=== PATIENT | male | born 1935 | race Caucasian/White ===

== ENCOUNTER 2016-06-21 07:31 | Observation (INO) | payer BC, OTHER ==
[~2016-06-21] VITALS: Ht 180.3 cm; Wt 71.1 kg
[~2016-06-21 07:31] MED LIST: AMLO-110 PO; AMR2 PO; ASPI-321 OR; ASPI81TA28 PO; CLOP1TAB15 PO; CLOP1TAB54 PO; GLC850 PO; GLIM4TAB2 PO; HYZ/10015 PO; JNV100 PO; LOSA100T26 PO; METF-383 PO; NITR0.4S UT; ROSU20TA PO; SITA100T3 PO
--- NOTE | 2016-06-21 08:04 | EMERGENCY ROOM VISIT NOTE ---
History Report prepared by Herrera: Shmuel Johnston Under the Supervision of: Dr. Wilbur Copeland M.D. First contact with patient: 07:51 Chief Complaint: SHORTNESS OF BREATH Stated Complaint: SOB History of Present Illness The patient is an 81 year old male who presents to the Emergency Room with complaints of intermittent shortness of breath that started a couple weeks ago. He notes that he has not had anything like this in the past. He was woken up during the night by this shortness of breath. The patient says that lying flat as well as exertion worsens his shortness of breath. He takes Nitro at night, and he says that it makes him breathe better. The patient denies any chest pain , coughing, back pain, urinary symptoms, melena, or hematochezia. He has not had any recent falls or weight gain. The patient had stents put in in [place] 20 years ago, per the patient's . 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 Lozano, and the patient is due to see the doctor in a few weeks. He goes every 6 months. The patient has a history of angioplasty and bypass surgery. The patient is on Plavix. He already took Aspirin this morning. He is diabetic. Source of History: patient, spouse/significant other Onset: A couple weeks ago Position: other (global - shortness of breath) Symptom Intensity: woke him up in middle of night Timing: intermittent Modifying Factors (Worsening): exertion, other (lying flat) Modifying Factors (Relieving): other (Nitro) Associated Symptoms: No back pain, No chest pain, No cough, No hematochezia , No melena, No urinary symptoms Note: No other associated symptoms noted. Review of Systems See HPI for pertinent positives & negatives. A total of 10 systems reviewed and were otherwise negative. Past Medical & Surgical Medical Problems: (1) CAD (coronary artery disease) (2) Dyslipidemia (3) HTN (hypertension) (4) SOB (shortness of breath) Surgical Problems: (1) History of appendectomy (2) S/P CABG x 3 (3) Stented coronary artery Old medical records were reviewed. Nurse's notes were reviewed and I agree with. Family History FH: heart disease Social History Smoking Status: Former Smoker Alcohol Use: none Drug Use: none Marital Status: Occupation Status: retired Current/Historical Medications Scheduled Amlodipine (Norvasc), 5 MG PO QAM Aspirin (Aspirin Adult Low Strengt), 81 MG OR DAILY Clopidogrel Bisulfate (Plavix), 75 MG PO DAILY Glimepiride (Amaryl *), 8 MG PO DAILY Hctz/Losartan (Hyzaar 25MG/100MG), 1 TAB PO DAILY Isosorbide Mononitrate Ext Rel (Imdur Ext Rel), 120 MG PO QAM Metformin Hcl (Glucophage), 850 MG PO TID Metoprolol Succ (Toprol Xl) (Toprol-Xl), 25 MG PO BID Nitroglycerin (Nitrostat), 0.4 MG UT PRN Ranolazine (Ranexa), 1 TAB PO BID Rosuvastatin Calcium (Crestor), 20 MG PO 5PM Sitagliptin Phosphate (Januvia), 100 MG PO QAM Allergies Coded Allergies: No Known Allergies (Verified , 06/21/16) Physical Exam Vital Signs Date Time Temp Pulse Resp B/P Pulse Ox O2 Delivery O2 Flow Rate FiO2 06/21/16 11:15 60 18 130/71 98 Room Air 06/21/16 11:03 63 06/21/16 09:52 61 18 115/72 95 Room Air 06/21/16 08:28 62 18 120/74 97 Room Air 06/21/16 07:58 98 Room Air 06/21/16 07:52 66 06/21/16 07:38 36.6 66 20 123/80 96 Room Air Physical Exam General: Well developed well nourished in no acute distress, breathing comfortably on room air. Normal speech HEENT: Normal cephalic atraumatic. Pupils are equal round and reactive to light. Extraocular movements are intact. Oropharynx is pink with moist mucous membranes. No swelling of the mouth lips or tongue. Neck: Supple with a midline trachea. No meningeal signs or stiffness, no JVD or bruits. No Stridor. Chest: Clear to auscultation bilaterally. No wheezes or rhonchi. No increased work of breathing. Heart: regular rate and rhythm. Abdomen: Soft nontender, nondistended without rebound guarding or rigidity. Extremities: No cyanosis clubbing or edema. No calf tenderness or assymetry Spine/Back. Non tender to palpation. No CVA tenderness Skin: Good turgor without rashes. Neurologic exam: Cranial nerves two through 12 are intact. Motor and sensation are intact and symmetrical throughout. Medical Decision & Procedures ER Provider Diagnostic Interpretation: X-ray results as stated below per interpretation by me and the radiologist: CHEST ONE VIEW PORTABLE CLINICAL HISTORY: Atypical chest pain and shortness of breath COMPARISON STUDY: 11/22/2011 FINDINGS: There are postsurgical changes of a midline sternotomy. There is no focal pulmonary consolidation. There is no failure. There are no pleural effusions. There is minimal basilar atelectasis. No pneumothorax is visualized.[ IMPRESSION: No active disease in the chest. Electronically signed by: Luis Whitaker M.D. 06/21/2016 8:24 AM Dictated Date/Time: 06/21/2016 8:24 AM Laboratory Results Test 06/21/16 07:57 06/21/16 08:12 06/21/16 08:35 06/21/16 09:25 Immature Granulocyte % (Auto) 0.2 % White Blood Count 6.26 K/uL (4.8-10.8) Red Blood Count 4.06 M/uL (4.7-6.1) Hemoglobin 13.3 g/dL (14.0-18.0) Hematocrit 37.0 % (42-52) Mean Corpuscular Volume 91.1 fL (80-100) Mean Corpuscular Hemoglobin 32.8 pg (25-34) Mean Corpuscular Hemoglobin Concent 35.9 g/dl (32-36) Platelet Count 131 K/uL (130-400) Mean Platelet Volume 10.0 fL (7.4-10.4) Neutrophils (%) (Auto) 62.5 % Lymphocytes (%) (Auto) 24.9 % Monocytes (%) (Auto) 10.2 % Eosinophils (%) (Auto) 1.9 % Basophils (%) (Auto) 0.3 % Neutrophils # (Auto) 3.91 K/uL (1.4-6.5) Lymphocytes # (Auto) 1.56 K/uL (1.2-3.4) Monocytes # (Auto) 0.64 K/uL (0.11-0.59) Eosinophils # (Auto) 0.12 K/uL (0-0.5) Basophils # (Auto) 0.02 K/uL (0-0.2) Immature Granulocyte # (Auto) 0.01 K/uL (0.00-0.02) Total Bilirubin 0.5 mg/dl (0.2-1) Direct Bilirubin 0.2 mg/dl (0-0.2) Aspartate Amino Transf (AST/SGOT) 21 U/L (15-37) Alanine Aminotransferase (ALT/SGPT) 23 U/L (12-78) Alkaline Phosphatase 49 U/L (45-117) Total Creatine Kinase 100 U/L (39-308) Total Protein 7.6 gm/dl (6.4-8.2) Albumin 3.7 gm/dl (3.4-5.0) Lipase 578 U/L (73-393) Bedside Troponin I 0.000 ng/ml (0-0.045) RO-Etz-W-Type Natriuretic Peptide 487 pg/ml (0-1800) Prothrombin Time 11.4 SECONDS (9.0-12.0) Prothromb Time International Ratio 1.1 (0.9-1.1) Activated Partial Thromboplast Time 27.6 SECONDS (21.0-31.0) Partial Thromboplastin Ratio 1.1 D-Dimer 270 ug/L FEU (0-500) Urine Color YELLOW Urine Appearance CLEAR (CLEAR) Urine pH 6.0 (4.5-7.5) Urine Specific [place] 1.020 (1.000-1.030) Urine Protein NEG (NEG) Urine Glucose (UA) 3+ (NEG) Urine Ketones NEG (NEG) Urine Occult Blood TRACE (NEG) Urine Nitrite NEG (NEG) Urine Bilirubin NEG (NEG) Urine Urobilinogen NEG (NEG) Urine Leukocyte Esterase TRACE (NEG) Urine WBC (Auto) 1-5 /hpf (0-5) Urine RBC (Auto) 5-10 /hpf (0-4) Urine Hyaline Casts (Auto) 0 /lpf (0-5) Urine Epithelial Cells (Auto) 0-5 /lpf (0-5) Urine Bacteria (Auto) NEG (NEG) Laboratory studies as stated above per my review. Medications Administered Medications (Trade) Dose Ordered Sig/Theodore Route Start Time Stop Time Status Last Admin Dose Admin Insulin Aspart (novoLOG ASPART) SLIDING SCALE If C... ACHS SC 06/21/16 11:00 07/21/16 10:59 06/21/16 17:34 2 UNITS ECG Indication: SOB/dyspnea Rate (beats per minute): 61 Rhythm: normal sinus Findings: no acute ischemic change, other (poor baseline, RBBB) Comparison ECG Date: no prior available ED Course 0752: Past medical records reviewed. The patient was evaluated in room A4B, and a complete history and physical examination were performed. 0949: I reevaluated the patient and he is resting comfortably. The patient verbally expressed understanding and agreement of the treatment plan. The patient will be evaluated for further treatment. 1005: I discussed the patient with Xiomy Al - she will evaluate the patient for further treatment. Medical Decision Differential diagnoses include: acute coronary syndrome, CHF, arrhythmia, electrolyte or metabolic abnormality. This patient comes in as described above. He does have a very complex cardiac history. He's been having shortness of breath and dyspnea on exertion. He did take his aspirin today. At present, he has no chest pain or shortness of breath. IV access established. EKG, chest x-ray, and multiple blood tests was obtained. His chest x-ray is clear and does not show any congestive heart failure. He has no peripheral edema. He has no significant electrolyte or metabolic abnormalities. EKG looks nonischemic at this point. I talked to the patient and his at length. I do think he needs to be admitted to rule out a cardiac event. He is a diabetic and has multiple cardiac risk factors as well. I did consult the [facility] hospitalist to see him for admission and contact cardiology consultation. Consults Time Called: 1000 Consulting Physician: Xiomy Al Returned Call: 1005 I discussed the patient with Xiomy Al - she will evaluate the patient for further treatment. Impression Primary Impression: Dyspnea on exertion Additional Impression: Cardiac disease Scribe Attestation The scribe's documentation has been prepared under my direction and personally reviewed by me in its entirety. I confirm that the note above accurately reflects all work, treatment, procedures, and medical decision making performed by me. Departure Information Dispostion Being Evaluated By Hospitalist Referrals Calin Mcleod M.D. (PCP) Patient Instructions My [facility] Problem Qualifiers
[2016-06-21 08:14] LABS: BASO % 0.3 %; BASO ABS # 0.02 K/uL (0-0.2); COMPLETE YES; EOS % 1.9 %; IG% 0.2 %; LYMPH % 24.9 %; LYMPH ABS # 1.56 K/uL (1.2-3.4); MEAN CELL VOLUME 91.1 fL (80-100); MEAN CORPUSCULAR HEMOGLOBIN 32.8 pg (25-34); MEAN CORPUSCULAR HGB CONC 35.9 g/dl (32-36); MONO % 10.2 %; NEUT % 62.5 %; PLATELET COUNT 131 K/uL (130-400); RED BLOOD COUNT 4.06 M/uL (4.7-6.1); WHITE BLOOD COUNT 6.26 K/uL (4.8-10.8)
--- NOTE | 2016-06-21 08:26 | DIAGNOSTIC IMAGING REPORT ---
CHEST ONE VIEW PORTABLE CLINICAL HISTORY: Atypical chest pain and shortness of breath COMPARISON STUDY: 11/22/2011 FINDINGS: There are postsurgical changes of a midline sternotomy. There is no focal pulmonary consolidation. There is no failure. There are no pleural effusions. There is minimal basilar atelectasis. No pneumothorax is visualized.[ IMPRESSION: No active disease in the chest. Electronically signed by: Luis Whitaker M.D. 06/21/2016 8:24 AM Dictated Date/Time: 06/21/2016 8:24 AM
[2016-06-21 08:32] LABS: BUN/CREATININE RATIO 16.4 (10-20); CREATININE 1.3 mg/dl (0.60-1.40); POTASSIUM 4.3 mmol/L (3.5-5.1)
[2016-06-21 08:48] LABS: CKMB/CK RATIO 1.8 (0-3.0)
[2016-06-21 09:13] LABS: INR 1.1 (0.9-1.1); PARTIAL THROMBOPLASTIN RATIO 1.1; PROTHROMBIN TIME (PATIENT) 11.4 SECONDS (9.0-12.0)
[2016-06-21 09:49] LABS: MANUAL MICROSCOPIC REQUIRED? NO; REVIEW REQ? NO; URINE APPEARANCE CLEAR (CLEAR); URINE BILIRUBIN NEG (NEG); URINE COLOR YELLOW; URINE EPITHELIAL CELL AUTO 0-5 /lpf (0-5); URINE NITRITE NEG (NEG); UROBILINOGEN NEG (NEG)
[2016-06-21] MEDS ORDERED: RANO500T PO (09:49)
[2016-06-21] MEDS ORDERED: GLUCAGON FOR INJ 1 MG VIAL SQ PRN (10:45)
[2016-06-21] MEDS ORDERED: ONDANSETRON INJ 2 MG/ML 2 ML VIAL IV PRN (10:45)
[2016-06-21] MEDS ORDERED: GLUCOSE 40% GEL 15 GM TUBE PO PRN (10:45)
[2016-06-21] MEDS ORDERED: GLUCOSE 10 TABS/TUBE PO PRN (10:45)
[2016-06-21] MEDS ORDERED: NITROGLYCERIN 0.4 MG SL PER TAB CHARGE SL PRN (10:45)
[2016-06-21] MEDS ORDERED: DEXTROSE 50% 50 ML SYR IV PRN (10:45)
[2016-06-21] MEDS ORDERED: ACETAMINOPHEN 325 MG TAB PO PRN (10:45)
[2016-06-21] MEDS ORDERED: HYZ/10015 PO (10:52)
[2016-06-21] MEDS ORDERED: METO25TA3 PO (10:52)
[2016-06-21] MEDS ORDERED: ISOS120T5 PO (10:52)
[2016-06-21 11:25] VITALS: O2SAT 98; Ht 180.3 cm; Wt 71.1 kg
--- NOTE | 2016-06-21 11:29 | History and Physical ---
History & Physical Date & Time of Service: Jun 21, 2016 at 10:53 Chief Complaint: SOB Primary Care Physician: Sylvia Rojas M.D. History of Present Illness Source: patient This is an 81 y/o male with PMHx of CAD s/p CABG and multiple stents, DM2, HTN and Dyslipidemia who presents to the ED c/o SOB x 2 weeks. Pt reports that 2 weeks ago he noticed intermittent worsening SOB. The SOB is worse with exertion and laying flat at night. He has tried taking nitro at home which gives him some relief. He has a strong FmHx of heart disease. His mother from [place] at the age of 40. Pt has a history of CAD s/p CABG x 3 in 2008 and stents placed 2009. Pt had heart catheterization in 2011 which showed stable disease and a negative stress test in 2014. He follows with cardiology, Dr. Lozano. Pt denies recent travel. Pt denies fever/chills, diaphoresis, chest pain, palpitations, syncope, abd pain, N/V, constipation, diarrhea, hematochezia, melena, bladder issues, LE edema, calf pain, lightheadedness/dizziness. In the ED, vitals are stable. Lipase 578. CXR is negative. Trop negative and EKG no acute ischemic changes. Pt is currently asymptomatic and will be admitted for further evaluation and treatment. Past Medical/Surgical History Medical Problems: (1) CAD (coronary artery disease) Status: Chronic (2) Dyslipidemia Status: Chronic (3) HTN (hypertension) Status: Chronic Surgical Problems: (1) History of appendectomy Status: Resolved (2) S/P CABG x 3 Permanent Comment: s/p CABG [facility] 2008 REYES-LAD, SVG-left circ, SVG-post desc art Status: Resolved (3) Stented coronary artery Permanent Comment: s/p PTCA 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)) Immunizations History of Influenza Vaccine: Yes History of Tetanus Vaccine?: No History of Pneumococcal: Yes Pneumococcal Date: Nov 20, 2004 History of Hepatitis B Vaccine: No Multi-Drug Resistant Organisms History of MDRO: No Allergies Coded Allergies: No Known Allergies (Verified , 06/21/16) Home Medications Scheduled Amlodipine (Norvasc), 5 MG PO QAM Aspirin (Aspirin Adult Low Strengt), 81 MG OR DAILY Clopidogrel Bisulfate (Plavix), 75 MG PO DAILY Glimepiride (Amaryl *), 8 MG PO DAILY Hctz/Losartan (Hyzaar 25MG/100MG), 1 TAB PO DAILY Isosorbide Mononitrate Ext Rel (Imdur Ext Rel), 120 MG PO QAM Metformin Hcl (Glucophage), 850 MG PO TID Metoprolol Succ (Toprol Xl) (Toprol-Xl), 25 MG PO BID Nitroglycerin (Nitrostat), 0.4 MG UT PRN Ranolazine (Ranexa), 1 TAB PO BID Rosuvastatin Calcium (Crestor), 20 MG PO 5PM Sitagliptin Phosphate (Januvia), 100 MG PO QAM Review of Systems Constitutional: No chills, No fatigue, No fever, No sweats, No weakness Eyes: No worsening of vision ENT: No hearing loss Respiratory: + dyspnea at rest, + dyspnea on exertion, + shortness of breath, No cough Cardiovascular: No chest pain, No claudication, No edema Abdomen: No GI bleeding, No constipation, No diarrhea, No nausea, No pain, No vomiting Musculoskeletal: No calf pain, No swelling Genitourinary - Male: No dysuria Neurologic: No weakness Psychiatric: No depression symptoms Endocrine: No fatigue Hematologic / Lymphatic: No abnormal bleeding/bruising Integumentary: No new/changing skin lesions Physical Exam Vital Signs Date Time Temp Pulse Resp B/P Pulse Ox O2 Delivery O2 Flow Rate FiO2 06/21/16 09:52 61 18 115/72 95 Room Air 06/21/16 08:28 62 18 120/74 97 Room Air 06/21/16 07:58 98 Room Air 06/21/16 07:52 66 06/21/16 07:38 36.6 66 20 123/80 96 Room Air General Appearance: WD/WN, no apparent distress, + pertinent finding (Pt is laying in bed with at bedside ) Head: normocephalic, atraumatic Eyes: normal inspection ENT: hearing grossly normal Neck: supple Respiratory/Chest: chest non-tender, lungs clear, normal breath sounds, no respiratory distress Cardiovascular: regular rate, rhythm, no edema, no murmur Abdomen/GI: normal bowel sounds, non tender, soft Back: normal inspection Extremities/Musculoskelatal: normal inspection, no calf tenderness, no pedal edema Neurologic/Psych: alert, normal mood/affect, oriented x 3 Skin: normal color, warm/dry Diagnostics Laboratory Results Results Past 24 Hours Test 06/21/16 07:57 06/21/16 07:58 06/21/16 08:12 06/21/16 08:35 Range/Units White Blood Count 6.26 4.8-10.8 K/uL Red Blood Count 4.06 4.7-6.1 M/uL Hemoglobin 13.3 14.0-18.0 g/dL Hematocrit 37.0 42-52 % Mean Corpuscular Volume 91.1 80-100 fL Mean Corpuscular Hemoglobin 32.8 25-34 pg Mean Corpuscular Hemoglobin Concent 35.9 32-36 g/dl Platelet Count 131 130-400 K/uL Mean Platelet Volume 10.0 7.4-10.4 fL Neutrophils (%) (Auto) 62.5 % Lymphocytes (%) (Auto) 24.9 % Monocytes (%) (Auto) 10.2 % Eosinophils (%) (Auto) 1.9 % Basophils (%) (Auto) 0.3 % Neutrophils # (Auto) 3.91 1.4-6.5 K/uL Lymphocytes # (Auto) 1.56 1.2-3.4 K/uL Monocytes # (Auto) 0.64 0.11-0.59 K/uL Eosinophils # (Auto) 0.12 0-0.5 K/uL Basophils # (Auto) 0.02 0-0.2 K/uL RDW Standard Deviation 45.8 36.4-46.3 fL RDW Coefficient of Variation 13.7 11.5-14.5 % Immature Granulocyte % (Auto) 0.2 % Immature Granulocyte # (Auto) 0.01 0.00-0.02 K/uL Sodium Level 135 136-145 mmol/L Potassium Level 4.3 3.5-5.1 mmol/L Chloride Level 102 98-107 mmol/L Carbon Dioxide Level 22 21-32 mmol/L Anion Gap 11.0 3-11 mmol/L Blood Urea Nitrogen 21 7-18 mg/dl Creatinine 1.30 0.60-1.40 mg/dl Est Creatinine Clear Calc Drug Dose 47.5 ml/min Estimated GFR () 59.7 Estimated GFR (Non- 51.5 BUN/Creatinine Ratio 16.4 10-20 Random Glucose 289 70-99 mg/dl Calcium Level 9.0 8.5-10.1 mg/dl Total Bilirubin 0.5 0.2-1 mg/dl Direct Bilirubin 0.2 0-0.2 mg/dl Aspartate Amino Transf (AST/SGOT) 21 15-37 U/L Alanine Aminotransferase (ALT/SGPT) 23 12-78 U/L Alkaline Phosphatase 49 45-117 U/L Total Creatine Kinase 100 39-308 U/L Creatine Kinase MB 1.8 0.5-3.6 ng/ml Creatine Kinase MB Ratio 1.8 0-3.0 Total Protein 7.6 6.4-8.2 gm/dl Albumin 3.7 3.4-5.0 gm/dl Lipase 578 73-393 U/L Bedside Troponin I 0.000 0-0.045 ng/ml VO-Fbc-C-Type Natriuretic Peptide 487 0-1800 pg/ml Prothrombin Time 11.4 9.0-12.0 SECONDS Prothromb Time International Ratio 1.1 0.9-1.1 Activated Partial Thromboplast Time 27.6 21.0-31.0 SECONDS Partial Thromboplastin Ratio 1.1 Test 06/21/16 09:25 Range/Units Urine Color YELLOW Urine Appearance CLEAR CLEAR Urine pH 6.0 4.5-7.5 Urine Specific [place] 1.020 1.000-1.030 Urine Protein NEG NEG Urine Glucose (UA) 3+ NEG Urine Ketones NEG NEG Urine Occult Blood TRACE NEG Urine Nitrite NEG NEG Urine Bilirubin NEG NEG Urine Urobilinogen NEG NEG Urine Leukocyte Esterase TRACE NEG Urine WBC (Auto) 1-5 0-5 /hpf Urine RBC (Auto) 5-10 0-4 /hpf Urine Hyaline Casts (Auto) 0 0-5 /lpf Urine Epithelial Cells (Auto) 0-5 0-5 /lpf Urine Bacteria (Auto) NEG NEG Microbiology Results 06/21/16 Urine Culture, Frida Batch Pending Diagnostic Radiology CXR IMPRESSION: No active disease in the chest. EKG EKG: NSR at 61 bpm with RBBB and no acute ischemic changes; No change when compared to previous EKG from 11/22/11 Impression Assessment and Plan EXERTIONAL SOB R/O ACS VS. PE pt presented with 2 weeks of SOB that is worse with exertion and laying flat; denies any chest pain; h/o CAD s/p CABG and stents -admit observation to telemetry -RFs include +FmHx, h/o CAD, DM 2, HTN, Dyslipidemia, age and sex -cardiac cath 2011: stable disease and stress echo 2014 negative for inducible ischemia -EKG shows no acute ischemic changes; repeat EKG PRN chest pain and in AM -Initial troponin is negative; continue to monitor with serial cardiac enzymes q6h -check ddimer to r/o PE -obtain echo to r/o cardiac wall motion abnormalities -cont ASA, BB, statin, Imdur and Ranexa -consult cardiology, Dr. Lozano-pending input -pt is currently chest pain free -continue to monitor CHRONICALLY ELEVATED LIPASE -lipase 578 (500-550 last admission 2011) -monitor DM 2 -recent A1C 7.0; repeat in AM -hold metformin, Januvia and glimepiride -start ISS -monitor BSG AC HS HTN -stable -cont Norvasc, Hyzaar and metoprolol -monitor DYSLIPIDEMIA -cont statin DVT PROPHYLAXIS -subq heparin CODE STATUS -FULL CODE per discussion with patient upon admission DISPO Observation status until further workup is complete. Pt seen in collaboration with Dr. Chambers. Please see his addendum for further details. Thanks! VTE Prophylaxis VTE Risk Assessment Done? Y/N: Yes Risk Level: Moderate
[2016-06-21 11:35] VITALS: BP 167/69; PULSE 63; TEMP 36.4; O2SAT 99
[2016-06-21] MEDS ORDERED: IV FLUIDS COMPLETED PRN (13:45)
[2016-06-21] MEDS: INSULIN ASPART 100 UNITS/ML 3 ML PEN SC SCH ×3 (13:55→20:38)
[2016-06-21] MEDS: HEPARIN SOD 5000 UNIT/0.5 ML CARP SQ SCH ×2 (13:56→20:40)
[2016-06-21 14:41] VITALS: BP 126/73; PULSE 55; TEMP 36.4; O2SAT 97
[2016-06-21] MEDS ORDERED: RANITIDINE HCL 150 MG TAB PO ONE (16:31)
--- NOTE | 2016-06-21 19:28 | CARDIOLOGY CONSULTATION ---
DATE OF CONSULTATION: 06/21/2016 CONSULTATION REQUESTED BY: Dr. Chambers. REASON FOR CONSULTATION: Shortness of breath. HISTORY OF PRESENT ILLNESS: Mr. Garcia is a very pleasant 81-year-old gentleman who normally follows with Dr. Azael Lozano of our cardiology practice who presented to [facility] Emergency Department late in the evening of 06/20/2016 with a complaint of shortness of breath. The patient states that for the last week or so he has noticed that he has been developing some shortness of breath with exertion and also upon lying down. He states it not consistent and does not happen every time he exerts himself, but occasionally he will develop shortness of breath and will take a nitroglycerin for it. This is different than his normal anginal equivalent of chest discomfort. He states that once he takes nitroglycerin, shortness of breath has completely resolved. He has also noticed that he has been having some shortness of breath upon lying down in the evening as well. He states when he lays down he just gets short of breath and if he sits upright he will feel the shortness of breath will resolve after a moment or so. Again, he denies any chest pain with this and denies experiencing any palpitations, lightheadedness, dizziness, or syncope. He has been taking his medications as directed without issue. He denies any other complaints of abdominal distention, lower extremity edema or cough. He has been following his dietary restrictions and otherwise feeling well. PAST SURGICAL HISTORY: 1. Coronary artery bypass grafting surgery x3 in 2008 with a REYES to the LAD, vein graft to the circumflex and vein graft to the PDA. 2. Followup PCI with drug-eluting stents to the circumflex, obtuse marginal and right coronary artery in 2009 with a patent REYES graft. 3. Cardiac catheterization in 2011 showing no progressive disease. 4. Colonoscopy. 5. Appendectomy. 6. Mohs surgery. MEDICAL ILLNESSES: 1. Complex coronary artery disease. 2. Stable class 2 angina. 3. Hypertension. 4. Hyperlipidemia. FAMILY HISTORY: Noncontributory. SOCIAL HISTORY: Remote tobacco use history. Denies any alcohol or recreational drug use. He is and lives at home with his . REVIEW OF SYSTEMS: As per HPI, all other review of systems reviewed and negative at this time. ALLERGIES: No known drug allergies. MEDICATIONS AN OUTPATIENT: 1. Ranexa 500 mg b.i.d. 2. Amlodipine 5 mg daily. 3. Toprol-XL 50 mg daily. 4. Aspirin 81 mg daily. 5. Plavix 75 mg daily. 6. Imdur 120 mg daily. 7. Crestor 20 mg daily. 8. Losartan/hydrochlorothiazide 100/25 mg daily. 9. Metformin 3 times a day. 10. Amaryl daily. 11. Sublingual nitroglycerin p.r.n. PHYSICAL EXAMINATION: VITALS: Temperature 36.4, pulse 55, respiratory rate 12, blood pressure 126/73. GENERAL: Awake, alert, oriented x3, in no acute distress while lying flat. HEENT: Normocephalic, atraumatic. Pupils equal, round, and reactive to light and accommodation. Extraocular muscles intact. Anicteric sclerae. Moist mucous membranes. NECK: No JVD, no bruit. CARDIOVASCULAR: Regular. Positive S4. Normal S1 and S2. No S3. Slight 2/6 holosystolic ejection murmur greatest at the left sternal border, fifth intercostal space midclavicular line with radiation to the left axilla. No rubs. PULMONARY: Clear to auscultation bilaterally. No rales, rhonchi, or wheezing. ABDOMEN: Bowel sounds x4, soft. No rebound, guarding, tenderness. No organomegaly. EXTREMITIES: No clubbing, cyanosis or edema. +2 pedal pulses bilaterally. SKIN: Warm and dry. TEST RESULTS: A 12-lead EKG performed in the Emergency Department independently reviewed at this time shows normal sinus rhythm at 61 beats per minute with right bundle branch block, anterior T-wave inversions, no significant change compared to previous study. LABORATORY STUDIES OF SIGNIFICANCE: Troponin negative x2. CPK of 100. Chest x-ray independently reviewed shows no overt pulmonary vascular congestion or pleural effusions. IMPRESSION: 1. Dyspnea with exertion. 2. Orthopnea. 3. Coronary artery disease. 4. Hypertension. RECOMMENDATIONS: It was my pleasure to see Mr. Garcia in consultation today. Given the patient's history, I would suspect that he will be volume overloaded suffering from at least pulmonary vascular congestion; however, his exam proves otherwise. So at this point a 2D echocardiogram will be performed to evaluate for any new wall motion abnormalities or valvular pathology that may be the cause of his dyspnea. At the same time, I will increase his Ranexa to 1000 mg b.i.d. His blood pressure will not tolerate any further titration of his amlodipine. All of his other medications will be continued. I will also start him on treatment for GERD as reflux is a possibility for his shortness of breath given it happens when lying flat and will likely complete an ischemic evaluation as an outpatient with Lexiscan nuclear stress testing if all other testing comes back unremarkable.
[2016-06-21 19:40] VITALS: BP 149/76; PULSE 56; TEMP 36.8; O2SAT 99
[2016-06-21] MEDS: RANOLAZINE 500 MG ER TAB PO SCH (20:40)
[2016-06-21] MEDS: METOPROLOL SUCC 25MG EXT REL TAB PO SCH (20:40)
[2016-06-21] MEDS: PANTOprazole SOD 40 MG TAB PO SCH (20:40)
[2016-06-21] MEDS: RANITIDINE HCL 150 MG TAB PO SCH (20:40)
[2016-06-21] MEDS ORDERED: RANOLAZINE 500 MG ER TAB PO SCH (21:00)
[2016-06-21 23:32] VITALS: BP 110/61; PULSE 52; TEMP 36.3; O2SAT 96
[2016-06-22] VITALS (7 sets, daily range): BP systolic 123–168; BP diastolic 68–77; PULSE 55–66; TEMP 36.3–36.7; O2SAT 96–98
[2016-06-22 06:14] LABS: HEMATOCRIT 38.8 % (42-52); MEAN CELL VOLUME 92.4 fL (80-100); MEAN CORPUSCULAR HEMOGLOBIN 32.4 pg (25-34); MEAN CORPUSCULAR HGB CONC 35.1 g/dl (32-36); MEAN PLATELET VOLUME 9.7 fL (7.4-10.4); PLATELET COUNT 127 K/uL (130-400)
[2016-06-22 06:27] LABS: CREATININE 1.2 mg/dl (0.60-1.40)
[2016-06-22] MEDS: HEPARIN SOD 5000 UNIT/0.5 ML CARP SQ SCH ×2 (06:27→14:00)
[2016-06-22 06:28] LABS: BUN/CREATININE RATIO 16.6 (10-20); CALCIUM 8.8 mg/dl (8.5-10.1); POTASSIUM 4.1 mmol/L (3.5-5.1)
[2016-06-22 07:19] LABS: ESTIMATED AVERAGE GLUCOSE 174 mg/dl; HA1C FLAG Normal (Normal)
[2016-06-22] MEDS: RANITIDINE HCL 150 MG TAB PO SCH (08:52)
[2016-06-22] MEDS: PANTOprazole SOD 40 MG TAB PO SCH (08:52)
[2016-06-22] MEDS: RANOLAZINE 500 MG ER TAB PO SCH (08:53)
[2016-06-22] MEDS: METOPROLOL SUCC 25MG EXT REL TAB PO SCH (08:54)
[2016-06-22] MEDS: INSULIN ASPART 100 UNITS/ML 3 ML PEN SC SCH ×2 (08:59→13:04)
[2016-06-22] MEDS ORDERED: ISOSORBIDE MONONITRATE 60 MG TABCR PO SCH (09:00)
[2016-06-22] MEDS ORDERED: LOSARTAN/HCTZ 50-12.5 EA TAB PO SCH (09:00)
[2016-06-22] MEDS ORDERED: CLOPIDOGREL BISULFATE 75 MG TAB PO SCH (09:00)
[2016-06-22] MEDS ORDERED: ROSUVASTATIN CALCIUM 20 MG TAB PO SCH (09:00)
[2016-06-22] MEDS ORDERED: AMLODIPINE BESYLATE 5 MG TAB PO SCH (09:00)
[2016-06-22] MEDS ORDERED: ASPIRIN 81 MG ECTAB PO SCH (09:00)
--- NOTE | 2016-06-22 09:20 | ECHOCARDIOGRAM REPORT ---
*NOTICE TO RECEIVING CONSTITUTION PARTY AGENCY This information is strictly Confidential and protected under [place] law. [place] law prohibits you from making any further disclosure of this information unless further disclosure is expressly permitted by the written consent of the person to whom it pertains or is authorized by law. A general authorization for the release of medical or other information is not sufficient for this purpose. Hospital accepts no responsibility if the information is made available to any other person, INCLUDING THE PATIENT. Interpretation Summary * Name: JENNA ROJAS Study Date: 06/22/2016 07:32 AM BP: 168/77 mmHg * Patient Location: [facility]\S\N282\S\2 HR: 58 * : 1935 (M/d/yyyy) Gender: Male Height: 71 in * Age: 81 yrs Ethnicity: [place] Weight: 163 lb * Ordering Physician: Xiomy Dorsey * Referring Physician: Self, Referred * Performed By: Ruby Lemus RCS * * Reason For Study: SOB * BSA: 1.9 m2 * -- Conclusions -- * No significant change compared to previous study of 09/15/09. * Normal LV chamber size with moderate concentric LVH. * Normal LV systolic function, EF 55-60%. * Mild to moderate hypokinesis of the basal inferoseptal/inferior sawant, otherwise, normal wall motion. * Grade I diastolic dysfunction. * The right ventricular cavity size is normal (basal dimension <4.2 cm in right ventricular apical 4-chamber view). Mildly reduced RV systolic function by TAPSE. * Aortic valve sclerosis moderate, without significant aortic valvular stenosis. * Mild left atrial enlargment. Procedure Details * A complete two-dimensional transthoracic echocardiogram was performed (2D, M-mode, Doppler and color flow Doppler). Left Ventricle * The left ventricle is normal in size. * There is moderate concentric left ventricular hypertrophy. * Left ventricular systolic function is normal. * Ejection Fraction = 55-60%. * Mild to moderate hypokinesis of the basal inferoseptal/inferior sawant, otherwise, normal wall motion. Right Ventricle * The right ventricular cavity size is normal (basal dimension <4.2 cm in right ventricular apical 4-chamber view). * The right ventricular systolic function is mildly reduced. Atria * The left atrium is mildly dilated. * Right atrial size is normal. * No ASD detected; PFO is not assessed. Mitral Valve * The mitral valve leaflets appear thickened, but open well. * There is no mitral valve stenosis. * There is no mitral regurgitation noted. Tricuspid Valve * The tricuspid valve is normal in structure and function. Aortic Valve * The aortic valve is trileaflet. * Aortic valve sclerosis moderate, without significant aortic valvular stenosis. * There is no significant aortic regurgitation. Pulmonic Valve * The pulmonary valve is not well seen, but the Doppler examination is normal without significant regurgitation or stenosis. Great Vessels * The aortic root and proximal ascending aorta are normal sized. Pericardium/Pleural * There is no pericardial effusion. Left Ventricular Diastolic Function * Grade I diastolic dysfunction, (abnormal relaxation pattern). MMode 2D Measurements and Calculations IVSd 1.5 cm IVSs 2.2 cm LVIDd 4.0 cm LVIDs 2.5 cm LVPWd 1.4 cm LVPWs 1.7 cm IVS/LVPW 1.1 FS 38.4 % EDV(Teich) 70.3 ml ESV(Teich) 21.6 ml EF(Teich) 69.2 % EDV(cubed) 64.3 ml ESV(cubed) 15.1 ml EF(cubed) 76.6 % % IVS thick 43.1 % % LVPW thick 27.3 % LV mass(C)d 219.9 grams LV mass(C)dI 113.7 grams/m\S\2 LV mass(C)s 204.8 grams LV mass(C)sI 105.9 grams/m\S\2 SV(Teich) 48.7 ml SI(Teich) 25.2 ml/m\S\2 SV(cubed) 49.3 ml SI(cubed) 25.5 ml/m\S\2 Ao root diam 4.6 cm Ao root area 16.4 cm\S\2 LA dimension 4.1 cm LA/Ao 0.90 LVOT diam 2.0 cm LVOT area 3.2 cm\S\2 LVAd ap4 32.9 cm\S\2 LVLd ap4 7.9 cm EDV(MOD-sp4) 111.7 ml EDV(sp4-el) 116.9 ml LVAs ap4 22.2 cm\S\2 LVLs ap4 7.0 cm ESV(MOD-sp4) 57.4 ml ESV(sp4-el) 60.0 ml EF(MOD-sp4) 48.6 % EF(sp4-el) 48.6 % LVAd ap2 29.5 cm\S\2 LVLd ap2 7.9 cm EDV(MOD-sp2) 93.0 ml EDV(sp2-el) 94.0 ml LVAs ap2 17.4 cm\S\2 LVLs ap2 6.7 cm ESV(MOD-sp2) 38.2 ml ESV(sp2-el) 38.3 ml EF(MOD-sp2) 59.0 % EF(sp2-el) 59.2 % LVLd %diff 0.27 % EDV(MOD-bp) 100.4 ml LVLs %diff -3.84 % ESV(MOD-bp) 46.2 ml EF(MOD-bp) 53.9 % SV(MOD-sp4) 54.3 ml SI(MOD-sp4) 28.1 ml/m\S\2 SV(MOD-sp2) 54.9 ml SI(MOD-sp2) 28.4 ml/m\S\2 SV(MOD-bp) 54.1 ml SI(MOD-bp) 28.0 ml/m\S\2 SV(sp4-el) 56.9 ml SI(sp4-el) 29.4 ml/m\S\2 SV(sp2-el) 55.7 ml SI(sp2-el) 28.8 ml/m\S\2 Doppler Measurements and Calculations MV E max fatou 70.1 cm/sec MV A max fatou 84.1 cm/sec MV E/A 0.83 MV P1/2t max fatou 79.3 cm/sec MV P1/2t 66.4 msec MVA(P1/2t) 3.3 cm\S\2 MV dec slope 349.9 cm/sec\S\2 MV dec time 0.21 sec Ao V2 max 125.8 cm/sec Ao max PG 6.3 mmHg Ao max PG (full) 4.2 mmHg CHYNA(V,A) 1.9 cm\S\2 CHYNA(V,D) 1.9 cm\S\2 LV V1 max PG 2.1 mmHg LV V1 max 72.8 cm/sec PA V2 max 71.8 cm/sec PA max PG 2.1 mmHg TR max fatou 256.9 cm/sec
--- NOTE | 2016-06-22 11:20 | Cardiology Follow-Up ---
Subjective Subjective Date of Service: Jun 22, 2016. Pt evaluation today including: conversation w/ patient, conversation w/ family , physical exam, chart review, lab review, review of studies, review of inpatient medication list Additional Details: Pt seen and examined, states that he feels good. No orthopnea last night, ambulating halls without complaint. Denies cp, sob, palpitations, lightheadedness or dizziness. Tele reviewed: sinus rhythm without arrhythmia or significant ectopy. Review of Systems Respiratory: No cough, No dyspnea at rest, No dyspnea on exertion, No hemoptysis, No problem reported, No see HPI, No shortness of breath, No sputum, No wheezing Cardiac: No PND, No chest pain, No claudication, No edema, No orthopnea, No palpitations, No problem reported, No see HPI Objective Vital Signs Last Vital Signs Documentation Date Time Temp Pulse Resp B/P Pulse Ox O2 Delivery O2 Flow Rate FiO2 06/22/16 08:00 98 Room Air 06/22/16 07:12 36.4 58 18 168/77 Physical Exam: General Appearance: WD/WN, no apparent distress Eyes: bilateral eyes EOMI, bilateral eyes PERRL, bilateral eyes normal inspection ENT: normal ENT inspection, hearing grossly normal, pharynx normal Neck: supple, no adenopathy, thyroid normal, no JVD, no carotid bruits, trachea midline Respiratory/Chest: chest non-tender, lungs clear, normal breath sounds, no respiratory distress, no accessory muscle use Cardiovascular: regular rate, rhythm, no edema, no JVD, no murmur, + gallop/S4 Abdomen: normal bowel sounds, non tender, soft, no organomegaly Extremities: normal range of motion, non-tender, normal inspection, no pedal edema, no calf tenderness 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 dyspnea on exertion/orthopnea resolved no sign of volume overload no sign of active ischemia no new wall motion abnormality on echo ?progression of chronic stable angina ranexa increased to 1000mg bid, would d/c to home on this dose would also cont protonix 40mg daily for possible reflux cont all other home meds at previous doses will arrange for Lexiscan nuclear stress as outpatient and f/u with Dr. Lozano /Spring Cantor PA-C in our office in 1-2 weeks ok to d/c to home
--- NOTE | 2016-06-22 14:54 | Progress Note ---
Medicine Progress Note Date & Time of Visit: Jun 22, 2016 at 14:29. Subjective Pt was seen and examined Sitting in bed very comfortable with in the room very pleasant couple Pt said that he feels fine he said that he does not have any sob today he said that he feels back to his baseline He denies any chest pain, palpitation, dizziness and sob Objective Last 8 Hrs Date Time Temp Pulse Resp B/P Pulse Ox O2 Delivery O2 Flow Rate FiO2 06/22/16 12:00 98 Room Air 06/22/16 11:30 36.7 66 16 123/68 98 Room Air 06/22/16 08:00 98 Room Air 06/22/16 07:12 36.4 58 18 168/77 98 Physical Exam: General- very pleasant, no acute distress Head- atraumatic Eyes- PERRL, EOMI ENT- oropharynx clear Neck- supple, no JVD Lungs- clear to auscultation and percussion Heart- regular rhythm; no murmur Abdomen- normal bowel sounds, soft Extremities- no pretibial edema, no calf tenderness Neuro- alert, oriented x 3; PERRL, EOMI; Skin- warm & dry Laboratory Results: Last 24 Hours Test 06/21/16 16:23 06/21/16 19:54 06/21/16 20:00 06/21/16 20:19 Bedside Glucose 140 mg/dl 107 mg/dl Creatine Kinase MB Ratio Creatine Kinase MB 1.6 ng/ml Troponin I < 0.015 ng/ml Test 06/22/16 05:25 06/22/16 07:27 06/22/16 11:35 White Blood Count 5.70 K/uL Red Blood Count 4.20 M/uL Hemoglobin 13.6 g/dL Hematocrit 38.8 % Mean Corpuscular Volume 92.4 fL Mean Corpuscular Hemoglobin 32.4 pg Mean Corpuscular Hemoglobin Concent 35.1 g/dl RDW Standard Deviation 46.5 fL RDW Coefficient of Variation 13.9 % Platelet Count 127 K/uL Mean Platelet Volume 9.7 fL Sodium Level 139 mmol/L Potassium Level 4.1 mmol/L Chloride Level 102 mmol/L Carbon Dioxide Level 29 mmol/L Anion Gap 8.0 mmol/L Blood Urea Nitrogen 20 mg/dl Creatinine 1.20 mg/dl Est Creatinine Clear Calc Drug Dose 50.7 ml/min Estimated GFR () 65.8 Estimated GFR (Non- 56.8 BUN/Creatinine Ratio 16.6 Random Glucose 137 mg/dl Estimated Average Glucose 174 mg/dl Hemoglobin A1c 7.7 % Calcium Level 8.8 mg/dl Bedside Glucose 241 mg/dl 232 mg/dl Assessment & Plan SHORTNESS OF BREATH - Need to R/O ACS, PE -Possible related to Reflux since symptoms happened when he lies down. - No clinical sign for PE because Saturation well on RA, no tachycardia, D- Dimer wnl -cardiac cath 2012: stable disease and stress echo 2014 negative for inducible ischemia -EKG shows no acute ischemic changes on admission - Repeat EKG in am shown no significant ST changes -No Sign of fluid overload -troponin negative -cont ASA, BB, statin, Imdur - Ranexa increase by Cardiology to 1000mg BID -Asymptomatic, SOB resolved -Case discussed with bulmaro Trejo to discharge home today -He will follow up with his cardiology Dr. Lozano/ Spring Cantor PA-C in 1-2 weeks - -Cardiology will arrange for Lexiscan nuclear stress as outpatient - Will give a trial of PPI ECHO showed No significant change compared to previous study of 09/15/09. * Normal LV chamber size with moderate concentric LVH. * Normal LV systolic function, EF 55-60%. * Mild to moderate hypokinesis of the basal inferoseptal/inferior sawant, otherwise, normal wall motion. * Grade I diastolic dysfunction. * The right ventricular cavity size is normal (basal dimension <4.2 cm in right ventricular apical 4-chamber view). Mildly reduced RV systolic function by TAPSE. * Aortic valve sclerosis moderate, without significant aortic valvular stenosis. * Mild left atrial enlargment. CHRONICALLY ELEVATED LIPASE -lipase 578 (500-550 last admission 2011) -Asymptomatic DM 2 -HbA1C 7.7 (06/22/16) -resume metformin, Januvia and glimepiride -Continue monitor BSG AC HS HTN -stable -cont Norvasc, Hyzaar and metoprolol DYSLIPIDEMIA -cont statin DVT PROPHYLAXIS -subq heparin during the hospital course CODE STATUS FULL CODE Discharge planning: home Consultants: Cardiology Procedures: Echocardiogram Interpretation Summary * Name: JENNA ROJAS Study Date: 06/22/2016 07:32 AM BP: 168/77 mmHg * Patient Location: [facility]\S\N282\S\2 HR: 58 * : 1935 (M/d/yyyy) Gender: Male Height: 71 in * Age: 81 yrs Ethnicity: [place] Weight: 163 lb * Ordering Physician: Xiomy Dorsey * Referring Physician: Self, Referred * Performed By: Ruby Lemus RCS * * Reason For Study: SOB * BSA: 1.9 m2 * -- Conclusions -- * No significant change compared to previous study of 09/15/09. * Normal LV chamber size with moderate concentric LVH. * Normal LV systolic function, EF 55-60%. * Mild to moderate hypokinesis of the basal inferoseptal/inferior sawant, otherwise, normal wall motion. * Grade I diastolic dysfunction. * The right ventricular cavity size is normal (basal dimension <4.2 cm in right ventricular apical 4-chamber view). Mildly reduced RV systolic function by TAPSE. * Aortic valve sclerosis moderate, without significant aortic valvular stenosis. * Mild left atrial enlargment. Procedure Details * A complete two-dimensional transthoracic echocardiogram was performed (2D, M-mode, Doppler and color flow Doppler). Left Ventricle * The left ventricle is normal in size. * There is moderate concentric left ventricular hypertrophy. * Left ventricular systolic function is normal. * Ejection Fraction = 55-60%. * Mild to moderate hypokinesis of the basal inferoseptal/inferior sawant, otherwise, normal wall motion. Right Ventricle * The right ventricular cavity size is normal (basal dimension <4.2 cm in right ventricular apical 4-chamber view). * The right ventricular systolic function is mildly reduced. Atria * The left atrium is mildly dilated. * Right atrial size is normal. * No ASD detected; PFO is not assessed. Mitral Valve * The mitral valve leaflets appear thickened, but open well. * There is no mitral valve stenosis. * There is no mitral regurgitation noted. Tricuspid Valve * The tricuspid valve is normal in structure and function. Aortic Valve * The aortic valve is trileaflet. * Aortic valve sclerosis moderate, without significant aortic valvular stenosis. * There is no significant aortic regurgitation. Pulmonic Valve * The pulmonary valve is not well seen, but the Doppler examination is normal without significant regurgitation or stenosis. Great Vessels * The aortic root and proximal ascending aorta are normal sized. Pericardium/Pleural * There is no pericardial effusion. Left Ventricular Diastolic Function * Grade I diastolic dysfunction, (abnormal relaxation pattern). Current Inpatient Medications: Current Inpatient Medications Medications (Trade) Dose Ordered Sig/Theodore Route Start Time Stop Time Status Last Admin Dose Admin Heparin Sodium (Porcine) (Heparin Sq 5000 Unit/0.5ml) 5,000 unit Q8 SQ 06/21/16 14:00 07/21/16 13:59 06/22/16 06:27 5,000 UNIT Acetaminophen (Tylenol Tab) 650 mg Q4H PRN PO 06/21/16 10:45 07/21/16 10:44 Ondansetron HCl (Zofran Inj) 4 mg Q6H PRN IV 06/21/16 10:45 07/21/16 10:44 Nitroglycerin (Nitrostat Tab) 0.4 mg UD PRN SL 06/21/16 10:45 07/21/16 10:44 Insulin Aspart (novoLOG ASPART) SLIDING SCALE If C... ACHS SC 06/21/16 11:00 07/21/16 10:59 06/22/16 13:04 5 UNITS Glucose (Glucose 40% Gel) 15-30 GRAMS 15 GRAMS... UD PRN PO 06/21/16 10:45 07/21/16 10:44 Glucose (Glucose Chew Tab) 4-8 Tablets 4 Tabl... UD PRN PO 06/21/16 10:45 07/21/16 10:44 Dextrose (Dextrose 50% 50ML Syringe) 25-50ML OF 50% DW IV FOR... UD PRN IV 06/21/16 10:45 07/21/16 10:44 Glucagon (Glucagon Inj) 1 mg UD PRN SQ 06/21/16 10:45 07/21/16 10:44 Amlodipine Besylate (Norvasc Tab) 5 mg QAM PO 06/22/16 09:00 07/22/16 08:59 06/22/16 08:55 5 MG Aspirin (Ecotrin Tab) 81 mg DAILY PO 06/22/16 09:00 07/22/16 08:59 06/22/16 08:53 81 MG Clopidogrel Bisulfate (plAVix TAB) 75 mg DAILY PO 06/22/16 09:00 07/22/16 08:59 06/22/16 08:56 75 MG HCTZ/Losartan Potassium (Hyzaar 50-12.5 Tab) 1 tab DAILY PO 06/22/16 09:00 07/22/16 08:59 06/22/16 08:55 1 TAB Isosorbide Mononitrate (Imdur Ext Rel Tab) 120 mg QAM PO 06/22/16 09:00 07/22/16 08:59 06/22/16 08:53 120 MG Metoprolol Succinate (Toprol Xl Tab) 25 mg BID PO 06/21/16 21:00 07/21/16 20:59 06/22/16 08:54 25 MG Rosuvastatin Calcium (Crestor Tab) 20 mg DAILY PO 06/22/16 09:00 07/22/16 08:59 06/22/16 08:55 20 MG Miscellaneous (Iv Fluids Completed) 1 ea PRN PRN N/A 06/21/16 13:45 06/21/17 13:44 Ranolazine (Ranexa ER Tab) 1,000 mg BID PO 06/21/16 21:00 07/21/16 20:59 06/22/16 08:53 1,000 MG Pantoprazole Sodium (Protonix Tab) 40 mg DAILY PO 06/23/16 09:00 07/23/16 08:59
[2016-06-22] MEDS ORDERED: PRT40 PO (15:00)
[2016-06-22] MEDS ORDERED: RANO1000 PO ×2 (15:00→15:02)
--- NOTE | 2016-06-22 15:06 | Discharge Instructions ---
Discharge Instructions Admission Reason for Admission: Shortness Of Breath Discharge Discharge Diagnosis / Problem: Shorness of breath, DM type 2, Hypertension Discharge Goals Goal(s): Decrease discomfort, Improve function, Improve disease control Activity Recommendations Activity Limitations: resume your previous activity (as tolerated) . Instructions / Follow-Up Instructions / Follow-Up Please follow up with your Primary care provider Dr. Rojas on Jun 25 @ 1030am Follow up with cardiology Dr. Lozano/ Spring Cantor PA-C in 1-2 weeks Current Hospital Diet Patient's current hospital diet: AHA Diet (Heart Healthy), Diabetes Type 2 Diet Discharge Diet Recommended Diet: Diabetes Type 2 Diet Pending Studies Studies pending at discharge: no Laboratory Results Hemoglobin A1c Test 06/22/16 05:25 Range/Units Estimated Average Glucose 174 mg/dl Hemoglobin A1c 7.7 H 4.5-5.6 % Medical Emergencies . Who to Call and When: Medical Emergencies: If at any time you feel your situation is an emergency, please call 911 immediately. . Non-Emergent Contact Non-Emergency issues call your: Primary Care Provider Call Non-Emergent contact if: you have any medication questions . . "Provider Documentation" section prepared by Dimitris Chambers. VTE Core Measure Inpt VTE Proph given/why not?: Unfractionated heparin SQ
[2016-06-23] MEDS ORDERED: PANTOprazole SOD 40 MG TAB PO SCH (09:00)
--- NOTE | 2016-06-27 09:45 | Discharge Summary ---
Discharge Summary Admission Date: Jun 21, 2016 at 11:15 Discharge Date: Jun 22, 2016 Discharge Disposition: Home Principal Diagnosis: Dyspnea Secondary Diagnoses/Problems: Shorness of breath DM type 2 Hypertension Dyslipidemia Chronic elevated lipase Procedures: Echocardiogram Interpretation Summary * Name: JENNA ROJAS Study Date: 06/22/2016 07:32 AM BP: 168/77 mmHg * Patient Location: [facility]\\S\\[id number]\\[id number]\\[id number] HR: 58 * : 1935 (M/d/yyyy) Gender: Male Height: 71 in * Age: 81 yrs Ethnicity: [place] Weight: 163 lb * Ordering Physician: Xiomy Dorsey * Referring Physician: Self, Referred * Performed By: Ruby Lemus RCS * * Reason For Study: SOB * BSA: 1.9 m2 * -- Conclusions -- * No significant change compared to previous study of 09/15/09. * Normal LV chamber size with moderate concentric LVH. * Normal LV systolic function, EF 55-60%. * Mild to moderate hypokinesis of the basal inferoseptal/inferior sawant, otherwise, normal wall motion. * Grade I diastolic dysfunction. * The right ventricular cavity size is normal (basal dimension <4.2 cm in right ventricular apical 4-chamber view). Mildly reduced RV systolic function by TAPSE. * Aortic valve sclerosis moderate, without significant aortic valvular stenosis. * Mild left atrial enlargment. Procedure Details * A complete two-dimensional transthoracic echocardiogram was performed (2D, M-mode, Doppler and color flow Doppler). Left Ventricle * The left ventricle is normal in size. * There is moderate concentric left ventricular hypertrophy. * Left ventricular systolic function is normal. * Ejection Fraction = 55-60%. * Mild to moderate hypokinesis of the basal inferoseptal/inferior sawant, otherwise, normal wall motion. Right Ventricle * The right ventricular cavity size is normal (basal dimension <4.2 cm in right ventricular apical 4-chamber view). * The right ventricular systolic function is mildly reduced. Atria * The left atrium is mildly dilated. * Right atrial size is normal. * No ASD detected; PFO is not assessed. Mitral Valve * The mitral valve leaflets appear thickened, but open well. * There is no mitral valve stenosis. * There is no mitral regurgitation noted. Tricuspid Valve * The tricuspid valve is normal in structure and function. Aortic Valve * The aortic valve is trileaflet. * Aortic valve sclerosis moderate, without significant aortic valvular stenosis. * There is no significant aortic regurgitation. Pulmonic Valve * The pulmonary valve is not well seen, but the Doppler examination is normal without significant regurgitation or stenosis. Great Vessels * The aortic root and proximal ascending aorta are normal sized. Pericardium/Pleural * There is no pericardial effusion. Left Ventricular Diastolic Function * Grade I diastolic dysfunction, (abnormal relaxation pattern). Consultations: Cardiology Medication Reconciliation New Medications: Pantoprazole (Pantoprazole Sodium) 40 Mg Tab 40 MG PO DAILY for 30 Days, #30 TAB Ranolazine (Ranexa) 1,000 Mg Tab 1 TAB PO BID for 30 Days, #60 TAB Continued Medications: Amlodipine (Norvasc) 5 Mg Tab 5 MG PO QAM, TAB Aspirin (Aspirin Adult Low Strengt) 81 Mg Tab 81 MG OR DAILY Clopidogrel Bisulfate (Plavix) 75 Mg Tab 75 MG PO DAILY, TAB Glimepiride (Amaryl *) 4 Mg Tab 8 MG PO DAILY, TAB 4 mg tablets. Take 2 tablets (8 mg) each morning. Hctz/Losartan (Hyzaar 25MG/100MG) 1 Ea Tab 1 TAB PO DAILY for 30 Days, #30 TAB 5 Refills Isosorbide Mononitrate Ext Rel (Imdur Ext Rel) 120 Mg Ertab 120 MG PO QAM, TAB Metformin Hcl (Glucophage) 850 Mg Tab 850 MG PO TID Metoprolol Succ (Toprol Xl) (Toprol-Xl) 25 Mg Tabcr 25 MG PO BID, #30 TAB Nitroglycerin (Nitrostat) 0.4 Mg Sub 0.4 MG UT PRN, SUB Rosuvastatin Calcium (Crestor) 20 Mg Tab 20 MG PO 5PM, TAB Sitagliptin Phosphate (Januvia) 100 Mg Tab 100 MG PO QAM, TAB Discontinued Medications: Ranolazine (Ranexa) 500 Mg Tab 1 TAB PO BID for 30 Days, #60 TAB 3 Refills Admission Information HPI (per Admitting provider): This is an 81 y/o male with PMHx of CAD s/p CABG and multiple stents, DM2, HTN and Dyslipidemia who presents to the ED c/o SOB x 2 weeks. Pt reports that 2 weeks ago he noticed intermittent worsening SOB. The SOB is worse with exertion and laying flat at night. He has tried taking nitro at home which gives him some relief. He has a strong FmHx of heart disease. His mother from [place] at the age of 40. Pt has a history of CAD s/p CABG x 3 in 2008 and stents placed 2009. Pt had heart catheterization in 2011 which showed stable disease and a negative stress test in 2014. He follows with cardiology, Dr. Lozano. Pt denies recent travel. Pt denies fever/chills, diaphoresis, chest pain, palpitations, syncope, abd pain, N/V, constipation, diarrhea, hematochezia, melena, bladder issues, LE edema, calf pain, lightheadedness/dizziness. In the ED, vitals are stable. Lipase 578. CXR is negative. Trop negative and EKG no acute ischemic changes. Pt is currently asymptomatic and will be admitted for further evaluation and treatment. Physical Exam (per Admitting): General Appearance: WD/WN, no apparent distress, + pertinent finding (Pt is laying in bed with at bedside ) Head: normocephalic, atraumatic Eyes: normal inspection ENT: hearing grossly normal Neck: supple Respiratory/Chest: chest non-tender, lungs clear, normal breath sounds, no respiratory distress Cardiovascular: regular rate, rhythm, no edema, no murmur Abdomen/GI: normal bowel sounds, non tender, soft Back: normal inspection Extremities/Musculoskelatal: normal inspection, no calf tenderness, no pedal edema Neurologic/Psych: alert, normal mood/affect, oriented x 3 Skin: normal color, warm/dry Hospital Course SHORTNESS OF BREATH - Need to R/O ACS, PE -Possible related to Reflux since symptoms happened when he lies down. - No clinical sign for PE because Saturation well on RA, no tachycardia, D- Dimer wnl -cardiac cath 2011: stable disease and stress echo 2014 negative for inducible ischemia -EKG shows no acute ischemic changes on admission - Repeat EKG in am shown no significant ST changes -No Sign of fluid overload -troponin negative -cont ASA, BB, statin, Imdur - Ranexa increase by Cardiology to 1000mg BID -Asymptomatic, SOB resolved -Case discussed with Dr. Escalante, bulmaro to discharge home today -He will follow up with his cardiology Dr. Lozano/ Spring Cantor PA-C in 1-2 weeks - -Cardiology will arrange for Lexiscan nuclear stress as outpatient - Will give a trial of PPI ECHO showed No significant change compared to previous study of 09/15/09. * Normal LV chamber size with moderate concentric LVH. * Normal LV systolic function, EF 55-60%. * Mild to moderate hypokinesis of the basal inferoseptal/inferior sawant, otherwise, normal wall motion. * Grade I diastolic dysfunction. * The right ventricular cavity size is normal (basal dimension <4.2 cm in right ventricular apical 4-chamber view). Mildly reduced RV systolic function by TAPSE. * Aortic valve sclerosis moderate, without significant aortic valvular stenosis. * Mild left atrial enlargment. CHRONICALLY ELEVATED LIPASE -lipase 578 (500-550 last admission 2011) -Asymptomatic DM 2 -HbA1C 7.7 (06/22/16) -resume metformin, Januvia and glimepiride -Continue monitor BSG AC HS HTN -stable -cont Norvasc, Hyzaar and metoprolol DYSLIPIDEMIA -cont statin DVT PROPHYLAXIS -subq heparin during the hospital course CODE STATUS FULL CODE Total time spent on discharge = 35 minutes This includes examination of the patient, discharge planning, medication reconciliation, and communication with other providers. Discharge Instructions Discharge Instructions Admission Reason for Admission: Shortness Of Breath Discharge Discharge Diagnosis / Problem: Shorness of breath, DM type 2, Hypertension Discharge Goals Goal(s): Decrease discomfort, Improve function, Improve disease control Activity Recommendations Activity Limitations: resume your previous activity (as tolerated) . Instructions / Follow-Up Instructions / Follow-Up Please follow up with your Primary care provider Dr. Rojas on Jun 25 @ 1030am Follow up with cardiology Dr. Lozano/ Spring Cantor PA-C in 1-2 weeks Current Hospital Diet Patient's current hospital diet: AHA Diet (Heart Healthy), Diabetes Type 2 Diet Discharge Diet Recommended Diet: Diabetes Type 2 Diet Pending Studies Studies pending at discharge: no Laboratory Results Hemoglobin A1c Test 06/22/16 05:25 Range/Units Estimated Average Glucose 174 mg/dl Hemoglobin A1c 7.7 H 4.5-5.6 % Medical Emergencies . Who to Call and When: Medical Emergencies: If at any time you feel your situation is an emergency, please call 911 immediately. . Non-Emergent Contact Non-Emergency issues call your: Primary Care Provider Call Non-Emergent contact if: you have any medication questions . . "Provider Documentation" section prepared by Dimitris Chambers. VTE Core Measure Inpt VTE Proph given/why not?: Unfractionated heparin SQ Additional Copies To Sylvia Rojas M.D.
== END 2016-06-22 16:15 | disposition home or self-care (01) ==
LOC: ENRESERVDT → ENRESERVTM → C.EDB 07:32 → C.MED 11:15
PROVIDERS: ADMIT Internal Medicine; ATTEND Internal Medicine
DX: R06.02 Shortness of breath (principal); E11.9 Type 2 diabetes mellitus without complications; E78.5 Hyperlipidemia, unspecified; I10 Essential (primary) hypertension; I25.10 Atherosclerotic heart disease of native coronary artery without angina pectoris; Z87.891 Personal history of nicotine dependence; Z95.1 Presence of aortocoronary bypass graft; R74.8 Abnormal levels of other serum enzymes

== ENCOUNTER 2016-12-26 19:34 | Observation (INO) | payer BC ==
[~2016-12-26] VITALS: Ht 180.3 cm; Wt 73.7 kg
[~2016-12-26 19:34] MED LIST changes: -ASPI81TA28 PO; -CLOP1TAB15 PO; -GLC850 PO; -GLIM4TAB2 PO; +ISOS120T5 PO; -JNV100 PO; -LOSA100T26 PO; +METO25TA3 PO; +PRT40 PO; +RANO1000 PO
[2016-12-26 20:34] LABS: COMPLETE YES; HEMATOCRIT 27.2 % (42-52); IG% 0.4 %; LYMPH % 26.6 %; LYMPH ABS # 1.87 K/uL (1.2-3.4); MEAN CELL VOLUME 95.8 fL (80-100); MEAN CORPUSCULAR HEMOGLOBIN 33.8 pg (25-34); MEAN CORPUSCULAR HGB CONC 35.3 g/dl (32-36); MEAN PLATELET VOLUME 9.1 fL (7.4-10.4); MONO % 10.4 %; NEUT % 61.6 %; PLATELET COUNT 179 K/uL (130-400); RED BLOOD COUNT 2.84 M/uL (4.7-6.1); WHITE BLOOD COUNT 7.04 K/uL (4.8-10.8)
[2016-12-26 20:43] LABS: INR 1.1 (0.9-1.1); PARTIAL THROMBOPLASTIN RATIO 1.2; PROTHROMBIN TIME (PATIENT) 11.3 SECONDS (9.0-12.0)
[2016-12-26 20:51] LABS: BUN/CREATININE RATIO 22.7 (10-20); CALCIUM 10.5 mg/dl (8.5-10.1); CREATININE 2.1 mg/dl (0.60-1.40); POTASSIUM 4.3 mmol/L (3.5-5.1)
--- NOTE | 2016-12-26 20:59 | DIAGNOSTIC IMAGING REPORT ---
LEFT VENOUS DOPP LOWER EXT UNILAT CLINICAL HISTORY: EVALUATE FOR DVT pain. Edema. TECHNIQUE: Venous Doppler COMPARISON STUDY: None FINDINGS: Normal venous Doppler. 5 x 2 cm fluid collection anterior to the patella possibly representing hematoma. IMPRESSION: 1. Normal venous Doppler. 2. 5 x 2 cm complex fluid collection anterior to the patella possibly a posttraumatic hematoma. The above report was generated using voice recognition software. It may contain grammatical, syntax or spelling errors. Electronically signed by: Cesar Munoz M.D. 12/26/2016 8:58 PM Dictated Date/Time: 12/26/2016 8:57 PM
[2016-12-26] MEDS ORDERED: SODIUM CHLORIDE 0.9% 1000ML 1,000 ML IV STA (21:10)
[2016-12-26] MEDS ORDERED: NITROGLYCERIN 0.4 MG SL PER TAB CHARGE UT SCH (22:15)
--- NOTE | 2016-12-26 22:25 | History and Physical ---
History & Physical Date & Time of Service: Dec 26, 2016 at 22:21 Chief Complaint: Fall, L Knee Pain And Swelling Primary Care Physician: Sylvia Rojas M.D. History of Present Illness 81 year old M with past medical history of stents 10 years ago with history of dual antiplatelet therapy who is on medications for hypertension and diabetes. Patient had traumatic fall while walking on steps as he was carrying a load in his arms about 5 days ago. Patient experienced trauma to left leg. He did not seek medical care until today for swelling of left knee. On exam there is swollen left knee with some swelling around thigh to mid lower leg. He denies of fevers at home. He denies chest pain or shortness of breath. His opposite leg is without edema. Past Medical/Surgical History Medical Problems: (1) CAD (coronary artery disease) Status: Chronic (2) Diabetes mellitus Status: Chronic (3) Dyslipidemia Status: Chronic (4) HTN (hypertension) Status: Chronic Surgical Problems: (1) History of appendectomy Status: Resolved (2) S/P CABG x 3 Permanent Comment: s/p CABG [facility] [place] 2008 REYES-LAD, SVG-left circ, SVG-post desc art Status: Resolved (3) Stented coronary artery Permanent Comment: s/p PTCA [facility] [place] 2009 left circ OM + RCA with drug-eluting stents Status: Resolved Family History FH: heart disease Social History Smoking Status: Never Smoker Drug Use: none Marital Status: Housing status: lives with family Occupational Status: employed Immunizations History of Influenza Vaccine: Yes History of Tetanus Vaccine?: No History of Pneumococcal: Yes Pneumococcal Date: Nov 20, 2004 History of Hepatitis B Vaccine: No Multi-Drug Resistant Organisms History of MDRO: No Allergies Coded Allergies: No Known Allergies (Verified , 12/26/16) Home Medications Scheduled Amlodipine (Norvasc), 5 MG PO QAM Aspirin (Aspirin Adult Low Strengt), 81 MG OR DAILY Clopidogrel Bisulfate (Plavix), 75 MG PO DAILY Glimepiride (Amaryl *), 8 MG PO DAILY Hctz/Losartan (Hyzaar 25MG/100MG), 1 TAB PO DAILY Isosorbide Mononitrate Ext Rel (Imdur Ext Rel), 120 MG PO QAM Metformin Hcl (Glucophage), 850 MG PO TID Metoprolol Succ (Toprol Xl) (Toprol-Xl), 25 MG PO BID Nitroglycerin (Nitrostat), 0.4 MG UT PRN Ranolazine (Ranexa), 1 TAB PO BID Rosuvastatin Calcium (Crestor), 20 MG PO 5PM Sitagliptin Phosphate (Januvia), 100 MG PO QAM Physical Exam Vital Signs Date Time Temp Pulse Resp B/P (MAP) Pulse Ox O2 Delivery O2 Flow Rate FiO2 12/26/16 22:01 131/83 12/26/16 21:40 69 24 100 12/26/16 21:32 158/77 12/26/16 21:11 65 12/26/16 21:10 65 14 99 12/26/16 21:05 98 Room Air 12/26/16 21:05 65 18 133/73 96 Room Air 12/26/16 19:41 36.5 67 16 131/72 99 Room Air Diagnostics Laboratory Results Results Past 24 Hours Test 12/26/16 20:10 Range/Units White Blood Count 7.04 4.8-10.8 K/uL Red Blood Count 2.84 4.7-6.1 M/uL Hemoglobin 9.6 14.0-18.0 g/dL Hematocrit 27.2 42-52 % Mean Corpuscular Volume 95.8 80-100 fL Mean Corpuscular Hemoglobin 33.8 25-34 pg Mean Corpuscular Hemoglobin Concent 35.3 32-36 g/dl Platelet Count 179 130-400 K/uL Mean Platelet Volume 9.1 7.4-10.4 fL Neutrophils (%) (Auto) 61.6 % Lymphocytes (%) (Auto) 26.6 % Monocytes (%) (Auto) 10.4 % Eosinophils (%) (Auto) 1.0 % Basophils (%) (Auto) 0.0 % Neutrophils # (Auto) 4.34 1.4-6.5 K/uL Lymphocytes # (Auto) 1.87 1.2-3.4 K/uL Monocytes # (Auto) 0.73 0.11-0.59 K/uL Eosinophils # (Auto) 0.07 0-0.5 K/uL Basophils # (Auto) 0.00 0-0.2 K/uL RDW Standard Deviation 45.4 36.4-46.3 fL RDW Coefficient of Variation 13.0 11.5-14.5 % Immature Granulocyte % (Auto) 0.4 % Immature Granulocyte # (Auto) 0.03 0.00-0.02 K/uL Prothrombin Time 11.3 9.0-12.0 SECONDS Prothromb Time International Ratio 1.1 0.9-1.1 Activated Partial Thromboplast Time 30.1 21.0-31.0 SECONDS Partial Thromboplastin Ratio 1.2 Sodium Level 137 136-145 mmol/L Potassium Level 4.3 3.5-5.1 mmol/L Chloride Level 101 98-107 mmol/L Carbon Dioxide Level 26 21-32 mmol/L Anion Gap 10.0 3-11 mmol/L Blood Urea Nitrogen 48 7-18 mg/dl Creatinine 2.10 0.60-1.40 mg/dl Est Creatinine Clear Calc Drug Dose 26.0 ml/min Estimated GFR () 33.4 Estimated GFR (Non- 28.9 BUN/Creatinine Ratio 22.7 10-20 Random Glucose 110 70-99 mg/dl Calcium Level 10.5 8.5-10.1 mg/dl Total Bilirubin 0.6 0.2-1 mg/dl Aspartate Amino Transf (AST/SGOT) 22 15-37 U/L Alanine Aminotransferase (ALT/SGPT) 21 12-78 U/L Alkaline Phosphatase 42 45-117 U/L Total Creatine Kinase 134 39-308 U/L Total Protein 7.9 6.4-8.2 gm/dl Albumin 4.0 3.4-5.0 gm/dl Globulin 3.9 2.5-4.0 gm/dl Albumin/Globulin Ratio 1.0 0.9-2 Diagnostic Radiology LEFT VENOUS DOPP LOWER EXT UNILAT CLINICAL HISTORY: EVALUATE FOR DVT pain. Edema. TECHNIQUE: Venous Doppler COMPARISON STUDY: None FINDINGS: Normal venous Doppler. 5 x 2 cm fluid collection anterior to the patella possibly representing hematoma. IMPRESSION: 1. Normal venous Doppler. 2. 5 x 2 cm complex fluid collection anterior to the patella possibly a posttraumatic hematoma. EKG none available will order Impression Assessment and Plan Problem List by review of systems Left knee/leg swelling -hematoma of left knee, pulses are intact ultrasound has been performed and results unremarkable except for hematoma -can get X ray of left knee for further evaluation for fractures -may consider MRI for further evaluation if needed -may need orthopedic consultation for knee arthroscopy Cardiac -history of CAD with stents -is on dual antiplatelets, continue aspirin and plavix from home dose however may need to be held if hematoma continues to worsen and whether needs orthopedic interventions -Continue home dose Beta yudi and statin -Continue home dose antihypertensives of HCTZ/Losartan -Continue home dose isosorbide and ranexa Diabetes -hold home dose glimperide, metformin, Januvia while in inpatient setting -sliding scale insulin, fingerstick glucose POC for now -check HbA1c /Renal -trend creatinine, obtain urinalysis for KIKI vs CKD Level of Care Med/Surg Resuscitation Status FULL RESUSCITATION VTE Prophylaxis VTE Risk Assessment Done? Y/N: Yes Risk Level: Moderate
[2016-12-26 22:36] VITALS: Ht 180.3 cm; Wt 73.7 kg
[2016-12-26] MEDS ORDERED: GLUCAGON FOR INJ 1 MG VIAL SQ PRN (23:00)
[2016-12-26] MEDS ORDERED: GLUCOSE 40% GEL 15 GM TUBE PO PRN (23:00)
[2016-12-26] MEDS ORDERED: GLUCOSE 10 TABS/TUBE PO PRN (23:00)
[2016-12-26] MEDS ORDERED: DEXTROSE 50% 50 ML SYR IV PRN (23:00)
[2016-12-26] MEDS ORDERED: IV FLUIDS COMPLETED PRN (23:30)
[2016-12-27] VITALS: BP 142/75; PULSE 70; TEMP 36.4; O2SAT 98
[2016-12-27 01:39] LABS: URINE APPEARANCE CLEAR (CLEAR); URINE BILIRUBIN NEG (NEG); URINE COLOR YELLOW; URINE EPITHELIAL CELL AUTO 20-30 /lpf (0-5); URINE NITRITE NEG (NEG); URINE SPECIFIC GRAVITY 1.018 (1.000-1.030); UROBILINOGEN NEG (NEG)
[2016-12-27 01:41] LABS: MANUAL MICROSCOPIC REQUIRED? NO; REVIEW REQ? NO
--- NOTE | 2016-12-27 01:49 | EMERGENCY ROOM VISIT NOTE ---
History Report prepared by Herrera: Denisse Quan Under the Supervision of: Dr. Murtaza Marin M.D. First contact with patient: 19:52 Chief Complaint: FALL Stated Complaint: FALL, L KNEE PAIN AND SWELLING History of Present Illness The patient is an 81 year old male who presents to the Emergency Room with complaints of an episode of a fall occurring four days ago. The patient states when he fell, his iglesias took the main impact. He states that he went to [facility] and they referred him here. He states that they told him that nothing was fractured. The patient notes his knee swelled up immediately. He states that he has iced it with no relief. He currently rates his pain as a 4/10 in severity. The patient reports that he doesn't have a history of falls and notes that he is on blood thinners. Pt denies LOC, headache, fevers, chills, diaphoresis, visual changes, neck pain , chest pain, breathing difficulties, nausea, vomiting, abdominal pain, back pain, melena, hematochezia, urinary symptoms, numbness, weakness, lymphadenopathy, rash, or other complaints. Source of History: patient Onset: four days ago Position: other (global) Symptom Intensity: 4/10 Quality: other (global) Timing: other (episode) Note: The patient complains of left leg pain. Review of Systems See HPI for pertinent positives and negatives. A total of ten systems were reviewed and were otherwise negative. Past Medical & Surgical Medical Problems: (1) CAD (coronary artery disease) (2) Diabetes mellitus (3) Dyslipidemia (4) HTN (hypertension) (5) SOB (shortness of breath) Surgical Problems: (1) History of appendectomy (2) S/P CABG x 3 (3) Stented coronary artery Family History FH: heart disease Social History Smoking Status: Never Smoker Alcohol Use: none Drug Use: none Marital Status: Housing Status: lives with significant other Occupation Status: employed Current/Historical Medications Scheduled Amlodipine (Norvasc), 5 MG PO QAM Aspirin (Aspirin Adult Low Strengt), 81 MG OR DAILY Clopidogrel Bisulfate (Plavix), 75 MG PO DAILY Glimepiride (Amaryl *), 8 MG PO DAILY Hctz/Losartan (Hyzaar 25MG/100MG), 1 TAB PO DAILY Isosorbide Mononitrate Ext Rel (Imdur Ext Rel), 120 MG PO QAM Metformin Hcl (Glucophage), 850 MG PO TID Metoprolol Succ (Toprol Xl) (Toprol-Xl), 25 MG PO BID Nitroglycerin (Nitrostat), 0.4 MG UT PRN Ranolazine (Ranexa), 1 TAB PO BID Rosuvastatin Calcium (Crestor), 20 MG PO 5PM Sitagliptin Phosphate (Januvia), 100 MG PO QAM Allergies Coded Allergies: No Known Allergies (Verified , 12/26/16) Physical Exam Vital Signs Date Time Temp Pulse Resp B/P (MAP) Pulse Ox O2 Delivery O2 Flow Rate FiO2 12/26/16 22:06 71 21 100 12/26/16 22:01 131/83 12/26/16 21:40 69 24 100 12/26/16 21:32 158/77 12/26/16 21:11 65 12/26/16 21:10 65 14 99 12/26/16 21:05 98 Room Air 12/26/16 21:05 65 18 133/73 96 Room Air 12/26/16 19:41 36.5 67 16 131/72 99 Room Air Physical Exam GENERAL: Awake, alert, well-appearing, in no distress HENT: Normocephalic, atraumatic. Oropharynx unremarkable. EYES: Normal conjunctiva. Sclera non-icteric. NECK: Supple. No nuchal rigidity. FROM. No JVD. RESPIRATORY: Clear to auscultation. CARDIAC: Regular rate, normal rhythm. Extremities warm and well perfused. Pulses equal. ABDOMEN: Soft, non-distended. No tenderness to palpation. No rebound or guarding. No masses. RECTAL: Deferred. MUSCULOSKELETAL: Chest examination reveals no tenderness. The back is symmetrical on inspection without obvious abnormality. There is no CVA tenderness to palpation. No joint edema. LOWER EXTREMITIES: Calves are equal size bilaterally and non-tender. No discoloration. LLE edema with ecchymosis. No pain with passive ROM. Tenderness anteriorly about knee joint. NEURO: Normal sensorium. No sensory or motor deficits noted. SKIN: No rash or jaundice noted. Medical Decision & Procedures ER Provider Diagnostic Interpretation: Radiology results as stated below per my review and radiologist interpretation: LEFT VENOUS DOPP LOWER EXT UNILAT CLINICAL HISTORY: EVALUATE FOR DVT pain. Edema. TECHNIQUE: Venous Doppler COMPARISON STUDY: None FINDINGS: Normal venous Doppler. 5 x 2 cm fluid collection anterior to the patella possibly representing hematoma. IMPRESSION: 1. Normal venous Doppler. 2. 5 x 2 cm complex fluid collection anterior to the patella possibly a posttraumatic hematoma. The above report was generated using voice recognition software. It may contain grammatical, syntax or spelling errors. Electronically signed by: Cesar Munoz M.D. 12/26/2016 8:58 PM Dictated Date/Time: 12/26/2016 8:57 PM Laboratory Results 12/26/16 20:10 Red Blood Count 2.84, Mean Corpuscular Volume 95.8, Mean Corpuscular Hemoglobin 33.8, Mean Corpuscular Hemoglobin Concent 35.3, Mean Platelet Volume 9.1, Neutrophils (%) (Auto) 61.6, Lymphocytes (%) (Auto) 26.6, Monocytes (%) (Auto) 10.4, Eosinophils (%) (Auto) 1.0, Basophils (%) (Auto) 0.0, Neutrophils # (Auto ) 4.34, Lymphocytes # (Auto) 1.87, Monocytes # (Auto) 0.73, Eosinophils # (Auto ) 0.07, Basophils # (Auto) 0.00 12/26/16 20:10 Test 12/26/16 20:10 White Blood Count 7.04 K/uL (4.8-10.8) Red Blood Count 2.84 M/uL (4.7-6.1) Hemoglobin 9.6 g/dL (14.0-18.0) Hematocrit 27.2 % (42-52) Mean Corpuscular Volume 95.8 fL (80-100) Mean Corpuscular Hemoglobin 33.8 pg (25-34) Mean Corpuscular Hemoglobin Concent 35.3 g/dl (32-36) Platelet Count 179 K/uL (130-400) Mean Platelet Volume 9.1 fL (7.4-10.4) Neutrophils (%) (Auto) 61.6 % Lymphocytes (%) (Auto) 26.6 % Monocytes (%) (Auto) 10.4 % Eosinophils (%) (Auto) 1.0 % Basophils (%) (Auto) 0.0 % Neutrophils # (Auto) 4.34 K/uL (1.4-6.5) Lymphocytes # (Auto) 1.87 K/uL (1.2-3.4) Monocytes # (Auto) 0.73 K/uL (0.11-0.59) Eosinophils # (Auto) 0.07 K/uL (0-0.5) Basophils # (Auto) 0.00 K/uL (0-0.2) RDW Standard Deviation 45.4 fL (36.4-46.3) RDW Coefficient of Variation 13.0 % (11.5-14.5) Immature Granulocyte % (Auto) 0.4 % Immature Granulocyte # (Auto) 0.03 K/uL (0.00-0.02) Prothrombin Time 11.3 SECONDS (9.0-12.0) Prothromb Time International Ratio 1.1 (0.9-1.1) Activated Partial Thromboplast Time 30.1 SECONDS (21.0-31.0) Partial Thromboplastin Ratio 1.2 Anion Gap 10.0 mmol/L (3-11) Est Creatinine Clear Calc Drug Dose 26.0 ml/min Estimated GFR () 33.4 Estimated GFR (Non- 28.9 BUN/Creatinine Ratio 22.7 (10-20) Calcium Level 10.5 mg/dl (8.5-10.1) Total Bilirubin 0.6 mg/dl (0.2-1) Aspartate Amino Transf (AST/SGOT) 22 U/L (15-37) Alanine Aminotransferase (ALT/SGPT) 21 U/L (12-78) Alkaline Phosphatase 42 U/L (45-117) Total Creatine Kinase 134 U/L (39-308) Total Protein 7.9 gm/dl (6.4-8.2) Albumin 4.0 gm/dl (3.4-5.0) Globulin 3.9 gm/dl (2.5-4.0) Albumin/Globulin Ratio 1.0 (0.9-2) Laboratory results reviewed by me Medications Administered Medications (Trade) Dose Ordered Sig/Theodore Route Start Time Stop Time Status Last Admin Dose Admin Sodium Chloride 1,000 ml @ 200 mls/hr Q5H STAT IV 12/26/16 21:10 12/27/16 02:09 12/26/16 21:28 200 MLS/HR ED Course 1956: The patient was evaluated in room B4B. A complete history and physical exam was performed. I reviewed the imaging from [facility]. It was a 3 view of knee and 2 view of the tib fib. They revealed no fracture or dislocation, but soft tissue swelling is noted. 2109: Ordered NSS 1000 ml @ 200 mls/hr IV. 2111: I reevaluated the patient and updated him on his test results. He verbalized agreement and understanding of the future treatment plan. 2123: Discussed the patient's case with Dr. Mo. The patient will be evaluated for further treatment and disposition. Medical Decision Triage Nursing notes reviewed. The patient's presentation and history were concerning for fall and leg swelling. Etiologies such as hematoma, DVT, joint effusion, infection, trauma, muscular, lymphedema, idiopathic, as well as others were entertained. Patient was evaluated. I did review the imaging from the urgent care center there is no fracture. The patient has significant swelling. Ultrasound did not reveal any evidence of DVT. Hematoma noted. The patient does not have signs of compartment syndrome. The patient's leg was elevated. Laboratory testing revealed a moderate anemia. The patient has dropped over 4 g. His creatinine was also noted to rise significantly from 1.2-2.1. The patient's total CK was unremarkable. The patient was gently hydrated. Because of the anemia and acute kidney injury he will need further evaluation and management in the hospital. I did discuss the case with the [facility] service. The patient was evaluated in the Emergency Room for further management. Medication Reconcilliation Current Medication List: was personally reviewed by me Blood Pressure Screening Patient's blood pressure: Elevated blood pressure Blood pressure disposition: Elevated BP felt to be situational Consults Time Called: 2115 Consulting Physician: Dr. Mo Returned Call: 2123 Discussed the patient's case with Dr. Mo. The patient will be evaluated for further treatment and disposition. Impression Primary Impression: Traumatic hematoma of left lower leg Additional Impressions: KIKI (acute kidney injury) Anemia Scribe Attestation The scribe's documentation has been prepared under my direction and personally reviewed by me in its entirety. I confirm that the note above accurately reflects all work, treatment, procedures, and medical decision making performed by me. Departure Information Dispostion Being Evaluated By Hospitalist Referrals Sylvia Rojas M.D. (PCP) Patient Instructions My [facility] Problem Qualifiers
[2016-12-27 06:10] LABS: BASO % 0.2 %; BASO ABS # 0.01 K/uL (0-0.2); EOS % 1.2 %; HEMATOCRIT 24.2 % (42-52); IG% 0.3 %; LYMPH ABS # 1.51 K/uL (1.2-3.4); MEAN CELL VOLUME 94.5 fL (80-100); MEAN CORPUSCULAR HEMOGLOBIN 33.6 pg (25-34); MEAN CORPUSCULAR HGB CONC 35.5 g/dl (32-36); MEAN PLATELET VOLUME 9.1 fL (7.4-10.4); MONO % 11.5 %; NEUT % 60.8 %; PLATELET COUNT 155 K/uL (130-400); RED BLOOD COUNT 2.56 M/uL (4.7-6.1); WHITE BLOOD COUNT 5.81 K/uL (4.8-10.8)
[2016-12-27 06:40] LABS: COMPLETE YES
[2016-12-27 06:51] LABS: BUN/CREATININE RATIO 24.6 (10-20); CALCIUM 9.1 mg/dl (8.5-10.1); CREATININE 1.6 mg/dl (0.60-1.40); POTASSIUM 4.2 mmol/L (3.5-5.1)
[2016-12-27 06:54] LABS: ALB/GLOB RATIO 0.9 (0.9-2)
[2016-12-27 07:12] VITALS: BP 113/65; PULSE 73; TEMP 36.7; O2SAT 97
[2016-12-27 07:56] LABS: ESTIMATED AVERAGE GLUCOSE 146 mg/dl; HA1C FLAG Normal (Normal)
[2016-12-27] MEDS: ISOSORBIDE MONONITRATE 60 MG TABCR PO SCH (08:13)
[2016-12-27] MEDS: RANOLAZINE 500 MG ER TAB PO SCH ×2 (08:14→20:44)
[2016-12-27] MEDS: METOPROLOL SUCC 25MG EXT REL TAB PO SCH ×2 (08:15→20:43)
[2016-12-27] MEDS: INSULIN ASPART 100 UNITS/ML 3 ML PEN SC SCH ×4 (08:22→20:44)
[2016-12-27] MEDS ORDERED: AMLODIPINE BESYLATE 5 MG TAB PO SCH (09:00)
[2016-12-27] MEDS ORDERED: CLOPIDOGREL BISULFATE 75 MG TAB PO SCH (09:00)
[2016-12-27] MEDS ORDERED: LOSARTAN/HCTZ 50-12.5 EA TAB PO SCH (09:00)
[2016-12-27] MEDS ORDERED: ASPIRIN 81 MG ECTAB PO SCH (09:00)
--- NOTE | 2016-12-27 11:08 | DIAGNOSTIC IMAGING REPORT ---
LEFT KNEE 3 VIEWS CLINICAL HISTORY: LT KNEE SWELLING pain. Edema. COMPARISON: None. DISCUSSION: The bones and joint spaces appear intact. There is no evidence of fracture, dislocation or bony disease. Considerable soft tissue edema. Several surgical clips medial to the proximal tibia. No significant joint effusion. Considerable prepatellar soft tissue edematous change. IMPRESSION: Considerable soft tissue edema. No acute bony abnormality of the knee. The above report was generated using voice recognition software. It may contain grammatical, syntax or spelling errors. Electronically signed by: Cesar Munoz M.D. 12/27/2016 11:07 AM Dictated Date/Time: 12/27/2016 11:06 AM
--- NOTE | 2016-12-27 15:12 | Progress Note ---
Internal Med Progress Note Date of Service: Dec 27, 2016. Provider Documentation: SUBJECTIVE: left knee still swollen , minimum pain 2/10 no fever or chills able to bear wt , stand up OBJECTIVE: Vital Signs-as noted below Exam: General-no sign of distress Eyes-sclera non icteric ENT-NAD Neck-no JVD Lungs-CTA , no rales or wheeze Heart-regular S1/s2 Abdomen-soft, non tender Extremities-left knee -+ swelling , + warmth , + ecchymosis , + 1-2 edema on left leg ; limited movement of flexion and extension due to pain normal exam of rt leg Neuro-AAO x3, no focal deficit Lab data as noted below. ASSESSMENT & PLAN: Left knee/leg swelling/LEFT KNEE HEMATOMA s/p fall last Friday -mechanical fall , lost stepping while going down the stairs landed on left knee noticed to have swelling -which got progressively worse pt has been on Aspirin /Plavix -which could be contributing to progression of hematoma after the traumatic injury lower ext Doppler no DVT , except for fluid collection suggestive of hematoma Xray of Knee -no fracture No significant joint effusion. Considerable prepatellar soft tissue edematous change. -stopped Aspirin and Plavix -monitor -pt able to stand up and walk -Ortho eval requested ACUTE BLOOD LOSS ANEMIA : due to above baseline Hb 13 hb 9.6-8.6 no symptom of SOB , dizzy spell Antiplatelets on hold repeat H&H in AM tx for hb drop < 8 or for symptoms HX OF CAD : -history of CAD with stents-approx 10 days back no complain of angina , PIRES -was on dual antiplatelets, continue aspirin and Plavix will hold -Continue home dose Beta yudi and statin Continue home dose antihypertensives of HCTZ/Losartan -Continue home dose isosorbide and Ranexa KIKI ON CKD STAGE 3 : baseline cr 1.3 Cr elevated to 1.6 hold HCTZ /Valsartan ; repeat BMP in AM Diabetes -hold home dose glimperide, metformin, Januvia while in inpatient setting -sliding scale insulin, fingerstick glucose POC for now - HbA1c 6.7 DVT PROPHYLAXIS scd and teds avoid pharmacological anticoagulation due to Hematoma /Anemia DISPOSITION Discharge home when medically stable PT/OT eval requested Medicine follow up with Dr Rojas Vital Signs: Date Time Temp Pulse Resp B/P (MAP) Pulse Ox O2 Delivery O2 Flow Rate FiO2 12/27/16 07:12 36.7 73 18 113/65 (81) 97 Room Air 12/27/16 04:00 Room Air 12/27/16 00:00 36.4 70 18 142/75 (97) 98 Room Air 12/27/16 00:00 Room Air 12/26/16 22:36 66 13 98 12/26/16 22:36 Room Air 12/26/16 22:31 121/64 12/26/16 22:06 71 21 100 12/26/16 22:01 131/83 12/26/16 21:40 69 24 100 12/26/16 21:32 158/77 12/26/16 21:11 65 12/26/16 21:10 65 14 99 12/26/16 21:05 98 Room Air 12/26/16 21:05 65 18 133/73 96 Room Air 12/26/16 19:41 36.5 67 16 131/72 99 Room Air Lab Results: Results Past 24 Hours Test 12/26/16 20:10 12/27/16 01:25 12/27/16 05:51 12/27/16 07:39 Range/Units White Blood Count 7.04 5.81 4.8-10.8 K/uL Red Blood Count 2.84 2.56 4.7-6.1 M/uL Hemoglobin 9.6 8.6 14.0-18.0 g/dL Hematocrit 27.2 24.2 42-52 % Mean Corpuscular Volume 95.8 94.5 80-100 fL Mean Corpuscular Hemoglobin 33.8 33.6 25-34 pg Mean Corpuscular Hemoglobin Concent 35.3 35.5 32-36 g/dl Platelet Count 179 155 130-400 K/uL Mean Platelet Volume 9.1 9.1 7.4-10.4 fL Neutrophils (%) (Auto) 61.6 60.8 % Lymphocytes (%) (Auto) 26.6 26.0 % Monocytes (%) (Auto) 10.4 11.5 % Eosinophils (%) (Auto) 1.0 1.2 % Basophils (%) (Auto) 0.0 0.2 % Neutrophils # (Auto) 4.34 3.53 1.4-6.5 K/uL Lymphocytes # (Auto) 1.87 1.51 1.2-3.4 K/uL Monocytes # (Auto) 0.73 0.67 0.11-0.59 K/uL Eosinophils # (Auto) 0.07 0.07 0-0.5 K/uL Basophils # (Auto) 0.00 0.01 0-0.2 K/uL RDW Standard Deviation 45.4 44.2 36.4-46.3 fL RDW Coefficient of Variation 13.0 12.8 11.5-14.5 % Immature Granulocyte % (Auto) 0.4 0.3 % Immature Granulocyte # (Auto) 0.03 0.02 0.00-0.02 K/uL Prothrombin Time 11.3 9.0-12.0 SECONDS Prothromb Time International Ratio 1.1 0.9-1.1 Activated Partial Thromboplast Time 30.1 21.0-31.0 SECONDS Partial Thromboplastin Ratio 1.2 Sodium Level 137 137 136-145 mmol/L Potassium Level 4.3 4.2 3.5-5.1 mmol/L Chloride Level 101 104 98-107 mmol/L Carbon Dioxide Level 26 26 21-32 mmol/L Anion Gap 10.0 7.0 3-11 mmol/L Blood Urea Nitrogen 48 39 7-18 mg/dl Creatinine 2.10 1.60 0.60-1.40 mg/dl Est Creatinine Clear Calc Drug Dose 26.0 38.4 ml/min Estimated GFR () 33.4 46.5 Estimated GFR (Non- 28.9 40.1 BUN/Creatinine Ratio 22.7 24.6 10-20 Random Glucose 110 117 70-99 mg/dl Calcium Level 10.5 9.1 8.5-10.1 mg/dl Total Bilirubin 0.6 0.7 0.2-1 mg/dl Aspartate Amino Transf (AST/SGOT) 22 19 15-37 U/L Alanine Aminotransferase (ALT/SGPT) 21 18 12-78 U/L Alkaline Phosphatase 42 33 45-117 U/L Total Creatine Kinase 134 39-308 U/L Total Protein 7.9 6.6 6.4-8.2 gm/dl Albumin 4.0 3.2 3.4-5.0 gm/dl Globulin 3.9 3.4 2.5-4.0 gm/dl Albumin/Globulin Ratio 1.0 0.9 0.9-2 Urine Color YELLOW Urine Appearance CLEAR CLEAR Urine pH 5.0 4.5-7.5 Urine Specific [place] 1.018 1.000-1.030 Urine Protein NEG NEG Urine Glucose (UA) NEG NEG Urine Ketones NEG NEG Urine Occult Blood NEG NEG Urine Nitrite NEG NEG Urine Bilirubin NEG NEG Urine Urobilinogen NEG NEG Urine Leukocyte Esterase SMALL NEG Urine WBC (Auto) 1-5 0-5 /hpf Urine RBC (Auto) 0-4 0-4 /hpf Urine Hyaline Casts (Auto) 1-5 0-5 /lpf Urine Epithelial Cells (Auto) 20-30 0-5 /lpf Urine Bacteria (Auto) NEG NEG Basophilic Stippling 1+ Estimated Average Glucose 146 mg/dl Hemoglobin A1c 6.7 4.5-5.6 % Bedside Glucose 168 70-99 mg/dl Test 12/27/16 11:42 Range/Units Bedside Glucose 146 70-99 mg/dl
[2016-12-27 15:31] VITALS: BP 106/65; PULSE 60; TEMP 36.7; O2SAT 98
[2016-12-27 17:01] VITALS: O2SAT 98
--- NOTE | 2016-12-27 17:26 | Medical Consult ---
Consultation Date of Consultation: Dec 27, 2016. Attending Physician: Shirlene Tuttle M.D. Reason for Consultation: Left knee pain and swelling History of Present Illness History Mr. Mcgrath is a delightful gentleman [place] [age] years of age he fell had acute injury to his left left lower extremity particularly left patella proximally one week ago. [place] better on his own he was not overly alarmed following made a trip to the emergency room yesterday the 10th for evaluation treatment and was admitted. I'm seeing him for his left lower extremity pain and difficulty Past Medical/Surgical History Medical Problems: (1) KIKI (acute kidney injury) Status: Acute (2) Anemia Status: Acute (3) Traumatic hematoma of left lower leg Status: Acute Family History FH: heart disease Social History Smoking Status: Never Smoker Drug Use: none Marital Status: Housing Status: lives with significant other Occupation Status: employed Allergies Coded Allergies: No Known Allergies (Verified , 12/26/16) Current Inpatient Medications Current Inpatient Medications Medications (Trade) Dose Ordered Sig/Theodore Route Start Time Stop Time Status Last Admin Dose Admin Amlodipine Besylate (Norvasc Tab) 5 mg QAM PO 12/27/16 09:00 01/26/17 08:59 Future Hold 12/27/16 08:12 5 MG HCTZ/Losartan Potassium (Hyzaar 50-12.5 Tab) 2 tab DAILY PO 12/27/16 09:00 01/26/17 08:59 Future Hold 12/27/16 08:15 2 TAB Isosorbide Mononitrate (Imdur Ext Rel Tab) 120 mg QAM PO 12/27/16 09:00 01/26/17 08:59 12/27/16 08:13 120 MG Nitroglycerin (Nitrostat Tab) 0.4 mg PRN UT 12/26/16 22:15 01/25/17 22:14 Ranolazine (Ranexa ER Tab) 1,000 mg BID PO 12/27/16 09:00 01/26/17 08:59 12/27/16 08:14 1,000 MG Rosuvastatin Calcium (Crestor Tab) 20 mg HS PO 12/27/16 21:00 01/26/17 20:59 Metoprolol Succinate (Toprol Xl Tab) 25 mg BID PO 12/27/16 09:00 01/26/17 08:59 12/27/16 08:15 25 MG Insulin Aspart (novoLOG ASPART) SLIDING SCALE G... ACHS SC 12/27/16 06:30 01/26/17 06:59 12/27/16 14:14 4 UNITS Glucose (Glucose 40% Gel) 15-30 GRAMS 15 GRAMS... UD PRN PO 12/26/16 23:00 01/25/17 22:59 Glucose (Glucose Chew Tab) 4-8 Tablets 4 Tabl... UD PRN PO 12/26/16 23:00 01/25/17 22:59 Dextrose (Dextrose 50% 50ML Syringe) 25-50ML OF 50% DW IV FOR... UD PRN IV 12/26/16 23:00 01/25/17 22:59 Glucagon (Glucagon Inj) 1 mg UD PRN SQ 12/26/16 23:00 01/25/17 22:59 Miscellaneous (Iv Fluids Completed) 1 ea PRN PRN N/A 12/26/16 23:30 12/26/17 23:29 Review of Systems Musculoskeletal: + joint pain, + muscle pain Physical Exam Date Time Temp Pulse Resp B/P (MAP) Pulse Ox O2 Delivery O2 Flow Rate FiO2 12/27/16 17:01 98 Room Air 12/27/16 15:31 36.7 60 18 106/65 (79) 98 Room Air 12/27/16 07:12 36.7 73 18 113/65 (81) 97 Room Air 12/27/16 04:00 Room Air 12/27/16 00:00 36.4 70 18 142/75 (97) 98 Room Air 12/27/16 00:00 Room Air 12/26/16 22:36 66 13 98 12/26/16 22:36 Room Air 12/26/16 22:31 121/64 12/26/16 22:06 71 21 100 12/26/16 22:01 131/83 12/26/16 21:40 69 24 100 12/26/16 21:32 158/77 12/26/16 21:11 65 12/26/16 21:10 65 14 99 12/26/16 21:05 98 Room Air 12/26/16 21:05 65 18 133/73 96 Room Air 12/26/16 19:41 36.5 67 16 131/72 99 Room Air General Appearance: no apparent distress Eyes: normal inspection ENT: normal ENT inspection Neck: supple Respiratory/Chest: chest non-tender Cardiovascular: regular rate, rhythm Back: normal inspection Extremities/Musculoskelatal: + pertinent finding (moderate swelling to the left patella no branches skin slight warmth slight erythema decreased range of motion flexion extension. No apparent instability.) Laboratory Results Last 24 Hours Test 12/26/16 20:10 12/27/16 01:25 12/27/16 05:51 12/27/16 07:39 White Blood Count 7.04 K/uL 5.81 K/uL Red Blood Count 2.84 M/uL 2.56 M/uL Hemoglobin 9.6 g/dL 8.6 g/dL Hematocrit 27.2 % 24.2 % Mean Corpuscular Volume 95.8 fL 94.5 fL Mean Corpuscular Hemoglobin 33.8 pg 33.6 pg Mean Corpuscular Hemoglobin Concent 35.3 g/dl 35.5 g/dl Platelet Count 179 K/uL 155 K/uL Mean Platelet Volume 9.1 fL 9.1 fL Neutrophils (%) (Auto) 61.6 % 60.8 % Lymphocytes (%) (Auto) 26.6 % 26.0 % Monocytes (%) (Auto) 10.4 % 11.5 % Eosinophils (%) (Auto) 1.0 % 1.2 % Basophils (%) (Auto) 0.0 % 0.2 % Neutrophils # (Auto) 4.34 K/uL 3.53 K/uL Lymphocytes # (Auto) 1.87 K/uL 1.51 K/uL Monocytes # (Auto) 0.73 K/uL 0.67 K/uL Eosinophils # (Auto) 0.07 K/uL 0.07 K/uL Basophils # (Auto) 0.00 K/uL 0.01 K/uL RDW Standard Deviation 45.4 fL 44.2 fL RDW Coefficient of Variation 13.0 % 12.8 % Immature Granulocyte % (Auto) 0.4 % 0.3 % Immature Granulocyte # (Auto) 0.03 K/uL 0.02 K/uL Prothrombin Time 11.3 SECONDS Prothromb Time International Ratio 1.1 Activated Partial Thromboplast Time 30.1 SECONDS Partial Thromboplastin Ratio 1.2 Sodium Level 137 mmol/L 137 mmol/L Potassium Level 4.3 mmol/L 4.2 mmol/L Chloride Level 101 mmol/L 104 mmol/L Carbon Dioxide Level 26 mmol/L 26 mmol/L Anion Gap 10.0 mmol/L 7.0 mmol/L Blood Urea Nitrogen 48 mg/dl 39 mg/dl Creatinine 2.10 mg/dl 1.60 mg/dl Est Creatinine Clear Calc Drug Dose 26.0 ml/min 38.4 ml/min Estimated GFR () 33.4 46.5 Estimated GFR (Non- 28.9 40.1 BUN/Creatinine Ratio 22.7 24.6 Random Glucose 110 mg/dl 117 mg/dl Calcium Level 10.5 mg/dl 9.1 mg/dl Total Bilirubin 0.6 mg/dl 0.7 mg/dl Aspartate Amino Transf (AST/SGOT) 22 U/L 19 U/L Alanine Aminotransferase (ALT/SGPT) 21 U/L 18 U/L Alkaline Phosphatase 42 U/L 33 U/L Total Creatine Kinase 134 U/L Total Protein 7.9 gm/dl 6.6 gm/dl Albumin 4.0 gm/dl 3.2 gm/dl Globulin 3.9 gm/dl 3.4 gm/dl Albumin/Globulin Ratio 1.0 0.9 Urine Color YELLOW Urine Appearance CLEAR Urine pH 5.0 Urine Specific [place] 1.018 Urine Protein NEG Urine Glucose (UA) NEG Urine Ketones NEG Urine Occult Blood NEG Urine Nitrite NEG Urine Bilirubin NEG Urine Urobilinogen NEG Urine Leukocyte Esterase SMALL Urine WBC (Auto) 1-5 /hpf Urine RBC (Auto) 0-4 /hpf Urine Hyaline Casts (Auto) 1-5 /lpf Urine Epithelial Cells (Auto) 20-30 /lpf Urine Bacteria (Auto) NEG Basophilic Stippling 1+ Estimated Average Glucose 146 mg/dl Hemoglobin A1c 6.7 % Bedside Glucose 168 mg/dl Test 12/27/16 11:42 12/27/16 15:52 Bedside Glucose 146 mg/dl 167 mg/dl Assessment & Plan Assessment moderate prepatellar hematoma. Plan Observation right now with ice him up on his feet ambulatory. Any surgery will be required. He'll often aspiration currently we'll follow him closely [facility] each and every day over the weekend
[2016-12-27] MEDS: ROSUVASTATIN CALCIUM 20 MG TAB PO SCH (20:43)
[2016-12-27 20:45] VITALS: BP 121/67; PULSE 68
[2016-12-28] VITALS (7 sets, daily range): BP systolic 117–132; BP diastolic 62–74; PULSE 63–84; TEMP 36.3–36.4; O2SAT 91–100
[2016-12-28 07:29] LABS: HEMATOCRIT 27.2 % (42-52)
[2016-12-28 08:08] LABS: BUN/CREATININE RATIO 18.6 (10-20); CALCIUM 9.6 mg/dl (8.5-10.1); CREATININE 1.5 mg/dl (0.60-1.40); POTASSIUM 4.7 mmol/L (3.5-5.1)
[2016-12-28] MEDS: RANOLAZINE 500 MG ER TAB PO SCH ×2 (08:35→20:41)
[2016-12-28] MEDS: METOPROLOL SUCC 25MG EXT REL TAB PO SCH ×2 (08:36→20:40)
[2016-12-28] MEDS: ISOSORBIDE MONONITRATE 60 MG TABCR PO SCH (08:36)
[2016-12-28] MEDS: INSULIN ASPART 100 UNITS/ML 3 ML PEN SC SCH ×4 (08:44→20:46)
--- NOTE | 2016-12-28 10:07 | Discharge Instructions ---
Discharge Instructions Date of Service Dec 28, 2016. Admission Reason for Admission: Cad, Diabetes Mellitus, Swollen Lt Knee Discharge Discharge Diagnosis / Problem: FALL /LEFT KNEE HEMATOMA Discharge Goals Goal(s): Improve disease control, Diagnostic testing Activity Recommendations Activity Limitations: resume your previous activity Lifting Limitations: gradually increase as tolerated Exercise/Sports Limitations: until after follow-up appointment Shower/Bathe: no limitations Weightbearing Status: Left weightbearing (as tolerated) . Instructions / Follow-Up Instructions / Follow-Up HOSPITAL FOLLOW UP ON Friday12/30/16 @ 12: [address] CHAPMAN CARDIOLOGY FOLLOW UP : 01/01/2017 12:45 PM Cesar Elias PA-C Cardiology, [facility] LAB WORK : COMPLETE BLOOD COUNT IN 1 WEEK FOLLOW UP WITH ORTHOPEDICS DR KENNEY IN 2 WEEKS , PLEASE CALL OFFICE FOR APPOINTMENT DO NOT TAKE ASPIRIN /PLAVIX FOR 1 WEEK KEEP LEG ELEVATED , APPLY ICE PACKS NEEDED FOR PAIN AND SWELLING Current Hospital Diet Patient's current hospital diet: Low Sodium Diet (2gm Na), Diabetes Type 2 Diet Discharge Diet Recommended Diet: Low Sodium Diet (2gm Na), Diabetes Type 2 Diet Pending Studies Studies pending at discharge: yes List of pending studies: COMPLETE BLOOD COUNT IN 1 WEEK Laboratory Results Hemoglobin A1c Test 12/27/16 05:51 Range/Units Estimated Average Glucose 146 mg/dl Hemoglobin A1c 6.7 H 4.5-5.6 % Medical Emergencies . Who to Call and When: Medical Emergencies: If at any time you feel your situation is an emergency, please call 911 immediately. . Non-Emergent Contact Non-Emergency issues call your: Primary Care Provider . . "Provider Documentation" section prepared by Shirlene Tuttle. . VTE Core Measure Inpt VTE Proph given/why not?: Darby Barraza, SCD's
--- NOTE | 2016-12-28 17:25 | Progress Note ---
Internal Med Progress Note Date of Service: Dec 28, 2016. Provider Documentation: SUBJECTIVE: pt found ambulating in hallway minimum pain swelling in left knee continues to improve OBJECTIVE: Vital Signs-as noted below Exam: General-no sign of distress Eyes-sclera non icteric ENT-NAD Neck-no JVD Lungs-CTA , no rales or wheeze Heart-regular S1/s2 Abdomen-soft, non tender Extremities-left knee -+improved swelling , persistent ecchymosis + 1-2 edema on left leg ; normal exam of rt leg Neuro-AAO x3, no focal deficit Lab data as noted below. ASSESSMENT & PLAN: Left knee/leg swelling/LEFT KNEE HEMATOMA s/p fall last Friday -mechanical fall , lost stepping while going down the stairs landed on left knee noticed to have swelling -which got progressively worse pt has been on Aspirin /Plavix -which could be contributing to progression of hematoma after the traumatic injury lower ext Doppler no DVT , except for fluid collection suggestive of hematoma Xray of Knee -no fracture No significant joint effusion. Considerable prepatellar soft tissue edematous change. -stopped Aspirin and Plavix -monitor -pt able to stand up and walk -Ortho eval requested -appreciate input cont conservative management with cold compression increase activity no need for surgical drainage out pt follow up with Dr Willis ACUTE BLOOD LOSS ANEMIA : due to above baseline Hb 13 hb 9.6-8.6 no symptom of SOB , dizzy spell Antiplatelets on hold repeat H&H in AM shows improved Hb 9.8 pt will continue to hold Aspirin /Plavix for 1 more week repeat blood work CBC in 1 week HX OF CAD : -history of CAD with stents-approx 10 days back no complain of angina , PIRES -was on dual antiplatelets, continue aspirin and Plavix will hold -Continue home dose Beta yudi and statin Continue home dose antihypertensives of HCTZ/Losartan -Continue home dose isosorbide and Ranexa KIKI ON CKD STAGE 3 : baseline cr 1.3 hold HCTZ /Valsartan ; Cr improved Diabetes -hold home dose glimperide, metformin, Januvia while in inpatient setting -sliding scale insulin, fingerstick glucose POC for now - HbA1c 6.7 DVT PROPHYLAXIS scd and teds avoid pharmacological anticoagulation due to Hematoma /Anemia DISPOSITION Discharge home tomorrow PT/OT eval requested Medicine follow up with Dr Rojas Vital Signs: Date Time Temp Pulse Resp B/P (MAP) Pulse Ox O2 Delivery O2 Flow Rate FiO2 12/28/16 15:55 36.3 63 17 122/62 (82) 100 Room Air 12/28/16 15:48 Room Air 12/28/16 08:46 75 120/67 (84) 12/28/16 08:33 36.4 84 18 117/68 (84) 91 Room Air 12/28/16 08:20 98 Room Air 12/28/16 00:37 36.3 67 18 122/74 (90) 98 Room Air 12/27/16 23:59 Room Air 12/27/16 20:45 68 121/67 (85) 12/27/16 20:00 Room Air Lab Results: Results Past 24 Hours Test 12/27/16 20:11 12/28/16 07:02 12/28/16 07:35 12/28/16 11:33 Range/Units Bedside Glucose 138 218 163 70-99 mg/dl Hemoglobin 9.4 14.0-18.0 g/dL Hematocrit 27.2 42-52 % Sodium Level 138 136-145 mmol/L Potassium Level 4.7 3.5-5.1 mmol/L Chloride Level 103 98-107 mmol/L Carbon Dioxide Level 27 21-32 mmol/L Anion Gap 8.0 3-11 mmol/L Blood Urea Nitrogen 28 7-18 mg/dl Creatinine 1.50 0.60-1.40 mg/dl Est Creatinine Clear Calc Drug Dose 40.9 ml/min Estimated GFR () 50.2 Estimated GFR (Non- 43.3 BUN/Creatinine Ratio 18.6 10-20 Random Glucose 198 70-99 mg/dl Calcium Level 9.6 8.5-10.1 mg/dl Test 12/28/16 16:19 Range/Units Bedside Glucose 211 70-99 mg/dl
[2016-12-28] MEDS: ROSUVASTATIN CALCIUM 20 MG TAB PO SCH (20:40)
[2016-12-29 00:01] VITALS: BP 123/58; PULSE 68; TEMP 36.5; O2SAT 98
[2016-12-29 07:38] LABS: HEMATOCRIT 27.3 % (42-52)
[2016-12-29 07:47] VITALS: BP 107/65; PULSE 79; TEMP 36.6; O2SAT 97
[2016-12-29 08:07] VITALS: BP 116/69; PULSE 79
[2016-12-29] MEDS: ISOSORBIDE MONONITRATE 60 MG TABCR PO SCH (08:09)
[2016-12-29] MEDS: METOPROLOL SUCC 25MG EXT REL TAB PO SCH (08:09)
[2016-12-29] MEDS: RANOLAZINE 500 MG ER TAB PO SCH (08:10)
[2016-12-29] MEDS: INSULIN ASPART 100 UNITS/ML 3 ML PEN SC SCH ×2 (08:12→12:04)
[2016-12-29 08:17] LABS: CREATININE 1.3 mg/dl (0.60-1.40); POTASSIUM 4.1 mmol/L (3.5-5.1)
[2016-12-29 09:47] VITALS: BP 116/69; PULSE 79; TEMP 36.6; O2SAT 97
--- NOTE | 2016-12-29 09:48 | Discharge Instructions ---
Discharge Instructions Date of Service Dec 29, 2016. Admission Reason for Admission: Cad, Diabetes Mellitus, Swollen Lt Knee Discharge Discharge Diagnosis / Problem: same Discharge Goals Goal(s): Improve function, Increase independence Activity Recommendations Activity Limitations: as noted below Lifting Limitations: gradually increase as tolerated Exercise/Sports Limitations: until after follow-up appointment Shower/Bathe: no limitations Driving or Machine Use: full weight bearing permitted. follow up with me (dr. lea) in two weeks . Current Hospital Diet Patient's current hospital diet: Low Sodium Diet (2gm Na), Diabetes Type 2 Diet Discharge Diet Recommended Diet: Diabetes Type 2 Diet Fluid Restriction: None Pending Studies Studies pending at discharge: no Laboratory Results Hemoglobin A1c Test 12/27/16 05:51 Range/Units Estimated Average Glucose 146 mg/dl Hemoglobin A1c 6.7 H 4.5-5.6 % Medical Emergencies . Who to Call and When: Medical Emergencies: If at any time you feel your situation is an emergency, please call 911 immediately. . Non-Emergent Contact Non-Emergency issues call your: Primary Care Provider Call Non-Emergent contact if: wound has increased pain . "Provider Documentation" section prepared by Murtaza Lea. Call [phone] for appointment in two weeks. . Financial Advocate Recommendations Financial Advocate Recommendations: home , rest, ambulate as tolerated. call if problems. Keep with the ice for 3 more days VTE Core Measure Inpt VTE Proph given/why not?: Darby Barraza, SCD's
--- NOTE | 2016-12-29 11:08 | Progress Note ---
Internal Med Progress Note Date of Service: Dec 29, 2016. Provider Documentation: SUBJECTIVE: pain and swelling in left knee has markedly improved walking on hallway , no trouble bearing wt OBJECTIVE: Vital Signs-as noted below Exam: General-no sign of distress Eyes-sclera non icteric ENT-NAD Neck-no JVD Lungs-CTA , no rales or wheeze Heart-regular S1/s2 Abdomen-soft, non tender Extremities-left knee -+improved swelling , improved ecchymosis + 1-2 edema on left leg ; normal exam of rt leg Neuro-AAO x3, no focal deficit Lab data as noted below. ASSESSMENT & PLAN: Left knee/leg swelling/LEFT KNEE HEMATOMA s/p fall last Friday -mechanical fall , lost stepping while going down the stairs landed on left knee noticed to have swelling -which got progressively worse pt has been on Aspirin /Plavix -which could be contributing to progression of hematoma after the traumatic injury lower ext Doppler no DVT , except for fluid collection suggestive of hematoma Xray of Knee -no fracture No significant joint effusion. Considerable prepatellar soft tissue edematous change. -stopped Aspirin and Plavix -monitor -left knee swelling and tenderness has improved markedly -Ortho eval requested -appreciate input cont conservative management with cold compression increase activity no need for surgical drainage out pt follow up with Dr Alba tom to be discharged home today ACUTE BLOOD LOSS ANEMIA : due to above baseline Hb 13 hb 9.6-8.6 no symptom of SOB , dizzy spell Antiplatelets on hold H&H remains stable > 9 pt will continue to hold Aspirin /Plavix for 1 more week repeat blood work CBC in 1 week HX OF CAD : -history of CAD with stents-approx 10 days back no complain of angina , PIRES -was on dual antiplatelets, continue aspirin and Plavix will hold for 1 week -Continue home dose Beta yudi and statin Continue home dose antihypertensives of HCTZ/Losartan -Continue home dose isosorbide and Ranexa has follow up appointment with Cardiology next week KIKI ON CKD STAGE 3 : baseline cr 1.3 hold HCTZ /Valsartan ; Cr improved to baseline diuretics resumed on discharge Diabetes -hold home dose glimperide, metformin, Januvia while in inpatient setting -sliding scale insulin, fingerstick glucose POC for now - HbA1c 6.7 DVT PROPHYLAXIS scd and teds pharmacological anticoagulation avoided due to Hematoma /Anemia DISPOSITION Discharge home today Medicine follow up with Dr Rojas Vital Signs: Date Time Temp Pulse Resp B/P (MAP) Pulse Ox O2 Delivery O2 Flow Rate FiO2 12/29/16 09:47 36.6 79 18 97 Room Air 12/29/16 08:07 79 116/69 (85) 12/29/16 08:00 Room Air 12/29/16 07:47 36.6 79 18 107/65 (79) 97 Room Air 12/29/16 00:01 36.5 68 20 123/58 (79) 98 Room Air 12/28/16 23:59 Room Air 12/28/16 20:39 68 132/65 (87) 12/28/16 20:00 Room Air 12/28/16 15:55 36.3 63 17 122/62 (82) 100 Room Air 12/28/16 15:48 Room Air Lab Results: Results Past 24 Hours Test 12/28/16 11:33 12/28/16 16:19 12/28/16 20:02 12/29/16 07:07 Range/Units Bedside Glucose 163 211 276 252 70-99 mg/dl Test 12/29/16 07:08 Range/Units Hemoglobin 9.4 14.0-18.0 g/dL Hematocrit 27.3 42-52 % Sodium Level 136 136-145 mmol/L Potassium Level 4.1 3.5-5.1 mmol/L Chloride Level 104 98-107 mmol/L Carbon Dioxide Level 26 21-32 mmol/L Anion Gap 6.0 3-11 mmol/L Blood Urea Nitrogen 22 7-18 mg/dl Creatinine 1.30 0.60-1.40 mg/dl Est Creatinine Clear Calc Drug Dose 47.2 ml/min Estimated GFR () 59.7 Estimated GFR (Non- 51.5 BUN/Creatinine Ratio 17.0 10-20 Random Glucose 237 70-99 mg/dl Calcium Level 9.0 8.5-10.1 mg/dl
--- NOTE | 2016-12-29 11:09 | Discharge Summary ---
Discharge Summary Date of Service Dec 29, 2016. Discharge Summary Admission Date: Dec 26, 2016 at 22:12 Discharge Date: Dec 29, 2016 Discharge Disposition: Home Principal Diagnosis: FALL /LEFT KNEE HEMATOMA Procedures: LEFT KNEE XRAY : IMPRESSION: Considerable soft tissue edema. No acute bony abnormality of the knee DOPPLER LOWER EXTREMITY : IMPRESSION: 1. Normal venous Doppler. 2. 5 x 2 cm complex fluid collection anterior to the patella possibly a posttraumatic hematoma. Consultations: ORTHOPEDICS DR KENNEY Medication Reconciliation Continued Medications: Amlodipine (Norvasc) 5 Mg Tab 5 MG PO QAM, TAB Glimepiride (Amaryl *) 4 Mg Tab 8 MG PO DAILY, TAB 4 mg tablets. Take 2 tablets (8 mg) each morning. Hctz/Losartan (Hyzaar 25MG/100MG) 1 Ea Tab 1 TAB PO DAILY for 30 Days, #30 TAB 5 Refills Isosorbide Mononitrate Ext Rel (Imdur Ext Rel) 120 Mg Ertab 120 MG PO QAM, TAB Metformin Hcl (Glucophage) 850 Mg Tab 850 MG PO TID Metoprolol Succ (Toprol Xl) (Toprol-Xl) 25 Mg Tabcr 25 MG PO BID, #30 TAB Nitroglycerin (Nitrostat) 0.4 Mg Sub 0.4 MG UT PRN, SUB Ranolazine (Ranexa) 1,000 Mg Tab 1 TAB PO BID for 30 Days, #60 TAB Rosuvastatin Calcium (Crestor) 20 Mg Tab 20 MG PO 5PM, TAB Sitagliptin Phosphate (Januvia) 100 Mg Tab 100 MG PO QAM, TAB Discontinued Medications: Aspirin (Aspirin Adult Low Strengt) 81 Mg Tab 81 MG OR DAILY Clopidogrel Bisulfate (Plavix) 75 Mg Tab 75 MG PO DAILY, TAB Admission Information HPI (per Admitting provider): 81 year old M with past medical history of stents 10 years ago with history of dual antiplatelet therapy who is on medications for hypertension and diabetes. Patient had traumatic fall while walking on steps as he was carrying a load in his arms about 5 days ago. Patient experienced trauma to left leg. He did not seek medical care until today for swelling of left knee. On exam there is swollen left knee with some swelling around thigh to mid lower leg. He denies of fevers at home. He denies chest pain or shortness of breath. His opposite leg is without edema. Hospital Course Left knee/leg swelling/LEFT KNEE HEMATOMA s/p fall last Friday -mechanical fall , lost stepping while going down the stairs landed on left knee noticed to have swelling -which got progressively worse pt has been on Aspirin /Plavix -which could be contributing to progression of hematoma after the traumatic injury lower ext Doppler no DVT , except for fluid collection suggestive of hematoma Xray of Knee -no fracture No significant joint effusion. Considerable prepatellar soft tissue edematous change. -stopped Aspirin and Plavix -monitor -left knee swelling and tenderness has improved markedly -Ortho eval requested -appreciate input cont conservative management with cold compression increase activity no need for surgical drainage out pt follow up with Dr Abla tom to be discharged home today ACUTE BLOOD LOSS ANEMIA : due to above baseline Hb 13 hb 9.6-8.6 no symptom of SOB , dizzy spell Antiplatelets on hold H&H remains stable > 9 pt will continue to hold Aspirin /Plavix for 1 more week repeat blood work CBC in 1 week HX OF CAD : -history of CAD with stents-approx 10 days back no complain of angina , PIRES -was on dual antiplatelets, continue aspirin and Plavix will hold for 1 week -Continue home dose Beta yudi and statin Continue home dose antihypertensives of HCTZ/Losartan -Continue home dose isosorbide and Ranexa has follow up appointment with Cardiology next week KIKI ON CKD STAGE 3 : baseline cr 1.3 hold HCTZ /Valsartan ; Cr improved to baseline diuretics resumed on discharge Diabetes -hold home dose glimperide, metformin, Januvia while in inpatient setting -sliding scale insulin, fingerstick glucose POC for now - HbA1c 6.7 DVT PROPHYLAXIS scd and teds pharmacological anticoagulation avoided due to Hematoma /Anemia DISPOSITION Discharge home today Medicine follow up with Dr Rojas Discharge Instructions Discharge Instructions Date of Service Dec 28, 2016. Admission Reason for Admission: Cad, Diabetes Mellitus, Swollen Lt Knee Discharge Discharge Diagnosis / Problem: FALL /LEFT KNEE HEMATOMA Discharge Goals Goal(s): Improve disease control, Diagnostic testing Activity Recommendations Activity Limitations: resume your previous activity Lifting Limitations: gradually increase as tolerated Exercise/Sports Limitations: until after follow-up appointment Shower/Bathe: no limitations Weightbearing Status: Left weightbearing (as tolerated) . Instructions / Follow-Up Instructions / Follow-Up HOSPITAL FOLLOW UP ON Friday12/30/16 @ 12: [address] ROJAS CARDIOLOGY FOLLOW UP : 01/01/2017 12:45 PM Cesar Elias PA-C Cardiology, [facility] LAB WORK : COMPLETE BLOOD COUNT IN 1 WEEK FOLLOW UP WITH ORTHOPEDICS DR KENNEY IN 2 WEEKS , PLEASE CALL OFFICE FOR APPOINTMENT DO NOT TAKE ASPIRIN /PLAVIX FOR 1 WEEK KEEP LEG ELEVATED , APPLY ICE PACKS NEEDED FOR PAIN AND SWELLING Current Hospital Diet Patient's current hospital diet: Low Sodium Diet (2gm Na), Diabetes Type 2 Diet Discharge Diet Recommended Diet: Low Sodium Diet (2gm Na), Diabetes Type 2 Diet Pending Studies Studies pending at discharge: yes List of pending studies: COMPLETE BLOOD COUNT IN 1 WEEK Laboratory Results Hemoglobin A1c Test 12/27/16 05:51 Range/Units Estimated Average Glucose 146 mg/dl Hemoglobin A1c 6.7 H 4.5-5.6 % Medical Emergencies . Who to Call and When: Medical Emergencies: If at any time you feel your situation is an emergency, please call 911 immediately. . Non-Emergent Contact Non-Emergency issues call your: Primary Care Provider . . "Provider Documentation" section prepared by Shirlene Tuttle. . VTE Core Measure Inpt VTE Proph given/why not?: Darby Barraza, SCD's Additional Copies To Sylvia Rojas M.D.
== END 2016-12-29 12:25 | disposition home or self-care (01) ==
LOC: C.EDB 19:35 → C.MS2W 22:12 → ENRESERV 22:17
PROVIDERS: ADMIT Hospitalist; ATTEND Hospitalist
DX: S80.02XA Contusion of left knee, initial encounter (principal); W10.9XXA Fall (on) (from) unspecified stairs and steps, initial encounter; N17.9 Acute kidney failure, unspecified; D62 Acute posthemorrhagic anemia; I12.9 Hypertensive chronic kidney disease with stage 1 through stage 4 chronic kidney disease, or unspecified chronic kidney disease; N18.3 Chronic kidney disease, stage 3 (moderate); E11.9 Type 2 diabetes mellitus without complications; I25.10 Atherosclerotic heart disease of native coronary artery without angina pectoris; E78.5 Hyperlipidemia, unspecified; Z79.82 Long term (current) use of aspirin; Z90.49 Acquired absence of other specified parts of digestive tract; Z95.1 Presence of aortocoronary bypass graft; Z82.49 Family history of ischemic heart disease and other diseases of the circulatory system

== ENCOUNTER 2022-09-23 20:39 | Inpatient (IN) ==
--- NOTE | 2022-09-23 21:15 | Emergency Department Note ---
Impression & Plan Falls, Acute hyponatremia ED Provider Note Provider: Leno Mendiola MD DATE OF SERVICE: 09/23/2022 CHIEF COMPLAINT: Falls HISTORY OF PRESENT ILLNESS: Patient is a 87-year-old gentleman history of hypertension, CAD CABG, and diabetes presenting here today after several falls. Patient evidently has had about 3 falls today. States he is walking his left leg just gives out on him. States 1 time he did fall and hit the back of his left head but denies headache or dizziness. Denies visual change. Denies significant neck pain, arm pain, chest pain, back pain, or abdominal pain. Denies nausea or vomiting. Patient denies palpitations or lightheadedness. No loss of consciousness reported. Patient states he not had significant issues with left leg before. Denies significant pain in the lower extremities currently. States he does not use a cane or walker but his legs gives out and he falls to the ground. is concerned given some, after EMS evaluation. Evidently was doing okay yesterday although has not been as ambulatory over the past 6 months as it was last year. is concerned about the patient falling at night as he gets up to use the bathroom given that he is had multiple falls today. PAST MEDICAL HISTORY: As noted above MEDICATIONS: Reviewed home medications SOCIAL HISTORY: lives in a single floor house PHYSICAL EXAM: GENERAL: alert and oriented in no acute distress on stretcher Head: normocephalic with a slight approximate 2 cm swelling left occiput just posterior to the mastoid process. No lacerations noted. No crepitus. EYES: No injection, discharge or icterus. PERRL, EOMI. NECK: Trachea midline. Supple without midline tenderness ENT: Mucous membranes pink and moist. Pharynx without erythema or exudate. LUNGS: Airway patent. No retractions. Breath sounds clear with good air entry bilaterally. HEART: Regular rate and rhythm. No chest wall tenderness ABDOMEN: Soft and non-tender, without guarding or rebound. No flank tenderness SKIN: Acyanotic, warm, dry, without rashes EXTREMITIES: Without swelling, tenderness or deformity NEUROLOGICAL: No focal deficits. No aphasia. No facial droop or slurred speech. Normal strength and tone in the extremities. Sensation to gross touch normal. Ambulatory. EK bpm normal sinus rhythm with right bundle branch block. No acute ST segment elevation noted with some nonspecific T wave changes. QTc 483. Compared to old EKG from the [facility] system from October 18, 2021 similar mor phologies. CONTINUOUS CARDIAC MONITORING: was ordered and showed a heart rate of 50s-60s bpm in normal sinus rhythm to sinus bradycardia with right bundle branch block GCS 15. Patient's laboratory studies and imaging reviewed. 1 view chest x-ray per my interpretation: No evidence of free air. No significant cardiomegaly. Prior sternotomy wires noted. No significant pulmonary edema or pleural effusions noted. No obvious pneumothorax or pneumonia noted or obvious bony injury. Differential includes traumatic injury, infection, dehydration, metabolic abnormality, hypo/hyperglycemia, electrolyte disturbance, anemia, hypoxia, cardiac sources, intracerebral event/neurologic, as well as other pathologies. IMPRESSION/MEDICAL DECISION MAKING: Patient with multiple falls he states his left leg is giving out on him. Reports he did strike his head is on Plavix. CT of the head to be complete exclude intracranial bleed. Not having significant focal neurological deficits. No significant traumatic injuries noted beyond some slight swelling of the posterior left head. Nexus criteria I doubt cervical spine injury. No significant tenderness or deformity of the extremities. Basic blood work sent. EKG obtained. Chest x-ray per my review without significant abnormality. CT report per radiology is reassuring. Blood work does return with some hyponatremia as well as a creatinine of 1.85. No evidence of significant rhabdomyolysis or elevated troponin based on labs and low suspicion for ACS. Reviewed [facility] system EKG as well as prior labs from October of last year. Sodium change appears acute. Creatinine at that time was between 1.4 and 1.6 over the past 1 to 2 years so may be slightly worse today. Given some gentle IV fluid hydration this would also help with a sodium component. Unclear exactly why this may be low but could be causing part of his mobility issue. Discussed with him and his and recommend that he come into the hospital for further evaluation. Hospitalist contacted. DIAGNOSIS: Falls, hyponatremia, closed head injury DISPOSITION: Hospitalist will evaluate Patient was agreeable with this plan. Past Med/Surg History Social History Smoking Status: Former smoker Allergies Allergies Allergy/AdvReac Type Severity Reaction Status Date / Time No Known Allergies Allergy Verified 09/23/22 22:13 Home Meds Home Medications Medication Instructions Recorded Confirmed amlodipine 5 mg tablet 5 mg PO DAILY 09/23/22 09/23/22 aspirin 81 mg tablet,delayed 81 mg PO QAM 09/23/22 09/23/22 release clopidogrel 75 mg tablet 75 mg PO DAILY 09/23/22 09/23/22 insulin glargine 100 unit/mL (3 22 unit subcut QA 09/23/22 09/23/22 mL) subcutaneous pen (Lantus Solostar U-100 Insulin) isosorbide mononitrate 120 mg 120 mg PO QAM 09/23/22 09/23/22 tablet,extended release 24 hr losartan 50 mg tablet 50 mg PO BID 09/23/22 09/23/22 metformin 500 mg tablet,extended 500 mg PO TIDM 09/23/22 09/23/22 release 24 hr metoprolol succinate 25 mg 25 mg PO BID 09/23/22 09/23/22 tablet,extended release 24 hr nitroglycerin 0.4 mg sublingual 0.4 mg sublingual .UD PRN Chest 09/23/22 3 tablet Pain ranolazine 1,000 mg 1,000 mg PO BID 09/23/22 09/23/22 tablet,extended release,12 hr rosuvastatin 20 mg tablet 20 mg PO QAM 09/23/22 09/23/22 Results & Data (ED) Vital Signs Vital Signs - 24 hr 09/23/22 20:52 09/23/22 20:52 09/23/22 20:48 Temperature 36.9 C Temperature Source Oral Pulse Rate 64 64 66 Pulse Rate from SpO2 Sensor 64 Pulse Rhythm Regular Pulse Strength Normal Respiratory Rate 20 19 Respiratory Effort / Characteristics Non-Labored Spontaneous Respiratory Depth Normal Respiratory Pattern Regular Blood Pressure 104/58 L Blood Pressure Mean 73 Pulse Oximetry 94 94 Oxygen Delivery Method Room Air Sepsis Recent Fever Within 48 Hours No Sepsis New/Unexplained Change in Mental Status No Sepsis Action Taken by Nursing No Action Required 09/23/22 21:00 09/23/22 21:42 09/23/22 22:00 Temperature Temperature Source Pulse Rate 61 76 57 L Pulse Rate from SpO2 Sensor 61 58 L Pulse Rhythm Pulse Strength Respiratory Rate 20 16 16 Respiratory Effort / Characteristics Respiratory Depth Respiratory Pattern Blood Pressure 104/57 L Blood Pressure Mean 72 Pulse Oximetry 93 97 Oxygen Delivery Method Sepsis Recent Fever Within 48 Hours Sepsis New/Unexplained Change in Mental Status Sepsis Action Taken by Nursing Laboratory Data 09/23/22 21:00 09/23/22 21:00 Lab Results 09/23/22 09/23/22 09/23/22 Range/Units 21:00 21:00 21:00 WBC 9.64 (4.8-10.8) K/ul RBC 3.30 L (4.70-6.10) M/uL Hgb 11.2 L (14.0-18.0) g/dl Hct 31.8 L (42.0-52.0) % MCV 96.4 (80.0-100.0) fL MCH 33.9 (25.0-34.0) pg MCHC 35.2 (32.0-36.0) g/dL RDW Std Deviation 44.7 (36.4-46.3) fL RDW Coeff of Venancio 12.7 (11.5-14.5) % Plt Count 121 L (130-400) K/uL MPV 10.0 (9.4-12.4) fL Immature Gran % (Auto) 0.3 % Neut % (Auto) 75.8 % Lymph % (Auto) 13.0 % [place] % (Auto) 10.5 % Eos % (Auto) 0.2 % Baso % (Auto) 0.2 % Neut # (Auto) 7.31 H (1.40-6.50) K/uL Lymph # (Auto) 1.25 (1.2-3.4) K/uL [place] # (Auto) 1.01 H (0.11-0.59) K/uL Eos # (Auto) 0.02 (0-0.50) K/uL Baso # (Auto) 0.02 (0-0.2) K/uL Immature Gran # (Auto) 0.03 (0.01-0.20) K/uL Sodium 129 L (136-145) mmol/L Potassium 4.8 (3.5-5.1) mmol/L Chloride 97 L (98-107) mmol/L Carbon Dioxide 20 L (21-32) mmol/L Anion Gap 12 H (3-11) BUN 44 H (6-23) mg/dl Creatinine 1.85 H (0.6-1.4) mg/dl Est Cr Clr Drug Dosing 29.2 ml/min Est GFR ( Amer) 37.4 ml/min Est GFR (Non-Af Amer) 32.3 ml/min BUN/Creatinine Ratio 23.8 H (10-20) Glucose 219 H (70-99(Fasting)) mg/dl Osmolality (280-300) mOsm/kg Calcium 9.5 (8.6-10.3) mg/dl Magnesium 2.0 (1.7-2.4) mg/dl Total Bilirubin 0.9 (0.2-1.0) mg/dl AST 20 (13-39) U/L ALT 15 (7-52) U/L Alkaline Phosphatase 39 (34-104) U/L Total Creatine Kinase 188 (30-223) U/L Troponin I High Sens 6.5 (0-20) pg/ml Total Protein 7.1 (6.0-8.3) gm/dl Albumin 4.0 (3.4-5.0) gm/dl Globulin 3.1 (2.5-4.0) gm/dl Albumin/Globulin Ratio 1.3 (0.9-2) TSH 3.046 (0.300-4.500) uIu/ml Urine Color Urine Appearance (Clear) Urine pH (4.5-7.5) Ur Specific [place] (1.000-1.030) Urine Protein (Negative) Urine Glucose (UA) (Negative) Urine Ketones (Negative) Urine Blood (Negative) Urine Nitrite (Negative) Urine Bilirubin (Negative) Urine Urobilinogen (Negative) Ur Leukocyte Esterase (Negative) Urine WBC (Auto) (0-5) /hpf Urine RBC (Auto) (0-4) /hpf U Hyaline Cast (Auto) (0-5) /lpf U Epithel Cells (Auto) (0-5) /lpf Urine Bacteria (Auto) (Negative) Ur Renal Epithelial Cell (0-5) /lpf Urine Yeast Urine Osmolality (500-800) mOsm/kg SARS-CoV-2, RNA, NAAT (NEGATIVE) 09/23/22 09/23/22 09/23/22 Range/Units 21:45 21:45 22:07 WBC (4.8-10.8) K/ul RBC (4.70-6.10) M/uL Hgb (14.0-18.0) g/dl Hct (42.0-52.0) % MCV (80.0-100.0) fL MCH (25.0-34.0) pg MCHC (32.0-36.0) g/dL RDW Std Deviation (36.4-46.3) fL RDW Coeff of Venancio (11.5-14.5) % Plt Count (130-400) K/uL MPV (9.4-12.4) fL Immature Gran % (Auto) % Neut % (Auto) % Lymph % (Auto) % [place] % (Auto) % Eos % (Auto) % Baso % (Auto) % Neut # (Auto) (1.40-6.50) K/uL Lymph # (Auto) (1.2-3.4) K/uL [place] # (Auto) (0.11-0.59) K/uL Eos # (Auto) (0-0.50) K/uL Baso # (Auto) (0-0.2) K/uL Immature Gran # (Auto) (0.01-0.20) K/uL Sodium (136-145) mmol/L Potassium (3.5-5.1) mmol/L Chloride (98-107) mmol/L Carbon Dioxide (21-32) mmol/L Anion Gap (3-11) BUN (6-23) mg/dl Creatinine (0.6-1.4) mg/dl Est Cr Clr Drug Dosing ml/min Est GFR ( Amer) ml/min Est GFR (Non-Af Amer) ml/min BUN/Creatinine Ratio (10-20) Glucose (70-99(Fasting)) mg/dl Osmolality 290 (280-300) mOsm/kg Calcium (8.6-10.3) mg/dl Magnesium (1.7-2.4) mg/dl Total Bilirubin (0.2-1.0) mg/dl AST (13-39) U/L ALT (7-52) U/L Alkaline Phosphatase (34-104) U/L Total Creatine Kinase (30-223) U/L Troponin I High Sens (0-20) pg/ml Total Protein (6.0-8.3) gm/dl Albumin (3.4-5.0) gm/dl Globulin (2.5-4.0) gm/dl Albumin/Globulin Ratio (0.9-2) TSH (0.300-4.500) uIu/ml Urine Color Dark Yellow Urine Appearance Cloudy A (Clear) Urine pH 5.0 (4.5-7.5) Ur Specific [place] 1.023 (1.000-1.030) Urine Protein 2+ H (Negative) Urine Glucose (UA) Negative (Negative) Urine Ketones Trace H (Negative) Urine Blood Negative (Negative) Urine Nitrite Negative (Negative) Urine Bilirubin Negative (Negative) Urine Urobilinogen Negative (Negative) Ur Leukocyte Esterase 1+ H (Negative) Urine WBC (Auto) 10-30 H (0-5) /hpf Urine RBC (Auto) 0-4 (0-4) /hpf U Hyaline Cast (Auto) 1-5 (0-5) /lpf U Epithel Cells (Auto) >30 H (0-5) /lpf Urine Bacteria (Auto) Negative (Negative) Ur Renal Epithelial Cell 0-5 (0-5) /lpf Urine Yeast Not Reportable Urine Osmolality (500-800) mOsm/kg SARS-CoV-2, RNA, NAAT NEGATIVE (NEGATIVE) 09/23/22 Range/Units 22:38 WBC (4.8-10.8) K/ul RBC (4.70-6.10) M/uL Hgb (14.0-18.0) g/dl Hct (42.0-52.0) % MCV (80.0-100.0) fL MCH (25.0-34.0) pg MCHC (32.0-36.0) g/dL RDW Std Deviation (36.4-46.3) fL RDW Coeff of Venancio (11.5-14.5) % Plt Count (130-400) K/uL MPV (9.4-12.4) fL Immature Gran % (Auto) % Neut % (Auto) % Lymph % (Auto) % [place] % (Auto) % Eos % (Auto) % Baso % (Auto) % Neut # (Auto) (1.40-6.50) K/uL Lymph # (Auto) (1.2-3.4) K/uL [place] # (Auto) (0.11-0.59) K/uL Eos # (Auto) (0-0.50) K/uL Baso # (Auto) (0-0.2) K/uL Immature Gran # (Auto) (0.01-0.20) K/uL Sodium (136-145) mmol/L Potassium (3.5-5.1) mmol/L Chloride (98-107) mmol/L Carbon Dioxide (21-32) mmol/L Anion Gap (3-11) BUN (6-23) mg/dl Creatinine (0.6-1.4) mg/dl Est Cr Clr Drug Dosing ml/min Est GFR ( Amer) ml/min Est GFR (Non-Af Amer) ml/min BUN/Creatinine Ratio (10-20) Glucose (70-99(Fasting)) mg/dl Osmolality (280-300) mOsm/kg Calcium (8.6-10.3) mg/dl Magnesium (1.7-2.4) mg/dl Total Bilirubin (0.2-1.0) mg/dl AST (13-39) U/L ALT (7-52) U/L Alkaline Phosphatase (34-104) U/L Total Creatine Kinase (30-223) U/L Troponin I High Sens (0-20) pg/ml Total Protein (6.0-8.3) gm/dl Albumin (3.4-5.0) gm/dl Globulin (2.5-4.0) gm/dl Albumin/Globulin Ratio (0.9-2) TSH (0.300-4.500) uIu/ml Urine Color Urine Appearance (Clear) Urine pH (4.5-7.5) Ur Specific [place] (1.000-1.030) Urine Protein (Negative) Urine Glucose (UA) (Negative) Urine Ketones (Negative) Urine Blood (Negative) Urine Nitrite (Negative) Urine Bilirubin (Negative) Urine Urobilinogen (Negative) Ur Leukocyte Esterase (Negative) Urine WBC (Auto) (0-5) /hpf Urine RBC (Auto) (0-4) /hpf U Hyaline Cast (Auto) (0-5) /lpf U Epithel Cells (Auto) (0-5) /lpf Urine Bacteria (Auto) (Negative) Ur Renal Epithelial Cell (0-5) /lpf Urine Yeast Urine Osmolality 580 (500-800) mOsm/kg SARS-CoV-2, RNA, NAAT (NEGATIVE) Administered Medications Lactated Ringer's (Lr) 1,000 mls @ 200 mls/hr IV .Q5H ONE Stop: 09/24/22 03:32 Last Admin: 09/23/22 23:15 Dose: 200 mls/hr Documented By: CC Discontinued Medications Sodium Chloride (Nss) 500 mls @ 80 mls/hr IV .Q6H15M AMY Stop: 10/23/22 22:14 Last Admin: 09/23/22 22:25 Dose: 80 mls/hr Documented By: MILADY Imaging Data Radiologist's Impression: Head CT 09/23/22 21:02 Exam(s): CT HEAD Without Contrast EXAM: CT Head Without Intravenous Contrast CLINICAL HISTORY: Reason for exam: falls, hit left post head, plavix. TECHNIQUE: Axial computed tomography images of the head/brain without intravenous contrast. CTDI is 31.69 mGy and DLP is 512.02 mGy-cm. Automated exposure control was utilized for the study. A dose lowering technique was utilized adhering to the principles of ALARA. COMPARISON: No relevant prior studies available. 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 No hemorrhage. Ventricles: Unremarkable. No ventriculomegaly. Bones/joints: Unremarkable. No acute fracture. Soft tissues: Unremarkable. Sinuses: Unremarkable as visualized. No acute sinusitis. Mastoid air cells: Unremarkable as visualized. No mastoid effusion. IMPRESSION: No acute intracranial abnormality Electronically signed by: Henry Donohue MD 09/23/22 21:44 PM Discharge Plan Visit Data Chief Complaint: Fall Stated Complaint: MULTIPLE FALLS TODAY. HIT L SIDE OF HEAD ED Provider: Leno Mendiola Discharge Problem: Falls, Acute hyponatremia Patient Disposition: Being Evaluated by Hospitalist Forms Stand Alone Forms: My [facility] Prescriptions Prescriptions: No Action ranolazine 1,000 mg tablet extended release 12 hr 1,000 mg PO BID amlodipine 5 mg tablet 5 mg PO DAILY isosorbide mononitrate 120 mg tablet extended release 24 hr 120 mg PO QAM clopidogrel 75 mg tablet 75 mg PO DAILY rosuvastatin 20 mg tablet 20 mg PO QAM metoprolol succinate 25 mg tablet extended release 24 hr 25 mg PO BID metformin 500 mg tablet extended release 24 hr 500 mg PO TIDM losartan 50 mg tablet 50 mg PO BID nitroglycerin 0.4 mg Tablet, Sublingual 0.4 mg sublingual .UD PRN (Reason: Chest Pain) Rx Instructions: NEEDED FOR CHEST PAIN : ONE TABLET UNDER THE TONGUE EVERY 5 MINUTES, UP TO THREE DOSES. insulin glargine [Lantus Solostar U-100 Insulin] 100 unit/mL (3 mL) insulin pen 22 unit SUBCUT QAM aspirin 81 mg Tablet,Delayed Release (Dr/Ec) 81 mg PO QAM Referrals Referrals: PCP,NO [Physician] -
[2022-09-23 21:22] LABS: Basophils # (auto) 0.02 K/uL (0-0.2); Basophils % (auto) 0.2 %; Eosinophils # (auto) 0.02 K/uL (0-0.50); Eosinophils % (auto) 0.2 %; Hematocrit (blood only) 31.8 % (42.0-52.0); Hemoglobin 11.2 g/dl (14.0-18.0); Immature Granulocytes # (auto) 0.03 K/uL (0.01-0.20); Immature Granulocytes % (auto) 0.3 %; Lymphocytes # (auto) 1.25 K/uL (1.2-3.4); Mean Corpuscular Hemoglobin 33.9 pg (25.0-34.0); Mean Corpuscular Hgb Conc 35.2 g/dL (32.0-36.0); Mean Corpuscular Volume 96.4 fL (80.0-100.0); Monocytes # (auto) 1.01 K/uL (0.11-0.59); Monocytes % (auto) 10.5 %; Neutrophils # (auto) 7.31 K/uL (1.40-6.50); Neutrophils % (auto) 75.8 %; Platelet Count 121 K/uL (130-400); RDW Coefficient of Variation 12.7 % (11.5-14.5); RDW Standard Deviation 44.7 fL (36.4-46.3); White Blood Count 9.64 K/ul (4.8-10.8)
[2022-09-23 21:33] LABS: Albumin Globulin Ratio 1.3 (0.9-2); BUN Creatinine Ratio 23.8 (10-20); Bilirubin,Total 0.9 mg/dl (0.2-1.0); Calcium 9.5 mg/dl (8.6-10.3); Creatinine Clr Calc Pharmacy 29.2 ml/min; Est GFR (African American) 37.4 ml/min; Est GFR (Non-African American) 32.3 ml/min; Globulin 3.1 gm/dl (2.5-4.0); Potassium 4.8 mmol/L (3.5-5.1); Total Protein 7.1 gm/dl (6.0-8.3)
[2022-09-23 21:40] LABS: Troponin I High Sensitivity 6.5 pg/ml (0-20)
--- NOTE | 2022-09-23 21:45 | CT Scan Report ---
Exam(s): CT HEAD Without Contrast EXAM: CT Head Without Intravenous Contrast CLINICAL HISTORY: Reason for exam: falls, hit left post head, plavix. TECHNIQUE: Axial computed tomography images of the head/brain without intravenous contrast. CTDI is 31.69 mGy and DLP is 512.02 mGy-cm. Automated exposure control was utilized for the study. A dose lowering technique was utilized adhering to the principles of ALARA. COMPARISON: No relevant prior studies available. 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 No hemorrhage. Ventricles: Unremarkable. No ventriculomegaly. Bones/joints: Unremarkable. No acute fracture. Soft tissues: Unremarkable. Sinuses: Unremarkable as visualized. No acute sinusitis. Mastoid air cells: Unremarkable as visualized. No mastoid effusion. IMPRESSION: No acute intracranial abnormality Electronically signed by: Henry Donohue MD 09/23/22 21:44 PM
[2022-09-23 22:02] LABS: Appearance Urine Cloudy (Clear); Bacteria Urine Automated Negative (Negative); Bilirubin Urine Negative (Negative); Blood Urine Negative (Negative); Color Urine Dark Yellow; Epithelial Cell Urine Auto >30 /lpf (0-5); Glucose Urine UA Negative (Negative); Ketones Urine Trace (Negative); Leukocyte Esterase Urine 1+ (Negative); Nitrite Urine Negative (Negative); Protein Urine 2+ (Negative); RBC Urine Automated 0-4 /hpf (0-4); Specific Gravity Urine 1.023 (1.000-1.030); Urobilinogen Urine Negative (Negative)
[2022-09-23] MEDS ORDERED: SODIUM CHLORIDE 0.9% 500 ML IV SCH (22:15)
[2022-09-23 22:20] LABS: Renal Epithelial Cells Urine 0-5 /lpf (0-5)
[2022-09-23] MEDS ORDERED: LACTATED RINGER'S 1,000 ML IV ONE (22:33)
[2022-09-23] MEDS ORDERED: CEFEPIME 2,000 MG/20 ML VIAL IV STA (23:20)
[2022-09-23] MEDS ORDERED: oxyCODONE HCL IR 5 MG TAB (IMMEDIATE RELEASE) PO PRN (23:20)
[2022-09-23] MEDS ORDERED: PROMETHAZINE HCL 6.25 MG in SODIUM CHLORIDE 0.9% 50 ML IV PRN (23:20)
--- NOTE | 2022-09-23 23:24 | History & Physical Report ---
Date of Service September 23, 2022 Assessment & Plan (1) Falls: Plan: Generalized weakness multifactorial : ? symptomatic bradycardia, mild bradycardic episodes noted at the ER Complicated UTI, no sepsis for now ARF on CKD, hyponatremia likely clinical dehydration with note of ketonuria Rule out orthostasis (possible autonomic neuropathy given poorly controlled DM) or progression of aortic stenosis as contributing factors to recurrent falls Acute on chronic anemia hemoglobin drop from baseline FOBT done at the ER was negative hx CAD status post CABG/stent/PVD hypertension, BP noted to be low DM 2 insulin requiring, suboptimal control as of recent hemoglobin A1c of 9.2 last June 2022 past tobacco abuse Medical telemetry Appropriate to decrease maintenance beta-yudi dose given bradycardia Urine CS, Cefepime Monitor creatinine response to IVF, hold losartan for now until creatinine back to baseline Hold other home BP meds except for low-dose beta-yudi for now until BP stable Anemia work-up, transfuse PRBC if hemoglobin less than 8 and for symptomatic anemia Check orthostatic vitals, update TTE Re: Aortic stenosis history Basal bolus insulin, ISS BG goal 1 10-1 40, carb count coverage PT OT eval given recurrent falls DVT prophylaxis. Heparin subcu Full code Patient requesting updates from providers. Ms. Barron Jose, contact #[phone]. Text document was generated using [employer] voice recognition software. It may contain grammatical or spelling errors. Kindly contact undersigned for clarification of any documentation item in question. History of Present Illness Chief Complaint: Weakness, recurrent falls Primary Care Provider: Carola Arrington MD History obtained from patient, family, and records. Medical history significant for CAD status post CABG/stent, PVD, hypertension, valvular heart disease (mild /TR ), DM 2 insulin requiring, CRI (baseline creatinine 1.5 ), chronic anemia (baseline hemoglobin 12 ), skin cancer as per records, past tobacco abuse. Last confinement December 2016 for left knee hematoma secondary to fall. Patient seen at PCPs office 2 months ago for follow-up visit. Patient mentioned 2 falls with occasional dizziness on standing up. Patient noted to have recurrent falls at home today. Both legs weak and giving out. No headache, no chest pain, no dizziness, no shortness of breath. No witnessed seizures. No abdominal pain or diarrhea. Denies black/bloody stools. Patient has no recollection of account of falls at PCPs office 2 months ago. 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 Allergies Allergy/AdvReac Type Severity Reaction Status Date / Time No Known Allergies Allergy Verified 09/23/22 22:13 Home Medications Medication Instructions Recorded Confirmed Type amlodipine 5 mg tablet 5 mg PO DAILY 09/23/22 09/23/22 History aspirin 81 mg tablet,delayed 81 mg PO QAM 09/23/22 09/23/22 History release clopidogrel 75 mg tablet 75 mg PO DAILY 09/23/22 09/23/22 History insulin glargine 100 unit/mL (3 22 unit subcut QAM 09/23/22 09/23/22 History mL) subcutaneous pen (Lantus Solostar U-100 Insulin) isosorbide mononitrate 120 mg 120 mg PO QAM 09/23/22 09/23/22 History tablet,extended release 24 hr losartan 50 mg tablet 50 mg PO BID 09/23/22 09/23/22 History metformin 500 mg tablet,extended 500 mg PO TIDM 09/23/22 09/23/22 History release 24 hr metoprolol succinate 25 mg 25 mg PO BID 09/23/22 09/23/22 History tablet,extended release 24 hr nitroglycerin 0.4 mg sublingual 0.4 mg sublingual .UD PRN Chest 09/23/22 09/23/22 History tablet Pain ranolazine 1,000 mg 1,000 mg PO BID 09/23/22 09/23/22 History tablet,extended release,12 hr rosuvastatin 20 mg tablet 20 mg PO QAM 09/23/22 09/23/22 History Past Med/Surg History Social History Smoking Status: Former smoker Smoking End Date: 30 years ago; Second Hand Exposure: No; Do You Dip or Chew Tobacco: No; Tobacco Cessation Education Requested by Patient: No Hx Alcohol Use: Yes Alcohol type: beer Hx Substance Use: No Preferred Language: Surinamese Communication Ability: Effective Sustainability Specialist Required: No Beliefs That Will Affect Care: None Current Living Situation: Spouse Current Living Situation Comment: Lives w/ at home Other Information That Helps Us Care for You: No Feels Safe at Home: Yes Safety Concerns: Feels Safe At This Time Assistive Devices: Denture - Upper and Glasses Assistive Devices Comment: Upper plate, pt does not have glasses w/ him at this time Review of Systems Review of Systems: As per HPI, all other systems reviewed and negative Physical Exam Physical Exam: GENERAL: Slightly uncomfortable, slightly anxious, slightly hard of hearing, no respiratory distress SKIN: Pallor, warm HEENT: Partial alopecia, pale palpebral conjunctivae, no ptosis, dry buccal mucosa NECK : Supple, no tenderness CHEST : CTA, no tenderness HEART : Bradycardic, systolic murmur ABDOMEN: no distention, nontender RECTAL : Intact sphincter, brown stool (FOBT negative) EXTREMITIES : No LE swelling/tenderness, no other conspicuous deformities noted NEUROLOGIC : Coherent, no facial asymmetry, intention tremors, mild hearing impairment, gait and stance not assessed Results & Data Results & Data Vital Signs (Past 12 Hours) Vital Signs Temp Pulse Resp BP Pulse Ox O2 Del Method 09/23/22 22:00 57 L 16 104/57 L 97 09/23/22 21:42 76 16 09/23/22 21:00 61 20 93 09/23/22 20:48 66 19 94 09/23/22 20:52 36.9 C 64 20 104/58 L 94 Room Air 09/23/22 20:52 64 Laboratory Results Laboratory Results WBC 9.64 K/ul (4.8-10.8) 09/23/22 21:00 RBC 3.30 M/uL (4.70-6.10) L 09/23/22 21:00 Hgb 11.2 g/dl (14.0-18.0) L 09/23/22 21:00 Hct 31.8 % (42.0-52.0) L 09/23/22 21:00 MCV 96.4 fL (80.0-100.0) 09/23/22 21:00 MCH 33.9 pg (25.0-34.0) 09/23/22 21:00 MCHC 35.2 g/dL (32.0-36.0) 09/23/22 21:00 RDW Std Deviation 44.7 fL (36.4-46.3) 09/23/22 21:00 RDW Coeff of Venancio 12.7 % (11.5-14.5) 09/23/22 21:00 Plt Count 121 K/uL (130-400) L 09/23/22 21:00 MPV 10.0 fL (9.4-12.4) 09/23/22 21:00 Immature Gran % (Auto) 0.3 % 09/23/22 21:00 Neut % (Auto) 75.8 % 09/23/22 21:00 Lymph % (Auto) 13.0 % 09/23/22 21:00 Motley % (Auto) 10.5 % 09/23/22 21:00 Eos % (Auto) 0.2 % 09/23/22 21:00 Baso % (Auto) 0.2 % 09/23/22 21:00 Neut # (Auto) 7.31 K/uL (1.40-6.50) H 09/23/22 21:00 Lymph # (Auto) 1.25 K/uL (1.2-3.4) 09/23/22 21:00 Motley # (Auto) 1.01 K/uL (0.11-0.59) H 09/23/22 21:00 Eos # (Auto) 0.02 K/uL (0-0.50) 09/23/22 21:00 Baso # (Auto) 0.02 K/uL (0-0.2) 09/23/22 21:00 Immature Gran # (Auto) 0.03 K/uL (0.01-0.20) 09/23/22 21:00 Sodium 129 mmol/L (136-145) L 09/23/22 21:00 Potassium 4.8 mmol/L (3.5-5.1) 09/23/22 21:00 Chloride 97 mmol/L (98-107) L 09/23/22 21:00 Carbon Dioxide 20 mmol/L (21-32) L 09/23/22 21:00 Anion Gap 12 (3-11) H 09/23/22 21:00 BUN 44 mg/dl (6-23) H 09/23/22 21:00 Creatinine 1.85 mg/dl (0.6-1.4) H 09/23/22 21:00 Est Cr Clr Drug Dosing 29.2 ml/min 09/23/22 21:00 Est GFR ( Amer) 37.4 ml/min 09/23/22 21:00 Est GFR (Non-Af Amer) 32.3 ml/min 09/23/22 21:00 BUN/Creatinine Ratio 23.8 (10-20) H 09/23/22 21:00 Glucose 219 mg/dl (70-99(Fasting)) H 09/23/22 21:00 Osmolality 290 mOsm/kg (280-300) 09/23/22 22:07 Calcium 9.5 mg/dl (8.6-10.3) 09/23/22 21:00 Magnesium 2.0 mg/dl (1.7-2.4) 09/23/22 21:00 Total Bilirubin 0.9 mg/dl (0.2-1.0) 09/23/22 21:00 AST 20 U/L (13-39) 09/23/22 21:00 ALT 15 U/L (7-52) 09/23/22 21:00 Alkaline Phosphatase 39 U/L (34-104) 09/23/22 21:00 Total Creatine Kinase 188 U/L (30-223) 09/23/22 21:00 Troponin I High Sens 6.5 pg/ml (0-20) 09/23/22 21:00 Total Protein 7.1 gm/dl (6.0-8.3) 09/23/22 21:00 Albumin 4.0 gm/dl (3.4-5.0) 09/23/22 21:00 Globulin 3.1 gm/dl (2.5-4.0) 09/23/22 21:00 Albumin/Globulin Ratio 1.3 (0.9-2) 09/23/22 21:00 TSH 3.046 uIu/ml (0.300-4.500) 09/23/22 21:00 Urine Color Dark Yellow 09/23/22 21:45 Urine Appearance Cloudy (Clear) A 09/23/22 21:45 Urine pH 5.0 (4.5-7.5) 09/23/22 21:45 Ur Specific [place] 1.023 (1.000-1.030) 09/23/22 21:45 Urine Protein 2+ (Negative) H 09/23/22 21:45 Urine Glucose (UA) Negative (Negative) 09/23/22 21:45 Urine Ketones Trace (Negative) H 09/23/22 21:45 Urine Blood Negative (Negative) 09/23/22 21:45 Urine Nitrite Negative (Negative) 09/23/22 21:45 Urine Bilirubin Negative (Negative) 09/23/22 21:45 Urine Urobilinogen Negative (Negative) 09/23/22 21:45 Ur Leukocyte Esterase 1+ (Negative) H 09/23/22 21:45 Urine WBC (Auto) 10-30 /hpf (0-5) H 09/23/22 21:45 Urine RBC (Auto) 0-4 /hpf (0-4) 09/23/22 21:45 U Hyaline Cast (Auto) 1-5 /lpf (0-5) 09/23/22 21:45 U Epithel Cells (Auto) >30 /lpf (0-5) H 09/23/22 21:45 Urine Bacteria (Auto) Negative (Negative) 09/23/22 21:45 Ur Renal Epithelial Cell 0-5 /lpf (0-5) 09/23/22 21:45 Urine Yeast Not Reportable 09/23/22 21:45 Urine Osmolality 580 mOsm/kg (500-800) 09/23/22 22:38 SARS-CoV-2, RNA, NAAT NEGATIVE (NEGATIVE) 09/23/22 21:[address] 09/23/22 21:02 Exam(s): CT HEAD Without Contrast EXAM: CT Head Without Intravenous Contrast CLINICAL HISTORY: Reason for exam: falls, hit left post head, plavix. TECHNIQUE: Axial computed tomography images of the head/brain without intravenous contrast. CTDI is 31.69 mGy and DLP is 512.02 mGy-cm. Automated exposure control was utilized for the study. A dose lowering technique was utilized adhering to the principles of ALARA. COMPARISON: No relevant prior studies available. 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 No hemorrhage. Ventricles: Unremarkable. No ventriculomegaly. Bones/joints: Unremarkable. No acute fracture. Soft tissues: Unremarkable. Sinuses: Unremarkable as visualized. No acute sinusitis. Mastoid air cells: Unremarkable as visualized. No mastoid effusion. IMPRESSION: No acute intracranial abnormality Electronically signed by: Henry Donohue MD 09/23/22 21:44 PM Diagnostic Findings Chest x-ray per my interpretation atelectasis, cardiomegaly EKG as per my interpretation : Rate 60, NSR, normal axis, RBBB, J-point elevatio n inferior leads Code Status & VTE Plan VTE Prophylaxis Plan VTE Prophylaxis will be ordered: Yes (1) Falls Encounter type: initial encounter Qualified Code(s): W19.XXXA - Unspecified fall, initial encounter
[2022-09-24] MEDS ORDERED: GLUCOSE 40% GEL 15 GM TUBE PO PRN (00:42)
[2022-09-24] MEDS ORDERED: CARBOHYDRATES FOR HYPOGLYCEMIA PO PRN (00:42)
[2022-09-24] MEDS ORDERED: ACETAMINOPHEN 325 MG TAB PO PRN (00:42)
[2022-09-24] MEDS ORDERED: DEXTROSE 50% 50 ML SYRINGE IV PRN (00:42)
[2022-09-24] MEDS ORDERED: GLUCOSE 10 TAB/TUBE PO PRN (00:42)
[2022-09-24] MEDS ORDERED: GLUCAGON FOR INJ 1 MG VIAL SQ PRN (00:42)
[2022-09-24] MEDS: INSULIN ASPART PER UNIT CHARGE SC SCH ×5 (01:16→20:45)
[2022-09-24 01:42] LABS: Base Excess VBG -1.5 mEq/L; HCO3 VBG 23 mmol/L; Oxygen Saturation VBG 66.8 %; PCO2 VBG 37 mmHg (38-50); PO2 VBG 36 mmHg
[2022-09-24 01:49] LABS: Reticulocyte % 1.9 % (0.5-2.0); Reticulocytes # 0.06 10^6/uL (0.02-0.10)
[2022-09-24 02:04] LABS: BUN Creatinine Ratio 24.6 (10-20); Calcium 9.2 mg/dl (8.6-10.3); Creatinine Clr Calc Pharmacy 31.6 ml/min; Est GFR (African American) 41.1 ml/min; Est GFR (Non-African American) 35.5 ml/min; Potassium 4.5 mmol/L (3.5-5.1)
[2022-09-24] MEDS ORDERED: POLYETHYLENE (MIRALAX) 17 GM PACK PO PRN (02:17)
[2022-09-24 02:24] LABS: Ferritin 82.8 ng/ml (8-388)
[2022-09-24] MEDS: HEPARIN SOD 5,000 UNIT/0.5 ML VIAL SQ SCH ×3 (05:00→21:06)
[2022-09-24 07:12] LABS: Basophils # (auto) 0.02 K/uL (0-0.2); Basophils % (auto) 0.3 %; Eosinophils # (auto) 0.04 K/uL (0-0.50); Eosinophils % (auto) 0.6 %; Hematocrit (blood only) 30.4 % (42.0-52.0); Hemoglobin 10.7 g/dl (14.0-18.0); Immature Granulocytes # (auto) 0.04 K/uL (0.01-0.20); Immature Granulocytes % (auto) 0.6 %; Lymphocytes # (auto) 1.54 K/uL (1.2-3.4); Lymphocytes % (auto) 21.4 %; Mean Corpuscular Hemoglobin 33.1 pg (25.0-34.0); Mean Corpuscular Hgb Conc 35.2 g/dL (32.0-36.0); Mean Corpuscular Volume 94.1 fL (80.0-100.0); Monocytes # (auto) 0.75 K/uL (0.11-0.59); Monocytes % (auto) 10.4 %; Neutrophils # (auto) 4.81 K/uL (1.40-6.50); Neutrophils % (auto) 66.7 %; Platelet Count 123 K/uL (130-400); RDW Coefficient of Variation 12.4 % (11.5-14.5); RDW Standard Deviation 42.9 fL (36.4-46.3); Red Blood Count 3.23 M/uL (4.70-6.10)
[2022-09-24 07:18] LABS: BUN Creatinine Ratio 24.3 (10-20); Calcium 8.9 mg/dl (8.6-10.3); Creatinine Clr Calc Pharmacy 34.4 ml/min; Est GFR (African American) 47.4 ml/min; Est GFR (Non-African American) 40.9 ml/min; Potassium 4.2 mmol/L (3.5-5.1)
[2022-09-24] MEDS: METOPROLOL TARTRATE 25 MG TAB PO SCH ×2 (08:23→20:08)
[2022-09-24] MEDS: CLOPIDOGREL BISULFATE 75 MG TAB PO SCH (08:23)
[2022-09-24] MEDS: ASPIRIN 81 MG ECTAB PO SCH (08:23)
--- NOTE | 2022-09-24 08:27 | XRay Report ---
SINGLE VIEW CHEST CLINICAL HISTORY: Falls. FINDINGS: An AP, portable, upright chest radiograph is compared to study dated 06/21/2016. The patient is status post midline sternotomy. The heart is enlarged noting atherosclerotic calcification of the thoracic aorta. The pulmonary vasculature is noncongested. There are left basilar airspace opacities. No large pleural effusion or pneumothorax is seen. The skeletal structures are osteopenic. The bony thorax is grossly intact. Degenerative change is noted in the shoulders and spine. IMPRESSION: 1. Cardiomegaly without radiographic evidence of congestive failure. 2. Left basilar opacities likely represent scarring/atelectasis. Correlate clinically for evidence of a mild infectious/inflammatory pneumonitis. Follow-up radiographically as needed. ACT 112: Negative or not required by law. Electronically signed by: Luc Johnson M.D. 09/24/2022 8:25 AM
[2022-09-24] MEDS: LANTUS PER UNIT CHARGE SQ SCH (08:29)
[2022-09-24] MEDS ORDERED: NITROGLYCERIN SL 0.4 MG/TAB TAB SL PRN (08:51)
[2022-09-24] MEDS ORDERED: LANTUS PER UNIT CHARGE SQ SCH (09:00)
[2022-09-24] MEDS ORDERED: METOPROLOL SUCC 25MG EXT REL TAB PO SCH (09:00)
[2022-09-24] MEDS: RANOLAZINE 500 MG ER TAB PO SCH ×2 (10:36→20:08)
[2022-09-24] MEDS: ROSUVASTATIN CALCIUM 20 MG TAB PO SCH (10:36)
[2022-09-24] MEDS: CEFEPIME 1,000 MG in SYRINGE 0 ML IV SCH ×2 (13:02→23:06)
[2022-09-24] MEDS ORDERED: SODIUM CHLORIDE 0.9% 1000ML 1,000 ML IV ONE (13:21)
--- NOTE | 2022-09-24 15:49 | Hospitalist Progress Note ---
Date of Service September 24, 2022 Assessment & Plan (1) Falls: Plan: Generalized weakness Likely multifactorial: KIKI, suspected pneumonitis/UTI/? Viral illness Patient states that he has been having URI symptoms for the past 2 weeks. Patient's had similar symptoms and recovered as well. COVID screen negative Procalcitonin 0.05 TSH normal Check respiratory panel -- Urine culture pending Continue empiric cefepime, Add Doxy PT OT, fall precautions Monitor on telemetry given intermittent bradycardia KIKI on CKD III Cr: 1.85>> 1.5 Hold losartan Received IV fluids Monitor renal function Avoid nephrotoxic agents as able Recurrent falls Check orthostatics Fall precautions PT OT Acute on chronic anemia Thrombocytopenia FOBT in ED negative Anemia work-up ordered No obvious source of bleeding Monitor CBC CAD S/P CABG/stent/PVD Continue aspirin, Plavix, metoprolol, Ranexa Ranexa, Metoprolol dose decreased given relatively low blood pressure/Bradycardia--Will readjust once BP better Resume isosorbide as able Hypertension Continue metoprolol with holding parameter Resume losartan as able Monitor DM II Last HbA1c 9.25 2022 Continue insulin while hospitalized Monitor BGs DVT Px: Heparin SQ Code Status Full code Admission and Anticipated Discharge Date Admission Date: September 23, 2022 Subjective Patient is seen and examined at bedside States having generalized weakness Also reports cough with minimal expectoration Denies any chest pain, dyspnea, dizziness, nausea, vomiting, abdominal pain No other complaints Discussed with patient's family at bedside Review of Systems Review of Systems: All systems reviewed & are unremarkable except as noted in Subjective Physical Exam Physical Exam: Physical Exam: Vitals signs as noted above General Appearance: Thin, frail, elderly, no apparent distress Head: normocephalic, Atraumatic Eyes: normal inspection, EOMI Neck: supple, Trachea midline Respiratory/Chest: Decreased breath sounds, CTA, No accessory muscle use Cardiovascular: S1, S2, + murmur Abdomen/GI:Soft, Non tender, Bowel sounds present Extremities/Musculoskeletal:normal inspection, no edema Neurologic/Psych:AAOX3, grossly no focal neurological deficits Skin: normal color, warm Results & Data Results & Data Vital Signs (Past 12 Hours) Vital Signs Temp Pulse Pulse Resp BP Pulse Ox O2 Del Method 09/24/22 14:32 Room Air 09/24/22 11:50 36.3 C L 64 16 145/62 H 95 Room Air 09/24/22 07:33 62 09/24/22 04:00 36.5 C 55 L 19 105/56 L 95 Room Air Laboratory Results Short CBC 09/23/22 09/24/22 Range/Units 21:00 06:36 WBC 9.64 7.20 (4.8-10.8) K/ul Hgb 11.2 L 10.7 L (14.0-18.0) g/dl Hct 31.8 L 30.4 L (42.0-52.0) % Plt Count 121 L 123 L (130-400) K/uL BMP 09/23/22 09/24/22 09/24/22 21:00 01:27 06:36 Sodium 129 L 130 L 134 L Potassium 4.8 4.5 4.2 Chloride 97 L 99 102 Carbon Dioxide 20 L 22 25 BUN 44 H 42 H 37 H Creatinine 1.85 H 1.71 H 1.52 H Glucose 219 H 212 H 133 H Calcium 9.5 9.2 8.9 Cardiac Enzymes 09/23/22 09/24/22 Range/Units 21:00 01:27 Total Creatine Kinase 188 209 (30-223) U/L Liver Function 09/23/22 Range/Units 21:00 Total Bilirubin 0.9 (0.2-1.0) mg/dl AST 20 (13-39) U/L ALT 15 (7-52) U/L Alkaline Phosphatase 39 (34-104) U/L Albumin 4.0 (3.4-5.0) gm/dl Urine 09/23/22 Range/Units 21:45 Urine Color Dark Yellow Urine Appearance Cloudy A (Clear) Urine pH 5.0 (4.5-7.5) Ur Specific [place] 1.023 (1.000-1.030) Urine Protein 2+ H (Negative) Urine Glucose (UA) Negative (Negative) (1) Falls Encounter type: initial encounter Qualified Code(s): W19.XXXA - Unspecified fall, initial encounter
[2022-09-24 18:01] LABS: Adenovirus PCR Not Detected (NotDetected); Bordetella parapertussis PCR Not Detected (NotDetected); Bordetella pertussis PCR Not Detected (NotDetected); Chlamydia pneumoniae PCR Not Detected (NotDetected); Coronavirus 229E PCR Not Detected (NotDetected); Coronavirus CoV-2 (COVID19)PCR Not Detected (NotDetected); Coronavirus HKU1 PCR Not Detected (NotDetected); Coronavirus NL63 PCR Not Detected (NotDetected); Coronavirus OC43PCR Not Detected (NotDetected); Human Metapneumovirus PCR Not Detected (NotDetected); Influenza A PCR Not Detected (NotDetected); Influenza B PCR Not Detected (NotDetected); Mycoplasma pneumoniae PCR Not Detected (NotDetected); Parainfluenza Virus 1 PCR Not Detected (NotDetected); Parainfluenza Virus 2 PCR Not Detected (NotDetected); Parainfluenza Virus 3 PCR Not Detected (NotDetected); Parainfluenza Virus 4 PCR Not Detected (NotDetected); Respiratory Syncytial VirusPCR Not Detected (NotDetected); Rhinovirus/Enterovirus PCR Not Detected (NotDetected)
[2022-09-24] MEDS: DOXYCYCLINE HYCLATE 100 MG CAP PO SCH (20:09)
--- NOTE | 2022-09-25 02:43 | Communication Note ---
Date of Service: September 25, 2022 Patient noted to be in rapid A-fib on the monitor as per RN. Transient shortness of breath without chest pain as per RN. AP New onset A-fib Home beta-yudi decreasing dose due to bradycardia/falling episodes on admission Resume home beta-yudi dose Check a.m. electrolytes now Cardiology consult Re: New onset A-fib PCU transfer if heart rate uncontrolled after a.m. beta-yudi dose administration.
[2022-09-25] MEDS ORDERED: METOPROLOL TARTRATE 25 MG TAB PO SCH (02:45)
[2022-09-25 04:10] LABS: Basophils # (auto) 0.02 K/uL (0-0.2); Basophils % (auto) 0.3 %; Eosinophils # (auto) 0.07 K/uL (0-0.50); Hematocrit (blood only) 33.7 % (42.0-52.0); Immature Granulocytes # (auto) 0.02 K/uL (0.01-0.20); Immature Granulocytes % (auto) 0.3 %; Lymphocytes # (auto) 1.22 K/uL (1.2-3.4); Lymphocytes % (auto) 17.5 %; Mean Corpuscular Hemoglobin 34.3 pg (25.0-34.0); Mean Corpuscular Hgb Conc 35.6 g/dL (32.0-36.0); Mean Corpuscular Volume 96.3 fL (80.0-100.0); Mean Platelet Volume 9.6 fL (9.4-12.4); Monocytes # (auto) 0.71 K/uL (0.11-0.59); Monocytes % (auto) 10.2 %; Neutrophils # (auto) 4.93 K/uL (1.40-6.50); Neutrophils % (auto) 70.7 %; Platelet Count 121 K/uL (130-400); RDW Coefficient of Variation 12.7 % (11.5-14.5); RDW Standard Deviation 44.3 fL (36.4-46.3); White Blood Count 6.97 K/ul (4.8-10.8)
[2022-09-25 04:24] LABS: BUN Creatinine Ratio 20.7 (10-20); Calcium 8.5 mg/dl (8.6-10.3); Creatinine Clr Calc Pharmacy 36.1 ml/min; Est GFR (African American) 50.2 ml/min; Est GFR (Non-African American) 43.3 ml/min; Magnesium 1.8 mg/dl (1.7-2.4); Potassium 4.3 mmol/L (3.5-5.1)
[2022-09-25] MEDS ORDERED: SODIUM CHLORIDE 0.9% 1000ML 1,000 ML IV ONE (04:37)
[2022-09-25 04:40] LABS: Partial Thromboplastin Ratio 1.2
[2022-09-25] MEDS: MAGNESIUM SULFATE / D5W 1 GM/100 ML BAG IV SCH ×2 (04:50→06:44)
[2022-09-25] MEDS: HEPARIN SOD 5,000 UNIT/0.5 ML VIAL SQ SCH (05:00)
--- NOTE | 2022-09-25 05:43 | Electrocardiogram Report ---
Test Reason : Blood Pressure : / mmHG Vent. Rate : 061 BPM Atrial Rate : 061 BPM P-R Int : 182 ms QRS Dur : 164 ms QT Int : 480 ms P-R-T Axes : 028 064 049 degrees QTc Int : 483 ms Normal sinus rhythm Right bundle branch block Abnormal ECG When compared with ECG of 27-DEC-2016 08:23, No significant change was found Confirmed by Magnus Og ([id number]) on 09/25/2022 5:42:43 AM Referred By: REFERRED SELF Confirmed By:Magnus Og
[2022-09-25] MEDS: CLOPIDOGREL BISULFATE 75 MG TAB PO SCH (07:32)
[2022-09-25] MEDS: ROSUVASTATIN CALCIUM 20 MG TAB PO SCH (07:32)
[2022-09-25] MEDS: RANOLAZINE 500 MG ER TAB PO SCH ×2 (07:32→20:41)
[2022-09-25] MEDS: ASPIRIN 81 MG ECTAB PO SCH (07:32)
--- NOTE | 2022-09-25 07:47 | XRay Report ---
SINGLE VIEW CHEST CLINICAL HISTORY: Dyspnea FINDINGS: 2 AP, portable, upright chest radiographs are compared to study dated 09/23/2022. The patient is status post midline sternotomy. The heart is enlarged noting atherosclerotic calcification of the thoracic aorta. The pulmonary vasculature is noncongested. Chronic interstitial thickening is simila r to previous. Airspace opacity are again seen at the left lung base. No large pleural effusion or pn eumothorax is identified. The skeletal structures are osteopenic. The bony thorax is grossly intact. Arthritic change is seen in the shoulders. IMPRESSION: 1. Cardiomegaly without radiographic evidence of congestive failure. 2. Left basilar opacities are unchanged. Correlate clinically. ACT 112: Negative or not required by law. Electronically signed by: Luc Johnson M.D. 09/25/2022 7:46 AM
[2022-09-25] MEDS: INSULIN ASPART PER UNIT CHARGE SC SCH ×4 (08:30→20:41)
[2022-09-25] MEDS: DOXYCYCLINE HYCLATE 100 MG CAP PO SCH ×2 (08:31→20:41)
[2022-09-25] MEDS: LANTUS PER UNIT CHARGE SQ SCH (08:32)
--- NOTE | 2022-09-25 08:43 | Cardiology Consultation ---
Date of Consultation September 25, 2022 Assessment & Plan (1) Paroxysmal atrial fibrillation: (2) CAD (coronary artery disease): (3) S/P CABG x 3: (4) Falls: Plan 87-year-old patient admitted with frequent falls. Developed rapid atrial fibrillation last night without associated symptoms. Heart rate remains borderline elevated today. Recommend addition of IV heparin while inpatient due to elevated stroke risk and amiodarone in attempt to restore sinus rhythm. Patient is not a strong candidate for long-term anticoagulation due to frequent falls. Hold metoprolol due to concerns regarding symptomatic bradycardia in the ER. Monitor telemetry. Replace electrolytes as indicated. History of Present Illness Reason for Consultation: Atrial fibrillation Requesting Physician: Dr. Hayes Attending Physician: Can Batista MD History of Present Illness 87-year-old male presented to the emergency department 09/23/2022 with falls at home. Reports leg weakness. Bradycardia and borderline hypotension noted on presentation prompting reduction of beta-yudi to 25mg once daily. Patient developed rapid atrial fibrillation at 130 AM. Essentially asymptomatic. Metoprolol increased to 25 mg twice daily overnight. Denies chest pain or shortness of breath. Telemetry reveals atrial fibrillation in the 90s. Daughter present at bedside. Voices concern regarding frequent falls. No significant injuries. She has copy of patient's living will for the medical record. She offers no other concerns/complaints. Cardiac history is copied from the [facility] medical record: 1. Atherosclerotic coronary disease status post coronary bypass grafting November of 2008 for diffuse coronary disease, receiving REYES graft to LAD, saphenous vein graft to left circumflex, saphenous vein graft to the posterior descending artery. 2. Coronary intervention August of 2009, receiving drug-eluting stent to the left circumflex, obtuse marginal, and right coronary artery with patent REYES graft, occluded saphenous vein grafts 3. Cardiac catheterization 2011 without progression of disease, branch vessel marginal disease and chronic right coronary occlusion 4. 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 5. Hypertension. 6. Hyperlipidemia. 7. Mild nonrheumatic, calcific aortic valve stenosis 8. Right bundle-branch block 9. CKD stage 3 Allergies Allergy/AdvReac Type Severity Reaction Status Date / Time No Known Allergies Allergy Verified 09/23/22 22:13 Home Medications Medication Instructions Recorded Confirmed Type amlodipine 5 mg tablet 5 mg PO DAILY 09/23/22 09/23/22 History aspirin 81 mg tablet,delayed 81 mg PO QAM 09/23/22 09/23/22 History release clopidogrel 75 mg tablet 75 mg PO DAILY 09/23/22 09/23/22 History insulin glargine 100 unit/mL (3 22 unit subcut QAM 09/23/22 09/23/22 History mL) subcutaneous pen (Lantus Solostar U-100 Insulin) isosorbide mononitrate 120 mg 120 mg PO QAM 09/23/22 09/23/22 History tablet,extended release 24 hr losartan 50 mg tablet 50 mg PO BID 09/23/22 09/23/22 History metformin 500 mg tablet,extended 500 mg PO TIDM 09/23/22 09/23/22 History release 24 hr metoprolol succinate 25 mg 25 mg PO BID 09/23/22 09/23/22 History tablet,extended release 24 hr nitroglycerin 0.4 mg sublingual 0.4 mg sublingual .UD PRN Chest 09/23/22 09/23/22 History tablet Pain ranolazine 1,000 mg 1,000 mg PO BID 09/23/22 09/23/22 History tablet,extended release,12 hr rosuvastatin 20 mg tablet 20 mg PO QAM 09/23/22 09/23/22 History Patient History Social History Smoking Status: Former smoker Smoking End Date: 30 years ago; Second Hand Exposure: No; Do You Dip or Chew Tobacco: No; Tobacco Cessation Education Requested by Patient: No Hx Alcohol Use: Yes Alcohol type: beer Hx Substance Use: No Preferred Language: Nicar[place]uan Communication Ability: Effective Wood [employer]ence [employer] Required: No Beliefs That Will Affect Care: None Current Living Situation: Spouse Current Living Situation Comment: Lives w/ at home Other Information That Helps Us Care for You: No Feels Safe at Home: Yes Safety Concerns: Feels Safe At This Time Assistive Devices: Glasses Assistive Devices Comment: Upper plate, pt does not have glasses w/ him at this time Review of Systems Review of Systems: All systems reviewed & are unremarkable except as noted in Subjective Physical Exam Constitutional: well nourished; no acute distress Respiratory: no respiratory distress, no labored breathing and no retractions Auscultation: + crackles (B/L bases); no wheezes Gastrointestinal (Abdomen): Inspection/Auscultation: abdomen not distended and + abnormal bowel sounds Percussion/Palpation: abdomen soft; abdomen nontender, no guarding and abdomen not rigid Neurologic: CN's II-XI intact bilaterally and moves all extremities; no focal motor deficits Motor/Sensory: no tremor Results & Data Vital Signs (Past 12 Hours) Vital Signs Temp Pulse Pulse Resp BP BP Pulse Ox 09/25/22 07:19 36.3 C L 94 H 18 129/84 94 09/25/22 03:43 107 H 18 131/84 96 09/25/22 02:39 36.8 C 118 H 16 141/91 H 97 09/25/22 00:09 37.2 C 62 18 145/73 H 92 09/24/22 22:00 62 O2 Del Method O2 Flow Rate 09/25/22 07:19 Room Air 09/25/22 03:43 Nasal Cannula 2 09/25/22 02:39 Nasal Cannula 2 09/25/22 00:09 Room Air 09/24/22 22:00 Laboratory Results Coagulation 09/25/22 Range/Units 03:54 APTT 33.0 H (21.0-31.0) Seconds CBC 09/25/22 Range/Units 03:54 WBC 6.97 (4.8-10.8) K/ul RBC 3.50 L (4.70-6.10) M/uL Hgb 12.0 L (14.0-18.0) g/dl Hct 33.7 L (42.0-52.0) % Plt Count 121 L (130-400) K/uL Neut # (Auto) 4.93 (1.40-6.50) K/uL Lymph # (Auto) 1.22 (1.2-3.4) K/uL [place] # (Auto) 0.71 H (0.11-0.59) K/uL Eos # (Auto) 0.07 (0-0.50) K/uL Baso # (Auto) 0.02 (0-0.2) K/uL Comprehensive Metabolic Panel 09/25/22 Range/Units 03:54 Sodium 135 L (136-145) mmol/L Potassium 4.3 (3.5-5.1) mmol/L Chloride 102 (98-107) mmol/L Carbon Dioxide 22 (21-32) mmol/L BUN 30 H (6-23) mg/dl Creatinine 1.45 H (0.6-1.4) mg/dl Glucose 147 H (70-99(Fasting)) mg/dl Calcium 8.5 L (8.6-10.3) mg/dl Intake and Output 09/24/22 09/25/22 09/25/22 22:59 06:59 14:59 Intake Total 240 / 2322.5 1262.5 / 2322.5 Output Total 1050 / 2675 1225 / 2675 Balance -810 / -352.5 37.5 / -352.5 Intake: IV 1082.5 / 1082.5 Magnesium Sulfate / D5w 1 gm In 100 / 100 100 ml @ 50 mls/hr IV Q2H [facility] Rx#:[id number] Sodium Chloride 0.9% 1000ML 1, 982.5 / 982.5 000 ml @ 75 mls/hr IV .[id number] ONE Rx#:[id number] Oral 240 / 1240 180 / 1240 Output: Urine 1050 / 2675 1225 / 2675 Other: Weight 69.1 kg Weight Measurement Method Built in [facility] Diagnostic Findings 2D echocardiogram report 09/24/2022: Left ventricular ejection fraction 65-70% Moderate aortic valve sclerosis without stenosis Mild tricuspid regurgitation without evidence of pulmonary hypertension. 2D echo report 02/26/2021: The LV wall thickness is mildly increased (concentric). The left ventricular wall motion is normal. The qualitative LV ejection fraction is 55-59% (normal). The left ventricular diastolic function is mildly abnormal (grade I). Mild aortic valve stenosis is present. Mild tricuspid regurgitation is present. There is no evidence of pulmonary hypertension. The aortic root is mildly enlarged with diameter of 4 cm. The proximal ascending thoracic aorta is mildly enlarged with diameter of 4.1 cm. Compared to the report of the piror study dated 01/22/19, there has been no significant interval change. (4) Falls Encounter type: initial encounter Qualified Code(s): W19.XXXA - Unspecified fall, initial encounter
[2022-09-25] MEDS ORDERED: METOPROLOL SUCC 25MG EXT REL TAB PO SCH ×3 (09:00→21:00)
[2022-09-25] MEDS ORDERED: Heparin IV Adult Wt-Based Standard WITH Bolus Protocol IV SCH (09:28)
[2022-09-25] MEDS ORDERED: 0.2 MICRON FILTER SET 1 EACH IV STA (09:32)
[2022-09-25] MEDS ORDERED: AMIODARONE / D5W 150 MG/100 ML BAG IV STA (09:32)
[2022-09-25] MEDS ORDERED: AMIODARONE IV BOLUS & DRIP IV STA (09:32)
[2022-09-25] MEDS ORDERED: STAT IV Infusion **Titration per Protocol STA (09:32)
[2022-09-25] MEDS ORDERED: AMIODARONE / D5W 360 MG/200 ML BAG IV ONE (09:42)
[2022-09-25] MEDS ORDERED: HEPARIN SOD (PORCINE) 1000 UNIT/ML IV ONE (09:45)
[2022-09-25] MEDS: HEPARIN SODIUM/DEXTROSE 25,000 UNITS/500 ML BAG IV SCH (10:37)
[2022-09-25 10:48] LABS: Partial Thromboplastin Ratio 1.2; Partial Thromboplastin Time 32.9 Seconds (21.0-31.0)
[2022-09-25] MEDS: AMIODARONE 200 MG TAB PO SCH ×2 (12:05→17:03)
[2022-09-25] MEDS: cefTRIAXone SODIUM 2,000 MG in DEXTROSE 5% 50 ML IV SCH (12:05)
[2022-09-25] MEDS ORDERED: AMIODARONE / D5W 360 MG/200 ML BAG IV SCH (15:45)
[2022-09-25 17:08] LABS: Partial Thromboplastin Time 113.1 Seconds (21.0-31.0)
--- NOTE | 2022-09-25 17:08 | Hospitalist Progress Note ---
Date of Service September 25, 2022 Assessment & Plan (1) Falls: Plan: Generalized weakness Likely multifactorial: KIKI, suspected pneumonitis/UTI/? Viral illness Patient states that he has been having URI symptoms for the past 2 weeks. Patient's had similar symptoms and recovered as well. COVID screen negative Procalcitonin 0.05 TSH normal Check respiratory panel -- Urine culture no growth Continue ceftriaxone and doxycycline D3 PT OT, fall precautions: He and family prefers PT OT at home. New onset A.fib with RVR Overnight, on 09/25/2022atient went into A-fib with RVR Echocardiogram shows EF of 65 to 70% with mild concentric left ventricular hypertrophy Cardiology consulted; currently on oral amiodarone and heparin. KIKI on CKD III Labs reviewed; Cr: 1.85>> 1.45 Received IV fluids Monitor renal function Avoid nephrotoxic agents as able Recurrent falls Check orthostatics Fall precautions PT OT Acute on chronic anemia Thrombocytopenia FOBT in ED negative Anemia work-up ordered No obvious source of bleeding Monitor CBC CAD S/P CABG/stent/PVD Continue aspirin, Plavix, metoprolol, Ranexa Ranexa, Metoprolol dose decreased given relatively low blood pressure/Bradycardia Resume isosorbide as able Hypertension Continue metoprolol with holding parameter Resume losartan as able Monitor DM II Last HbA1c 9.25 2022 Continue insulin while hospitalized Monitor BGs DVT Px: Heparin drip Code Status Full code Time spent evaluating patient, direct bedside care, chart review, placing orders, interpretation of diagnostic studies, discussion with consultants, patient, and family members, as well as other required patient management a ctivities is 60 minutes. Please note the above document was generated using voice recognition software. It may contain grammatical, syntax or spelling errors. Any formal questions or concerns about the content, text or information contained within the body of this dictation should be directly addressed to the provider for clarification Admission and Anticipated Discharge Date Admission Date: September 23, 2022 Subjective Patient seen and examined at bedside. His and daughter were also at the bedside. Patient reports that weakness has improved compared to yesterday. Hemodynamically stable; saturating well on room air Overnight, patient converted to A-fib with RVR with ventricular rate in 110s. He was started on metoprolol. Ventricular rate in a.m. in 80s to 90s. Review of Systems Review of Systems: All systems reviewed & are unremarkable except as noted in Subjective Physical Exam Physical Exam: Physical Exam: Vitals signs as noted above General Appearance: Thin, frail, elderly, no apparent distress Head: normocephalic, Atraumatic Eyes: normal inspection, EOMI Neck: supple, Trachea midline Respiratory/Chest: Bilateral clear breath sound Cardiovascular: Irregular S1, S2, + murmur Abdomen/GI:Soft, Non tender, Bowel sounds present Extremities/Musculoskeletal:normal inspection, no edema Neurologic/Psych:AAOX3, grossly no focal neurological deficits Skin: normal color, warm Results & Data Results & Data Vital Signs (Past 12 Hours) Vital Signs Temp Pulse Pulse Resp BP BP Pulse Ox 09/25/22 16:19 88 09/25/22 14:12 85 09/25/22 15:36 36.9 C 87 18 121/68 93 09/25/22 11:31 36.8 C 80 20 110/61 96 09/25/22 11:15 36.4 C L 85 18 123/71 95 09/25/22 06:00 86 09/25/22 07:19 36.3 C L 94 H 18 129/84 94 O2 Del Method 09/25/22 16:19 09/25/22 14:12 09/25/22 15:36 Room Air 09/25/22 11:31 Room Air 09/25/22 11:15 Room Air 09/25/22 06:00 09/25/22 07:19 Room Air Laboratory Results Laboratory Results WBC 6.97 K/ul (4.8-10.8) 09/25/22 03:54 RBC 3.50 M/uL (4.70-6.10) L 09/25/22 03:54 Hgb 12.0 g/dl (14.0-18.0) L 09/25/22 03:54 Hct 33.7 % (42.0-52.0) L 09/25/22 03:54 MCV 96.3 fL (80.0-100.0) 09/25/22 03:54 MCH 34.3 pg (25.0-34.0) H 09/25/22 03:54 MCHC 35.6 g/dL (32.0-36.0) 09/25/22 03:54 RDW Std Deviation 44.3 fL (36.4-46.3) 09/25/22 03:54 RDW Coeff of Venac[place] 12.7 % (11.5-14.5) 09/25/22 03:54 Plt Count 121 K/uL (130-400) L 09/25/22 03:54 MPV 9.6 fL (9.4-12.4) 09/25/22 03:54 Immature Gran % (Auto) 0.3 % 09/25/22 03:54 Neut % (Auto) 70.7 % 09/25/22 03:54 Lymph % (Auto) 17.5 % 09/25/22 03:54 [place] % (Auto) 10.2 % 09/25/22 03:54 Eos % (Auto) 1.0 % 09/25/22 03:54 Baso % (Auto) 0.3 % 09/25/22 03:54 Reticulocyte % (Auto) 1.9 % (0.5-2.0) 09/24/22 01:27 Neut # (Auto) 4.93 K/uL (1.40-6.50) 09/25/22 03:54 Lymph # (Auto) 1.22 K/uL (1.2-3.4) 09/25/22 03:54 [place] # (Auto) 0.71 K/uL (0.11-0.59) H 09/25/22 03:54 Eos # (Auto) 0.07 K/uL (0-0.50) 09/25/22 03:54 Baso # (Auto) 0.02 K/uL (0-0.2) 09/25/22 03:54 Reticulocyte # 0.06 10^6/uL (0.02-0.10) 09/24/22 01:27 Immature Gran # (Auto) 0.02 K/uL (0.01-0.20) 09/25/22 03:54 APTT 113.1 Seconds (21.0-31.0) H* 09/25/22 16:17 PTT Ratio 4.0 09/25/22 16:17 VBG pH 7.40 (7.36-7.41) 09/24/22 01:27 VBG pCO2 37 mmHg (38-50) L 09/24/22 01:27 VBG pO2 36 mmHg 09/24/22 01:27 VBG HCO3 23 mmol/L 09/24/22 01:27 VBG O2 Saturation 66.8 % 09/24/22 01:27 VBG Base Excess -1.5 mEq/L 09/24/22 01:27 Sodium 135 mmol/L (136-145) L 09/25/22 03:54 Potassium 4.3 mmol/L (3.5-5.1) 09/25/22 03:54 Chloride 102 mmol/L (98-107) 09/25/22 03:54 Carbon Dioxide 22 mmol/L (21-32) 09/25/22 03:54 Anion Gap 11 (3-11) 09/25/22 03:54 BUN 30 mg/dl (6-23) H 09/25/22 03:54 Creatinine 1.45 mg/dl (0.6-1.4) H 09/25/22 03:54 Est Cr Clr Drug Dosing 36.1 ml/min 09/25/22 03:54 Est GFR ( Amer) 50.2 ml/min 09/25/22 03:54 Est GFR (Non-Af Amer) 43.3 ml/min 09/25/22 03:54 BUN/Creatinine Ratio 20.7 (10-20) H 09/25/22 03:54 Glucose 147 mg/dl (70-99(Fasting)) H 09/25/22 03:54 POC Glucose 205 mg/dl (70-99) H 09/25/22 16:36 Osmolality 290 mOsm/kg (280-300) 09/23/22 22:07 Calcium 8.5 mg/dl (8.6-10.3) L 09/25/22 03:54 Magnesium 1.8 mg/dl (1.7-2.4) 09/25/22 03:54 Iron 23 mcg/dl (35-175) L 09/24/22 01:27 Transferrin 206 mg/dl (200-360) 09/24/22 01:27 Ferritin 82.8 ng/ml (8-388) 09/24/22 01:27 Total Bilirubin 0.9 mg/dl (0.2-1.0) 09/23/22 21:00 AST 20 U/L (13-39) 09/23/22 21:00 ALT 15 U/L (7-52) 09/23/22 21:00 Alkaline Phosphatase 39 U/L (34-104) 09/23/22 21:00 Total Creatine Kinase 209 U/L (30-223) 09/24/22 01:27 Troponin I High Sens 6.5 pg/ml (0-20) 09/23/22 21:00 Total Protein 7.1 gm/dl (6.0-8.3) 09/23/22 21:00 Albumin 4.0 gm/dl (3.4-5.0) 09/23/22 21:00 Globulin 3.1 gm/dl (2.5-4.0) 09/23/22 21:00 Albumin/Globulin Ratio 1.3 (0.9-2) 09/23/22 21:00 Vitamin B12 339 pg/ml (180-914) 09/24/22 01:27 Folate 16.07 ng/ml (>5.38) 09/24/22 01:27 Procalcitonin 0.05 ng/ml (0-0.5) 09/24/22 01:27 TSH 3.046 uIu/ml (0.300-4.500) 09/23/22 21:00 Urine Color Dark Yellow 09/23/22 21:45 Urine Appearance Cloudy (Clear) A 09/23/22 21:45 Urine pH 5.0 (4.5-7.5) 09/23/22 21:45 Ur Specific [place] 1.023 (1.000-1.030) 09/23/22 21:45 Urine Protein 2+ (Negative) H 09/23/22 21:45 Urine Glucose (UA) Negative (Negative) 09/23/22 21:45 Urine Ketones Trace (Negative) H 09/23/22 21:45 Urine Blood Negative (Negative) 09/23/22 21:45 Urine Nitrite Negative (Negative) 09/23/22 21:45 Urine Bilirubin Negative (Negative) 09/23/22 21:45 Urine Urobilinogen Negative (Negative) 09/23/22 21:45 Ur Leukocyte Esterase 1+ (Negative) H 09/23/22 21:45 Urine WBC (Auto) 10-30 /hpf (0-5) H 09/23/22 21:45 Urine RBC (Auto) 0-4 /hpf (0-4) 09/23/22 21:45 U Hyaline Cast (Auto) 1-5 /lpf (0-5) 09/23/22 21:45 U Epithel Cells (Auto) >30 /lpf (0-5) H 09/23/22 21:45 Urine Bacteria (Auto) Negative (Negative) 09/23/22 21:45 Ur Renal Epithelial Cell 0-5 /lpf (0-5) 09/23/22 21:45 Urine Yeast Not Reportable 09/23/22 21:45 Urine Osmolality 580 mOsm/kg (500-800) 09/23/22 22:38 Adenovirus (PCR) Not Detected (NotDetected) 09/24/22 Unknown B. pertussis DNA (PCR) Not Detected (NotDetected) 09/24/22 Unknown B.parapertussis DNA PCR Not Detected (NotDetected) 09/24/22 Unknown C. pneumoniae DNA (PCR) Not Detected (NotDetected) 09/24/22 Unknown Coronavirus OC43 (PCR) Not Detected (NotDetected) 09/24/22 Unknown Coronavirus HKU1 (PCR) Not Detected (NotDetected) 09/24/22 Unknown Coronavirus 229E (PCR) Not Detected (NotDetected) 09/24/22 Unknown SARS-CoV-2 (PCR) Not Detected (NotDetected) 09/24/22 Unknown Coronavirus NL63 (PCR) Not Detected (NotDetected) 09/24/22 Unknown Human Metapneumovir PCR Not Detected (NotDetected) 09/24/22 Unknown Influenza Type A (PCR) Not Detected (NotDetected) 09/24/22 Unknown Influenza Type B (PCR) Not Detected (NotDetected) 09/24/22 Unknown M. pneumoniae (PCR) Not Detected (NotDetected) 09/24/22 Unknown Parainfluenza 1 (PCR) Not Detected (NotDetected) 09/24/22 Unknown Parainfluenza 2 (PCR) Not Detected (NotDetected) 09/24/22 Unknown Parainfluenza 3 (PCR) Not Detected (NotDetected) 09/24/22 Unknown Parainfluenza 4 (PCR) Not Detected (NotDetected) 09/24/22 Unknown RSV (PCR) Not Detected (NotDetected) 05/09/23 Unknown Entero/Rhino (PCR) Not Detected (NotDetected) 09/24/22 Unknown SARS-CoV-2, RNA, NAAT NEGATIVE (NEGATIVE) 09/23/22 21:[address] 09/23/22 21:02 Exam(s): CT HEAD Without Contrast EXAM: CT Head Without Intravenous Contrast CLINICAL HISTORY: Reason for exam: falls, hit left post head, plavix. TECHNIQUE: Axial computed tomography images of the head/brain without intravenous contrast. CTDI is 31.69 mGy and DLP is 512.02 mGy-cm. Automated exposure control was utilized for the study. A dose lowering technique was utilized adhering to the principles of ALARA. COMPARISON: No relevant prior studies available. 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 No hemorrhage. Ventricles: Unremarkable. No ventriculomegaly. Bones/joints: Unremarkable. No acute fracture. Soft tissues: Unremarkable. Sinuses: Unremarkable as visualized. No acute sinusitis. Mastoid air cells: Unremarkable as visualized. No mastoid effusion. IMPRESSION: No acute intracranial abnormality Electronically signed by: Henry Donohue MD 09/23/22 21:44 PM Chest X-Ray 09/25/22 02:40 SINGLE VIEW CHEST CLINICAL HISTORY: Dyspnea FINDINGS: 2 AP, portable, upright chest radiographs are compared to study dated 09/23/2022. The patient is status post midline sternotomy. The heart is enlarged noting atherosclerotic calcification of the thoracic aorta. The pulmonary vasculature is noncongested. Chronic interstitial thickening is similar to previous. Airspace opacity are again seen at the left lung base. No large pleural effusion or pneumothorax is identified. The skeletal structures are osteopenic. The bony thorax is grossly intact. Arthritic change is seen in the shoulders. IMPRESSION: 1. Cardiomegaly without radiographic evidence of congestive failure. 2. Left basilar opacities are unchanged. Correlate clinically. ACT 112: Negative or not required by law. Electronically signed by: Luc Johnson M.D. 09/25/2022 7:46 AM (1) Falls Encounter type: initial encounter Qualified Code(s): W19.XXXA - Unspecified fall, initial encounter
--- NOTE | 2022-09-25 23:28 | Electrocardiogram Report ---
Test Reason : Blood Pressure : / mmHG Vent. Rate : 112 BPM Atrial Rate : 115 BPM P-R Int : 000 ms QRS Dur : 154 ms QT Int : 344 ms P-R-T Axes : 000 057 -61 degrees QTc Int : 469 ms Atrial fibrillation with rapid ventricular response Right bundle branch block T wave abnormality, consider inferolateral ischemia Abnormal ECG When compared with ECG of 23-Sep-2022 21:00, Atrial fibrillation has replaced Sinus rhythm Confirmed by aMgnus Og ([id number]) on 09/25/2022 11:27:52 PM Referred By: REFERRED SELF Confirmed By:Magnus Og
[2022-09-26 01:32] LABS: Partial Thromboplastin Time 57.8 Seconds (21.0-31.0)
[2022-09-26 06:48] LABS: Calcium 8.5 mg/dl (8.6-10.3); Magnesium 2.1 mg/dl (1.7-2.4); Potassium 4.7 mmol/L (3.5-5.1)
[2022-09-26 06:53] LABS: BUN Creatinine Ratio 20.9 (10-20); Creatinine Clr Calc Pharmacy 37.4 ml/min; Est GFR (African American) 52.8 ml/min; Est GFR (Non-African American) 45.6 ml/min
[2022-09-26 06:55] LABS: Partial Thromboplastin Ratio 2.3
[2022-09-26 07:03] LABS: Partial Thromboplastin Time 63.9 Seconds (21.0-31.0)
[2022-09-26] MEDS: RANOLAZINE 500 MG ER TAB PO SCH ×2 (08:09→20:16)
[2022-09-26] MEDS: CLOPIDOGREL BISULFATE 75 MG TAB PO SCH (08:09)
[2022-09-26] MEDS: DOXYCYCLINE HYCLATE 100 MG CAP PO SCH ×2 (08:09→20:16)
[2022-09-26] MEDS: ASPIRIN 81 MG ECTAB PO SCH (08:09)
[2022-09-26] MEDS: ROSUVASTATIN CALCIUM 20 MG TAB PO SCH (08:10)
[2022-09-26] MEDS: AMIODARONE 200 MG TAB PO SCH ×3 (08:10→17:02)
[2022-09-26] MEDS: LANTUS PER UNIT CHARGE SQ SCH (08:11)
[2022-09-26] MEDS: INSULIN ASPART PER UNIT CHARGE SC SCH ×4 (08:11→20:26)
[2022-09-26 08:33] LABS: Basophils # (auto) 0.02 K/uL (0-0.2); Basophils % (auto) 0.4 %; Eosinophils # (auto) 0.17 K/uL (0-0.50); Hematocrit (blood only) 34.4 % (42.0-52.0); Hemoglobin 11.8 g/dl (14.0-18.0); Immature Granulocytes # (auto) 0.02 K/uL (0.01-0.20); Immature Granulocytes % (auto) 0.4 %; Lymphocytes # (auto) 1.41 K/uL (1.2-3.4); Lymphocytes % (auto) 24.8 %; Mean Corpuscular Hemoglobin 33.1 pg (25.0-34.0); Mean Corpuscular Hgb Conc 34.3 g/dL (32.0-36.0); Mean Corpuscular Volume 96.4 fL (80.0-100.0); Mean Platelet Volume 10.2 fL (9.4-12.4); Monocytes # (auto) 0.55 K/uL (0.11-0.59); Monocytes % (auto) 9.7 %; Neutrophils # (auto) 3.51 K/uL (1.40-6.50); Neutrophils % (auto) 61.7 %; Platelet Count 135 K/uL (130-400); RDW Coefficient of Variation 12.4 % (11.5-14.5); RDW Standard Deviation 43.6 fL (36.4-46.3); Red Blood Count 3.57 M/uL (4.70-6.10); White Blood Count 5.68 K/ul (4.8-10.8)
[2022-09-26] MEDS: HEPARIN SODIUM/DEXTROSE 25,000 UNITS/500 ML BAG IV SCH (11:20)
--- NOTE | 2022-09-26 12:05 | Cardiology Progress Note ---
Date of Service September 26, 2022 Assessment & Plan (1) Paroxysmal atrial fibrillation: (2) CAD (coronary artery disease): (3) S/P CABG x 3: (4) Falls: Plan 87-year-old patient admitted with frequent falls. Developed rapid atrial fibrillation 09/25/2022 without associated symptoms. Oral amiodarone added with subsequent conversion to sinus rhythm. Remains in sinus rhythm this AM. Essentially asymptomatic without palpitations at this time. Recommend continue oral amiodarone 200 mg 3 times daily as an inpatient which may be transition to 200 mg twice daily daily x2 weeks in the outpatient setting. Continue IV heparin while inpatient, however, patient is not a strong candidate for long- term anticoagulation due to frequent falls. Hold metoprolol due to concerns regarding symptomatic bradycardia in the ER. Repeat ECG. Monitor telemetry. Replace electrolytes as indicated. Admission and Anticipated Discharge Date Admission Date: September 23, 2022 Subjective Patient seen examined the bedside. Converted to sinus rhythm. Occasional episodes of recurrent atrial fibrillation with controlled ventricular response noted. Denies palpitations, lightheadedness, or dizziness. No chest discomfort or unusual shortness of breath. present at bedside. Review of Systems Review of Systems: All systems reviewed & are unremarkable except as noted in Subjective Physical Exam Constitutional: well nourished; no acute distress Respiratory: no respiratory distress, no labored breathing and no retractions Auscultation: no crackles and no wheezes Gastrointestinal (Abdomen): Inspection/Auscultation: abdomen not distended and + abnormal bowel sounds Percussion/Palpation: abdomen soft; abdomen nontender, no guarding and abdomen not rigid Neurologic: CN's II-XI intact bilaterally and moves all extremities; no focal motor deficits Motor/Sensory: no tremor Results & Data Vital Signs (Past 12 Hours) Vital Signs Temp Pulse Pulse Resp BP Pulse Ox O2 Del Method 09/26/22 07:32 36.6 C 60 18 142/71 H 99 Room Air 09/26/22 03:43 36.3 C L 67 18 159/75 H 93 Room Air 09/26/22 03:52 60 09/26/22 01:18 Room Air 09/26/22 00:08 37.0 C 56 L 16 145/77 H 97 Room Air Laboratory Results Coagulation 09/25/22 09/26/22 09/26/22 Range/Units 16:17 00:26 05:51 APTT 113.1 H* 57.8 H* 63.9 H* (21.0-31.0) Seconds CBC 09/26/22 Range/Units 05:51 WBC 5.68 (4.8-10.8) K/ul RBC 3.57 L (4.70-6.10) M/uL Hgb 11.8 L (14.0-18.0) g/dl Hct 34.4 L (42.0-52.0) % Plt Count 135 (130-400) K/uL Neut # (Auto) 3.51 (1.40-6.50) K/uL Lymph # (Auto) 1.41 (1.2-3.4) K/uL [place] # (Auto) 0.55 (0.11-0.59) K/uL Eos # (Auto) 0.17 (0-0.50) K/uL Baso # (Auto) 0.02 (0-0.2) K/uL Comprehensive Metabolic Panel 09/26/22 Range/Units 05:51 Sodium 134 L (136-145) mmol/L Potassium 4.7 (3.5-5.1) mmol/L Chloride 103 (98-107) mmol/L Carbon Dioxide 24 (21-32) mmol/L BUN 29 H (6-23) mg/dl Creatinine 1.39 (0.6-1.4) mg/dl Glucose 236 H (70-99(Fasting)) mg/dl Calcium 8.5 L (8.6-10.3) mg/dl Intake and Output 09/25/22 09/26/22 09/26/22 22:59 06:59 14:59 Intake Total 624.167 / 2515.417 848 / 2515.417 334.583 / 334.583 Balance 624.167 / 2514.417 848 / 2514.417 334.583 / 334.583 Intake: IV 144.167 / 1335.417 648 / 1335.417 334.583 / 334.583 Heparin Sodium/Dextrose 25,000 144.167 / 165.417 334.583 / 334.583 units In 500 ml @ 1,050 UNITS/ HR 21 mls/hr IV .[id number] [facility] Rx #:[id number] Sodium Chloride 0.9% 1000ML 1, 0 / 1000 648 / 1000 000 ml @ 60 mls/hr IV .[id number] ONE Rx#:[id number] Oral 480 / 1180 200 / 1180 Other: # Unmeasured Voids 2 1 Weight 69.3 kg Weight Measurement Method Built in [facility] (4) Falls Encounter type: initial encounter Qualified Code(s): W19.XXXA - Unspecified fall, initial encounter
[2022-09-26] MEDS: cefTRIAXone SODIUM 2,000 MG in DEXTROSE 5% 50 ML IV SCH (12:09)
--- NOTE | 2022-09-26 14:13 | Hospitalist Progress Note ---
Date of Service September 26, 2022 Assessment & Plan (1) Falls: Plan: Generalized weakness Likely multifactorial: KIKI, suspected pneumonitis/UTI/? Viral illness Patient states that he has been having URI symptoms for the past 2 weeks. Patient's had similar symptoms and recovered as well. COVID screen negative Procalcitonin 0.05 TSH normal Patient viral panel negative -- Urine culture no growth Continue ceftriaxone and doxycycline D4 PT OT, fall precautions: He and family prefers PT OT at home. Discussed with bilingual case manager; home PT OT to be arranged. New onset A.fib with RVR, converted to sinus rhythm on 09/26 Overnight, on 09/25/2022atient went into A-fib with RVR Echocardiogram shows EF of 65 to 70% with mild concentric left ventricular hypertrophy Discussed with cardiology; patient on oral Amio and heparin As per cardiology, patient is not a long-term candidate for anticoagulation. KIKI on CKD III Labs reviewed; Cr: 1.85>> 1.45 >1.39 Received IV fluids Monitor renal function Avoid nephrotoxic agents as able Recurrent falls Fall precautions PT OT Acute on chronic anemia Thrombocytopenia FOBT in ED negative Anemia work-up ordered No obvious source of bleeding Monitor CBC CAD S/P CABG/stent/PVD Continue aspirin, Plavix, metoprolol, Ranexa Ranexa, Metoprolol discontinued given relatively low blood pressure/Bradycardia Resume isosorbide as able Hypertension Continue metoprolol with holding parameter Resume losartan as able Monitor DM II Last HbA1c 9.25 2022 Continue insulin while hospitalized Monitor BGs DVT Px: Heparin drip Code Status Full code Time spent evaluating patient, direct bedside care, chart review, placing orders, interpretation of diagnostic studies, discussion with consultants, patient, and family members, as well as other required patient management activities is 60 minutes. Please note the above document was generated using voice recognition software. It may contain grammatical, syntax or spelling errors. Any formal questions or concerns about the content, text or information contained within the body of this dictation should be directly addressed to the provider for clarification Admission and Anticipated Discharge Date Admission Date: September 23, 2022 Subjective Patient seen and examined at bedside. He is sitting at the side of the bed eating breakfast. He denies any discomfort or pain. He converted to normal sinus rhythm overnight. Review of Systems Review of Systems: All systems reviewed & are unremarkable except as noted in Subjective Physical Exam Physical Exam: Physical Exam: Vitals signs as noted above General Appearance: Thin, frail, elderly, no apparent distress Head: normocephalic, Atraumatic Eyes: normal inspection, EOMI Neck: supple, Trachea midline Respiratory/Chest: Bilateral clear breath sound Cardiovascular: Regular, S1, S2, + murmur Abdomen/GI:Soft, Non tender, Bowel sounds present Extremities/Musculoskeletal:normal inspection, no edema Neurologic/Psych:AAOX3, grossly no focal neurological deficits Skin: normal color, warm Results & Data Results & Data Vital Signs (Past 12 Hours) Vital Signs Temp Pulse Pulse Resp BP BP Pulse Ox 09/26/22 11:21 36.6 C 62 16 124/67 98 09/26/22 07:32 36.6 C 60 18 142/71 H 99 09/26/22 03:43 36.3 C L 67 18 159/75 H 93 09/26/22 03:52 60 O2 Del Method 09/26/22 11:21 Room Air 09/26/22 07:32 Room Air 09/26/22 03:43 Room Air 09/26/22 03:52 Laboratory Results Laboratory Results WBC 5.68 K/ul (4.8-10.8) 09/26/22 05:51 RBC 3.57 M/uL (4.70-6.10) L 09/26/22 05:51 Hgb 11.8 g/dl (14.0-18.0) L 09/26/22 05:51 Hct 34.4 % (42.0-52.0) L 09/26/22 05:51 MCV 96.4 fL (80.0-100.0) 09/26/22 05:51 MCH 33.1 pg (25.0-34.0) 09/26/22 05:51 MCHC 34.3 g/dL (32.0-36.0) 09/26/22 05:51 RDW Std Deviation 43.6 fL (36.4-46.3) 09/26/22 05:51 RDW Coeff of Venancio 12.4 % (11.5-14.5) 09/26/22 05:51 Plt Count 135 K/uL (130-400) 09/26/22 05:51 MPV 10.2 fL (9.4-12.4) 09/26/22 05:51 Immature Gran % (Auto) 0.4 % 09/26/22 05:51 Neut % (Auto) 61.7 % 09/26/22 05:51 Lymph % (Auto) 24.8 % 09/26/22 05:51 Giles % (Auto) 9.7 % 09/26/22 05:51 Eos % (Auto) 3.0 % 09/26/22 05:51 Baso % (Auto) 0.4 % 09/26/22 05:51 Reticulocyte % (Auto) 1.9 % (0.5-2.0) 09/24/22 01:27 Neut # (Auto) 3.51 K/uL (1.40-6.50) 09/26/22 05:51 Lymph # (Auto) 1.41 K/uL (1.2-3.4) 09/26/22 05:51 Giles # (Auto) 0.55 K/uL (0.11-0.59) 09/26/22 05:51 Eos # (Auto) 0.17 K/uL (0-0.50) 09/26/22 05:51 Baso # (Auto) 0.02 K/uL (0-0.2) 09/26/22 05:51 Reticulocyte # 0.06 10^6/uL (0.02-0.10) 09/24/22 01:27 Immature Gran # (Auto) 0.02 K/uL (0.01-0.20) 09/26/22 05:51 APTT 63.9 Seconds (21.0-31.0) H* 09/26/22 05:51 PTT Ratio 2.3 09/26/22 05:51 VBG pH 7.40 (7.36-7.41) 09/24/22 01:27 VBG pCO2 37 mmHg (38-50) L 09/24/22 01:27 VBG pO2 36 mmHg 09/24/22 01:27 VBG HCO3 23 mmol/L 09/24/22 01:27 VBG O2 Saturation 66.8 % 09/24/22 01:27 VBG Base Excess -1.5 mEq/L 09/24/22 01:27 Sodium 134 mmol/L (136-145) L 09/26/22 05:51 Potassium 4.7 mmol/L (3.5-5.1) 09/26/22 05:51 Chloride 103 mmol/L (98-107) 09/26/22 05:51 Carbon Dioxide 24 mmol/L (21-32) 09/26/22 05:51 Anion Gap 7 (3-11) 09/26/22 05:51 BUN 29 mg/dl (6-23) H 09/26/22 05:51 Creatinine 1.39 mg/dl (0.6-1.4) 09/26/22 05:51 Est Cr Clr Drug Dosing 37.4 ml/min 09/26/22 05:51 Est GFR ( Amer) 52.8 ml/min 09/26/22 05:51 Est GFR (Non-Af Amer) 45.6 ml/min 09/26/22 05:51 BUN/Creatinine Ratio 20.9 (10-20) H 09/26/22 05:51 Glucose 236 mg/dl (70-99(Fasting)) H 09/26/22 05:51 POC Glucose 390 mg/dl (70-99) H* 09/26/22 11:26 Osmolality 290 mOsm/kg (280-300) 09/23/22 22:07 Calcium 8.5 mg/dl (8.6-10.3) L 09/26/22 05:51 Magnesium 2.1 mg/dl (1.7-2.4) 09/26/22 05:51 Iron 23 mcg/dl (35-175) L 09/24/22 01:27 Transferrin 206 mg/dl (200-360) 09/24/22 01:27 Ferritin 82.8 ng/ml (8-388) 09/24/22 01:27 Total Bilirubin 0.9 mg/dl (0.2-1.0) 09/23/22 21:00 AST 20 U/L (13-39) 09/23/22 21:00 ALT 15 U/L (7-52) 09/23/22 21:00 Alkaline Phosphatase 39 U/L (34-104) 09/23/22 21:00 Total Creatine Kinase 209 U/L (30-223) 09/24/22 01:27 Troponin I High Sens 6.5 pg/ml (0-20) 09/23/22 21:00 Total Protein 7.1 gm/dl (6.0-8.3) 09/23/22 21:00 Albumin 4.0 gm/dl (3.4-5.0) 09/23/22 21:00 Globulin 3.1 gm/dl (2.5-4.0) 09/23/22 21:00 Albumin/Globulin Ratio 1.3 (0.9-2) 09/23/22 21:00 Vitamin B12 339 pg/ml (180-914) 09/24/22 01: Folate 16.07 ng/ml (>5.38) 09/24/22 01:27 Procalcitonin 0.05 ng/ml (0-0.5) 09/24/22 01: TSH 3.046 uIu/ml (0.300-4.500) 09/23/22 21:00 Urine Color Dark Yellow 09/23/22 21:45 Urine Appearance Cloudy (Clear) A 09/23/22 21:45 Urine pH 5.0 (4.5-7.5) 09/23/22 21:45 Ur Specific Chase 1.023 (1.000-1.030) 09/23/22 21:45 Urine Protein 2+ (Negative) H 09/23/22 21:45 Urine Glucose (UA) Negative (Negative) 09/23/22 21:45 Urine Ketones Trace (Negative) H 09/23/22 21:45 Urine Blood Negative (Negative) 09/23/22 21:45 Urine Nitrite Negative (Negative) 09/23/22 21:45 Urine Bilirubin Negative (Negative) 09/23/22 21:45 Urine Urobilinogen Negative (Negative) 09/23/22 21:45 Ur Leukocyte Esterase 1+ (Negative) H 09/23/22 21:45 Urine WBC (Auto) 10-30 /hpf (0-5) H 09/23/22 21:45 Urine RBC (Auto) 0-4 /hpf (0-4) 09/23/22 21:45 U Hyaline Cast (Auto) 1-5 /lpf (0-5) 09/23/22 21:45 U Epithel Cells (Auto) >30 /lpf (0-5) H 09/23/22 21:45 Urine Bacteria (Auto) Negative (Negative) 09/23/22 21:45 Ur Renal Epithelial Cell 0-5 /lpf (0-5) 09/23/22 21:45 Urine Yeast Not Reportable 09/23/22 21:45 Urine Osmolality 580 mOsm/kg (500-800) 09/23/22 22:38 Adenovirus (PCR) Not Detected (NotDetected) 09/24/22 Unknown B. pertussis DNA (PCR) Not Detected (NotDetected) 09/24/22 Unknown B.parapertussis DNA PCR Not Detected (NotDetected) 09/24/22 Unknown C. pneumoniae DNA (PCR) Not Detected (NotDetected) 09/24/22 Unknown Coronavirus OC43 (PCR) Not Detected (NotDetected) 09/24/22 Unknown Coronavirus HKU1 (PCR) Not Detected (NotDetected) 09/24/22 Unknown Coronavirus 229E (PCR) Not Detected (NotDetected) 09/24/22 Unknown SARS-CoV-2 (PCR) Not Detected (NotDetected) 09/24/22 Unknown Coronavirus NL63 (PCR) Not Detected (NotDetected) 09/24/22 Unknown Human Metapneumovir PCR Not Detected (NotDetected) 09/24/22 Unknown Influenza Type A (PCR) Not Detected (NotDetected) 09/24/22 Unknown Influenza Type B (PCR) Not Detected (NotDetected) 09/24/22 Unknown M. pneumoniae (PCR) Not Detected (NotDetected) 09/24/22 Unknown Parainfluenza 1 (PCR) Not Detected (NotDetected) 09/24/22 Unknown Parainfluenza 2 (PCR) Not Detected (NotDetected) 09/24/22 Unknown Parainfluenza 3 (PCR) Not Detected (NotDetected) 09/24/22 Unknown Parainfluenza 4 (PCR) Not Detected (NotDetected) 09/24/22 Unknown RSV (PCR) Not Detected (NotDetected) 09/24/22 Unknown Entero/Rhino (PCR) Not Detected (NotDetected) 09/24/22 Unknown SARS-CoV-2, RNA, NAAT NEGATIVE (NEGATIVE) 09/23/22 21:[address] 09/23/22 21:02 Exam(s): CT HEAD Without Contrast EXAM: CT Head Without Intravenous Contrast CLINICAL HISTORY: Reason for exam: falls, hit left post head, plavix. TECHNIQUE: Axial computed tomography images of the head/brain without intravenous contrast. CTDI is 31.69 mGy and DLP is 512.02 mGy-cm. Automated exposure control was utilized for the study. A dose lowering technique was utilized adhering to the principles of ALARA. COMPARISON: No relevant prior studies available. 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 No hemorrhage. Ventricles: Unremarkable. No ventriculomegaly. Bones/joints: Unremarkable. No acute fracture. Soft tissues: Unremarkable. Sinuses: Unremarkable as visualized. No acute sinusitis. Mastoid air cells: Unremarkable as visualized. No mastoid effusion. IMPRESSION: No acute intracranial abnormality Electronically signed by: Henry Dnoohue MD 09/23/22 21:44 PM Chest X-Ray 09/25/22 02:40 SINGLE VIEW CHEST CLINICAL HISTORY: Dyspnea FINDINGS: 2 AP, portable, upright chest radiographs are compared to study dated 09/23/2022. The patient is status post midline sternotomy. The heart is enlarged noting atherosclerotic calcification of the thoracic aorta. The pulmonary vasculature is noncongested. Chronic interstitial thickening is similar to previous. Airspace opacity are again seen at the left lung base. No large pleural effusion or pneumothorax is identified. The skeletal structures are osteopenic. The bony thorax is grossly intact. Arthritic change is seen in the shoulders. IMPRESSION: 1. Cardiomegaly without radiographic evidence of congestive failure. 2. Left basilar opacities are unchanged. Correlate clinically. ACT 112: Negative or not required by law. Electronically signed by: Luc Johnson M.D. 09/25/2022 7:46 AM (1) Falls Encounter type: initial encounter Qualified Code(s): W19.XXXA - Unspecified fall, initial encounter
[2022-09-27 06:10] LABS: Basophils # (auto) 0.03 K/uL (0-0.2); Basophils % (auto) 0.5 %; Eosinophils # (auto) 0.16 K/uL (0-0.50); Eosinophils % (auto) 2.7 %; Hematocrit (blood only) 32.3 % (42.0-52.0); Hemoglobin 11.6 g/dl (14.0-18.0); Immature Granulocytes # (auto) 0.01 K/uL (0.01-0.20); Immature Granulocytes % (auto) 0.2 %; Lymphocytes # (auto) 1.82 K/uL (1.2-3.4); Lymphocytes % (auto) 30.6 %; Mean Corpuscular Hemoglobin 33.7 pg (25.0-34.0); Mean Corpuscular Hgb Conc 35.9 g/dL (32.0-36.0); Mean Corpuscular Volume 93.9 fL (80.0-100.0); Mean Platelet Volume 9.9 fL (9.4-12.4); Monocytes % (auto) 8.4 %; Neutrophils # (auto) 3.43 K/uL (1.40-6.50); Neutrophils % (auto) 57.6 %; Platelet Count 129 K/uL (130-400); RDW Coefficient of Variation 12.5 % (11.5-14.5); RDW Standard Deviation 42.8 fL (36.4-46.3); Red Blood Count 3.44 M/uL (4.70-6.10); White Blood Count 5.95 K/ul (4.8-10.8)
[2022-09-27 06:18] LABS: BUN Creatinine Ratio 20.9 (10-20); Calcium 8.5 mg/dl (8.6-10.3); Creatinine Clr Calc Pharmacy 39.9 ml/min; Est GFR (African American) 57.8 ml/min; Est GFR (Non-African American) 49.9 ml/min; Magnesium 1.9 mg/dl (1.7-2.4); Potassium 4.4 mmol/L (3.5-5.1)
[2022-09-27 06:51] LABS: Partial Thromboplastin Ratio 1.8
[2022-09-27 06:52] LABS: Partial Thromboplastin Time 51.3 Seconds (21.0-31.0)
[2022-09-27] MEDS: INSULIN ASPART PER UNIT CHARGE SC SCH ×2 (07:49→12:26)
[2022-09-27] MEDS: DOXYCYCLINE HYCLATE 100 MG CAP PO SCH (07:50)
[2022-09-27] MEDS: AMIODARONE 200 MG TAB PO SCH (07:50)
[2022-09-27] MEDS: CLOPIDOGREL BISULFATE 75 MG TAB PO SCH (07:51)
[2022-09-27] MEDS: ASPIRIN 81 MG ECTAB PO SCH (07:51)
[2022-09-27] MEDS: LANTUS PER UNIT CHARGE SQ SCH (07:51)
[2022-09-27] MEDS: RANOLAZINE 500 MG ER TAB PO SCH (07:51)
[2022-09-27] MEDS: ROSUVASTATIN CALCIUM 20 MG TAB PO SCH (07:51)
[2022-09-27] MEDS ORDERED: LANTUS PER UNIT CHARGE SC ONE (09:00)
[2022-09-27] MEDS: HEPARIN SODIUM/DEXTROSE 25,000 UNITS/500 ML BAG IV SCH (09:48)
--- NOTE | 2022-09-27 11:27 | Cardiology Progress Note ---
Date of Service September 27, 2022 Assessment & Plan (1) Paroxysmal atrial fibrillation: (2) CAD (coronary artery disease): (3) S/P CABG x 3: (4) Falls: Plan 87-year-old patient admitted with frequent falls. Developed rapid atrial fibrillation 09/25/2022 without associated symptoms. Oral amiodarone added with subsequent conversion to sinus rhythm. Remains in sinus rhythm x 48hours. Discontinue IV heparin. Patient is not a strong candidate for long-term anticoagulation due to frequent falls. Continue amiodarone 200 mg twice daily for 2 weeks then reduce dose to 200 mg once daily. Outpatient cardiology follow-up in 1-2 weeks. Cardiology will sign off, please call with questions. Admission and Anticipated Discharge Date Admission Date: September 23, 2022 Subjective Patient seen and examined at the bedside. Feeling well from a cardiovascular perspective. Denies chest pain, shortness of breath, palpitations, lightheadedness, or dizziness. Working with physical therapy. No recurrent atrial fibrillation on telemetry. Review of Systems Review of Systems: All systems reviewed & are unremarkable except as noted in Subjective Physical Exam Constitutional: well nourished; no acute distress Respiratory: no respiratory distress, no labored breathing and no retractions Auscultation: no crackles and no wheezes Cardiovascular: Rate/Rhythm: regular rate and regular rhythm Heart Sounds: normal S1, normal S2 and + murmur (2/6 systolic murmur heard best at the base) Vessels: radial pulses present; no JVD Extremities: no edema Gastrointestinal (Abdomen): Inspection/Auscultation: abdomen not distended and + abnormal bowel sounds Percussion/Palpation: abdomen soft; abdomen nontender, no guarding and abdomen not rigid Neurologic: CN's II-XI intact bilaterally and moves all extremities; no focal motor deficits Motor/Sensory: no tremor Results & Data Vital Signs (Past 12 Hours) Vital Signs Temp Pulse Pulse Resp BP BP Pulse Ox 09/27/22 07:44 36.8 C 75 18 157/79 H 96 09/27/22 04:37 36.3 C L 09/27/22 03:00 37.0 C 72 20 147/70 H 98 09/26/22 23:50 60 O2 Del Method 09/27/22 07:44 Room Air 09/27/22 04:37 09/27/22 03:00 Room Air 09/26/22 23:50 Laboratory Results Coagulation 09/27/22 Range/Units 05:32 APTT 51.3 H* (21.0-31.0) Seconds CBC 09/27/22 Range/Units 05:32 WBC 5.95 (4.8-10.8) K/ul RBC 3.44 L (4.70-6.10) M/uL Hgb 11.6 L (14.0-18.0) g/dl Hct 32.3 L (42.0-52.0) % Plt Count 129 L (130-400) K/uL Neut # (Auto) 3.43 (1.40-6.50) K/uL Lymph # (Auto) 1.82 (1.2-3.4) K/uL [place] # (Auto) 0.50 (0.11-0.59) K/uL Eos # (Auto) 0.16 (0-0.50) K/uL Baso # (Auto) 0.03 (0-0.2) K/uL Comprehensive Metabolic Panel 09/27/22 Range/Units 05:32 Sodium 135 L (136-145) mmol/L Potassium 4.4 (3.5-5.1) mmol/L Chloride 103 (98-107) mmol/L Carbon Dioxide 24 (21-32) mmol/L BUN 27 H (6-23) mg/dl Creatinine 1.29 (0.6-1.4) mg/dl Glucose 218 H (70-99(Fasting)) mg/dl Calcium 8.5 L (8.6-10.3) mg/dl Intake and Output 09/26/22 09/27/22 09/27/22 22:59 06:59 14:59 Intake Total 480 / 884.583 471.8 / 471.8 Output Total 200 / 500 300 / 500 Balance 280 / 384.583 -300 / 384.583 471.8 / 471.8 Intake: IV 471.8 / 471.8 Heparin Sodium/Dextrose 25,000 471.8 / 471.8 units In 500 ml @ 1,050 UNITS/ HR 21 mls/hr IV .[id number] [facility] Rx #:[id number] Oral 480 / 480 Output: Urine 200 / 500 300 / 500 Other: # Unmeasured Voids 4 Weight 68.6 kg (4) Falls Encounter type: initial encounter Qualified Code(s): W19.XXXA - Unspecified fall, initial encounter
[2022-09-27] MEDS: cefTRIAXone SODIUM 2,000 MG in DEXTROSE 5% 50 ML IV SCH (12:26)
--- NOTE | 2022-09-27 14:30 | Discharge Summary ---
Date of Service September 27, 2022 Admission HPI Per Admitting Provider History obtained from patient, family, and records. Medical history significant for CAD status post CABG/stent, PVD, hypertension, valvular heart disease (mild /TR ), DM 2 insulin requiring, CRI (baseline creatinine 1.5 ), chronic anemia (baseline hemoglobin 12 ), skin cancer as per records, past tobacco abuse. Last confinement December 2016 for left knee hematoma secondary to fall. Patient seen at PCPs office 2 months ago for follow-up visit. Patient mentioned 2 falls with occasional dizziness on standing up. Patient noted to have recurrent falls at home today. Both legs weak and giving out. No headache, no chest pain, no dizziness, no shortness of breath. No witnessed seizures. No abdominal pain or diarrhea. Denies black/bloody stools. Patient has no recollection of account of falls at PCPs office 2 months ago. 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 Admission Exam Per Admitting Provider GENERAL: Slightly uncomfortable, slightly anxious, slightly hard of hearing, no respiratory distress SKIN: Pallor, warm HEENT: Partial alopecia, pale palpebral conjunctivae, no ptosis, dry buccal mucosa NECK : Supple, no tenderness CHEST : CTA, no tenderness HEART : Bradycardic, systolic murmur ABDOMEN: no distention, nontender RECTAL : Intact sphincter, brown stool (FOBT negative) EXTREMITIES : No LE swelling/tenderness, no other conspicuous deformities noted NEUROLOGIC : Coherent, no facial asymmetry, intention tremors, mild hearing impairment, gait and stance not assessed Principal Diagnosis Pneumonia Hyponatremia KIKI A-fib with RVR Discharge Exam Physical Exam: Vitals signs as noted above General Appearance: Thin, frail, elderly, no apparent distress Head: normocephalic, Atraumatic Eyes: normal inspection, EOMI Neck: supple, Trachea midline Respiratory/Chest: Bilateral clear breath sound Cardiovascular: Regular, S1, S2, + murmur Abdomen/GI:Soft, Non tender, Bowel sounds present Extremities/Musculoskeletal:normal inspection, no edema Neurologic/Psych:AAOX3, grossly no focal neurological deficits Skin: normal color, warm Discharge Data Allergies Allergy/AdvReac Type Severity Reaction Status Date / Time No Known Allergies Allergy Verified 09/23/22 22:13 Consultations 09/23/22 22:15 ED Decision to Admit Stat 09/25/22 04:14 Consult Cardiology Routine Ordered Studies 09/23/22 21:02 CT head/brain wo con Stat Hospital Course (1) Falls: 1) Pneumonia Patient states that he has been having URI symptoms for the past 2 weeks. Patient's had similar symptoms and recovered as well. COVID screen negative Procalcitonin 0.05 TSH normal Patient viral panel negative -- Urine culture no growth During the hospitalization, patient was treated with IV antibiotic. At dischargehe was given 2-day prescription of doxycycline to complete the course 2) New onset A.fib with RVR, converted to sinus rhythm on 09/26 Overnight, on 3patient went into A-fib with RVR Echocardiogram shows EF of 65 to 70% with mild concentric left ventricular hypertrophy Cardiology was consulted in the hospitalization. He was started on oral amiodarone. He converted to sinus rhythm. He was also placed on heparin drip during the hospitalization. He was discharged on amiodarone twice daily daily for 7 more days and once daily after that. Cardiology recommended that patient should not be on anticoagulation due to history of recurrent falls. 3) KIKI on CKD III Hyponatremia Labs reviewed; Cr: 1.85>> 1.45 >1.39 Received IV fluids Monitor renal function Avoid nephrotoxic agents as able His sodium improved during the hospitalization. Creatinine down trended as well. Losartan was kept on hold at discharge till he sees PCP. 4) Recurrent falls Fall precautions PT OT evaluation was done Was provided prescription for rolling walker at discharge. Please note the above document was generated using voice recognition software. It may contain grammatical, syntax or spelling errors. Any formal questions or concerns about the content, text or information contained within the body of this dictation should be directly addressed to the provider for clarification Total Time Total Time Spent Total Time Spent (In Minutes): 45 Total Time Includes: Examination of the Patient, Discharge Planning, Medication Reconciliation, Communication With Other Providers and Other Discharge Plan Discharge Items Patient Disposition: Home - Self-Care Reason For Visit: HYPONATREMIA Discharge Diagnosis: Hyponatremia Acute kidney injury Pneumonia New onset A-fib with RVR Activity: Resume your previous activity Non-emergency contact: Primary Care Provider Call non-emergency contact if: you have any medication questions and your symptoms worsen Follow-up/Referrals: Carola Arrington MD [Primary Care Provider] - (Date & Time 09/30/2022 3:20 PM Provider [facility] ) Diet: Regular Addtl Attending Provider Instructions: You were admitted to the hospital with following conditions: 1) Low blood sodium level and acute kidney injury: This was likely due to dehydration. His sodium level have improved from 129 to 135. Your kidney function have also improved. 2) Pneumonia: X-ray done during hospitalization showed pneumonia on your left lung. He received antibiotic during hospitalization. You are prescribed doxycycline 100 mg twice daily to be taken for 2 more days 3) Atrial fibrillation: On the night of 09/25: You developed irregular heart rhythm called atrial fibrillation. Your heart rate returned back to normal rhythm after a day. [employer] Engineer evaluated you during the hospitalization. You are prescribed amiodarone 200 mg to be taken twice daily for 7 days (till October 03, 2022). Starting October 04, 2022, take amiodarone once a day. This medication helps to keep your heart in normal rhythm. Cardiology will make a follow-up appointment for you. Medication changes: 1) Metoprolol XL is stopped. 2) Please do not take losartan until September 30, 2022 An appointment has been scheduled with your primary care doctor on September 30. Pending Studies at Discharge: No Stand-Alone Forms: My [facility], Smoking Cessation Medications and DC Order Prescriptions: New doxycycline hyclate 100 mg Capsule 100 mg PO BID 2 Days Qty: 4 0RF amiodarone 200 mg tablet See Taper PO BID Qty: 90 0RF Taper: Taper, Blank 200 mg TWICE A DAY for 7 Days 200 mg DAILY for 30 Days Continued ranolazine 1,000 mg tablet extended release 12 hr 1,000 mg PO BID amlodipine 5 mg tablet 5 mg PO DAILY isosorbide mononitrate 120 mg tablet extended release 24 hr 120 mg PO QAM clopidogrel 75 mg tablet 75 mg PO DAILY rosuvastatin 20 mg tablet 20 mg PO QAM metformin 500 mg tablet extended release 24 hr 500 mg PO TIDM nitroglycerin 0.4 mg Tablet, Sublingual 0.4 mg sublingual .UD PRN (Reason: Chest Pain) Rx Instructions: NEEDED FOR CHEST PAIN : ONE TABLET UNDER THE TONGUE EVERY 5 MINUTES, UP TO THREE DOSES. insulin glargine [Lantus Solostar U-100 Insulin] 100 unit/mL (3 mL) insulin pe n 22 unit SUBCUT QAM aspirin 81 mg Tablet,Delayed Release (Dr/Ec) 81 mg PO QAM Held losartan 50 mg tablet 50 mg PO BID Hold Instructions: Resume on 09/30/22. Till you See your PCP Discontinued metoprolol succinate 25 mg tablet extended release 24 hr 25 mg PO BID Discharge Orders: Discharge Order (Routine); Ordered 09/27/22 Ordered By: Can Batista Admission Data Admit Date/Time: 09/23/22 23:16 Attending Provider: Can Batista Admit Provider: Dirk Hayes Primary Care Provider: Carola Arrington Other Providers: Dirk Hayes ; Leonila Boston ; Thomas Cullen ; Azael Lozano ; Jermaine Tesfaye ; Kota Rowell ; Cesar Elias ; Spring Cantor ; Darshana Aleman ; Leonila Reaves ; Alan Hayden ; Zoya Mendoza Other Interventions: Discharge Summary Assessment (RN) Last Done: 09/27/22 13:01
[2022-09-27] MEDS ORDERED: AMIODARONE 200 MG TAB PO SCH (21:00)
--- NOTE | 2022-09-27 22:18 | Electrocardiogram Report ---
Test Reason : Blood Pressure : / mmHG Vent. Rate : 061 BPM Atrial Rate : 061 BPM P-R Int : 176 ms QRS Dur : 142 ms QT Int : 452 ms P-R-T Axes : 004 035 007 degrees QTc Int : 455 ms Normal sinus rhythm Right bundle branch block T wave abnormality, consider anterolateral ischemia Abnormal ECG When compared with ECG of 25-SEP-2022 02:47, Sinus rhythm has replaced Atrial fibrillation Vent. rate has decreased BY 51 BPM Confirmed by Magnus Og ([id number]) on 09/27/2022 10:18:10 PM Referred By: REFERRED SELF Confirmed By:Magnus Og
--- NOTE | 2022-09-28 06:31 | Electrocardiogram Report ---
Test Reason : Blood Pressure : / mmHG Vent. Rate : 063 BPM Atrial Rate : 063 BPM P-R Int : 160 ms QRS Dur : 144 ms QT Int : 466 ms P-R-T Axes : -06 035 014 degrees QTc Int : 476 ms Normal sinus rhythm Right bundle branch block Abnormal ECG When compared with ECG of 26-SEP-2022 12:29, T wave inversion less evident in Anterolateral leads Confirmed by Magnus Og ([id number]) on 09/28/2022 6:30:43 AM Referred By: REFERRED SELF Confirmed By:Magnus Og
[2022-09-28] MEDS ORDERED: LANTUS PER UNIT CHARGE SQ SCH (09:00)
== END 2022-09-27 13:17 | disposition home or self-care (01) | DRG 194 ==
LOC: ED 20:39 → 2N 23:16 → SUATTDRO 23:16 → 2N 09-24 00:11 → 2S 09-25 11:41

== ENCOUNTER 2022-10-03 08:04 | Observation (INO) ==
--- NOTE | 2022-10-03 08:33 | Emergency Department Note ---
Impression & Plan Weakness, Hypomagnesemia, Hyponatremia ED Provider Note Provider: Leno Mendiola MD DATE OF SERVICE: 10/03/2022 CHIEF COMPLAINT: Unsteady, weak HISTORY OF PRESENT ILLNESS: Patient is a 87-year-old gentleman history of hypertension, CAD status post CABG on Plavix, recent new onset paroxysmal atrial fibrillation currently amiodarone but no other anticoagulation, and diabetes presenting here with today reporting since yesterday having increasing stumbling and unsteadiness. Weak and shaky over the last about 4 days no falls reported. States does not feel dizzy or vertigo but when he gets up and tries to walk very unsteady. Since coming home almost a week ago has been using a walker. Yesterday seem to worsen with this. Denies any new numbness or weakness or speech issues. Reports last evening after dinner and in the vomit once but denies nausea now. Denies any abdominal pain or chest pain. Denies headache. Denies breathing issue. Has had multiple medication changes and is currently on the amiodarone taper as prescribed from his hospitalization. Denies palpitations to his knowledge. Scheduled for follow-up with cardiology next week. PAST MEDICAL HISTORY: As noted above MEDICATIONS: Reviewed home medication SOCIAL HISTORY: lives at home PHYSICAL EXAM: GENERAL: alert and oriented in no acute distress on stretcher Head: normocephalic and atraumatic EYES: No injection, discharge or icterus. PERRL, EOMI. NECK: Trachea midline. ENT: Mucous membranes pink and moist. LUNGS: Airway patent. No retractions. Breath sounds clear HEART: Regular rate and rhythm. No chest wall tenderness ABDOMEN: Soft and non-tender, without guarding or rebound. SKIN: Acyanotic, warm, dry, without rashes EXTREMITIES: Without swelling, tenderness or deformity NEUROLOGICAL: No focal deficits. No aphasia. No facial droop or slurred speech. Normal strength and tone in the extremities. Sensation to gross touch normal. Ambulatory. EK bpm appears to be in normal sinus rhythm with PAC with some baseline artifact. Right bundle branch block noted. QTc 484. No clear acute ST segment elevation noted. CONTINUOUS CARDIAC MONITORING: was ordered and showed a heart rate of 60s-70s bpm in sinus rhythm occasional PAC Patient's laboratory studies and imaging reviewed. Differential includes Infection, dehydration, metabolic abnormality, hypo/hyperglycemia, electrolyte disturbance, anemia, hypoxia, cardiac sources, intracerebral event/neurologic, gastrointestinal as well as other pathologies. IMPRESSION/MEDICAL DECISION MAKING: Patient denies any pain or actual falls with some increased weakness and shakiness peripherally over the past 24 hours. 1 episode of vomiting yesterday but none since. Has not eaten since this last evening. No pain reports. Denies specific numbness weakness vertigo or speech issues. Dizziness and unsteadiness is only when he walks. Has been using walker at home. Recent hospitalization and reviewed these records. Appears to be in a sinus rhythm at this time with some artifact noted. Not on full anticoagulation. Will send for CT of the head to exclude CVA although not having large focal deficits. Benign abdomen on exam and doubt acute intra-abdominal pathology such as gallbladder pathology, perforation, obstruction, or appendicitis. Basic labs sent as well as a chest x-ray ordered. No fevers or other infectious symptoms reported. CT of the head per radiology without significant findings and chest x-ray without any acute pathology noted. Blood work here without significant leukocytosis. Normal platelet count. Stable to slightly improved mild anemia. Worsened hyponatremia today of 129. Some hypomagnesemia of 1.6 noted. IV supplementation ordered. Some increased BUN and creatinine today from his baseline and question some component of dehydration. Started on some IV fluids for supplementation. States he has been eating and drinking but this may be contributing. DIAGNOSIS: Weakness, hypomagnesemia, hyponatremia DISPOSITION: Hospitalist will evaluate Patient was agreeable with this plan. Past Med/Surg History Medical History (Updated 10/03/22 @ 12:43 by Leno Mendiola M.D.) Acute hyponatremia CAD (coronary artery disease) Diabetes mellitus Dyslipidemia Falls Paroxysmal atrial fibrillation Surgical History (Updated 10/03/22 @ 11:19 by Sofy Mackay PA-C) History of appendectomy S/P CABG x 3 "s/p CABG [facility] [place] 2008 REYES-LAD, SVG-left circ, SVG-post desc art " Family History (Updated 10/03/22 @ 11:20 by Sofy Mackay PA-C) Other Dementia Heart disease Stroke Social History Smoking Status: Former smoker Second Hand Exposure: No; Do You Dip or Chew Tobacco: No; Hx Alcohol Use: Yes Alcohol type: beer Hx Substance Use: No Preferred Language: Yoruba Communication Ability: Effective Construction Safety 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 Required: No Beliefs That Will Affect Care: None Current Living Situation: Spouse Current Living Situation Comment: Lives w/ at home Feels Safe at Home: Yes Assistive Devices: Glasses Allergies Allergies Allergy/AdvReac Type Severity Reaction Status Date / Time No Known Allergies Allergy Verified 09/23/22 22:13 Home Meds Home Medications Medication Instructions Recorded Confirmed amlodipine 5 mg tablet 5 mg PO DAILY 09/23/22 10/03/22 aspirin 81 mg tablet,delayed 81 mg PO QAM 09/23/22 10/03/22 release clopidogrel 75 mg tablet 75 mg PO DAILY 09/23/22 10/03/22 insulin glargine 100 unit/mL (3 25 unit subcut QA 09/23/22 10/03/22 mL) subcutaneous pen (Lantus Solostar U-100 Insulin) isosorbide mononitrate 120 mg 120 mg PO QAM 09/23/22 10/03/22 tablet,extended release 24 hr metformin 500 mg tablet,extended See Rx Instructions .Route .COMPLEX 09/23/22 10/03/22 release 24 hr nitroglycerin 0.4 mg sublingual 0.4 mg sublingual .UD PRN Chest 09/23/22 10/03/22 tablet Pain ranolazine 1,000 mg 1,000 mg PO BID 09/23/22 10/03/22 tablet,extended release,12 hr rosuvastatin 20 mg tablet 20 mg PO QAM 09/23/22 10/03/22 amiodarone 200 mg tablet See Taper PO BID 10/03/22 10/03/22 Results & Data (ED) Vital Signs Vital Signs - 24 hr 10/03/22 08:16 10/03/22 08:40 10/03/22 09:01 Temperature 36.4 C L Temperature Source Temporal Artery Scan Pulse Rate 85 67 Pulse Rate [Apical] 67 Pulse Rhythm Regular Pulse Rhythm [Apical] Irregular Pulse Strength Normal Respiratory Rate 20 17 Respiratory Effort / Characteristics Non-Labored Spontaneous Non-Labored Spontaneous Respiratory Depth Normal Normal Respiratory Pattern Regular Regular Blood Pressure 123/65 Blood Pressure [Left Arm] 118/70 Blood Pressure Mean 84 Blood Pressure Mean [Left Arm] 86 Blood Pressure Position Sitting Blood Pressure Position [Left Arm] Semi-fowlers Pulse Oximetry 98 99 Oxygen Delivery Method Room Air Room Air Sepsis Recent Fever Within 48 Hours No Sepsis New/Unexplained Change in Mental Status No Sepsis Action Taken by Nursing No Action Required 10/03/22 09:43 10/03/22 11:33 10/03/22 12:40 Temperature Temperature Source Pulse Rate 63 Pulse Rate [Apical] 68 61 Pulse Rhythm Pulse Rhythm [Apical] Irregular Pulse Strength Respiratory Rate 20 16 Respiratory Effort / Characteristics Non-Labored Spontaneous Non-Labored Spontaneous Respiratory Depth Normal Normal Respiratory Pattern Regular Blood Pressure Blood Pressure [Left Arm] 128/73 120/65 Blood Pressure Mean Blood Pressure Mean [Left Arm] 91 83 Blood Pressure Position Blood Pressure Position [Left Arm] Semi-fowlers Pulse Oximetry 97 Oxygen Delivery Method Room Air Sepsis Recent Fever Within 48 Hours Sepsis New/Unexplained Change in Mental Status Sepsis Action Taken by Nursing Laboratory Data 10/03/22 08:31 10/03/22 08:31 Lab Results 10/03/22 10/03/22 10/03/22 Range/Units 08:31 08:31 08:31 WBC 7.46 (4.8-10.8) K/ul RBC 3.78 L (4.70-6.10) M/uL Hgb 12.6 L (14.0-18.0) g/dl Hct 35.8 L (42.0-52.0) % MCV 94.7 (80.0-100.0) fL MCH 33.3 (25.0-34.0) pg MCHC 35.2 (32.0-36.0) g/dL RDW Std Deviation 42.6 (36.4-46.3) fL RDW Coeff of Venancio 12.3 (11.5-14.5) % Plt Count 175 (130-400) K/uL MPV 9.1 L (9.4-12.4) fL Immature Gran % (Auto) 0.7 % Neut % (Auto) 65.1 % Lymph % (Auto) 25.7 % [place] % (Auto) 7.5 % Eos % (Auto) 0.7 % Baso % (Auto) 0.3 % Neut # (Auto) 4.86 (1.40-6.50) K/uL Lymph # (Auto) 1.92 (1.2-3.4) K/uL [place] # (Auto) 0.56 (0.11-0.59) K/uL Eos # (Auto) 0.05 (0-0.50) K/uL Baso # (Auto) 0.02 (0-0.2) K/uL Immature Gran # (Auto) 0.05 (0.01-0.20) K/uL PT 12.4 H (9.0-12.0) Seconds INR 1.1 (0.9-1.1) Sodium 129 L (136-145) mmol/L Potassium 5.0 (3.5-5.1) mmol/L Chloride 94 L (98-107) mmol/L Carbon Dioxide 27 (21-32) mmol/L Anion Gap 8 (3-11) BUN 48 H (6-23) mg/dl Creatinine 1.72 H (0.6-1.4) mg/dl Est Cr Clr Drug Dosing 29.7 ml/min Est GFR ( Amer) 40.8 ml/min Est GFR (Non-Af Amer) 35.2 ml/min BUN/Creatinine Ratio 27.9 H (10-20) Glucose 168 H (70-99(Fasting)) mg/dl Calcium 10.8 H (8.6-10.3) mg/dl Magnesium 1.6 L (1.7-2.4) mg/dl Total Bilirubin 0.7 (0.2-1.0) mg/dl AST 26 (13-39) U/L ALT 24 (7-52) U/L Alkaline Phosphatase 47 (34-104) U/L Troponin I High Sens 8.1 (0-20) pg/ml Total Protein 7.3 (6.0-8.3) gm/dl Albumin 4.1 (3.4-5.0) gm/dl Globulin 3.2 (2.5-4.0) gm/dl Albumin/Globulin Ratio 1.3 (0.9-2) TSH (0.300-4.500) uIu/ml Urine Color Urine Appearance (Clear) Urine pH (4.5-7.5) Ur Specific [place] (1.000-1.030) Urine Protein (Negative) Urine Glucose (UA) (Negative) Urine Ketones (Negative) Urine Blood (Negative) Urine Nitrite (Negative) Urine Bilirubin (Negative) Urine Urobilinogen (Negative) Ur Leukocyte Esterase (Negative) Urine WBC (Auto) (0-5) /hpf Urine RBC (Auto) (0-4) /hpf U Hyaline Cast (Auto) (0-5) /lpf U Epithel Cells (Auto) (0-5) /lpf Urine Bacteria (Auto) (Negative) SARS-CoV-2, RNA, NAAT (NEGATIVE) 10/03/22 10/03/22 10/03/22 Range/Units 08:31 08:35 10:11 WBC (4.8-10.8) K/ul RBC (4.70-6.10) M/uL Hgb (14.0-18.0) g/dl Hct (42.0-52.0) % MCV (80.0-100.0) fL MCH (25.0-34.0) pg MCHC (32.0-36.0) g/dL RDW Std Deviation (36.4-46.3) fL RDW Coeff of Venancio (11.5-14.5) % Plt Count (130-400) K/uL MPV (9.4-12.4) fL Immature Gran % (Auto) % Neut % (Auto) % Lymph % (Auto) % [place] % (Auto) % Eos % (Auto) % Baso % (Auto) % Neut # (Auto) (1.40-6.50) K/uL Lymph # (Auto) (1.2-3.4) K/uL [place] # (Auto) (0.11-0.59) K/uL Eos # (Auto) (0-0.50) K/uL Baso # (Auto) (0-0.2) K/uL Immature Gran # (Auto) (0.01-0.20) K/uL PT (9.0-12.0) Seconds INR (0.9-1.1) Sodium (136-145) mmol/L Potassium (3.5-5.1) mmol/L Chloride (98-107) mmol/L Carbon Dioxide (21-32) mmol/L Anion Gap (3-11) BUN (6-23) mg/dl Creatinine (0.6-1.4) mg/dl Est Cr Clr Drug Dosing ml/min Est GFR ( Amer) ml/min Est GFR (Non-Af Amer) ml/min BUN/Creatinine Ratio (10-20) Glucose (70-99(Fasting)) mg/dl Calcium (8.6-10.3) mg/dl Magnesium (1.7-2.4) mg/dl Total Bilirubin (0.2-1.0) mg/dl AST (13-39) U/L ALT (7-52) U/L Alkaline Phosphatase (34-104) U/L Troponin I High Sens (0-20) pg/ml Total Protein (6.0-8.3) gm/dl Albumin (3.4-5.0) gm/dl Globulin (2.5-4.0) gm/dl Albumin/Globulin Ratio (0.9-2) TSH 3.467 (0.300-4.500) uIu/ml Urine Color Yellow Urine Appearance Clear (Clear) Urine pH 6.0 (4.5-7.5) Ur Specific [place] 1.018 (1.000-1.030) Urine Protein 1+ H (Negative) Urine Glucose (UA) Negative (Negative) Urine Ketones Trace H (Negative) Urine Blood Negative (Negative) Urine Nitrite Negative (Negative) Urine Bilirubin Negative (Negative) Urine Urobilinogen Negative (Negative) Ur Leukocyte Esterase 1+ H (Negative) Urine WBC (Auto) 10-30 H (0-5) /hpf Urine RBC (Auto) 0-4 (0-4) /hpf U Hyaline Cast (Auto) 1-5 (0-5) /lpf U Epithel Cells (Auto) >30 H (0-5) /lpf Urine Bacteria (Auto) Negative (Negative) SARS-CoV-2, RNA, NAAT NEGATIVE (NEGATIVE) Administered Medications Sodium Chloride (Nss 1000ml) 1,000 mls @ 125 mls/hr IV .Q8H AMY Stop: 11/02/22 09:29 Last Admin: 10/03/22 09:31 Dose: 125 mls/hr Documented By: NA Discontinued Medications Magnesium Sulfate/Dextrose (Magnesium Sulfate / D5w) 1 gm in 100 mls @ 200 mls /hr IV Q30M AMY Stop: 10/03/22 10:22 Last Infusion: 10/03/22 11:02 Dose: 0 mls/hr Documented By: Admin: 10/03/22 10:08 Dose: 200 mls/hr Documented By: Infusion: 10/03/22 10:02 Dose: 200 mls/hr Documented By: Admin: 10/03/22 09:32 Dose: 200 mls/hr Documented By: TAMIKA Imaging Data Radiologist's Impression: Head CT 10/03/22 08:30 CT head/brain wo con CLINICAL HISTORY: 87 years-old Male with unsteady, weak, vomiting. Acute weakness with nausea and vomiting TECHNIQUE: Multiple axial CT images of the head were obtained without contrast. A dose lowering technique was utilized adhering to the principles of ALARA. CT DOSE: 625.80 mGy.cm COMPARISON: Head CT 09/23/2022 FINDINGS: No acute intracranial hemorrhage, midline shift, intracranial mass, hydrocephalus, territorial ischemia or abnormal extra-axial collection. Involutional changes with chronic microvascular ischemic disease. Cerebrovascular calcifications. Punctate left lentiform nuclear calcification. The calvarium is intact. Prior bilateral lens repair. The paranasal sinuses, mastoid air cells, and middle ear cavities are clear. IMPRESSION: No acute intracranial abnormality. ACT 112: Negative or not required by law. The above report was generated using voice recognition software. It may contain grammatical, syntax or spelling errors. Electronically signed by: Cain Kidd M.D. 10/03/2022 8:55 AM Chest X-Ray 10/03/22 08:31 XR chest 1V portable CLINICAL HISTORY: weakness COMPARISON STUDY: Chest radiograph September 25, 2022. FINDINGS: Median sternotomy wires and mediastinal surgical clips are noted. Mild cardiomegaly is unchanged. There is no evidence for pulmonary edema. No pneumothorax or pleural effusion is present. Linear left basilar densities favor atelectasis. There has been no significant change in appearance of the chest. IMPRESSION: No acute cardiopulmonary findings. No significant change in appearance of the chest. ACT 112: Negative or not required by law. Electronically signed by: Ravindra Agudelo M.D. 10/03/2022 9:09 AM Discharge Plan Visit Data Chief Complaint: Weakness Stated Complaint: WEAKNESS ED Provider: Leno Mendiola Discharge Problem: Weakness, Hypomagnesemia, Hyponatremia Patient Disposition: Being Evaluated by Hospitalist Forms Stand Alone Forms: [facility]ub[facility] Prescriptions Prescriptions: No Action amiodarone 200 mg tablet See Taper PO BID Taper: Taper, Blank 200 mg TWICE A DAY for 7 Days 200 mg DAILY for 30 Days Rx Instructions: Patient is taking 200mg by mouth once in the morning and once in the evening until 10/05/22. At which point he will only be taking 200mg by mouth once in the morning. ranolazine 1,000 mg tablet extended release 12 hr 1,000 mg PO BID amlodipine 5 mg tablet 5 mg PO DAILY isosorbide mononitrate 120 mg tablet extended release 24 hr 120 mg PO QAM clopidogrel 75 mg tablet 75 mg PO DAILY rosuvastatin 20 mg tablet 20 mg PO QAM metformin 500 mg tablet extended release 24 hr See Rx Instructions .ROUTE .COMPLEX Rx Instructions: Patient is taking 1000mg by mouth in the morning and 500mg by mouth in the evening. nitroglycerin 0.4 mg Tablet, Sublingual 0.4 mg sublingual .UD PRN (Reason: Chest Pain) Rx Instructions: NEEDED FOR CHEST PAIN : ONE TABLET UNDER THE TONGUE EVERY 5 MINUTES, UP TO THREE DOSES. insulin glargine [Lantus Solostar U-100 Insulin] 100 unit/mL (3 mL) insulin pen 25 unit SUBCUT QAM aspirin 81 mg Tablet,Delayed Release (Dr/Ec) 81 mg PO QAM Referrals Referrals: Carola Arrington MD [Primary Care Provider] -
--- NOTE | 2022-10-03 08:57 | CT Scan Report ---
CT head/brain wo con CLINICAL HISTORY: 87 years-old Male with unsteady, weak, vomiting. Acute weakness with nausea and vo miting TECHNIQUE: Multiple axial CT images of the head were obtained without contrast. A dose lowering tech nique was utilized adhering to the principles of ALARA. CT DOSE: 625.80 mGy.cm COMPARISON: Head CT 09/23/2022 FINDINGS: No acute intracranial hemorrhage, midline shift, intracranial mass, hydrocephalus, territorial ischem ia or abnormal extra-axial collection. Involutional changes with chronic microvascular ischemic disea se. Cerebrovascular calcifications. Punctate left lentiform nuclear calcification. The calvarium is intact. Prior bilateral lens repair. The paranasal sinuses, mastoid air cells, and m iddle ear cavities are clear. IMPRESSION: No acute intracranial abnormality. ACT 112: Negative or not required by law. The above report was generated using voice recognition software. It may contain grammatical, syntax o r spelling errors. Electronically signed by: Cain Kidd M.D. 10/03/2022 8:55 AM
[2022-10-03 09:02] LABS: Basophils # (auto) 0.02 K/uL (0-0.2); Basophils % (auto) 0.3 %; Eosinophils # (auto) 0.05 K/uL (0-0.50); Eosinophils % (auto) 0.7 %; Hematocrit (blood only) 35.8 % (42.0-52.0); Hemoglobin 12.6 g/dl (14.0-18.0); Immature Granulocytes # (auto) 0.05 K/uL (0.01-0.20); Immature Granulocytes % (auto) 0.7 %; Lymphocytes # (auto) 1.92 K/uL (1.2-3.4); Lymphocytes % (auto) 25.7 %; Mean Corpuscular Hemoglobin 33.3 pg (25.0-34.0); Mean Corpuscular Hgb Conc 35.2 g/dL (32.0-36.0); Mean Corpuscular Volume 94.7 fL (80.0-100.0); Mean Platelet Volume 9.1 fL (9.4-12.4); Monocytes # (auto) 0.56 K/uL (0.11-0.59); Monocytes % (auto) 7.5 %; Neutrophils # (auto) 4.86 K/uL (1.40-6.50); Neutrophils % (auto) 65.1 %; Platelet Count 175 K/uL (130-400); RDW Coefficient of Variation 12.3 % (11.5-14.5); RDW Standard Deviation 42.6 fL (36.4-46.3); Red Blood Count 3.78 M/uL (4.70-6.10); White Blood Count 7.46 K/ul (4.8-10.8)
[2022-10-03 09:12] LABS: Albumin Globulin Ratio 1.3 (0.9-2); Albumin Level 4.1 gm/dl (3.4-5.0); BUN Creatinine Ratio 27.9 (10-20); Bilirubin,Total 0.7 mg/dl (0.2-1.0); Calcium 10.8 mg/dl (8.6-10.3); Creatinine Clr Calc Pharmacy 29.7 ml/min; Est GFR (African American) 40.8 ml/min; Est GFR (Non-African American) 35.2 ml/min; Globulin 3.2 gm/dl (2.5-4.0); Magnesium 1.6 mg/dl (1.7-2.4); Total Protein 7.3 gm/dl (6.0-8.3)
--- NOTE | 2022-10-03 09:12 | XRay Report ---
XR chest 1V portable CLINICAL HISTORY: weakness COMPARISON STUDY: Chest radiograph September 25, 2022. FINDINGS: Median sternotomy wires and mediastinal surgical clips are noted. Mild cardiomegaly is unch anged. There is no evidence for pulmonary edema. No pneumothorax or pleural effusion is present. Line ar left basilar densities favor atelectasis. There has been no significant change in appearance of th e chest. IMPRESSION: No acute cardiopulmonary findings. No significant change in appearance of the chest. ACT 112: Negative or not required by law. Electronically signed by: Ravindra Agudelo M.D. 10/03/2022 9:09 AM
[2022-10-03 09:18] LABS: Troponin I High Sensitivity 8.1 pg/ml (0-20)
[2022-10-03 09:19] LABS: INR 1.1 (0.9-1.1); Prothrombin Time 12.4 Seconds (9.0-12.0)
[2022-10-03] MEDS: SODIUM CHLORIDE 0.9% 1000ML 1,000 ML IV SCH ×2 (09:31→20:30)
[2022-10-03] MEDS: MAGNESIUM SULFATE / D5W 1 GM/100 ML BAG IV SCH ×2 (09:32→10:08)
--- NOTE | 2022-10-03 10:03 | History & Physical Report ---
Date of Service October 03, 2022 Assessment & Plan (1) Hypomagnesemia: (2) Acute hyponatremia: Plan: -Admit to med tele -Electrolyte abnormalities, Replace, trend with BMP -Patient reports vomiting last evening, likely could cause electrolyte imbalance, question acute gastritis? No further abdominal complaints or episodes of nausea/vomiting/diarrhea, monitor -PT/OT consults -Fall precautions (3) KIKI (acute kidney injury): Plan: - Losartan was held at discharge on 09/27, hold amlodipine -Renally reduce medications and avoid nephrotoxins -Trend BMP -NSS IV (4) CAD (coronary artery disease): (5) HTN (hypertension): (6) Dyslipidemia: Plan: -Recent diagnosis of A-fib with RVR and was started on amiodarone during his last hospitalization, continue -Was taken off of losartan and metoprolol at that time, may hold amlodipine with slight KIKI -May continue isosorbide mononitrate, rosuvastatin -EKG reviewed and he is in NSR (7) Diabetes mellitus: Plan: -Hold metformin -May continue Lantus 25 units QAM -ISS with Accu-Cheks ACHS -Last A1c = 9.4 on 07/10/22 Pt , Beatrice was present at bedside and all her questions and concerns were addressed. DVT PPx: - teds, scds, heparin subq CODE: DNR/DNI Dispo: From home, likely to remain in the hospital x 1-2 days A total of 77 minutes were spent with greater than 50% of that time face to face with the patient, personally reviewing all current laboratories, imaging studies, past medication reconciliation, outpatient chart review, and discussion with specialists to collaborate care for the patient with attending. Please see attending documentation for corrections and/or additions. History of Present Illness Chief Complaint: Falls, weakness Primary Care Provider: Carola Arrington MD This is an 87 yo M with PMhx of CAD status post CABG/stent, PVD, hypertension, valvular heart disease (mild /TR ), DM 2 insulin requiring, CRI (baseline creatinine 1.5 ), chronic anemia (baseline hemoglobin 12 ), skin cancer as per records, past tobacco abuse. Patient was recently admitted here from 09/23 to 09/27 and was found to be in new onset A-fib with RVR, falls, weakness, symptomatic bradycardia, pneumonia, hyponatremia and KIKI. He was treated with an IV antibiotic, and finished a course with 2 days of doxycycline upon discharge. He was started on oral amiodarone and converted to normal sinus rhythm, during his hospitalization he was also on a heparin drip. He was not recommended to be on anticoagulation after discharge due to history of frequent falls. His hyponatremia improved, losartan was held at time of discharge. His creatinine also trended down from 1.85-1.39 on discharge. His falls were evaluated by PT and OT and was given a prescription for a rolling walker at discharge which she has been using at home. Today the patient returns today due to increased falls, weakness, vomiting x1 which all began yesterday after eating supper. He states that he had a fairly normal day, and then began to feel weak and had some increased shakiness with walking after supper. He then proceeded to have a large episode of vomiting, no blood, which consisted of his evening meal. Throughout the night whenever he needed to routinely get up and use the restroom his walked with him to ensure that he would not fall. He had used his walker last evening, however prior to that he did not need it since being discharged last week. Today he has no abdominal complaints, no diarrhea, no nausea or vomiting today. He feels better after having fluids given in the ER. Patient took all of his morning medications. In the ER he is found to have low magnesium of 1.6, hyponatremia with sodium 129, and creatinine is slightly elevated again at 1.72. He had seen his PCP for posthospital follow-up earlier this week and was scheduled for outpatient labs tomorrow. Allergies Allergy/AdvReac Type Severity Reaction Status Date / Time No Known Allergies Allergy Verified 09/23/22 22:13 Home Medications Medication Instructions Recorded Confirmed Type amlodipine 5 mg tablet 5 mg PO DAILY 09/23/22 10/03/22 History aspirin 81 mg tablet,delayed 81 mg PO QAM 09/23/22 10/03/22 History release clopidogrel 75 mg tablet 75 mg PO DAILY 09/23/22 10/03/22 History insulin glargine 100 unit/mL (3 25 unit subcut QAM 09/23/22 10/03/22 History mL) subcutaneous pen (Lantus Solostar U-100 Insulin) isosorbide mononitrate 120 mg 120 mg PO QAM 09/23/22 10/03/22 History tablet,extended release 24 hr metformin 500 mg tablet,extended See Rx Instructions .Route .COMPLEX 09/23/22 History release 24 hr nitroglycerin 0.4 mg sublingual 0.4 mg sublingual .UD PRN Chest 09/23/22 10/03/22 History tablet Pain ranolazine 1,000 mg 1,000 mg PO BID 09/23/22 10/03/22 History tablet,extended release,12 hr rosuvastatin 20 mg tablet 20 mg PO QAM 09/23/22 10/03/22 History amiodarone 200 mg tablet See Taper PO BID 10/03/22 10/03/22 History Past Med/Surg History Medical History (Updated 10/03/22 @ 12:43 by Leno Mendiola M.D.) Acute hyponatremia CAD (coronary artery disease) Diabetes mellitus Dyslipidemia Falls Paroxysmal atrial fibrillation Surgical History (Updated 10/03/22 @ 11:19 by Sofy Mackay PA-C) History of appendectomy S/P CABG x 3 "s/p CABG [facility] [place] 2008 REYES-LAD, SVG-left circ, SVG-post desc art " Family History (Updated 10/03/22 @ 11:20 by Sofy Mackay PA-C) Other Dementia Heart disease Stroke Social History Smoking Status: Former smoker Second Hand Exposure: No; Do You Dip or Chew Tobacco: No; Hx Alcohol Use: Yes Alcohol type: beer Hx Substance Use: No Preferred Language: Arabic Communication Ability: Effective Ball Points Inspector Required: No Beliefs That Will Affect Care: None Current Living Situation: Spouse Current Living Situation Comment: Lives w/ at home Feels Safe at Home: Yes Assistive Devices: Glasses Review of Systems Review of Systems: Constitutional: No fever, sweats or chills Eyes: No diplopia, no worsening or blurred vision ENT: normal hearing, no trouble swallowing Respiratory: No cough, sputum, dyspnea at rest or on exertion Cardiovascular: No chest pain, tightness or palpitations Abdomen:+As per HPI, no pain, nausea, vomiting, diarrhea or constipation Musculoskeletal: No joint pain, calf pain, swelling Neurologic: + generalized weakness, numbness/tingling, or balance problems, no falls recently, had to use walker last evening as per HPI. Psychiatric: No anxiety or depression Skin: No rash or itch Physical Exam 2 Physical Exam: General: awake, alert, no apparent distress, + thin Head: Normocephalic, atraumatic ENT: PERRL, EOMI, no pharyngeal exudate, mucous membranes moist Chest: Clear to auscultation, on room air, no adventitious breath sounds Cardiac: Regular rate and rhythm, + BRIGID, grade II/, no JVD, normal peripheral pulses, good capillary refill Abdominal: NABS x 4 quadrants, soft, nondistended, nontender to palpation, no rebound or guarding Extremities: Normal inspection, no peripheral edema or erythema, calfs nontender to palpation Psych: Normal mood and affect Neuro: AAO x 3, strength intact bilaterally and rated 5/5, no motor deficits, speech is clear, no peripheral sensory deficits, gait was not assessed Results & Data Results & Data Vital Signs (Past 12 Hours) Vital Signs Temp Pulse Pulse Resp BP BP Pulse Ox 10/03/22 09:43 68 20 128/73 97 10/03/22 09:01 67 17 118/70 99 10/03/22 08:40 67 10/03/22 08:16 36.4 C L 85 20 123/65 98 O2 Del Method 10/03/22 09:43 Room Air 10/03/22 09:01 Room Air 10/03/22 08:40 10/03/22 08:16 Room Air Laboratory Results 10/03/22 10:11 Urine Culture - Pending Urine,Clean Catch 10/03/22 10/03/22 10/03/22 10:11 08:35 08:31 WBC RBC Hgb Hct MCV MCH MCHC RDW Std Deviation RDW Coeff of Venancio Plt Count MPV Immature Gran % (Auto) Neut % (Auto) Lymph % (Auto) [place] % (Auto) Eos % (Auto) Baso % (Auto) Neut # (Auto) Lymph # (Auto) [place] # (Auto) Eos # (Auto) Baso # (Auto) Immature Gran # (Auto) PT INR Sodium Potassium Chloride Carbon Dioxide Anion Gap BUN Creatinine Est Cr Clr Drug Dosing Est GFR ( Amer) Est GFR (Non-Af Amer) BUN/Creatinine Ratio Glucose Calcium Magnesium Total Bilirubin AST ALT Alkaline Phosphatase Troponin I High Sens Total Protein Albumin Globulin Albumin/Globulin Ratio TSH 3.467 Urine Color Yellow Urine Appearance Clear Urine pH 6.0 Ur Specific Mckean 1.018 Urine Protein 1+ H Urine Glucose (UA) Negative Urine Ketones Trace H Urine Blood Negative Urine Nitrite Negative Urine Bilirubin Negative Urine Urobilinogen Negative Ur Leukocyte Esterase 1+ H Urine WBC (Auto) 10-30 H Urine RBC (Auto) 0-4 U Hyaline Cast (Auto) 1-5 U Epithel Cells (Auto) >30 H Urine Bacteria (Auto) Negative SARS-CoV-2, RNA, NAAT NEGATIVE 10/03/22 10/03/22 10/03/22 08:31 08:31 08:31 WBC 7.46 RBC 3.78 L Hgb 12.6 L Hct 35.8 L MCV 94.7 MCH 33.3 MCHC 35.2 RDW Std Deviation 42.6 RDW Coeff of Venancio 12.3 Plt Count 175 MPV 9.1 L Immature Gran % (Auto) 0.7 Neut % (Auto) 65.1 Lymph % (Auto) 25.7 [place] % (Auto) 7.5 Eos % (Auto) 0.7 Baso % (Auto) 0.3 Neut # (Auto) 4.86 Lymph # (Auto) 1.92 [place] # (Auto) 0.56 Eos # (Auto) 0.05 Baso # (Auto) 0.02 Immature Gran # (Auto) 0.05 PT 12.4 H INR 1.1 Sodium 129 L Potassium 5.0 Chloride 94 L Carbon Dioxide 27 Anion Gap 8 BUN 48 H Creatinine 1.72 H Est Cr Clr Drug Dosing 29.7 Est GFR ( Amer) 40.8 Est GFR (Non-Af Amer) 35.2 BUN/Creatinine Ratio 27.9 H Glucose 168 H Calcium 10.8 H Magnesium 1.6 L Total Bilirubin 0.7 AST 26 ALT 24 Alkaline Phosphatase 47 Troponin I High Sens 8.1 Total Protein 7.3 Albumin 4.1 Globulin 3.2 Albumin/Globulin Ratio 1.3 TSH Urine Color Urine Appearance Urine pH Ur Specific Mckean Urine Protein Urine Glucose (UA) Urine Ketones Urine Blood Urine Nitrite Urine Bilirubin Urine Urobilinogen Ur Leukocyte Esterase Urine WBC (Auto) Urine RBC (Auto) U Hyaline Cast (Auto) U Epithel Cells (Auto) Urine Bacteria (Auto) SARS-CoV-2, RNA, NAAT Diagnostic Findings Head CT 10/03/22 08:30 CT head/brain wo con CLINICAL HISTORY: 87 years-old Male with unsteady, weak, vomiting. Acute weakness with nausea and vomiting TECHNIQUE: Multiple axial CT images of the head were obtained without contrast. A dose lowering technique was utilized adhering to the principles of ALARA. CT DOSE: 625.80 mGy.cm COMPARISON: Head CT 09/23/2022 FINDINGS: No acute intracranial hemorrhage, midline shift, intracranial mass, hydrocephalus, territorial ischemia or abnormal extra-axial collection. Involutional changes with chronic microvascular ischemic disease. Cerebrovascular calcifications. Punctate left lentiform nuclear calcification. The calvarium is intact. Prior bilateral lens repair. The paranasal sinuses, mastoid air cells, and middle ear cavities are clear. IMPRESSION: No acute intracranial abnormality. ACT 112: Negative or not required by law. The above report was generated using voice recognition software. It may contain grammatical, syntax or spelling errors. Electronically signed by: Cain Kidd M.D. 10/03/2022 8:55 AM Chest X-Ray 10/03/22 08:31 XR chest 1V portable CLINICAL HISTORY: weakness COMPARISON STUDY: Chest radiograph September 25, 2022. FINDINGS: Median sternotomy wires and mediastinal surgical clips are noted. Mild cardiomegaly is unchanged. There is no evidence for pulmonary edema. No pneumothorax or pleural effusion is present. Linear left basilar densities favor atelectasis. There has been no significant change in appearance of the chest. IMPRESSION: No acute cardiopulmonary findings. No significant change in appearance of the chest. ACT 112: Negative or not required by law. Electronically signed by: Ravindra Agudelo M.D. 10/03/2022 9:09 AM ECG Additional Comments: NSR with few PACs, RBB NO Signs of ischemia or ST wave changes Code Status & VTE Plan Code Status DNR/DNI - discussed with the patient at bedside Supervising Physician Co-Signing Physician Notes Pt seen and examined by myself, Delmi Hines MD on the day of service. Care was coordinated with Sofy Mackay PA-C. Please refer to her note for additional information. 87yo gentleman recently discharged home after being admitted with multiple falls. Presenting with generalized weakness after vomiting at home for the past day. States it was one episode with quite a lot coming up after a meal. Electrolyte abnormalities noted in the ED with an KIKI. Replenish electrolytes, gentle IV hydration. Holding amlodipine for BP concerns, can continue in KIKI setting if BP trends higher. Otherwise per documentation noted above.
[2022-10-03 10:32] LABS: Appearance Urine Clear (Clear); Bacteria Urine Automated Negative (Negative); Bilirubin Urine Negative (Negative); Blood Urine Negative (Negative); Color Urine Yellow; Epithelial Cell Urine Auto >30 /lpf (0-5); Glucose Urine UA Negative (Negative); Ketones Urine Trace (Negative); Leukocyte Esterase Urine 1+ (Negative); Nitrite Urine Negative (Negative); Protein Urine 1+ (Negative); RBC Urine Automated 0-4 /hpf (0-4); Specific Gravity Urine 1.018 (1.000-1.030); Urobilinogen Urine Negative (Negative)
--- NOTE | 2022-10-03 10:41 | Electrocardiogram Report ---
Test Reason : Blood Pressure : / mmHG Vent. Rate : 069 BPM Atrial Rate : 000 BPM P-R Int : 000 ms QRS Dur : 156 ms QT Int : 452 ms P-R-T Axes : 000 059 055 degrees QTc Int : 484 ms Sinus rhythm with PACs Right bundle branch block Abnormal ECG Confirmed by Cal Turner ([id number]) on 10/03/2022 10:41:38 AM Referred By: Confirmed By:Wenceslao Turner
[2022-10-03] MEDS ORDERED: CARBOHYDRATES FOR HYPOGLYCEMIA PO PRN (13:59)
[2022-10-03] MEDS ORDERED: ACETAMINOPHEN 325 MG TAB PO PRN (13:59)
[2022-10-03] MEDS ORDERED: GLUCOSE 10 TAB/TUBE PO PRN (13:59)
[2022-10-03] MEDS ORDERED: DEXTROSE 50% 50 ML SYRINGE IV PRN (13:59)
[2022-10-03] MEDS ORDERED: ONDANSETRON INJ 2 MG/ML 2 ML VIAL IV PRN (13:59)
[2022-10-03] MEDS ORDERED: GLUCOSE 40% GEL 15 GM TUBE PO PRN (13:59)
[2022-10-03] MEDS ORDERED: GLUCAGON FOR INJ 1 MG VIAL SQ PRN (13:59)
[2022-10-03] MEDS: INSULIN ASPART PER UNIT CHARGE SC SCH ×3 (15:40→20:29)
[2022-10-03] MEDS: HEPARIN SOD 5,000 UNIT/0.5 ML VIAL SQ SCH (21:01)
[2022-10-03] MEDS: RANOLAZINE 500 MG ER TAB PO SCH (21:02)
[2022-10-03] MEDS: AMIODARONE 200 MG TAB PO SCH (21:02)
[2022-10-03] MEDS ORDERED: hydrALAZINE HCL 20 MG/ML VIAL IV ONE (23:33)
[2022-10-04] MEDS: SODIUM CHLORIDE 0.9% 1000ML 1,000 ML IV SCH ×3 (04:56→14:20)
[2022-10-04 07:16] LABS: Hematocrit (blood only) 35.1 % (42.0-52.0); Hemoglobin 12.5 g/dl (14.0-18.0); Mean Corpuscular Hemoglobin 33.4 pg (25.0-34.0); Mean Corpuscular Hgb Conc 35.6 g/dL (32.0-36.0); Mean Corpuscular Volume 93.9 fL (80.0-100.0); Mean Platelet Volume 9.2 fL (9.4-12.4); Platelet Count 144 K/uL (130-400); RDW Coefficient of Variation 12.4 % (11.5-14.5); RDW Standard Deviation 42.7 fL (36.4-46.3); Red Blood Count 3.74 M/uL (4.70-6.10); White Blood Count 7.14 K/ul (4.8-10.8)
[2022-10-04 07:23] LABS: BUN Creatinine Ratio 26.1 (10-20); Calcium 9.3 mg/dl (8.6-10.3); Creatinine Clr Calc Pharmacy 35.9 ml/min; Est GFR (African American) 51.5 ml/min; Est GFR (Non-African American) 44.4 ml/min; Magnesium 1.7 mg/dl (1.7-2.4); Potassium 4.3 mmol/L (3.5-5.1)
[2022-10-04] MEDS: INSULIN ASPART PER UNIT CHARGE SC SCH ×4 (09:13→20:40)
[2022-10-04] MEDS: AMIODARONE 200 MG TAB PO SCH ×2 (09:14→20:53)
[2022-10-04] MEDS: ISOSORBIDE MONO EXTENDED REL 60 MG TABCR PO SCH (09:14)
[2022-10-04] MEDS: ROSUVASTATIN CALCIUM 20 MG TAB PO SCH (09:14)
[2022-10-04] MEDS: RANOLAZINE 500 MG ER TAB PO SCH ×2 (09:14→20:53)
[2022-10-04] MEDS: LANTUS PER UNIT CHARGE SC SCH (09:15)
[2022-10-04] MEDS: CLOPIDOGREL BISULFATE 75 MG TAB PO SCH (09:15)
[2022-10-04] MEDS: ASPIRIN 81 MG ECTAB PO SCH (09:15)
[2022-10-04] MEDS: POLYETHYLENE (MIRALAX) 17 GM PACK PO SCH (10:24)
[2022-10-04] MEDS: HEPARIN SOD 5,000 UNIT/0.5 ML VIAL SQ SCH ×2 (10:24→20:53)
--- NOTE | 2022-10-04 15:27 | Electrocardiogram Report ---
Test Reason : Blood Pressure : / mmHG Vent. Rate : 060 BPM Atrial Rate : 060 BPM P-R Int : 218 ms QRS Dur : 168 ms QT Int : 510 ms P-R-T Axes : 051 034 067 degrees QTc Int : 510 ms Poor data quality, interpretation may be adversely affected Sinus rhythm with sinus arrhythmia with 1st degree A-V block Right bundle branch block Abnormal ECG When compared with ECG of 03-OCT-2022 08:25, T wave inversion less evident in Anterior leads Confirmed by Cal Turner ([id number]) on 10/04/2022 3:26:46 PM Referred By: REFERRED SELF Confirmed By:Wenceslao Turner
--- NOTE | 2022-10-04 16:13 | Hospitalist Progress Note ---
Date of Service October 04, 2022 Assessment & Plan (1) Hypomagnesemia: (2) Acute hyponatremia: Plan: per admitting service notes with addendum: -Admit to med tele -Electrolyte abnormalities, Replace, trend with BMP -Patient reports vomiting last evening, likely could cause electrolyte imbalance, question acute gastritis? No further abdominal complaints or episodes of nausea/vomiting/diarrhea, monitor -PT/OT consults -Fall precautions 10/04 Na improved to 130 Mg 1.7 GI symptoms resolved continue gentle IV fluids and monitor electrolytes (3) KIKI (acute kidney injury): Plan: - Losartan was held at discharge on 09/27, hold amlodipine - crea improved to 1.4 (4) CAD (coronary artery disease): (5) HTN (hypertension): (6) Dyslipidemia: Plan: -Recent diagnosis of A-fib with RVR and was started on amiodarone during his last hospitalization, continue -Was taken off of losartan and metoprolol at that time, may hold amlodipine with slight KIKI -May continue isosorbide mononitrate, rosuvastatin -EKG reviewed and he is in NSR 10/04 BP ok off Amlodipine monitor (7) Diabetes mellitus: Plan: -Hold metformin -May continue Lantus 25 units QAM -ISS with Accu-Cheks ACHS -Last A1c = 9.4 on 07/10/22 DVT PPx: - teds, scds, heparin subq CODE: DNR/DNI Dispo: PT/OT gennaro lives at home with Admission and Anticipated Discharge Date Admission Date: October 03, 2022 Subjective ff up for vomiting, dehydration, etc seen resting in bed, comfortable sitting up in good spirits having lunch states he feels better overall no abdominal pain, nausea/vomiting, problems with BM no chest pain, dyspnea, palpitations, dizziness no other new symptoms Review of Systems Review of Systems: all noted and negative except for above Physical Exam Physical Exam: General- oriented x 3, not in distress, speaks in sentences with no effort or accessory muscle use Eyes- anicteric Neck- no JVD Lungs- clear BS bilaterally, no rales/wheezes Heart- normal rate, regular rhythm; no murmurs Abdomen- normal bowel sounds, nondistended, soft,no tenderness Extremities- no pretibial edema, no calf tenderness Neuro- alert, oriented x 3; no gross focal neurologic deficits Skin- warm & dry Results & Data Results & Data Vital Signs (Past 12 Hours) Vital Signs Temp Pulse Pulse Resp BP BP Pulse Ox 10/04/22 14:23 36.8 C 70 20 126/66 95 10/04/22 12:45 10/04/22 11:43 61 10/04/22 11:19 36.3 C L 65 20 133/69 97 10/04/22 07:41 36.3 C L 63 20 142/82 H 96 O2 Del Method 10/04/22 14:23 Room Air 10/04/22 12:45 Room Air 10/04/22 11:43 10/04/22 11:19 Room Air 10/04/22 07:41 Room Air all noted and reviewed including below
[2022-10-05] MEDS: SODIUM CHLORIDE 0.9% 1000ML 1,000 ML IV SCH (06:07)
[2022-10-05 07:36] LABS: Basophils # (auto) 0.02 K/uL (0-0.2); Basophils % (auto) 0.3 %; Eosinophils # (auto) 0.02 K/uL (0-0.50); Eosinophils % (auto) 0.3 %; Hematocrit (blood only) 35.4 % (42.0-52.0); Hemoglobin 12.4 g/dl (14.0-18.0); Immature Granulocytes # (auto) 0.08 K/uL (0.01-0.20); Immature Granulocytes % (auto) 1.2 %; Lymphocytes # (auto) 1.24 K/uL (1.2-3.4); Lymphocytes % (auto) 19.3 %; Mean Corpuscular Hemoglobin 33.3 pg (25.0-34.0); Mean Corpuscular Volume 95.2 fL (80.0-100.0); Mean Platelet Volume 9.3 fL (9.4-12.4); Monocytes # (auto) 0.73 K/uL (0.11-0.59); Monocytes % (auto) 11.4 %; Neutrophils # (auto) 4.33 K/uL (1.40-6.50); Neutrophils % (auto) 67.5 %; Platelet Count 133 K/uL (130-400); RDW Coefficient of Variation 12.7 % (11.5-14.5); Red Blood Count 3.72 M/uL (4.70-6.10); White Blood Count 6.42 K/ul (4.8-10.8)
[2022-10-05 07:53] LABS: BUN Creatinine Ratio 22.2 (10-20); Calcium 9.2 mg/dl (8.6-10.3); Creatinine Clr Calc Pharmacy 40.5 ml/min; Est GFR (African American) 59.5 ml/min; Est GFR (Non-African American) 51.3 ml/min; Magnesium 1.8 mg/dl (1.7-2.4); Potassium 4.4 mmol/L (3.5-5.1)
[2022-10-05] MEDS: ASPIRIN 81 MG ECTAB PO SCH (09:41)
[2022-10-05] MEDS: AMIODARONE 200 MG TAB PO SCH ×2 (09:42→20:46)
[2022-10-05] MEDS: HEPARIN SOD 5,000 UNIT/0.5 ML VIAL SQ SCH ×2 (09:42→20:46)
[2022-10-05] MEDS: RANOLAZINE 500 MG ER TAB PO SCH ×2 (09:42→20:46)
[2022-10-05] MEDS: ISOSORBIDE MONO EXTENDED REL 60 MG TABCR PO SCH (09:42)
[2022-10-05] MEDS: CLOPIDOGREL BISULFATE 75 MG TAB PO SCH (09:42)
[2022-10-05] MEDS: ROSUVASTATIN CALCIUM 20 MG TAB PO SCH (09:42)
[2022-10-05] MEDS: POLYETHYLENE (MIRALAX) 17 GM PACK PO SCH (09:43)
[2022-10-05] MEDS: INSULIN ASPART PER UNIT CHARGE SC SCH ×4 (09:52→20:45)
[2022-10-05] MEDS: LANTUS PER UNIT CHARGE SC SCH (09:53)
--- NOTE | 2022-10-05 16:10 | Hospitalist Progress Note ---
Date of Service October 05, 2022 Assessment & Plan (1) Hypomagnesemia: (2) Acute hyponatremia: Plan: per admitting service notes with addendum: -Admit to med tele -Electrolyte abnormalities, Replace, trend with BMP -Patient reports vomiting last evening, likely could cause electrolyte imbalance, question acute gastritis? No further abdominal complaints or episodes of nausea/vomiting/diarrhea, monitor -PT/OT consults -Fall precautions 5/120 given IV NSS Na improved to 135 GI symptoms resolved d/c fluids (3) KIKI (acute kidney injury): Plan: - Losartan was held at discharge on 09/27, hold amlodipine - crea improved to 1.2 (4) CAD (coronary artery disease): (5) HTN (hypertension): (6) Dyslipidemia: Plan: -Recent diagnosis of A-fib with RVR and was started on amiodarone during his last hospitalization, continue -Was taken off of losartan and metoprolol at that time, may hold amlodipine with slight KIKI -May continue isosorbide mononitrate, rosuvastatin -EKG reviewed and he is in NSR 10/05 BP ok off Amlodipine monitor (7) Diabetes mellitus: Plan: -Hold metformin -May continue Lantus 25 units QAM -ISS with Accu-Cheks ACHS -Last A1c = 9.4 on 07/10/22 DVT PPx: - teds, scds, heparin subq CODE: DNR/DNI Dispo: PT/OT eval lives at home with will need to transition to Acute Rehab/SNF plan of care discussed with patient in detail and at length all questions answered they are understanding, agreeable, comfortable with the plan of care Admission and Anticipated Discharge Date Admission Date: October 03, 2022 Subjective ff up for vomiting, dehydration, etc seen resting in chair, in good spirits, alert states he feels better overall no recurrence of nausea, vomiting no abdominal pain no other symptoms Review of Systems Review of Systems: all noted and negative except for above Physical Exam Physical Exam: General- oriented x 3, not in distress, speaks in sentences with no effort or accessory muscle use Eyes- anicteric Neck- no JVD Lungs- clear breath sounds bilaterally Heart- normal rate, regular rhythm; no murmurs Abdomen- normal bowel sounds, nondistended, soft, nontender Extremities- no pretibial edema, no calf tenderness Neuro- alert, oriented x 3; no gross focal neurologic deficits Skin- warm & dry Results & Data Results & Data Vital Signs (Past 12 Hours) Vital Signs Temp Pulse Pulse Resp BP Pulse Ox O2 Del Method 10/05/22 15:35 67 10/05/22 15:04 36.5 C 75 20 136/67 95 Room Air 10/05/22 11:22 36.7 C 68 20 104/65 97 Room Air 10/05/22 07:37 36.7 C 67 20 147/79 H 97 Room Air 10/05/22 07:38 70 all noted and reviewed including below
[2022-10-06 07:59] LABS: BUN Creatinine Ratio 20.6 (10-20); Calcium 9.2 mg/dl (8.6-10.3); Creatinine Clr Calc Pharmacy 40.5 ml/min; Est GFR (African American) 59.5 ml/min; Est GFR (Non-African American) 51.3 ml/min; Magnesium 1.8 mg/dl (1.7-2.4); Potassium 4.5 mmol/L (3.5-5.1)
[2022-10-06] MEDS: RANOLAZINE 500 MG ER TAB PO SCH ×2 (08:09→21:13)
[2022-10-06] MEDS: ISOSORBIDE MONO EXTENDED REL 60 MG TABCR PO SCH (08:09)
[2022-10-06] MEDS: ROSUVASTATIN CALCIUM 20 MG TAB PO SCH (08:09)
[2022-10-06] MEDS: CLOPIDOGREL BISULFATE 75 MG TAB PO SCH (08:10)
[2022-10-06] MEDS: HEPARIN SOD 5,000 UNIT/0.5 ML VIAL SQ SCH ×2 (08:10→21:13)
[2022-10-06] MEDS: AMIODARONE 200 MG TAB PO SCH (08:10)
[2022-10-06] MEDS: POLYETHYLENE (MIRALAX) 17 GM PACK PO SCH (08:10)
[2022-10-06] MEDS: ASPIRIN 81 MG ECTAB PO SCH (08:10)
[2022-10-06] MEDS: INSULIN ASPART PER UNIT CHARGE SC SCH ×4 (08:20→21:03)
[2022-10-06] MEDS: LANTUS PER UNIT CHARGE SC SCH (08:21)
--- NOTE | 2022-10-06 16:42 | Hospitalist Progress Note ---
Date of Service October 06, 2022 Assessment & Plan (1) Hypomagnesemia: (2) Acute hyponatremia: Plan: per admitting service notes with addendum: -Admit to med tele -Electrolyte abnormalities, Replace, trend with BMP -Patient reports vomiting last evening, likely could cause electrolyte imbalance, question acute gastritis? No further abdominal complaints or episodes of nausea/vomiting/diarrhea, monitor -PT/OT consults -Fall precautions 10/06 given IV NSS Na improved to 135 GI symptoms resolved d/c fluids Na 133 today (3) KIKI (acute kidney injury): Plan: - Losartan was held at discharge on 09/27, hold amlodipine - crea improved to 1.2 (4) CAD (coronary artery disease): (5) HTN (hypertension): (6) Dyslipidemia: Plan: -Recent diagnosis of A-fib with RVR and was started on amiodarone during his last hospitalization, continue -Was taken off of losartan and metoprolol at that time, may hold amlodipine with slight KIKI -May continue isosorbide mononitrate, rosuvastatin -EKG reviewed and he is in NSR 10/06 BP ok off Amlodipine monitor (7) Diabetes mellitus: Plan: -Hold metformin -May continue Lantus 25 units QAM -ISS with Accu-Cheks ACHS -Last A1c = 9.4 on 07/10/22 DVT PPx: - teds, scds, heparin subq CODE: DNR/DNI Dispo: PT/OT eval lives at home with will need to transition to Acute Rehab/SNF Admission and Anticipated Discharge Date Admission Date: October 03, 2022 Subjective ff up for vomiting, dehydration, etc seen resting in chair comfortable, in good spirits states he feels fine overall denies abdominal pain, nausea tolerating diet well no chest pain, dyspnea, palpitations, dizziness no other new symptoms Review of Systems Review of Systems: all noted and negative except for above Physical Exam Physical Exam: General- oriented x 3, not in distress, speaks in sentences with no effort or accessory muscle use Eyes- anicteric Neck- no JVD Lungs- clear breath sounds bilaterally, no rales/wheezes Heart- normal rate, regular rhythm; no murmurs Abdomen- normal bowel sounds, nondistended, soft, nontender Extremities- no pretibial edema, no calf tenderness Neuro- alert, oriented x 3; no gross focal neurologic deficits Skin- warm & dry Results & Data Results & Data Vital Signs (Past 12 Hours) Vital Signs Temp Pulse Pulse Resp BP BP Pulse Ox 10/06/22 16:05 65 10/06/22 15:01 36.6 C 72 20 124/67 97 10/06/22 11:28 36.7 C 67 18 102/57 L 97 10/06/22 07:45 36.4 C L 68 18 178/76 H 98 10/06/22 07:01 72 O2 Del Method 10/06/22 16:05 10/06/22 15:01 Room Air 10/06/22 11:28 Room Air 10/06/22 07:45 Room Air 10/06/22 07:01 all noted and reviewed including below
[2022-10-07 07:36] LABS: Calcium 9.5 mg/dl (8.6-10.3); Potassium 4.7 mmol/L (3.5-5.1)
[2022-10-07 07:41] LABS: BUN Creatinine Ratio 22.4 (10-20); Creatinine Clr Calc Pharmacy 38.1 ml/min; Est GFR (African American) 55.2 ml/min; Est GFR (Non-African American) 47.6 ml/min
[2022-10-07] MEDS: CLOPIDOGREL BISULFATE 75 MG TAB PO SCH (08:36)
[2022-10-07] MEDS: ASPIRIN 81 MG ECTAB PO SCH (08:36)
[2022-10-07] MEDS: RANOLAZINE 500 MG ER TAB PO SCH ×2 (08:36→20:12)
[2022-10-07] MEDS: HEPARIN SOD 5,000 UNIT/0.5 ML VIAL SQ SCH ×2 (08:36→20:12)
[2022-10-07] MEDS: ROSUVASTATIN CALCIUM 20 MG TAB PO SCH (08:37)
[2022-10-07] MEDS: AMIODARONE 200 MG TAB PO SCH (08:37)
[2022-10-07] MEDS: ISOSORBIDE MONO EXTENDED REL 60 MG TABCR PO SCH (08:37)
[2022-10-07] MEDS: POLYETHYLENE (MIRALAX) 17 GM PACK PO SCH (08:37)
[2022-10-07] MEDS: INSULIN ASPART PER UNIT CHARGE SC SCH ×4 (08:39→21:23)
[2022-10-07] MEDS: LANTUS PER UNIT CHARGE SC SCH (08:40)
--- NOTE | 2022-10-07 13:36 | Hospitalist Progress Note ---
Date of Service October 07, 2022 Assessment & Plan (1) Hypomagnesemia: (2) Acute hyponatremia: (3) KIKI (acute kidney injury): (4) CAD (coronary artery disease): (5) HTN (hypertension): (6) Dyslipidemia: (7) Diabetes mellitus: Plan (1) Hypomagnesemia: (2) Acute hyponatremia: Plan: per admitting service notes with addendum: -Admit to med tele -Electrolyte abnormalities, Replace, trend with BMP -Patient reports vomiting last evening, likely could cause electrolyte imbalance, question acute gastritis? No further abdominal complaints or episodes of nausea/vomiting/diarrhea, monitor -PT/OT consults -Fall precautions 10/07 given IV NSS Na improved to 135 GI symptoms resolved d/c fluids Na 133 today (3) KIKI (acute kidney injury): Plan: - Losartan was held at discharge on 09/27, hold amlodipine - crea improved to 1.2 (4) CAD (coronary artery disease): (5) HTN (hypertension): (6) Dyslipidemia: Plan: -Recent diagnosis of A-fib with RVR and was started on amiodarone during his last hospitalization, continue -Was taken off of losartan and metoprolol at that time, may hold amlodipine with slight KIKI -May continue isosorbide mononitrate, rosuvastatin -EKG reviewed and he is in NSR 10/07 BP ok off Amlodipine monitor (7) Diabetes mellitus: Plan: -Hold metformin -May continue Lantus 25 units QAM -ISS with Accu-Cheks ACHS -Last A1c = 9.4 on 07/10/22 DVT PPx: - teds, scds, heparin subq CODE: DNR/DNI Dispo: PT/OT gennaro lives at home with will need to transition to Acute Rehab/SNF Admission and Anticipated Discharge Date Admission Date: October 03, 2022 Subjective ff up for vomiting, etc seen resting in chair, in good spirits states he feels fine overall no GI symptoms no chest pain, dyspnea, palpitations, dizziness still on the weak side no other symptoms Review of Systems Review of Systems: all noted and negative except for above Physical Exam Physical Exam: General- oriented x 3, not in distress, speaks in sentences with no effort or accessory muscle use Eyes- anicteric Neck- no JVD Lungs- clear breath sounds bilaterally, no rales/wheezes Heart- normal rate, regular rhythm; no murmurs Abdomen- normal bowel sounds, nondistended, soft, nontender Extremities- no pretibial edema, no calf tenderness Neuro- alert, oriented x 3; no gross focal neurologic deficits Skin- warm & dry Results & Data Results & Data Vital Signs (Past 12 Hours) Vital Signs Temp Pulse Pulse Pulse Resp BP BP 10/07/22 12:14 36.8 C 67 18 113/63 10/07/22 08:47 10/07/22 08:00 36.8 C 64 18 160/80 H 10/07/22 07:00 66 10/07/22 04:12 37 C 62 16 141/66 H Pulse Ox O2 Del Method 10/07/22 12:14 97 Room Air 10/07/22 08:47 Room Air 10/07/22 08:00 96 Room Air 10/07/22 07:00 10/07/22 04:12 97 Room Air all noted and reviewed including below
[2022-10-08 07:31] LABS: BUN Creatinine Ratio 24.5 (10-20); Calcium 9.4 mg/dl (8.6-10.3); Creatinine Clr Calc Pharmacy 33.7 ml/min; Est GFR (African American) 46.3 ml/min; Est GFR (Non-African American) 39.9 ml/min; Potassium 4.6 mmol/L (3.5-5.1)
[2022-10-08] MEDS: AMIODARONE 200 MG TAB PO SCH (08:29)
[2022-10-08] MEDS: POLYETHYLENE (MIRALAX) 17 GM PACK PO SCH (08:29)
[2022-10-08] MEDS: HEPARIN SOD 5,000 UNIT/0.5 ML VIAL SQ SCH (08:30)
[2022-10-08] MEDS: RANOLAZINE 500 MG ER TAB PO SCH (08:30)
[2022-10-08] MEDS: ROSUVASTATIN CALCIUM 20 MG TAB PO SCH (08:30)
[2022-10-08] MEDS: ISOSORBIDE MONO EXTENDED REL 60 MG TABCR PO SCH (08:30)
[2022-10-08] MEDS: ASPIRIN 81 MG ECTAB PO SCH (08:30)
[2022-10-08] MEDS: CLOPIDOGREL BISULFATE 75 MG TAB PO SCH (08:30)
[2022-10-08] MEDS: INSULIN ASPART PER UNIT CHARGE SC SCH ×2 (08:31→12:07)
[2022-10-08] MEDS: LANTUS PER UNIT CHARGE SC SCH (08:31)
--- NOTE | 2022-10-08 12:04 | Hospitalist Progress Note ---
Date of Service October 08, 2022 Assessment & Plan (1) Hypomagnesemia: (2) Acute hyponatremia: (3) KIKI (acute kidney injury): (4) CAD (coronary artery disease): (5) HTN (hypertension): (6) Dyslipidemia: (7) Diabetes mellitus: Plan (1) Hypomagnesemia: (2) Acute hyponatremia: Plan: per admitting service notes with addendum: given IV NSS Na improved to 133-135 GI symptoms resolved encouraged to continue adequate hydration repeat BMP in 5 days (3) KIKI (acute kidney injury): Plan: - given IV fluids - crea improved from 1.7 to 1.3 - repeat BMP in 5 days, monitor closely (4) CAD (coronary artery disease): (5) HTN (hypertension): (6) Dyslipidemia: Plan: -Recent diagnosis of A-fib with RVR and was started on amiodarone during his last hospitalization, continue 10/08 BP ok off Amlodipine monitor (7) Diabetes mellitus: Plan: -Last A1c = 9.4 on 07/10/22 - continue Metformin CODE: DNR/DNI Dispo: transition to Acute Rehab/SNF Admission and Anticipated Discharge Date Admission Date: October 03, 2022 Subjective ff up for vomiting, etc seen resting in bed, comfortable states he feels fine overall in good spirits no vomiting, abdominal pain no chest pain, dyspnea, palpitations, dizziness no other symptoms states he is ready for dc today Review of Systems Review of Systems: all noted and negative except for above Physical Exam Physical Exam: General- oriented x 3, not in distress, speaks in sentences with no effort or accessory muscle use Eyes- anicteric Neck- no JVD Lungs- clear breath sounds bilaterally, no rales/wheezes Heart- normal rate, regular rhythm; no murmurs Abdomen- normal bowel sounds, nondistended, soft, nontender Extremities- no pretibial edema, no calf tenderness Neuro- alert, oriented x 3; no gross focal neurologic deficits Skin- warm & dry Results & Data Results & Data Vital Signs (Past 12 Hours) Vital Signs Temp Pulse Pulse Resp BP BP Pulse Ox 10/08/22 11:31 36.5 C 67 18 113/68 98 10/08/22 07:39 36.5 C 58 L 16 124/68 97 10/08/22 07:00 56 L 10/08/22 04:27 36.5 C 60 18 137/60 95 O2 Del Method 10/08/22 11:31 Room Air 10/08/22 07:39 Room Air 10/08/22 07:00 10/08/22 04:27 Room Air all noted and reviewed including below
--- NOTE | 2022-10-08 12:12 | Discharge Summary ---
Discharge Summary Date of Service October 08, 2022 Notes For Next Care Provider Please repeat basic metabolic profile in 5 days. Medication Changes From Visit Amlodipine discontinued Admission HPI Per Admitting Provider This is an 87 yo M with PMhx of CAD status post CABG/stent, PVD, hypertension, valvular heart disease (mild /TR ), DM 2 insulin requiring, CRI (baseline creatinine 1.5 ), chronic anemia (baseline hemoglobin 12 ), skin cancer as per records, past tobacco abuse. Patient was recently admitted here from 09/23 to 09/27 and was found to be in new onset A-fib with RVR, falls, weakness, symptomatic bradycardia, pneumonia, hyponatremia and KIKI. He was treated with an IV antibiotic, and finished a course with 2 days of doxycycline upon dischar ge. He was started on oral amiodarone and converted to normal sinus rhythm, during his hospitalization he was also on a heparin drip. He was not recommended to be on anticoagulation after discharge due to history of frequent falls. His hyponatremia improved, losartan was held at time of discharge. His creatinine also trended down from 1.85-1.39 on discharge. His falls were evaluated by PT and OT and was given a prescription for a rolling walker at discharge which she has been using at home. Today the patient returns today due to increased falls, weakness, vomiting x1 which all began yesterday after eating supper. He states that he had a fairly normal day, and then began to feel weak and had some increased shakiness with walking after supper. He then proceeded to have a large episode of vomiting, no blood, which consisted of his evening meal. Throughout the night whenever he needed to routinely get up and use the restroom his walked with him to ensure that he would not fall. He had used his walker last evening, however prior to that he did not need it since being discharged last week. Today he has no abdominal complaints, no diarrhea, no nausea or vomiting today. He feels better after having fluids given in the ER. Patient took all of his morning medications. In the ER he is found to have low magnesium of 1.6, hyponatremia with sodium 129, and creatinine is slightly elevated again at 1.72. He had seen his PCP for posthospital follow-up earlier this week and was scheduled for outpatient labs tomorrow. Admission Exam Per Admitting Provider General: awake, alert, no apparent distress, + thin Head: Normocephalic, atraumatic ENT: PERRL, EOMI, no pharyngeal exudate, mucous membranes moist Chest: Clear to auscultation, on room air, no adventitious breath sounds Cardiac: Regular rate and rhythm, + BRIGID, grade II/, no JVD, normal peripheral pulses, good capillary refill Abdominal: NABS x 4 quadrants, soft, nondistended, nontender to palpation, no rebound or guarding Extremities: Normal inspection, no peripheral edema or erythema, calfs nontender to palpation Psych: Normal mood and affect Neuro: AAO x 3, strength intact bilaterally and rated 5/5, no motor deficits, speech is clear, no peripheral sensory deficits, gait was not assessed Principal Dx & Hospital Course #1 = Principal Diagnosis (1) Hypomagnesemia: (2) Acute hyponatremia: (3) KIKI (acute kidney injury): (4) CAD (coronary artery disease): (5) HTN (hypertension): (6) Dyslipidemia: (7) Diabetes mellitus: Plan (1) Hypomagnesemia: (2) Acute hyponatremia: Plan: secondary to Vomiting given IV NSS Na improved to 133-135 GI symptoms resolved encouraged to continue adequate hydration repeat BMP in 5 days (3) KIKI (acute kidney injury): Plan: - given IV fluids - crea improved from 1.7 to 1.3 - repeat BMP in 5 days, monitor closely (4) CAD (coronary artery disease): (5) HTN (hypertension): (6) Dyslipidemia: Plan: -Recent diagnosis of A-fib with RVR and was started on amiodarone during his last hospitalization, continue 10/08 BP ok off Amlodipine monitor (7) Diabetes mellitus: Plan: -Last A1c = 9.4 on 07/10/22 - continue Metformin CODE: DNR/DNI Dispo: transition to Acute Rehab/SNF Discharge Exam General- oriented x 3, not in distress, speaks in sentences with no effort or accessory muscle use Eyes- anicteric Neck- no JVD Lungs- clear breath sounds bilaterally, no rales/wheezes Heart- normal rate, regular rhythm; no murmurs Abdomen- normal bowel sounds, nondistended, soft, nontender Extremities- no pretibial edema, no calf tenderness Neuro- alert, oriented x 3; no gross focal neurologic deficits Skin- warm & dry Updated Medication List Medication Instructions Recorded Confirmed Type amlodipine 5 mg tablet 5 mg PO DAILY 09/23/22 10/03/22 History aspirin 81 mg tablet,delayed 81 mg PO QAM 09/23/22 10/03/22 History release clopidogrel 75 mg tablet 75 mg PO DAILY 09/23/22 10/03/22 History insulin glargine 100 unit/mL (3 25 unit subcut QAM 09/23/22 10/03/22 History mL) subcutaneous pen (Lantus Solostar U-100 Insulin) isosorbide mononitrate 120 mg 120 mg PO QAM 09/23/22 10/03/22 History tablet,extended release 24 hr metformin 500 mg tablet,extended See Rx Instructions .Route .COMPLEX 09/23/22 10/03/22 History release 24 hr nitroglycerin 0.4 mg sublingual 0.4 mg sublingual .UD PRN Chest 09/23/22 10/03/22 History tablet Pain ranolazine 1,000 mg 1,000 mg PO BID 09/23/22 10/03/22 History tablet,extended release,12 hr rosuvastatin 20 mg tablet 20 mg PO QAM 09/23/22 10/03/22 History amiodarone 200 mg tablet See Taper PO BID 10/03/22 10/03/22 History amiodarone 200 mg tablet 200 mg PO DAILY 30 days #30 tabs 10/08/22 Rx Hospital Stay Data Consultations 10/03/22 09:52 ED Decision to Admit Stat Diagnostic Imagining Performed 10/03/22 08:30 CT head/brain wo con Stat FINDINGS: No acute intracranial hemorrhage, midline shift, intracranial mass, hydrocephalus, territorial ischemia or abnormal extra-axial collection. Involutional changes with chronic microvascular ischemic disease. Cerebrovascular calcifications. Punctate left lentiform nuclear calcification. The calvarium is intact. Prior bilateral lens repair. The paranasal sinuses, mastoid air cells, and middle ear cavities are clear. IMPRESSION: No acute intracranial abnormality. ACT 112: Negative or not required by law. Pending Results Patient Have Any Pending Studies at Discharge: Yes Discharge Instructions Given to Patient (Per Discharging Provider) Please refer to accompanying hospital discharge summary for further details. Total Time Total Time Spent Total Time Spent (In Minutes): > 30 MINUTES
== END 2022-10-08 13:45 | DRG 641 ==
LOC: ED 08:04 → INTOOBSV 10:15 → SUATTDRO 10:15 → EDINP 10:15 → 2N 13:31

== ENCOUNTER 2022-11-27 22:43 | Inpatient (IN) ==
[2022-11-28 00:04] LABS: Albumin Globulin Ratio 1.1 (0.9-2); Albumin Level 3.8 gm/dl (3.4-5.0); BUN Creatinine Ratio 26.6 (10-20); Bilirubin,Total 0.6 mg/dl (0.2-1.0); Calcium 9.7 mg/dl (8.6-10.3); Creatinine Clr Calc Pharmacy 31.4 ml/min; Est GFR (African American) 45.2 ml/min; Globulin 3.4 gm/dl (2.5-4.0); Magnesium 1.9 mg/dl (1.7-2.4); Potassium 4.4 mmol/L (3.5-5.1); Total Protein 7.2 gm/dl (6.0-8.3)
--- NOTE | 2022-11-28 00:07 | Emergency Department Note ---
Impression & Plan Weakness, Falls, Increased urinary frequency, Multiple skin tears, Cough ED Provider Note Provider: Leno Mendiola MD DATE OF SERVICE: 11/27/2022 CHIEF COMPLAINT: Weakness, slight to ground HISTORY OF PRESENT ILLNESS: Patient is a 87-year-old gentleman past medical history including CAD and CABG, hypertension, CKD, type 2 diabetes, melanoma presenting here today via ambulance from his home. Lives at home with his . Was hospitalized here several weeks ago. Home for the last about 3 weeks. The past week has had some decline with increasing weakness. Slid to the ground tonight. The other night slid to the ground against the outside of his house and scraped his left arm on the stone there. Some skin tears but denies significant pain of the shoulder elbow. Denies striking his head significantly. Lowered himself to the ground tonight. Denies significant neck chest abdominal or new low back or hip pain. Slight abrasion to the left knee but no significant pain reported here. Maybe a bit of a cough. Saw his doctor a day or 2 ago and had an x-ray that was questionable and is scheduled for an outpatient CT of the chest. Has had some intermittent nausea in the evening. PAST MEDICAL HISTORY: As noted above MEDICATIONS: Reviewed home medications SOCIAL HISTORY: Lives at home with PHYSICAL EXAM: GENERAL: alert and oriented in no acute distress on stretcher Head: normocephalic and atraumatic EYES: No injection, discharge or icterus. PERRL, EOMI. NECK: Trachea midline. ENT: Mucous membranes pink and moist. LUNGS: Airway patent. No retractions. Breath sounds clear with good air entry bilaterally. HEART: Regular rate and rhythm. No chest wall tenderness ABDOMEN: Soft and non-tender, without guarding or rebound. SKIN: Acyanotic, warm, dry, without rashes EXTREMITIES: Without swelling, tenderness or deformity except for slight 1 cm skin tear just distal to the left knee without bony tenderness as well as some bandaged skin tears over the left mid upper arm. No significant bony tenderness of the shoulder elbow here. Soft compartments of the arms or legs. NEUROLOGICAL: No focal deficits. No aphasia. No facial droop or slurred speech. Normal strength and tone in the extremities. Sensation to gross touch normal. EK bpm normal sinus rhythm. No PVC. No acute ST segment elevation with anterior T wave inversions with a QTc of 498, nonspecific intraventricular conduction delay patient with nonspecific weakness. CONTINUOUS CARDIAC MONITORING: was ordered and showed a heart rate of 60s bpm in normal sinus rhythm GCS 15. Patient's laboratory studies and imaging reviewed. Differential includes trauma, infection, dehydration, metabolic abnormality, hypo/hyperglycemia, electrolyte disturbance, anemia, hypoxia, cardiac sources, intracerebral event, toxicologic, neurologic, as well as other pathologies. IMPRESSION/MEDICAL DECISION MAKING: Does not sound like any significant fall today but has some skin tears to the left arm and knee. Doubt any significant fracture here as is not having significant bony tenderness. Has had chronic issues with falls recently and is in PT. Reviewed epic note and there is question of a possible finding on his chest x-ray. Given this complete a CT of his head as well as his chest. No sig nificant acute findings noted for pneumonia or intracranial bleed. Slight anemia but not severe. No leukocytosis. Slightly worsened creatinine 1.58 from baseline around 1.3. Continued hyponatremia in the 130s. No signs of troponin elevation. EKGs on review not that far off from September and multiple comparisons. No signs of blood in the urine question contamination versus UTI. Do not see history of microbiology growing positive urine study in the past. Does report urinary frequency. We will do ceftriaxone coverage for any UTI pending urine culture. Does not appear septic. Given his significant weakness and concerns for care at home will bring into the hospital. Discussed at length with the patient, his , and his son-in-law at bedside. Benign abdomen doubt acute intra-abdominal pathology. Afebrile and does not appear meningitic. No focal deficits concerning for acute CVA at this time. Skin tears do not appear infected at this time. DIAGNOSIS: Weakness, falls, urinary frequency, cough, skin tears DISPOSITION: Hospitalist will evaluate Patient was agreeable with this plan. Past Med/Surg History Social History Smoking Status: Former smoker Tobacco Type: Cigarettes Preferred Language: Occitan Feels Safe at Home: Yes Allergies Allergies Allergy/AdvReac Type Severity Reaction Status Date / Time No Known Allergies Allergy Verified 11/27/22 23:42 Home Meds Home Medications Medication Instructions Recorded Confirmed amiodarone 200 mg tablet 200 mg PO QAM 11/27/22 11/27/22 aspirin 81 mg tablet,delayed 81 mg PO DAILY 11/27/22 11/27/22 release clopidogrel 75 mg tablet 75 mg PO DAILY 11/27/22 11/27/22 insulin glargine 100 unit/mL (3 25 unit subcut QPM 11/27/22 11/27/22 mL) subcutaneous pen (Lantus Solostar U-100 Insulin) isosorbide mononitrate 120 mg 120 mg PO QAM 11/27/22 11/27/22 tablet,extended release 24 hr metformin 500 mg tablet,extended 1,500 mg PO QAM 11/27/22 11/27/22 release 24 hr ranolazine 1,000 mg 1,000 mg PO BID 11/27/22 11/27/22 tablet,extended release,12 hr rosuvastatin 20 mg tablet 20 mg PO DAILY 11/27/22 11/27/22 Results & Data (ED) Vital Signs Vital Signs - 24 hr 11/27/22 22:53 11/27/22 22:53 11/27/22 23:54 Temperature 36.8 C Temperature Source Oral Pulse Rate 72 68 90 Pulse Rate [Apical] Pulse Rhythm Regular Respiratory Rate 18 18 Respiratory Effort / Characteristics Respiratory Depth Respiratory Pattern Blood Pressure 140/75 Blood Pressure [Right Arm] Blood Pressure Mean 96 Blood Pressure Mean [Right Arm] Blood Pressure Position Semi-fowlers Blood Pressure Position [Right Arm] Pulse Oximetry 97 95 Oxygen Delivery Method Room Air Room Air Sepsis Recent Fever Within 48 Hours No Sepsis New/Unexplained Change in Mental Status N/A Sepsis Action Taken by Nursing No Action Required 11/28/22 01:15 Temperature Temperature Source Pulse Rate Pulse Rate [Apical] 64 Pulse Rhythm Respiratory Rate 18 Respiratory Effort / Characteristics Non-Labored Spontaneous Respiratory Depth Normal Respiratory Pattern Regular Blood Pressure Blood Pressure [Right Arm] 164/91 H Blood Pressure Mean Blood Pressure Mean [Right Arm] 115 Blood Pressure Position Blood Pressure Position [Right Arm] Semi-fowlers Pulse Oximetry 98 Oxygen Delivery Method Room Air Sepsis Recent Fever Within 48 Hours Sepsis New/Unexplained Change in Mental Status Sepsis Action Taken by Nursing Laboratory Data 11/27/22 23:07 11/27/22 23:07 Lab Results 11/27/22 11/27/22 11/27/22 Range/Units 23:07 23:07 23:07 WBC 8.87 (4.8-10.8) K/ul RBC 3.23 L (4.70-6.10) M/uL Hgb 10.5 L (14.0-18.0) g/dl Hct 30.2 L (42.0-52.0) % MCV 93.5 (80.0-100.0) fL MCH 32.5 (25.0-34.0) pg MCHC 34.8 (32.0-36.0) g/dL RDW Std Deviation 45.7 (36.4-46.3) fL RDW Coeff of Venancio 13.3 (11.5-14.5) % Plt Count 190 (130-400) K/uL MPV 9.5 (9.4-12.4) fL Immature Gran % (Auto) 0.5 % Neut % (Auto) 72.7 % Lymph % (Auto) 16.1 % Cotton % (Auto) 9.9 % Eos % (Auto) 0.5 % Baso % (Auto) 0.3 % Neut # (Auto) 6.45 (1.40-6.50) K/uL Lymph # (Auto) 1.43 (1.2-3.4) K/uL Cotton # (Auto) 0.88 H (0.11-0.59) K/uL Eos # (Auto) 0.04 (0-0.50) K/uL Baso # (Auto) 0.03 (0-0.2) K/uL Immature Gran # (Auto) 0.04 (0.01-0.20) K/uL PT 12.1 H (9.0-12.0) Seconds INR 1.1 (0.9-1.1) Sodium 131 L (136-145) mmol/L Potassium 4.4 (3.5-5.1) mmol/L Chloride 98 (98-107) mmol/L Carbon Dioxide 23 (21-32) mmol/L Anion Gap 10 (3-11) BUN 42 H (6-23) mg/dl Creatinine 1.58 H (0.6-1.4) mg/dl Est Cr Clr Drug Dosing 31.4 ml/min Est GFR ( Amer) 45.2 ml/min Est GFR (Non-Af Amer) 39.0 ml/min BUN/Creatinine Ratio 26.6 H (10-20) Glucose 107 H (70-99(Fasting)) mg/dl Osmolality (280-300) mOsm/kg Calcium 9.7 (8.6-10.3) mg/dl Magnesium 1.9 (1.7-2.4) mg/dl Total Bilirubin 0.6 (0.2-1.0) mg/dl AST 27 (13-39) U/L ALT 28 (7-52) U/L Alkaline Phosphatase 48 (34-104) U/L Total Creatine Kinase 117 (30-223) U/L Troponin I High Sens 11.4 (0-20) pg/ml Total Protein 7.2 (6.0-8.3) gm/dl Albumin 3.8 (3.4-5.0) gm/dl Globulin 3.4 (2.5-4.0) gm/dl Albumin/Globulin Ratio 1.1 (0.9-2) TSH (0.300-4.500) uIu/ml Free T4 (0.61-1.60) ng/dl Urine Color Urine Appearance (Clear) Urine pH (4.5-7.5) Ur Specific Stone[place] (1.000-1.030) Urine Protein (Negative) Urine Glucose (UA) (Negative) Urine Ketones (Negative) Urine Blood (Negative) Urine Nitrite (Negative) Urine Bilirubin (Negative) Urine Urobilinogen (Negative) Ur Leukocyte Esterase (Negative) Urine WBC (Auto) (0-5) /hpf Urine RBC (Auto) (0-4) /hpf U Hyaline Cast (Auto) (0-5) /lpf U Epithel Cells (Auto) (0-5) /lpf Urine Bacteria (Auto) (Negative) Ur Renal Epithelial Cell Urine Osmolality (500-800) mOsm/kg Adenovirus (PCR) (NotDetected) B. pertussis DNA (PCR) (NotDetected) B.parapertussis DNA PCR (NotDetected) C. pneumoniae DNA (PCR) (NotDetected) Coronavirus OC43 (PCR) (NotDetected) Coronavirus HKU1 (PCR) (NotDetected) Coronavirus 229E (PCR) (NotDetected) SARS-CoV-2 (PCR) (NotDetected) Coronavirus NL63 (PCR) (NotDetected) Human Metapneumovir PCR (NotDetected) Influenza Type A (PCR) (NotDetected) Influenza Type B (PCR) (NotDetected) M. pneumoniae (PCR) (NotDetected) Parainfluenza 1 (PCR) (NotDetected) Parainfluenza 2 (PCR) (NotDetected) Parainfluenza 3 (PCR) (NotDetected) Parainfluenza 4 (PCR) (NotDetected) RSV (PCR) (NotDetected) Entero/Rhino (PCR) (NotDetected) 11/27/22 11/27/22 11/27/22 Range/Units 23:07 23:07 23:07 WBC (4.8-10.8) K/ul RBC (4.70-6.10) M/uL Hgb (14.0-18.0) g/dl Hct (42.0-52.0) % MCV (80.0-100.0) fL MCH (25.0-34.0) pg MCHC (32.0-36.0) g/dL RDW Std Deviation (36.4-46.3) fL RDW Coeff of Venancio (11.5-14.5) % Plt Count (130-400) K/uL MPV (9.4-12.4) fL Immature Gran % (Auto) % Neut % (Auto) % Lymph % (Auto) % Cotton % (Auto) % Eos % (Auto) % Baso % (Auto) % Neut # (Auto) (1.40-6.50) K/uL Lymph # (Auto) (1.2-3.4) K/uL Cotton # (Auto) (0.11-0.59) K/uL Eos # (Auto) (0-0.50) K/uL Baso # (Auto) (0-0.2) K/uL Immature Gran # (Auto) (0.01-0.20) K/uL PT (9.0-12.0) Seconds INR (0.9-1.1) Sodium (136-145) mmol/L Potassium (3.5-5.1) mmol/L Chloride (98-107) mmol/L Carbon Dioxide (21-32) mmol/L Anion Gap (3-11) BUN (6-23) mg/dl Creatinine (0.6-1.4) mg/dl Est Cr Clr Drug Dosing ml/min Est GFR ( Amer) ml/min Est GFR (Non-Af Amer) ml/min BUN/Creatinine Ratio (10-20) Glucose (70-99(Fasting)) mg/dl Osmolality (280-300) mOsm/kg Calcium (8.6-10.3) mg/dl Magnesium (1.7-2.4) mg/dl Total Bilirubin (0.2-1.0) mg/dl AST (13-39) U/L ALT (7-52) U/L Alkaline Phosphatase (34-104) U/L Total Creatine Kinase (30-223) U/L Troponin I High Sens (0-20) pg/ml Total Protein (6.0-8.3) gm/dl Albumin (3.4-5.0) gm/dl Globulin (2.5-4.0) gm/dl Albumin/Globulin Ratio (0.9-2) TSH 7.084 H (0.300-4.500) uIu/ml Free T4 0.81 (0.61-1.60) ng/dl Urine Color Dark Yellow Urine Appearance Clear (Clear) Urine pH 5.0 (4.5-7.5) Ur Specific [place] 1.017 (1.000-1.030) Urine Protein 1+ H (Negative) Urine Glucose (UA) Negative (Negative) Urine Ketones Negative (Negative) Urine Blood Negative (Negative) Urine Nitrite Negative (Negative) Urine Bilirubin Negative (Negative) Urine Urobilinogen Negative (Negative) Ur Leukocyte Esterase 1+ H (Negative) Urine WBC (Auto) 10-30 H (0-5) /hpf Urine RBC (Auto) 0-4 (0-4) /hpf U Hyaline Cast (Auto) 10-30 H (0-5) /lpf U Epithel Cells (Auto) >30 H (0-5) /lpf Urine Bacteria (Auto) Negative (Negative) Ur Renal Epithelial Cell Not Reportable Urine Osmolality 521 (500-800) mOsm/kg Adenovirus (PCR) (NotDetected) B. pertussis DNA (PCR) (NotDetected) B.parapertussis DNA PCR (NotDetected) C. pneumoniae DNA (PCR) (NotDetected) Coronavirus OC43 (PCR) (NotDetected) Coronavirus HKU1 (PCR) (NotDetected) Coronavirus 229E (PCR) (NotDetected) SARS-CoV-2 (PCR) (NotDetected) Coronavirus NL63 (PCR) (NotDetected) Human Metapneumovir PCR (NotDetected) Influenza Type A (PCR) (NotDetected) Influenza Type B (PCR) (NotDetected) M. pneumoniae (PCR) (NotDetected) Parainfluenza 1 (PCR) (NotDetected) Parainfluenza 2 (PCR) (NotDetected) Parainfluenza 3 (PCR) (NotDetected) Parainfluenza 4 (PCR) (NotDetected) RSV (PCR) (NotDetected) Entero/Rhino (PCR) (NotDetected) 11/27/22 11/28/22 Range/Units Unknown Unknown WBC (4.8-10.8) K/ul RBC (4.70-6.10) M/uL Hgb (14.0-18.0) g/dl Hct (42.0-52.0) % MCV (80.0-100.0) fL MCH (25.0-34.0) pg MCHC (32.0-36.0) g/dL RDW Std Deviation (36.4-46.3) fL RDW Coeff of Venancio (11.5-14.5) % Plt Count (130-400) K/uL MPV (9.4-12.4) fL Immature Gran % (Auto) % Neut % (Auto) % Lymph % (Auto) % Cotton % (Auto) % Eos % (Auto) % Baso % (Auto) % Neut # (Auto) (1.40-6.50) K/uL Lymph # (Auto) (1.2-3.4) K/uL Cotton # (Auto) (0.11-0.59) K/uL Eos # (Auto) (0-0.50) K/uL Baso # (Auto) (0-0.2) K/uL Immature Gran # (Auto) (0.01-0.20) K/uL PT (9.0-12.0) Seconds INR (0.9-1.1) Sodium (136-145) mmol/L Potassium (3.5-5.1) mmol/L Chloride (98-107) mmol/L Carbon Dioxide (21-32) mmol/L Anion Gap (3-11) BUN (6-23) mg/dl Creatinine (0.6-1.4) mg/dl Est Cr Clr Drug Dosing ml/min Est GFR ( Amer) ml/min Est GFR (Non-Af Amer) ml/min BUN/Creatinine Ratio (10-20) Glucose (70-99(Fasting)) mg/dl Osmolality 287 (280-300) mOsm/kg Calcium (8.6-10.3) mg/dl Magnesium (1.7-2.4) mg/dl Total Bilirubin (0.2-1.0) mg/dl AST (13-39) U/L ALT (7-52) U/L Alkaline Phosphatase (34-104) U/L Total Creatine Kinase (30-223) U/L Troponin I High Sens (0-20) pg/ml Total Protein (6.0-8.3) gm/dl Albumin (3.4-5.0) gm/dl Globulin (2.5-4.0) gm/dl Albumin/Globulin Ratio (0.9-2) TSH (0.300-4.500) uIu/ml Free T4 (0.61-1.60) ng/dl Urine Color Urine Appearance (Clear) Urine pH (4.5-7.5) Ur Specific [place] (1.000-1.030) Urine Protein (Negative) Urine Glucose (UA) (Negative) Urine Ketones (Negative) Urine Blood (Negative) Urine Nitrite (Negative) Urine Bilirubin (Negative) Urine Urobilinogen (Negative) Ur Leukocyte Esterase (Negative) Urine WBC (Auto) (0-5) /hpf Urine RBC (Auto) (0-4) /hpf U Hyaline Cast (Auto) (0-5) /lpf U Epithel Cells (Auto) (0-5) /lpf Urine Bacteria (Auto) (Negative) Ur Renal Epithelial Cell Urine Osmolality (500-800) mOsm/kg Adenovirus (PCR) Not Detected (NotDetected) B. pertussis DNA (PCR) Not Detected (NotDetected) B.parapertussis DNA PCR Not Detected (NotDetected) C. pneumoniae DNA (PCR) Not Detected (NotDetected) Coronavirus OC43 (PCR) Not Detected (NotDetected) Coronavirus HKU1 (PCR) Not Detected (NotDetected) Coronavirus 229E (PCR) Not Detected (NotDetected) SARS-CoV-2 (PCR) Not Detected (NotDetected) Coronavirus NL63 (PCR) Not Detected (NotDetected) Human Metapneumovir PCR Not Detected (NotDetected) Influenza Type A (PCR) Not Detected (NotDetected) Influenza Type B (PCR) Not Detected (NotDetected) M. pneumoniae (PCR) Not Detected (NotDetected) Parainfluenza 1 (PCR) Not Detected (NotDetected) Parainfluenza 2 (PCR) Not Detected (NotDetected) Parainfluenza 3 (PCR) Not Detected (NotDetected) Parainfluenza 4 (PCR) Not Detected (NotDetected) RSV (PCR) Not Detected (NotDetected) Entero/Rhino (PCR) Not Detected (NotDetected) Administered Medications Discontinued Medications Diazepam (Diazepam 5 Mg/Ml Inj 10ml Vial) 2.5 mg IV NOW STA Stop: 11/28/22 02:44 Last Admin: 11/28/22 03:02 Dose: Not Given Documented By: YECENIA Sodium Chloride (Nss 1000ml) 500 mls @ 999 mls/hr IV .Q31M ONE Stop: 11/28/22 01:33 Last Infusion: 11/28/22 02:25 Dose: 0 mls/hr Documented By: Admin: 11/28/22 01:40 Dose: 999 mls/hr Documented By: ANTONIO Ceftriaxone Sodium (Rocephin) 2,000 mg in 70 mls @ 140 mls/hr IV NOW STA Stop: 11/28/22 02:09 Last Infusion: 11/28/22 03:21 Dose: 0 mls/hr Documented By: Admin: 11/28/22 02:25 Dose: 140 mls/hr Documented By: ANTONIO Sodium Chloride (Nss 1000ml) 1,000 mls @ 999 mls/hr IV .Q1H1M ONE Stop: 11/28/22 03:43 Last Admin: 11/28/22 03:02 Dose: Not Given Documented By: YECENIA Metoclopramide HCl (Metoclopramide Hcl Inj 5 Mg/Ml 2 Ml Vial) 5 mg IV ONE ONE Stop: 11/28/22 02:44 Last Admin: 11/28/22 03:02 Dose: Not Given Documented By: JT Imaging Data Radiologist's Impression: Chest CT 11/27/22 23:41 Exam(s): CT CHEST Without Contrast EXAM: CT Chest Without Intravenous Contrast CLINICAL HISTORY: Reason for exam: falls, cough, weak. TECHNIQUE: Axial computed tomography images of the chest without intravenous contrast. CTDI is 13.32 mGy and DLP is 503.54 mGy-cm. Automated exposure control was utilized for the study. A dose lowering technique was utilized adhering to the principles of ALARA. COMPARISON: No relevant prior studies available. FINDINGS: Lungs: There is bibasilar parenchymal atelectasis. Pleural space: Unremarkable. No pneumothorax. No significant effusion. Heart: Coronary vascular calcification. Moderate cardiomegaly. No significant pericardial effusion. Bones/joints: Status post sternotomy. Degenerative change of the thoracic spine. No acute fracture. No dislocation. Soft tissues: Unremarkable. Vasculature: There is diffuse atherosclerotic calcification of the aorta and its major branch vessels. Lymph nodes: Unremarkable. No enlarged lymph nodes. IMPRESSION: No acute findings in the chest. Electronically signed by: Delvin Jackson MD 11/28/22 00:[address] 11/27/22 23:41 Exam(s): CT HEAD Without Contrast EXAM: CT Head Without Intravenous Contrast CLINICAL HISTORY: Reason for exam: fall. TECHNIQUE: Axial computed tomography images of the head/brain without intravenous contrast. CTDI is 36.05 mGy and DLP is 624.41 mGy-cm. Automated exposure control was utilized for the study. A dose lowering technique was utilized adhering to the principles of ALARA. COMPARISON: No relevant prior studies available. FINDINGS: Brain: Areas of decreased attenuation in the deep cerebral white matter are consistent with small vessel ischemic/degenerative changes. The cerebral and cerebellar sulci are prominent consistent with brain atrophy. Calcification in the left basal ganglia. No hemorrhage. Ventricles: Unremarkable. No ventriculomegaly. Bones/joints: Unremarkable. No acute fracture. Soft tissues: Unremarkable. Vasculature: Atherosclerotic disease. Sinuses: Unremarkable as visualized. No acute sinusitis. Mastoid air cells: Unremarkable as visualized. No mastoid effusion. IMPRESSION: 1. Small vessel ischemic/degenerative changes. 2. Cerebral and cerebellar atrophy. Electronically signed by: Delvin Jackson MD 11/28/22 00:22 AM Discharge Plan Visit Data Chief Complaint: Fall ED Provider: Leno Mendiola Discharge Problem: Weakness, Falls, Increased urinary frequency, Multiple skin tears, Cough Patient Disposition: Being Evaluated by Hospitalist Forms Stand Alone Forms: My [facility] Prescriptions Prescriptions: No Action amiodarone 200 mg tablet 200 mg PO QAM clopidogrel 75 mg tablet 75 mg PO DAILY aspirin 81 mg Tablet,Delayed Release (Dr/Ec) 81 mg PO DAILY isosorbide mononitrate 120 mg Tablet Extended Release 24 Hr 120 mg PO QAM metformin 500 mg tablet extended release 24 hr 1,500 mg PO QAM rosuvastatin 20 mg Tablet 20 mg PO DAILY insulin glargine [Lantus Solostar U-100 Insulin] 100 unit/mL (3 mL) insulin pen 25 unit SUBCUT QPM Rx Instructions: TAKES AT 1630 ranolazine 1,000 mg Tablet Extended Release 12 Hr 1,000 mg PO BID Referrals Referrals: Carola Arrington MD [Primary Care Provider] -
[2022-11-28 00:11] LABS: Troponin I High Sensitivity 11.4 pg/ml (0-20)
[2022-11-28 00:19] LABS: Thyroid Stimulating Hormone 7.084 uIu/ml (0.300-4.500)
[2022-11-28 00:22] LABS: Appearance Urine Clear (Clear); Bacteria Urine Automated Negative (Negative); Bilirubin Urine Negative (Negative); Blood Urine Negative (Negative); Color Urine Dark Yellow; Epithelial Cell Urine Auto >30 /lpf (0-5); Glucose Urine UA Negative (Negative); Ketones Urine Negative (Negative); Leukocyte Esterase Urine 1+ (Negative); Nitrite Urine Negative (Negative); Protein Urine 1+ (Negative); RBC Urine Automated 0-4 /hpf (0-4); Specific Gravity Urine 1.017 (1.000-1.030); Urobilinogen Urine Negative (Negative)
--- NOTE | 2022-11-28 00:22 | CT Scan Report ---
Exam(s): CT CHEST Without Contrast EXAM: CT Chest Without Intravenous Contrast CLINICAL HISTORY: Reason for exam: falls, cough, weak. TECHNIQUE: Axial computed tomography images of the chest without intravenous contrast. CTDI is 13.32 mGy and DLP is 503.54 mGy-cm. Automated exposure control was utilized for the study. A dose lowering technique was utilized adhering to the principles of ALARA. COMPARISON: No relevant prior studies available. FINDINGS: Lungs: There is bibasilar parenchymal atelectasis. Pleural space: Unremarkable. No pneumothorax. No significant effusion. Heart: Coronary vascular calcification. Moderate cardiomegaly. No significant pericardial effusion. Bones/joints: Status post sternotomy. Degenerative change of the thoracic spine. No acute fracture. No dislocation. Soft tissues: Unremarkable. Vasculature: There is diffuse atherosclerotic calcification of the aorta and its major branch vessels. Lymph nodes: Unremarkable. No enlarged lymph nodes. IMPRESSION: No acute findings in the chest. Electronically signed by: Delvin Jackson MD 11/28/22 00:22 AM
--- NOTE | 2022-11-28 00:23 | CT Scan Report ---
Exam(s): CT HEAD Without Contrast EXAM: CT Head Without Intravenous Contrast CLINICAL HISTORY: Reason for exam: fall. TECHNIQUE: Axial computed tomography images of the head/brain without intravenous contrast. CTDI is 36.05 mGy and DLP is 624.41 mGy-cm. Automated exposure control was utilized for the study. A dose lowering technique was utilized adhering to the principles of ALARA. COMPARISON: No relevant prior studies available. FINDINGS: Brain: Areas of decreased attenuation in the deep cerebral white matter are consistent with small vessel ischemic/degenerative changes. The cerebral and cerebellar sulci are prominent consistent with brain atrophy. Calcification in the left basal ganglia. No hemorrhage. Ventricles: Unremarkable. No ventriculomegaly. Bones/joints: Unremarkable. No acute fracture. Soft tissues: Unremarkable. Vasculature: Atherosclerotic disease. Sinuses: Unremarkable as visualized. No acute sinusitis. Mastoid air cells: Unremarkable as visualized. No mastoid effusion. IMPRESSION: 1. Small vessel ischemic/degenerative changes. 2. Cerebral and cerebellar atrophy. Electronically signed by: Delvin Jackson MD 11/28/22 00:22 AM
[2022-11-28 00:24] LABS: Basophils # (auto) 0.03 K/uL (0-0.2); Basophils % (auto) 0.3 %; Eosinophils # (auto) 0.04 K/uL (0-0.50); Eosinophils % (auto) 0.5 %; Hematocrit (blood only) 30.2 % (42.0-52.0); Hemoglobin 10.5 g/dl (14.0-18.0); Immature Granulocytes # (auto) 0.04 K/uL (0.01-0.20); Immature Granulocytes % (auto) 0.5 %; Lymphocytes # (auto) 1.43 K/uL (1.2-3.4); Lymphocytes % (auto) 16.1 %; Mean Corpuscular Hemoglobin 32.5 pg (25.0-34.0); Mean Corpuscular Hgb Conc 34.8 g/dL (32.0-36.0); Mean Corpuscular Volume 93.5 fL (80.0-100.0); Mean Platelet Volume 9.5 fL (9.4-12.4); Monocytes # (auto) 0.88 K/uL (0.11-0.59); Monocytes % (auto) 9.9 %; Neutrophils # (auto) 6.45 K/uL (1.40-6.50); Neutrophils % (auto) 72.7 %; Platelet Count 190 K/uL (130-400); RDW Coefficient of Variation 13.3 % (11.5-14.5); RDW Standard Deviation 45.7 fL (36.4-46.3); Red Blood Count 3.23 M/uL (4.70-6.10); White Blood Count 8.87 K/ul (4.8-10.8)
[2022-11-28 00:31] LABS: INR 1.1 (0.9-1.1); Prothrombin Time 12.1 Seconds (9.0-12.0)
[2022-11-28] MEDS ORDERED: SODIUM CHLORIDE 0.9% 1000ML 500 ML IV ONE (01:03)
[2022-11-28 01:10] LABS: T4 Free Thyroxine 0.81 ng/dl (0.61-1.60)
[2022-11-28 01:12] LABS: Adenovirus PCR Not Detected (NotDetected); Bordetella parapertussis PCR Not Detected (NotDetected); Bordetella pertussis PCR Not Detected (NotDetected); Chlamydia pneumoniae PCR Not Detected (NotDetected); Coronavirus 229E PCR Not Detected (NotDetected); Coronavirus CoV-2 (COVID19)PCR Not Detected (NotDetected); Coronavirus HKU1 PCR Not Detected (NotDetected); Coronavirus NL63 PCR Not Detected (NotDetected); Coronavirus OC43PCR Not Detected (NotDetected); Human Metapneumovirus PCR Not Detected (NotDetected); Influenza A PCR Not Detected (NotDetected); Influenza B PCR Not Detected (NotDetected); Mycoplasma pneumoniae PCR Not Detected (NotDetected); Parainfluenza Virus 1 PCR Not Detected (NotDetected); Parainfluenza Virus 2 PCR Not Detected (NotDetected); Parainfluenza Virus 3 PCR Not Detected (NotDetected); Parainfluenza Virus 4 PCR Not Detected (NotDetected); Respiratory Syncytial VirusPCR Not Detected (NotDetected); Rhinovirus/Enterovirus PCR Not Detected (NotDetected)
[2022-11-28] MEDS ORDERED: cefTRIAXone SODIUM 2,000 MG/70 ML BAG IV STA (01:40)
[2022-11-28] MEDS ORDERED: SODIUM CHLORIDE 0.9% 1000ML 1,000 ML IV ONE (02:43)
[2022-11-28] MEDS ORDERED: METOCLOPRAMIDE HCL INJ 5 MG/ML 2 ML VIAL IV ONE (02:43)
--- NOTE | 2022-11-28 05:16 | History & Physical Report ---
Date of Service November 28, 2022 Assessment & Plan (1) Complicated UTI (urinary tract infection): Plan: Complicated UTI, no sepsis for now Recurrent falls hx ambulatory dysfunction Acute on chronic hyponatremia secondary to illness hx CAD status post CABG/stent/PVD hypertension, BP stable PAF, patient NSR, patient not a candidate for anticoagulation due to fall risk as per Cardiology documentation. DM 2 insulin requiring, suboptimal control as of recent hemoglobin A1c of 8.1 this month CRI, creatinine at baseline chronic anemia, hemoglobin at baseline past tobacco abuse Medical telemetry Urine CS, Ceftriaxone Recheck serum sodium after NSS boluses given at the ER Basal bolus insulin, ISS BG goal 1 10-1 40, carb count coverage PT OT eval given recurrent falls DVT prophylaxis. Heparin subcu DNR Patient requesting updates from providers. Ms. Degroote Jose, contact #[phone]. Text document was generated using [employer] voice recognition software. It may contain grammatical or spelling errors. Kindly contact undersigned for clarification of any documentation item in question. History of Present Illness Chief Complaint: Fall Primary Care Provider: Carola Arrington MD History obtained from patient and records. Medical history significant for CAD status post CABG/stent, PVD, hypertension, mild TR, PAF, DM 2 insulin requiring, chronic hyponatremia, CRI (baseline creatinine 1.5 ), chronic anemia (baseline hemoglobin 10-11), skin cancer as perecords, past tobacco abuse. Last confinement September 2022 for hypomagnesemia, hyponatremia, ARF on CKD. Patient discharged to [facility] for rehab. Few days ago, patient noted increased urinary frequency without abdominal/flank pain complaints. Increasing weakness noted yesterday, patient slid to the ground. No headache, no syncope, no LOC. No chest pain, no SOB. Patient brought to the ER for evaluation. IV ceftriaxone administered at the ER. 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 Allergies Allergy/AdvReac Type Severity Reaction Status Date / Time No Known Allergies Allergy Verified 11/28/22 07:11 Home Medications Medication Instructions Recorded Confirmed Type aspirin 81 mg tablet,delayed 81 mg PO QAM 09/23/22 10/03/22 History release clopidogrel 75 mg tablet 75 mg PO DAILY 09/23/22 10/03/22 History insulin glargine 100 unit/mL (3 25 unit subcut QAM 09/23/22 10/03/22 History mL) subcutaneous pen (Lantus Solostar U-100 Insulin) isosorbide mononitrate 120 mg 120 mg PO QAM 09/23/22 10/03/22 History tablet,extended release 24 hr metformin 500 mg tablet,extended See Rx Instructions .Route .COMPLEX 09/23/22 10/03/22 History release 24 hr nitroglycerin 0.4 mg sublingual 0.4 mg sublingual .UD PRN Chest 09/23/22 10/03/22 History tablet Pain ranolazine 1,000 mg 1,000 mg PO BID 09/23/22 10/03/22 History tablet,extended release,12 hr rosuvastatin 20 mg tablet 20 mg PO QAM 09/23/22 10/03/22 History amiodarone 200 mg tablet 200 mg PO QAM 11/27/22 11/27/22 History aspirin 81 mg tablet,delayed 81 mg PO DAILY 11/27/22 11/27/22 History release clopidogrel 75 mg tablet 75 mg PO DAILY 11/27/22 11/27/22 History insulin glargine 100 unit/mL (3 25 unit subcut QPM 11/27/22 11/27/22 History mL) subcutaneous pen (Lantus Solostar U-100 Insulin) isosorbide mononitrate 120 mg 120 mg PO QAM 11/27/22 11/27/22 History tablet,extended release 24 hr metformin 500 mg tablet,extended 1,500 mg PO QAM 11/27/22 11/27/22 History release 24 hr ranolazine 1,000 mg 1,000 mg PO BID 11/27/22 11/27/22 History tablet,extended release,12 hr rosuvastatin 20 mg tablet 20 mg PO DAILY 11/27/22 11/27/22 History Past Med/Surg History Medical History (Updated 11/28/22 @ 11:45 by Dirk Hayes MD) Acute hyponatremia CAD (coronary artery disease) Diabetes mellitus Dyslipidemia Falls Paroxysmal atrial fibrillation Surgical History (System 11/28/22 @ 07:11 by Jackie Russo) History of appendectomy S/P CABG x 3 "s/p CABG [facility] [place] 2009 REYES-LAD, SVG-left circ, SVG-post desc art " Family History (System 11/28/22 @ 07:11 by Jackie Russo) Other Dementia Heart disease Stroke Social History (System 11/28/22 @ 07:11 by Jackie Russo) Smoking Status: Never smoker Tobacco Type: Cigarettes Second Hand Exposure: No; Do You Dip or Chew Tobacco: No; Hx Alcohol Use: No Hx Substance Use: No Preferred Language: Surinamese Communication Ability: Unable Cst Required: No Beliefs That Will Affect Care: None Current Living Situation: Spouse Current Living Situation Comment: Lives w/ at home Other Information That Helps Us Care for You: No Feels Safe at Home: Yes Safety Concerns: Feels Safe At This Time Assistive Devices: None and Walker Review of Systems Review of Systems: As per HPI, all other systems reviewed and negative Physical Exam Physical Exam: GENERAL: Pleasant, slightly anxious, slightly hard of hearing, no respiratory distress SKIN: Pallor, warm HEENT: Partial alopecia, pale palpebral conjunctivae, no ptosis, dry buccal mucosa NECK : Supple, no tenderness CHEST : CTA, no tenderness HEART : RRR, systolic murmur ABDOMEN: no distention, nontender EXTREMITIES : No LE swelling/tenderness, no other conspicuous deformities noted NEUROLOGIC : Coherent, no facial asymmetry, mild hearing impairment, gait and stance not assessed Results & Data Results & Data Vital Signs (Past 12 Hours) Vital Signs Temp Pulse Pulse Resp BP BP Pulse Ox 11/28/22 03:23 36.7 C 87 18 137/63 95 11/28/22 01:15 64 18 164/91 H 98 11/27/22 23:54 90 18 95 11/27/22 22:53 68 11/27/22 22:53 36.8 C 72 18 140/75 97 O2 Del Method 11/28/22 03:23 Room Air 11/28/22 01:15 Room Air 11/27/22 23:54 Room Air 11/27/22 22:53 11/27/22 22:53 Room Air Laboratory Results Laboratory Results WBC 8.87 K/ul (4.8-10.8) 11/27/22 23:07 RBC 3.23 M/uL (4.70-6.10) L 11/27/22 23:07 Hgb 10.5 g/dl (14.0-18.0) L 11/27/22 23:07 Hct 30.2 % (42.0-52.0) L 11/27/22 23:07 MCV 93.5 fL (80.0-100.0) 11/27/22 23:07 MCH 32.5 pg (25.0-34.0) 11/27/22 23:07 MCHC 34.8 g/dL (32.0-36.0) 11/27/22 23:07 RDW Std Deviation 45.7 fL (36.4-46.3) 11/27/22 23:07 RDW Coeff of Venancio 13.3 % (11.5-14.5) 11/27/22 23:07 Plt Count 190 K/uL (130-400) 11/27/22 23:07 MPV 9.5 fL (9.4-12.4) 11/27/22 23:07 Immature Gran % (Auto) 0.5 % 11/27/22 23:07 Neut % (Auto) 72.7 % 11/27/22 23:07 Lymph % (Auto) 16.1 % 11/27/22 23:07 [place] % (Auto) 9.9 % 11/27/22 23:07 Eos % (Auto) 0.5 % 11/27/22 23:07 Baso % (Auto) 0.3 % 11/27/22 23:07 Neut # (Auto) 6.45 K/uL (1.40-6.50) 11/27/22 23:07 Lymph # (Auto) 1.43 K/uL (1.2-3.4) 11/27/22 23:07 [place] # (Auto) 0.88 K/uL (0.11-0.59) H 11/27/22 23:07 Eos # (Auto) 0.04 K/uL (0-0.50) 11/27/22 23:07 Baso # (Auto) 0.03 K/uL (0-0.2) 11/27/22 23:07 Immature Gran # (Auto) 0.04 K/uL (0.01-0.20) 11/27/22 23:07 PT 12.1 Seconds (9.0-12.0) H 11/27/22 23:07 INR 1.1 (0.9-1.1) 11/27/22 23:07 Sodium 131 mmol/L (136-145) L 11/27/22 23:07 Potassium 4.4 mmol/L (3.5-5.1) 11/27/22 23:07 Chloride 98 mmol/L (98-107) 11/27/22 23:07 Carbon Dioxide 23 mmol/L (21-32) 11/27/22 23:07 Anion Gap 10 (3-11) 11/27/22 23:07 BUN 42 mg/dl (6-23) H 11/27/22 23:07 Creatinine 1.58 mg/dl (0.6-1.4) H 11/27/22 23:07 Est Cr Clr Drug Dosing 31.4 ml/min 11/27/22 23:07 Est GFR ( Amer) 45.2 ml/min 11/27/22 23:07 Est GFR (Non-Af Amer) 39.0 ml/min 11/27/22 23:07 BUN/Creatinine Ratio 26.6 (10-20) H 11/27/22 23:07 Glucose 107 mg/dl (70-99(Fasting)) H 11/27/22 23:07 Osmolality 287 mOsm/kg (280-300) 11/28/22 Unknown Calcium 9.7 mg/dl (8.6-10.3) 11/27/22 23:07 Magnesium 1.9 mg/dl (1.7-2.4) 11/27/22 23:07 Total Bilirubin 0.6 mg/dl (0.2-1.0) 11/27/22 23:07 AST 27 U/L (13-39) 11/27/22 23:07 ALT 28 U/L (7-52) 11/27/22 23:07 Alkaline Phosphatase 48 U/L (34-104) 11/27/22 23:07 Total Creatine Kinase 117 U/L (30-223) 11/27/22 23:07 Troponin I High Sens 11.4 pg/ml (0-20) 11/27/22 23:07 Total Protein 7.2 gm/dl (6.0-8.3) 11/27/22 23:07 Albumin 3.8 gm/dl (3.4-5.0) 11/27/22 23:07 Globulin 3.4 gm/dl (2.5-4.0) 11/27/22 23:07 Albumin/Globulin Ratio 1.1 (0.9-2) 11/27/22 23:07 TSH 7.084 uIu/ml (0.300-4.500) H 11/27/22 23:07 Free T4 0.81 ng/dl (0.61-1.60) 11/27/22 23:07 Urine Color Dark Yellow 11/27/22 23: Urine Appearance Clear (Clear) 11/27/22 23: Urine pH 5.0 (4.5-7.5) 11/27/22 23:07 Ur Specific [place] 1.017 (1.000-1.030) 11/27/22 23:07 Urine Protein 1+ (Negative) H 11/27/22 23:07 Urine Glucose (UA) Negative (Negative) 11/27/22 23: Urine Ketones Negative (Negative) 11/27/22 23:07 Urine Blood Negative (Negative) 11/27/22 23: Urine Nitrite Negative (Negative) 11/27/22 23: Urine Bilirubin Negative (Negative) 11/27/22 23:07 Urine Urobilinogen Negative (Negative) 11/27/22 23:07 Ur Leukocyte Esterase 1+ (Negative) H 11/27/22 23:07 Urine WBC (Auto) 10-30 /hpf (0-5) H 11/27/22 23:07 Urine RBC (Auto) 0-4 /hpf (0-4) 11/27/22 23:07 U Hyaline Cast (Auto) 10-30 /lpf (0-5) H 11/27/22 23:07 U Epithel Cells (Auto) >30 /lpf (0-5) H 11/27/22 23:07 Urine Bacteria (Auto) Negative (Negative) 11/27/22 23:07 Ur Renal Epithelial Cell Not Reportable 11/27/22 23: Urine Osmolality 521 mOsm/kg (500-800) 11/27/22 23:07 Adenovirus (PCR) Not Detected (NotDetected) 11/27/22 Unknown B. pertussis DNA (PCR) Not Detected (NotDetected) 11/27/22 Unknown B.parapertussis DNA PCR Not Detected (NotDetected) 11/27/22 Unknown C. pneumoniae DNA (PCR) Not Detected (NotDetected) 11/27/22 Unknown Coronavirus OC43 (PCR) Not Detected (NotDetected) 11/27/22 Unknown Coronavirus HKU1 (PCR) Not Detected (NotDetected) 11/27/22 Unknown Coronavirus 229E (PCR) Not Detected (NotDetected) 11/27/22 Unknown SARS-CoV-2 (PCR) Not Detected (NotDetected) 11/27/22 Unknown Coronavirus NL63 (PCR) Not Detected (NotDetected) 11/27/22 Unknown Human Metapneumovir PCR Not Detected (NotDetected) 11/27/22 Unknown Influenza Type A (PCR) Not Detected (NotDetected) 11/27/22 Unknown Influenza Type B (PCR) Not Detected (NotDetected) 11/27/22 Unknown M. pneumoniae (PCR) Not Detected (NotDetected) 11/27/22 Unknown Parainfluenza 1 (PCR) Not Detected (NotDetected) 11/27/22 Unknown Parainfluenza 2 (PCR) Not Detected (NotDetected) 11/27/22 Unknown Parainfluenza 3 (PCR) Not Detected (NotDetected) 11/27/22 Unknown Parainfluenza 4 (PCR) Not Detected (NotDetected) 11/27/22 Unknown RSV (PCR) Not Detected (NotDetected) 11/27/22 Unknown Entero/Rhino (PCR) Not Detected (NotDetected) 11/27/[address] 11/27/22 23:41 Exam(s): CT CHEST Without Contrast EXAM: CT Chest Without Intravenous Contrast CLINICAL HISTORY: Reason for exam: falls, cough, weak. TECHNIQUE: Axial computed tomography images of the chest without intravenous contrast. CTDI is 13.32 mGy and DLP is 503.54 mGy-cm. Automated exposure control was utilized for the study. A dose lowering technique was utilized adhering to the principles of ALARA. COMPARISON: No relevant prior studies available. FINDINGS: Lungs: There is bibasilar parenchymal atelectasis. Pleural space: Unremarkable. No pneumothorax. No significant effusion. Heart: Coronary vascular calcification. Moderate cardiomegaly. No significant pericardial effusion. Bones/joints: Status post sternotomy. Degenerative change of the thoracic spine. No acute fracture. No dislocation. Soft tissues: Unremarkable. Vasculature: There is diffuse atherosclerotic calcification of the aorta and its major branch vessels. Lymph nodes: Unremarkable. No enlarged lymph nodes. IMPRESSION: No acute findings in the chest. Electronically signed by: Delvin Jackson MD 11/28/22 00:[address] 11/27/22 23:41 Exam(s): CT HEAD Without Contrast EXAM: CT Head Without Intravenous Contrast CLINICAL HISTORY: Reason for exam: fall. TECHNIQUE: Axial computed tomography images of the head/brain without intravenous contrast. CTDI is 36.05 mGy and DLP is 624.41 mGy-cm. Automated exposure control was utilized for the study. A dose lowering technique was utilized adhering to the principles of ALARA. COMPARISON: No relevant prior studies available. FINDINGS: Brain: Areas of decreased attenuation in the deep cerebral white matter are consistent with small vessel ischemic/degenerative changes. The cerebral and cerebellar sulci are prominent consistent with brain atrophy. Calcification in the left basal ganglia. No hemorrhage. Ventricles: Unremarkable. No ventriculomegaly. Bones/joints: Unremarkable. No acute fracture. Soft tissues: Unremarkable. Vasculature: Atherosclerotic disease. Sinuses: Unremarkable as visualized. No acute sinusitis. Mastoid air cells: Unremarkable as visualized. No mastoid effusion. IMPRESSION: 1. Small vessel ischemic/degenerative changes. 2. Cerebral and cerebellar atrophy. Electronically signed by: Delvin Jackson MD 11/28/22 00:22 AM Diagnostic Findings Chest x-ray as per my interpretation no congestion EKG as per my interpretation : Rate 65, NSR, normal axis, incomplete RBBB, diffuse T wave abnormalities
[2022-11-28] MEDS ORDERED: PROMETHAZINE HCL 6.25 MG in SODIUM CHLORIDE 0.9% 50 ML IV PRN (05:20)
[2022-11-28] MEDS ORDERED: HYDROCODONE/ACETAMOPHEN 5/325MG TAB PO PRN (05:20)
[2022-11-28] MEDS ORDERED: GLUCOSE 40% GEL 15 GM TUBE PO PRN (06:07)
[2022-11-28] MEDS ORDERED: DEXTROSE 50% 50 ML SYRINGE IV PRN (06:07)
[2022-11-28] MEDS ORDERED: ACETAMINOPHEN 325 MG TAB PO PRN (06:07)
[2022-11-28] MEDS ORDERED: GLUCAGON FOR INJ 1 MG VIAL SQ PRN (06:07)
[2022-11-28] MEDS ORDERED: CARBOHYDRATES FOR HYPOGLYCEMIA PO PRN (06:07)
[2022-11-28] MEDS ORDERED: GLUCOSE 10 TAB/TUBE PO PRN (06:07)
--- NOTE | 2022-11-28 06:55 | XRay Report ---
XR chest 1V portable CLINICAL HISTORY: renal failure TECHNIQUE: Single frontal radiograph of the chest was obtained. Comparison: None available at the time of this dictation. FINDINGS: Median sternotomy wires are unchanged. Calcified aortic knob is seen. The lungs are clear. No evidenc e of pleural effusion or pneumothorax. IMPRESSION: No acute chest disease. ACT 112: Negative or not required by law. Electronically signed by: Will Cervantes M.D. 11/28/2022 6:54 AM
[2022-11-28 07:18] LABS: Basophils # (auto) 0.02 K/uL (0-0.2); Basophils % (auto) 0.2 %; Eosinophils # (auto) 0.02 K/uL (0-0.50); Eosinophils % (auto) 0.2 %; Hematocrit (blood only) 28.4 % (42.0-52.0); Hemoglobin 9.9 g/dl (14.0-18.0); Immature Granulocytes # (auto) 0.03 K/uL (0.01-0.20); Immature Granulocytes % (auto) 0.4 %; Lymphocytes # (auto) 1.62 K/uL (1.2-3.4); Lymphocytes % (auto) 19.9 %; Mean Corpuscular Hemoglobin 31.8 pg (25.0-34.0); Mean Corpuscular Hgb Conc 34.9 g/dL (32.0-36.0); Mean Corpuscular Volume 91.3 fL (80.0-100.0); Mean Platelet Volume 9.2 fL (9.4-12.4); Monocytes % (auto) 8.6 %; Neutrophils # (auto) 5.77 K/uL (1.40-6.50); Neutrophils % (auto) 70.7 %; Platelet Count 165 K/uL (130-400); RDW Coefficient of Variation 13.3 % (11.5-14.5); Red Blood Count 3.11 M/uL (4.70-6.10); White Blood Count 8.16 K/ul (4.8-10.8)
[2022-11-28 07:28] LABS: BUN Creatinine Ratio 24.5 (10-20); Creatinine Clr Calc Pharmacy 33.7 ml/min; Est GFR (African American) 49.4 ml/min; Est GFR (Non-African American) 42.6 ml/min; Potassium 4.4 mmol/L (3.5-5.1)
[2022-11-28] MEDS: HEPARIN SOD 5,000 UNIT/0.5 ML VIAL SQ SCH ×3 (08:45→21:32)
[2022-11-28] MEDS: AMIODARONE 200 MG TAB PO SCH (08:46)
[2022-11-28] MEDS: CLOPIDOGREL BISULFATE 75 MG TAB PO SCH (08:47)
[2022-11-28] MEDS: ASPIRIN 81 MG ECTAB PO SCH (08:47)
[2022-11-28] MEDS: ISOSORBIDE MONO EXTENDED REL 60 MG TABCR PO SCH (08:48)
[2022-11-28] MEDS: ROSUVASTATIN CALCIUM 20 MG TAB PO SCH (08:49)
[2022-11-28] MEDS: RANOLAZINE 500 MG ER TAB PO SCH ×2 (08:49→21:31)
[2022-11-28] MEDS: INSULIN ASPART PER UNIT CHARGE SC SCH ×4 (09:00→19:54)
--- NOTE | 2022-11-28 12:20 | Electrocardiogram Report ---
Test Reason : Blood Pressure : / mmHG Vent. Rate : 067 BPM Atrial Rate : 067 BPM P-R Int : 204 ms QRS Dur : 164 ms QT Int : 472 ms P-R-T Axes : 011 059 002 degrees QTc Int : 498 ms Normal sinus rhythm with 1st degree AV block Right bundle branch block Abnormal ECG No previous ECGs available Confirmed by Cal Turner ([id number]) on 11/28/2022 12:19:49 PM Referred By: REFERRED SELF Confirmed By:Wenceslao Turner
--- NOTE | 2022-11-28 16:48 | Communication Note ---
Date of Service: November 28, 2022 87-year-old male with PMH of CAD status post CABG/stent, PVD, HTN, DM 2 insulin requiring, chronic hyponatremia, CKD [baseline creatinine around 1.5], chronic anemia baseline hemoglobin 10-11, skin cancer, past tobacco abuse presented to the ED with complaint of increasing weakness noted over last several days [facility]. Patient also reported having increased urinary frequency since last few days [facility]. He is being managed for the following: Recurrent falls: Likely deconditioning/sarcopenia/advanced age exacerbated by acute UTI. PT/OT. Recommend to continue PT upon discharge as well. Complicated UTI: Patient with increasing urinary frequency [facility], UA borderline, follow urine culture. Continue with ceftriaxone 11/28. Chronic hyponatremia: Admitting sodium of 131 which is about his baseline. We will continue to monitor. Other chronic medical conditions: Continue with home medications as and when able hx CAD status post CABG/stent/PVD hypertension, BP stable PAF, patient NSR, patient not a candidate for anticoagulation due to fall risk as per Cardiology documentation. DM 2 insulin requiring, acceptable control as of recent hemoglobin A1c of 8.1 this month given his age and comorbidities CRI, creatinine at baseline chronic anemia, hemoglobin at baseline past tobacco abuse DVT prophylaxis: Heparin subcu DNR/DNI Patient's Ms. Beatrice Garcia, contact #[phone]. She was given an update at bedside. Answered all her questions. On examination, patient on room air, no abdominal tenderness. For detailed information on the patient, refer to today's H&P note.
[2022-11-28] MEDS: LANTUS PER UNIT CHARGE SQ SCH (17:38)
[2022-11-28] MEDS ORDERED: LANTUS PER UNIT CHARGE SQ SCH (21:00)
[2022-11-29] MEDS: cefTRIAXone SODIUM 2,000 MG in DEXTROSE 5% 50 ML IV SCH (02:52)
[2022-11-29] MEDS: HEPARIN SOD 5,000 UNIT/0.5 ML VIAL SQ SCH ×3 (05:22→21:16)
[2022-11-29 07:28] LABS: Hematocrit (blood only) 33.7 % (42.0-52.0); Hemoglobin 11.5 g/dl (14.0-18.0); Mean Corpuscular Hemoglobin 31.7 pg (25.0-34.0); Mean Corpuscular Hgb Conc 34.1 g/dL (32.0-36.0); Mean Corpuscular Volume 92.8 fL (80.0-100.0); Mean Platelet Volume 9.2 fL (9.4-12.4); Platelet Count 191 K/uL (130-400); RDW Coefficient of Variation 13.2 % (11.5-14.5); RDW Standard Deviation 44.5 fL (36.4-46.3); Red Blood Count 3.63 M/uL (4.70-6.10); White Blood Count 6.44 K/ul (4.8-10.8)
[2022-11-29 07:53] LABS: BUN Creatinine Ratio 20.1 (10-20); Calcium 8.9 mg/dl (8.6-10.3); Creatinine Clr Calc Pharmacy 36.8 ml/min; Est GFR (African American) 55.2 ml/min; Est GFR (Non-African American) 47.6 ml/min; Magnesium 1.9 mg/dl (1.7-2.4); Phosphorus 2.9 mg/dl (2.5-4.9); Potassium 3.9 mmol/L (3.5-5.1)
[2022-11-29] MEDS: ISOSORBIDE MONO EXTENDED REL 60 MG TABCR PO SCH (08:27)
[2022-11-29] MEDS: AMIODARONE 200 MG TAB PO SCH (08:27)
[2022-11-29] MEDS: ROSUVASTATIN CALCIUM 20 MG TAB PO SCH (08:27)
[2022-11-29] MEDS: CLOPIDOGREL BISULFATE 75 MG TAB PO SCH (08:27)
[2022-11-29] MEDS: RANOLAZINE 500 MG ER TAB PO SCH ×2 (08:27→20:33)
[2022-11-29] MEDS: ASPIRIN 81 MG ECTAB PO SCH (08:27)
[2022-11-29] MEDS: INSULIN ASPART PER UNIT CHARGE SC SCH ×4 (08:30→20:33)
--- NOTE | 2022-11-29 15:52 | Hospitalist Progress Note ---
Date of Service November 29, 2022 Assessment & Plan (1) Complicated UTI (urinary tract infection): Plan 87-year-old male with PMH of CAD status post CABG/stent, PVD, HTN, DM 2 insulin requiring, chronic hyponatremia, CKD [baseline creatinine around 1.5], chronic anemia baseline hemoglobin 10-11, skin cancer, past tobacco abuse presented to the ED with complaint of increasing weakness noted over last several days [employer]. Patient also reported having increased urinary frequency since last few days [employer] [facility]. He is being managed for the following: Recurrent falls:Likely deconditioning/sarcopenia/advanced age exacerbated by acute UTI. PT/OT. Recommend to continue PT upon discharge as well. Complicated UTI: Patient with increasing urinary frequency [employer], UA borderline, follow urine culture. Continue with ceftriaxone 11/28. Chronic hyponatremia: Admitting sodium of 131 which is about his baseline. We will continue to monitor. Other chronic medical conditions:Continue with home medications as and when able hx CAD status post CABG/stent/PVD hypertension, BP stable PAF, patient NSR, patient not a candidate for anticoagulation due to fall risk as per Cardiology documentation. DM 2 insulin requiring, acceptable control as of recent hemoglobin A1c of 8.1 this month given his age and comorbidities CRI, creatinine at baseline chronic anemia, hemoglobin at baseline past tobacco abuse DVT prophylaxis:Heparin subcu DNR/DNI Patient's Ms. Beatrice Garcia, contact #[phone]. She was given an update at bedside again today. Answered all her questions. Admission and Anticipated Discharge Date Admission Date: November 28, 2022 Subjective Patient seen and examined at bedside as a follow-up of recurrent falls, generalized weakness, complicated UTI. Patient was sitting up in chair, on room air, NAD, denies any new acute event overnight. Patient reports feeling better, almost back to his baseline. Patient's would like to take him home tomorrow as she does not feel comfortable today. Patient reports eating okay and moving bowels okay. Denies any headache or dizziness or fever or chills. Physical Exam Physical Exam: GENERAL: Alert and oriented x3. NAD, on RA. Mild HUGHES. HEENT: No pallor, no icterus. Pupils equal, round and reactive to light. Oral mucosa moist. NECK: No JVD, no neck masses. HEART: S1 and S2 heard. Regular rate and rhythm. No murmur, no gallop. RESPIRATORY SYSTEM: Normal AP diameter. No accessory muscle use. No wheezing, no crackles. ABDOMEN: Soft, bowel sounds present, nontender, no distention. CENTRAL NERVOUS SYSTEM: No facial droop. Speech is clear. Obeys simple commands. Moves extremities. EXTREMITIES: No edema, no erythema seen. Results & Data Results & Data Vital Signs (Past 12 Hours) Vital Signs Temp Pulse Pulse Resp BP Pulse Ox O2 Del Method 11/29/22 15:19 36.8 C 90 18 99/61 L 96 Room Air 11/29/22 12:28 36.5 C 114 H 18 102/73 Room Air 11/29/22 08:00 92 H 11/29/22 07:16 36.7 C 85 16 112/70 97 Room Air
[2022-11-29] MEDS: LANTUS PER UNIT CHARGE SQ SCH (17:15)
[2022-11-30] MEDS: cefTRIAXone SODIUM 2,000 MG in DEXTROSE 5% 50 ML IV SCH (03:33)
[2022-11-30] MEDS: HEPARIN SOD 5,000 UNIT/0.5 ML VIAL SQ SCH ×2 (06:05→13:55)
[2022-11-30] MEDS: RANOLAZINE 500 MG ER TAB PO SCH (08:10)
[2022-11-30] MEDS: ASPIRIN 81 MG ECTAB PO SCH (08:10)
[2022-11-30] MEDS: ISOSORBIDE MONO EXTENDED REL 60 MG TABCR PO SCH (08:11)
[2022-11-30] MEDS: ROSUVASTATIN CALCIUM 20 MG TAB PO SCH (08:11)
[2022-11-30] MEDS: AMIODARONE 200 MG TAB PO SCH (08:11)
[2022-11-30] MEDS: CLOPIDOGREL BISULFATE 75 MG TAB PO SCH (08:11)
[2022-11-30] MEDS: INSULIN ASPART PER UNIT CHARGE SC SCH ×2 (08:38→12:00)
--- NOTE | 2022-11-30 12:41 | Discharge Summary ---
Date of Service November 30, 2022 Admission HPI Per Admitting Provider History obtained from patient and records. Medical history significant for CAD status post CABG/stent, PVD, hypertension, mild TR, PAF, DM 2 insulin requiring, chronic hyponatremia, CRI (baseline creatinine 1.5 ), chronic anemia (baseline hemoglobin 10-11), skin cancer as perecords, past tobacco abuse. Last confinement September 2022 for hypomagnesemia, hyponatremia, ARF on CKD. Patient discharged to [facility] for rehab. Few days ago, patient noted increased urinary frequency without abdominal/flank pain complaints. Increasing weakness noted yesterday, patient slid to the ground. No headache, no syncope, no LOC. No chest pain, no SOB. Patient brought to the ER for evaluation. IV ceftriaxone administered at the ER. 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 Admission Exam Per Admitting Provider GENERAL: Pleasant, slightly anxious, slightly hard of hearing, no respiratory distress SKIN: Pallor, warm HEENT: Partial alopecia, pale palpebral conjunctivae, no ptosis, dry buccal mucosa NECK : Supple, no tenderness CHEST : CTA, no tenderness HEART : RRR, systolic murmur ABDOMEN: no distention, nontender EXTREMITIES : No LE swelling/tenderness, no other conspicuous deformities noted NEUROLOGIC : Coherent, no facial asymmetry, mild hearing impairment, gait and stance not assessed Principal Diagnosis Generalized weakness Recurrent falls Complicated UTI Chronic hyponatremia Discharge Exam GENERAL: Alert and oriented x3. NAD, on RA. Mild [place]. HEENT: No pallor, no icterus. Pupils equal, round and reactive to light. Oral mucosa moist. NECK: No JVD, no neck masses. HEART: S1 and S2 heard. Regular rate and rhythm. No murmur, no gallop. RESPIRATORY SYSTEM: Normal AP diameter. No accessory muscle use. No wheezing, no crackles. ABDOMEN: Soft, bowel sounds present, nontender, no distention. CENTRAL NERVOUS SYSTEM: No facial droop. Speech is clear. Obeys simple commands. Moves extremities. EXTREMITIES: No edema, no erythema seen. Discharge Data Allergies Allergy/AdvReac Type Severity Reaction Status Date / Time No Known Allergies Allergy Verified 11/28/22 07:11 Consultations 11/28/22 01:46 ED Decision to Admit Stat Ordered Studies 11/27/22 23:41 CT chest diagnostic wo con Stat CT head/brain wo con Stat Hospital Course (1) Complicated UTI (urinary tract infection): Plan 87-year-old male with PMH of CAD status post CABG/stent, PVD, HTN, DM 2 insulin requiring, chronic hyponatremia, CKD [baseline creatinine around 1.5], chronic anemia baseline hemoglobin 10-11, skin cancer, past tobacco abuse presented to the ED with complaint of increasing weakness noted over last several days [employer]. Patient also reported having increased urinary frequency since last few days [employer]. He is being managed for the following: Recurrent falls:Likely deconditioning/sarcopenia/advanced age exacerbated by acute UTI. PT/OT. Recommend to continue PT upon discharge as well. Complicated UTI: Patient with increasing urinary frequency [employer], UA borderline, UCx contmainated. Continue with ceftriaxone 11/28. on PO atb upon DC to complete the course. Chronic hyponatremia: Admitting sodium of 131 which is about his baseline. stable. Other chronic medical conditions:Continue with home medications as and when able hx CAD status post CABG/stent/PVD hypertension, BP stable PAF, patient NSR, patient not a candidate for anticoagulation due to fall risk as per Cardiology documentation. DM 2 insulin requiring, acceptable control as of recent hemoglobin A1c of 8.1 this month given his age and comorbidities CRI, creatinine at baseline chronic anemia, hemoglobin at baseline past tobacco abuse DVT prophylaxis:Heparin subcu DNR/DNI Patient's Ms. Beatrice Garcia, contact #[phone]. She was given an update at bedside again today. Answered all her questions. Patient being discharged to home with following instruction at the point of discharge: Follow-up with your primary care physician within a week time and likely you will need labs CBC/CMP/magnesium/phosphorus. You will be discharged on antibiotic to complete the course for your UTI treatment. For your generalized weakness and recurrent falls, continue with your physical therapy as prior. Maintain slow change in position from lying to sitting and sitting to standing position as discussed at the bedside. Please make sure that you are able to get your medications today by calling your pharmacy before you leave the hospital so that your treatment continuity is not broken. Home Health Attestation I certify that this patient is under my care and that I, or a physicians data assistant working with me, had a face to-face encounter that meets the home health [id number] encounter requirements with this patient. The encounter with the patient was in whole, or in part, for the following medical condition, which is the primary reason for home health care (list medical condition): I certify that, based on my findings, the following services are medically necessary home health services: My clinical findings support the need for the above services because: Further, I certify that my clinical findings support that this patient is homebound (i.e. absences from home require considerable and taxing effort and ar e for medical reasons or islam services or infrequently or of short duration when for other reasons) because: Certification for Home Health Services: Based on the above findings, I certify that this patient is confined to the home and needs intermittent correction care, physical therapy and/or speech therapy or continues to need occupational therapy. The patient is under my care, and I have initiated the establishment of the plan of care. This patient will be followed by a physician who will periodically review the plan of care. Total Time Total Time Spent Total Time Spent (In Minutes): 45 Discharge Plan Discharge Items Patient Disposition: Home - Home Health Services Reason For Visit: HYPONATREMIA, COMP UTI Discharge Diagnosis: Generalized weakness Recurrent falls Complicated UTI Chronic hyponatremia Activity: As commented below Activity Comment: Continue with your physical therapy as prior. Non-emergency contact: Primary Care Provider Call non-emergency contact if: you have any medication questions, your symptoms worsen and your temperature is above 101 Follow-up/Referrals: Carola Arrington MD [Primary Care Provider] - Diet: Carb Consistent or DM2 and Heart Healthy Addtl Attending Provider Instructions: Follow-up with your primary care physician within a week time and likely you will need labs CBC/CMP/magnesium/phosphorus. You will be discharged on antibiotic to complete the course for your UTI treatment. For your generalized weakness and recurrent falls, continue with your physical therapy as prior. Maintain slow change in position from lying to sitting and sitting to standing position as discussed at the bedside. Please make sure that you are able to get your medications today by calling your pharmacy before you leave the hospital so that your treatment continuity is not broken. Pending Studies at Discharge: No Stand-Alone Forms: My [employer] Info, Smoking Cessation Medications and DC Order Prescriptions: New cefdinir 300 mg capsule 300 mg PO BID 3 Days Qty: 6 0RF Continued amiodarone 200 mg tablet 200 mg PO QAM clopidogrel 75 mg tablet 75 mg PO DAILY aspirin 81 mg Tablet,Delayed Release (Dr/Ec) 81 mg PO DAILY isosorbide mononitrate 120 mg Tablet Extended Release 24 Hr 120 mg PO QAM metformin 500 mg tablet extended release 24 hr 1,500 mg PO QAM rosuvastatin 20 mg Tablet 20 mg PO DAILY insulin glargine [Lantus Solostar U-100 Insulin] 100 unit/mL (3 mL) insulin pen 25 unit SUBCUT QPM Rx Instructions: TAKES AT 1630 ranolazine 1,000 mg Tablet Extended Release 12 Hr 1,000 mg PO BID metformin 500 mg tablet extended release 24 hr See Rx Instructions .ROUTE .COMPLEX Rx Instructions: Patient is taking 1000mg by mouth in the morning and 500mg by mouth in the evening. insulin glargine [Lantus Solostar U-100 Insulin] 100 unit/mL (3 mL) insulin pen 25 unit SUBCUT QAM Discontinued ranolazine 1,000 mg tablet extended release 12 hr 1,000 mg PO BID isosorbide mononitrate 120 mg tablet extended release 24 hr 120 mg PO QAM clopidogrel 75 mg tablet 75 mg PO DAILY rosuvastatin 20 mg tablet 20 mg PO QAM nitroglycerin 0.4 mg Tablet, Sublingual 0.4 mg sublingual .UD PRN (Reason: Chest Pain) Rx Instructions: NEEDED FOR CHEST PAIN : ONE TABLET UNDER THE TONGUE EVERY 5 MINUTES, UP TO THREE DOSES. aspirin 81 mg Tablet,Delayed Release (Dr/Ec) 81 mg PO QAM Discharge Orders: Discharge Order (Routine); Ordered 11/30/22 Ordered By: Mark Miller/Other Patient Handouts: Urinary Tract Infections in Men, Hyponatremia Dc, Fall Prevention Assessing Risk, ED FALL-from [id number] Admission Data Admit Date/Time: 11/28/22 05:17 Attending Provider: Mark Avery Admit Provider: Dirk Hayes Primary Care Provider: Carola Arrington Other Providers: Azael Lozano ; Dirk Hayes Other Interventions: Discharge Summary Assessment (RN) Last Done: 11/30/22 10:20
== END 2022-11-30 15:10 | disposition home or self-care (01) | DRG 690 ==
LOC: ED 22:43 → EDINP 11-28 05:17 → SUATTDRO 11-28 05:17 → MERGE 11-28 05:17 → EDINP 11-28 06:08 → 2N 11-28 15:43

== ENCOUNTER 2023-02-10 11:56 | Inpatient (IN) ==
[2023-02-10] MEDS ORDERED: ACETAMINOPHEN 325 MG TAB PO STA (12:03)
--- NOTE | 2023-02-10 12:09 | Emergency Department Note ---
Impression & Plan Falls frequently, KIKI (acute kidney injury), Acute hypotension, AF (paroxysmal atrial fibrillation) ED Provider Note NAME: JENNA ROJAS AGE: 87 SEX: M : 1935 ARRIVES VIA: Ambulance INFORMANT: Patient, EMS ED PROVIDER(S): Calin Pizarro DO CHIEF COMPLAINT: Frequent falls HPI: The patient is an 87-year-old male who presented to the emergency department for an evaluation for frequent falls. The patient has a history of atrial fibrillation. He does take blood thinners. According to the prehospital personnel the patient was having episodes of intermittent tachycardia and then bradycardia. His significant other does give him his medications. The patient denies having any nausea or vomiting. He denies having any chest pain. He states he is fallen at night when he goes to get up to urinate. He has an injury to the left side of his face but also has multiple skin tears to his arm and abrasions over his left back. He denies having any difficulty breathing. He was not seen by his family doctor for the symptoms. He presented to the emergency department by ambulance. ROS: See above HPI for pertinent positives & negatives. A total of 10 systems reviewed and were otherwise negative. PAST MEDICAL HISTORY: See Below PAST SURGICAL HISTORY: See Below FAMILY HISTORY: See Below SOCIAL HISTORY: See Below HOME MEDICATIONS: See Below ALLERGIES: See Below VITALS: See Below PHYSICAL EXAMINATION: GENERAL: Patient is awake alert in no acute distress patient is resting comfortably and showing no signs of anxiety EYES: The conjunctivae are clear. The pupils are round and reactive. There was a small contusion under the left eye EARS, NOSE, MOUTH AND THROAT: The nose is without any evidence of any deformity. Mucous membranes are moist. Tongue is midline. NECK: The neck is nontender. RESPIRATORY: Normal respiratory effort is noted there is no evidence of wheezing rhonchi or rales CARDIOVASCULAR: Regular rate and rhythm noted there no murmurs rubs or gallops normal S1 normal S2. GASTROINTESTINAL: The abdomen is soft. Abdomen is nontender. BACK: No midline tenderness was noted. There was an abrasion and tenderness to palpation of the left posterior thoracic spine. MUSCULOSKELETAL/EXTREMITIES: There is no evidence of gross deformity full range of motion is noted in the hips and shoulders. SKIN: There is no significant pedal edema. Multiple skin tears were noted on the right arm. NEUROLOGIC: Patient is awake alert and oriented x3. Strength was symmetric. MEDICAL DECISION MAKING: The patient is an 87-year-old male who presented to the emergency department by ambulance. History was also obtained from the patient's significant other. The EMS personnel state the patient was having episodes of tachycardia followed by bradycardia. He was very symptomatic when these episodes would occur. They report that he was having rapid atrial fibrillation. I discussed the patient's laboratory and radiographic studies with him. He was found to have a slight elevation in his creatinine compared to baseline. For this reason he was tr eated with a small fluid bolus. I discussed the patient's condition with him. I discussed this findings with him and his significant other. [facility]. He may require further inpatient work-up as well as evaluation by cardiology for pacemaker if he has having tachybradycardia syndrome or some other dysrhythmia causing him to fall. Triage Nursing notes reviewed. Prior medical records reviewed Vital Signs: reviewed and remarkable for no significant abnormalities Differential diagnosis: Infection, dehydration, metabolic abnormality, hypo/hyperglycemia, electrolyte disturbance, anemia, hypoxia, cardiac sources, intracerebral event, toxicologic, neurologic, as well as other pathologies. ER treatment provided: See below Diagnostics interpreted by me: ECG: EKG was obtained in the emergency department. My interpretation is sinus bradycardia at 58 bpm. There is no PVCs noted. Right bundle branch block pattern was noted. This was compared to a tracing from October 04, 2022. The rate has slowed otherwise no significant changes were noted. Cardiac Monitoring: An order was placed for continuous cardiac monitoring. The monitor shows a rate of 62 bpm with sinus rhythm. Laboratory studies: As stated above and show below. Imaging studies: See below. Radiographic imaging was reviewed by myself Consultation(s): I discussed this case with Claud[facility] Past Med/Surg History Medical History Acute hyponatremia CAD (coronary artery disease) Diabetes mellitus Dyslipidemia Falls Paroxysmal atrial fibrillation Surgical History History of appendectomy S/P CABG x 3 "s/p CABG [facility] [place] 2008 REYES-LAD, SVG-left circ, SVG-post desc art " Family History Other Dementia Heart disease Stroke Social History Smoking Status: Never smoker Tobacco Type: Cigarettes Second Hand Exposure: No; Do You Dip or Chew Tobacco: No; Hx Alcohol Use: No Hx Substance Use: No Preferred Language: Welsh Communication Ability: Effective Building Equipment Operator Required: No Beliefs That Will Affect Care: None Current Living Situation: Spouse Current Living Situation Comment: Lives w/ at home Feels Safe at Home: Yes Assistive Devices: Walker Allergies Allergies Allergy/AdvReac Type Severity Reaction Status Date / Time No Known Allergies Allergy Verified 02/10/23 13:26 Home Meds Home Medications Medication Instructions Recorded Confirmed insulin glargine 100 unit/mL (3 25 unit subcut QAM 09/23/22 02/10/23 mL) subcutaneous pen (Lantus Solostar U-100 Insulin) metformin 500 mg tablet,extended See Rx Instructions .Route .COMPLEX 09/23/22 02/10/23 release 24 hr amiodarone 200 mg tablet 200 mg PO QAM 11/27/22 02/10/23 aspirin 81 mg tablet,delayed 81 mg PO DAILY 11/27/22 02/10/23 release clopidogrel 75 mg tablet 75 mg PO DAILY 11/27/22 02/10/23 isosorbide mononitrate 120 mg 120 mg PO QAM 11/27/22 02/10/23 tablet,extended release 24 hr ranolazine 1,000 mg 1,000 mg PO BID 11/27/22 02/10/23 tablet,extended release,12 hr rosuvastatin 20 mg tablet 20 mg PO DAILY 11/27/22 02/10/23 cholecalciferol (vitamin D3) 50 50 mcg PO QAM 02/10/23 02/10/23 mcg (2,000 unit) tablet (Vitamin D3) levothyroxine 25 mcg tablet 25 mcg PO QAM 02/10/23 02/10/23 Results & Data (ED) Vital Signs Vital Signs - 24 hr 02/10/23 12:00 02/10/23 12:06 02/10/23 12:07 Temperature 36.8 C 36.8 C Temperature Source Oral Oral Pulse Rate 60 Pulse Rate [Right Finger] 59 L Pulse Rhythm Regular Pulse Rhythm [Right Finger] Regular Pulse Strength Normal Pulse Strength [Right Finger] Normal Respiratory Rate 18 18 Respiratory Effort / Characteristics Non-Labored Spontaneous Non-Labored Spontaneous Respiratory Depth Normal Normal Respiratory Pattern Regular Regular Blood Pressure 132/76 Blood Pressure [Left Arm] 132/76 Blood Pressure Mean 94 Blood Pressure Mean [Left Arm] 94 Blood Pressure Position Lying Pulse Oximetry 98 97 95 Oxygen Delivery Method Room Air Room Air Room Air Sepsis Recent Fever Within 48 Hours No Sepsis New/Unexplained Change in Mental Status No Sepsis Action Taken by Nursing No Action Required 02/10/23 12:24 Temperature Temperature Source Pulse Rate 62 Pulse Rate [Right Finger] Pulse Rhythm Pulse Rhythm [Right Finger] Pulse Strength Pulse Strength [Right Finger] Respiratory Rate Respiratory Effort / Characteristics Respiratory Depth Respiratory Pattern Blood Pressure Blood Pressure [Left Arm] Blood Pressure Mean Blood Pressure Mean [Left Arm] Blood Pressure Position Pulse Oximetry Oxygen Delivery Method Sepsis Recent Fever Within 48 Hours Sepsis New/Unexplained Change in Mental Status Sepsis Action Taken by Fdc Medications Current Medication List: was personally reviewed by me Laboratory Data Attestation: I reviewed the patient's lab results. 02/10/23 11:40 02/10/23 11:40 Lab Results 02/10/23 02/10/23 02/10/23 Range/Units 11:40 11:40 11:40 WBC 8.04 (4.8-10.8) K/ul RBC 3.74 L (4.70-6.10) M/uL Hgb 12.1 L (14.0-18.0) g/dl Hct 34.6 L (42.0-52.0) % MCV 92.5 (80.0-100.0) fL MCH 32.4 (25.0-34.0) pg MCHC 35.0 (32.0-36.0) g/dL RDW Std Deviation 51.8 H (36.4-46.3) fL RDW Coeff of Venancio 15.3 H (11.5-14.5) % Plt Count 172 (130-400) K/uL MPV 9.8 (9.4-12.4) fL Immature Gran % (Auto) 0.5 % Neut % (Auto) 72.0 % Lymph % (Auto) 19.0 % Alfalfa % (Auto) 7.8 % Eos % (Auto) 0.5 % Baso % (Auto) 0.2 % Neut # (Auto) 5.78 (1.40-6.50) K/uL Lymph # (Auto) 1.53 (1.20-3.40) K/uL Alfalfa # (Auto) 0.63 H (0.11-0.59) K/uL Eos # (Auto) 0.04 (0.00-0.50) K/uL Baso # (Auto) 0.02 (0.00-0.20) K/uL Immature Gran # (Auto) 0.04 (0.01-0.20) K/uL PT Cancelled INR Cancelled APTT Cancelled PTT Ratio Cancelled Sodium 132 L (136-145) mmol/L Potassium 4.9 (3.5-5.1) mmol/L Chloride 98 (98-107) mmol/L Carbon Dioxide 28 (21-32) mmol/L Anion Gap 6 (3-11) BUN 36 H (6-23) mg/dl Creatinine 1.82 H (0.6-1.4) mg/dl Est Cr Clr Drug Dosing 27.2 ml/min Est GFR ( Amer) 38.1 ml/min Est GFR (Non-Af Amer) 32.9 ml/min BUN/Creatinine Ratio 19.8 (10-20) Glucose 286 H (70-99(Fasting)) mg/dl Calcium 9.6 (8.6-10.3) mg/dl Magnesium 2.0 (1.7-2.4) mg/dl Total Bilirubin 0.7 (0.2-1.0) mg/dl AST 34 (13-39) U/L ALT 35 (7-52) U/L Alkaline Phosphatase 53 (34-104) U/L Total Creatine Kinase 119 (30-223) U/L Troponin I High Sens 13.6 (0-20) pg/ml Total Protein 7.3 (6.0-8.3) gm/dl Albumin 4.1 (3.4-5.0) gm/dl Globulin 3.2 (2.5-4.0) gm/dl Albumin/Globulin Ratio 1.3 (0.9-2) TSH 3.951 (0.300-4.500) uIu/ml Administered Medications Discontinued Medications Acetaminophen (Acetaminophen 325 Mg Tab) 650 mg PO NOW STA Stop: 02/10/23 12:04 Last Admin: 02/10/23 12:56 Dose: 650 mg Documented By: SHARIF Sodium Chloride (Nss) 500 mls @ 999 mls/hr IV .Q31M AMY Stop: 02/10/23 12:45 Last Infusion: 02/10/23 13:12 Dose: 0 mls/hr Documented By: Admin: 02/10/23 12:23 Dose: 999 mls/hr Documented By: SHARIF Sodium Chloride (Nss) 500 mls @ 999 mls/hr IV .Q31M ONE Stop: 02/10/23 14:04 Last Admin: 02/10/23 14:11 Dose: 999 mls/hr Documented By: SHARIF Imaging Data Attestation: I personally reviewed and interpreted this imaging study as follows: My Impression: CT of the brain was obtained in the emergency department. My interpretation is no intracranial hemorrhage or mass effect, final report below. 1 view chest x-ray was obtained in the emergency department. My interpretation is no free air or definite infiltrate, final report below. Radiologist's Impression: Cervical Spine CT 02/10/23 12:03 CT OF THE CERVICAL SPINE WITHOUT CONTRAST CLINICAL HISTORY: fall COMPARISON STUDY: No previous studies for comparison. TECHNIQUE: Helical axial images of the cervical spine were obtained without IV contrast. Sagittal and coronal reconstructions were viewed. Automated exposure control was utilized for the study. A dose lowering technique was utilized adhering to the principles of ALARA. FINDINGS: There is reversal of the cervical lordosis. There is severe disc space narrowing with extensive osteophytosis at C3-C4. Moderate to severe disc space narrowing is noted at multiple additional levels. There is moderate multilevel facet arthrosis. No cervical spine fracture is present. There is no prevertebral edema. Facet joints are intact. IMPRESSION: 1. No acute cervical spine fracture or subluxation. 2. Moderate to severe multilevel degenerative changes within the cervical spine. ACT 112: Negative or not required by law. Electronically signed by: Ravindra Agudelo M.D. 02/10/2023 1:09 PM Chest X-Ray 02/10/23 12:03 XR chest 1V portable CLINICAL HISTORY: weakness COMPARISON STUDY: Chest CT November 27, 2022. Chest radiograph November 28, 2022. FINDINGS: There is no pneumothorax or pleural effusion. Linear left basilar opacities favor atelectasis. Cardiomegaly is unchanged. No evidence for pulmonary edema. There are median sternotomy wires and mediastinal surgical clips. IMPRESSION: No acute cardiopulmonary findings. No change in appearance of the chest. ACT 112: Negative or not required by law. Electronically signed by: Ravindra Agudelo M.D. 02/10/2023 1:03 PM Pelvis X-Ray 02/10/23 12:03 XR pelvis 1-2V routine CLINICAL HISTORY: fall. Pelvic pain. Weakness. COMPARISON STUDY: None. FINDINGS: No fracture or dislocation within the pelvis or hips. The sacrum is i ntact. Vascular calcifications are noted. Mild degenerative changes within the sacroiliac joints and bilateral hips. Degenerative changes also noted within the lower lumbar spine. IMPRESSION: No fracture or dislocation within the pelvis or hips. ACT 112: Negative or not required by law. Electronically signed by: Reinaldo Nunez M.D. 02/10/2023 12:[address] 02/10/23 12:04 CT head/brain wo con CLINICAL HISTORY: fall Technique: Contiguous axial CT images of the head were acquired from the base of the skull to the vertex without intravenous contrast administration. Images were viewed in brain, subdural and bone windows. Automated dose lowering techniques and/or adjustment according to patient size were utilized for this exam. Comparison: Comparison is made to CT head 11/27/2022 Findings: Areas of decreased attenuation are present in the periventricular and subcortical white matter bilaterally consistent with small vessel ischemic disease. Generalized cerebral atrophy with commensurate enlargement of the ventricles, sulci, and cisterns is also present. There is no acute intracranial hemorrhage or evidence of acute territorial infarction. No shift of the midline structures, mass effect, or extra-axial abnormalities are shown. Athero sclerotic calcifications are present in the intracranial segments of the internal carotid arteries. Imaged portions of the paranasal sinuses and mastoid air cells are clear. The orbits appear normal. There are no acute fractures of the calvaria or scalp swelling. Impression: No acute intracranial hemorrhage, no evidence of acute territorial infarction or other acute intracranial disease process. ACT 112: Negative or not required by law. Electronically signed by: Will Cervantes M.D. 02/10/2023 1:06 PM Discharge Plan Visit Data Chief Complaint: Weakness Stated Complaint: Weakness ED Provider: Calin Pizarro Discharge Problem: Falls frequently, KIKI (acute kidney injury), Acute hypotension, AF (paroxysmal atrial fibrillation) Patient Disposition: Being Evaluated by Hospitalist Forms Stand Alone Forms: My [facility] Prescriptions Prescriptions: No Action amiodarone 200 mg tablet 200 mg PO QAM clopidogrel 75 mg tablet 75 mg PO DAILY aspirin 81 mg Tablet,Delayed Release (Dr/Ec) 81 mg PO DAILY isosorbide mononitrate 120 mg Tablet Extended Release 24 Hr 120 mg PO QAM rosuvastatin 20 mg Tablet 20 mg PO DAILY ranolazine 1,000 mg Tablet Extended Release 12 Hr 1,000 mg PO BID levothyroxine 25 mcg tablet 25 mcg PO QAM cholecalciferol (vitamin D3) [Vitamin D3] 50 mcg (2,000 unit) Tablet 50 mcg PO QAM metformin 500 mg tablet extended release 24 hr See Rx Instructions .ROUTE .COMPLEX Rx Instructions: Patient is taking 1000mg by mouth in the morning and 500mg by mouth in the evening. insulin glargine [Lantus Solostar U-100 Insulin] 100 unit/mL (3 mL) insulin pen 25 unit SUBCUT QAM Referrals Referrals: Carola Arrington MD [Primary Care Provider] -
[2023-02-10] MEDS ORDERED: SODIUM CHLORIDE 0.9% 500 ML IV SCH (12:15)
[2023-02-10 12:46] LABS: Basophils # (auto) 0.02 K/uL (0.00-0.20); Basophils % (auto) 0.2 %; Eosinophils # (auto) 0.04 K/uL (0.00-0.50); Eosinophils % (auto) 0.5 %; Hematocrit (blood only) 34.6 % (42.0-52.0); Hemoglobin 12.1 g/dl (14.0-18.0); Immature Granulocytes # (auto) 0.04 K/uL (0.01-0.20); Immature Granulocytes % (auto) 0.5 %; Lymphocytes # (auto) 1.53 K/uL (1.20-3.40); Mean Corpuscular Hemoglobin 32.4 pg (25.0-34.0); Mean Corpuscular Volume 92.5 fL (80.0-100.0); Mean Platelet Volume 9.8 fL (9.4-12.4); Monocytes # (auto) 0.63 K/uL (0.11-0.59); Monocytes % (auto) 7.8 %; Neutrophils # (auto) 5.78 K/uL (1.40-6.50); Platelet Count 172 K/uL (130-400); RDW Coefficient of Variation 15.3 % (11.5-14.5); RDW Standard Deviation 51.8 fL (36.4-46.3); Red Blood Count 3.74 M/uL (4.70-6.10); White Blood Count 8.04 K/ul (4.8-10.8)
--- NOTE | 2023-02-10 12:47 | XRay Report ---
XR pelvis 1-2V routine CLINICAL HISTORY: fall. Pelvic pain. Weakness. COMPARISON STUDY: None. FINDINGS: No fracture or dislocation within the pelvis or hips. The sacrum is intact. Vascular calcif ications are noted. Mild degenerative changes within the sacroiliac joints and bilateral hips. Degene rative changes also noted within the lower lumbar spine. IMPRESSION: No fracture or dislocation within the pelvis or hips. ACT 112: Negative or not required by law. Electronically signed by: Reinaldo Nunez M.D. 02/10/2023 12:46 PM
--- NOTE | 2023-02-10 13:05 | XRay Report ---
XR chest 1V portable CLINICAL HISTORY: weakness COMPARISON STUDY: Chest CT November 27, 2022. Chest radiograph November 28, 2022. FINDINGS: There is no pneumothorax or pleural effusion. Linear left basilar opacities favor atelectas is. Cardiomegaly is unchanged. No evidence for pulmonary edema. There are median sternotomy wires and mediastinal surgical clips. IMPRESSION: No acute cardiopulmonary findings. No change in appearance of the chest. ACT 112: Negative or not required by law. Electronically signed by: Ravindra Agudelo M.D. 02/10/2023 1:03 PM
[2023-02-10 13:07] LABS: Troponin I High Sensitivity 13.6 pg/ml (0-20)
--- NOTE | 2023-02-10 13:07 | CT Scan Report ---
CT head/brain wo con CLINICAL HISTORY: fall Technique: Contiguous axial CT images of the head were acquired from the base of the skull to the alma delia favio without intravenous contrast administration. Images were viewed in brain, subdural and [facility] Automated dose lowering techniques and/or adjustment according to patient size were utilized for this exam. Comparison: Comparison is made to CT head 11/27/2022 Findings: Areas of decreased attenuation are present in the periventricular and subcortical white matter bilate rally consistent with small vessel ischemic disease. Generalized cerebral atrophy with commensurate e nlargement of the ventricles, sulci, and cisterns is also present. There is no acute intracranial hem orrhage or evidence of acute territorial infarction. No shift of the midline structures, mass effect, or extra-axial abnormalities are shown. Atherosclerotic calcifications are present in the intracran ial segments of the internal carotid arteries. Imaged portions of the paranasal sinuses and mastoid air cells are clear. The orbits appear normal. There are no acute fractures of the calvaria or scalp swelling. Impression: No acute intracranial hemorrhage, no evidence of acute territorial infarction or other acute intracra nial disease process. ACT 112: Negative or not required by law. Electronically signed by: Will Cervantes M.D. 02/10/2023 1:06 PM
--- NOTE | 2023-02-10 13:10 | CT Scan Report ---
CT OF THE CERVICAL SPINE WITHOUT CONTRAST CLINICAL HISTORY: fall COMPARISON STUDY: No previous studies for comparison. TECHNIQUE: Helical axial images of the cervical spine were obtained without IV contrast. Sagittal a nd coronal reconstructions were viewed. Automated exposure control was utilized for the study. A do se lowering technique was utilized adhering to the principles of ALARA. FINDINGS: There is reversal of the cervical lordosis. There is severe disc space narrowing with exten sive osteophytosis at C3-C4. Moderate to severe disc space narrowing is noted at multiple additional levels. There is moderate multilevel facet arthrosis. No cervical spine fracture is present. There is no prevertebral edema. Facet joints are intact. IMPRESSION: 1. No acute cervical spine fracture or subluxation. 2. Moderate to severe multilevel degenerative changes within the cervical spine. ACT 112: Negative or not required by law. Electronically signed by: Ravindra Agudelo M.D. 02/10/2023 1:09 PM
[2023-02-10 13:16] LABS: Thyroid Stimulating Hormone 3.951 uIu/ml (0.300-4.500)
[2023-02-10 13:20] LABS: Albumin Level 4.1 gm/dl (3.4-5.0); Bilirubin,Total 0.7 mg/dl (0.2-1.0); Calcium 9.6 mg/dl (8.6-10.3); Potassium 4.9 mmol/L (3.5-5.1)
[2023-02-10 13:26] LABS: Albumin Globulin Ratio 1.3 (0.9-2); BUN Creatinine Ratio 19.8 (10-20); Creatinine Clr Calc Pharmacy 27.2 ml/min; Est GFR (African American) 38.1 ml/min; Est GFR (Non-African American) 32.9 ml/min; Globulin 3.2 gm/dl (2.5-4.0); Total Protein 7.3 gm/dl (6.0-8.3)
[2023-02-10] MEDS ORDERED: SODIUM CHLORIDE 0.9% 500 ML IV ONE (13:34)
--- NOTE | 2023-02-10 13:47 | History & Physical Report ---
Date of Service February 10, 2023 Assessment & Plan (1) Falls frequently: (2) KIKI (acute kidney injury): (3) Ambulatory dysfunction: (4) AF (paroxysmal atrial fibrillation): (5) Hyponatremia: Plan: 87 yo F with PMhx of Paroxysmal A-fib, CAD, HTN, DM type II, falls who presents to the hospital with weakness, falls and found to have hyponatremia and bumped creatinine on labs. Falls Possible syncope Paroxysmal Atrial Fib CABG x 18 November 2008 CAD August 2009 with ADIEL to Left circumflex, obtuse marginal, RCA with patent REYES graft, occluded saphenous vein grafts. R BBB - Admit to [facility] with tele - Last Echo was completed in Feb 2021 reviewed personally showing EF of 55%, with normal wall motion. Mild aortic valve stenosis was present. Aortic root mildly enlarged at 4 cm and proximal ascending aorta mildly enlarged to 4.1 cm. - Check 2D echo - Check orthostatics - Consult cardiology - concern for some tachy miah syndrome in EMS en route -- ER reports pt had elevated HR and then was down in the 50s, ER with concerns for pacemaker evaluation? Currently there is not vitals to note if this was afib with RVR, EKG was reviewed and showed sinus miah with 1st degree AV block. QTC is prolonged. - Pt is on aspirin and plavix - last CAD stent placement was many years ago, pt with multiple areas of ecchymosis -not a candidate for formal anticoagulation with falls - TSH 5.84, Free T4 1.1 on 01/07/23 - hgb is stable at 12.1, hct 34.6 - Head CT is negative, Cspine negative - Check MRI brain to determine if any underlying stroke with having worsened balance. Neurology consult to weight in on other neurological cause for functional decline - parkinsonian like symptoms? -PT/OT consults KIKI on CKD stage III - Cr noted to be 1.82, baseline of 1.3-1.4 - NSS ordered, trend with am labs Hyponatremia - Sodium of 132 on arrival, appears that he runs around 133-136 - pt admits to drinking large quantities of free water and sodium restriction in diet - NSS at 125 ml/hr x 1 bag - appears to be slightly dehydrated DM II - Insulin regimen: Lantus 25 U QAM, glucose 286 on admission - A1C 8.1 from 10/25/22, repeat a1c with am labs - Holding home DVT ppx: teds, scds Lines: 2 PIV GI/FEN: diet CODE: DNR/DNI Dispo: From home, lives with , likely to remain in hospital x 1-2 days History of Present Illness Chief Complaint: Weakness, falls Primary Care Provider: Carola Arrington MD This is a 87 yo M with PMhx of Paroxysmal A-fib, CAD, HTN, DM type II, falls who presents to the hospital with weakness, falls and found to have hyponatremia and bumped creatinine on labs. The patient's is with him at bedside and supports the history. Patient admits that he has fallen 3 times within the past week, and for the past month has gone on a progressive decline in functional status. He admits that upon standing he frequently gets lightheaded and dizzy and tries to walk right away and has fallen several times when this happens. However, there are also times where he is walking and gets so shaky, with progressive weakness, and feels his legs are buckling underneath him, and then falls. He has undergone treatment with PT multiple times in the past and does very well with it, and has been discharged. Within the past month has not been doing PT. notes he is incredible unsteady when getting out of the shower, and seems to be holding on to things for balance. notes that he uses a walker at baseline. Pt denies any acute infectious like symptoms, no fever, chills. Allergies Allergy/AdvReac Type Severity Reaction Status Date / Time No Known Allergies Allergy Verified 02/10/23 13:26 Home Medications Medication Instructions Recorded Confirmed Type insulin glargine 100 unit/mL (3 25 unit subcut QA 09/23/22 02/10/23 History mL) subcutaneous pen (Lantus Solostar U-100 Insulin) metformin 500 mg tablet,extended See Rx Instructions .Route .COMPLEX 09/23/22 02/10/23 History release 24 hr amiodarone 200 mg tablet 200 mg PO QAM 11/27/22 02/10/23 History aspirin 81 mg tablet,delayed 81 mg PO DAILY 11/27/22 02/10/23 History release clopidogrel 75 mg tablet 75 mg PO DAILY 11/27/22 02/10/23 History isosorbide mononitrate 120 mg 120 mg PO QAM 11/27/22 02/10/23 History tablet,extended release 24 hr ranolazine 1,000 mg 1,000 mg PO BID 11/27/22 02/10/23 History tablet,extended release,12 hr rosuvastatin 20 mg tablet 20 mg PO DAILY 11/27/22 02/10/23 History cholecalciferol (vitamin D3) 50 50 mcg PO QAM 02/10/23 02/10/23 History mcg (2,000 unit) tablet (Vitamin D3) levothyroxine 25 mcg tablet 25 mcg PO QAM 02/10/23 02/10/23 History Past Med/Surg History Medical History Acute hyponatremia CAD (coronary artery disease) Diabetes mellitus Dyslipidemia Falls Paroxysmal atrial fibrillation Surgical History History of appendectomy S/P CABG x 3 [place] [facility] [place] REYES-LAD, SVG-left circ, SVG-post desc art " Family History Other Dementia Heart disease Stroke Social History Smoking Status: Former smoker Tobacco Type: Cigarettes Second Hand Exposure: No; Do You Dip or Chew Tobacco: No; Hx Alcohol Use: No Hx Substance Use: No Preferred Language: Azerbaijani Communication Ability: Effective Analytical Lab Technician Required: No Beliefs That Will Affect Care: None Current Living Situation: Spouse Current Living Situation Comment: Lives w/ at home Feels Safe at Home: Yes Assistive Devices: Walker Review of Systems Review of Systems: Constitutional: No fever, sweats or chills Eyes: No diplopia, no worsening or blurred vision ENT: normal hearing, no trouble swallowing Respiratory: No cough, sputum, dyspnea at rest or on exertion Cardiovascular: No chest pain, tightness or palpitations Abdomen: No pain, nausea, vomiting, diarrhea or constipation Musculoskeletal: No joint pain, calf pain, swelling Neurologic: + generalized full body weakness, no numbness/tingling, + s ignificant balance problems Psychiatric: No anxiety or depression Skin: No rash or itch Physical Exam Physical Exam: General: awake, alert, no apparent distress, + thin, multiple areas of ecchymosis Head: Normocephalic, atraumatic ENT: PERRL, EOMI, no pharyngeal exudate, mucous membranes appear slightly dry Chest: Clear to auscultation, on room air, no adventitious breath sounds Cardiac: Regular rate and rhythm, no murmur, no JVD, normal peripheral pulses, good capillary refill Abdominal: NABS x 4 quadrants, soft, nondistended, nontender to palpation, no rebound or guarding Extremities: Normal inspection, no peripheral edema or erythema, calfs nontender to palpation Psych: Normal mood and affect Neuro: Appears to have pill rolling tendencies, rolling tongue in mouth throughout exam, AAO x 3, strength intact bilaterally and rated 5/5, slightly less strength in the right leg compared to left, no obvious motor deficits, intentional tremor, speech is clear, no peripheral sensory deficits Results & Data Results & Data Vital Signs (Past 12 Hours) Vital Signs Temp Pulse Pulse Resp BP BP Pulse Ox 02/10/23 12:24 62 02/10/23 12:07 36.8 C 59 L 18 132/76 95 02/10/23 12:06 97 02/10/23 12:00 36.8 C 60 18 132/76 98 O2 Del Method 02/10/23 12:24 02/10/23 12:07 Room Air 02/10/23 12:06 Room Air 02/10/23 12:00 Room Air Laboratory Results 02/10/23 02/10/23 02/10/23 11:40 11:40 11:40 WBC 8.04 RBC 3.74 L Hgb 12.1 L Hct 34.6 L MCV 92.5 MCH 32.4 MCHC 35.0 RDW Std Deviation 51.8 H RDW Coeff of Venancio 15.3 H Plt Count 172 MPV 9.8 Immature Gran % (Auto) 0.5 Neut % (Auto) 72.0 Lymph % (Auto) 19.0 Wright % (Auto) 7.8 Eos % (Auto) 0.5 Baso % (Auto) 0.2 Neut # (Auto) 5.78 Lymph # (Auto) 1.53 Wright # (Auto) 0.63 H Eos # (Auto) 0.04 Baso # (Auto) 0.02 Immature Gran # (Auto) 0.04 PT Cancelled INR Cancelled APTT Cancelled PTT Ratio Cancelled Sodium 132 L Potassium 4.9 Chloride 98 Carbon Dioxide 28 Anion Gap 6 BUN 36 H Creatinine 1.82 H Est Cr Clr Drug Dosing 27.2 Est GFR ( Amer) 38.1 Est GFR (Non-Af Amer) 32.9 BUN/Creatinine Ratio 19.8 Glucose 286 H Calcium 9.6 Magnesium 2.0 Total Bilirubin 0.7 AST 34 ALT 35 Alkaline Phosphatase 53 Total Creatine Kinase 119 Troponin I High Sens 13.6 Total Protein 7.3 Albumin 4.1 Globulin 3.2 Albumin/Globulin Ratio 1.3 TSH 3.951 Diagnostic Findings Cervical Spine CT 02/10/23 12:03 CT OF THE CERVICAL SPINE WITHOUT CONTRAST CLINICAL HISTORY: fall COMPARISON STUDY: No previous studies for comparison. TECHNIQUE: Helical axial images of the cervical spine were obtained without IV contrast. Sagittal and coronal reconstructions were viewed. Automated exposure control was utilized for the study. A dose lowering technique was utilized adhering to the principles of ALARA. FINDINGS: There is reversal of the cervical lordosis. There is severe disc space narrowing with extensive osteophytosis at C3-C4. Moderate to severe disc space narrowing is noted at multiple additional levels. There is moderate multilevel facet arthrosis. No cervical spine fracture is present. There is no prevertebral edema. Facet joints are intact. IMPRESSION: 1. No acute cervical spine fracture or subluxation. 2. Moderate to severe multilevel degenerative changes within the cervical spine. ACT 112: Negative or not required by law. Electronically signed by: Ravindra Agudelo M.D. 02/10/2023 1:09 PM Chest X-Ray 02/10/23 12:03 XR chest 1V portable CLINICAL HISTORY: weakness COMPARISON STUDY: Chest CT November 27, 2022. Chest radiograph November 28, 2022. FINDINGS: There is no pneumothorax or pleural effusion. Linear left basilar opacities favor atelectasis. Cardiomegaly is unchanged. No evidence for pulmonary edema. There are median sternotomy wires and mediastinal surgical clips. IMPRESSION: No acute cardiopulmonary findings. No change in appearance of the chest. ACT 112: Negative or not required by law. Electronically signed by: Ravindra Agudelo M.D. 02/10/2023 1:03 PM Pelvis X-Ray 02/10/23 12:03 XR pelvis 1-2V routine CLINICAL HISTORY: fall. Pelvic pain. Weakness. COMPARISON STUDY: None. FINDINGS: No fracture or dislocation within the pelvis or hips. The sacrum is intact. Vascular calcifications are noted. Mild degenerative changes within the sacroiliac joints and bilateral hips. Degenerative changes also noted within the lower lumbar spine. IMPRESSION: No fracture or dislocation within the pelvis or hips. ACT 112: Negative or not required by law. Electronically signed by: Reinaldo Nunez M.D. 02/10/2023 12:[address] 02/10/23 12:04 CT head/brain wo con CLINICAL HISTORY: fall Technique: Contiguous axial CT images of the head were acquired from the base of the skull to the vertex without intravenous contrast administration. Images were viewed in brain, subdural and bone windows. Automated dose lowering techniques and/or adjustment according to patient size were utilized for this exam. Comparison: Comparison is made to CT head 11/27/2022 Findings: Areas of decreased attenuation are present in the periventricular and subcortical white matter bilaterally consistent with small vessel ischemic disease. Generalized cerebral atrophy with commensurate enlargement of the ventricles, sulci, and cisterns is also present. There is no acute intracranial hemorrhage or evidence of acute territorial infarction. No shift of the midline structures, mass effect, or extra-axial abnormalities are shown. Atherosclerotic calcifications are present in the intracranial segments of the internal carotid arteries. Imaged portions of the paranasal sinuses and mastoid air cells are clear. The orbits appear normal. There are no acute fractures of the calvaria or scalp swelling. Impression: No acute intracranial hemorrhage, no evidence of acute territorial infarction or other acute intracranial disease process. ACT 112: Negative or not required by law. Electronically signed by: Will Cervantes M.D. 02/10/2023 1:06 PM ECG Additional Comments: 10-FEB-2023 10:34:26 [facility]-EDSTAT ROUTINE RETRIEVAL Normal sinus rhythm Possible Left atrial enlargement Borderline ECG When compared with ECG of 28-MAR-2022 02:37, Premature ventricular complexes are no longer Present 25mm/s10mm/[id number] 243CID: [id number] by: REFERRED SELF Unconfirmed Vent. rate 85 BPM MT interval 156 ms QRS duration 88 ms QT/QTc 398/473 ms Code Status & VTE Plan Code Status DNR/DNI - discussed with pt and at bedside Supervising Physician Co-Signing Physician Notes I have seen and examined the patient and have discussed the case with the provider above. I agree with the assessment and plan as stated with the following exceptions. 87-year-old diabetic man presents to the hospital with progressive falls tremulousness and weakness. Over the past 6 months he has been progressively declining in functional status with no clear cause. His expresses frustration with going to see multiple outpatient doctors and each time learning a new potential reversible factor that may require treatment but does not seem to help. She reports he was on many long-standing medications that were stopped in the last 6 months, although she cannot identify them by name. His last office visit was with an FP physician on 01/07/2023. Lab work was ordered with a slight elevation in TSH to 5.84 prompting the start of low-dose levothyroxine 25 mcg daily as the most recent change. He does have a history of coronary artery disease status post CABG in 2008, hypertension, calcific aortic valve stenosis and a right bundle branch block but was recently seen by cardiology and all of these chronic issues appear to be stable. While I was in the room his blood glucose came back at 424 before dinner. His blood pressure was 215/96. These were up from earlier in the day. His reports they do not watch what they eat and they do not check blood sugar at home. She states he needs a simple regimen because multidaily dose insulin is not something that will be easier for them to handle. Last hemoglobin A1c was 8.1 in November which is improved from 9.4 in June 2022. His blood pressure trend appears to be at goal. This current blood pressure is not reflective of where it has been earlier in the day which was 130s over 70s consistent with his baseline. As the conversation progressed his became extremely anxious. She was tearful and expressing frustration given the major changes that took place in the last 6 months including losing her job. This elevation in blood pressure is likely situational. The patient reports that he is eating well and tends to have constipation with a bowel movement every 2 to 3 days. He reports being up at night frequently needing to use the bathroom multiple times. LUTS present. We discussed consideration of Flomax/finasteride/urology follow-up but this seemed overwhelming for them. WE discussed autonomic and diabetic neuropathy as a contributor and they verbalized understanding. We discussed depression as a possible contributor, especially because he reportedly mentioned to his that he knew the changes in their life were upsetting to her. On exam he is thin and elderly. He is answering qu estions appropriately but appears to be somewhat apathetic to the conversation going on about him. He does have difficulties with purposeful movements of his extremities, for instance, when asked to bend and straighten his leg this was accomplished and strength was intact but was uncoordinated. Mucous membranes are moist, cardiac exam is unremarkable and lungs are clear to auscultation. Abdomen soft nontender nondistended. Labs/imaging/EKG reviewed. Creatinine is elevated, glucose is elevated into the 400s. Brain MRI reveals no acute infarct or intracranial hemorrhage. There is moderate atrophy and microvascular ischemic changes. Vascular dementia is within the differential diagnosis. Overall this is a complex situation with multiple ongoing factors including heavy overlying emotional component from the significant change in quality of life for this couple which adds stress to the situation. Factors including lack of sleep from nocturia, dysregulated glucose, autonomic neuropathy are contributing to his falls. It is possible there may be a progressive vascular dementia present. Neuropsychology testing as outpatient was recommended. Appreciate inpatient neurology evaluation for help with identification of the cause of his movement issues. Agree with tracking orthostatic vitals to rule out orthostatic hypotension which may be contributing. Continue telemetry monit oring to rule out occult arrhythmia. Close followup with one consistent PCP to help review his medications. DO Tommie
[2023-02-10 15:11] LABS: Appearance Urine Clear (Clear); Bacteria Urine Automated Negative (Negative); Bilirubin Urine Negative (Negative); Blood Urine Negative (Negative); Color Urine Dark Yellow; Epithelial Cell Urine Auto 20-30 /lpf (0-5); Glucose Urine UA 3+ (Negative); Ketones Urine Negative (Negative); Leukocyte Esterase Urine Negative (Negative); Nitrite Urine Negative (Negative); Protein Urine 1+ (Negative); RBC Urine Automated 0-4 /hpf (0-4); Specific Gravity Urine 1.021 (1.000-1.030); Urobilinogen Urine Negative (Negative); pH Urine 5.5 (4.5-7.5)
[2023-02-10 15:22] LABS: INR 1.1 (0.9-1.1); Prothrombin Time 11.7 Seconds (9.0-12.0)
[2023-02-10] MEDS ORDERED: GLUCOSE 10 TAB/TUBE PO PRN (17:18)
[2023-02-10] MEDS ORDERED: CARBOHYDRATES FOR HYPOGLYCEMIA PO PRN (17:18)
[2023-02-10] MEDS ORDERED: INSULIN ASPART PER UNIT CHARGE SC SCH (17:18)
[2023-02-10] MEDS ORDERED: GLUCAGON FOR INJ 1 MG VIAL SQ PRN (17:18)
[2023-02-10] MEDS ORDERED: SODIUM CHLORIDE 0.9% 1,000 ML IV SCH (17:18)
[2023-02-10] MEDS ORDERED: GLUCOSE 40% GEL 15 GM TUBE PO PRN (17:18)
[2023-02-10] MEDS ORDERED: DEXTROSE 50% 50 ML SYRINGE IV PRN (17:18)
[2023-02-10] MEDS ORDERED: ACETAMINOPHEN 325 MG TAB PO PRN (17:18)
--- NOTE | 2023-02-10 17:56 | Magnetic Resonance Report ---
Brain MRI WITHOUT CONTRAST HISTORY: Imbalance, frequent falls, r/o cva TECHNIQUE: Multiplanar multisequence MRI of the brain was performed without the use of contrast. COMPARISON STUDY: Head CT 02/10/2023. FINDINGS: There is no mass, hematoma, midline shift, or acute infarct. The ventricles and sulci demo nstrate moderate age-related involutional changes. Scattered foci of T2 hyperintensity seen within th e periventricular and subcortical white matter are nonspecific but suggestive of moderate microvascul ar ischemic changes. The major vascular flow voids at the skull base are well-maintained. Mild mucosa l thickening within the paranasal sinuses and a trace left mastoid effusion. IMPRESSION: 1. No acute infarct or intracranial hemorrhage. 2. Moderate atrophy and microvascular ischemic changes. ACT 112: Negative or not required by law. Electronically signed by: Reinaldo Nunez M.D. 02/10/2023 5:54 PM
[2023-02-10] MEDS ORDERED: hydrALAZINE HCL 20 MG/ML VIAL IV STA (18:39)
[2023-02-10] MEDS: INSULIN ASPART PER UNIT CHARGE SC SCH (20:34)
[2023-02-10] MEDS: LANTUS PER UNIT CHARGE SQ SCH (20:35)
[2023-02-11 06:15] LABS: Hematocrit (blood only) 31.4 % (42.0-52.0); Hemoglobin 11.1 g/dl (14.0-18.0); Mean Corpuscular Hemoglobin 32.5 pg (25.0-34.0); Mean Corpuscular Hgb Conc 35.4 g/dL (32.0-36.0); Mean Corpuscular Volume 91.8 fL (80.0-100.0); Mean Platelet Volume 9.3 fL (9.4-12.4); Platelet Count 132 K/uL (130-400); RDW Coefficient of Variation 15.1 % (11.5-14.5); Red Blood Count 3.42 M/uL (4.70-6.10); White Blood Count 6.41 K/ul (4.8-10.8)
[2023-02-11 06:37] LABS: BUN Creatinine Ratio 21.7 (10-20); Calcium 8.9 mg/dl (8.6-10.3); Chol HDL Ratio 2.4 (0-5); Creatinine Clr Calc Pharmacy 34.8 ml/min; Est GFR (African American) 53.3 ml/min; Potassium 4.1 mmol/L (3.5-5.1)
--- NOTE | 2023-02-11 08:14 | Cardiology Consultation ---
Date of Consultation February 11, 2023 Assessment & Plan (1) Ambulatory dysfunction: (2) Weakness: (3) AF (paroxysmal atrial fibrillation): (4) CAD (coronary artery disease): (5) Labile hypertension: Plan Patient admitted for worsening weakness, falls, ambulatory dysfunction. No reports of true LOC. Intermittent dizziness reported, particularly with positional changes. Orthostatic vital signs ordered. Hold isosorbide for now given borderline hypotension on arrival. Compression stockings advised. Consider resuming lower dose isosorbide if needed. (home dose was 120 mg) Continue amiodarone 200 mg daily to maintain NSR. He has underlying conduction system disease with RBBB, Bifascicular block, but no high degree AV block or pauses noted on telemetry Echo with preserved LVEF and no significant valvular heart disease. Continue ASA, statin, Ranolazine. He has no complaints of myalgias, just generalized weakness, but could hold statin to see if there is any improvement in his leg weakness. Monitor BP Encourage PT/OT. May need rehab. Case discussed with Dr. Cullen I spent a total of 55 minutes on the date of service in preparation, delivery, and documentation of the care provided to this patient, excluding any time spent in the performance of separately billed services. Spring Cantor PA-C Department of Cardiology, [facility] This chart was completed in part utilizing Speech Voice Recognition Software. Grammatical errors, random word insertions, pronoun errors, and incomplete sentences are an occasional consequence of this system due to software limitations, ambient noise, and hardware issues. Any formal questions or concerns about the content, text, or information contained within the body of this dictation should be directly addressed to the provider for clarification. Supervising Physician Co-Signing Physician Notes Supervising Physician Attestation: I have personally performed a history and physical examination on the patient. I agree with the physician assistant project manager's findings and plan as documented with the following additions. Subjective: No complaints at present. Exam: Cardiovascular: Regular rate, no murmurs Data: Telemetry reveals sinus bradycardia in the range of 50 to 60 bpm. EKG reveals sinus bradycardia 50 bpm with first-degree block, and bifascicular block. Assessment and Plan: The patient has underlying conduction system disease, presentation suggests dysfunction perhaps is not related to arrhythmia. Noted about blood pressure readings observed. Isosorbide mononitrate for now. Monitor cardiac rhythm on low-dose amiodarone. I spent a total of 15 minutes on the date of service in preparation, delivery, and documentation of the care provided to this patient, excluding any time spent in the performance of separately billed services. Thomas Cullen, History of Present Illness Reason for Consultation: weakness/falls; questionable syncope; Requesting Physician: Ms. Claudia Mackay/Dr. Reilly Attending Physician: Dr. Cullen History of Present Illness Patient is a 87 year old male known to [facility] cardiologyNicko/Dr. Lozano. History includes: 1. Atherosclerotic coronary disease status post coronary bypass grafting November of 2008 for diffuse coronary disease, receiving REYES graft to LAD, saphenous vein graft to left circumflex, saphenous vein graft to the posterior descending artery. 2. Coronary intervention August of 2009, receiving drug-eluting stent to the left circumflex, obtuse marginal, and right coronary artery with patent REYES graft, occluded saphenous vein grafts 3. Cardiac catheterization 2011 without progression of disease, branch vessel marginal disease and chronic right coronary occlusion 4. 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 5. Hypertension. 6. Hyperlipidemia. 7. Mild nonrheumatic, calcific aortic valve stenosis 8. Right bundle-branch block 9. CKD stage 3 Patient admitted after a recurrent fall yesterday. reports multiple frequent falls and significant weakness/gait instability over the last few months, worse over the last few weeks. Patient was doing physical therapy, but uncertain this was helping. He admits to intermittent dizziness, specifically with standing and positional changes. She feels his falls are related to instability. No LOC reported. BP is typically well controlled. BP has been labile with high/low readings since admission. Isosorbide held due to borderline hypotension. EKG with conduction system disease but demonstrates NSR with chronic RBBB. No pauses or arrhythmias on telemetry. At time of consult, patient resting in bed comfortably. at bedside. He was out of bed once this morning and denies dizziness. Reports his muscles feel weak and wobbly. No chest pain or dyspnea. No orthopnea, PND or edema. No palpitations or tachypalpitations . Allergies Allergy/AdvReac Type Severity Reaction Status Date / Time No Known Allergies Allergy Verified 02/10/23 13:26 Home Medications Medication Instructions Recorded Confirmed Type insulin glargine 100 unit/mL (3 25 unit subcut QAM 09/23/22 02/10/23 History mL) subcutaneous pen (Lantus Solostar U-100 Insulin) metformin 500 mg tablet,extended See Rx Instructions .Route .COMPLEX 09/23/22 02/10/23 History release 24 hr amiodarone 200 mg tablet 200 mg PO QAM 11/27/22 02/10/23 History aspirin 81 mg tablet,delayed 81 mg PO DAILY 11/27/22 02/10/23 History release clopidogrel 75 mg tablet 75 mg PO DAILY 11/27/22 02/10/23 History isosorbide mononitrate 120 mg 120 mg PO QAM 11/27/22 02/10/23 History tablet,extended release 24 hr ranolazine 1,000 mg 1,000 mg PO BID 11/27/22 02/10/23 History tablet,extended release,12 hr rosuvastatin 20 mg tablet 20 mg PO DAILY 11/27/22 02/10/23 History cholecalciferol (vitamin D3) 50 50 mcg PO QAM 02/10/23 02/10/23 History mcg (2,000 unit) tablet (Vitamin D3) levothyroxine 25 mcg tablet 25 mcg PO QAM 02/10/23 02/10/23 History Patient History Medical History Acute hyponatremia CAD (coronary artery disease) Diabetes mellitus Dyslipidemia Falls Paroxysmal atrial fibrillation Surgical History History of appendectomy S/P CABG x 3 "s/p CABG [facility] [place] REYES-LAD, SVG-left circ, SVG-post desc art " Family History Other Dementia Heart disease Stroke Social History Smoking Status: Former smoker Tobacco Type: Cigarettes Second Hand Exposure: No; Do You Dip or Chew Tobacco: No; Hx Alcohol Use: No Hx Substance Use: No Preferred Language: Comoran Communication Ability: Effective Microsoft Exchange Architect Required: No Beliefs That Will Affect Care: None Current Living Situation: Spouse Current Living Situation Comment: Lives w/ at home current occupational status: retired 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85 Feels Safe at Home: Yes Assistive Devices: Walker Review of Systems Review of Systems: All systems reviewed & are unremarkable except as noted in HPI & below Physical Exam Constitutional: + thin; no acute distress ecchymosis of the face and neck from fall Respiratory: normal respiratory effort, lungs clear to auscultation Cardiovascular: Rate/Rhythm: regular rate and regular rhythm Heart Sounds: normal S1, normal S2 and + murmur (soft I/ systolic murmur) Vessels: no JVD Extremities: no edema Gastrointestinal (Abdomen): normal bowel sounds, soft, nontender, no hepatosplenomegaly Neurologic: PERRL, EOMI, accommodation nl, no face palsy, no dysarthria Results & Data Vital Signs (Past 12 Hours) Vital Signs Temp Pulse Pulse Resp BP Pulse Ox O2 Del Method 02/11/23 07:44 36.7 C 63 18 165/80 H 97 Room Air 02/11/23 07:23 62 02/11/23 04:00 36.6 C 65 18 158/74 H 97 Room Air 02/10/23 23:35 67 02/10/23 23:19 36.6 C 61 18 109/55 L 98 Room Air Laboratory Results Cardiac Enzymes 02/10/23 Range/Units 11:40 AST 34 (13-39) U/L Troponin I High Sens 13.6 (0-20) pg/ml Coagulation 02/10/23 02/10/23 Range/Units 11:40 14:03 PT Cancelled 11.7 APTT Cancelled 28.0 Lipids 02/11/23 Range/Units 05:43 Triglycerides 90 (0-150) mg/dl Cholesterol 96 (0-200) mg/dl HDL Cholesterol 40 mg/dl Cholesterol/HDL Ratio 2.4 (0-5) CBC 02/10/23 02/11/23 Range/Units 11:40 05:43 WBC 8.04 6.41 (4.8-10.8) K/ul RBC 3.74 L 3.42 L (4.70-6.10) M/uL Hgb 12.1 L 11.1 L (14.0-18.0) g/dl Hct 34.6 L 31.4 L (42.0-52.0) % Plt Count 172 132 (130-400) K/uL Neut # (Auto) 5.78 (1.40-6.50) K/uL Lymph # (Auto) 1.53 (1.20-3.40) K/uL Lipscomb # (Auto) 0.63 H (0.11-0.59) K/uL Eos # (Auto) 0.04 (0.00-0.50) K/uL Baso # (Auto) 0.02 (0.00-0.20) K/uL Comprehensive Metabolic Panel 02/10/23 02/11/23 Range/Units 11:40 05:43 Sodium 132 L 135 L (136-145) mmol/L Potassium 4.9 4.1 (3.5-5.1) mmol/L Chloride 98 105 (98-107) mmol/L Carbon Dioxide 28 27 (21-32) mmol/L BUN 36 H 30 H (6-23) mg/dl Creatinine 1.82 H 1.38 D (0.6-1.4) mg/dl Glucose 286 H 111 H (70-99(Fasting)) mg/dl Calcium 9.6 8.9 (8.6-10.3) mg/dl AST 34 (13-39) U/L ALT 35 (7-52) U/L Alkaline Phosphatase 53 (34-104) U/L Total Protein 7.3 (6.0-8.3) gm/dl Albumin 4.1 (3.4-5.0) gm/dl Intake and Output 02/10/23 02/11/23 02/11/23 22:59 06:59 14:59 Intake Total 189.583 / 1489.583 0 / 1489.583 Output Total 450 / 1100 650 / 1100 Balance -260.417 / 389.583 -650 / 389.583 Intake: IV 89.583 / 1389.583 Oral 100 / 100 0 / 100 Output: Urine Amount (Catheter) 450 / 1100 650 / 1100 External 450 / 1100 650 / 1100 Other: Weight 64 kg Weight Measurement Method Built in [facility] Diagnostic Findings Telemetry reviewed: Normal sinus rhythm. Chronic Intraventricular conduction delay. No arrhythmias noted. EKG reviewed Sinus bradycardia with 1st degree A-V block Right bundle branch block Left posterior fascicular block Bifascicular block Inferior infarct , age undetermined Compared with recent outpatient EKG in December 2022, no significant changes noted Echo report reviewed from current admission, Jan 2023: Mild concentric LVH LV wall motion is normal LV systolic function is normal LV EF 60-65% LA is mildly dilated Grade I diastolic dysfunction Mild aortic root dilatation. Brain MRI report reviewed from current admission: IMPRESSION: 1. No acute infarct or intracranial hemorrhage. 2. Moderate atrophy and microvascular ischemic changes. Chest xray report reviewed from current admission: No acute findings. Echo report reviewed from September 2022 at [facility]: EF 65-70% Mild concentric LVH LA is moderately dilated Aortic valve sclerosis moderate without significant aortic valvular stenosis. Mild TR No pulm hypertension noted Echo report reviewed dated Feb 2021: Interpretation Summary The examination is adequate to evaluate the referral indication. The LV wall thickness is mildly increased (concentric). The left ventricular wall motion is normal. The qualitative LV ejection fraction is 55-59% (normal). The left ventricular diastolic function is mildly abnormal (grade I). Mild aortic valve stenosis is present. Mild tricuspid regurgitation is present. There is no evidence of pulmonary hypertension. The aortic root is mildly enlarged with diameter of 4 cm. The proximal ascending thoracic aorta is mildly enlarged with diameter of 4.1 cm. Compared to the report of the prior study dated 01/22/19, there has been no significant interval change Medications Administered Current Inpatient Medications Acetaminophen (Acetaminophen 325 Mg Tab) 650 mg PO Q4H PRN PRN Reason: Moderate Pain (Scale 4, 5, 6) Stop: 03/12/23 17:17 Amiodarone HCl (Amiodarone 200 Mg Tab) 200 mg PO QAM [facility] Stop: 03/13/23 08:59 Aspirin (Aspirin 81 Mg Ectab) 81 mg PO DAILY [facility] Stop: 03/13/23 08:59 Clopidogrel Bisulfate (Clopidogrel Bisulfate 75 Mg Tab) 75 mg PO DAILY [facility] Stop: 03/13/23 08:59 Dextrose (Dextrose 50% 50 Ml Syringe) 25 - 50 ml IV UD PRN; Protocol PRN Reason: Hypoglycemia Protocol Stop: 03/12/23 17:17 Glucagon (Glucagon For Inj 1 Mg Vial) 1 mg SQ UD PRN; Protocol PRN Reason: Hypoglycemia Protocol Stop: 03/12/23 17:17 Glucose (Glucose 10 Tab/Tube) 4 - 8 tab PO UD PRN; Protocol PRN Reason: Hypoglycemia Treatment Stop: 03/12/23 17:17 Glucose (Glucose 40% Gel 15 Gm Tube) 15 - 30 gm PO UD PRN; Protocol PRN Reason: Hypoglycemia Protocol Stop: 03/12/23 17:17 Sodium Chloride (Nss) 1,000 mls @ 125 mls/hr IV .Q8H [facility] Last Infusion: 02/10/23 19:12 Dose: Infused Insulin Aspart (Insulin Aspart Per Unit Charge) 0 units SC ACHS [facility] Stop: 03/12/23 20:59 Last Admin: 02/11/23 08:49 Dose: 5 units Insulin Glargine (Lantus Per Unit Charge) 10 units SQ BID [facility] Stop: 03/12/23 20:59 Last Admin: 02/10/23 20:35 Dose: 10 units Levothyroxine Sodium (Levothyroxine Sodium 25 Mcg Tablet) 25 mcg PO DAILYBB [facility] Stop: 03/13/23 08:59 Miscellaneous (Carbohydrates For Hypoglycemia ) 15 - 30 gm PO UD PRN PRN Reason: Hypoglycemia Protocol Stop: 03/12/23 17:17 Ranolazine (Ranolazine 500 Mg Er Tab) 1,000 mg PO BID [facility] Stop: 03/13/23 08:59 Rosuvastatin Calcium (Rosuvastatin Calcium 20 Mg Tab) 20 mg PO DAILY [facility] Stop: 03/13/23 08:59 Vitamin D (Cholecalciferol 1,000 Units 25 Mcg Tab) 2,000 units PO QAM [facility] Stop: 03/13/23 08:59
[2023-02-11 08:48] LABS: Estimated Average Glucose 189 mg/dl; Hemoglobin A1C 8.2 % (4.5-5.6)
[2023-02-11] MEDS: INSULIN ASPART PER UNIT CHARGE SC SCH ×4 (08:49→20:44)
[2023-02-11] MEDS: LANTUS PER UNIT CHARGE SQ SCH ×2 (08:54→20:43)
[2023-02-11] MEDS: ROSUVASTATIN CALCIUM 20 MG TAB PO SCH (09:20)
[2023-02-11] MEDS: LEVOTHYROXINE SODIUM 25 MCG TABLET PO SCH (09:20)
[2023-02-11] MEDS: AMIODARONE 200 MG TAB PO SCH (09:20)
[2023-02-11] MEDS: RANOLAZINE 500 MG ER TAB PO SCH ×2 (09:20→20:44)
[2023-02-11] MEDS: CHOLECALCIFEROL 1,000 UNITS 25 MCG TAB PO SCH (09:58)
[2023-02-11] MEDS: ASPIRIN 81 MG ECTAB PO SCH (09:58)
[2023-02-11] MEDS: CLOPIDOGREL BISULFATE 75 MG TAB PO SCH (10:26)
--- NOTE | 2023-02-11 13:03 | Neurology Consultation ---
Date of Consultation February 11, 2023 Assessment & Plan (1) Ambulatory dysfunction: (2) Weakness: Plan Patient has a progressive gait disturbance with progressive falling likely from weakness of the muscles. On examination he has signs of peripheral neuropathy (absent reflexes and distal wasting of small muscles in the hands and feet) and myopathy (some proximal weakness in the upper extremities). I do note frequent diffuse fasciculations in the hands and feet. I can not exclude a motor neuron disorder although this could be just secondary to severe neuro myopathy. He has a significant diabetes condition which could lead to a prominent polyneuropathy. Although I do not see any upper motor neuron signs, these could be masked by the severe polyneuropathy. I do not believe his gait disturbance is otherwise central (brain). Does not have dementia or history of stroke. His moderate old small-vessel ischemic disease, however, could lead to some balance issues. His steppage gait is reminiscent of footdrop from tibialis anterior weakness. Recommendations: 1. MRI of the cervical spine without contrast to evaluate for cord compression 2. He needs EMG nerve conduction studies of at least 2 limbs (preferably 4). Unfortunately, I can not do an EMG as an inpatient and he would need to be scheduled as an outpatient. 3. We could consider an LP 4. B12, ESR, CK, aldolase, CRP, ERNIE 12 , and Lyme antibody titers if not done 5. Physical and occupational therapy Overall, I spent a total of 60 minutes with this case including review of records, review of MRI films, direct evaluation the patient at bedside, and discussion of the case with the patient and at bedside, RN at bedside, and Dr. Correia, including differential diagnosis and treatment options. History of Present Illness Reason for Consultation: Patient is an 87-year-old, accompanied by his spouse at bedside, who I was asked to see the request of Dr Reilly, for neurologic consultation regarding falling and weakness Requesting Physician: Dr. Reilly Attending Physician: Davion Correia MD History of Present Illness This patient has a history of atrial fibrillation and some tachy/Jj cardiac dysrhythmia with coronary disease post coronary artery bypass graft. He has longstanding history of diabetes on insulin and metformin. He has been on 81 mg aspirin and 75 mg clopidogrel daily. Starting in early September of 2022 he began having falling. Says this stayed the same as far as frequency over the ensuing months although his believes that over the last 3 weeks his gait and walking and falling have been much worse. He denies any pain or numbness but is merely weakness in his legs collapse as he tries to fall. He does have some incontinence of urine over the last couple of months but this is because he can not make it to the bathroom in time when he feels urgency. He has no incontinence of stool. He denies any lightheadedness or dizziness. He has no headaches, vision problems, cognitive issues, or speech problems. He has no swallowing issues and is not choking on liquids or solids. He denies cervical spine or lumbar spine pain of significance. He feels that his arms and legs are weak symmetrically bilaterally but it may be weaker more proximally than distally. He arrived to the emergency room on February 10 afebrile with a blood pressure 132/76. CBC showed mild anemia. Chem profile showed a glucose of 286 with a TSH of 3.9. Urinalysis and fasting lipid profile were unremarkable. He was weak on examination. CT scan of the head was unremarkable. Chest x-ray was unremarkable. CT of the cervical spine showed moderate to severe multilevel degenerative disc changes. MRI of the brain showed moderate generalized cerebral and cerebellar atrophy with moderate old small-vessel ischemic disease. There was no acute stroke. Allergies Allergy/AdvReac Type Severity Reaction Status Date / Time No Known Allergies Allergy Verified 02/10/23 13:26 Home Medications Medication Instructions Recorded Confirmed Type insulin glargine 100 unit/mL (3 25 unit subcut QAM 09/23/22 02/10/23 History mL) subcutaneous pen (Lantus Solostar U-100 Insulin) metformin 500 mg tablet,extended See Rx Instructions .Route .COMPLEX 09/23/22 02/10/23 History release 24 hr amiodarone 200 mg tablet 200 mg PO QAM 11/27/22 02/10/23 History aspirin 81 mg tablet,delayed 81 mg PO DAILY 11/27/22 02/10/23 History release clopidogrel 75 mg tablet 75 mg PO DAILY 11/27/22 02/10/23 History isosorbide mononitrate 120 mg 120 mg PO QAM 11/27/22 02/10/23 History tablet,extended release 24 hr ranolazine 1,000 mg 1,000 mg PO BID 11/27/22 02/10/23 History tablet,extended release,12 hr rosuvastatin 20 mg tablet 20 mg PO DAILY 11/27/22 02/10/23 History cholecalciferol (vitamin D3) 50 50 mcg PO QAM 02/10/23 02/10/23 History mcg (2,000 unit) tablet (Vitamin D3) levothyroxine 25 mcg tablet 25 mcg PO QAM 02/10/23 02/10/23 History Patient History Medical History Acute hyponatremia CAD (coronary artery disease) Diabetes mellitus Dyslipidemia [place] Paroxysmal atrial fibrillation Surgical History History of appendectomy S/P CABG x 3 "s/p CABG [facility] 2008 REYES-LAD, SVG-left circ, SVG-post desc art " Family History Other Dementia Heart disease Stroke Social History Smoking Status: Former smoker Tobacco Type: Cigarettes Second Hand Exposure: No; Do You Dip or Chew Tobacco: No; Hx Alcohol Use: No Hx Substance Use: No Preferred Language: Pakistani Communication Ability: Effective Tie Carrier Required: No Beliefs That Will Affect Care: None Current Living Situation: Spouse Current Living Situation Comment: Lives w/ at home 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 occupational status: 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85 Feels Safe at Home: Yes Assistive Devices: Walker Review of Systems Constitutional: + weakness; no fever and no fatigue Eyes: no diplopia, no eye pain and no worsening vision Ear, Nose, Mouth, Throat: no ear pain, no tinnitus, no hearing loss, no diz ziness, no snoring, no hoarseness and no dysphagia Respiratory: no cough and no dyspnea Cardiovascular: no chest pain, no palpitations and no lightheadedness Gastrointestinal: no abdominal pain, no nausea and no vomiting Musculoskeletal: no back pain, no neck pain, no radicular pain, no joint pain and no myalgia Integumentary: no rash and no lesions Neurologic: + gait abnormality and + generalized weakness; no localized weakness, no tingling, no numbness, no tremor(s), no abnormal movements, no headache(s), no abnormal speech, no confusion and no memory loss Psychiatric: no depression, no irritability, no anxiety, no difficulty concentrating, no confusion and no hallucinations Endocrine: no fatigue and no flushing Hematologic / Lymphatic: no easy bleeding and no easy bruising Allergy / Immunological: no urticaria and no problem reported Exam (Neuro) Physical Exam: The patient is right-handed. The patient is awake, alert, and attentive. Speech is normal without any aphasia or dysarthria. The patient can name objects, repeat phrases, and has normal spontaneous speech. Mentation and thought processes are intact, with orientation to person, place and time, and normal fund of knowledge. Attention and concentration are normal. Mood and affect are normal and appropriate. General appearance and grooming are normal. Short and long-term memory are intact. Pupils are 4 mm bilaterally and reactive to light. Extraocular eye muscles are intact without nystagmus. Visual acuity and visual newell seem normal grossly to confrontation. There are no deficits to sensation in the face in all 3 distributions of the fifth cranial nerve bilaterally. Corneal reflexes are positive bilaterally. Facial strength and symmetry was normal bilaterally. Hearing seems normal bilaterally. Palate moves well without asymmetry. There is normal sternocleidomastoid and trapezius (shoulder shrug) strength bilaterally. Tongue is midline with good strength bilaterally. Neck has a full range of motion without discomfort. There are no cervical bruits bilaterally. There are no cranial or ocular bruits. Heart is without murmur. There is a regular rhythm and rate. Cervical, thoracic, and lumbar spine are nontender to palpation. Gait is narrow based but very unstable. He had some steppage gait right greater than left leg and he scissored once. He had the assistance of 2 people helping do this. His turns and walking very slow and deliberate With outstretched arms there is no drift. There are no resting, postural, or action tremors. There is no ataxia with finger to nose testing. There is good facility in the hands. No other abnormal involuntary movements are noted. Motor strength is 4/5 proximally in the arms with the left side being a little weaker than the right. This included deltoid, biceps, and triceps. Distally, he was close to 4/5 also. In the legs, his proximal strength was 5/5 and distally he was closer to 4/5 bilaterally. The limbs have good tone without rigidity or spasticity. There was no tenderness to palpation of the muscles but he was thin throughout with considerable distal atrophy of small muscles in the hands and feet bilaterally. Tone was reasonable in the muscles and he had obvious, frequent fasciculations in the hands and feet as well as the tibialis anterior muscle bilaterally. Sensory examination is intact to touch and pin throughout all 4 limbs diffusely. Reflexes are 0/4 in the triceps, brachioradialis, quadriceps, and Achilles tendons bilaterally. Biceps tendon reflexes were 1/4 bilaterally. There is no clonus bilaterally. Toes are downgoing with plantar stimulation bilaterally. Peripheral pulses are present and of normal quality distally in all 4 limbs. There is no peripheral edema noted in the limbs. Results & Data Vital Signs (Past 12 Hours) Vital Signs Temp Pulse Pulse Resp BP Pulse Ox Pulse Ox 02/11/23 12:22 36.8 C 58 L 14 136/72 97 02/11/23 09:33 02/11/23 08:00 98 02/11/23 07:44 36.7 C 63 18 165/80 H 97 02/11/23 07:23 62 02/11/23 04:00 36.6 C 65 18 158/74 H 97 O2 Del Method O2 Del Method 02/11/23 12:22 Room Air 02/11/23 09:33 Room Air 02/11/23 08:00 Room Air 02/11/23 07:44 Room Air 02/11/23 07:23 02/11/23 04:00 Room Air PG Care Time/CCT Total # of Minutes Spent Total Time Spent with Patient: Total time spent is greater than 50% in coordination of care (as documented) at patient's floor/unit and/or counseling patient: Coding Level of Care Code 29327 IN/OBS CONSULT LVL 4,60M Diagnoses Ambulatory dysfunction R26.2 Weakness R53.1 Time Spent (min) 60
--- NOTE | 2023-02-11 14:39 | Hospitalist Progress Note ---
Date of Service February 11, 2023 Assessment & Plan (1) Falls frequently: (2) KIKI (acute kidney injury): (3) Ambulatory dysfunction: (4) AF (paroxysmal atrial fibrillation): (5) Hyponatremia: Plan: per admitting service notes with addendum: 87 yo F with PMhx of Paroxysmal A-fib, CAD, HTN, DM type II, falls who presents to the hospital with weakness, falls and found to have hyponatremia and bumped creatinine on labs. Falls Paroxysmal Atrial Fib CABG x 18 November 2008 CAD August 2009 with ADIEL to Left circumflex, obtuse marginal, RCA with patent REYES graft, occluded saphenous vein grafts. R BBB - Admit [facility] with tele - Last Echo was completed in Feb 2021 reviewed personally showing EF of 55%, with normal wall motion. Mild aortic valve stenosis was present. Aortic root mildly enlarged at 4 cm and proximal ascending aorta mildly enlarged to 4.1 cm. - Check 2D echo - Check orthostatics - Consult cardiology - concern for some tachy miah syndrome in EMS en route -- ER reports pt had elevated HR and then was down in the 50s, ER with concerns for pacemaker evaluation? Currently there is not vitals to note if this was afib with RVR, EKG was reviewed and showed sinus miah with 1st degree AV block. QTC is prolonged. - Pt is on aspirin and plavix - last CAD stent placement was many years ago, pt with multiple areas of ecchymosis -not a candidate for formal anticoagulation with falls - TSH 5.84, Free T4 1.1 on 01/07/23 - hgb is stable at 12.1, hct 34.6 - Head CT is negative, Cspine negative - Check MRI brain to determine if any underlying stroke with having worsened balance. Neurology consult to weight in on other neurological cause for functional decline - parkinsonian like symptoms? -PT/OT consults 02/11 Brain MRI: No acute process Cardiology service consulted Recommend holding isosorbide given borderline hypotension Continue amiodarone Monitor orthostatic vital signs Continue IV fluids Neurologist consulted Recommend cervical spine MRI to rule out cord compression Needs EMG nerve conduction studies as an outpatient Consider LP Check vitamin B12, ESR, CK, aldolase, CRP, ERNIE, Lyme antibody titers KIKI on CKD stage III - Cr noted to be 1.82, baseline of 1.3-1.4 - NSS ordered, trend with am labs 02/11 resolved Hyponatremia - Sodium of 132 on arrival, appears that he runs around 133-136 - pt admits to drinking large quantities of free water and sodium restriction in diet - NSS at 125 ml/hr x 1 bag Na 132 --> 135 DM II - Insulin regimen: Lantus 25 U QAM, glucose 286 on admission - A1C 8.1 from 10/25/22, DVT ppx: teds, scds Lines: 2 PIV GI/FEN: HH diet CODE: DNR/DNI Dispo: From home, lives with , likely to remain in hospital x 1-2 days Admission and Anticipated Discharge Date Admission Date: February 10, 2023 Subjective Follow-up for falls, etc. Seen resting in bed, comfortable, no distress, good spirits States he feels better than yesterday Ambulating to the bathroom, no dizziness, lightheadedness Denies chest pain, shortness of breath No other new symptoms Review of Systems Review of Systems: all noted and negative except for above Physical Exam Physical Exam: General- oriented x 3, not in distress, speaks in sentences with no effort or accessory muscle use Eyes- anicteric Neck- no JVD Lungs- clear breath sounds bilaterally, no rales/wheezes Heart- normal rate, regular rhythm; no murmurs Abdomen- normal bowel sounds, nondistended, soft, nontender Extremities- no pretibial edema, no calf tenderness Neuro- alert, oriented x 3; no gross focal neurologic deficits Skin- warm & dry Results & Data Results & Data Vital Signs (Past 12 Hours) Vital Signs Temp Pulse Pulse Resp BP Pulse Ox Pulse Ox 02/11/23 12:22 36.8 C 58 L 14 136/72 97 02/11/23 09:33 02/11/23 08:00 98 02/11/23 07:44 36.7 C 63 18 165/80 H 97 02/11/23 07:23 62 02/11/23 04:00 36.6 C 65 18 158/74 H 97 O2 Del Method O2 Del Method 02/11/23 12:22 Room Air 02/11/23 09:33 Room Air 02/11/23 08:00 Room Air 02/11/23 07:44 Room Air 02/11/23 07:23 02/11/23 04:00 Room Air all noted and reviewed including below
[2023-02-12 06:27] LABS: Basophils # (auto) 0.03 K/uL (0.00-0.20); Basophils % (auto) 0.5 %; Eosinophils % (auto) 1.7 %; Hematocrit (blood only) 34.4 % (42.0-52.0); Hemoglobin 12.2 g/dl (14.0-18.0); Immature Granulocytes # (auto) 0.03 K/uL (0.01-0.20); Immature Granulocytes % (auto) 0.5 %; Lymphocytes # (auto) 1.68 K/uL (1.20-3.40); Lymphocytes % (auto) 28.4 %; Mean Corpuscular Hemoglobin 32.3 pg (25.0-34.0); Mean Corpuscular Hgb Conc 35.5 g/dL (32.0-36.0); Mean Platelet Volume 9.1 fL (9.4-12.4); Monocytes # (auto) 0.57 K/uL (0.11-0.59); Monocytes % (auto) 9.6 %; Neutrophils % (auto) 59.3 %; Platelet Count 135 K/uL (130-400); RDW Coefficient of Variation 15.2 % (11.5-14.5); RDW Standard Deviation 50.6 fL (36.4-46.3); Red Blood Count 3.78 M/uL (4.70-6.10); White Blood Count 5.91 K/ul (4.8-10.8)
[2023-02-12] MEDS: LEVOTHYROXINE SODIUM 25 MCG TABLET PO SCH (06:30)
[2023-02-12 06:58] LABS: C Reactive Protein 0.66 mg/dl (0-0.5); Est GFR (African American) 60.6 ml/min; Est GFR (Non-African American) 52.3 ml/min; Potassium 3.9 mmol/L (3.5-5.1)
[2023-02-12 07:30] LABS: Lyme Ab IgG w/WB Rflx Negative (Negative); Lyme Ab IgM w/WB Rflx Negative (Negative)
--- NOTE | 2023-02-12 07:44 | Magnetic Resonance Report ---
CERVICAL SPINE MRI HISTORY: Neck injury. falls TECHNIQUE: Multiplanar multisequence MRI of the cervical spine was performed without the use of contr ast. COMPARISON STUDY: Cervical spine CT 02/10/2023. FINDINGS: Mild motion artifact. There is mild reversal of the normal lordotic curvature within the up per cervical spine. This is secondary to the 2 mm of retrolisthesis of C3 on C4 and C4 on C5. This re anjali unchanged. There is severe disc space narrowing at C3-C4, C4-C5, and C6-C7. There is moderate d isc space narrowing at C5-C6. Prevertebral soft tissues and the C1-C2 interval are intact. The visual ized posterior fossa is unremarkable. No acute fractures within the cervical spine. [id number] facet degenerative changes throughout the cervical spine. Suboptimal evaluation of the cervical spinal cord is motion artifact. However, the cervical spinal co rd appears to demonstrate a normal signal intensity. C2-C3: No significant central canal or neural foraminal narrowing. C3-C4: Broad-based posterior disc osteophyte complex which abuts and results in mild to moderate cord deformity with [id number] central canal narrowing. The AP diameter is 7 mm. There is severe bi lateral neural foraminal narrowing due to the uncovertebral and facet hypertrophy. C4-C5: Broad-based posterior disc osteophyte complex which abuts the anterior cord and results in mil d to moderate cord deformity. There is moderate to severe central canal narrowing with an AP diameter of 5 mm. There is severe left and moderate to severe right neural foraminal narrowing due to the unc overtebral and facet hypertrophy. C5-C6: Broad-based posterior disc osteophyte complex resulting in mild central canal and mild right-s ided neural foraminal narrowing. There is severe left-sided neural foraminal narrowing due to the unc overtebral and facet hypertrophy. C6-C7: Broad-based posterior disc bulge which abuts and slightly deforms anterior cord with moderate central canal narrowing demonstrating an AP diameter of 6 mm. There is severe bilateral neural forami nal narrowing due to the uncovertebral and facet hypertrophy. C7-T1: No significant central canal or neural foraminal narrowing. IMPRESSION: 1. No acute fractures within the cervical spine. 2. Moderate to severe multilevel degenerative changes as described above most pronounced at the C3-C4 , C4-C5 and C6-C7 levels. ACT 112: Negative or not required by law. Electronically signed by: Reinaldo Nunez M.D. 02/12/2023 7:42 AM
--- NOTE | 2023-02-12 09:21 | Hospitalist Progress Note ---
Date of Service February 12, 2023 Assessment & Plan (1) Falls frequently: (2) KIKI (acute kidney injury): (3) Ambulatory dysfunction: (4) AF (paroxysmal atrial fibrillation): (5) Hyponatremia: Plan: per admitting service notes with addendum: 87 yo F with PMhx of Paroxysmal A-fib, CAD, HTN, DM type II, falls who presents to the hospital with weakness, falls and found to have hyponatremia and bumped creatinine on labs. Falls Paroxysmal Atrial Fib CABG x 18 November 2008 CAD August 2009 with ADIEL to Left circumflex, obtuse marginal, RCA with patent REYES graft, occluded saphenous vein grafts. R BBB - monitor on tele - Last Echo was completed in Feb 2021 reviewed personally showing EF of 55%, with normal wall motion. Mild aortic valve stenosis was present. Aortic root mildly enlarged at 4 cm and proximal ascending aorta mildly enlarged to 4.1 cm. - Checked 2D echo -mild concentric LVH. LV wall motion is normal. LV systolic function is normal. LVEF 60 to 65%. Left atrium is mildly dilated. Grade 1 diastolic function. Mild aortic root dilatation. - Check orthostatics - Consulted cardiology - concern for some tachy miah syndrome in EMS en route -- ER reports pt had elevated HR and then was down in the 50s, ER with concerns for pacemaker evaluation? EKG was reviewed and showed sinus miah with 1st degree AV block. QTC is prolonged. - Pt is on aspirin and plavix - last CAD stent placement was many years ago, pt with multiple areas of ecchymosis -not a candidate for formal anticoagulation with falls - TSH 5.84, Free T4 1.1 on 01/07/23 - hgb is stable at 12.1, hct 34.6 - Head CT is negative, Cspine negative - Check MRI brain to determine if any underlying stroke with having worsened balance. Neurology consult to weight in on other neurological cause for functional decline - parkinsonian like symptoms? -PT/OT consults 02/11 Brain MRI: No acute process Cardiology service consulted Recommend holding isosorbide given borderline hypotension Continue amiodarone Monitor orthostatic vital signs Continue IV fluids Neurologist consulted Recommend cervical spine MRI - 1. No acute fractures within the cervical spine. 2. Moderate to severe multilevel degenerative changes as described above most pronounced at the C3-C4, C4-C5 and C6-C7 levels.- orthopedic spine consult regarding his MRI of the cervical spine Needs EMG nerve conduction studies as an outpatient Check vitamin B12, ESR, CK, aldolase, CRP, ERNIE, Lyme antibody titers (negative) Per neurology - Patient has a progressive gait disturbance with progressive falling likely from weakness of the muscles. On examination he has signs of peripheral neuropathy (absent reflexes and distal wasting of small muscles in the hands and feet) and myopathy (some proximal weakness in the upper extremities). I do note frequent diffuse fasciculations in the hands and feet. 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 He has a significant diabetes condition which could lead to a prominent polyneuropathy. Although I do not see any upper motor neuron signs, these could be masked by the severe polyneuropathy CK and sed rate were unremarkable and with his improvement on exam today I do not believe there is any evidence of an active inflammatory myopathy The patient does not have dementia or history of stroke. His moderate old small-vessel ischemic disease, however, could lead to some balance issues. His steppage gait is reminiscent of footdrop from tibialis anterior weakness. 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 This could be causing a myelopathy and a gait disturbance. KIKI on CKD stage III - Cr noted to be 1.82, baseline of 1.3-1.4 - NSS ordered, trend with am labs - resolved Hyponatremia - Sodium of 132 on arrival, appears that he runs around 133-136 - pt admits to drinking large quantities of free water and sodium restriction in diet - NSS at 125 ml/hr x 1 bag Na 132 --> 135 DM II - Insulin regimen: Lantus 25 U QAM, glucose 286 on admission - A1C 8.1 from 10/25/22, DVT ppx: teds, scds Lines: 2 PIV GI/FEN: HH diet CODE: DNR/DNI Dispo: From home, lives with , likely to remain in hospital x 1-2 days Admission and Anticipated Discharge Date Admission Date: February 10, 2023 Subjective Follow-up for falls, weakness, etc. Seen resting in chair, comfortable, no distress, good spirits States he feels better than yesterday Denies chest pain, shortness of breath Denies fever, chills, abd. pain Pt's present at the bedside and updated Pt seen by neurology and cardiology MRI cervical spine obtained and after discussing w/ neurology - ortho spine consulted Review of Systems Review of Systems: All systems reviewed & are unremarkable except as noted in Subjective Physical Exam Physical Exam: General- oriented x 3, not in distress, speaks in sentences with no effort or accessory muscle use Eyes- anicteric Neck- no JVD Lungs- clear breath sounds bilaterally, no rales/wheezes Heart- normal rate, regular rhythm; no murmurs Abdomen- normal bowel sounds, nondistended, soft, nontender Extremities- no pretibial edema, no calf tenderness Neuro- alert, oriented x 3; speech fluent, no facial asymmetry, moves extremities (while sitting in the chair), gait not assessed Skin- warm & dry Results & Data Results & Data Vital Signs (Past 12 Hours) Vital Signs Temp Pulse Pulse Resp BP Pulse Ox O2 Del Method 02/12/23 07:40 36.5 C 61 16 168/79 H 99 Room Air 02/12/23 07:36 55 L 02/12/23 04:00 36.7 C 56 L 18 130/79 97 Room Air 02/11/23 23:08 36.6 C 71 18 138/67 97 Room Air Laboratory Results 02/12/23 02/12/23 02/12/23 Range/Units 08:41 05:50 05:50 WBC (4.8-10.8) K/ul RBC (4.70-6.10) M/uL Hgb (14.0-18.0) g/dl Hct (42.0-52.0) % MCV (80.0-100.0) fL MCH (25.0-34.0) pg MCHC (32.0-36.0) g/dL RDW Std Deviation (36.4-46.3) fL RDW Coeff of Venancio (11.5-14.5) % Plt Count (130-400) K/uL MPV (9.4-12.4) fL Immature Gran % (Auto) % Neut % (Auto) % Lymph % (Auto) % Creek % (Auto) % Eos % (Auto) % Baso % (Auto) % Neut # (Auto) (1.40-6.50) K/uL Lymph # (Auto) (1.20-3.40) K/uL Creek # (Auto) (0.11-0.59) K/uL Eos # (Auto) (0.00-0.50) K/uL Baso # (Auto) (0.00-0.20) K/uL Immature Gran # (Auto) (0.01-0.20) K/uL ESR (0-20) mm/hr Sodium (136-145) mmol/L Potassium (3.5-5.1) mmol/L Chloride (98-107) mmol/L Carbon Dioxide (21-32) mmol/L Anion Gap (3-11) BUN (6-23) mg/dl Creatinine (0.6-1.4) mg/dl Est Cr Clr Drug Dosing ml/min Est GFR ( Amer) ml/min Est GFR (Non-Af Amer) ml/min BUN/Creatinine Ratio (10-20) Glucose (70-99(Fasting)) mg/dl POC Glucose 106 H (70-99) mg/dl Calcium (8.6-10.3) mg/dl Phosphorus (2.5-4.9) mg/dl Magnesium (1.7-2.4) mg/dl Total Creatine Kinase (30-223) U/L C-Reactive Protein (0-0.5) mg/dl Aldolase Pending Vitamin B12 (180-914) pg/ml ERNIE Screen Pending Lyme Disease IgG Ab Negative (Negative) Lyme Disease IgM Ab Negative (Negative) 02/12/23 02/12/23 02/12/23 Range/Units 05:50 05:50 05:50 WBC (4.8-10.8) K/ul RBC (4.70-6.10) M/uL Hgb (14.0-18.0) g/dl Hct (42.0-52.0) % MCV (80.0-100.0) fL MCH (25.0-34.0) pg MCHC (32.0-36.0) g/dL RDW Std Deviation (36.4-46.3) fL RDW Coeff of Venancio (11.5-14.5) % Plt Count (130-400) K/uL MPV (9.4-12.4) fL Immature Gran % (Auto) % Neut % (Auto) % Lymph % (Auto) % Creek % (Auto) % Eos % (Auto) % Baso % (Auto) % Neut # (Auto) (1.40-6.50) K/uL Lymph # (Auto) (1.20-3.40) K/uL Creek # (Auto) (0.11-0.59) K/uL Eos # (Auto) (0.00-0.50) K/uL Baso # (Auto) (0.00-0.20) K/uL Immature Gran # (Auto) (0.01-0.20) K/uL ESR 28 H (0-20) mm/hr Sodium 137 (136-145) mmol/L Potassium 3.9 (3.5-5.1) mmol/L Chloride 103 (98-107) mmol/L Carbon Dioxide 28 (21-32) mmol/L Anion Gap 6 (3-11) BUN 26 H (6-23) mg/dl Creatinine 1.24 (0.6-1.4) mg/dl Est Cr Clr Drug Dosing 40.0 ml/min Est GFR ( Amer) 60.6 ml/min Est GFR (Non-Af Amer) 52.3 ml/min BUN/Creatinine Ratio 21.0 H (10-20) Glucose 92 (70-99(Fasting)) mg/dl POC Glucose (70-99) mg/dl Calcium 9.0 (8.6-10.3) mg/dl Phosphorus 3.0 (2.5-4.9) mg/dl Magnesium 2.0 (1.7-2.4) mg/dl Total Creatine Kinase 124 (30-223) U/L C-Reactive Protein 0.66 H (0-0.5) mg/dl Aldolase Vitamin B12 383 (180-914) pg/ml ERNIE Screen Lyme Disease IgG Ab (Negative) Lyme Disease IgM Ab (Negative) 02/12/23 02/11/23 02/11/23 Range/Units 05:50 20:31 16:45 WBC 5.91 (4.8-10.8) K/ul RBC 3.78 L (4.70-6.10) M/uL Hgb 12.2 L (14.0-18.0) g/dl Hct 34.4 L (42.0-52.0) % MCV 91.0 (80.0-100.0) fL MCH 32.3 (25.0-34.0) pg MCHC 35.5 (32.0-36.0) g/dL RDW Std Deviation 50.6 H (36.4-46.3) fL RDW Coeff of Venancio 15.2 H (11.5-14.5) % Plt Count 135 (130-400) K/uL MPV 9.1 L (9.4-12.4) fL Immature Gran % (Auto) 0.5 % Neut % (Auto) 59.3 % Lymph % (Auto) 28.4 % Creek % (Auto) 9.6 % Eos % (Auto) 1.7 % Baso % (Auto) 0.5 % Neut # (Auto) 3.50 (1.40-6.50) K/uL Lymph # (Auto) 1.68 (1.20-3.40) K/uL Creek # (Auto) 0.57 (0.11-0.59) K/uL Eos # (Auto) 0.10 (0.00-0.50) K/uL Baso # (Auto) 0.03 (0.00-0.20) K/uL Immature Gran # (Auto) 0.03 (0.01-0.20) K/uL ESR (0-20) mm/hr Sodium (136-145) mmol/L Potassium (3.5-5.1) mmol/L Chloride (98-107) mmol/L Carbon Dioxide (21-32) mmol/L Anion Gap (3-11) BUN (6-23) mg/dl Creatinine (0.6-1.4) mg/dl Est Cr Clr Drug Dosing ml/min Est GFR ( Amer) ml/min Est GFR (Non-Af Amer) ml/min BUN/Creatinine Ratio (10-20) Glucose (70-99(Fasting)) mg/dl POC Glucose 235 H 235 H (70-99) mg/dl Calcium (8.6-10.3) mg/dl Phosphorus (2.5-4.9) mg/dl Magnesium (1.7-2.4) mg/dl Total Creatine Kinase (30-223) U/L C-Reactive Protein (0-0.5) mg/dl Aldolase Vitamin B12 (180-914) pg/ml ERNIE Screen Lyme Disease IgG Ab (Negative) Lyme Disease IgM Ab (Negative) 02/11/23 Range/Units 11:37 WBC (4.8-10.8) K/ul RBC (4.70-6.10) M/uL Hgb (14.0-18.0) g/dl Hct (42.0-52.0) % MCV (80.0-100.0) fL MCH (25.0-34.0) pg MCHC (32.0-36.0) g/dL RDW Std Deviation (36.4-46.3) fL RDW Coeff of Venancio (11.5-14.5) % Plt Count (130-400) K/uL MPV (9.4-12.4) fL Immature Gran % (Auto) % Neut % (Auto) % Lymph % (Auto) % Creek % (Auto) % Eos % (Auto) % Baso % (Auto) % Neut # (Auto) (1.40-6.50) K/uL Lymph # (Auto) (1.20-3.40) K/uL Creek # (Auto) (0.11-0.59) K/uL Eos # (Auto) (0.00-0.50) K/uL Baso # (Auto) (0.00-0.20) K/uL Immature Gran # (Auto) (0.01-0.20) K/uL ESR (0-20) mm/hr Sodium (136-145) mmol/L Potassium (3.5-5.1) mmol/L Chloride (98-107) mmol/L Carbon Dioxide (21-32) mmol/L Anion Gap (3-11) BUN (6-23) mg/dl Creatinine (0.6-1.4) mg/dl Est Cr Clr Drug Dosing ml/min Est GFR ( Amer) ml/min Est GFR (Non-Af Amer) ml/min BUN/Creatinine Ratio (10-20) Glucose (70-99(Fasting)) mg/dl POC Glucose 140 H (70-99) mg/dl Calcium (8.6-10.3) mg/dl Phosphorus (2.5-4.9) mg/dl Magnesium (1.7-2.4) mg/dl Total Creatine Kinase (30-223) U/L C-Reactive Protein (0-0.5) mg/dl Aldolase Vitamin B12 (180-914) pg/ml ERNIE Screen Lyme Disease IgG Ab (Negative) Lyme Disease IgM Ab (Negative) Medications Administered Current Inpatient Medications Acetaminophen (Acetaminophen 325 Mg Tab) 650 mg PO Q4H PRN PRN Reason: Moderate Pain (Scale 4, 5, 6) Stop: 03/12/23 17:17 Amiodarone HCl (Amiodarone 200 Mg Tab) 200 mg PO QAM [facility] Stop: 03/13/23 08:59 Last Admin: 02/11/23 09:20 Dose: 200 mg Aspirin (Aspirin 81 Mg Ectab) 81 mg PO DAILY AMY Stop: 03/13/23 08:59 Last Admin: 02/11/23 09:58 Dose: 81 mg Clopidogrel Bisulfate (Clopidogrel Bisulfate 75 Mg Tab) 75 mg PO DAILY AMY Stop: 03/13/23 08:59 Last Admin: 02/11/23 10:26 Dose: 75 mg Dextrose (Dextrose 50% 50 Ml Syringe) 25 - 50 ml IV UD PRN; Protocol PRN Reason: Hypoglycemia Protocol Stop: 03/12/23 17:17 Glucagon (Glucagon For Inj 1 Mg Vial) 1 mg SQ UD PRN; Protocol PRN Reason: Hypoglycemia Protocol Stop: 03/12/23 17:17 Glucose (Glucose 10 Tab/Tube) 4 - 8 tab PO UD PRN; Protocol PRN Reason: Hypoglycemia Treatment Stop: 03/12/23 17:17 Glucose (Glucose 40% Gel 15 Gm Tube) 15 - 30 gm PO UD PRN; Protocol PRN Reason: Hypoglycemia Protocol Stop: 03/12/23 17:17 Sodium Chloride (Nss) 1,000 mls @ 125 mls/hr IV .Q8H [facility] Last Infusion: 02/10/23 19:12 Dose: Infused Insulin Aspart (Insulin Aspart Per Unit Charge) 0 units SC ACHS AMY Stop: 03/12/23 20:59 Last Admin: 02/11/23 20:44 Dose: 3 units Insulin Glargine (Lantus Per Unit Charge) 10 units SQ BID [facility] Stop: 03/12/23 20:59 Last Admin: 02/11/23 20:43 Dose: 10 units Levothyroxine Sodium (Levothyroxine Sodium 25 Mcg Tablet) 25 mcg PO DAILYBB [facility] Stop: 03/13/23 08:59 Last Admin: 02/12/23 06:30 Dose: 25 mcg Miscellaneous (Carbohydrates For Hypoglycemia ) 15 - 30 gm PO UD PRN PRN Reason: Hypoglycemia Protocol Stop: 03/12/23 17:17 Ranolazine (Ranolazine 500 Mg Er Tab) 1,000 mg PO BID AMY Stop: 03/13/23 08:59 Last Admin: 02/11/23 20:44 Dose: 1,000 mg Rosuvastatin Calcium (Rosuvastatin Calcium 20 Mg Tab) 20 mg PO DAILY AMY Stop: 03/13/23 08:59 Last Admin: 02/11/23 09:20 Dose: 20 mg Vitamin D (Cholecalciferol 1,000 Units 25 Mcg Tab) 2,000 units PO QAM [facility] Stop: 03/13/23 08:59 Last Admin: 02/11/23 09:58 Dose: 2,000 units
[2023-02-12] MEDS: LANTUS PER UNIT CHARGE SQ SCH ×2 (09:25→20:54)
[2023-02-12] MEDS: INSULIN ASPART PER UNIT CHARGE SC SCH ×4 (09:25→20:54)
[2023-02-12] MEDS: ASPIRIN 81 MG ECTAB PO SCH (09:26)
[2023-02-12] MEDS: CLOPIDOGREL BISULFATE 75 MG TAB PO SCH (09:26)
[2023-02-12] MEDS: RANOLAZINE 500 MG ER TAB PO SCH ×2 (09:26→20:04)
[2023-02-12] MEDS: CHOLECALCIFEROL 1,000 UNITS 25 MCG TAB PO SCH (09:26)
[2023-02-12] MEDS: ROSUVASTATIN CALCIUM 20 MG TAB PO SCH (09:27)
[2023-02-12] MEDS: AMIODARONE 200 MG TAB PO SCH (09:27)
--- NOTE | 2023-02-12 09:28 | Neurology Progress Note ---
Date of Service February 12, 2023 Assessment & Plan (1) Ambulatory dysfunction: (2) Weakness: Plan Patient has a progressive gait disturbance with progressive falling likely from weakness of the muscles. On examination he has signs of peripheral neuropathy (absent reflexes and distal wasting of small muscles in the hands and feet) and myopathy (some proximal weakness in the upper extremities). I do note frequent diffuse fasciculations in the hands and feet. 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 He has a significant diabetes condition which could lead to a prominent polyneuropathy. Although I do not see any upper motor neuron signs, these could be masked by the severe polyneuropathy CK and sed rate were unremarkable and with his improvement on exam today I do not believe there is any evidence of an active inflammatory myopathy The patient does not have dementia or history of stroke. His moderate old small-vessel ischemic disease, however, could lead to some balance issues. His steppage gait is reminiscent of footdrop from tibialis anterior weakness. 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 This could be causing a myelopathy and a gait disturbance. Recommendations: 1. He needs EMG nerve conduction studies of at least 2 limbs (preferably 4). Unfortunately, I cannot do an EMG as an inpatient and he would need to be scheduled as an outpatient. 2. I do not believe this patient needs a lumbar puncture. 3. Consider orthopedic spine consult regarding his MRI of the cervical spine. 4. Continue Physical and occupational therapy Overall, I spent a total of 50 minutes with this case including review of records, review of MRI films, direct evaluation the patient at bedside, and discussion of the case with the patient and RN at bedside, and Dr. Martin, including differential diagnosis and treatment options. Admission and Anticipated Discharge Date Admission Date: February 10, 2023 Subjective Patient feels better today with less weakness. He is in no pain. He walked to the bathroom by himself (unfortunately) but did well and did not fall. Blood pressure is 168/79 it is afebrile. CBC shows mild anemia. ESR was 28 and CRP 0.66. CK was 124 B12 383. Lyme antibody titers were unremarkable/normal Patient had an MRI of the cervical spine. This showed significant degenerative changes at multiple levels creating moderate spinal stenosis and at least 2 levels (possibly 3). Results & Data Vital Signs (Past 12 Hours) Vital Signs Temp Pulse Pulse Resp BP Pulse Ox O2 Del Method 02/12/23 07:40 36.5 C 61 16 168/79 H 99 Room Air 02/12/23 07:36 55 L 02/12/23 04:00 36.7 C 56 L 18 130/79 97 Room Air 02/11/23 23:08 36.6 C 71 18 138/67 97 Room Air Exam (Neuro) Physical Exam: He is awake and alert. Speech is without aphasia or dysarthria. Mood and affect seem normal appropriate. Thought processes are intact to conversation. Extraocular muscles are intact without nystagmus. He has no facial droop. Neck has a reasonable the patient has fasciculations distally hands feet as before. Strength is 4 to 4+/5 in the arms and legs bilaterally toes are downgoing to plantar stimulation bilaterally PG Care Time/CCT Total # of Minutes Spent Total Time Spent with Patient: Total time spent is greater than 50% in coordination of care (as documented) at patient's floor/unit and/or counseling patient: Coding Level of Care Code 53550 SUB INP/OBS CARE 3/50MIN Diagnoses Ambulatory dysfunction R26.2 Weakness R53.1 Time Spent (min) 50
--- NOTE | 2023-02-12 10:15 | Electrocardiogram Report ---
Test Reason : Blood Pressure : / mmHG Vent. Rate : 058 BPM Atrial Rate : 058 BPM P-R Int : 218 ms QRS Dur : 174 ms QT Int : 514 ms P-R-T Axes : 000 139 124 degrees QTc Int : 504 ms Sinus bradycardia with 1st degree A-V block Right bundle branch block Left posterior fascicular block Bifascicular block Inferior infarct , age undetermined Abnormal ECG When compared with ECG of 04-OCT-2022 04:51, Left posterior fascicular block is now Present T wave inversion more evident in Anterior leads Confirmed by Magnus Og ([id number]) on 02/12/2023 10:15:14 AM Referred By: REFERRED SELF Confirmed By:Magnus Og
--- NOTE | 2023-02-12 12:42 | Cardiology Progress Note ---
Date of Service February 12, 2023 Assessment & Plan (1) Ambulatory dysfunction: (2) Weakness: (3) AF (paroxysmal atrial fibrillation): (4) CAD (coronary artery disease): (5) Labile hypertension: Plan Patient admitted for worsening weakness, falls, ambulatory dysfunction. No reports of true LOC. Intermittent dizziness reported, particularly with positional changes. Compression stockings ordered No symptoms overnight. Labile hypertension noted. Orthostatic vital signs recommended. Continue to hold isosorbide. BP has been well controlled without 120 mg daily If needed for angina or hypertension, can resume lower dose. Continue amiodarone 200 mg daily to maintain NSR. He has underlying conduction system disease with RBBB, Bifascicular block, but no high degree AV block or pauses noted on telemetry Echo with preserved LVEF and no significant valvular heart disease. Continue ASA, statin, Ranolazine. He has no complaints of myalgias, just generalized weakness, but could hold statin to see if there is any improvement in his leg weakness. Proceed with neuro recommendations and imaging. No further cardiac testing warranted. will sign off. Please contact price economist plastic die maker apprentice with additional questions or concerns. Case discussed with Dr. Cullen I spent a total of 30 minutes on the date of service in preparation, delivery, and documentation of the care provided to this patient, excluding any time spent in the performance of separately billed services. Spring Cantor PA-C Department of Cardiology, [facility] This chart was completed in part utilizing Speech Voice Recognition Software. Grammatical errors, random word insertions, pronoun errors, and incomplete sentences are an occasional consequence of this system due to software limitations, ambient noise, and hardware issues. Any formal questions or concerns about the content, text, or information contained within the body of this dictation should be directly addressed to the provider for clarification. Admission and Anticipated Discharge Date Admission Date: February 10, 2023 Supervising Physician Co-Signing Physician Notes Supervising Physician Attestation: I have personally performed a history and physical examination on the patient. I agree with the physician dental assistant medical assistant's findings and plan as documented with the following additions. Subjective: No complaints at present. Exam: Cardiovascular: Regular rate, no murmurs Data: Telemetry reveals sinus rhythm in the 60s. Assessment and Plan: The patient has underlying conduction system disease, presentation suggests dysfunction perhaps is not related to arrhythmia. Noted about blood pressure readings observed. Isosorbide mononitrate for now. Monitor cardiac rhythm on low-dose amiodarone. Neurology input noted and appreciated. I spent a total of 15 minutes on the date of service in preparation, delivery, and documentation of the care provided to this patient, excluding any time spent in the performance of separately billed services. Thomas Cullen, DO Subjective Patient resting in bed comfortably. Reports improved weakness and dizziness. Neuro consulted and concerns for peripheral neuropathy. EMG ordered. Possible issues with DDD within the spine causing gait instability. No chest pain or dyspnea. BP has been well controlled with holding isosorbide. Review of Systems Review of Systems: All systems reviewed & are unremarkable except as noted in HPI & below Physical Exam Constitutional: + thin; no acute distress Respiratory: normal respiratory effort, lungs clear to auscultation Cardiovascular: Rate/Rhythm: regular rate and regular rhythm Heart Sounds: normal S1, normal S2 and + murmur (soft I/ systolic murmur) Vessels: no JVD Extremities: no edema Gastrointestinal (Abdomen): normal bowel sounds, soft, nontender, no hepatosplenomegaly Neurologic: PERRL, EOMI, accommodation nl, no face palsy, no dysarthria Results & Data Vital Signs (Past 12 Hours) Vital Signs Temp Pulse Pulse Resp BP Pulse Ox O2 Del Method 02/12/23 11:45 37.1 C 73 16 122/64 97 Room Air 02/12/23 07:40 36.5 C 61 16 168/79 H 99 Room Air 02/12/23 07:36 55 L 02/12/23 04:00 36.7 C 56 L 18 130/79 97 Room Air Laboratory Results CBC 02/12/23 Range/Units 05:50 WBC 5.91 (4.8-10.8) K/ul RBC 3.78 L (4.70-6.10) M/uL Hgb 12.2 L (14.0-18.0) g/dl Hct 34.4 L (42.0-52.0) % Plt Count 135 (130-400) K/uL Neut # (Auto) 3.50 (1.40-6.50) K/uL Lymph # (Auto) 1.68 (1.20-3.40) K/uL [place] # (Auto) 0.57 (0.11-0.59) K/uL Eos # (Auto) 0.10 (0.00-0.50) K/uL Baso # (Auto) 0.03 (0.00-0.20) K/uL Comprehensive Metabolic Panel 02/12/23 Range/Units 05:50 Sodium 137 (136-145) mmol/L Potassium 3.9 (3.5-5.1) mmol/L Chloride 103 (98-107) mmol/L Carbon Dioxide 28 (21-32) mmol/L BUN 26 H (6-23) mg/dl Creatinine 1.24 (0.6-1.4) mg/dl Glucose 92 (70-99(Fasting)) mg/dl Calcium 9.0 (8.6-10.3) mg/dl Intake and Output 02/11/23 02/12/23 02/12/23 22:59 06:59 14:59 Intake Total 320 / 560 Output Total 1250 / 2950 1700 / 2950 Balance -930 / -2390 -1700 / -2390 Intake: Oral 320 / 560 Output: Urine Amount (Catheter) 1250 / 2950 1700 / 2950 External 1250 / 2950 1700 / 2950 Other: Other Intake Source SIPS Weight 66.1 kg Weight Measurement Method Built in [facility] Diagnostic Findings Telemetry reviewed: NSR in the 60s. Rare PAC's. Medications Administered Current Inpatient Medications Acetaminophen (Acetaminophen 325 Mg Tab) 650 mg PO Q4H PRN PRN Reason: Moderate Pain (Scale 4, 5, 6) Stop: 03/12/23 17:17 Amiodarone HCl ([facility]one 200 Mg Tab) [facility] [place] Stop: 03/13/23 08:59 Last Admin: 02/12/23 09:27 Dose: 200 mg Aspirin (Aspirin 81 Mg Ectab) 81 mg PO DAILY [facility] Stop: 03/13/23 08:59 Last Admin: 02/12/23 09:26 Dose: 81 mg Clopidogrel Bisulfate (Clopidogrel Bisulfate 75 Mg Tab) 75 mg PO DAILY [facility] Stop: 03/13/23 08:59 Last Admin: 02/12/23 09:26 Dose: 75 mg Dextrose (Dextrose 50% 50 Ml Syringe) 25 - 50 ml IV UD PRN; Protocol PRN Reason: Hypoglycemia Protocol Stop: 03/12/23 17:17 Glucagon (Glucagon For Inj 1 Mg Vial) 1 mg SQ UD PRN; Protocol PRN Reason: Hypoglycemia Protocol Stop: 03/12/23 17:17 Glucose (Glucose 10 Tab/Tube) 4 - 8 tab PO UD PRN; Protocol PRN Reason: Hypoglycemia Treatment Stop: 03/12/23 17:17 Glucose (Glucose 40% Gel 15 Gm Tube) 15 - 30 gm PO UD PRN; Protocol PRN Reason: Hypoglycemia Protocol Stop: 03/12/23 17:17 Sodium Chloride (Nss) 1,000 mls @ 125 mls/hr IV .Q8H [facility] Last Infusion: 02/10/23 19:12 Dose: Infused Insulin Aspart (Insulin Aspart Per Unit Charge) 0 units SC ACHS [facility] Stop: 03/12/23 20:59 Last Admin: 02/12/23 09:25 Dose: 3 units Insulin Glargine (Lantus Per Unit Charge) 10 units SQ BID [facility] Stop: 03/12/23 20:59 Last Admin: 02/12/23 09:25 Dose: 10 units Levothyroxine Sodium (Levothyroxine Sodium 25 Mcg Tablet) 25 mcg PO DAILYBB [facility]Y Stop: 03/13/23 08:59 Last Admin: 02/12/23 06:30 Dose: 25 mcg Miscellaneous (Carbohydrates For Hypoglycemia ) 15 - 30 gm PO UD PRN PRN Reason: Hypoglycemia Protocol Stop: 03/12/23 17:17 Ranolazine (Ranolazine 500 Mg Er Tab) 1,000 mg PO BID [facility]Y Stop: 03/13/23 08:59 Last Admin: 02/12/23 09:26 Dose: 1,000 mg Rosuvastatin Calcium (Rosuvastatin Calcium 20 Mg Tab) 20 mg PO DAILY [facility] Stop: 03/13/23 08:59 Last Admin: 02/12/23 09:27 Dose: 20 mg Vitamin D (Cholecalciferol 1,000 Units 25 Mcg Tab) 2,000 units PO QAM [facility] Stop: 03/13/23 08:59 Last Admin: 02/12/23 09:26 Dose: 2,000 units
[2023-02-13 06:11] LABS: Hematocrit (blood only) 35.1 % (42.0-52.0); Hemoglobin 12.4 g/dl (14.0-18.0); Mean Corpuscular Hemoglobin 32.4 pg (25.0-34.0); Mean Corpuscular Hgb Conc 35.3 g/dL (32.0-36.0); Mean Corpuscular Volume 91.6 fL (80.0-100.0); Platelet Count 130 K/uL (130-400); RDW Coefficient of Variation 15.4 % (11.5-14.5); RDW Standard Deviation 51.4 fL (36.4-46.3); Red Blood Count 3.83 M/uL (4.70-6.10); White Blood Count 7.34 K/ul (4.8-10.8)
[2023-02-13 06:33] LABS: BUN Creatinine Ratio 24.5 (10-20); Calcium 8.9 mg/dl (8.6-10.3); Creatinine Clr Calc Pharmacy 33.6 ml/min; Est GFR (African American) 49.4 ml/min; Est GFR (Non-African American) 42.6 ml/min; Phosphorus 3.3 mg/dl (2.5-4.9); Potassium 4.4 mmol/L (3.5-5.1)
[2023-02-13] MEDS: LEVOTHYROXINE SODIUM 25 MCG TABLET PO SCH (07:05)
[2023-02-13] MEDS: AMIODARONE 200 MG TAB PO SCH (08:49)
[2023-02-13] MEDS: RANOLAZINE 500 MG ER TAB PO SCH ×2 (08:49→20:38)
[2023-02-13] MEDS: CHOLECALCIFEROL 1,000 UNITS 25 MCG TAB PO SCH (08:50)
[2023-02-13] MEDS: CLOPIDOGREL BISULFATE 75 MG TAB PO SCH (08:50)
[2023-02-13] MEDS: ASPIRIN 81 MG ECTAB PO SCH (08:50)
[2023-02-13] MEDS: ROSUVASTATIN CALCIUM 20 MG TAB PO SCH (08:50)
[2023-02-13] MEDS: LANTUS PER UNIT CHARGE SQ SCH (08:53)
[2023-02-13] MEDS: INSULIN ASPART PER UNIT CHARGE SC SCH ×4 (08:53→20:38)
--- NOTE | 2023-02-13 12:40 | Consultation ---
Date of Consultation February 13, 2023 Assessment & Plan (1) Cervical stenosis of spine: Dr. Hinds has reviewed imaging and treatment plan. Although patient has both cervical and foraminal stenosis found on his MRI this does not correlate with his symptoms. Patient presents with progressive decline and weakness affecting bilateral upper and lower extremities. He has no associated pain, paresthesia or numbness of upper or lower extremities. I do not believe that his cervical MRI findings correlate with his weakness and balance issues. Agree with continued work-up and EMGs as an outpatient of upper and lower extremities. Agree with PT/OT for B/L upper and lower extremity strengthening. Again from a spine standpoint conservative treatment only. We will sign off. History of Present Illness Reason for Consultation: Cervical stenosis, weakness Attending Physician: Alvarado Martin MD History of Present Illness Is a pleasant 87-year-old gentleman that we are asked to see in consultation regarding his most recent admission. Patient is since states that since September he has had a progressive decline with upper and lower extremity weakness bilaterally. He has no associated cervical pain. He has no upper or lower extremity radicular pain, paresthesia or numbness. He has had multiple falls since September. He has been in and out of rehab because of this. He does note loss of fine motor dexterity. He states his states that if he stands and tries to dress himself he has to lean on her for support or he will lose his balance and fall. Typically ambulates with a walker. He is on anticoagulation. Denies any perineum numbness. Patients always reports new onset of tremors. Allergies Allergy/AdvReac Type Severity Reaction Status Date / Time No Known Allergies Allergy Verified 02/10/23 13:26 Home Medications Medication Instructions Recorded Confirmed Type insulin glargine 100 unit/mL (3 25 unit subcut QAM 09/23/22 02/10/23 History mL) subcutaneous pen (Lantus Solostar U-100 Insulin) metformin 500 mg tablet,extended See Rx Instructions .Route .COMPLEX 09/23/22 02/10/23 History release 24 hr amiodarone 200 mg tablet 200 mg PO QAM 11/27/22 02/10/23 History aspirin 81 mg tablet,delayed 81 mg PO DAILY 11/27/22 02/10/23 History release clopidogrel 75 mg tablet 75 mg PO DAILY 11/27/22 02/10/23 History ranolazine 1,000 mg 1,000 mg PO BID 11/27/22 02/10/23 History tablet,extended release,12 hr rosuvastatin 20 mg tablet 20 mg PO DAILY 11/27/22 02/10/23 History cholecalciferol (vitamin D3) 50 50 mcg PO QAM 02/10/23 02/10/23 History mcg (2,000 unit) tablet (Vitamin D3) levothyroxine 25 mcg tablet 25 mcg PO QAM 02/10/23 02/10/23 History Patient History Medical History Acute hyponatremia CAD (coronary artery disease) Diabetes mellitus Dyslipidemia Falls Paroxysmal atrial fibrillation Surgical History History of appendectomy S/P CABG x 3 "s/p CAB[place] [facility] [place] REYES-LAD, SVG-left circ, SVG-post desc art " Family History Other Dementia Heart disease Stroke Social History Smoking Status: Former smoker Tobacco Type: Cigarettes Second Hand Exposure: No; Do You Dip or Chew Tobacco: No; Hx Alcohol Use: No Hx Substance Use: No Preferred Language: Malian Communication Ability: Effective Insurance Inspector Required: No Beliefs That Will Affect Care: None Current Living Situation: Spouse Current Living Situation Comment: Lives w/ at home current occupational status: retired 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 No evidence of ankle clonus bilateral lower extremities Motor testing is 5/5 bilateral EHL, dorsiflexion, plantarflexion, quadriceps, hamstrings, hip flexors, hip abductor's and hip adductor's Motor testing is 5/5 bilateral finger intrinsics, wrist extensors, wrist flexors, biceps, triceps, deltoid Results & Data Vital Signs (Past 12 Hours) Vital Signs Temp Pulse Pulse Resp BP Pulse Ox O2 Del Method 02/13/23 11:16 36.7 C 64 18 113/62 97 Room Air 02/13/23 07:26 36.4 C L 65 16 164/80 H 100 Room Air 02/13/23 07:21 59 L 02/13/23 03:26 36.6 C 59 L 18 165/82 H 99 Room Air Diagnostic Findings [place], [place] [phone] Magnetic Resonance Report Patient:JENNA ROJAS Admit Date:02/10/23 MR#:[id number] Address1:[address] [place] [address] Acct ID:[id number] Address2: Date:[address] [facility] [facility] Zip:[place] [address] Age:87 Location: Sex:M Room/Bed:[facility] Att Phy:Alvarado Martin MD Diagnosis:FALLS,HYPONATREMIA Maryellen Phy:Carola Arrington MD Service Date:02/11/23 Fam Phy: Interpreting Phy:Reinaldo Nunez MDAdmit Phy:Rafia Reilly DO Ordering Phy:Davion Correia MD cc: ~ CERVICAL SPINE MRI HISTORY: Neck injury. falls TECHNIQUE: Multiplanar multisequence MRI of the cervical spine was performed without the use of contrast. COMPARISON STUDY: Cervical spine CT 02/10/2023. FINDINGS: Mild motion artifact. There is mild reversal of the normal lordotic curvature within the upper cervical spine. This is secondary to the 2 mm of retrolisthesis of C3 on C4 and C4 on C5. This remains unchanged. There is severe disc space narrowing at C3-C4, C4-C5, and C6-C7. There is moderate disc space narrowing at C5-C6. Prevertebral soft tissues and the C1-C2 interval are intact. The visualized posterior fossa is unremarkable. No acute fractures within the cervical spine. [id number] facet degenerative changes throughout the cervical spine. Suboptimal evaluation of the cervical spinal cord is motion artifact. However, the cervical spinal cord appears to demonstrate a normal signal intensity. C2-C3: No significant central canal or neural foraminal narrowing. C3-C4: Broad-based posterior disc osteophyte complex which abuts and results in mild to moderate cord deformity with [id number] central canal narrowing. The AP diameter is 7 mm. There is severe bilateral neural foraminal narrowing due to the uncovertebral and facet hypertrophy. C4-C5: Broad-based posterior disc osteophyte complex which abuts the anterior cord and results in mild to moderate cord deformity. There is moderate to severe central canal narrowing with an AP diameter of 5 mm. There is severe left and moderate to severe right neural foraminal narrowing due to the uncovertebral and facet hypertrophy. C5-C6: Broad-based posterior disc osteophyte complex resulting in mild central canal and mild right-sided neural foraminal narrowing. There is severe left-side d neural foraminal narrowing due to the uncovertebral and facet hypertrophy. C6-C7: Broad-based posterior disc bulge which abuts and slightly deforms anterior cord with moderate central canal narrowing demonstrating an AP diameter of 6 mm. There is severe bilateral neural foraminal narrowing due to the uncovertebral and facet hypertrophy. C7-T1: No significant central canal or neural foraminal narrowing. IMPRESSION: 1. No acute fractures within the cervical spine. 2. Moderate to severe multilevel degenerative changes as described above most pronounced at the C3-C4, C4-C5 and C6-C7 levels. ACT 112: Negative or not required by law. Electronically signed by: Reinaldo Nunez M.D. 02/12/2023 7:42 AM Dictated:02/12/23 0735 Transcribed: 02/12/23 0735
[2023-02-13] MEDS ORDERED: LANTUS PER UNIT CHARGE SC SCH (12:45)
--- NOTE | 2023-02-13 12:56 | Hospitalist Progress Note ---
Date of Service February 13, 2023 Assessment & Plan (1) Falls frequently: (2) KIKI (acute kidney injury): (3) Ambulatory dysfunction: (4) AF (paroxysmal atrial fibrillation): (5) Hyponatremia: Plan: 87 yo F with PMhx of Paroxysmal A-fib, CAD, HTN, DM type II, falls who presents to the hospital with weakness, falls and found to have hyponatremia and bumped creatinine on labs. Falls Paroxysmal Atrial Fib CABG x 18 November 2008 CAD August 2009 with ADIEL to Left circumflex, obtuse marginal, RCA with patent REYES graft, occluded saphenous vein grafts. R BBB - monitor on tele - Last Echo was completed in Feb 2021 reviewed personally showing EF of 55%, with normal wall motion. Mild aortic valve stenosis was present. Aortic root mildly enlarged at 4 cm and proximal ascending aorta mildly enlarged to 4.1 cm. - Checked 2D echo -mild concentric LVH. LV wall motion is normal. LV systolic function is normal. LVEF 60 to 65%. Left atrium is mildly dilated. Grade 1 diastolic function. Mild aortic root dilatation. - Check orthostatics - Consulted cardiology - concern for some tachy miah syndrome in EMS en route -- ER reports pt had elevated HR and then was down in the 50s, ER with concerns for pacemaker evaluation? EKG was reviewed and showed sinus miah with 1st degree AV block. QTC is prolonged. - Pt is on aspirin and plavix - last CAD stent placement was many years ago, pt with multiple areas of ecchymosis -not a candidate for formal anticoagulation with falls - TSH 5.84, Free T4 1.1 on 01/07/23 - hgb is stable at 12.1, hct 34.6 - Head CT is negative, Cspine negative - Check MRI brain to determine if any underlying stroke with having worsened balance. Neurology consult to weight in on other neurological cause for functional decline - parkinsonian like symptoms? -PT/OT consults 02/11 Brain MRI: No acute process Cardiology service consulted Recommend holding isosorbide given borderline hypotension Continue amiodarone Monitor orthostatic vital signs Neurologist consulted Recommend cervical spine MRI - 1. No acute fractures within the cervical spine. 2. Moderate to severe multilevel degenerative changes as described above most pronounced at the C3-C4, C4-C5 and C6-C7 levels.- orthopedic spine consult regarding his MRI of the cervical spine Ortho spine seen the pt - although patient has both cervical and foraminal stenosis found on his MRI this does not correlate with his symptoms. Patient presents with progressive decline and weakness affecting bilateral upper and lower extremities. He has no associated pain, paresthesia or numbness of upper or lower extremities. I do not believe that his cervical MRI findings correlate with his weakness and balance issues. Agree with continued work-up and EMGs as an outpatient of upper and lower extremities. Agree with PT/OT for B/L upper and lower extremity strengthening. Again from a spine standpoint conservative treatment only. Needs EMG nerve conduction studies as an outpatient Checked vitamin B12 (383 - wnl), ESR (28), CK (124 wnl), aldolase (pending), CRP (0.66), ERNIE (pending), Lyme antibody titers (negative) Per neurology - Patient has a progressive gait disturbance with progressive falling likely from weakness of the muscles. On examination he has signs of peripheral neuropathy (absent reflexes and distal wasting of small muscles in the hands and feet) and myopathy (some proximal weakness in the upper extremities). I do note frequent diffuse fasciculations in the hands and feet. 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 He has a significant diabetes condition which could lead to a prominent polyneuropathy. Although I do not see any upper motor neuron signs, these could be masked by the severe polyneuropathy CK and sed rate were unremarkable and with his improvement on exam today I do not believe there is any evidence of an active inflammatory myopathy The patient does not have dementia or history of stroke. His moderate old small-vessel ischemic disease, however, could lead to some balance issues. His steppage gait is reminiscent of footdrop from tibialis anterior weakness. 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 This could be causing a myelopathy and a gait disturbance. KIKI on CKD stage III - Cr noted to be 1.82, baseline of 1.3-1.4 - NSS ordered, trend with am labs - resolved Hyponatremia - Sodium of 132 on arrival, appears that he runs around 133-136 - pt admits to drinking large quantities of free water and sodium restriction in diet - NSS at 125 ml/hr x 1 bag Na 132 --> 135 DM II - Insulin regimen: Lantus 25 U QAM, glucose 286 on admission - A1C 8.1 from 10/25/22, DVT ppx: teds, scds Lines: 2 PIV GI/FEN: HH diet CODE: DNR/DNI Dispo: From home, lives with , plan for rehab, CM involved Admission and Anticipated Discharge Date Admission Date: February 10, 2023 Subjective Follow-up for falls, weakness, etc. Seen resting in chair, comfortable, no distress, good spirits States he feels better overall, plans to go to rehab Denies chest pain, shortness of breath Denies fever, chills, abd. pain Pt seen by neurology and cardiology MRI cervical spine obtained and after discussing w/ neurology - ortho spine c onsulted - no surg. intervention recommended at this time Review of Systems Review of Systems: All systems reviewed & are unremarkable except as noted in Subjective Physical Exam Physical Exam: General- oriented x 3, not in distress, speaks in sentences with no effort or accessory muscle use Eyes- anicteric Neck- no JVD Lungs- clear breath sounds bilaterally, no rales/wheezes Heart- normal rate, regular rhythm; no murmurs Abdomen- normal bowel sounds, nondistended, soft, nontender Extremities- no pretibial edema, no calf tenderness Neuro- alert, oriented x 3; speech fluent, no facial asymmetry, moves extremities, gait not assessed Skin- warm & dry Results & Data Results & Data Vital Signs (Past 12 Hours) Vital Signs Temp Pulse Pulse Resp BP Pulse Ox O2 Del Method 02/13/23 11:16 36.7 C 64 18 113/62 97 Room Air 02/13/23 07:26 36.4 C L 65 16 164/80 H 100 Room Air 02/13/23 07:21 59 L 02/13/23 03:26 36.6 C 59 L 18 165/82 H 99 Room Air Laboratory Results 02/13/23 02/13/23 02/13/23 Range/Units 11:46 11:45 08:10 WBC (4.8-10.8) K/ul RBC (4.70-6.10) M/uL Hgb (14.0-18.0) g/dl Hct (42.0-52.0) % MCV (80.0-100.0) fL MCH (25.0-34.0) pg MCHC (32.0-36.0) g/dL RDW Std Deviation (36.4-46.3) fL RDW Coeff of Venancio (11.5-14.5) % Plt Count (130-400) K/uL MPV (9.4-12.4) fL Sodium (136-145) mmol/L Potassium (3.5-5.1) mmol/L Chloride (98-107) mmol/L Carbon Dioxide (21-32) mmol/L Anion Gap (3-11) BUN (6-23) mg/dl Creatinine (0.6-1.4) mg/dl Est Cr Clr Drug Dosing ml/min Est GFR ( Amer) ml/min Est GFR (Non-Af Amer) ml/min BUN/Creatinine Ratio (10-20) Glucose (70-99(Fasting)) mg/dl POC Glucose 356 H* 355 H* 179 H (70-99) mg/dl Calcium (8.6-10.3) mg/dl Phosphorus (2.5-4.9) mg/dl Magnesium (1.7-2.4) mg/dl 02/13/23 02/13/23 02/12/23 Range/Units 05:46 05:46 20:10 WBC 7.34 (4.8-10.8) K/ul RBC 3.83 L (4.70-6.10) M/uL Hgb 12.4 L (14.0-18.0) g/dl Hct 35.1 L (42.0-52.0) % MCV 91.6 (80.0-100.0) fL MCH 32.4 (25.0-34.0) pg MCHC 35.3 (32.0-36.0) g/dL RDW Std Deviation 51.4 H (36.4-46.3) fL RDW Coeff of Venancio 15.4 H (11.5-14.5) % Plt Count 130 (130-400) K/uL MPV 9.0 L (9.4-12.4) fL Sodium 135 L (136-145) mmol/L Potassium 4.4 (3.5-5.1) mmol/L Chloride 102 (98-107) mmol/L Carbon Dioxide 28 (21-32) mmol/L Anion Gap 5 (3-11) BUN 36 H (6-23) mg/dl Creatinine 1.47 H (0.6-1.4) mg/dl Est Cr Clr Drug Dosing 33.6 ml/min Est GFR ( Amer) 49.4 ml/min Est GFR (Non-Af Amer) 42.6 ml/min BUN/Creatinine Ratio 24.5 H (10-20) Glucose 184 H (70-99(Fasting)) mg/dl POC Glucose 276 H (70-99) mg/dl Calcium 8.9 (8.6-10.3) mg/dl Phosphorus 3.3 (2.5-4.9) mg/dl Magnesium 2.0 (1.7-2.4) mg/dl 02/12/23 Range/Units 17:31 WBC (4.8-10.8) K/ul RBC (4.70-6.10) M/uL Hgb (14.0-18.0) g/dl Hct (42.0-52.0) % MCV (80.0-100.0) fL MCH (25.0-34.0) pg MCHC (32.0-36.0) g/dL RDW Std Deviation (36.4-46.3) fL RDW Coeff of Venancio (11.5-14.5) % Plt Count (130-400) K/uL MPV (9.4-12.4) fL Sodium (136-145) mmol/L Potassium (3.5-5.1) mmol/L Chloride (98-107) mmol/L Carbon Dioxide (21-32) mmol/L Anion Gap (3-11) BUN (6-23) mg/dl Creatinine (0.6-1.4) mg/dl Est Cr Clr Drug Dosing ml/min Est GFR ( Amer) ml/min Est GFR (Non-Af Amer) ml/min BUN/Creatinine Ratio (10-20) Glucose (70-99(Fasting)) mg/dl POC Glucose 172 H (70-99) mg/dl Calcium (8.6-10.3) mg/dl Phosphorus (2.5-4.9) mg/dl Magnesium (1.7-2.4) mg/dl Medications Administered Current Inpatient Medications Acetaminophen (Acetaminophen 325 Mg Tab) 650 mg PO Q4H PRN PRN Reason: Moderate Pain (Scale 4, 5, 6) Stop: 03/12/23 17:17 Amiodarone HCl (Amiodarone 200 Mg Tab) 200 mg PO QAM [facility] Stop: 03/13/23 08:59 Last Admin: 02/13/23 08:49 Dose: 200 mg Aspirin (Aspirin 81 Mg Ectab) 81 mg PO DAILY [facility] Stop: 03/13/23 08:59 Last Admin: 02/13/23 08:50 Dose: 81 mg Clopidogrel Bisulfate (Clopidogrel Bisulfate 75 Mg Tab) 75 mg PO DAILY [facility]Y Stop: 03/13/23 08:59 Last Admin: 02/13/23 08:50 Dose: 75 mg Dextrose (Dextrose 50% 50 Ml Syringe) 25 - 50 ml IV UD PRN; Protocol PRN Reason: Hypoglycemia Protocol Stop: 03/12/23 17:17 Glucagon (Glucagon For Inj 1 Mg Vial) 1 mg SQ UD PRN; Protocol PRN Reason: Hypoglycemia Protocol Stop: 03/12/23 17:17 Glucose (Glucose 10 Tab/Tube) 4 - 8 tab PO UD PRN; Protocol PRN Reason: Hypoglycemia Treatment Stop: 03/12/23 17:17 Glucose (Glucose 40% Gel 15 Gm Tube) 15 - 30 gm PO UD PRN; Protocol PRN Reason: Hypoglycemia Protocol Stop: 03/12/23 17:17 Sodium Chloride (Nss) 1,000 mls @ 125 mls/hr IV .Q8H [facility] Last Infusion: 02/10/23 19:12 Dose: Infused Insulin Aspart (Insulin Aspart Per Unit Charge) 0 units SC ACHS [facility] Stop: 03/12/23 20:59 Last Admin: 02/13/23 08:53 Dose: 8 units Insulin Glargine (Lantus Per Unit Charge) 25 units SQ QAM [facility] Stop: 03/16/23 08:59 Insulin Glargine (Lantus Per Unit Charge) 10 units SC 1245 [facility] Stop: 02/13/23 13:45 Levothyroxine Sodium (Levothyroxine Sodium 25 Mcg Tablet) 25 mcg PO DAILYBB [facility] Stop: 03/13/23 08:59 Last Admin: 02/13/23 07:05 Dose: 25 mcg Miscellaneous (Carbohydrates For Hypoglycemia ) 15 - 30 gm PO UD PRN PRN Reason: Hypoglycemia Protocol Stop: 03/12/23 17:17 Ranolazine (Ranolazine 500 Mg Er Tab) 1,000 mg PO BID [facility] Stop: 03/13/23 08:59 Last Admin: 02/13/23 08:49 Dose: 1,000 mg Rosuvastatin Calcium (Rosuvastatin Calcium 20 Mg Tab) 20 mg PO DAILY [facility] Stop: 03/13/23 08:59 Last Admin: 02/13/23 08:50 Dose: 20 mg Vitamin D (Cholecalciferol 1,000 Units 25 Mcg Tab) 2,000 units PO QAM [facility] Stop: 03/13/23 08:59 Last Admin: 02/13/23 08:50 Dose: 2,000 units
[2023-02-13 19:12] LABS: Aldolase 4.7 U/L (< OR = 8.1); Anti Nuclear Antibody Screen NEGATIVE (NEGATIVE)
[2023-02-14] MEDS: LEVOTHYROXINE SODIUM 25 MCG TABLET PO SCH (05:59)
[2023-02-14 07:35] LABS: BUN Creatinine Ratio 29.1 (10-20); Calcium 9.2 mg/dl (8.6-10.3); Est GFR (African American) 45.2 ml/min; Magnesium 2.1 mg/dl (1.7-2.4); Phosphorus 3.5 mg/dl (2.5-4.9); Potassium 4.7 mmol/L (3.5-5.1)
[2023-02-14] MEDS: RANOLAZINE 500 MG ER TAB PO SCH (08:05)
[2023-02-14] MEDS: CHOLECALCIFEROL 1,000 UNITS 25 MCG TAB PO SCH (08:05)
[2023-02-14] MEDS: ROSUVASTATIN CALCIUM 20 MG TAB PO SCH (08:06)
[2023-02-14] MEDS: ASPIRIN 81 MG ECTAB PO SCH (08:06)
[2023-02-14] MEDS: AMIODARONE 200 MG TAB PO SCH (08:06)
[2023-02-14] MEDS: CLOPIDOGREL BISULFATE 75 MG TAB PO SCH (08:06)
[2023-02-14] MEDS ORDERED: LANTUS PER UNIT CHARGE SQ SCH (09:00)
[2023-02-14] MEDS: INSULIN ASPART PER UNIT CHARGE SC SCH ×2 (09:03→13:21)
[2023-02-14] MEDS ORDERED: SODIUM CHLORIDE 0.9% 1,000 ML IV SCH (14:30)
--- NOTE | 2023-02-14 14:48 | Discharge Summary ---
Date of Service February 14, 2023 Admission HPI Per Admitting Provider This is a 87 yo M with PMhx of Paroxysmal A-fib, CAD, HTN, DM type II, falls who presents to the hospital with weakness, falls and found to have hyponatremia and bumped creatinine on labs. The patient's is with him at bedside and supports the history. Patient admits that he has fallen 3 times within the past week, and for the past month has gone on a progressive decline in functional status. He admits that upon standing he frequently gets lightheaded and dizzy and tries to walk right away and has fallen several times when this happens. However, there are also times where he is walking and gets so shaky, with progressive weakness, and feels his legs are buckling underneath him, and then falls. He has undergone treatment with PT multiple times in the past and does very well with it, and has been discharged. Within the past month has not been doing PT. notes he is incredible unsteady when getting out of the shower, and seems to be holding on to things for balance. notes that he uses a walker at baseline. Pt denies any acute infectious like symptoms, no fever, chills. Admission Exam Per Admitting Provider General: awake, alert, no apparent distress, + thin, multiple areas of ecchymosis Head: Normocephalic, atraumatic ENT: PERRL, EOMI, no pharyngeal exudate, mucous membranes appear slightly dry Chest: Clear to auscultation, on room air, no adventitious breath sounds Cardiac: Regular rate and rhythm, no murmur, no JVD, normal peripheral pulses, good capillary refill Abdominal: NABS x 4 quadrants, soft, nondistended, nontender to palpation, no rebound or guarding Extremities: Normal inspection, no peripheral edema or erythema, calfs nontender to palpation Psych: Normal mood and affect Neuro: Appears to have pill rolling tendencies, rolling tongue in mouth throughout exam, AAO x 3, strength intact bilaterally and rated 5/5, slightly less strength in the right leg compared to left, no obvious motor deficits, intentional tremor, speech is clear, no peripheral sensory deficits Principal Diagnosis Falls, weakness, ambulatory dysfunction Neuropathy, myopathy Elevated blood sugar level Discharge Exam General- oriented x 3, not in distress, speaks in sentences with no effort or accessory muscle use Eyes- anicteric Neck- no JVD Lungs- clear breath sounds bilaterally, no rales/wheezes Heart- normal rate, regular rhythm; no murmurs Abdomen- normal bowel sounds, nondistended, soft, nontender Extremities- no pretibial edema, no calf tenderness Neuro- alert, oriented x 3; speech fluent, no facial asymmetry, moves extremities, gait not assessed Skin- warm & dry Discharge Data Allergies Allergy/AdvReac Type Severity Reaction Status Date / Time No Known Allergies Allergy Verified 02/10/23 13:26 Consultations 02/10/23 13:42 ED Decision to Admit Stat 02/10/23 14:37 Consult Neurology Routine 02/10/23 14:38 Consult Cardiology Routine 02/12/23 10:35 Consult Orthopedic Spine Surgery Routine Ordered Studies 02/10/23 12:03 CT cervical spine wo con Stat FINDINGS: There is reversal of the cervical lordosis. There is severe disc space narrowing with extensive osteophytosis at C3-C4. Moderate to severe disc space narrowing is noted at multiple additional levels. There is moderate multilevel facet arthrosis. No cervical spine fracture is present. There is no prevertebral edema. Facet joints are intact. IMPRESSION: 1. No acute cervical spine fracture or subluxation. 2. Moderate to severe multilevel degenerative changes within the cervical spine. 02/10/23 12:04 CT head/brain wo con Stat Findings: Areas of decreased attenuation are present in the periventricular and subcortical white matter bilaterally consistent with small vessel ischemic disease. Generalized cerebral atrophy with commensurate enlargement of the ventricles, sulci, and cisterns is also present. There is no acute intracranial hemorrhage or evidence of acute territorial infarction. No shift of the midline structures, mass effect, or extra-axial abnormalities are shown. Atherosclerotic calcifications are present in the intracranial segments of the internal carotid arteries. Imaged portions of the paranasal sinuses and mastoid air cells are clear. The orbits appear normal. There are no acute fractures of the calvaria or scalp swelling. Impression: No acute intracranial hemorrhage, no evidence of acute territorial infarction or other acute intracranial disease process. 02/10/23 15:29 MRI Brain [MR brain wo con] Stat FINDINGS: There is no mass, hematoma, midline shift, or acute infarct. The ventricles and sulci demonstrate moderate age-related involutional changes. Scattered foci of T2 hyperintensity seen within the periventricular and subcortical white matter are nonspecific but suggestive of moderate microvascular ischemic changes. The major vascular flow voids at the skull base are well-maintained. Mild mucosal thickening within the paranasal sinuses and a trace left mastoid effusion. IMPRESSION: 1. No acute infarct or intracranial hemorrhage. 2. Moderate atrophy and microvascular ischemic changes. 02/11/23 17:34 MRI Cervical [MR cervical spine wo con] Routine FINDINGS: Mild motion artifact. There is mild reversal of the normal lordotic curvature within the upper cervical spine. This is secondary to the 2 mm of retrolisthesis of C3 on C4 and C4 on C5. This remains unchanged. There is severe disc space narrowing at C3-C4, C4-C5, and C6-C7. There is moderate disc space narrowing at C5-C6. Prevertebral soft tissues and the C1-C2 interval are intact. The visualized posterior fossa is unremarkable. No acute fractures within the cervical spine. [id number] facet degenerative changes throughout the cervical spine. Suboptimal evaluation of the cervical spinal cord is motion artifact. However, the cervical spinal cord appears to demonstrate a normal signal intensity. C2-C3: No significant central canal or neural foraminal narrowing. C3-C4: Broad-based posterior disc osteophyte complex which abuts and results in mild to moderate cord deformity with [id number] central canal narrowing. The AP diameter is 7 mm. There is severe bilateral neural foraminal narrowing due to the uncovertebral and facet hypertrophy. C4-C5: Broad-based posterior disc osteophyte complex which abuts the anterior cord and results in mild to moderate cord deformity. There is moderate to severe central canal narrowing with an AP diameter of 5 mm. There is severe left and moderate to severe right neural foraminal narrowing due to the uncovertebral and facet hypertrophy. C5-C6: Broad-based posterior disc osteophyte complex resulting in mild central canal and mild right-sided neural foraminal narrowing. There is severe left- sided neural foraminal narrowing due to the uncovertebral and facet hypertrophy. C6-C7: Broad-based posterior disc bulge which abuts and slightly deforms anterior cord with moderate central canal narrowing demonstrating an AP diameter of 6 mm. There is severe bilateral neural foraminal narrowing due to the uncovertebral and facet hypertrophy. C7-T1: No significant central canal or neural foraminal narrowing. IMPRESSION: 1. No acute fractures within the cervical spine. 2. Moderate to severe multilevel degenerative changes as described above most pronounced at the C3-C4, C4-C5 and C6-C7 levels. Hospital Course (1) Falls frequently: (2) KIKI (acute kidney injury): (3) Ambulatory dysfunction: (4) AF (paroxysmal atrial fibrillation): (5) Hyponatremia: 87 yo F with PMhx of Paroxysmal A-fib, CAD, HTN, DM type II, falls who presents to the hospital with weakness, falls and found to have hyponatremia and increased creatinine on labs. Falls Paroxysmal Atrial Fib CABG x 18 November 2008 CAD August 2009 with ADIEL to Left circumflex, obtuse marginal, RCA with patent REYES graft, occluded saphenous vein grafts. R BBB - monitor on tele - Last Echo was completed in Feb 2021 reviewed personally showing EF of 55%, with normal wall motion. Mild aortic valve stenosis was present. Aortic root mildly enlarged at 4 cm and proximal ascending aorta mildly enlarged to 4.1 cm. - Checked 2D echo -mild concentric LVH. LV wall motion is normal. LV systolic function is normal. LVEF 60 to 65%. Left atrium is mildly dilated. Grade 1 diastolic function. Mild aortic root dilatation. - Check orthostatics - positive - Consulted cardiology - concern for some tachy miah syndrome in EMS en route -- ER reports pt had elevated HR and then was down in the 50s, ER with concerns for pacemaker evaluation? EKG was reviewed and showed sinus miah with 1st degree AV block. QTC is prolonged. - Pt is on aspirin and plavix - last CAD stent placement was many years ago, pt with multiple areas of ecchymosis -not a candidate for formal anticoagulation with falls - TSH 5.84, Free T4 1.1 on 01/07/23 - hgb is stable at 12.1, hct 34.6 - Head CT is negative, Cspine negative - Check MRI brain to determine if any underlying stroke with having worsened balance. Neurology consult to weight in on other neurological cause for functional decline - parkinsonian like symptoms? -PT/OT consults Brain MRI: No acute process Cardiology service consulted Recommend holding isosorbide given borderline hypotension - continue to hold on discharge. BP has been well controlled without 120 mg daily. If needed for angina or hypertension, can resume lower dose. Continue amiodarone 200 mg daily to maintain NSR. He has underlying conduction system disease with RBBB, Bifascicular block, but no high degree AV block or pauses noted on telemetry. Echo with preserved LVEF and no significant valvular heart disease. Continue amiodarone Monitor orthostatic vital signs Compression stockings ordered Neurologist consulted Recommend cervical spine MRI - 1. No acute fractures within the cervical spine. 2. Moderate to severe multilevel degenerative changes as described above most pronounced at the C3-C4, C4-C5 and C6-C7 levels.- orthopedic spine consult regarding his MRI of the cervical spine Ortho spine seen the pt - although patient has both cervical and foraminal stenosis found on his MRI this does not correlate with his symptoms. Patient presents with progressive decline and weakness affecting bilateral upper and lower extremities. He has no associated pain, paresthesia or numbness of upper or lower extremities. I do not believe that his cervical MRI findings correlate with his weakness and balance issues. Agree with continued work-up and EMGs as an outpatient of upper and lower extremities. Agree with PT/OT for B/L upper and lower extremity strengthening. Again from a spine standpoint conservative treatment only. Needs EMG nerve conduction studies as an outpatient Checked vitamin B12 (383 - wnl), ESR (28), CK (124 wnl), aldolase (pending), CRP (0.66), ERNIE (pending), Lyme antibody titers (negative) Per neurology - Patient has a progressive gait disturbance with progressive falling likely from weakness of the muscles. On examination he has signs of peripheral neuropathy (absent reflexes and distal wasting of small muscles in the hands and feet) and myopathy (some proximal weakness in the upper extremities). I do note frequent diffuse fasciculations in the hands and feet. 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 He has a significant diabetes condition which could lead to a prominent polyneuropathy. Although I do not see any upper motor neuron signs, these could be masked by the severe polyneuropathy CK and sed rate were unremarkable and with his improvement on exam I do not believe there is any evidence of an active inflammatory myopathy The patient does not have dementia or history of stroke. His moderate old small-vessel ischemic disease, however, could lead to some balance issues. His steppage gait is reminiscent of footdrop from tibialis anterior weakness. 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 This could be causing a myelopathy and a gait disturbance. KIKI on CKD stage III - Cr noted to be 1.82, baseline of 1.3-1.4 - NSS ordered, trend with am labs - resolved Hyponatremia - Sodium of 132 on arrival, appears that he runs around 133-136 - pt admits to drinking large quantities of free water and sodium restriction in diet - NSS at 125 ml/hr x 1 bag Na 132 --> 136 DM II - Insulin regimen: Lantus 25 U QAM, glucose 286 on admission - A1C 8.1 % from 10/25/22, Total Time Total Time Spent Total Time Spent (In Minutes): 40 Discharge Plan Discharge Items Patient Disposition: Transfer Inpatient Rehab Fac Reason For Visit: FALLS,HYPONATREMIA Discharge Diagnosis: Falls, weakness, ambulatory dysfunction Neuropathy, myopathy Elevated blood sugar level Activity: Per Instructions section Non-emergency contact: Primary Care Provider, Specialist and Neurologist Call non-emergency contact if: you have any medication questions and your symptoms worsen Follow-up/Referrals: Carola Arrington MD [Primary Care Provider] - Diet: Carb Consistent or DM2 and Heart Healthy Addtl Attending Provider Instructions: Follow-up with primary care physician, and your other health care providers. Your blood sugar level was found elevated in the hospital, make sure that you follow-up with your physician to manage your blood sugar. Make sure you stay well-hydrated. When not sleeping/lying in bed, you should use compression stockings. You were seen by cardiology here, and isosorbide mononitrate was stopped for now. Therefore, do not use it, unless you discuss this again with your physician. You were also seen by a neurologist here, and spinal surgeon. It is recommended that you follow-up with neurology and have further testing done in their office. Pending Studies at Discharge: Yes Stand-Alone Forms: My [facility] Skilled Items Patient informed of condition?: Yes DNR: Yes Discharge Level of Care: Acute rehab Communicable Disease: No Discharge Prognosis: Other Lines: None Urinary Catheter: No Medications and DC Order Prescriptions: Continued amiodarone 200 mg tablet 200 mg PO QAM clopidogrel 75 mg tablet 75 mg PO DAILY aspirin 81 mg Tablet,Delayed Release (Dr/Ec) 81 mg PO DAILY rosuvastatin 20 mg Tablet 20 mg PO DAILY ranolazine 1,000 mg Tablet Extended Release 12 Hr 1,000 mg PO BID levothyroxine 25 mcg tablet 25 mcg PO QAM cholecalciferol (vitamin D3) [Vitamin D3] 50 mcg (2,000 unit) Tablet 50 mcg PO QAM metformin 500 mg tablet extended release 24 hr See Rx Instructions .ROUTE .COMPLEX Rx Instructions: Patient is taking 1000mg by mouth in the morning and 500mg by mouth in the evening. insulin glargine [Lantus Solostar U-100 Insulin] 100 unit/mL (3 mL) insulin pen 25 unit SUBCUT QAM Discontinued isosorbide mononitrate 120 mg Tablet Extended Release 24 Hr 120 mg PO QAM Discharge Orders: Discharge Order (Routine); Ordered 02/14/23 Ordered By: Alvarado Miller/Other Patient Handouts: Managing Type 2 Diabetes Admission Data Admit Date/Time: 02/10/23 14:37 Attending Provider: Alvarado Martin Admit Provider: Rafia Reilly Primary Care Provider: Carola Arrington Other Providers: Rafia Reilly ; Thomas Cullen ; Wilbur Rivers ; Davion Correia ; Aguilar Hinds ; [facility]
[2023-02-15] MEDS ORDERED: LANTUS PER UNIT CHARGE SQ SCH (09:00)
--- NOTE | 2023-02-17 08:41 | Coding Query ---
CODING QUERY To promote full compliance with coding requirements relating to patient care, provider participation is requested in all cases of laborer laboratory uncertainty. Please assist us with the question(s) below: Coding Question(s): Pt admitted with repeat falls, weakness. Discharge Summary documented myopathy, neuropathy . Also progress notes, DS documented " etiology falls- patient with hyponatremia and increased creatinine (baseline 1.3-1.4 - pt labs 1.82 on admission). . 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 Please document, if known or suspected, the etiology of the patient's frequent falls. thanks for your help! Homero [place] [employer] [facility] Physician's Response(s): Principal Diagnosis: "that condition established after study, to be chiefly responsible for occasioning the admission of the patient to the hospital for care." Co-Existing Principal Diagnosis: "when two or more diagnoses equally meet the criteria for principal diagnosis as determined by the circumstances of admission, diagnostic work up, and/or therapy provided, and the Alphabetic Index, Tabular List, or another coding guideline does not provide sequencing direction, any one of the diagnoses may be sequenced first." "When the physician has documented what appears to be a current diagnosis in the body of the record, but has not included the diagnosis in the final diagnostic statement, the physician should be asked whether the diagnosis should be added." (Source Coding Clinic 2 QTR90. p3-4) SIVA
--- OUTSIDE RECORDS SUMMARY | 2023-02-21 02:32 | External Medical Summary ---
Author Name Unknown Address Unknown Organization [id number]:[facility] [address] [place] [id number] Laboratory Report Ordering Provider Test Date Status RONALD EVANS 01/07/2023 11:34:46 Final Observation Date Value Abnormality Reference (Units ) Status BUN 01/07/2023 11:34:46 33 Above high normal 6-20 (mg/dL) Final Creatinine 01/07/2023 11:34:46 1.4 Above high normal 0.6-1.2 (mg/dL) Final Glomerular filtration rate/1.73 sq M.predicted [Volume Rate/Area] in Serum, Plasma or Blood by Creatinine-based formula (CKD-EPI) 01/07/2023 11:34:46 48 Below low normal >=60 (mL/min) Final Performing Location [facility] [address] [place] [id number]
--- OUTSIDE RECORDS SUMMARY | 2023-02-21 02:32 | External Medical Summary | Summary of Care ---
Author Name Unknown Organization [facility] Address [address] [place] [address] Phone [phone] Care Team Providers Care Advertising Dispatch Clerk Name Role Phone Carola Arrington MD Primary Care Provider Reason for Visit * Reason Comments Acute Pt being seen for c/ o increase weakness, no energy and was seen ain PT yesterday and his O2 level dropped, but did go back up. Has some SOB off and on with activities mostly. Encounter Details Date Type Department Care Team Description 01/07/[address] [facility] [address] [place] [address] Kierra Santoyo, [address] [place] [address] Generalized weakness*; Malaise and fatigue Allergies No known active allergiesdocumented as of this encounter (statuses as of 01/07/2023) Medications Medication Sig Dispensed Refills Start Date End Date Status aspirin 81 MG chewable tablet Take 1 Tablet by mouth in the morning. 34 Tab 11 10/28/2017 Active nitroglycerin (NITROSTAT) 0.4 MG SUBLIndications:Chr onic coronary artery disease DISSOLVE 1 TABLET UNDER THE TONGUE EVERY 5 MINUTES FOR CHEST PAIN. UP TO 3 DOSES IN 15 MINUTES. 25 Tab 1 11/17/2018 Active Additional Information Patient not taking.Informant: Patient, Reported on 12/02/2022 Clopidogrel Bisulfate 75 MG Oral Tablet (pLAVix)Indications :Aortocoronary bypass status,Acute coronary syndrome (HCC),Chronic coronary artery disease,Enlarged aorta (HCC) TAKE 1 TABLET BY MOUTH EVERY DAY 100 Tablet 1 07/24/2022 Active Amiodarone HCl 200 MG Oral Tablet (Cordarone)Indicati ons:Paroxysmal A-fib (HCC) Take 1 Tablet by mouth daily. 30 Tablet 5 12/06/2022 Active Isosorbide Mononitrate ER 120 MG Oral Tablet Extended Release 24 Hour (Imdur) TAKE 1 TABLET BY MOUTH EVERY MORNING 90 Tablet 1 12/12/2022 Active Rosuvastatin Calcium 20 MG Oral Tablet (Crestor)Indication s:Dyslipidemia, goal LDL below 70 TAKE 1 TABLET DAILY 90 Tablet 3 12/23/2022 Active Ranolazine ER 1000 MG Oral Tablet Extended Release 12 Hour Take 1 Tablet by mouth in the morning and 1 Tablet before bedtime. 180 Tablet 3 12/23/2022 Active Insulin Glargine Solostar 100 UNIT/ML Subcutaneous Solution Pen-injector (Lantus SoloStar)Indication s:DM type 2, goal A1C to be determined (HCC),Type 2 diabetes mellitus with stage 3b chronic kidney disease, without long-term current use of insulin ([facility]) Inject 25 Units under the skin every evening. 15 mL 3 12/30/2022 Active metFORMIN HCl ER 500 MG Oral Tablet Extended Release 24 Hour (Glucophage XR)Indications:DM type 2, goal A1C to be determined (HCC) TAKE 2 TABLET BY MOUTH IN THE MORNING AND 1 TABLETS IN THE EVENING WITH FOOD 270 Tablet 1 12/30/2022 Active BD Pen Needle Emperatriz 2nd Gen 32G X 4 MM (Insulin Pen Needle)Indications: Type 2 diabetes mellitus with stage 3b chronic kidney disease, without long-term current use of insulin (HCC),DM type 2, goal A1C to be determined (HCC) USE WITH INSULIN PEN DAILY 100 Each 1 01/06/2023 Active documented as of this encounter (statuses as of 01/07/2023) Active Problems Problem Noted Date Paroxysmal A-fib 12/06/2022 Unstable angina 10/25/2022 Type 2 diabetes mellitus wit h stage 3b chronic kidney disease, with long-term current use of insulin 08/09/2022 Enlarged aorta 08/09/2022 Hx of melanoma of skin 07/19/2021 Overview: Location: L upper back Year: 2016 Depth: MIS Treatment: WLE (positive margins on initial excision, then re-excised again with wider margins) Staging: Stage 0 - [id number] - Melanoma in situ Type 2 diabetes mellitus with stage 3b c hronic kidney disease 09/26/2020 Overview: Per CKD protocol Chronic kidney disease, stage 3b 021 Overview: Per CKD protocol Hypertensive kidney disease with stage 3 b chronic kidney disease 03/27/2020 Overview: Per CKD protocol Stable angina 10/27/2019 History of colon polyps 09/08/2018 HTN, goal below 140/90 07/24/2015 Overview: Per HTN Protocol #27. Dyslipidemia, goal LDL below 70 05/01/20 Overview: Per Lipid Taxonomy. 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 at prior visit S/P angioplasty with stent Overview: drug eluting 09/15/09 Plavix x 12m DM type 2, goal A1C to be determined documented as of this encounter (statuses as of 01/07/2023) Resolved Problems Problem Noted Date Resolved Date Stage 3a chronic kidney disease 08/09/2022 08/29/2022 Hypertensive kidney disease with chronic kidney disease stage III 12/10/2018 03/30/2020 Overview: Per CKD protocol Diabetes mellitus with stage 3 chronic kidney di sease 08/26/2017 09/28/2020 Overview: Per CKD protocol #1 HTN, GOAL BELOW 140/80 01/06/2012 Overview: Per HTN Protocol #27. Unstable angina 11/23/2011 10/24/2016 Chest pain 11/22/2011 10/24/2016 NSTEMI (non-ST elevated myocardial infarction) 0 11/22/2011 12/30/2016 Acute coronary syndrome 09/15/2009 10/25/19 17 Enlarged aorta 09/15/2009 04/27/2019 Overview: Aortic root 4.4 cm 4.29.2009 echo at [facility]. HTN, goal below 130/80 06/14/2009 2 Overview: Per HTN Taxonomy. Type 2 diabetes mellitus wit h hemoglobin A1c goal of less than 7.0% 03/02/2009 03/27/2011 Overview: Modified per Diabetes protocol #14. ICD-10 update of inactive term EXAMINATION OF PARTICIPANT IN CLINICAL TRIAL-gen omics 11/17/2008 09/01/2009 Overview: Renamed Per Clinical Trials Billing Project. Study Titile: Genomic Markers for Patients with Cardiovascular Disease Project #[id number] PI: Ricardo Yang MD Please call [phone] with study related questions INTERFACED RESULT 11/17/2008 10/17/2011 GENOMICS CARDIO RESEARCH OTHER*[id number] 200806/25/2016 Overview: Renamed Per Clinical Trials Billing Project. Study Titile: Genomic Markers for Patients with Cardiovascular Disease Project #[id number] PI: Ricardo Yang MD Please call [phone] with study related questions CLASS I-II ANGINA PECTORIS, STABLE 04/26/2002 09/15/2009 Mixed dyslipidemia 04/26/2002 05/01/2009 Overview: Per Lipid Taxonomy. BENIGN NEOPLASM LG BOWEL 01/17/2002 019 HTN, goal below 140/90 08/23/1998 0 Overview: Per HTN Taxonomy. DM type 2, not at goal 08/23/1998 9 Overview: Modified per Diabetes protocol #14. THREE VESSEL ATHEROSCLEROTIC CORONARY DISEASE 09/15/2009 Dyslipidemia, goal LDL below 160 07/13/2013 documented as of this encounter (statuses as of 01/07/2023) Immunizations Name Administration Dates Next Due Pneumococcal Conjugate Vacc, 13 Valent (Prevnar) 01/18/2016 Seasonal Influenza, PF, 6 mo ns & Above, IM , (Flulaval) 03/01/2018 Seasonal Influenza, Quadrivalent, ID 02/21/2020 Seasonal Influenza, Quadriva lent, No Preserve, IM 03/02/2017 Seasonal Influenza, Split, I IV3, With Preserve, Inj 02/16/2013,03/09/2012,01/30/2011,2008,03/24/2008 Seasonal Influenza, Trivalen t, Adjuvanted, 65+ yrs 03/02/2019 TDAP (age 10 and older)(Boostrix) 07/10/2012 documented as of this encounter Social History Tobacco Use Types Packs/Day Years Used Date Smoking Tobacco: Former Cigarettes 0.5 5 Q uit: 05/19/1984 Smokeless Tobacco: Never Tobacco Cessation:Counseling Given: Not Answered Comments:quit 30 yrs ago, while in [place] for 4 years Alcohol Use Standard Drinks/Week Comments Yes 0 (1 standard drink = 0.6 oz pur e alcohol) socially Food Insecurity Answer Date Recorded Within the past 12 months, y ou worried that your food would run out before you got money to buy more. Never true 09/20/2019 Within the past 12 months, t he food you bought just didn't last and you didn't have money to get more. Never true 09/20/2019 Sex Assigned at Date Recorded Male 10/27/2019 8:32 AM E DT Job Start Date Occupation Industry Not on file Not on file Not on file documented as of this encounter Last Filed Vital Signs Vital Sign Reading Time Taken Comments Blood Pressure 124/68 01/07/2023 10:55 AM EDT Pulse 68 01/07/2023 10:55 AM EDT Temperature 35.3 C (95.5 F) 01/07/2023 10:55 AM E DT Respiratory Rate 16 01/07/2023 10:55 AM EDT Oxygen Saturation 95% 01/07/2023 10:55 AM EDT Inhaled Oxygen Concentration - - Weight 65.3 kg (144 lb) 01/07/2023 10:55 AM EDT Height 180.3 cm (5' 11") 01/07/2023 10:55 AM EDT Body Mass Index 20.08 01/07/2023 10:55 AM EDT documented in this encounter Progress Notes * Kierra Santoyo, DO - 01/07/2023 11:13 AM EDT Subjective: Dirk Garcia is a 87 year old male. Chief Complaint Patient presents with Acute Pt being seen for c/o increase weakness, no energy and was seen ain PT yesterday and his O2 level dropped, but did go back up. Has some SOB off and on with activities mostly. There are no exam notes on file for this visit. HPI: This is a 87 year old male with PMHx as below presents with acute illness Yesterday at PT - low oxygen for a period of time but did improve Lack of energy VSS Sleeping well Eating good Saw cardio recently and had echo done 10/2022 Health Maintenance Due Topic Date Due DXA Scan Never done Zoster Vaccines (1 of 2) Never done COVID-19 Vaccine (3 - Pfizer series) 09/20/2020 COLONOSCOPY-EVERY 5 YRS AGES 18-100 03/20/2021 Depression Screening, Annual for Pts 12 and Over 10/26/2021 DTaP,Tdap,and Td Vaccines (2 - Td or Tdap) 07/10/2022 DIABETES-FOOT EXAM 08/08/2022 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 Dyslipidemia, goal LDL below 70 E78.5 S/P angioplasty with stent Z95.820 DM type 2, goal A1C to be determined ([facility]) E11.9 HTN, goal below 140/90 I10 History of colon polyps Z86.010 Stable angina (HCC) I20.8 Hypertensive kidney disease with stage 3b chronic kidney disease I12.9, N18.32 Type 2 diabetes mellitus with stage 3b chronic kidney disease (HCC) E11.22, N18.32 Chronic kidney disease, stage 3b (HCC) N18.32 Hx of melanoma of skin Z85.820 Type 2 diabetes mellitus with stage 3b chronic kidney disease, with long-term current use of insulin (HCC) E11.22, N18.32, Z79.4 Enlarged aorta ([facility]) I77.89 Unstable angina ([facility]) I20.0 Paroxysmal A-fib ([facility]) I48.0 Current Outpatient Medications Medication Sig Dispense Refill aspirin 81 MG chewable tablet Take 1 Tablet by mouth in the morning. 34 Tab 11 Clopidogrel Bisulfate 75 MG Oral Tablet (pLAVix) TAKE 1 TABLET BY MOUTH EVERY DAY 100 Tablet 1 Amiodarone HCl 200 MG Oral Tablet (Cordarone) Take 1 Tablet by mouth daily. 30 Tablet 5 Isosorbide Mononitrate ER 120 MG Oral Tablet Extended Release 24 Hour (Imdur) TAKE 1 TABLET BY MOUTH EVERY MORNING 90 Tablet 1 Rosuvastatin Calcium 20 MG Oral Tablet (Crestor) TAKE 1 TABLET DAILY 90 Tablet 3 Ranolazine ER 1000 MG Oral Tablet Extended Release 12 Hour Take 1 Tablet by mouth in the morning and 1 Tablet before bedtime. 180 Tablet 3 Insulin Glargine Solostar 100 UNIT/ML Subcutaneous Solution Pen-injector (Lantus SoloStar) Inject 25 Units under the skin every evening. 15 mL 3 metFORMIN HCl ER 500 MG Oral Tablet Extended Release 24 Hour (Glucophage XR) TAKE 2 TABLET BY MOUTHIN THE MORNING AND 1 TABLETS IN THE EVENING WITH FOOD 270 Tablet 1 BD Pen Needle Emperatriz 2nd Gen 32G X 4 MM (Insulin Pen Needle) USE WITH INSULIN PEN DAILY 100 Each 1 nitroglycerin (NITROSTAT) 0.4 MG SUBL DISSOLVE 1 TABLET UNDER THE TONGUE EVERY 5 MINUTES FOR CHEST PAIN. UP TO 3 DOSES IN 15 MINUTES. (Patient not taking: Reported on 12/02/2022) 25 Tab 1 No current facility-administered medications for this visit. Past Medical History: Diagnosis Date Aortocoronary bypass status 12/06/2008 Benign neoplasm of colon 01/18 Chronic coronary artery disease 11/17/2008 Coronary atherosclerosis of [place] coronary artery DM type 2, goal A1c below 7 DM type 2, goal A1C to be determined ([facility]) Dyslipidemia, goal LDL below 160 Dyslipidemia, goal LDL below 70 05/01/2009 Per Lipid Taxonomy. Enlarged aorta (HCC) 09/15/2009 Aortic root 4.4 cm 4..2009 echo at [facility]. HTN, goal below 130/80 06/14/2009 Per HTN Taxonomy. HTN, goal below 140/90 S/P angioplasty with stent drug eluting 09/15/09 Plavix x 12m Past Surgical History: Procedure Laterality Date CABG, ARTERIAL, SINGLE 11/25/08 CORONARY ARTERY BYPASS GRAFT USING ARTERY 1 GRAFT performed by MAXIMILIANO CASILLAS at [facility] CABG, ARTERY-VEIN, TWO 11/25/08 CORONARY ARTERY BYPASS GRAFT ARTERIAL AND VENOUS 2 GRAFTS performed by MAXIMILIANO CASILLAS at [facility] CATHETERIZE LEFT HEART THRU SKIN Cardiac Catheterization, Left Heart CATHETERIZE LEFT HEART THRU SKIN 11/17/08 LEFT HEART CATH, PERCUTANEOUS [place] DRAKE MALONE [place] [facility] LEFT HEART THRU SKIN 09/15/09 LEFT HEART CATH, PERCUTANEOUS performed [place] RICARDO YANG [place] [facility] COLONOSCOPY THRU STOMA, W/BIOPSY jan 2002 adenomatous and hyperplastic polyps, next in jan 2005 CORONARY ANGIOGRAPHY W/LEFT HEART CATH 11/25/2011 CORONARY ANGIOGRAPHY W/LEFT HEART CATH performed [place] Jermaine Leary DO [place] [facility] DESTRUCTION PREMALIGNANT LESION 1ST about 2001 facial lesion. ENDO,VIDEO ASSIST HARVEST WALE 11/25/08 ENDOSCOPY VIDEO ASSISTED HARVEST VEIN performed by MAXIMILIANO CASILLAS at 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: [employer] Tobacco Use Smoking status: Former Packs/day: 0.50 Years: 5.00 Pack years: 2.50 Types: Cigarettes Quit date: 05/19/1984 Years since quittin.6 Smokeless tobacco: Never Tobacco comments: quit 30 yrs ago, while in [place] for 4 years Vaping Use Vaping Use: Never used Substance and Sexual Activity Alcohol use: Yes Comment: socially Drug use: No Comment: up to 2-3 cups of coffee per day Sexual activity: Yes Partners: Female Other Topics Concern Not on file Social History Narrative Not on file Social Determinants of Health Financial Resource Strain: Not on file Food Insecurity: Not on file Transportation Needs: Not on file Physical Activity: Not on file Stress: Not on file Social Connections: Not on file Intimate Partner Violence: Not on file Housing Stability: Not on file Review of Systems: As per HPI all other ROS negative. Wt Readings from Last 3 Encounters: 01/07/23 65.3 kg (144 lb) 12/23/22 66.9 kg (147 lb 8 oz) 12/02/22 65.8 kg (145 lb) Results for orders placed or performed in visit on 12/23/22 TSH WITH FREE T4 IF INDICATED Result Value Ref Range TSH 5.38 (H) 0.27 - 4.20 uIU/mL LDL CHOLESTEROL (DIRECT MEASURE) Result Value Ref Range LDL Cholesterol (Direct Measure) 44 <=129 mg/dL T4, FREE Result Value Ref Range T4, Free 1.0 0.9 - 1.7 ng/dL OBJECTIVE: Physical Exam: BP 124/68 | Pulse 68 | Temp 35.3 C (95.5 F) (Tympanic) | Resp 16 | Ht 1.803 m (5' 11") | Wt 65.3 kg (144 lb) | SpO2 95% | BMI 20.08 kg/m | BSA 1.81 m General: alert, healthy, and no distress Heart: regular rate & rhythm, no murmur, and no gallops Lungs: lungs clear to auscultation Neuro Exam: alert & oriented x 3 with fluent speech Generalized weakness (Primary) - CBC WITH WBC DIFFERENTIAL; Future; Expected date: 01/07/2023 - COMPREHENSIVE METABOLIC PANEL; Future; Expected date: 01/07/2023 - TSH WITH FREE T4 IF INDICATED; Future; Expected date: 01/07/2023 - BNP, NT-PRO; Future; Expected date: 01/07/2023 Malaise and fatigue - CBC WITH WBC DIFFERENTIAL; Future; Expected date: 01/07/2023 - COMPREHENSIVE METABOLIC PANEL; Future; Expected date: 01/07/2023 - TSH WITH FREE T4 IF INDICATED; Future; Expected date: 01/07/2023 - BNP, NT-PRO; Future; Expected date: 01/07/2023 Check labs, no red flags on exam. Ok to continue PT. To call with any change in sx. Kierra Santoyo DO documented in this encounter Plan of Treatment Upcoming Encounters Date Type Specialty Care Team Description 01/07/2023 Laboratory Laboratory Celia Casillas [address] [place] [address] Anemia, unspecified type; Generalized weakness; Malaise and fatigue 02/12/2023 Office Visit Family Medicine Carola Arrington MD [address] [place] [address] 03/17/2023 Office Visit Pharmacy [facility] Stephanie [address] [place] [address] 08/14/2023 [facility] [address] [facility] [address] Pending Results Name Type Priority Associated Diagnoses Date /Time COMPREHENSIVE METABOLIC PANEL Lab Routine Generalized weakness Malaise and fatigue 01/07/2023 11:34 AM EDT TSH WITH FREE T4 IF INDICATED Lab Routine Generalized weakness Malaise and fatigue 01/07/2023 11:34 AM EDT BNP, NT-PRO Lab Routine Generalized weakness Malaise and fatigue 01/07/2023 11:34 AM EDT Scheduled Orders Name Type Priority Associated Diagnoses Orde r Schedule COMPREHENSIVE METABOLIC PANEL Lab Routine Generalized weakness Malaise and fatigue Expected: 01/07/2023 (Approximate), Expires: 01/07/2024 TSH WITH FREE T4 IF INDICATED Lab Routine Generalized weakness Malaise and fatigue Expected: 01/07/2023 (Approximate), Expires: 01/07/2024 BNP, NT-PRO Lab Routine Generalized weakness Malaise and fatigue Expected: 01/07/2023 (Approximate), Expires: 01/07/2024 Health Maintenance Due Date Last Done Comments DXA Scan 1935 Zoster Vaccines (1 of 2) 1986 COVID-19 Vaccine (3 - Pfizer series) 09/20/2020 07/26/2020, 07/05/2020 COLONOSCOPY-EVERY 5 YRS AGES 18-100 03/20/2021 03/20/2016, 04/30/2010, 02/05/2002 Depression Screening, Annual for Pts 12 and Over 10/26/2021 10/26/2020 DTaP,Tdap,and Td Vaccines (2 - Td or Tdap) 07/10/2022 07/10/2012 DIABETES-FOOT EXAM 08/08/2022 08/08/2021, 1 06/28/2019, 04/27/2019, Additional history exists Influenza Vaccine (FLU shot) (#1) 2023 02/21/2020, 03/02/2019, 03/01/2018, Additional history exists DIABETES-EYE EXAM 02/08/2023 02/08/2022, , 04/28/2013, Additional history exists HbA1c 05/28/2023 11/25/2022, 06/20, 12/04/2021, Additional history exists Albumin/Creatinine Ratio 07/10/2023 023, 08/08/2021, 10/24/2016, Additional history exists B-12 11/26/2023 11/25/2022, 06/20, 04/27/2021, Additional history exists CKD HGB USE SMARTSET 47017 12/03/202312/02, 12/02/2022, 11/25/2022, Additional history exists CKD PHOS USE SMARTSET 86939 12/03/202311/16, 09/15/2020, 04/18/2020, Additional history exists Pneumococcal Vaccine: 65+ Years Completed 01/18/2016, 11/20/2004 GARDASIL-HPV IMMUNIZATION SERIES Aged Out No longer eligible based on patient's age to complete this topic Hepatitis B Aged Out No longer eligi ble based on patient's age to complete this topic MENINGOCOCCAL (MENACTRA/MENVEO) Aged Out No longer eligible based on patient's age to complete this topic documented as of this encounter Medical Devices Not on filedocumented as of this encounter Visit Diagnoses Diagnosis Generalized weakness- Primary Other malaise and fatigue Malaise and fatigue Other malaise and fatigue Anemia, unspecified type Generalized weakness Other malaise and fatigue Malaise and fatigue Other malaise and fatigue documented in this encounter Advance Directives Latest Code Status on File Code Status Date Activated Date Inactivated Comments Full Code 11/22/2011 11:38 PM 11/25/2011 9:22 PM This o rder reflects the patients wishes and were consensually agreed upon. Question Answer Comments Discussion of Advance Directives occurred with: Patient/Family Does the patient have a Living Will? Yes, not currently available Does the patient have Health Care Power of [employer] Windows Engineer? Yes, not currently available Code Status History Code Status Date Activated Date Inactivated Comments Full Code 09/15/2009 2:06 PM 09/16/2009 8:49 PM This o rder reflects the patients wishes and were consensually agreed upon. Question Answer Comments Discussion of Advance Directives occurred with: Patient/Family Does the patient have a Living Will? No Does the patient have Health Care Power of [employer] Windows Engineer? No Full Code 11/25/2008 1:50 PM 11/29/2008 9:11 PM This order reflects the patients wishes and were consensually agreed upon. Question Answer Comments Discussion of Advance Directives occurred with: Patient Care Teams Advertising Dispatch Clerk Relationship Specialty Start Date End Date Carola Arrington MD [address] [place] [address] PCP - General Internal Medicine 12/19/20 documented as of this encounter
--- OUTSIDE RECORDS SUMMARY | 2023-02-21 02:32 | External Medical Summary ---
Author Name Unknown Address Unknown Organization [id number]:[facility] - [address] [place] [address] Laboratory Report Ordering Provider Test Date Status RONALD EVANS 01/07/2023 11:34:46 Final Observation Date Value Abnormality Reference (Units ) Status T4, Free 01/07/2023 11:34:46 1.1 0.9-1.7 (n g/dL) Final Performing Location [facility] - [address] [place] [address]
--- OUTSIDE RECORDS SUMMARY | 2023-02-21 02:32 | External Medical Summary ---
Author Name Unknown Address Unknown Organization [id number][facility] [place] [address] [facility] [address] Laboratory Report Ordering Provider Test Date Status RONALD EVANS 01/07/2023 11:34:46 Final Observation Date Value Abnormality Reference (Units ) Status SYNC LEUKOCYTES IN BLOOD BY AUTOMATED COUNT 01/07/2023 11:34:46 7.00 4.00-10.80 (K/uL) Final Segs 01/07/2023 11:34:46 66.2 40.0-75.0 (%) Final Lymphs % 01/07/2023 11:34:46 23.7 18.0-42.0 (%) Final Monos 01/07/2023 11:34:46 8.4 1.0-11.0 (%) Final Eosinophils 01/07/2023 11:34:46 0.9 0.0-6.0 (%) Final Basos 01/07/2023 11:34:46 0.4 0.0-2.0 (%) Final Immature Granulocyte, Percent 01/07/2023 11:34:46 0.4 0.0-2.0 (%) Final Absolute Segs 01/07/2023 11:34:46 4.63 1.80-7.70 (K/uL) Final Lymphs, absolute 01/07/2023 11:34:46 1.66 1.00-4.80 (K/ul) Final Monos, Abs 01/07/2023 11:34:46 0.59 0.00-1.10 (K/uL) Final Eos, Abs 01/07/2023 11:34:46 0.06 0.00-0.70 (K/uL) Final Basos, Abs 01/07/2023 11:34:46 0.03 0.00-0.20 (K/uL) Final Immature Granulocytes, Number 01/07/2023 11:34:46 0.03 0.00-0.20 (K/uL) Final Performing Location [facility] [place] [address] [facility] [address]
--- OUTSIDE RECORDS SUMMARY | 2023-02-21 02:32 | External Medical Summary | Summary of Care ---
Author Name Unknown Organization [facility] Address [address] [place] [address] Phone [phone] Care Team Providers Care Vehicle Upholsterer Name Role Phone Carola Arrington MD Primary Care Provider Reason for Visit * Reason Comments eRx-Medication Refill Encounter Details Date Type Department Care Team Description 01/05/2023 Refill Family Practice [facility] [address] [facility] [address] Carola Arrington MD [address] [place] [address] Type 2 diabetes mellitus with stage 3b chronic kidney disease, without long-term current use of insulin (HCC); DM type 2, goal A1C to be determined ([facility]) Allergies No known active allergiesdocumented as of this encounter (statuses as of 01/06/2023) Medications Medication Sig Dispensed Refills Start Date End Date Status aspirin 81 MG chewable tablet Take 1 Tablet by mouth in the morning. 34 Tab 11 10/28/2017 Active nitroglycerin (NITROSTAT) 0.4 MG SUBLIndications:C hronic coronary artery disease DISSOLVE 1 TABLET UNDER THE TONGUE EVERY 5 MINUTES FOR CHEST PAIN. UP TO 3 DOSES IN 15 MINUTES. 25 Tab 1 11/17/2018 Active Additional Information Patient not taking.Informant: Patient, Reported on 12/02/2022 Clopidogrel Bisulfate 75 MG Oral Tablet (pLAVix)Indicatio ns:Aortocoronary bypass status,Acute coronary syndrome (HCC),Chronic coronary artery disease,Enlarged aorta (HCC) TAKE 1 TABLET BY MOUTH EVERY DAY 100 Tablet 1 07/24/2022 Active Amiodarone HCl 200 MG Oral Tablet (Cordarone)Indica tions:Paroxysmal A-fib (HCC) Take 1 Tablet by mouth daily. 30 Tablet 5 12/06/2022 Active Isosorbide Mononitrate ER 120 MG Oral Tablet Extended Release 24 Hour (Imdur) TAKE 1 TABLET BY MOUTH EVERY MORNING 90 Tablet 1 12/12/2022 Active Rosuvastatin Calcium 20 MG Oral Tablet (Crestor)Indicati ons:Dyslipidemia, goal LDL below 70 TAKE 1 TABLET DAILY 90 Tablet 3 12/23/2022 Active Ranolazine ER 1000 MG Oral Tablet Extended Release 12 Hour Take 1 Tablet by mouth in the morning and 1 Tablet before bedtime. 180 Tablet 3 12/23/2022 Active Insulin Glargine Solostar 100 UNIT/ML Subcutaneous Solution Pen-injector (Lantus SoloStar)Indicati ons:DM type 2, goal A1C to be determined ([facility]),Type 2 diabetes mellitus with stage 3b chronic kidney disease, without long-term current use of insulin ([facility]) Inject 25 Units under the skin every evening. 15 mL 3 12/30/2022 Active metFORMIN HCl ER 500 MG Oral Tablet Extended Release 24 Hour (Glucophage XR)Indications:DM type 2, goal A1C to be determined ([facility]) TAKE 2 TABLET BY MOUTH IN THE MORNING AND 1 TABLETS IN THE EVENING WITH FOOD 270 Tablet 1 12/30/2022 Active BD Pen Needle Emperatriz 2nd Gen 32G X 4 MM (Insulin Pen Needle)Indication s:Type 2 diabetes mellitus with stage 3b chronic kidney disease, without long-term current use of insulin (HCC),DM type 2, goal A1C to be determined (HCC) USE WITH INSULIN PEN DAILY 100 Each 1 01/06/2023 Active BD Pen Needle Emperatriz 2nd Gen 32G X 4 MM (Insulin Pen Needle)Indication s:Type 2 diabetes mellitus with stage 3b chronic kidney disease, without long-term current use of insulin ([facility]),DM type 2, goal A1C to be determined ([facility]) USE WITH INSULIN PEN EVERY DAY 100 Each 1 07/24/2022 01/07/20 23 Discontinued documented as of this encounter (statuses as of 01/06/2023) Active Problems Problem Noted Date Paroxysmal A-fib [...] with wider margins) Staging: Stage 0 - [id number] - Melanoma in situ Type 2 diabetes [...] #27. Dyslipidemia, goal LDL below 70 05/01/20 09 Overview: Per Lipid Taxonomy. 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 at prior visit S/P angioplasty with stent Overview: drug eluting 09/15/09 Plavix x 12m DM type 2, goal A1C to be determined documented as of this encounter (statuses as of 01/06/2023) Resolved Problems Problem Noted Date Resolved Date Stage 3a chronic kidney disease 08/09/2022 08/29/2022 Hypertensive kidney disease with chronic kidney disease stage III 12/10/2018 03/30/2020 Overview: Per CKD protocol Diabetes mellitus with stage 3 chronic kidney di sease 08/26/2017 09/28/2020 Overview: Per CKD protocol #1 HTN, GOAL BELOW 140/80 01/06/2012 6 Overview: Per HTN Protocol #27. Unstable angina 11/23/2011 10/24/2016 Chest pain 11/22/2011 10/24/2016 NSTEMI (non-ST elevated myocardial infarction) 0 11/22/2011 12/30/2016 Acute coronary syndrome 09/15/2009 10/25/19 17 Enlarged aorta 09/15/2009 04/27/2019 Overview: Aortic root 4.4 cm 4.29.2009 echo at [facility]. HTN, goal below 130/80 06/14/2009 2 Overview: Per HTN Taxonomy. Type 2 diabetes mellitus wit h hemoglobin A1c goal of less than 7.0% 03/02/2009 03/27/2011 Overview: Modified per Diabetes protocol #14. ICD-10 update of inactive term EXAMINATION OF PARTICIPANT IN CLINICAL TRIAL-gen omics 11/17/2008 09/01/2009 Overview: Renamed Per Clinical Trials Billing Project. Study Titile: Genomic Markers for Patients with Cardiovascular Disease Project #[id number] PI: Francoise Tomlin MD Please call [phone] with study related questions INTERFACED RESULT 11/17/2008 10/17/2011 GENOMICS CARDIO RESEARCH OTHER*[id number] 200806/25/2016 Overview: Renamed Per Clinical Trials Billing Project. Study Titile: Genomic Markers for Patients with Cardiovascular Disease Project #[id number] PI: Francoise Tomlin MD Please call [phone] with study related questions CLASS I-II ANGINA [...] as of this encounter (statuses as of 01/06/2023) Immunizations Name Administration Dates Next Due Pneumococcal [...] 5 Q uit: 05/19/1984 Smokeless Tobacco: Never Comments:quit 30 yrs ago, wh ile in [employer] for 4 years Alcohol Use Standard Drinks/Week [...] on file documented as of this encounter Miscellaneous Notes * Telephone Encounter - Jazmin Montemayor, [facility] - 01/06/2023 8:58 AM EDTSigned Prescriptions: Disp Refills BD Pen Needle Emperatriz 2nd Gen 32G X 4 MM (Ins*100 Ea*1 Sig: USE WITH INSULIN PEN DAILYAuthorizing Provider: CAROLA ARRINGTONOrdermarilu User: JAZMIN MONTEMAYOR------ Electronically signed by Jazmin Montemayor [facility] at 01/06/2023 8:58 AM EDT documented in this encounter Plan of Treatment Upcoming Encounters Date Type Specialty Care Team Description 02/12/2023 Office Visit Family Medicine Carola Arrington MD [address] [place] [address] 03/17/2023 Office Visit Pharmacy [facility] [place] [address] [place] [address] 08/14/2023 Office Visit Dermatology Lyssa Gar MD [address] [place] [address] Health Maintenance Due Date Last Done Comments [...] Additional history exists CKD HGB USE SMARTSET 33978 12/03/202312/02, 12/02/2022, 11/25/2022, Additional history exists CKD PHOS USE SMARTSET 02466 12/03/202311/16, 09/15/2020, 04/18/2020, Additional history exists Pneumococcal [...] as of this encounter Visit Diagnoses Diagnosis Type 2 diabetes mellitus with stage 3b chronic kidney disease, without long-term current use of insulin (HCC) DM type 2, goal A1C to be determined (HCC) Type II or unspecified type diabetes mellitus without mention of complication, not stated as uncontrolled documented in this encounter Advance Directives Latest [...] the patient have Health Care Power of Oil Tanker Captain? Yes, not currently available Code Status History Code Status Date Activated Date Inactivated Comments Full Code 09/15/2009 2:06 PM 09/16/2009 8:49 PM This o rder reflects the patients wishes and were consensually agreed upon. Question Answer Comments Discussion of Advance Directives occurred with: Patient/Family Does the patient have a Living Will? No Does the patient have Health Care Power of Oil Tanker Captain? No Full Code 11/25/2008 1:50 PM 11/29/2008 9:11 PM This order reflects the patients wishes and were consensually agreed upon. Question Answer Comments Discussion of Advance Directives occurred with: Patient Care Teams Vehicle Upholsterer Relationship Specialty Start Date End Date Carola Arrington MD [address] [place] [address] PCP - General Internal Medicine 12/19/20 documented as of this encounter
--- OUTSIDE RECORDS SUMMARY | 2023-02-21 02:32 | External Medical Summary ---
Author Name Unknown Address Unknown Organization K01:LABORATORY [facility] - [address] [place] [address] Laboratory Report Ordering Provider Test Date Status RONALD EVANS 01/07/2023 11:34:46 Final Observation Date Value Abnormality Reference (Units ) Status TSH 01/07/2023 11:34:46 5.84 Above high normal 0. 27-4.20 (uIU/mL) Final Performing Location LABORATORY [facility] - [address] [place] [address]
--- OUTSIDE RECORDS SUMMARY | 2023-02-21 02:32 | External Medical Summary | Summary of Care ---
Author Name Unknown Organization [facility] Address [address] [place] [address] Phone [phone] Care Team Providers Care Pastoral Worker Name Role Phone Carola Arrington MD Primary Care Provider Reason for Visit * Reason Onset Date Comments Test Results 01/08/2023 Encounter Details Date Type Department Care Team Description 01/08/2023 Telephone Family Practice [facility] [address] [place] [address] Nathan Cardenas DO [address] [place] [address] Test Results (/) Allergies No known active allergiesdocumented as of this encounter (statuses as of 01/08/2023) Medications Medication Sig Dispensed Refills Start Date End Date Status aspirin 81 MG chewable tablet Take 1 Tablet by mouth in the morning. 34 Tab 11 10/28/2017 Active nitroglycerin (NITROSTAT) 0.4 MG SUBLIndications:Evaporator Repairer shanique coronary artery disease DISSOLVE 1 TABLET UNDER THE TONGUE EVERY 5 MINUTES FOR CHEST PAIN. UP TO 3 DOSES IN 15 MINUTES. 25 Tab 1 11/17/2018 Active Additional Information Patient not taking.Informant: Patient, Reported on 12/02/2022 Clopidogrel Bisulfate 75 MG Oral Tablet (pLAVix)Indications: Aortocoronary bypass status,Acute coronary syndrome (HCC),Chronic coronary artery disease,Enlarged aorta (HCC) TAKE 1 TABLET BY MOUTH EVERY DAY 100 Tablet 1 07/24/2022 Active Amiodarone HCl 200 MG Oral Tablet (Cordarone)Indicatio ns:Paroxysmal A-fib (HCC) Take 1 Tablet by mouth daily. 30 Tablet 5 12/06/2022 Active Isosorbide Mononitrate ER 120 MG Oral Tablet Extended Release 24 Hour (Imdur) TAKE 1 TABLET BY MOUTH EVERY MORNING 90 Tablet 1 12/12/2022 Active Rosuvastatin Calcium 20 MG Oral Tablet (Crestor)Indications :Dyslipidemia, goal LDL below 70 TAKE 1 TABLET DAILY 90 Tablet 3 12/23/2022 Active Ranolazine ER 1000 MG Oral Tablet Extended Release 12 Hour Take 1 Tablet by mouth in the morning and 1 Tablet before bedtime. 180 Tablet 3 12/23/2022 Active Insulin Glargine Solostar 100 UNIT/ML Subcutaneous Solution Pen-injector (Lantus SoloStar)Indications :DM type 2, goal A1C to be determined (HCC),Type 2 diabetes mellitus with stage 3b chronic kidney disease, without long-term current use of insulin ([facility]) Inject 25 Units under the skin [...] Gen 32G X 4 MM (Insulin Pen Needle)Indications:T ype 2 diabetes mellitus with stage 3b chronic kidney disease, without long-term current use of insulin (HCC),DM type 2, goal A1C to be determined (HCC) USE WITH INSULIN PEN DAILY 100 Each 1 01/06/2023 Active Levothyroxine Sodium 25 MCG Oral Tablet (Levoxyl)Indications :Acquired hypothyroidism Take 1 Tablet by mouth in the morning. (at least 30 min prior to breakfast or other meds). 30 Tablet 11 01/08/2023 Active documented as of this encounter (statuses as of 01/08/2023) Active Problems Problem Noted Date Paroxysmal A-fib [...] with wider margins) Staging: Stage 0 - [id number] - Melanoma in situ Type 2 diabetes [...] as of this encounter (statuses as of 01/08/2023) Resolved Problems Problem Noted Date Resolved Date [...] Aortic root 4.4 cm 4.29.2009 echo at [facility]. HTN, goal below 130/80 06/14/2009 2 Overview: Per HTN Taxonomy. Type 2 diabetes mellitus wit h hemoglobin A1c goal of less than 7.0% 03/02/2009 03/27/2011 Overview: Modified per Diabetes protocol #14. ICD-10 update of inactive term EXAMINATION OF PARTICIPANT IN CLINICAL TRIAL-gen omics 11/17/2008 09/01/2009 Overview: Renamed Per Clinical Trials Billing Project. Study Titile: Genomic Markers for Patients with Cardiovascular Disease Project #[id number] PI: Francoise Tomlin MD Please call [phone] with study related questions INTERFACED RESULT 11/17/2008 10/17/2011 GENOMICS CARDIO RESEARCH OTHER*[id number] 200806/25/2016 Overview: Renamed Per Clinical Trials Billing Project. Study Titile: Genomic Markers for Patients with Cardiovascular Disease Project #[id number] PI: Francoise Tomlin MD Please call [phone] with study related questions CLASS I-II ANGINA [...] as of this encounter (statuses as of 01/08/2023) Immunizations Name Administration Dates Next Due Pneumococcal Conjugate Vacc, 13 Valent (Prevnar) 01/18/2016 Pneumococcal Polysaccharide PPV23 (Pneumovax) 11/20/2004 Seasonal Influenza, PF, 6 mo ns & Above, IM , (Flulaval) 03/01/2018 Seasonal Influenza, Quadrivalent, ID 02/21/2020 Seasonal Influenza, Quadriva lent, No Preserve, IM 03/02/2017 Seasonal Influenza, Split, I IV3, With Preserve, Inj 02/16/2013,03/09/2012,01/30/2011,02/07,03/24/2008,05/21/2004 Seasonal Influenza, Trivalen t, Adjuvanted, 65+ yrs 03/02/2019 TDAP (age 10 and older)(Boostrix) 07/10/2012 documented as of this encounter Social History Tobacco Use Types Packs/Day Years Used Date Smoking Tobacco: Former Cigarettes 0.5 5 Q uit: 05/19/1984 Smokeless Tobacco: Never Comments:quit 30 yrs ago, wh ile in [employer] for 4 years Alcohol Use Standard Drinks/Week [...] as of this encounter Miscellaneous Notes * Addendum Note - Nathan Cardenas DO - 01/08/2023 1:47 PM EDTAddended by: NATHAN CARDENAS on: 01/08/2023 01:47 PM Modules accepted: Orders * Telephone Encounter - Nathan Cardenas DO - 01/08/2023 1:46 PM EDT Thyroid ab neg With labs trending up lets begin levothyroxine low dose and recheck labs in 4-6 weeks Thank you * Telephone Encounter - Sangita Rodriguez LPN - 01/08/2023 1:08 PM EDT Patient's aware and verbalized understanding * Telephone Encounter - Nathan Cardenas DO - 01/08/2023 11:22 AM EDT Please call no acute lab abnormalities Mild elevation in TSH, will check thyroid antibodies. Will be in touch - to consider starting on levothyroxine for hypothyroidism. Thank you documented in this encounter Plan of Treatment Upcoming Encounters Date Type Specialty Care Team Description 02/12/2023 Office Visit Family Medicine Carola Arrington MD [address] [facility] [place] [address] 03/17/2023 Office Visit Pharmacy [facility] [address] [place] [address] 08/14/2023 Office Visit Dermatology Lyssa Gar MD [address] [place] [address], [place] [address] Scheduled Orders Name Type Priority Associated Diagnoses Orde r Schedule TSH WITH FREE T4 IF INDICATED Lab Routine Acquired hypothyroidism Expected: 02/08/2023 (Approximate), Expires: 01/08/2024 Health Maintenance Due Date Last Done Comments [...] 11/25/2022, 06/20, 04/27/2021, Additional history exists CKD PHOS USE SMARTSET 04658 12/03/202311/16, 09/15/2020, 04/18/2020, Additional history exists CKD HGB USE SMARTSET 35199 01/08/202401/07, 01/07/2023, 12/02/2022, Additional history exists Pneumococcal Vaccine: 65+ Years [...] Not on filedocumented as of this encounter Results * THYROID ANTIBODY AND TPO ANTIBODY (01/07/2023 11:34 AM EDT) Thyroid Peroxidase Antibody 8.4 <34.0 IU/mL 01/08/2023 1:37 PM EDT [facility] Thyroglobulin Antibody 13.0 <115.0 IU/mL 01/08/2023 1:37 PM EDT LAB[facility]ATORY [facility] Blood Venous blood specimen / Unknown Venipuncture / Unknown 01/07/2023 11:34 AM EDT 01/07/2023 11:34 AM EDT Nathan Cardenas DO LAB BLOOD ORDERABLE S [facility] [address] [facility] [place] [address] documented in this encounter Visit Diagnoses Diagnosis Elevated TSH- Primary Other abnormal blood chemistry Acquired hypothyroidism Unspecified hypothyroidism documented in this encounter Advance Directives Latest [...] the patient have Health Care Power of Sole Assessor? Yes, not currently available Code Status History Code Status Date Activated Date Inactivated Comments Full Code 09/15/2009 2:06 PM 09/16/2009 8:49 PM This o rder reflects the patients wishes and were consensually agreed upon. Question Answer Comments Discussion of Advance Directives occurred with: Patient/Family Does the patient have a Living Will? No Does the patient have Health Care Power of Sole Assessor? No Full Code 11/25/2008 1:50 PM 11/29/2008 9:11 PM This order reflects the patients wishes and were consensually agreed upon. Question Answer Comments Discussion of Advance Directives occurred with: Patient Care Teams Pastoral Worker Relationship Specialty Start Date End Date Carola Arrington MD [address] [place] [address] PCP - General Internal Medicine 12/19/20 documented as of this encounter
--- OUTSIDE RECORDS SUMMARY | 2023-02-21 02:32 | External Medical Summary ---
Author Name Unknown Address Unknown Organization K01:[facility] - [address] [place] [address] Laboratory Report Ordering Provider Test Date Status RONALD EVANS 01/07/2023 11:34:46 Final Observation Date Value Abnormality Reference (Units ) Status WBC, Total 01/07/2023 11:34:46 7.00 4.00-10.8 0 (K/uL) Final RBC 01/07/2023 11:34:46 4.21 4.50-5.25 (M/uL) Final Hemoglobin 01/07/2023 11:34:46 13.4 Below low normal 14 .0-16.8 (g/dL) Final Performing Location LABORATORY C - [address] [place] [address]
--- OUTSIDE RECORDS SUMMARY | 2023-02-21 02:32 | External Medical Summary ---
Author Name Unknown Address Unknown Organization K01:LABORATORY [facility] [place] - [facility] [address] [place] [address] Laboratory Report Ordering Provider Test Date Status RONALD EVANS 01/07/2023 11:34:46 Final Observation Date Value Abnormality Reference (Units ) Status Thyroperoxidase Ab [Units/volume] in Serum or Plasma by Immunoassay 01/07/2023 11:34:46 8.4 <34.0 (IU/mL) Final Thyroglobulin Ab 01/07/2023 11:34:46 13.0 <115.0 (IU/mL) Final Performing Location LABORATORY [facility] - [facility] [place] [address]
--- OUTSIDE RECORDS SUMMARY | 2023-02-21 02:32 | External Medical Summary | Summary of Care ---
Author Name Unknown Organization [facility] Address [address] [place] [address] Phone [phone] Care Team Providers Care Wire Temperer Name Role Phone Carola Arrington MD Primary Care Provider Reason for Visit * Reason Onset Date Comments Test Results 01/08/2023 Encounter Details Date Type Department Care Team Description 01/08/2023 Telephone Family Practice [facility] [address] [place] [address] Nathan Cardenas DO [address] [place] [address] Test Results (/) Allergies No known active allergiesdocumented as of this encounter (statuses as of 01/08/2023) Medications Medication Sig Dispensed Refills Start Date End Date Status aspirin 81 MG chewable tablet Take 1 Tablet by mouth in the morning. 34 Tab 11 10/28/2017 Active nitroglycerin (NITROSTAT) 0.4 MG SUBLIndications:B2B Managed Service Sales Exec shanique coronary artery disease DISSOLVE 1 TABLET [...] disease, without long-term current use of insulin ([facility]) Inject 25 Units under the skin every [...] with wider margins) Staging: Stage 0 - [id number] - Melanoma in situ Type 2 diabetes [...] Aortic root 4.4 cm 4.29.2009 echo at [facility]. HTN, goal below 130/80 06/14/2009 2 Overview: Per HTN Taxonomy. Type 2 diabetes mellitus wit h hemoglobin A1c goal of less than 7.0% 03/02/2009 03/27/2011 Overview: Modified per Diabetes protocol #14. ICD-10 update of inactive term EXAMINATION OF PARTICIPANT IN CLINICAL TRIAL-gen omics 11/17/2008 09/01/2009 Overview: Renamed Per Clinical Trials Billing Project. Study Titile: Genomic Markers for Patients with Cardiovascular Disease Project #[id number] PI: Francoise Tomlin MD Please call [phone] with study related questions INTERFACED RESULT 11/17/2008 10/17/2011 GENOMICS CARDIO RESEARCH OTHER*[id number] 200806/25/2016 Overview: Renamed Per Clinical Trials Billing Project. Study Titile: Genomic Markers for Patients with Cardiovascular Disease Project #[id number] PI: Francoise Tomlin MD Please call [phone] with study related questions CLASS I-II ANGINA [...] Comments:quit 30 yrs ago, wh ile in [employer] for 4 years Alcohol Use Standard Drinks/Week [...] encounter Miscellaneous Notes * Telephone Encounter - REGGIE Recinos - 01/08/2023 2:04 PM EDT message left for patient to call back. * Addendum Note - Nathan Cardenas DO [...] Visit Family Medicine Carola Arrington MD [address] [address] 03/17/2023 Office Visit Pharmacy [facility] Stephanie [address] [place] [address] 08/14/2023 Office Visit Dermatology Lyssa Gar MD [address] [place], [place] [address] [address] Scheduled Orders Name Type Priority Associated Diagnoses [...] Additional history exists CKD PHOS USE SMARTSET 00653 12/03/202311/16, 09/15/2020, 04/18/2020, Additional history exists CKD HGB USE SMARTSET 90699 01/08/202401/07, 01/07/2023, 12/02/2022, Additional history exists Pneumococcal [...] <115.0 IU/mL 01/08/2023 1:37 PM EDT [facility] Blood Venous blood specimen / Unknown Venipuncture / Unknown 01/07/2023 11:34 AM EDT 01/07/2023 11:34 AM EDT Nathan Boyd Ruddy DO LAB BLOOD ORDERABLE S [facility] [address] [place] [address] documented in this encounter Visit Diagnoses Diagnosis [...] the patient have Health Care Power of Optimization Manager? Yes, not currently available Code Status History Code Status Date Activated Date Inactivated Comments Full Code 09/15/2009 2:06 PM 09/16/2009 8:49 PM This o rder reflects the patients wishes and were consensually agreed upon. Question Answer Comments Discussion of Advance Directives occurred with: Patient/Family Does the patient have a Living Will? No Does the patient have Health Care Power of Optimization Manager? No Full Code 11/25/2008 1:50 PM 11/29/2008 9:11 PM This order reflects the patients wishes and were consensually agreed upon. Question Answer Comments Discussion of Advance Directives occurred with: Patient Care Teams Wire Temperer Relationship Specialty Start Date End Date Carola Arrington MD [address] [place] [address] PCP - General Internal Medicine 12/19/20 documented as of this encounter
--- OUTSIDE RECORDS SUMMARY | 2023-02-21 02:32 | External Medical Summary | Summary of Care ---
Author Name Unknown Organization [facility] Address [address] [place] [address] Phone [phone] Care Team Providers Care Administrator Social Welfare Name Role Phone Carola Arrington MD Primary Care Provider Reason for Visit * Reason Onset Date Comments Test Results 01/08/2023 Encounter Details Date Type Department Care Team Description 01/08/2023 Telephone Family Practice [facility] [address] [place] [address] Kierra Fox DO [address] [place] [address] Test Results (/) Allergies No [...] disease, without long-term current use of insulin ([facility]) Inject 25 Units under the skin every [...] with wider margins) Staging: Stage 0 - [id number] - Melanoma in situ Type 2 diabetes [...] Aortic root 4.4 cm 4.29.2009 echo at [facility]. HTN, goal below 130/80 06/14/2009 2 Overview: Per HTN Taxonomy. Type 2 diabetes mellitus wit h hemoglobin A1c goal of less than 7.0% 03/02/2009 03/27/2011 Overview: Modified per Diabetes protocol #14. ICD-10 update of inactive term EXAMINATION OF PARTICIPANT IN CLINICAL TRIAL-gen omics 11/17/2008 09/01/2009 Overview: Renamed Per Clinical Trials Billing Project. Study Titile: Genomic Markers for Patients with Cardiovascular Disease Project #[id number] PI: Francoise Tomlin MD Please call [phone] with study related questions INTERFACED RESULT 11/17/2008 10/17/2011 GENOMICS CARDIO RESEARCH OTHER*[id number] 200806/25/2016 Overview: Renamed Per Clinical Trials Billing Project. Study Titile: Genomic Markers for Patients with Cardiovascular Disease Project #[id number] PI: Francoise Tomlin MD Please call [phone] with study related questions CLASS I-II ANGINA [...] Comments:quit 30 yrs ago, wh ile in [employer] for 4 years Alcohol Use Standard Drinks/Week [...] encounter Miscellaneous Notes * Telephone Encounter - Sangita Rodriguez LPN - 01/08/2023 1:08 PM EDT Patient's aware and verbalized understanding * Telephone Encounter - Kierra Fox DO - 01/08/2023 11:22 AM EDT Please call no acute lab abnormalities Mild elevation in TSH, will check thyroid antibodies. Will be in touch - to consider starting on levothyroxine for hypothyroidism. Thank you documented in this encounter Plan of Treatment Upcoming Encounters Date Type Specialty Care Team Description 02/12/2023 Office Visit Family Medicine Carola Arrington MD [address] [place] [address] 03/17/2023 Office Visit Pharmacy [facility] [address] [place] [address] 08/14/2023 Office Visit Dermatology Lyssa Gar MD [address] [place] [address] Pending Results Name Type Priority Associated Diagnoses Date /Time THYROID ANTIBODY AND TPO ANTIBODY Lab Routine Elevated TSH 01/07/2023 11:34 AM EDT Scheduled Orders Name Type Priority Associated Diagnoses Orde r Schedule THYROID ANTIBODY AND TPO ANTIBODY Lab Routine Elevated TSH Expected: 01/08/2023 (Approximate), Expires: 01/08/2024 Health Maintenance Due Date [...] Additional history exists CKD PHOS USE SMARTSET 33970 12/03/202311/16, 09/15/2020, 04/18/2020, Additional history exists CKD HGB USE SMARTSET 17734 01/08/202401/07, 01/07/2023, 12/02/2022, Additional history exists Pneumococcal [...] as of this encounter Visit Diagnoses Diagnosis Elevated TSH- Primary Other abnormal blood chemistry documented in this encounter Advance Directives Latest [...] the patient have Health Care Power of Razor Sharpener? Yes, not currently available Code Status History Code Status Date Activated Date Inactivated Comments Full Code 09/15/2009 2:06 PM 09/16/2009 8:49 PM This o rder reflects the patients wishes and were consensually agreed upon. Question Answer Comments Discussion of Advance Directives occurred with: Patient/Family Does the patient have a Living Will? No Does the patient have Health Care Power of Razor Sharpener? No Full Code 11/25/2008 1:50 PM 11/29/2008 9:11 PM This order reflects the patients wishes and were consensually agreed upon. Question Answer Comments Discussion of Advance Directives occurred with: Patient Care Teams Administrator Social Welfare Relationship Specialty Start Date End Date Carola Arrington MD [address] [place] [address] PCP - General Internal Medicine 12/19/20 documented as of this encounter
--- OUTSIDE RECORDS SUMMARY | 2023-02-21 02:32 | External Medical Summary ---
Author Name Unknown Address Unknown Organization K01:LABORATORY [facility] - [address] [place] [address] Laboratory Report Ordering Provider Test Date Status RONALD EVANS 01/07/2023 11:34:46 Final Observation Date Value Abnormality Reference (Units ) Status BNP, Pro-hormone 01/07/2023 11:34:46 855 Above high no rmal <300 (pg/mL) Final Performing Location LABORATORY [facility] - [address] [place] [address]
--- OUTSIDE RECORDS SUMMARY | 2023-02-21 02:32 | External Medical Summary | Summary of Care ---
Author Name Unknown Organization [facility] Address [address] [place] [address] Phone [phone] Care Team Providers Care Crude Oil Treater Name Role Phone Carola Arrington MD Primary Care Provider Reason for Visit * Reason Comments Outpatient Testing Encounter Details Date Type Department Care Team Description 01/07/2023 Laboratory Laboratory, [facility] [address] [place] [id number] [facility] [address] [place] [address] Anemia, unspecified type; Generalized weakness; Malaise and fatigue Allergies No known active [...] disease, without long-term current use of insulin ([facility]) Inject 25 Units under the skin every evening. 15 mL 3 12/30/2022 Active metFORMIN HCl ER 500 MG Oral Tablet Extended Release 24 Hour (Glucophage XR)Indications:DM type 2, goal A1C to be determined ([facility]) TAKE 2 TABLET BY MOUTH IN THE MORNING AND 1 TABLETS IN THE EVENING WITH FOOD 270 Tablet 1 12/30/2022 Active BD Pen Needle Emperatriz 2nd Gen 32G X 4 MM (Insulin Pen Needle)Indications: Type 2 diabetes mellitus with stage 3b chronic kidney disease, without long-term current use of insulin (HCC),DM type 2, goal A1C to be determined ([facility]) USE WITH INSULIN PEN DAILY 100 Each [...] with wider margins) Staging: Stage 0 - [id number] - Melanoma in situ Type 2 diabetes [...] Aortic root 4.4 cm 4.29.2009 echo at [facility]. HTN, goal below 130/80 06/14/2009 [...] Markers for Patients with Cardiovascular Disease Project #[id number] PI: Francoise Tomlin MD Please call [phone] with study related questions INTERFACED RESULT 11/17/2008 10/17/2011 GENOMICS CARDIO RESEARCH OTHER*[id number] 200806/25/2016 Overview: Renamed Per Clinical Trials Billing Project. Study Titile: Genomic Markers for Patients with Cardiovascular Disease Project #[id number] PI: Francoise Tomlin MD Please call [phone] with study related questions CLASS I-II ANGINA [...] Comments:quit 30 yrs ago, wh ile in [employer] for 4 years Alcohol Use Standard Drinks/Week [...] on file documented as of this encounter Plan of Treatment Upcoming Encounters Date Type Specialty Care Team Description 02/12/2023 Office Visit Family Medicine Carola Arrington MD [address] [place] [address] 03/17/2023 Office Visit Pharmacy [facility] Stephanie [address] [place] [address] 08/14/2023 Office Visit Dermatology Lyssa Gar MD [address] [place], [place] [address] [address] Pending Results Name Type Priority Associated Diagnoses Date /Time CBC WITH WBC DIFFERENTIAL AND ANEMIA REFLEX WORKUP Lab Routine Anemia, unspecified type 01/07/2023 11:34 AM EDT COMPREHENSIVE METABOLIC PANEL Lab Routine Generalized weakness Malaise and fatigue 01/07/2023 11:34 AM EDT TSH WITH FREE T4 IF INDICATED Lab Routine Generalized weakness Malaise and fatigue 01/07/2023 11:34 AM EDT BNP, NT-PRO Lab Routine Generalized weakness Malaise and fatigue 01/07/2023 11:34 AM EDT ANEMIA CBC Lab Routine Anemia, unspecified type 01/07/2023 11:34 AM EDT DIFFERENTIAL, AUTOMATED Lab Routine Anemia, unspecified type 01/07/2023 11:34 AM EDT ANEMIA REFLEX CHEMISTRY HOLD Lab Routine Anemia, unspecified type 01/07/2023 11:34 AM EDT Health Maintenance Due Date Last Done Comments [...] Additional history exists CKD HGB USE SMARTSET 58518 12/03/202312/02, 12/02/2022, 11/25/2022, Additional history exists CKD PHOS USE SMARTSET 46683 12/03/202311/16, 09/15/2020, 04/18/2020, Additional history exists Pneumococcal [...] as of this encounter Visit Diagnoses Diagnosis Anemia, unspecified type Generalized weakness Other malaise [...] the patient have Health Care Power of Electrotype Molder? Yes, not currently available Code Status History Code Status Date Activated Date Inactivated Comments Full Code 09/15/2009 2:06 PM 09/16/2009 8:49 PM This o rder reflects the patients wishes and were consensually agreed upon. Question Answer Comments Discussion of Advance Directives occurred with: Patient/Family Does the patient have a Living Will? No Does the patient have Health Care Power of Electrotype Molder? No Full Code 11/25/2008 1:50 PM 11/29/2008 9:11 PM This order reflects the patients wishes and were consensually agreed upon. Question Answer Comments Discussion of Advance Directives occurred with: Patient Care Teams Crude Oil Treater Relationship Specialty Start Date End Date Carola Arrington MD [address] [place] [address] PCP - General Internal Medicine 12/19/20 documented as of this encounter
--- OUTSIDE RECORDS SUMMARY | 2023-02-21 02:33 | External Medical Summary | Summary of Care ---
Author Name Unknown Organization [facility] Address [address] [place] [address] Phone [phone] Care Team Providers Care Residential Solar Consultant Name Role Phone Carola Arrington MD Primary Care Provider Reason for Referral * Precert (Within 10 days (routine)) - Pending Review Specialty Diagnoses / Procedures Referred By Contharjinder t Referred To Contact Radiology Diagnoses Recurrent falls Osteoarthritis of lumbar spine, unspecified spinal osteoarthritis complication status Foot drop, right Weakness of both lower extremities Procedures MRI L SPINE WO CONTRAST Kierra Fox DO [address] [place] [address] Referral ID Status Reason Start Date Expiration Date V isits Requested Visits Authorized [id number] Pending Review 12/06/2022 999 999 Reason for Visit * Reason Onset Date Comments Test Results 12/05/2022 Encounter Details Date Type Department Care Team Description 12/05/2022 Telephone Family Practice [facility] [address] [place] [address] Kierra Fox DO [address] [place] [address] Test Results (/) Allergies No known active allergiesdocumented as of this encounter (statuses as of 12/27/2022) Medications Medication Sig Dispensed Refills Start Date End Date Status aspirin 81 MG chewable tablet Take 1 Tablet by mouth in the morning. 34 Tab 11 10/29/19 18 Active nitroglycerin (NITROSTAT) 0.4 MG SUBLIndications: Chronic coronary artery disease DISSOLVE 1 TABLET UNDER THE TONGUE EVERY 5 MINUTES FOR CHEST PAIN. UP TO 3 DOSES IN 15 MINUTES. 25 Tab 1 11/18/19 19 Active Additional Information Patient not taking.Informant: Patient, Reported on 12/02/2022 Lantus SoloStar 100 UNIT/ML Subcutaneous Solution Pen-injector (Insulin Glargine Solostar)Indicat ions:DM type 2, goal A1C to be determined ([facility]),Type 2 diabetes mellitus with stage 3b chronic kidney disease, without long-term current use of insulin ([facility]) INJECT 22 UNITS SUBCUTANEOUSLY (UNDER THE SKIN) IN THE MORNING OR DIRECTED 15 mL 3 04/16/20 22 Active Additional Information Patient taking differently: 25 Units Subcutaneous [id number], Reported on 09/30/2022 metFORMIN HCl ER 500 MG Oral Tablet Extended Release 24 Hour (Glucophage XR)Indications:D M type 2, goal A1C to be determined ([facility]) TAKE 3 TABLETS BY MOUTH EVERY DAY WITH FOOD 270 Tablet 1 07/04/19 23 Active Additional Information Patient taking differently: TAKE 2 TABLET BY MOUTH IN THE MORNING AND 1 TABLETS IN THE EVENING WITH FOOD, Reported on 12/23/2022 Clopidogrel Bisulfate 75 MG Oral Tablet (pLAVix)Indicati ons:Aortocoronar y bypass status,Acute coronary syndrome (HCC),Chronic coronary artery disease,Enlarged aorta (HCC) TAKE 1 TABLET BY MOUTH EVERY DAY 100 Tablet 1 07/25/19 23 Active BD Pen Needle Emperatriz 2nd Gen 32G X 4 MM (Insulin Pen Needle)Indicatio ns:Type 2 diabetes mellitus with stage 3b chronic kidney disease, without long-term current use of insulin (HCC),DM type 2, goal A1C to be determined ([facility]) USE WITH INSULIN PEN EVERY DAY 100 Each 1 07/25/19 23 Active Isosorbide Mononitrate ER 120 MG Oral Tablet Extended Release 24 Hour (Imdur) TAKE 1 TABLET BY MOUTH EVERY MORNING 90 Tablet 1 06/14/19 23 023 Discontinued Ranolazine ER 1000 MG Oral Tablet Extended Release 12 HourIndications: Chest pain,Unstable angina (HCC) TAKE 1 TABLET TWICE A DAY 180 Tablet 3 08/28/19 23 023 Discontinued(Re fill) Amiodarone HCl 200 MG Oral Tablet (Cordarone) TAPER DIRECTED TAKE 1 TABLET BY MOUTH TWO TIMES DAILY FOR 7 DAYS THEN TAKE TAKE 1 TABLET BY MOUTH EVERY DAY 0 09/28/19 23 023 Discontinued(Re fill) Rosuvastatin Calcium 20 MG Oral Tablet (Crestor)Indicat ions:Dyslipidemi a, goal LDL below 70,Dyslipidemia, goal LDL below 160,Mixed dyslipidemia TAKE 1 TABLET IN THE MORNING 90 Tablet 2 11/13/19 23 023 Discontinued(Re fill) Cefdinir 300 MG Oral Capsule (Omnicef) Take 1 Capsule by mouth in the morning and 1 Capsule before bedtime. 0 12/01/19 23 023 Discontinued(Kristofer gurrola preference/disc ontinuation) documented as of this encounter (statuses as of 12/27/2022) Active Problems Problem Noted Date Paroxysmal A-fib [...] with wider margins) Staging: Stage 0 - [id number] - Melanoma in situ Type 2 diabetes [...] as of this encounter (statuses as of 12/27/2022) Resolved Problems Problem Noted Date Resolved Date [...] Aortic root 4.4 cm 4.29.2009 echo at [facility]. HTN, goal below 130/80 06/14/2009 2 Overview: Per HTN Taxonomy. Type 2 diabetes mellitus wit h hemoglobin A1c goal of less than 7.0% 03/02/2009 03/27/2011 Overview: Modified per Diabetes protocol #14. ICD-10 update of inactive term EXAMINATION OF PARTICIPANT IN CLINICAL TRIAL-gen omics 11/17/2008 09/01/2009 Overview: Renamed Per Clinical Trials Billing Project. Study Titile: Genomic Markers for Patients with Cardiovascular Disease Project #[id number] PI: Francoise Tomlin MD Please call [phone] with study related questions INTERFACED RESULT 11/17/2008 10/17/2011 GENOMICS CARDIO RESEARCH OTHER*[id number] 200806/25/2016 Overview: Renamed Per Clinical Trials Billing Project. Study Titile: Genomic Markers for Patients with Cardiovascular Disease Project #[id number] PI: Francoise Tomlin MD Please call [phone] with study related questions CLASS I-II ANGINA [...] as of this encounter (statuses as of 12/27/2022) Immunizations Name Administration Dates Next Due Pneumococcal Conjugate Vacc, 13 Valent (Prevnar) 01/18/2016 Pneumococcal Polysaccharide PPV23 (Pneumovax) 11/20/2004 Seasonal Influenza, Quadrivalent, ID 02/21/2020 Seasonal Influenza, Quadriva lent, No Preserve, 6 Mons & Above, IM 03/01/2018 Seasonal Influenza, Quadriva lent, No Preserve, IM [...] Comments:quit 30 yrs ago, wh ile in [employer] 4 years Alcohol Use Standard Drinks/Week [...] encounter Miscellaneous Notes * Telephone Encounter - Tahira Kaur LPN - 12/27/2022 11:09 AM EDT Tried to call and line busy at this time. * Telephone Encounter - Kierra Fox DO - 12/27/2022 10:33 AM EDT MRI was to be done for weakness in legs/falls Ok to hold off for now and PCP can re-eval next month Thank you * Telephone Encounter - Niya Lemus - 12/27/2022 8:41 AM EDT I called and spoke to , she has more questions on the need for this. She states hes not having any back pain but she also understands that the back can cause other issues. She states "hes 87, is the MRI really needed?" * Telephone Encounter - REGGIE Recinos ASSIST - 12/27/2022 8:36 AM EDT Patient informed. Please call and reschedule MRI. * Telephone Encounter - Niya Lemus - 12/27/2022 8:03 AM EDT Nursing spoke to his . Please call pt again to discuss and if he would like to schedule transfer to scheduling * Telephone Encounter - NERIS Araya - 12/26/2022 6:05 PM EDT Pt cancelled his MRI appt at [facility]. He states he does not know why this was ordered. Pls call pt to advise. Thank you, MRI scheduling * Telephone Encounter - Niya Lemus - 12/06/2022 1:55 PM EDT appt scheduled with * Telephone Encounter - Kierra Fox DO - 12/06/2022 1:46 PM EDT Please schedule mri * Telephone Encounter - REGGIE Recinos - 12/05/2022 3:07 PM EDT Patient's informed. Agreeable to MRI. Please order and schedule. No implants or metal foreign body. * Telephone Encounter - Kierra Fox DO - 12/05/2022 2:30 PM EDT Please call /pt: xray findings Moderate degenerative disc disease reflected as a decrease in disc space height and anterior endplate osteophytosis. Severe degenerative disc disease L4-L5. Mild degenerative retrolisthesis of 4-5 mm of L4 with respect to L5. Mild-severe DJD changes - I would recommend MRI of L spine to get better picture to see if nerve damage that could be cause for leg weakness Thank you documented in this encounter Plan of Treatment Upcoming Encounters Date Type Specialty Care Team Description 02/12/2023 Office Visit Family Medicine Carola Arrington MD [address] [place] [address] 03/17/2023 Office Visit Pharmacy [facility] Stephanie [address] [place] [address] 08/14/2023 [facility] [address] [facility] [address] Scheduled Orders Name Type Priority Associated Diagnoses Orde r Schedule MRI L SPINE WO CONTRAST Medical Imaging Routine Recurrent falls Osteoarthritis of lumbar spine, unspecified spinal osteoarthritis complication status Foot drop, right Weakness of both lower extremities Expected: 12/06/2022, Expires: 01/07/2024 Health Maintenance Due Date Last [...] Additional history exists CKD HGB USE SMARTSET 49691 12/03/202312/02, 12/02/2022, 11/25/2022, Additional history exists CKD PHOS USE SMARTSET 08541 12/03/202311/16, 09/15/2020, 04/18/2020, Additional history exists Pneumococcal [...] as of this encounter Visit Diagnoses Diagnosis Recurrent falls- Primary Personal history of fall Osteoarthritis of lumbar spine, unspecified spinal osteoarthritis complication status Foot drop, right Other acquired deformity of ankle and foot Weakness of both lower extremities documented in this encounter Advance Directives Latest [...] the patient have Health Care Power of Legal Researcher? Yes, not currently available Code Status History Code Status Date Activated Date Inactivated Comments Full Code 09/15/2009 2:06 PM 09/16/2009 8:49 PM This o rder reflects the patients wishes and were consensually agreed upon. Question Answer Comments Discussion of Advance Directives occurred with: Patient/Family Does the patient have a Living Will? No Does the patient have Health Care Power of Legal Researcher? No Full Code 11/25/2008 1:50 PM 11/29/2008 9:11 PM This order reflects the patients wishes and were consensually agreed upon. Question Answer Comments Discussion of Advance Directives occurred with: Patient Care Teams Residential Solar Consultant Relationship Specialty Start Date End Date Carola Arrington MD [address] [place] [address] PCP - General Internal Medicine 12/19/20 documented as of this encounter
--- OUTSIDE RECORDS SUMMARY | 2023-02-21 02:33 | External Medical Summary | Summary of Care ---
Author Name Unknown Organization [facility] Address [address] [place] [address] Phone [phone] Care Team Providers Care Industrial Designer Name Role Phone Carola Arrington MD Primary Care Provider Reason for Referral * Precert (Within 10 days (routine)) - Pending Review Specialty Diagnoses / Procedures Referred By Contharjinder t Referred To Contact Radiology Diagnoses Recurrent falls Osteoarthritis of lumbar spine, unspecified spinal osteoarthritis complication status Foot drop, right Weakness of both lower extremities Procedures MRI L SPINE WO CONTRAST Kierra Santoyo DO [address] [place] [address] Referral ID Status Reason Start Date Expiration Date V isits Requested Visits Authorized [id number] Pending Review 12/06/2022 999 999 Reason for Visit * Reason Onset Date Comments Test Results 12/05/2022 Encounter Details Date Type Department Care Team Description 12/05/2022 Telephone Family Practice [facility] [address] [place] [address] Kierra Santoyo DO [address] [place] [address] Test Results (/) Allergies No known active allergiesdocumented as of this encounter (statuses as of 12/30/2022) Medications Medication Sig Dispensed Refills Start Date [...] 12/02/2022 Clopidogrel Bisulfate 75 MG Oral Tablet (pLAVix)Indicati [...] 2, goal A1C to be determined ([facility]) USE WITH INSULIN PEN EVERY DAY 100 Each 1 07/25/19 23 Active Lantus SoloStar 100 UNIT/ML Subcutaneous Solution Pen-injector (Insulin Glargine Solostar)Indicat ions:DM type 2, goal A1C to be determined ([facility]),Type 2 diabetes mellitus with stage 3b chronic kidney disease, without long-term current use of insulin ([facility]) INJECT 22 UNITS SUBCUTANEOUSLY (UNDER THE SKIN) IN THE MORNING OR DIRECTED 15 mL 3 04/16/20 22 023 Discontinued Isosorbide Mononitrate ER 120 MG Oral Tablet Extended Release 24 Hour (Imdur) TAKE 1 TABLET BY MOUTH EVERY MORNING 90 Tablet 1 06/14/19 23 023 Discontinued metFORMIN HCl ER 500 MG Oral Tablet Extended Release 24 Hour (Glucophage XR)Indications:D M type 2, goal A1C to be determined ([facility]) TAKE 3 TABLETS BY MOUTH EVERY DAY WITH FOOD 270 Tablet 1 07/04/19 23 023 Discontinued Ranolazine ER 1000 MG [...] as of this encounter (statuses as of 12/30/2022) Active Problems Problem Noted Date Paroxysmal A-fib [...] with wider margins) Staging: Stage 0 - [id number] - Melanoma in situ Type 2 diabetes [...] as of this encounter (statuses as of 12/30/2022) Resolved Problems Problem Noted Date Resolved Date [...] Aortic root 4.4 cm 4.29.2009 echo at [facility]. HTN, goal below 130/80 06/14/2009 2 Overview: Per HTN Taxonomy. Type 2 diabetes mellitus wit h hemoglobin A1c goal of less than 7.0% 03/02/2009 03/27/2011 Overview: Modified per Diabetes protocol #14. ICD-10 update of inactive term EXAMINATION OF PARTICIPANT IN CLINICAL TRIAL-gen omics 11/17/2008 09/01/2009 Overview: Renamed Per Clinical Trials Billing Project. Study Titile: Genomic Markers for Patients with Cardiovascular Disease Project #[id number] PI: Francoise Tomlin MD Please call [phone] with study related questions INTERFACED RESULT 11/17/2008 10/17/2011 GENOMICS CARDIO RESEARCH OTHER*[id number] 200806/25/2016 Overview: Renamed Per Clinical Trials Billing Project. Study Titile: Genomic Markers for Patients with Cardiovascular Disease Project #[id number] PI: Francoise Tomlin MD Please call [phone] with study related questions CLASS I-II ANGINA [...] as of this encounter (statuses as of 12/30/2022) Immunizations Name Administration Dates Next Due Pneumococcal [...] Comments:quit 30 yrs ago, wh ile in [place] for 4 years Alcohol Use Standard Drinks/Week [...] Telephone Encounter - Tahira Kaur LPN - 12/30/2022 2:16 PM EDT Called and told message below from Dr Santoyo and they will keep apt next month with PCP. * Telephone Encounter - Tahira Kaur LPN - 12/27/2022 11:09 AM EDT Tried to call and line busy at this time. * Telephone Encounter - Kierra Santoyo DO - 12/27/2022 10:33 AM EDT MRI [...] needed?" * Telephone Encounter - REGGIE Recinos - 12/27/2022 8:36 AM EDT Patient informed. Please call and reschedule MRI. * Telephone Encounter - Niya Lemus - 12/27/2022 8:03 AM EDT Nursing spoke to his . Please call pt again to discuss and if he would like to schedule transfer to scheduling * Telephone Encounter - NERIS Araya - 12/26/2022 6:05 PM EDT Pt cancelled his MRI appt at [facility]. He states he does not know why this was ordered. Pls call pt to advise. Thank you, MRI scheduling * Telephone Encounter - Niya Lemus - 12/06/2022 1:55 PM EDT appt scheduled with * Telephone Encounter - Kierra Santoyo DO - 12/06/2022 1:46 PM EDT Please schedule mri * Telephone Encounter - REGGIE Recinos - 12/05/2022 3:07 PM EDT Patient's informed. Agreeable to MRI. Please order and schedule. No implants or metal foreign body. * Telephone Encounter - Kierra Santoyo DO - 12/05/2022 2:30 PM EDT Please [...] Family Medicine Carola Arrington MD [address] [place] [address] 03/17/2023 Office Visit Pharmacy [facility] [address] [place] [address] 08/14/2023 Office Visit Dermatology Lyssa Gar MD [address] [place] [address], [place] [address] Scheduled Orders Name Type Priority Associated Diagnoses [...] Additional history exists CKD HGB USE SMARTSET 93997 12/03/202312/02, 12/02/2022, 11/25/2022, Additional history exists CKD PHOS USE SMARTSET 79038 12/03/202311/16, 09/15/2020, 04/18/2020, Additional history exists Pneumococcal [...] the patient have Health Care Power of Technical Education Teacher? Yes, not currently available Code Status History Code Status Date Activated Date Inactivated Comments Full Code 09/15/2009 2:06 PM 09/16/2009 8:49 PM This o rder reflects the patients wishes and were consensually agreed upon. Question Answer Comments Discussion of Advance Directives occurred with: Patient/Family Does the patient have a Living Will? No Does the patient have Health Care Power of Technical Education Teacher? No Full Code 11/25/2008 1:50 PM 11/29/2008 9:11 PM This order reflects the patients wishes and were consensually agreed upon. Question Answer Comments Discussion of Advance Directives occurred with: Patient Care Teams Industrial Designer Relationship Specialty Start Date End Date Carola Arrington MD [address] [place] [address] PCP - General Internal Medicine 12/19/20 documented as of this encounter
--- OUTSIDE RECORDS SUMMARY | 2023-02-21 02:33 | External Medical Summary | Summary of Care ---
Author Name Unknown Organization [facility] Address [address] [place] [address] Phone [phone] Care Team Providers Care French Tutor Name Role Phone Carola Arrington MD Primary Care Provider Reason for Referral * Precert (Within 10 days (routine)) - Pending Review Specialty Diagnoses / Procedures Referred By Contharjinder t Referred To Contact Radiology Diagnoses Recurrent falls Osteoarthritis of lumbar spine, unspecified spinal osteoarthritis complication status Foot drop, right Weakness of both lower extremities Procedures MRI L SPINE WO CONTRAST Kierra Fox DO [address] [place] [address] Referral ID Status Reason Start Date Expiration Date V isits Requested Visits Authorized [id number] Pending Review 12/06/2022 999 999 Reason for Visit * Reason Onset Date Comments Test Results 12/05/2022 Encounter Details Date Type Department Care Team Description 12/05/2022 Telephone Family Practice [facility] [address] [place] [address] Kierra Fox DO [address] [place] [address] Test Results (/) Allergies No known active [...] type 2, goal A1C to be determined ([facility]),Type 2 diabetes mellitus with stage 3b chronic kidney disease, without long-term current use of insulin ([facility]) INJECT 22 UNITS SUBCUTANEOUSLY (UNDER THE SKIN) IN THE MORNING OR DIRECTED 15 mL 3 04/16/20 22 Active Additional Information Patient taking differently: 25 Units Subcutaneous [id number], Reported on 09/30/2022 metFORMIN HCl ER 500 MG Oral Tablet Extended Release 24 Hour (Glucophage XR)Indications:D M type 2, goal A1C to be determined ([facility]) TAKE 3 TABLETS BY MOUTH EVERY DAY [...] type 2, goal A1C to be determined ([facility]) USE WITH INSULIN PEN EVERY DAY 100 [...] with wider margins) Staging: Stage 0 - [id number] - Melanoma in situ Type 2 diabetes [...] Aortic root 4.4 cm 4.29.2009 echo at [facility]. HTN, goal below 130/80 06/14/2009 2 Overview: Per HTN Taxonomy. Type 2 diabetes mellitus wit h hemoglobin A1c goal of less than 7.0% 03/02/2009 03/27/2011 Overview: Modified per Diabetes protocol #14. ICD-10 update of inactive term EXAMINATION OF PARTICIPANT IN CLINICAL TRIAL-gen omics 11/17/2008 09/01/2009 Overview: Renamed Per Clinical Trials Billing Project. Study Titile: Genomic Markers for Patients with Cardiovascular Disease Project #[id number] PI: Francoise Tomlin MD Please call [phone] with study related questions INTERFACED RESULT 11/17/2008 10/17/2011 GENOMICS CARDIO RESEARCH OTHER*[id number] 200806/25/2016 Overview: Renamed Per Clinical Trials Billing Project. Study Titile: Genomic Markers for Patients with Cardiovascular Disease Project #[id number] PI: Francoise Tomlin MD Please call [phone] with study related questions CLASS I-II ANGINA [...] encounter Miscellaneous Notes * Telephone Encounter - Niya Lemus - [...] reschedule MRI. * Telephone Encounter - Niya Leums - 12/27/2022 8:03 AM EDT Nursing spoke to his . Please call pt again to discuss and if he would like to schedule transfer to scheduling * Telephone Encounter - NERIS Araya - 12/26/2022 6:05 PM EDT Pt cancelled his MRI appt at [facility]. He states he does not [...] Visit Family Medicine Carola Arrington MD [address] [place] [address] 03/17/[address] [facility] [address] [address] 08/14/2023 Office Visit Dermatology Lyssa Gar MD [address] [facility], [place] [address] Scheduled Orders Name Type Priority Associated Diagnoses [...] Additional history exists CKD HGB USE SMARTSET 37205 12/03/202312/02, 12/02/2022, 11/25/2022, Additional history exists CKD PHOS USE SMARTSET 77063 12/03/202311/16, 09/15/2020, 04/18/2020, Additional history exists Pneumococcal [...] the patient have Health Care Power of Postmaster Relief? Yes, not currently available Code Status History Code Status Date Activated Date Inactivated Comments Full Code 09/15/2009 2:06 PM 09/16/2009 8:49 PM This o rder reflects the patients wishes and were consensually agreed upon. Question Answer Comments Discussion of Advance Directives occurred with: Patient/Family Does the patient have a Living Will? No Does the patient have Health Care Power of Postmaster Relief? No Full Code 11/25/2008 1:50 PM 11/29/2008 9:11 PM This order reflects the patients wishes and were consensually agreed upon. Question Answer Comments Discussion of Advance Directives occurred with: Patient Care Teams French Tutor Relationship Specialty Start Date End Date Carola Arrington MD [address] [place] [address] PCP - General Internal Medicine 12/19/20 documented as of this encounter
--- OUTSIDE RECORDS SUMMARY | 2023-02-21 02:33 | External Medical Summary | Summary of Care ---
Author Name Unknown Organization [facility] Address [address] [place] [address] Phone [phone] Care Team Providers Care Employee Relations Manager Name Role Phone Carola Arrington MD Primary Care Provider Reason for Visit * Reason Comments eRx-Medication Refill Encounter Details Date Type Department Care Team Description 12/29/2022 Refill Family Practice [facility] [address] [facility] [address] Carola Arrington MD [address] [place] [facility] [place] [address] DM type 2, goal A1C to be determined ([facility]) Allergies No known active allergiesdocumented as of this encounter (statuses as of 12/30/2022) Medications Medication Sig Dispensed Refills Start Date End Date Status aspirin 81 MG chewable tablet Take 1 Tablet by mouth in the morning. 34 Tab 11 8 Active nitroglycerin (NITROSTAT) 0.4 MG SUBLIndications: Chronic coronary artery disease DISSOLVE 1 TABLET UNDER THE TONGUE EVERY 5 MINUTES FOR CHEST PAIN. UP TO 3 DOSES IN 15 MINUTES. 25 Tab 1 9 Active Additional Information Patient not taking.Informant: Patient, Reported on 12/02/2022 Clopidogrel Bisulfate 75 MG Oral Tablet (pLAVix)Indicati ons:Aortocoronar y bypass status,Acute coronary syndrome (HCC),Chronic coronary artery disease,Enlarged aorta (HCC) TAKE 1 TABLET BY MOUTH EVERY DAY 100 Tablet 1 3 Active BD Pen Needle Emperatriz 2nd Gen 32G X 4 MM (Insulin Pen Needle)Indicatio ns:Type 2 diabetes mellitus with stage 3b chronic kidney disease, without long-term current use of insulin (HCC),DM type 2, goal A1C to be determined ([facility]) USE WITH INSULIN PEN EVERY DAY 100 Each 1 3 Active Amiodarone HCl 200 MG Oral Tablet (Cordarone)Indic ations:Paroxysma l A-fib ([facility]) Take 1 Tablet by mouth daily. 30 Tablet 5 3 Active Isosorbide Mononitrate ER 120 MG Oral Tablet Extended Release 24 Hour (Imdur) TAKE 1 TABLET BY MOUTH EVERY MORNING 90 Tablet 1 3 Active Rosuvastatin Calcium 20 MG Oral Tablet (Crestor)Indicat ions:Dyslipidemi a, goal LDL below 70 TAKE 1 TABLET DAILY 90 Tablet 3 3 Active Ranolazine ER 1000 MG Oral Tablet Extended Release 12 Hour Take 1 Tablet by mouth in the morning and 1 Tablet before bedtime. 180 Tablet 3 3 Active metFORMIN HCl ER 500 MG Oral Tablet Extended Release 24 Hour (Glucophage XR)Indications:D M type 2, goal A1C to be determined ([facility]) TAKE 2 TABLET BY MOUTH IN THE MORNING AND 1 TABLETS IN THE EVENING WITH FOOD 270 Tablet 1 3 Active Lantus SoloStar 100 UNIT/ML Subcutaneous Solution Pen-injector (Insulin Glargine Solostar)Indicat ions:DM type 2, goal A1C to be determined ([facility]),Type 2 diabetes mellitus with stage 3b chronic kidney disease, without long-term current use of insulin ([facility]) INJECT 22 UNITS SUBCUTANEOUSLY (UNDER THE SKIN) IN THE MORNING OR DIRECTED 15 mL 3 2 12/31/19 23 Discontinued metFORMIN HCl ER 500 MG Oral Tablet Extended Release 24 Hour (Glucophage XR)Indications:D M type 2, goal A1C to be determined ([facility]) TAKE 3 TABLETS BY MOUTH EVERY DAY WITH FOOD 270 Tablet 1 3 12/31/19 23 Discontinued documented as of this encounter [...] with wider margins) Staging: Stage 0 - [id number] - Melanoma in situ Type 2 diabetes [...] Aortic root 4.4 cm 4.29.2009 echo at [facility]. HTN, goal below 130/80 06/14/2009 2 Overview: Per HTN Taxonomy. Type 2 diabetes mellitus wit h hemoglobin A1c goal of less than 7.0% 03/02/2009 03/27/2011 Overview: Modified per Diabetes protocol #14. ICD-10 update of inactive term EXAMINATION OF PARTICIPANT IN CLINICAL TRIAL-gen omics 11/17/2008 09/01/2009 Overview: Renamed Per Clinical Trials Billing Project. Study Titile: Genomic Markers for Patients with Cardiovascular Disease Project #[id number] PI: Francoise Tomlin MD Please call [phone] with study related questions INTERFACED RESULT 11/17/2008 10/17/2011 GENOMICS CARDIO RESEARCH OTHER*[id number] 200806/25/2016 Overview: Renamed Per Clinical Trials Billing Project. Study Titile: Genomic Markers for Patients with Cardiovascular Disease Project #[id number] PI: Francoise Tomlin MD Please call [phone] with study related questions CLASS I-II ANGINA PECTORIS, STABLE 04/26/2002 09/15/2009 Mixed dyslipidemia 04/26/2002 05/01/2009 Overview: Per Lipid Taxonomy. BENIGN NEOPLASM LG BOWEL 01/17/2002 019 HTN, goal below 140/90 08/23/1998 01/27/201 0 Overview: Per HTN Taxonomy. DM type 2, not at goal 08/23/1998 9 Overview: Modified per Diabetes protocol #14. THREE VESSEL ATHEROSCLEROTIC CORONARY DISEASE 09/15/2009 Dyslipidemia, goal LDL below 160 07/13/2013 documented as of this encounter (statuses as of 12/30/2022) Immunizations Name Administration Dates Next Due Pneumococcal Conjugate Vacc, 13 Valent (Prevnar) 01/18/2016 Seasonal Influenza, Quadrivalent, ID 02/21/2020 Seasonal Influenza, [...] Comments:quit 30 yrs ago, wh ile in [employer] for 4 years Alcohol Use Standard Drinks/Week [...] encounter Miscellaneous Notes * Telephone Encounter - Vaughn Aranda MD - 12/30/2022 12:32 PM EDTSigned Prescriptions: Disp Refills metFORMIN HCl ER 500 MG Oral Tablet Extend*270 Ta*1 Sig: TAKE 2 TABLET BY MOUTH IN THE MORNING AND 1 TABLETS IN THE EVENING WITH FOOD Authorizing Provider: VAUGHN ARANDA * Telephone Encounter - NERIS Pierre - 12/30/2022 10:16 AM EDT Pt checking on status of this. Pt is about out. * Telephone Encounter - Maria M Bañuelos LPN - 12/30/2022 9:20 AM EDTPending Prescriptions: Disp Refills metFORMIN HCl ER 500 MG Oral Tablet Extend*270 Ta*1 Sig: TAKE 2 TABLET BY MOUTH IN THE MORNING AND 1 TABLETS IN THE EVENING WITH FOOD * Telephone Encounter - Maria M Bañuelos LPN - 12/30/2022 9:19 AM EDT Provider to address: Pending Prescriptions: Disp Refills metFORMIN HCl ER 500 MG Oral Tablet Exten*270 Ta*1 Sig: TAKE 2 TABLET BY MOUTH IN THE MORNING AND 1 TABLETS IN THE EVENING WITH FOOD Last Visit: 12/02/2022 (in office), Visit date not found (telemedicine) Next Visit: 02/12/2023 Last date the medication was ordered: 07/04/22 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 Dyslipidemia, goal LDL below 70 E78.5 S/P angioplasty with stent Z95.820 DM type 2, goal A1C to be determined ([facility]) E11.9 HTN, goal below 140/90 I10 History of colon polyps Z86.010 Stable angina ([facility]) I20.8 Hypertensive kidney disease with stage 3b chronic kidney disease I12.9, N18.32 Type 2 diabetes mellitus with stage 3b chronic kidney disease (HCC) E11.22, N18.32 Chronic kidney disease, stage 3b ([facility]) N18.32 Hx of melanoma of skin Z85.820 Type 2 diabetes mellitus with stage 3b chronic kidney disease, with long- term current use of insulin ([facility]) E11.22, N18.32, Z79.4 Enlarged aorta ([facility]) I77.89 Unstable angina ([facility]) I20.0 Paroxysmal A-fib ([facility]) I48.0 Labs: Lab Results Component Value Date/Time CREATININE - [facility] 1.3 (H) 12/02/2022 02:50 PM CREATININE - [facility] 1.9 (H) 04/18/2020 08:29 AM CREATININE, RANDOM URINE - [facility] 74 07/10/2022 09:04 AM CREATININE, RANDOM URINE - [facility] 185 10/24/2016 11:53 AM CREATININE-OUTSIDE LAB 1.29 09/27/2022 12:00 AM Lab Results Component Value Date/Time POTASSIUM - [facility] 5.1 12/02/2022 02:50 PM POTASSIUM - [facility] 5.0 04/18/2020 08:29 AM POTASSIUM POCT - [facility] 3.6 11/25/2008 12:39 PM POTASSIUM, WHOLE BLOOD - [facility] 3.5 11/25/2008 08:00 PM POTASSIUM, WHOLE BLOOD - [facility] RESULTS RECHECKED 11/25/2008 08:00 PM POTASSIUM-OUTSIDE LAB 4.4 09/27/2022 12:00 AM Lab Results Component Value Date/Time TSH - [facility] 5.38 (H) 12/23/2022 04:01 PM TSH - [facility] 2.81 01/01/2017 01:44 PM TSH - OUTSIDE LAB 3.046 09/23/2022 12:00 AM Lab Results Component Value Date/Time LDL CHOLESTEROL (CALCULATED) - [facility] 30 10/27/2019 09:03 AM LDL CHOLESTEROL (CALCULATED) - [facility] 20 11/23/2011 05:00 AM LDL CHOLESTEROL (DIRECT MEASURE) - [facility] 44 12/23/2022 04:01 PM LDL CHOLESTEROL (DIRECT MEASURE) - [facility] 52 09/15/2020 10:32 AM LDL CHOLESTEROL (DIRECT MEASURE) - [facility] NOT APPLICABLE 10/27/2019 09:03 AM LDL CHOLESTEROL (DIRECT MEASURE) - [facility] 50 10/24/2016 11:50 AM LDL CHOLESTEROL (DIRECT MEASURE) - [facility] 48 02/20/2015 03:38 PM Lab Results Component Value Date/Time ALT - [facility] 50 12/02/2022 02:50 PM ALT - [facility] 23 04/18/2020 08:29 AM Hemoglobin AIC Results: Lab Results Component Value Date/Time HEMOGLOBIN A1C - [facility] 8.1 (H) 11/25/2022 02:28 PM HEMOGLOBIN A1C - [facility] 9.4 (H) 07/10/2022 09:00 AM HEMOGLOBIN A1C - [facility] 8.0 (H) 12/04/2021 11:51 AM HEMOGLOBIN A1C - [facility] 9.7 (H) 04/18/2020 08:29 AM HEMOGLOBIN A1C - [facility] 6.4 (H) 10/27/2019 09:03 AM HEMOGLOBIN A1C - [facility] 6.5 (H) 01/12/2019 02:01 PM Reason for Call: eRx-Medication Refill Contact: Telephone Call Contact Type: Medication Total Time including non face to face (minutes): 5 documented in this encounter Plan of Treatment Upcoming Encounters Date Type Specialty Care Team Description 02/12/2023 Office Visit Family Medicine Carola Arrington MD [address] [place] [address] 03/17/2023 Office Visit Pharmacy [facility] [address] [place] [address] 08/14/2023 Office Visit Dermatology Lyssa Gar MD [address] [place] [address], [place] [address] Health Maintenance Due Date Last Done Comments [...] Additional history exists CKD HGB USE SMARTSET 01447 12/03/202312/02, 12/02/2022, 11/25/2022, Additional history exists CKD PHOS USE SMARTSET 35572 12/03/202311/16, 09/15/2020, 04/18/2020, Additional history exists Pneumococcal [...] as of this encounter Visit Diagnoses Diagnosis DM type 2, goal A1C to be [...] the patient have Health Care Power of Spool Carrier? Yes, not currently available Code Status History Code Status Date Activated Date Inactivated Comments Full Code 09/15/2009 2:06 PM 09/16/2009 8:49 PM This o rder reflects the patients wishes and were consensually agreed upon. Question Answer Comments Discussion of Advance Directives occurred with: Patient/Family Does the patient have a Living Will? No Does the patient have Health Care Power of Spool Carrier? No Full Code 11/25/2008 1:50 PM 11/29/2008 9:11 PM This order reflects the patients wishes and were consensually agreed upon. Question Answer Comments Discussion of Advance Directives occurred with: Patient Care Teams Employee Relations Manager Relationship Specialty Start Date End Date Carola Arrington MD [address] [place] [address] PCP - General Internal Medicine 12/19/20 documented as of this encounter
--- OUTSIDE RECORDS SUMMARY | 2023-02-21 02:33 | External Medical Summary | Summary of Care ---
Author Name Unknown Organization [facility] Address [address] [place] [address] Phone [phone] Care Team Providers Care Locker Room Attendant Name Role Phone Carola Arrington MD Primary Care Provider Reason for Referral * Precert (Within 10 days (routine)) - Pending Review Specialty Diagnoses / Procedures Referred By Contharjinder t Referred To Contact Radiology Diagnoses Recurrent falls Osteoarthritis of lumbar spine, unspecified spinal osteoarthritis complication status Foot drop, right Weakness of both lower extremities Procedures MRI L SPINE WO CONTRAST Kierra Fox DO [address] [place] [address] Referral ID Status Reason Start Date Expiration Date V isits Requested Visits Authorized [id number] Pending Review 12/06/2022 999 999 Reason for Visit * Reason Onset Date Comments Test Results 12/05/2022 Encounter Details Date Type Department Care Team Description 12/05/2022 Telephone Family Practice [facility] [address] [place] [address] Kierra Fox DO [address] [place] [address] Test Results (/) Allergies No known active [...] type 2, goal A1C to be determined ([facility]),Type 2 diabetes mellitus with stage 3b chronic kidney disease, without long-term current use of insulin ([facility]) INJECT 22 UNITS SUBCUTANEOUSLY (UNDER THE SKIN) IN THE MORNING OR DIRECTED 15 mL 3 04/16/20 22 Active Additional Information Patient taking differently: 25 Units Subcutaneous [id number], Reported on 09/30/2022 metFORMIN HCl ER 500 MG Oral Tablet Extended Release 24 Hour (Glucophage XR)Indications:D M type 2, goal A1C to be determined ([facility]) TAKE 3 TABLETS BY MOUTH EVERY DAY [...] type 2, goal A1C to be determined ([facility]) USE WITH INSULIN PEN EVERY DAY 100 [...] with wider margins) Staging: Stage 0 - [id number] - Melanoma in situ Type 2 diabetes [...] Aortic root 4.4 cm 4.29.2009 echo at [facility]. HTN, goal below 130/80 06/14/2009 [...] Markers for Patients with Cardiovascular Disease Project #[id number] PI: Francoise Tomlin MD Please call [phone] with study related questions INTERFACED RESULT 11/17/2008 10/17/2011 GENOMICS CARDIO RESEARCH OTHER*[id number] 200806/25/2016 Overview: Renamed Per Clinical Trials Billing Project. Study Titile: Genomic Markers for Patients with Cardiovascular Disease Project #[id number] PI: Francoise Tomlin MD Please call [phone] with study related questions CLASS I-II ANGINA [...] encounter Miscellaneous Notes * Telephone Encounter - Kierra Fox DO [...] EDT Pt cancelled his MRI appt at [facility]. He states he does not know why this was ordered. Pls call pt to advise. Thank you, MRI scheduling * Telephone Encounter - Niya Lemus - 12/06/2022 1:55 PM EDT appt scheduled with * Telephone Encounter - Kierra Fox DO - 12/06/2022 1:46 PM EDT Please schedule mri * Telephone Encounter - Marlen Riley MED ASSIST - 12/05/2022 3:07 PM EDT Patient's informed. [...] Carola Arrington MD [address] [place] [address] 03/17/2023 Office Visit Pharmacy [facility] [place] [address] [place] [address] 08/14/2023 Office Visit Dermatology Lyssa Gar MD [address] [place] [address] Scheduled Orders Name Type Priority Associated Diagnoses [...] Additional history exists CKD HGB USE SMARTSET 04970 12/03/202312/02, 12/02/2022, 11/25/2022, Additional history exists CKD PHOS USE SMARTSET 04231 12/03/202311/16, 09/15/2020, 04/18/2020, Additional history exists Pneumococcal [...] the patient have Health Care Power of Job Coach? Yes, not currently available Code Status History Code Status Date Activated Date Inactivated Comments Full Code 09/15/2009 2:06 PM 09/16/2009 8:49 PM This o rder reflects the patients wishes and were consensually agreed upon. Question Answer Comments Discussion of Advance Directives occurred with: Patient/Family Does the patient have a Living Will? No Does the patient have Health Care Power of Job Coach? No Full Code 11/25/2008 1:50 PM 11/29/2008 9:11 PM This order reflects the patients wishes and were consensually agreed upon. Question Answer Comments Discussion of Advance Directives occurred with: Patient Care Teams Locker Room Attendant Relationship Specialty Start Date End Date Carola Arrington MD [address] [place] [address] PCP - General Internal Medicine 12/19/20 documented as of this encounter
--- OUTSIDE RECORDS SUMMARY | 2023-02-21 02:33 | External Medical Summary | Summary of Care ---
Author Name Unknown Organization [facility] Address [address] [place] [address] Phone [phone] Care Team Providers Care Cross Enterprise Integrator Name Role Phone Carola Arrington MD Primary Care Provider Reason for Visit * Reason Comments eRx-Medication Refill Encounter Details Date Type Department Care Team Description 12/28/2022 Refill Pharmacy, [facility] [address] [facility] [place] [address] Nathan Cardenas DO [address] [facility] [place] [address] DM type 2, goal A1C to be determined ([facility]); Type 2 diabetes mellitus with stage 3b chronic kidney disease, without long-term current use of insulin (HCC) Allergies No known active allergiesdocumented as of [...] Patient not taking.Informant: Patient, Reported on 12/02/2022 metFORMIN HCl ER 500 MG Oral Tablet Extended Release 24 Hour (Glucophage XR)Indications:D M type 2, goal A1C to be determined ([facility]) TAKE 3 TABLETS BY MOUTH EVERY DAY WITH FOOD 270 Tablet 1 3 Active Additional Information Patient taking differently: TAKE 2 TABLET BY MOUTH IN THE MORNING AND 1 TABLETS IN THE EVENING WITH FOOD, Reported on 12/23/2022 Clopidogrel Bisulfate 75 MG Oral Tablet (pLAVix)Indicati ons:Aortocoronar y bypass status,Acute coronary syndrome ([facility]),Chronic coronary artery disease,Enlarged aorta (HCC) TAKE 1 TABLET BY MOUTH EVERY DAY 100 Tablet 1 3 Active BD Pen Needle Emperatriz 2nd Gen 32G X 4 MM (Insulin Pen Needle)Indicatio ns:Type 2 diabetes mellitus with stage 3b chronic kidney disease, without long-term current use of insulin ([facility]),DM type 2, goal A1C to be determined ([facility]) USE WITH INSULIN PEN EVERY DAY 100 Each 1 3 Active Amiodarone HCl 200 MG Oral Tablet (Cordarone)Indic ations:Paroxysma l A-fib ([facility]) Take 1 Tablet by mouth daily. [...] before bedtime. 180 Tablet 3 3 Active Insulin Glargine Solostar 100 UNIT/ML Subcutaneous Solution Pen-injector (Lantus SoloStar)Indicat ions:DM type 2, goal A1C to be determined ([facility]),Type 2 diabetes mellitus with stage 3b chronic kidney disease, without long-term current use of insulin ([facility]) Inject 25 Units under the skin every evening. 15 mL 3 3 Active Lantus SoloStar 100 UNIT/ML Subcutaneous Solution Pen-injector (Insulin Glargine Solostar)Indicat ions:DM type 2, goal A1C to be determined ([facility]),Type 2 diabetes mellitus with stage 3b chronic kidney disease, without long-term current use of insulin (HCC) INJECT 22 UNITS SUBCUTANEOUSLY (UNDER THE SKIN) IN THE MORNING OR DIRECTED 15 mL 3 2 12/31/19 23 Discontinued documented as of this [...] with wider margins) Staging: Stage 0 - [id number] - Melanoma in situ Type 2 diabetes [...] Aortic root 4.4 cm 4.29.2009 echo at [facility]. HTN, goal below 130/80 06/14/2009 2 Overview: Per HTN Taxonomy. Type 2 diabetes mellitus wit h hemoglobin A1c goal of less than 7.0% 03/02/2009 03/27/2011 Overview: Modified per Diabetes protocol #14. ICD-10 update of inactive term EXAMINATION OF PARTICIPANT IN CLINICAL TRIAL-gen omics 11/17/2008 09/01/2009 Overview: Renamed Per Clinical Trials Billing Project. Study Titile: Genomic Markers for Patients with Cardiovascular Disease Project # PI: Francoise Tomlin MD Please call [phone] with study related questions INTERFACED RESULT 11/17/2008 10/17/2011 GENOMICS CARDIO RESEARCH OTHER*[id number] 200806/25/2016 Overview: Renamed Per Clinical Trials Billing Project. Study Titile: Genomic Markers for Patients with Cardiovascular Disease Project # PI: Francoise Tomlin MD Please call [phone] with study related questions CLASS I-II ANGINA [...] Comments:quit 30 yrs ago, wh ile in [employer] for 4 years Alcohol Use Standard Drinks/Week [...] encounter Miscellaneous Notes * Telephone Encounter - Nathan Cardenas DO - 12/30/2022 11:52 AM EDTSigned Prescriptions: Disp Refills Insulin Glargine Solostar 100 UNIT/ML Subc*15 mL 3 Sig: Inject 25 Units under the skin every evening. Authorizing Provider: NATHAN CARDENAS * Telephone Encounter - Tahira Kaur LPN - 12/30/2022 11:07 AM EDTPending Prescriptions: Disp Refills Insulin Glargine Solostar 100 UNIT/ML Subc*15 mL 3 Sig: Inject 25 Units under the skin every evening. * Telephone Encounter - NERIS Pierre - 12/30/2022 10:18 AM EDT Pt checking on status, he is about out of this. * Telephone Encounter - Scarlet Centeno LPN - 12/30/2022 9:18 AM EDTPending Prescriptions: Disp Refills Insulin Glargine Solostar 100 UNIT/ML Subc*15 mL 3 Sig: Inject 25 Units under the skin every evening. * Telephone Encounter - Scarlet Centeno LPN - 12/30/2022 9:16 AM EDT Did you pend patient's preferred pharmacy and medication before forwarding?yes Pharmacy: [id number] [facility] [place] Pending Prescriptions: Disp Refills Insulin Glargine Solostar 100 UNIT/ML Sub*15 mL 3 Sig: Inject 25 Units under the skin every evening. Last Visit: 12/23/2022 (in office), 07/11/2022 (telemedicine) Next Visit: 03/17/2023 If no future appointments scheduled, and last appointment is greater than a year ago, please schedule patient for a follow-up appointment Last date the medication was ordered: 04/16/22 Is this request for a controlled substance?No Urine Drug Screen:No results found for this or any previous visit. Patient Phone Numbers Labs: Lab Results Component Value Date/Time CREAT 1.3 (H) 12/02/2022 02:50 PM CREAT 1.29 09/27/2022 12:00 AM CREAT 1.9 (H) 04/18/2020 08:29 AM POTASSIUM 5.1 12/02/2022 02:50 PM POTASSIUM 4.4 09/27/2022 12:00 AM POTASSIUM 5.0 04/18/2020 08:29 AM TSH 5.38 (H) 12/23/2022 04:01 PM TSH 3.046 09/23/2022 12:00 AM TSH 2.81 01/01/2017 01:44 PM LDLCALC 30 10/27/2019 09:03 AM LDLDIRECT 44 12/23/2022 04:01 PM LDLDIRECT NOT APPLICABLE 10/27/2019 09:03 AM LDLDIRECT 50 10/24/2016 11:50 AM ALT 50 12/02/2022 02:50 PM ALT 23 04/18/2020 08:29 AM HGBA1C 8.1 (H) 11/25/2022 02:28 PM HGBA1C 9.7 (H) 04/18/2020 08:29 AM documented in this encounter Plan of Treatment Upcoming Encounters Date Type Specialty Care Team Description 02/12/2023 Office Visit Family Medicine Carola Arrington MD [address] [place] [address] 03/17/2023 Office Visit Pharmacy [facility] [address] [place] [address] 08/14/2023 Office Visit Dermatology Lyssa Gar MD [address] [facility], [place] [address] Health Maintenance Due Date Last Done Comments [...] Additional history exists CKD HGB USE SMARTSET 46292 12/03/202312/02, 12/02/2022, 11/25/2022, Additional history exists CKD PHOS USE SMARTSET 04351 12/03/202311/16, 09/15/2020, 04/18/2020, Additional history exists Pneumococcal [...] mention of complication, not stated as uncontrolled Type 2 diabetes mellitus with stage 3b chronic kidney disease, without long-term current use of insulin (HCC) documented in this encounter Advance Directives Latest [...] the patient have Health Care Power of Manager Generation? Yes, not currently available Code Status History Code Status Date Activated Date Inactivated Comments Full Code 09/15/2009 2:06 PM 09/16/2009 8:49 PM This o rder reflects the patients wishes and were consensually agreed upon. Question Answer Comments Discussion of Advance Directives occurred with: Patient/Family Does the patient have a Living Will? No Does the patient have Health Care Power of Manager Generation? No Full Code 11/25/2008 1:50 PM 11/29/2008 9:11 PM This order reflects the patients wishes and were consensually agreed upon. Question Answer Comments Discussion of Advance Directives occurred with: Patient Care Teams Cross Enterprise Integrator Relationship Specialty Start Date End Date Carola Arrington MD [address] [place] [address] PCP - General Internal Medicine 12/19/20 documented as of this encounter
--- OUTSIDE RECORDS SUMMARY | 2023-02-21 02:33 | External Medical Summary | Summary of Care ---
Author Name Unknown Organization [facility] Address [address] [place] [address] Phone [phone] Care Team Providers Care International Relations Professor Name Role Phone Carola Arrington MD Primary Care Provider Reason for Referral * Precert (Within 10 days (routine)) - Pending Review Specialty Diagnoses / Procedures Referred By Contharjinder t Referred To Contact Radiology Diagnoses Recurrent falls Osteoarthritis of lumbar spine, unspecified spinal osteoarthritis complication status Foot drop, right Weakness of both lower extremities Procedures MRI L SPINE WO CONTRAST Kierra Fox DO [address] [employer] [place] [address] Referral ID Status Reason Start Date Expiration Date V isits Requested Visits Authorized [id number] Pending Review 12/06/2022 999 999 Reason for Visit * Reason Onset Date Comments Test Results 12/05/2022 Encounter Details Date Type Department Care Team Description 12/05/2022 Telephone Family Practice [facility] [address] [place] [address] Kierra Fox DO [address] [place] [address] Test Results (/) Allergies No known active [...] Information Patient taking differently: 25 Units Subcutaneous [id number], Reported on 09/30/2022 metFORMIN HCl ER 500 [...] with wider margins) Staging: Stage 0 - [id number] - Melanoma in situ Type 2 diabetes [...] Aortic root 4.4 cm 4.29.2009 echo at [facility]. HTN, goal below 130/80 06/14/2009 [...] Markers for Patients with Cardiovascular Disease Project #[id number] PI: Francoise Tomlin MD Please call [phone] with study related questions INTERFACED RESULT 11/17/2008 10/17/2011 GENOMICS CARDIO RESEARCH OTHER*[id number] 200806/25/2016 Overview: Renamed Per Clinical Trials Billing Project. Study Titile: Genomic Markers for Patients with Cardiovascular Disease Project #[id number] PI: Francoise Tomlin MD Please call [phone] with study related questions CLASS I-II ANGINA [...] EDT Pt cancelled his MRI appt at [facility]. He states he does not [...] Carola Arrington MD [address] [place] [address] 03/17/2023 Office Visit Pharmacy [facility] [address] [place] [address] 08/14/2023 Office Visit Dermatology Lyssa Gar MD [address] [place] [address] Scheduled Orders Name Type Priority Associated Diagnoses [...] Additional history exists CKD HGB USE SMARTSET 88057 12/03/202312/02, 12/02/2022, 11/25/2022, Additional history exists CKD PHOS USE SMARTSET 49593 12/03/202311/16, 09/15/2020, 04/18/2020, Additional history exists Pneumococcal [...] the patient have Health Care Power of Shipbuilding Draftsperson? Yes, not currently available Code Status History Code Status Date Activated Date Inactivated Comments Full Code 09/15/2009 2:06 PM 09/16/2009 8:49 PM This o rder reflects the patients wishes and were consensually agreed upon. Question Answer Comments Discussion of Advance Directives occurred with: Patient/Family Does the patient have a Living Will? No Does the patient have Health Care Power of Shipbuilding Draftsperson? No Full Code 11/25/2008 1:50 PM 11/29/2008 9:11 PM This order reflects the patients wishes and were consensually agreed upon. Question Answer Comments Discussion of Advance Directives occurred with: Patient Care Teams International Relations Professor Relationship Specialty Start Date End Date Carola Arrington MD [address] [place] [address] PCP - General Internal Medicine 12/19/20 documented as of this encounter
--- OUTSIDE RECORDS SUMMARY | 2023-02-21 02:33 | External Medical Summary | Summary of Care ---
Author Name Unknown Organization [facility] Address [address] [place] [address] Phone [phone] Care Team Providers Care Bundle Person Name Role Phone Carola Arrington MD Primary Care Provider Reason for Referral * Precert (Within 10 days (routine)) - Pending Review Specialty Diagnoses / Procedures Referred By Contharjinder t Referred To Contact Radiology Diagnoses Recurrent falls Osteoarthritis of lumbar spine, unspecified spinal osteoarthritis complication status Foot drop, right Weakness of both lower extremities Procedures MRI L SPINE WO CONTRAST Kierra Fox DO [address] [place] [address] Referral ID Status Reason Start Date Expiration Date V isits Requested Visits Authorized [id number] Pending Review 12/06/2022 999 999 Reason for Visit * Reason Onset Date Comments Test Results 12/05/2022 Encounter Details Date Type Department Care Team Description 12/05/2022 Telephone Family Practice [facility] [address] [place] [address] Kierra Fox DO [address] [place] [address] Test Results (/) Allergies No known active [...] type 2, goal A1C to be determined ([facility]),Type 2 diabetes mellitus with stage 3b chronic kidney disease, without long-term current use of insulin ([facility]) INJECT 22 UNITS SUBCUTANEOUSLY (UNDER THE SKIN) IN THE MORNING OR DIRECTED 15 mL 3 04/16/20 22 Active Additional Information Patient taking differently: 25 Units Subcutaneous [id number], Reported on 09/30/2022 metFORMIN HCl ER 500 MG Oral Tablet Extended Release 24 Hour (Glucophage XR)Indications:D M type 2, goal A1C to be determined ([facility]) TAKE 3 TABLETS BY MOUTH [...] type 2, goal A1C to be determined ([facility]) USE WITH INSULIN PEN EVERY [...] with wider margins) Staging: Stage 0 - [id number] - Melanoma in situ Type 2 diabetes [...] Aortic root 4.4 cm 4.29.2009 echo at [facility]. HTN, goal below 130/80 06/14/2009 2 Overview: Per HTN Taxonomy. Type 2 diabetes mellitus wit h hemoglobin A1c goal of less than 7.0% 03/02/2009 03/27/2011 Overview: Modified per Diabetes protocol #14. ICD-10 update of inactive term EXAMINATION OF PARTICIPANT IN CLINICAL TRIAL-gen omics 11/17/2008 09/01/2009 Overview: Renamed Per Clinical Trials Billing Project. Study Titile: Genomic Markers for Patients with Cardiovascular Disease Project #[id number] PI: Francoise Tomlin MD Please call [phone] with study related questions INTERFACED RESULT 11/17/2008 10/17/2011 GENOMICS CARDIO RESEARCH OTHER*[id number] 200806/25/2016 Overview: Renamed Per Clinical Trials Billing Project. Study Titile: Genomic Markers for Patients with Cardiovascular Disease Project #[id number] PI: Francoise Tomlin MD Please call [phone] with study related questions CLASS I-II ANGINA [...] Pt cancelled his MRI appt at [facility]. He states he does not know why this was ordered. Pls call pt to advise. Thank you, MRI scheduling * Telephone Encounter - Niya Lemus - 12/06/2022 1:55 PM EDT appt scheduled with * Telephone Encounter - Kierra Fox DO - 12/06/2022 1:46 PM EDT Please schedule mri * Telephone Encounter - REGGIE Recinos ASSIST - 12/05/2022 3:07 PM EDT Patient's [...] Carola Arrington MD [address] [place] [address] 03/17/2023 Office Visit Pharmacy [facility] [address] [place] [address] 08/14/2023 Office Visit Dermatology Lyssa Gar MD [address] [place] [address] [address] Scheduled Orders Name Type Priority Associated Diagnoses [...] Additional history exists CKD HGB USE SMARTSET 01117 12/03/202312/02, 12/02/2022, 11/25/2022, Additional history exists CKD PHOS USE SMARTSET 95408 12/03/202311/16, 09/15/2020, 04/18/2020, Additional history exists Pneumococcal [...] the patient have Health Care Power of Wharf Operator? Yes, not currently available Code Status History Code Status Date Activated Date Inactivated Comments Full Code 09/15/2009 2:06 PM 09/16/2009 8:49 PM This o rder reflects the patients wishes and were consensually agreed upon. Question Answer Comments Discussion of Advance Directives occurred with: Patient/Family Does the patient have a Living Will? No Does the patient have Health Care Power of Wharf Operator? No Full Code 11/25/2008 1:50 PM 11/29/2008 9:11 PM This order reflects the patients wishes and were consensually agreed upon. Question Answer Comments Discussion of Advance Directives occurred with: Patient Care Teams Bundle Person Relationship Specialty Start Date End Date Carola Arrington MD [address] [place] [address] PCP - General Internal Medicine 12/19/20 documented as of this encounter
--- OUTSIDE RECORDS SUMMARY | 2023-02-21 02:34 | External Medical Summary ---
Author Name Unknown Address Unknown Organization K0G[facility] [address] [place] [address] Laboratory Report Ordering Provider Test Date Status RONALD EVANS 12/02/2022 14:50:19 Final Observation Date Value Abnormality Reference (Units ) Status SYNC LEUKOCYTES IN BLOOD BY AUTOMATED COUNT 12/02/2022 14:50:19 6.71 4.00-10.80 (K/uL) Final Segs 12/02/2022 14:50:19 62.1 40.0-75.0 (%) Final Lymphs % 12/02/2022 14:50:19 26.8 18.0-42.0 (%) Final Monos 12/02/2022 14:50:19 9.7 1.0-11.0 (%) Final Eosinophils 12/02/2022 14:50:19 1.3 0.0-6.0 (%) Final Basos 12/02/2022 14:50:19 0.1 0.0-2.0 (%) Final Absolute Segs 12/02/2022 14:50:19 4.16 1.80-7.70 (K/uL) Final Lymphs, absolute 12/02/2022 14:50:19 1.80 1.00-4.80 (K/ul) Final Monos, Abs 12/02/2022 14:50:19 0.65 0.00-1.10 (K/uL) Final Eos, Abs 12/02/2022 14:50:19 0.09 0.00-0.70 (K/uL) Final Basos, Abs 12/02/2022 14:50:19 0.01 0.00-0.20 (K/uL) Final Performing Location [facility] [address] [place] [address]
--- OUTSIDE RECORDS SUMMARY | 2023-02-21 02:34 | External Medical Summary | Summary of Care ---
Author Name Unknown Organization [facility] Address [address] [place] [address] Phone [phone] Care Team Providers Care Electronics Engineering Manager Name Role Phone Carola Arrington MD Primary Care Provider Reason for Visit * Reason Comments Outpatient Testing Encounter Details Date Type Department Care Team Description 12/02/2022 Laboratory Laboratory, [facility] [address] [place] [address] [facility] [address] [place] [address] [employer]cosan Other*[id number]; Complicated UTI (urinary tract infection); Generalized weakness; Hospital discharge follow-up; Recurrent falls Allergies No known active allergiesdocumented as of this encounter (statuses as of 12/02/2022) Medications Medication Sig Dispensed Refills Start Date End Date Status aspirin 81 MG chewable tablet Take 1 Tablet by mouth in the morning. 34 Tab 11 10/28/2017 Active nitroglycerin (NITROSTAT) 0.4 MG SUBLIndications:Ch ronic coronary artery disease DISSOLVE 1 TABLET UNDER THE TONGUE EVERY 5 MINUTES FOR CHEST PAIN. UP TO 3 DOSES IN 15 MINUTES. 25 Tab 1 11/17/2018 Active Additional Information Patient not taking.Informant: Patient, Reported on 12/02/2022 Lantus SoloStar 100 UNIT/ML Subcutaneous Solution Pen-injector (Insulin Glargine Solostar)Indicatio ns:DM type 2, goal A1C to be determined ([facility]),Type 2 diabetes mellitus with stage 3b chronic kidney disease, without long-term current use of insulin (HCC) INJECT 22 UNITS SUBCUTANEOUSLY (UNDER THE SKIN) IN THE MORNING OR DIRECTED 15 mL 3 04/16/2022 Active Additional Information Patient taking differently: 25 Units Subcutaneous [id number], Reported on 09/30/2022 Isosorbide Mononitrate ER 120 MG Oral Tablet Extended Release 24 Hour (Imdur) TAKE 1 TABLET BY MOUTH EVERY MORNING 90 Tablet 1 06/14/2022 Active Additional Information Patient not taking.Reported on 12/02/2022 metFORMIN HCl ER 500 MG Oral Tablet Extended Release 24 Hour (Glucophage XR)Indications:DM type 2, goal A1C to be determined ([facility]) TAKE 3 TABLETS BY MOUTH EVERY DAY WITH FOOD 270 Tablet 1 07/04/2022 Active Additional Information Patient taking differently: TAKE 1 TABLET BY MOUTH IN THE MORNING AND 2 TABLETS IN THE EVENING WITH FOOD, Reported on 09/30/2022 Clopidogrel Bisulfate 75 MG Oral Tablet (pLAVix)Indication s:Aortocoronary bypass status,Acute coronary syndrome (HCC),Chronic coronary artery disease,Enlarged aorta ([facility]) TAKE 1 TABLET BY MOUTH EVERY DAY 100 Tablet 1 07/24/2022 Active Additional Information Patient not taking.Reported on 12/02/2022 BD Pen Needle Emperatriz 2nd Gen 32G X 4 MM (Insulin Pen Needle)Indications :Type 2 diabetes mellitus with stage 3b chronic kidney disease, without long-term current use of insulin (HCC),DM type 2, goal A1C to be determined ([facility]) USE WITH INSULIN PEN EVERY DAY 100 Each 1 07/24/2022 Active Ranolazine ER 1000 MG Oral Tablet Extended Release 12 HourIndications:Ch est pain,Unstable angina (HCC) TAKE 1 TABLET TWICE A DAY 180 Tablet 3 08/27/2022 Active Additional Information Patient not taking.Reported on 12/02/2022 Amiodarone HCl 200 MG Oral Tablet (Cordarone) TAPER DIRECTED TAKE 1 TABLET BY MOUTH TWO TIMES DAILY FOR 7 DAYS THEN TAKE TAKE 1 TABLET BY MOUTH EVERY DAY 0 09/27/2022 Active Rosuvastatin Calcium 20 MG Oral Tablet (Crestor)Indicatio ns:Dyslipidemia, goal LDL below 70,Dyslipidemia, goal LDL below 160,Mixed dyslipidemia TAKE 1 TABLET IN THE MORNING 90 Tablet 2 11/12/2022 Active Additional Information Patient not taking.Reported on 12/02/2022 Cefdinir 300 MG Oral Capsule (Omnicef) Take 1 Capsule by mouth in the morning and 1 Capsule before bedtime. 0 11/30/2022 Active documented as of this encounter (statuses as of 12/02/2022) Active Problems Problem Noted Date Unstable angina 10/25/2022 Type 2 diabetes mellitus wit h stage 3b chronic kidney disease, with long-term current use of insulin 08/09/2022 Enlarged aorta 08/09/2022 Hx of melanoma of skin 07/19/2021 Overview: Location: L upper back Year: 2016 Depth: MIS Treatment: WLE (positive margins on initial excision, then re-excised again with wider margins) Staging: Stage 0 - [id number] - Melanoma in situ Type 2 diabetes [...] as of this encounter (statuses as of 12/02/2022) Resolved Problems Problem Noted Date Resolved Date [...] Aortic root 4.4 cm 4.29.2009 echo at [facility]. HTN, goal below 130/80 06/14/2009 2 Overview: Per HTN Taxonomy. Type 2 diabetes mellitus wit h hemoglobin A1c goal of less than 7.0% 03/02/2009 03/27/2011 Overview: Modified per Diabetes protocol #14. ICD-10 update of inactive term EXAMINATION OF PARTICIPANT IN CLINICAL TRIAL-gen omics 11/17/2008 09/01/2009 Overview: Renamed Per Clinical Trials Billing Project. Study Titile: Genomic Markers for Patients with Cardiovascular Disease Project #[id number] PI: Francoise Tomlin MD Please call [phone] with study related questions INTERFACED RESULT 11/17/2008 10/17/2011 GENOMICS CARDIO RESEARCH OTHER*[id number] 200806/25/2016 Overview: Renamed Per Clinical Trials Billing Project. Study Titile: Genomic Markers for Patients with Cardiovascular Disease Project #[id number] PI: Francoise Tomlin MD Please call [phone] with study related questions CLASS I-II ANGINA [...] as of this encounter (statuses as of 12/02/2022) Immunizations Name Administration Dates Next Due Pneumococcal [...] Comments:quit 30 yrs ago, wh ile in [employer] for 4 years Alcohol Use Standard Drinks/Week [...] Encounters Date Type Specialty Care Team Description 12/23/2022 Office Visit Pharmacy [facility] [address] [place] [address] 02/12/2023 Office Visit Family Medicine Carola Arrington MD [address] [place] [address] 08/14/2023 [facility] [address] [facility] [address] Pending Results Name Type Priority Associated Diagnoses Date /Time MYCODE SUBSEQUENT ADULT Lab Routine MyCode Research Other*[id number] 12/02/2022 2:50 PM EDT COMPREHENSIVE METABOLIC PANEL Lab Routine Complicated UTI (urinary tract infection) Generalized weakness Hospital discharge follow-up 12/02/2022 2:50 PM EDT MAGNESIUM Lab Routine Complicated UTI (urinary tract infection) Generalized weakness Hospital discharge follow-up 12/02/2022 2:50 PM EDT PHOSPHORUS Lab Routine Complicated UTI (urinary tract infection) Generalized weakness Hospital discharge follow-up 12/02/2022 2:50 PM EDT CK Lab Routine Generalized weakness Recurrent falls 12/02/2022 2:50 PM EDT MYCODE SST1 Lab Routine MyCode Research Other*[id number] 12/02/2022 2:50 PM EDT MYCODE SST2 Lab Routine MyCode Research Other*[id number] 12/02/2022 2:50 PM EDT Health Maintenance Due Date Last Done Comments DXA Scan 1936 Zoster Vaccines (1 of 2) 1986 COVID-19 Vaccine (3 - Pfizer series) 09/20/2020 07/26/2020, 07/05/2020 COLONOSCOPY-EVERY 5 YRS AGES 18-100 03/20/2021 03/20/2016, 04/30/2010, 02/05/2002 CKD PHOS USE SMARTSET 68632 09/15/2021 04/3 , 04/18/2020, 04/27/2019, Additional history exists Depression Screening, Annual for Pts 12 and [...] Additional history exists CKD HGB USE SMARTSET 63159 11/26/202312/02, 12/02/2022, 11/25/2022, Additional history exists Pneumococcal Vaccine: 65+ Years [...] Not on filedocumented as of this encounter Procedures Procedure Name Priority Date/Time Associated Diagnosis Comments DIFFERENTIAL, AUTOMATED Routine 12/02/2022 2:50 PM EDT Complicated UTI (urinary tract infection) Generalized weakness Hospital discharge follow-up CBC WITH WBC DIFFERENTIAL Routine 12/02/2022 2:50 PM EDT Complicated UTI (urinary tract infection) Generalized weakness Hospital discharge follow-up CBC Routine 12/02/2022 2:50 PM EDT Complicated UTI (urinary tract infection) Generalized weakness Hospital discharge follow-up documented in this encounter Results * DIFFERENTIAL, AUTOMATED (12/02/2022 2:50 PM EDT) WBC 6.71 4.00 - 10.80 K/uL 12/02/2022 3:03 PM EDT [facility] Neutrophils % 62.1 40.0 - 75.0 % 12/02/2022 3:03 PM EDT [facility] Lymphocytes % 26.8 18.0 - 42.0 % 12/02/2022 3:03 PM EDT [facility] Monocytes % 9.7 1.0 - 11.0 % 12/02/2022 3:03 PM EDT [facility] Eosinophils % 1.3 0.0 - 6.0 % 12/02/2022 3:03 PM EDT [facility] Basophils % 0.1 0.0 - 2.0 % 12/02/2022 3:03 PM EDT [facility] Absolute Neutrophils 4.16 1.80 - 7.70 K/uL 12/02/2022 3:03 PM EDT [facility] Absolute Lymphocytes 1.80 1.00 - 4.80 K/ul 12/02/2022 3:03 PM EDT [facility] Absolute Monocytes 0.65 0.00 - 1.10 K/uL 12/02/2022 3:03 PM EDT [facility] Absolute Eosinophils 0.09 0.00 - 0.70 K/uL 12/02/2022 3:03 PM EDT [facility] Absolute Basophils 0.01 0.00 - 0.20 K/uL 12/02/2022 3:03 PM EDT [facility] Blood Venous blood specimen / Unknown Venipuncture / Unknown 12/02/2022 2:50 PM EDT 12/02/2022 2:50 PM EDT Kierra Fox DO LAB BLOOD ORDERABLE S [facility] [address] [place] [address] * (ABNORMAL) CBC (12/02/2022 2:50 PM EDT) WBC 6.71 4.00 - 10.80 K/uL 12/02/2022 3:03 PM EDT [facility] RBC 3.77 4.50 - 5.25 M/uL 12/02/2022 3:03 PM EDT [facility] HGB 11.9(L) 14.0 - 16.8 g/dL 12/02/2022 3:03 PM EDT [facility] HCT 35.7(L) 40.0 - 48.4 % 12/02/2022 3:03 PM EDT [facility] MCV 94.7 82.0 - 99.5 fL 12/02/2022 3:03 PM EDT [facility] MCH 31.6 27.0 - 34.0 pg 12/02/2022 3:03 PM EDT [facility] MCHC 33.3 32.0 - 36.0 g/dL 12/02/2022 3:03 PM EDT [facility] RDW 13.5 11.5 - 15.5 % 12/02/2022 3:03 PM EDT [facility] PLT 213 140 - 400 K/uL 12/02/2022 3:03 PM EDT [facility] MPV 8.7 6.6 - 11.1 fL 12/02/2022 3:03 PM EDT [facility] Blood Venous blood specimen / Unknown Venipuncture / Unknown 12/02/2022 2:50 PM EDT 12/02/2022 2:50 PM EDT Kierra Fox DO LAB BLOOD ORDERABLE S [facility] [address] [place] [address] documented in this encounter Visit Diagnoses Diagnosis MyCode Research Other*[id number] Complicated UTI (urinary tract infection) Urinary tract infection, site not specified Generalized weakness Other malaise and fatigue Hospital discharge follow-up Other follow-up examination Recurrent falls Personal history of fall documented in this encounter Advance Directives Latest [...] the patient have Health Care Power of It Security Project Manager? Yes, not currently available Code Status History Code Status Date Activated Date Inactivated Comments Full Code 09/15/2009 2:06 PM 09/16/2009 8:49 PM This o rder reflects the patients wishes and were consensually agreed upon. Question Answer Comments Discussion of Advance Directives occurred with: Patient/Family Does the patient have a Living Will? No Does the patient have Health Care Power of It Security Project Manager? No Full Code 11/25/2008 1:50 PM 11/29/2008 9:11 PM This order reflects the patients wishes and were consensually agreed upon. Question Answer Comments Discussion of Advance Directives occurred with: Patient Care Teams Electronics Engineering Manager Relationship Specialty Start Date End Date Carola Arrington MD [address] [place] [address] PCP - General Internal Medicine 12/19/20 documented as of this encounter
--- OUTSIDE RECORDS SUMMARY | 2023-02-21 02:34 | External Medical Summary ---
Author Name Unknown Address Unknown Organization [facility] [address] [place] [address] Laboratory Report Ordering Provider Test Date Status RONALD EVANS 12/02/2022 14:50:19 Final Observation Date Value Abnormality Reference (Units ) Status Magnesium 12/02/2022 14:50:19 2.1 1.5-2.6 (m g/dL) Final Performing Location [facility] - [address] [place] [address]
--- OUTSIDE RECORDS SUMMARY | 2023-02-21 02:34 | External Medical Summary ---
Author Name Unknown Address Unknown Organization [facility] [address] [place] [address] Laboratory Report Ordering Provider Test Date Status NATE WILLARD 12/23/2022 16:01:12 Final Observation Date Value Abnormality Reference (Units ) Status T4, Free 12/23/2022 16:01:12 1.0 0.9-1.7 (n g/dL) Final Performing Location [facility] [address] [place] [address]
--- OUTSIDE RECORDS SUMMARY | 2023-02-21 02:34 | External Medical Summary | Summary of Care ---
Author Name Unknown Organization [facility] Address [address] [place] [address] Phone [phone] Care Team Providers Care Firebreak Cutter Name Role Phone Carola Arrington MD Primary Care Provider Reason for Visit * Reason Onset Date Comments Test Results 12/03/2022 Encounter Details Date Type Department Care Team Description 12/03/2022 Telephone Family Practice [facility] [address] [place] [address] Kierra Fox DO [address] [place] [address] Test Results (/) Allergies No known active allergiesdocumented as of this encounter (statuses as of 12/05/2022) Medications Medication Sig Dispensed Refills Start Date [...] long-term current use of insulin ([facility]) INJECT 22 UNITS SUBCUTANEOUSLY (UNDER THE SKIN) IN THE MORNING OR DIRECTED 15 mL 3 04/16/2022 Active Additional Information Patient taking differently: 25 Units Subcutaneous [id number], Reported on 09/30/2022 Isosorbide Mononitrate ER 120 MG Oral Tablet Extended Release 24 Hour (Imdur) TAKE 1 TABLET BY MOUTH EVERY MORNING 90 Tablet 1 06/14/2022 Active Additional Information Patient not taking.Reported on 12/02/2022 metFORMIN HCl ER 500 MG Oral Tablet Extended Release 24 Hour (Glucophage XR)Indications:DM type 2, goal A1C to be determined ([facility]) TAKE 3 TABLETS BY MOUTH EVERY DAY WITH FOOD 270 Tablet 1 07/04/2022 Active Additional Information Patient taking differently: TAKE 1 TABLET BY MOUTH IN THE MORNING AND 2 TABLETS IN THE EVENING WITH FOOD, Reported on 09/30/2022 Clopidogrel Bisulfate 75 MG Oral Tablet (pLAVix)Indication s:Aortocoronary bypass status,Acute coronary syndrome ([facility]),Chronic coronary artery disease,Enlarged aorta ([facility]) TAKE 1 TABLET BY MOUTH EVERY DAY 100 Tablet 1 07/24/2022 Active Additional Information Patient not taking.Reported on 12/02/2022 BD Pen Needle Emperatriz 2nd Gen 32G X 4 MM (Insulin Pen Needle)Indications :Type 2 diabetes mellitus with stage 3b chronic kidney disease, without long-term current use of insulin ([facility]),DM type 2, goal A1C to be determined ([facility]) USE WITH INSULIN PEN EVERY DAY 100 Each 1 07/24/2022 Active Ranolazine ER 1000 MG Oral Tablet Extended Release 12 HourIndications:Ch est pain,Unstable angina ([facility]) TAKE 1 TABLET TWICE A DAY 180 [...] as of this encounter (statuses as of 12/05/2022) Active Problems Problem Noted Date Unstable angina 10/25/2022 Type 2 diabetes mellitus wit h stage 3b chronic kidney disease, with long-term current use of insulin 08/09/2022 Enlarged aorta 08/09/2022 Hx of melanoma of skin 07/19/2021 Overview: Location: L upper back Year: 2016 Depth: MIS Treatment: WLE (positive margins on initial excision, then re-excised again with wider margins) Staging: Stage 0 - [id number] - Melanoma in situ Type 2 diabetes [...] as of this encounter (statuses as of 12/05/2022) Resolved Problems Problem Noted Date Resolved Date [...] Aortic root 4.4 cm 4.29.2009 echo at [facility]. HTN, goal below 130/80 06/14/2009 [...] Markers for Patients with Cardiovascular Disease Project #[id number] PI: Francoise Tomlin MD Please call [phone] with study related questions INTERFACED RESULT 11/17/2008 10/17/2011 GENOMICS CARDIO RESEARCH OTHER*[id number] 200806/25/2016 Overview: Renamed Per Clinical Trials Billing Project. Study Titile: Genomic Markers for Patients with Cardiovascular Disease Project # PI: Francoise Tomlin MD Please call [phone] with study related questions CLASS I-II ANGINA [...] as of this encounter (statuses as of 12/05/2022) Immunizations Name Administration Dates Next Due Pneumococcal [...] Comments:quit 30 yrs ago, wh ile in [employer] for 4 years Alcohol Use Standard Drinks/Week [...] Encounter - Kierra Fox DO - 12/05/2022 10:31 AM EDT noted * Telephone Encounter - Tahira Kaur LPN - 12/03/2022 3:14 PM EDT Called and spoke with pt's of message below and they are aware to do labs in a month. They areexpecting a call back from PT today or tomorrow. If any issues they will call. * Telephone Encounter - Kierra Fox DO - 12/03/2022 11:04 AM EDT Labs stable Please continue with plan to start vitron C iron supplement and repeat lab in approx 1 month Please ask if able to set up appt with PT (Josh) Thank you documented in this encounter Plan of Treatment Upcoming Encounters Date Type Specialty Care Team Description 12/23/2022 Office Visit Pharmacy [facility] Stephanie [address] [place] [address] 12/23/2022 Office Visit Cardiology Cesar Elias PA-C [address] [place] [address] 02/12/2023 Office Visit Family Medicine Carola Arrington MD [address] [place] [address] 08/14/2023 Office Visit Dermatology Lyssa Gar MD [address] [place] [address], [place] [address] Health Maintenance Due Date Last Done Comments [...] Additional history exists CKD HGB USE SMARTSET 29942 12/03/202312/02, 12/02/2022, 11/25/2022, Additional history exists CKD PHOS USE SMARTSET 63010 12/03/202311/16, 09/15/2020, 04/18/2020, Additional history exists Pneumococcal [...] Not on filedocumented as of this encounter Advance Directives Latest Code Status [...] the patient have Health Care Power of Vice President Supply Chain? Yes, not currently available Code Status History Code Status Date Activated Date Inactivated Comments Full Code 09/15/2009 2:06 PM 09/16/2009 8:49 PM This o rder reflects the patients wishes and were consensually agreed upon. Question Answer Comments Discussion of Advance Directives occurred with: Patient/Family Does the patient have a Living Will? No Does the patient have Health Care Power of Vice President Supply Chain? No Full Code 11/25/2008 1:50 PM 11/29/2008 9:11 PM This order reflects the patients wishes and were consensually agreed upon. Question Answer Comments Discussion of Advance Directives occurred with: Patient Care Teams Firebreak Cutter Relationship Specialty Start Date End Date Carola Arrington MD [address] [place] [address] PCP - General Internal Medicine 12/19/20 documented as of this encounter
--- OUTSIDE RECORDS SUMMARY | 2023-02-21 02:34 | External Medical Summary | Summary of Care ---
Author Name Unknown Organization [facility] Address [address] [place] [address] Phone [phone] Care Team Providers Care Story Editor Name Role Phone Carola Arrington MD Primary Care Provider Reason for Visit * Reason Comments Dosage Adjustment In Person (Anticoag Cl inic) Diabetes Follow-Up Encounter Details Date Type Department Care Team Description 12/23/2022 Office Visit Pharmacy, [facility] [address] [place] [address] [facility] [address] [place] [address] Type 2 diabetes mellitus with stage 3b chronic kidney disease, unspecified whether assisted insulin use (HCC)* Allergies No known active allergiesdocumented as of this encounter (statuses as of 12/23/2022) Medications Medication Sig Dispensed Refills Start Date [...] type 2, goal A1C to be determined ([facility]),Type 2 diabetes mellitus with stage 3b chronic kidney disease, without long-term current use of insulin ([facility]) INJECT 22 UNITS SUBCUTANEOUSLY (UNDER THE SKIN) IN THE MORNING OR DIRECTED 15 mL 3 04/16/2022 Active Additional Information Patient taking differently: 25 Units Subcutaneous [id number], Reported on 09/30/2022 metFORMIN HCl ER 500 MG Oral Tablet Extended Release 24 Hour (Glucophage XR)Indications:DM type 2, goal A1C to be determined ([facility]) TAKE 3 TABLETS BY MOUTH EVERY DAY WITH FOOD 270 Tablet 1 07/04/2022 Active Additional Information Patient taking differently: TAKE 1 TABLET BY MOUTH IN THE MORNING AND 2 TABLETS IN THE EVENING WITH FOOD, Reported on 09/30/2022 Clopidogrel Bisulfate 75 MG Oral Tablet (pLAVix)Indication s:Aortocoronary bypass status,Acute coronary syndrome ([facility]),Chronic coronary artery disease,Enlarged aorta ([facility]) TAKE 1 TABLET BY MOUTH EVERY DAY 100 Tablet 1 07/24/2022 Active Additional Information Patient not taking.Reported on 12/02/2022 BD Pen Needle Emperatriz 2nd Gen 32G X 4 MM (Insulin Pen Needle)Indications :Type 2 diabetes mellitus with stage 3b chronic kidney disease, without long-term current use of insulin ([facility]),DM type 2, goal A1C to be determined ([facility]) USE WITH INSULIN PEN EVERY DAY 100 Each 1 07/24/2022 Active Ranolazine ER 1000 MG Oral Tablet Extended Release 12 HourIndications:Ch est pain,Unstable angina ([facility]) TAKE 1 TABLET TWICE A DAY 180 Tablet 3 08/27/2022 Active Additional Information Patient not taking.Reported on 12/02/2022 Rosuvastatin Calcium 20 MG Oral Tablet (Crestor)Indicatio ns:Dyslipidemia, goal LDL below 70,Dyslipidemia, goal LDL below 160,Mixed dyslipidemia TAKE 1 TABLET IN THE MORNING 90 Tablet 2 11/12/2022 Active Additional Information Patient not taking.Reported on 12/02/2022 Cefdinir 300 MG Oral Capsule (Omnicef) Take 1 Capsule by mouth in the morning and 1 Capsule before bedtime. 0 11/30/2022 Active Amiodarone HCl 200 MG Oral Tablet (Cordarone)Indicat ions:Paroxysmal A-fib ([facility]) Take 1 Tablet by mouth daily. 30 Tablet 5 12/06/2022 Active Isosorbide Mononitrate ER 120 MG Oral Tablet Extended Release 24 Hour (Imdur) TAKE 1 TABLET BY MOUTH EVERY MORNING 90 Tablet 1 12/12/2022 Active documented as of this encounter (statuses as of 12/23/2022) Active Problems Problem Noted Date Paroxysmal A-fib [...] with wider margins) Staging: Stage 0 - [id number] - Melanoma in situ Type 2 diabetes [...] as of this encounter (statuses as of 12/23/2022) Resolved Problems Problem Noted Date Resolved Date [...] Aortic root 4.4 cm 4.29.2009 echo at [facility]. HTN, goal below 130/80 06/14/2009 [...] # PI: Francoise Tomlin MD Please call [phone] with study related questions INTERFACED RESULT 11/17/2008 10/17/2011 GENOMICS CARDIO RESEARCH OTHER*[id number]/25/2016 Overview: Renamed Per Clinical Trials Billing Project. Study Titile: Genomic Markers for Patients with Cardiovascular Disease Project # PI: Francoise Tomlin MD Please call [phone] with study related questions CLASS I-II ANGINA [...] as of this encounter (statuses as of 12/23/2022) Immunizations Name Administration Dates Next Due Pneumococcal [...] Comments:quit 30 yrs ago, wh ile in [employer] for 4 years Alcohol Use Standard Drinks/Week [...] on file documented as of this encounter Progress Notes * Crystal Corneliusshari Morgan, [facility] - 12/23/2022 9:55 AM EDT Medication Therapy Disease [facility] - Diabetes Management Progress Note Dirk Garcia, identified by name and date of , is a 87 year old male being seen for diabetes management/education. Patient presents for return diabetic visit. DIABETES: Hospitalization in September 2022, no changes to diabetic regimen Current diabetic medications: [id number] mg- 3 tablets daily [id number] daily Medication Injection Site: Abdomen Lifestyle: Diet: unchanged Glucose Review/SMBG: Readings per patient memory/recall: Patient is currently testing 0 times a day Hypoglycemia: Does your blood sugar go below 70 mg/dL? No Hyperglycemia symptoms present: none Recent Labs Units 11/25/22 1428 07/10/22 0900 12/04/21 1151 HEMOGLOBIN A1C - [facility] % 8.1* 9.4* 8.0* Recent Labs Units 12/02/22 1450 11/25/22 1428 10/25/22 1131 ESTIMATED GLOMERULAR FILTRATION RATE - [facility] mL/min 54* 44* 46* CREATININE - [facility] mg/dL 1.3* 1.5* 1.5* HYPERTENSION: Patient on ACEi/ARB: no, BP Readings from Last 3 Encounters: 12/02/22 130/64 11/25/22 108/60 10/25/22 118/64 Blood pressure at goal: yes HYPERLIPIDEMIA: Patient is taking moderate or high intensity statin: yes HEALTH MAINTENANCE REVIEW: Health Maintenance Due Topic Date Due DXA Scan Never done Zoster Vaccines (1 of 2) Never done COVID-19 Vaccine (3 - Pfizer series) 09/20/2020 COLONOSCOPY-EVERY 5 YRS AGES 18-100 03/20/2021 Depression Screening, Annual for Pts 12 and Over 10/26/2021 DTaP,Tdap,and Td Vaccines (2 - Td or Tdap) 07/10/2022 DIABETES-FOOT EXAM 08/08/2022 ASSESSMENT & PLAN: ICD-10-CM 1. 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 Medications - Reviewed current regimen, patient is adherent to regimen. Diet, Exercise, Lifestyle - No significant lifestyle changes since last visit. Discussed with patient . Patient is agreeable to SMBG 0 time(s) daily. Patient aware to contact clinic if any hypoglycemia before next visit. MEDICATION CHANGES: no change Diabetic Medications: [id number] mg- 3 tablets daily Azniol27unmri daily HEALTH MAINTENANCE INTERVENTIONS: Labs: Up to Date Immunizations: Tdap due Foot Exam: Complete with next PCP visit on 02/12/23 Eye Exam: Up to Date Annual Wellness Visit: Up to Date FOLLOW UP: Return to clinic in 12 weeks 03/17/2023 Tato Escobar PharmD Clinical Pharmacist Med[facility] 12/23/2022 10:25 AM Crystal Morgan RPh Clinical Pharmacist - Sand T[facility] 12/23/2022, 9:56 AM documented in this encounter Plan of Treatment Upcoming Encounters Date Type Specialty Care Team Description 12/23/2022 Office Visit Cardiology [facility] [address] [place] [address] 02/12/2023 Office Visit Family Medicine Carola Arrington MD [address] [place] [address] 03/17/2023 Office Visit Pharmacy [facility] [address] [place] [address] 08/14/2023 Office Visit Dermatology Lyssa Gar MD [address] [place] [address], [place] [address] Health Maintenance Due Date Last Done Comments [...] Additional history exists CKD HGB USE SMARTSET 30628 12/03/202312/02, 12/02/2022, 11/25/2022, Additional history exists CKD PHOS USE SMARTSET 42214 12/03/202311/16, 09/15/2020, 04/18/2020, Additional history exists Pneumococcal [...] mellitus with stage 3b chronic kidney disease, unspecified whether termite exterminator insulin use (HCC)- Primary documented in this encounter Advance Directives Latest [...] the patient have Health Care Power of Cell Room Operator? Yes, not currently available Code Status History Code Status Date Activated Date Inactivated Comments Full Code 09/15/2009 2:06 PM 09/16/2009 8:49 PM This o rder reflects the patients wishes and were consensually agreed upon. Question Answer Comments Discussion of Advance Directives occurred with: Patient/Family Does the patient have a Living Will? No Does the patient have Health Care Power of Cell Room Operator? No Full Code 11/25/2008 1:50 PM 11/29/2008 9:11 PM This order reflects the patients wishes and were consensually agreed upon. Question Answer Comments Discussion of Advance Directives occurred with: Patient Care Teams Story Editor Relationship Specialty Start Date End Date Carola Arrington MD [address] [place] [address] PCP - General Internal Medicine 12/19/20 documented as of this encounter
--- OUTSIDE RECORDS SUMMARY | 2023-02-21 02:34 | External Medical Summary ---
Author Name Unknown Address Unknown Organization [facility] [address] [place] [address] Laboratory Report Ordering Provider Test Date Status RONALD EVANS 12/02/2022 14:50:19 Final Observation Date Value Abnormality Reference (Units ) Status Phosphate 12/02/2022 14:50:19 2.3 Below low normal 2.5 -4.8 (mg/dL) Final Performing Location [facility] [address] [place] [address]
--- OUTSIDE RECORDS SUMMARY | 2023-02-21 02:34 | External Medical Summary | Summary of Care ---
Author Name Unknown Organization [facility] Address [address] [place] [address] Phone [phone] Care Team Providers Care Warehouse And Receiving Supervisor Name Role Phone Carola Arrington MD Primary Care Provider Reason for Visit * Reason Comments Hospital Follow-Up [facility] 11/27-11/30/22. O md patient rehab currently. Dizziness now and then when standing too quickly but doesn't last long. Asking for assistance with a handicapped plaque. Denies chest pain, palpitations, SOB and edema. Encounter Details Date Type Department Care Team Description 12/23/2022 Office Visit Cardiology, [facility] [address] [place] [address] Cesar Elias PA-C [address] [facility] [place] [address] PAF (paroxysmal atrial fibrillation) (HCC)*; Dyslipidemia, goal LDL below 70; Encounter for monitoring amiodarone therapy; ASCVD (arteriosclerotic cardiovascular disease); Aortocoronary bypass status; HTN, goal below 140/90; Stable angina (HCC) Allergies No known active allergiesdocumented as of this encounter (statuses as of 12/26/2022) Medications Medication Sig Dispensed Refills Start Date [...] 100 UNIT/ML Subcutaneous Solution Pen-injector (Insulin Glargine Solostar)Indicati ons:DM type 2, goal A1C to be determined ([facility]),Type 2 diabetes mellitus with stage 3b chronic kidney disease, without long-term current use of insulin ([facility]) INJECT 22 UNITS SUBCUTANEOUSLY (UNDER THE SKIN) IN THE MORNING OR DIRECTED 15 mL 3 04/16/2022 Active Additional Information Patient taking differently: 25 Units Subcutaneous [id number], Reported on 09/30/2022 metFORMIN HCl ER 500 [...] 12/23/2022 Clopidogrel Bisulfate 75 MG Oral Tablet (pLAVix)Indicatio ns:Aortocoronary bypass status,Acute coronary syndrome (HCC),Chronic coronary artery disease,Enlarged aorta ([facility]) TAKE 1 TABLET BY MOUTH EVERY DAY 100 Tablet 1 07/24/2022 Active BD Pen Needle Emperatriz 2nd Gen 32G X 4 MM (Insulin Pen Needle)Indication s:Type 2 diabetes mellitus with stage 3b chronic kidney disease, without long-term current use of insulin ([facility]),DM type 2, goal A1C to be determined ([facility]) USE WITH INSULIN PEN EVERY DAY 100 Each 1 07/24/2022 Active Amiodarone HCl 200 MG Oral Tablet (Cordarone)Indica tions:Paroxysmal A-fib ([facility]) Take [...] before bedtime. 180 Tablet 3 12/23/2022 Active Ranolazine ER 1000 MG Oral Tablet Extended Release 12 HourIndications:C hest pain,Unstable angina (HCC) TAKE 1 TABLET TWICE A DAY 180 Tablet 3 08/27/2022 12/24/19 Discontinu ed(Refill) Rosuvastatin Calcium 20 MG Oral Tablet (Crestor)Indicati ons:Dyslipidemia, goal LDL below 70,Dyslipidemia, goal LDL below 160,Mixed dyslipidemia TAKE 1 TABLET IN THE MORNING 90 Tablet 2 11/12/2022 12/24/19 Discontinu ed(Refill) Cefdinir 300 MG Oral Capsule (Omnicef) Take 1 Capsule by mouth in the morning and 1 Capsule before bedtime. 0 11/30/2022 12/24/19 Discontinu ed(Patient preference /discontin uation) documented as of this encounter (statuses as of 12/26/2022) Active Problems Problem Noted Date Paroxysmal A-fib [...] with wider margins) Staging: Stage 0 - [id number] - Melanoma in situ Type 2 diabetes [...] as of this encounter (statuses as of 12/26/2022) Resolved Problems Problem Noted Date Resolved Date [...] Aortic root 4.4 cm 4.29.2009 echo at [facility]. HTN, goal below 130/80 06/14/2009 [...] Markers for Patients with Cardiovascular Disease Project #[id number] PI: Ricardo Yang MD Please call [phone] with study related questions INTERFACED RESULT 11/17/2008 10/17/2011 GENOMICS CARDIO RESEARCH OTHER*[id number] 200806/25/2016 Overview: Renamed Per Clinical Trials Billing Project. Study Titile: Genomic Markers for Patients with Cardiovascular Disease Project #[id number] PI: Ricardo Yang MD Please call [phone] with study related questions CLASS I-II ANGINA [...] as of this encounter (statuses as of 12/26/2022) Immunizations Name Administration Dates Next Due Pneumococcal [...] Sign Reading Time Taken Comments Blood Pressure 144/76 12/23/2022 3:01 PM EDT Pulse 68 12/23/2022 3:01 PM EDT Temperature - - Respiratory Rate 16 12/23/2022 3:01 PM EDT Oxygen Saturation - - Inhaled Oxygen Concentration - - Weight 66.9 kg (147 lb 8 oz) 12/23/2022 3:01 PM EDT Height - - Body Mass Index 20.57 10/25/2022 10:44 AM EDT documented in this encounter Progress Notes * Cesar Elias PA-C - 12/23/2022 3:23 PM EDT SUBJECTIVE: Dirk Garcia is a 87 year old male followed by Dr. Blake frances in May 2022. I last saw this patient in 2017. Admitted to [facility] in September 2022 with frequent falls, developing atrial fibrillation with a rapid ventricular response on September 25, 2022, without associated symptoms. Patient prescribed amiodarone at that time with subsequent conversion to sinus rhythm. Risks of anticoagulation were felt to be greater than the benefit. Hospitalized in November 2022 with generalized weakness, recurrent falls, complicated UTI, hyponatremia. LFTs were normal at that time. TSH was elevated. Patient returns today feeling relatively well. Notes participating in outpatient rehabilitation. Dizziness occurs every now and then when standing too quickly, very short lived. Requests [employer] application completion today. No chest pain. No palpitations. No new or worsening shortness of breath. No orthopnea, PND, or lower extremity peripheral edema. No syncope. No current fevers or chills. No melena or hematochezia. Problem List (as per Dr. Lozano): 1. Atherosclerotic coronary disease status post coronary bypass grafting November of 2008 for diffuse coronary disease, receiving REYES graft to LAD, saphenous vein graft to left circumflex, saphenous vein graft to the posterior descending artery. 2. Coronary intervention August of 2009, receiving drug-eluting stent to the left circumflex, obtusemarginal, and right coronary artery with patent REYES graft, occluded saphenous vein grafts 3. Cardiac catheterization 2011 without progression of disease, branch vessel marginal disease and chronic right coronary occlusion 4. 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 5. Hypertension. 6. Hyperlipidemia. 7. Mild nonrheumatic, calcific aortic valve stenosis 8. Right bundle-branch block 9. CKD stage 3 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 Dyslipidemia, goal LDL below 70 E78.5 S/P angioplasty with stent Z95.820 DM type 2, goal A1C to be determined ([facility]) E11.9 HTN, goal below 140/90 I10 History of colon polyps Z86.010 Stable angina ([facility]) I20.8 Hypertensive kidney disease with stage 3b chronic kidney disease I12.9, N18.32 Type 2 diabetes mellitus with stage 3b chronic kidney disease (HCC) E11.22, N18.32 Chronic kidney disease, stage 3b (HCC) N18.32 Hx of melanoma of skin Z85.820 Type 2 diabetes mellitus with stage 3b chronic kidney disease, with long- term current use of insulin (HCC) E11.22, N18.32, Z79.4 Enlarged aorta ([facility]) I77.89 Unstable angina ([facility]) I20.0 Paroxysmal A-fib ([facility]) I48.0 Past Medical History: Diagnosis Date Aortocoronary bypass status 12/06/2008 Benign neoplasm of colon 01/18 Chronic coronary artery disease 11/17/2008 Coronary atherosclerosis of [place] coronary artery DM type 2, goal A1c below 7 DM type 2, goal A1C to be determined ([facility]) Dyslipidemia, goal LDL below 160 Dyslipidemia, goal LDL below 70 05/01/2009 Per Lipid Taxonomy. Enlarged aorta (HCC) 09/15/2009 Aortic root 4.4 cm 4.29.2010 echo at [facility]. HTN, goal below 130/80 06/14/2009 Per HTN Taxonomy. HTN, goal below 140/90 S/P angioplasty with stent drug eluting 09/15/09 Plavix x 12m Past Surgical History: Procedure Laterality Date CABG, ARTERIAL, SINGLE 11/25/08 CORONARY ARTERY BYPASS GRAFT USING ARTERY 1 GRAFT performed by MAXIMILIANO CASILLAS at [facility] CABG, ARTERY-VEIN, TWO 11/25/08 CORONARY ARTERY BYPASS GRAFT ARTERIAL AND VENOUS 2 GRAFTS performed by MAXIMILIANO CASILLAS at [facility] CATHETERIZE LEFT HEART THRU SKIN Cardiac Catheterization, Left Heart CATHETERIZE LEFT HEART THRU SKIN 11/17/08 LEFT HEART CATH, PERCUTANEOUS performed by DRAKE MALOEN at [facility] CATHETERIZE LEFT HEART THRU SKIN 09/15/09 LEFT HEART CATH, PERCUTANEOUS performed by RICARDO YANG at [facility] COLONOSCOPY THRU STOMA, W/BIOPSY jan 2002 adenomatous and hyperplastic polyps, next in jan 2005 CORONARY ANGIOGRAPHY W/LEFT HEART CATH 11/25/2011 CORONARY ANGIOGRAPHY W/LEFT HEART CATH performed by Jermaine Leary DO at [facility] DESTRUCTION PREMALIGNANT LESION 1ST about 2001 facial lesion. 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 Review of patient's allergies indicates: No Known Allergies Current Outpatient Medications Medication Sig Dispense Refill aspirin 81 MG chewable tablet Take 1 Tablet by mouth in the morning. 34 Tab 11 Lantus SoloStar 100 UNIT/ML Subcutaneous Solution Pen-injector (Insulin Glargine Solostar) INJECT 22 UNITS SUBCUTANEOUSLY (UNDER THE SKIN) IN THE MORNING OR DIRECTED (Patient taking differently: Inject 25 Units under the skin every evening.) 15 mL 3 metFORMIN HCl ER 500 MG Oral Tablet Extended Release 24 Hour (Glucophage XR) TAKE 3 TABLETS BY MOUTH EVERY DAY WITH FOOD (Patient taking differently: TAKE 2 TABLET BY MOUTH IN THE MORNING AND 1 TABLETS IN THE EVENING WITH FOOD) 270 Tablet 1 Clopidogrel Bisulfate 75 MG Oral Tablet (pLAVix) [...] 1 Tablet before bedtime. 180 Tablet 3 nitroglycerin (NITROSTAT) 0.4 MG SUBL DISSOLVE 1 TABLET UNDER THE TONGUE EVERY 5 MINUTES FOR CHEST PAIN. UP TO 3 DOSES IN 15 MINUTES. (Patient not taking: Reported on 12/02/2022) 25 Tab 1 BD Pen Needle Emperatriz 2nd Gen 32G X 4 MM (Insulin Pen Needle) USE WITH INSULIN PEN EVERY DAY 100 Each 1 No current facility-administered medications for this visit. OBJECTIVE/PHYSICAL EXAMINATION: BP 144/76 | Pulse 68 | Resp 16 | Wt 66.9 kg (147 lb 8 oz) | BMI 20.57 kg/m | BSA 1.83 m General: alert, no distress, comfortable and cooperative Skin: No rash Eyes: PER. Conjunctiva pink, sclera clear. HENT: Normocephalic. Atraumatic. Neck: Transmitted systolic murmur. Bilateral carotid bruits. No JVD. Heart: RRR. Grade II/ systolic murmur. No diastolic murmur. Lungs: Diminished at the left base. No dullness to percussion. No abnormal breath sounds. No wheeze. Abdomen: +BS. Soft. Nontender. No masses. No organomegaly. Extremities: No clubbing, cyanosis, or edema. Pulses: radial=2/4, posterior tibial=1/4. Limited neurological examination: Foot drop Data: Stress perfusion nuclear imaging January 22, 2019 Interpretation Summary: Abnormal combined low intensity exercise/pharmacologic nuclear stress test. Symptoms suggestive angina occurred during the stress portion the test. The EKG response was equivocal. Perfusion images consistent with inferior wall infarction mild superimposed ischemia. Gated SPECT images reveal mild inferior wall hypokinesis, calculated LV EF equals 60%, which is normal. Study is similar to the prior testing of December 2014 and July 2016 September 24, 2022 resting echo: EF 65 to 70%. Mild concentric LVH. Moderately dilated left atrium. Moderate aortic valve sclerosis without significant stenosis. Mild tricuspid regurgitation. Doppler findings do not suggest hypertension EKG performed on December 23, 2022 called personally reviewed, revealed normal sinus rhythm at 65 bpm with possible left atrial enlargement, chronic right bundle branch block. QTc 507 ms. IMPRESSION: Paroxysmal atrial fibrillation. Options of management discussed. Continue amiodarone at 200 mg/day.Risks of anticoagulation appear greater than the benefit. LFTs normal in November 2022 at [facility]. TSH abnormal. Repeat TSH with reflex free T4 requested today. Chronic ischemic heart disease, remote coronary bypass grafting, November 2008. Patient with chronic stable CCS Class 2-3 angina pectoris. Continue appropriate medical management. Hypertension. Blood pressure acceptably controlled. Continue the current antihypertensive regimen. Chronic right bundle branch block. Dyslipidemia. On rosuvastatin 20 mg/day. LDL 52 mg/dL on 09/15/2020. Check LDL cholesterol with the TFT's today. Chart history of mild aortic valve stenosis. Echocardiography in September 2022 with moderate aortic valve sclerosis without significant stenosis. Stage 3 chronic kidney disease. Handicapped placard application completed. Ranexa and rosuvastatin refilled as requested. Laboratory work ordered. Routine cardiology follow-up in 6 months time or as needed. ER with emergencies Cesar Elias PA-C Department of Cardiology documented in this encounter Procedure Notes * Thomas Cullen DO - 12/23/2022 3:13 PM EDTAssociated Order(s): EKG COMPLETE (TRACING AND INTERP) REASON FOR STUDY: HTN CONCLUSIONS: Normal sinus rhythm Possible Left atrial enlargement Right bundle branch block Abnormal ECG When compared with ECG of 18-OCT-2021 07:59, T wave inversion now evident in Inferior leads Nonspecific T wave abnormality now evident in Lateral leads Ventricular Rate: 65 Atrial Rate: 65 MS Interval: 196 QRS Duration: 168 QT/QTc: 488/507 ms P-R-T [place]: 62 : 74 : 31 degrees documented in this encounter Nursing Notes * Tomás Bright LPN - 12/23/2022 2:59 PM EDT Patient identified by full name and date of Chief Complaint Patient presents with Hospital Follow-Up [facility] 11/27-11/30/22. Out patient rehab currently. Dizziness now and then when standing too quickly but doesn't last long. Asking for assistance with a handicapped plaque. Denies chest pain, palpitations, SOB and edema. Examination Room: 3 Name: Dirk Garcia Date of : (1935). Reason for Visit: HD follow up Interim Hospitalization(s): [facility] 11/27-11/30/22 Problems/Concerns: See chief complaint Chest Pain/SOB: Denies [facility] Discussed: Not applicable [facility] is a way you can talk to your provider online through e-mail. Would you like to sign up? I can activate it for you? DECLINES Patient was instructed to not get up on the exam table until directed and assisted by their provider; patient is to remain seated in the chair/ wheelchair/ exam table for fall prevention and safety reasons. Patient is aware to have assistance to step down off exam table with personnel. Patient voiced full comprehension of instructions. documented in this encounter Plan of Treatment Upcoming Encounters Date Type Specialty Care Team Description 02/12/2023 Office Visit Family Medicine Carola Arrington MD [address] [place] [address] 03/17/2023 Office Visit Pharmacy [facility] [address] [place] [address] 08/14/2023 Office Visit Dermatology Lyssa Gar MD [address] [place] [address] Health Maintenance Due Date Last Done Comments [...] Additional history exists CKD HGB USE SMARTSET 66520 12/03/202312/02, 12/02/2022, 11/25/2022, Additional history exists CKD PHOS USE SMARTSET 06802 12/03/202311/16, 09/15/2020, 04/18/2020, Additional history exists Pneumococcal [...] Procedure Name Priority Date/Time Associated Diagnosis Comments MS ECG ROUTINE ECG W/LEAST 12 LDS W/I&R Routine 12/23/2022 3:13 PM EDT documented in this encounter Results * LDL CHOLESTEROL (DIRECT MEASURE) (12/23/2022 4:01 PM EDT) Pathologist [facility] LDL Cholesterol (Direct Measure) 44 <=129 mg/dL 12/24/2022 4:59 AM EDT LAB[facility] Comment: LDL Cholesterol Reference Ranges (mg/dL): <70 Target level for high risk ASCVD patient <100 Optimal for general population 100-129 Near optimal for general population 130-159 Borderline high 160-189 High >=190 Very high Blood Venous blood specimen / Unknown Venipuncture / Unknown 12/23/2022 4:01 PM EDT 12/23/2022 4:01 PM EDT Cesar Elias PA-C LAB BLOOD ORDERABLE S [facility] [address] [place] [address] * (ABNORMAL) TSH WITH FREE T4 IF INDICATED (12/23/2022 4:01 PM EDT) TSH 5.38(H) 0.27 - 4.20 uIU/mL 12/24/2022 5:23 AM EDT [facility] Blood Venous blood specimen / Unknown Venipuncture / Unknown 12/23/2022 4:01 PM EDT 12/23/2022 4:01 PM EDT Cesar Israel Curt NOVAK LAB BLOOD ORDERABLE S [facility] [address] [place] [address] * EKG COMPLETE (TRACING AND INTERP) (12/23/2022 3:13 PM EDT) 12/23/2022 3:13 PM EDT Procedure Note Thomas Cullen, - 12/23/2022 3:13 PM EDT REASON FOR STUDY: HTN CONCLUSIONS: Normal sinus rhythm Possible Left atrial enlargement Right bundle branch block Abnormal ECG When compared with ECG of 18-OCT-2021 07:59, T wave inversion now evident in Inferior leads Nonspecific T wave abnormality now evident in Lateral leads Ventricular Rate: 65 Atrial Rate: 65 MS Interval: 196 QRS Duration: 168 QT/QTc: 488/507 ms P-R-T [place]: 62 : 74 : 31 degrees Cesar Israel Curt NOVAK EKG Performing Organization Address City/[facility] Co de Phone Number [facility] documented in this encounter Visit Diagnoses Diagnosis PAF (paroxysmal atrial fibrillation) (HCC)- Primary Atrial fibrillation Dyslipidemia, goal LDL below 70 Other and unspecified hyperlipidemia Encounter for monitoring amiodarone therapy Encounter for therapeutic drug monitoring ASCVD (arteriosclerotic cardiovascular disease) Unspecified cardiovascular disease Aortocoronary bypass status Postsurgical aortocoronary bypass status HTN, goal below 140/90 Unspecified essential hypertension Stable angina (HCC) Other and unspecified angina pectoris documented in this encounter Advance Directives Latest [...] the patient have Health Care Power of Nursing Director? Yes, not currently available Code Status History Code Status Date Activated Date Inactivated Comments Full Code 09/15/2009 2:06 PM 09/16/2009 8:49 PM This o rder reflects the patients wishes and were consensually agreed upon. Question Answer Comments Discussion of Advance Directives occurred with: Patient/Family Does the patient have a Living Will? No Does the patient have Health Care Power of Nursing Director? No Full Code 11/25/2008 1:50 PM 11/29/2008 9:11 PM This order reflects the patients wishes and were consensually agreed upon. Question Answer Comments Discussion of Advance Directives occurred with: Patient Care Teams Warehouse And Receiving Supervisor Relationship Specialty Start Date End Date Carola Arrington MD [address] [place] [address] PCP - General Internal Medicine 12/19/20 documented as of this encounter"
--- OUTSIDE RECORDS SUMMARY | 2023-02-21 02:34 | External Medical Summary ---
Author Name Unknown Address Unknown Organization K01:LAB[facility]ATORY [facility] - [address] [place] [address] Laboratory Report Ordering Provider Test Date Status RONALD EVANS 12/02/2022 14:50:19 Final Observation Date Value Abnormality Reference (Units ) Status MARTIN 12/02/2022 14:50:19 [id number] (U/ L) Final Performing Location [facility] - [address] [place] [address]
--- OUTSIDE RECORDS SUMMARY | 2023-02-21 02:34 | External Medical Summary | Summary of Care ---
Author Name Unknown Organization [facility] Address [address] [place] [address] Phone [phone] Care Team Providers Care Sales Floor Manager Name Role Phone Carola Arrington MD [...] SPINE WO CONTRAST Kierra Fox DO [address] [place] [address] Referral ID Status Reason Start Date Expiration Date V isits Requested Visits Authorized [id number] Pending Review 12/06/2022 999 999 Reason for Visit * Reason Onset Date Comments Test Results 12/05/2022 Encounter Details Date Type Department Care Team Description 12/05/2022 Telephone Family Practice [facility] [address] [place] [address] Kierra Fox DO [address] [place] [id number] Test Results (/) Allergies No known active allergiesdocumented as of this encounter (statuses as of 12/06/2022) Medications Medication Sig Dispensed Refills Start Date [...] type 2, goal A1C to be determined ([facility]),Type 2 diabetes mellitus with stage 3b chronic kidney disease, without long-term current use of insulin (HCC) INJECT 22 UNITS SUBCUTANEOUSLY (UNDER THE SKIN) IN THE MORNING OR DIRECTED 15 mL 3 04/16/2022 Active Additional Information Patient taking differently: 25 Units Subcutaneous [id number], Reported on 09/30/2022 Isosorbide Mononitrate ER 120 MG Oral Tablet Extended Release 24 Hour (Imdur) TAKE 1 TABLET BY MOUTH EVERY MORNING 90 Tablet 1 06/14/2022 Active Additional Information Patient not taking.Reported on 12/02/2022 metFORMIN HCl ER 500 MG Oral Tablet Extended Release 24 Hour (Glucophage XR)Indications:DM type 2, goal A1C to be determined ([facility]) TAKE 3 TABLETS BY MOUTH EVERY DAY WITH FOOD 270 Tablet 1 07/04/2022 Active Additional Information Patient taking differently: TAKE 1 TABLET BY MOUTH IN THE MORNING AND 2 TABLETS IN THE EVENING WITH FOOD, Reported on 09/30/2022 Clopidogrel Bisulfate 75 MG Oral Tablet (pLAVix)Indicatio [...] be determined (HCC) USE WITH INSULIN PEN EVERY DAY 100 Each 1 07/24/2022 Active Ranolazine ER 1000 MG Oral Tablet Extended Release 12 HourIndications:C hest pain,Unstable angina (HCC) TAKE 1 TABLET TWICE A DAY 180 Tablet 3 08/27/2022 Active Additional Information Patient not taking.Reported on 12/02/2022 Rosuvastatin Calcium 20 MG Oral Tablet (Crestor)Indicati ons:Dyslipidemia, goal LDL below 70,Dyslipidemia, goal LDL below 160,Mixed dyslipidemia TAKE 1 TABLET IN THE MORNING 90 Tablet 2 11/12/2022 Active Additional Information Patient not taking.Reported on 12/02/2022 Cefdinir 300 MG Oral Capsule (Omnicef) Take 1 Capsule by mouth in the morning and 1 Capsule before bedtime. 0 11/30/2022 Active Amiodarone HCl 200 MG Oral Tablet (Cordarone) TAPER DIRECTED TAKE 1 TABLET BY MOUTH TWO TIMES DAILY FOR 7 DAYS THEN TAKE TAKE 1 TABLET BY MOUTH EVERY DAY 0 09/27/2022 12/07/19 23 Discontinu ed(Refill) documented as of this encounter (statuses as of 12/06/2022) Active Problems Problem Noted Date Paroxysmal A-fib [...] with wider margins) Staging: Stage 0 - [id number] - Melanoma in situ Type 2 diabetes [...] as of this encounter (statuses as of 12/06/2022) Resolved Problems Problem Noted Date Resolved Date [...] Aortic root 4.4 cm 4.29.2009 echo at [facility]. HTN, goal below 130/80 06/14/2009 2 Overview: Per HTN Taxonomy. Type 2 diabetes mellitus wit h hemoglobin A1c goal of less than 7.0% 03/02/2009 03/27/2011 Overview: Modified per Diabetes protocol #14. ICD-10 update of inactive term EXAMINATION OF PARTICIPANT IN CLINICAL TRIAL-gen omics 11/17/2008 09/01/2009 Overview: Renamed Per Clinical Trials Billing Project. Study Titile: Genomic Markers for Patients with Cardiovascular Disease Project #[id number] PI: Francoise Tomlin MD Please call [phone] with study related questions INTERFACED RESULT 11/17/2008 10/17/2011 GENOMICS CARDIO RESEARCH OTHER*[id number] 200806/25/2016 Overview: Renamed Per Clinical Trials Billing Project. Study Titile: Genomic Markers for Patients with Cardiovascular Disease Project #[id number] PI: Francoise Tomlin MD Please call [phone] with study related questions CLASS I-II ANGINA [...] as of this encounter (statuses as of 12/06/2022) Immunizations Name Administration Dates Next Due Pneumococcal [...] [facility] [address] [place] [address] 12/23/2022 Office Visit Cardiology Cesar Elias PA-C [address] [place] [address] 12/28/2022 Imaging Radiology 02/12/2023 Office Visit Family Medicine Carola Arrington MD [address] [place] [address] 08/14/2023 Office Visit Dermatology Lyssa Gar MD [address] [place] [address] Scheduled Orders Name Type Priority Associated Diagnoses [...] Additional history exists CKD HGB USE SMARTSET 26370 12/03/202312/02, 12/02/2022, 11/25/2022, Additional history exists CKD PHOS USE SMARTSET 49394 12/03/202311/16, 09/15/2020, 04/18/2020, Additional history exists Pneumococcal [...] the patient have Health Care Power of Cushion Stuffer? Yes, not currently available Code Status History Code Status Date Activated Date Inactivated Comments Full Code 09/15/2009 2:06 PM 09/16/2009 8:49 PM This o rder reflects the patients wishes and were consensually agreed upon. Question Answer Comments Discussion of Advance Directives occurred with: Patient/Family Does the patient have a Living Will? No Does the patient have Health Care Power of Cushion Stuffer? No Full Code 11/25/2008 1:50 PM 11/29/2008 9:11 PM This order reflects the patients wishes and were consensually agreed upon. Question Answer Comments Discussion of Advance Directives occurred with: Patient Care Teams Sales Floor Manager Relationship Specialty Start Date End Date Carola Arrington MD [address] [place] [address] PCP - General Internal Medicine 12/19/20 documented as of this encounter
--- OUTSIDE RECORDS SUMMARY | 2023-02-21 02:34 | External Medical Summary | Summary of Care ---
Author Name Unknown Organization [facility] Address [address] [place] [address] Phone [phone] Care Team Providers Care Spinner Hand Name Role Phone Carola Arrington MD Primary Care Provider Reason for Visit * Reason Comments eRx-Medication Refill Encounter Details Date Type Department Care Team Description 12/11/2022 Refill Family Practice [facility] [address] [facility] [place] [address] [facility] [address] [facility] [place] [address] Allergies No known active allergiesdocumented as of this encounter (statuses as of 12/12/2022) Medications Medication Sig Dispensed Refills Start Date [...] long-term current use of insulin ([facility]) INJECT 22 UNITS SUBCUTANEOUSLY (UNDER THE SKIN) IN THE MORNING OR DIRECTED 15 mL 3 2 Active Additional Information Patient taking differently: 25 Units Subcutaneous [id number], Reported on 09/30/2022 metFORMIN HCl ER 500 MG Oral Tablet Extended Release 24 Hour (Glucophage XR)Indications:D M type 2, goal A1C to be determined ([facility]) TAKE 3 TABLETS BY MOUTH EVERY DAY WITH FOOD 270 Tablet 1 3 Active Additional Information Patient taking differently: TAKE 1 TABLET BY MOUTH IN THE MORNING AND 2 TABLETS IN THE EVENING WITH FOOD, Reported on 09/30/2022 Clopidogrel Bisulfate 75 MG Oral Tablet (pLAVix)Indicati ons:Aortocoronar y bypass status,Acute coronary syndrome ([facility]),Chronic coronary artery disease,Enlarged aorta ([facility]) TAKE 1 TABLET BY MOUTH EVERY DAY 100 Tablet 1 3 Active Additional Information Patient not taking.Reported on 12/02/2022 BD Pen Needle Emperatriz 2nd Gen 32G X 4 MM (Insulin Pen Needle)Indicatio ns:Type 2 diabetes mellitus with stage 3b chronic kidney disease, without long-term current use of insulin ([facility]),DM type 2, goal A1C to be determined ([facility]) USE WITH INSULIN PEN EVERY DAY 100 Each 1 3 Active Ranolazine ER 1000 MG Oral Tablet Extended Release 12 HourIndications: Chest pain,Unstable angina ([facility]) TAKE 1 TABLET TWICE A DAY 180 Tablet 3 3 Active Additional Information Patient not taking.Reported on 12/02/2022 Rosuvastatin Calcium 20 MG Oral Tablet (Crestor)Indicat ions:Dyslipidemi a, goal LDL below 70,Dyslipidemia, goal LDL below 160,Mixed dyslipidemia TAKE 1 TABLET IN THE MORNING 90 Tablet 2 3 Active Additional Information Patient not taking.Reported on 12/02/2022 Cefdinir 300 MG Oral Capsule (Omnicef) Take 1 Capsule by mouth in the morning and 1 Capsule before bedtime. 0 3 Active Amiodarone HCl 200 MG Oral Tablet (Cordarone)Indic ations:Paroxysma l A-fib ([facility]) Take 1 Tablet by mouth daily. 30 Tablet 5 3 Active Isosorbide Mononitrate ER 120 MG Oral Tablet Extended Release 24 Hour (Imdur) TAKE 1 TABLET BY MOUTH EVERY MORNING 90 Tablet 1 3 Active Isosorbide Mononitrate ER 120 MG Oral Tablet Extended Release 24 Hour (Imdur) TAKE 1 TABLET BY MOUTH EVERY MORNING 90 Tablet 1 3 12/13/19 23 Discontinued documented as of this encounter (statuses as of 12/12/2022) Active Problems Problem Noted Date Paroxysmal A-fib [...] with wider margins) Staging: Stage 0 - [id number] - Melanoma in situ Type 2 diabetes [...] as of this encounter (statuses as of 12/12/2022) Resolved Problems Problem Noted Date Resolved Date [...] Aortic root 4.4 cm 4.29.2009 echo at [facility]. HTN, goal below 130/80 06/14/2009 2 Overview: [...] # PI: Francoise Tomlin MD Please call [phone] with study related questions INTERFACED RESULT 11/17/2008 10/17/2011 GENOMICS CARDIO RESEARCH OTHER*[id number] 200806/25/2016 Overview: Renamed Per Clinical Trials Billing Project. Study Titile: Genomic Markers for Patients with Cardiovascular Disease Project # PI: Francoise Tomlin MD Please call [phone] with study related questions CLASS I-II ANGINA [...] as of this encounter (statuses as of 12/12/2022) Immunizations Name Administration Dates Next Due Pneumococcal [...] Comments:quit 30 yrs ago, wh ile in [employer] for 4 years Alcohol Use Standard Drinks/Week [...] encounter Miscellaneous Notes * Telephone Encounter - Steph Ayala [facility] - 12/12/2022 9:34 AM EDTSigned Prescriptions: Disp Refills Isosorbide Mononitrate ER 120 MG Oral Tabl*90 Tab*1 Sig: TAKE 1 TABLET BY MOUTH EVERY MORNINGAuthorizing Provider: CAROLA ARRINGTON User: STEPH AYALA documented in this encounter Plan of Treatment Upcoming Encounters Date Type Specialty Care Team Description 12/23/2022 Office Visit Pharmacy [facility] Stephanie [address] [place] [address] 12/23/2022 Office Visit Cardiology Cesar Elias PA-C [address] [place] [address] 12/28/2022 Imaging Radiology 02/12/2023 Office Visit Family Medicine Carola Arrington MD [address] [place] [address] 08/14/2023 Office Visit Dermatology Lyssa Gar MD [address] [place] [address] Health Maintenance Due Date Last Done Comments [...] Additional history exists CKD HGB USE SMARTSET 29623 12/03/202312/02, 12/02/2022, 11/25/2022, Additional history exists CKD PHOS USE SMARTSET 48137 12/03/202311/16, 09/15/2020, 04/18/2020, Additional history exists Pneumococcal [...] the patient have Health Care Power of Plastics Factory Worker? Yes, not currently available Code Status History Code Status Date Activated Date Inactivated Comments Full Code 09/15/2009 2:06 PM 09/16/2009 8:49 PM This o rder reflects the patients wishes and were consensually agreed upon. Question Answer Comments Discussion of Advance Directives occurred with: Patient/Family Does the patient have a Living Will? No Does the patient have Health Care Power of Plastics Factory Worker? No Full Code 11/25/2008 1:50 PM 11/29/2008 9:11 PM This order reflects the patients wishes and were consensually agreed upon. Question Answer Comments Discussion of Advance Directives occurred with: Patient Care Teams Spinner Hand Relationship Specialty Start Date End Date Carola Arrington MD [address] [place] [address] PCP - General Internal Medicine 12/19/20 documented as of this encounter
--- OUTSIDE RECORDS SUMMARY | 2023-02-21 02:34 | External Medical Summary | Summary of Care ---
Author Name Unknown Organization [facility] Address [address] [place] [address] Phone [phone] Care Team Providers Care Training Systems Officer Name Role Phone Carola Arrington MD Primary Care Provider Reason for Visit * Reason Onset Date Comments Test Results 12/26/2022 Encounter Details Date Type Department Care Team Description 12/26/2022 Telephone Cardiology, [facility] [address] [facility] [address] Cesar Elias PA-C [address] [place] [address] Test Results Allergies No known active allergiesdocumented as of [...] disease, without long-term current use of insulin ([facility]) INJECT 22 UNITS SUBCUTANEOUSLY (UNDER THE SKIN) IN THE MORNING OR DIRECTED 15 mL 3 04/16/2022 Active Additional Information Patient taking differently: 25 Units Subcutaneous [id number], Reported on 09/30/2022 metFORMIN HCl ER 500 MG Oral Tablet Extended Release 24 Hour (Glucophage XR)Indications:DM type 2, goal A1C to be determined ([facility]) TAKE 3 TABLETS BY MOUTH EVERY DAY WITH FOOD 270 Tablet 1 07/04/2022 Active Additional Information Patient taking differently: TAKE 2 TABLET BY MOUTH IN THE MORNING AND 1 TABLETS IN THE EVENING WITH FOOD, Reported on 12/23/2022 Clopidogrel Bisulfate 75 MG Oral Tablet (pLAVix)Indication s:Aortocoronary bypass status,Acute coronary syndrome ([facility]),Chronic coronary artery disease,Enlarged aorta (HCC) TAKE 1 TABLET BY MOUTH EVERY DAY 100 Tablet 1 07/24/2022 Active BD Pen Needle Emperatriz 2nd Gen 32G X 4 MM (Insulin Pen Needle)Indications :Type 2 diabetes mellitus with stage 3b chronic kidney disease, without long-term current use of insulin ([facility]),DM type 2, goal A1C to be determined ([facility]) USE WITH INSULIN PEN EVERY DAY 100 Each 1 07/24/2022 Active Amiodarone HCl 200 MG Oral Tablet (Cordarone)Indicat ions:Paroxysmal A-fib ([facility]) Take 1 Tablet by mouth daily. 30 Tablet 5 12/06/2022 Active Isosorbide Mononitrate ER 120 MG Oral Tablet Extended Release 24 Hour (Imdur) TAKE 1 TABLET BY MOUTH EVERY MORNING 90 Tablet 1 12/12/2022 Active Rosuvastatin Calcium 20 MG Oral Tablet (Crestor)Indicatio ns:Dyslipidemia, goal LDL below 70 TAKE 1 TABLET DAILY 90 Tablet 3 12/23/2022 Active Ranolazine ER 1000 MG Oral Tablet Extended Release 12 Hour Take 1 Tablet by mouth in the morning and 1 Tablet before bedtime. 180 Tablet 3 12/23/2022 Active documented as of this encounter (statuses [...] with wider margins) Staging: Stage 0 - [id number] - Melanoma in situ Type 2 diabetes [...] Aortic root 4.4 cm 4.29.2009 echo at [facility]. HTN, goal below 130/80 06/14/2009 2 Overview: Per HTN Taxonomy. Type 2 diabetes mellitus wit h hemoglobin A1c goal of less than 7.0% 03/02/2009 03/27/2011 Overview: Modified per Diabetes protocol #14. ICD-10 update of inactive term EXAMINATION OF PARTICIPANT IN CLINICAL TRIAL-gen omics 11/17/2008 09/01/2009 Overview: Renamed Per Clinical Trials Billing Project. Study Titile: Genomic Markers for Patients with Cardiovascular Disease Project #[id number] PI: Francoise Tomlin MD Please call [phone] with study related questions INTERFACED RESULT 11/17/2008 10/17/2011 GENOMICS CARDIO RESEARCH OTHER*[id number] 200806/25/2016 Overview: Renamed Per Clinical Trials Billing Project. Study Titile: Genomic Markers for Patients with Cardiovascular Disease Project #[id number] PI: Francoise Tomlin MD Please call [phone] with study related questions CLASS I-II ANGINA PECTORIS, STABLE 04/26/2002 09/15/2009 Mixed dyslipidemia 04/26/2002 05/01/2009 Overview: Per Lipid Taxonomy. BENIGN NEOPLASM LG BOWEL 01/17/2002 019 HTN, goal below 140/90 08/23/1998 0 Overview: Per HTN Taxonomy. DM type 2, not at goal 08/23/1998 10/15/200 9 Overview: Modified per Diabetes protocol #14. [...] Comments:quit 30 yrs ago, wh ile in [employer] for 4 years Alcohol Use Standard Drinks/Week [...] encounter Miscellaneous Notes * Telephone Encounter - Tomás Bright LPN - 12/26/2022 4:15 PM EDT Called and informed patient of Cesar's message. Patient verbalized understanding. ----- Message from Cesar Elias PA-C sent at 12/24/2022 7:55 AM EDT ----- LDL, or bad cholesterol, is well controlled. TSH is mildly abnormal, with a normal free T4, improved from recent hospitalization ([facility]). Recommend repeat TSH with reflex free T4 in about 8 weeks documented in this encounter Plan of Treatment Upcoming Encounters Date Type Specialty Care Team Description 02/12/2023 Office Visit Family Medicine Carola Arrington MD [address] [place] [address] 03/17/2023 Office Visit Pharmacy [facility] Stephanie [address] [place] [address] 08/14/2023 Office Visit Dermatology Lyssa Gar MD [address] [facility] [place] [address] Scheduled Orders Name Type Priority Associated Diagnoses Orde r Schedule TSH WITH FREE T4 IF INDICATED Lab Routine Abnormal thyroid blood test Expected: 02/25/2023 (Approximate), Expires: 12/27/2023 Health Maintenance Due Date Last Done Comments [...] Additional history exists CKD HGB USE SMARTSET 60208 12/03/202312/02, 12/02/2022, 11/25/2022, Additional history exists CKD PHOS USE SMARTSET 46945 12/03/202311/16, 09/15/2020, 04/18/2020, Additional history exists Pneumococcal [...] as of this encounter Visit Diagnoses Diagnosis Abnormal thyroid blood test- Primary Nonspecific abnormal results of thyroid function study documented in this encounter Advance Directives Latest [...] the patient have Health Care Power of Quantitative Research Analyst? Yes, not currently available Code Status History Code Status Date Activated Date Inactivated Comments Full Code 09/15/2009 2:06 PM 09/16/2009 8:49 PM This o rder reflects the patients wishes and were consensually agreed upon. Question Answer Comments Discussion of Advance Directives occurred with: Patient/Family Does the patient have a Living Will? No Does the patient have Health Care Power of Quantitative Research Analyst? No Full Code 11/25/2008 1:50 PM 11/29/2008 9:11 PM This order reflects the patients wishes and were consensually agreed upon. Question Answer Comments Discussion of Advance Directives occurred with: Patient Care Teams Training Systems Officer Relationship Specialty Start Date End Date Carola Arrington MD [address] [place] [address] PCP - General Internal Medicine 12/19/20 documented as of this encounter
--- OUTSIDE RECORDS SUMMARY | 2023-02-21 02:34 | External Medical Summary ---
Author Name Unknown Address Unknown Organization [id number]:[facility] - [address] [place] [address] Laboratory Report Ordering Provider Test Date Status STEPHENIE RAMÍREZ 12/02/2022 14:50:19 Final Observation Date Value Abnormality Reference (Units ) Status MYCODE SPECIMEN-SST 12/02/2022 14:50:19 Freezing of extracted DNA, whole blood and/or serum. Final Performing Location [facility] - [address] [place] [address]
--- OUTSIDE RECORDS SUMMARY | 2023-02-21 02:34 | External Medical Summary ---
Author Name Unknown Address Unknown Organization [id number]:[facility] - [address] [place] [address] Laboratory Report Ordering Provider Test Date Status NATE WILLARD 12/23/2022 16:01:12 Final Observation Date Value Abnormality Reference (Units ) Status LDL, (direct) 12/23/2022 16:01:12 44 <=129 (mg/dL) Final Performing Location [facility]ATORY [facility] - [address] [place] [address]
--- OUTSIDE RECORDS SUMMARY | 2023-02-21 02:34 | External Medical Summary | Summary of Care ---
Author Name Unknown Organization [facility] Address [address] [place] [address] Phone [phone] Care Team Providers Care Meat Products Demonstrator Name Role Phone Carola Arrington MD Primary Care Provider Reason for Referral * Precert (Within 10 days (routine)) - Pending Review Specialty Diagnoses / Procedures Referred By Contharjinder t Referred To Contact Radiology Diagnoses Recurrent falls Osteoarthritis of lumbar spine, unspecified spinal osteoarthritis complication status Foot drop, right Weakness of both lower extremities Procedures MRI L SPINE WO CONTRAST Kierra Fox DO [address] [place] [address] Referral ID Status Reason Start Date Expiration Date V isits Requested Visits Authorized [id number] Pending Review 12/06/2022 999 999 Reason for Visit * Reason Onset Date Comments Test Results 12/05/2022 Encounter Details Date Type Department Care Team Description 12/05/2022 Telephone Family Practice [facility] [address] [place] [address] Kierra Fox DO [address] [place] [id number] Test Results (/) Allergies No known active [...] goal A1C to be determined ([facility]),Type 2 diabetes mellitus with stage 3b chronic kidney disease, without long-term current use of insulin ([facility]) INJECT 22 UNITS SUBCUTANEOUSLY (UNDER THE SKIN) IN THE MORNING OR DIRECTED 15 mL 3 04/16/20 22 Active Additional Information Patient taking differently: 25 Units Subcutaneous [id number], Reported on 09/30/2022 metFORMIN HCl ER 500 MG Oral Tablet Extended Release 24 Hour (Glucophage XR)Indications:D M type 2, goal A1C to be determined ([facility]) TAKE 3 TABLETS BY MOUTH EVERY DAY [...] goal A1C to be determined ([facility]) USE WITH INSULIN PEN EVERY DAY 100 [...] with wider margins) Staging: Stage 0 - [id number] - Melanoma in situ Type 2 diabetes [...] Aortic root 4.4 cm 4.29.2009 [facility] HTN, goal below 130/80 06/14/2009 2 Overview: Per HTN Taxonomy. Type 2 diabetes mellitus wit h hemoglobin A1c goal of less than 7.0% 03/02/2009 03/27/2011 Overview: Modified per Diabetes protocol #14. ICD-10 update of inactive term EXAMINATION OF PARTICIPANT IN CLINICAL TRIAL-gen omics 11/17/2008 09/01/2009 Overview: Renamed Per Clinical Trials Billing Project. Study Titile: Genomic Markers for Patients with Cardiovascular Disease Project #[id number] PI: Francoise Tomlin MD Please call [phone] with study related questions INTERFACED RESULT 11/17/2008 10/17/2011 GENOMICS CARDIO RESEARCH OTHER*[id number] 200806/25/2016 Overview: Renamed Per Clinical Trials Billing Project. Study Titile: Genomic Markers for Patients with Cardiovascular Disease Project #[id number] PI: Fracnoise Tomlin MD Please call [phone] with study related questions CLASS I-II ANGINA [...] encounter Miscellaneous Notes * Telephone Encounter - NERIS Araya - 12/26/2022 6:05 PM EDT Pt cancelled his MRI appt at [facility]. He states he does not know [...] Medicine Carola Arrington MD [address] [place] [address] 03/17/2023 Office Visit Pharmacy [facility] [address] [place] [address] 08/14/2023 Office Visit Dermatology Lyssa Gar MD [address] [place] [address] Scheduled Orders Name Type Priority Associated Diagnoses [...] Additional history exists CKD HGB USE SMARTSET 18890 12/03/202312/02, 12/02/2022, 11/25/2022, Additional history exists CKD PHOS USE SMARTSET 66086 12/03/202311/16, 09/15/2020, 04/18/2020, Additional history exists Pneumococcal [...] the patient have Health Care Power of Post Tensioning Ironworker Helper? Yes, not currently available Code Status History Code Status Date Activated Date Inactivated Comments Full Code 09/15/2009 2:06 PM 09/16/2009 8:49 PM This o rder reflects the patients wishes and were consensually agreed upon. Question Answer Comments Discussion of Advance Directives occurred with: Patient/Family Does the patient have a Living Will? No Does the patient have Health Care Power of Post Tensioning Ironworker Helper? No Full Code 11/25/2008 1:50 PM 11/29/2008 9:11 PM This order reflects the patients wishes and were consensually agreed upon. Question Answer Comments Discussion of Advance Directives occurred with: Patient Care Teams Meat Products Demonstrator Relationship Specialty Start Date End Date Carola Arrington MD [address] [place] [address] PCP - General Internal Medicine 12/19/20 documented as of this encounter
--- OUTSIDE RECORDS SUMMARY | 2023-02-21 02:34 | External Medical Summary | Summary of Care ---
Author Name Unknown Organization [facility] Address [address] [place] [address] Phone [phone] Care Team Providers Care Sales Negotiator Name Role Phone Carola Arrington MD Primary Care Provider Reason for Referral * Evaluate & Treat - Unlimited Visits (Within 10 days (routine)) - Pending Review Specialty Diagnoses / Procedures Referred By Silas alonzo Referred To Contact Physical Therapy / Physical Medicine And Rehab Diagnoses Generalized weakness Recurrent falls Kierra Santoyo DO [address] [place] [address] Referral ID Status Reason Start Date Expiration Date Visits Requested Visits Authorized [id number] Pending Review Specialty Services Required 12/02/2022 999 999 Question Answer Referral Priority Within 10 days (routine) Reason for Visit * Reason Comments Hospital Follow-Up Pt being seen for ho spital f/u apt, his meds have changed as well. Encounter Details Date Type Department Care Team Description 12/02/2022 Office Visit Family Practice [facility] [address] [place] [address] Kierra Santoyo DO [address] [place] [address] Complicated UTI (urinary tract infection)*; Generalized weakness; Hospital discharge follow-up; Recurrent falls [...] Information Patient taking differently: 25 Units Subcutaneous [id number], Reported on 09/30/2022 Isosorbide Mononitrate ER 120 [...] with wider margins) Staging: Stage 0 - [id number] - Melanoma in situ Type 2 diabetes [...] Aortic root 4.4 cm 4.29.2009 echo at [facility]. HTN, goal below 130/80 06/14/2009 2 Overview: Per HTN Taxonomy. Type 2 diabetes mellitus wit h hemoglobin A1c goal of less than 7.0% 03/02/2009 03/27/2011 Overview: Modified per Diabetes protocol #14. ICD-10 update of inactive term EXAMINATION OF PARTICIPANT IN CLINICAL TRIAL-gen omics 11/17/2008 09/01/2009 Overview: Renamed Per Clinical Trials Billing Project. Study Titile: Genomic Markers for Patients with Cardiovascular Disease Project #[id number] PI: Ricardo Yang MD Please call [phone] with study related questions INTERFACED RESULT 11/17/2008 10/17/2011 GENOMICS CARDIO RESEARCH OTHER*[id number] 200806/25/2016 Overview: Renamed Per Clinical Trials Billing Project. Study Titile: Genomic Markers for Patients with Cardiovascular Disease Project #[id number] PI: Ricardo Yang MD Please call [phone] with study related questions CLASS I-II ANGINA [...] Answered Comments:quit 30 yrs ago, while in [employer] for 4 years Alcohol Use Standard Drinks/Week [...] Sign Reading Time Taken Comments Blood Pressure 130/64 12/02/2022 1:49 PM EDT Pulse 74 12/02/2022 1:49 PM EDT Temperature 36.4 C (97.6 F) 12/02/2022 1:49 PM ED T Respiratory Rate 16 12/02/2022 1:49 PM EDT Oxygen Saturation 96% 12/02/2022 1:49 PM EDT Inhaled Oxygen Concentration - - Weight 65.8 kg (145 lb) 12/02/2022 1:49 PM EDT Height - - Body Mass Index 20.22 10/25/2022 10:44 AM EDT documented in this encounter Progress Notes * Kierra Santoyo, - 12/02/2022 1:59 PM EDT Subjective: Dirk Garcia is a 87 year old male. Chief Complaint Patient presents with Hospital Follow-Up Pt being seen for hospital f/u apt, his meds have changed as well. There are no exam notes on file for this visit. HPI: This is a 87 year old male with PMHx as below presents with hospital follow up Admitted 11/28 - discharged 11/30 gen weakness, recurrent falls, UTI, chronic hyponatremia Treated for UTI - d.c to home with cefdinir Needs repeat labs today - cbc, cmp, mag, phos Will restart PT I advised /pt about referral to neurology - they declined at this time for ? Foot drop, muscle wasting of LE Health Maintenance Due Topic Date Due DXA Scan Never done Zoster Vaccines (1 of 2) Never done COVID-19 Vaccine (3 - Pfizer series) 09/20/2020 COLONOSCOPY-EVERY 5 YRS AGES 18-100 03/20/2021 CKD PHOS USE SMARTSET 38506 09/15/2021 Depression Screening, Annual for Pts 12 and [...] A1C to be determined ([facility]) E11.9 HTN, goal below 140/90 I10 History of colon polyps Z86.010 Stable angina ([facility]) I20.8 Hypertensive kidney disease with stage 3b chronic kidney disease I12.9, N18.32 Type 2 diabetes mellitus with stage 3b chronic kidney disease ([facility]CC) E11.22, N18.32 Chronic kidney disease, stage 3b (HCC) N18.32 Hx of melanoma of skin Z85.820 Type 2 diabetes mellitus with stage 3b chronic kidney disease, with long- term current use of insulin (HCC) E11.22, N18.32, Z79.4 Enlarged aorta ([facility]) I77.89 Unstable angina ([facility]) I20.0 Current Outpatient Medications Medication Sig Dispense Refill Lantus SoloStar 100 UNIT/ML Subcutaneous Solution Pen-injector (Insulin Glargine Solostar) INJECT 22 UNITS SUBCUTANEOUSLY (UNDER THE SKIN) IN THE MORNING OR DIRECTED (Patient taking differently: Inject 25 Units under the skin every evening.) 15 mL 3 metFORMIN HCl ER 500 MG Oral Tablet Extended Release 24 Hour (Glucophage XR) TAKE 3 TABLETS BY MOUTH EVERY DAY WITH FOOD (Patient taking differently: TAKE 1 TABLET BY MOUTH IN THE MORNING AND 2 TABLETS IN THE EVENING WITH FOOD) 270 Tablet 1 BD Pen Needle Emperatriz 2nd Gen 32G X 4 MM (Insulin Pen Needle) USE WITH INSULIN PEN EVERY DAY 100 Each 1 Amiodarone HCl 200 MG Oral Tablet (Cordarone) TAPER DIRECTED TAKE 1 TABLET BY MOUTH TWO TIMES DAILY FOR 7 DAYS THEN TAKE TAKE 1 TABLET BY MOUTH EVERY DAY Cefdinir 300 MG Oral Capsule (Omnicef) Take 1 Capsule by mouth in the morning and 1 Capsule before bedtime. aspirin 81 MG chewable tablet Take 1 Tablet by mouth in the morning. (Patient not taking: Reported on 12/02/2022) 34 Tab 11 nitroglycerin (NITROSTAT) 0.4 MG SUBL DISSOLVE 1 TABLET UNDER THE TONGUE EVERY 5 MINUTES FOR CHEST PAIN. UP TO 3 DOSES IN 15 MINUTES. (Patient not taking: Reported on 12/02/2022) 25 Tab 1 Isosorbide Mononitrate ER 120 MG Oral Tablet Extended Release 24 Hour (Imdur) TAKE 1 TABLET BY MOUTH EVERY MORNING (Patient not taking: Reported on 12/02/2022) 90 Tablet 1 Clopidogrel Bisulfate 75 MG Oral Tablet (pLAVix) TAKE 1 TABLET BY MOUTH EVERY DAY (Patient not taking: Reported on 12/02/2022) 100 Tablet 1 Ranolazine ER 1000 MG Oral Tablet Extended Release 12 Hour TAKE 1 TABLET TWICE A DAY (Patient not taking: Reported on 12/02/2022) 180 Tablet 3 Rosuvastatin Calcium 20 MG Oral Tablet (Crestor) TAKE 1 TABLET IN THE MORNING (Patient not taking: Reported on 12/02/2022) 90 Tablet 2 No current facility-administered medications for this visit. Past Medical History: Diagnosis Date Aortocoronary bypass status 12/06/2008 Benign neoplasm of colon 01/18 Chronic coronary artery disease 11/17/2008 Coronary atherosclerosis of [place] coronary artery DM type 2, goal A1c below 7 DM type 2, goal A1C to be determined (HCC) Dyslipidemia, goal LDL below 160 Dyslipidemia, goal LDL below 70 05/01/2009 Per Lipid Taxonomy. Enlarged aorta (HCC) 09/15/2009 Aortic root 4.4 cm 4.29.2010 echo at [facility]. HTN, goal below 130/80 06/14/2009 Per HTN Taxonomy. HTN, goal below 140/90 S/P angioplasty with stent drug eluting 09/15/09 Plavix x 12m Past Surgical History: Procedure Laterality Date CABG, ARTERIAL, SINGLE 11/25/08 CORONARY ARTERY BYPASS GRAFT USING ARTERY 1 GRAFT [place]IMILIANO CASILLAS [place] [facility] [place]G, ARTERY-VEIN, TWO 11/25/08 CORONARY ARTERY BYPASS GRAFT ARTERIAL AND VENOUS 2 GRAFTS performed by MAXIMILIANO CASILLAS at [facility] CATHETERIZE LEFT HEART THRU SKIN Cardiac Catheterization, Left Heart CATHETERIZE LEFT HEART THRU SKIN 11/17/08 LEFT HEART CATH, PERCUTANEOUS performed [place] DRAKE MALONE [place] [facility] [place] LEFT HEART THRU SKIN 09/15/09 LEFT HEART CATH, PERCUTANEOUS performed [place] RICARDO YANG [place] [facility] COLONOSCOPY THRU STOMA, W/BIOPSY jan 2002 adenomatous and hyperplastic polyps, next in jan 2005 CORONARY ANGIOGRAPHY W/LEFT HEART CATH 11/25/2011 CORONARY ANGIOGRAPHY W/LEFT HEART CATH performed by Jermaine Leary DO at [facility] [place] DESTRUCTION PREMALIGNANT LESION 1ST about 2001 facial lesion. ENDO,VIDEO ASSIST HARVEST WALE 11/25/08 ENDOSCOPY VIDEO ASSISTED HARVEST VEIN performed by MAXIMILIANO CASILLAS at [facility] REMOVAL OF APPENDIX age 21 Review of patient's allergies indicates: No Known Allergies Family History Problem Relation Age of Onset Stroke Mother age 45, Heart Disorder Father old age, age 83 Neurological Disorder Father Alzheimer Family Status Relation Status Mo at age 38 cva Fa at age 81 alzheimer's, [place] Roberto Alive healthy Son Alive healthy Bro at child Social History Socioeconomic History Marital status: Spouse name: Not on file Number of children: 2 Years of education: Not on file Highest education level: Not on file Occupational History 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 Wt Readings from Last 3 Encounters: 12/02/22 65.8 kg (145 lb) 11/25/22 68 kg (150 lb) 10/25/22 68.3 kg (150 lb 9.6 oz) Results for orders placed or performed in visit on 11/25/22 COMPREHENSIVE METABOLIC PANEL Result Value Ref Range BUN 35 (H) 6 - 20 mg/dL Creatinine 1.5 (H) 0.6 - 1.2 mg/dL Estimated Glomerular Filtration Rate 44 (L) >=60 mL/min Sodium 134 (L) 135 - 146 mmol/L Potassium 4.6 3.5 - 5.1 mmol/L Chloride 94 (L) 98 - 107 mmol/L CO2 26 22 - 32 mmol/L Anion Gap 14 7 - 15 mmol/L Glucose 216 (H) 70 - 120 mg/dL Albumin 4.0 3.8 - 5.0 g/dL AST 39 10 - 50 U/L Alkaline Phosphatase 65 35 - 130 U/L Bilirubin, Total 0.5 <=1.2 mg/dL Calcium 9.9 8.4 - 10.2 mg/dL Protein 7.1 6.0 - 8.3 g/dL ALT 37 10 - 50 U/L HEMOGLOBIN A1C Result Value Ref Range Hemoglobin A1C 8.1 (H) 4.0 - 5.6 % Estimated Average Glucose 186 (H) <126 mg/dL 25-HYDROXY VITAMIN D Result Value Ref Range 25-Hydroxy Vitamin D 38 >19 ng/mL VITAMIN B12 Result Value Ref Range Vitamin B12 497 232 - 1,245 pg/mL CBC Result Value Ref Range WBC 7.81 4.00 - 10.80 K/uL RBC 3.62 4.50 - 5.25 M/uL HGB 11.6 (L) 14.0 - 16.8 g/dL HCT 34.1 (L) 40.0 - 48.4 % MCV 94.2 82.0 - 99.5 fL MCH 32.0 27.0 - 34.0 pg MCHC 34.0 32.0 - 36.0 g/dL RDW 13.3 11.5 - 15.5 % PLT 192 140 - 400 K/uL MPV 9.1 6.6 - 11.1 fL DIFFERENTIAL, AUTOMATED Result Value Ref Range WBC 7.81 4.00 - 10.80 K/uL Neutrophils % 69.8 40.0 - 75.0 % Lymphocytes % 19.3 18.0 - 42.0 % Monocytes % 10.2 1.0 - 11.0 % Eosinophils % 0.6 0.0 - 6.0 % Basophils % 0.1 0.0 - 2.0 % Absolute Neutrophils 5.44 1.80 - 7.70 K/uL Absolute Lymphocytes 1.51 1.00 - 4.80 K/ul Absolute Monocytes 0.80 0.00 - 1.10 K/uL Absolute Eosinophils 0.05 0.00 - 0.70 K/uL Absolute Basophils 0.01 0.00 - 0.20 K/uL IRON SCREEN, INCLUDING TIBC Result Value Ref Range Iron 41 (L) 45 - 176 ug/dL Iron Binding Capacity 317 250 - 425 ug/dL Transferrin Saturation Percent 13 (L) 15 - 55 % OBJECTIVE: Physical Exam: BP 130/64 | Pulse 74 | Temp 36.4 C (97.6 F) (Tympanic) | Resp 16 | Wt 65.8 kg (145 lb) | SpO2 96% | BMI 20.22 kg/m | BSA 1.82 m General: alert, healthy and no distress Extremities: bilateral LE weakness, abnormal gait noted most R side Complicated UTI (urinary tract infection) (Primary) - CBC WITH WBC DIFFERENTIAL; Future; Expected date: 12/02/2022 - COMPREHENSIVE METABOLIC PANEL; Future; Expected date: 12/02/2022 - MAGNESIUM; Future; Expected date: 12/02/2022 - PHOSPHORUS; Future; Expected date: 12/02/2022 - CULTURE, URINE, QUANTITATIVE Generalized weakness - CBC WITH WBC DIFFERENTIAL; Future; Expected date: 12/02/2022 - COMPREHENSIVE METABOLIC PANEL; Future; Expected date: 12/02/2022 - MAGNESIUM; Future; Expected date: 12/02/2022 - PHOSPHORUS; Future; Expected date: 12/02/2022 - CULTURE, URINE, QUANTITATIVE - PHYSICAL THERAPY REFERRAL OP - CK; Future; Expected date: 12/02/2022 - XR L SPINE AP AND LATERAL Hospital discharge follow-up - CBC WITH WBC DIFFERENTIAL; Future; Expected date: 12/02/2022 - COMPREHENSIVE METABOLIC PANEL; Future; Expected date: 12/02/2022 - MAGNESIUM; Future; Expected date: 12/02/2022 - PHOSPHORUS; Future; Expected date: 12/02/2022 - CULTURE, URINE, QUANTITATIVE Recurrent falls - PHYSICAL THERAPY REFERRAL OP - CK; Future; Expected date: 12/02/2022 - XR L SPINE AP AND LATERAL will follow up with /pt on Friday - advise on seeing neurology again, follow up with labs, images. May need EMG/ MRI L Spine. Kierra Santoyo DO documented in this encounter Plan of Treatment Upcoming Encounters Date Type Specialty Care Team Description 12/02/2022 Laboratory Laboratory [facility] [address] [place] [address] [employer] Other*[id number]; Complicated UTI (urinary tract infection); Generalized weakness; Hospital discharge follow-up; Recurrent falls 12/23/2022 Office Visit Pharmacy [facility] [address] [place] [address] 02/12/2023 Office Visit Family Medicine Carola Arrington MD [address] [place] [address] 08/14/2023 Office Visit Dermatology Lyssa Gar MD [address] [place] [address] Pending Results Name Type Priority Associated Diagnoses Date /Time XR L SPINE AP AND LATERAL Medical Imaging Routine Generalized weakness Recurrent falls 12/02/2022 2:36 PM EDT Scheduled Orders Name Type Priority Associated Diagnoses Orde r Schedule CBC WITH WBC DIFFERENTIAL Lab Routine Complicated UTI (urinary tract infection) Generalized weakness Hospital discharge follow-up Expected: 12/02/2022 (Approximate), Expires: 12/03/2023 COMPREHENSIVE METABOLIC PANEL Lab Routine Complicated UTI (urinary tract infection) Generalized weakness Hospital discharge follow-up Expected: 12/02/2022 (Approximate), Expires: 12/02/2023 MAGNESIUM Lab Routine Complicated UTI (urinary tract infection) Generalized weakness Hospital discharge follow-up Expected: 12/02/2022 (Approximate), Expires: 12/02/2023 PHOSPHORUS Lab Routine Complicated UTI (urinary tract infection) Generalized weakness Hospital discharge follow-up Expected: 12/02/2022 (Approximate), Expires: 12/02/2023 CULTURE, URINE, QUANTITATIVE Lab Routine Complicated UTI (urinary tract infection) Generalized weakness Hospital discharge follow-up Ordered: 12/02/2022 CK Lab Routine Generalized weakness Recurrent falls Expected: 12/02/2022 (Approximate), Expires: 12/02/2023 Scheduled Referrals Name Type Priority Associated Diagnoses Orde r Schedule PHYSICAL THERAPY REFERRAL OP Referral Within 10 days (routine) Generalized weakness Recurrent falls Ordered: 12/02/2022 Health Maintenance Due Date Last Done Comments DXA Scan 1936 Zoster Vaccines (1 of 2) 1986 COVID-19 Vaccine (3 - Pfizer series) 09/20/2020 07/26/2020, 07/05/2020 COLONOSCOPY-EVERY 5 YRS AGES 18-100 03/20/2021 03/20/2016, 04/30/2010, 02/05/2002 CKD PHOS USE SMARTSET 01334 09/15/2021 04/3 , 04/18/2020, 04/27/2019, Additional history [...] Additional history exists CKD HGB USE SMARTSET 82395 11/26/202311/25, 11/25/2022, 09/30/2022, Additional history exists Pneumococcal Vaccine: 65+ Years [...] as of this encounter Visit Diagnoses Diagnosis Complicated UTI (urinary tract infection)- Primary Urinary tract infection, site not specified Generalized weakness Other malaise and fatigue Hospital discharge follow-up Other follow-up examination Recurrent falls Personal history of fall [employer] Other*[id number] Complicated UTI (urinary tract infection) Urinary tract [...] the patient have Health Care Power of Nutrition Educator? Yes, not currently available Code Status History Code Status Date Activated Date Inactivated Comments Full Code 09/15/2009 2:06 PM 09/16/2009 8:49 PM This o rder reflects the patients wishes and were consensually agreed upon. Question Answer Comments Discussion of Advance Directives occurred with: Patient/Family Does the patient have a Living Will? No Does the patient have Health Care Power of Nutrition Educator? No Full Code 11/25/2008 1:50 PM 11/29/2008 9:11 PM This order reflects the patients wishes and were consensually agreed upon. Question Answer Comments Discussion of Advance Directives occurred with: Patient Care Teams Sales Negotiator Relationship Specialty Start Date End Date Carola Arrington MD [address] [place] [address] PCP - General Internal Medicine 12/19/20 documented as of this encounter"
--- OUTSIDE RECORDS SUMMARY | 2023-02-21 02:34 | External Medical Summary | Summary of Care ---
Author Name Unknown Organization [facility] Address [address] [place] [address] Phone [phone] Care Team Providers Care Medical Manager Name Role Phone Gerry Arrington MD Primary Care Provider Reason for Visit * Reason Onset Date Comments Medication Refill 12/06/2022 Encounter Details Date Type Department Care Team Description 12/06/2022 Refill Family Practice [facility] [address] [place] [address] Gerry Arrington MD [address] [place] [facility] [place] [address] Paroxysmal A-fib ([facility])* Allergies No known active allergiesdocumented as of [...] type 2, goal A1C to be determined ([facility]),Type 2 diabetes mellitus with stage 3b chronic kidney disease, without long-term current use of insulin ([facility]) INJECT 22 UNITS SUBCUTANEOUSLY (UNDER THE SKIN) IN THE MORNING OR DIRECTED 15 mL 3 04/16/20 22 Active Additional Information Patient taking differently: 25 Units Subcutaneous [id number], Reported on 09/30/2022 metFORMIN HCl ER 500 MG Oral Tablet Extended Release 24 Hour (Glucophage XR)Indications:D M type 2, goal A1C to be determined ([facility]) TAKE 3 TABLETS BY MOUTH EVERY DAY WITH FOOD 270 Tablet 1 07/04/19 23 Active Additional Information Patient taking differently: TAKE 1 TABLET BY MOUTH IN THE MORNING AND 2 TABLETS IN THE EVENING WITH FOOD, Reported on 09/30/2022 Clopidogrel Bisulfate 75 MG Oral Tablet (pLAVix)Indicati ons:Aortocoronar y bypass status,Acute coronary syndrome ([facility]),Chronic coronary artery disease,Enlarged aorta ([facility]) TAKE 1 TABLET BY MOUTH EVERY DAY 100 Tablet 1 07/25/19 23 Active Additional Information Patient not taking.Reported on 12/02/2022 BD Pen Needle Emperatriz 2nd Gen 32G X 4 MM (Insulin Pen Needle)Indicatio ns:Type 2 diabetes mellitus with stage 3b chronic kidney disease, without long-term current use of insulin ([facility]),DM type 2, goal A1C to be determined ([facility]) USE WITH INSULIN PEN EVERY DAY 100 Each 1 07/25/19 23 Active Ranolazine ER 1000 MG Oral Tablet Extended Release 12 HourIndications: Chest pain,Unstable angina ([facility]) TAKE 1 TABLET TWICE A DAY 180 Tablet 3 08/28/19 23 Active Additional Information Patient not taking.Reported on 12/02/2022 Rosuvastatin Calcium 20 MG Oral Tablet (Crestor)Indicat ions:Dyslipidemi a, goal LDL below 70,Dyslipidemia, goal LDL below 160,Mixed dyslipidemia TAKE 1 TABLET IN THE MORNING 90 Tablet 2 11/13/19 23 Active Additional Information Patient not taking.Reported on 12/02/2022 Cefdinir 300 MG Oral Capsule (Omnicef) Take 1 Capsule by mouth in the morning and 1 Capsule before bedtime. 0 12/01/19 23 Active Amiodarone HCl 200 MG Oral Tablet (Cordarone)Indic ations:Paroxysma l A-fib ([facility]) Take 1 Tablet by mouth daily. 30 Tablet 5 12/07/19 23 Active Isosorbide Mononitrate ER 120 MG Oral Tablet Extended Release 24 Hour (Imdur) TAKE 1 TABLET BY MOUTH EVERY MORNING 90 Tablet 1 06/14/19 23 023 Discontinued Amiodarone HCl 200 MG Oral Tablet (Cordarone) TAPER DIRECTED TAKE 1 TABLET BY MOUTH TWO TIMES DAILY FOR 7 DAYS THEN TAKE TAKE 1 TABLET BY MOUTH EVERY DAY 0 09/28/19 23 023 Discontinued(Re fill) documented as of this encounter (statuses as [...] with wider margins) Staging: Stage 0 - [id number] - Melanoma in situ Type 2 diabetes [...] S/P angioplasty with stent Overview: drug eluting 4/30/10 Plavix x 12m DM type 2, goal [...] Aortic root 4.4 cm 4.29.2009 echo at [facility]. HTN, goal below 130/80 06/14/2009 [...] Markers for Patients with Cardiovascular Disease Project #[id number] PI: Francoise Tomlin MD Please call [phone] with study related questions INTERFACED RESULT 11/17/2008 10/17/2011 GENOMICS CARDIO RESEARCH OTHER*[id number] 200806/25/2016 Overview: Renamed Per Clinical Trials Billing Project. Study Titile: Genomic Markers for Patients with Cardiovascular Disease Project #[id number] PI: Francoise Tomlin MD Please call [phone] with study related questions CLASS I-II ANGINA [...] Comments:quit 30 yrs ago, wh ile in [employer] for 4 years Alcohol Use Standard Drinks/Week [...] encounter Miscellaneous Notes * Telephone Encounter - Gerry Arrington MD - 12/06/2022 2:02 PM EDT Signed Prescriptions: Disp Refills Amiodarone HCl 200 MG Oral Tablet (Cordaro*30 Tab*5 Sig: Take 1 Tablet by mouth daily. Authorizing Provider: GERRY ARRINGTON * Telephone Encounter - Gerry Arrington MD - 12/06/2022 2:01 PM EDT Amiodarone appears to have been started the spring during the hospitalization for a fib with RVR. Has a cardiology follow up in December. Prescription updated to show maintenance dose. * Telephone Encounter - Chari Ge LPN - 12/06/2022 9:25 AM EDTPending Prescriptions: Disp Refills Amiodarone HCl 200 MG Oral Tablet (Cordaro* Sig: TAPER DIRECTED TAKE 1 TABLET BY MOUTH TWO TIMES DAILY FOR 7 DAYS THEN TAKE TAKE 1 TABLET BY MOUTH EVERY DAY * Telephone Encounter - Valorie Tim - 12/06/2022 9:13 AM EDT Did you pend patient's preferred pharmacy and medication before forwarding?yes Pharmacy: [id number] [place] Pending Prescriptions: Disp Refills Amiodarone HCl 200 MG Oral Tablet (Cordar* Sig: TAPER DIRECTED TAKE 1 TABLET BY MOUTH TWO TIMES DAILY FOR 7 DAYS THEN TAKE TAKE 1 TABLET BY MOUTH EVERY DAY Last Visit: 12/02/2022 (in office), Visit date not found (telemedicine) Next Visit: 02/12/2023 If no future appointments scheduled, and last appointment is greater than a year ago, please schedule patient for a follow-up appointment Last date the medication was ordered: 09.27.22 Is this request for a controlled substance?No Urine Drug Screen:No results found for this or any previous visit. Patient Phone Numbers Labs: Lab Results Component Value Date/Time CREAT 1.3 (H) 12/02/2022 02:50 PM CREAT 1.29 09/27/2022 12:00 AM CREAT 1.9 (H) 04/18/2020 08:29 AM POTASSIUM 5.1 12/02/2022 02:50 PM POTASSIUM 4.4 09/27/2022 12:00 AM POTASSIUM 5.0 04/18/2020 08:29 AM TSH 3.046 09/23/2022 12:00 AM TSH 2.81 01/01/2017 01:44 PM LDLCALC 30 10/27/2019 09:03 AM LDLDIRECT 52 09/15/2020 10:32 AM LDLDIRECT NOT APPLICABLE 10/27/2019 09:03 AM LDLDIRECT 50 10/24/2016 11:50 AM ALT 50 12/02/2022 02:50 PM ALT 23 04/18/2020 08:29 AM HGBA1C 8.1 (H) 11/25/2022 02:28 PM HGBA1C 9.7 (H) 04/18/2020 08:29 AM documented in this encounter Plan of Treatment Upcoming Encounters Date Type Specialty Care Team Description 12/23/2022 Office Visit Pharmacy [facility] [address] [place] [address] 12/23/2022 Office Visit Cardiology Cesar Elias PA-C [address] [place] [address] 12/28/2022 Imaging Radiology 02/12/2023 Office Visit Family Medicine Gerry Arrington MD [address] [place] [address] 08/14/2023 Office Visit Dermatology Lyssa Gar MD [address] [facility], [place] [address] Health Maintenance Due Date Last Done Comments [...] Additional history exists CKD HGB USE SMARTSET 98802 12/03/202312/02, 12/02/2022, 11/25/2022, Additional history exists CKD PHOS USE SMARTSET 11342 12/03/202311/16, 09/15/2020, 04/18/2020, Additional history exists Pneumococcal [...] as of this encounter Visit Diagnoses Diagnosis Paroxysmal A-fib (HCC)- Primary Atrial fibrillation documented in this encounter Advance Directives Latest [...] the patient have Health Care Power of Heat Treating Furnace Tender? Yes, not currently available Code Status History Code Status Date Activated Date Inactivated Comments Full Code 09/15/2009 2:06 PM 09/16/2009 8:49 PM This o rder reflects the patients wishes and were consensually agreed upon. Question Answer Comments Discussion of Advance Directives occurred with: Patient/Family Does the patient have a Living Will? No Does the patient have Health Care Power of Heat Treating Furnace Tender? No Full Code 11/25/2008 1:50 PM 11/29/2008 9:11 PM This order reflects the patients wishes and were consensually agreed upon. Question Answer Comments Discussion of Advance Directives occurred with: Patient Care Teams Medical Manager Relationship Specialty Start Date End Date Gerry Arrington MD [address] [place] [address] PCP - General Internal Medicine 12/19/20 documented as of this encounter
--- OUTSIDE RECORDS SUMMARY | 2023-02-21 02:34 | External Medical Summary | Summary of Care ---
Author Name Unknown Organization [facility] Address [address] [place] [address] Phone [phone] Care Team Providers Care Pipeline Controller Name Role Phone Carola Arrington MD Primary Care Provider Reason for Visit * Reason Comments Outpatient Testing Encounter Details Date Type Department Care Team Description 12/23/2022 Laboratory Laboratory, [facility] [address] [place] [address] [facility] [address] [place] [address] Encounter for monitoring amiodarone therapy; PAF (paroxysmal atrial fibrillation) ([facility]); Dyslipidemia, goal LDL below 70 Allergies No known active allergiesdocumented as of [...] Information Patient taking differently: 25 Units Subcutaneous [id number], Reported on 09/30/2022 metFORMIN HCl ER 500 MG Oral Tablet Extended Release 24 Hour (Glucophage XR)Indications:DM type 2, goal A1C to be determined ([facility]) TAKE 3 TABLETS BY MOUTH EVERY DAY WITH FOOD 270 Tablet 1 07/04/2022 Active Additional Information Patient taking differently: TAKE 2 TABLET BY MOUTH IN THE MORNING AND 1 TABLETS IN THE EVENING WITH FOOD, Reported on 12/23/2022 Clopidogrel Bisulfate 75 MG Oral Tablet (pLAVix)Indication s:Aortocoronary bypass status,Acute coronary syndrome ([facility]),Chronic coronary artery disease,Enlarged aorta (HCC) TAKE 1 TABLET BY MOUTH EVERY DAY 100 Tablet 1 07/24/2022 Active BD Pen Needle Emperatriz 2nd Gen 32G X 4 MM (Insulin Pen Needle)Indications :Type 2 diabetes mellitus with stage 3b chronic kidney disease, without long-term current use of insulin (HCC),DM type 2, goal A1C to be determined ([facility]) USE WITH INSULIN PEN EVERY DAY 100 Each 1 07/24/2022 Active Amiodarone HCl 200 MG Oral Tablet (Cordarone)Indicat ions:Paroxysmal A-fib (HCC) Take 1 Tablet by mouth [...] with wider margins) Staging: Stage 0 - [id number] - Melanoma in situ Type 2 diabetes [...] root 4.4 cm 4.29.2009 echo at [facility]. HTN, goal below 130/80 06/14/2009 2 Overview: Per HTN Taxonomy. Type 2 diabetes mellitus wit h hemoglobin A1c goal of less than 7.0% 03/02/2009 03/27/2011 Overview: Modified per Diabetes protocol #14. ICD-10 update of inactive term EXAMINATION OF PARTICIPANT IN CLINICAL TRIAL-gen omics 11/17/2008 09/01/2009 Overview: Renamed Per Clinical Trials Billing Project. Study Titile: Genomic Markers for Patients with Cardiovascular Disease Project #[id number] PI: Francoise Tolmin MD Please call [phone] with study related questions INTERFACED RESULT 11/17/2008 10/17/2011 GENOMICS CARDIO RESEARCH OTHER*[id number] 200806/25/2016 Overview: Renamed Per Clinical Trials Billing Project. Study Titile: Genomic Markers for Patients with Cardiovascular Disease Project #[id number] PI: Francoise Tomlin MD Please call [phone] with study related questions CLASS I-II ANGINA [...] Comments:quit 30 yrs ago, wh ile in [employer] for 4 years Alcohol Use Standard Drinks/Week [...] Carola Arrington MD [address] [place] [address] 03/17/2023 Office Visit [facility] [address] [place] [address] 08/14/2023 Office Visit Dermatology Lyssa Gar MD [address] [place], [place] [address] [address] Pending Results Name Type Priority Associated Diagnoses Date /Time TSH WITH FREE T4 IF INDICATED Lab Routine Encounter for monitoring amiodarone therapy PAF (paroxysmal atrial fibrillation) (HCC) 12/23/2022 4:01 PM EDT LDL CHOLESTEROL (DIRECT MEASURE) Lab Routine Dyslipidemia, goal LDL below 70 12/23/2022 4:01 PM EDT Health Maintenance Due Date Last [...] Additional history exists CKD HGB USE SMARTSET 04362 12/03/202312/02, 12/02/2022, 11/25/2022, Additional history exists CKD PHOS USE SMARTSET 82798 12/03/202311/16, 09/15/2020, 04/18/2020, Additional history exists Pneumococcal [...] as of this encounter Visit Diagnoses Diagnosis Encounter for monitoring amiodarone therapy Encounter for therapeutic drug monitoring PAF (paroxysmal atrial fibrillation) (HCC) Atrial fibrillation Dyslipidemia, goal LDL below 70 Other and unspecified hyperlipidemia documented in this encounter Advance Directives Latest [...] the patient have Health Care Power of Insurance Compliance Analyst? Yes, not currently available Code Status History Code Status Date Activated Date Inactivated Comments Full Code 09/15/2009 2:06 PM 09/16/2009 8:49 PM This o rder reflects the patients wishes and were consensually agreed upon. Question Answer Comments Discussion of Advance Directives occurred with: Patient/Family Does the patient have a Living Will? No Does the patient have Health Care Power of Insurance Compliance Analyst? No Full Code 11/25/2008 1:50 PM 11/29/2008 9:11 PM This order reflects the patients wishes and were consensually agreed upon. Question Answer Comments Discussion of Advance Directives occurred with: Patient Care Teams Pipeline Controller Relationship Specialty Start Date End Date Carola Arrington MD [address] [place] [address] PCP - General Internal Medicine 12/19/20 documented as of this encounter
--- OUTSIDE RECORDS SUMMARY | 2023-02-21 02:34 | External Medical Summary ---
Author Name Unknown Address Unknown Organization K01:[facility] [place] [address] [place] [address] Laboratory Report Ordering Provider Test Date Status NATE WILLARD 12/23/2022 16:01:12 Final Observation Date Value Abnormality Reference (Units ) Status TSH 12/23/2022 16:01:12 5.38 Above high normal 0. 27-4.20 (uIU/mL) Final Performing Location [facility] [place] [address] [place] [address]
--- OUTSIDE RECORDS SUMMARY | 2023-02-21 02:35 | External Medical Summary ---
Author Name Unknown Address Unknown Organization K01:[facility] [place] - [address] [place] [address] Laboratory Report Ordering Provider Test Date Status RONALD EVANS 12/02/2022 14:50:19 Final Observation Date Value Abnormality Reference (Units) Status Bacteria identified in Unspecified specimen by Culture 12/02/2022 14:50:19 No significant growth Final Performing Location [facility] [place] - [address] [place] [address]
--- OUTSIDE RECORDS SUMMARY | 2023-02-21 02:35 | External Medical Summary | Summary of Care ---
Author Name Unknown Organization [facility] Address [address] [place] [address] Phone [phone] Care Team Providers Care Med Surg Nurse Name Role Phone Carola Arrington MD Primary Care Provider Reason for Referral * Precert (Within 10 days (routine)) - Pending Review Specialty Diagnoses / Procedures Referred By Silas alonzo Referred To Contact Radiology Diagnoses History of bacterial pneumonia Chronic cough Procedures CT CHEST WO CONTRAST Kierra Fox DO [address] [place] [address] Referral ID Status Reason Start Date Expiration Date V isits Requested Visits Authorized [id number] Pending Review 11/27/2022 999 999 Reason for Visit * Reason Onset Date Comments Test Results 11/25/2022 Encounter Details Date Type Department Care Team Description 11/25/2022 Telephone Family Practice [facility] [address] [place] [address] Kierra Fox DO [address] [place] [address] Test Results (/) Allergies No known active allergiesdocumented as of this encounter (statuses as of 11/27/2022) Medications Medication Sig Dispensed Refills Start Date End Date Status aspirin 81 MG chewable tablet Take 1 Tablet by mouth in the morning. 34 Tab 11 10/28/2017 Active nitroglycerin (NITROSTAT) 0.4 MG SUBLIndications:Ch ronic coronary artery disease DISSOLVE 1 TABLET UNDER THE TONGUE EVERY 5 MINUTES FOR CHEST PAIN. UP TO 3 DOSES IN 15 MINUTES. 25 Tab 1 11/17/2018 Active Lantus SoloStar 100 UNIT/ML Subcutaneous Solution Pen-injector (Insulin Glargine Solostar)Indicatio ns:DM type 2, goal A1C to be determined ([facility]),Type 2 diabetes mellitus with stage 3b chronic kidney disease, without long-term current use of insulin ([facility]) INJECT 22 UNITS SUBCUTANEOUSLY (UNDER THE SKIN) IN THE MORNING OR DIRECTED 15 mL 3 04/16/2022 Active Additional Information Patient taking differently: 25 Units Subcutaneous [id number], Reported on 09/30/2022 Isosorbide Mononitrate ER 120 MG Oral Tablet Extended Release 24 Hour (Imdur) TAKE 1 TABLET BY MOUTH EVERY MORNING 90 Tablet 1 06/14/2022 Active metFORMIN HCl ER 500 MG Oral Tablet Extended Release 24 Hour (Glucophage XR)Indications:DM type 2, goal A1C to be determined ([facility]) TAKE 3 TABLETS BY MOUTH EVERY DAY WITH FOOD 270 Tablet 1 07/04/2022 Active Additional Information Patient taking differently: TAKE 1 TABLET BY MOUTH IN THE MORNING AND 2 TABLETS IN THE EVENING WITH FOOD, Reported on 09/30/2022 Clopidogrel Bisulfate 75 MG Oral Tablet (pLAVix)Indication s:Aortocoronary bypass status,Acute coronary syndrome (HCC),Chronic coronary artery disease,Enlarged aorta ([facility]) TAKE 1 TABLET BY MOUTH EVERY DAY 100 Tablet 1 07/24/2022 Active BD Pen Needle Emperatriz 2nd Gen 32G X 4 MM (Insulin Pen Needle)Indications :Type 2 diabetes mellitus with stage 3b chronic kidney disease, without long-term current use of insulin ([facility]),DM type 2, goal A1C to be determined ([facility]) USE WITH INSULIN PEN EVERY DAY 100 Each 1 07/24/2022 Active Ranolazine ER 1000 MG Oral Tablet Extended Release 12 HourIndications:Ch est pain,Unstable angina ([facility]) TAKE 1 TABLET TWICE A DAY 180 Tablet 3 08/27/2022 Active Amiodarone HCl 200 MG Oral Tablet (Cordarone) TAPER DIRECTED TAKE 1 TABLET BY MOUTH TWO TIMES DAILY FOR 7 DAYS THEN TAKE TAKE 1 TABLET BY MOUTH EVERY DAY 0 09/27/2022 Active Rosuvastatin Calcium 20 MG Oral Tablet (Crestor)Indicatio ns:Dyslipidemia, goal LDL below 70,Dyslipidemia, goal LDL below 160,Mixed dyslipidemia TAKE 1 TABLET IN THE MORNING 90 Tablet 2 11/12/2022 Active documented as of this encounter (statuses as of 11/27/2022) Active Problems Problem Noted Date Unstable angina 10/25/2022 Type 2 diabetes mellitus wit h stage 3b chronic kidney disease, with long-term current use of insulin 08/09/2022 Enlarged aorta 08/09/2022 Hx of melanoma of skin 07/19/2021 Overview: Location: L upper back Year: 2016 Depth: MIS Treatment: WLE (positive margins on initial excision, then re-excised again with wider margins) Staging: Stage 0 - [id number] - Melanoma in situ Type 2 diabetes [...] as of this encounter (statuses as of 11/27/2022) Resolved Problems Problem Noted Date Resolved Date [...] root 4.4 cm 4.29.2009 echo at [facility]. HTN, goal below 130/80 06/14/2009 [...] Markers for Patients with Cardiovascular Disease Project #[id number] PI: Francoise Tomlin MD Please call [phone] with study related questions INTERFACED RESULT 11/17/2008 10/17/2011 GENOMICS CARDIO RESEARCH OTHER*[id number] 200806/25/2016 Overview: Renamed Per Clinical Trials Billing Project. Study Titile: Genomic Markers for Patients with Cardiovascular Disease Project #[id number] PI: Francoise Tomlin MD Please call [phone] with study related questions CLASS I-II ANGINA [...] as of this encounter (statuses as of 11/27/2022) Immunizations Name Administration Dates Next Due Pneumococcal [...] Comments:quit 30 yrs ago, wh ile in [employer] for 4 years Alcohol Use Standard Drinks/Week [...] encounter Miscellaneous Notes * Telephone Encounter - Bianca Ramírez - 11/27/2022 2:33 PM EDT appt scheduled with patient. * Telephone Encounter - Kierra Fox DO - 11/27/2022 11:17 AM EDT Please schedule * Telephone Encounter - Tahira Kaur LPN - 11/26/2022 1:22 PM EDT Called and pt aware of message and willing to have CT scan done, please place order. * Telephone Encounter - Kierra Fox DO - 11/25/2022 5:32 PM EDT Area note of possible minimal fluid or compressed lung tissue possible from not a full inhalation. Please see if agreeable to CT chest for better image Thank you documented in this encounter Plan of Treatment Upcoming Encounters Date Type Specialty Care Team Description 12/02/2022 Imaging Radiology 12/23/[address] [facility] [address] [place] [address] 02/12/2023 Office Visit Family Medicine Carola Arrington MD [address] [place] [address] 08/14/2023 Office Visit Dermatology Lyssa Gar MD [address] [place] [address] Scheduled Orders Name Type Priority Associated Diagnoses Orde r Schedule CT CHEST WO CONTRAST Medical Imaging Routine History of bacterial pneumonia Chronic cough Ordered: 11/27/2022 Health Maintenance Due Date Last Done Comments DXA Scan 1936 Zoster Vaccines (1 of 2) 1986 COVID-19 Vaccine (3 - Pfizer series) 09/20/2020 07/26/2020, 07/05/2020 COLONOSCOPY-EVERY 5 YRS AGES 18-100 03/20/2021 03/20/2016, 04/30/2010, 02/05/2002 CKD PHOS USE SMARTSET 92905 09/15/2021 04/3 , 04/18/2020, 04/27/2019, Additional history [...] Additional history exists CKD HGB USE SMARTSET 15631 11/26/202311/25, 11/25/2022, 09/30/2022, Additional history exists Pneumococcal [...] as of this encounter Visit Diagnoses Diagnosis History of bacterial pneumonia- Primary Personal history of pneumonia (recurrent) Chronic cough Cough documented in this encounter Advance Directives Latest [...] the patient have Health Care Power of Investigation Specialist? Yes, not currently available Code Status History Code Status Date Activated Date Inactivated Comments Full Code 09/15/2009 2:06 PM 09/16/2009 8:49 PM This o rder reflects the patients wishes and were consensually agreed upon. Question Answer Comments Discussion of Advance Directives occurred with: Patient/Family Does the patient have a Living Will? No Does the patient have Health Care Power of Investigation Specialist? No Full Code 11/25/2008 1:50 PM 11/29/2008 9:11 PM This order reflects the patients wishes and were consensually agreed upon. Question Answer Comments Discussion of Advance Directives occurred with: Patient Care Teams Med Surg Nurse Relationship Specialty Start Date End Date Carola Arrington MD [address] [place] [address] PCP - General Internal Medicine 12/19/20 documented as of this encounter
--- OUTSIDE RECORDS SUMMARY | 2023-02-21 02:35 | External Medical Summary | Summary of Care ---
Author Name Unknown Organization [facility] Address [address] [place] [address] Phone [phone] Care Team Providers Care Air Pollution Control Engineer Name Role Phone Carola Arrington MD Primary Care Provider Encounter Details Date Type Department Care Team Description 11/25/2022 Orders Only Family Practice [facility] [address] [place] [address] Kierra Fox, [address] [place] [address] Anemia, unspecified type* Allergies No known active allergiesdocumented as of this encounter (statuses as of 11/25/2022) Medications Medication Sig Dispensed Refills Start Date [...] Information Patient taking differently: 25 Units Subcutaneous [id number], Reported on 09/30/2022 Isosorbide Mononitrate ER 120 MG Oral Tablet Extended Release 24 Hour (Imdur) TAKE 1 TABLET BY MOUTH EVERY MORNING 90 Tablet 1 06/14/2022 Active metFORMIN HCl ER 500 MG Oral Tablet Extended Release 24 Hour (Glucophage XR)Indications:DM type 2, goal A1C to be determined (HCC) TAKE 3 TABLETS BY MOUTH EVERY DAY [...] as of this encounter (statuses as of 11/25/2022) Active Problems Problem Noted Date Unstable angina 10/25/2022 Type 2 diabetes mellitus wit h stage 3b chronic kidney disease, with long-term current use of insulin 08/09/2022 Enlarged aorta 08/09/2022 Hx of melanoma of skin 07/19/2021 Overview: Location: L upper back Year: 2016 Depth: MIS Treatment: WLE (positive margins on initial excision, then re-excised again with wider margins) Staging: Stage 0 - [id number] - Melanoma in situ Type 2 diabetes [...] as of this encounter (statuses as of 11/25/2022) Resolved Problems Problem Noted Date Resolved Date [...] Aortic root 4.4 cm 4.29.2009 echo at [facility]. HTN, goal below 130/80 06/14/2009 2 Overview: Per HTN Taxonomy. Type 2 diabetes mellitus wit h hemoglobin A1c goal of less than 7.0% 03/02/2009 03/27/2011 Overview: Modified per Diabetes protocol #14. ICD-10 update of inactive term EXAMINATION OF PARTICIPANT IN CLINICAL TRIAL-gen omics 11/17/2008 09/01/2009 Overview: Renamed Per Clinical Trials Billing Project. Study Titile: Genomic Markers for Patients with Cardiovascular Disease Project #[id number] PI: Francoise Tomlin MD Please call [phone] with study related questions INTERFACED RESULT 11/17/2008 10/17/2011 GENOMICS CARDIO RESEARCH OTHER*[id number] 200806/25/2016 Overview: Renamed Per Clinical Trials Billing Project. Study Titile: Genomic Markers for Patients with Cardiovascular Disease Project #[id number] PI: Francoise Tomlin MD Please call [phone] with study related questions CLASS I-II ANGINA [...] as of this encounter (statuses as of 11/25/2022) Immunizations Name Administration Dates Next Due Pneumococcal [...] Comments:quit 30 yrs ago, wh ile in [place] for 4 years Alcohol Use Standard Drinks/Week [...] [facility] [address] [place] [address] 02/12/2023 Office Visit Family Medicine Carola Arrington MD [address] [place] [address] 08/14/2023 Office Visit Dermatology Lyssa Gar MD [address] [place] [phone] Scheduled Orders Name Type Priority Associated Diagnoses Orde r Schedule IRON SCREEN, INCLUDING TIBC Lab Routine Anemia, unspecified type Expected: 11/25/2022 (Approximate), Expires: 11/25/2023 Health Maintenance Due Date Last Done Comments DXA Scan 1935 B-12 1954 Zoster Vaccines (1 of 2) 1986 COVID-19 Vaccine (3 - Pfizer series) 09/20/2020 07/26/2020, 07/05/2020 COLONOSCOPY-EVERY 5 YRS AGES 18-100 03/20/2021 03/20/2016, 04/30/2010, 02/05/2002 CKD PHOS USE SMARTSET 21580 09/15/2021 04/3 , 04/18/2020, 04/27/2019, Additional history exists Depression Screening, Annual for Pts 12 and Over 10/26/2021 10/26/2020 DTaP,Tdap,and Td Vaccines (2 - Td or Tdap) 07/10/2022 07/10/2012 DIABETES-FOOT EXAM 08/08/2022 08/08/2021, 1 06/28/2019, 04/27/2019, Additional history exists HbA1c 01/07/2023 07/10/2022, 11/16, 08/08/2021, Additional history exists Influenza Vaccine (FLU shot) (#1) 2023 02/21/2020, 03/02/2019, 03/01/2018, Additional history exists DIABETES-EYE EXAM 02/08/2023 02/08/2022, , 04/28/2013, Additional history exists Albumin/Creatinine Ratio 07/10/2023 023, 08/08/2021, 10/24/2016, Additional history exists CKD HGB USE SMARTSET 90452 11/26/202311/25, 11/25/2022, 09/30/2022, Additional history exists Pneumococcal [...] this encounter Visit Diagnoses Diagnosis Anemia, unspecified type- Primary documented in this encounter Advance Directives [...] the patient have Health Care Power of Supervisor Statement Clerks? Yes, not currently available Code Status History Code Status Date Activated Date Inactivated Comments Full Code 09/15/2009 2:06 PM 09/16/2009 8:49 PM This o rder reflects the patients wishes and were consensually agreed upon. Question Answer Comments Discussion of Advance Directives occurred with: Patient/Family Does the patient have a Living Will? No Does the patient have Health Care Power of Supervisor Statement Clerks? No Full Code 11/25/2008 1:50 PM 11/29/2008 9:11 PM This order reflects the patients wishes and were consensually agreed upon. Question Answer Comments Discussion of Advance Directives occurred with: Patient Care Teams Air Pollution Control Engineer Relationship Specialty Start Date End Date Carola Arrington MD [address] [place] [address] PCP - General Internal Medicine 12/19/20 documented as of this encounter
--- OUTSIDE RECORDS SUMMARY | 2023-02-21 02:35 | External Medical Summary ---
Author Name Unknown Address Unknown Organization K01:LABORATORY [facility] - [address] [place] [address] Laboratory Report Ordering Provider Test Date Status RONALD EVANS 11/25/2022 14:28:52 Final Observation Date Value Abnormality Reference (Units ) Status Vitamin B12 11/25/2022 14:28:52 [phone] (pg/mL) Final Performing Location LAB[facility]ATORY [facility] - [address] [place] [address]
--- OUTSIDE RECORDS SUMMARY | 2023-02-21 02:35 | External Medical Summary | Summary of Care ---
Author Name Unknown Organization [facility] Address [address] [place] [address] Phone [phone] Care Team Providers Care Communications Tower Climber Name Role Phone Carola Arrington MD Primary Care Provider Reason for Visit * Reason Comments eRx-Medication Refill Encounter Details Date Type Department Care Team Description 11/12/2022 Refill Family Practice [facility] [address] [place] [facility] [place] [address] Carola Arrington MD [address] [place] [address] Dyslipidemia, goal LDL below 70; Dyslipidemia, goal LDL below 160; Mixed dyslipidemia Allergies No known active allergiesdocumented as of this encounter (statuses as of 11/12/2022) Medications Medication Sig Dispensed Refills Start Date [...] Information Patient not taking.Informant: Patient, Reported on 10/25/2022 amLODIPine Besylate 5 MG Oral Tablet (Norvasc)Indicat ions:HTN, goal below 130/80 TAKE 1 TABLET BY MOUTH EVERY DAY 90 Tablet 3 2 Active Lantus SoloStar 100 UNIT/ML Subcutaneous Solution Pen-injector (Insulin Glargine Solostar)Indicat ions:DM type 2, goal A1C to be determined (HCC),Type 2 diabetes mellitus with stage 3b chronic kidney disease, without long-term current use of insulin (HCC) INJECT 22 UNITS SUBCUTANEOUSLY (UNDER THE SKIN) IN THE MORNING OR DIRECTED 15 mL 3 2 Active Additional Information Patient taking differently: 25 Units Subcutaneous [id number], Reported on 09/30/2022 Isosorbide Mononitrate ER 120 MG Oral Tablet Extended Release 24 Hour (Imdur) TAKE 1 TABLET BY MOUTH EVERY MORNING 90 Tablet 1 3 Active metFORMIN HCl ER 500 MG Oral Tablet Extended Release 24 Hour (Glucophage XR)Indications:D M type 2, goal A1C to be determined ([facility]) TAKE 3 TABLETS BY MOUTH [...] goal A1C to be determined ([facility]) USE WITH INSULIN PEN EVERY DAY 100 Each 1 3 Active Ranolazine ER 1000 MG Oral Tablet Extended Release 12 HourIndications: Chest pain,Unstable angina (HCC) TAKE 1 TABLET TWICE A DAY 180 Tablet 3 3 Active Amiodarone HCl 200 MG Oral Tablet (Cordarone) TAPER DIRECTED TAKE 1 TABLET BY MOUTH TWO TIMES DAILY FOR 7 DAYS THEN TAKE TAKE 1 TABLET BY MOUTH EVERY DAY 0 3 Active Rosuvastatin Calcium 20 MG Oral Tablet (Crestor)Indicat ions:Dyslipidemi a, goal LDL below 70,Dyslipidemia, goal LDL below 160,Mixed dyslipidemia TAKE 1 TABLET IN THE MORNING 90 Tablet 2 3 Active Rosuvastatin Calcium 20 MG Oral Tablet (Crestor)Indicat ions:Dyslipidemi a, goal LDL below 70,Dyslipidemia, goal LDL below 160,Mixed dyslipidemia Take by mouth 1 Tablet in the morning. 90 Tablet 4 2 11/13/19 23 Discontinued documented as of this encounter (statuses as of 11/12/2022) Active Problems Problem Noted Date Unstable angina 10/25/2022 Type 2 diabetes mellitus wit h stage 3b chronic kidney disease, with long-term current use of insulin 08/09/2022 Enlarged aorta 08/09/2022 Hx of melanoma of skin 07/19/2021 Overview: Location: L upper back Year: 2016 Depth: MIS Treatment: WLE (positive margins on initial excision, then re-excised again with wider margins) Staging: Stage 0 - [id number] - Melanoma in situ Type 2 diabetes [...] as of this encounter (statuses as of 11/12/2022) Resolved Problems Problem Noted Date Resolved Date [...] # PI: Francoise Tomlin MD Please call [phone] with study related questions INTERFACED RESULT 11/17/2008 10/17/2011 GENOMICS CARDIO RESEARCH OTHER*[id number] 200806/25/2016 Overview: Renamed Per Clinical Trials Billing Project. Study Titile: Genomic Markers for Patients with Cardiovascular Disease Project # PI: Francoise Tomlin MD Please call [phone] with study related questions CLASS I-II ANGINA [...] as of this encounter (statuses as of 11/12/2022) Immunizations Name Administration Dates Next Due Pneumococcal [...] Comments:quit 30 yrs ago, wh ile in [employer] for 4 years Alcohol Use Standard Drinks/Week [...] encounter Miscellaneous Notes * Telephone Encounter - Maddison Mcmillan [facility] - 11/12/2022 1:04 PM EDTSigned Prescriptions: Disp Refills Rosuvastatin Calcium 20 MG Oral Tablet (Cr*90 Tab*2 Sig: TAKE 1 TABLET IN THE MORNINGAuthorizing Provider: CAROLA ARRINGTON User: MADDISON MCMILLAN--- documented in this encounter Plan of Treatment Upcoming Encounters Date Type Specialty Care Team Description 11/20/2022 Pharmacy Pharmacy [facility] [address] [place] [address] 11/25/2022 Office Visit Cardiology Azael Lozano MD [address] [place] [address] 02/12/2023 Office Visit Family Medicine Carola Arrington MD [address] [place] [address] 08/14/2023 Office Visit Dermatology Lyssa Gar MD [address] [place] [address] Health Maintenance Due Date Last Done Comments DXA Scan 1935 Zoster Vaccines (1 of 2) 1986 COVID-19 Vaccine (3 - Pfizer series) 09/20/2020 07/26/2020, 07/05/2020 COLONOSCOPY-EVERY 5 YRS AGES 18-100 03/20/2021 03/20/2016, 04/30/2010, 02/05/2002 CKD PHOS USE SMARTSET 90117 09/15/2021 04/3 , 04/18/2020, 04/27/2019, Additional history exists Depression Screening, Annual for Pts 12 and Over 10/26/2021 10/26/2020 DTaP,Tdap,and Td Vaccines (2 - Td or Tdap) 07/10/2022 07/10/2012 DIABETES-FOOT EXAM 08/08/2022 08/08/2021, 1 06/28/2019, 04/27/2019, Additional history exists HbA1c 01/07/2023 07/10/2022, 11/16, 08/08/2021, Additional history exists Influenza Vaccine (FLU shot) (Season Ended) 2023 02/21/2020, 03/02/2019, 03/01/2018, Additional history exists DIABETES-EYE EXAM 02/08/2023 02/08/2022, , 04/28/2013, Additional history exists Albumin/Creatinine Ratio 07/10/2023 023, 08/08/2021, 10/24/2016, Additional history exists Yearly B-12 07/10/2023 07/10/2022, 04/18, 04/18/2020, Additional history exists CKD HGB USE SMARTSET 33410 10/01/202309/30, 09/27/2022, 01/26/2021, Additional history exists Pneumococcal Vaccine: 65+ Years [...] as of this encounter Visit Diagnoses Diagnosis Dyslipidemia, goal LDL below 70 Other and unspecified hyperlipidemia Dyslipidemia, goal LDL below 160 Other and unspecified hyperlipidemia Mixed dyslipidemia Mixed hyperlipidemia documented in this encounter Advance Directives [...] the patient have Health Care Power of Workers Compensation Paralegal? Yes, not currently available Code Status History Code Status Date Activated Date Inactivated Comments Full Code 09/15/2009 2:06 PM 09/16/2009 8:49 PM This o rder reflects the patients wishes and were consensually agreed upon. Question Answer Comments Discussion of Advance Directives occurred with: Patient/Family Does the patient have a Living Will? No Does the patient have Health Care Power of Workers Compensation Paralegal? No Full Code 11/25/2008 1:50 PM 11/29/2008 9:11 PM This order reflects the patients wishes and were consensually agreed upon. Question Answer Comments Discussion of Advance Directives occurred with: Patient Care Teams Communications Tower Climber Relationship Specialty Start Date End Date Carola Arrington MD [address] [place] [address] PCP - General Internal Medicine 12/19/20 documented as of this encounter
--- OUTSIDE RECORDS SUMMARY | 2023-02-21 02:35 | External Medical Summary | Summary of Care ---
Author Name Unknown Organization [facility] Address [address] [place] [address] Phone [phone] Care Team Providers Care Customer Account Executive Name Role Phone Carola Arrington MD Primary Care Provider Reason for Visit * Reason Comments Outpatient Testing Encounter Details Date Type Department Care Team Description 11/25/2022 Laboratory Laboratory, [facility] [address] [place] [address] [facility] [address] [place] [address] URI with cough and congestion; Malaise and fatigue; Type 2 diabetes mellitus with stage 3b chronic kidney disease, without long-term current use of insulin ([facility]) Allergies No known active allergiesdocumented as of [...] Information Patient taking differently: 25 Units Subcutaneous [id number], Reported on 09/30/2022 Isosorbide Mononitrate ER 120 MG Oral Tablet Extended Release 24 Hour (Imdur) TAKE 1 TABLET BY MOUTH EVERY MORNING 90 Tablet 1 06/14/2022 Active metFORMIN HCl ER 500 MG Oral Tablet Extended Release 24 Hour (Glucophage XR)Indications:DM type 2, goal A1C to be determined ([facility]) TAKE 3 TABLETS BY MOUTH EVERY DAY WITH FOOD 270 Tablet 1 07/04/2022 Active Additional Information Patient taking differently: TAKE 1 TABLET BY MOUTH IN THE MORNING AND 2 TABLETS IN THE EVENING WITH FOOD, Reported on 09/30/2022 Clopidogrel Bisulfate 75 MG Oral Tablet (pLAVix)Indication s:Aortocoronary bypass status,Acute coronary syndrome (HCC),Chronic coronary artery disease,Enlarged aorta ([facility]) TAKE 1 TABLET BY MOUTH EVERY DAY 100 Tablet 1 07/24/2022 Active BD Pen Needle Emperatriz 2nd Gen 32G X 4 MM (Insulin Pen Needle)Indications :Type 2 diabetes mellitus with stage 3b chronic kidney disease, without long-term current use of insulin (HCC),DM type 2, goal A1C to be determined ([facility]) USE WITH INSULIN PEN EVERY DAY 100 [...] with wider margins) Staging: Stage 0 - [id number] - Melanoma in situ Type 2 diabetes [...] Aortic root 4.4 cm 4.29.[address] [facility]. HTN, goal below 130/80 [...] Markers for Patients with Cardiovascular Disease Project #[id number] PI: Francoise Tomlin MD Please call [phone] with study related questions INTERFACED RESULT 11/17/2008 10/17/2011 GENOMICS CARDIO RESEARCH OTHER*[id number] 200806/25/2016 Overview: Renamed Per Clinical Trials Billing Project. Study Titile: Genomic Markers for Patients with Cardiovascular Disease Project #[id number] PI: Francoise Tomlin MD Please call [phone] with study related questions CLASS I-II ANGINA [...] Comments:quit 30 yrs ago, wh ile in [place] for 4 years Alcohol Use Standard Drinks/Week [...] [facility] [address] [place] [address] 02/12/2023 Office Visit Family Medicine Carola Arrington MD [address] [place] [address] 08/14/2023 Office Visit Dermatology Lyssa Gar MD [address] [place] [address] Pending Results Name Type Priority Associated Diagnoses Date /Time CBC WITH WBC DIFFERENTIAL Lab Routine URI with cough and congestion Malaise and fatigue 11/25/2022 2:28 PM EDT COMPREHENSIVE METABOLIC PANEL Lab Routine URI with cough and congestion Malaise and fatigue 11/25/2022 2:28 PM EDT HEMOGLOBIN A1C Lab Routine Type 2 diabetes mellitus with stage 3b chronic kidney disease, without long-term current use of insulin (HCC) 11/25/2022 2:28 PM EDT 25-HYDROXY VITAMIN D Lab Routine Malaise and fatigue 11/25/2022 2:28 PM EDT VITAMIN B12 Lab Routine Malaise and fatigue 11/25/2022 2:28 PM EDT CBC Lab Routine URI with cough and congestion Malaise and fatigue 11/25/2022 2:28 PM EDT DIFFERENTIAL, AUTOMATED Lab Routine URI with cough and congestion Malaise and fatigue 11/25/2022 2:28 PM EDT Health Maintenance Due Date Last Done Comments DXA Scan 1935 B-12 1954 Zoster Vaccines (1 of 2) 1986 COVID-19 Vaccine (3 - Pfizer series) 09/20/2020 07/26/2020, 07/05/2020 COLONOSCOPY-EVERY 5 YRS AGES 18-100 03/20/2021 03/20/2016, 04/30/2010, 02/05/2002 CKD PHOS USE SMARTSET 62937 09/15/2021 04/3 , 04/18/2020, 04/27/2019, Additional history [...] Additional history exists CKD HGB USE SMARTSET 29849 10/01/202309/30, 09/27/2022, 01/26/2021, Additional history exists Pneumococcal [...] as of this encounter Visit Diagnoses Diagnosis URI with cough and congestion Malaise and fatigue Other malaise and fatigue Type 2 diabetes mellitus with stage 3b [...] the patient have Health Care Power of Gas Leak Inspector? Yes, not currently available Code Status History Code Status Date Activated Date Inactivated Comments Full Code 09/15/2009 2:06 PM 09/16/2009 8:49 PM This o rder reflects the patients wishes and were consensually agreed upon. Question Answer Comments Discussion of Advance Directives occurred with: Patient/Family Does the patient have a Living Will? No Does the patient have Health Care Power of Gas Leak Inspector? No Full Code 11/25/2008 1:50 PM 11/29/2008 9:11 PM This order reflects the patients wishes and were consensually agreed upon. Question Answer Comments Discussion of Advance Directives occurred with: Patient Care Teams Customer Account Executive Relationship Specialty Start Date End Date Carola Arrington MD [address] [place] [address] PCP - General Internal Medicine 12/19/20 documented as of this encounter
--- OUTSIDE RECORDS SUMMARY | 2023-02-21 02:35 | External Medical Summary | Summary of Care ---
Author Name Unknown Organization [facility] Address [address] [place] [address] Phone [phone] Care Team Providers Care Tumbling Machine Operator Name Role Phone Carola Arrington MD Primary Care Provider Reason for Visit * Reason Onset Date Comments Test Results 11/28/2022 Encounter Details Date Type Department Care Team Description 11/28/2022 Telephone Family Practice [facility] [address] [place] [address] Kierra Fox DO [address] [place] [address] Test Results Allergies No known active allergiesdocumented as of this encounter (statuses as of 11/29/2022) Medications Medication Sig Dispensed Refills Start Date [...] goal A1C to be determined ([facility]),Type 2 diabetes mellitus with stage 3b chronic kidney disease, without long-term current use of insulin (HCC) INJECT 22 UNITS SUBCUTANEOUSLY (UNDER THE SKIN) IN THE MORNING OR DIRECTED 15 mL 3 04/16/2022 Active Additional Information Patient taking differently: 25 Units Subcutaneous [id number], Reported on 09/30/2022 Isosorbide Mononitrate ER 120 [...] as of this encounter (statuses as of 11/29/2022) Active Problems Problem Noted Date Unstable angina 10/25/2022 Type 2 diabetes mellitus wit h stage 3b chronic kidney disease, with long-term current use of insulin 08/09/2022 Enlarged aorta 08/09/2022 Hx of melanoma of skin 07/19/2021 Overview: Location: L upper back Year: 2016 Depth: MIS Treatment: WLE (positive margins on initial excision, then re-excised again with wider margins) Staging: Stage 0 - [id number] - Melanoma in situ Type 2 diabetes [...] as of this encounter (statuses as of 11/29/2022) Resolved Problems Problem Noted Date Resolved Date [...] Aortic root 4.4 cm 4.29.2009 echo at [facility]. HTN, goal below 130/80 06/14/2009 2 Overview: Per HTN Taxonomy. Type 2 diabetes mellitus wit h hemoglobin A1c goal of less than 7.0% 03/02/2009 03/27/2011 Overview: Modified per Diabetes protocol #14. ICD-10 update of inactive term EXAMINATION OF PARTICIPANT IN CLINICAL TRIAL-gen omics 11/17/2008 09/01/2009 Overview: Renamed Per Clinical Trials Billing Project. Study Titile: Genomic Markers for Patients with Cardiovascular Disease Project #[id number] PI: Francoise Tomlin MD Please call [phone] with study related questions INTERFACED RESULT 11/17/2008 10/17/2011 GENOMICS CARDIO RESEARCH OTHER*[id number] 200806/25/2016 Overview: Renamed Per Clinical Trials Billing Project. Study Titile: Genomic Markers for Patients with Cardiovascular Disease Project #[id number] PI: Francoise Tomlin MD Please call [phone] with study related questions CLASS I-II ANGINA [...] as of this encounter (statuses as of 11/29/2022) Immunizations Name Administration Dates Next Due Pneumococcal [...] Comments:quit 30 yrs ago, wh ile in [place] for 4 years Alcohol Use Standard Drinks/Week [...] Telephone Encounter - Kierra Fox DO - 11/29/2022 10:03 AM EDT Noted Admitted with UTI * Telephone Encounter - Marlen Riley, MED ASSIST - 11/28/2022 3:39 PM EDT Spoke with patient's . He is currently in-patient at [facility] * Telephone Encounter - Kierra Fox DO - 11/28/2022 12:43 PM EDT Anemia noted on labs Any dk black stools, rectal bleeding? Would advise on OTC vitron c 1 tab twice daily with repeat labs in 1 month How is pt feeling Overall other labs stable Thank you documented in this encounter Plan of Treatment Upcoming Encounters Date Type Specialty Care Team Description 12/23/2022 Office Visit Pharmacy [facility] [address] [place] [address] 02/12/2023 Office Visit Family Medicine Carola Arrington MD [address] [place] [address] 08/14/2023 Office Visit Dermatology Lyssa Gar MD [address] [place] [address] Scheduled Orders Name Type Priority Associated Diagnoses Orde r Schedule CBC WITH WBC DIFFERENTIAL AND ANEMIA REFLEX WORKUP Lab Routine Anemia, unspecified type Expected: 12/29/2022 (Approximate), Expires: 11/29/2023 Health Maintenance Due Date Last Done Comments DXA Scan 1935 Zoster Vaccines (1 of 2) 1986 COVID-19 Vaccine (3 - Pfizer series) 09/20/2020 07/26/2020, 07/05/2020 COLONOSCOPY-EVERY 5 YRS AGES 18-100 03/20/2021 03/20/2016, 04/30/2010, 02/05/2002 CKD PHOS USE SMARTSET 77836 09/15/2021 04/3 , 04/18/2020, 04/27/2019, Additional history [...] Additional history exists CKD HGB USE SMARTSET 13705 11/26/202311/25, 11/25/2022, 09/30/2022, Additional history exists Pneumococcal [...] the patient have Health Care Power of Dealer Development Manager? Yes, not currently available Code Status History Code Status Date Activated Date Inactivated Comments Full Code 09/15/2009 2:06 PM 09/16/2009 8:49 PM This o rder reflects the patients wishes and were consensually agreed upon. Question Answer Comments Discussion of Advance Directives occurred with: Patient/Family Does the patient have a Living Will? No Does the patient have Health Care Power of Dealer Development Manager? No Full Code 11/25/2008 1:50 PM 11/29/2008 9:11 PM This order reflects the patients wishes and were consensually agreed upon. Question Answer Comments Discussion of Advance Directives occurred with: Patient Care Teams Tumbling Machine Operator Relationship Specialty Start Date End Date Carola Arrington MD [address] [place] [address] PCP - General Internal Medicine 12/19/20 documented as of this encounter
--- OUTSIDE RECORDS SUMMARY | 2023-02-21 02:35 | External Medical Summary ---
Author Name Unknown Address Unknown Organization K01:LAB[facility]ATORY [facility] [place] - [address] [place] [address] Laboratory Report Ordering Provider Test Date Status STEPHENIE RAMÍREZ 12/02/2022 14:50:19 Final Observation Date Value Abnormality Reference (Units ) Status MYCODE SPECIMEN-SST 12/02/2022 14:50:19 Freezing of extracted DNA, whole blood and/or serum. Final Performing Location LABORATORY [facility] [place] - [address] [place] [address]
--- OUTSIDE RECORDS SUMMARY | 2023-02-21 02:35 | External Medical Summary | Summary of Care ---
Author Name Unknown Organization [facility] Address [address] [place] [address] Phone [phone] Care Team Providers Care Civil Clerk Name Role Phone Carola Arrington MD Primary Care Provider Reason for Visit * Reason Comments Follow Up Pt being seen for is sues with feeling no better since hospital stay in October for dehydration and pneumonia. Feels sluggish, tired, cough, congestion and just not feeling well. He lacks energy per Encounter Details Date Type Department Care Team Description 11/25/2022 Office Visit [facility] [address] [facility] [address] Kierra Santoyo, [address] [facility] [address] URI with cough and congestion*; Malaise and fatigue; Type 2 diabetes mellitus [...] 15 MINUTES. 25 Tab 1 9 Active Lantus SoloStar 100 UNIT/ML Subcutaneous Solution Pen-injector (Insulin Glargine Solostar)Indicat ions:DM type 2, goal A1C to be determined (HCC),Type 2 diabetes mellitus with stage 3b chronic kidney disease, without long-term current use of insulin (HCC) INJECT 22 UNITS SUBCUTANEOUSLY (UNDER THE SKIN) IN THE MORNING OR DIRECTED 15 mL 3 2 Active Additional Information Patient taking differently: 25 Units Subcutaneous [id number], Reported on 09/30/2022 Isosorbide Mononitrate ER 120 MG Oral Tablet Extended Release 24 Hour (Imdur) TAKE 1 TABLET BY MOUTH EVERY MORNING 90 Tablet 1 3 Active metFORMIN HCl ER 500 MG Oral Tablet Extended Release 24 Hour (Glucophage XR)Indications:D M type 2, goal A1C to be determined ([facility]) TAKE 3 TABLETS BY MOUTH EVERY [...] THE MORNING 90 Tablet 2 3 Active amLODIPine Besylate 5 MG Oral Tablet (Norvasc)Indicat ions:HTN, goal below 130/80 TAKE 1 TABLET BY MOUTH EVERY DAY 90 Tablet 3 2 11/26/19 23 Discontinued documented as of this encounter [...] with wider margins) Staging: Stage 0 - [id number] - Melanoma in situ Type 2 diabetes [...] root 4.4 cm 4.29.[address] [facility]. HTN, goal below 130/80 06/14/2009 [...] Markers for Patients with Cardiovascular Disease Project #[id number] PI: Ricardo Yang MD Please call [phone] with study related questions INTERFACED RESULT 11/17/2008 10/17/2011 GENOMICS CARDIO RESEARCH OTHER*[id number] 200806/25/2016 Overview: Renamed Per Clinical Trials Billing Project. Study Titile: Genomic Markers for Patients with Cardiovascular Disease Project #[id number] PI: Ricardo Yang MD Please call [phone] with study related questions CLASS I-II ANGINA [...] Answered Comments:quit 30 yrs ago, while in [employer] for 4 years Alcohol Use Standard Drinks/Week [...] Sign Reading Time Taken Comments Blood Pressure 108/60 11/25/2022 1:47 PM EDT Pulse 67 11/25/2022 1:47 PM EDT Temperature 36 C (96.8 F) 11/25/2022 1:47 PM EDT Respiratory Rate 16 11/25/2022 1:47 PM EDT Oxygen Saturation - - Inhaled Oxygen Concentration - - Weight 68 kg (150 lb) 11/25/2022 1:47 PM EDT Height - - Body Mass Index 20.92 10/25/2022 10:44 AM EDT documented in this encounter Progress Notes * Kierra Santoyo, DO - 11/25/2022 1:51 PM EDT Subjective: Dirk Garcia is a 87 year old male. Chief Complaint Patient presents with Follow Up Pt being seen for issues with feeling no better since hospital stay in October for dehydration and pneumonia. Feels sluggish, tired, cough, congestion and just not feeling well. There are no exam notes on file for this visit. HPI: This is a 87 year old male with PMHx as below presents with acute illness A few weeks ago - lack of energy Hospital end of september for pna Pt does get up in middle of night to urinate but this is not new VSS Health Maintenance Due Topic Date Due DXA Scan Never done B-12 Never done Zoster Vaccines (1 of 2) Never done COVID-19 Vaccine (3 - Pfizer series) 09/20/2020 COLONOSCOPY-EVERY 5 YRS AGES 18-100 03/20/2021 CKD PHOS USE SMARTSET 69396 09/15/2021 Depression Screening, Annual for Pts 12 [...] 2, goal A1C to be determined (HCC) E11.9 HTN, goal below 140/90 I10 History [...] insulin (HCC) E11.22, N18.32, Z79.4 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 34 Tab 11 nitroglycerin (NITROSTAT) 0.4 MG SUBL DISSOLVE 1 TABLET UNDER THE TONGUE EVERY 5 MINUTES FOR CHEST PAIN. UP TO 3 DOSES IN 15 MINUTES. 25 Tab 1 Lantus SoloStar 100 UNIT/ML Subcutaneous Solution Pen-injector (Insulin Glargine Solostar) INJECT 22 UNITS SUBCUTANEOUSLY (UNDER THE SKIN) IN THE MORNING OR DIRECTED (Patient taking differently: Inject 25 Units under the skin every evening.) 15 mL 3 Isosorbide Mononitrate ER 120 MG Oral Tablet Extended Release 24 Hour (Imdur) TAKE 1 TABLET BY MOUTH EVERY MORNING 90 Tablet 1 Clopidogrel Bisulfate 75 MG Oral Tablet (pLAVix) TAKE 1 TABLET BY MOUTH EVERY DAY 100 Tablet 1 BD Pen Needle Emperatriz 2nd Gen 32G X 4 MM (Insulin Pen Needle) USE WITH INSULIN PEN EVERY DAY 100 Each 1 Ranolazine ER 1000 MG Oral Tablet Extended Release 12 Hour TAKE 1 TABLET TWICE A DAY 180 Tablet3 Amiodarone HCl 200 MG Oral Tablet (Cordarone) TAPER DIRECTED TAKE 1 TABLET BY MOUTH TWO TIMES DAILY FOR 7 DAYS THEN TAKE TAKE 1 TABLET BY MOUTH EVERY DAY Rosuvastatin Calcium 20 MG Oral Tablet (Crestor) TAKE 1 TABLET IN THE MORNING 90 Tablet 2 amLODIPine Besylate 5 MG Oral Tablet (Norvasc) TAKE 1 TABLET BY MOUTH EVERY DAY (Patient not taking: Reported on 11/25/2022) 90 Tablet 3 metFORMIN HCl ER 500 MG Oral Tablet Extended Release 24 Hour (Glucophage XR) TAKE 3 TABLETS BY MOUTH EVERY DAY WITH FOOD (Patient taking differently: TAKE 1 TABLET BY MOUTH IN THE MORNING AND 2 TABLETS IN THE EVENING WITH FOOD) 270 Tablet 1 No current facility-administered medications for this visit. 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 Enlarged aorta (HCC) 09/15/2009 Aortic root 4.4 cm 4.29.[address] [facility]. HTN, goal below 130/80 06/14/2009 Per HTN Taxonomy. HTN, goal below 140/90 S/P angioplasty with stent drug eluting 09/15/09 Plavix x 12m Past Surgical History: Procedure Laterality Date CABG, ARTERIAL, SINGLE 11/25/08 CORONARY ARTERY BYPASS GRAFT USING ARTERY 1 GRAFT performed by MAXIMILIANO CASILLAS at [facility] CABG, ARTERY-VEIN, TWO 11/25/08 CORONARY ARTERY BYPASS GRAFT ARTERIAL AND VENOUS 2 GRAFTS performed by MAXIMILIANO CASILLAS at [facility] CATHETERIZE LEFT HEART THRU SKIN Cardiac Catheterization, Left Heart CATHETERIZE LEFT HEART THRU SKIN 11/17/08 LEFT HEART CATH, PERCUTANEOUS performed by DRAKE MALONE at [facility] CATHETERIZE LEFT HEART THRU SKIN 09/15/09 LEFT HEART CATH, PERCUTANEOUS performed by RICARDO YANG at [facility] COLONOSCOPY THRU STOMA, W/BIOPSY jan 2002 adenomatous and hyperplastic polyps, next in jan 2005 CORONARY ANGIOGRAPHY W/LEFT HEART CATH 11/25/2011 CORONARY ANGIOGRAPHY W/LEFT HEART CATH performed by Jermaine Leary DO at [facility] DESTRUCTION PREMALIGNANT LESION 1ST about 2001 facial lesion. ENDO,VIDEO ASSIST HARVEST WALE 11/25/08 ENDOSCOPY VIDEO ASSISTED HARVEST VEIN performed by MAXIMILIANO CASILLAS at [facility] REMOVAL OF APPENDIX age 21 Review of patient's allergies indicates: No Known Allergies Family History Problem Relation Age of Onset Stroke Mother age 45, Heart Disorder Father old age, age 83 Neurological Disorder Father Alzheimer Family Status Relation Status Mo at age 38 cva Fa at age 81 alzheimer's, [place] Roberto Alive healthy Son Alive healthy Bro at child Social History Socioeconomic History Marital status: Spouse name: Not on file Number of children: 2 Years of education: Not on file Highest education level: Not on file Occupational History 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 Tobacco Use Smoking status: Former Packs/day: 0.50 Years: 5.00 Pack years: 2.50 Types: Cigarettes Quit date: 05/19/1984 Years since quittin.5 Smokeless tobacco: Never Tobacco comments: quit 30 yrs ago, while in [employer] for 4 years Vaping Use Vaping Use: [...] negative. Wt Readings from Last 3 Encounters: 11/25/22 68 kg (150 lb) 10/25/22 68.3 kg (150 lb 9.6 oz) 09/30/22 68.3 kg (150 lb 9.6 oz) Results for orders placed or performed in visit on 10/25/22 BASIC METABOLIC PANEL Result Value Ref Range BUN 31 (H) 6 - 20 mg/dL Creatinine 1.5 (H) 0.6 - 1.2 mg/dL Estimated Glomerular Filtration Rate 46 (L) >=60 mL/min Sodium 138 135 - 146 mmol/L Potassium 5.1 3.5 - 5.1 mmol/L Chloride 101 98 - 107 mmol/L CO2 23 22 - 32 mmol/L Anion Gap 14 7 - 15 mmol/L Glucose 149 (H) 70 - 120 mg/dL Calcium 9.7 8.4 - 10.2 mg/dL MAGNESIUM Result Value Ref Range Magnesium 2.1 1.5 - 2.6 mg/dL OBJECTIVE: Physical Exam: BP 108/60 | Pulse 67 | Temp 36 C (96.8 F) (Tympanic) | Resp 16 | Wt 68 kg (150 lb) | BMI 20.92 kg/m | BSA 1.85 m General: alert, healthy and no distress Head: Normocephalic, No masses, lesions, tenderness or abnormalities Eye Exam: PERRLA, extraocular movements intact, conjunctiva are pink and non- injected, sclera clear Oropharynx: no exudate, no erythema, lips, buccal mucosa, and tongue normal and mucous membranes are moist Heart: regular rate & rhythm Lungs: lungs clear to auscultation Abdomen: abdomen soft, non-tender, normal bowel sounds and no masses or organomegaly URI with cough and congestion (Primary) - CBC WITH WBC DIFFERENTIAL; Future; Expected date: 11/25/2022 - COMPREHENSIVE METABOLIC PANEL; Future; Expected date: 11/25/2022 - XR CHEST 2 VIEWS Malaise and fatigue - CBC WITH WBC DIFFERENTIAL; Future; Expected date: 11/25/2022 - COMPREHENSIVE METABOLIC PANEL; Future; Expected date: 11/25/2022 - XR CHEST 2 VIEWS - 25-HYDROXY VITAMIN D; Future; Expected date: 11/25/2022 - VITAMIN B12; Future; Expected date: 11/25/2022 Type 2 diabetes mellitus with stage 3b chronic kidney disease, without long-term current use of insulin (HCC) - HEMOGLOBIN A1C; Future; Expected date: 11/25/2022 Kierra Santoyo DO documented in this encounter Plan of Treatment Upcoming Encounters Date Type Specialty Care Team Description 11/25/2022 Laboratory Laboratory [facility] [address] [place] [address] URI with cough and congestion; Malaise and fatigue; Type 2 diabetes mellitus with stage 3b chronic kidney disease, without long-term current use of insulin (HCC) 12/23/2022 Office Visit [facility]acy [facility] [address] [address] 02/12/2023 Office Visit Family Medicine Carola Arrington MD [address] [place] [place] [address] 08/14/2023 Office Visit Dermatology Lyssa Gar MD [address] [place] [address], [place] [address] Pending Results Name Type Priority Associated Diagnoses Date /Time XR CHEST 2 VIEWS Medical Imaging STAT URI with cough and congestion Malaise and fatigue 11/25/2022 2:20 PM EDT Scheduled Orders Name Type Priority Associated Diagnoses Orde r Schedule CBC WITH WBC DIFFERENTIAL Lab Routine URI with cough and congestion Malaise and fatigue Expected: 11/25/2022 (Approximate), Expires: 11/26/2023 COMPREHENSIVE METABOLIC PANEL Lab Routine URI with cough and congestion Malaise and fatigue Expected: 11/25/2022 (Approximate), Expires: 11/25/2023 HEMOGLOBIN A1C Lab Routine Type 2 diabetes mellitus with stage 3b chronic kidney disease, without long-term current use of insulin (HCC) Expected: 11/25/2022 (Approximate), Expires: 11/25/2023 25-HYDROXY VITAMIN D Lab Routine Malaise and fatigue Expected: 11/25/2022 (Approximate), Expires: 11/25/2023 VITAMIN B12 Lab Routine Malaise and fatigue Expected: 11/25/2022 (Approximate), Expires: 11/25/2023 Health Maintenance Due Date Last Done Comments DXA Scan 1935 B-12 1954 Zoster Vaccines (1 of 2) 1986 COVID-19 Vaccine (3 - Pfizer series) 09/20/2020 07/26/2020, 07/05/2020 COLONOSCOPY-EVERY 5 YRS AGES 18-100 03/20/2021 03/20/2016, 04/30/2010, 02/05/2002 CKD PHOS USE SMARTSET 26952 09/15/2021 04/3 , 04/18/2020, 04/27/2019, Additional history [...] Additional history exists CKD HGB USE SMARTSET 76844 10/01/202309/30, 09/27/2022, 01/26/2021, Additional history exists Pneumococcal [...] Visit Diagnoses Diagnosis URI with cough and congestion- Primary Malaise and fatigue Other malaise and fatigue Type 2 diabetes mellitus with stage 3b chronic kidney disease, without long-term current use of insulin (HCC) URI with cough and congestion Malaise and [...] the patient have Health Care Power of Automotive Window Tinter? Yes, not currently available Code Status History Code Status Date Activated Date Inactivated Comments Full Code 09/15/2009 2:06 PM 09/16/2009 8:49 PM This o rder reflects the patients wishes and were consensually agreed upon. Question Answer Comments Discussion of Advance Directives occurred with: Patient/Family Does the patient have a Living Will? No Does the patient have Health Care Power of Automotive Window Tinter? No Full Code 11/25/2008 1:50 PM 11/29/2008 9:11 PM This order reflects the patients wishes and were consensually agreed upon. Question Answer Comments Discussion of Advance Directives occurred with: Patient Care Teams Civil Clerk Relationship Specialty Start Date End Date Carola Arrington MD [address] [place] [address] PCP - General Internal Medicine 12/19/20 documented as of this encounter"
--- OUTSIDE RECORDS SUMMARY | 2023-02-21 02:35 | External Medical Summary ---
Author Name Unknown Address Unknown Organization K01:[facility] [place] [address] [place] [address] Laboratory Report Ordering Provider Test Date Status RONALD EVANS 11/25/2022 14:28:52 Final Observation Date Value Abnormality Reference (Units ) Status 25-OH Vitamin D total 11/25/2022 14:28:52 38 >19 (ng/mL) Final Performing Location [facility] [place] [address] [place] [address]
--- OUTSIDE RECORDS SUMMARY | 2023-02-21 02:35 | External Medical Summary | Summary of Care ---
Author Name Unknown Organization [facility] Address [address] [place] [address] Phone [phone] Care Team Providers Care Market Development Trainer Name Role Phone Carola Arrington MD Primary Care Provider Reason for Visit * Reason Comments Outpatient Testing Encounter Details Date Type Department Care Team Description 10/25/2022 Laboratory Laboratory, [facility] [address] [place] [id number] [facility] [address] [place] [address] Hyperkalemia; Hyponatremia; Low magnesium level Allergies No known active allergiesdocumented as of this encounter (statuses as of 10/28/2022) Medications Medication Sig Dispensed Refills Start Date [...] Patient not taking.Informant: Patient, Reported on 10/25/2022 Rosuvastatin Calcium 20 MG Oral Tablet (Crestor)Indicatio ns:Dyslipidemia, goal LDL below 70,Dyslipidemia, goal LDL below 160,Mixed dyslipidemia Take by mouth 1 Tablet in the morning. 90 Tablet 4 08/22/2021 Active amLODIPine Besylate 5 MG Oral Tablet (Norvasc)Indicatio ns:HTN, goal below 130/80 TAKE 1 TABLET BY MOUTH EVERY DAY 90 Tablet 3 03/14/2022 Active Lantus SoloStar 100 UNIT/ML Subcutaneous Solution Pen-injector (Insulin Glargine Solostar)Indicatio ns:DM type 2, goal A1C to be determined ([facility]),Type 2 diabetes mellitus with stage 3b chronic kidney disease, without long-term current use of insulin ([facility]) INJECT 22 UNITS SUBCUTANEOUSLY (UNDER THE SKIN) IN THE MORNING OR DIRECTED 15 mL 3 04/16/2022 Active Additional Information Patient taking differently: 25 Units Subcutaneous [id number], Reported on 09/30/2022 Isosorbide Mononitrate ER 120 MG Oral Tablet Extended Release 24 Hour (Imdur) TAKE 1 TABLET BY MOUTH EVERY MORNING 90 Tablet 1 06/14/2022 Active metFORMIN HCl ER 500 MG Oral Tablet Extended Release 24 Hour (Glucophage XR)Indications:DM type 2, goal A1C to be determined ([facility]) TAKE 3 TABLETS BY MOUTH EVERY DAY WITH FOOD 270 Tablet 1 07/04/2022 Active Additional Information Patient taking differently: TAKE 1 TABLET BY MOUTH IN THE MORNING AND 2 TABLETS IN THE EVENING WITH FOOD, Reported on 09/30/2022 Clopidogrel Bisulfate 75 MG Oral Tablet (pLAVix)Indication s:Aortocoronary bypass status,Acute coronary syndrome (HCC),Chronic coronary artery disease,Enlarged aorta ([facility]) TAKE 1 TABLET BY MOUTH EVERY DAY 100 Tablet 1 07/24/2022 Active BD Pen Needle Emperatriz 2nd Gen 32G X 4 MM (Insulin Pen Needle)Indications :Type 2 diabetes mellitus with stage 3b chronic kidney disease, without long-term current use of insulin ([facility]),DM type 2, goal A1C to be determined ([facility]) USE WITH INSULIN PEN EVERY DAY 100 Each 1 07/24/2022 Active Ranolazine ER 1000 MG Oral Tablet Extended Release 12 HourIndications:Ch est pain,Unstable angina ([facility]) TAKE 1 TABLET TWICE A DAY 180 Tablet 3 08/27/2022 Active Amiodarone HCl 200 MG Oral Tablet (Cordarone) TAPER DIRECTED TAKE 1 TABLET BY MOUTH TWO TIMES DAILY FOR 7 DAYS THEN TAKE TAKE 1 TABLET BY MOUTH EVERY DAY 0 09/27/2022 Active documented as of this encounter (statuses as of 10/28/2022) Active Problems Problem Noted Date Unstable angina 10/25/2022 Type 2 diabetes mellitus wit h stage 3b chronic kidney disease, with long-term current use of insulin 08/09/2022 Enlarged aorta 08/09/2022 Hx of melanoma of skin 07/19/2021 Overview: Location: L upper back Year: 2016 Depth: MIS Treatment: WLE (positive margins on initial excision, then re-excised again with wider margins) Staging: Stage 0 - [id number] - Melanoma in situ Type 2 diabetes [...] as of this encounter (statuses as of 10/28/2022) Resolved Problems Problem Noted Date Resolved Date [...] root 4.4 cm 4.29.2009 echo at [facility]. HTN, goal below 130/80 06/14/2009 2 Overview: Per HTN Taxonomy. Type 2 diabetes mellitus wit h hemoglobin A1c goal of less than 7.0% 03/02/2009 03/27/2011 Overview: Modified per Diabetes protocol #14. ICD-10 update of inactive term EXAMINATION OF PARTICIPANT IN CLINICAL TRIAL-gen omics 11/17/2008 09/01/2009 Overview: Renamed Per Clinical Trials Billing Project. Study Titile: Genomic Markers for Patients with Cardiovascular Disease Project #[id number] PI: Francoise Tomlin MD Please call [phone] with study related questions INTERFACED RESULT 11/17/2008 10/17/2011 GENOMICS CARDIO RESEARCH OTHER*[id number] 200806/25/2016 Overview: Renamed Per Clinical Trials Billing Project. Study Titile: Genomic Markers for Patients with Cardiovascular Disease Project #[id number] PI: Francoise Tomlin MD Please call [phone] with study related questions CLASS I-II ANGINA PECTORIS, STABLE 04/26/2002 09/15/2009 Mixed dyslipidemia 04/26/2002 05/01/2009 Overview: Per Lipid Taxonomy. BENIGN NEOPLASM LG BOWEL 01/17/2002 04/23/2 019 HTN, goal below 140/90 08/23/1998 0 Overview: Per HTN Taxonomy. DM type 2, not at goal 08/23/1998 9 Overview: Modified per Diabetes protocol #14. THREE VESSEL ATHEROSCLEROTIC CORONARY DISEASE 09/15/2009 Dyslipidemia, goal LDL below 160 07/13/2013 documented as of this encounter (statuses as of 10/28/2022) Immunizations Name Administration Dates Next Due Pneumococcal [...] Comments:quit 30 yrs ago, wh ile in [place] for 4 years Alcohol Use Standard Drinks/Week [...] as of this encounter Miscellaneous Notes * Result Encounter Note - Carola Arrington MD - 10/28/2022 10:34 AM EDT Was just seen for post hospital visit, Kay Bowie addressed results. documented in this encounter Plan of Treatment Upcoming Encounters Date Type Specialty Care Team Description 11/20/2022 Pharmacy Pharmacy [facility] [address] [place] [phone] 11/25/2022 Office Visit Cardiology Azael Lozano MD [address] [place] [phone] 02/12/2023 Office Visit Family Medicine Carola Arrington MD [address] [place] [address] 08/14/2023 Office Visit Dermatology Lyssa Gar MD [address] [place] [address], [place] [address] Health Maintenance Due Date Last Done Comments DXA Scan 1935 Zoster Vaccines (1 of 2) 1986 COVID-19 Vaccine (3 - Pfizer series) 09/20/2020 07/26/2020, 07/05/2020 COLONOSCOPY-EVERY 5 YRS AGES 18-100 03/20/2021 03/20/2016, 04/30/2010, 02/05/2002 CKD PHOS USE SMARTSET 78174 09/15/2021 04/3 , 04/18/2020, 04/27/2019, Additional history [...] Additional history exists CKD HGB USE SMARTSET 87162 10/01/202309/30, 09/27/2022, 01/26/2021, Additional history exists Pneumococcal [...] Procedure Name Priority Date/Time Associated Diagnosis Comments BASIC METABOLIC PANEL Routine 10/25/2022 11:31 AM EDT Hyperkalemia MAGNESIUM Routine 10/25/2022 11:31 AM EDT Low magnesium level documented in this encounter Results * MAGNESIUM (10/25/2022 11:31 AM EDT) Magnesium 2.1 1.5 - 2.6 mg/dL 10/25/2022 7:[address] [facility] Blood Venous blood specimen / Unknown Venipuncture / Unknown 10/25/2022 11:31 AM EDT 10/25/2022 11:31 AM EDT Kay ARGUELLO LAB BLOOD [facility] [address] [place] [address] * (ABNORMAL) BASIC METABOLIC PANEL (10/25/2022 11:31 AM EDT) BUN 31(H) 6 - 20 mg/dL 10/25/2022 1:49 PM EDT [facility] Creatinine 1.5(H) 0.6 - 1.2 mg/dL 10/25/2022 1:49 PM EDT [facility] Estimated Glomerular Filtration Rate 46(L) >=60 mL/min 10/25/2022 1:49 PM EDT [facility] [facility] Comment:eGFR is calculated b ased on the CKD-EPI 2020 equation Sodium 138 135 - 146 mmol/L 10/25/2022 1:49 PM EDT [facility] Potassium 5.1 3.5 - 5.1 mmol/L 10/25/2022 1:49 PM EDT [facility] [facility] Chloride 101 98 - 107 mmol/L 10/25/2022 1:49 PM EDT [facility] [facility] CO2 23 22 - 32 mmol/L 10/25/2022 1:49 PM EDT [facility] [place] [facility] Anion Gap 14 7 - 15 mmol/L 10/25/2022 1:49 PM EDT [facility] [facility] Glucose 149(H) 70 - 120 mg/dL 10/25/2022 1:49 PM EDT [facility] [facility] Calcium 9.7 8.4 - 10.2 mg/dL 10/25/2022 1:49 PM EDT [facility] [facility] Blood Venous blood specimen / Unknown Venipuncture / Unknown 10/25/2022 11:31 AM EDT 10/25/2022 11:31 AM EDT Carola Arrington MD LAB BLOOD [facility] Organization Address City/State/ZIP Co de Phone Number [facility] [facility] [facility] [address] documented in this encounter Visit Diagnoses Diagnosis Hyperkalemia Hyperpotassemia Hyponatremia Hyposmolality and/or hyponatremia Low magnesium level documented in this encounter Advance Directives Latest [...] the patient have Health Care Power of Certified Fraud Examiner? Yes, not currently available Code Status History Code Status Date Activated Date Inactivated Comments Full Code 09/15/2009 2:06 PM 09/16/2009 8:49 PM This o rder reflects the patients wishes and were consensually agreed upon. Question Answer Comments Discussion of Advance Directives occurred with: Patient/Family Does the patient have a Living Will? No Does the patient have Health Care Power of Certified Fraud Examiner? No Full Code 11/25/2008 1:50 PM 11/29/2008 9:11 PM This order reflects the patients wishes and were consensually agreed upon. Question Answer Comments Discussion of Advance Directives occurred with: Patient Care Teams Market Development Trainer Relationship Specialty Start Date End Date Carola Arrington MD [address] [place] [address] PCP - General Internal Medicine 12/19/20 documented as of this encounter
--- OUTSIDE RECORDS SUMMARY | 2023-02-21 02:35 | External Medical Summary ---
Author Name Unknown Address Unknown Organization [id number] [address] [place] [address] Laboratory Report Ordering Provider Test Date Status RONALD EVANS 11/25/2022 14:28:52 Final Observation Date Value Abnormality Reference (Units ) Status SYNC LEUKOCYTES IN BLOOD BY AUTOMATED COUNT 11/25/2022 14:28:52 7.81 4.00-10.80 (K/uL) Final Segs 11/25/2022 14:28:52 69.8 40.0-75.0 (%) Final Lymphs % 11/25/2022 14:28:52 19.3 18.0-42.0 (%) Final Monos 11/25/2022 14:28:52 10.2 1.0-11.0 (%) Final Eosinophils 11/25/2022 14:28:52 0.6 0.0-6.0 (%) Final Basos 11/25/2022 14:28:52 0.1 0.0-2.0 (%) Final Absolute Segs 11/25/2022 14:28:52 5.44 1.80-7.70 (K/uL) Final Lymphs, absolute 11/25/2022 14:28:52 1.51 1.00-4.80 (K/ul) Final Monos, Abs 11/25/2022 14:28:52 0.80 0.00-1.10 (K/uL) Final Eos, Abs 11/25/2022 14:28:52 0.05 0.00-0.70 (K/uL) Final Basos, Abs 11/25/2022 14:28:52 0.01 0.00-0.20 (K/uL) Final Performing Location [facility] 0 - [address] [place] [address]
--- OUTSIDE RECORDS SUMMARY | 2023-02-21 02:35 | External Medical Summary ---
Author Name Unknown Address Unknown Organization [id number]:[facility] [address] - [address] [place] [address] Laboratory Report Ordering Provider Test Date Status RONALD EVANS 12/02/2022 14:50:19 Final Observation Date Value Abnormality Reference (Units ) Status WBC, Total 12/02/2022 14:50:19 6.71 4.00-10.8 0 (K/uL) Final RBC 12/02/2022 14:50:19 3.77 4.50-5.25 (M/uL) Final Hemoglobin 12/02/2022 14:50:19 11.9 Below low normal 14 .0-16.8 (g/dL) Final HCT 12/02/2022 14:50:19 35.7 Below low normal 40. 0-48.4 (%) Final MCV 12/02/2022 14:50:19 94.7 82.0-99.5 (fL) Final MCH 12/02/2022 14:50:19 31.6 27.0-34.0 (pg) Final MCHC 12/02/2022 14:50:19 33.3 32.0-36.0 (g/dL) Final RDW 12/02/2022 14:50:19 13.5 11.5-15.5 (%) Final Platelets 12/02/2022 14:50:19 213 140-400 (K /uL) Final MPV 12/02/2022 14:50:19 8.7 6.6-11.1 ( fL) Final Performing Location [facility] [address] - [address] [place] [address]
--- OUTSIDE RECORDS SUMMARY | 2023-02-21 02:35 | External Medical Summary ---
Author Name Unknown Address Unknown Organization K0G:[facility] - [address] [place] [address] Laboratory Report Ordering Provider Test Date Status RONALD EVANS 11/25/2022 14:28:52 Final Observation Date Value Abnormality Reference (Units ) Status WBC, Total 11/25/2022 14:28:52 7.81 4.00-10.8 0 (K/uL) Final RBC 11/25/2022 14:28:52 3.62 4.50-5.25 (M/uL) Final Hemoglobin 11/25/2022 14:28:52 11.6 Below low normal 14 .0-16.8 (g/dL) Final HCT 11/25/2022 14:28:52 34.1 Below low normal 40. 0-48.4 (%) Final MCV 11/25/2022 14:28:52 94.2 82.0-99.5 (fL) Final MCH 11/25/2022 14:28:52 32.0 27.0-34.0 (pg) Final MCHC 11/25/2022 14:28:52 34.0 32.0-36.0 (g/dL) Final RDW 11/25/2022 14:28:52 13.3 11.5-15.5 (%) Final Platelets 11/25/2022 14:28:52 192 140-400 (K /uL) Final MPV 11/25/2022 14:28:52 9.1 6.6-11.1 ( fL) Final Performing Location [facility] - [address] [place] [address]
--- OUTSIDE RECORDS SUMMARY | 2023-02-21 02:35 | External Medical Summary ---
Author Name Unknown Address Unknown Organization K0G:[facility] [address] - [address] [place] [address] Laboratory Report Ordering Provider Test Date Status RONALD EVANS 12/02/2022 14:50:19 Final Observation Date Value Abnormality Reference (Units ) Status BUN 12/02/2022 14:50:19 37 Above high normal 6-20 (mg/dL) Final Creatinine 12/02/2022 14:50:19 1.3 Above high normal 0.6-1.2 (mg/dL) Final Glomerular filtration rate/1.73 sq M.predicted [Volume Rate/Area] in Serum, Plasma or Blood by Creatinine-based formula (CKD-EPI) 12/02/2022 14:50:19 54 Below low normal >=60 (mL/min) Final Performing Location LAB[facility]ATORY [facility] [employer] [address] - [address] [place] [address]
--- OUTSIDE RECORDS SUMMARY | 2023-02-21 02:35 | External Medical Summary | Summary of Care ---
Author Name Unknown Organization [facility] Address [address] [place] [address] Phone [phone] Care Team Providers Care Eyeglass Maker Name Role Phone Carola Arrington MD Primary Care Provider Reason for Visit * Reason Onset Date Comments Mycode Lab Reorder 11/27/2022 Encounter Details Date Type Department Care Team Description 11/27/2022 Orders Only Outcomes Research Department [address] [place] [address] Isadora Valle CHRA MyCode Research Other*[id number]* Allergies No known active allergiesdocumented as of [...] Information Patient taking differently: 25 Units Subcutaneous [id number], Reported on 09/30/2022 Isosorbide Mononitrate ER 120 [...] with wider margins) Staging: Stage 0 - [id number] - Melanoma in situ Type 2 diabetes [...] Aortic root 4.4 cm 4.29.2009 echo at [facility]. HTN, goal below 130/80 06/14/2009 2 Overview: Per HTN Taxonomy. Type 2 diabetes mellitus wit h hemoglobin A1c goal of less than 7.0% 03/02/2009 03/27/2011 Overview: Modified per Diabetes protocol #14. ICD-10 update of inactive term EXAMINATION OF PARTICIPANT IN CLINICAL TRIAL-gen omics 11/17/2008 09/01/2009 Overview: Renamed Per Clinical Trials Billing Project. Study Titile: Genomic Markers for Patients with Cardiovascular Disease Project #[id number] PI: Francoise Tmolin MD Please call [phone] with study related questions INTERFACED RESULT 11/17/2008 10/17/2011 GENOMICS CARDIO RESEARCH OTHER*[id number] 200806/25/2016 Overview: Renamed Per Clinical Trials Billing Project. Study Titile: Genomic Markers for Patients with Cardiovascular Disease Project #[id number] PI: Francoise Tomlin MD Please call [phone] with study related questions CLASS I-II ANGINA [...] Comments:quit 30 yrs ago, [place] 4 years Alcohol Use Standard Drinks/Week [...] as of this encounter Progress Notes * LUIS ENRIQUE Bull - 11/27/2022 2:57 PM EDT MyCode lab reordered. documented in this encounter Plan of Treatment Upcoming Encounters Date Type Specialty Care Team Description 12/02/2022 Imaging Radiology 12/23/2022 Office Visit [facility] [address] [facility] [place] [address] 02/12/2023 Office Visit Family Medicine Carola Arrington MD [address] [place] [address] 08/14/2023 Office Visit Dermatology Lyssa Gar MD [address] [facility] [place] [facility] [place] [place] [address] Scheduled Orders Name Type Priority Associated Diagnoses Orde r Schedule MYCODE SUBSEQUENT ADULT Lab Routine MyCode Research Other*[id number] Every 6 Months for 2 Occurrences starting 11/27/2022 until 12/17/2023 Health Maintenance Due Date Last Done Comments DXA Scan 1935 Zoster Vaccines (1 of 2) 1986 COVID-19 Vaccine (3 - Pfizer series) 09/20/2020 07/26/2020, 07/05/2020 COLONOSCOPY-EVERY 5 YRS AGES 18-100 03/20/2021 03/20/2016, 04/30/2010, 02/05/2002 CKD PHOS USE SMARTSET 64610 09/15/2021 04/3 , 04/18/2020, 04/27/2019, Additional history [...] Additional history exists CKD HGB USE SMARTSET 74609 11/26/202311/25, 11/25/2022, 09/30/2022, Additional history exists Pneumococcal [...] as of this encounter Visit Diagnoses Diagnosis MyCode Research Other*[id number] Primary documented in this encounter Advance Directives [...] the patient have Health Care Power of Marshmallow Machine Worker? Yes, not currently available Code Status History Code Status Date Activated Date Inactivated Comments Full Code 09/15/2009 2:06 PM 09/16/2009 8:49 PM This o rder reflects the patients wishes and were consensually agreed upon. Question Answer Comments Discussion of Advance Directives occurred with: Patient/Family Does the patient have a Living Will? No Does the patient have Health Care Power of Marshmallow Machine Worker? No Full Code 11/25/2008 1:50 PM 11/29/2008 9:11 PM This order reflects the patients wishes and were consensually agreed upon. Question Answer Comments Discussion of Advance Directives occurred with: Patient Care Teams Eyeglass Maker Relationship Specialty Start Date End Date Carola Arrington MD [address] [place] [address] PCP - General Internal Medicine 12/19/20 documented as of this encounter
--- OUTSIDE RECORDS SUMMARY | 2023-02-21 02:35 | External Medical Summary ---
Author Name Unknown Address Unknown Organization K01:LABORATORY [facility] [place] - [address] [place] [address] Laboratory Report Ordering Provider Test Date Status RONALD EVANS 11/25/2022 14:28:52 Final Observation Date Value Abnormality Reference (Units ) Status HbA1C 11/25/2022 14:28:52 8.1 Above high normal 4. 0-5.6 (%) Final Performing Location LABORATORY [facility] [place] - [address] [place] [address]
--- OUTSIDE RECORDS SUMMARY | 2023-02-21 02:35 | External Medical Summary ---
Author Name Unknown Address Unknown Organization K01:[facility]ATORY [facility] - [address] [place] [address] Laboratory Report Ordering Provider Test Date Status RONALD EVANS 11/25/2022 14:28:52 Final Observation Date Value Abnormality Reference (Units ) Status Iron 11/25/2022 14:28:52 41 Below low normal 45-176 (ug/dL) Final Iron-binding capacity 11/25/2022 14:28:52 317 250-425 (ug/dL) Final Transferrin Sat % 11/25/2022 14:28:52 13 Below low normal 15-55 (%) Final Performing Location LAB[facility]ATORY [facility] - [address] [place] [address]
--- OUTSIDE RECORDS SUMMARY | 2023-02-21 02:35 | External Medical Summary | Summary of Care ---
Author Name Unknown Organization [facility] Address [address] [place] [address] Phone [phone] Care Team Providers Care Test Preparer Name Role Phone Carola Arrington MD Primary Care Provider Reason for Visit * Reason Comments Appointment Encounter Details Date Type Department Care Team Description 11/20/2022 Pharmacy Pharmacy, [facility] [address] [place] [address] [facility] [address] [place] [address] Type 2 diabetes mellitus with stage 3b chronic kidney disease, without long-term current use of insulin ([facility])* Allergies No known active allergiesdocumented as of this encounter (statuses as of 11/20/2022) Medications Medication Sig Dispensed Refills Start Date [...] 10/25/2022 amLODIPine Besylate 5 MG Oral Tablet (Norvasc)Indicatio ns:HTN, goal below 130/80 TAKE 1 TABLET BY MOUTH EVERY DAY 90 Tablet 3 03/14/2022 Active Lantus SoloStar 100 UNIT/ML Subcutaneous Solution Pen-injector (Insulin Glargine Solostar)Indicatio ns:DM type 2, goal A1C to be determined ([facility]),Type 2 diabetes mellitus with stage 3b chronic kidney disease, without long-term current use of insulin (HCC) INJECT 22 UNITS SUBCUTANEOUSLY (UNDER THE SKIN) IN THE MORNING OR DIRECTED 15 mL 3 04/16/2022 Active Additional Information Patient taking differently: 25 Units Subcutaneous [id number], Reported on 09/30/2022 Isosorbide Mononitrate ER 120 MG Oral Tablet Extended Release 24 Hour (Imdur) TAKE 1 TABLET BY MOUTH EVERY MORNING 90 Tablet 1 06/14/2022 Active metFORMIN HCl ER 500 MG Oral Tablet Extended Release 24 Hour (Glucophage XR)Indications:DM type 2, goal A1C to be determined ([facility]) TAKE 3 TABLETS BY MOUTH EVERY DAY [...] type 2, goal A1C to be determined ([facility]) USE WITH INSULIN PEN EVERY DAY 100 [...] as of this encounter (statuses as of 11/20/2022) Active Problems Problem Noted Date Unstable angina 10/25/2022 Type 2 diabetes mellitus wit h stage 3b chronic kidney disease, with long-term current use of insulin 08/09/2022 Enlarged aorta 08/09/2022 Hx of melanoma of skin 07/19/2021 Overview: Location: L upper back Year: 2016 Depth: MIS Treatment: WLE (positive margins on initial excision, then re-excised again with wider margins) Staging: Stage 0 - [id number] - Melanoma in situ Type 2 diabetes [...] as of this encounter (statuses as of 11/20/2022) Resolved Problems Problem Noted Date Resolved Date [...] Aortic root 4.4 cm 4.29.2009 echo at [facility]. HTN, goal below 130/80 06/14/2009 [...] Markers for Patients with Cardiovascular Disease Project #[id number] PI: Francoise Tomlin MD Please call [phone] with study related questions INTERFACED RESULT 11/17/2008 10/17/2011 GENOMICS CARDIO RESEARCH OTHER*[id number] 200806/25/2016 Overview: Renamed Per Clinical Trials Billing Project. Study Titile: Genomic Markers for Patients with Cardiovascular Disease Project #[id number] PI: Francoise Tomlin MD Please call [phone] with study related questions CLASS I-II ANGINA [...] as of this encounter (statuses as of 11/20/2022) Immunizations Name Administration Dates Next Due Pneumococcal [...] Comments:quit 30 yrs ago, wh ile in [employer] for 4 years Alcohol Use Standard Drinks/Week [...] as of this encounter Progress Notes * Maria Del Rosario Vásquez, maintenance worker swimming pool - 11/20/2022 9:05 AM EDT Patient Phone Numbers Spoke with patient to schedule [facility] appointment for DM management. Appointment scheduled as noted below. 12/23/2022 Thank you, Maria Del Rosario Vásquez CPhT 11/20/2022 9:05 AM documented in this encounter Plan of Treatment Upcoming Encounters Date Type Specialty Care Team Description 12/23/2022 Office Visit Pharmacy [facility], [facility] [address] [place] [address] 02/12/2023 Office Visit Family Medicine Carola Arrington MD [address] [place] [address] 08/14/2023 Office Visit Dermatology Lyssa Gar MD [address] [place] [address] Health Maintenance Due Date Last Done Comments DXA Scan 1935 Zoster Vaccines (1 of 2) 1986 COVID-19 Vaccine (3 - Pfizer series) 09/20/2020 07/26/2020, 07/05/2020 COLONOSCOPY-EVERY 5 YRS AGES 18-100 03/20/2021 03/20/2016, 04/30/2010, 02/05/2002 CKD PHOS USE SMARTSET 32158 09/15/2021 04/3 , 04/18/2020, 04/27/2019, Additional history [...] Additional history exists CKD HGB USE SMARTSET 41800 10/01/202309/30, 09/27/2022, 01/26/2021, Additional history exists Pneumococcal [...] disease, without long-term current use of insulin (HCC)- Primary documented in this encounter Advance [...] the patient have Health Care Power of Log Buncher? Yes, not currently available Code Status History Code Status Date Activated Date Inactivated Comments Full Code 09/15/2009 2:06 PM 09/16/2009 8:49 PM This order reflects the patients wishes and were consensually agreed upon. Question Answer Comments Discussion of Advance Directives occurred with: Patient/Family Does the patient have a Living Will? No Does the patient have Health Care Power of Log Buncher? No Full Code 11/25/2008 1:50 PM 11/29/2008 9:11 PM This order reflects the patients wishes and were consensually agreed upon. Question Answer Comments Discussion of Advance Directives occurred with: Patient Care Teams Test Preparer Relationship Specialty Start Date End Date Carola Arrington MD [address] [place] [address] PCP - General Internal Medicine 12/19/20 documented as of this encounter
--- OUTSIDE RECORDS SUMMARY | 2023-02-21 02:35 | External Medical Summary | Summary of Care ---
Author Name Unknown Organization [facility] Address [address] [place] [address] Phone [phone] Care Team Providers Care Kitchen Stewardess Name Role Phone Carola Arrington MD Primary Care Provider Encounter Details Date Type Department Care Team Description 10/28/2022 Telephone Pulmonary Medicine, [facility] [address] [facility] [place] [address] Kay Bowie CRNP [address] [facility] [address] Allergies No known active allergiesdocumented as of [...] Information Patient taking differently: 25 Units Subcutaneous [id number], Reported on 09/30/2022 Isosorbide Mononitrate ER 120 [...] Tablet (pLAVix)Indication s:Aortocoronary bypass status,Acute coronary syndrome ([facility]),Chronic coronary artery disease,Enlarged aorta ([facility]) TAKE 1 TABLET BY MOUTH EVERY DAY 100 Tablet 1 07/24/2022 Active BD Pen Needle Emperatriz 2nd Gen 32G X 4 MM (Insulin Pen Needle)Indications :Type 2 diabetes mellitus with stage 3b chronic kidney disease, without long-term current use of insulin ([facility]),DM type 2, goal A1C to be determined ([facility]) USE WITH INSULIN PEN EVERY DAY 100 Each 1 07/24/2022 Active Ranolazine ER 1000 MG Oral Tablet Extended Release 12 HourIndications:Ch est pain,Unstable angina ([facility]) TAKE 1 TABLET TWICE A DAY 180 [...] with wider margins) Staging: Stage 0 - [id number] - Melanoma in situ Type 2 diabetes [...] Aortic root 4.4 cm 4.29.2009 echo at [facility]. HTN, goal below 130/80 [...] Markers for Patients with Cardiovascular Disease Project #[id number] PI: Francoise Tomlin MD Please call [phone] with study related questions INTERFACED RESULT 11/17/2008 10/17/2011 GENOMICS CARDIO RESEARCH OTHER*[id number] 200806/25/2016 Overview: Renamed Per Clinical Trials Billing Project. Study Titile: Genomic Markers for Patients with Cardiovascular Disease Project #[id number] PI: Francoise Tomlin MD Please call [phone] with study related questions CLASS I-II ANGINA [...] Comments:quit 30 yrs ago, wh ile in [employer] for 4 years Alcohol Use Standard Drinks/Week [...] * Telephone Encounter - REGGIE Recinos - 10/28/2022 3:57 PM EDT Patient informed. * Telephone Encounter - JOS Flower - 10/28/2022 8:24 AM EDT Please notify patient Kidney functions reduced but stable Magnesium and potassium levels normal Sodium is back to normal Kusum, SWETA, JOS [facility] documented in this encounter Plan of Treatment Upcoming Encounters Date Type Specialty Care Team Description 11/20/2022 Pharmacy Pharmacy [facility] [address] [place] [address] 11/25/2022 Office Visit Cardiology Azael Lozano MD [address] [place] [address] 02/12/2023 Office Visit Family Medicine Carola Arrington MD [address] [place] [address] 08/14/2023 Office Visit Dermatology Lyssa Gar MD [address] [place] [address] Health Maintenance Due Date Last Done Comments DXA Scan 1935 Zoster Vaccines (1 of 2) 1986 COVID-19 Vaccine (3 - Pfizer series) 09/20/2020 07/26/2020, 07/05/2020 COLONOSCOPY-EVERY 5 YRS AGES 18-100 03/20/2021 03/20/2016, 04/30/2010, 02/05/2002 CKD PHOS USE SMARTSET 06885 09/15/2021 04/3 , 04/18/2020, 04/27/2019, Additional history [...] Additional history exists CKD HGB USE SMARTSET 80348 10/01/202309/30, 09/27/2022, 01/26/2021, Additional history exists Pneumococcal [...] the patient have Health Care Power of Heel Cementer? Yes, not currently available Code Status History Code Status Date Activated Date Inactivated Comments Full Code 09/15/2009 2:06 PM 09/16/2009 8:49 PM This o rder reflects the patients wishes and were consensually agreed upon. Question Answer Comments Discussion of Advance Directives occurred with: Patient/Family Does the patient have a Living Will? No Does the patient have Health Care Power of Heel Cementer? No Full Code 11/25/2008 1:50 PM 11/29/2008 9:11 PM This order reflects the patients wishes and were consensually agreed upon. Question Answer Comments Discussion of Advance Directives occurred with: Patient Care Teams Kitchen Stewardess Relationship Specialty Start Date End Date Carola Arrington MD [address] [place] [address] PCP - General Internal Medicine 12/19/20 documented as of this encounter
--- OUTSIDE RECORDS SUMMARY | 2023-02-21 02:35 | External Medical Summary | Summary of Care ---
Author Name Unknown Organization [facility] Address [address] [place] [address] Phone [phone] Care Team Providers Care Construction Executive Name Role Phone Carola Arrington MD Primary Care Provider Reason for Visit * Reason Comments Follow Up Patient presents in office today for a [place] [facility] follow-up visit was d/c 10/16 -- was in there for 8 days. Patient states that he is feeling pretty good. Encounter Details Date Type Department Care Team Description 10/25/2022 Office Visit Family Practice [facility] [address] [place] [address] Kay Bowie CRNP [address] [facility] [place] [address] Low magnesium level*; Hyponatremia; Type 2 diabetes mellitus with stage 3b chronic kidney disease, with long-term current use of insulin (HCC); HTN, goal below 140/90; Chronic coronary artery disease; Fall, subsequent encounter; Unstable angina (HCC) Allergies No known active allergiesdocumented as of this encounter (statuses as of 10/25/2022) Medications Medication Sig Dispensed Refills Start Date [...] 10/25/2022 Rosuvastatin Calcium 20 MG Oral Tablet (Crestor)Indicati ons:Dyslipidemia, goal LDL below 70,Dyslipidemia, goal LDL below 160,Mixed dyslipidemia Take by mouth 1 Tablet in the morning. 90 Tablet 4 08/22/2021 Active amLODIPine Besylate 5 MG Oral Tablet (Norvasc)Indicati ons:HTN, goal below 130/80 TAKE 1 TABLET BY MOUTH EVERY DAY 90 Tablet 3 03/14/2022 Active Lantus SoloStar 100 UNIT/ML Subcutaneous Solution Pen-injector (Insulin Glargine Solostar)Indicati ons:DM type 2, goal A1C to be determined ([facility]),Type 2 diabetes mellitus with stage 3b chronic kidney disease, without long-term current use of insulin (HCC) INJECT 22 UNITS SUBCUTANEOUSLY (UNDER THE SKIN) IN THE MORNING OR DIRECTED 15 mL 3 04/16/2022 Active Additional Information Patient taking differently: 25 Units Subcutaneous [id number], Reported on 09/30/2022 Isosorbide Mononitrate ER 120 [...] BY MOUTH EVERY DAY 0 09/27/2022 Active Losartan Potassium 50 MG Oral Tablet (Cozaar)Indicatio ns:HTN, goal below 130/80,Chronic coronary artery disease TAKE 2 TABLETS BY MOUTH EVERY DAY 180 Tablet 3 07/12/2022 10/26/19 23 Discontinu ed(Medicat ion List Clean Up) Metoprolol Succinate ER 25 MG Oral Tablet Extended Release 24 Hour (toPROL XL)Indications:Ch ronic coronary artery disease,Aortocoro nary bypass status,HTN, goal below 140/90 TAKE 2 TABLETS BY MOUTH EVERY DAY 180 Tablet 3 08/05/2022 10/26/19 Discontinu ed(Medicat ion List Clean Up) documented as of this encounter (statuses as of 10/25/2022) Active Problems Problem Noted Date Unstable angina 10/25/2022 Type 2 diabetes mellitus wit h stage 3b chronic kidney disease, with long-term current use of insulin 08/09/2022 Enlarged aorta 08/09/2022 Hx of melanoma of skin 07/19/2021 Overview: Location: L upper back Year: 2016 Depth: MIS Treatment: WLE (positive margins on initial excision, then re-excised again with wider margins) Staging: Stage 0 - [id number] - Melanoma in situ Type 2 diabetes [...] Protocol #27. Dyslipidemia, goal LDL below 70 12/14/20 09 Overview: Per Lipid Taxonomy. 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 at prior visit S/P angioplasty with stent Overview: drug eluting 09/15/09 Plavix x 12m DM type 2, goal A1C to be determined documented as of this encounter (statuses as of 10/25/2022) Resolved Problems Problem Noted Date Resolved Date [...] Aortic root 4.4 cm 4.29.2009 echo at [facility]. HTN, goal below 130/80 06/14/2009 2 Overview: Per HTN Taxonomy. Type 2 diabetes mellitus wit h hemoglobin A1c goal of less than 7.0% 03/02/2009 03/27/2011 Overview: Modified per Diabetes protocol #14. ICD-10 update of inactive term EXAMINATION OF PARTICIPANT IN CLINICAL TRIAL-gen omics 11/17/2008 09/01/2009 Overview: Renamed Per Clinical Trials Billing Project. Study Titile: Genomic Markers for Patients with Cardiovascular Disease Project #[id number] PI: Ricardo Yang MD Please call [phone] with study related questions INTERFACED RESULT 11/17/2008 10/17/2011 GENOMICS CARDIO RESEARCH OTHER*[id number] 200806/25/2016 Overview: Renamed Per Clinical Trials Billing Project. Study Titile: Genomic Markers for Patients with Cardiovascular Disease Project #[id number] PI: Ricardo Yang MD Please call [phone] with study related questions CLASS I-II ANGINA [...] as of this encounter (statuses as of 10/25/2022) Immunizations Name Administration Dates Next Due Pneumococcal [...] Comments:quit 30 yrs ago, wh [place] in [employer] [place] 4 years Alcohol Use Standard Drinks/Week [...] Sign Reading Time Taken Comments Blood Pressure 118/64 10/25/2022 10:44 AM EDT Pulse 88 10/25/2022 10:44 AM EDT Temperature - - Respiratory Rate 18 10/25/2022 10:44 AM EDT Oxygen Saturation - - Inhaled Oxygen Concentration - - Weight 68.3 kg (150 lb 9.6 oz) 10/25/2022 10:44 AM EDT Height 180.3 cm (5' 11") 10/25/2022 10:44 AM EDT Body Mass Index 21 10/25/2022 10:44 AM EDT documented in this encounter Progress Notes * JOS Flower - 10/25/2022 10:51 AM EDT . [facility] CC: Chief Complaint Patient presents with Follow Up Patient presents in office today for a [place] follow-up visit was d/c 10/16 -- was in there for 8 days. Patient states that he is feeling pretty good. History of Present Illness: Dirk Garcia is a 87 year old male presenting For hospital and acute rehab follow up. He was admitted to [facility] 10/03 for acute hyponatremia, hypomagnesium. Denies nausea or vomiting. Denies abdominal pain Denies sob or cough today. He notes he was sob yesterday. He drinks about 45 oz water daily. He is only using walker outside. He is not using walker in the house. Balance is better. He is getting ready to start outpatient occupational therapy. Ajith falls. Dm- blood sugars stable. 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 Enlarged aorta (HCC) 09/15/2009 Aortic root 4.4 cm 4.29.2010 echo at [facility]. HTN, goal below 130/80 06/14/2009 Per HTN Taxonomy. HTN, goal below 140/90 S/P angioplasty with stent drug eluting 09/15/09 Plavix x 12m Past Surgical History: Procedure Laterality Date CABG, ARTERIAL, SINGLE 11/25/08 CORONARY ARTERY BYPASS GRAFT USING ARTERY 1 GRAFT [place]IMILIAN[place] [facility], ARTERY-VEIN, TWO 11/25/08 CORONARY ARTERY BYPASS GRAFT ARTERIAL AND VENOUS 2 GRAFTS performed by MAXIMILIANO CASILLAS [place] [facility] [place]HETERIZE LEFT HEART THRU SKIN Cardiac Catheterization, Left Heart CATHETERIZE LEFT HEART THRU SKIN 11/17/08 LEFT HEART CATH, PERCUTANEOUS performed by DRAKE MALONE [place] [facility] [place]TER[place] LEFT HEART THRU SKIN 09/15/09 LEFT HEART CATH, PERCUTANEOUS performed by RICARDO YANG [place] [facility] COLONOSCOPY THRU STOMA, W/BIOPSY jan 2002 adenomatous and hyperplastic polyps, next in jan 2005 CORONARY ANGIOGRAPHY W/LEFT HEART CATH 11/25/2011 CORONARY ANGIOGRAPHY W/LEFT HEART CATH performed by Jermaine Leary DO at [facility] DESTRUCTION PREMALIGNANT LESION 1ST about 2001 facial lesion. ENDO,VIDEO ASSIST HARVEST WALE 11/25/08 ENDOSCOPY VIDEO ASSISTED HARVEST VEIN performed by MAXIMILIANO CASILLAS [place] [facility] REMOVAL OF APPENDIX age 21 Outpatient Medications Marked as Taking for the 10/25/22 encounter (Office Visit) with JOS Flower Medication Sig Amiodarone HCl 200 MG Oral Tablet (Cordarone) TAPER DIRECTED TAKE 1 TABLET BY MOUTH TWO TIMES DAILY FOR 7 DAYS THEN TAKE TAKE 1 TABLET BY MOUTH EVERY DAY Ranolazine ER 1000 MG Oral Tablet Extended Release 12 Hour TAKE 1 TABLET TWICE A DAY BD Pen Needle Emperatriz 2nd Gen 32G X 4 MM (Insulin Pen Needle) USE WITH INSULIN PEN EVERY DAY Clopidogrel Bisulfate 75 MG Oral Tablet (pLAVix) TAKE 1 TABLET BY MOUTH EVERY DAY metFORMIN HCl ER 500 MG Oral Tablet Extended Release 24 Hour (Glucophage XR) TAKE 3 TABLETS BY MOUTH EVERY DAY WITH FOOD (Patient taking differently: TAKE 1 TABLET BY MOUTH IN THE MORNING AND 2 TABLETS IN THE EVENING WITH FOOD) Isosorbide Mononitrate ER 120 MG Oral Tablet Extended Release 24 Hour (Imdur) TAKE 1 TABLET BY MOUTH EVERY MORNING Lantus SoloStar 100 UNIT/ML Subcutaneous Solution Pen-injector (Insulin Glargine Solostar) INJECT 22 UNITS SUBCUTANEOUSLY (UNDER THE SKIN) IN THE MORNING OR DIRECTED (Patient taking differently: Inject 25 Units under the skin every evening.) amLODIPine Besylate 5 MG Oral Tablet (Norvasc) TAKE 1 TABLET BY MOUTH EVERY DAY Rosuvastatin Calcium 20 MG Oral Tablet (Crestor) Take by mouth 1 Tablet in the morning. aspirin 81 MG chewable tablet Take 1 Tablet by mouth in the morning. Review of patient's allergies indicates: No Known Allergies Most Recent Immunizations Administered Date(s) Administered Pneumococcal Conjugate Vacc, 13 Valent (Prevnar) 01/18/2016 Pneumococcal Polysaccharide PPV23 (Pneumovax) 11/20/2004 Seasonal Influenza, Quadrivalent, ID 02/21/2020 Seasonal Influenza, Quadrivalent, No Preserve, 6 Mons & Above, IM 03/01/2018 Seasonal Influenza, Quadrivalent, No Preserve, IM 03/02/2017 Seasonal Influenza, Split, IIV3, With Preserve, Inj 02/16/2013 Seasonal Influenza, Trivalent, Adjuvanted, 65+ yrs 03/02/2019 TDAP (age 10 and older)(Boostrix) 07/10/2012 Review of Systems: Review of Systems Constitutional: Negative for fatigue and fever. Respiratory: Negative for shortness of breath. Cardiovascular: Negative for chest pain, palpitations and leg swelling. Gastrointestinal: Negative for abdominal pain. Neurological: Positive for light-headedness. Negative for dizziness. With standing, balance improving Physical Exam: BP 118/64 | Pulse 88 | Resp 18 | Ht 1.803 m (5' 11") | Wt 68.3 kg (150 lb 9.6 oz) | BMI 21.00 kg/m | BSA 1.85 m Physical Exam HENT: Head: Normocephalic. Cardiovascular: Rate and Rhythm: Normal rate and regular rhythm. Pulmonary: Effort: Pulmonary effort is normal. Breath sounds: Normal breath sounds. Neurological: General: No focal deficit present. Mental Status: He is alert and oriented to person, place, and time. Psychiatric: Mood and Affect: Mood normal. Behavior: Behavior normal. Thought Content: Thought content normal. Judgment: Judgment normal. Assessment and Plan: 1. Low magnesium level Noted while inpateint Recheck today - MAGNESIUM; Future 2. Hyponatremia - BASIC METABOLIC PANEL; Future 3. Type 2 diabetes mellitus with stage 3b chronic kidney disease, with long-term current use of insulin (HCC) Blood sugars stable Denies symptoms of low blood sugar 4. HTN, goal below 140/90 stable 5. Chronic coronary artery disease Denies anginal symptoms today 6. Fall, subsequent encounter S/p acute rehab with improvement Uses rollator walker when outside Starts outpatient occupational therapy I have advised the patient to call our office incase of any worsening or new symptoms. I spent a total of 30-39 minutes (exact time 35 mins) on the date of service in preparation, delivery, and documentation of the care provided to Dirk Garcia excluding any time spent in theperformance of separately billed services. [place], MSN, JOS [facility] documented in this encounter Nursing Notes * REGGIE Edwards - 10/25/2022 10:43 AM EDT The patient has been properly identified by confirmation of name and date of . Chief Complaint Patient presents with Follow Up Patient presents in office today for a [place] [facility] follow-up visit was d/c 10/16 -- was in there for 8 days. Patient states that he is feeling pretty good. ' documented in this encounter Plan of Treatment Upcoming Encounters Date Type Specialty Care Team Description 11/20/2022 Pharm[facility] [address] [facility] [place] [address] 11/25/2022 [facility] Visit [facility] [address] [facility] [place] [address] 02/12/2023 Office Visit [facility] [address] [facility] [place] [address] 08/14/2023 Office Visit Dermatology Lyssa Gar MD [address] [place] [id number] Pending Results Name Type Priority Associated Diagnoses Date /Time MAGNESIUM Lab Routine Low magnesium level 10/25/2022 11:31 AM EDT Scheduled Orders Name Type Priority Associated Diagnoses Orde r Schedule MAGNESIUM Lab Routine Low magnesium level Expected: 10/25/2022 (Approximate), Expires: 10/25/2023 Health Maintenance Due Date Last Done Comments DXA Scan 1936 Zoster Vaccines (1 of 2) 1986 COVID-19 Vaccine (3 - Pfizer series) 09/20/2020 07/26/2020, 07/05/2020 COLONOSCOPY-EVERY 5 YRS AGES 18-100 03/20/2021 03/20/2016, 04/30/2010, 02/05/2002 CKD PHOS USE SMARTSET [id number] 09/15/2021 04/3 , 04/18/2020, 04/27/2019, Additional history [...] Additional history exists CKD HGB USE SMARTSET 62624 10/01/202309/30, 09/27/2022, 01/26/2021, Additional history exists Pneumococcal [...] as of this encounter Visit Diagnoses Diagnosis Low magnesium level- Primary Hyponatremia Hyposmolality and/or hyponatremia Type 2 diabetes mellitus with stage 3b chronic kidney disease, with long-term current use of insulin (HCC) HTN, goal below 140/90 Unspecified essential hypertension Chronic coronary artery disease Coronary atherosclerosis of unspecified type of vessel, [place] or graft Fall, subsequent encounter Unstable angina (HCC) Intermediate coronary syndrome documented in this encounter Advance Directives Latest [...] the patient have Health Care Power of [place]? Yes, not currently available Code Status History Code Status Date Activated Date Inactivated Comments Full Code 09/15/2009 2:06 PM 09/16/2009 8:49 PM This o rder reflects the patients wishes and were consensually agreed upon. Question Answer Comments Discussion of Advance Directives occurred with: Patient/Family Does the patient have a Living Will? No Does the patient have Health Care Power of [place]? No Full Code 11/25/2008 1:50 PM 11/29/2008 9:11 PM This order reflects the patients wishes and were consensually agreed upon. Question Answer Comments Discussion of Advance Directives occurred with: Patient Care Teams Construction Executive Relationship Specialty Start Date End Date Carola Arrington MD [address] [place] [address] PCP - General Internal Medicine 12/19/20 documented as of this encounter
--- OUTSIDE RECORDS SUMMARY | 2023-02-21 02:35 | External Medical Summary ---
Author Name Unknown Address Unknown Organization [facility] [address] [place] [address] Laboratory Report Ordering Provider Test Date Status NATHANRONALD DONATO 11/25/2022 14:28:52 Final Observation Date Value Abnormality Reference (Units ) Status BUN 11/25/2022 14:28:52 35 Above high normal 6-20 (mg/dL) Final Creatinine 11/25/2022 14:28:52 1.5 Above high normal 0.6-1.2 (mg/dL) Final Glomerular filtration rate/1.73 sq M.predicted [Volume Rate/Area] in Serum, Plasma or Blood by Creatinine-based formula (CKD-EPI) 11/25/2022 14:28:52 44 Below low normal >=60 (mL/min) Final Performing Location [facility] [address] [place] [address]
--- OUTSIDE RECORDS SUMMARY | 2023-02-21 02:36 | External Medical Summary | Summary of Care ---
Author Name Unknown Organization [facility] Address [address] [place] [address] Phone [phone] Care Team Providers Care Parking Lot Attendant And Cashier Name Role Phone Carola Arrington MD Primary Care Provider Encounter Details Date Type Department Care Team Description 10/01/2022 Telephone Family Practice [facility] [address] [place] [address] Carola Arrington MD [address] [place] [id number] Allergies No known active allergiesdocumented as of this encounter (statuses as of 10/02/2022) Medications Medication Sig Dispensed Refills Start Date End Date Status aspirin 81 MG chewable tablet Take 1 Tablet by mouth in the morning. 34 Tab 11 10/28/2017 Active nitroglycerin (NITROSTAT) 0.4 MG SUBLIndications:Ch ronic coronary artery disease DISSOLVE 1 TABLET UNDER THE TONGUE EVERY 5 MINUTES FOR CHEST PAIN. UP TO 3 DOSES IN 15 MINUTES. 25 Tab 1 11/17/2018 Active Rosuvastatin Calcium 20 MG Oral Tablet [...] Information Patient taking differently: 25 Units Subcutaneous [id number], Reported on 09/30/2022 Isosorbide Mononitrate ER 120 [...] THE EVENING WITH FOOD, Reported on 09/30/2022 Losartan Potassium 50 MG Oral Tablet (Cozaar)Indication s:HTN, goal below 130/80,Chronic coronary artery disease TAKE 2 TABLETS BY MOUTH EVERY DAY 180 Tablet 3 07/12/2022 Active Additional Information Patient taking differently: 50 mg Oral BID(AM/PM), Reported on 09/30/2022 Clopidogrel Bisulfate 75 MG [...] EVERY DAY 100 Each 1 07/24/2022 Active Metoprolol Succinate ER 25 MG Oral Tablet Extended Release 24 Hour (toPROL XL)Indications:Chr onic coronary artery disease,Aortocoron jovanna bypass status,HTN, goal below 140/90 TAKE 2 TABLETS BY MOUTH EVERY DAY 180 Tablet 3 08/05/2022 Active Additional Information Patient not taking.Reported on 09/30/2022 Ranolazine ER 1000 MG Oral Tablet Extended [...] as of this encounter (statuses as of 10/02/2022) Active Problems Problem Noted Date Type 2 diabetes mellitus wit h stage 3b chronic kidney disease, with long-term current use of insulin 08/09/2022 Enlarged aorta 08/09/2022 Hx of melanoma of skin 07/19/2021 Overview: Location: L upper back Year: 2016 Depth: MIS Treatment: WLE (positive margins on initial excision, then re-excised again with wider margins) Staging: Stage 0 - QdcN2V9 - Melanoma in situ Type 2 diabetes [...] as of this encounter (statuses as of 10/02/2022) Resolved Problems Problem Noted Date Resolved Date [...] Aortic root 4.4 cm 4.29.2009 echo at [facility]. HTN, goal below 130/80 06/14/2009 2 Overview: Per HTN Taxonomy. Type 2 diabetes mellitus wit h hemoglobin A1c goal of less than 7.0% 03/02/2009 03/27/2011 Overview: Modified per Diabetes protocol #14. ICD-10 update of inactive term EXAMINATION OF PARTICIPANT IN CLINICAL TRIAL-gen omics 11/17/2008 09/01/2009 Overview: Renamed Per Clinical Trials Billing Project. Study Titile: Genomic Markers for Patients with Cardiovascular Disease Project #[id number] PI: Francoise Tomlin MD Please call [phone] with study related questions INTERFACED RESULT 11/17/2008 10/17/2011 GENOMICS CARDIO RESEARCH OTHER*[id number] 200806/25/2016 Overview: Renamed Per Clinical Trials Billing Project. Study Titile: Genomic Markers for Patients with Cardiovascular Disease Project #[id number] PI: Francoise Tomlin MD Please call [phone] with study related questions CLASS I-II ANGINA [...] as of this encounter (statuses as of 10/02/2022) Immunizations Name Administration Dates Next Due Pneumococcal [...] Comments:quit 30 yrs ago, wh ile in [employer] for 4 years Alcohol Use Standard Drinks/Week [...] encounter Miscellaneous Notes * Telephone Encounter - Crystal Morgan [facility] - 10/02/2022 1:24 PM EDT Noted. Patient has refused to test BG values in the past. Crystal Morgan, Pharm D Clinical Pharmacist 10/02/2022, 1:24 PM * Telephone Encounter - Carola Arrington MD - 10/02/2022 12:56 PM EDT Crystal - [facility] patient on Lantus, does not have and declining glucometer! Sees you 10/09. Labs from [facility] show on 09/27: Na 135 K 4.4 Cr 1.29 Calcium 8.5 * Telephone Encounter - REGGIE Recinos ASSIST - 10/02/2022 9:19 AM EDT Patient informed. He does not take his blood pressure or blood sugar at home and states he does nothave or want equipment needed for testing. He will get labs this Friday. Labs requested from [facility]. * Telephone Encounter - Carola Arrington MD - 10/01/2022 4:11 PM EDT Please request labs from [facility] for his most recent stay. Let patient know: -- Potassium is elevated - If patient is taking any potassium supplements should stop. Minimize high potassium foods like banana and grapefruit juice. -- Overall looks like he is Dehydrated, encourage Liquids. -- blood pressure any better today? -- How are his blood sugars? -- Would like to recheck labs Larry AM to make sure potassium and calcium are improving. documented in this encounter Plan of Treatment Upcoming Encounters Date Type Specialty Care Team Description 10/08/2022 Office Visit Cardiology Leonila Reaves CRNP [address] [place] [id number] 10/09/2022 Office Visit Pharmacy [facility] Stephanie [address] [place] [address] 11/12/2022 Imaging Radiology 11/25/2022 Office Visit Cardiology Azael Lozano MD [address] [place] [address] 02/12/2023 Office Visit Family Medicine Carola Arrington MD [address] [place] [address] 08/14/2023 Office Visit Dermatology Lyssa Gar MD [address] [place] [address], [place] [address] Scheduled Orders Name Type Priority Associated Diagnoses Orde r Schedule BASIC METABOLIC PANEL Lab Routine Hyperkalemia Expected: 10/01/2022, Expires: 10/02/2023 Health Maintenance Due Date Last Done Comments DXA Scan 1935 Zoster Vaccines (1 of 2) 1986 COVID-19 Vaccine (3 - Booster for Pfizer series) 09/20/2020 07/26/2020, 07/05/2020 COLONOSCOPY-EVERY 5 YRS AGES 18-100 03/20/2021 03/20/2016, 04/30/2010, 02/05/2002 CKD PHOS USE SMARTSET 37550 09/15/2021 04/3 , 04/18/2020, 04/27/2019, Additional history exists Depression Screening, Annual for Pts 12 and Over 10/26/2021 10/26/2020 DTaP,Tdap,and Td Vaccines (2 - Td or Tdap) 07/10/2022 07/10/2012 DIABETES-FOOT EXAM 08/08/2022 08/08/2021, 1 06/28/2019, 04/27/2019, Additional history exists HgA1C 01/07/2023 07/10/2022, 11/16, 08/08/2021, Additional history exists Influenza Vaccine (FLU shot) (Season Ended) 2023 02/21/2020, 03/02/2019, 03/01/2018, Additional history exists DIABETES-EYE EXAM 02/08/2023 02/08/2022, , 04/28/2013, Additional history exists Albumin/Creatinine Ratio 07/10/2023 023, 08/08/2021, 10/24/2016, Additional history exists Yearly B-12 07/10/2023 07/10/2022, 04/18, 04/18/2020, Additional history exists CKD HGB USE SMARTSET 92146 10/01/202309/30, 01/26/2021, 01/26/2021, Additional history exists Pneumococcal Vaccine: 65+ [...] as of this encounter Visit Diagnoses Diagnosis Hyperkalemia- Primary Hyperpotassemia documented in this encounter Advance Directives Latest [...] the patient have Health Care Power of Lace [place]? Yes, not currently available Code Status History Code Status Date Activated Date Inactivated Comments Full Code 09/15/2009 2:06 PM 09/16/2009 8:49 PM This o rder reflects the patients wishes and were consensually agreed upon. Question Answer Comments Discussion of Advance Directives occurred with: Patient/Family Does the patient have a Living Will? No Does the patient have Health Care Power of Lace Weaver? No Full Code 11/25/2008 1:50 PM 11/29/2008 9:11 PM This order reflects the patients wishes and were consensually agreed upon. Question Answer Comments Discussion of Advance Directives occurred with: Patient Care Teams Parking Lot Attendant And Cashier Relationship Specialty Start Date End Date Carola Arrington MD [address] [place] [address] PCP - General Internal Medicine 12/19/20 documented as of this encounter
--- OUTSIDE RECORDS SUMMARY | 2023-02-21 02:36 | External Medical Summary | Summary of Care ---
Author Name Unknown Organization [facility] Address [address] [place] [address] Phone [phone] Care Team Providers Care Crawler Dragline Operator Name Role Phone Carola Arrington MD Primary Care Provider Reason for Visit * Reason Comments Hospital Follow-Up Falls, hit head - pa izabela states he is feeling ok today Encounter Details Date Type Department Care Team Description 09/30/2022 Office Visit Family Practice [facility] [address] [facility] [address] Ben Wisdom CRNP [address] [facility] [address] Hospital discharge follow-up*; Hx of bacterial pneumonia; Hyponatremia; Fall, sequela; Risk and functional assessment; HTN, goal below 140/90; Chronic coronary artery disease; Aortocoronary bypass status; Type 2 diabetes mellitus with stage 3b chronic kidney disease, without long-term current use of insulin (HCC); Paroxysmal A-fib (HCC) Allergies No known active allergiesdocumented as of this encounter (statuses as of 09/30/2022) Medications Medication Sig Dispensed Refills Start Date [...] type 2, goal A1C to be determined ([facility]),Type 2 diabetes mellitus with stage 3b chronic kidney disease, without long-term current use of insulin ([facility]) INJECT 22 UNITS SUBCUTANEOUSLY (UNDER THE SKIN) IN THE MORNING OR DIRECTED 15 mL 3 04/16/2022 Active Additional Information Patient taking differently: 25 Units Subcutaneous [id number], Reported on 09/30/2022 Isosorbide Mononitrate ER 120 MG Oral Tablet Extended Release 24 Hour (Imdur) TAKE 1 TABLET BY MOUTH EVERY MORNING 90 Tablet 1 06/14/2022 Active metFORMIN HCl ER 500 MG Oral Tablet Extended Release 24 Hour (Glucophage XR)Indications:DM type 2, goal A1C to be determined ([facility]) TAKE 3 TABLETS BY MOUTH [...] disease, without long-term current use of insulin ([facility]),DM type 2, goal A1C to [...] as of this encounter (statuses as of 09/30/2022) Active Problems Problem Noted Date Type 2 diabetes mellitus wit h stage 3b chronic kidney disease, with long-term current use of insulin 08/09/2022 Enlarged aorta 08/09/2022 Hx of melanoma of skin 07/19/2021 Overview: Location: L upper back Year: 2016 Depth: MIS Treatment: WLE (positive margins on initial excision, then re-excised again with wider margins) Staging: Stage 0 - AluF2O2 - Melanoma in situ Type 2 diabetes [...] as of this encounter (statuses as of 09/30/2022) Resolved Problems Problem Noted Date Resolved Date [...] Aortic root 4.4 cm 4.29.2009 echo at [facility]. HTN, goal below 130/80 06/14/2009 [...] Markers for Patients with Cardiovascular Disease Project #[id number] PI: Ricardo Yang MD Please call [phone] with study related questions INTERFACED RESULT 11/17/2008 10/17/2011 GENOMICS CARDIO RESEARCH OTHER*[id number] 200806/25/2016 Overview: Renamed Per Clinical Trials Billing Project. Study Titile: Genomic Markers for Patients with Cardiovascular Disease Project #[id number] PI: Ricardo Yang MD Please call [phone] with study related questions CLASS I-II ANGINA [...] as of this encounter (statuses as of 09/30/2022) Immunizations Name Administration Dates Next Due Pneumococcal [...] Answered Comments:quit 30 yrs ago, while in [employer] for 4 years Alcohol Use Standard Drinks/Week [...] Sign Reading Time Taken Comments Blood Pressure 112/57 09/30/2022 3:21 PM EDT dyn amap Pulse 75 09/30/2022 3:21 PM EDT dynam ap Temperature 36.5 C (97.7 F) 09/30/2022 3:15 PM ED T Respiratory Rate 16 09/30/2022 3:15 PM EDT Oxygen Saturation - - Inhaled Oxygen Concentration - - Weight 68.3 kg (150 lb 9.6 oz) 09/30/2022 3:15 P M EDT Height - - Body Mass Index 21 08/09/2022 10:04 AM EDT documented in this encounter Patient Instructions * Patient Instructions* Hipolito Montoya RN - 09/30/2022 3:09 PM EDT Patient Instructions - Fall Prevention (This education is for all patients over 65 regardless of symptoms) Remember to take your current medications as prescribed. In order to prevent falls, you are encouraged to: Exercise Utilize assistive/adaptive devices Avoid multifocal lenses when walking Avoid hazards in home Maintain a regular toileting schedule Any questions please contact our office. Preventing Falls in the Home (This education is for all patients over 65 regardless of symptoms) As you get older, falls are more likely. Thats because your reaction time slows. Your muscles and joints may also get stiffer, making them less flexible. Illness, medications, and vision changes can also affect your balance. A fall could leave you unable to live on your own. To make your home safer, follow these tips: Floors Put nonskid pads under area rugs Remove throw rugs Replace worn floor coverings Tack carpets firmly to each step on carpeted stairs. Put nonskid strips on the edges of uncarpeted stairs Keep floors and stairs free of clutter and cords Arrange furniture so there are clear pathways Clean up any spills right away Bathrooms Install grab bars in the tub or shower Apply nonskid strips or put a nonskid rubber mat in the tub or shower Sit on a bath chair to bathe Use bathmats with nonskid backing Lighting Keep a flashlight in each room Put a nightlight along the pathway between the bedroom and the bathroom [employer] Patient Education Copyright 2008 - 2010 [employer] except where otherwise noted Preventing Falls: Exercises to Improve Balance, Flexibility, Strength, and Staying Power (This education is for all patients over 65 regardless of symptoms) Certain types of exercises may help make you less likely to fall. Try the ones below. Or do other exercises that your healthcare provider suggests. Depending on your health, you may need to start slowly. Dont let that stop you. Even small amounts of exercise can help you. Be sure to talk to yourhealthcare provider before starting any exercise program. Improve Balance Many types of exercise can help improve balance. Chalino chi and yoga are good examples. Heres another one to try. You can do it anytime and almost anywhere. Stand next to a counter or solid support. Push yourself up onto your tiptoes. Hold for 5 seconds. If you start to lose your balance, hold on to the counter. Rest and repeat 5 times. Work up to holding for 20 to 30 seconds, if you can. Increase Flexibility Being more flexible makes it easier for you to move around safely. Try exercises like the seated hamstring stretch. Sit in a chair and put one foot on a stool. Straighten your leg and reach with both hands down either side of your leg. Reach as far down your leg as you can. Hold for about 20 seconds. Go back to the starting position. Then repeat 5 times. Switch legs. Build Strength Resistance exercises help build strength. You can do them without equipment. Or you can use weights, elastic bands, or special machines. One such exercise is called the biceps curl. You can hold a 1 pound weight or even a can of soup. Do this exercise at least 3 times a week. Strive for everyday. Sit up straight in a chair. Keep your elbow close to your body and your wrist straight. Bend your arm, moving your hand up to your shoulder. Then slowly lower your arm. Repeat 5 times. Switch to the other arm. Build Your Staying Power Aerobic exercises make your heart and lungs stronger so you can keep moving longer. Walking and swimming are two of the best types of exercises you can do. Using a stationary bike is great, too. Find an aerobic exercise that you enjoy. Start slowly and build up. Even 5 minutes is helpful. Aimfor a goal of 30 minutes, at least 3 times a week. You dont have to do 30 minutes in one session. Break it up and walk a little throughout the day. More Helpful Tips Start easy. Slowly work up to doing more. Talk with your healthcare provider about the best exercises for you. Call senior centers or health clubs about exercise programs. If needed, have a family member watch you walk every so often to check your stability. Exercise with a friend. Choose an activity you both enjoy. Try exercises that you can do anytime, anywhere. Here are two examples. Have someone with you when you first try these: Practice walking by placing one foot right in front of the other. Stand up and sit down 10 times. Repeat this throughout the day. [employer] Patient Education Copyright 2009 - 2010 [employer] except where otherwise noted. Preventing Falls: Moving Safely Using a Cane or Walker (This education is for all patients over 65 regardless of symptoms) Keep the cane away from your feet so you dont trip. A walking aid, such as a cane or walker, can help you stay more independent and avoid falls. Remember to keep your walking aid within easy reach when youre in a chair or in bed. And learn how to use it safely so you dont injure yourself. Using a Cane If you have a stronger side, hold the cane on that side. 17. Get your balance. 18. Move the cane and your weaker leg forward. 19. Support your weight on both the cane and your weaker side. 20. Step with your stronger leg. 21. Start again from step 1. If youre using a folding walker, be sure you know how to lock it open. Check that its locked open before each use. Using a Walker 7. Roll the walker (or lift it, if youre using one without wheels) forward about 12 inches. 8. Step forward with your weaker leg first. 9. Use the walker to help keep your balance. 10. Bring your other foot forward to the center of the walker. 11. Start again from step 1. Helpful Tips Check with your healthcare provider about the right walking aid to use. Ask about a walker with a seat attached. Check the tips of your cane or walker to make sure they have nonskid covers. Move slowly from room to room. Dont kearney. Sit down to get dressed. Use a christo pack or backpack to keep your hands free. Get help for jobs that mean climbing, even on a stepstool. [employer] Patient Education Copyright 2008 - 2010 [employer] except where otherwise noted. Treating Urinary Incontinence in Men (This education is for all patients over 65 regardless of symptoms) You can't always control the release of urine. You may leak urine. Or you may not be able to hold your urine until you can get to a bathroom. This is called urinary incontinence. The problem can be managed. Talk to your doctor about your treatment options. Taking Medications Prescription medications may help you. They may: Help the sphincter to work better. (This is the muscle that closes to keep urine from leaking out of the bladder.) Help stop the bladder from adam too often to push urine out. Help the bladder muscles contract with more force. Help relax the sphincter muscle and allow urine to flow more freely. Making Changes to Your Routine Certain changes in your daily routine may help. These include: Avoiding caffeine and alcohol. Using timed voiding. This is following a schedule for drinking fluids and urinating. Doing Kegel exercises daily. These exercises involve tightening the muscles in your sphincter and around your bladder to help strengthen them. Your doctor can explain how to do them. Using a Catheter A catheter is a narrow tube that is inserted through the urethra into the bladder. It drains urine.A condom catheter covers the penis. It channels urine into a collection bag. It is worn most of thetime. Intermittent catheterization means inserting a catheter to drain the bladder, then removing it. This is done on a regular schedule. Having Surgery If other options don't work, surgery may be recommended. If surgery is an option, your healthcare provider can discuss it with you and explain its risks and benefits. Healing After Prostate Surgery Surgery on the prostate gland can cause incontinence. Most often, the incontinence is only for a short time. It clears up when healing is complete. Very rarely, prostate surgery can result in permanent incontinence. documented in this encounter Progress Notes * JOS Foley - 09/30/2022 3:33 PM EDT Images from the original note were not included. Follow up Family Medicine Visit History of Present Illness Dirk Garcia is a very pleasant 87 year old male with PMH listed below presenting with Hospital Follow-Up (Falls, hit head - patient states he is feeling ok today). Accompanied by his ,Beatrice Garcia. [facility] admitted from 09/23/22 to 09/27/22 Fall due to weakness, secondary to pneumonia - finished outpatient antibiotics. New onset of A-fib with RVR, amiodorone started at [facility] Metoprolol stopped. Losartan held until this morning due to elevated creatinine. BP 90/46 today in the office. He took Losartan 50 mg this morning. He is feeling better since discharged fro the hospital. No fever, chills, chest pain, shortness of breath, headache, nausea, vomit, diarrhea, constipation or vision changes. 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 Enlarged aorta (HCC) 09/15/2009 Aortic root 4.4 cm 4.29.2009 echo at [facility]. HTN, goal below 130/80 06/14/2009 Per HTN Taxonomy. HTN, goal below 140/90 S/P angioplasty with stent drug eluting 09/15/09 Plavix x 12m Past Surgical History: Procedure Laterality Date CABG, ARTERIAL, SINGLE 11/25/08 CORONARY ARTERY BYPASS GRAFT USING ARTERY 1 GRAFT performed by MAXIMILIANO CASILLAS at [facility] CABG, ARTERY-VEIN, TWO 11/25/08 CORONARY ARTERY BYPASS GRAFT ARTERIAL AND VENOUS 2 GRAFTS performed by MAXIMILIANO CASILLAS at [facility] CATHETERIZE LEFT HEART THRU SKIN Cardiac Catheterization, Left Heart CATHETERIZE LEFT HEART THRU SKIN 11/17/08 LEFT HEART CATH, PERCUTANEOUS performed by DRAKE MALONE at [facility] CATHETERIZE LEFT HEART THRU SKIN 09/15/09 LEFT HEART CATH, PERCUTANEOUS performed by RICARDO YANG at [facility] COLONOSCOPY THRU STOMA, W/BIOPSY jan 2002 adenomatous and hyperplastic polyps, next in jan 2005 CORONARY ANGIOGRAPHY W/LEFT HEART CATH 11/25/2011 CORONARY ANGIOGRAPHY W/LEFT HEART CATH performed by Jermaine Leary DO at [facility] DESTRUCTION PREMALIGNANT LESION 1ST about 2001 facial lesion. ENDO,VIDEO ASSIST HARVEST WALE 11/25/08 ENDOSCOPY VIDEO ASSISTED HARVEST VEIN performed by MAXIMILAINO CASILLAS at [facility] REMOVAL OF APPENDIX age 21 Outpatient Medications Marked as Taking for the 09/30/22 encounter (Office Visit) with JOS Foley Medication Sig Ranolazine ER 1000 MG Oral Tablet Extended Release 12 Hour TAKE 1 TABLET TWICE A DAY BD Pen Needle Emperatriz 2nd Gen 32G X 4 MM (Insulin Pen Needle) USE WITH INSULIN PEN EVERY DAY Clopidogrel Bisulfate 75 MG Oral Tablet (pLAVix) TAKE 1 TABLET BY MOUTH EVERY DAY Losartan Potassium 50 MG Oral Tablet (Cozaar) TAKE 2 TABLETS BY MOUTH EVERY DAY (Patient takingdifferently: Take 1 Tablet by mouth in the morning and 1 Tablet before bedtime.) metFORMIN HCl ER 500 MG Oral Tablet Extended Release 24 Hour (Glucophage XR) TAKE 3 TABLETS BY MOUTH EVERY DAY WITH FOOD (Patient taking differently: TAKE 1 TABLET BY MOUTH IN THE MORNING AND 2 TABLETS IN THE EVENING WITH FOOD) Isosorbide Mononitrate ER 120 MG Oral Tablet Extended Release 24 Hour (Imdur) TAKE 1 TABLET BY MOUTH EVERY MORNING amLODIPine Besylate 5 MG Oral Tablet (Norvasc) TAKE 1 TABLET BY MOUTH EVERY DAY Rosuvastatin Calcium 20 MG Oral Tablet (Crestor) Take by mouth 1 Tablet in the morning. nitroglycerin (NITROSTAT) 0.4 MG SUBL DISSOLVE 1 TABLET UNDER THE TONGUE EVERY 5 MINUTES FOR CHEST PAIN. UP TO 3 DOSES IN 15 MINUTES. aspirin 81 MG chewable tablet Take 1 [...] Systems: Review of Systems Constitutional: Negative for chills and fever. Respiratory: Negative for shortness of breath. Cardiovascular: Negative for chest pain. Physical Exam BP 112/57 (BP Site: Left Arm, BP Position: Sitting, BP Cuff Size: Regular) Comment: dynamap | Pulse75 Comment: dynamap | Temp 36.5 C (97.7 F) (Tympanic) | Resp 16 | Wt 68.3 kg (150 lb 9.6 oz) | BMI 21.00 kg/m | BSA 1.85 m Physical Exam Constitutional: Appearance: Normal appearance. HENT: Head: Normocephalic. Cardiovascular: Rate and Rhythm: Normal rate and regular rhythm. Pulmonary: Effort: Pulmonary effort is normal. Breath sounds: Normal breath sounds. Musculoskeletal: Cervical back: Neck supple. Skin: General: Skin is warm. Neurological: Mental Status: He is alert and oriented to person, place, and time. Psychiatric: Mood and Affect: Mood normal. Assessment and Plan 1. Hospital discharge follow-up Condition improved Pneumonia, fall, A-fib w/ rvr 2. Hx of bacterial pneumonia - XR CHEST 2 VIEWS; Future CXR to be rechecked after 6 weeks 3. Hyponatremia - BASIC METABOLIC PANEL; Future 4. Fall, sequela Discussed PT referral - pt feels back to his normal stage, deferred PT at this time. 5. Risk and functional assessment 6. HTN, goal below 140/90 90/46 today with 50mg this morning after stopping it for 3 days Discussed w/ pcp -- Hold losartan until seen by cardiology 7. Chronic coronary artery disease 8. Aortocoronary bypass status 9. Type 2 diabetes mellitus with stage 3b chronic kidney disease, without long- term current use of insulin (HCC) 10. Paroxysmal A-fib (HCC) On 09/25 night Amiodorone started during hospitalization - F/u with cardiology Wrap-Up I have advised the patient to call our office with any worsening or new symptoms. I spent a total of 40-54 minutes (exact time 40 mins) on the date of service in preparation, delivery, and documentation of the care provided to Dirk Garcia excluding any time spent in theperformance of separately billed services. SWETA Foley, [facility] * Hipolito Montoya RN - 09/30/2022 3:09 PM EDT Fall Risk Plan of Care Documentation: - Current medications reconciled Patient encouraged to: - Exercise - Provide education materials for Core strengthening - Utilize assistive/adaptive devices - Provide education materials - Avoid multifocal lenses when walking - Avoid hazards in home - Provide education materials - Maintain a regular toileting schedule Hipolito Montoya RN 09/30/2022 documented in this encounter Nursing Notes * Hipolito Montoya RN - 09/30/2022 3:09 PM EDT Chief Complaint Patient presents with Hospital Follow-Up Falls, hit head - patient states he is feeling ok today documented in this encounter Plan of Treatment Upcoming Encounters Date Type Specialty Care Team Description 10/03/2022 Imaging Radiology 10/09/2022 Office Visit Pharmacy [facility] [address] [place] [phone] 11/25/2022 Office Visit Cardiology Azael Lozano MD [address] [place] [phone] 02/12/2023 Office Visit Family Medicine Carola Arrington MD [address] [place] [phone] 08/14/2023 Office Visit Dermatology Lyssa Gar MD [address] [place] [address], [place] [address] Pending Results Name Type Priority Associated Diagnoses Date /Time BASIC METABOLIC PANEL Lab Routine Hyponatremia 09/30/2022 4:10 PM EDT Scheduled Orders Name Type Priority Associated Diagnoses Orde r Schedule BASIC METABOLIC PANEL Lab Routine Hyponatremia Expected: 09/30/2022 (Approximate), Expires: 09/30/2023 XR CHEST 2 VIEWS Medical Imaging Routine Hx of bacterial pneumonia Expected: 10/31/2022 (Approximate), Expires: 11/01/2023 Health Maintenance Due Date Last Done Comments DXA Scan 1936 Zoster Vaccines (1 of 2) 1986 COVID-19 Vaccine (3 - Booster for Pfizer series) 09/20/2020 07/26/2020, 07/05/2020 COLONOSCOPY-EVERY 5 YRS AGES 18-100 03/20/2021 03/20/2016, 04/30/2010, 02/05/2002 CKD PHOS USE SMARTSET [id number] 09/15/2021 04/3 , 04/18/2020, 04/27/2019, Additional history exists Depression Screening, Annual for Pts 12 and Over 10/26/2021 10/26/2020 CKD HGB USE SMARTSET 87326 01/26/202201/26, 01/26/2021, 09/15/2020, Additional history exists DTaP,Tdap,and Td Vaccines (2 - Td or [...] 07/10/2023 07/10/2022, 04/18, 04/18/2020, Additional history exists Pneumococcal Vaccine: 65+ [...] as of this encounter Visit Diagnoses Diagnosis Hospital discharge follow-up- Primary Other follow-up examination Hx of bacterial pneumonia Personal history of pneumonia (recurrent) Hyponatremia Hyposmolality and/or hyponatremia Fall, sequela Risk and functional assessment Screening for unspecified condition HTN, goal below 140/90 Unspecified essential hypertension Chronic coronary artery disease Coronary atherosclerosis of unspecified type of vessel, wales or graft Aortocoronary bypass status Postsurgical aortocoronary bypass status Type 2 diabetes mellitus with stage 3b chronic kidney disease, without long-term current use of insulin (HCC) Paroxysmal A-fib (HCC) Atrial fibrillation documented in this encounter Advance [...] the patient have Health Care Power of Pest Control Chemical Technician? Yes, not currently available Code Status History Code Status Date Activated Date Inactivated Comments Full Code 09/15/2009 2:06 PM 09/16/2009 8:49 PM This o rder reflects the patients wishes and were consensually agreed upon. Question Answer Comments Discussion of Advance Directives occurred with: Patient/Family Does the patient have a Living Will? No Does the patient have Health Care Power of Pest Control Chemical Technician? No Full Code 11/25/2008 1:50 PM 11/29/2008 9:11 PM This order reflects the patients wishes and were consensually agreed upon. Question Answer Comments Discussion of Advance Directives occurred with: Patient Care Teams Crawler Dragline Operator Relationship Specialty Start Date End Date Carola Arrington MD [address] [place] [phone] PCP - General Internal Medicine 12/19/20 documented as of this encounter"
--- OUTSIDE RECORDS SUMMARY | 2023-02-21 02:36 | External Medical Summary | Summary of Care ---
Author Name Unknown Organization [facility] Address [address] [place] [address] Phone [phone] Care Team Providers Care Production Maintenance Mechanic Name Role Phone Carola Arrington MD Primary Care Provider Reason for Visit * Reason Comments Appointment Encounter Details Date Type Department Care Team Description 10/23/2022 Pharmacy Pharmacy, [facility] [address] [place] [address] [facility] [address] [place] [address] Type 2 diabetes mellitus with stage 3b chronic kidney disease, without long-term current use of insulin ([facility])* Allergies No known active allergiesdocumented as of this encounter (statuses as of 10/23/2022) Medications Medication Sig Dispensed Refills Start Date [...] Information Patient taking differently: 25 Units Subcutaneous [id number], Reported on 09/30/2022 Isosorbide Mononitrate ER 120 MG Oral Tablet Extended Release 24 Hour (Imdur) TAKE 1 TABLET BY MOUTH EVERY MORNING 90 Tablet 1 06/14/2022 Active metFORMIN HCl ER 500 MG Oral Tablet Extended Release 24 Hour (Glucophage XR)Indications:DM type 2, goal A1C to be determined ([facility]) TAKE 3 TABLETS BY MOUTH EVERY [...] 2, goal A1C to be determined ([facility]) USE WITH INSULIN PEN EVERY DAY [...] as of this encounter (statuses as of 10/23/2022) Active Problems Problem Noted Date Type 2 diabetes mellitus wit h stage 3b chronic kidney disease, with long-term current use of insulin 08/09/2022 Enlarged aorta 08/09/2022 Hx of melanoma of skin 07/19/2021 Overview: Location: L upper back Year: 2016 Depth: MIS Treatment: WLE (positive margins on initial excision, then re-excised again with wider margins) 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 HTN, goal below 130/80 06/14/2009 2 Overview: Per HTN Taxonomy. Type 2 diabetes mellitus wit h hemoglobin A1c goal of less than 7.0% 03/02/2009 03/27/2011 Overview: Modified per Diabetes protocol #14. ICD-10 update of inactive term EXAMINATION OF PARTICIPANT IN CLINICAL TRIAL-gen omics 11/17/2008 09/01/2009 Overview: Renamed Per Clinical [employer] Billing Project. Study Titile: Genomic Markers for Patients with Cardiovascular Disease Project #[id number] PI: Francoise Tomlin MD Please call [phone] with study related questions INTERFACED RESULT 11/17/2008 10/17/2011 GENOMICS CARDIO RESEARCH OTHER*[id number] 200806/25/2016 Overview: Renamed Per Clinical Trials Billing Project. Study Titile: Genomic Markers for Patients with Cardiovascular Disease Project #[id number] PI: Francoise Tomlin MD Please call [phone] with study related questions CLASS I-II ANGINA [...] as of this encounter (statuses as of 10/23/2022) Immunizations Name Administration Dates Next Due Pneumococcal [...] Comments:quit 30 yrs ago, wh ile in [place] for 4 years Alcohol Use Standard Drinks/Week [...] as of this encounter Progress Notes * LALO Jimenez - 10/23/2022 10:19 AM EDT Patient Phone Numbers Left message on patients answering machine to schedule [facility] appointment for diabetes management. [facility] message sent --no Clinic will follow up again in 4 week(s). [Attempt # 2] Thank you, Isadora Lemus Author [facility] 10/23/2022,10:19 AM documented in this encounter Plan of Treatment Upcoming Encounters Date Type Specialty Care Team Description 10/25/2022 Office Visit Family Medicine Kay Bowie CRNP [address] [place] [address] 11/12/2022 Imaging Radiology 11/20/2022 Pharmacy Pharmacy [facility] [address] [place] [address] 11/25/2022 Office Visit Cardiology Azael Lozano MD [address] [place] [address] 02/12/2023 Office Visit Family Medicine Carola Arrington MD [address] [place] [address] 08/14/2023 Office Visit Dermatology Lyssa Gar MD [address] [place] [address], [place] [address] Health Maintenance Due Date Last Done Comments DXA Scan 1935 Zoster Vaccines (1 of 2) 1986 COVID-19 Vaccine (3 - Booster for Pfizer series) 09/20/2020 07/26/2020, 07/05/2020 COLONOSCOPY-EVERY 5 YRS AGES 18-100 03/20/2021 03/20/2016, 04/30/2010, 02/05/2002 CKD PHOS USE SMARTSET 36232 09/15/2021 04/3 , 04/18/2020, 04/27/2019, Additional history [...] Additional history exists CKD HGB USE SMARTSET 08684 10/01/202309/30, 09/27/2022, 01/26/2021, Additional history exists Pneumococcal [...] the patient have Health Care Power of Sales Professional Bilingual? Yes, not currently available Code Status History Code Status Date Activated Date Inactivated Comments Full Code 09/15/2009 2:06 PM 09/16/2009 8:49 PM This o rder reflects the patients wishes and were consensually agreed upon. Question Answer Comments Discussion of Advance Directives occurred with: Patient/Family Does the patient have a Living Will? No Does the patient have Health Care Power of Sales Professional Bilingual? No Full Code 11/25/2008 1:50 PM 11/29/2008 9:11 PM This order reflects the patients wishes and were consensually agreed upon. Question Answer Comments Discussion of Advance Directives occurred with: Patient Care Teams Production Maintenance Mechanic Relationship Specialty Start Date End Date Carola Arrington MD [address] [facility] [place] [address] PCP - General Internal Medicine 12/19/20 documented as of this encounter
--- OUTSIDE RECORDS SUMMARY | 2023-02-21 02:36 | External Medical Summary | Summary of Care ---
Author Name Unknown Organization [facility] Address [address] [place] [address] Phone [phone] Care Team Providers Care Bulk Folder Name Role Phone Caorla Arrington MD Primary Care Provider Reason for Visit * Reason Onset Date Comments Appointment 09/30/2022 Encounter Details Date Type Department Care Team Description 09/30/2022 Telephone Family Practice [facility] [address] [facility] [place] [address] Ben Wisdom CRNP [address] [place] [address] Appointment Allergies No known active allergiesdocumented as of this encounter (statuses as of 10/01/2022) Medications Medication Sig Dispensed Refills Start Date [...] to be determined ([facility]),Type 2 diabetes mellitus with stage 3b chronic kidney disease, without long-term current use of insulin (HCC) INJECT 22 UNITS SUBCUTANEOUSLY (UNDER THE SKIN) IN THE MORNING OR DIRECTED 15 mL 3 04/16/2022 Active Additional Information Patient taking differently: 25 Units Subcutaneous [id number], Reported on 09/30/2022 Isosorbide Mononitrate ER 120 [...] as of this encounter (statuses as of 10/01/2022) Active Problems Problem Noted Date Type 2 diabetes mellitus wit h stage 3b chronic kidney disease, with long-term current use of insulin 08/09/2022 Enlarged aorta 08/09/2022 Hx of melanoma of skin 07/19/2021 Overview: Location: L upper back Year: 2016 Depth: MIS Treatment: WLE (positive margins on initial excision, then re-excised again with wider margins) Staging: Stage 0 - [id number] - Melanoma in situ Type 2 diabetes [...] as of this encounter (statuses as of 10/01/2022) Resolved Problems Problem Noted Date Resolved Date [...] Aortic root 4.4 cm 4.29.2009 echo at [facility]. HTN, goal below 130/80 06/14/2009 2 Overview: Per HTN Taxonomy. Type 2 diabetes mellitus wit h hemoglobin A1c goal of less than 7.0% 03/02/2009 03/27/2011 Overview: Modified per Diabetes protocol #14. ICD-10 update of inactive term EXAMINATION OF PARTICIPANT IN CLINICAL TRIAL-gen omics 11/17/2008 09/01/2009 Overview: Renamed Per Clinical Trials Billing Project. Study Titile: Genomic Markers for Patients with Cardiovascular Disease Project #[id number] PI: Francoise Tomlin MD Please call [phone] with study related questions INTERFACED RESULT 11/17/2008 10/17/2011 GENOMICS CARDIO RESEARCH OTHER*[id number] 200806/25/2016 Overview: Renamed Per Clinical Trials Billing Project. Study Titile: Genomic Markers for Patients with Cardiovascular Disease Project #[id number] PI: Francoise Tomlin MD Please call [phone] with study related questions CLASS I-II ANGINA [...] as of this encounter (statuses as of 10/01/2022) Immunizations Name Administration Dates Next Due Pneumococcal [...] Comments:quit 30 yrs ago, wh ile in [place] for 4 years Alcohol Use Standard Drinks/Week [...] Miscellaneous Notes * Telephone Encounter - NERIS Moreau - 10/01/2022 10:04 AM EDT Pt Beatrice returning call Beatrice aware of appt's Chest Xray rescheduled for 11/12/22 at 9:00am Cardiology appt 10/08/22 at 11:15 am with Leonila Reaves * Telephone Encounter - NERIS French - 10/01/2022 9:58 AM EDT Unable to reach pt. Phone rings busy. Secured 10/08/22 at 1115 with Leonila. Please notify pt if pt returns call. * Telephone Encounter - NERIS Brower - 10/01/2022 9:26 AM EDT LM for patient to call back and reschedule xray for 6 weeks instead of on 10/03. Cardiology- can you please assist scheduling him a sooner appointment. Unable to find anything. Please see Ben`s office notes for any questions. * Telephone Encounter - Hipolito Montoya RN - 09/30/2022 4:15 PM EDT Scheduling: Per Ben, she wants patient to have his follow up chest x-ray in 6 weeks and a sooner cardiology follow up appointment - within this week or next week. Please see today's office note fordetails. documented in this encounter Plan of Treatment Upcoming Encounters Date Type Specialty Care Team Description 10/08/2022 Office Visit Cardiology Leonila Reaves CRNP [address] [place] [address] 10/09/2022 Office Visit Pharmacy [facility] [place] [address] [place] [address] 11/12/2022 Imaging Radiology 11/25/2022 Office Visit Cardiology Azael Lozano MD [address] [place] [address] 02/12/2023 Office Visit Family Medicine Carola Arrington MD [address] [place] [address] 08/14/2023 Office Visit Dermatology Lyssa Gar MD [address] [place] [address], [place] [address] Health Maintenance Due Date Last Done Comments DXA Scan 1935 Zoster Vaccines (1 of 2) 1986 COVID-19 Vaccine (3 - Booster for Pfizer series) 09/20/2020 07/26/2020, 07/05/2020 COLONOSCOPY-EVERY 5 YRS AGES 18-100 03/20/2021 03/20/2016, 04/30/2010, 02/05/2002 CKD PHOS USE SMARTSET 25183 09/15/2021 04/3 , 04/18/2020, 04/27/2019, Additional history exists Depression Screening, Annual for Pts 12 and Over 10/26/2021 10/26/2020 DTaP,Tdap,and Td Vaccines (2 - Td or Tdap) 07/10/2022 07/10/2012 DIABETES-FOOT EXAM 08/08/2022 08/08/2021, 1 06/28/2019, 04/27/2019, Additional history exists HgA1C 01/07/2023 07/10/2022, 07/01/2022, 08/08/2021, Additional history exists Influenza Vaccine (FLU shot) (Season Ended) 2023 02/21/2020, 03/02/2019, 03/01/2018, Additional history exists DIABETES-EYE EXAM 02/08/2023 02/08/2022, , 04/28/2013, Additional history exists Albumin/Creatinine Ratio 07/10/2023 023, 08/08/2021, 10/24/2016, Additional history exists Yearly B-12 07/10/2023 07/10/2022, 04/18, 04/18/2020, Additional history exists CKD HGB USE SMARTSET 12094 10/01/202309/30, 01/26/2021, 01/26/2021, Additional history exists Pneumococcal [...] the patient have Health Care Power of Health And Social Care Teacher? Yes, not currently available Code Status History Code Status Date Activated Date Inactivated Comments Full Code 09/15/2009 2:06 PM 09/16/2009 8:49 PM This o rder reflects the patients wishes and were consensually agreed upon. Question Answer Comments Discussion of Advance Directives occurred with: Patient/Family Does the patient have a Living Will? No Does the patient have Health Care Power of Health And Social Care Teacher? No Full Code 11/25/2008 1:50 PM 11/29/2008 9:11 PM This order reflects the patients wishes and were consensually agreed upon. Question Answer Comments Discussion of Advance Directives occurred with: Patient Care Teams Bulk Folder Relationship Specialty Start Date End Date Carola Arrington MD [address] [place] [address] PCP - General Internal Medicine 12/19/20 documented as of this encounter
--- OUTSIDE RECORDS SUMMARY | 2023-02-21 02:36 | External Medical Summary ---
Author Name Unknown Address Unknown Organization K01:[facility] - [address] [place] [address] Laboratory Report Ordering Provider Test Date Status RONAN BAEZ 10/25/2022 11:31:44 Final Observation Date Value Abnormality Reference (Units ) Status Magnesium 10/25/2022 11:31:44 2.1 1.5-2.6 (m g/dL) Final Performing Location [facility] - [address] [place] [address]
--- OUTSIDE RECORDS SUMMARY | 2023-02-21 02:36 | External Medical Summary ---
Author Name Unknown Address Unknown Organization K0G:[email or web address] - [address] [place] [address] Laboratory Report Ordering Provider Test Date Status LIYA GARRETT 10/25/2022 11:31:44 Final Observation Date Value Abnormality Reference (Units ) Status BUN 10/25/2022 11:31:44 31 Above high normal 6-20 (mg/dL) Final Creatinine 10/25/2022 11:31:44 1.5 Above high normal 0.6-1.2 (mg/dL) Final Glomerular filtration rate/1.73 sq M.predicted [Volume Rate/Area] in Serum, Plasma or Blood by Creatinine-based formula (CKD-EPI) 10/25/2022 11:31:44 46 Below low normal >=60 (mL/min) Final Performing Location [email or web address]-1 0 - [address] [place] [address]
--- OUTSIDE RECORDS SUMMARY | 2023-02-21 02:36 | External Medical Summary | Summary of Care ---
Author Name Unknown Organization [facility] Address [address] [place] [address] Phone [phone] Care Team Providers Care Show Dog Trainer Name Role Phone Carola Arrington MD Primary Care Provider Reason for Visit * Reason Comments Outpatient Testing Encounter Details Date Type Department Care Team Description 10/25/2022 Laboratory Laboratory, [facility] [address] [place] [id number] [facility] [address] [place] [address] Hyperkalemia; Hyponatremia; Low magnesium level Allergies No [...] 2, goal A1C to be determined ([facility]),Type 2 diabetes mellitus with stage 3b chronic kidney disease, without long-term current use of insulin ([facility]) INJECT 22 UNITS SUBCUTANEOUSLY (UNDER THE SKIN) IN THE MORNING OR DIRECTED 15 mL 3 04/16/2022 Active Additional Information Patient taking differently: 25 Units Subcutaneous [id number], Reported on 09/30/2022 Isosorbide Mononitrate ER 120 MG Oral Tablet Extended Release 24 Hour (Imdur) TAKE 1 TABLET BY MOUTH EVERY MORNING 90 Tablet 1 06/14/2022 Active metFORMIN HCl ER 500 MG Oral Tablet Extended Release 24 Hour (Glucophage XR)Indications:DM type 2, goal A1C to be determined ([facility]) TAKE 3 TABLETS BY MOUTH EVERY DAY WITH FOOD 270 Tablet 1 07/04/2022 Active Additional Information Patient taking differently: TAKE 1 TABLET BY MOUTH IN THE MORNING AND 2 TABLETS IN THE EVENING WITH FOOD, Reported on 09/30/2022 Clopidogrel Bisulfate 75 MG Oral Tablet (pLAVix)Indication s:Aortocoronary bypass status,Acute coronary syndrome (HCC),Chronic coronary artery disease,Enlarged aorta ([facility]) TAKE 1 TABLET BY MOUTH EVERY DAY 100 Tablet 1 07/24/2022 Active BD Pen Needle Emperatriz 2nd Gen 32G X 4 MM (Insulin Pen Needle)Indications :Type 2 diabetes mellitus with stage 3b chronic kidney disease, without long-term current use of insulin ([facility]),DM type 2, goal A1C to be determined ([facility]) USE WITH INSULIN PEN EVERY DAY 100 Each 1 07/24/2022 Active Ranolazine ER 1000 MG Oral Tablet Extended Release 12 HourIndications:Ch est pain,Unstable angina ([facility]) TAKE 1 TABLET TWICE A DAY 180 Tablet 3 08/27/2022 Active Amiodarone HCl 200 MG Oral Tablet (Cordarone) TAPER DIRECTED TAKE 1 TABLET BY MOUTH TWO TIMES DAILY FOR 7 DAYS THEN TAKE TAKE 1 TABLET BY MOUTH EVERY DAY 0 09/27/2022 Active documented as of this encounter (statuses as of 10/25/2022) Active Problems Problem Noted Date Type 2 diabetes mellitus wit h stage 3b chronic kidney disease, with long-term current use of insulin 08/09/2022 Enlarged aorta 08/09/2022 Hx of melanoma of skin 07/19/2021 Overview: Location: L upper back Year: 2016 Depth: MIS Treatment: WLE (positive margins on initial excision, then re-excised again with wider margins) Staging: Stage 0 - [id number] - Melanoma in situ Type 2 diabetes [...] Markers for Patients with Cardiovascular Disease Project #[id number] PI: Francoise Tomlin MD Please call [phone] with study related questions INTERFACED RESULT 11/17/2008 10/17/2011 GENOMICS CARDIO RESEARCH OTHER*[id number] 200806/25/2016 Overview: Renamed Per Clinical Trials Billing Project. Study Titile: Genomic Markers for Patients with Cardiovascular Disease Project #[id number] PI: Francoise Tomlin MD Please call [phone] with study related questions CLASS I-II ANGINA [...] Comments:quit 30 yrs ago, wh ile in [place] 4 years Alcohol Use Standard Drinks/Week [...] Specialty Care Team Description 11/20/2022 Pharmacy Pharmacy [facility] [address] [place] [address] 11/25/2022 Office Visit Cardiology Azael Lozano MD [address] [place] [address] 02/12/2023 Office Visit Family Medicine Carola Arrington MD [address] [place] [address] 08/14/2023 Office Visit Dermatology Lyssa Gar MD [address] [place] [address] Pending Results Name Type Priority Associated Diagnoses Date /Time BASIC METABOLIC PANEL Lab Routine Hyperkalemia 10/25/2022 11:31 AM EDT MAGNESIUM Lab Routine Low magnesium level 10/25/2022 11:31 AM EDT Health Maintenance Due Date Last Done Comments DXA Scan 1935 Zoster Vaccines (1 of 2) 1986 COVID-19 Vaccine (3 - Pfizer series) 09/20/2020 07/26/2020, 07/05/2020 COLONOSCOPY-EVERY 5 YRS AGES 18-100 03/20/2021 03/20/2016, 04/30/2010, 02/05/2002 CKD PHOS USE SMARTSET 13339 09/15/2021 04/3 , 04/18/2020, 04/27/2019, Additional history [...] Additional history exists CKD HGB USE SMARTSET 02776 10/01/202309/30, 09/27/2022, 01/26/2021, Additional history exists Pneumococcal [...] as of this encounter Visit Diagnoses Diagnosis Hyperkalemia Hyperpotassemia [...] the patient have Health Care Power of Chief Orthoptist? Yes, not currently available Code Status History Code Status Date Activated Date Inactivated Comments Full Code 09/15/2009 2:06 PM 09/16/2009 8:49 PM This o rder reflects the patients wishes and were consensually agreed upon. Question Answer Comments Discussion of Advance Directives occurred with: Patient/Family Does the patient have a Living Will? No Does the patient have Health Care Power of Chief Orthoptist? No Full Code 11/25/2008 1:50 PM 11/29/2008 9:11 PM This order reflects the patients wishes and were consensually agreed upon. Question Answer Comments Discussion of Advance Directives occurred with: Patient Care Teams Show Dog Trainer Relationship Specialty Start Date End Date Carola Arrington MD [address] [place] [address] PCP - General Internal Medicine 12/19/20 documented as of this encounter
--- OUTSIDE RECORDS SUMMARY | 2023-02-21 02:36 | External Medical Summary | Summary of Care ---
Author Name Unknown Organization [facility] Address [address] [place] [address] Phone [phone] Care Team Providers Care Credit Representative Name Role Phone Carola Arrington MD Primary Care Provider Encounter Details Date Type Department Care Team Description 10/08/2022 Orders Only Family Practice [facility] [address] [place] [address] Carola Arrington MD [address] [place] [address] Allergies No known active allergiesdocumented as of this encounter (statuses as of 10/08/2022) Medications Medication Sig Dispensed Refills Start Date [...] Information Patient taking differently: 25 Units Subcutaneous [id number], Reported on 09/30/2022 Isosorbide Mononitrate ER 120 MG Oral Tablet Extended Release 24 Hour (Imdur) TAKE 1 TABLET BY MOUTH EVERY MORNING 90 Tablet 1 06/14/2022 Active metFORMIN HCl ER 500 MG Oral Tablet Extended Release 24 Hour (Glucophage XR)Indications:DM type 2, goal A1C to be determined ([facility]) TAKE 3 TABLETS BY MOUTH EVERY [...] goal A1C to be determined ([facility]) USE WITH INSULIN PEN EVERY DAY [...] as of this encounter (statuses as of 10/08/2022) Active Problems Problem Noted Date Type 2 diabetes mellitus wit h stage 3b chronic kidney disease, with long-term current use of insulin 08/09/2022 Enlarged aorta 08/09/2022 Hx of melanoma of skin 07/19/2021 Overview: Location: L upper back Year: 2016 Depth: MIS Treatment: WLE (positive margins on initial excision, then re-excised again with wider margins) Staging: Stage 0 - [id number] - Melanoma in situ Type 2 diabetes [...] as of this encounter (statuses as of 10/08/2022) Resolved Problems Problem Noted Date Resolved Date [...] Markers for Patients with Cardiovascular Disease Project #[id number] PI: Francoise Tomlin MD Please call [phone] with study related questions INTERFACED RESULT 11/17/2008 10/17/2011 GENOMICS CARDIO RESEARCH OTHER*[id number] 200806/25/2016 Overview: Renamed Per Clinical Trials Billing Project. Study Titile: Genomic Markers for Patients with Cardiovascular Disease Project #[id number] PI: Francoise Tomlin MD Please call [phone] with study related questions CLASS I-II ANGINA [...] as of this encounter (statuses as of 10/08/2022) Immunizations Name Administration Dates Next Due Pneumococcal [...] Comments:quit 30 yrs ago, wh ile in [place] for 4 years Alcohol Use Standard Drinks/Week [...] Encounters Date Type Specialty Care Team Description 10/09/2022 Office Visit Pharmacy [facility] [address] [place] [address] 11/12/2022 Imaging Radiology 11/25/2022 Office Visit Cardiology Azael Lozano MD [address] [place] [address] 02/12/2023 Office Visit Family Medicine Carola Arrington MD [address] [place] [address] 08/14/2023 Office Visit Dermatology Lyssa Gar MD [address] [place] [address], [place] [address] Health Maintenance Due Date Last Done Comments DXA Scan 1935 Zoster Vaccines (1 of 2) 1986 COVID-19 Vaccine (3 - Booster for Pfizer series) 09/20/2020 07/26/2020, 07/05/2020 COLONOSCOPY-EVERY 5 YRS AGES 18-100 03/20/2021 03/20/2016, 04/30/2010, 02/05/2002 CKD PHOS USE SMARTSET 64467 09/15/2021 04/3 , 04/18/2020, 04/27/2019, Additional history exists Depression Screening, Annual for Pts 12 and Over 10/26/2021 10/26/2020 DTaP,Tdap,and Td Vaccines (2 - Td or Tdap) 07/10/2022 07/10/2012 DIABETES-FOOT EXAM 08/08/2022 08/08/2021, 1 06/28/2019, 04/27/2019, Additional history exists HbA1c 01/07/2023 07/10/2022, 0701/2022, 08/08/2021, Additional history exists Influenza Vaccine (FLU shot) (Season Ended) 2023 02/21/2020, 03/02/2019, 03/01/2018, Additional history exists DIABETES-EYE EXAM 02/08/2023 02/08/2022, , 04/28/2013, Additional history exists Albumin/Creatinine Ratio 07/10/2023 023, 08/08/2021, 10/24/2016, Additional history exists Yearly B-12 07/10/2023 07/10/2022, 04/18, 04/18/2020, Additional history exists CKD HGB USE SMARTSET 70903 10/01/202309/30, 09/27/2022, 01/26/2021, Additional history exists Pneumococcal [...] Procedure Name Priority Date/Time Associated Diagnosis Comments CHEMISTRY-OUTSIDE Routine 09/27/2022 OUTSIDE LAB-CORONAVIRUS (COVID-19) Routine 09/23/2022 TSH Routine 09/23/2022 documented in this encounter Results * (ABNORMAL) CHEMISTRY-OUTSIDE (09/27/2022) Not all results display below - see scan for full detail OUTSIDE LAB (SEE SCANNED REPORT) Comment:[facility]-09/24/22-09/27/22- CBC,PTT,PTTR,UR,BMP,MG,CMP,TROP I,ALB,GOLB,B12,FERRITIN,BILI,UR OSMO,BSG,PROCALCITONIN,,VBG,RESP PANEL,URINE CULTURE CREATININE-OUTSID E LAB 1.29 0.6 - 1.4 MG/DL OUTSIDE LAB (SEE SCANNED REPORT) EGFR-OUTSIDE LAB 49.9 ML/MIN OUT SIDE LAB (SEE SCANNED REPORT) POTASSIUM-OUTSIDE LAB 4.4 3.5 - 5.1 MMOL OUTSIDE LAB (SEE SCANNED REPORT) GLUCOSE-OUTSIDE LAB 218(A) 70 - 99 MG/DL OUTSIDE LAB (SEE SCANNED REPORT) HOURS FASTING OUTSID E LAB (SEE SCANNED REPORT) TRIGLYCERIDES-OUT SIDE LAB OUTSIDE LAB (SEE SCANNED REPORT) CHOLESTEROL-OUTSI DE LAB OUTSIDE LAB (SEE SCANNED REPORT) HDL-OUTSIDE LAB OUTS MONIE LAB (SEE SCANNED REPORT) CHOL/HDL RATIO-OUTSIDE LAB OUTSIDE LA B (SEE SCANNED REPORT) LDL (CALCULATED)-OUTS MONIE LAB OUTSIDE LAB (SEE SCANNED REPORT) LDL (DIRECT MEASURE)-OUTSIDE LAB OUTSIDE LAB (SEE SCANNED REPORT) HEMOGLOBIN, [id number] LAB OUTSIDE LAB (SEE SCANNED REPORT) PHOSPHORUS-OUTSID E LAB OUTSIDE LAB (SEE SCANNED REPORT) PTH-OUTSIDE LAB OUTS MONIE LAB (SEE SCANNED REPORT) MICROALBUMIN RATIO-OUTSIDE LAB OUTSIDE LA B (SEE SCANNED REPORT) PROTEIN, UA-OUTSIDE LAB OUTSIDE LAB (SEE SCANNED REPORT) HEMOGLOBIN-OUTSID E LAB 11.6(A) 14 - 18 G/DL OUTSIDE LAB (SEE SCANNED REPORT) 09/27/2022 History Per Patient LABORATORY Performing Organization Address City/[facility] Co de Phone Number OUTSIDE LAB (SEE SCANNED REPORT) * TSH (09/23/2022) TSH - OUTSIDE LAB 3.046 0.300 - 4.500 UIU/ML OUTSIDE LAB (SEE SCANNED REPORT) Blood Venous blood specimen / Unknown 09/23/2022 History Per Patient LAB BLOOD ORDERABLES Performing Organization Address City/[facility] Co de Phone Number OUTSIDE LAB (SEE SCANNED REPORT) * OUTSIDE LAB-CORONAVIRUS (COVID-19) (09/23/2022) [id number] E LAB NEGATIVE NEGATIVE OUTSIDE LAB (SEE SCANNED REPORT) 09/23/2022 History Per Patient LABORATORY OUTSIDE LAB (SEE SCANNED REPORT) documented in this encounter Advance Directives Latest [...] the patient have Health Care Power of Reeling And Tubing Machine Operator? Yes, not currently available Code Status History Code Status Date Activated Date Inactivated Comments Full Code 09/15/2009 2:06 PM 09/16/2009 8:49 PM This o rder reflects the patients wishes and were consensually agreed upon. Question Answer Comments Discussion of Advance Directives occurred with: Patient/Family Does the patient have a Living Will? No Does the patient have Health Care Power of Reeling And Tubing Machine Operator? No Full Code 11/25/2008 1:50 PM 11/29/2008 9:11 PM This order reflects the patients wishes and were consensually agreed upon. Question Answer Comments Discussion of Advance Directives occurred with: Patient Care Teams Credit Representative Relationship Specialty Start Date End Date Carola Arrington MD [address] [facility] [place] [address] PCP - General Internal Medicine 12/19/20 documented as of this encounter
--- OUTSIDE RECORDS SUMMARY | 2023-02-21 02:37 | External Medical Summary | Summary of Care ---
Author Name Unknown Organization [facility] Address [address] [place] [address] Phone [phone] Care Team Providers Care Rolled Gold Plater Name Role Phone Carola Arrington MD Primary Care Provider Reason for Visit * Reason Comments Follow Up 6 month recheck, doi ng well with no concerns Encounter Details Date Type Department Care Team Description 08/09/2022 Office Visit [facility] [address] [facility] [address] Carola Arrington MD [address] [facility] [place] [address] Type 2 diabetes mellitus with stage 3a chronic kidney disease, with long-term current use of insulin (HCC)*; Stage 3a chronic kidney disease (HCC); Enlarged aorta (HCC); Stable angina (HCC); Hx of melanoma of skin Allergies No known active allergiesdocumented as of this encounter (statuses as of 08/09/2022) Medications Medication Sig Dispensed Refills Start Date [...] the morning. 90 Tablet 4 08/22/2021 Active Ranolazine ER 1000 MG Oral Tablet Extended Release 12 HourIndications:Ch est pain,Unstable angina (HCC) TAKE 1 TABLET TWICE A DAY 180 Tablet 3 08/30/2021 Active amLODIPine Besylate 5 MG Oral Tablet (Norvasc)Indicatio ns:HTN, goal below 130/80 TAKE 1 TABLET BY MOUTH EVERY DAY 90 Tablet 3 03/14/2022 Active Lantus SoloStar 100 UNIT/ML Subcutaneous Solution Pen-injector (Insulin Glargine Solostar)Indicatio ns:DM type 2, goal A1C to be determined ([facility]),Type 2 diabetes mellitus with stage 3b chronic kidney disease, without long-term current use of insulin ([facility]) INJECT 22 UNITS SUBCUTANEOUSLY (UNDER THE SKIN) IN THE MORNING OR DIRECTED 15 mL 3 04/16/2022 Active Isosorbide Mononitrate ER 120 MG Oral Tablet Extended Release 24 Hour (Imdur) TAKE 1 TABLET BY MOUTH EVERY MORNING 90 Tablet 1 06/14/2022 Active metFORMIN HCl ER 500 MG Oral Tablet Extended Release 24 Hour (Glucophage XR)Indications:DM type 2, goal A1C to be determined ([facility]) TAKE 3 TABLETS BY MOUTH EVERY DAY WITH FOOD 270 Tablet 1 07/04/2022 Active Losartan Potassium 50 MG Oral Tablet (Cozaar)Indication s:HTN, goal below 130/80,Chronic coronary artery disease TAKE 2 TABLETS BY MOUTH EVERY DAY 180 Tablet 3 07/12/2022 Active Clopidogrel Bisulfate 75 MG Oral Tablet (pLAVix)Indication s:Aortocoronary bypass status,Acute coronary syndrome (HCC),Chronic coronary artery disease,Enlarged aorta ([facility]) TAKE 1 TABLET BY MOUTH EVERY DAY 100 Tablet 1 07/24/2022 Active BD Pen Needle Emperatriz 2nd Gen 32G X 4 MM (Insulin Pen Needle)Indications :Type 2 diabetes mellitus with stage 3b chronic kidney disease, without long-term current use of insulin (HCC),DM type 2, goal A1C to be determined ([facility]) USE WITH INSULIN PEN EVERY DAY 100 Each 1 07/24/2022 Active Metoprolol Succinate ER 25 MG Oral Tablet Extended Release 24 Hour (toPROL XL)Indications:Chr onic coronary artery disease,Aortocoron jovanna bypass status,HTN, goal below 140/90 TAKE 2 TABLETS BY MOUTH EVERY DAY 180 Tablet 3 08/05/2022 Active documented as of this encounter (statuses as of 08/09/2022) Active Problems Problem Noted Date Stage 3a chronic kidney disease 08/10/19 Type 2 diabetes mellitus wit h stage 3b chronic kidney disease, with long-term current use of insulin 08/09/2022 Enlarged aorta 08/09/2022 Hx of melanoma of skin 07/19/2021 Overview: Location: L upper back Year: 2016 Depth: MIS Treatment: WLE (positive margins on initial excision, then re-excised again with wider margins) Staging: Stage 0 - [id number] - Melanoma in situ Type 2 diabetes [...] as of this encounter (statuses as of 08/09/2022) Resolved Problems Problem Noted Date Resolved Date Hypertensive kidney disease with chronic kidney disease [...] Aortic root 4.4 cm 4.29.2009 echo at [facility]. HTN, goal below 130/80 06/14/2009 [...] Markers for Patients with Cardiovascular Disease Project #[id number] PI: Francoise Tomlin MD Please call [phone] with study related questions INTERFACED RESULT 11/17/2008 10/17/2011 GENOMICS CARDIO RESEARCH OTHER*[id number] 200806/25/2016 Overview: Renamed Per Clinical Trials Billing Project. Study Titile: Genomic Markers for Patients with Cardiovascular Disease Project #[id number] PI: Francoise Tomlin MD Please call [phone] with study related questions CLASS I-II ANGINA [...] as of this encounter (statuses as of 08/09/2022) Immunizations Name Administration Dates Next Due Pneumococcal [...] Comments:quit 30 yrs ago, wh ile in [employer] for 4 years Alcohol Use Standard Drinks/Week [...] Sign Reading Time Taken Comments Blood Pressure 110/62 08/09/2022 10:04 AM EDT Pulse 59 08/09/2022 10:04 AM EDT Temperature 36.3 C (97.3 F) 08/09/2022 10:04 AM E DT Respiratory Rate 18 08/09/2022 10:04 AM EDT Oxygen Saturation 97% 08/09/2022 10:04 AM EDT Inhaled Oxygen Concentration - - Weight 70.5 kg (155 lb 6.4 oz) 08/09/2022 10:04 AM EDT Height 180.3 cm (5' 11") 08/09/2022 10:04 AM EDT Body Mass Index 21.67 08/09/2022 10:04 AM EDT documented in this encounter Patient Instructions * Patient Instructions* Carola Arrington MD - 08/09/2022 10:39 AM EDT Consider removing throw rugs, especially those with tassels, as they are a trip hazard. We don't want you tripping and breaking a hip. Consider grab bars in bathroom and next to toilet. Definitely keep using the rubber mat in the bathtub. Make sure all hand rails are sturdy and well attached. documented in this encounter Progress Notes * Carola Arrington MD - 08/09/2022 10:15 AM EDT Images from the original note were not included. History of Present Illness Dirk Garcia is a 87 year old male that presents for Follow Up (6 month recheck, doing well with no concerns) T2DM: Increase Lantus to 25 units, working with MTM CAD: Cardiology visit in May, no changes, follow-up in November. CKD3: Elevated microalbumin. On an Arb. Improving blood sugar control. Derm: Saw Dr. Gar yesterday. Two lesions removed. Two falls, not sure what happened. Occasional dizziness with standing, okay if takes time. A few falls. Has sturdy railing going into basement, only one step into house. Can get on/off toilet okay. Grippy mat in bathtub. Does have throw rugs with tassels, likes them. Goes to voodoo occasionally. Nicotine: none Alcohol: none medication and allergy list reviewed Past medical history and problem list reviewed Physical Exam Vitals: 08/09/22 1004 Temp: 36.3 C (97.3 F) Pulse: 59 Resp: 18 SpO2: 97% BP: 110/62 BMI: 21.68 BP Readings from Last 3 Encounters: 08/09/22 110/62 05/22/22 106/64 02/08/22 150/62 Wt Readings from Last 3 Encounters: 08/09/22 70.5 kg (155 lb 6.4 oz) 05/22/22 69.6 kg (153 lb 6.4 oz) 02/08/22 69 kg (152 lb 3.2 oz) Physical Exam Vitals and nursing note reviewed. Constitutional: General: He is not in acute distress. Appearance: Normal appearance. He is not ill-appearing. HENT: Head: Normocephalic and atraumatic. Right Ear: Tympanic membrane, ear canal and external ear normal. There is no impacted cerumen. Left Ear: Tympanic membrane, ear canal and external ear normal. There is no impacted cerumen. Nose: Nose normal. Mouth/Throat: Mouth: Mucous membranes are moist. Pharynx: Oropharynx is clear. No oropharyngeal exudate. Eyes: General: No scleral icterus. Right eye: No discharge. Left eye: No discharge. Conjunctiva/sclera: Conjunctivae normal. Pupils: Pupils are equal, round, and reactive to light. Neck: Thyroid: No thyroid mass, thyromegaly or thyroid tenderness. Cardiovascular: Rate and Rhythm: Normal rate and regular rhythm. Heart sounds: No murmur heard. Pulmonary: Effort: Pulmonary effort is normal. Breath sounds: Normal breath sounds. Lymphadenopathy: Cervical: No cervical adenopathy. Skin: General: Skin is warm and dry. Neurological: Mental Status: He is alert. I have reviewed the following results: CMP, Lipid Panel, Hemoglobin A1C, TSH, CBC, B12 and Albumin / Creatinine Ratio, Urine ECHO Assessment and Plan Type 2 diabetes mellitus with stage 3a chronic kidney disease, with long-term current use of insulin (HCC) Continue working with MTM, explained that improved sugars will help protect kidneys. Stage 3a chronic kidney disease (HCC) Decline Nephrology referral which I think is reasonable. Blood pressure at goal, on an Arb. Continue to work on blood sugar control. Could benefit from SGLT-2 agonist, but cost will be a barrier. Enlarged aorta (HCC) Stable angina (HCC) Stable, following cardiology Hx of melanoma of skin Up-to-date with Dermatology Wrap-Up Follow Up: Return in about 6 months (around 02/09/2023) for Return with [facility]. | For: Return with [facility] Time: I spent a total of 20-29 minutes (exact time 29 mins) on the date of service in preparation, delivery, and documentation of the care provided to Dirk Garcia excluding any time spent in theperformance of separately billed services. documented in this encounter Plan of Treatment Upcoming Encounters Date Type Specialty Care Team Description 10/09/2022 Office Visit Pharmacy [facility] [address] [place] [address] 11/25/2022 Office Visit Cardiology Azael Lozano MD [address] [place] [address] 02/12/2023 Office Visit Family Medicine Carola Arrington MD [address] [place] [address] 08/14/2023 Office Visit Dermatology Lyssa aGr MD [address] [place] [address], [place] [address] Health Maintenance Due Date Last Done Comments DXA Scan 1935 COVID-19 Vaccine (#1) 1935 Zoster Vaccines (1 of 2) 1986 COLONOSCOPY-EVERY 5 YRS AGES 18-100 03/20/2021 03/20/2016, 04/30/2010, 02/05/2002 CKD PHOS USE SMARTSET 52771 09/15/2021 04/3 , 04/18/2020, 04/27/2019, Additional history exists Depression Screening, Annual for Pts 12 and Over 10/26/2021 10/26/2020 Influenza Vaccine (FLU shot) (#1) 2022 02/21/2020, 03/02/2019, 03/01/2018, Additional history exists CKD HGB USE SMARTSET 89638 01/26/202201/26, 01/26/2021, 09/15/2020, Additional history exists DTaP,Tdap,and Td Vaccines (2 - Td or Tdap) 07/10/2022 07/10/2012 DIABETES-FOOT EXAM 08/08/2022 08/08/2021, 1 06/28/2019, 04/27/2019, Additional history exists HgA1C 01/07/2023 07/10/2022, 11/16, 08/08/2021, Additional history exists DIABETES-EYE EXAM 02/08/2023 02/08/2022, [...] Diagnosis Type 2 diabetes mellitus with stage 3a chronic kidney disease, with long-term current use of insulin (HCC)- Primary Stage 3a chronic kidney disease (HCC) Enlarged aorta (HCC) Other specified disorders of arteries and arterioles Stable angina (HCC) Other and unspecified angina pectoris Hx of melanoma of skin Personal history of malignant melanoma of skin documented in this encounter Advance Directives Latest [...] patient have Health Care Power of Automotive Alignment Specialist? Yes, not currently available Code Status History Code Status Date Activated Date Inactivated Comments Full Code 09/15/2009 2:06 PM 09/16/2009 8:49 PM This o rder reflects the patients wishes and were consensually agreed upon. Question Answer Comments Discussion of Advance Directives occurred with: Patient/Family Does the patient have a Living Will? No Does the patient have Health Care Power of Automotive Alignment Specialist? No Full Code 11/25/2008 1:50 PM 11/29/2008 9:11 PM This order reflects the patients wishes and were consensually agreed upon. Question Answer Comments Discussion of Advance Directives occurred with: Patient Care Teams Rolled Gold Plater Relationship Specialty Start Date End Date Carola Arrington MD [address] [place] [address] PCP - General Internal Medicine 12/19/20 documented as of this encounter
--- OUTSIDE RECORDS SUMMARY | 2023-02-21 02:37 | External Medical Summary | Summary of Care ---
Author Name Unknown Organization [facility] Address [address] [place] [address] Phone [phone] Care Team Providers Care Unit Operator Name Role Phone Carola Arrington MD Primary Care Provider Reason for Visit * Reason Comments Outpatient Testing Encounter Details Date Type Department Care Team Description 09/30/2022 Laboratory Laboratory, [facility] [address] [place] [id number] [facility] [address] [place] [address] Encounter for long-term (current) use of medications; Hyponatremia Allergies No known active allergiesdocumented as of [...] Information Patient taking differently: 25 Units Subcutaneous [id number], Reported on 09/30/2022 Isosorbide Mononitrate ER 120 MG Oral Tablet Extended Release 24 Hour (Imdur) TAKE 1 TABLET BY MOUTH EVERY MORNING 90 Tablet 1 06/14/2022 Active metFORMIN HCl ER 500 MG Oral Tablet Extended Release 24 Hour (Glucophage XR)Indications:DM type 2, goal A1C to be determined ([facility]) TAKE 3 TABLETS BY MOUTH EVERY DAY [...] 2, goal A1C to be determined ([facility]) USE WITH INSULIN PEN EVERY DAY 100 [...] with wider margins) Staging: Stage 0 - [id number] - Melanoma in situ Type 2 diabetes [...] Aortic root 4.4 cm 4.29.2009 echo at [facility]. HTN, goal below 130/80 06/14/2009 2 Overview: Per HTN Taxonomy. Type 2 diabetes mellitus wit h hemoglobin A1c goal of less than 7.0% 03/02/2009 03/27/2011 Overview: Modified per Diabetes protocol #14. ICD-10 update of inactive term EXAMINATION OF PARTICIPANT IN CLINICAL TRIAL-gen omics 11/17/2008 09/01/2009 Overview: Renamed Per Clinical Trials Billing Project. Study Titile: Genomic Markers for Patients with Cardiovascular Disease Project #[id number] PI: Francoise Tomlin MD Please call [phone] with study related questions INTERFACED RESULT 11/17/2008 10/17/2011 GENOMICS CARDIO RESEARCH OTHER*[id number] 200806/25/2016 Overview: Renamed Per Clinical Trials Billing Project. Study Titile: Genomic Markers for Patients with Cardiovascular Disease Project #[id number] PI: Francoise Tomlin MD Please call [phone] with study related questions CLASS I-II ANGINA [...] Comments:quit 30 yrs ago, wh ile in [employer] for 4 years Alcohol Use Standard Drinks/Week [...] 10/03/2022 Imaging Radiology 10/09/2022 Office Visit Pharmacy [facility] [address] [place] [address] 11/25/2022 Office Visit Cardiology Azael Lozano MD [address] [place] [address] 02/12/2023 Office Visit Family Medicine Carola Arrington MD [address] [place] [address] 08/14/2023 Office Visit Dermatology Lyssa Gar MD [address] [place] [address] Pending Results Name Type Priority Associated Diagnoses Date /Time CBC Lab Routine Encounter for long-term (current) use of medications 09/30/2022 4:10 PM EDT BASIC METABOLIC PANEL Lab Routine Hyponatremia 09/30/2022 4:10 PM EDT Health Maintenance Due Date Last Done Comments DXA Scan 1935 COVID-19 Vaccine (#1) 1935 Zoster Vaccines (1 of 2) 1986 COLONOSCOPY-EVERY 5 YRS AGES 18-100 03/20/2021 03/20/2016, 04/30/2010, 02/05/2002 CKD PHOS USE SMARTSET 65599 09/15/2021 04/3 , 04/18/2020, 04/27/2019, Additional history exists Depression Screening, Annual for Pts 12 and Over 10/26/2021 10/26/2020 CKD HGB USE SMARTSET 15269 01/26/202201/26, 01/26/2021, 09/15/2020, Additional history exists DTaP,Tdap,and [...] this encounter Visit Diagnoses Diagnosis Encounter for long-term (current) use of medications Encounter for long-term (current) use of other medications Hyponatremia Hyposmolality and/or hyponatremia documented in this encounter Advance Directives Latest [...] patient have Health Care Power of Manager Highway? Yes, not currently available Code Status History Code Status Date Activated Date Inactivated Comments Full Code 09/15/2009 2:06 PM 09/16/2009 8:49 PM This o rder reflects the patients wishes and were consensually agreed upon. Question Answer Comments Discussion of Advance Directives occurred with: Patient/Family Does the patient have a Living Will? No Does the patient have Health Care Power of Manager Highway? No Full Code 11/25/2008 1:50 PM 11/29/2008 9:11 PM This order reflects the patients wishes and were consensually agreed upon. Question Answer Comments Discussion of Advance Directives occurred with: Patient Care Teams Unit Operator Relationship Specialty Start Date End Date Carola Arrington MD [address] [place] [address] PCP - General Internal Medicine 12/19/20 documented as of this encounter
--- OUTSIDE RECORDS SUMMARY | 2023-02-21 02:37 | External Medical Summary ---
Author Name Unknown Address Unknown Organization [id number]:[facility] [place] [address] [facility] [address] Laboratory Report Ordering Provider Test Date Status KING VASQUEZ 09/30/2022 16:10:32 Final Observation Date Value Abnormality Reference (Units ) Status WBC, Total 09/30/2022 16:10:32 10.60 4.00-10.80 (K/uL) Final RBC 09/30/2022 16:10:32 3.91 4.50-5.25 (M/uL) Final Hemoglobin 09/30/2022 16:10:32 13.0 Below low normal 14.0-16.8 (g/dL) Final HCT 09/30/2022 16:10:32 38.8 Below low normal 40.0-48.4 (%) Final MCV 09/30/2022 16:10:32 99.2 82.0-99.5 (fL) Final MCH 09/30/2022 16:10:32 33.2 27.0-34.0 (pg) Final MCHC 09/30/2022 16:10:32 33.5 32.0-36.0 (g/dL) Final RDW 09/30/2022 16:10:32 12.7 11.5-15.5 (%) Final Platelets 09/30/2022 16:10:32 205 140-400 (K/uL) Final MPV 09/30/2022 16:10:32 9.7 6.6-11.1 (fL) Final Nucleated erythrocytes/100 leukocytes [Ratio] in Blood by Automated count 09/30/2022 16:10:32 0 <=0 (/100 WBCs) Final Performing Location [facility] [place] [address] [place] [address]
--- OUTSIDE RECORDS SUMMARY | 2023-02-21 02:37 | External Medical Summary | Summary of Care ---
Author Name Unknown Organization [facility] Address [address] [place] [address] Phone [phone] Care Team Providers Care Posting Clerk Name Role Phone Carola Arrington MD Primary Care Provider Reason for Visit * Reason Comments eRx-Medication Refill Encounter Details Date Type Department Care Team Description 08/26/2022 Refill Cardiology, [facility] [address] [facility] [place] [address] Sushila Lozano MD [address] [facility] [place] [address] Chest pain; Unstable angina (HCC) Allergies No known active allergiesdocumented as of this encounter (statuses as of 08/27/2022) Medications Medication Sig Dispensed Refills Start Date End Date Status aspirin 81 MG chewable tablet Take 1 Tablet by mouth in the morning. 34 Tab 11 8 Active nitroglycerin (NITROSTAT) 0.4 MG SUBLIndications: Chronic coronary artery disease DISSOLVE 1 TABLET UNDER THE TONGUE EVERY 5 MINUTES FOR CHEST PAIN. UP TO 3 DOSES IN 15 MINUTES. 25 Tab 1 9 Active Rosuvastatin Calcium 20 MG Oral Tablet (Crestor)Indicat ions:Dyslipidemi a, goal LDL below 70,Dyslipidemia, goal LDL below 160,Mixed dyslipidemia Take by mouth 1 Tablet in the morning. 90 Tablet 4 2 Active amLODIPine Besylate 5 MG Oral Tablet [...] OR DIRECTED 15 mL 3 2 Active Isosorbide Mononitrate ER 120 MG Oral Tablet Extended Release 24 Hour (Imdur) TAKE 1 TABLET BY MOUTH EVERY MORNING 90 Tablet 1 3 Active metFORMIN HCl ER 500 MG Oral Tablet Extended Release 24 Hour (Glucophage XR)Indications:D M type 2, goal A1C to be determined ([facility]) TAKE 3 TABLETS BY MOUTH EVERY DAY WITH FOOD 270 Tablet 1 3 Active Losartan Potassium 50 MG Oral Tablet (Cozaar)Indicati ons:HTN, goal below 130/80,Chronic coronary artery disease TAKE 2 TABLETS BY MOUTH EVERY DAY 180 Tablet 3 3 Active Clopidogrel Bisulfate 75 MG Oral Tablet (pLAVix)Indicati [...] goal A1C to be determined ([facility]) USE WITH INSULIN PEN EVERY DAY 100 Each 1 3 Active Metoprolol Succinate ER 25 MG Oral Tablet Extended Release 24 Hour (toPROL XL)Indications:C hronic coronary artery disease,Aortocor onary bypass status,HTN, goal below 140/90 TAKE 2 TABLETS BY MOUTH EVERY DAY 180 Tablet 3 3 Active Ranolazine ER 1000 MG Oral Tablet Extended Release 12 HourIndications: Chest pain,Unstable angina (HCC) TAKE 1 TABLET TWICE A DAY 180 Tablet 3 3 Active Ranolazine ER 1000 MG Oral Tablet Extended Release 12 HourIndications: Chest pain,Unstable angina (HCC) TAKE 1 TABLET TWICE A DAY 180 Tablet 3 2 08/28/19 Discontinued documented as of this encounter (statuses as of 08/27/2022) Active Problems Problem Noted Date Stage 3a [...] with wider margins) Staging: Stage 0 - [id number] - Melanoma in situ Type 2 diabetes [...] as of this encounter (statuses as of 08/27/2022) Resolved Problems Problem Noted Date Resolved Date [...] Aortic root 4.4 cm 4.29.2009 echo at [facility]. HTN, goal below 130/80 06/14/2009 [...] Markers for Patients with Cardiovascular Disease Project #[id number] PI: Francoise Tomlin MD Please call [phone] with study related questions INTERFACED RESULT 11/17/2008 10/17/2011 GENOMICS CARDIO RESEARCH OTHER*[id number] 200806/25/2016 Overview: Renamed Per Clinical Trials Billing Project. Study Titile: Genomic Markers for Patients with Cardiovascular Disease Project #[id number] PI: Francoise Tomlin MD Please call [phone] with study related questions CLASS I-II ANGINA [...] as of this encounter (statuses as of 08/27/2022) Immunizations Name Administration Dates Next Due Pneumococcal [...] Comments:quit 30 yrs ago, wh ile in [place] for 4 years Alcohol Use Standard Drinks/Week [...] encounter Miscellaneous Notes * Telephone Encounter - Sushila Lozano MD - 08/27/2022 8:06 AM EDTSigned Prescriptions: Disp Refills Ranolazine ER 1000 MG Oral Tablet Extended*180 Ta*3 Sig: TAKE 1 TABLET TWICE A DAY Authorizing Provider: SUSHILA LOZANO * Telephone Encounter - [place] - 08/26/2022 2:59 PM EDTPending Prescriptions: Disp Refills Ranolazine ER 1000 MG Oral Tablet Extended*180 Ta*3 Sig: TAKE 1 TABLET TWICE A DAY * Telephone Encounter - [place] - 08/26/2022 2:56 PM EDT Did you pend patient's preferred pharmacy and medication before forwarding?yes Pharmacy: [facility]- [place] Pending Prescriptions: Disp Refills Ranolazine ER 1000 MG Oral Tablet Extende*180 Ta*3 Sig: TAKE 1 TABLET TWICE A DAY Last Visit: 05/22/2022 (in office), 09/17/2019 (telemedicine) Next Visit: 11/25/2022 If no future appointments scheduled, and last appointment is greater than a year ago, please schedule patient for a follow-up appointment Last date the medication was ordered: 08-30-2021 Is this request for a controlled substance?No Urine Drug Screen:No results found for this or any previous visit. Patient Phone Numbers Labs: Lab Results Component Value Date/Time CREAT 1.5 (H) 12/04/2021 11:51 AM CREAT 1.9 (H) 04/18/2020 08:29 AM POTASSIUM 5.1 12/04/2021 11:51 AM POTASSIUM 5.0 04/18/2020 08:29 AM TSH 2.56 06/21/2020 03:37 PM TSH 2.81 01/01/2017 01:44 PM LDLCALC 30 10/27/2019 09:03 AM LDLDIRECT 52 09/15/2020 10:32 AM LDLDIRECT NOT APPLICABLE 10/27/2019 09:03 AM LDLDIRECT 50 10/24/2016 11:50 AM ALT 26 01/26/2021 10:03 AM ALT 23 04/18/2020 08:29 AM HGBA1C 9.4 (H) 07/10/2022 09:00 AM HGBA1C 9.7 (H) 04/18/2020 08:29 AM documented in this encounter Plan of Treatment Upcoming Encounters Date Type Specialty Care Team Description 10/09/2022 Office Visit Pharmacy [facility] Stephanie [address] [place] [address] 11/25/2022 Office Visit Cardiology Sushila Lozano MD [address] [place] [address] 02/12/2023 Office Visit Family Medicine Carola Arrington MD [address] [place] [address] 08/14/2023 Office Visit Dermatology Lyssa Gar MD [address] [place] [address], [place] [address] Health Maintenance Due Date Last Done Comments DXA Scan 1935 COVID-19 Vaccine (#1) 1935 Zoster Vaccines (1 of 2) 1986 COLONOSCOPY-EVERY 5 YRS AGES 18-100 03/20/2021 03/20/2016, 04/30/2010, 02/05/2002 CKD PHOS USE SMARTSET 72010 09/15/2021 04/3 , 04/18/2020, 04/27/2019, Additional history exists Depression Screening, Annual for Pts 12 and Over 10/26/2021 10/26/2020 CKD HGB USE SMARTSET 24973 01/26/202201/26, 01/26/2021, 09/15/2020, Additional history exists DTaP,Tdap,and [...] as of this encounter Visit Diagnoses Diagnosis Chest pain Chest pain, unspecified Unstable angina (HCC) Intermediate coronary syndrome documented [...] the patient have Health Care Power of [employer] Installation Helper? Yes, not currently available Code Status History Code Status Date Activated Date Inactivated Comments Full Code 09/15/2009 2:06 PM 09/16/2009 8:49 PM This o rder reflects the patients wishes and were consensually agreed upon. Question Answer Comments Discussion of Advance Directives occurred with: Patient/Family Does the patient have a Living Will? No Does the patient have Health Care Power of [place] Installation Helper? No Full Code 11/25/2008 1:50 PM 11/29/2008 9:11 PM This order reflects the patients wishes and were consensually agreed upon. Question Answer Comments Discussion of Advance Directives occurred with: Patient Care Teams Posting Clerk Relationship Specialty Start Date End Date Carola Arrington MD [address] [place] [address] PCP - General Internal Medicine 12/19/20 documented as of this encounter
--- OUTSIDE RECORDS SUMMARY | 2023-02-21 02:37 | External Medical Summary ---
Author Name Unknown Address Unknown Organization K01:[facility] [place] [address] [place] [address] Laboratory Report Ordering Provider Test Date Status THEODORECASTELLANO 09/30/2022 16:10:32 Final Observation Date Value Abnormality Reference (Units ) Status BUN 09/30/2022 16:10:32 38 Above high normal 6-20 (mg/dL) Final Creatinine 09/30/2022 16:10:32 1.8 Above high normal 0.6-1.2 (mg/dL) Final Glomerular filtration rate/1.73 sq M.predicted [Volume Rate/Area] in Serum, Plasma or Blood by Creatinine-based formula (CKD-EPI) 09/30/2022 16:10:32 37 Below low normal >=60 (mL/min) Final Performing Location [facility] [place] [address] [place] [address]
--- OUTSIDE RECORDS SUMMARY | 2023-02-21 02:37 | External Medical Summary | Summary of Care ---
Author Name Unknown Organization [facility] Address [address] [place] [address] Phone [phone] Care Team Providers Care Leadite Man Name Role Phone Carola Arrington MD Primary Care Provider Reason for Visit * Reason Comments Skin Check Skin check - Hx MM o n back in 2017. 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 Study Titile: Genomic Markers for Patients with Cardiovascular Disease Project #[id number] PI: Ricardo Yang MD Please call [phone] with study related questions CLASS I-II ANGINA [...] as of this encounter (statuses as of 08/13/2022) Immunizations Name Administration Dates Next Due Pneumococcal [...] Comments:quit 30 yrs ago, wh ile in [employer] for 4 years Alcohol Use Standard Drinks/Week [...] on file documented as of this encounter Patient Instructions * Patient Instructions* Joanie Hector MD - 08/08/2022 9:41 AM EDT SUNSCREEN USE AND SUN PROTECTION: 1. The best protection is sun avoidance. Seek shade if you can, especially between 9am to 5pm (pe[place] hours). 2. Use sunscreen with a Sun Protection Factor (SPF) of 30 or more that protects from Ultraviolet A (UVA) and Ultraviolet B (UVB) wavelength light. This is referred to as broad spectrum sun protection. Unfortunately, even though the protection is broad it is not complete, therefore making sun avoidance the best protection. UVB and UVA have both been implicated in causing skin cancers. Older sunscreens only protected from UVB and sunscreens with added UVA protection should contain Titanium dioxide, Zinc oxide, Mexoryl or Parsol 1789, also known as Avobenzone. 3. Use sun protection daily. Apply 20-30 minutes before going out and reapply every 2 hours. No sunscreen is truly water ''proof'' and it will wash away with sweat, swimming and rubbing. 4. Wear tightly woven, loose fitting (cooler) long sleeved clothing, UV-blocking clothing is best and sun glasses (eyes need protection as well) and wide-brimmed hat (no straw hats with holes becauselight still gets through). HOW TO CHECK YOUR MOLES: 1. Check moles every month and have a relative/friend check your back if possible. The use of a handheld mirror can help as well. The most common place for melanoma in women are the back and legs, and for men is the back. 2. Look for the ABCD's of melanoma: Asymmetry (strange shape - not round or oval), Borders (notched, scalloped or irregular edges), Color (very black or multi-colored), Diameter (size greater than 5mm or the size greater than a pencil eraser). 3. Changes in old moles and growths of new ones in relation to the ABCD's are the most important factors. 4. Some people have many moles that fit the ABCD criteria. At times the best thing is to look for the ''Ugly Duckling'' mole - the one that stands out the most. 5. If there are any questions on a mole please do not hesitate in calling our office at [phone] to have it evaluated. documented in this encounter Progress Notes * Lyssa Gar MD - 08/13/2022 2:52 PM EDT I have discussed the patient's management with the medical trainee and agree with the note. Please refer to the documented findings and plan of care. This patient's visit today consisted of an evaluation and procedure. I was present and confirmed the findings of the history and exam, and was present for the fofana and critical portions of the procedure. Lyssa Gar MD * Joanie Hector MD - 08/08/2022 9:41 AM EDT Dirk Garcia [id number] Chief Complaint: Chief Complaint Patient presents with Skin Check Skin check - Hx MM on back in 2016. No current concerns Dirk Garcia is a 87 year old male with history of malignant melanoma, seen today to be monitored for recurrence at previously treated sites and to be evaluated for the development of new lesions. No lesions that are changing, itchy, painful, or bleeding. No specific concerns today. 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 All other systems are negative for the problems addressed today. Integument: Other itching, bleeding, or changing skin lesions currently? No Constitutional: Change in overall health, weight, weakness, fatigue, fevers, sweats, chills? No Neurologic: New seizures, stroke, or other neurologic deficit? No Psychiatric: New confusion or mood change? No Gastrointestinal: New jaundice, abdominal pain, blood in stool? No Genitourinary: New blood in the urine? No Lymphatic: New enlarged nodes? No Cardiovascular: New chest pain or edema? No Respiratory: New cough or shortness of breath? 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 Enlarged aorta (HCC) 09/15/2009 Aortic root 4.4 cm 4.29.2009 echo at [facility]. HTN, goal below 130/80 06/14/2009 Per HTN Taxonomy. HTN, goal below 140/90 S/P angioplasty with stent drug eluting 09/15/09 Plavix x 12m Current Outpatient Medications Medication Sig Dispense Refill aspirin 81 MG chewable tablet Take 1 Tablet by mouth in the morning. 34 Tab 11 nitroglycerin (NITROSTAT) 0.4 MG SUBL DISSOLVE 1 TABLET UNDER THE TONGUE EVERY 5 MINUTES FOR CHEST PAIN. UP TO 3 DOSES IN 15 MINUTES. 25 Tab 1 Rosuvastatin Calcium 20 MG Oral Tablet (Crestor) Take by mouth 1 Tablet in the morning. 90 Tablet 4 Ranolazine ER 1000 MG Oral Tablet Extended Release 12 Hour TAKE 1 TABLET TWICE A DAY 180 Tablet3 amLODIPine Besylate 5 MG Oral Tablet (Norvasc) TAKE 1 TABLET BY MOUTH EVERY DAY 90 Tablet 3 Lantus SoloStar 100 UNIT/ML Subcutaneous Solution Pen-injector (Insulin Glargine Solostar) INJECT 22 UNITS SUBCUTANEOUSLY (UNDER THE SKIN) IN THE MORNING OR DIRECTED 15 mL 3 Isosorbide Mononitrate ER 120 MG Oral Tablet Extended Release 24 Hour (Imdur) TAKE 1 TABLET BY MOUTH EVERY MORNING 90 Tablet 1 metFORMIN HCl ER 500 MG Oral Tablet Extended Release 24 Hour (Glucophage XR) TAKE 3 TABLETS BY MOUTH EVERY DAY WITH FOOD 270 Tablet 1 Losartan Potassium 50 MG Oral Tablet (Cozaar) TAKE 2 TABLETS BY MOUTH EVERY DAY 180 Tablet 3 Clopidogrel Bisulfate 75 MG Oral Tablet (pLAVix) TAKE 1 TABLET BY MOUTH EVERY DAY 100 Tablet 1 BD Pen Needle Emperatriz 2nd Gen 32G X 4 MM (Insulin Pen Needle) USE WITH INSULIN PEN EVERY DAY 100 Each 1 Metoprolol Succinate ER 25 MG Oral Tablet Extended Release 24 Hour (toPROL XL) TAKE 2 TABLETS BY MOUTH EVERY DAY 180 Tablet 3 No current facility-administered medications for this visit. Past Surgical History: Procedure Laterality Date CABG, ARTERIAL, SINGLE 11/25/08 CORONARY ARTERY BYPASS GRAFT USING ARTERY 1 GRAFT performed by MAXIMILIANO CASILLAS at [facility] CABG, ARTERY-VEIN, TWO 11/25/08 CORONARY ARTERY BYPASS GRAFT ARTERIAL AND VENOUS 2 GRAFTS performed by MAXIMILIANO CASILLAS at [facility] CATHETERIZE LEFT HEART THRU SKIN Cardiac Catheterization, Left Heart CATHETERIZE LEFT HEART THRU SKIN 11/17/08 LEFT HEART CATH, PERCUTANEOUS performed by DRAKE MALONE at [facility] CATHETERIZE LEFT HEART THRU SKIN 09/15/09 LEFT HEART CATH, PERCUTANEOUS performed by RICARDO YANG at [facility] COLONOSCOPY THRU STOMA, W/BIOPSY jan 2002 adenomatous and hyperplastic polyps, next in jan 2005 CORONARY ANGIOGRAPHY W/LEFT HEART CATH 11/25/2011 CORONARY ANGIOGRAPHY W/LEFT HEART CATH performed by Jermaine Leary DO at [facility] DESTRUCTION PREMALIGNANT LESION 1ST about 2001 facial lesion. ENDO,VIDEO ASSIST HARVEST WALE 11/25/08 ENDOSCOPY VIDEO ASSISTED HARVEST VEIN performed by MAXIMILIANO CASILLAS at [facility] REMOVAL OF APPENDIX age 21 Family History Problem Relation Age of Onset Stroke Mother age 45, Heart Disorder Father old age, age 83 Neurological Disorder Father Alzheimer Social History Tobacco Use Smoking status: Former Packs/day: 0.50 Years: 5.00 Pack years: 2.50 Types: Cigarettes Quit date: 05/19/1984 Years since quittin.2 Smokeless tobacco: Never Tobacco comments: quit 30 yrs ago, while in [employer] for 4 years Vaping Use Vaping Use: Never used Substance Use Topics Alcohol use: Yes Comment: socially Drug use: No Comment: up to 2-3 cups of coffee per day Review of patient's allergies indicates: No Known Allergies Physical Examination: Constitutional: Patient is well-appearing and in no acute distress. Eyes: No scleral icterus. ENT: No cyanosis of lips. No pigmented lesions in oral cavity detected. Respiratory: Normal respiratory effort. Psychiatric: Patient mood and behavior are appropriate to situation. Neuro: Patient is alert and oriented. No apparent weakness or focal signs. Lymph Nodes: Lymph nodes in head, neck, supraclavicular, axillary, and inguinal areas show no lymphadenopathy. Skin: Exam of the scalp, face, conjunctivae, oral mucosa, neck, chest, back, abdomen, buttocks, andall four extremities is performed. All areas are normal except for the following findings. A. 5mm pink hyperkeratotic papule on the left popliteal fossa, tangential shave biopsy and curettage, DDX: HAK vs SCC vs SK B. 3mm pink excoriated papule on the mid back, favor inflammatory, photo taken for monitoring today. C. At the trunk and extremities are several scattered sharp/brown hyperkeratotic stuck on appearing waxy papules D. Well healed scar at primary site(s) without evidence of disease recurrence. - Patient declined genital exam. ASSESSMENT and PLAN: History of Melanoma. - History was obtained regarding new or changing moles. - Patient counseled on self-examination for new or changing moles. - Advised age appropriate cancer screening The signs and symptoms of skin cancer were reviewed and the patient was advised to practice sun protection and sun avoidance, use daily sunscreen, and perform regular self-skin and lymph node exams on a monthly basis. I reviewed changes to watch for including changes in the A-B-C-D's, asymmetry of a lesion, changes in border, color or diameter as well as non healing lesions. I instructed the patie nt to call if any new lesions appear or current lesions change. Additional Problems: Scar. Well healed. No evidence of disease. Skin neoplasm: A above - Shave of the lesion(s) noted above to remove and confirm diagnosis. The procedure, risks, benefits, alternatives and expected outcomes were discussed with the patient and consent was obtained. Timeout called. Patient identified, procedure verified, site(s) identified and verified. Patient and staff present in agreement. Area prepped with alcohol and anesthetized using Ropivacaine 0.2%. Tangential shave of lesion(s) performed. The lesion(s) was/were then curetted for cure. 20% AlCl and bandaging applied. Specimen(s) sent to pathology. Patient instructed in routine post-op care. Size of wound(s) after curettage: 8mm Favor inflammatory papule, mid back: B above - No concerning features on exam today - Photo taken for monitoring today. - Patient was advised to call/return to clinic if the lesion does not improve or there are new areas of concern. Seborrheic keratoses - The benign nature of these lesions was discussed with the patient - Discussed treatment with cryotherapy or shave removal for irritated lesions. Treatment not indicated today. History of Nonmelanoma Skin Cancer/Scar/Chronic actinic damage - Well healed scar(s) with no evidence of recurrence - Recommended periodic skin exams and instructed to call clinic if patient notices any changing lesions, including rapid enlargement, changes in color or shape or symptoms, bleeding, or other concerns. The common features and behavior of non-melanoma skin cancers (e.g. basal cell carcinoma/squamouscell carcinoma) as well as the ABCDEs and ugly duckling features of melanoma were also reviewed. -Daily sun protection recommended including physical (i.e. clothing) and chemical blockers. Broad spectrum sunscreens with at least SPF 30 for UVB protection and UVA blockers such as zinc / titanium / mexoryl / parsol 1789 (AKA avobenzone or Helioplex) were recommended. Follow up high priority melanoma clinic 12 months. However, the patient should seek an early evaluation by a medical provider if any suspicious lesions develop. There were no barriers to learning and no other pain was related to today's visit. The patient demonstrates understanding of the visit and treatment. Send results via: call Joanie Hector MD 08/08/2022 9:41 AM CC: Ref: SELF[[id number]] NO STREET ADDRESS AVAILABLE None (office) None (fax) documented in this encounter Nursing Notes * Kristin Byrd LPN - 08/08/2022 9:49 AM EDT Chief Complaint Patient presents with Skin Check Skin check - Hx MM on back in 2017. No current concerns documented in this encounter Miscellaneous Notes * Addendum Note - Lyssa Gar MD - 08/13/2022 2:54 PM EDTAddended by: LYSSA GAR on: 08/13/2022 02:54 PM Modules accepted: Level of Service * Result Encounter Note - Joanie Hector MD - 08/13/2022 2:17 PM EDT A. Skin, left popliteal fossa, shave: Squamous cell carcinoma in-situ Spoke with patient regarding results. Treated with curettage at time of biopsy for cure. No questions or concerns. Left office number to call if there are any questions or concerns. Also encouraged to call office if there are any new spots of concern. documented in this encounter Plan of Treatment Upcoming Encounters Date Type Specialty Care Team Description 10/09/2022 Office Visit Pharmacy [facility] [address] [place] [address] 11/25/2022 Office Visit Cardiology Azael Lozano MD [address] [place] [address] 02/12/2023 Office Visit Family Medicine Carola Arrington MD [address] [place] [address] 08/14/2023 Office Visit Dermatology Lyssa Gar MD [address] [place] [address], [place] [address] Health Maintenance Due Date Last Done Comments DXA Scan 1935 COVID-19 Vaccine (#1) 1935 Zoster Vaccines (1 of 2) 1986 COLONOSCOPY-EVERY 5 YRS AGES 18-100 03/20/2021 03/20/2016, 04/30/2010, 02/05/2002 CKD PHOS USE SMARTSET 10992 09/15/2021 04/3 , 04/18/2020, 04/27/2019, Additional history exists Depression Screening, Annual for Pts 12 and Over 10/26/2021 10/26/2020 Influenza Vaccine (FLU shot) (#1) 2022 02/21/2020, 03/02/2019, 03/01/2018, Additional history exists CKD HGB USE SMARTSET 28605 01/26/202201/26, 01/26/2021, 09/15/2020, Additional history exists DTaP,Tdap,and [...] Procedure Name Priority Date/Time Associated Diagnosis Comments SURGICAL PATHOLOGY Routine 08/08/2022 10 :12 AM EDT Skin neoplasm documented in this encounter Results * SURGICAL PATHOLOGY (08/08/2022 10:12 AM EDT) Final Diagnosis A. Skin, left popliteal fossa, shave: Squamous cell carcinoma in-situ 08/13/2022 2:02 PM EDT [facility] Clinical History See Order Comments 08/13/2022 2:02 PM EDT [facility] Order Comments A. 5mm pink hyperkeratotic papule on the left popliteal fossa, tangential shave biopsy and curettage, DDX: HAK vs SCC vs SK 08/13/2022 2:[address] [facility] Gross Description A. Skin. shave Received in formalin with a container labeled with "Dirk Garcia", "[id number]" and "1935" and " left popliteal fossa". Received is a 1.0 x 1.0 cm skin shave. The skin surface has a sharp-red slightly keratotic 2 crusted appearance throughout, this is extending to the margins. The underlying tissue is inked. The specimen is serially sectioned into 4 in 2 pieces each are submitted in cassettes A 1 and A 2. Grossed by: GIDEON 08/13/2022 2:[address] [facility] Sign Out Location Pathologist sign out performed at [facility] ([facility]), [address] [place] [id number]. 08/13/2022 2:[address] [facility] Photographic images and diagrams represent fofana findings in this case; they are not intended to replace a complete review of the final diagnostic report. The following statement applies to Flow Cytometry, Histology, In situ Hybridization Assays and Molecular Genetics. This test was developed and performed at [facility] and its performance characteristics determined by [facility] [employer] It has not been cleared or approved by the U.S. Food and Drug Administration. The FDA has determined that such clearance or approval is not necessary. This test is used for clinical purposes. It should not be regarded as investigational or for research. Special stains, including histochemical stains, and studies using immunologic and MICHAEL methodology (where applicable) are performed with appropriate positive and negative control reactions. 08/13/2022 2:[address] [facility] Tissue Skin structure / Unknown 08/08/2022 10:12 AM EDT 08/08/2022 10:12 AM EDT Comment:A. 5mm pink hyperker atotic papule on the left popliteal fossa, tangential shave biopsy and curettage, DDX: HAK vs SCC vs SK Joanie Hector MD LAB PATHOLOGY [facility]ASSAN [facility] [address] [place] [address] documented in this encounter Visit Diagnoses Diagnosis Scar conditions and fibrosis of skin- Primary Scar condition and fibrosis of skin History of malignant melanoma of skin Personal history of malignant melanoma of skin Skin neoplasm Neoplasm of unspecified nature of bone, soft tissue, and skin History of nonmelanoma skin cancer Personal history of other malignant neoplasm of skin Seborrheic keratosis Other seborrheic keratosis documented in this encounter Advance Directives Latest [...] the patient have Health Care Power of Pattern Technician? Yes, not currently available Code Status History Code Status Date Activated Date Inactivated Comments Full Code 09/15/2009 2:06 PM 09/16/2009 8:49 PM This o rder reflects the patients wishes and were consensually agreed upon. Question Answer Comments Discussion of Advance Directives occurred with: Patient/Family Does the patient have a Living Will? No Does the patient have Health Care Power of Pattern Technician? No Full Code 11/25/2008 1:50 PM 11/29/2008 9:11 PM This order reflects the patients wishes and were consensually agreed upon. Question Answer Comments Discussion of Advance Directives occurred with: Patient Care Teams Leadite Man Relationship Specialty Start Date End Date Carola Arrington MD [address] [place] [address] PCP - General Internal Medicine 12/19/20 documented as of this encounter
--- OUTSIDE RECORDS SUMMARY | 2023-02-21 02:38 | External Medical Summary ---
Author Name Unknown Address Unknown Organization K01:LABORATORY [facility] - [address] [place] [address] Laboratory Report Ordering Provider Test Date Status CASSIA MILTON 07/10/2022 09:04:01 Final Observation Date Value Abnormality Reference (Units ) Status Albumin, Urine 07/10/2022 09:04:01 27.27 (mg/dL) Final Creatinine, Urine 07/10/2022 09:04:01 74 (mg/dL) Final Albumin/Creatinine [Mass Ratio] in Urine 07/10/2022 09:04:01 369 Above high normal <30 (mg/g Creat) Final Performing Location LABORATORY [facility] - [address] [place] [address]
--- OUTSIDE RECORDS SUMMARY | 2023-02-21 02:38 | External Medical Summary | Summary of Care ---
Author Name Unknown Organization [place] [address] Care Team Providers Care Wire Tinner Name Role Phone Carola Arrington MD Primary Care Provider Reason for Visit * Reason Comments Dosage Adjustment In Person (Anticoag Cl inic) Diabetes Follow-Up Encounter Details Date Type Department Care Team Description 07/10/2022 Office Visit Pharmacy, [facility] [address] [place] [address] [facility] [address] [place] [address] Type 2 diabetes mellitus with stage 3b chronic kidney disease, unspecified whether exterminator helper termite insulin use ([facility])* Allergies No known active allergiesdocumented as of this encounter (statuses as of 07/10/2022) Medications Medication Sig Dispensed Refills Start Date End Date Status aspirin 81 MG chewable tablet Take 1 Tablet by mouth in the morning. 34 Tab 11 10/28/2017 Active nitroglycerin (NITROSTAT) 0.4 MG SUBLIndications:Ch ronic coronary artery disease DISSOLVE 1 TABLET UNDER THE TONGUE EVERY 5 MINUTES FOR CHEST PAIN. UP TO 3 DOSES IN 15 MINUTES. 25 Tab 1 11/17/2018 Active BD Pen Needle Emperatriz U/F 32G X 4 MM (Insulin Pen Needle)Indications :Type 2 diabetes mellitus with stage 3b chronic kidney disease, without long-term current use of insulin (HCC),DM type 2, goal A1C to be determined ([facility]) Use with insulin pen once daily 100 Each 5 04/27/2021 Active Losartan Potassium 50 MG Oral Tablet (Cozaar) TAKE 2 TABLETS BY MOUTH EVERY DAY 180 Tablet 3 07/17/2021 Active Rosuvastatin Calcium 20 MG Oral Tablet (Crestor)Indicatio ns:Dyslipidemia, goal LDL below 70,Dyslipidemia, goal LDL below 160,Mixed dyslipidemia Take by mouth 1 Tablet in the morning. 90 Tablet 4 08/22/2021 Active Metoprolol Succinate ER 25 MG Oral Tablet Extended Release 24 Hour (toPROL XL)Indications:Chr onic coronary artery disease,Aortocoron jovanna bypass status,HTN, goal below 140/90 TAKE 2 TABLETS BY MOUTH EVERY DAY 180 Tablet 3 08/24/2021 Active Ranolazine ER 1000 MG Oral Tablet Extended Release 12 HourIndications:Ch est pain,Unstable angina (HCC) TAKE 1 TABLET TWICE A DAY 180 Tablet 3 08/30/2021 Active Clopidogrel Bisulfate 75 MG Oral Tablet (pLAVix)Indication s:Aortocoronary bypass status,Acute coronary syndrome (HCC),Chronic coronary artery disease,Enlarged aorta (HCC) TAKE 1 TABLET BY MOUTH EVERY DAY 100 Tablet 1 01/24/2022 Active amLODIPine Besylate 5 MG Oral Tablet [...] WITH FOOD 270 Tablet 1 07/04/2022 Active documented as of this encounter (statuses as of 07/10/2022) Active Problems Problem Noted Date Hx of melanoma of skin 07/19/2021 Overview: Location: L upper back Year: 2016 Depth: MIS Treatment: WLE (positive margins on initial excision, then re-excised again with wider margins) Staging: Stage 0 - [id number] - Melanoma in situ Type 2 diabetes [...] as of this encounter (statuses as of 07/10/2022) Resolved Problems Problem Noted Date Resolved Date [...] Aortic root 4.4 cm 4.29.2009 echo at [facility]. HTN, goal below 130/80 06/14/2009 [...] Markers for Patients with Cardiovascular Disease Project #[id number] PI: Francoise Tomlin MD Please call [phone] with study related questions INTERFACED RESULT 11/17/2008 10/17/2011 GENOMICS CARDIO RESEARCH OTHER*[id number] 200806/25/2016 Overview: Renamed Per Clinical Trials Billing Project. Study Titile: Genomic Markers for Patients with Cardiovascular Disease Project #[id number] PI: Francoise Tomlin MD Please call [phone] with study related questions CLASS I-II ANGINA [...] as of this encounter (statuses as of 07/10/2022) Immunizations Name Administration Dates Next Due Pneumococcal [...] Comments:quit 30 yrs ago, wh ile in [place] for 4 years Alcohol Use Standard Drinks/Week [...] of this encounter Progress Notes * Crystal Morgan, [facility] - 07/10/2022 8:46 AM EST Medication Therapy Disease Management [facility] - Diabetes Management Progress Note Dirk Garcia, identified by name and date of , is a 87 year old male being seen for diabetes management/education. Patient presents for return diabetic visit. DIABETES: Current diabetic medications: Metformin ER 500 mg- 3 tablets daily Lantus 22 units daily Medication Injection Site: Abdomen Lifestyle: Diet: unchanged Glucose Review/SMBG: Readings per patient memory/recall: Patient is currently testing 0 times a day Hypoglycemia: Does your blood sugar go below 70 mg/dL? No Hyperglycemia symptoms present: none Recent Labs Units 12/04/21 1151 08/08/21 1125 07/12/21 1044 HEMOGLOBIN A1C - [facility] % 8.0* 10.9* 11.5* Recent Labs Units 12/04/21 1151 10/18/21 0833 08/08/21 1125 ESTIMATED GLOMERULAR FILTRATION RATE - [facility] mL/min 46* 46* 48* CREATININE - [facility] mg/dL 1.5* 1.5* 1.4* HYPERTENSION: Patient on ACEi/ARB: yes BP Readings from Last 3 Encounters: 05/22/22 106/64 02/08/22 150/62 10/18/21 158/86 Blood pressure at goal: yes HYPERLIPIDEMIA: Patient is taking moderate or high intensity statin: yes HEALTH MAINTENANCE REVIEW: Health Maintenance Due Topic Date Due DXA Scan Never done COVID-19 Vaccine (1) Never done Zoster Vaccines (1 of 2) Never done COLONOSCOPY-EVERY 5 YRS AGES 18-100 03/20/2021 CKD PHOS USE SMARTSET 19996 09/15/2021 Depression Screening, Annual for Pts 12 and Over 10/26/2021 Influenza Vaccine (FLU shot) (1) 01/17/2022 CKD HGB USE SMARTSET 34133 01/26/2022 Yearly B-12 04/27/2022 HgA1C 06/06/2022 DTaP,Tdap,and Td Vaccines (2 - Td or Tdap) 07/10/2022 Alb / Creat Ratio 08/08/2022 DIABETES-FOOT EXAM 08/08/2022 ASSESSMENT & PLAN: ICD-10-CM 1. Type 2 diabetes mellitus with stage 3b chronic kidney disease, unspecified whether half-way insulin use (HCC) E11.22 N18.32 BG Readings - Blood sugars controlled. Patient will repeat A1c today Medications - Reviewed current regimen, patient is adherent to regimen. Recommending to continue atthis time Diet, Exercise, Lifestyle - No significant lifestyle changes since last visit. Discussed with patient. Patient is agreeable to SMBG 0 time(s) daily. Patient aware to contact clinic if any hypoglycemia before next visit. MEDICATION CHANGES: no change Diabetic Medications: Metformin ER 500 mg- 3 tablets daily Lantus 22 units daily HEALTH MAINTENANCE INTERVENTIONS: Labs: Ordered & Scheduled: HgA1c and Vitamin B12 Immunizations: Up to Date Foot Exam: Up to Date Eye Exam: Up to Date Annual Wellness Visit: Up to Date FOLLOW UP: Return to clinic in 12 weeks 10/09/2022 Crystal Morgan RPh Clinical Pharmacist - Staff Nuclear Medicine Technologist Medication Therapy Management Clinic 07/10/2022, 8:46 AM documented in this encounter Plan of Treatment Upcoming Encounters Date Type Specialty Care Team Description 07/10/2022 Laboratory Laboratory Celia Najera [address] [place] [address] Type 2 diabetes mellitus with stage 3b chronic kidney disease, unspecified whether half-way insulin use (HCC) 08/08/2022 Office Visit Dermatology Lyssa Gar MD [address] [place] [address] 08/09/2022 Office Visit Family Medicine Carola Arrington MD [address] [place] [address] 10/09/2022 Office Visit Pharmacy [facility] [address] [place] [address] 11/25/2022 Office Visit Cardiology Azael Lozano MD [address] [facility] [place] [address] Health Maintenance Due Date Last Done Comments DXA Scan 1935 COVID-19 Vaccine (#1) 1935 Zoster Vaccines (1 of 2) 1986 COLONOSCOPY-EVERY 5 YRS AGES 18-100 03/20/2021 03/20/2016, 04/30/2010, 02/05/2002 CKD PHOS USE SMARTSET 13490 09/15/2021 04/3 , 04/18/2020, 04/27/2019, Additional history exists Depression Screening, Annual for Pts 12 and Over 10/26/2021 10/26/2020 Influenza Vaccine (FLU shot) (#1) 2022 02/21/2020, 03/02/2019, 03/01/2018, Additional history exists CKD HGB USE SMARTSET 33564 01/26/202201/26, 01/26/2021, 09/15/2020, Additional history exists Yearly B-12 04/27/2022 04/27/2021, 12/0 05/2019, 04/27/2019, Additional history exists HgA1C 06/06/2022 12/04/2021, /07/2021, 07/12/2021, Additional history exists DTaP,Tdap,and Td Vaccines (2 - Td or Tdap) 07/10/2022 07/10/2012 Alb / Creat Ratio 08/08/2022 08/08/2021, , 02/20/2015, Additional history exists DIABETES-FOOT EXAM 08/08/2022 08/08/2021, 1 06/28/2019, 04/27/2019, Additional history exists DIABETES-EYE EXAM 02/08/2023 02/08/2022, , 04/28/2013, Additional history exists Pneumococcal Vaccine: 65+ Years [...] stage 3b chronic kidney disease, unspecified whether half-way insulin use (HCC)- Primary Type 2 diabetes mellitus with stage 3b chronic kidney disease, unspecified whether exterminator helper termite insulin use (HCC) documented in this encounter Advance Directives [...] the patient have Health Care Power of Vaccine Customer Representative? Yes, not currently available Code Status History Code Status Date Activated Date Inactivated Comments Full Code 09/15/2009 2:06 PM 09/16/2009 8:49 PM This o rder reflects the patients wishes and were consensually agreed upon. Question Answer Comments Discussion of Advance Directives occurred with: Patient/Family Does the patient have a Living Will? No Does the patient have Health Care Power of Vaccine Customer Representative? No Full Code 11/25/2008 1:50 PM 11/29/2008 9:11 PM This order reflects the patients wishes and were consensually agreed upon. Question Answer Comments Discussion of Advance Directives occurred with: Patient Care Teams Wire Tinner Relationship Specialty Start Date End Date Carola Arrington MD [address] [place] [address] PCP - General Internal Medicine 12/19/20 documented as of this encounter
--- OUTSIDE RECORDS SUMMARY | 2023-02-21 02:38 | External Medical Summary | Summary of Care ---
Author Name Unknown Organization [facility] Address [address] [place] [address] Phone [phone] Care Team Providers Care Toll Patrolman Name Role Phone Carola Arrington MD Primary Care Provider Reason for Visit * Reason Comments eRx-Medication Refill Encounter Details Date Type Department Care Team Description 08/05/2022 Refill Cardiology, [facility] [address] [facility] [place] [address] Sushila [facility]ozano [facility] [address] [facility] [place] [address] Chronic coronary artery disease; Aortocoronary bypass status; HTN, goal below 140/90 Allergies No known active allergiesdocumented as of this encounter (statuses as of 08/05/2022) Medications Medication Sig Dispensed Refills Start Date [...] the morning. 90 Tablet 4 2 Active Ranolazine ER 1000 MG Oral Tablet Extended Release 12 HourIndications: Chest pain,Unstable angina (HCC) TAKE 1 TABLET TWICE A DAY 180 Tablet 3 2 Active amLODIPine Besylate 5 MG Oral Tablet (Norvasc)Indicat ions:HTN, goal below 130/80 TAKE 1 TABLET BY MOUTH EVERY DAY 90 Tablet 3 2 Active Lantus SoloStar 100 UNIT/ML Subcutaneous Solution Pen-injector (Insulin Glargine Solostar)Indicat ions:DM type 2, goal A1C to be determined ([facility]),Type 2 diabetes mellitus with stage 3b chronic kidney disease, without long-term current use of insulin ([facility]) INJECT 22 UNITS SUBCUTANEOUSLY (UNDER THE SKIN) IN THE MORNING OR DIRECTED 15 mL 3 2 Active Isosorbide Mononitrate ER 120 MG Oral Tablet Extended Release 24 Hour (Imdur) TAKE 1 TABLET BY MOUTH EVERY MORNING 90 Tablet 1 3 Active metFORMIN HCl ER 500 MG Oral Tablet Extended Release 24 Hour (Glucophage XR)Indications:D M type 2, goal A1C to be determined ([facility]) TAKE 3 TABLETS BY MOUTH [...] type 2, goal A1C to be determined ([facility]) USE WITH INSULIN PEN EVERY DAY 100 Each 1 3 Active Metoprolol Succinate ER 25 MG Oral Tablet Extended Release 24 Hour (toPROL XL)Indications:C hronic coronary artery disease,Aortocor onary bypass status,HTN, goal below 140/90 TAKE 2 TABLETS BY MOUTH EVERY DAY 180 Tablet 3 3 Active Metoprolol Succinate ER 25 MG Oral Tablet Extended Release 24 Hour (toPROL XL)Indications:C hronic coronary artery disease,Aortocor onary bypass status,HTN, goal below 140/90 TAKE 2 TABLETS BY MOUTH EVERY DAY 180 Tablet 3 2 08/06/19 23 Discontinued documented as of this encounter (statuses as of 08/05/2022) Active Problems Problem Noted Date Hx of melanoma of skin 07/19/2021 Overview: Location: L upper back Year: 2016 Depth: MIS Treatment: WLE (positive margins on initial excision, then re-excised again with wider margins) Staging: Stage 0 - [id number] - Melanoma in situ Type 2 diabetes [...] as of this encounter (statuses as of 08/05/2022) Resolved Problems Problem Noted Date Resolved Date [...] Markers for Patients with Cardiovascular Disease Project #[id number] PI: Francoise Tomlin MD Please call [phone] with study related questions INTERFACED RESULT 11/17/2008 10/17/2011 GENOMICS CARDIO RESEARCH OTHER*[id number] 200806/25/2016 Overview: Renamed Per Clinical Trials Billing Project. Study Titile: Genomic Markers for Patients with Cardiovascular Disease Project #[id number] PI: Francoise Tomlin MD Please call [phone] with study related questions CLASS I-II ANGINA [...] as of this encounter (statuses as of 08/05/2022) Immunizations Name Administration Dates Next Due Pneumococcal [...] Comments:quit 30 yrs ago, wh ile in [place] for 4 years Alcohol Use Standard Drinks/Week [...] Telephone Encounter - Sushila Lozano MD - 08/05/2022 1:35 PM EDTSigned Prescriptions: Disp Refills Metoprolol Succinate ER 25 MG Oral Tablet *180 Ta*3 Sig: TAKE 2 TABLETS BY MOUTH EVERY DAY Authorizing Provider: SUSHILA LOZANO * Telephone Encounter - Sherie Meek LPN - 08/05/2022 12:17 PM EDTPending Prescriptions: Disp Refills Metoprolol Succinate ER 25 MG Oral Tablet *180 Ta*3 Sig: TAKE 2 TABLETS BY MOUTH EVERY DAY * Telephone Encounter - Sherie Meek LPN - 08/05/2022 12:16 PM EDT Did you pend patient's preferred pharmacy and medication before forwarding?yes [facility]acy[id number] [place] Pending Prescriptions: Disp Refills Metoprolol Succinate ER 25 MG Oral Tablet*180 Ta*3 Sig: TAKE 2 TABLETS BY MOUTH EVERY DAY Last Visit: 05/22/2022 (in office), 09/17/2019 (telemedicine) Next Visit: 11/25/2022 If no future appointments scheduled, and last appointment is greater than a year ago, please schedule patient for a follow-up appointment Last date the medication was ordered: 11 mo Is this request for a controlled substance?No [...] Encounters Date Type Specialty Care Team Description 08/08/2022 Office Visit Dermatology Lyssa Gar MD [address] [place] [address], [place] [address] 08/09/2022 Office Visit Family Medicine Carola Arrington MD [address] [place] [address] 10/09/2022 Office Visit Pharmacy [facility] [address] [place] [address] 11/25/2022 Office Visit Cardiology Sushila Lozano MD [address] [place] [address] Health Maintenance Due Date Last Done Comments DXA Scan 1935 COVID-19 Vaccine (#1) 1935 Zoster Vaccines (1 of 2) 1986 COLONOSCOPY-EVERY 5 YRS AGES 18-100 03/20/2021 03/20/2016, 04/30/2010, 02/05/2002 CKD PHOS USE SMARTSET 75007 09/15/2021 04/3 , 04/18/2020, 04/27/2019, Additional history exists Depression Screening, Annual for Pts 12 and Over 10/26/2021 10/26/2020 Influenza Vaccine (FLU shot) (#1) 2022 02/21/2020, 03/02/2019, 03/01/2018, Additional history exists CKD HGB USE SMARTSET 28089 01/26/202201/26, 01/26/2021, 09/15/2020, Additional history exists DTaP,Tdap,and [...] as of this encounter Visit Diagnoses Diagnosis Chronic coronary artery disease Coronary atherosclerosis of unspecified type of vessel, [place] or graft 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 Yes, not currently available Code Status History Code Status Date Activated Date Inactivated Comments Full Code 09/15/2009 2:06 PM 09/16/2009 8:49 PM This o rder reflects the patients wishes and were consensually agreed upon. Question Answer Comments Discussion of Advance Directives occurred with: Patient/Family Does the patient have a Living Will? No Does the patient have Health Care Power of Mate Ship? No Full Code 11/25/2008 1:50 PM 11/29/2008 9:11 PM This order reflects the patients wishes and were consensually agreed upon. Question Answer Comments Discussion of Advance Directives occurred with: Patient Care Teams Toll Patrolman Relationship Specialty Start Date End Date Carola Arrington MD [address] [place] [address] PCP - General Internal Medicine 12/19/20 documented as of this encounter
--- OUTSIDE RECORDS SUMMARY | 2023-02-21 02:38 | External Medical Summary | Summary of Care ---
Author Name Unknown Organization [place] [address] Care Team Providers Care Doula Name Role Phone Carola Arrington MD Primary Care Provider Reason for Visit * Reason Comments Follow Up Encounter Details Date Type Department Care Team Description 05/22/2022 Office Visit Cardiology, [facility] [address] [facility] [place] [address] Azael Lozano MD [address] [facility] [place] [address] Chronic coronary artery disease*; Aortocoronary bypass status; Nonrheumatic aortic valve stenosis Allergies No known active allergiesdocumented as of this encounter (statuses as of 05/22/2022) Medications Medication Sig Dispensed Refills Start Date [...] 2, goal A1C to be determined ([facility]) Use with insulin pen once [...] A DAY 180 Tablet 3 08/30/2021 Active Isosorbide Mononitrate ER 120 MG Oral Tablet Extended Release 24 Hour TAKE 1 TABLET BY MOUTH EVERY MORNING 90 Tablet 1 12/13/2021 Active metFORMIN HCl ER 500 MG Oral Tablet Extended Release 24 Hour (Glucophage XR)Indications:DM type 2, goal A1C to be determined (HCC) TAKE 3 TABLETS BY MOUTH EVERY DAY WITH FOOD 270 Tablet 1 12/31/2021 Active Clopidogrel Bisulfate 75 MG Oral Tablet [...] OR DIRECTED 15 mL 3 04/16/2022 Active documented as of this encounter (statuses as of 05/22/2022) Active Problems Problem Noted Date Hx of melanoma of skin 07/19/2021 Overview: Location: L upper back Year: 2016 Depth: MIS Treatment: WLE (positive margins on initial excision, then re-excised again with wider margins) Staging: Stage 0 - [id number] - Melanoma in situ Type 2 diabetes [...] as of this encounter (statuses as of 05/22/2022) Resolved Problems Problem Noted Date Resolved Date [...] root 4.4 cm 4.29.[address] [facility]. HTN, goal below 130/80 [...] Markers for Patients with Cardiovascular Disease Project #[id number] PI: Francoise Tomlin MD Please call [phone] with study related questions INTERFACED RESULT 11/17/2008 10/17/2011 GENOMICS CARDIO RESEARCH OTHER*[id number] 200806/25/2016 Overview: Renamed Per Clinical Trials Billing Project. Study Titile: Genomic Markers for Patients with Cardiovascular Disease Project #[id number] PI: Francoise Tomlin MD Please call [phone] with study related questions CLASS I-II ANGINA [...] as of this encounter (statuses as of 05/22/2022) Immunizations Name Administration Dates Next Due Pneumococcal [...] Answered Comments:quit 30 yrs ago, while in [employer] for 4 years Alcohol Use Standard Drinks/Week [...] Sign Reading Time Taken Comments Blood Pressure 106/64 05/22/2022 3:03 PM EST Pulse 68 05/22/2022 3:03 PM EST Temperature 36.5 C (97.7 F) 05/22/2022 3:03 PM ES T Respiratory Rate 14 05/22/2022 3:03 PM EST Oxygen Saturation 97% 05/22/2022 3:03 PM EST Inhaled Oxygen Concentration - - Weight 69.6 kg (153 lb 6.4 oz) 05/22/2022 3:03 P M EST Height - - Body Mass Index 21.39 02/08/2022 10:00 AM EDT documented in this encounter Progress Notes * Azael Lozano MD - 05/22/2022 3:00 PM EST May 22, 2022 Cardiology Follow Up Referring Provider: PCP: [place] [address] [phone] Chief Complaint: Routine followup coronary artery disease SUBJECTIVE: Dirk Garcia is a 86 year old year old male with cardiac history 1. Atherosclerotic coronary disease status post coronary bypass grafting November of 2008 for diffuse coronary disease, receiving REYES graft to LAD, saphenous vein graft to left circumflex, saphenous vein graft to the posterior descending artery. 2. Coronary intervention August of 2009, receiving drug-eluting stent to the left circumflex, obtuse marginal, and right coronary artery with patent REYES graft, occluded saphenous vein grafts 3. Cardiac catheterization 2011 without progression of disease, branch vessel marginal disease and chronic right coronary occlusion 4. 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 5. Hypertension. 6. Hyperlipidemia. 7. Mild nonrheumatic, calcific aortic valve stenosis 8. Right bundle-branch block 9. CKD stage 3 Patient presents today in routine followup. He remains active around home. Denies any chest pains, tachy palpitations, syncope or near syncope. Has not used any sublingual nitroglycerin. Blood sugars are trending towards better controlled. Notes insulin has increased appetite but no overt weight gain. No fevers chills or unexplained infections. A Complete Review of Systems is as stated above or negative. 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 Dyslipidemia, goal LDL below 70 E78.5 S/P angioplasty with stent Z95.820 DM type 2, goal A1C to be determined ([facility]) E11.9 HTN, goal below 140/90 I10 History of colon polyps Z86.010 Stable angina ([facility]) I20.8 Hypertensive kidney disease with stage 3b chronic kidney disease I12.9, N18.32 Type 2 diabetes mellitus with stage 3b chronic kidney disease (HCC) E11.22, N18.32 Chronic kidney disease, stage 3b (HCC) N18.32 Hx of melanoma of skin Z85.820 Review of patient's allergies indicates: No Known Allergies Current Outpatient Medications Medication Sig Dispense Refill aspirin 81 MG chewable tablet Take 1 Tablet by mouth in the morning. 34 Tab 11 nitroglycerin (NITROSTAT) 0.4 MG SUBL DISSOLVE 1 TABLET UNDER THE TONGUE EVERY 5 MINUTES FOR CHEST PAIN. UP TO 3 DOSES IN 15 MINUTES. 25 Tab 1 Losartan Potassium 50 MG Oral Tablet (Cozaar) TAKE 2 TABLETS BY MOUTH EVERY DAY 180 Tablet 3 Rosuvastatin Calcium 20 MG Oral Tablet (Crestor) Take by mouth 1 Tablet in the morning. 90 Tablet 4 Metoprolol Succinate ER 25 MG Oral Tablet Extended Release 24 Hour (toPROL XL) TAKE 2 TABLETS BY MOUTH EVERY DAY 180 Tablet 3 Ranolazine ER 1000 MG Oral Tablet Extended Release 12 Hour TAKE 1 TABLET TWICE A DAY 180 Tablet3 Isosorbide Mononitrate ER 120 MG Oral Tablet Extended Release 24 Hour TAKE 1 TABLET BY MOUTH EVERY MORNING 90 Tablet 1 metFORMIN HCl ER 500 MG Oral Tablet Extended Release 24 Hour (Glucophage XR) TAKE 3 TABLETS BY MOUTH EVERY DAY WITH FOOD 270 Tablet 1 Clopidogrel Bisulfate 75 MG Oral Tablet (pLAVix) TAKE 1 TABLET BY MOUTH EVERY DAY 100 Tablet 1 amLODIPine Besylate 5 MG Oral Tablet (Norvasc) TAKE 1 TABLET BY MOUTH EVERY DAY 90 Tablet 3 Lantus SoloStar 100 UNIT/ML Subcutaneous Solution Pen-injector (Insulin Glargine Solostar) INJECT 22 UNITS SUBCUTANEOUSLY (UNDER THE SKIN) IN THE MORNING OR DIRECTED 15 mL 3 BD Pen Needle Emperatriz U/F 32G X 4 MM (Insulin Pen Needle) Use with insulin pen once daily 100 Each5 No current facility-administered medications for this visit. OBJECTIVE/PHYSICAL EXAMINATION: BP 106/64 (BP Site: Left Arm, BP Position: Sitting, BP Cuff Size: Regular) | Pulse 68 | Temp 36.5 C (97.7 F) | Resp 14 | Wt 69.6 kg (153 lb 6.4 oz) | SpO2 97% | BMI 21.39 kg/m | BSA 1.87 m Repeat BP 132/74 equal in both arms General: Age-appropriate male in no acute distress Head: normocephalic, no masses, lesions, tenderness or abnormalities Eyes: conjunctiva are pink and non-injected, sclera clear Throat: clear Nares: without discharge Neck: supple, no adenopathy, no bruits, normal jugular venous pulse, no hepatojugular reflux, no carotid bruits Chest: normal shape and normal respiratory effort Lungs: clear to auscultation and percussion Cardiac Exam: - regular rate & rhythm, grade 1-2/6 systolic murmur no diastolic murmur no S3 gallop or rub - normal S-1, normal S-2 Pulses: 2(+) throughout Abdomen: abdomen soft, non-tender, no abnormal masses, no hepatosplenomegaly, no abdominal bruit, no femoral bruit Musculoskeletal: Mild Wide-based gait disturbance, no joint inflammation, no deforming arthritis Extremities: no edema, no cyanosis, pulses intact 1+/4 right greater than left Neuro: grossly normal exam Data: EKG October 18, 2021, personally reviewed: Sinus bradycardia 51 beats per minute with right bundle-branch block no significant change from prior study Echocardiogram January 22, 2019: The LV wall thickness is mildly increased (concentric). The basal septum is thickened and angulated consistent with sigmoid septum. The left ventricular wall motion is normal. The qualitative LV ejection fraction is 55-59% (normal). The aortic valve is mildly calcified. Mild aortic valve stenosis is present. Mild tricuspid regurgitation is present. Stress perfusion nuclear imaging January 22, 2019 Interpretation Summary Abnormal combined low intensity exercise/pharmacologic nuclear stress test. Symptoms suggestive angina occurred during the stress portion the test. The EKG response was equivocal. Perfusion images consistent with inferior wall infarction mild superimposed ischemia. Gated SPECT images reveal mild inferior wall hypokinesis, calculated LV EF equals 60%, which is normal. Study is similar to the prior testing of December 2014 and July 2016 ASSESSMENT: 86 year old year old male With 1. Chronic stable ischemic heart disease, remote coronary bypass grafting, November 2008 with chronic stable class 2 3 angina pectoris, stable. No recent change in exercise tolerance or symptoms. 2. Hypertension, controlled 3. Hyperlipidemia with generalized good lipid control would recommend repeat lipid panel with next laboratory study 4. Mild aortic stenosis without clinical change history or examination PLAN: Continue current therapies DISPOSITION: Follow-up 6 months with patient report symptoms or complaints in the interim Azael Lozano MD [facility] [address] [address] Copy to be forwarded to [facility] [address] [place] [phone] documented in this encounter Nursing Notes * Carolyn Leary CMA - 05/22/2022 3:02 PM EST Examination Room: Name: Dirk Garcia Date of : (1935). Reason for Visit: 6M f/u Interim Hospitalization(s): none Problems/Concerns: denies Chest Pain/SOB: denies CP or unusual SOB [facility] Discussed: Not applicable [...] Date Type Specialty Care Team Description 07/10/2022 Office Visit Pharmacy [facility] [address] [place] [address] 08/08/2022 Office Visit Dermatology Lyssa Gar MD [address] [place] [address] 08/09/2022 Office Visit Family Medicine Carola Arrington MD [address] [place] [address] 11/25/2022 Office Visit Cardiology Azael Lozano MD [address] [place] [address] Health Maintenance Due Date Last Done Comments DXA Scan 1935 COVID-19 Vaccine (#1) 1935 Zoster Vaccines (1 of 2) 1986 COLONOSCOPY-EVERY 5 YRS AGES 18-100 03/20/2021 03/20/2016, 04/30/2010, 02/05/2002 CKD PHOS USE SMARTSET 83198 09/15/2021 04/3 , 04/18/2020, 04/27/2019, Additional history exists Depression Screening, Annual for Pts 12 and Over 10/26/2021 10/26/2020 Influenza Vaccine (FLU shot) (#1) 2022 02/21/2020, 03/02/2019, 03/01/2018, Additional history exists CKD HGB USE SMARTSET 92989 01/26/202201/26, 01/26/2021, 09/15/2020, Additional history exists Yearly B-12 04/27/2022 04/27/2021, 12/05/2019, 04/27/2019, Additional history exists DIABETES-HGBA1C EVERY 6 MONTHS 06/06/2022 12/04/2021, 08/08/2021, 07/12/2021, Additional history exists DTaP,Tdap,and Td Vaccines [...] encounter Visit Diagnoses Diagnosis Chronic coronary artery disease- Primary Coronary atherosclerosis of unspecified type of vessel, little traverse or graft Aortocoronary bypass status Postsurgical aortocoronary bypass status Nonrheumatic aortic valve stenosis Aortic valve disorders documented in this encounter Advance Directives Latest [...] the patient have Health Care Power of Polymer Specialist? Yes, not currently available Code Status History Code Status Date Activated Date Inactivated Comments Full Code 09/15/2009 2:06 PM 09/16/2009 8:49 PM This o rder reflects the patients wishes and were consensually agreed upon. Question Answer Comments Discussion of Advance Directives occurred with: Patient/Family Does the patient have a Living Will? No Does the patient have Health Care Power of Polymer Specialist? No Full Code 11/25/2008 1:50 PM 11/29/2008 9:11 PM This order reflects the patients wishes and were consensually agreed upon. Question Answer Comments Discussion of Advance Directives occurred with: Patient Care Teams Doula Relationship Specialty Start Date End Date Carola Arrington MD [address] [place] [address] PCP - General Internal Medicine 12/19/20 documented as of this encounter"
--- OUTSIDE RECORDS SUMMARY | 2023-02-21 02:38 | External Medical Summary | Summary of Care ---
Author Name Unknown Organization [facility] Address [address] [place] [address] Phone [phone] Care Team Providers Care Camp Nurse Name Role Phone Carola Arrington MD Primary Care Provider Reason for Visit * Reason Comments Skin Check Skin check - Hx MM o n back in 2017. No current concerns Encounter Details Date Type Department Care Team Description 08/08/2022 Office Visit Dermatology [facility] [address] [place] [address] Lyssa Gar MD [address] [place] [address] Skin neoplasm*; Scar conditions and fibrosis of skin; History of malignant melanoma of skin; History of nonmelanoma skin cancer; Seborrheic keratosis Allergies No known active allergiesdocumented as of this encounter (statuses as of 08/08/2022) Medications Medication Sig Dispensed Refills Start Date [...] A1C to be determined ([facility]),Type 2 diabetes mellitus with stage 3b chronic kidney disease, without long-term current use of insulin ([facility]) INJECT 22 UNITS SUBCUTANEOUSLY (UNDER THE SKIN) [...] A1C to be determined ([facility]) TAKE 3 TABLETS BY MOUTH EVERY DAY [...] A1C to be determined ([facility]) USE WITH INSULIN PEN EVERY DAY 100 Each 1 07/24/2022 Active Metoprolol Succinate ER 25 MG Oral Tablet Extended Release 24 Hour (toPROL XL)Indications:Chr onic coronary artery disease,Aortocoron jovanna bypass status,HTN, goal below 140/90 TAKE 2 TABLETS BY MOUTH EVERY DAY 180 Tablet 3 08/05/2022 Active documented as of this encounter (statuses as of 08/08/2022) Active Problems Problem Noted Date Hx of melanoma of skin 07/19/2021 Overview: Location: L upper back Year: 2016 Depth: MIS Treatment: WLE (positive margins on initial excision, then re-excised again with wider margins) Staging: Stage 0 - [id number] - Melanoma in situ Type 2 diabetes [...] as of this encounter (statuses as of 08/08/2022) Resolved Problems Problem Noted Date Resolved Date [...] Aortic root 4.4 cm 4.29.2009 echo at [facility]. HTN, goal below 130/80 06/14/2009 2 Overview: Per HTN Taxonomy. Type 2 diabetes mellitus wit h hemoglobin A1c goal of less than 7.0% 03/02/2009 03/27/2011 Overview: Modified per Diabetes protocol #14. ICD-10 update of inactive term EXAMINATION OF PARTICIPANT IN CLINICAL TRIAL-gen omics 11/17/2008 09/01/2009 Overview: Renamed Per Clinical Trials Billing Project. Study Titile: Genomic Markers for Patients with Cardiovascular Disease Project #[id number] PI: Ricardo Yang MD Please call [phone] with study related questions INTERFACED RESULT 11/17/2008 10/17/2011 GENOMICS CARDIO RESEARCH OTHER*[id number] 200806/25/2016 Overview: Renamed Per Clinical Trials Billing Project. Study Titile: Genomic Markers for Patients with Cardiovascular Disease Project #[id number] PI: Ricardo Yang MD Please call [phone] with study related questions CLASS I-II ANGINA [...] as of this encounter (statuses as of 08/08/2022) Immunizations Name Administration Dates Next Due Pneumococcal [...] Comments:quit 30 yrs ago, [place] [employer] [place] Alcohol Use Standard Drinks/Week [...] not hesitate in calling our office at [phone] to have it evaluated. documented in this encounter Progress Notes * Joanie Hector MD - 08/08/2022 9:41 AM EDT Dirk Garcia [id number] Chief Complaint: Chief Complaint Patient presents with Skin Check Skin check - Hx MM on back in 2017. No current concerns Dirk Garcia is a 87 year old male with history of malignant melanoma, seen today to be monitored for recurrence at previously treated sites and to be evaluated for the development of new lesions. No lesions that are changing, itchy, painful, or bleeding. No specific concerns today. Melanoma History: Location: L upper back Year: 2016 Depth: MIS Treatment: WLE (positive margins on initial excision, then re-excised again with wider margins) Staging: Stage 0 - [id number] - Melanoma in situ Additional Derm History: [...] coronary artery disease 11/17/2008 Coronary atherosclerosis of [place] coronary artery DM type 2, goal A1c below 7 DM type 2, goal A1C to be determined (HCC) Dyslipidemia, goal LDL below 160 Dyslipidemia, goal LDL below 70 05/01/2009 Per Lipid Taxonomy. Enlarged aorta (HCC) 09/15/2009 Aortic root 4.4 cm 4.29.2010 echo at [facility]. HTN, goal below 130/80 06/14/2009 Per HTN [...] 1 GRAFT performed by MAXIMILIANO CASILLAS at [facility] CABG, ARTERY-VEIN, TWO 11/25/08 CORONARY ARTERY BYPASS GRAFT ARTERIAL AND VENOUS 2 GRAFTS [place]ILIAN[place] [facility] [place] HEART THRU SKIN Cardiac Catheterization, Left Heart CATHETERIZE LEFT HEART THRU SKIN 11/17/08 LEFT HEART CATH, PERCUTANEOUS performed by DRAKE MALONE at [facility] [place] LEFT HEART THRU SKIN 09/15/09 LEFT HEART CATH, PERCUTANEOUS performed by RICARDO YANG at [facility] [place] COLONOSCOPY THRU STOMA, W/BIOPSY jan 2002 adenomatous and hyperplastic polyps, next in jan 2005 CORONARY ANGIOGRAPHY W/LEFT HEART CATH 11/25/2011 CORONARY ANGIOGRAPHY W/LEFT HEART CATH performed by Jermaine Leary DO at [facility] [place] DESTRUCTION PREMALIGNANT LESION 1ST about 2001 facial lesion. ENDO,VIDEO ASSIST HARVEST WALE 11/25/08 ENDOSCOPY VIDEO ASSISTED HARVEST VEIN performed by MAXIMILIANO CASILLAS [place] [facility] [place] OF APPENDIX age 21 Family History Problem Relation Age of Onset Stroke Mother age 45, Heart Disorder Father old age, age 83 Neurological Disorder Father Alzheimer Social History Tobacco Use Smoking status: Former Packs/day: 0.50 Years: 5.00 Pack years: 2.50 Types: Cigarettes Quit date: 05/19/1984 Years since quittin.2 Smokeless tobacco: Never Tobacco comments: quit 30 yrs ago, while [place] [employer] [place] 4 years Vaping Use Vaping Use: [...] Hector MD 08/08/2022 9:41 AM CC: Ref: SELF[[id number]] NO STREET ADDRESS AVAILABLE None (office) None (fax) documented in this encounter Nursing Notes * Kristin Byrd LPN - 08/08/2022 9:49 AM EDT Chief Complaint Patient presents with Skin Check Skin check - Hx MM on back in 2017. No current concerns documented in this encounter Plan of Treatment Upcoming Encounters Date Type Specialty Care Team Description 08/09/2022 Office Visit Family Medicine Carola Arrington MD [address] [place] [address] 10/09/2022 Office Visit Pharmacy [facility] [address] [place] [address] 11/25/2022 Office Visit Cardiology Azael Lozano MD [address] [place] [address] 08/14/2023 Office Visit Dermatology Lyssa Gar MD [address] [place] [address], [place] [address] Pending Results Name Type Priority Associated Diagnoses Date /Time SURGICAL PATHOLOGY Pathology Routine Skin neoplasm 08/08/2022 10:12 AM EDT Health Maintenance Due Date Last Done Comments DXA Scan 1935 COVID-19 Vaccine (#1) 1935 Zoster Vaccines (1 of 2) 1986 COLONOSCOPY-EVERY 5 YRS AGES 18-100 03/20/2021 03/20/2016, 04/30/2010, 02/05/2002 CKD PHOS USE SMARTSET 83182 09/15/2021 04/, 04/18/2020, 04/27/2019, Additional history exists Depression Screening, Annual for Pts 12 and Over 10/26/2021 10/26/2020 Influenza Vaccine (FLU shot) (#1) 2022 02/21/2020, 03/02/2019, 03/01/2018, Additional history exists CKD HGB USE SMARTSET 56654 01/26/202201/26, 01/26/2021, 09/15/2020, Additional history exists DTaP,Tdap,and [...] as of this encounter Visit Diagnoses Diagnosis Skin neoplasm- Primary Neoplasm of unspecified nature of bone, soft tissue, and skin Scar conditions and fibrosis of skin Scar condition and fibrosis of skin History of malignant melanoma of skin Personal history of malignant melanoma of skin History of nonmelanoma skin cancer Personal [...] the patient have Health Care Power of Marionette Performer? Yes, not currently available Code Status History Code Status Date Activated Date Inactivated Comments Full Code 09/15/2009 2:06 PM 09/16/2009 8:49 PM This o rder reflects the patients wishes and were consensually agreed upon. Question Answer Comments Discussion of Advance Directives occurred with: Patient/Family Does the patient have a Living Will? No Does the patient have Health Care Power of Marionette Performer? No Full Code 11/25/2008 1:50 PM 11/29/2008 9:11 PM This order reflects the patients wishes and were consensually agreed upon. Question Answer Comments Discussion of Advance Directives occurred with: Patient Care Teams Camp Nurse Relationship Specialty Start Date End Date Carola Arrington MD [address] [place] [address] PCP - General Internal Medicine 12/19/20 documented as of this encounter
--- OUTSIDE RECORDS SUMMARY | 2023-02-21 02:38 | External Medical Summary | Summary of Care ---
Author Name Unknown Organization [place] [address] Care Team Providers Care Lye Boiler Name Role Phone Carola Arrington MD Primary Care Provider Reason for Visit * Reason Comments eRx-Medication Refill Encounter Details Date Type Department Care Team Description 07/04/2022 Refill Pharmacy, [facility] [address] [place] [address] Carola Arrington MD [address] [facility] [place] [address] DM type 2, goal A1C to be determined ([facility]) Allergies No known active allergiesdocumented as of this encounter (statuses as of 07/04/2022) Medications Medication Sig Dispensed Refills Start Date End Date Status aspirin 81 MG chewable tablet Take 1 Tablet by mouth in the morning. 34 Tab 11 8 Active nitroglycerin (NITROSTAT) 0.4 MG SUBLIndications: Chronic coronary artery disease DISSOLVE 1 TABLET UNDER THE TONGUE EVERY 5 MINUTES FOR CHEST PAIN. UP TO 3 DOSES IN 15 MINUTES. 25 Tab 1 9 Active BD Pen Needle Emperatriz U/F 32G X 4 MM (Insulin Pen Needle)Indicatio ns:Type 2 diabetes mellitus with stage 3b chronic kidney disease, without long-term current use of insulin (HCC),DM type 2, goal A1C to be determined ([facility]) Use with insulin pen once daily 100 Each 5 1 Active Losartan Potassium 50 MG Oral Tablet (Cozaar) TAKE 2 TABLETS BY MOUTH EVERY DAY 180 Tablet 3 2 Active Rosuvastatin Calcium 20 MG Oral Tablet (Crestor)Indicat ions:Dyslipidemi a, goal LDL below 70,Dyslipidemia, goal LDL below 160,Mixed dyslipidemia Take by mouth 1 Tablet in the morning. 90 Tablet 4 2 Active Metoprolol Succinate ER 25 MG Oral Tablet Extended Release 24 Hour (toPROL XL)Indications:C hronic coronary artery disease,Aortocor onary bypass status,HTN, goal below 140/90 TAKE 2 TABLETS BY MOUTH EVERY DAY 180 Tablet 3 2 Active Ranolazine ER 1000 MG Oral Tablet Extended Release 12 HourIndications: Chest pain,Unstable angina (HCC) TAKE 1 TABLET TWICE A DAY 180 Tablet 3 2 Active Clopidogrel Bisulfate 75 MG Oral Tablet (pLAVix)Indicati ons:Aortocoronar y bypass status,Acute coronary syndrome (HCC),Chronic coronary artery disease,Enlarged aorta (HCC) TAKE 1 TABLET BY MOUTH EVERY DAY 100 Tablet 1 2 Active amLODIPine Besylate 5 MG Oral Tablet (Norvasc)Indicat ions:HTN, goal below 130/80 TAKE 1 TABLET BY MOUTH EVERY DAY 90 Tablet 3 2 Active Lantus SoloStar 100 UNIT/ML Subcutaneous Solution Pen-injector (Insulin Glargine Solostar)Indicat ions:DM type 2, goal A1C to be determined ([facility]),Type 2 diabetes mellitus with stage [...] WITH FOOD 270 Tablet 1 3 Active metFORMIN HCl ER 500 MG Oral Tablet Extended Release 24 Hour (Glucophage XR)Indications:D M type 2, goal A1C to be determined (HCC) TAKE 3 TABLETS BY MOUTH EVERY DAY WITH FOOD 270 Tablet 1 2 07/04/19 23 Discontinued documented as of this encounter (statuses as of 07/04/2022) Active Problems Problem Noted Date Hx of melanoma of skin 07/19/2021 Overview: Location: L upper back Year: 2016 Depth: MIS Treatment: WLE (positive margins on initial excision, then re-excised again with wider margins) Staging: Stage 0 - [id number] - Melanoma in situ Type 2 diabetes [...] as of this encounter (statuses as of 07/04/2022) Resolved Problems Problem Noted Date Resolved Date [...] Aortic root 4.4 cm 4.29.2009 echo at [facility]. HTN, goal below 130/80 06/14/2009 2 Overview: Per HTN Taxonomy. Type 2 diabetes mellitus wit h hemoglobin A1c goal of less than 7.0% 03/02/2009 03/27/2011 Overview: Modified per Diabetes protocol #14. ICD-10 update of inactive term EXAMINATION OF PARTICIPANT IN CLINICAL TRIAL-gen omics 11/17/2008 09/01/2009 Overview: Renamed Per Clinical Trials Billing Project. Study Titile: Genomic Markers for Patients with Cardiovascular Disease Project #[id number] PI: Francoise Tomlin MD Please call [phone] with study related questions INTERFACED RESULT 11/17/2008 10/17/2011 GENOMICS CARDIO RESEARCH OTHER*[id number] 200806/25/2016 Overview: Renamed Per Clinical Trials Billing Project. Study Titile: Genomic Markers for Patients with Cardiovascular Disease Project #[id number] PI: Francoise Tomlin MD Please call [phone] with study related questions CLASS I-II ANGINA [...] as of this encounter (statuses as of 07/04/2022) Immunizations Name Administration Dates Next Due Pneumococcal [...] Comments:quit 30 yrs ago, wh ile in [place] for 4 years Alcohol Use Standard Drinks/Week [...] encounter Miscellaneous Notes * Telephone Encounter - Carola Arrington MD - 07/04/2022 5:44 PM EST Signed Prescriptions: Disp Refills metFORMIN HCl ER 500 MG Oral Tablet Extend*270 Ta*1 Sig: TAKE 3 TABLETS BY MOUTH EVERY DAY WITH FOODAuthorizing Provider: ARRINGTON, CAROLA ZHANG * Telephone Encounter - Columba Bridges LPN - 07/04/2022 10:13 AM ESTPending Prescriptions: Disp Refills metFORMIN HCl ER 500 MG Oral Tablet Extend*270 Ta*1 Sig: TAKE 3 TABLETS BY MOUTH EVERY DAY WITH FOOD * Telephone Encounter - Columba Bridges LPN - 07/04/2022 10:12 AM EST Pending Prescriptions: Disp Refills metFORMIN HCl ER 500 MG Oral Tablet Exten*270 Ta*1 Sig: TAKE 3 TABLETS BY MOUTH EVERY DAY WITH FOOD Last Visit: 03/06/2022 (in office), Visit date not found (telemedicine) Next Visit: 07/10/2022 Last date the medication was ordered: 12/31/21 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 Dyslipidemia, goal LDL below 70 E78.5 S/P angioplasty with stent Z95.820 DM type 2, goal A1C to be determined ([facility]) E11.9 HTN, goal below 140/90 I10 History of colon polyps Z86.010 Stable angina ([facility]) I20.8 Hypertensive kidney disease with stage 3b chronic kidney disease I12.9, N18.32 Type 2 diabetes mellitus with stage 3b chronic kidney disease (HCC) E11.22, N18.32 Chronic kidney disease, stage 3b (HCC) N18.32 Hx of melanoma of skin Z85.820 Labs: Lab Results Component Value Date/Time CREATININE - [facility] 1.5 (H) 12/04/2021 11:51 AM CREATININE - [facility] 1.9 (H) 04/18/2020 08:29 AM CREATININE, RANDOM URINE - [facility] 26 08/08/2021 11:25 AM CREATININE, RANDOM URINE - [facility] 185 10/24/2016 11:53 AM Lab Results Component Value Date/Time POTASSIUM - [facility] 5.1 12/04/2021 11:51 AM POTASSIUM - [facility] 5.0 04/18/2020 08:29 AM POTASSIUM POCT - [facility] 3.6 11/25/2008 12:39 PM POTASSIUM, WHOLE BLOOD - [facility] 3.5 11/25/2008 08:00 PM POTASSIUM, WHOLE BLOOD - [facility] RESULTS RECHECKED 11/25/2008 08:00 PM Lab Results Component Value Date/Time TSH - [facility] 2.56 06/21/2020 03:37 PM TSH - [facility] 2.81 01/01/2017 01:44 PM Lab Results Component Value Date/Time LDL CHOLESTEROL (CALCULATED) - [facility] 30 10/27/2019 09:03 AM LDL CHOLESTEROL (CALCULATED) - [facility] 20 11/23/2011 05:00 AM LDL CHOLESTEROL (DIRECT MEASURE) - [facility] 52 09/15/2020 10:32 AM LDL CHOLESTEROL (DIRECT MEASURE) - [facility] NOT APPLICABLE 10/27/2019 09:03 AM LDL CHOLESTEROL (DIRECT MEASURE) - [facility] 50 10/24/2016 11:50 AM LDL CHOLESTEROL (DIRECT MEASURE) - [facility] 48 02/20/2015 03:38 PM Lab Results Component Value Date/Time ALT - [facility] 26 01/26/2021 10:03 AM ALT - [facility] 23 04/18/2020 08:29 AM Hemoglobin AIC Results: Lab Results Component Value Date/Time HEMOGLOBIN A1C - [facility] 8.0 (H) 12/04/2021 11:51 AM HEMOGLOBIN A1C - [facility] 10.9 (H) 08/08/2021 11:25 AM HEMOGLOBIN A1C - [facility] 11.5 (H) 07/12/2021 10:44 AM HEMOGLOBIN A1C - [facility] 9.7 (H) 04/18/2020 08:29 AM HEMOGLOBIN A1C - [facility] 6.4 (H) 10/27/2019 09:03 AM HEMOGLOBIN A1C - [facility] 6.5 (H) 01/12/2019 02:01 PM documented in this encounter Plan of Treatment Upcoming Encounters Date Type Specialty Care Team Description 07/10/2022 Office Visit Pharmacy [facility] [email or web address] [place] [address] 08/08/2022 Office Visit Dermatology Lyssa Gar MD [address] [place] [address] 08/09/2022 Office Visit Family Medicine Carola Arrington MD [email or web address] [place] [address] 11/25/2022 Office Visit Cardiology Azael Lozano MD [address] [place] [address] Health Maintenance Due Date Last Done Comments DXA Scan 1935 COVID-19 Vaccine (#1) 1935 Zoster Vaccines (1 of 2) 1986 COLONOSCOPY-EVERY 5 YRS AGES 18-100 03/20/2021 03/20/2016, 04/30/2010, 02/05/2002 CKD PHOS USE SMARTSET 80080 09/15/2021 04/3 , 04/18/2020, 04/27/2019, Additional history exists Depression Screening, Annual for Pts 12 and Over 10/26/2021 10/26/2020 Influenza Vaccine (FLU shot) (#1) 2022 02/21/2020, 03/02/2019, 03/01/2018, Additional history exists CKD HGB USE SMARTSET 09638 01/26/202201/26, 01/26/2021, 09/15/2020, Additional history exists Yearly B-12 04/27/2022 04/27/2021, 12/05/2019, 04/27/2019, Additional history exists HgA1C 06/06/2022 12/04/2021, 07/18, 07/12/2021, Additional history exists DTaP,Tdap,and Td Vaccines [...] the patient have Health Care Power of Hand Splitter? Yes, not currently available Code Status History Code Status Date Activated Date Inactivated Comments Full Code 09/15/2009 2:06 PM 09/16/2009 8:49 PM This o rder reflects the patients wishes and were consensually agreed upon. Question Answer Comments Discussion of Advance Directives occurred with: Patient/Family Does the patient have a Living Will? No Does the patient have Health Care Power of Hand Splitter? No Full Code 11/25/2008 1:50 PM 11/29/2008 9:11 PM This order reflects the patients wishes and were consensually agreed upon. Question Answer Comments Discussion of Advance Directives occurred with: Patient Care Teams Lye Boiler Relationship Specialty Start Date End Date Carola Arrington MD [address] [place] [address] PCP - General Internal Medicine 12/19/20 documented as of this encounter
--- OUTSIDE RECORDS SUMMARY | 2023-02-21 02:38 | External Medical Summary | Summary of Care ---
Author Name Unknown Organization [place] [address] Care Team Providers Care Motor Winder Name Role Phone Carola Arrington MD Primary Care Provider Reason for Visit * Reason Comments eRx-Medication Refill Encounter Details Date Type Department Care Team Description 06/13/2022 Refill Family Practice [facility] [address] [facility] [place] [address] Carola Arrington MD [address] [facility] [place] [address] Allergies No known active allergiesdocumented as of this encounter (statuses as of 06/14/2022) Medications Medication Sig Dispensed Refills Start Date [...] goal A1C to be determined ([facility]) Use with insulin pen once daily 100 [...] A DAY 180 Tablet 3 2 Active metFORMIN HCl ER 500 MG Oral Tablet Extended Release 24 Hour (Glucophage XR)Indications:D M type 2, goal A1C to be determined ([facility]) TAKE 3 TABLETS BY MOUTH EVERY DAY WITH FOOD 270 Tablet 1 2 Active Clopidogrel Bisulfate 75 MG Oral [...] goal A1C to be determined ([facility]),Type 2 diabetes mellitus with stage 3b chronic kidney disease, without long-term current use of insulin ([facility]) INJECT 22 UNITS SUBCUTANEOUSLY (UNDER THE SKIN) IN THE MORNING OR DIRECTED 15 mL 3 2 Active Isosorbide Mononitrate ER 120 MG Oral Tablet Extended Release 24 Hour (Imdur) TAKE 1 TABLET BY MOUTH EVERY MORNING 90 Tablet 1 3 Active Isosorbide Mononitrate ER 120 MG Oral Tablet Extended Release 24 Hour TAKE 1 TABLET BY MOUTH EVERY MORNING 90 Tablet 1 2 06/14/19 23 Discontinued documented as of this encounter (statuses as of 06/14/2022) Active Problems Problem Noted Date Hx of melanoma of skin 07/19/2021 Overview: Location: L upper back Year: 2016 Depth: MIS Treatment: WLE (positive margins on initial excision, then re-excised again with wider margins) Staging: Stage 0 - [id number] - Melanoma in situ Type 2 diabetes [...] as of this encounter (statuses as of 06/14/2022) Resolved Problems Problem Noted Date Resolved Date [...] Aortic root 4.4 cm 4.29.2009 echo at [facility]. HTN, goal below 130/80 06/14/2009 [...] Markers for Patients with Cardiovascular Disease Project #[id number] PI: Francoise Tomlin MD Please call [phone] with study related questions INTERFACED RESULT 11/17/2008 10/17/2011 GENOMICS CARDIO RESEARCH OTHER*[id number] 200806/25/2016 Overview: Renamed Per Clinical Trials Billing Project. Study Titile: Genomic Markers for Patients with Cardiovascular Disease Project #[id number] PI: Francoise Tomlin MD Please call [phone] with study related questions CLASS I-II ANGINA [...] as of this encounter (statuses as of 06/14/2022) Immunizations Name Administration Dates Next Due Pneumococcal [...] Comments:quit 30 yrs ago, wh ile in [place] [employer] for 4 years Alcohol Use Standard Drinks/Week [...] encounter Miscellaneous Notes * Telephone Encounter - Ta Buchanan [facility] - 06/14/2022 4:46 AM ESTSigned Prescriptions: Disp Refills Isosorbide Mononitrate ER 120 MG Oral Tabl*90 Tab*1 Sig: TAKE 1 TABLET BY MOUTH EVERY MORNINGAuthorizing Provider: CAROLA ARRINGTON User: TA BUCHANAN documented in this encounter Plan of Treatment Upcoming Encounters Date Type Specialty Care Team Description 07/10/2022 Office Visit Pharmacy [facility] [address] [place] [address] 08/08/2022 Office Visit Dermatology Lyssa Gar MD [address] [place] [address] 08/09/2022 Office Visit Family Medicine Carola Arrington MD [address] [place] [address] 11/25/2022 Office Visit Cardiology Azael Lozano MD [address] [place] [address] Health Maintenance Due Date Last Done Comments DXA Scan 1935 COVID-19 Vaccine (#1) 1935 Zoster Vaccines (1 of 2) 1986 COLONOSCOPY-EVERY 5 YRS AGES 18-100 03/20/2021 03/20/2016, 04/30/2010, 02/05/2002 CKD PHOS USE SMARTSET 26985 09/15/2021 04/3 , 04/18/2020, 04/27/2019, Additional history exists Depression Screening, Annual for Pts 12 and Over 10/26/2021 10/26/2020 Influenza Vaccine (FLU shot) (#1) 2022 02/21/2020, 03/02/2019, 03/01/2018, Additional history exists CKD HGB USE SMARTSET 20824 01/26/202201/26, 01/26/2021, 09/15/2020, Additional history exists Yearly [...] the patient have Health Care Power of [place]? Yes, not currently available Code Status History Code Status Date Activated Date Inactivated Comments Full Code 09/15/2009 2:06 PM 09/16/2009 8:49 PM This o rder reflects the patients wishes and were consensually agreed upon. Question Answer Comments Discussion of Advance Directives occurred with: Patient/Family Does the patient have a Living Will? No Does the patient have Health Care Power of [place]? No Full Code 11/25/2008 1:50 PM 11/29/2008 9:11 PM This order reflects the patients wishes and were consensually agreed upon. Question Answer Comments Discussion of Advance Directives occurred with: Patient Care Teams Motor Winder Relationship Specialty Start Date End Date Carola Arrington MD [address] [place] [address] PCP - General Internal Medicine 12/19/20 documented as of this encounter
--- OUTSIDE RECORDS SUMMARY | 2023-02-21 02:38 | External Medical Summary | Summary of Care ---
Author Name Unknown Organization [place] [address] Care Team Providers Care Big Data Platform Architect Name Role Phone Carola Arrington MD Primary Care Provider Reason for Visit * Reason Comments Dosage Adjustment Via Phone (anticoag Cl inic) Diabetes Follow-Up Encounter Details Date Type Department Care Team Description 07/11/2022 Telemedicine Pharmacy, [facility] [address] [place] [address] [facility] [address] [place] [address] Type 2 diabetes mellitus with stage 3b chronic kidney disease, unspecified whether educational assistant insulin use ([facility])* Allergies No known active allergiesdocumented as of this encounter (statuses as of 07/11/2022) Medications Medication Sig Dispensed Refills Start Date [...] to be determined ([facility]) Use with insulin pen once daily 100 [...] as of this encounter (statuses as of 07/11/2022) Active Problems Problem Noted Date Hx of melanoma of skin 07/19/2021 Overview: Location: L upper back Year: 2016 Depth: MIS Treatment: WLE (positive margins on initial excision, then re-excised again with wider margins) Staging: Stage 0 - [id number] - Melanoma in situ Type 2 diabetes [...] as of this encounter (statuses as of 07/11/2022) Resolved Problems Problem Noted Date Resolved Date [...] Aortic root 4.4 cm 4.29.2009 echo at [facility]. HTN, goal below 130/80 06/14/2009 2 Overview: Per HTN Taxonomy. Type 2 diabetes mellitus wit h hemoglobin A1c goal of less than 7.0% 03/02/2009 03/27/2011 Overview: Modified per Diabetes protocol #14. ICD-10 update of inactive term EXAMINATION OF PARTICIPANT IN CLINICAL TRIAL-gen omics 11/17/2008 09/01/2009 Overview: Renamed Per Clinical Trials Billing Project. Study Titile: Genomic Markers for Patients with Cardiovascular Disease Project #[id number] PI: Francoise Tomlin MD Please call [phone] with study related questions INTERFACED RESULT 11/17/2008 10/17/2011 GENOMICS CARDIO RESEARCH OTHER*[id number] 200806/25/2016 Overview: Renamed Per Clinical Trials Billing Project. Study Titile: Genomic Markers for Patients with Cardiovascular Disease Project #[id number] PI: Francoise Tomlin MD Please call [phone] with study related questions CLASS I-II ANGINA [...] as of this encounter (statuses as of 07/11/2022) Immunizations Name Administration Dates Next Due Pneumococcal [...] Comments:quit 30 yrs ago, wh ile in [place] for 4 years Alcohol Use Standard Drinks/Week [...] this encounter Progress Notes * Crystal Morgan, [facility] - 07/11/2022 11:18 AM EST Patient Phone Numbers Hemoglobin AIC Results: Lab Results Component Value Date/Time HEMOGLOBIN A1C - [facility] 9.4 (H) 07/10/2022 09:00 AM HEMOGLOBIN A1C - [facility] 8.0 (H) 12/04/2021 11:51 AM HEMOGLOBIN A1C - [facility] 10.9 (H) 08/08/2021 11:25 AM HEMOGLOBIN A1C - [facility] 9.7 (H) 04/18/2020 08:29 AM HEMOGLOBIN A1C - [facility] 6.4 (H) 10/27/2019 09:03 AM HEMOGLOBIN A1C - [facility] 6.5 (H) 01/12/2019 02:01 PM Current DM Medications: Metformin 500 mg 3 tablets daily Lantus 22 units daily Spoke to patient via phone. Recommending to increase lantus to 25 units daily, patient agreeable. Current DM Medications: Metformin 500 mg 3 tablets daily INCREASE: Lantus 25 units daily Follow up in 3 months as scheduled. After connecting to the patient via telephone, the patient was identified by name and date of . Patient was then informed that this was a telephone call only visit. The patient agreed to participate. Visit Disposition: Routine follow-up Total call duration was 5 minutes. Crystal Morgan, Pharm D Clinical Pharmacist 07/11/2022, 11:21 AM documented in this encounter Plan of Treatment Upcoming Encounters Date Type Specialty Care Team Description 08/08/2022 Office Visit Dermatology Lyssa Gar MD [address] [place] [address], [place] [address] 08/09/2022 Office Visit Family Medicine Carola Arrington MD [address] [place] [address] 10/09/2022 Office Visit Pharmacy [facility] [address] [place] [address] 11/25/2022 Office Visit Cardiology Azael Lozano MD [address] [place] [address] Health Maintenance Due Date Last Done Comments DXA Scan 1935 COVID-19 Vaccine (#1) 1935 Zoster Vaccines (1 of 2) 1986 COLONOSCOPY-EVERY 5 YRS AGES 18-100 03/20/2021 03/20/2016, 04/30/2010, 02/05/2002 CKD PHOS USE SMARTSET 86473 09/15/2021 04/, 04/18/2020, 04/27/2019, Additional history exists Depression Screening, Annual for Pts 12 and Over 10/26/2021 10/26/2020 Influenza Vaccine (FLU shot) (#1) 2022 02/21/2020, 03/02/2019, 03/01/2018, Additional history exists CKD HGB USE SMARTSET 47300 01/26/202201/26, 01/26/2021, 09/15/2020, Additional history exists DTaP,Tdap,and [...] stage 3b chronic kidney disease, unspecified whether educational assistant insulin use (HCC)- Primary documented in this [...] the patient have Health Care Power of Recep? Yes, not currently available Code Status History Code Status Date Activated Date Inactivated Comments Full Code 09/15/2009 2:06 PM 09/16/2009 8:49 PM This o rder reflects the patients wishes and were consensually agreed upon. Question Answer Comments Discussion of Advance Directives occurred with: Patient/Family Does the patient have a Living Will? No Does the patient have Health Care Power of Recep? No Full Code 11/25/2008 1:50 PM 11/29/2008 9:11 PM This order reflects the patients wishes and were consensually agreed upon. Question Answer Comments Discussion of Advance Directives occurred with: Patient Care Teams Big Data Platform Architect Relationship Specialty Start Date End Date Carola Arrington MD [address] [place] [address] PCP - General Internal Medicine 12/19/20 documented as of this encounter
--- OUTSIDE RECORDS SUMMARY | 2023-02-21 02:38 | External Medical Summary | Summary of Care ---
Author [place] [address] Care Team Providers Care Tile Machine Operator Name Role Phone Carola Arrington MD Primary Care Provider Reason for Visit * Reason Onset Date Comments Encounter Created in Error 07/11/2022 Encounter Details Date Type Department Care Team Description 07/11/2022 Telephone Pharmacy, [facility] [address] [facility] [place] [address] [facility] [address] [place], [place] [id number] Encounter Created in Error Allergies No known active allergiesdocumented as of [...] disease, without long-term current use of insulin ([facility]),DM type 2, goal A1C to be determined ([facility]) Use with insulin pen once daily 100 [...] with wider margins) Staging: Stage 0 - [id number] - Melanoma in situ Type 2 diabetes [...] 4.4 cm 4.29.2009 echo at [facility]. HTN, goal below 130/80 06/14/2009 2 Overview: Per HTN Taxonomy. Type 2 diabetes mellitus wit h hemoglobin A1c goal of less than 7.0% 03/02/2009 03/27/2011 Overview: Modified per Diabetes protocol #14. ICD-10 update of inactive term EXAMINATION OF PARTICIPANT IN CLINICAL TRIAL-gen omics 11/17/2008 09/01/2009 Overview: Renamed Per Clinical Trials Billing Project. Study Titile: Genomic Markers for Patients with Cardiovascular Disease Project #[id number] PI: Francoise Tomlin MD Please call [phone] with study related questions INTERFACED RESULT 11/17/2008 10/17/2011 GENOMICS CARDIO RESEARCH OTHER*[id number] 200806/25/2016 Overview: Renamed Per Clinical Trials Billing Project. Study Titile: Genomic Markers for Patients with Cardiovascular Disease Project #[id number] PI: Francoise Tomlin MD Please call [phone] with study related questions CLASS I-II ANGINA [...] Comments:quit 30 yrs ago, wh ile in [employer] for 4 years Alcohol Use Standard Drinks/Week [...] Office Visit Dermatology Lyssa Gar MD [address] [place] [address] 08/09/2022 Office Visit Family Medicine Carola Arrington MD [address] [place] [address] 10/09/2022 Office Visit Pharmacy [facility] [address] [place] [address] 11/25/2022 Office Visit Cardiology Azael Lozano MD [address] [place] [address] Health Maintenance Due Date Last Done Comments DXA Scan 1935 COVID-19 Vaccine (#1) 1935 Zoster Vaccines (1 of 2) 1986 COLONOSCOPY-EVERY 5 YRS AGES 18-100 03/20/2021 03/20/2016, 04/30/2010, 02/05/2002 CKD PHOS USE SMARTSET 50610 09/15/2021 04/, 04/18/2020, 04/27/2019, Additional history exists Depression Screening, Annual for Pts 12 and Over 10/26/2021 10/26/2020 Influenza Vaccine (FLU shot) (#1) 2022 02/21/2020, 03/02/2019, 03/01/2018, Additional history exists CKD HGB USE SMARTSET 66516 01/26/202201/26, 01/26/2021, 09/15/2020, Additional history exists DTaP,Tdap,and [...] the patient have Health Care Power of Government Clerk? Yes, not currently available Code Status History Code Status Date Activated Date Inactivated Comments Full Code 09/15/2009 2:06 PM 09/16/2009 8:49 PM This o rder reflects the patients wishes and were consensually agreed upon. Question Answer Comments Discussion of Advance Directives occurred with: Patient/Family Does the patient have a Living Will? No Does the patient have Health Care Power of Government Clerk? No Full Code 11/25/2008 1:50 PM 11/29/2008 9:11 PM This order reflects the patients wishes and were consensually agreed upon. Question Answer Comments Discussion of Advance Directives occurred with: Patient Care Teams Tile Machine Operator Relationship Specialty Start Date End Date Carola Arrington MD [address] [place] [address] PCP - General Internal Medicine 12/19/20 documented as of this encounter
--- OUTSIDE RECORDS SUMMARY | 2023-02-21 02:38 | External Medical Summary | Summary of Care ---
Author Name Unknown Organization [place] [address] Care Team Providers Care Flat Drier Name Role Phone Carola Arrington MD Primary Care Provider Reason for Visit * Reason Comments Outpatient Testing Encounter Details Date Type Department Care Team Description 07/10/2022 Laboratory Laboratory, [facility] [address] [place] [address] [facility] [address] [place] [address] Type 2 diabetes mellitus with stage 3b chronic kidney disease, unspecified whether terminal operations manager insulin use ([facility]) Allergies No known active allergiesdocumented as [...] to be determined ([facility]) Use with insulin pen once daily 100 [...] to be determined ([facility]) TAKE 3 TABLETS BY MOUTH EVERY DAY WITH FOOD 270 Tablet 1 07/04/2022 Active documented as of this encounter (statuses as of 07/10/2022) Active Problems Problem Noted Date Hx of melanoma of skin 07/19/2021 Overview: Location: L upper back Year: 2016 Depth: MIS Treatment: WLE (positive margins on initial excision, then re-excised again with wider margins) Staging: Stage 0 - [id number] - Melanoma in situ Type 2 diabetes [...] Aortic root 4.4 cm 4.29.2009 echo at [facility]. HTN, goal below 130/80 06/14/2009 [...] Markers for Patients with Cardiovascular Disease Project #[id number] PI: Francoise Tomlin MD Please call [phone] with study related questions INTERFACED RESULT 11/17/2008 10/17/2011 GENOMICS CARDIO RESEARCH OTHER*[id number] 200806/25/2016 Overview: Renamed Per Clinical Trials Billing Project. Study Titile: Genomic Markers for Patients with Cardiovascular Disease Project #[id number] PI: Francoise Tomlin MD Please call [phone] with study related questions CLASS I-II ANGINA [...] Comments:quit 30 yrs ago, wh ile in [employer] for 4 years Alcohol Use Standard Drinks/Week [...] Team Description 08/08/2022 Office Visit Dermatology Lyssa aGr MD [address] [place] [address] 08/09/2022 Office Visit Family Medicine Carola Arrington MD [address] [place] [address] 10/09/2022 Office Visit Pharmacy [facility] [address] [place] [address] 11/25/2022 Office Visit Cardiology Azael Lozano MD [address] [place] [address] Pending Results Name Type Priority Associated Diagnoses Date /Time HEMOGLOBIN A1C Lab Routine Type 2 diabetes mellitus with stage 3b chronic kidney disease, unspecified whether senior living insulin use (HCC) 07/10/2022 9:00 AM EST VITAMIN B12 Lab Routine Type 2 diabetes mellitus with stage 3b chronic kidney disease, unspecified whether terminal operations manager insulin use (HCC) 07/10/2022 9:00 AM EST ALBUMIN / CREATININE RATIO, URINE Lab Routine Type 2 diabetes mellitus with stage 3b chronic kidney disease, unspecified whether terminal operations manager insulin use ([facility]) 07/10/2022 9:04 AM EST Health Maintenance Due Date Last Done Comments DXA Scan 1935 COVID-19 Vaccine (#1) 1936 Zoster Vaccines (1 of 2) 1986 COLONOSCOPY-EVERY 5 YRS AGES 18-100 03/20/2021 03/20/2016, 04/30/2010, 02/05/2002 CKD PHOS USE SMARTSET 70083 09/15/2021/, 04/18/2020, 04/27/2019, Additional history exists Depression Screening, Annual for Pts 12 and Over 10/26/2021 10/26/2020 Influenza Vaccine (FLU shot) (#1) 2022 02/21/2020, 03/02/2019, 03/01/2018, Additional history exists CKD HGB USE SMARTSET 73659 01/26/202201/26, 01/26/2021, 09/15/2020, Additional history exists Yearly [...] stage 3b chronic kidney disease, unspecified whether senior living insulin use (HCC) documented in this encounter [...] the patient have Health Care Power of Crude Oil Driver? Yes, not currently available Code Status History Code Status Date Activated Date Inactivated Comments Full Code 09/15/2009 2:06 PM 09/16/2009 8:49 PM This o rder reflects the patients wishes and were consensually agreed upon. Question Answer Comments Discussion of Advance Directives occurred with: Patient/Family Does the patient have a Living Will? No Does the patient have Health Care Power of Crude Oil Driver? No Full Code 11/25/2008 1:50 PM 11/29/2008 9:11 PM This order reflects the patients wishes and were consensually agreed upon. Question Answer Comments Discussion of Advance Directives occurred with: Patient Care Teams Flat Drier Relationship Specialty Start Date End Date Carola Arrington MD [address] [place] [address] PCP - General Internal Medicine 8/3/21 documented as of this encounter
--- OUTSIDE RECORDS SUMMARY | 2023-02-21 02:38 | External Medical Summary | Summary of Care ---
Author Name Unknown Organization [facility] Address [address] [place] [address] Phone [phone] Care Team Providers Care Geriatric Aide Name Role Phone Gerry Arrington MD Primary Care Provider Reason for Visit * Reason Onset Date Comments eRx-Medication Refill Left Message 07/23/2022 Encounter Details Date Type Department Care Team Description 07/23/2022 [facility] [place] [id number] Gerry Arrington MD [address] [place] [address] Encounter for long-term (current) use of medications*; Aortocoronary bypass status; Acute coronary syndrome ([facility]); Chronic coronary artery disease; Enlarged aorta ([facility]); Type 2 diabetes mellitus with stage 3b chronic kidney disease, without long-term current use of insulin ([facility]); DM type 2, goal A1C to be determined ([facility]) Allergies No known active allergiesdocumented as of this encounter (statuses as of 07/24/2022) Medications Medication Sig Dispensed Refills Start Date [...] disease, without long-term current use of insulin ([facility]) INJECT 22 UNITS SUBCUTANEOUSLY (UNDER [...] EVERY DAY 100 Each 1 3 Active BD Pen Needle Emperatriz U/F 32G X 4 MM (Insulin Pen Needle)Indicatio ns:Type 2 diabetes mellitus with stage 3b chronic kidney disease, without long-term current use of insulin (HCC),DM type 2, goal A1C to be determined (HCC) Use with insulin pen once daily 100 Each 5 1 07/25/19 23 Discontinued Clopidogrel Bisulfate 75 MG Oral Tablet (pLAVix)Indicati ons:Aortocoronar y bypass status,Acute coronary syndrome (HCC),Chronic coronary artery disease,Enlarged aorta (HCC) TAKE 1 TABLET BY MOUTH EVERY DAY 100 Tablet 1 2 07/25/19 23 Discontinued documented as of this encounter (statuses as of 07/24/2022) Active Problems Problem Noted Date Hx of melanoma of skin 07/19/2021 Overview: Location: L upper back Year: 2016 Depth: MIS Treatment: WLE (positive margins on initial excision, then re-excised again with wider margins) Staging: Stage 0 - [id number] - Melanoma in situ Type 2 diabetes [...] as of this encounter (statuses as of 07/24/2022) Resolved Problems Problem Noted Date Resolved Date [...] Markers for Patients with Cardiovascular Disease Project #[id number] PI: Francoise Tomlin MD Please call [phone] with study related questions INTERFACED RESULT 11/17/2008 10/17/2011 GENOMICS CARDIO RESEARCH OTHER*[id number] 200806/25/2016 Overview: Renamed Per Clinical Trials Billing Project. Study Titile: Genomic Markers for Patients with Cardiovascular Disease Project #[id number] PI: Francoise Tomlin MD Please call [phone] with study related questions CLASS I-II ANGINA [...] as of this encounter (statuses as of 07/24/2022) Immunizations Name Administration Dates Next Due Pneumococcal [...] Comments:quit 30 yrs ago, wh ile in [employer] for 4 years Alcohol Use Standard Drinks/Week [...] at Date Recorded Male 10/27/2019 8:32 AM EDT Job Start Date Occupation Industry Not on file Not on file Not on file documented as of this encounter Miscellaneous Notes * Telephone Encounter - Vaughn Aranda MD - 07/24/2022 6:19 PM ESTSigned Prescriptions: Disp Refills Clopidogrel Bisulfate 75 MG Oral Tablet (p*100 Ta*1 Sig: TAKE 1 TABLET BY MOUTH EVERY DAY Authorizing Provider: VAUGHN ARANDA BD Pen Needle Emperatriz 2nd Gen 32G X 4 MM (Ins*100 Ea*1 Sig: USE WITH INSULIN PEN EVERY DAY Authorizing Provider: GERRY ARRINGTON Ordering User: CHRISTINA MONTEMAYOR * Telephone Encounter - Zenaida Luna CPhT - 07/24/2022 11:11 AM ESTPending Prescriptions: Disp Refills Clopidogrel Bisulfate 75 MG Oral Tablet (p*100 Ta*1 Sig: TAKE 1 TABLET BY MOUTH EVERY DAY Signed Prescriptions: Disp Refills BD Pen Needle Emperatriz 2nd Gen 32G X 4 MM (Ins*100 Ea*1 Sig: USE WITH INSULIN PEN EVERY DAY Authorizing Provider: GERRY ARRINGTON Ordering User: CHRISTINA MONTEMAYOR * Telephone Encounter - Zenaida Luna CPhT - 07/24/2022 11:11 AM EST Received message from [facility] regarding patient needing labs. Placed call to patient to advise. Left message on voicemail advising of required labs and to call back for an appointment. Thank you, Zenaida Luna [facility] Retail Experience Specialist [facility] 07/24/2022,11:11 AM * Telephone Encounter - Christina Montemayor [facility] - 07/24/2022 9:43 AM ESTPending Prescriptions: Disp Refills Clopidogrel Bisulfate 75 MG Oral Tablet (p*100 Ta*1 Sig: TAKE 1 TABLET BY MOUTH EVERY DAY Signed Prescriptions: Disp Refills BD Pen Needle Emperatriz 2nd Gen 32G X 4 MM (Ins*100 Ea*1 Sig: USE WITH INSULIN PEN EVERY DAY Authorizing Provider: GERRY ARRINGTON Ordering User: CHRISTINA MONTEMAYOR * Telephone Encounter - Christina Montemayor [facility] - 07/24/2022 9:42 AM EST Provided 0 days supply with 0 refill(s). Per refill protocol patient should have CBC on file withinpast year. Reviewed AMP report, Care Gaps/Health Maintenance, medications list, and for any routinelabs typically ordered for this patient. Lab orders placed. Please contact patient to advise of labs ordered for blood draw.. Fasting is not required. Advise to obtain labs before requesting the next refill. Thanks, Christina Montemayor Clinical Pharmacist [facility] [phone] 07/24/2022, 9:42 AM documented in this encounter Plan of Treatment Upcoming Encounters Date Type Specialty Care Team Description 08/08/2022 Office Visit Dermatology Lyssa Gar MD [address] [place] [address], [place] [address] 08/09/2022 Office Visit Family Medicine Gerry Arrington MD [address] [place] [address] 10/09/2022 Office Visit Pharmacy [facility] Stephanie [address] [place] [address] 11/25/2022 Office Visit Cardiology Azael Lozano MD [address] [place] [address] Scheduled Orders Name Type Priority Associated Diagnoses Orde r Schedule CBC Lab Routine Encounter for long-term (current) use of medications Expected: 07/31/2022 (Approximate), Expires: 07/25/2023 Health Maintenance Due Date Last Done Comments DXA Scan 1935 COVID-19 Vaccine (#1) 1935 Zoster Vaccines (1 of 2) 1986 COLONOSCOPY-EVERY 5 YRS AGES 18-100 03/20/2021 03/20/2016, 04/30/2010, 02/05/2002 CKD PHOS USE SMARTSET 23426 09/15/2021 04/3 , 04/18/2020, 04/27/2019, Additional history exists Depression Screening, Annual for Pts 12 and Over 10/26/2021 10/26/2020 Influenza Vaccine (FLU shot) (#1) 2022 02/21/2020, 03/02/2019, 03/01/2018, Additional history exists CKD HGB USE SMARTSET 89139 01/26/202201/26, 01/26/2021, 09/15/2020, Additional history exists DTaP,Tdap,and [...] Diagnosis Encounter for long-term (current) use of medications- Primary Encounter for long-term (current) use of other medications 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 Yes, not currently available Code Status History Code Status Date Activated Date Inactivated Comments Full Code 09/15/2009 2:06 PM 09/16/2009 8:49 PM This o rder reflects the patients wishes and were consensually agreed upon. Question Answer Comments Discussion of Advance Directives occurred with: Patient/Family Does the patient have a Living Will? No Does the patient have Health Care Power of Onsite Case Manager? No Full Code 11/25/2008 1:50 PM 11/29/2008 9:11 PM This order reflects the patients wishes and were consensually agreed upon. Question Answer Comments Discussion of Advance Directives occurred with: Patient Care Teams Geriatric Aide Relationship Specialty Start Date End Date Gerry Arrington MD [address] [place] [address] PCP - General Internal Medicine 12/19/20 documented as of this encounter
--- OUTSIDE RECORDS SUMMARY | 2023-02-21 02:38 | External Medical Summary | Summary of Care ---
Author Name Unknown Organization [facility] Address [address] [place] [address] Phone [phone] Care Team Providers Care Grievance And Appeals Coordinator Name Role Phone Carola Arrington MD Primary Care Provider Reason for Visit * Reason Comments Skin Check Skin check - Hx MM o n back in 2017. No current concerns Encounter Details Date Type Department Care Team Description 08/08/2022 Office Visit Dermatology [facility] [address] [place] [address] Lyssa Gar MD [address] [place] [address] Skin neoplasm*; Scar conditions and fibrosis of [...] type 2, goal A1C to be determined ([facility]),Type 2 diabetes mellitus with stage 3b chronic kidney disease, without long-term current use of insulin ([facility]) INJECT 22 UNITS SUBCUTANEOUSLY (UNDER THE SKIN) IN THE MORNING OR DIRECTED 15 mL 3 04/16/2022 Active Isosorbide Mononitrate ER 120 MG Oral Tablet Extended Release 24 Hour (Imdur) TAKE 1 TABLET BY MOUTH EVERY MORNING 90 Tablet 1 06/14/2022 Active metFORMIN HCl ER 500 MG Oral Tablet Extended Release 24 Hour (Glucophage XR)Indications:DM type 2, goal A1C to be determined ([facility]) TAKE 3 TABLETS BY MOUTH EVERY DAY [...] type 2, goal A1C to be determined ([facility]) USE WITH INSULIN PEN EVERY DAY 100 [...] with wider margins) Staging: Stage 0 - [id number] - Melanoma in situ Type 2 diabetes [...] Aortic root 4.4 cm 4.29.2009 echo at [facility]. HTN, goal below 130/80 06/14/2009 [...] Markers for Patients with Cardiovascular Disease Project #[id number] PI: Ricardo Yang MD Please call [phone] with study related questions INTERFACED RESULT 11/17/2008 10/17/2011 GENOMICS CARDIO RESEARCH OTHER*[id number] 200806/25/2016 Overview: Renamed Per Clinical Trials Billing Project. Study Titile: Genomic Markers for Patients with Cardiovascular Disease Project #[id number] PI: Ricardo Yang MD Please call [phone] with study related questions CLASS I-II ANGINA [...] Comments:quit 30 yrs ago, wh ile in [employer] for 4 years Alcohol Use Standard Drinks/Week [...] not hesitate in calling our office at [phone] to have it evaluated. documented in this encounter Progress Notes * Joanie Hector MD - 08/08/2022 9:41 AM EDT Dirk Garcia [id number] Chief Complaint: Chief Complaint Patient presents with [...] with wider margins) Staging: Stage 0 - [id number] - Melanoma in situ Additional Derm History: [...] coronary artery disease 11/17/2008 Coronary atherosclerosis of [place] coronary artery DM type 2, goal A1c below 7 DM type 2, goal A1C to be determined (HCC) Dyslipidemia, goal LDL below 160 Dyslipidemia, goal LDL below 70 05/01/2009 Per Lipid Taxonomy. Enlarged aorta (HCC) 09/15/2009 Aortic root 4.4 cm 4.29.2010 echo at [facility]. HTN, goal below 130/80 06/14/2009 [...] 1 GRAFT performed by MAXIMILIANO CASILLAS at [facility] CABG, ARTERY-VEIN, TWO 11/25/08 CORONARY ARTERY BYPASS GRAFT ARTERIAL AND VENOUS 2 GRAFTS performed by MAXIMILIANO CASILLAS at [facility] CATHETERIZE LEFT HEART THRU SKIN Cardiac Catheterization, Left Heart CATHETERIZE LEFT HEART THRU SKIN 11/17/08 LEFT HEART CATH, PERCUTANEOUS performed by DRAKE MALONE at [facility] CATHETERIZE LEFT HEART THRU SKIN 09/15/09 LEFT HEART CATH, PERCUTANEOUS performed by RICARDO YANG at [facility] COLONOSCOPY THRU STOMA, W/BIOPSY jan 2002 adenomatous and hyperplastic polyps, next in jan 2005 CORONARY ANGIOGRAPHY W/LEFT HEART CATH 11/25/2011 CORONARY ANGIOGRAPHY W/LEFT HEART CATH performed by Jermaine Leary DO at [facility] DESTRUCTION PREMALIGNANT LESION 1ST about 2001 facial lesion. ENDO,VIDEO ASSIST HARVEST WALE 11/25/08 ENDOSCOPY VIDEO ASSISTED HARVEST VEIN performed by MAXIMILIANO CASILLAS at [facility] REMOVAL OF APPENDIX age 21 Family History Problem Relation Age of Onset Stroke Mother age 45, Heart Disorder Father old age, age 83 Neurological Disorder Father Alzheimer Social History Tobacco Use Smoking status: Former Packs/day: 0.50 Years: 5.00 Pack years: 2.50 Types: Cigarettes Quit date: 05/19/1984 Years since quittin.2 Smokeless tobacco: Never Tobacco comments: quit 30 yrs ago, while in [employer] for 4 years Vaping Use Vaping Use: [...] Hector MD 08/08/2022 9:41 AM CC: Ref: SELF[[id number]] NO STREET ADDRESS AVAILABLE None (office) None [...] Arrington MD [address] [place] [address] 10/09/2022 Office Visit Pharmacy [facility] [address] [place] [address] 11/25/2022 Office Visit Cardiology Azael Lozano MD [address] [place] [address] 08/14/2023 Office Visit Dermatology Lyssa Gar MD [address] [place] [address], [place] [address] Pending Results Name Type Priority Associated Diagnoses Date /Time SURGICAL PATHOLOGY Pathology Routine Skin neoplasm 08/08/2022 10:12 AM EDT Health Maintenance Due Date Last Done Comments DXA Scan 1935 COVID-19 Vaccine (#1) 1935 Zoster Vaccines (1 of 2) 1986 COLONOSCOPY-EVERY 5 YRS AGES 18-100 03/20/2021 03/20/2016, 04/30/2010, 02/05/2002 CKD PHOS USE SMARTSET 18696 09/15/2021 04/, 04/18/2020, 04/27/2019, Additional history exists Depression Screening, Annual for Pts 12 and Over 10/26/2021 10/26/2020 Influenza Vaccine (FLU shot) (#1) 2022 02/21/2020, 03/02/2019, 03/01/2018, Additional history exists CKD HGB USE SMARTSET 65973 01/26/202201/26, 01/26/2021, 09/15/2020, Additional history exists DTaP,Tdap,and [...] patient have Health Care Power of Pattern Gater? Yes, not currently available Code Status History Code Status Date Activated Date Inactivated Comments Full Code 09/15/2009 2:06 PM 09/16/2009 8:49 PM This o rder reflects the patients wishes and were consensually agreed upon. Question Answer Comments Discussion of Advance Directives occurred with: Patient/Family Does the patient have a Living Will? No Does the patient have Health Care Power of Pattern Gater? No Full Code 11/25/2008 1:50 PM 11/29/2008 9:11 PM This order reflects the patients wishes and were consensually agreed upon. Question Answer Comments Discussion of Advance Directives occurred with: Patient Care Teams Grievance And Appeals Coordinator Relationship Specialty Start Date End Date Carola Arrington MD [address] [place] [address] PCP - General Internal Medicine 12/19/20 documented as of this encounter
--- OUTSIDE RECORDS SUMMARY | 2023-02-21 02:38 | External Medical Summary ---
Author Name Unknown Address Unknown Organization K01:[facility] - [address] [place] [address] Laboratory Report Ordering Provider Test Date Status CASSIA MILTON 07/10/2022 09:00:37 Final Observation Date Value Abnormality Reference (Units ) Status Vitamin B12 07/10/2022 09:00:37 [phone] (pg/mL) Final Performing Location [facility] - [address] [place] [address]
--- OUTSIDE RECORDS SUMMARY | 2023-02-21 02:38 | External Medical Summary ---
Author Name Unknown Address Unknown Organization K01:LABORATORY [facility] - [address] [place] [address] Laboratory Report Ordering Provider Test Date Status CASSIA MILTON 07/10/2022 09:00:37 Final Observation Date Value Abnormality Reference (Units ) Status HbA1C 07/10/2022 09:00:37 9.4 Above high normal 4. 0-5.6 (%) Final Performing Location [facility] - [address] [place] [address]
--- OUTSIDE RECORDS SUMMARY | 2023-02-21 02:38 | External Medical Summary | Summary of Care ---
Author Name Unknown Organization [place] [address] Care Team Providers Care Molding Room Supervisor Name Role Phone Carola Arrington MD Primary Care Provider Reason for Visit * Reason Comments eRx-Medication Refill Encounter Details Date Type Department Care Team Description 07/11/2022 Refill Cardiology, [facility] [address] [place] [address] Azael Lozano MD [address] [facility] [place] [address] HTN, goal below 130/80*; Chronic coronary artery disease Allergies No known active allergiesdocumented as of this encounter (statuses as of 07/12/2022) Medications Medication Sig Dispensed Refills Start Date [...] A1C to be determined ([facility]) Use with insulin pen once daily 100 Each 5 1 Active Rosuvastatin Calcium 20 MG Oral Tablet [...] A1C to be determined ([facility]),Type 2 diabetes mellitus with stage 3b chronic kidney disease, without long-term current use of insulin ([facility]) INJECT 22 UNITS SUBCUTANEOUSLY (UNDER THE [...] A1C to be determined ([facility]) TAKE 3 TABLETS BY MOUTH EVERY DAY WITH FOOD 270 Tablet 1 3 Active Losartan Potassium 50 MG Oral Tablet (Cozaar)Indicati ons:HTN, goal below 130/80,Chronic coronary artery disease TAKE 2 TABLETS BY MOUTH EVERY DAY 180 Tablet 3 3 Active Losartan Potassium 50 MG Oral Tablet (Cozaar) TAKE 2 TABLETS BY MOUTH EVERY DAY 180 Tablet 3 2 07/12/19 23 Discontinued documented as of this encounter (statuses as of 07/12/2022) Active Problems Problem Noted Date Hx of melanoma of skin 07/19/2021 Overview: Location: L upper back Year: 2016 Depth: MIS Treatment: WLE (positive margins on initial excision, then re-excised again with wider margins) Staging: Stage 0 - [id number] - Melanoma in situ Type 2 diabetes [...] as of this encounter (statuses as of 07/12/2022) Resolved Problems Problem Noted Date Resolved Date [...] Markers for Patients with Cardiovascular Disease Project #[id number] PI: Francoise Tomlin MD Please call [phone] with study related questions INTERFACED RESULT 11/17/2008 10/17/2011 GENOMICS CARDIO RESEARCH OTHER*[id number] 200806/25/2016 Overview: Renamed Per Clinical Trials Billing Project. Study Titile: Genomic Markers for Patients with Cardiovascular Disease Project #[id number] PI: Francoise Tomlin MD Please call [phone] with study related questions CLASS I-II ANGINA [...] as of this encounter (statuses as of 07/12/2022) Immunizations Name Administration Dates Next Due Pneumococcal [...] Comments:quit 30 yrs ago, wh ile in [employer] for 4 years Alcohol Use Standard Drinks/Week [...] encounter Miscellaneous Notes * Telephone Encounter - Jermaine Kimball DO - 07/12/2022 8:45 AM ESTSigned Prescriptions: Disp Refills Losartan Potassium 50 MG Oral Tablet (Coza*180 Ta*3 Sig: TAKE 2 TABLETS BY MOUTH EVERY DAY Authorizing Provider: JERMAINE KIBMALL * Telephone Encounter - [place] Trujillo - 07/11/2022 12:36 PM ESTPending Prescriptions: Disp Refills Losartan Potassium 50 MG Oral Tablet [Phar*180 Ta*3 Sig: TAKE 2 TABLETS BY MOUTH EVERY DAY * Telephone Encounter - [place] Trujillo - 07/11/2022 12:35 PM EST Did you pend patient's preferred pharmacy and medication before forwarding?yes Pharmacy[facility] [id number] [place] Pending Prescriptions: Disp Refills Losartan Potassium 50 MG Oral Tablet (Coz*180 Ta*3 Sig: TAKE 2 TABLETS BY MOUTH EVERY DAY Last Visit: 05/22/2022 (in office), 09/17/2019 (telemedicine) Next Visit: 11/25/2022 If no future appointments scheduled, and last appointment is greater than a year ago, please schedule patient for a follow-up appointment Last date the medication was ordered: 07-17-2021 Is this request for a controlled substance?No [...] Office Visit Dermatology Lyssa Gar MD [address] [place] [address] 08/09/2022 Office Visit Family Medicine Carola Arrington MD [address] [place] [address] 10/09/2022 Office Visit Pharmacy [facility] [address] [place] [address] 11/25/2022 Office Visit Cardiology Azael Lozano MD [address] [place] [address] Health Maintenance Due Date Last Done Comments DXA Scan 1935 COVID-19 Vaccine (#1) 1935 Zoster Vaccines (1 of 2) 1986 COLONOSCOPY-EVERY 5 YRS AGES 18-100 03/20/2021 03/20/2016, 04/30/2010, 02/05/2002 CKD PHOS USE SMARTSET 32486 09/15/2021 04/3 , 04/18/2020, 04/27/2019, Additional history exists Depression Screening, Annual for Pts 12 and Over 10/26/2021 10/26/2020 Influenza Vaccine (FLU shot) (#1) 2022 02/21/2020, 03/02/2019, 03/01/2018, Additional history exists CKD HGB USE SMARTSET 27776 01/26/202201/26, 01/26/2021, 09/15/2020, Additional history exists DTaP,Tdap,and [...] as of this encounter Visit Diagnoses Diagnosis HTN, goal below 130/80- Primary Unspecified essential hypertension Chronic coronary artery disease Coronary atherosclerosis of unspecified type of vessel, [place] or graft documented in this encounter Advance Directives Latest [...] the patient have Health Care Power of Mechanical Design Technician? Yes, not currently available Code Status History Code Status Date Activated Date Inactivated Comments Full Code 09/15/2009 2:06 PM 09/16/2009 8:49 PM This o rder reflects the patients wishes and were consensually agreed upon. Question Answer Comments Discussion of Advance Directives occurred with: Patient/Family Does the patient have a Living Will? No Does the patient have Health Care Power of Mechanical Design Technician? No Full Code 11/25/2008 1:50 PM 11/29/2008 9:11 PM This order reflects the patients wishes and were consensually agreed upon. Question Answer Comments Discussion of Advance Directives occurred with: Patient Care Teams Molding Room Supervisor Relationship Specialty Start Date End Date Carola Arrington MD [address] [place] [address] PCP - General Internal Medicine 12/19/20 documented as of this encounter
--- OUTSIDE RECORDS SUMMARY | 2023-02-21 02:39 | External Medical Summary | Summary of Care ---
Author Name Unknown Organization [place] [address] Care Team Providers Care Bilingual School Psychologist Name Role Phone Carola Arrington MD Primary Care Provider Reason for Visit * Reason Comments eRx-Medication Refill Encounter Details Date Type Department Care Team Description 01/24/2022 Refill Family Practice [facility] [address] [facility] [place] [address] Carola Arrington MD [address] [facility] [place] [address] Aortocoronary bypass status; Acute coronary syndrome (HCC); Chronic coronary artery disease; Enlarged aorta (HCC) Allergies No known active allergiesdocumented as of this encounter (statuses as of 01/24/2022) Medications Medication Sig Dispensed Refills Start Date End Date Status aspirin 81 MG chewable tablet Take 1 Tab by mouth daily. 34 Tab 11 10/28/2017 Active nitroglycerin (NITROSTAT) 0.4 MG SUBLIndications:C hronic coronary artery disease DISSOLVE 1 TABLET UNDER THE TONGUE EVERY 5 MINUTES FOR CHEST PAIN. UP TO 3 DOSES IN 15 MINUTES. 25 Tab 1 11/17/2018 Active Additional Information Patient not taking. Informant: Patient, Reported on 10/18/2021 amLODIPine Besylate 5 MG Oral Tablet (Norvasc)Indicati ons:HTN, goal below 130/80 TAKE 1 TABLET BY MOUTH EVERY DAY 90 Tablet 3 03/26/2021 Active BD Pen Needle Emperatriz U/F 32G X 4 MM (Insulin Pen Needle)Indication s:Type 2 diabetes mellitus with stage 3b chronic kidney disease, without long-term current use of insulin (HCC),DM type 2, goal A1C to be determined ([facility]) Use with insulin pen once daily 100 Each 5 04/27/2021 Active Losartan Potassium 50 MG Oral Tablet (Cozaar) TAKE 2 TABLETS BY MOUTH EVERY DAY 180 Tablet 3 07/17/2021 Active Lantus SoloStar 100 UNIT/ML Subcutaneous Solution Pen-injector (Insulin Glargine)Indicati ons:DM type 2, goal A1C to be determined ([facility]),Type 2 diabetes mellitus with stage 3b chronic kidney disease, without long-term current use of insulin ([facility]) Inject under the skin 22 Units in the morning. Or as directed. 15 Each 3 07/16/2021 Active Rosuvastatin Calcium 20 MG Oral Tablet [...] goal A1C to be determined ([facility]) TAKE 3 TABLETS BY MOUTH EVERY DAY WITH FOOD 270 Tablet 1 12/31/2021 Active Clopidogrel Bisulfate 75 MG Oral Tablet (pLAVix)Indicatio ns:Aortocoronary bypass status,Acute coronary syndrome (HCC),Chronic coronary artery disease,Enlarged aorta (HCC) TAKE 1 TABLET BY MOUTH EVERY DAY 100 Tablet 1 01/24/2022 Active Clopidogrel Bisulfate 75 MG Oral Tablet (pLAVix)Indicatio ns:Aortocoronary bypass status,Acute coronary syndrome (HCC),Chronic coronary artery disease,Enlarged aorta (HCC) TAKE 1 TABLET BY MOUTH EVERY DAY 100 Tablet 1 08/07/2021 01/25/20 22 Discontinued documented as of this encounter (statuses as of 01/24/2022) Active Problems Problem Noted Date Hx of melanoma of skin 07/19/2021 Overview: Location: L upper back Year: 2016 Depth: MIS Treatment: WLE (positive margins on initial excision, then re-excised again with wider margins) Staging: Stage 0 - [id number] - Melanoma in situ Type 2 diabetes [...] as of this encounter (statuses as of 01/24/2022) Resolved Problems Problem Noted Date Resolved Date [...] Aortic root 4.4 cm 4.29.2009 echo at [facility]. HTN, goal below 130/80 06/14/2009 2 Overview: Per HTN Taxonomy. Type 2 diabetes mellitus wit h hemoglobin A1c goal of less than 7.0% 03/02/2009 03/27/2011 Overview: Modified per Diabetes protocol #14. ICD-10 update of inactive term EXAMINATION OF PARTICIPANT IN CLINICAL TRIAL-gen omics 11/17/2008 09/01/2009 Overview: Renamed Per Clinical Trials Billing Project. Study Titile: Genomic Markers for Patients with Cardiovascular Disease Project #[id number] PI: Francoise Tomlin MD Please call [phone] with study related questions INTERFACED RESULT 11/17/2008 10/17/2011 GENOMICS CARDIO RESEARCH OTHER*[id number] 200806/25/2016 Overview: Renamed Per Clinical Trials Billing Project. Study Titile: Genomic Markers for Patients with Cardiovascular Disease Project #[id number] PI: Francoise Tomlin MD Please call [phone] with study related questions CLASS I-II ANGINA PECTORIS, STABLE 04/26/2002 09/15/2009 Mixed dyslipidemia 04/26/2002 05/01/2009 Overview: Per Lipid Taxonomy. BENIGN NEOPLASM LG BOWEL 01/17/2002 019 HTN, goal below 140/90 08/23/199806/14/201 0 Overview: Per HTN Taxonomy. DM type 2, not at goal 08/23/1998 9 Overview: Modified per Diabetes protocol #14. THREE VESSEL ATHEROSCLEROTIC CORONARY DISEASE 09/15/2009 Dyslipidemia, goal LDL below 160 07/13/2013 documented as of this encounter (statuses as of 01/24/2022) Immunizations Name Administration Dates Next Due Pneumococcal [...] Tobacco Use Types Packs/Day Years Used Date Former Smoker Cigarettes 0.5 5 Quit: 05/19 Smokeless Tobacco: Never Used Comments:quit 30 yrs ago, wh ile in [employer] for 4 years Alcohol Use Standard Drinks/Week Comments Yes 0 (1 standard drink = 0.6 oz pur e alcohol) socially Alcohol Habits Answer Date Recorded How often do you have a drink containing alcohol ? Not asked How many drinks containing a lcohol do you have on a typical day when you are drinking? Not asked How often do you have six or more drinks on one occasion? Not asked Comment: socially 10/27/2019 Food Insecurity Answer Date Recorded Within the [...] encounter Miscellaneous Notes * Telephone Encounter - Nate Montero [facility] - 01/24/2022 1:43 PM EDT Signed Prescriptions: Disp Refills Clopidogrel Bisulfate 75 MG Oral Tablet (p*100 Ta*1 Sig: TAKE 1 TABLET BY MOUTH EVERY DAYAuthorizing Provider: CAROLA ARRINGTON User: NATE MONTERO documented in this encounter Plan of Treatment Upcoming Encounters Date Type Specialty Care Team Description 02/08/2022 Office Visit Family Medicine Carola Arrington MD [address] [facility] [place] [address] 03/06/2022 Office Visit Pharmacy [facility] [address] [place] [address] 05/22/2022 Office Visit Cardiology Azael Lozano MD [address] [place] [address] 08/08/2022 Office Visit Dermatology Lyssa Gar MD [address] [place] [address], [place] [address] Health Maintenance Due Date Last Done Comments DXA Scan 1935 COVID-19 Vaccine (#1) 1935 Zoster Vaccines (1 of 2) 1986 COLONOSCOPY-EVERY 5 YRS AGES 18-100 03/20/2021 03/20/2016, 04/30/2010, 02/05/2002 DIABETES-EYE EXAM 08/16/2021 08/16/2020, , 04/15/2012, Additional history exists CKD PHOS USE SMARTSET 74855 09/15/2021 04/3 , 04/18/2020, 04/27/2019, Additional history exists Depression Screening, Annual for Pts 12 and Over 10/26/2021 10/26/2020 Influenza Vaccine (FLU shot) (#1) 2022 02/21/2020, 03/02/2019, 03/01/2018, Additional history exists CKD HGB USE SMARTSET 92175 01/26/202201/26, 01/26/2021, 09/15/2020, Additional history exists Yearly B-12 04/27/2022 04/27/2021, 05/2019, 04/27/2019, Additional history exists DIABETES-HGBA1C EVERY 6 MONTHS 06/06/2022 12/04/2021, 08/08/2021, 07/12/2021, Additional history exists DTaP,Tdap,and Td Vaccines (2 - Td or Tdap) 07/10/2022 07/10/2012 Alb / Creat Ratio 08/08/2022 08/08/2021, , 02/20/2015, Additional history exists DIABETES-FOOT EXAM 08/08/2022 08/08/2021, 1 06/28/2019, 04/27/2019, Additional history exists Pneumococcal Vaccine: 65+ Years Completed 01/18/2016, 11/20/2004 GARDASIL-HPV IMMUNIZATION SERIES Aged Out No longer eligible based on patient's age to complete this topic Hepatitis B Aged Out No longer eligi ble based on patient's age to complete this topic MENINGOCOCCAL (MENACTRA/MENVEO) Aged Out No longer eligible based on patient's age to complete this topic documented as of this encounter Implants Not on filedocumented as of this encounter Visit Diagnoses Diagnosis Aortocoronary bypass status Postsurgical aortocoronary bypass status Acute coronary syndrome (HCC) Intermediate coronary syndrome Chronic coronary artery disease Coronary atherosclerosis of unspecified type of vessel, [place] or graft Enlarged aorta (HCC) Other specified disorders of arteries and arterioles documented in this encounter Advance Directives Documents on File Type Date Recorded Patient Technical Aid Expl anation Advanced Directive Advanced Directive Advanced Directive Advanced Directive Advanced Directive Advanced Directive Advanced Directive Advanced Directive Advanced Directive Advanced Directive Advanced Directive Advanced Directive Advanced Directive Advanced Directive Advanced Directive Advanced Directive Advanced Directive Advanced Directive Advanced Directive Advanced Directive Advanced Directive Advanced Directive Advanced Directive Advanced Directive Advanced Directive Advanced Directive Advanced Directive Advanced Directive Advanced Directive Advanced Directive Advanced Directive Advanced Directive Advanced Directive Advanced Directive Advanced Directive Advanced Directive Advanced Directive Advanced Directive Advanced Directive Advanced Directive Advanced Directive Advanced Directive Advanced Directive Advanced Directive Advanced Directive Advanced Directive Advanced Directive Advanced Directive Advanced Directive Advanced Directive Advanced Directive Advanced Directive Advanced Directive Advanced Directive Advanced Directive Advanced Directive Advanced Directive Advanced Directive 11/24/2011 3:43 PM Advanced Directive 09/16/2009 12:00 AM Advanced Directive 11/21/2008 12:00 AM Advanced Directive 11/15/2008 12:00 AM Latest Code Status on File Code Status Date Activated Date Inactivated Comments Full Code 11/22/2011 11:38 PM 11/25/2011 9:22 PM This o rder reflects the patients wishes and were consensually agreed upon. Discussion of Advance Directives occurred with: Patient/Family Does the patient have a Living Will? Yes, not cu rrently available Does the patient have Health Care Power of Hyperbaric Tech? Yes, not currently available Full Code 09/15/2009 2:06 PM 09/16/2009 8:49 PM This o rder reflects the patients wishes and were consensually agreed upon. Discussion of Advance Directives occurred with: Patient/Family Does the patient have a Living Will? No Does the patient have Health Care Power of Attor michael? No Full Code 11/25/2008 1:50 PM 11/29/2008 9:11 PM This order reflects the patients wishes and were consensually agreed upon. Discussion of Advance Directives occurred with: Patient Care Teams Bilingual School Psychologist Relationship Specialty Start Date End Date Carola Arrington MD [address] [facility] [place] [address] PCP - General Internal Medicine 12/19/20 documented as of this encounter
--- OUTSIDE RECORDS SUMMARY | 2023-02-21 02:39 | External Medical Summary | Summary of Care ---
Author Name Unknown Organization [place] [address] Care Team Providers Care Agriculture Laboratory Technician Name Role Phone Carola Arrington MD Primary Care Provider Reason for Visit * Reason Comments eRx-Medication Refill Encounter Details Date Type Department Care Team Description 03/14/2022 Refill Cardiology, [facility] [address] [facility] [place] [address] Sushila Lozano MD [address] [place] [address] HTN, goal below 130/80 Allergies No known active allergiesdocumented as of this encounter (statuses as of 03/14/2022) Medications Medication Sig Dispensed Refills Start Date [...] not taking. Informant: Patient, Reported on 10/18/2021 BD Pen Needle Emperatriz U/F 32G X 4 MM (Insulin Pen Needle)Indication s:Type 2 diabetes mellitus with stage 3b chronic kidney disease, without long-term current use of insulin ([facility]),DM type 2, goal A1C to be determined ([facility]) Use with insulin pen [...] without long-term current use of insulin (HCC) Inject under the skin 22 Units in [...] EVERY DAY 90 Tablet 3 03/14/2022 Active amLODIPine Besylate 5 MG Oral Tablet (Norvasc)Indicati ons:HTN, goal below 130/80 TAKE 1 TABLET BY MOUTH EVERY DAY 90 Tablet 3 03/26/2021 03/14/20 22 Discontinued documented as of this encounter (statuses as of 03/14/2022) Active Problems Problem Noted Date Hx of melanoma of skin 07/19/2021 Overview: Location: L upper back Year: 2016 Depth: MIS Treatment: WLE (positive margins on initial excision, then re-excised again with wider margins) Staging: Stage 0 - [id number] - Melanoma in situ Type 2 diabetes [...] as of this encounter (statuses as of 03/14/2022) Resolved Problems Problem Noted Date Resolved Date Hypertensive kidney disease with chronic kidney disease stage III 12/10/2018 03/30/2020 Overview: Per CKD protocol Diabetes mellitus with stage 3 chronic kidney di sease 08/26/2017 09/28/2020 Overview: Per CKD protocol #1 HTN, GOAL BELOW 140/80 01/06/2012 04/07/201 6 Overview: Per HTN Protocol #27. Unstable angina 11/23/2011 10/24/2016 Chest pain 11/22/2011 10/24/2016 NSTEMI (non-ST elevated myocardial infarction) 0 11/22/2011 12/30/2016 Acute coronary syndrome 09/15/2009 10/25/19 17 Enlarged aorta 09/15/2009 04/27/2019 Overview: Aortic root 4.4 cm 4.29.2009 echo at [facility]. HTN, goal below 130/80 06/14/2009 2 Overview: Per HTN Taxonomy. Type 2 diabetes mellitus wit h hemoglobin A1c goal of less than 7.0% 03/02/2009 03/27/2011 Overview: Modified per Diabetes protocol #14. ICD-10 update of inactive term EXAMINATION OF PARTICIPANT IN CLINICAL TRIAL-gen omics 11/17/2008 09/01/2009 Overview: Renamed Per Clinical Trials Billing Project. Study Titile: Genomic Markers for Patients with Cardiovascular Disease Project #[id number] PI: Francoise Tomlin MD Please call [phone] with study related questions INTERFACED RESULT 11/17/2008 10/17/2011 GENOMICS CARDIO RESEARCH OTHER*[id number] 200806/25/2016 Overview: Renamed Per Clinical Trials Billing Project. Study Titile: Genomic Markers for Patients with Cardiovascular Disease Project #[id number] PI: Francoise Tomlin MD Please call [phone] with study related questions CLASS I-II ANGINA [...] as of this encounter (statuses as of 03/14/2022) Immunizations Name Administration Dates Next Due Pneumococcal [...] Comments:quit 30 yrs ago, wh ile in [employer] for 4 years Alcohol Use Standard Drinks/Week [...] Telephone Encounter - Sushila Lozano MD - 03/14/2022 2:29 PM EDT Signed Prescriptions: Disp Refills amLODIPine Besylate 5 MG Oral Tablet (Norv*90 Tab*3 Sig: TAKE 1 TABLET BY MOUTH EVERY DAY Authorizing Provider: SUSHILA LOZANO * Telephone Encounter - Emma Beauchamp LPN - 03/14/2022 11:06 AM EDT Pending Prescriptions: Disp Refills amLODIPine Besylate 5 MG Oral Tablet (Nor*90 Tab*3 Sig: TAKE 1 TABLET BY MOUTH EVERY DAY * Telephone Encounter - Emma Beauchamp LPN - 03/14/2022 11:05 AM EDT Did you pend patient's preferred pharmacy and medication before forwarding?yes Pharmacy: [facility] [id number] [place] Pending Prescriptions: Disp Refills amLODIPine Besylate 5 MG Oral Tablet (Nor*90 Tab*3 Sig: TAKE 1 TABLET BY MOUTH EVERY DAY Last Visit: 10/18/2021 (in office), 09/17/2019 (telemedicine) Next Visit: 05/22/2022 If no future appointments scheduled, and last appointment is greater than a year ago, please schedule patient for a follow-up appointment Last date the medication was ordered: 03/26/2021 Is this request for a controlled substance?No [...] AM ALT 23 04/18/2020 08:29 AM HGBA1C 8.0 (H) 12/04/2021 11:51 AM HGBA1C 9.7 (H) 04/18/2020 08:29 AM documented in this encounter Plan of Treatment Upcoming Encounters Date Type Specialty Care Team Description 05/22/2022 Office Visit Cardiology Sushila Lozano MD [address] [place] [address] 07/10/2022 Office Visit Pharmacy [facility] [address] [place] [address] 08/08/2022 Office Visit Dermatology Lyssa Gar MD [address] [place] [address], [place] [address] 08/09/2022 Office Visit Family Medicine Carola Arrington MD [address] [place] [address] Health Maintenance Due Date Last Done Comments DXA Scan 1935 COVID-19 Vaccine (#1) 1935 Zoster Vaccines (1 of 2) 1986 COLONOSCOPY-EVERY 5 YRS AGES 18-100 03/20/2021 03/20/2016, 04/30/2010, 02/05/2002 CKD PHOS USE SMARTSET 51961 09/15/2021 04/3 , 04/18/2020, 04/27/2019, Additional history exists Depression Screening, Annual for Pts 12 and Over 10/26/2021 10/26/2020 Influenza Vaccine (FLU shot) (#1) 2022 02/21/2020, 03/02/2019, 03/01/2018, Additional history exists CKD HGB USE SMARTSET 83800 01/26/202201/26, 01/26/2021, 09/15/2020, Additional history exists Yearly [...] encounter Visit Diagnoses Diagnosis HTN, goal below 130/80 Unspecified essential hypertension documented in this encounter Advance Directives Documents on File Type Date Recorded Patient Breaking Machine Operator Expl anation Advanced Directive Advanced Directive Advanced [...] the patient have Health Care Power of Director Of Construction? Yes, not currently available Full Code 09/15/2009 [...] Advance Directives occurred with: Patient Care Teams Agriculture Laboratory Technician Relationship Specialty Start Date End Date Carola Arrington MD [address] [facility] [place] [address] PCP - General Internal Medicine 12/19/20 documented as of this encounter
--- OUTSIDE RECORDS SUMMARY | 2023-02-21 02:39 | External Medical Summary | Summary of Care ---
Author Name Unknown Organization [place] [address] Care Team Providers Care Engineering Agent Name Role Phone Carola Arrington MD Primary Care Provider Reason for Visit * Reason Comments Dosage Adjustment Via Phone (anticoag Cl inic) Diabetes Follow-Up Encounter Details Date Type Department Care Team Description 12/05/2021 Pharmacy Pharmacy, [facility] [address] [place] [id number] [facility] [address] [place] [address] Type 2 diabetes mellitus with stage 3b chronic kidney disease, unspecified whether shelter insulin use (HCC)* Allergies No known active allergiesdocumented as of this encounter (statuses as of 12/05/2021) Medications Medication Sig Dispensed Refills Start Date [...] 10/18/2021 amLODIPine Besylate 5 MG Oral Tablet (Norvasc)Indication s:HTN, goal below 130/80 TAKE 1 TABLET BY MOUTH EVERY DAY 90 Tablet 3 03/26/2021 Active BD Pen Needle Emperatriz U/F 32G X 4 MM (Insulin Pen Needle)Indications: Type 2 diabetes mellitus with stage 3b chronic kidney disease, without long-term current use of insulin (HCC),DM type 2, goal A1C to be determined (HCC) Use with insulin pen once daily 100 Each 5 04/27/2021 Active Isosorbide Mononitrate ER 120 MG Oral Tablet Extended Release 24 Hour Take by mouth 1 Tablet in the morning. 90 Tablet 1 06/28/2021 Active Losartan Potassium 50 MG Oral Tablet (Cozaar) TAKE 2 TABLETS BY MOUTH EVERY DAY 180 Tablet 3 07/17/2021 Active metFORMIN HCl ER 500 MG Oral Tablet Extended Release 24 Hour (Glucophage XR)Indications:DM type 2, goal A1C to be determined (HCC) Take 3 tablets daily. Take with food. 270 Tablet 1 07/16/2021 Active Lantus SoloStar 100 UNIT/ML Subcutaneous Solution Pen-injector (Insulin Glargine)Indication s:DM type 2, goal A1C to be determined (HCC),Type 2 diabetes mellitus with stage 3b chronic kidney disease, without long-term current use of insulin (HCC) Inject under the skin 22 Units in the morning. Or as directed. 15 Each 3 07/16/2021 Active Clopidogrel Bisulfate 75 MG Oral Tablet (pLAVix)Indications :Aortocoronary bypass status,Acute coronary syndrome (HCC),Chronic coronary artery disease,Enlarged aorta (HCC) TAKE 1 TABLET BY MOUTH EVERY DAY 100 Tablet 1 08/07/2021 Active Rosuvastatin Calcium 20 MG Oral Tablet (Crestor)Indication s:Dyslipidemia, goal LDL below 70,Dyslipidemia, goal LDL below 160,Mixed dyslipidemia Take by mouth 1 Tablet in the morning. 90 Tablet 4 08/22/2021 Active Metoprolol Succinate ER 25 MG Oral Tablet Extended Release 24 Hour (toPROL XL)Indications:Chain Mender shanique coronary artery disease,Aortocorona ry bypass status,HTN, goal below 140/90 TAKE 2 TABLETS BY MOUTH EVERY DAY 180 Tablet 3 08/24/2021 Active Ranolazine ER 1000 MG Oral Tablet Extended Release 12 HourIndications:Trini st pain,Unstable angina (HCC) TAKE 1 TABLET TWICE A DAY 180 Tablet 3 08/30/2021 Active documented as of this encounter (statuses as of 12/05/2021) Active Problems Problem Noted Date Hx of melanoma of skin 07/19/2021 Overview: Location: L upper back Year: 2016 Depth: MIS Treatment: WLE (positive margins on initial excision, then re-excised again with wider margins) Staging: Stage 0 - [id number] - Melanoma in situ Type 2 diabetes [...] as of this encounter (statuses as of 12/05/2021) Resolved Problems Problem Noted Date Resolved Date [...] root 4.4 cm 4.29.2009 echo at [facility]. HTN, goal below 130/80 06/14/2009 2 Overview: Per HTN Taxonomy. Type 2 diabetes mellitus wit h hemoglobin A1c goal of less than 7.0% 03/02/2009 03/27/2011 Overview: Modified per Diabetes protocol #14. ICD-10 update of inactive term EXAMINATION OF PARTICIPANT IN CLINICAL TRIAL-gen omics 11/17/2008 09/01/2009 Overview: Renamed Per Clinical Trials Billing Project. Study Titile: Genomic Markers for Patients with Cardiovascular Disease Project #[id number] PI: Francoise Tomlin MD Please call [phone] with study related questions INTERFACED RESULT 11/17/2008 10/17/2011 GENOMICS CARDIO RESEARCH OTHER*[id number] 200806/25/2016 Overview: Renamed Per Clinical Trials Billing Project. Study Titile: Genomic Markers for Patients with Cardiovascular Disease Project #[id number] PI: Francoise Tomlin MD Please call [phone] with study related questions CLASS I-II ANGINA [...] as of this encounter (statuses as of 12/05/2021) Immunizations Name Administration Dates Next Due Pneumococcal [...] Comments:quit 30 yrs ago, wh ile in [place] for 4 years Alcohol Use Standard Drinks/Week [...] this encounter Progress Notes * Crystal Morgan, [facility] - 12/05/2021 10:59 AM EDT Hemoglobin AIC Results: Lab Results Component Value Date/Time HEMOGLOBIN A1C - [facility] 8.0 (H) 12/04/2021 11:51 AM HEMOGLOBIN A1C - [facility] 10.9 (H) 08/08/2021 11:25 AM HEMOGLOBIN A1C - [facility] 11.5 (H) 07/12/2021 10:44 AM HEMOGLOBIN A1C - [facility] 9.7 (H) 04/18/2020 08:29 AM HEMOGLOBIN A1C - [facility] 6.4 (H) 10/27/2019 09:03 AM HEMOGLOBIN A1C - [facility] 6.5 (H) 01/12/2019 02:01 PM Serum creatinine: 1.5 mg/dL (H) 12/04/21 1151 Estimated creatinine clearance: 34.8 mL/min (A) Patient Phone Numbers Left message for patient via phone. Reviewed A1c, recommended continuing current insulin dose of 22units and metformin 3 tablets daily based on a1c and renal functions. MT to follow up with next appt in February. Crystal Morgan, Pharm D Clinical Pharmacist 12/05/2021, 11:02 AM documented in this encounter Plan of Treatment Upcoming Encounters Date Type Specialty Care Team Description 02/08/2022 Office Visit Family Medicine Carola Arrington MD [address] [place] [address] 03/06/2022 Office Visit Pharmacy [facility] [place] [address] [place] [address] 05/22/2022 Office Visit Cardiology Azael Lozano MD [address] [place] [address] 08/08/2022 Office Visit Dermatology Lyssa Gar MD [address] [place] [address], [place] [address] Health Maintenance Due Date Last Done Comments DXA Scan 1935 COVID-19 Vaccine (#1) 1935 Zoster Vaccines (1 of 2) 1986 COLONOSCOPY-EVERY 5 YRS AGES 18-100 03/20/2021 03/20/2016, 04/30/2010, 02/05/2002 DIABETES-EYE EXAM 08/16/2021 08/16/2020, , 04/15/2012, Additional history exists CKD PHOS USE SMARTSET 93507 09/15/2021 04/3 , 04/18/2020, 04/27/2019, Additional history exists Depression Screening, Annual for Pts 12 and Over 10/26/2021 10/26/2020 Influenza Vaccine (FLU shot) (#1) 2022 02/21/2020, 03/02/2019, 03/01/2018, Additional history exists CKD HGB USE SMARTSET 55168 01/26/202201/26, 01/26/2021, 09/15/2020, Additional history exists Yearly B-12 04/27/2022 04/27/2021, 1205/2019, 04/27/2019, Additional history exists DIABETES-HGBA1C EVERY 6 MONTHS 06/06/2022 12/04/2021, 08/08/2021, 07/12/2021, Additional history exists DTaP,Tdap,and Td Vaccines (2 - Td or Tdap) 07/10/2022 07/10/2012 DIABETES-FOOT EXAM 08/08/2022 08/08/2021, 1 06/28/2019, 04/27/2019, Additional history exists DIABETES-URINE ALBUMIN/CREATININE EVERY 12 MONTHS 08/08/2022 08/08/2021, 10/24/2016, 02/20/2015, Additional history exists Pneumococcal Vaccine: 65+ Years [...] stage 3b chronic kidney disease, unspecified whether director long term care insulin use (HCC)- Primary documented in this encounter Advance Directives Documents on File Type Date Recorded Patient Ip Paralegal Expl anation Advanced Directive Advanced Directive Advanced [...] the patient have Health Care Power of Enologist? Yes, not currently available Full Code 09/15/2009 [...] Advance Directives occurred with: Patient Care Teams Engineering Agent Relationship Specialty Start Date End Date Carola Arrington MD [address] [facility] [place] [address] PCP - General Internal Medicine 12/19/20 documented as of this encounter
--- OUTSIDE RECORDS SUMMARY | 2023-02-21 02:39 | External Medical Summary ---
Author Name Unknown Address Unknown Organization K01:[facility] - [address] [place] [address] Laboratory Report Ordering Provider Test Date Status CASSIA MILTON 12/04/2021 11:51:43 Final Observation Date Value Abnormality Reference (Units ) Status HbA1C 12/04/2021 11:51:43 8.0 Above high normal 4. 0-5.6 (%) Final Performing Location [facility] - [address] [place] [address]
--- OUTSIDE RECORDS SUMMARY | 2023-02-21 02:39 | External Medical Summary | Summary of Care ---
Author Name Unknown Organization [place] [address] Care Team Providers Care Cylinder Inspector And Tester Name Role Phone Carola Arrington MD Primary Care Provider Reason for Visit * Reason Comments eRx-Medication Refill Encounter Details Date Type Department Care Team Description 12/13/2021 Refill Family Practice [facility] [address] [facility] [place] [address] Carola Arrington MD [address] [facility] [place] [address] Allergies No known active allergiesdocumented as of this encounter (statuses as of 12/13/2021) Medications Medication Sig Dispensed Refills Start Date [...] EVERY MORNING 90 Tablet 1 12/13/2021 Active Isosorbide Mononitrate ER 120 MG Oral Tablet Extended Release 24 Hour Take by mouth 1 Tablet in the morning. 90 Tablet 1 06/28/2021 12/14/19 22 Discontinued documented as of this encounter (statuses as of 12/13/2021) Active Problems Problem Noted Date Hx of melanoma of skin 07/19/2021 Overview: Location: L upper back Year: 2016 Depth: MIS Treatment: WLE (positive margins on initial excision, then re-excised again with wider margins) Staging: Stage 0 - [id number] - Melanoma in situ Type 2 diabetes [...] as of this encounter (statuses as of 12/13/2021) Resolved Problems Problem Noted Date Resolved Date [...] Aortic root 4.4 cm 4.29.2009 echo at [facility]. HTN, goal below 130/80 [...] Markers for Patients with Cardiovascular Disease Project #[id number] PI: Francoise Tomlin MD Please call [phone] with study related questions INTERFACED RESULT 11/17/2008 10/17/2011 GENOMICS CARDIO RESEARCH OTHER*[id number] 200806/25/2016 Overview: Renamed Per Clinical Trials Billing Project. Study Titile: Genomic Markers for Patients with Cardiovascular Disease Project #[id number] PI: Francoise Tomlin MD Please call [phone] with study related questions CLASS I-II ANGINA [...] as of this encounter (statuses as of 12/13/2021) Immunizations Name Administration Dates Next Due Pneumococcal [...] Comments:quit 30 yrs ago, wh ile in [employer] for 4 years Alcohol Use Standard Drinks/Week [...] encounter Miscellaneous Notes * Telephone Encounter - Helena Rivera [facility] - 12/13/2021 3:00 PM EDT Signed Prescriptions: Disp Refills Isosorbide Mononitrate ER 120 MG Oral Tabl*90 Tab*1 Sig: TAKE 1 TABLET BY MOUTH EVERY MORNINGAuthorizing Provider: CAROLA ARRINGTON User: HELENA RIVERA documented in this encounter Plan of Treatment Upcoming Encounters Date Type Specialty Care Team Description 02/08/2022 Office Visit Family Medicine Carola Arrington MD [address] [place] [address] 03/06/2022 Office Visit Pharmacy [facility] [address] [place] [address] 05/22/2022 Office Visit Cardiology Azael Lozano MD [address] [place] [address] 08/08/2022 Office Visit Dermatology Lyssa Gar MD [address] [place] [address] [phone] Health Maintenance Due Date Last Done Comments DXA Scan 1935 COVID-19 Vaccine (#1) 1935 Zoster Vaccines (1 of 2) 1986 COLONOSCOPY-EVERY 5 YRS AGES 18-100 03/20/2021 03/20/2016, 04/30/2010, 02/05/2002 DIABETES-EYE EXAM 08/16/2021 08/16/2020, , 04/15/2012, Additional history exists CKD PHOS USE SMARTSET 80511 09/15/2021 04/3 , 04/18/2020, 04/27/2019, Additional history exists Depression Screening, Annual for Pts 12 and Over 10/26/2021 10/26/2020 Influenza Vaccine (FLU shot) (#1) 2022 02/21/2020, 03/02/2019, 03/01/2018, Additional history exists CKD HGB USE SMARTSET 87913 01/26/202201/26, 01/26/2021, 09/15/2020, Additional history exists Yearly B-12 04/27/2022 04/27/2021, 12/0 05/2019, 04/27/2019, Additional history exists DIABETES-HGBA1C EVERY [...] filedocumented as of this encounter Advance Directives Documents on File Type Date Recorded Patient Dumper Expl anation Advanced Directive Advanced Directive Advanced [...] the patient have Health Care Power of Game Artist? Yes, not currently available Full Code 09/15/2009 [...] Advance Directives occurred with: Patient Care Teams Cylinder Inspector And Tester Relationship Specialty Start Date End Date Carola Arrington MD [address] [place] [address] PCP - General Internal Medicine 12/19/20 documented as of this encounter
--- OUTSIDE RECORDS SUMMARY | 2023-02-21 02:39 | External Medical Summary | Summary of Care ---
Author Name Unknown Organization [place] [address] Care Team Providers Care Wool Carder Name Role Phone Carola Arrington MD Primary Care Provider Reason for Visit * Reason Comments Outpatient Testing Encounter Details Date Type Department Care Team Description 10/18/2021 Laboratory Laboratory, [facility] [address] [place] [id number] [facility] [address] [place] [address] Arrived Allergies No known active allergiesdocumented as of this encounter (statuses as of 10/18/2021) Medications Medication Sig Dispensed Refills Start Date [...] Oral Tablet Extended Release 24 Hour (toPROL XL)Indications:Visual Effects Artist shanique coronary artery disease,Aortocorona ry bypass status,HTN, goal below 140/90 TAKE 2 TABLETS BY MOUTH EVERY DAY 180 Tablet 3 08/24/2021 Active Ranolazine ER 1000 MG Oral Tablet Extended Release 12 HourIndications:Trini st pain,Unstable angina (HCC) TAKE 1 TABLET TWICE A DAY 180 Tablet 3 08/30/2021 Active documented as of this encounter (statuses as of 10/18/2021) Active Problems Problem Noted Date Hx of melanoma of skin 07/19/2021 Overview: Location: L upper back Year: 2017 Depth: MIS Treatment: WLE (positive margins on initial excision, then re-excised again with wider margins) Staging: Stage 0 - [id number] - Melanoma in situ Type 2 diabetes [...] as of this encounter (statuses as of 10/18/2021) Resolved Problems Problem Noted Date Resolved Date [...] root 4.4 cm 4.29.2009 echo at [facility]. HTN, goal below 130/80 06/14/2009 [...] Markers for Patients with Cardiovascular Disease Project #[id number] PI: Francoise Tomlin MD Please call [phone] with study related questions INTERFACED RESULT 11/17/2008 10/17/2011 GENOMICS CARDIO RESEARCH OTHER*[id number] 200806/25/2016 Overview: Renamed Per Clinical Trials Billing Project. Study Titile: Genomic Markers for Patients with Cardiovascular Disease Project #[id number] PI: Francoise Tomlin MD Please call [phone] with study related questions CLASS I-II ANGINA [...] as of this encounter (statuses as of 10/18/2021) Immunizations Name Administration Dates Next Due Pneumococcal [...] Comments:quit 30 yrs ago, wh ile in [employer] for 4 years Alcohol Use Standard Drinks/Week [...] Encounters Date Type Specialty Care Team Description 12/04/2021 Office Visit Pharmacy [facility] [address] [place] [address] 02/08/2022 Office Visit Family Medicine Carola Arrington MD [address] [place] [address] 08/08/2022 Office Visit Dermatology Lyssa Gar MD [address] [place], [place] [address] [address] Health Maintenance Due Date Last Done Comments COVID-19 Vaccine (#1) 1940 Dexa Scan 1986 Zoster Vaccines (1 of 2) 1986 COLONOSCOPY-EVERY 5 YRS AGES 18-100 03/20/2021 03/20/2016, 04/30/2010, 02/05/2002 DIABETES-EYE EXAM 08/16/2021 08/16/2020, , 04/15/2012, Additional history exists CKD PHOS USE SMARTSET 19012 09/15/2021 04/, 04/18/2020, 04/27/2019, Additional history exists Depression Screening, Annual for Pts 12 and Over 10/26/2021 10/26/2020 Influenza Vaccine (FLU shot) (Season Ended) 2022 02/21/2020, 03/02/2019, 03/01/2018, Additional history exists CKD HGB USE SMARTSET 31746 01/26/202201/26, 01/26/2021, 09/15/2020, Additional history exists CKD GFR USE SMARTSET 93649 02/08/202208/08, 07/12/2021, 02/07/2021, Additional history exists DIABETES-HGBA1C EVERY 6 MONTHS 02/08/2022 08/08/2021, 07/12/2021, 04/27/2021, Additional history exists Yearly B-12 04/27/2022 04/27/2021, 1205/2019, 04/27/2019, Additional history exists DTaP,Tdap,and Td Vaccines (2 - Td or Tdap) 07/10/2022 07/10/2012 BASIC METABOLIC PANEL (BMP) FOR HTN YEARLY 08/08/2022 08/08/2021, 07/12/2021, 02/07/2021, Additional history exists DIABETES-FOOT EXAM 08/08/2022 08/08/2021, [...] Documents on File Type Date Recorded Patient Instructor Apparel Manufacture Expl anation Advanced Directive Advanced Directive Advanced [...] the patient have Health Care Power of Open Hearth Worker? Yes, not currently available Full Code 09/15/2009 [...] Advance Directives occurred with: Patient Care Teams Wool Carder Relationship Specialty Start Date End Date Carola Arringotn MD [address] [place] [address] PCP - General Internal Medicine 12/19/20 documented as of this encounter
--- OUTSIDE RECORDS SUMMARY | 2023-02-21 02:39 | External Medical Summary | Summary of Care ---
Author Name Unknown Organization [place] [address] Care Team Providers Care Candy Rolling Machine Operator Name Role Phone Carola Arrington MD Primary Care Provider Reason for Visit * Reason Comments Follow Up Encounter Details Date Type Department Care Team Description 10/18/2021 Office Visit Cardiology, 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 coronary artery disease,Aortocorona ry bypass status,HTN, goal below 140/90 TAKE 2 TABLETS BY MOUTH EVERY DAY 180 Tablet 3 08/24/2021 Active Ranolazine ER 1000 MG Oral Tablet Extended Release 12 HourIndications:Trini st pain,Unstable angina (HCC) TAKE 1 TABLET TWICE A DAY 180 Tablet 3 08/30/2021 Active documented as of this encounter (statuses as of 10/19/2021) Active Problems Problem Noted Date Hx of melanoma of skin 07/19/2021 Overview: Location: L upper back Year: 2016 Depth: MIS Treatment: WLE (positive margins on initial excision, then re-excised again with wider margins) Staging: Stage 0 - [id number] - Melanoma in situ Type 2 diabetes [...] as of this encounter (statuses as of 10/19/2021) Resolved Problems Problem Noted Date Resolved Date [...] Aortic root 4.4 cm 4.29.2009 echo at [facility]. HTN, goal below 130/80 06/14/2009 2 Overview: Per HTN Taxonomy. Type 2 diabetes mellitus wit h hemoglobin A1c goal of less than 7.0% 03/02/2009 03/27/2011 Overview: Modified per Diabetes protocol #14. ICD-10 update of inactive term EXAMINATION OF PARTICIPANT IN CLINICAL TRIAL-gen omics 11/17/2008 09/01/2009 Overview: Renamed Per Clinical Trials Billing Project. Study Titile: Genomic Markers for Patients with Cardiovascular Disease Project #[id number] PI: Francoise Tomlin MD Please call [phone] with study related questions INTERFACED RESULT 11/17/2008 10/17/2011 GENOMICS CARDIO RESEARCH OTHER*[id number] 200806/25/2016 Overview: Renamed Per Clinical Trials Billing Project. Study Titile: Genomic Markers for Patients with Cardiovascular Disease Project #[id number] PI: Francoise Tomlin MD Please call [phone] with study related questions CLASS I-II ANGINA [...] as of this encounter (statuses as of 10/19/2021) Immunizations Name Administration Dates Next Due Pneumococcal [...] Comments:quit 30 yrs ago, wh ile in [place] for 4 years Alcohol Use Standard Drinks/Week [...] Sign Reading Time Taken Comments Blood Pressure 158/86 10/18/2021 7:53 AM EDT Pulse 54 10/18/2021 7:53 AM EDT Temperature 35.4 C (95.8 F) 10/18/2021 7:53 AM ED T Respiratory Rate 16 10/18/2021 7:53 AM EDT Oxygen Saturation - - Inhaled Oxygen Concentration - - Weight 68.4 kg (150 lb 11.2 oz) 022 7:53 AM EDT Height - - Body Mass Index 21.02 01/26/2021 8:54 AM EDT documented in this encounter Progress Notes * Azael Lozano MD - 10/18/2021 8:00 AM EDT October 18, 2021 Cardiology Follow Up Referring Provider: PCP: [place] [address] [phone] Chief Complaint: Routine followup coronary artery disease [...] 3 Patient presents today in routine followup. Denies any changes or angina complaints. Notes no dizziness or lightheadedness notes no orthopnea PND or peripheral edema. Notes no fevers chills or unexplained infections. Active age- appropriate about home. Has had only rare anginal symptoms with good control. Blood pressure is somewhat labile elevated often times at physician's appointments but generally controlled when checked. No bleeding difficulties. Appetite and weight are stable. No headache or visual changes. A Complete Review of Systems is as [...] History of colon polyps Z86.010 Stable angina ([facility]) I20.8 Hypertensive kidney disease with [...] Tab by mouth daily. 34 Tab 11 amLODIPine Besylate 5 MG Oral Tablet (Norvasc) TAKE 1 TABLET BY MOUTH EVERY DAY 90 Tablet 3 BD Pen Needle Emperatriz U/F 32G X 4 MM (Insulin Pen Needle) Use with insulin pen once daily 100 Each5 Isosorbide Mononitrate ER 120 MG Oral Tablet Extended Release 24 Hour Take by mouth 1 Tablet inthe morning. 90 Tablet 1 Losartan Potassium 50 MG Oral Tablet (Cozaar) TAKE 2 TABLETS BY MOUTH EVERY DAY 180 Tablet 3 metFORMIN HCl ER 500 MG Oral Tablet Extended Release 24 Hour (Glucophage XR) Take 3 tablets daily. Take with food. 270 Tablet 1 Lantus SoloStar 100 UNIT/ML Subcutaneous Solution Pen-injector (Insulin Glargine) Inject under the skin 22 Units in the morning. Or as directed. 15 Each 3 Clopidogrel Bisulfate 75 MG Oral Tablet (pLAVix) TAKE 1 TABLET BY MOUTH EVERY DAY 100 Tablet 1 Rosuvastatin Calcium 20 MG Oral Tablet (Crestor) Take by mouth 1 Tablet in the morning. 90 Tablet 4 Metoprolol Succinate ER 25 MG Oral Tablet Extended Release 24 Hour (toPROL XL) TAKE 2 TABLETS BY MOUTH EVERY DAY 180 Tablet 3 Ranolazine ER 1000 MG Oral Tablet Extended Release 12 Hour TAKE 1 TABLET TWICE A DAY 180 Tablet3 nitroglycerin (NITROSTAT) 0.4 MG SUBL DISSOLVE 1 TABLET UNDER THE TONGUE EVERY 5 MINUTES FOR CHEST PAIN. UP TO 3 DOSES IN 15 MINUTES. (Patient not taking: Reported on 10/18/2021 ) 25 Tab 1 No current facility-administered medications for this visit. OBJECTIVE/PHYSICAL EXAMINATION: BP 158/86 | Pulse 54 | Temp 35.4 C (95.8 F) | Resp 16 | Wt 68.4 kg (150 lb 11.2 oz) | BMI 21.02kg/m | BSA 1.85 m Repeat BP 132/74 equal in both [...] 86 year old year old male With chronic stable ischemic heart disease, remote coronary bypass grafting, November 2008 with chronicclass 2 3 angina pectoris, stable. No recent change in exercise tolerance or symptoms. EKG unchanged Blood pressure is chronically labile but generally controlled on current therapies. Potassium tendsto run borderline elevated of multiple drug regimen PLAN: Continue current therapies Will continue losartan given renal protective effect. Check BMP today DISPOSITION: Follow-up 6 months with patient report symptoms or complaints in the interim Azael Lozano MD [facility] Cardiology, [address] [facility] [address] Copy to be forwarded to [address] [address] [facility] [place] [address] documented in this encounter Procedure Notes * Faraz Escalante Jr., DO - 10/18/2021 7:59 AM EDT Associated Order(s): EKG REASON FOR STUDY: CAD CONCLUSIONS: Sinus bradycardia Right bundle branch block Abnormal ECG When compared with ECG of 21-JUN-2020 15:04, No significant change was found Ventricular Rate: 51 Atrial Rate: 51 SC Interval: 198 QRS Duration: 156 QT/QTc: 506/466 ms P-R-T Paxton: 68 : 72 : 80 degrees documented in this encounter Nursing Notes * Emma Beacuhamp LPN - 10/18/2021 7:52 AM EDT Examination Room: 15 Name: Dirk Garcia Date of : (1935) Reason for Visit: follow up Interim Hospitalization(s): denies Problems/Concerns: denies Chest Pain/SOB: denies [facility] you [facility] [...] [facility] [address] [place] [address] 02/08/2022 Office Visit Family Medicine Carola Arrington MD [address] [place] [address] 08/08/2022 Office Visit Dermatology Lyssa Gar MD [address] [place] [address] Health Maintenance Due Date Last Done Comments COVID-19 Vaccine (#1) 1940 Dexa Scan 1986 Zoster Vaccines (1 of 2) 1986 COLONOSCOPY-EVERY 5 YRS AGES 18-100 03/20/2021 03/20/2016, 04/30/2010, 02/05/2002 DIABETES-EYE EXAM 08/16/2021 08/16/2020, , 04/15/2012, Additional history exists CKD PHOS USE SMARTSET 64055 09/15/2021 04/3 , 04/18/2020, 04/27/2019, Additional history exists Depression Screening, Annual for Pts 12 and Over 10/26/2021 10/26/2020 Influenza Vaccine (FLU shot) (Season Ended) 2022 02/21/2020, 03/02/2019, 03/01/2018, Additional history exists CKD HGB USE SMARTSET 87829 01/26/202201/26, 01/26/2021, 09/15/2020, Additional history exists DIABETES-HGBA1C EVERY 6 MONTHS 02/08/2022 08/08/2021, 07/12/2021, 04/27/2021, Additional history exists CKD GFR USE SMARTSET 58544 04/19/202210/18, 08/08/2021, 07/12/2021, Additional history exists Yearly B-12 04/27/2022 04/27/2021, 12/0 05/2019, 04/27/2019, Additional history exists DTaP,Tdap,and Td Vaccines (2 - Td or Tdap) 07/10/2022 07/10/2012 DIABETES-FOOT EXAM 08/08/2022 08/08/2021, 1 06/28/2019, 04/27/2019, Additional history exists DIABETES-URINE ALBUMIN/CREATININE EVERY 12 MONTHS 08/08/2022 08/08/2021, 10/24/2016, 02/20/2015, Additional history exists BASIC METABOLIC PANEL (BMP) FOR HTN YEARLY 10/18/2022 10/18/2021, 08/08/2021, 07/12/2021, Additional history exists Pneumococcal Vaccine: 65+ Years [...] Associated Diagnosis Comments BASIC METABOLIC PANEL Routine 10/18/2021 8:33 AM EDT Chronic coronary artery disease Dyslipidemia, goal LDL below 70 Stable angina (HCC) SC ECG ROUTINE ECG W/LEAST 12 LDS W/I&R Routine 10/18/2021 7:59 AM EDT Chronic coronary artery disease documented in this encounter Results * (ABNORMAL) BASIC METABOLIC PANEL (10/18/2021 8:33 AM EDT) BUN 34(H) 6 - 20 mg/dL [facility] Creatinine 1.5(H) 0.6 - 1.2 mg/dL [facility] Estimated Glomerular Filtration Rate 46(L)Comment:eGFR is calculated based on the CKD-EPI 2020 equation >=60 mL/min [facility] Sodium 136 135 - 146 mmol/L [facility] Potassium 4.7 3.5 - 5.1 mmol/L [facility] Chloride 99 98 - 107 mmol/L [facility] CO2 28 22 - 32 mmol/L [facility] Anion Gap 9 7 - 15 mmol/L [facility] Glucose 154(H) 70 - 120 mg/dL [facility] Calcium 10.2 8.4 - 10.2 mg/dL [facility] Specimen Blood - Venous blood specime n (specimen) Performing Organization Address [facility] de Phone Number [facility] [address] [place] [address] * EKG (10/18/2021 7:59 AM EDT) Specimen Procedure Note Faraz Escalante Jr., DO - 10/18/2021 7:59 AM EDT REASON FOR STUDY: CAD CONCLUSIONS: Sinus bradycardia Right bundle branch block Abnormal ECG When compared with ECG of 21-JUN-2020 15:04, No significant change was found Ventricular Rate: 51 Atrial Rate: 51 SC Interval: 198 QRS Duration: 156 QT/QTc: 506/466 ms P-R-T Paxton: 68 : 72 : 80 degrees Performing Organization Address [facility] de Phone Number [facility] documented in this encounter Visit Diagnoses Diagnosis Chronic coronary artery disease- Primary Coronary atherosclerosis of unspecified type of vessel, [place] or graft Dyslipidemia, goal LDL below 70 Other and unspecified hyperlipidemia Stable angina (HCC) Other and unspecified angina pectoris documented in this encounter Advance Directives Documents on File Type Date Recorded Patient Tint Layer Expl anation Advanced Directive Advanced Directive Advanced [...] the patient have Health Care Power of Parts Administrator? Yes, not currently available Full Code 09/15/2009 [...] Advance Directives occurred with: Patient Care Teams Candy Rolling Machine Operator Relationship Specialty Start Date End Date Carola Arrington MD [address] [place] [address] PCP - General Internal Medicine 12/19/20 documented as of this encounter"
--- OUTSIDE RECORDS SUMMARY | 2023-02-21 02:39 | External Medical Summary | Summary of Care ---
Author Name Unknown Organization [place] [address] Care Team Providers Care Lieutenant Governor Name Role Phone Carola Arrington MD Primary Care Provider Reason for Visit * Reason Comments Dosage Adjustment In Person (Anticoag Cl inic) Diabetes Follow-Up Encounter Details Date Type Department Care Team Description 03/06/2022 Office Visit Pharmacy, [facility] [address] [place] [address] [facility] [address] [place] [address] Type 2 diabetes mellitus with stage 3b chronic kidney disease, unspecified whether terminal superintendent insulin use (HCC)* Allergies No known active allergiesdocumented as of this encounter (statuses as of 03/06/2022) Medications Medication Sig Dispensed Refills Start Date [...] Oral Tablet Extended Release 24 Hour (toPROL XL)Indications:Frame Tender shanique coronary artery disease,Aortocorona ry bypass status,HTN, [...] EVERY DAY 100 Tablet 1 01/24/2022 Active documented as of this encounter (statuses as of 03/06/2022) Active Problems Problem Noted Date Hx of melanoma of skin 07/19/2021 Overview: Location: L upper back Year: 2016 Depth: MIS Treatment: WLE (positive margins on initial excision, then re-excised again with wider margins) Staging: Stage 0 - [id number] - Melanoma in situ Type 2 diabetes [...] as of this encounter (statuses as of 03/06/2022) Resolved Problems Problem Noted Date Resolved Date [...] Aortic root 4.4 cm 4.29.2009 echo at [facility]. HTN, goal below 130/80 06/14/2009 2 Overview: Per HTN Taxonomy. Type 2 diabetes mellitus wit h hemoglobin A1c goal of less than 7.0% 03/02/2009 03/27/2011 Overview: Modified per Diabetes protocol #14. ICD-10 update of inactive term EXAMINATION OF PARTICIPANT IN CLINICAL TRIAL-gen omics 11/17/2008 09/01/2009 Overview: Renamed Per Clinical Trials Billing Project. Study Titile: Genomic Markers for Patients with Cardiovascular Disease Project #[id number] PI: Francoise Tomlin MD Please call [phone] with study related questions INTERFACED RESULT 11/17/2008 10/17/2011 GENOMICS CARDIO RESEARCH OTHER*[id number] 200806/25/2016 Overview: Renamed Per Clinical Trials Billing Project. Study Titile: Genomic Markers for Patients with Cardiovascular Disease Project #[id number] PI: Francoise Tomlin MD Please call [phone] with study related questions CLASS I-II ANGINA [...] as of this encounter (statuses as of 03/06/2022) Immunizations Name Administration Dates Next Due Pneumococcal [...] Comments:quit 30 yrs ago, wh ile in [facility] for 4 years Alcohol Use Standard Drinks/Week [...] this encounter Progress Notes * Crystal Morgan, [facility] - 03/06/2022 8:48 AM EDT Medication Therapy [facility] - Diabetes Management Progress Note Dirk Garcia, identified by name and date of , is a 86 year old male being seen for diabetes management/education. Patient presents for return diabetic visit. DIABETES: Current diabetic medications: Metformin ER 500 mg- 3 tablets daily Lantus 22 units daily Serum creatinine: 1.5 mg/dL (H) 12/04/21 1151 Estimated creatinine clearance: 35.1 mL/min (A) Medication Injection Site: Abdomen Lifestyle: Diet: unchanged [...] yes BP Readings from Last 3 Encounters: 02/08/22 150/62 10/18/21 158/86 08/08/21 128/66 Blood pressure at goal: yes HYPERLIPIDEMIA: Patient is taking moderate or high intensity statin: yes HEALTH MAINTENANCE REVIEW: Health Maintenance Due Topic Date Due DXA Scan Never done COVID-19 Vaccine (1) Never done Zoster Vaccines (1 of 2) Never done COLONOSCOPY-EVERY 5 YRS AGES 18-100 03/20/2021 CKD PHOS USE SMARTSET 15967 09/15/2021 Depression Screening, Annual for Pts 12 and Over 10/26/2021 Influenza Vaccine (FLU shot) (1) 01/17/2022 CKD HGB USE SMARTSET 67786 01/26/2022 ASSESSMENT & PLAN: ICD-10-CM 1. Type 2 diabetes mellitus with stage 3b chronic kidney disease, unspecified whether penitentiary insulin use (HCC) E11.22 N18.32 BG Readings Blood sugars controlled. A1c controlled at 8.0%. Medications Reviewed current regimen, patient is adherent to regimen. Recommending to continue current medications. Diet, Exercise, Lifestyle No significant lifestyle changes since last visit. Discussed with patient, patient notes some dizziness, this did improve slightly with increased hydration. Discussed checking BG and BP when this happens, patient notes will consider. . Patient is agreeable to SMBG 0 time(s) daily. Patient aware to contact clinic if any hypoglycemia before next visit. MEDICATION CHANGES: no change Diabetic Medications: Metformin ER 500 mg- 3 tablets daily Lantus 22 units daily HEALTH MAINTENANCE INTERVENTIONS: Labs: Ordered & Scheduled: HgA1c, Urine Microalbumin and Vitamin B12 Immunizations: patient declines flu says will get through his work Foot Exam: Up to Date Eye Exam: Up to Date Annual Wellness Visit: N/A FOLLOW UP: Return to clinic in 12 weeks 07/10/2022 Crystal Morgan [facility] Clinical Pharmacist - [facility] 03/06/2022, 8:48 AM documented in this encounter Plan of Treatment Upcoming Encounters Date Type Specialty Care Team Description 05/22/2022 Office Visit Cardiology Azael Lozano MD [address] [place] [address] 07/10/2022 Office Visit Pharmacy [facility] [address] [place] [address] 08/08/2022 Office Visit Dermatology Lyssa Gar MD [address] [place] [address] 08/09/2022 Office Visit Family Medicine Carola Arrington MD [address] [place] [address] Scheduled Orders Name Type Priority Associated Diagnoses Orde r Schedule HEMOGLOBIN A1C Lab Routine Type 2 diabetes mellitus with stage 3b chronic kidney disease, unspecified whether terminal superintendent insulin use (HCC) Expected: 03/06/2022 (Approximate), Expires: 03/06/2023 VITAMIN B12 Lab Routine Type 2 diabetes mellitus with stage 3b chronic kidney disease, unspecified whether penitentiary insulin use (HCC) Expected: 03/06/2022 (Approximate), Expires: 03/06/2023 ALBUMIN / CREATININE RATIO, URINE Lab Routine Type 2 diabetes mellitus with stage 3b chronic kidney disease, unspecified whether penitentiary insulin use (HCC) Expected: 03/06/2022, Expires: 03/06/2023 Health Maintenance Due Date Last Done Comments DXA Scan 1935 COVID-19 Vaccine (#1) 1935 Zoster Vaccines (1 of 2) 1986 COLONOSCOPY-EVERY 5 YRS AGES 18-100 03/20/2021 03/20/2016, 04/30/2010, 02/05/2002 CKD PHOS USE SMARTSET 94670 09/15/2021 04/3 , 04/18/2020, 04/27/2019, Additional history exists Depression Screening, Annual for Pts 12 and Over 10/26/2021 10/26/2020 Influenza Vaccine (FLU shot) (#1) 2022 02/21/2020, 03/02/2019, 03/01/2018, Additional history exists CKD HGB USE SMARTSET 03184 01/26/202201/26, 01/26/2021, 09/15/2020, Additional history exists Yearly [...] stage 3b chronic kidney disease, unspecified whether penitentiary insulin use (HCC)- Primary documented in this encounter Advance Directives Documents on File Type Date Recorded Patient Non Garment Sewing Machine Operator Expl anation Advanced Directive Advanced [...] the patient have Health Care Power of Soil Conservation Technician? Yes, not currently available Full Code 09/15/2009 [...] Advance Directives occurred with: Patient Care Teams Lieutenant Governor Relationship Specialty Start Date End Date Carola Arrington MD [address] [place] [address] [place] [address] [phone] (Work) PCP - General Internal Medicine 12/19/20 documented as of this encounter
--- OUTSIDE RECORDS SUMMARY | 2023-02-21 02:39 | External Medical Summary | Summary of Care ---
Author Name Unknown Organization [place] [address] Care Team Providers Care Lead Database Administrator Name Role Phone Carola Arrington MD Primary Care Provider Reason for Visit * Reason Onset Date Comments Follow Up Doing well, no c oncerns Ear Flush 02/08/2022 Encounter Details Date Type Department Care Team Description 02/08/2022 Office Visit Family Practice [facility] [address] [address] Carola Arrington MD [address] [facility] [place] [address] Impacted cerumen, right ear*; Type 2 diabetes mellitus with hemoglobin A1c goal of less than 8.0% ([facility]); DM type 2 nursing care encounter ([facility]); HTN, goal below 140/90; Chronic coronary artery disease; Hx of melanoma of skin; Stage 3a chronic kidney disease ([facility]) Allergies No known active allergiesdocumented as of this encounter (statuses as of 02/08/2022) Medications Medication Sig Dispensed Refills Start Date [...] to be determined ([facility]) Use with insulin pen once daily 100 Each 5 04/27/2021 Active Losartan Potassium 50 MG Oral Tablet (Cozaar) TAKE 2 TABLETS BY MOUTH EVERY DAY 180 Tablet 3 07/17/2021 Active Lantus SoloStar 100 UNIT/ML Subcutaneous Solution Pen-injector (Insulin Glargine)Indication s:DM type 2, goal A1C to be determined ([facility]),Type 2 diabetes mellitus with stage 3b chronic kidney disease, without long-term current use of insulin ([facility]) Inject under the skin 22 Units in the morning. Or as directed. 15 Each 3 07/16/2021 Active Rosuvastatin Calcium 20 MG Oral Tablet (Crestor)Indication s:Dyslipidemia, goal LDL below 70,Dyslipidemia, goal LDL below 160,Mixed dyslipidemia Take by mouth 1 Tablet in the morning. 90 Tablet 4 08/22/2021 Active Metoprolol Succinate ER 25 MG Oral Tablet Extended Release 24 Hour (toPROL XL)Indications:Access Clerk shanique coronary artery disease,Aortocorona ry bypass status,HTN, [...] as of this encounter (statuses as of 02/08/2022) Active Problems Problem Noted Date Hx of melanoma of skin 07/19/2021 Overview: Location: L upper back Year: 2016 Depth: MIS Treatment: WLE (positive margins on initial excision, then re-excised again with wider margins) Staging: Stage 0 - [id number] - Melanoma in situ Type 2 diabetes [...] as of this encounter (statuses as of 02/08/2022) Resolved Problems Problem Noted Date Resolved Date [...] 4.4 cm 4.29.2009 echo at [facility]. HTN, goal below 130/80 06/14/2009 [...] Markers for Patients with Cardiovascular Disease Project #[id number] PI: Francoise Tomlin MD Please call [phone] with study related questions INTERFACED RESULT 11/17/2008 10/17/2011 GENOMICS CARDIO RESEARCH OTHER*[id number] 200806/25/2016 Overview: Renamed Per Clinical Trials Billing Project. Study Titile: Genomic Markers for Patients with Cardiovascular Disease Project #[id number] PI: Francoise Tomlin MD Please call [phone] with study related questions CLASS I-II ANGINA [...] as of this encounter (statuses as of 02/08/2022) Immunizations Name Administration Dates Next Due Pneumococcal [...] Comments:quit 30 yrs ago, wh ile in [employer] for 4 years Alcohol Use Standard Drinks/Week [...] Sign Reading Time Taken Comments Blood Pressure 150/62 02/08/2022 10:00 AM EDT Pulse 55 02/08/2022 10:00 AM EDT Temperature 36.5 C (97.7 F) 02/08/2022 10:00 AM E DT Respiratory Rate - - Oxygen Saturation 98% 02/08/2022 10:00 AM EDT Inhaled Oxygen Concentration - - Weight 69 kg (152 lb 3.2 oz) 02/08/2022 10:00 AM EDT Height 180.3 cm (5' 11") 02/08/2022 10:00 AM EDT Body Mass Index 21.23 02/08/2022 10:00 AM EDT documented in this encounter Patient Instructions * Patient Instructions* Marlen Deluca, MED ASSIST - 02/08/2022 9:59 AM EDT Images from the original note were not included. Dear Dirk Garcia, The care of your Diabetes is very important to us. A yearly diabetic eye exam is important to protect your vision. If youre getting an eye exam done outside of [facility] please tell your Eye Doctor to fax or mail us the results of your Diabetic Eye Exam at your next visit. Our Address and Fax Number are listed below to help. Thank you for helping us to improve your Diabetes Care Our Office Address and Fax Number: Carola Arrington MD Family Practice [address] [address] Diabetic Retinopathy: Evaluating Your Eyes Diabetic retinopathy is a condition that happens when diabetes damages blood vessels in the rear ofthe eye. It can lead to vision loss. To help catch it early, have a complete dilated eye exam at least once a year. During the exam, the eye healthcare provider will review your medical history, examine your eyes, and check your vision. Women who are and have pre-existing type 1 or type 2 diabetes have an increased risk of retinopathy. Women with diabetes should have an eye exam before or in the first trimester. They should continue to be monitored every trimester and for 1 year after delivery, depending on the severity of the retinopathy. The retina is the light-sensitive part of the eye that allows you to see. High blood sugar can damage blood vessels of the retina and cause them to leak or bleed. This damage can lead to abnormal blood vessel growth. This condition is called diabetic retinopathy. You may not have symptoms early in the disease. Later, there may be floaters, blurred vision, or poor night vision. There may also be partial or complete vision loss. Early cases of diabetic retinopathy can be treated by carefully controlling blood sugar, blood pressure, and cholesterol. Surgery or laser treatments may help restore lost vision. Laser surgery can shrink abnormal blood vessels or close ones that are leaking. Medicines injected in the eye can help decrease swelling of the retina. Home care Take all medicines, including insulin or oral diabetic medicine, exactly as prescribed. Follow the diet advised by your healthcare provider. If you have high cholesterol, follow a low-fat, low-cholesterol diet. Monitor blood sugars as advised. Try to achieve your ideal weight. If you smoke, quit smoking. Tobacco use worsens the effect of diabetes on your blood vessels. If you have high blood pressure, consider buying an automatic blood pressure machine. These are available at most pharmacies. Use this to monitor your blood pressure. Report your blood pressure readings to your healthcare provider. Exercise regularly. Follow-up care Follow up with your healthcare provider, or as advised. You must have a complete eye exam at least once a year, more often if needed. Untreated diabetic retinopathy can lead to complete loss of vision. Occupational therapists can help you adapt to any vision loss you have, including learning techniques to safely administer insulin. When to seek medical advice Call your healthcare provider right away if any of these occur. Increasing blurriness or any sudden changes in your vision Sudden flashes of light inside your eye New floaters (small dots or strings that seem to be moving across your field of vision) Eye pain, redness, or discharge from your eyelid New dark spots appearing in your field of vision Halos around lights Dimness of vision Partial or complete loss of vision Women with diabetes should have a complete eye exam before becoming , or as soon as possible when they find out they are . Retinopathy sometimes worsens during . Your eye exam Your eye healthcare provider uses an eye chart and other tools to check your vision. Then he or sheexamines your eyes for signs of disease. You are given eye drops to widen (dilate) your pupils. Youmay have one or more of the following tests: Tonometry to measure fluid pressure inside the eye. Slit lamp exam to allow the healthcare provider to view the structures of your eye. Ultrasound to create an image of the eye using sound waves. Ultrasound may be used if blood is found in the clear gel that fills the eye (vitreous). Ocular coherence tomography (OCT) to create an image of the retina using light waves. This showsif there is fluid leaking into certain parts of the eye. It can also measure the thickness of the retina. Fluorescein angiography This test may be done to check the health of the inside lining of the eye (retina). It also checks the tiny blood vessels (capillaries) that carry blood to the retina. During the test: Photographs are taken of the retina. A dye is then injected into the bloodstream through the arm or hand. The dye travels to the capillaries in the eye. More photographs are taken of the retina. The dye causes the capillaries to stand out on the photographs. You may feel brief nausea during the procedure. For a few hours after the test, your skin, eyes, and urine may appear yellow. Talk with your healthcare provider for more information about this test. Date Last Reviewed: 10/18/201519998888-4129 [employer]. [address] [place] [address]. All rights reserved. This information is not intended as a substitute for professional medical care. Always follow your healthcare professional's instructions. documented in this encounter Progress Notes * REGGIE Recinos - 02/08/2022 11:05 AM EDT Ear Irrigation Procedure: Irrigation Solution: Up to 200 ml of solution may be instilled with one Procedure Solution Used: Water 180 ml/ Hydrogen Peroxide 20 ml (Mixed) Ear(s) Irrigated: Right Response: Particulate Returned and Patient Tolerated Well Marlen Deluca, MED ASSIST * Carola Arrington MD - 02/08/2022 10:33 AM EDT Images from the original note were not included. History of Present Illness Dirk Garcia is a 86 year old male that presents for Follow Up (Doing well, no concerns) HPI Diabetes: Following with [facility] pharmacy. A1c improving. Next visit in February. CKD3: Stable, potassium reasonable. CAD/hypertension: Saw Dr. Lozano in October. Bradycardia noted, repeat EKG stable. No changes made to treatment or plans.Patient not having any lightheadedness or dizziness. No falls or balance troubles. 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 Gar in July. Nicotine: quit 56yrs ago MJ: none Alcohol: beer, a couple a week Exercise: walking 1/2 mile a day. Eating: good appetite, no concerns. 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 medication and allergy list reviewed and updated Past medical history problem list reviewed Physical Exam Vitals: 02/08/22 1000 Temp: 36.5 C (97.7 F) Pulse: 55 SpO2: 98% BP: 150/62 BMI: 21.24 Wt Readings from Last 3 Encounters: 02/08/22 69 kg (152 lb 3.2 oz) 10/18/21 68.4 kg (150 lb 11.2 oz) 08/08/21 69.6 kg (153 lb 6.4 oz) Pulse Readings from Last 3 Encounters: 02/08/22 55 10/18/21 54 08/08/21 60 BP Readings from Last 3 Encounters: 02/08/22 150/62 10/18/21 158/86 08/08/21 128/66 Physical Exam Vitals and nursing note reviewed. Constitutional: General: He is not in acute distress. Appearance: Normal appearance. He is not ill-appearing. HENT: Head: Normocephalic and atraumatic. Right Ear: There is impacted cerumen. Left Ear: There is no impacted cerumen. Eyes: General: No scleral icterus. Pupils: Pupils are equal, round, and reactive to light. Neck: Thyroid: No thyroid mass, thyromegaly or thyroid tenderness. Cardiovascular: Rate and Rhythm: Normal rate and regular rhythm. Heart sounds: Murmur heard. Pulmonary: Effort: Pulmonary effort is normal. Breath sounds: Normal breath sounds. Musculoskeletal: Right lower leg: No edema. Left lower leg: No edema. Lymphadenopathy: Cervical: No cervical adenopathy. Skin: General: Skin is warm and dry. Neurological: Mental Status: He is alert. Psychiatric: Comments: Mildly tearful I have reviewed the following results: CMP, Lipid Panel, Hemoglobin A1C and B12 Assessment and Plan Type 2 diabetes mellitus with hemoglobin A1c goal of less than 8.0% ([facility]) Much improved, continue current regimen of insulin metformin, continue meeting with [facility] pharmacy. DM type 2 nursing care encounter (HCC) - TELEMEDICINE DIABETIC EYE HTN, goal below 140/90 Blood pressure is up and down, mostly stable. No change to current regimen. Chronic coronary artery disease Stable, continue follow-up with cardiology in May Hx of melanoma of skin Follow with derm Stage 3a chronic kidney disease (HCC) Stable Discussed several ways he can try a new activities to increase his social connection and daily life. Wrap-Up Time: I spent a total of 30-39 minutes (exact time 30 mins) on the date of service in preparation, delivery, and documentation of the care provided to Dirk Garcia excluding any time spent in theperformance of separately billed services. * REGGIE Recinos - 02/08/2022 9:59 AM EDT The importance of having a yearly diabetic eye exam has been discussed with patient. Order and/or Referral placed along with patient instructions. Provider made aware. REGGIE Recinos documented in this encounter Miscellaneous Notes * Addendum Note - REGGIE Recinos - 02/08/2022 11:05 AM EDT Addended by: MARLEN DELUCA on: 02/08/2022 11:05 AM Modules accepted: Orders, SmartSet documented in this encounter Plan of Treatment Upcoming Encounters Date Type Specialty Care Team Description 03/06/2022 Office Visit Pharmacy [facility] [address] [facility] [place] [address] 05/22/2022 Office Visit Cardiology Azael Lozano MD [address] [facility] [place] [address] 08/08/2022 Office Visit Dermatology Lyssa Gar MD [address] [place] [address], [place] [address] 08/09/2022 Office Visit Family Medicine Carola Arrington MD [address] [facility] [place] [address] Scheduled Orders Name Type Priority Associated Diagnoses Orde r Schedule REMOVAL IMPACTED CERUMEN IRRIGATION/LAVAGE, UNILAT Procedures Routine Impacted cerumen, right ear Ordered: 02/08/2022 Health Maintenance Due Date Last Done Comments DXA Scan 1935 COVID-19 Vaccine (#1) 1935 Zoster Vaccines (1 of 2) 1986 COLONOSCOPY-EVERY 5 YRS AGES 18-100 03/20/2021 03/20/2016, 04/30/2010, 02/05/2002 CKD PHOS USE SMARTSET 36169 09/15/2021 04/3 , 04/18/2020, 04/27/2019, Additional history exists Depression Screening, Annual for Pts 12 and Over 10/26/2021 10/26/2020 Influenza Vaccine (FLU shot) (#1) 2022 02/21/2020, 03/02/2019, 03/01/2018, Additional history exists CKD HGB USE SMARTSET 96025 01/26/202201/26, 01/26/2021, 09/15/2020, Additional history exists Yearly [...] Procedure Name Priority Date/Time Associated Diagnosis Comments TELEMEDICINE DIABETIC EYE Routine 02/08/2022 DM type 2 nursing care encounter (HCC) documented in this encounter Results * TELEMEDICINE DIABETIC EYE (02/08/2022) Specimen Narrative documented in this encounter Visit Diagnoses Diagnosis Impacted cerumen, right ear- Primary Type 2 diabetes mellitus with hemoglobin A1c goal of less than 8.0% (HCC) DM type 2 nursing care encounter (HCC) Type II or unspecified type diabetes mellitus without mention of complication, not stated as uncontrolled HTN, goal below 140/90 Unspecified essential hypertension Chronic coronary artery disease Coronary atherosclerosis of unspecified type of vessel, circle or graft Hx of melanoma of skin Personal history of malignant melanoma of skin Stage 3a chronic kidney disease (HCC) documented in this encounter Advance Directives Documents on File Type Date Recorded 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 Yes, not currently available Full Code 09/15/2009 [...] Advance Directives occurred with: Patient Care Teams Lead Database Administrator Relationship Specialty Start Date End Date Carola Arrington MD [address] [place] [address] PCP - General Internal Medicine 12/19/20 documented as of this encounter
--- OUTSIDE RECORDS SUMMARY | 2023-02-21 02:39 | External Medical Summary | Summary of Care ---
Author Name Unknown Organization [place] [address] Care Team Providers Care Case Liner Name Role Phone Carola Arrington MD Primary Care Provider Reason for Visit * Reason Onset Date Comments Follow Up Doing well, no c oncerns Ear Flush 02/08/2022 Encounter Details Date Type Department Care Team Description 02/08/2022 Office Visit Family Practice [facility] [address] [facility] [address] Carola Arrington MD 132 [facility] [place] [address] Impacted cerumen, right ear*; Type 2 diabetes mellitus with hemoglobin A1c goal of less than 8.0% ([facility]); DM type 2 nursing care encounter ([facility]); HTN, goal below 140/90; Chronic coronary artery disease; Hx of melanoma of skin; Stage 3a chronic kidney disease ([facility]) Allergies No known active allergiesdocumented as [...] be determined ([facility]) Use with insulin pen once daily [...] of insulin ([facility]) Inject under the skin 22 Units in the morning. Or as directed. 15 Each 3 07/16/2021 Active Rosuvastatin Calcium 20 MG Oral Tablet (Crestor)Indication s:Dyslipidemia, goal LDL below 70,Dyslipidemia, goal LDL below 160,Mixed dyslipidemia Take by mouth 1 Tablet in the morning. 90 Tablet 4 08/22/2021 Active Metoprolol Succinate ER 25 MG Oral Tablet Extended Release 24 Hour (toPROL XL)Indications:Vascular Ultrasound Technician shanique coronary artery disease,Aortocorona ry bypass status,HTN, [...] with wider margins) Staging: Stage 0 - [id number] - Melanoma in situ Type 2 diabetes [...] Aortic root 4.4 cm 4.29.2009 echo at [facility]. HTN, goal below 130/80 06/14/2009 [...] Markers for Patients with Cardiovascular Disease Project #[id number] PI: Francoise Tomlin MD Please call [phone] with study related questions INTERFACED RESULT 11/17/2008 10/17/2011 GENOMICS CARDIO RESEARCH OTHER*[id number] 200806/25/2016 Overview: Renamed Per Clinical Trials Billing Project. Study Titile: Genomic Markers for Patients with Cardiovascular Disease Project #[id number] PI: Francoise Tomlin MD Please call [phone] with study related questions CLASS I-II ANGINA [...] Comments:quit 30 yrs ago, wh ile in [email or web address] for 4 years Alcohol Use Standard Drinks/Week [...] getting an eye exam done outside of [facility] please tell your Eye Doctor to fax or mail us the results of your Diabetic Eye Exam at your next visit. Our Address and Fax Number are listed below to help. Thank you for helping us to improve your Diabetes Care Our Office Address and Fax Number: Carola Arrington MD Family Practice [address] [address] Diabetic Retinopathy: Evaluating Your Eyes Diabetic retinopathy [...] information about this test. Date Last Reviewed: 10/18/201519995541-6210 [employer]. [address] [place] [address]. All rights reserved. This information is not [...] well, no concerns) HPI Diabetes: Following with [facility] pharmacy. A1c improving. Next visit in February. [...] concerns. granddaughters play softball tomorrow working [employer]. No longer able to drive a [...] hemoglobin A1c goal of less than 8.0% ([facility]) Much improved, continue current regimen of insulin metformin, continue meeting with [facility] pharmacy. DM type 2 nursing care encounter [...] Care Team Description 03/06/2022 Office Visit Pharmacy [facility] [address] [place] [address] 05/22/2022 Office Visit Cardiology Azael Lozano MD [address] [place] [address] 08/08/2022 Office Visit Dermatology Lyssa Gar MD [address] [place] [address] Scheduled Orders Name Type Priority Associated Diagnoses Orde r Schedule REMOVAL IMPACTED CERUMEN IRRIGATION/LAVAGE, UNILAT Procedures Routine Impacted cerumen, right ear Ordered: 02/08/2022 Health Maintenance Due Date Last Done Comments DXA Scan 1935 COVID-19 Vaccine (#1) 1935 Zoster Vaccines (1 of 2) 1986 COLONOSCOPY-EVERY 5 YRS AGES 18-100 03/20/2021 03/20/2016, 04/30/2010, 02/05/2002 CKD PHOS USE SMARTSET 70236 09/15/2021 04/3 , 04/18/2020, 04/27/2019, Additional history exists Depression Screening, Annual for Pts 12 and Over 10/26/2021 10/26/2020 Influenza Vaccine (FLU shot) (#1) 2022 02/21/2020, 03/02/2019, 03/01/2018, Additional history exists CKD HGB USE SMARTSET 86226 01/26/202201/26, 01/26/2021, 09/15/2020, Additional history exists Yearly [...] Coronary atherosclerosis of unspecified type of vessel, [place] or graft Hx of melanoma of skin Personal history of malignant melanoma of skin Stage 3a chronic kidney disease (HCC) documented in this encounter Advance Directives Documents on File Type Date Recorded 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 Yes, not currently available Full Code 09/15/2009 [...] Advance Directives occurred with: Patient Care Teams Case Liner Relationship Specialty Start Date End Date Carola Arrington MD [address] [place] [address] [place] [address] PCP - General Internal Medicine 12/19/20 documented as of this encounter
--- OUTSIDE RECORDS SUMMARY | 2023-02-21 02:39 | External Medical Summary | Summary of Care ---
Author Name Unknown Organization [place] [address] Care Team Providers Care Windshield Repair Technician Name Role Phone Carola Arrington MD Primary Care Provider Reason for Visit * Reason Comments eRx-Medication Refill Encounter Details Date Type Department Care Team Description 12/31/2021 [address] Pharm[address], [facility] [address] [facility] [place] [address] Carola Arrington MD [address] [facility] [place] [address] DM type 2, goal A1C to be determined (HCC) Allergies No known active allergiesdocumented as of this encounter (statuses as of 12/31/2021) Medications Medication Sig Dispensed Refills Start Date [...] type 2, goal A1C to be determined ([facility]) Use with insulin pen once daily 100 Each 5 04/27/2021 Active Losartan Potassium 50 MG Oral Tablet (Cozaar) TAKE 2 TABLETS BY MOUTH EVERY DAY 180 Tablet 3 07/17/2021 Active Lantus SoloStar 100 UNIT/ML Subcutaneous Solution Pen-injector (Insulin Glargine)Indicati ons:DM type 2, goal A1C to be determined ([facility]),Type 2 diabetes mellitus with stage 3b chronic kidney disease, without long-term current use of insulin (HCC) Inject under the skin 22 Units in the morning. Or as directed. 15 Each 3 07/16/2021 Active Clopidogrel Bisulfate 75 MG Oral Tablet (pLAVix)Indicatio ns:Aortocoronary bypass status,Acute coronary syndrome (HCC),Chronic coronary artery disease,Enlarged aorta ([facility]) TAKE 1 TABLET BY MOUTH EVERY DAY [...] Extended Release 12 HourIndications:C hest pain,Unstable angina ([facility]) TAKE 1 TABLET TWICE A DAY 180 Tablet 3 08/30/2021 Active Isosorbide Mononitrate ER 120 MG Oral Tablet Extended Release 24 Hour TAKE 1 TABLET BY MOUTH EVERY MORNING 90 Tablet 1 12/13/2021 Active metFORMIN HCl ER 500 MG Oral Tablet Extended Release 24 Hour (Glucophage XR)Indications:DM type 2, goal A1C to be determined ([facility]) TAKE 3 TABLETS BY MOUTH EVERY DAY WITH FOOD 270 Tablet 1 12/31/2021 Active metFORMIN HCl ER 500 MG Oral Tablet Extended Release 24 Hour (Glucophage XR)Indications:DM type 2, goal A1C to be determined ([facility]) Take 3 tablets daily. Take with food. 270 Tablet 1 07/16/2021 01/01/20 22 Discontinued documented as of this encounter (statuses as of 12/31/2021) Active Problems Problem Noted Date Hx of melanoma of skin 07/19/2021 Overview: Location: L upper back Year: 2016 Depth: MIS Treatment: WLE (positive margins on initial excision, then re-excised again with wider margins) Staging: Stage 0 - [id number] - Melanoma in situ Type 2 diabetes [...] as of this encounter (statuses as of 12/31/2021) Resolved Problems Problem Noted Date Resolved Date [...] Markers for Patients with Cardiovascular Disease Project #[id number] PI: Francoise Tomlin MD Please call [phone] with study related questions INTERFACED RESULT 11/17/2008 10/17/2011 GENOMICS CARDIO RESEARCH OTHER*[id number] 200806/25/2016 Overview: Renamed Per Clinical Trials Billing Project. Study Titile: Genomic Markers for Patients with Cardiovascular Disease Project #[id number] PI: Francoise Tomlin MD Please call [phone] with study related questions CLASS I-II ANGINA [...] as of this encounter (statuses as of 12/31/2021) Immunizations Name Administration Dates Next Due Pneumococcal [...] Comments:quit 30 yrs ago, wh ile in [address] for 4 years Alcohol Use Standard Drinks/Week [...] Notes * Telephone Encounter - Helena Rivera RPh - 12/31/2021 5:42 PM EDT Signed Prescriptions: Disp Refills metFORMIN HCl ER 500 MG Oral Tablet Extend*270 Ta*1 Sig: TAKE 3 TABLETS BY MOUTH EVERY DAY WITH FOODAuthorizing Provider: CAROLA ARRINGTON User: HELENA RIVERA documented in this encounter Plan of Treatment Upcoming Encounters Date Type Specialty Care Team Description 02/08/2022 Office Visit Family Medicine Carola Arrington MD [address] [facility] [place] [address] 03/06/2022 Office Visit Pharmacy [facility] [address] [place] [address] 05/22/2022 Office Visit Cardiology Azael Lozano MD [address] [facility] [place] [address] 08/08/2022 Office Visit Dermatology Lyssa Gar MD [address] [place] [address], [place] [address] Health Maintenance Due Date Last Done Comments DXA Scan 1935 COVID-19 Vaccine (#1) 1935 Zoster Vaccines (1 of 2) 1986 COLONOSCOPY-EVERY 5 YRS AGES 18-100 03/20/2021 03/20/2016, 04/30/2010, 02/05/2002 DIABETES-EYE EXAM 08/16/2021 08/16/2020, , 04/15/2012, Additional history exists CKD PHOS USE SMARTSET 15648 09/15/2021 04/3 , 04/18/2020, 04/27/2019, Additional history exists Depression Screening, Annual for Pts 12 and Over 10/26/2021 10/26/2020 Influenza Vaccine (FLU shot) (#1) 2022 02/21/2020, 03/02/2019, 03/01/2018, Additional history exists CKD HGB USE SMARTSET 09168 01/26/202201/26, 01/26/2021, 09/15/2020, Additional history exists Yearly [...] uncontrolled documented in this encounter Advance Directives Documents on File Type Date Recorded Patient Repeater Chief Expl anation Advanced Directive Advanced Directive Advanced [...] the patient have Health Care Power of Chemist Food? Yes, not currently available Full Code 09/15/2009 [...] Advance Directives occurred with: Patient Care Teams Windshield Repair Technician Relationship Specialty Start Date End Date Carola Arrington MD [address] [place] [address] [place] [address] PCP - General Internal Medicine 12/19/20 documented as of this encounter
--- OUTSIDE RECORDS SUMMARY | 2023-02-21 02:39 | External Medical Summary ---
Author Name Unknown Address Unknown Organization K0[facility] [place] [address] Laboratory Report Ordering Provider Test Date Status CASSIA MILTON 12/04/2021 11:51:43 Final Observation Date Value Abnormality Reference (Units ) Status BUN 12/04/2021 11:51:43 35 Above high normal 6-20 (mg/dL) Final Creatinine 12/04/2021 11:51:43 1.5 Above high normal 0.6-1.2 (mg/dL) Final Glomerular filtration rate/1.73 sq M.predicted [Volume Rate/Area] in Serum, Plasma or Blood by Creatinine-based formula (CKD-EPI) 12/04/2021 11:51:43 46 Below low normal >=60 (mL/min) Final Performing Location [facility] [place] [facility] [place] [address]
--- OUTSIDE RECORDS SUMMARY | 2023-02-21 02:39 | External Medical Summary | Summary of Care ---
Author Name Unknown Organization [place] [address] Care Team Providers Care Barber Name Role Phone Carola Arrington MD Primary Care Provider Reason for Visit * Reason Comments eRx-Medication Refill Encounter Details Date Type Department Care Team Description 04/13/2022 Refill Pharmacy, [facility] [address] [place] [address] Carola Arrington MD [address] [facility] [place] [address] DM type 2, goal A1C to be determined ([facility]); Type 2 diabetes mellitus with stage 3b chronic kidney disease, without long-term current use of insulin (HCC) Allergies No known active allergiesdocumented as of this encounter (statuses as of 04/16/2022) Medications Medication Sig Dispensed Refills Start Date End Date Status aspirin 81 MG chewable tablet Take 1 Tab by mouth daily. 34 Tab 11 8 Active nitroglycerin (NITROSTAT) 0.4 MG SUBLIndications: Chronic coronary artery disease DISSOLVE 1 TABLET UNDER THE TONGUE EVERY 5 MINUTES FOR CHEST PAIN. UP TO 3 DOSES IN 15 MINUTES. 25 Tab 1 9 Active Additional Information Patient not taking.Informant: Patient, Reported on 10/18/2021 BD Pen Needle Emperatriz U/F 32G X 4 MM (Insulin Pen Needle)Indicatio ns:Type 2 diabetes mellitus with stage 3b chronic kidney disease, without long-term current use of insulin (HCC),DM type 2, goal A1C to be determined ([facility]) Use with insulin pen once daily 100 [...] A DAY 180 Tablet 3 2 Active Isosorbide Mononitrate ER 120 MG Oral Tablet Extended Release 24 Hour TAKE 1 TABLET BY MOUTH EVERY MORNING 90 Tablet 1 2 Active metFORMIN HCl ER 500 MG Oral Tablet Extended Release 24 Hour (Glucophage XR)Indications:D M type 2, goal A1C to be determined ([facility]) TAKE 3 TABLETS BY MOUTH EVERY DAY [...] goal A1C to be determined ([facility]),Type 2 diabetes mellitus with stage 3b chronic kidney disease, without long-term current use of insulin ([facility]) INJECT 22 UNITS SUBCUTANEOUSLY (UNDER THE SKIN) IN THE MORNING OR DIRECTED 15 mL 3 2 Active Lantus SoloStar 100 UNIT/ML Subcutaneous Solution Pen-injector (Insulin Glargine)Indicat ions:DM type 2, goal A1C to be determined (HCC),Type 2 diabetes mellitus with stage 3b chronic kidney disease, without long-term current use of insulin (HCC) Inject under the skin 22 Units in the morning. Or as directed. 15 Each 3 2 04/16/20 22 Discontinued documented as of this encounter (statuses as of 04/16/2022) Active Problems Problem Noted Date Hx of melanoma of skin 07/19/2021 Overview: Location: L upper back Year: 2016 Depth: MIS Treatment: WLE (positive margins on initial excision, then re-excised again with wider margins) Staging: Stage 0 - [id number] - Melanoma in situ Type 2 diabetes [...] as of this encounter (statuses as of 04/16/2022) Resolved Problems Problem Noted Date Resolved Date [...] Aortic root 4.4 cm 4.29.2009 echo at [facility]. HTN, goal below 130/80 06/14/2009 2 Overview: Per HTN Taxonomy. Type 2 diabetes mellitus wit h hemoglobin A1c goal of less than 7.0% 03/02/2009 03/27/2011 Overview: Modified per Diabetes protocol #14. ICD-10 update of inactive term EXAMINATION OF PARTICIPANT IN CLINICAL TRIAL-gen omics 11/17/2008 09/01/2009 Overview: Renamed Per Clinical Trials Billing Project. Study Titile: Genomic Markers for Patients with Cardiovascular Disease Project #[id number] PI: Francoise Tomlin MD Please call [phone] with study related questions INTERFACED RESULT 11/17/2008 10/17/2011 GENOMICS CARDIO RESEARCH OTHER*[id number] 200806/25/2016 Overview: Renamed Per Clinical Trials Billing Project. Study Titile: Genomic Markers for Patients with Cardiovascular Disease Project #[id number] PI: Francoise Tomlin MD Please call [phone] with study related questions CLASS I-II ANGINA [...] as of this encounter (statuses as of 04/16/2022) Immunizations Name Administration Dates Next Due Pneumococcal [...] Comments:quit 30 yrs ago, wh ile in [facility] for 4 years Alcohol Use Standard Drinks/Week [...] Telephone Encounter - Nathan Cardenas DO - 04/16/2022 9:26 AM ESTSigned Prescriptions: Disp Refills Lantus SoloStar 100 UNIT/ML Subcutaneous S*15 mL 3 Sig: INJECT 22 UNITS SUBCUTANEOUSLY (UNDER THE SKIN) IN THE MORNING OR DIRECTED Authorizing Provider: NATHAN CARDENAS * Telephone Encounter - Chari Ge LPN - 04/15/2022 9:31 AM ESTPending Prescriptions: Disp Refills Lantus SoloStar 100 UNIT/ML Subcutaneous S*15 mL 3 Sig: INJECT 22 UNITS SUBCUTANEOUSLY (UNDER THE SKIN) IN THE MORNING OR DIRECTED * Telephone Encounter - Chari Ge LPN - 04/15/2022 9:30 AM EST Did you pend patient's preferred pharmacy and medication before forwarding?yes Pharmacy: [facility] [id number] [place] Pending Prescriptions: Disp Refills Lantus SoloStar 100 UNIT/ML Subcutaneous *15 mL 3 Sig: INJECT 22 UNITS SUBCUTANEOUSLY (UNDER THE SKIN) IN THE MORNING OR DIRECTED Last Visit: 03/06/2022 (in office), Visit date not found (telemedicine) Next Visit: 07/10/2022 If no future appointments scheduled, and last appointment is greater than a year ago, please schedule patient for a follow-up appointment Last date the medication was ordered: 07/16/2021 Is this request for a controlled substance?No [...] Cardiology Azael Lozano MD [address] [place] [address] 07/10/2022 Office Visit Pharmacy [facility] [address] [place] [address] 08/08/2022 Office Visit Dermatology Lyssa Gar MD [address] [place] [address] 08/09/2022 Office Visit Family Medicine Carola Arrington MD [address] [place] [address] Health Maintenance Due Date Last Done Comments DXA Scan 1935 Hepatitis B (1 of 3 - 3-dose series) 1935 COVID-19 Vaccine (#1) 1935 Zoster Vaccines (1 of 2) 1986 COLONOSCOPY-EVERY 5 YRS AGES 18-100 03/20/2021 03/20/2016, 04/30/2010, 02/05/2002 CKD PHOS USE SMARTSET 65122 09/15/2021 04/3 , 04/18/2020, 04/27/2019, Additional history exists Depression Screening, Annual for Pts 12 and Over 10/26/2021 10/26/2020 Influenza Vaccine (FLU shot) (#1) 2022 02/21/2020, 03/02/2019, 03/01/2018, Additional history exists CKD HGB USE SMARTSET 24365 01/26/202201/26, 01/26/2021, 09/15/2020, Additional history exists Yearly [...] the patient have Health Care Power of Family Independence Case Manager? Yes, not currently available Code Status History Code Status Date Activated Date Inactivated Comments Full Code 09/15/2009 2:06 PM 09/16/2009 8:49 PM This o rder reflects the patients wishes and were consensually agreed upon. Question Answer Comments Discussion of Advance Directives occurred with: Patient/Family Does the patient have a Living Will? No Does the patient have Health Care Power of Family Independence Case Manager? No Full Code 11/25/2008 1:50 PM 11/29/2008 9:11 PM This order reflects the patients wishes and were consensually agreed upon. Question Answer Comments Discussion of Advance Directives occurred with: Patient Care Teams Barber Relationship Specialty Start Date End Date Carola Arrington MD [address] [place] [address] PCP - General Internal Medicine 12/19/20 documented as of this encounter
--- OUTSIDE RECORDS SUMMARY | 2023-02-21 02:39 | External Medical Summary | Summary of Care ---
Author Name Unknown Organization [place] [address] Care Team Providers Care Box Brander Name Role Phone Carola Arrington MD Primary Care Provider Reason for Visit * Reason Comments Diabetes Follow-Up Encounter Details Date Type Department Care Team Description 12/04/2021 Office Visit Pharmacy, [facility] [address] [facility] [place] [address] [facility] [address] [place] [address] Type 2 diabetes mellitus with stage 3b chronic kidney disease, without long-term current use of insulin ([facility])* Allergies No known active allergiesdocumented as of this encounter (statuses as of 12/04/2021) Medications Medication Sig Dispensed Refills Start Date [...] Oral Tablet Extended Release 24 Hour (toPROL XL)Indications:Limousine Rental Clerk shanique coronary artery disease,Aortocorona ry bypass status,HTN, goal below 140/90 TAKE 2 TABLETS BY MOUTH EVERY DAY 180 Tablet 3 08/24/2021 Active Ranolazine ER 1000 MG Oral Tablet Extended Release 12 HourIndications:Trini st pain,Unstable angina (HCC) TAKE 1 TABLET TWICE A DAY 180 Tablet 3 08/30/2021 Active documented as of this encounter (statuses as of 12/04/2021) Active Problems Problem Noted Date Hx of melanoma of skin 07/19/2021 Overview: Location: L upper back Year: 2016 Depth: MIS Treatment: WLE (positive margins on initial excision, then re-excised again with wider margins) Staging: Stage 0 - [id number] - Melanoma in situ Type 2 diabetes [...] as of this encounter (statuses as of 12/04/2021) Resolved Problems Problem Noted Date Resolved Date [...] Aortic root 4.4 cm 4.29.2009 echo at [facility]. HTN, goal below 130/80 06/14/2009 2 Overview: Per HTN Taxonomy. Type 2 diabetes mellitus wit h hemoglobin A1c goal of less than 7.0% 03/02/2009 03/27/2011 Overview: Modified per Diabetes protocol #14. ICD-10 update of inactive term EXAMINATION OF PARTICIPANT IN CLINICAL TRIAL-gen omics 11/17/2008 09/01/2009 Overview: Renamed Per Clinical Trials Billing Project. Study Titile: Genomic Markers for Patients with Cardiovascular Disease Project #[id number] PI: Francoise Tomlin MD Please call [phone] with study related questions INTERFACED RESULT 11/17/2008 10/17/2011 GENOMICS CARDIO RESEARCH OTHER*[id number] 200806/25/2016 Overview: Renamed Per Clinical Trials Billing Project. Study Titile: Genomic Markers for Patients with Cardiovascular Disease Project #[id number] PI: Francoise Tomlin MD Please call [phone] with study related questions CLASS I-II ANGINA [...] as of this encounter (statuses as of 12/04/2021) Immunizations Name Administration Dates Next Due Pneumococcal [...] Comments:quit 30 yrs ago, wh ile in [email or web address] for 4 years Alcohol Use Standard Drinks/Week [...] encounter Progress Notes * Crystal Morgan, [facility] - 12/04/2021 11:16 AM EDT Medication Therapy [facility] - Diabetes Management Progress Note Dirk Garcia, identified by name and date of , is a 86 year old male being seen for diabetes management/education. Patient presents for return diabetic visit. DIABETES: Current diabetic medications: Diabetic Medications: Metformin ER 500 mg- 3 tablets daily Inc Lantus 22 units daily eGFR: 46mL/min 10/18/2021 Medication Injection Site: Abdomen Lifestyle: Diet: improved Glucose Review/SMBG: N/A patient does not test Hypoglycemia: Does your blood sugar go below 70 mg/dL? No Hyperglycemia symptoms present: none Recent Labs Units 08/08/21 1125 07/12/21 1044 04/27/21 1026 HEMOGLOBIN A1C - [facility] % 10.9* 11.5* 11.3* Recent Labs Units 10/18/21 0833 08/08/21 1125 07/12/21 1044 ESTIMATED GLOMERULAR FILTRATION RATE - [facility] mL/min 46* 48* 51* CREATININE - [facility] mg/dL 1.5* 1.4* 1.4* HYPERTENSION: Patient on ACEi/ARB: yes BP Readings from Last 3 Encounters: 10/18/21 158/86 08/08/21 128/66 02/15/21 150/78 Blood pressure at goal: Yes Blood Pressure Goal: <140/90 mmHg No results for input(s): MICROALBUMIN in the last 43691 hours. Recent Labs Units 10/18/21 0833 08/08/21 1125 07/12/21 1044 POTASSIUM - [facility] mmol/L 4.7 5.2* 5.2* HYPERLIPIDEMIA: Patient is taking moderate or high intensity statin: yes HEALTH MAINTENANCE REVIEW: Health Maintenance Due Topic Date Due DXA Scan Never done COVID-19 Vaccine (1) Never done Zoster Vaccines (1 of 2) Never done COLONOSCOPY-EVERY 5 YRS AGES 18-100 03/20/2021 DIABETES-EYE EXAM 08/16/2021 CKD PHOS USE SMARTSET 33083 09/15/2021 Depression Screening, Annual for Pts 12 and Over 10/26/2021 ASSESSMENT & PLAN: No diagnosis found. BG Readings Blood sugars not available. Patient does not test. Instructed patient to get A1C after lab and MTM will f/u with medication adjustments as necessary. Medications Reviewed current regimen, patient is adherent to regimen. Diet, Exercise, Lifestyle No significant lifestyle changes since last visit. Reports walking one mile daily Patient is agreeable to SMBG 0 time(s) daily. Patient aware to contact clinic if any hypoglycemia before next visit. MEDICATION CHANGES: no change Diabetic Medications: Metformin ER 500 mg- 3 tablets daily Lantus 22 units daily eGFR 48 mL/min 08/08/21 HEALTH MAINTENANCE INTERVENTIONS: Labs: Up to Date Immunizations: Up to Date Foot Exam: Up to Date Eye Exam: Complete with next PCP visit on [facility] Annual Wellness Visit: N/A FOLLOW UP: Return to clinic in 12 weeks 03/06/2022 Crystal Morgan RPh Clinical Pharmacist - Supervisor Maintenance And Custodians Medication Therapy Management [facility] 12/04/2021, 11:20 AM documented in this encounter Plan of Treatment Upcoming Encounters Date Type Specialty Care Team Description 12/04/2021 Pharmacy Pharmacy [facility] [address] [place] [address] 02/08/2022 Office Visit Family Medicine [facility] [place] [address] 03/06/2022 Office Visit [facility] [place] [address] 05/22/2022 Office Visit Cardiology Azael [facility]ozano [facility] [place] [address] 08/08/2022 Office Visit Dermatology Lyssa Gar MD [address] [place] [address], [place] [address] Health Maintenance Due Date Last Done Comments DXA Scan 1935 COVID-19 Vaccine (#1) 1935 Zoster Vaccines (1 of 2) 1986 COLONOSCOPY-EVERY 5 YRS AGES 18-100 03/20/2021 03/20/2016, 04/30/2010, 02/05/2002 DIABETES-EYE EXAM 08/16/2021 08/16/2020, , 04/15/2012, Additional history exists CKD PHOS USE SMARTSET 60393 09/15/2021 04/3 , 04/18/2020, 04/27/2019, Additional history exists Depression Screening, Annual for Pts 12 and Over 10/26/2021 10/26/2020 Influenza Vaccine (FLU shot) (#1) 2022 02/21/2020, 03/02/2019, 03/01/2018, Additional history exists CKD HGB USE SMARTSET 69556 01/26/202201/26, 01/26/2021, 09/15/2020, Additional history exists DIABETES-HGBA1C EVERY 6 MONTHS 02/08/2022 08/08/2021, 07/12/2021, 04/27/2021, Additional history exists Yearly B-12 04/27/2022 04/27/2021, 05/2019, 04/27/2019, Additional history exists DTaP,Tdap,and Td [...] Documents on File Type Date Recorded Patient Sales Ambassador Expl anation Advanced Directive Advanced Directive Advanced [...] the patient have Health Care Power of Office Manager Executive Assistant? Yes, not currently available Full Code 09/15/2009 [...] Advance Directives occurred with: Patient Care Teams Box Brander Relationship Specialty Start Date End Date Carola Arrington MD [address] [facility] [place] [address] PCP - General Internal Medicine 12/19/20 documented as of this encounter
--- OUTSIDE RECORDS SUMMARY | 2023-02-21 02:39 | External Medical Summary | Summary of Care ---
Author Name Unknown Organization [place] [address] Care Team Providers Care Rag Cutting Machine Operator Name Role Phone Carola Arrington MD Primary Care Provider Reason for Visit * Reason Comments Outpatient Testing Encounter Details Date Type Department Care Team Description 12/04/2021 Laboratory Laboratory, [facility] [address] [facility] [place] [address] [facility] [address] [facility] [address] Type 2 diabetes mellitus with stage [...] Oral Tablet Extended Release 24 Hour (toPROL XL)Indications:Glove Cleaner shanique coronary artery disease,Aortocorona ry bypass status,HTN, [...] with wider margins) Staging: Stage 0 - [id number] - Melanoma in situ Type 2 diabetes [...] Markers for Patients with Cardiovascular Disease Project #[id number] PI: Francoise Tomlin MD Please call [phone] with study related questions INTERFACED RESULT 11/17/2008 10/17/2011 GENOMICS CARDIO RESEARCH OTHER*[id number] 200806/25/2016 Overview: Renamed Per Clinical Trials Billing Project. Study Titile: Genomic Markers for Patients with Cardiovascular Disease Project #[id number] PI: Francoise Tomlin MD Please call [phone] with study related questions CLASS I-II ANGINA [...] Comments:quit 30 yrs ago, wh ile in [place] for 4 years Alcohol Use Standard Drinks/Week [...] Type Specialty Care Team Description 12/04/2021 Pharmacy [facility] [address] [place] [address] 02/08/2022 Office Visit Family Medicine Carola Arrington MD [address] [facility] [place] [address] 03/06/2022 Office Visit Pharmacy [facility] [address] [place] [address] 05/22/2022 Office Visit Cardiology Azael Lozano MD [address] [place] [address] 08/08/2022 Office Visit Dermatology Lyssa Gar MD [address] [place] [address] Pending Results Name Type Priority Associated Diagnoses Date /Time BASIC METABOLIC PANEL Lab Routine Type 2 diabetes mellitus with stage 3b chronic kidney disease, without long-term current use of insulin ([facility]) 12/04/2021 11:51 AM EDT HEMOGLOBIN A1C Lab Routine Type 2 diabetes mellitus with stage 3b chronic kidney disease, without long-term current use of insulin (HCC) 12/04/2021 11:51 AM EDT Health Maintenance Due Date Last Done Comments DXA Scan 1935 COVID-19 Vaccine (#1) 1935 Zoster Vaccines (1 of 2) 1986 COLONOSCOPY-EVERY 5 YRS AGES 18-100 03/20/2021 03/20/2016, 04/30/2010, 02/05/2002 DIABETES-EYE EXAM 08/16/2021 08/16/2020, , 04/15/2012, Additional history exists CKD PHOS USE SMARTSET 44225 09/15/2021 04/3 , 04/18/2020, 04/27/2019, Additional history exists Depression Screening, Annual for Pts 12 and Over 10/26/2021 10/26/2020 Influenza Vaccine (FLU shot) (#1) 2022 02/21/2020, 03/02/2019, 03/01/2018, Additional history exists CKD HGB USE SMARTSET 17751 01/26/202201/26, 01/26/2021, 09/15/2020, Additional history exists DIABETES-HGBA1C [...] Documents on File Type Date Recorded Patient Reversing Mill Roller Expl anation Advanced Directive Advanced Directive Advanced [...] the patient have Health Care Power of Lockstitch Waistline Joiner? Yes, not currently available Full Code 09/15/2009 [...] Advance Directives occurred with: Patient Care Teams Rag Cutting Machine Operator Relationship Specialty Start Date End Date Carola Arrington MD [address] [place] [address] PCP - General Internal Medicine 12/19/20 documented as of this encounter
--- OUTSIDE RECORDS SUMMARY | 2023-02-21 02:40 | External Medical Summary ---
Author Name Unknown Address Unknown Organization K01:LABORATORY [facility] [place] - [address] [place] [address] Laboratory Report Ordering Provider Test Date Status CASSIA MILTON 08/08/2021 11:25:38 Final Observation Date Value Abnormality Reference (Units ) Status HbA1C 08/08/2021 11:25:38 10.9 Above high normal 4. 0-5.6 (%) Final Performing Location LAB[facility] [place] - [address] [place] [address]
--- OUTSIDE RECORDS SUMMARY | 2023-02-21 02:40 | External Medical Summary | Summary of Care ---
Author Name Unknown Organization [place] [address] Care Team Providers Care Apple Solutions Consultant Name Role Phone Gerry Arrington MD Primary Care Provider Reason for Visit * Reason Comments eRx-Medication Refill Encounter Details Date Type Department Care Team Description 08/06/2021 Refill Family Practice [facility] [address] [place] [address] Gerry Arrington MD 132 [facility] [place] [address] Aortocoronary bypass status; Acute coronary syndrome (HCC); Chronic coronary artery disease; Enlarged aorta (HCC) Allergies No known active allergiesdocumented as of this encounter (statuses as of 08/07/2021) Medications Medication Sig Dispensed Refills Start Date [...] 70,Dyslipidemia, goal LDL below 160,Mixed dyslipidemia Take 1 Tab by mouth daily. 90 Tab 4 05/30/2020 Active Ranolazine ER 1000 MG Oral Tablet Extended Release 12 HourIndications:Ch est pain,Unstable angina (HCC) TAKE 1 TABLET TWICE A DAY 180 Tab 3 09/04/2020 Active Metoprolol Succinate ER 25 MG Oral Tablet Extended Release 24 Hour (toPROL XL)Indications:Chr onic coronary artery disease,Aortocoron jovanna bypass status,HTN, goal below 140/90 TAKE 2 TABLETS BY MOUTH EVERY DAY 180 Tab 3 09/04/2020 Active amLODIPine Besylate 5 MG Oral Tablet [...] SoloStar 100 UNIT/ML Subcutaneous Solution Pen-injector (Insulin Glargine)Indicatio ns:DM type 2, goal A1C to be [...] EVERY DAY 100 Tablet 1 08/07/2021 Active Clopidogrel Bisulfate 75 MG Oral Tablet (pLAVix)Indication s:Aortocoronary bypass status,Acute coronary syndrome (HCC),Chronic coronary artery disease,Enlarged aorta (HCC) TAKE 1 TABLET BY MOUTH EVERY DAY 100 Tab 1 02/14/2021 2 Discontinued documented as of this encounter (statuses as of 08/07/2021) Active Problems Problem Noted Date Hx of melanoma of skin 07/19/2021 Overview: Location: L upper back Year: 2016 Depth: MIS Treatment: WLE (positive margins on initial excision, then re-excised again with wider margins) Staging: Stage 0 - [id number] - Melanoma in situ Type 2 diabetes [...] as of this encounter (statuses as of 08/07/2021) Resolved Problems Problem Noted Date Resolved Date [...] Markers for Patients with Cardiovascular Disease Project #[id number] PI: Francoise Tomlin MD Please call [phone] with study related questions INTERFACED RESULT 11/17/2008 10/17/2011 GENOMICS CARDIO RESEARCH OTHER*[id number] 200806/25/2016 Overview: Renamed Per Clinical Trials Billing Project. Study Titile: Genomic Markers for Patients with Cardiovascular Disease Project #[id number] PI: Francoise Tomlin MD Please call [phone] with study related questions CLASS I-II ANGINA [...] as of this encounter (statuses as of 08/07/2021) Immunizations Name Administration Dates Next Due Pneumococcal [...] Comments:quit 30 yrs ago, wh ile in [place] for 4 years Alcohol Use Standard Drinks/Week [...] Notes * Telephone Encounter - Ta Buchanan [facility] - 08/07/2021 7:05 AM EDT Signed Prescriptions: Disp Refills Clopidogrel Bisulfate 75 MG Oral Tablet (p*100 Ta*1 Sig: TAKE 1 TABLET BY MOUTH EVERY DAYAuthorizing Provider: GERRY ARRINGTON User: TA BUCHANAN- documented in this encounter Plan of Treatment Upcoming Encounters Date Type Specialty Care Team Description 08/08/2021 Office Visit Family Medicine Gerry Arrington MD [address] [place] [address] 10/09/2021 Office Visit Pharmacy [facility] [address] [facility] [place] [address] 10/18/2021 Office Visit Cardiology Azael Lozano MD [address] [facility] [place] [address] 08/08/2022 Office Visit Dermatology Lyssa Gar MD [address] [place] [address], [place] [address] Health Maintenance Due Date Last Done Comments COVID-19 Vaccine (1) 1940 Dexa Scan 1986 Zoster Vaccines (1 of 2) 1985 DIABETES-URINE ALBUMIN/CREATININE EVERY 12 MONTHS 10/24/2017 10/24/2016, 02/20/2015, 07/13/2013, Additional history exists Influenza Vaccine (FLU shot) (#1) 2021 02/21/2020, 03/02/2019, 03/01/2018, Additional history exists COLONOSCOPY-EVERY 5 YRS AGES 18-100 03/20/2021 03/20/2016, 04/30/2010, 02/05/2002 DIABETES-FOOT EXAM 04/27/2021 04/27/2020, 1 06/28/2018, 03/20/2018, Additional history exists DIABETES-EYE EXAM 08/16/2021 08/16/2020, , 04/15/2012, Additional history exists CKD PHOS USE SMARTSET 96089 09/15/2021 04/3 , 04/18/2020, 04/27/2019, Additional history exists Depression Screening, Annual for Pts 12 and Over 10/26/2021 10/26/2020 CKD GFR USE SMARTSET 38470 01/09/202207/12, 02/07/2021, 01/26/2021, Additional history exists DIABETES-HGBA1C EVERY 6 MONTHS 01/09/2022 07/12/2021, 04/27/2021, 12/15/2020, Additional history exists CKD HGB USE SMARTSET 47560 01/26/202201/26, 01/26/2021, 09/15/2020, Additional history exists Yearly B-12 04/27/2022 04/27/2021, 12/05/2019, 04/27/2019, Additional history exists DTaP,Tdap,and Td Vaccines (2 - Td or Tdap) 07/10/2022 07/10/2012 BASIC METABOLIC PANEL (BMP) FOR HTN YEARLY 07/12/2022 07/12/2021, 02/07/2021, 01/26/2021, Additional history exists Pneumococcal Vaccine: 65+ [...] atherosclerosis of unspecified type of vessel, little river or graft Enlarged aorta (HCC) Other specified disorders of arteries and arterioles documented in this encounter Advance Directives Documents on File Type Date Recorded Patient Employment Programs Analyst Expl anation Advanced Directive Advanced Directive Advanced [...] the patient have Health Care Power of Film Flat Inspector? Yes, not currently available Full Code 09/15/2009 [...] Advance Directives occurred with: Patient Care Teams Apple Solutions Consultant Relationship Specialty Start Date End Date Gerry Arrington MD [address] [facility] [place] [address] PCP - General Internal Medicine 12/19/20 documented as of this encounter
--- OUTSIDE RECORDS SUMMARY | 2023-02-21 02:40 | External Medical Summary | Summary of Care ---
Author Name Unknown Organization [place] [address] Care Team Providers Care Berry Grower Name Role Phone Carola Arrington MD Primary Care Provider Reason for Visit * Reason Comments eRx-Medication Refill Encounter Details Date Type Department Care Team Description 08/30/2021 Refill Cardiology, [facility] [address] [facility] [place] [address] Sushila Lozano MD 132 [facility] [place] [address] Chest pain; Unstable angina (HCC) Allergies No known active allergiesdocumented as of this encounter (statuses as of 08/30/2021) Medications Medication Sig Dispensed Refills Start Date End Date Status aspirin 81 MG chewable tablet Take 1 Tab by mouth daily. 34 Tab 11 10/28/2017 Active nitroglycerin (NITROSTAT) 0.4 MG SUBLIndications:Ch ronic coronary artery disease DISSOLVE 1 TABLET UNDER THE TONGUE EVERY 5 MINUTES FOR CHEST PAIN. UP TO 3 DOSES IN 15 MINUTES. 25 Tab 1 11/17/2018 Active amLODIPine Besylate 5 MG Oral Tablet [...] A DAY 180 Tablet 3 08/30/2021 Active Ranolazine ER 1000 MG Oral Tablet Extended Release 12 HourIndications:Ch est pain,Unstable angina (HCC) TAKE 1 TABLET TWICE A DAY 180 Tab 3 09/04/2020 2 Discontinued documented as of this encounter (statuses as of 08/30/2021) Active Problems Problem Noted Date Hx of melanoma of skin 07/19/2021 Overview: Location: L upper back Year: 2016 Depth: MIS Treatment: WLE (positive margins on initial excision, then re-excised again with wider margins) Staging: Stage 0 - [id number] - Melanoma in situ Type 2 diabetes [...] as of this encounter (statuses as of 08/30/2021) Resolved Problems Problem Noted Date Resolved Date [...] Aortic root 4.4 cm 4.29.2009 echo at [facility]. HTN, goal below 130/80 06/14/2009 2 Overview: Per HTN Taxonomy. Type 2 diabetes mellitus wit h hemoglobin A1c goal of less than 7.0% 03/02/2009 03/27/2011 Overview: Modified per Diabetes protocol #14. ICD-10 update of inactive term EXAMINATION OF PARTICIPANT IN CLINICAL TRIAL-gen omics 11/17/2008 09/01/2009 Overview: Renamed Per Clinical Trials Billing Project. Study Titile: Genomic Markers for Patients with Cardiovascular Disease Project #[id number] PI: Francoise Tomlin MD Please call [phone] with study related questions INTERFACED RESULT 11/17/2008 10/17/2011 GENOMICS CARDIO RESEARCH OTHER*[id number] 200806/25/2016 Overview: Renamed Per Clinical Trials Billing Project. Study Titile: Genomic Markers for Patients with Cardiovascular Disease Project #[id number] PI: Francoise Tomlin MD Please call [phone] with study related questions CLASS I-II ANGINA [...] as of this encounter (statuses as of 08/30/2021) Immunizations Name Administration Dates Next Due Pneumococcal [...] Comments:quit 30 yrs ago, wh ile in [place] for 4 years Alcohol Use Standard Drinks/Week [...] Telephone Encounter - Sushila Lozano MD - 08/30/2021 10:59 AM EDT Signed Prescriptions: Disp Refills Ranolazine ER 1000 MG Oral Tablet Extended*180 Ta*3 Sig: TAKE 1 TABLET TWICE A DAY Authorizing Provider: SUSHILA LOZANO * Telephone Encounter - Aguilar Hanson RN - 08/30/2021 10:23 AM EDT Pending Prescriptions: Disp Refills Ranolazine ER 1000 MG Oral Tablet Extende*180 Ta*3 Sig: TAKE 1 TABLET TWICE A DAY * Telephone Encounter - Aguilar Hanson RN - 08/30/2021 10:22 AM EDT Pending Prescriptions: Disp Refills Ranolazine ER 1000 MG Oral Tablet Extende*180 Ta*3 Sig: TAKE 1 TABLET TWICE A DAY Last Visit: 02/15/2021 (in office), 09/17/2019 (telemedicine) Next Visit: 10/18/2021 Last medication order date: 09/04/2020 Have you choosen a preferred pharm?? 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) E11.22, N18.32 Chronic kidney disease, stage 3b (HCC) N18.32 Hx of melanoma of skin Z85.820 Labs: Lab Results Component Value Date/Time CREATININE - [facility] 1.4 (H) 08/08/2021 11:25 AM CREATININE - [facility] 1.9 (H) 04/18/2020 08:29 AM CREATININE, RANDOM URINE - [facility] 26 08/08/2021 11:25 AM CREATININE, RANDOM URINE - [facility] 185 10/24/2016 11:53 AM Lab Results Component Value Date/Time POTASSIUM - [facility] 5.2 (H) 08/08/2021 11:25 AM POTASSIUM - [facility] 5.0 04/18/2020 08:29 [...] Component Value Date/Time HEMOGLOBIN A1C - [facility] 10.9 (H) 08/08/2021 11:25 AM HEMOGLOBIN A1C - [facility] 11.5 (H) 07/12/2021 10:44 AM HEMOGLOBIN A1C - [facility] 11.3 (H) 04/27/2021 10:26 AM HEMOGLOBIN A1C - [facility] 9.7 (H) 04/18/2020 08:29 AM HEMOGLOBIN A1C - [facility] 6.4 (H) 10/27/2019 09:03 AM HEMOGLOBIN A1C - [facility] 6.5 (H) 01/12/2019 02:01 PM documented in this encounter Plan of Treatment Upcoming Encounters Date Type Specialty Care Team Description 10/09/2021 Office Visit Pharmacy [place] [address] [place] [address] 10/18/2021 Office Visit Cardiology Sushila Lozano MD [address] [place] [address] 02/08/2022 Office Visit Family Medicine Carola Arrington MD [address] [place] [address] 08/08/2022 Office Visit Dermatology Lyssa Gar MD [address] [place] [address] Health Maintenance Due Date Last Done Comments COVID-19 Vaccine (1) 1940 Dexa Scan 1986 Zoster Vaccines (1 of 2) 1986 COLONOSCOPY-EVERY 5 YRS AGES 18-100 03/20/2021 03/20/2016, 04/30/2010, 02/05/2002 DIABETES-EYE EXAM 08/16/2021 08/16/2020, , 04/15/2012, Additional history exists CKD PHOS USE SMARTSET 42828 09/15/2021 04/3 , 04/18/2020, 04/27/2019, Additional history exists Depression Screening, Annual for Pts 12 and Over 10/26/2021 10/26/2020 Influenza Vaccine (FLU shot) (Season Ended) 2022 02/21/2020, 03/02/2019, 03/01/2018, Additional history exists CKD HGB USE SMARTSET 61438 01/26/202201/26, 01/26/2021, 09/15/2020, Additional history exists CKD GFR USE SMARTSET 17640 02/08/202208/08, 07/12/2021, 02/07/2021, Additional history exists DIABETES-HGBA1C [...] syndrome documented in this encounter Advance Directives Documents on File Type Date Recorded Patient Addresser Expl anation Advanced Directive Advanced Directive Advanced [...] the patient have Health Care Power of Optometrist Owner? Yes, not currently available Full Code 09/15/2009 [...] Advance Directives occurred with: Patient Care Teams Berry Grower Relationship Specialty Start Date End Date Carola Arrington MD [address] [place] [address] PCP - General Internal Medicine 12/19/20 documented as of this encounter
--- OUTSIDE RECORDS SUMMARY | 2023-02-21 02:40 | External Medical Summary | Summary of Care ---
Author Name Unknown Organization [place] [address] Care Team Providers Care Construction Economist Name Role Phone Gerry Arrington MD Primary Care Provider Reason for Visit * Reason Comments Skin Check Skin check - Hx MM n o current concerns * Evaluate & Treat - Unlimited Visits (Within 30 days (routine)) - Pending Review Specialty Diagnoses / Procedures Referred By Silas alonzo Referred To Contact Dermatology Diagnoses History of melanoma in situ Gerry Arrington MD [address] [place] [address] Referral ID Status Reason Start Date Expiration Date Visits Requested Visits Authorized [id number] Pending Review Specialty Services Required 01/26/2021 1 1 Encounter Details Date Type Department Care Team Description 07/19/2021 Office Visit Dermatology [facility] [address] [facility] [place] [address] Lyssa Gar MD [address] [place] [place] [address] Skin neoplasm*; Scar conditions and fibrosis of skin; History of malignant melanoma of skin; Seborrheic keratosis; Photoaged skin; Multiple nevi Allergies No known active allergiesdocumented as of this encounter (statuses as of 07/19/2021) Medications Medication Sig Dispensed Refills Start Date End Date Status aspirin 81 MG chewable tablet Take 1 Tab by mouth daily. 34 Tab 11 10/28/2017 Active nitroglycerin (NITROSTAT) 0.4 MG SUBLIndications:Chron ic coronary artery disease DISSOLVE 1 TABLET UNDER THE TONGUE EVERY 5 MINUTES FOR CHEST PAIN. UP TO 3 DOSES IN 15 MINUTES. 25 Tab 1 11/17/2018 Active Rosuvastatin Calcium 20 MG Oral Tablet (Crestor)Indications: Dyslipidemia, goal LDL below 70,Dyslipidemia, goal LDL below 160,Mixed dyslipidemia Take 1 Tab by mouth daily. 90 Tab 4 05/30/2020 Active Ranolazine ER 1000 MG Oral Tablet Extended Release 12 HourIndications:Chest pain,Unstable angina (HCC) TAKE 1 TABLET TWICE A DAY 180 Tab 3 09/04/2020 Active Metoprolol Succinate ER 25 MG Oral Tablet Extended Release 24 Hour (toPROL XL)Indications:Chroni c coronary artery disease,Aortocoronary bypass status,HTN, goal below 140/90 TAKE 2 TABLETS BY MOUTH EVERY DAY 180 Tab 3 09/04/2020 Active Clopidogrel Bisulfate 75 MG Oral Tablet (pLAVix)Indications:A ortocoronary bypass status,Acute coronary syndrome (HCC),Chronic coronary artery disease,Enlarged aorta (HCC) TAKE 1 TABLET BY MOUTH EVERY DAY 100 Tab 1 02/14/2021 Active amLODIPine Besylate 5 MG Oral Tablet (Norvasc)Indications: HTN, goal below 130/80 TAKE 1 TABLET BY MOUTH EVERY DAY 90 Tablet 3 03/26/2021 Active BD Pen Needle Emperatriz U/F 32G X 4 MM (Insulin Pen Needle)Indications:Ty pe 2 diabetes mellitus with stage 3b chronic [...] be determined ([facility]) Take 3 tablets daily. Take with food. 270 Tablet 1 07/16/2021 Active Lantus SoloStar 100 UNIT/ML Subcutaneous Solution Pen-injector (Insulin Glargine)Indications: DM type 2, goal A1C to be determined ([facility]),Type 2 diabetes mellitus with stage 3b chronic kidney disease, without long-term current use of insulin (HCC) Inject under the skin 22 Units in the morning. Or as directed. 15 Each 3 07/16/2021 Active documented as of this encounter (statuses as of 07/19/2021) Active Problems Problem Noted Date Hx of melanoma of skin 07/19/2021 Overview: Location: L upper back Year: 2016 Depth: MIS Treatment: WLE (positive margins on initial excision, then re-excised again with wider margins) Staging: Stage 0 - [id number] - Melanoma in situ Type 2 diabetes [...] as of this encounter (statuses as of 07/19/2021) Resolved Problems Problem Noted Date Resolved Date [...] Markers for Patients with Cardiovascular Disease Project #[id number] PI: Ricardo Yang MD Please call [phone] with study related questions INTERFACED RESULT 11/17/2008 10/17/2011 GENOMICS CARDIO RESEARCH OTHER*[id number] 200806/25/2016 Overview: Renamed Per Clinical Trials Billing Project. Study Titile: Genomic Markers for Patients with Cardiovascular Disease Project #[id number] PI: Ricardo Yang MD Please call [phone] with study related questions CLASS I-II ANGINA [...] as of this encounter (statuses as of 07/19/2021) Immunizations Name Administration Dates Next Due Pneumococcal [...] Comments:quit 30 yrs ago, wh ile in [employer] for 4 years Alcohol Use Standard Drinks/Week [...] this encounter Patient Instructions * Patient Instructions* Vivienne Garcia MD - 07/19/2021 10:53 AM EST SUNSCREEN USE AND SUN PROTECTION: 1. The [...] not hesitate in calling our office at [phone] to have it evaluated. documented in this encounter Progress Notes * Lyssa Gar MD - 07/19/2021 12:47 PM EST I have discussed the patient's management with the medical trainee and agree with the note. Please refer to the documented findings and plan of care. This patient's visit today consisted of an evaluation and procedure. I was present and confirmed the findings of the history and exam, and was present for the fofana and critical portions of the procedure. Many SKs, nevi, lentigines, biopsied outlier pink lesion on back as below. Lyssa Gar MD 07/19/2021 12:49 PM * Vivienne Garcia MD - 07/19/2021 10:53 AM EST Dirk Garcia [id number] Chief Complaint: Chief Complaint Patient presents with Skin Check Skin check - Hx MM no current concerns Dirk Garcia is a 86 year old male with history of malignant melanoma, seen today to be monitored for recurrence at previously treated sites and to be evaluated for the development of new lesions. Melanoma History: Location: L upper back Year: 2016 Depth: MIS Treatment: WLE (positive margins on initial excision, then re-excised again with wider margins) Staging: Stage 0 - [id number] - Melanoma in situ New, changing, or symptomatic moles since last visit: no Review of Systems: Complete review of systems [...] coronary artery disease 11/17/2008 Coronary atherosclerosis of [place] coronary artery DM type 2, goal A1c below 7 DM type 2, goal A1C to be determined (HCC) Dyslipidemia, goal LDL below 160 Dyslipidemia, goal LDL below 70 05/01/2009 Per Lipid Taxonomy. Enlarged aorta (HCC) 09/15/2009 Aortic root 4.4 cm 4..2009 echo at [facility]. HTN, goal below 130/80 06/14/2009 Per HTN Taxonomy. HTN, goal below 140/90 S/P angioplasty with stent drug eluting 09/15/09 Plavix x 12m Current Outpatient Medications Medication Sig Dispense Refill aspirin 81 MG chewable tablet Take 1 Tab by mouth daily. 34 Tab 11 nitroglycerin (NITROSTAT) 0.4 MG SUBL DISSOLVE 1 TABLET UNDER THE TONGUE EVERY 5 MINUTES FOR CHEST PAIN. UP TO 3 DOSES IN 15 MINUTES. 25 Tab 1 Rosuvastatin Calcium 20 MG Oral Tablet (Crestor) Take 1 Tab by mouth daily. 90 Tab 4 Ranolazine ER 1000 MG Oral Tablet Extended Release 12 Hour TAKE 1 TABLET TWICE A DAY 180 Tab 3 Metoprolol Succinate ER 25 MG Oral Tablet Extended Release 24 Hour (toPROL XL) TAKE 2 TABLETS BY MOUTH EVERY DAY 180 Tab 3 Clopidogrel Bisulfate 75 MG Oral Tablet (pLAVix) TAKE 1 TABLET BY MOUTH EVERY DAY 100 Tab 1 amLODIPine Besylate 5 MG Oral Tablet [...] morning. Or as directed. 15 Each 3 No current facility-administered medications for this visit. Past Surgical History: Procedure Laterality Date CABG, ARTERIAL, SINGLE 11/25/08 CORONARY ARTERY BYPASS GRAFT USING ARTERY 1 GRAFT performed by MAXIMILIANO CASILLAS at [facility] CABG, ARTERY-VEIN, TWO 11/25/08 CORONARY ARTERY BYPASS GRAFT ARTERIAL AND VENOUS 2 GRAFTS performed by MAXIMILIANO CASILLAS at [facility] CATHETERIZE LEFT HEART THRU SKIN Cardiac Catheterization, Left Heart CATHETERIZE LEFT HEART THRU SKIN 11/17/08 LEFT HEART CATH, PERCUTANEOUS performed by DRAKE MALONE at [facility] CATHETERIZE LEFT HEART THRU SKIN 09/15/09 LEFT HEART CATH, PERCUTANEOUS performed by RICARDO YANG at [facility] COLONOSCOPY, W/BIOPSY jan 2002 adenomatous and hyperplastic polyps, next in jan 2005 CORONARY ANGIOGRAPHY W/LEFT HEART CATH 11/25/2011 CORONARY ANGIOGRAPHY W/LEFT HEART CATH performed by Jermaine Leary DO at [facility] DESTRUCTION PREMALIGNANT LESION 1ST about 2001 facial lesion. ENDO,VIDEO ASSIST HARVEST WALE 11/25/08 ENDOSCOPY VIDEO ASSISTED HARVEST VEIN performed by MAXIMILIANO CASILLAS at [facility] REMOVAL OF APPENDIX age 21 Family History Problem Relation Age of Onset Stroke Mother age 45, Heart Disorder Father old age, age 83 Neurological Disorder Father Alzheimer Social History Tobacco Use Smoking status: Former Smoker Packs/day: 0.50 Years: 5.00 Pack years: 2.50 Types: Cigarettes Quit date: 05/19/1984 Years since quittin.1 Smokeless tobacco: Never Used Tobacco comment: quit 30 yrs ago, while in [employer] for 4 years Vaping Use Vaping Use: [...] Nodes: Lymph nodes in head, neck, supraclavicular, axillary areas show no lymphadenopathy. Skin: Exam of the scalp, face, conjunctivae, oral mucosa, neck, chest, back, abdomen, buttocks, andall four extremities is performed. All areas are normal except for the following findings. -There is a well-healed primary site without clinical evidence of local, satellite, or in-transit recurrence. -central upper back with pink 1cm slightly scaly plaque; shave and curette; ddx irritated SK vs SCCIS -Trunk and extremities with multiple scattered sharp/brown hyperkeratotic stuck-on appearing waxy papules ASSESSMENT and PLAN: 1. History of Melanoma. - History was obtained [...] appear or current lesions change. Additional Problems: 2. Scar. Well healed. No evidence of recurrence. 3. Skin neoplasm - central upper back - ddx irritated SK vs SCCIS -Tangential biopsy of the lesion noted above to establish and confirm diagnosis. The procedure, risks, benefits, alternatives and expected outcomes were discussed with the patient and consent was obtained for procedure and photos. Time out called. Patient identified, procedure verified, sites identified and verified. Patient and staff present in agreement. Area prepped with alcohol and anesthetized using 0.5% lidocaine with epinephrine at 1:200,000 concentration. Biopsy of lesion performed via horizontal technique. Hemostasis was obtained with aluminum chloride. Bandage was applied. Specimen sent to pathology. Patient instructed in routine post-op care. Lesion curetted for cure. Hold for [facility]. Size of lesion: 1cm Size of wound after curettage: 1.8cm 4. Seborrheic keratoses -Patient educated on the benign nature of these lesions. No intervention indicated at this time. Follow up [facility] melanoma clinic 12 months. However, the patient should seek an early evaluation by a medical provider if any suspicious lesions develop. There were no barriers to learning and no other pain was related to today's visit. The patient demonstrates understanding of the visit and treatment. OK to leave message on answering machine with results of biopsy/labs: Yes Vivienne Garcia MD 07/19/2021 10:53 AM CC: Ref: GERRY ARRINGTON[[id number]] [address] [place] [address] (office) [phone] (fax) documented in this encounter Nursing Notes * Kristin Byrd LPN - 07/19/2021 10:45 AM EST Chief Complaint Patient presents with Skin Check Skin check - Hx MM no current concerns documented in this encounter Plan of Treatment Upcoming Encounters Date Type Specialty Care Team Description 08/08/2021 Office Visit Family Medicine Gerry Arrington MD [address] [place] [address] 10/09/2021 Office Visit Pharmacy [facility] [place] [address] [place] [address] 10/18/2021 Office Visit Cardiology Azael Lozano MD [address] [place] [address] 08/08/2022 Office Visit Dermatology Lyssa Gar MD [address] [place] [phone] Scheduled Orders Name Type Priority Associated Diagnoses Orde r Schedule SURGICAL PATHOLOGY Pathology Routine Skin neoplasm Ordered: 07/19/2021 Health Maintenance Due Date Last Done Comments [...] Additional history exists CKD PHOS USE SMARTSET 71360 09/15/2021 04/3 , 04/18/2020, 04/27/2019, Additional history exists Depression Screening, Annual for Pts 12 and Over 10/26/2021 10/26/2020 CKD GFR USE SMARTSET 45166 01/09/202207/12, 02/07/2021, 01/26/2021, Additional history exists DIABETES-HGBA1C EVERY 6 MONTHS 01/09/2022 07/12/2021, 04/27/2021, 12/15/2020, Additional history exists CKD HGB USE SMARTSET 34237 01/26/202201/26, 01/26/2021, 09/15/2020, Additional history exists Yearly [...] Personal history of malignant melanoma of skin Seborrheic keratosis Other seborrheic keratosis Photoaged skin Other dermatitis due to solar radiation Multiple nevi Benign neoplasm of skin, site unspecified documented in this encounter Advance Directives Documents on File Type Date Recorded Patient Electronics Maintenance Technician Expl anation Advanced Directive Advanced Directive Advanced [...] the patient have Health Care Power of Theology Professor? Yes, not currently available Full Code 09/15/2009 [...] Directives occurred with: Patient Care Teams Construction Economist Relationship Specialty Start Date End Date Gerry Arrington MD [address] [place] [address] PCP - General Internal Medicine 12/19/20 documented as of this encounter
--- OUTSIDE RECORDS SUMMARY | 2023-02-21 02:40 | External Medical Summary | Summary of Care ---
Author Name Unknown Organization [place] [address] Care Team Providers Care Load Mixer Name Role Phone Carola Arrington MD Primary Care Provider Reason for Visit * Reason Comments Outpatient Testing Encounter Details Date Type Department Care Team Description 08/08/2021 Laboratory Laboratory, [facility] [address] [place] [address] [facility] [address] [place] [address] Type 2 diabetes mellitus with stage 3b chronic kidney disease, without long-term current use of insulin (HCC); Type 2 diabetes mellitus with stage 3b chronic kidney disease, with long-term current use of insulin (HCC) Allergies No known active allergiesdocumented as of this encounter (statuses as of 08/08/2021) Medications Medication Sig Dispensed Refills Start Date [...] EVERY DAY 100 Tablet 1 08/07/2021 Active documented as of this encounter (statuses as of 08/08/2021) Active Problems Problem Noted Date Hx of melanoma of skin 07/19/2021 Overview: Location: L upper back Year: 2016 Depth: MIS Treatment: WLE (positive margins on initial excision, then re-excised again with wider margins) Staging: Stage 0 - [id number] - Melanoma in situ Type 2 diabetes [...] as of this encounter (statuses as of 08/08/2021) Resolved Problems Problem Noted Date Resolved Date [...] Markers for Patients with Cardiovascular Disease Project #[id number] PI: Francoise Tomlin MD Please call [phone] with study related questions INTERFACED RESULT 11/17/2008 10/17/2011 GENOMICS CARDIO RESEARCH OTHER*[id number] 200806/25/2016 Overview: Renamed Per Clinical Trials Billing Project. Study Titile: Genomic Markers for Patients with Cardiovascular Disease Project #[id number] PI: Francoise Tomlin MD Please call [phone] with study related questions CLASS I-II ANGINA [...] as of this encounter (statuses as of 08/08/2021) Immunizations Name Administration Dates Next Due Pneumococcal [...] Comments:quit 30 yrs ago, wh ile in [employer] for 4 years Alcohol Use Standard Drinks/Week [...] Care Team Description 10/09/2021 Office Visit Pharmacy [facility] [address] [place] [address] 10/18/2021 Office Visit Cardiology Azael Lozano MD [address] [place] [address] 02/08/2022 Office Visit Family Medicine Carola Arrington MD [address] [place] [address] 08/08/2022 Office Visit Dermatology Lyssa Gar MD [address] [place] [address] Pending Results Name Type Priority Associated Diagnoses Date /Time HEMOGLOBIN A1C Lab Routine Type 2 diabetes mellitus with stage 3b chronic kidney disease, without long-term current use of insulin (HCC) 08/08/2021 11:25 AM EDT ALBUMIN / CREATININE RATIO, URINE Lab Routine Type 2 diabetes mellitus with stage 3b chronic kidney disease, with long-term current use of insulin (HCC) 08/08/2021 11:25 AM EDT Health Maintenance Due Date Last [...] Additional history exists CKD PHOS USE SMARTSET 73050 09/15/2021 04/3 , 04/18/2020, 04/27/2019, Additional history exists Depression Screening, Annual for Pts 12 and Over 10/26/2021 10/26/2020 CKD GFR USE SMARTSET 19809 01/09/202207/12, 02/07/2021, 01/26/2021, Additional history exists DIABETES-HGBA1C EVERY 6 MONTHS 01/09/2022 07/12/2021, 04/27/2021, 12/15/2020, Additional history exists CKD HGB USE SMARTSET 87992 01/26/202201/26, 01/26/2021, 09/15/2020, Additional history exists Yearly B-12 04/27/2022 04/27/2021, 12/0 05/2019, 04/27/2019, Additional history exists DTaP,Tdap,and Td Vaccines (2 - Td or Tdap) 07/10/2022 07/10/2012 BASIC METABOLIC PANEL (BMP) FOR HTN YEARLY 07/12/2022 07/12/2021, 02/07/2021, 01/26/2021, Additional history exists DIABETES-FOOT EXAM 08/08/2022 08/08/2021, [...] without long-term current use of insulin (HCC) Type 2 diabetes mellitus with stage 3b chronic kidney disease, with long-term current use of insulin (HCC) documented in this encounter Advance Directives Documents on File Type Date Recorded Patient Nurseryperson Expl anation Advanced Directive Advanced Directive Advanced [...] the patient have Health Care Power of Lease Out Man? Yes, not currently available Full Code 09/15/2009 [...] Advance Directives occurred with: Patient Care Teams Load Mixer Relationship Specialty Start Date End Date Carola Arrington MD [address] [place] [address] PCP - General Internal Medicine 12/19/20 documented as of this encounter
--- OUTSIDE RECORDS SUMMARY | 2023-02-21 02:40 | External Medical Summary | Summary of Care ---
Author Name Unknown Organization [place] [address] Care Team Providers Care Business Operations Manager Name Role Phone Carola Arrington MD Primary Care Provider Encounter Details Date Type Department Care Team Description 08/09/2021 Telephone Family Practice [facility] [address] [facility] [place] [address] Carola Arrington MD [address] [place] [address] Allergies No known active allergiesdocumented as of this encounter (statuses as of 10/02/2021) Medications Medication Sig Dispensed Refills Start Date [...] without long-term current use of insulin ([facility]),DM type 2, goal A1C to be determined [...] as of this encounter (statuses as of 10/02/2021) Active Problems Problem Noted Date Hx of melanoma of skin 07/19/2021 Overview: Location: L upper back Year: 2016 Depth: MIS Treatment: WLE (positive margins on initial excision, then re-excised again with wider margins) Staging: Stage 0 - [id number] - Melanoma in situ Type 2 diabetes [...] as of this encounter (statuses as of 10/02/2021) Resolved Problems Problem Noted Date Resolved Date [...] root 4.4 cm 4.29.[address] [facility]. HTN, goal below 130/80 06/14/2009 2 Overview: Per HTN Taxonomy. Type 2 diabetes mellitus wit h hemoglobin A1c goal of less than 7.0% 03/02/2009 03/27/2011 Overview: Modified per Diabetes protocol #14. ICD-10 update of inactive term EXAMINATION OF PARTICIPANT IN CLINICAL TRIAL-gen omics 11/17/2008 09/01/2009 Overview: Renamed Per Clinical Trials Billing Project. Study Titile: Genomic Markers for Patients with Cardiovascular Disease Project #[id number] PI: Francoise Tomlin MD Please call [phone] with study related questions INTERFACED RESULT 11/17/2008 10/17/2011 GENOMICS CARDIO RESEARCH OTHER*[id number] 200806/25/2016 Overview: Renamed Per Clinical Trials Billing Project. Study Titile: Genomic Markers for Patients with Cardiovascular Disease Project #[id number] PI: Francoise Tomlin MD Please call [phone] with study related questions CLASS I-II ANGINA [...] as of this encounter (statuses as of 10/02/2021) Immunizations Name Administration Dates Next Due Pneumococcal [...] Telephone Encounter - Carola Arrington MD - 08/09/2021 10:[address] Lozano - thoughts on decreasing losartan given consistently elevated K? 5.2- 5.4 for past 6 months. Sees you in October. documented in this encounter Plan of Treatment Upcoming Encounters Date Type Specialty Care Team Description 10/09/2021 Office Visit Pharm[facility] [address] [place] [address] 10/18/2021 Office Visit Cardiology Azael Lozano MD [address] [place] [address] 02/08/2022 Office Visit Family Medicine Carola Arrington MD [address] [place] [address] 08/08/2022 Office Visit Dermatology Lyssa Gar MD [address] [place] [address], [place] [address] Health Maintenance Due Date Last Done Comments COVID-19 Vaccine (1) 1941 Dexa Scan 1986 Zoster Vaccines (1 of 2) 1986 COLONOSCOPY-EVERY 5 YRS AGES 18-100 03/20/2021 03/20/2016, 04/30/2010, 02/05/2002 DIABETES-EYE EXAM 08/16/2021 08/16/2020, , 04/15/2012, Additional history exists CKD PHOS USE SMARTSET 13776 09/15/2021 04/, 04/18/2020, 04/27/2019, Additional history exists Depression Screening, Annual for Pts 12 and Over 10/26/2021 10/26/2020 Influenza Vaccine (FLU shot) (Season Ended) 2022 02/21/2020, 03/02/2019, 03/01/2018, Additional history exists CKD HGB USE SMARTSET 97923 01/26/202201/26, 01/26/2021, 09/15/2020, Additional history exists CKD GFR USE SMARTSET 33048 02/08/202208/08, 07/12/2021, 02/07/2021, Additional history exists DIABETES-HGBA1C [...] Documents on File Type Date Recorded Patient Drywall Sprayer Expl anation Advanced Directive Advanced Directive Advanced [...] patient have Health Care Power of Insurance Sales Assistant? Yes, not currently available Full Code [...] Advance Directives occurred with: Patient Care Teams Business Operations Manager Relationship Specialty Start Date End Date Carola Arrington MD [address] [place] [address] PCP - General Internal Medicine 12/19/20 documented as of this encounter
--- OUTSIDE RECORDS SUMMARY | 2023-02-21 02:40 | External Medical Summary ---
Author Name Unknown Address Unknown Organization K01:LABORATORY [facility] - [address] [place] [address] Laboratory Report Ordering Provider Test Date Status LIYA GARRETT 08/08/2021 11:25:38 Final Observation Date Value Abnormality Reference (Units ) Status Albumin, Urine 08/08/2021 11:25:38 2.03 (mg/dL) Final Creatinine, Urine 08/08/2021 11:25:38 26 (mg/dL) Final Albumin/Creatinine [Mass Ratio] in Urine 08/08/2021 11:25:38 78 Above high normal <30 (mg/g Creat) Final Performing Location [facility]ORY [facility] - [address] [place] [address]
--- OUTSIDE RECORDS SUMMARY | 2023-02-21 02:40 | External Medical Summary | Summary of Care ---
Author Name Unknown Organization [place] [address] Care Team Providers Care Fisher Pound Net Or Trap Name Role Phone Carola Arrington MD Primary Care Provider Reason for Visit * Reason Comments eRx-Medication Refill Encounter Details Date Type Department Care Team Description 09/13/[address] [facility] [address] [facility] [place] [address] Carola Arrington MD [address] [facility] [place] [address] Allergies No known active allergiesdocumented as of this encounter (statuses as of 09/14/2021) Medications Medication Sig Dispensed Refills Start Date [...] as of this encounter (statuses as of 09/14/2021) Active Problems Problem Noted Date Hx of melanoma of skin 07/19/2021 Overview: Location: L upper back Year: 2016 Depth: MIS Treatment: WLE (positive margins on initial excision, then re-excised again with wider margins) Staging: Stage 0 - [id number] - Melanoma in situ Type 2 diabetes [...] as of this encounter (statuses as of 09/14/2021) Resolved Problems Problem Noted Date Resolved Date [...] Aortic root 4.4 cm 4.29.2009 echo at [facility]. HTN, goal below 130/80 [...] Markers for Patients with Cardiovascular Disease Project #[id number] PI: Francoise Tomlin MD Please call [phone] with study related questions INTERFACED RESULT 11/17/2008 10/17/2011 GENOMICS CARDIO RESEARCH OTHER*[id number] 200806/25/2016 Overview: Renamed Per Clinical Trials Billing Project. Study Titile: Genomic Markers for Patients with Cardiovascular Disease Project #[id number] PI: Francoise Tomlin MD Please call [phone] with study related questions CLASS I-II ANGINA [...] as of this encounter (statuses as of 09/14/2021) Immunizations Name Administration Dates Next Due Pneumococcal [...] Comments:quit 30 yrs ago, wh ile in [employer] for 4 years Alcohol Use Standard Drinks/Week [...] encounter Miscellaneous Notes * Telephone Encounter - Alvarado Mccarty, [facility] - 09/14/2021 10:26 AM EDT Refused Prescriptions: Disp Refills metFORMIN HCl 500 MG Oral Tablet (Glucopha*90 Tab*1 Sig: TAKE 1TABLET BY MOUTH EVERY DAY WITH BREAKFASTRefused By: ALVARADO MCCARTY for Refusal: Other (comment below)Reason for Refusal Comment: dose changed documented in this encounter Plan of Treatment Upcoming Encounters Date Type Specialty Care Team Description 10/09/2021 Office Visit Pharmacy [facility] [address] [place] [address] 10/18/2021 Office Visit Cardiology Azael Lozano MD [address] [place] [address] 02/08/2022 Office Visit Family Medicine Carola Arrington MD [address] [place] [address] 08/08/2022 Office Visit Dermatology Lyssa Gar MD [address] [place] [address] Health Maintenance Due Date Last Done Comments COVID-19 Vaccine (1) 1940 Dexa Scan 1986 Zoster Vaccines (1 of 2) 1986 COLONOSCOPY-EVERY 5 YRS AGES 18-100 03/20/2021 03/20/2016, 04/30/2010, 02/05/2002 DIABETES-EYE EXAM 08/16/2021 08/16/2020, , 04/15/2012, Additional history exists CKD PHOS USE SMARTSET 06884 09/15/2021 04/3 , 04/18/2020, 04/27/2019, Additional history exists Depression Screening, Annual for Pts 12 and Over 10/26/2021 10/26/2020 Influenza Vaccine (FLU shot) (Season Ended) 2022 02/21/2020, 03/02/2019, 03/01/2018, Additional history exists CKD HGB USE SMARTSET 30857 01/26/202201/26, 01/26/2021, 09/15/2020, Additional history exists CKD GFR USE SMARTSET 39517 02/08/202208/08, 07/12/2021, 02/07/2021, Additional history exists DIABETES-HGBA1C [...] Documents on File Type Date Recorded Patient Senior Audit Manager Expl anation Advanced Directive Advanced Directive Advanced [...] the patient have Health Care Power of Statistics Intern? Yes, not currently available Full Code 09/15/2009 [...] Advance Directives occurred with: Patient Care Teams [employer] Relationship Specialty Start Date End Date Carola Arrington MD [address] [place] [address] PCP - General Internal Medicine 12/19/20 documented as of this encounter
--- OUTSIDE RECORDS SUMMARY | 2023-02-21 02:40 | External Medical Summary | Summary of Care ---
Author Name Unknown Organization [place] [address] Care Team Providers Care Entry Manager Name Role Phone Carola Arrington MD Primary Care Provider Reason for Visit * Reason Comments eRx-Medication Refill Encounter Details Date Type Department Care Team Description 08/23/2021 Refill Cardiology, [facility] [address] [facility] [place] [address] Sushila Lozano MD [address] [facility] [place] [address] Chronic coronary artery disease; Aortocoronary bypass status; HTN, goal below 140/90 Allergies No known active allergiesdocumented as of this encounter (statuses as of 08/24/2021) Medications Medication Sig Dispensed Refills Start Date End Date Status aspirin 81 MG chewable tablet Take 1 Tab by mouth daily. 34 Tab 11 10/28/2017 Active nitroglycerin (NITROSTAT) 0.4 MG SUBLIndications:Ch ronic coronary artery disease DISSOLVE 1 TABLET UNDER THE TONGUE EVERY 5 MINUTES FOR CHEST PAIN. UP TO 3 DOSES IN 15 MINUTES. 25 Tab 1 11/17/2018 Active Ranolazine ER 1000 MG Oral Tablet Extended Release 12 HourIndications:Ch est pain,Unstable angina (HCC) TAKE 1 TABLET TWICE A DAY 180 Tab 3 09/04/2020 Active amLODIPine [...] EVERY DAY 180 Tablet 3 08/24/2021 Active Metoprolol Succinate ER 25 MG Oral Tablet Extended Release 24 Hour (toPROL XL)Indications:Chr onic coronary artery disease,Aortocoron jovanna bypass status,HTN, goal below 140/90 TAKE 2 TABLETS BY MOUTH EVERY DAY 180 Tab 3 09/04/2020 2 Discontinued documented as of this encounter (statuses as of 08/24/2021) Active Problems Problem Noted Date Hx of melanoma of skin 07/19/2021 Overview: Location: L upper back Year: 2016 Depth: MIS Treatment: WLE (positive margins on initial excision, then re-excised again with wider margins) Staging: Stage 0 - [id number] - Melanoma in situ Type 2 diabetes [...] as of this encounter (statuses as of 08/24/2021) Resolved Problems Problem Noted Date Resolved Date [...] root 4.4 cm 4.29.[address] [facility]. HTN, goal below 130/80 06/14/2009 2 Overview: Per HTN Taxonomy. Type 2 diabetes mellitus wit h hemoglobin A1c goal of less than 7.0% 03/02/2009 03/27/2011 Overview: Modified per Diabetes protocol #14. ICD-10 update of inactive term EXAMINATION OF PARTICIPANT IN CLINICAL TRIAL-gen omics 11/17/2008 09/01/2009 Overview: Renamed Per Clinical Trials Billing Project. Study Titile: Genomic Markers for Patients with Cardiovascular Disease Project #[id number] PI: Francoise Tomlin MD Please call [phone] with study related questions INTERFACED RESULT 11/17/2008 10/17/2011 GENOMICS CARDIO RESEARCH OTHER*[id number] 200806/25/2016 Overview: Renamed Per Clinical Trials Billing Project. Study Titile: Genomic Markers for Patients with Cardiovascular Disease Project #[id number] PI: Francoise Tomlin MD Please call [phone] with study related questions CLASS I-II ANGINA [...] as of this encounter (statuses as of 08/24/2021) Immunizations Name Administration Dates Next Due Pneumococcal [...] Comments:quit 30 yrs ago, wh ile in [employer] [place] [employer] for 4 years Alcohol Use Standard Drinks/Week [...] Telephone Encounter - Sushila Lozano MD - 08/24/2021 12:41 PM EDT Signed Prescriptions: Disp Refills Metoprolol Succinate ER 25 MG Oral Tablet *180 Ta*3 Sig: TAKE 2 TABLETS BY MOUTH EVERY DAY Authorizing Provider: SUSHILA LOZANO * Telephone Encounter - Tomás Bright LPN - 08/24/2021 12:40 PM EDT Pending Prescriptions: Disp Refills Metoprolol Succinate ER 25 MG Oral Tablet*180 Ta*3 Sig: TAKE 2 TABLETS BY MOUTH EVERY DAY * Telephone Encounter - Tomás Bright LPN - 08/24/2021 12:39 PM EDT Pending Prescriptions: Disp Refills Metoprolol Succinate ER 25 MG Oral Tablet*180 Ta*3 Sig: TAKE 2 TABLETS BY MOUTH EVERY DAY Last Visit: 02/15/2021 (in office), 09/17/2019 (telemedicine) Next Visit: 10/18/2021 If no future appointments scheduled, and last appointment is greater than a year ago, please schedule patient for a follow-up appointment Last date the medication was ordered: 09/04/20 Pharmacy: [facility] [id number] [place] Is this request for a controlled substance?No Urine Drug Screen:No results found for this or any previous visit. Patient Phone Numbers Labs: Lab Results Component Value Date/Time CREAT 1.4 (H) 08/08/2021 11:25 AM CREAT 1.9 (H) 04/18/2020 08:29 AM POTASSIUM 5.2 (H) 08/08/2021 11:25 AM POTASSIUM 5.0 04/18/2020 08:29 AM TSH 2.56 06/21/2020 03:37 PM TSH 2.81 01/01/2017 01:44 PM LDLCALC 30 10/27/2019 09:03 AM LDLDIRECT 52 09/15/2020 10:32 AM LDLDIRECT NOT APPLICABLE 10/27/2019 09:03 AM LDLDIRECT 50 10/24/2016 11:50 AM ALT 26 01/26/2021 10:03 AM ALT 23 04/18/2020 08:29 AM HGBA1C 10.9 (H) 08/08/2021 11:25 AM HGBA1C 9.7 (H) 04/18/2020 08:29 AM documented in this encounter Plan of Treatment Upcoming Encounters Date Type Specialty Care Team Description 10/09/2021 Office Visit Pharmacy [facility] [address] [place] [address] 10/18/2021 Office Visit Cardiology Sushila Lozano MD [address] [place] [address] 02/08/2022 Office Visit Family Medicine Carola Arrington MD [address] [place] [address] 08/08/2022 Office Visit Dermatology Lyssa Gar MD [address] [place] [address], [place] [address] Health Maintenance Due Date Last Done Comments COVID-19 Vaccine (1) 1940 Dexa Scan 1986 Zoster Vaccines (1 of 2) 1986 COLONOSCOPY-EVERY 5 YRS AGES 18-100 03/20/2021 03/20/2016, 04/30/2010, 02/05/2002 DIABETES-EYE EXAM 08/16/2021 08/16/2020, , 04/15/2012, Additional history exists CKD PHOS USE SMARTSET 51068 09/15/2021 04/3 , 04/18/2020, 04/27/2019, Additional history exists Depression Screening, Annual for Pts 12 and Over 10/26/2021 10/26/2020 Influenza Vaccine (FLU shot) (Season Ended) 2022 02/21/2020, 03/02/2019, 03/01/2018, Additional history exists CKD HGB USE SMARTSET 44992 01/26/202201/26, 01/26/2021, 09/15/2020, Additional history exists CKD GFR USE SMARTSET 72649 02/08/202208/08, 07/12/2021, 02/07/2021, Additional history exists DIABETES-HGBA1C [...] type of vessel, [place] or graft Aortocoronary bypass status Postsurgical aortocoronary bypass status HTN, goal below 140/90 Unspecified essential hypertension documented in this encounter Advance Directives Documents on File Type Date Recorded Patient Commercial Producer Expl anation Advanced Directive Advanced Directive Advanced [...] the patient have Health Care Power of Carriage Operator? Yes, not currently available Full Code 09/15/2009 [...] Advance Directives occurred with: Patient Care Teams Entry Manager Relationship Specialty Start Date End Date Carola Arrington MD [address] [facility] [place] [address] PCP - General Internal Medicine 12/19/20 documented as of this encounter
--- OUTSIDE RECORDS SUMMARY | 2023-02-21 02:40 | External Medical Summary | Summary of Care ---
Author Name Unknown Organization [place] [address] Care Team Providers Care Dance Professor Name Role Phone Carola Arrington MD Primary Care Provider Reason for Visit * Reason Onset Date Comments Medication Refill 08/22/2021 Encounter Details Date Type Department Care Team Description 08/22/2021 Refill Family Practice [facility] [address] [facility] [place] [address] Carola Arrington MD [address] [facility] [place] [address] Dyslipidemia, goal LDL below 70; Dyslipidemia, goal LDL below 160; Mixed dyslipidemia Allergies No known active allergiesdocumented as of this encounter (statuses as of 08/22/2021) Medications Medication Sig Dispensed Refills Start Date [...] the morning. 90 Tablet 4 08/22/2021 Active Rosuvastatin Calcium 20 MG Oral Tablet (Crestor)Indicatio ns:Dyslipidemia, goal LDL below 70,Dyslipidemia, goal LDL below 160,Mixed dyslipidemia Take 1 Tab by mouth daily. 90 Tab 4 05/30/2020 08/22/2021 Discontinue d(Refill) documented as of this encounter (statuses as of 08/22/2021) Active Problems Problem Noted Date Hx of melanoma of skin 07/19/2021 Overview: Location: L upper back Year: 2016 Depth: MIS Treatment: WLE (positive margins on initial excision, then re-excised again with wider margins) Staging: Stage 0 - [id number] - Melanoma in situ Type 2 diabetes [...] as of this encounter (statuses as of 08/22/2021) Resolved Problems Problem Noted Date Resolved Date [...] Markers for Patients with Cardiovascular Disease Project #[id number] PI: Francoise Tomlin MD Please call [phone] with study related questions INTERFACED RESULT 11/17/2008 10/17/2011 GENOMICS CARDIO RESEARCH OTHER*[id number] 200806/25/2016 Overview: Renamed Per Clinical Trials Billing Project. Study Titile: Genomic Markers for Patients with Cardiovascular Disease Project #[id number] PI: Francoise Tomlin MD Please call [phone] with study related questions CLASS I-II ANGINA [...] as of this encounter (statuses as of 08/22/2021) Immunizations Name Administration Dates Next Due Pneumococcal [...] Comments:quit 30 yrs ago, wh ile in [employer] for 4 years Alcohol Use Standard Drinks/Week [...] Telephone Encounter - Carola Arrington MD - 08/22/2021 5:51 PM EDT Signed Prescriptions: Disp Refills Rosuvastatin Calcium 20 MG Oral Tablet (Cr*90 Tab*4 Sig: Take by mouth 1 Tablet in the morning. Authorizing Provider: CAROLA ARRINGTON * Telephone Encounter - Marlen Riley MED ASSIST - 08/22/2021 1:31 PM EDT Pending Prescriptions: Disp Refills Rosuvastatin Calcium 20 MG Oral Tablet (C*90 Tab*4 Sig: Take by mouth 1 Tablet in the morning. * Telephone Encounter - NERIS Brower - 08/22/2021 1:26 PM EDT Pending Prescriptions: Disp Refills Rosuvastatin Calcium 20 MG Oral Tablet (C*90 Tab*4 Sig: Take by mouth 1 Tablet in the morning. Last Visit: 08/08/2021 (in office), Visit date not found (telemedicine) Next Visit: 02/08/2022 If no future appointments scheduled, and last appointment is greater than a year ago, please schedule patient for a follow-up appointment Last date the medication was ordered: 05/30/20 Pharmacy: [facility] documented in this encounter Plan of Treatment Upcoming Encounters Date Type Specialty Care Team Description 10/09/2021 Office Visit Pharmacy [facility] [address] [place] [address] 10/18/2021 Office Visit Cardiology Azael Lozano MD [address] [place] [address] 02/08/2022 Office Visit Family Medicine Carola Arrington MD [address] [place] [address] 08/08/2022 Office Visit Dermatology Lyssa Gar MD [address] [place] [address], [place] [address] Health Maintenance Due Date Last Done Comments COVID-19 Vaccine (1) 1940 Dexa Scan 1986 Zoster Vaccines (1 of 2) 1986 COLONOSCOPY-EVERY 5 YRS AGES 18-100 03/20/2021 03/20/2016, 04/30/2010, 02/05/2002 DIABETES-EYE EXAM 08/16/2021 08/16/2020, , 04/15/2012, Additional history exists CKD PHOS USE SMARTSET 64000 09/15/2021 04/3 , 04/18/2020, 04/27/2019, Additional history exists Depression Screening, Annual for Pts 12 and Over 10/26/2021 10/26/2020 Influenza Vaccine (FLU shot) (Season Ended) 2022 02/21/2020, 03/02/2019, 03/01/2018, Additional history exists CKD HGB USE SMARTSET 65276 01/26/202201/26, 01/26/2021, 09/15/2020, Additional history exists CKD GFR USE SMARTSET 28838 02/08/202208/08, 07/12/2021, 02/07/2021, Additional history exists DIABETES-HGBA1C [...] hyperlipidemia documented in this encounter Advance Directives Documents on File Type Date Recorded Patient Pit Manager Expl anation Advanced Directive Advanced Directive [...] the patient have Health Care Power of Workforce Manager? Yes, not currently available Full Code 09/15/2009 [...] Advance Directives occurred with: Patient Care Teams Dance Professor Relationship Specialty Start Date End Date Carola Arrington MD [address] [place] [address] PCP - General Internal Medicine 12/19/20 documented as of this encounter
--- OUTSIDE RECORDS SUMMARY | 2023-02-21 02:40 | External Medical Summary | Summary of Care ---
Author Name Unknown Organization [place] [address] Care Team Providers Care Branch Services Manager Name Role Phone Carola Arrington MD Primary Care Provider Reason for Visit * Reason Onset Date Comments Health Maintenance 09/13/2021 Encounter Details Date Type Department Care Team Description 09/13/2021 Telephone Family Practice [facility] [address] [place] [address] Carola Arrington MD [address] [facility] [place] [address] Health Maintenance Allergies No known active allergiesdocumented as of this encounter (statuses as of 09/13/2021) Medications Medication Sig Dispensed Refills Start Date [...] as of this encounter (statuses as of 09/13/2021) Active Problems Problem Noted Date Hx of melanoma of skin 07/19/2021 Overview: Location: L upper back Year: 2016 Depth: MIS Treatment: WLE (positive margins on initial excision, then re-excised again with wider margins) Staging: Stage 0 - [id number] - Melanoma in situ Type 2 diabetes [...] as of this encounter (statuses as of 09/13/2021) Resolved Problems Problem Noted Date Resolved Date [...] Aortic root 4.4 cm 4.29.2009 echo at [facility]. HTN, goal below 130/80 06/14/2009 [...] Markers for Patients with Cardiovascular Disease Project #[id number] PI: Francoise Tomlin MD Please call [phone] with study related questions INTERFACED RESULT 11/17/2008 10/17/2011 GENOMICS CARDIO RESEARCH OTHER*[id number] 200806/25/2016 Overview: Renamed Per Clinical Trials Billing Project. Study Titile: Genomic Markers for Patients with Cardiovascular Disease Project #[id number] PI: Francoise Tomlin MD Please call [phone] with study related questions CLASS I-II ANGINA [...] as of this encounter (statuses as of 09/13/2021) Immunizations Name Administration Dates Next Due Pneumococcal [...] Comments:quit 30 yrs ago, wh ile in [employer] for 4 years Alcohol Use Standard Drinks/Week [...] encounter Miscellaneous Notes * Telephone Encounter - Fariba Crump LPN - 09/13/2021 8:34 AM EDT Care Gaps Comprehensive Care Outreach Last Office/Telemedicine Visit: 08/08/2021 (in office), Visit date not found (telemedicine) Last Office/Telemedine Visit Annual Wellness: Next Office Visit: 02/08/2022 Reviewed Health Maintenance below: Health Maintenance Care needs: Frequency: Last completed: Due next: Covid-19 Vaccine (#1[1) Series 1940 Bone Density 1 Year 1986 Zoster (Shingles) Vaccine (#1[1 of 2) Series 1985 Dilated Eye Exam (By Eye Doctor Or Retinal Camera) 1 Year 08/16/2020 08/16/2021 Phosphorus Monitoring (Kidney Disease) 1 Year 09/15/2020 09/15/2021 Flu Vaccine (Recommended) (#[Season Ended) Series 02/21/2020 01/17/2022 Anemia Monitoring (Kidney Disease) 1 Year 01/26/2021 01/26/2022 A1c Blood Sugar Test - Every 6 Months 6 Months 08/08/2021 02/08/2022 Kidney Function Test (Kidney Disease) 6 Months 08/08/2021 02/08/2022 Yearly B-12 Vitamin Test 1 Year 04/27/2021 04/27/2022 Care Gap Outreach Action Taken: Left message documented in this encounter Plan of Treatment Upcoming Encounters Date Type Specialty Care Team Description 10/09/2021 Office Visit Pharmacy [facility] [address] [place] [address] 10/18/2021 Office Visit Cardiology Azael Lozano MD [address] [place] [address] 02/08/2022 Office Visit Family Medicine Carola Arrington MD [address] [place] [address] 08/08/2022 Office Visit Dermatology Lyssa Gar MD [address] [place] [address], [place] [address] Health Maintenance Due Date Last Done Comments COVID-19 Vaccine (1) 1940 Dexa Scan 1986 Zoster Vaccines (1 of 2) 1986 COLONOSCOPY-EVERY 5 YRS AGES 18-100 03/20/2021 03/20/2016, 04/30/2010, 02/05/2002 DIABETES-EYE EXAM 08/16/2021 08/16/2020, , 04/15/2012, Additional history exists CKD PHOS USE SMARTSET 04773 09/15/2021 04/3 , 04/18/2020, 04/27/2019, Additional history exists Depression Screening, Annual for Pts 12 and Over 10/26/2021 10/26/2020 Influenza Vaccine (FLU shot) (Season Ended) 2022 02/21/2020, 03/02/2019, 03/01/2018, Additional history exists CKD HGB USE SMARTSET 33453 01/26/202201/26, 01/26/2021, 09/15/2020, Additional history exists CKD GFR USE SMARTSET 54723 02/08/202208/08, 07/12/2021, 02/07/2021, Additional history exists DIABETES-HGBA1C [...] on File Type Date Recorded Patient Sales Representative Livestock Expl anation Advanced Directive Advanced Directive Advanced [...] the patient have Health Care Power of Pillar Man? Yes, not currently available Full Code [...] Advance Directives occurred with: Patient Care Teams Branch Services Manager Relationship Specialty Start Date End Date Carola Arrington MD [address] [facility] [place] [address] PCP - General Internal Medicine 12/19/20 documented as of this encounter
--- OUTSIDE RECORDS SUMMARY | 2023-02-21 02:40 | External Medical Summary | Summary of Care ---
Author Name Unknown Organization [place] [address] Care Team Providers Care Tannery Gummer Name Role Phone Carola Arrington MD Primary Care Provider Reason for Visit * Reason Comments Re-Check Blocked Ears would like ears chec ked for cerumen Encounter Details Date Type Department Care Team Description 08/08/2021 Office Visit Family Practice [facility] [address] [facility] [address] Carola Arrington MD [address] [place] [address] Type 2 diabetes mellitus with stage 3b chronic kidney disease, with long-term current use of insulin (HCC)*; DM type 2 nursing care encounter (HCC); Hypertensive kidney disease with stage 3b chronic kidney disease; HTN, goal below 140/90; Stable angina ([facility]); S/P angioplasty with stent; Risk and functional assessment Allergies No known active allergiesdocumented as of [...] without long-term current use of insulin ([facility]),DM type 2, goal A1C to be determined ([facility]) Use with insulin pen once daily [...] 2, goal A1C to be determined ([facility]) Take 3 tablets daily. Take with food. 270 Tablet 1 07/16/2021 Active Lantus SoloStar 100 UNIT/ML Subcutaneous Solution Pen-injector (Insulin Glargine)Indications: DM type 2, goal A1C to be determined ([facility]),Type 2 diabetes mellitus with stage 3b chronic kidney disease, without long-term current use of insulin ([facility]) Inject under the skin 22 Units [...] with wider margins) Staging: Stage 0 - TnmL2A6 - Melanoma in situ Type 2 diabetes [...] Aortic root 4.4 cm 4.29.2009 echo at [facility]. HTN, goal below 130/80 06/14/2009 [...] Markers for Patients with Cardiovascular Disease Project #[id number] PI: Francoise Tomlin MD Please call [phone] with study related questions INTERFACED RESULT 11/17/2008 10/17/2011 GENOMICS CARDIO RESEARCH OTHER*[id number] 200806/25/2016 Overview: Renamed Per Clinical Trials Billing Project. Study Titile: Genomic Markers for Patients with Cardiovascular Disease Project #[id number] PI: Francoise Tomlin MD Please call [phone] with study related questions CLASS I-II ANGINA [...] Comments:quit 30 yrs ago, wh ile in [place] for 4 years Alcohol Use Standard Drinks/Week [...] Sign Reading Time Taken Comments Blood Pressure 128/66 08/08/2021 10:04 AM EDT Pulse 60 08/08/2021 10:04 AM EDT Temperature 35.6 C (96 F) 08/08/2021 10:04 AM EDT Respiratory Rate 12 08/08/2021 10:04 AM EDT Oxygen Saturation - - Inhaled Oxygen Concentration - - Weight 69.6 kg (153 lb 6.4 oz) 08/08/2021 10:04 AM EDT Height - - Body Mass Index 21.39 01/26/2021 8:54 AM EDT documented in this encounter Patient Instructions * Patient Instructions* Hipolito Montoya RN - 08/08/2021 10:02 AM EDT Ideas to help lower blood sugar with dietary choices: -- Try to eat less of the starchy foods - such as bread, pasta, potatoes, rice, beets, corn. These have a lot of sugar. Keep to 1/4 of the plate or less. Patient Instructions - Fall Prevention (This education [...] 10 times. Repeat this throughout the day. Paul Patient Education Copyright 2009 - 2010 Paul [...] that mean climbing, even on a stepstool. [place] Patient Education Copyright 2008 - 2010 Paul except where otherwise noted. Treating Urinary Incontinence [...] prostate surgery can result in permanent incontinence. Diabetes: Keeping Feet Healthy Inspect your feet every day for signs of a problem. Diabetes can damage nerves in your feet and cause neuropathy. This condition makes it hard for you to feel injuries or sore spots. Diabetes can also change blood flow, making it harder for small problems, like a blister, to heal properly. In fact, minor injuries can quickly become serious infections that send you to the hospital. Practice self-care to protect your feet and keep them healthy. Take Special Care Inspect your feet daily for problems such as redness, blisters, cracks, dry skin, or numbness. Use a mirror to see the bottoms of your feet. Or, ask for help. Manage your diabetes. Monitor and control your blood sugar. Take all your medications as prescribed. Avoid walking barefoot, even indoors. Wash your feet with warm water and mild soap. Dry well, especially between toes. Dont treat corns or calluses yourself. Talk to your doctor or aircraft ordnance technician (a doctor who specializes in foot care) if you need assistance trimming your toenails. Use moisturizing cream or lotion if you have dry skin, but dont use it between toes. Dont use heating pads on your feet. If you have neuropathy, you could get a burn and not feel it. Stop smoking. Smoking restricts blood flow and can make it harder for wounds to heal. Have Regular Checkups Foot problems can develop quickly. So be sure to follow your healthcare teams schedule for regular checkups. During office visits, take off your shoes and socks as soon as you get in the exam room. Ask your healthcare provider to examine your feet for problems. This will make it easier to find and treat small skin irritations before they get worse. Regular checkups can also help keep track of the blood flow and feeling in your feet. If you have neuropathy, you may need to have checkups more often. Wear Proper Footwear Wearing proper footwear is very important. If areas of your feet have been damaged by too much pressure, your healthcare provider may recommend changing your footwear. In some cases, avoiding high heels or tight work boots may be all thats needed. Or, your healthcare provider may recommend special shoes or custom inserts. These help protect your feet and keep existing irritations from getting worse. If you need special footwear, ask your healthcare provider if you qualify for [employer] diabetic shoe program. Make Sure Shoes and Socks Fit Any pair of shoesnew or oldshould feel comfortable as soon as you put them on. There shouldnt be any rubbing when you walk. Wear the right shoe for any activity. For instance, a running shoeis designed to keep your feet injury-free while jogging. Buy shoes at the end of the day, when yourfeet are larger. Make sure they provide support without feeling too loose. Make sure your socks fit, too. Wear soft, seamless, well-padded socks for activity. Cotton or microfiber socks are best to help to absorb sweat. To protect your feet, avoid shoes that are open-toed or open-heeled. If you have questions about what kinds of shoes and socks are best, talk to your healthcare team. Get Regular Exercise Regular exercise improves blood flow in your feet. It also increases foot strength and flexibility.Gentle exercises, like walking or riding a stationary bicycle, are best. You can also do special foot exercises. Just be sure to talk with your healthcare provider before starting any exercise program. Also mention if any exercise causes pain, redness, or other signs of foot problems. Note: If you have any kind of break in the skin of your foot or ankle, keep the area clean. Then call your doctorespecially if the area doesnt appear to be healing. [id number] [employer], [address] [place] [address]. All rights reserved. This information is not intended as a substitute for professional medical care. Always follow your healthcare professional's instructions. documented in this encounter Progress Notes * Carola Arrington MD - 08/08/2021 10:22 AM EDT Images from the original note were not included. History of Present Illness Dirk Garcia is a 86 year old male that presents for Re-Check and Blocked Ears (would like ears checked for cerumen) HPI Diabetes: Follows with [facility] for diabetes management, last seen in June, A1C 11.5. Lantus increased to 20units. Metformin increased to 1500 mg daily. Does not have glucometer to check blood sugars, does not want to check blood sugars. Breakfast: oatmeal or two pieces toast. Sometimes waffle shop. No juice. Lunch: canned soup (chicken noodle or cream mushroom), sometimes apple sauce, water. Dinner: fish or chicken; rice/potato/pasta; salad/beans/cauliflower/jaimes beans. Sometimes pasta. Desserts: apple sauce or tapioca pudding cup. Sometimes soda. bakes less than used to. Taking 1 prune twice a day for constipation. CKD: Most recent GFR improved. Potassium elevated at 5.2 with mild hyponatremia. Colon adenomas: Visit had been scheduled to discuss colonoscopy with GI, appears to have been canceled. Patient is not interested in further colon cancer screening. CAD/HTN: Status post CABG. Rides exercise bicycle 60-70 minutes daily. Does get winded easily when walking, does not have chest pain or pressure, or calf pain. Cannot recall last use of nitroglycerin. Followswith Cardiology, next visit in October. Derm: Has seen Dermatology recently, had early cancerous lesion removed, no further intervention needed. working at the [employer] middle [employer]. Goes to [employer] to watch granddaughters play softball. 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 medication and allergy list reviewed pmhx and problem list reviewed Physical Exam Vitals: 08/08/21 1004 Temp: 35.6 C (96 F) Pulse: 60 Resp: 12 BP: 128/66 BP Readings from Last 3 Encounters: 08/08/21 128/66 02/15/21 150/78 01/26/21 144/70 Wt Readings from Last 3 Encounters: 08/08/21 69.6 kg (153 lb 6.4 oz) 02/15/21 68 kg (150 lb) 01/26/21 67.4 kg (148 lb 9.6 oz) Physical Exam Vitals and nursing note reviewed. Constitutional: Appearance: Normal appearance. He is not ill-appearing. HENT: Right Ear: Tympanic membrane, ear canal and external ear normal. There is no impacted cerumen (Scant wax). Left Ear: Tympanic membrane, ear canal and external ear normal. There is no impacted cerumen (No wax). Mouth/Throat: Mouth: Mucous membranes are moist. Pharynx: Oropharynx is clear. No oropharyngeal exudate or posterior oropharyngeal erythema. Eyes: General: No scleral icterus. Pupils: Pupils are equal, round, and reactive to light. Cardiovascular: Rate and Rhythm: Normal rate and regular rhythm. Heart sounds: No murmur heard. Pulmonary: Effort: Pulmonary effort is normal. Breath sounds: Normal breath sounds. Musculoskeletal: Right lower leg: No edema. Left lower leg: No edema. Skin: Coloration: Skin is not jaundiced or pale. Neurological: Mental Status: He is alert. Psychiatric: Behavior: Behavior normal. I have reviewed the following results: CMP, CBC and B12 Assessment and Plan Type 2 diabetes mellitus with stage 3b chronic kidney disease, with long-term current use of insulin (HCC) Unclear why control got substantially worse in the last 2 years. Encouraged decrease intake of starchy carbs. Following with [facility] to titrate insulin and other medications. Will check creatinine clearance today as metformin was increased above 1000 mg daily. - ALBUMIN / CREATININE RATIO, URINE; Future DM type 2 nursing care encounter ([facility]) Mild peripheral neuropathy - DIABETES FOOT EXAM Hypertensive kidney disease with stage 3b chronic kidney disease GFR improved recently. Mild stable hyperkalemia. Will recheck today. - BASIC METABOLIC PANEL HTN, goal below 140/90 Well controlled. Not dizzy or falling. Stable angina (HCC) S/P angioplasty with stent Sees Cardiology in 2 and half months. Risk and functional assessment Patient Instructions Ideas to help lower blood sugar with dietary choices: -- Try to eat less of the starchy foods - such as bread, pasta, potatoes, rice, beets, corn. These have a lot of sugar. Keep to 1/4 of the plate or less. Wrap-Up Follow Up: Return in about 6 months (around 02/08/2022) for Labs Today, Return with [facility]. | For: Labs Today, Return with [facility] Time: I spent a total of 40-54 minutes (exact time 42 mins) on the date of service in preparation, delivery, and documentation of the care provided to Dirk Garcia excluding any time spent in theperformance of separately billed services. * Hipolito Montoya RN - 08/08/2021 10:11 AM EDT DM Foot Exam completed today. Provider aware. Hipolito Montoya RN Socks and Shoes Removed for Annual Diabetic Foot Screening RIGHT FOOT: No Reddened, Cracking, Or Open Areas Noted. RIGHT Dorsalis Pedis Pulse: Palpable RIGHT Posterior Tibial Pulse: Unable to locate RIGHT Monofilament:Patient reports difficulty feeling monofilament at Great toe- plantar surface, Ball of Foot-base of great toe and Ball of Foot-base of 3rd toe LEFT FOOT: No Reddened, Cracking or Open Areas Noted. LEFT Dorsalis Pedis Pulse: Palpable LEFT Posterior Tibial Pulse: Palpable LEFT Monofilament:Patient reports difficulty feeling monofilament at Great toe- plantar surface, Ball of Foot-base of great toe and Ball of Foot-base of little toe documented in this encounter Nursing Notes * Hipolito Montoya RN - 08/08/2021 10:02 AM EDT Chief Complaint Patient presents with Re-Check Blocked Ears would like ears checked for cerumen documented in this encounter Plan of Treatment Upcoming Encounters Date Type Specialty Care Team Description 10/09/2021 Office Visit Pharmacy [facility] [address] [address] 10/18/2021 Office Visit Cardiology Azael Lozano MD [address] [place] [address] 02/08/2022 Office Visit Family Medicine Carola Arrington MD [address] [place] [place] [address] 08/08/2022 Office Visit Dermatology Lyssa Gar MD [address] [facility], [place] [address] Pending Results Name Type Priority Associated Diagnoses Date /Time ALBUMIN / CREATININE RATIO, URINE Lab Routine Type 2 diabetes mellitus with stage 3b chronic kidney disease, with long-term current use of insulin (HCC) 08/08/2021 11:25 AM EDT Scheduled Orders Name Type Priority Associated Diagnoses Orde r Schedule ALBUMIN / CREATININE RATIO, URINE Lab Routine Type 2 diabetes mellitus with stage 3b chronic kidney disease, with long-term current use of insulin (HCC) Expected: 08/08/2021, Expires: 08/08/2022 Health Maintenance Due Date Last Done Comments [...] Additional history exists CKD PHOS USE SMARTSET 36328 09/15/2021 04/3 , 04/18/2020, 04/27/2019, Additional history exists Depression Screening, Annual for Pts 12 and Over 10/26/2021 10/26/2020 DIABETES-HGBA1C EVERY 6 MONTHS 01/09/2022 07/12/2021, 04/27/2021, 12/15/2020, Additional history exists CKD HGB USE SMARTSET 60421 01/26/202201/26, 01/26/2021, 09/15/2020, Additional history exists CKD GFR USE SMARTSET 87348 02/08/202208/08, 07/12/2021, 02/07/2021, Additional history exists Yearly B-12 04/27/2022 04/27/2021, [...] Associated Diagnosis Comments BASIC METABOLIC PANEL Routine 08/08/2021 11:25 AM EDT Hypertensive kidney disease with stage 3b chronic kidney disease documented in this encounter Results * (ABNORMAL) BASIC METABOLIC PANEL (08/08/2021 11:25 AM EDT) BUN 30(H) 6 - 20 mg/dL [facility] Creatinine 1.4(H) 0.6 - 1.2 mg/dL [facility] Estimated Glomerular Filtration Rate 48(L)Comment:eGFR is calculated based on the CKD-EPI 2020 equation >=60 mL/min [facility]10 Sodium 135 135 - 146 mmol/L [facility] Potassium 5.2(H) 3.5 - 5.1 mmol/L [facility] Chloride 97(L) 98 - 107 mmol/L [facility] CO2 26 22 - 32 mmol/L [facility] Anion Gap 12 7 - 15 mmol/L [facility] Glucose 166(H) 70 - 120 mg/dL [facility] Calcium 10.5(H) 8.4 - 10.2 mg/dL [facility] Specimen Blood - Venous blood specime n (specimen) [facility] [address] [place] [address] documented in this encounter Visit Diagnoses Diagnosis Type 2 diabetes mellitus with stage 3b chronic kidney disease, with long-term current use of insulin (HCC)- Primary DM type 2 nursing care encounter ([facility]) Type II or unspecified type diabetes mellitus without mention of complication, not stated as uncontrolled Hypertensive kidney disease with stage 3b chronic kidney disease HTN, goal below 140/90 Unspecified essential hypertension Stable angina (HCC) Other and unspecified angina pectoris S/P angioplasty with stent Postsurgical percutaneous transluminal coronary angioplasty status Risk and functional assessment Screening for unspecified condition documented in this encounter Advance Directives Documents on File Type Date Recorded Patient Window And Siding Craftsman Expl anation Advanced Directive Advanced Directive Advanced [...] the patient have Health Care Power of Lithographer Helper? Yes, not currently available Full Code 09/15/2009 [...] Advance Directives occurred with: Patient Care Teams Tannery Gummer Relationship Specialty Start Date End Date Carola Arrington MD [address] [place] [address] PCP - General Internal Medicine 12/19/20 documented as of this encounter"
--- OUTSIDE RECORDS SUMMARY | 2023-02-21 02:40 | External Medical Summary | Summary of Care ---
Author Name Unknown Organization [place] [address] Care Team Providers Care Employment Director Name Role Phone Carola Arrington MD Primary Care Provider Reason for Visit * Reason Comments Follow Up Encounter Details Date Type Department Care Team Description 10/18/2021 Office Visit Cardiology, [facility] [address] [facility] [place] [address] Azael Lozano MD [address] [facility] [place] [address] Chronic coronary artery disease*; Dyslipidemia, goal LDL [...] Oral Tablet Extended Release 24 Hour (toPROL XL)Indications:Dairy Technologist shanique coronary artery disease,Aortocorona ry bypass status,HTN, [...] with wider margins) Staging: Stage 0 - [id number] - Melanoma in situ Type 2 diabetes [...] Markers for Patients with Cardiovascular Disease Project #[id number] PI: Francoise Tomlin MD Please call [phone] with study related questions INTERFACED RESULT 11/17/2008 10/17/2011 GENOMICS CARDIO RESEARCH OTHER*[id number] 200806/25/2016 Overview: Renamed Per Clinical Trials Billing Project. Study Titile: Genomic Markers for Patients with Cardiovascular Disease Project #[id number] PI: Francoise Tomlin MD Please call [phone] with study related questions CLASS I-II ANGINA [...] Comments:quit 30 yrs ago, wh ile in [place] for 4 years Alcohol Use Standard Drinks/Week [...] Weight 68.4 kg (150 lb 11.2 oz) 10/18/2021 7:53 AM EDT Height - - Body Mass Index 21.02 01/26/2021 8:54 AM EDT documented in this encounter Progress Notes * Azael Lozano MD - 10/18/2021 8:00 AM EDT October 18, 2021 Cardiology Follow Up Referring Provider: PCP: [place] [address] [phone] Chief Complaint: Routine followup coronary artery disease [...] colon polyps Z86.010 Stable angina ([facility]) I20.8 Hypertensive kidney disease with stage [...] in the interim Azael Lozano MD [facility], [facility] [address] [place] [address] Copy to be forwarded to [email or web address] [facility] [place] [address] documented in this encounter Nursing Notes * Emma Beauchamp LPN - 10/18/2021 7:52 AM EDT Examination [...] Care Team Description 12/04/2021 Office Visit [facility] [address] [address] 02/08/2022 Office Visit Family Medicine Carola Arrington MD [address] [place] [address] 08/08/2022 Office Visit Dermatology Lyssa Gar MD [address] [place] [address] [place] [address] Pending Results Name Type Priority Associated Diagnoses Date /Time BASIC METABOLIC PANEL Lab Routine Chronic coronary artery disease Dyslipidemia, goal LDL below 70 Stable angina (HCC) 10/18/2021 8:33 AM EDT Scheduled Orders Name Type Priority Associated Diagnoses Orde r Schedule EKG EKG Routine Chronic coronary artery disease Ordered: 10/18/2021 Health Maintenance Due Date Last Done Comments COVID-19 Vaccine (#1) 1941 Dexa Scan 1986 Zoster Vaccines (1 of 2) 1986 COLONOSCOPY-EVERY 5 YRS AGES 18-100 03/20/2021 03/20/2016, 04/30/2010, 02/05/2002 DIABETES-EYE EXAM 08/16/2021 08/16/2020, , 04/15/2012, Additional history exists CKD PHOS USE SMARTSET 07891 09/15/2021 04/3 , 04/18/2020, 04/27/2019, Additional history exists Depression Screening, Annual for Pts 12 and Over 10/26/2021 10/26/2020 Influenza Vaccine (FLU shot) (Season Ended) 2022 02/21/2020, 03/02/2019, 03/01/2018, Additional history exists CKD HGB USE SMARTSET 45217 01/26/202201/26, 01/26/2021, 09/15/2020, Additional history exists CKD GFR USE SMARTSET 80826 02/08/202208/08, 07/12/2021, 02/07/2021, Additional history exists DIABETES-HGBA1C [...] Coronary atherosclerosis of unspecified type of vessel, [place] or graft Dyslipidemia, goal LDL below 70 Other and unspecified hyperlipidemia Stable angina (HCC) Other and unspecified angina pectoris documented in this encounter Advance Directives Documents on File Type Date Recorded Patient Security Compliance Specialist Expl anation Advanced Directive Advanced Directive Advanced [...] have Health Care Power of Vice President Payer? Yes, not currently available Full Code 09/15/2009 [...] Advance Directives occurred with: Patient Care Teams Employment Director Relationship Specialty Start Date End Date Carola Arrington MD [address] [place] [address] PCP - General Internal Medicine 12/19/20 documented as of this encounter"
--- OUTSIDE RECORDS SUMMARY | 2023-02-21 02:40 | External Medical Summary | Summary of Care ---
Author Name Unknown Organization [place] [address] Care Team Providers Care Matrix Bath Operator Name Role Phone Carola Arrington MD Primary Care Provider Reason for Visit * Reason Comments Dosage Adjustment In Person (Anticoag Cl inic) Diabetes Follow-Up Encounter Details Date Type Department Care Team Description 10/09/2021 Office Visit Pharmacy, [facility] [address] [place] [address] [facility] [address] [place] [address] Type 2 diabetes mellitus with stage 3b chronic kidney disease, without long-term current use of insulin ([facility])* Allergies No known active allergiesdocumented as of this encounter (statuses as of 10/09/2021) Medications Medication Sig Dispensed Refills Start Date [...] as of this encounter (statuses as of 10/09/2021) Active Problems Problem Noted Date Hx of melanoma of skin 07/19/2021 Overview: Location: L upper back Year: 2016 Depth: MIS Treatment: WLE (positive margins on initial excision, then re-excised again with wider margins) Staging: Stage 0 - [id number] - Melanoma in situ Type 2 diabetes [...] as of this encounter (statuses as of 10/09/2021) Resolved Problems Problem Noted Date Resolved Date [...] Aortic root 4.4 cm 4.29.2009 echo at [facility]. HTN, goal below 130/80 06/14/2009 [...] Markers for Patients with Cardiovascular Disease Project #[id number] PI: Francoise Tomlin MD Please call [phone] with study related questions INTERFACED RESULT 11/17/2008 10/17/2011 GENOMICS CARDIO RESEARCH OTHER*[id number] 200806/25/2016 Overview: Renamed Per Clinical Trials Billing Project. Study Titile: Genomic Markers for Patients with Cardiovascular Disease Project #[id number] PI: Francoise Tomlin MD Please call [phone] with study related questions CLASS I-II ANGINA [...] as of this encounter (statuses as of 10/09/2021) Immunizations Name Administration Dates Next Due Pneumococcal [...] Comments:quit 30 yrs ago, wh ile in [place] for 4 years Alcohol Use Standard Drinks/Week [...] as of this encounter Progress Notes * Abbi Boyce, [facility] - 10/09/2021 10:30 AM EDT Medication Therapy Disease Management Clinic - Diabetes Management Progress Note Dirk Garcia, identified by name and date of , is a 86 year old male being seen for diabetes management/education. Patient presents for return diabetic visit. DIABETES: Current diabetic medications: Inc Metformin ER 500 mg- goal= 3 tablets daily Inc Lantus 22 units daily - states still doing 20 units of the Lantus eGFR 51 mL/min 07/12/21 Lifestyle: Diet: unchanged Medication Barriers: Cost, even with discount card Glucose Review/SMBG: Not available, patient does not test Hypoglycemia: Does your blood sugar go below 70 mg/dL? Unknown Hyperglycemia symptoms present: none Recent Labs Units 08/08/21 1125 07/12/21 1044 04/27/21 1026 HEMOGLOBIN A1C - [facility] % 10.9* 11.5* 11.3* Recent Labs Units 08/08/21 1125 07/12/21 1044 02/07/21 0657 ESTIMATED GLOMERULAR FILTRATION RATE - [facility] mL/min 48* 51* 38.4* CREATININE - [facility] mg/dL 1.4* 1.4* 1.6* HYPERTENSION: Patient on ACEi/ARB: yes BP Readings from Last 3 Encounters: 08/08/21 128/66 02/15/21 150/78 01/26/21 144/70 Blood pressure at goal: yes HYPERLIPIDEMIA: Patient is taking moderate or high intensity statin: yes HEALTH MAINTENANCE REVIEW: Health Maintenance Due Topic Date Due COVID-19 Vaccine (1) Never done Dexa Scan Never done Zoster Vaccines (1 of 2) Never done COLONOSCOPY-EVERY 5 YRS AGES 18-100 03/20/2021 DIABETES-EYE EXAM 08/16/2021 CKD PHOS USE SMARTSET 69488 09/15/2021 Depression Screening, Annual for Pts 12 and Over 10/26/2021 ASSESSMENT & PLAN: ICD-10-CM 1. Type 2 diabetes mellitus with stage 3b chronic kidney disease, without long- term current use of insulin ([facility]) E11.22 N18.32 BG Readings Blood sugars uncontrolled. Last A1c 10.9 and patient does not test BG. Patient willget A1c prior to next appointment so that we have a better understanding of his BG. Medications Reviewed current regimen, patient is not adherent to regimen. Patient did not increase the insulin. Will have patient increase to 22 units today. Will continue to watch patient's eGFRwith the metformin - BMP ordered for November when patient goes for A1c. Options limited as patient states he cannot afford medications even with discount card. Next visit consider asking about PAP. Patient not interested today. Diet, Exercise, Lifestyle No significant lifestyle changes since last visit. Discussed with patient continuing to limit carbs and add protein to meals. Patient is agreeable to SMBG 0 time(s) daily. Patient aware to contact clinic if any hypoglycemia before next visit. MEDICATION CHANGES: no change from what patient was supposed to be taking Diabetic Medications: Metformin ER 500 mg- 3 tablets daily Inc Lantus 22 units daily eGFR 48 mL/min 08/08/21 HEALTH MAINTENANCE INTERVENTIONS: Labs: Up to Date Immunizations: not discussed Foot Exam: Up to Date Eye Exam: due Annual Wellness Visit: Up to Date FOLLOW UP: Return to clinic in 8 weeks Visit date not found Abbi Boyce PharmD, [facility] Clinical Pharmacist - [employer]ocational [employer] Teacher Resident Medication Therapy Disease Management P: [phone] 10/09/21 10:27 AM documented in this encounter Plan of Treatment Upcoming Encounters Date Type Specialty Care Team Description 10/18/2021 Office Visit Cardiology Azael Lozano MD [address] [place] [address] 12/04/2021 Office Visit Pharmacy [facility] [address] [place] [address] 02/08/2022 Office Visit Family Medicine Carola Arrington MD [address] [place] [address] 08/08/2022 Office Visit Dermatology Lyssa Gar MD [address] [place] [address], [place] [address] Scheduled Orders Name Type Priority Associated Diagnoses Orde r Schedule BASIC METABOLIC PANEL Lab Routine Type 2 diabetes mellitus with stage 3b chronic kidney disease, without long-term current use of insulin (HCC) Expected: 11/22/2021, Expires: 10/09/2022 HEMOGLOBIN A1C Lab Routine Type 2 diabetes mellitus with stage 3b chronic kidney disease, without long-term current use of insulin (HCC) Expected: 11/22/2021, Expires: 10/09/2022 Health Maintenance Due Date Last Done Comments COVID-19 Vaccine (1) 1941 Dexa Scan 1986 Zoster Vaccines (1 of 2) 1986 COLONOSCOPY-EVERY 5 YRS AGES 18-100 03/20/2021 03/20/2016, 04/30/2010, 02/05/2002 DIABETES-EYE EXAM 08/16/2021 08/16/2020, , 04/15/2012, Additional history exists CKD PHOS USE SMARTSET 02353 09/15/2021 04/3 , 04/18/2020, 04/27/2019, Additional history exists Depression Screening, Annual for Pts 12 and Over 10/26/2021 10/26/2020 Influenza Vaccine (FLU shot) (Season Ended) 2022 02/21/2020, 03/02/2019, 03/01/2018, Additional history exists CKD HGB USE SMARTSET 06392 01/26/202201/26, 01/26/2021, 09/15/2020, Additional history exists CKD GFR USE SMARTSET 49818 02/08/202208/08, 07/12/2021, 02/07/2021, Additional history exists DIABETES-HGBA1C [...] Documents on File Type Date Recorded Patient Kicking Machine Operator Expl anation Advanced Directive Advanced [...] the patient have Health Care Power of Screen Printing Machine Operator? Yes, not currently available Full Code [...] Advance Directives occurred with: Patient Care Teams Matrix Bath Operator Relationship Specialty Start Date End Date Carola Arrington MD [address] [address] PCP - General Internal Medicine 12/19/20 documented as of this encounter
--- OUTSIDE RECORDS SUMMARY | 2023-02-21 02:40 | External Medical Summary ---
Author Name Unknown Address Unknown Organization K[facility] [address] [place] [address] Laboratory Report Ordering Provider Test Date Status LIYA GARRETT 08/08/2021 11:25:38 Final Observation Date Value Abnormality Reference (Units ) Status BUN 08/08/2021 11:25:38 30 Above high normal 6-20 (mg/dL) Final Creatinine 08/08/2021 11:25:38 1.4 Above high normal 0.6-1.2 (mg/dL) Final Glomerular filtration rate/1.73 sq M.predicted [Volume Rate/Area] in Serum, Plasma or Blood by Creatinine-based formula (CKD-EPI) 08/08/2021 11:25:38 48 Below low normal >=60 (mL/min) Final Performing Location [facility] [address] [place] [address]
--- OUTSIDE RECORDS SUMMARY | 2023-02-21 02:40 | External Medical Summary ---
Author Name Unknown Address Unknown Organization [facility] [employer] [address] [place] [address] Laboratory Report Ordering Provider Test Date Status RUSSELL CONTI 10/18/2021 08:33:09 Final Observation Date Value Abnormality Reference (Units ) Status BUN 10/18/2021 08:33:09 34 Above high normal 6-20 (mg/dL) Final Creatinine 10/18/2021 08:33:09 1.5 Above high normal 0.6-1.2 (mg/dL) Final Glomerular filtration rate/1.73 sq M.predicted [Volume Rate/Area] in Serum, Plasma or Blood by Creatinine-based formula (CKD-EPI) 10/18/2021 08:33:09 46 Below low normal >=60 (mL/min) Final Performing Location [facility] [employer] [address] [place] [address]
--- OUTSIDE RECORDS SUMMARY | 2023-02-21 02:41 | External Medical Summary | Summary of Care ---
Author Name Unknown Organization [place] [address] Care Team Providers Care Air Brake Operator Name Role Phone Carola Arrington MD Primary Care Provider Reason for Visit * Reason Comments Outpatient Testing Encounter Details Date Type Department Care Team Description 07/12/2021 Laboratory Laboratory, [facility] [address] [place] [address] [facility] [address] [place] [address] Type 2 diabetes mellitus with stage 3b chronic kidney disease, without long-term current use of insulin (HCC) Allergies No known active allergiesdocumented as of this encounter (statuses as of 07/12/2021) Medications Medication Sig Dispensed Refills Start Date [...] EVERY DAY 180 Tab 3 09/04/2020 Active Losartan Potassium 50 MG Oral Tablet (Cozaar) TAKE 2 TABLETS BY MOUTH EVERY DAY 100 Tab 3 12/20/2020 Active Clopidogrel Bisulfate 75 MG Oral Tablet (pLAVix)Indications:A ortocoronary bypass status,Acute coronary syndrome (HCC),Chronic coronary artery disease,Enlarged aorta (HCC) TAKE 1 TABLET BY MOUTH EVERY DAY 100 Tab 1 02/14/2021 Active metFORMIN HCl 500 MG Oral Tablet (Glucophage) TAKE 1 TABLET BY MOUTH EVERY DAY WITH BREAKFAST 90 Tab 1 03/19/2021 Active amLODIPine Besylate 5 MG Oral Tablet (Norvasc)Indications: HTN, goal below 130/80 TAKE 1 TABLET BY MOUTH EVERY DAY 90 Tablet 3 03/26/2021 Active BD Pen Needle Emperatriz U/F 32G X 4 MM (Insulin Pen Needle)Indications:Ty pe 2 diabetes mellitus with stage 3b chronic kidney disease, without long-term current use of insulin (HCC),DM type 2, goal A1C to be determined ([facility]) Use with insulin pen once daily 100 Each 5 04/27/2021 Active Lantus SoloStar 100 UNIT/ML Subcutaneous Solution Pen-injector (Insulin Glargine)Indications: Type 2 diabetes mellitus with stage 3b chronic kidney disease, without long-term current use of insulin ([facility]),DM type 2, goal A1C to be determined ([facility]) Inject 15 Units under the skin daily. Or as directed 15 Each 3 04/27/2021 Active Isosorbide Mononitrate ER 120 MG Oral Tablet Extended Release 24 Hour Take by mouth 1 Tablet in the morning. 90 Tablet 1 06/28/2021 Active documented as of this encounter (statuses as of 07/12/2021) Active Problems Problem Noted Date Type 2 diabetes mellitus with stage 3b [...] as of this encounter (statuses as of 07/12/2021) Resolved Problems Problem Noted Date Resolved Date [...] Markers for Patients with Cardiovascular Disease Project #[id number] PI: Francoise Tomlin MD Please call [phone] with study related questions INTERFACED RESULT 11/17/2008 10/17/2011 GENOMICS CARDIO RESEARCH OTHER*[id number] 200806/25/2016 Overview: Renamed Per Clinical Trials Billing Project. Study Titile: Genomic Markers for Patients with Cardiovascular Disease Project #[id number] PI: Francoise Tomlin MD Please call [phone] with study related questions CLASS I-II ANGINA PECTORIS, STABLE 04/26/2002 09/15/2009 Mixed dyslipidemia 04/26/2002 05/01/2009 Overview: Per Lipid Taxonomy. BENIGN NEOPLASM LG BOWEL 01/17/2002 019 HTN, goal below 140/90 08/23/1998 0 Overview: Per HTN Taxonomy. DM type 2, not at goal 08/23/1998200 9 Overview: Modified per Diabetes protocol #14. THREE VESSEL ATHEROSCLEROTIC CORONARY DISEASE 09/15/2009 Dyslipidemia, goal LDL below 160 07/13/2013 documented as of this encounter (statuses as of 07/12/2021) Immunizations Name Administration Dates Next Due Pneumococcal [...] Comments:quit 30 yrs ago, wh ile in [place] for 4 years Alcohol Use Standard Drinks/Week [...] Encounters Date Type Specialty Care Team Description 07/16/2021 Pharmacy Pharmacy [facility] [address] [place] [address] 07/19/2021 Office Visit Dermatology Lyssa Gar MD [address] [place] [address] 08/08/2021 Office Visit Family Medicine Carola Arrington MD [address] [address] 10/09/2021 Office Visit Pharmacy [facility] [address] [address] 10/18/2021 Office Visit Cardiology Azael Lozano MD [address] [address] Pending Results Name Type Priority Associated Diagnoses Date /Time HEMOGLOBIN A1C Lab Routine Type 2 diabetes mellitus with stage 3b chronic kidney disease, without long-term current use of insulin ([facility]) 07/12/2021 10:44 AM EST BASIC METABOLIC PANEL Lab Routine Type 2 diabetes mellitus with stage 3b chronic kidney disease, without long-term current use of insulin ([facility]) 07/12/2021 10:44 AM EST Health Maintenance Due Date Last [...] 04/27/2020, 1 06/28/2018, 03/20/2018, Additional history exists CKD GFR USE SMARTSET 54884 08/07/202102/07, 01/26/2021, 09/15/2020, Additional history exists DIABETES-EYE EXAM 08/16/2021 08/16/2020, , 04/15/2012, Additional history exists CKD PHOS USE SMARTSET 03938 09/15/2021 04/3 , 04/18/2020, 04/27/2019, Additional history exists DIABETES-HGBA1C EVERY 6 MONTHS 10/26/2021 04/27/2021, 12/15/2020, 09/15/2020, Additional history exists Depression Screening, Annual for Pts 12 and Over 10/26/2021 10/26/2020 CKD HGB USE SMARTSET 21744 01/26/202201/26, 01/26/2021, 09/15/2020, Additional history exists BASIC METABOLIC PANEL (BMP) FOR HTN YEARLY 02/07/2022 02/07/2021, 01/26/2021, 09/15/2020, Additional history exists Yearly B-12 04/27/2022 04/27/2021, 12/0 05/2019, 04/27/2019, Additional history exists DTaP,Tdap,and Td Vaccines (2 - Td or Tdap) 07/10/2022 07/10/2012 Pneumococcal Vaccine: 65+ Years Completed 01/18/2016, 11/20/2004 [...] Documents on File Type Date Recorded Patient Tie Loader Expl anation Advanced Directive Advanced Directive Advanced [...] the patient have Health Care Power of Blanket Winder Operator? Yes, not currently available Full Code [...] Directives occurred with: Patient Care Teams Air Brake Operator Relationship Specialty Start Date End Date Carola Arrington MD [address] [address] PCP - General Internal Medicine 12/19/20 documented as of this encounter
--- OUTSIDE RECORDS SUMMARY | 2023-02-21 02:41 | External Medical Summary ---
Author Name Unknown Address Unknown Organization K0G:[facility] [employer] [address] [place] [address] Laboratory Report Ordering Provider Test Date Status SUKHDEEP BECKER 07/12/2021 10:44:00 Final Observation Date Value Abnormality Reference (Units ) Status BUN 07/12/2021 10:44:00 28 Above high normal 6-20 (mg/dL) Final Creatinine 07/12/2021 10:44:00 1.4 Above high normal 0.6-1.2 (mg/dL) Final Glomerular filtration rate/1.73 sq M.predicted [Volume Rate/Area] in Serum, Plasma or Blood by Creatinine-based formula (CKD-EPI) 07/12/2021 10:44:00 51 Below low normal >=60 (mL/min) Final Performing Location [facility] [employer] [address] [place] [address]
--- OUTSIDE RECORDS SUMMARY | 2023-02-21 02:41 | External Medical Summary | Summary of Care ---
Author Name Unknown Organization [place] [address] Care Team Providers Care Subject Scientific Research Name Role Phone Gerry Arrington MD Primary Care Provider Reason for Visit * Reason Comments Skin Check Skin check - Hx MM n o current concerns * Evaluate & Treat - Unlimited Visits (Within 30 days (routine)) - Pending Review Specialty Diagnoses / Procedures Referred By Silas alonzo Referred To Contact Dermatology Diagnoses History of melanoma in situ Gerry Arrington MD [address] [place] [address] Referral ID Status Reason Start Date Expiration Date Visits Requested Visits Authorized [id number] Pending Review Specialty Services Required 01/26/2021 1 1 Encounter Details Date Type Department Care Team Description 07/19/[address] [facility] [address] [place] [address] Lyssa Gar MD [address] [place] [address] Skin neoplasm*; Scar conditions and fibrosis of skin; History of malignant melanoma of skin; Seborrheic keratosis Allergies No known active allergiesdocumented [...] be determined ([facility]) Use with insulin pen once [...] be determined ([facility]) Take 3 tablets daily. Take [...] of 07/19/2021) Active Problems Problem Noted Date Type 2 [...] Aortic root 4.4 cm 4.29.2009 echo at [facility]. HTN, goal below 130/80 06/14/2009 2 Overview: Per HTN Taxonomy. Type 2 diabetes mellitus wit h hemoglobin A1c goal of less than 7.0% 03/02/2009 03/27/2011 Overview: Modified per Diabetes protocol #14. ICD-10 update of inactive term EXAMINATION OF PARTICIPANT IN CLINICAL TRIAL-gen omics 11/17/2008 09/01/2009 Overview: Renamed Per Clinical Trials Billing Project. Study Titile: Genomic Markers for Patients with Cardiovascular Disease Project #[id number] PI: Ricardo Yang MD Please call [phone] with study related questions INTERFACED RESULT 11/17/2008 10/17/2011 GENOMICS CARDIO RESEARCH OTHER*[id number] 200806/25/2016 Overview: Renamed Per Clinical Trials Billing Project. Study Titile: Genomic Markers for Patients with Cardiovascular Disease Project #[id number] PI: Ricardo Yang MD Please call [phone] with study related questions CLASS I-II ANGINA [...] Comments:quit 30 yrs ago, wh ile in [employer] for 4 years Alcohol Use Standard Drinks/Week [...] not hesitate in calling our office at [phone] to have it evaluated. documented in this encounter Progress Notes * Vivienne Garcia MD - 07/19/2021 10:53 AM EST Dirk Garcia [id number] Chief Complaint: Chief Complaint Patient presents with Skin Check Skin check - Hx MM no current concerns Dirk Garcia is a 86 year old male with history of malignant melanoma, seen today to be monitored for recurrence at previously treated sites and to be evaluated for the development of new lesions. Melanoma History: Location: upper back Year: 2016 Depth: MIS Treatment: WLE (positive margins on initial excision, then re-excised again with wider margins) Staging: Stage 0 - [id number] - Melanoma in situ New, changing, or [...] coronary artery disease 11/17/2008 Coronary atherosclerosis of [place] coronary artery DM type 2, goal A1c below 7 DM type 2, goal A1C to be determined (HCC) Dyslipidemia, goal LDL below 160 Dyslipidemia, goal LDL below 70 05/01/2009 Per Lipid Taxonomy. Enlarged aorta (HCC) 09/15/2009 Aortic root 4.4 cm 4.29.2010 echo at [facility]. HTN, goal below 130/80 06/14/2009 Per [...] 1 GRAFT performed by MAXIMILIANO CASILLAS at [facility] CABG, ARTERY-VEIN, TWO 11/25/08 CORONARY ARTERY BYPASS GRAFT ARTERIAL AND VENOUS 2 GRAFTS performed by MAXIMILIANO CASILLAS at [facility] CATHETERIZE LEFT HEART THRU SKIN Cardiac Catheterization, Left Heart CATHETERIZE LEFT HEART THRU SKIN 11/17/08 LEFT HEART CATH, PERCUTANEOUS performed by DRAKE MALONE at [facility] CATHETERIZE LEFT HEART THRU SKIN 09/15/09 LEFT HEART CATH, PERCUTANEOUS performed by RICARDO YANG at [facility] COLONOSCOPY, W/BIOPSY jan 2002 adenomatous and hyperplastic polyps, next in jan 2005 CORONARY ANGIOGRAPHY W/LEFT HEART CATH 11/25/2011 CORONARY ANGIOGRAPHY W/LEFT HEART CATH performed by Jermaine Leary DO at [facility] DESTRUCTION PREMALIGNANT LESION 1ST about 2001 facial lesion. ENDO,VIDEO ASSIST HARVEST WALE 11/25/08 ENDOSCOPY VIDEO ASSISTED HARVEST VEIN performed by MAXIMILIANO CASILLAS at [facility] REMOVAL OF APPENDIX age 21 Family History Problem Relation Age of Onset Stroke Mother age 45, Heart Disorder Father old age, age 83 Neurological Disorder Father Alzheimer Social History Tobacco Use Smoking status: Former Smoker Packs/day: 0.50 Years: 5.00 Pack years: 2.50 Types: Cigarettes Quit date: 05/19/1984 Years since quittin.1 Smokeless tobacco: Never Used Tobacco comment: quit 30 yrs ago, while in [place] for 4 years Vaping Use Vaping Use: [...] care. Lesion curetted for cure. Hold for pat hology. Size of lesion: 1cm Size of wound [...] MD 07/19/2021 10:53 AM CC: Ref: GERRY ARRINGTON[[id number]] [address] [place] [address] (office) [phone] (fax) documented in this encounter Nursing Notes * Kristin Byrd LPN - 07/19/2021 10:45 AM EST Chief Complaint Patient presents with Skin Check Skin check - Hx MM no current concerns documented in this encounter Plan of Treatment Upcoming Encounters Date Type Specialty Care Team Description 08/08/2021 Office Visit Family Medicine Gerry Arrington MD [address] [place] [address] 10/09/2021 Office Visit [facility]acy [facility] [address] [address] 10/18/2021 Office Visit Cardiology Azael Lozano MD [address] [address] 08/08/2022 Office Visit Dermatology Lyssa Gar MD [address] [place] [address], [place] [address] Scheduled Orders Name Type Priority Associated Diagnoses [...] Additional history exists CKD PHOS USE SMARTSET 79533 09/15/2021 04/3 , 04/18/2020, 04/27/2019, Additional history exists Depression Screening, Annual for Pts 12 and Over 10/26/2021 10/26/2020 CKD GFR USE SMARTSET 66807 01/09/202207/12, 02/07/2021, 01/26/2021, Additional history exists DIABETES-HGBA1C EVERY 6 MONTHS 01/09/2022 07/12/2021, 04/27/2021, 12/15/2020, Additional history exists CKD HGB USE SMARTSET 49825 01/26/202201/26, 01/26/2021, 09/15/2020, Additional history exists Yearly [...] keratosis documented in this encounter Advance Directives Documents on File Type Date Recorded Patient Rn Liaison Expl anation Advanced Directive Advanced Directive Advanced [...] the patient have Health Care Power of Tool Repair Technician? Yes, not currently available Full Code [...] Advance Directives occurred with: Patient Care Teams Subject Scientific Research Relationship Specialty Start Date End Date Gerry Arrington MD [address] [address] PCP - General Internal Medicine 12/19/20 documented as of this encounter
--- OUTSIDE RECORDS SUMMARY | 2023-02-21 02:41 | External Medical Summary | Summary of Care ---
Author Name Unknown Organization [place] [address] Care Team Providers Care Health And Safety Advisor Name Role Phone Carola Arrington MD Primary Care Provider Reason for Visit * Reason Comments Dosage Adjustment In Person (Anticoag Cl inic) Diabetes Management Encounter Details Date Type Department Care Team Description 07/12/2021 Office Visit Pharmacy, [facility] [address] [place] [address] [facility] [address] [place] [address] Type 2 diabetes mellitus with stage 3b chronic kidney disease, without long-term current use of insulin ([facility])* Allergies No known active allergiesdocumented as of [...] type 2, goal A1C to be determined ([facility]) Use with insulin pen once daily 100 Each 5 04/27/2021 Active Lantus SoloStar 100 UNIT/ML Subcutaneous Solution Pen-injector (Insulin Glargine)Indications: Type 2 diabetes mellitus with stage 3b chronic kidney disease, without long-term current use of insulin ([facility]),DM type 2, goal A1C to be determined ([facility]) Inject 15 Units under the skin daily. [...] Aortic root 4.4 cm 4.29.2009 echo at [facility]. HTN, goal below 130/80 06/14/2009 [...] Markers for Patients with Cardiovascular Disease Project #[id number] PI: Francoise Tomlin MD Please call [phone] with study related questions INTERFACED RESULT 11/17/2008 10/17/2011 GENOMICS CARDIO RESEARCH OTHER*[id number] 200806/25/2016 Overview: Renamed Per Clinical Trials Billing Project. Study Titile: Genomic Markers for Patients with Cardiovascular Disease Project #[id number] PI: Francoise Tomlin MD Please call [phone] with study related questions CLASS I-II ANGINA [...] Comments:quit 30 yrs ago, wh ile in [place] for 4 years Alcohol Use Standard Drinks/Week [...] as of this encounter Progress Notes * Cal Williamson, [facility] - 07/12/2021 9:51 AM EST Medication Therapy Disease Management Clinic - Diabetes Management Progress Note Dirk Garcia, identified by name and date of , is a 86 year old male being seen for diabetes management/education. Patient presents for return diabetic visit. DIABETES: Current diabetic medications: Metformin 500 mg once daily INCREASE: Lantus 20 units daily eGFR 38.4 mL/min 02/07/21 Medication Injection Site: Abdomen Lifestyle: Diet: unchanged Glucose Review/SMBG: Readings per patient memory/recall: Patient is currently testing 0 times a day Hypoglycemia: Does your blood sugar go below 70 mg/dL? No Hyperglycemia symptoms present: none Recent Labs Units 04/27/21 1026 12/15/20 0938 09/15/20 1032 HEMOGLOBIN A1C - [facility] % 11.3* 11.1* 11.8* Recent Labs Units 02/07/21 0657 01/26/21 1003 09/15/20 1032 ESTIMATED GLOMERULAR FILTRATION RATE - [facility] mL/min 38.4* 47.0* 36.2* CREATININE - [facility] mg/dL 1.6* 1.4* 1.7* HYPERTENSION: Patient on ACEi/ARB: yes BP Readings from Last 3 Encounters: 02/15/21 150/78 01/26/21 144/70 10/26/20 122/64 Blood pressure at goal: yes HYPERLIPIDEMIA: Patient is taking moderate or high intensity statin: yes HEALTH MAINTENANCE REVIEW: Health Maintenance Due Topic Date Due COVID-19 Vaccine (1) Never done Dexa Scan Never done Zoster Vaccines (1 of 2) Never done DIABETES-URINE ALBUMIN/CREATININE EVERY 12 MONTHS 10/24/2017 Influenza Vaccine (FLU shot) (1) 01/17/2021 COLONOSCOPY-EVERY 5 YRS AGES 18-100 03/20/2021 DIABETES-FOOT EXAM 04/27/2021 CKD GFR USE SMARTSET 84777 08/07/2021 ASSESSMENT & PLAN: ICD-10-CM 1. Type 2 diabetes mellitus with stage 3b chronic kidney disease, without long- term current use of insulin ([facility]) E11.22 N18.32 BG Readings Patient to have a1c drawn today at the lab. Medications Reviewed current regimen, patient is adherent to regimen. Will call patient with a1c result next week and give instructions on whether to increase lantus or not. Diet, Exercise, Lifestyle No significant lifestyle changes since last visit. Patient is agreeable to SMBG 0 time(s) daily. (Requested patient test BG at least once a day, patient declines at this time) Patient aware to contact clinic if any hypoglycemia before next visit. MEDICATION CHANGES: no change (will await updated a1c) Diabetic Medications: Metformin 500 mg once daily Lantus 20 units daily eGFR 38.4 mL/min 02/07/21 HEALTH MAINTENANCE INTERVENTIONS: Labs: Ordered & Scheduled: HgA1c and BMP/CMP Immunizations: Delines Foot Exam: Complete with next PCP visit on 08/08/21 Eye Exam: Up to Date Annual Wellness Visit: Patient Declines FOLLOW UP: Return to clinic in 12 weeks (next a1c will likely be due) 10/09/2021 Cla Williamson [facility] Clinical Pharmacist - Service Desk Associate Medication Therapy Management Clinic 07/12/2021, 9:51 AM documented in this encounter Plan of Treatment Upcoming Encounters Date Type Specialty Care Team Description 07/16/2021 Pharmacy Pharmacy [facility] [address] [facility] [place] [address] 07/19/2021 Office Visit Dermatology Lyssa Gar MD [address] [place] [address] 08/08/2021 Office Visit Family Medicine Carola Arrington MD [address] [place] [address] 10/09/2021 Office Visit Pharmacy [facility] [place] [address] 10/18/2021 Office Visit Cardiology Azael Lozano MD [address] [facility] [place] [address] Scheduled Orders Name Type Priority Associated Diagnoses Orde r Schedule HEMOGLOBIN A1C Lab Routine Type 2 diabetes mellitus with stage 3b chronic kidney disease, without long-term current use of insulin (HCC) Expected: 07/12/2021 (Approximate), Expires: 07/12/2022 BASIC METABOLIC PANEL Lab Routine Type 2 diabetes mellitus with stage 3b chronic kidney disease, without long-term current use of insulin (HCC) Expected: 07/12/2021 (Approximate), Expires: 07/12/2022 Health Maintenance Due Date Last Done Comments [...] Additional history exists CKD GFR USE SMARTSET 19214 08/07/202102/07, 01/26/2021, 09/15/2020, Additional history exists DIABETES-EYE EXAM 08/16/2021 08/16/2020, , 04/15/2012, Additional history exists CKD PHOS USE SMARTSET 09940 09/15/2021 04/3 , 04/18/2020, 04/27/2019, Additional history exists DIABETES-HGBA1C EVERY 6 MONTHS 10/26/2021 04/27/2021, 12/15/2020, 09/15/2020, Additional history exists Depression Screening, Annual for Pts 12 and Over 10/26/2021 10/26/2020 CKD HGB USE SMARTSET 34111 01/26/202201/26, 01/26/2021, 09/15/2020, Additional history exists BASIC [...] Documents on File Type Date Recorded Patient Pi/Senior Research Associate Expl anation Advanced Directive Advanced Directive Advanced [...] the patient have Health Care Power of Steam And Power Supervisor? Yes, not currently available Full Code 09/15/2009 [...] Advance Directives occurred with: Patient Care Teams Health And Safety Advisor Relationship Specialty Start Date End Date Carola Arrington MD [address] [place] [address] PCP - General Internal Medicine 12/19/20 documented as of this encounter
--- OUTSIDE RECORDS SUMMARY | 2023-02-21 02:41 | External Medical Summary | Summary of Care ---
Author Name Unknown Organization [place] [address] Care Team Providers Care Trim Operator Name Role Phone Carola Arrington MD Primary Care Provider Reason for Visit * Reason Comments eRx-Medication Refill Encounter Details Date Type Department Care Team Description 07/16/2021 Refill Cardiology, [facility] [address] [facility] [employer] [place] [address] Thomas Cullen, [address] [facility] [place] [address] Allergies No known active allergiesdocumented as of this encounter (statuses as of 07/17/2021) Medications Medication Sig Dispensed Refills Start Date [...] as directed. 15 Each 3 07/16/2021 Active Losartan Potassium 50 MG Oral Tablet (Cozaar) TAKE 2 TABLETS BY MOUTH EVERY DAY 100 Tab 3 12/20/2020 2 Discontinued documented as of this encounter (statuses as of 07/17/2021) Active Problems Problem Noted Date Type 2 [...] as of this encounter (statuses as of 07/17/2021) Resolved Problems Problem Noted Date Resolved Date [...] root 4.4 cm 4.29.2009 echo at [facility]. HTN, goal below 130/80 06/14/2009 2 Overview: Per HTN Taxonomy. Type 2 diabetes mellitus wit h hemoglobin A1c goal of less than 7.0% 03/02/2009 03/27/2011 Overview: Modified per Diabetes protocol #14. ICD-10 update of inactive term EXAMINATION OF PARTICIPANT IN CLINICAL TRIAL-gen omics 11/17/2008 09/01/2009 Overview: Renamed Per Clinical Trials Billing Project. Study Titile: Genomic Markers for Patients with Cardiovascular Disease Project #[id number] PI: Francoise Tomlin MD Please call [phone] with study related questions INTERFACED RESULT 11/17/2008 10/17/2011 GENOMICS CARDIO RESEARCH OTHER*[id number] 200806/25/2016 Overview: Renamed Per Clinical Trials Billing Project. Study Titile: Genomic Markers for Patients with Cardiovascular Disease Project #[id number] PI: Francoise Tomlin MD Please call [phone] with study related questions CLASS I-II ANGINA [...] as of this encounter (statuses as of 07/17/2021) Immunizations Name Administration Dates Next Due Pneumococcal [...] Comments:quit 30 yrs ago, wh ile in [place] for 4 years Alcohol Use Standard Drinks/Week [...] encounter Miscellaneous Notes * Telephone Encounter - Silvia Beaulieu RN - 07/17/2021 9:03 AM EST Pending Prescriptions: Disp Refills Losartan Potassium 50 MG Oral Tablet (Coz*180 Ta*3 Sig: TAKE 2 TABLETS BY MOUTH EVERY DAY * Telephone Encounter - Silvia Beaulieu RN - 07/17/2021 9:03 AM EST Pending Prescriptions: Disp Refills Losartan Potassium 50 MG Oral Tablet (Coz*100 Ta*3 Sig: TAKE 2 TABLETS BY MOUTH EVERY DAY Last Visit: 02/15/2021 (in office), 09/17/2019 (telemedicine) Next Visit: 10/18/2021 If no future appointments scheduled, and last appointment is greater than a year ago, please schedule patient for a follow-up appointment Last date the medication was ordered: Pharmacy: [id number] [address] [place] Is this request for a controlled substance?No Urine Drug Screen:No results found for this or any previous visit. Patient Phone Numbers Labs: Lab Results Component Value Date/Time CREAT 1.4 (H) 07/12/2021 10:44 AM CREAT 1.9 (H) 04/18/2020 08:29 AM POTASSIUM 5.2 (H) 07/12/2021 10:44 AM POTASSIUM 5.0 04/18/2020 08:29 AM TSH 2.56 06/21/2020 03:37 PM TSH 2.81 01/01/2017 01:44 PM LDLCALC 30 10/27/2019 09:03 AM LDLDIRECT 52 09/15/2020 10:32 AM LDLDIRECT NOT APPLICABLE 10/27/2019 09:03 AM LDLDIRECT 50 10/24/2016 11:50 AM ALT 26 01/26/2021 10:03 AM ALT 23 04/18/2020 08:29 AM HGBA1C 11.5 (H) 07/12/2021 10:44 AM HGBA1C 9.7 (H) 04/18/2020 08:29 AM documented in this encounter Plan of Treatment Upcoming Encounters Date Type Specialty Care Team Description 07/19/2021 Office Visit Dermatology Lyssa Gar MD [address] [place] [address], [place] [address] 08/08/2021 Office Visit Family Medicine Carola Arrington MD [address] [place] [address] 10/09/2021 Office Visit Pharmacy [facility] [address] [place] [address] 10/18/2021 Office Visit Cardiology Azael Lozano MD [address] [place] [address] Health Maintenance Due Date Last Done Comments [...] Additional history exists CKD PHOS USE SMARTSET 58815 09/15/2021 04/3 , 04/18/2020, 04/27/2019, Additional history exists Depression Screening, Annual for Pts 12 and Over 10/26/2021 10/26/2020 CKD GFR USE SMARTSET 49213 01/09/202207/12, 02/07/2021, 01/26/2021, Additional history exists DIABETES-HGBA1C EVERY 6 MONTHS 01/09/2022 07/12/2021, 04/27/2021, 12/15/2020, Additional history exists CKD HGB USE SMARTSET 92801 01/26/202201/26, 01/26/2021, 09/15/2020, Additional history exists Yearly [...] Documents on File Type Date Recorded Patient Gear Straightener Expl anation Advanced Directive Advanced Directive Advanced [...] the patient have Health Care Power of Personal Care Worker? Yes, not currently available Full Code [...] Advance Directives occurred with: Patient Care Teams Trim Operator Relationship Specialty Start Date End Date Carola Arrington MD [facility] [place] [address] PCP - General Internal Medicine 12/19/20 documented as of this encounter
--- OUTSIDE RECORDS SUMMARY | 2023-02-21 02:41 | External Medical Summary | Summary of Care ---
Author Name Unknown Organization [place] [address] Care Team Providers Care Deputy Sheriff Lieutenant Name Role Phone Carola Arrington MD Primary Care Provider Reason for Visit * Reason Comments Diabetes Follow-Up Encounter Details Date Type Department Care Team Description 07/16/2021 Pharmacy Pharmacy, [facility] [address] [place] [address] [facility] [address] [place] [address] DM type 2, goal A1C to be determined ([facility])*; Type 2 diabetes mellitus with stage 3b chronic kidney disease, without long-term current use of insulin ([facility]) Allergies No known active allergiesdocumented as of this encounter (statuses as of 07/16/2021) Medications Medication Sig Dispensed Refills Start Date [...] the morning. 90 Tablet 1 06/28/2021 Active metFORMIN HCl ER 500 MG Oral Tablet Extended Release 24 Hour (Glucophage XR)Indications:DM type 2, goal A1C to be determined (HCC) Take 3 tablets daily. Take with food. 270 Tablet 1 07/16/2021 Active Lantus SoloStar 100 UNIT/ML Subcutaneous Solution Pen-injector (Insulin Glargine)Indicatio ns:DM type 2, goal A1C to be determined ([facility]),Type 2 diabetes mellitus with stage 3b chronic kidney disease, without long-term current use of insulin ([facility]) Inject under the skin 22 Units in the morning. Or as directed. 15 Each 3 07/16/2021 Active metFORMIN HCl 500 MG Oral Tablet (Glucophage) TAKE 1 TABLET BY MOUTH EVERY DAY WITH BREAKFAST 90 Tab 1 03/19/2021 2 Discontinue d(Refill) Lantus SoloStar 100 UNIT/ML Subcutaneous Solution Pen-injector (Insulin Glargine)Indicatio ns:Type 2 diabetes mellitus with stage 3b chronic kidney disease, without long-term current use of insulin (HCC),DM type 2, goal A1C to be determined ([facility]) Inject 15 Units under the skin daily. Or as directed 15 Each 3 04/27/2021 2 Discontinue d(Refill) documented as of this encounter (statuses as of 07/16/2021) Active Problems Problem Noted Date Type 2 [...] as of this encounter (statuses as of 07/16/2021) Resolved Problems Problem Noted Date Resolved Date [...] Aortic root 4.4 cm 4.29.2009 echo at [facility]. HTN, goal below 130/80 06/14/2009 2 Overview: Per HTN Taxonomy. Type 2 diabetes mellitus wit h hemoglobin A1c goal of less than 7.0% 03/02/2009 03/27/2011 Overview: Modified per Diabetes protocol #14. ICD-10 update of inactive term EXAMINATION OF PARTICIPANT IN CLINICAL TRIAL-gen omics 11/17/2008 09/01/2009 Overview: Renamed Per Clinical Trials Billing Project. Study Titile: Genomic Markers for Patients with Cardiovascular Disease Project #[id number] PI: Francoise Tomlin MD Please call [phone] with study related questions INTERFACED RESULT 11/17/2008 10/17/2011 GENOMICS CARDIO RESEARCH OTHER*[id number] 200806/25/2016 Overview: Renamed Per Clinical Trials Billing Project. Study Titile: Genomic Markers for Patients with Cardiovascular Disease Project #[id number] PI: Francoise Tomlin MD Please call [phone] with study related questions CLASS I-II ANGINA [...] as of this encounter (statuses as of 07/16/2021) Immunizations Name Administration Dates Next Due Pneumococcal [...] Comments:quit 30 yrs ago, wh ile in [place] [employer] for 4 years Alcohol Use Standard Drinks/Week [...] as of this encounter Progress Notes * Katarzyna Sawyer [facility] - 07/16/2021 8:20 AM EST MTM DM Lab Follow Up Current DM Medications: Metformin 500 mg once daily Lantus 20 units daily eGFR 38.4 mL/min 02/07/21 Results for DIRK ROJAS ( ) as of 07/16/2021 08:20 Ref. Range 07/12/2021 10:44 Sodium Latest Ref Range: 135 - 146 mmol/L 131 (L) Potassium Latest Ref Range: 3.5 - 5.1 mmol/L 5.2 (H) Chloride Latest Ref Range: 98 - 107 mmol/L 95 (L) CO2 Latest Ref Range: 22 - 32 mmol/L 24 BUN Latest Ref Range: 6 - 20 mg/dL 28 (H) Creatinine Latest Ref Range: 0.6 - 1.2 mg/dL 1.4 (H) Estimated Glomerular Filtration Rate Latest Ref Range: >=60 mL/min 51 (L) Anion Gap Latest Ref Range: 7 - 15 mmol/L 12 Glucose Latest Ref Range: 70 - 120 mg/dL 387 (H) Calcium Latest Ref Range: 8.4 - 10.2 mg/dL 9.6 Estimated Average Glucose Latest Ref Range: <126 mg/dL 283 (H) Hemoglobin A1C Latest Ref Range: 4.0 - 5.6 % 11.5 (H) Patient Phone Numbers Spoke to patient. He is agreeable to medication adjustments as noted below. Metformin slow increase, adding one tablet a week. Diabetic Medication Changes: Inc Metformin ER 500 mg- goal= 3 tablets daily Inc Lantus 22 units daily eGFR 51 mL/min 07/12/21 Follow up at next appointment: 10/09/2021 Katarzyna Sawyer, PharmD Clinical Pharmacist Medication Therapy Disease Management 07/16/2021, 4:13 PM documented in this encounter Plan of Treatment Upcoming Encounters Date Type Specialty Care Team Description 07/19/2021 Office Visit Dermatology Lyssa Gar MD [address] [place] [address], [place] [address] 08/08/2021 Office Visit Family Medicine Carola Arrington MD [address] [place] [address] 10/09/2021 Office Visit Pharmacy [facility] [address] [place] [address] 10/18/2021 Office Visit Cardiology Azael Lozano MD [address] [place] [address] Health Maintenance Due Date Last Done Comments [...] Additional history exists CKD PHOS USE SMARTSET 30318 09/15/2021 04/3 , 04/18/2020, 04/27/2019, Additional history exists Depression Screening, Annual for Pts 12 and Over 10/26/2021 10/26/2020 CKD GFR USE SMARTSET 33357 01/09/202207/12, 02/07/2021, 01/26/2021, Additional history exists DIABETES-HGBA1C EVERY 6 MONTHS 01/09/2022 07/12/2021, 04/27/2021, 12/15/2020, Additional history exists CKD HGB USE SMARTSET 96881 01/26/202201/26, 01/26/2021, 09/15/2020, Additional history exists Yearly [...] type 2, goal A1C to be determined (HCC)- Primary Type II or unspecified type diabetes mellitus without mention of complication, not stated as uncontrolled Type 2 diabetes mellitus with stage 3b chronic kidney disease, without long-term current use of insulin (HCC) documented in this encounter Advance Directives Documents on File Type Date Recorded Patient Thread Cutter Expl anation Advanced Directive Advanced Directive Advanced [...] the patient have Health Care Power of Athletic Turf Worker? Yes, not currently available Full Code [...] Advance Directives occurred with: Patient Care Teams Deputy Sheriff Lieutenant Relationship Specialty Start Date End Date Carola Arrington MD [address] [place] [address] [place] [address] PCP - General Internal Medicine 12/19/20 documented as of this encounter
--- OUTSIDE RECORDS SUMMARY | 2023-02-21 02:41 | External Medical Summary ---
Author Name Unknown Address Unknown Organization K01:LABORAT[facility] - [address] [place] [address] Laboratory Report Ordering Provider Test Date Status SUKHDEEP BECKER 07/12/2021 10:44:00 Final Observation Date Value Abnormality Reference (Units ) Status HbA1C 07/12/2021 10:44:00 11.5 Above high normal 4. 0-5.6 (%) Final Performing Location [facility] - [address] [place] [address]
--- OUTSIDE RECORDS SUMMARY | 2023-02-21 02:42 | External Medical Summary | Summary of Care ---
Author Name Unknown Organization [facility] [address] Care Team Providers Care Chief Nurse Executive Name Role Phone Carola Arrington MD Primary Care Provider Reason for Visit * Reason Onset Date Comments Appointment 06/04/2021 Encounter Details Date Type Department Care Team Description 06/04/2021 Telephone NephMaci dixon [address] [place] [address] Washington Tello MD [address] [place] [address] Appointment Allergies No known active allergiesdocumented as of this encounter (statuses as of 06/04/2021) Medications Medication Sig Dispensed Refills Start Date [...] EVERY DAY 100 Tab 3 12/20/2020 Active Isosorbide Mononitrate ER 120 MG Oral Tablet Extended Release 24 Hour TAKE 1 TABLET BY MOUTH EVERY MORNING 90 Tab 1 12/27/2020 Active Clopidogrel Bisulfate 75 MG Oral Tablet [...] 2, goal A1C to be determined ([facility]) Use with insulin pen once daily 100 Each 5 04/27/2021 Active Lantus SoloStar 100 UNIT/ML Subcutaneous Solution Pen-injector (Insulin Glargine)Indications: Type 2 diabetes mellitus with stage 3b chronic kidney disease, without long-term current use of insulin (HCC),DM type 2, goal A1C to be determined ([facility]) Inject 15 Units under the skin daily. Or as directed 15 Each 3 04/27/2021 Active documented as of this encounter (statuses as of 06/04/2021) Active Problems Problem Noted Date Type 2 [...] as of this encounter (statuses as of 06/04/2021) Resolved Problems Problem Noted Date Resolved Date [...] Aortic root 4.4 cm 4.29.2009 echo at [facility]. HTN, goal below 130/80 06/14/2009 [...] Markers for Patients with Cardiovascular Disease Project #[id number] PI: Francoise Tomlin MD Please call [phone] with study related questions INTERFACED RESULT 11/17/2008 10/17/2011 GENOMICS CARDIO RESEARCH OTHER*[id number] 200806/25/2016 Overview: Renamed Per Clinical Trials Billing Project. Study Titile: Genomic Markers for Patients with Cardiovascular Disease Project #[id number] PI: Francoise Tomlin MD Please call [phone] with study related questions CLASS I-II ANGINA PECTORIS, STABLE 04/26/2002 09/15/2009 Mixed dyslipidemia 04/26/2002 05/01/2009 Overview: Per Lipid Taxonomy. BENIGN NEOPLASM LG BOWEL 01/17/2002 019 HTN, goal below 140/90 08/23/1998 0 Overview: Per HTN Taxonomy. DM type 2, not at goal 08/23/1998 10/200 9 Overview: Modified per Diabetes protocol #14. THREE VESSEL ATHEROSCLEROTIC CORONARY DISEASE 09/15/2009 Dyslipidemia, goal LDL below 160 07/13/2013 documented as of this encounter (statuses as of 06/04/2021) Immunizations Name Administration Dates Next Due Pneumococcal [...] Miscellaneous Notes * Telephone Encounter - NERIS Jackson - 06/04/2021 9:41 AM EST Left message to schedule from recall list on 11/06/20, 11/13/20, and 06/04/21. Letter sent. Recall removed, provider aware. documented in this encounter Plan of Treatment Upcoming Encounters Date Type Specialty Care Team Description 07/12/2021 Office Visit Pharmacy [facility] [address] [facility] [place] [address] 07/19/2021 Office Visit Dermatology Lyssa Gar MD [address] [place] [address] [place] [address] 08/08/2021 Office Visit Family Medicine Carola Arrington MD [address] [place] [address] 10/18/2021 Office Visit Cardiology zAael Lozano MD [address] [place] [address] Health Maintenance Due Date Last Done Comments COVID-19 Vaccine (1) 1940 Dexa Scan 1986 Zoster Vaccines (1 of 2) 1985 Influenza Vaccine (FLU shot) (#1) 2021 02/21/2020, 03/02/2019, 03/01/2018, Additional history exists COLONOSCOPY-EVERY 5 YRS AGES 18-100 03/20/2021 03/20/2016, 04/30/2010, 02/05/2002 DIABETES-FOOT EXAM 04/27/2021 04/27/2020, 1 06/28/2018, 03/20/2018, Additional history exists CKD GFR USE SMARTSET 53459 08/07/202102/07, 01/26/2021, 09/15/2020, Additional history exists DIABETES-EYE EXAM 08/16/2021 08/16/2020, , 04/15/2012, Additional history exists CKD PHOS USE SMARTSET 85708 09/15/2021 04/, 04/18/2020, 04/27/2019, Additional history exists DIABETES-URINE ALBUMIN/CREATININE EVERY 12 MONTHS 09/15/2021 09/15/2020, 10/24/2016, 06/21/2016, Additional history exists DIABETES-HGBA1C EVERY 6 MONTHS 10/26/2021 04/27/2021, 12/15/2020, 09/15/2020, Additional history exists Depression Screening, Annual for Pts 12 and Over 10/26/2021 10/26/2020 CKD HGB USE SMARTSET 37821 01/26/202201/26, 01/26/2021, 09/15/2020, Additional history exists Yearly [...] Documents on File Type Date Recorded Patient Project Scientist Expl anation Advanced Directive Advanced Directive Advanced [...] the patient have Health Care Power of Printed Circuit Board Panels Trimmer? Yes, not currently available Full Code 09/15/2009 [...] Advance Directives occurred with: Patient Care Teams Chief Nurse Executive Relationship Specialty Start Date End Date Carola Arrington MD [address] [place] [address] PCP - General Internal Medicine 12/19/20 documented as of this encounter
--- OUTSIDE RECORDS SUMMARY | 2023-02-21 02:42 | External Medical Summary | Summary of Care ---
Author Name Unknown Organization [place] [address] Care Team Providers Care Health Outreach Worker Name Role Phone Carola Arrington MD Primary Care Provider Reason for Visit * Reason Comments Outpatient Testing Encounter Details Date Type Department Care Team Description 04/27/2021 Laboratory [facility] [place] [address] [facility] [address] [place] [address] Type 2 diabetes mellitus with stage 3b chronic kidney disease, without long-term current use of insulin ([facility]); DM type 2, goal A1C to be determined ([facility]) Allergies No known active allergiesdocumented as of this encounter (statuses as of 04/27/2021) Medications Medication Sig Dispensed Refills Start Date [...] disease, without long-term current use of insulin ([facility]),DM type 2, goal A1C to be determined ([facility]) Use with insulin pen once daily 100 Each 5 04/27/2021 Active Lantus SoloStar 100 UNIT/ML Subcutaneous Solution Pen-injector (Insulin Glargine)Indications: Type 2 diabetes mellitus with stage 3b chronic kidney disease, without long-term current use of insulin ([facility]),DM type 2, goal A1C to be determined ([facility]) Inject 15 Units under the skin daily. Or as directed 15 Each 3 04/27/2021 Active documented as of this encounter (statuses as of 04/27/2021) Active Problems Problem Noted Date Type 2 diabetes mellitus with stage 3b c hronic kidney disease 09/26/2020 Overview: Per CKD protocol Chronic kidney disease, stage 3b 05/11/2 021 Overview: Per CKD protocol Hypertensive kidney [...] as of this encounter (statuses as of 04/27/2021) Resolved Problems Problem Noted Date Resolved Date [...] root 4.4 cm 4.29.2009 echo at [facility]. HTN, goal below 130/80 06/14/2009 [...] Markers for Patients with Cardiovascular Disease Project #[id number] PI: Francoise Tomlin MD Please call [phone] with study related questions INTERFACED RESULT 11/17/2008 10/17/2011 GENOMICS CARDIO RESEARCH OTHER*[id number] 200806/25/2016 Overview: Renamed Per Clinical Trials Billing Project. Study Titile: Genomic Markers for Patients with Cardiovascular Disease Project #[id number] PI: Francoise Tomlin MD Please call [phone] with study related questions CLASS I-II ANGINA [...] as of this encounter (statuses as of 04/27/2021) Immunizations Name Administration Dates Next Due Pneumococcal [...] Comments:quit 30 yrs ago, wh ile in [employer] for 4 years Alcohol Use Standard Drinks/Week [...] Encounters Date Type Specialty Care Team Description 04/30/2021 Pharmacy Pharmacy [facility] [address] [facility] [place] [address] 06/06/2021 Office Visit Nephrology Washington Tello MD [address] [place] [address] 07/12/2021 Office Visit Pharmacy [facility] [address] [place] [address] 07/19/2021 Office Visit Dermatology Lyssa Gar MD [address] [place] [address] 07/27/2021 Office Visit Family Medicine Carola Arrington MD [address] [place] [address] 10/18/2021 Office Visit Cardiology Azael Lozano MD [address] [place] [address] Pending Results Name Type Priority Associated Diagnoses Date /Time VITAMIN B12 Lab Routine Type 2 diabetes mellitus with stage 3b chronic kidney disease, without long-term current use of insulin ([facility]) DM type 2, goal A1C to be determined ([facility]) 04/27/2021 10:26 AM EST HEMOGLOBIN A1C Lab Routine Type 2 diabetes mellitus with stage 3b chronic kidney disease, without long-term current use of insulin (HCC) DM type 2, goal A1C to be determined ([facility]) 04/27/2021 10:26 AM EST Health Maintenance Due Date Last Done Comments COVID-19 Vaccine (1) 1940 Dexa Scan 1986 Zoster Vaccines (1 of 2) 1985 Influenza Vaccine (FLU shot) (#1) 2021 02/21/2020, 03/02/2019, 03/01/2018, Additional history exists *NEPHROLOGY REFERRAL DUE TO RESISTANT HTN 02/17/2021 COLONOSCOPY-EVERY 5 YRS AGES 18-100 03/20/2021 03/20/2016, 04/30/2010, 02/05/2002 Yearly B-12 04/18/2021 04/18/2020, 04/18, 05/01/2017 DIABETES-FOOT EXAM 04/27/2021 04/27/2020, 1 06/28/2018, 03/20/2018, Additional history exists DIABETES-HGBA1C EVERY 6 MONTHS 06/17/2021 12/15/2020, 09/15/2020, 04/18/2020, Additional history exists CKD GFR USE SMARTSET 46255 08/07/202102/07, 01/26/2021, 09/15/2020, Additional history exists DIABETES-EYE EXAM 08/16/2021 08/16/2020, , 04/15/2012, Additional history exists CKD PHOS USE SMARTSET 61555 09/15/2021 04/3 , 04/18/2020, 04/27/2019, Additional history exists CKD HGB USE SMARTSET 77470 01/26/202201/26, 01/26/2021, 09/15/2020, Additional history exists DTaP,Tdap,and Td Vaccines (2 - Td or Tdap) 07/10/2022 07/10/2012 Pneumococcal Vaccine: 65+ Years Completed 01/18/2016, 11/20/2004 MENINGOCOCCAL (MENACTRA/MENVEO) Aged Out No longer eligible based on patient's age to complete this topic documented as of this encounter Implants Not on filedocumented as of this encounter Visit Diagnoses Diagnosis Type 2 diabetes mellitus with stage 3b chronic kidney disease, without long-term current use of insulin (HCC) DM type 2, goal A1C to be determined ([facility]) Type II or unspecified type diabetes mellitus without mention of complication, not stated as uncontrolled documented in this encounter Advance Directives Documents on File Type Date Recorded Patient Dryer Operator Expl anation Advanced Directive Advanced Directive [...] the patient have Health Care Power of Macaroni Press Operator? Yes, not currently available Full Code [...] Directives occurred with: Patient Care Teams Health Outreach Worker Relationship Specialty Start Date End Date Carola Arrington MD [address] [place] [address] PCP - General Internal Medicine 12/19/20 documented as of this encounter
--- OUTSIDE RECORDS SUMMARY | 2023-02-21 02:42 | External Medical Summary | Summary of Care ---
Author Name Unknown Organization [place] [address] Care Team Providers Care Continuity Writer Name Role Phone Carola Arrington MD Primary Care Provider Reason for Visit * Reason Comments Dosage Adjustment Via Phone (anticoag Cl inic) Diabetes Follow-Up Encounter Details Date Type Department Care Team Description 04/30/2021 Pharmacy Pharmacy, [facility] [address] [place] [address] [facility] [address] [place] [address] Type 2 diabetes mellitus with stage 3b chronic kidney disease, without long-term current use of insulin ([facility])* Allergies No known active allergiesdocumented as of this encounter (statuses as of 04/30/2021) Medications Medication Sig Dispensed Refills Start Date [...] type 2, goal A1C to be determined ([facility]) Use with insulin pen once daily 100 Each 5 04/27/2021 Active Lantus SoloStar 100 UNIT/ML Subcutaneous Solution Pen-injector (Insulin Glargine)Indications: Type 2 diabetes mellitus with stage 3b chronic kidney disease, without long-term current use of insulin (HCC),DM type 2, goal A1C to be determined ([facility]) Inject 15 Units under the skin daily. Or as directed 15 Each 3 04/27/2021 Active documented as of this encounter (statuses as of 04/30/2021) Active Problems Problem Noted Date Type 2 [...] as of this encounter (statuses as of 04/30/2021) Resolved Problems Problem Noted Date Resolved Date [...] Aortic root 4.4 cm 4.29.2009 echo at [facility]. HTN, goal below 130/80 [...] Markers for Patients with Cardiovascular Disease Project #[id number] PI: Francoise Tomlin MD Please call [phone] with study related questions INTERFACED RESULT 11/17/2008 10/17/2011 GENOMICS CARDIO RESEARCH OTHER*[id number] 200806/25/2016 Overview: Renamed Per Clinical Trials Billing Project. Study Titile: Genomic Markers for Patients with Cardiovascular Disease Project #[id number] PI: Francoise Tomlin MD Please call [phone] with study related questions CLASS I-II ANGINA [...] as of this encounter (statuses as of 04/30/2021) Immunizations Name Administration Dates Next Due Pneumococcal [...] Comments:quit 30 yrs ago, wh ile in [employer] for 4 years Alcohol Use Standard Drinks/Week [...] this encounter Progress Notes * Crystal Morgan, [facility] - 04/30/2021 10:35 AM EST Hemoglobin AIC Results: Lab Results Component Value Date/Time HEMOGLOBIN A1C - [facility] 11.3 (H) 04/27/2021 10:26 AM HEMOGLOBIN A1C - [facility] 11.1 (H) 12/15/2020 09:38 AM HEMOGLOBIN A1C - [facility] 11.8 (H) 09/15/2020 10:32 AM HEMOGLOBIN A1C - [facility] 9.7 (H) 04/18/2020 08:29 AM HEMOGLOBIN A1C - [facility] 6.4 (H) 10/27/2019 09:03 AM HEMOGLOBIN A1C - [facility] 6.5 (H) 01/12/2019 02:01 PM Patient Phone Numbers Spoke to patient via phone. Informed of A1c, recommending to increase lantus at this time. Diabetic Medications: Metformin 500 mg once daily INCREASE: Lantus 20 units daily eGFR 36.2 mL/min 09/15/20 Crystal Morgan, Pharm D Clinical Pharmacist 04/30/2021, 10:37 AM documented in this encounter Plan of Treatment Upcoming Encounters Date Type Specialty Care Team Description 06/06/2021 Office Visit Nephrology Washington Tello MD [address] [facility] [address] 07/12/2021 Office Visit Pharmacy [facility] [address] [place] [address] 07/19/2021 Office Visit Dermatology Lyssa Gar MD [address] [facility] [place] [address] 07/27/2021 Office Visit Family Medicine Carola Arrington MD [address] [place] [address] 10/18/2021 Office Visit Cardiology Azael Lozano MD [address] [place] [address] Health Maintenance Due Date Last Done Comments COVID-19 Vaccine (1) 1940 Dexa Scan 1986 Zoster Vaccines (1 of 2) 1985 Influenza Vaccine (FLU shot) (#1) 2021 02/21/2020, 03/02/2019, 03/01/2018, Additional history exists COLONOSCOPY-EVERY 5 YRS AGES 18-100 03/20/2021 03/20/2016, 04/30/2010, 02/05/2002 DIABETES-FOOT EXAM 04/27/2021 04/27/2020, 1 06/28/2018, 03/20/2018, Additional history exists CKD GFR USE SMARTSET 98237 08/07/202102/07, 01/26/2021, 09/15/2020, Additional history exists DIABETES-EYE EXAM 08/16/2021 08/16/2020, , 04/15/2012, Additional history exists CKD PHOS USE SMARTSET 23147 09/15/2021 04/3 , 04/18/2020, 04/27/2019, Additional history exists DIABETES-HGBA1C EVERY 6 MONTHS 10/26/2021 04/27/2021, 12/15/2020, 09/15/2020, Additional history exists CKD HGB USE SMARTSET 22662 01/26/202201/26, 01/26/2021, 09/15/2020, Additional history exists Yearly [...] Documents on File Type Date Recorded Patient Cradle Placer Expl anation Advanced Directive Advanced Directive Advanced [...] the patient have Health Care Power of Telephone Directory Distributor Driver? Yes, not currently available Full Code 09/15/2009 [...] Advance Directives occurred with: Patient Care Teams Continuity Writer Relationship Specialty Start Date End Date Carola Arrington MD [address] [place] [address] [place] [address] PCP - General Internal Medicine 12/19/20 documented as of this encounter
--- OUTSIDE RECORDS SUMMARY | 2023-02-21 02:42 | External Medical Summary ---
Author Name Unknown Address Unknown Organization K01:LABORATORY [facility] [place] - [address] [place] [address] Laboratory Report Ordering Provider Test Date Status CASSIA MILTON 04/27/2021 10:26:29 Final Observation Date Value Abnormality Reference (Units ) Status Vitamin B12 04/27/2021 10:26:29 876 232-1,24 5 (pg/mL) Final Performing Location LABORATORY [facility] [place] - [address] [facility] [address]
--- OUTSIDE RECORDS SUMMARY | 2023-02-21 02:42 | External Medical Summary ---
Author Name Unknown Address Unknown Organization K01:LABORATORY [facility] [place] - [address] [place] [address] Laboratory Report Ordering Provider Test Date Status CASSIA MILTON 04/27/2021 10:26:27 Final Observation Date Value Abnormality Reference (Units ) Status HbA1C 04/27/2021 10:26:27 11.3 Above high normal 4. 0-5.6 (%) Final Performing Location [facility]ORY [facility] [place] - [address] [facility] [address]
--- OUTSIDE RECORDS SUMMARY | 2023-02-21 02:42 | External Medical Summary | Summary of Care ---
Author Name Unknown Organization [place] [address] Care Team Providers Care Websphere Consultant Name Role Phone Gerry Arrington MD Primary Care Provider Reason for Visit * Reason Onset Date Comments Medication Refill 06/28/2021 Encounter Details Date Type Department Care Team Description 06/28/2021 Refill Family Practice [facility] [address] [facility] [place] [address] Gerry Arrington MD [address] [place] [address] Allergies No known active allergiesdocumented as of this encounter (statuses as of 06/28/2021) Medications Medication Sig Dispensed Refills Start Date [...] 2, goal A1C to be determined ([facility]) Inject 15 Units under the skin daily. Or as directed 15 Each 3 04/27/2021 Active Isosorbide Mononitrate ER 120 MG Oral Tablet Extended Release 24 Hour Take by mouth 1 Tablet in the morning. 90 Tablet 1 06/28/2021 Active Isosorbide Mononitrate ER 120 MG Oral Tablet Extended Release 24 Hour TAKE 1 TABLET BY MOUTH EVERY MORNING 90 Tab 1 12/27/2020 06/28/2021 Discontinue d(Refill) documented as of this encounter (statuses as of 06/28/2021) Active Problems Problem Noted Date Type 2 [...] as of this encounter (statuses as of 06/28/2021) Resolved Problems Problem Noted Date Resolved Date [...] Aortic root 4.4 cm 4.29.2009 echo at [facility]. HTN, goal below 130/80 06/14/2009 [...] Markers for Patients with Cardiovascular Disease Project #[id number] PI: Francoise Tomlin MD Please call [phone] with study related questions INTERFACED RESULT 11/17/2008 10/17/2011 GENOMICS CARDIO RESEARCH OTHER*[id number] 200806/25/2016 Overview: Renamed Per Clinical Trials Billing Project. Study Titile: Genomic Markers for Patients with Cardiovascular Disease Project #[id number] PI: Francoise Tomlin MD Please call [phone] with study related questions CLASS I-II ANGINA [...] as of this encounter (statuses as of 06/28/2021) Immunizations Name Administration Dates Next Due Pneumococcal [...] Comments:quit 30 yrs ago, wh ile in [employer] for 4 years Alcohol Use Standard Drinks/Week [...] Telephone Encounter - Gerry Arrington MD - 06/28/2021 11:27 AM EST Signed Prescriptions: Disp Refills Isosorbide Mononitrate ER 120 MG Oral Tabl*90 Tab*1 Sig: Take by mouth 1 Tablet in the morning. Authorizing Provider: GERRY ARRINGTON * Telephone Encounter - REGGIE Recinos - 06/28/2021 10:08 AM EST Pending Prescriptions: Disp Refills Isosorbide Mononitrate ER 120 MG Oral Tab*90 Tab*1 Sig: Take by mouth 1 Tablet in the morning. In the morning.. * Telephone Encounter - NERIS Brower - 06/28/2021 9:38 AM EST Pending Prescriptions: Disp Refills Isosorbide Mononitrate ER 120 MG Oral Tab*90 Tab*1 Sig: Take by mouth 1 Tablet in the morning. In the morning.. Last Visit: 01/26/2021 Next Visit: 08/08/2021 If no future appointments scheduled, and last appointment is greater than a year ago, please schedule patient for a follow-up appointment Last date the medication was ordered: 12/27/20 Pharmacy: [id number] [place] documented in this encounter Plan of Treatment Upcoming Encounters Date Type Specialty Care Team Description 07/12/2021 Office Visit Pharmacy [facility] [address] [place] [address] 07/19/2021 Office Visit Dermatology [facility] [address] 08/08/2021 Office Visit Family Medicine Gerry Arrington MD [address] [place] [address] 10/18/2021 Office Visit Cardiology Azael Lozano MD [address] [place] [address] Health Maintenance Due Date Last Done Comments [...] Additional history exists CKD GFR USE SMARTSET 37957 08/07/202102/07, 01/26/2021, 09/15/2020, Additional history exists DIABETES-EYE EXAM 08/16/2021 08/16/2020, , 04/15/2012, Additional history exists CKD PHOS USE SMARTSET 20351 09/15/2021 04/, 04/18/2020, 04/27/2019, Additional history exists DIABETES-HGBA1C EVERY 6 MONTHS 10/26/2021 04/27/2021, 12/15/2020, 09/15/2020, Additional history exists Depression Screening, Annual for Pts 12 and Over 10/26/2021 10/26/2020 CKD HGB USE SMARTSET 86682 01/26/202201/26, 01/26/2021, 09/15/2020, Additional history exists BASIC [...] Documents on File Type Date Recorded Patient Tool Filer Hand Expl anation Advanced Directive Advanced Directive Advanced [...] the patient have Health Care Power of Citrus Picker? Yes, not currently available Full Code 09/15/2009 [...] Advance Directives occurred with: Patient Care Teams Websphere Consultant Relationship Specialty Start Date End Date Gerry Arrington MD [address] [place] [address] PCP - General Internal Medicine 12/19/20 documented as of this encounter
--- OUTSIDE RECORDS SUMMARY | 2023-02-21 02:42 | External Medical Summary | Summary of Care ---
Author Name Unknown Organization [place] [address] Care Team Providers Care Custom Dressmaker Name Role Phone Carola Arrington MD Primary Care Provider Reason for Visit * Reason Comments Dosage Adjustment In Person (Anticoag Cl inic) Diabetes Follow-Up Encounter Details Date Type Department Care Team Description 04/27/2021 Office Visit Pharmacy, [facility] [address] [place] [address] [facility] [address] [place] [address] Type 2 diabetes mellitus with stage 3b chronic kidney disease, without long-term current use of insulin ([facility])*; DM type 2, goal A1C to be determined ([facility]) Allergies No known active allergiesdocumented [...] to be determined ([facility]) Inject 15 Units under the skin daily. Or as directed 15 Each 3 04/27/2021 Active BD Pen Needle Emperatriz U/F 32G X 4 MM (Insulin Pen Needle)Indications :Type 2 diabetes mellitus with stage 3b chronic kidney disease, without long-term current use of insulin (HCC),DM type 2, goal A1C to be determined (HCC) Use with insulin pen once daily 100 Each 1 11/09/2020 04/27/2021 Discontinue d(Refill) Lantus SoloStar 100 UNIT/ML Subcutaneous Solution Pen-injector (Insulin Glargine)Indicatio ns:Type 2 diabetes mellitus with stage 3b chronic kidney disease, without long-term current use of insulin ([facility]),DM type 2, goal A1C to be determined ([facility]) Inject 15 Units under the skin daily. Or as directed 15 Each 3 12/22/2020 04/27/2021 Discontinue d(Refill) glipiZIDE ER 5 MG Oral Tablet Extended Release 24 Hour (Glucotrol XL) Take 1 Tab by mouth daily. 0 02/06/2021 04/27/2021 Discontinue d(Medicatio n/Dose Changed) documented as of this encounter (statuses as [...] Aortic root 4.4 cm 4.29.2009 echo at [facility]. HTN, goal below 130/80 06/14/2009 2 [...] # PI: Francoise Tomlin MD Please call [phone] with study related questions INTERFACED RESULT 11/17/2008 10/17/2011 GENOMICS CARDIO RESEARCH OTHER*[id number] 200806/25/2016 Overview: Renamed Per Clinical Trials Billing Project. Study Titile: Genomic Markers for Patients with Cardiovascular Disease Project # PI: Francoise Tomlin MD Please call [phone] with study related questions CLASS I-II ANGINA [...] Comments:quit 30 yrs ago, wh ile in [employer] for 4 years Alcohol Use Standard Drinks/Week [...] this encounter Progress Notes * Crystal Morgan, [facility] - 04/27/2021 10:04 AM EST Medication Therapy Disease [facility] - Diabetes Management Progress Note Dirk Garcia, identified by name and date of , is a 85 year old male being seen for diabetes management/education. Patient presents for return diabetic visit. DIABETES: Current diabetic medications: Metformin 500 mg once daily INCREASE: Lantus 15 units daily eGFR 36.2 mL/min 09/15/20 Medication Injection Site: Abdomen Lifestyle: Diet: unchanged Glucose Review/SMBG: Readings per patient memory/recall: Patient is currently testing 0 times a day Hypoglycemia: Does your blood sugar go below 70 mg/dL? No Hyperglycemia symptoms present: none Lab Results Component Value Date/Time HEMOGLOBIN A1C - [facility] 11.1 (H) 12/15/2020 09:38 AM HEMOGLOBIN A1C - [facility] 9.7 (H) 04/18/2020 08:29 AM Lab Results Component Value Date/Time ESTIMATED GLOMERULAR FILTRATION RATE - [facility] 38.4 (L) 02/07/2021 06:57 AM ESTIMATED GLOMERULAR FILTRATION RATE - [facility] 31.1 (L) 04/18/2020 08:29 AM ESTIMATED GLOMERULAR FILTRATION RATE - [facility] >60.0 07/13/2013 12:24 PM Lab Results Component Value Date/Time CREATININE - [facility] 1.6 (H) 02/07/2021 06:57 AM CREATININE - [facility] 1.4 (H) 01/26/2021 10:03 AM CREATININE - [facility] 1.7 (H) 09/15/2020 10:32 AM CREATININE - [facility] 1.9 (H) 04/18/2020 08:29 AM CREATININE - [facility] 1.7 (H) 10/27/2019 09:03 AM CREATININE - [facility] 1.6 (H) 09/20/2019 04:21 PM CREATININE, RANDOM URINE - [facility] 33 09/15/2020 10:34 AM CREATININE, RANDOM URINE - [facility] 185 10/24/2016 11:53 AM CREATININE, RANDOM URINE - [facility] 75 02/20/2015 03:16 PM CREATININE, RANDOM URINE - [facility] 32 07/13/2013 02:33 PM HYPERTENSION: Patient on ACEi/ARB: yes BP Readings from Last 3 Encounters: 02/15/21 150/78 01/26/21 144/70 10/26/20 122/64 Blood pressure at goal: yes HYPERLIPIDEMIA: Patient is taking moderate or high intensity statin: yes HEALTH MAINTENANCE REVIEW: Health Maintenance Due Topic Date Due COVID-19 Vaccine (1) Never done Dexa Scan Never done Zoster Vaccines (1 of 2) Never done Influenza Vaccine (FLU shot) (1) 01/17/2021 *NEPHROLOGY REFERRAL DUE TO RESISTANT HTN Never done COLONOSCOPY-EVERY 5 YRS AGES 18-100 03/20/2021 Yearly B-12 04/18/2021 DIABETES-FOOT EXAM 04/27/2021 ASSESSMENT & PLAN: ICD-10-CM 1. Type 2 diabetes mellitus with stage 3b chronic kidney disease, without long- term current use of insulin ([facility]) E11.22 N18.32 2. DM type 2, goal A1C to be determined ([facility]) E11.9 BG Readings Blood sugars controlled. Patient does not test, will obtain A1c today. Medications Reviewed current regimen, patient is adherent to regimen. Diet, Exercise, Lifestyle No significant lifestyle changes since last visit. Discussed with patient. Patient is agreeable to SMBG 0 time(s) daily. Patient aware to contact clinic if any hypoglycemia before next visit. MEDICATION CHANGES: no change Diabetic Medications: Metformin 500 mg once daily Lantus 15 units daily eGFR 36.2 mL/min 09/15/20 HEALTH MAINTENANCE INTERVENTIONS: Labs: Ordered & Scheduled: HgA1c and Vitamin B12 Immunizations: Up to Date Foot Exam: Up to Date Eye Exam: Up to Date Annual Wellness Visit: N/A FOLLOW UP: Return to clinic in 8 weeks Next Office Visit: 07/12/2021 Scheduled Provider(s): [facility] Stephanie Morgan RPh Clinical Pharmacist - Clinical Program Director Medication Therapy Management [facility] 04/27/2021, 10:04 AM documented in this encounter Plan of Treatment Upcoming Encounters Date Type Specialty Care Team Description 04/30/2021 Pharmacy Pharmacy [facility] [address] [place] [address] 06/06/2021 Office Visit Nephrology Washington Tello MD [address] [facility] [place] [address] 07/12/2021 Office Visit Pharmacy [facility] [address] [place] [address] 07/19/2021 Office Visit Dermatology Lyssa Gar MD [address] [facility] [place] [address] 07/27/2021 Office Visit Family Medicine Carola Arrington MD [address] [place] [address] 10/18/2021 Office Visit Cardiology Azael Lozano MD [address] [place] [address] Pending Results Name Type Priority Associated Diagnoses Date /Time VITAMIN B12 Lab Routine Type 2 diabetes mellitus with stage 3b chronic kidney disease, without long-term current use of insulin (HCC) DM type 2, goal A1C to be determined (HCC) 04/27/2021 10:26 AM EST HEMOGLOBIN A1C Lab Routine Type 2 diabetes mellitus with stage 3b chronic kidney disease, without long-term current use of insulin (HCC) DM type 2, goal A1C to be determined (HCC) 04/27/2021 10:26 AM EST Scheduled Orders Name Type Priority Associated Diagnoses Orde r Schedule VITAMIN B12 Lab Routine Type 2 diabetes mellitus with stage 3b chronic kidney disease, without long-term current use of insulin (HCC) DM type 2, goal A1C to be determined (HCC) Expected: 04/27/2021 (Approximate), Expires: 04/27/2022 HEMOGLOBIN A1C Lab Routine Type 2 diabetes mellitus with stage 3b chronic kidney disease, without long-term current use of insulin (HCC) DM type 2, goal A1C to be determined (HCC) Expected: 04/27/2021 (Approximate), Expires: 04/27/2022 Health Maintenance Due Date Last Done Comments [...] Additional history exists CKD GFR USE SMARTSET 10728 08/07/202102/07, 01/26/2021, 09/15/2020, Additional history exists DIABETES-EYE EXAM 08/16/2021 08/16/2020, , 04/15/2012, Additional history exists CKD PHOS USE SMARTSET 51930 09/15/2021 04/, 04/18/2020, 04/27/2019, Additional history exists CKD HGB USE SMARTSET 77565 01/26/202201/26, 01/26/2021, 09/15/2020, Additional history exists DTaP,Tdap,and [...] use of insulin (HCC)- Primary DM type 2, goal A1C to be determined ([facility]) Type II or unspecified type diabetes mellitus without mention of complication, not stated as uncontrolled documented in this encounter Advance Directives Documents on File Type Date Recorded Patient Lugger Expl anation Advanced Directive Advanced Directive Advanced [...] the patient have Health Care Power of Laminator Printed Circuit Boards? Yes, not currently available Full Code 09/15/2009 [...] Advance Directives occurred with: Patient Care Teams Custom Dressmaker Relationship Specialty Start Date End Date Carola Arrington MD [address] [place] [address] PCP - General Internal Medicine 12/19/20 documented as of this encounter
--- OUTSIDE RECORDS SUMMARY | 2023-02-21 02:42 | External Medical Summary | Summary of Care ---
Author Name Unknown Organization [place] [address] Care Team Providers Care Etl Architect Name Role Phone Carola Arrington MD Primary Care Provider Reason for Visit * Reason Onset Date Comments Appointment 06/29/2021 Encounter Details Date Type Department Care Team Description 06/29/2021 Telephone [facility] [address] [place] [address] Washington Tello MD [address] [place] [address] Appointment Allergies No known active allergiesdocumented as of this encounter (statuses as of 06/29/2021) Medications Medication Sig Dispensed Refills Start Date [...] 2, goal A1C to be determined ([facility]) Use with insulin pen once daily 100 Each 5 04/27/2021 Active Lantus SoloStar 100 UNIT/ML Subcutaneous Solution Pen-injector (Insulin Glargine)Indications: Type 2 diabetes mellitus with stage 3b chronic kidney disease, without long-term current use of insulin (HCC),DM type 2, goal A1C to be determined ([facility]) Inject 15 Units under the skin daily. Or as directed 15 Each 3 04/27/2021 Active Isosorbide Mononitrate ER 120 MG Oral Tablet Extended Release 24 Hour Take by mouth 1 Tablet in the morning. 90 Tablet 1 06/28/2021 Active documented as of this encounter (statuses as of 06/29/2021) Active Problems Problem Noted Date Type 2 [...] as of this encounter (statuses as of 06/29/2021) Resolved Problems Problem Noted Date Resolved Date [...] Aortic root 4.4 cm 4.29.2009 echo at [facility]. HTN, goal below 130/80 [...] Markers for Patients with Cardiovascular Disease Project #[id number] PI: Francoise Tomlin MD Please call [phone] with study related questions INTERFACED RESULT 11/17/2008 10/17/2011 GENOMICS CARDIO RESEARCH OTHER*[id number] 200806/25/2016 Overview: Renamed Per Clinical Trials Billing Project. Study Titile: Genomic Markers for Patients with Cardiovascular Disease Project #[id number] PI: Francoise Tomlin MD Please call [phone] with study related questions CLASS I-II ANGINA [...] as of this encounter (statuses as of 06/29/2021) Immunizations Name Administration Dates Next Due Pneumococcal [...] * Telephone Encounter - NERIS Jackson - 06/29/2021 3:24 PM EST LM to schedule from lost to follow up list. documented in this encounter Plan of Treatment Upcoming Encounters Date Type Specialty Care Team Description 07/12/2021 Office Visit Pharmacy [facility] [address] [place] [address] 07/19/2021 Office Visit Dermatology Lsysa Gar MD [address] [facility] [place] [address] 08/08/2021 Office Visit Family Medicine Carola Arrington MD [address] [place] [address] 10/18/2021 Office Visit Cardiology Azael Lozano MD [address] [place] [address] Health Maintenance Due Date Last Done Comments [...] Additional history exists CKD GFR USE SMARTSET 56306 08/07/202102/07, 01/26/2021, 09/15/2020, Additional history exists DIABETES-EYE EXAM 08/16/2021 08/16/2020, , 04/15/2012, Additional history exists CKD PHOS USE SMARTSET 98684 09/15/2021 04/, 04/18/2020, 04/27/2019, Additional history exists DIABETES-HGBA1C EVERY 6 MONTHS 10/26/2021 04/27/2021, 12/15/2020, 09/15/2020, Additional history exists Depression Screening, Annual for Pts 12 and Over 10/26/2021 10/26/2020 CKD HGB USE SMARTSET 08865 01/26/202201/26, 01/26/2021, 09/15/2020, Additional history exists BASIC [...] Documents on File Type Date Recorded Patient Case Packer Expl anation Advanced Directive Advanced Directive Advanced [...] patient have Health Care Power of Heel Nailing Machine Operator? Yes, not currently available Full [...] Advance Directives occurred with: Patient Care Teams Etl Architect Relationship Specialty Start Date End Date Carola Arrington MD [address] [place] [address] PCP - General Internal Medicine 12/19/20 documented as of this encounter
--- OUTSIDE RECORDS SUMMARY | 2023-02-21 02:43 | External Medical Summary | Summary of Care ---
Author Name Unknown Organization [place] [address] Care Team Providers Care Body Artist Name Role Phone Gerry Arrington MD Primary Care Provider Reason for Visit * Reason Onset Date Comments Medication Refill 03/19/2021 Encounter Details Date Type Department Care Team Description 03/19/2021 Refill Family Practice [facility] [address] [facility] [place] [address] Gerry Arrington MD [address] [facility] [place] [address] [phone] Allergies No Known Active Allergiesdocumented as of this encounter (statuses as of 03/19/2021) Medications Medication Sig Dispensed Refills Start Date [...] Active amLODIPine Besylate 5 MG Oral Tablet (NORVASC)Indicatio ns:HTN, goal below 130/80 TAKE 1 TABLET BY MOUTH EVERY DAY 90 Tab 3 04/03/2020 Active Rosuvastatin Calcium 20 MG Oral Tablet [...] EVERY DAY 180 Tab 3 09/04/2020 Active BD Pen Needle Emperatriz U/F 32G X 4 MM (Insulin Pen Needle)Indications :Type 2 diabetes mellitus with stage 3b chronic kidney disease, without long-term current use of insulin ([facility]),DM type 2, goal A1C to be determined ([facility]) Use with insulin pen once daily 100 Each 1 11/09/2020 Active Losartan Potassium 50 MG Oral Tablet (Cozaar) TAKE 2 TABLETS BY MOUTH EVERY DAY 100 Tab 3 12/20/2020 Active Lantus SoloStar 100 UNIT/ML Subcutaneous Solution Pen-injector (Insulin Glargine)Indicatio ns:Type 2 diabetes mellitus with stage 3b chronic kidney disease, without long-term current use of insulin ([facility]),DM type 2, goal A1C to be determined ([facility]) Inject 15 Units under the skin daily. Or as directed 15 Each 3 12/22/2020 Active Isosorbide Mononitrate ER 120 MG Oral Tablet Extended Release 24 Hour TAKE 1 TABLET BY MOUTH EVERY MORNING 90 Tab 1 12/27/2020 Active Clopidogrel Bisulfate 75 MG Oral Tablet (pLAVix)Indication s:Aortocoronary bypass status,Acute coronary syndrome (HCC),Chronic coronary artery disease,Enlarged aorta (HCC) TAKE 1 TABLET BY MOUTH EVERY DAY 100 Tab 1 02/14/2021 Active glipiZIDE ER 5 MG Oral Tablet Extended Release 24 Hour (Glucotrol XL) Take 1 Tab by mouth daily. 0 02/06/2021 Active metFORMIN HCl 500 MG Oral Tablet (Glucophage) TAKE 1 TABLET BY MOUTH EVERY DAY WITH BREAKFAST 90 Tab 1 03/19/2021 Active metFORMIN HCl 500 MG Oral Tablet (Glucophage) TAKE 1 TABLET BY MOUTH EVERY DAY WITH BREAKFAST 90 Tab 1 09/28/2020 03/19/2021 Discontinued (Refill) documented as of this encounter (statuses as of 03/19/2021) Active Problems Problem Noted Date Type 2 [...] as of this encounter (statuses as of 03/19/2021) Resolved Problems Problem Noted Date Resolved Date [...] Aortic root 4.4 cm 4.29.2009 echo at [facility]. HTN, goal below 130/80 06/14/2009 [...] Markers for Patients with Cardiovascular Disease Project #[id number] PI: Francoise Tomlin MD Please call [phone] with study related questions INTERFACED RESULT 11/17/2008 10/17/2011 GENOMICS CARDIO RESEARCH OTHER*[id number] 200806/25/2016 Overview: Renamed Per Clinical Trials Billing Project. Study Titile: Genomic Markers for Patients with Cardiovascular Disease Project #[id number] PI: Francoise Tomlin MD Please call [phone] with study related questions CLASS I-II ANGINA [...] as of this encounter (statuses as of 03/19/2021) Immunizations Name Administration Dates Next Due Pneumococcal [...] Comments:quit 30 yrs ago, wh ile in [employer] for 4 years Alcohol Use Drinks/Week oz/Week Comments Yes socially Food Insecurity Answer Date Recorded Within the past 12 months, y ou worried that your food would run out before you got money to buy more. Never true Within the past 12 months, t he food you bought just didn't last and you didn't have money to get more. Never true Sex Assigned at Date Recorded Male 10/27/2019 8:32 AM E [employer] Job Start Date Occupation Industry Not on file Not on file Not on file documented as of this encounter Miscellaneous Notes * Telephone Encounter - Gerry Arrington MD - 03/19/2021 10:10 PM EDT Signed Prescriptions: Disp Refills metFORMIN HCl 500 MG Oral Tablet (Glucopha*90 Tab 1 Sig: TAKE 1 TABLET BY MOUTH EVERY DAY WITH BREAKFASTAuthorizing Provider: GERRY ARRINGTON * Telephone Encounter - Lilibeth Gary LPN - 03/19/2021 2:35 PM EDT Pending Prescriptions: Disp Refills metFORMIN HCl 500 MG Oral Tablet (Glucoph*90 Tab 1 Sig: TAKE 1 TABLET BY MOUTH EVERY DAY WITH BREAKFAST * Telephone Encounter - Lilibeth Gary LPN - 03/19/2021 2:34 PM EDT Pending Prescriptions: Disp Refills metFORMIN HCl 500 MG Oral Tablet (Glucoph*90 Tab 1 Last Office/Telemedicine Visit: 01/26/2021 07/27/2021 Last date the medication was ordered: 09/28/20 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 Dyslipidemia, goal LDL below 70 E78.5 S/P angioplasty with stent Z95.820 DM type 2, goal A1C to be determined ([facility]) E11.9 HTN, goal below 140/90 I10 History of colon polyps Z86.010 Stable angina ([facility]) I20.8 Hypertensive kidney disease with stage 3b chronic kidney disease I12.9, N18.32 Type 2 diabetes mellitus with stage 3b chronic kidney disease (HCC) E11.22, N18.32 Chronic kidney disease, stage 3b ([facility]) N18.32 Labs: Lab Results Component Value Date/Time CREATININE - [facility] 1.6 (H) 02/07/2021 06:57 AM CREATININE - [facility] 1.9 (H) 04/18/2020 08:29 AM CREATININE, RANDOM URINE - [facility] 33 09/15/2020 10:34 AM CREATININE, RANDOM URINE - [facility] 185 10/24/2016 11:53 AM Lab Results Component Value Date/Time POTASSIUM - [facility] 4.9 02/07/2021 06:57 AM POTASSIUM - [facility] 5.0 04/18/2020 08:29 [...] - [facility] 6.5 (H) 01/12/2019 02:01 PM * Telephone Encounter - Bianca Ramírez OSA - 03/19/2021 2:29 PM EDT Pending Prescriptions: Disp Refills metFORMIN HCl 500 MG Oral Tablet (Glucoph*90 Tab 1 Last Office/Telemedicine Visit: 01/26/2021 Next Office Visit: 07/27/2021 Scheduled Provider(s): Gerry Arrington MD If no future appointments scheduled, and last appointment is greater than a year ago, please schedule patient for a follow-up appointment Last date the medication was ordered: 09/28/20 [id number] [place] documented in this encounter Plan of Treatment Upcoming Encounters Date Type Specialty Care Team Description 04/24/2021 Office Visit Gastroenterology Lilo Briones CRNP [address] [place] [phone] 04/27/2021 Office Visit [facility] [address] [place] [address] 06/06/2021 Office Visit Nephrology Washington Tello MD [address] [facility] [place] [address] [phone] 07/19/2021 Office Visit Dermatology Lyssa Gar MD [address] [facility] [place] [place] [address] [phone] 07/27/2021 Office Visit Family Medicine Gerry Arrington MD [address] [place] [phone] 10/18/2021 Office Visit Cardiology Azael Lozano MD [address] [place] [address] Health Maintenance Due Date Last Done Comments COVID-19 Vaccine (1) 1947 Dexa Scan 1986 Zoster Vaccines (1 of [...] Additional history exists CKD GFR USE SMARTSET 65483 08/07/202102/07, 01/26/2021, 09/15/2020, Additional history exists DIABETES-EYE EXAM 08/16/2021 08/16/2020, , 04/15/2012, Additional history exists CKD PHOS USE SMARTSET 41616 09/15/2021 04/, 04/18/2020, 04/27/2019, Additional history exists CKD HGB USE SMARTSET 92954 01/26/202201/26, 01/26/2021, 09/15/2020, Additional history exists DTaP,Tdap,and Td Vaccines (2 - Td) 07/10/2022 07/10/2012 Pneumococcal Vaccine: 65+ Years Completed 01/18/2016, 11/20/2004 MENINGOCOCCAL (MENACTRA/MENVEO) Aged Out No longer eligible based on patient's age to complete this topic documented as of this encounter Implants Not on filedocumented as of this encounter Advance Directives Documents on File Type Date Recorded Patient Branch Administrator Expl anation Advanced Directive 11/15/2008 12:00 AM Advanced Directive 11/21/2008 12:00 AM Advanced Directive Advanced Directive 09/16/2009 12:00 AM Advanced Directive 11/24/2011 3:43 PM Advanced Directive Advanced Directive Advanced Directive Advanced [...] Directive Advanced Directive Advanced Directive Advanced Directive Latest Code Status on File Code Status Date Activated Date Inactivated Comments Full Code 11/22/2011 11:38 PM 11/25/2011 9:22 PM This o rder reflects the patients wishes and were consensually agreed upon. Discussion of Advance Directives occurred with: Patient/Family Does the patient have a Living Will? Yes, not cu rrently available Does the patient have Health Care Power of Controls Technician? Yes, not currently available Full Code [...]
--- OUTSIDE RECORDS SUMMARY | 2023-02-21 02:43 | External Medical Summary | Summary of Care ---
Author Name Unknown Organization [place] [address] Care Team Providers Care Scalemaker Name Role Phone Carola Arrington MD Primary Care Provider Reason for Visit * Reason Comments Outpatient Testing Encounter Details Date Type Department Care Team Description 01/26/2021 Laboratory Laboratory, [facility] [address] [facility] [place] [address] [facility] [address] [place] [address] Chronic kidney disease, stage 3b (HCC); Thrombocytopenia ([facility]) Allergies No Known Active Allergiesdocumented as of this encounter (statuses as of 01/26/2021) Medications Medication Sig Dispensed Refills Start Date End Date Status ONE TOUCH ULTRA DEVIIndications:DM type 2, not at goal (HCC) check daily 1 0 12/11/2005 Active ONE TOUCH ULTRA CONTROL SOLNIndications:DM type 2, not at goal (HCC) check daily 1 11 12/11/2005 Active ONE TOUCH ULTRA TEST STRPIndications:DM type 2, not at goal ([facility]) test daily 1 box 11 12/11/2005 Active ONE TOUCH ULTRASOFT LANCETS MISCIndications:DM type 2, not at goal (HCC) test daily 1 box 11 12/11/2005 Active aspirin 81 MG chewable tablet Take 1 Tab by mouth daily. 34 Tab 11 10/28/2017 Active isosorbide dinitrate (ISORDIL) 20 MG Tablet Take 1 Tab by mouth 3 times a day. at 8am, 12 noon and 4pm. 90 Tab 5 01/20/2018 Active nitroglycerin (NITROSTAT) 0.4 MG SUBLIndications:Chron ic coronary artery disease DISSOLVE 1 TABLET UNDER THE TONGUE EVERY 5 MINUTES FOR CHEST PAIN. UP TO 3 DOSES IN 15 MINUTES. 25 Tab 1 11/17/2018 Active amLODIPine Besylate 5 MG Oral Tablet (NORVASC)Indications: HTN, goal below 130/80 TAKE 1 TABLET BY MOUTH EVERY DAY 90 Tab 3 04/03/2020 Active Rosuvastatin Calcium 20 MG Oral Tablet (Crestor)Indications: Dyslipidemia, goal LDL below 70,Dyslipidemia, goal LDL below 160,Mixed dyslipidemia Take 1 Tab by mouth daily. 90 Tab 4 05/30/2020 Active Clopidogrel Bisulfate 75 MG Oral Tablet (pLAVix)Indications:A ortocoronary bypass status,Acute coronary syndrome (HCC),Chronic coronary artery disease,Enlarged aorta (HCC) Take 1 Tab by mouth daily. 100 Tab 1 08/22/2020 Active Ranolazine ER 1000 MG Oral Tablet Extended Release 12 HourIndications:Chest pain,Unstable angina (HCC) TAKE 1 TABLET TWICE A DAY 180 Tab 3 09/04/2020 Active Metoprolol Succinate ER 25 MG Oral Tablet Extended Release 24 Hour (toPROL XL)Indications:Chroni c coronary artery disease,Aortocoronary bypass status,HTN, goal below 140/90 TAKE 2 TABLETS BY MOUTH EVERY DAY 180 Tab 3 09/04/2020 Active metFORMIN HCl 500 MG Oral Tablet (Glucophage) TAKE 1 TABLET BY MOUTH EVERY DAY WITH BREAKFAST 90 Tab 1 09/28/2020 Active BD Pen Needle Emperatriz U/F 32G X 4 MM (Insulin Pen Needle)Indications:Ty pe 2 diabetes mellitus with stage 3b chronic kidney disease, without long-term current use of insulin ([facility]),DM type 2, goal A1C to be determined ([facility]) Use with insulin pen once daily 100 Each 1 11/09/2020 Active Losartan Potassium 50 MG Oral Tablet (Cozaar) TAKE 2 TABLETS BY MOUTH EVERY DAY 100 Tab 3 12/20/2020 Active Lantus SoloStar 100 UNIT/ML Subcutaneous Solution Pen-injector (Insulin Glargine)Indications: Type 2 diabetes mellitus with stage 3b chronic kidney disease, without long-term current use of insulin ([facility]),DM type 2, goal A1C to be determined ([facility]) Inject 15 Units under the skin daily. Or as directed 15 Each 3 12/22/2020 Active Isosorbide Mononitrate ER 120 MG Oral Tablet Extended Release 24 Hour TAKE 1 TABLET BY MOUTH EVERY MORNING 90 Tab 1 12/27/2020 Active documented as of this encounter (statuses as of 01/26/2021) Active Problems Problem Noted Date Type 2 [...] as of this encounter (statuses as of 01/26/2021) Resolved Problems Problem Noted Date Resolved Date [...] Aortic root 4.4 cm 4.29.2009 echo at [facility]. HTN, goal below 130/80 [...] Markers for Patients with Cardiovascular Disease Project #[id number] PI: Francoise Tomlin MD Please call [phone] with study related questions INTERFACED RESULT 11/17/2008 10/17/2011 GENOMICS CARDIO RESEARCH OTHER*[id number] 200806/25/2016 Overview: Renamed Per Clinical Trials Billing Project. Study Titile: Genomic Markers for Patients with Cardiovascular Disease Project #[id number] PI: Francoise Tomlin MD Please call [phone] with study related questions CLASS I-II ANGINA [...] as of this encounter (statuses as of 01/26/2021) Immunizations Name Administration Dates Next Due Pneumococcal [...] Comments:quit 30 yrs ago, wh ile in [employer] for 4 years Alcohol Use Drinks/Week oz/Week [...] Encounters Date Type Specialty Care Team Description 02/02/2021 Office Visit Cardiology Leonila Reaves CRNP [address] [address] [phone] 04/27/2021 Office Visit Pharmacy [facility] [address] [address] 06/06/2021 Office Visit Nephrology Mainali, [place], MD [address] [facility] [place] [address] [phone] 07/19/2021 Office Visit Dermatology Lyssa Gar MD [address] [facility] [place] [address] [phone] 07/27/2021 Office Visit Family Medicine Carola Arrington MD [address] [facility] [address] [address] [phone] Pending Results Name Type Priority Associated Diagnoses Date /Time COMPREHENSIVE METABOLIC PANEL Lab Routine Chronic kidney disease, stage 3b ([facility]) 01/26/2021 10:03 AM EDT CBC WITH WBC DIFFERENTIAL AND ANEMIA REFLEX WORKUP Lab Routine Thrombocytopenia ([facility]) 01/26/2021 10:03 AM EDT ANEMIA CBC Lab Routine Thrombocytopenia ([facility]) 01/26/2021 10:03 AM EDT AUTOMATED ANALYZER WBC DIFFERENTIAL Lab Routine Thrombocytopenia ([facility]) 01/26/2021 10:03 AM EDT ANEMIA REFLEX CHEMISTRY HOLD Lab Routine Thrombocytopenia ([facility]) 01/26/2021 10:03 AM EDT Health Maintenance Due Date Last [...] 06/17/2021 12/15/2020, 09/15/2020, 04/18/2020, Additional history exists DIABETES-EYE EXAM 08/16/2021 08/16/2020, , 04/15/2012, Additional history exists DTaP,Tdap,and Td Vaccines (2 - Td) 07/10/2022 07/10/2012 Pneumococcal Vaccine: 65+ Years Completed 01/18/2016, 11/20/2004 MENINGOCOCCAL (MENACTRA/MENVEO) Aged Out No longer eligible based on patient's age to complete this topic documented as of this encounter Implants Not on filedocumented as of this encounter Visit Diagnoses Diagnosis Chronic kidney disease, stage 3b (HCC) Thrombocytopenia (HCC) Thrombocytopenia, unspecified documented in this encounter Advance Directives Documents on File Type Date Recorded Patient Pc Support Specialist Expl anation Advanced Directive 11/15/2008 12:00 AM [...] the patient have Health Care Power of Orange Grower? Yes, not currently available Full Code 09/15/2009 [...]
--- OUTSIDE RECORDS SUMMARY | 2023-02-21 02:43 | External Medical Summary | Summary of Care ---
Author Name Unknown Organization [place] [address] Care Team Providers Care Fighting Vehicle Systems Maintainer Name Role Phone Carola Arrington MD Primary Care Provider Reason for Referral * Precert (Within 10 days (routine)) Status Reason Specialty Diagnoses / Procedures Referred By Contact Referred To Contact Pending Review Precert Cardiac Studies Diagnoses Nonrheumatic aortic valve stenosis Procedures ECHO, COMPLETE (2D), TRANS-THORACIC Leonila Reaves CRNP [address] [place] [address] Electronically signed by Leonila ARGUELLO at Reason for Visit * Reason Comments Status Check Encounter Details Date Type Department Care Team Description 02/15/2021 Office Visit Cardiology, [facility] [address] [place] [address] Leonila Reaves CRNP [address] [place] [address] [phone] Nonrheumatic aortic valve stenosis*; Coronary artery disease involving wrangell coronary artery of wrangell heart without angina pectoris; HTN, goal below 140/90; Dyslipidemia, goal LDL below 70 Allergies No Known Active Allergiesdocumented as of this encounter (statuses as of 02/15/2021) Medications Medication Sig Dispensed Refills Start Date [...] disease, without long-term current use of insulin ([facility]),DM type 2, goal A1C to be determined ([facility]) Use with insulin pen once daily 100 Each 1 11/09/2020 Active Losartan Potassium 50 MG Oral Tablet (Cozaar) TAKE 2 TABLETS BY MOUTH EVERY DAY 100 Tab 3 12/20/2020 Active Lantus SoloStar 100 UNIT/ML Subcutaneous Solution Pen-injector (Insulin Glargine)Indicatio ns:Type 2 diabetes mellitus with stage 3b chronic kidney disease, without long-term current use of insulin ([facility]),DM type 2, goal A1C to be determined ([facility]) Inject 15 Units under the [...] Tab by mouth daily. 0 02/06/2021 Active ONE TOUCH ULTRA DEVIIndications:DM type 2, not at goal (HCC) check daily 1 0 12/11/2005 02/15/2021 Discontinued (Medication List Clean Up) ONE TOUCH ULTRA CONTROL SOLNIndications:DM type 2, not at goal (HCC) check daily 1 11 12/11/2005 02/15/2021 Discontinued (Medication List Clean Up) ONE TOUCH ULTRA TEST STRPIndications:DM type 2, not at goal (HCC) test daily 1 box 11 12/11/2005 02/15/2021 Discontinued (Medication List Clean Up) ONE TOUCH ULTRASOFT LANCETS MISCIndications:DM type 2, not at goal (HCC) test daily 1 box 11 12/11/2005 02/15/2021 Discontinued (Medication List Clean Up) isosorbide dinitrate (ISORDIL) 20 MG Tablet Take 1 Tab by mouth 3 times a day. at 8am, 12 noon and 4pm. 90 Tab 5 01/20/2018 02/15/2021 Discontinued (Medication List Clean Up) documented as of this encounter (statuses as of 02/15/2021) Active Problems Problem Noted Date Type 2 [...] as of this encounter (statuses as of 02/15/2021) Resolved Problems Problem Noted Date Resolved Date [...] root 4.4 cm 4.29.2009 echo at [facility]. HTN, goal below 130/80 06/14/2009 2 Overview: Per HTN Taxonomy. Type 2 diabetes mellitus wit h hemoglobin A1c goal of less than 7.0% 03/02/2009 03/27/2011 Overview: Modified per Diabetes protocol #14. ICD-10 update of inactive term EXAMINATION OF PARTICIPANT IN CLINICAL TRIAL-gen omics 11/17/2008 09/01/2009 Overview: Renamed Per Clinical Trials Billing Project. Study Titile: Genomic Markers for Patients with Cardiovascular Disease Project #[id number] PI: Riacrdo Yang MD Please call [phone] with study related questions INTERFACED RESULT 11/17/2008 10/17/2011 GENOMICS CARDIO RESEARCH OTHER*[id number] 200806/25/2016 Overview: Renamed Per Clinical Trials Billing Project. Study Titile: Genomic Markers for Patients with Cardiovascular Disease Project #[id number] PI: Ricardo Yang MD Please call [phone] with study related questions CLASS I-II ANGINA [...] as of this encounter (statuses as of 02/15/2021) Immunizations Name Administration Dates Next Due Pneumococcal [...] Comments:quit 30 yrs ago, wh ile in [employer] for 4 years Alcohol Use Drinks/Week oz/Week [...] Sign Reading Time Taken Comments Blood Pressure 150/78 02/15/2021 8:32 AM EDT Pulse 58 02/15/2021 8:32 AM EDT Temperature 36.3 C (97.3 F) 02/15/2021 8:32 AM ED T Respiratory Rate - - Oxygen Saturation 98% 02/15/2021 8:32 AM EDT Inhaled Oxygen Concentration - - Weight 68 kg (150 lb) 02/15/2021 8:32 AM EDT Height - - Body Mass Index 20.92 01/26/2021 8:54 AM EDT documented in this encounter Progress Notes * Leonila Reaves CRNP - 02/15/2021 8:30 AM EDT Cardiology Outpatient Visit 02/15/[address] Lozano Past medical history: 1. CAD, status post CABG 11/2008 for diffuse coronary disease, receiving REYES graft to LAD, saphenous vein graft to left circumflex, saphenous vein graft to the posterior descending artery. 2. Status post PCI with ADIEL to the left circumflex, obtuse marginal, and right coronary artery withpain REYES graft, occluded saphenous vein grafts, 08/2009 3. Status post cardiac catheterization in 2011 without progression of disease, branch vessel marginal disease, and chronic right coronary occlusion 4. 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 Hypertension 6. Hyperlipidemia, LDL goal below 70 7. Mild nonrheumatic calcific aortic valve stenosis 8. Right bundle branch block 9. CKD stage 3 10. Diabetes type 2, hemoglobin A1c 11.1% 11/2020, now on Lantus HPI 85-year-old male presenting to the cardiology office today in routine follow-up. Was last seen by Dr. Lozano approximately 6 months ago. At his last appointment he was feeling well however hydrochlorothiazide was stopped and nephrology was consulted due to ongoing renal insufficiency. Today the patient presents feeling well and offers no acute concerns. Denies any exertional chest pain or shortness of breath. No palpitations, dizziness or syncopal episodes. Patient is steady on his feet. No recent falls. Exercises daily doing about 2 miles on his stationary bike. No orthopnea, PND, or increased lower extremity edema. No fever, chills, cough, hematochezia, melena, or hemoptysis. He states he is compliant with all medications, and offers no side effects. Patient is looking forward to this weekend and traveling up to [place] to see his granddaughter play soccer. Notes that the following weekend he will be going to a softball game also. Of note, patient did not take his morning medications yet today. Notes that he plans on taking themwhen he gets home. Does not regularly monitor his blood pressure at home. Current Outpatient Medications Medication Sig Dispense Refill glipiZIDE ER 5 MG Oral Tablet Extended Release 24 Hour (Glucotrol XL) Take 1 Tab by mouth daily. Clopidogrel Bisulfate 75 MG Oral Tablet (pLAVix) TAKE 1 TABLET BY MOUTH EVERY DAY 100 Tab 1 Isosorbide Mononitrate ER 120 MG Oral Tablet Extended Release 24 Hour TAKE 1 TABLET BY MOUTH EVERY MORNING 90 Tab 1 Lantus SoloStar 100 UNIT/ML Subcutaneous Solution Pen-injector (Insulin Glargine) Inject 15 Units under the skin daily. Or as directed 15 Each 3 Losartan Potassium 50 MG Oral Tablet (Cozaar) TAKE 2 TABLETS BY MOUTH EVERY DAY 100 Tab 3 metFORMIN HCl 500 MG Oral Tablet (Glucophage) TAKE 1 TABLET BY MOUTH EVERY DAY WITH BREAKFAST 90 Tab 1 Metoprolol Succinate ER 25 MG Oral Tablet Extended Release 24 Hour (toPROL XL) TAKE 2 TABLETS BY MOUTH EVERY DAY 180 Tab 3 Ranolazine ER 1000 MG Oral Tablet Extended Release 12 Hour TAKE 1 TABLET TWICE A DAY 180 Tab 3 Rosuvastatin Calcium 20 MG Oral Tablet (Crestor) Take 1 Tab by mouth daily. 90 Tab 4 amLODIPine Besylate 5 MG Oral Tablet (NORVASC) TAKE 1 TABLET BY MOUTH EVERY DAY 90 Tab 3 aspirin 81 MG chewable tablet Take 1 Tab by mouth daily. 34 Tab 11 BD Pen Needle Emperatriz U/F 32G X 4 MM (Insulin Pen Needle) Use with insulin pen once daily 100 Each 1 nitroglycerin (NITROSTAT) 0.4 MG SUBL DISSOLVE 1 TABLET UNDER THE TONGUE EVERY 5 MINUTES FOR CHEST PAIN. UP TO 3 DOSES IN 15 MINUTES. 25 Tab 1 Past Medical History: Diagnosis Date Aortocoronary bypass status 12/06/2008 Benign neoplasm of colon 01/18 Chronic coronary artery disease 11/17/2008 Coronary atherosclerosis of wrangell coronary artery DM type 2, goal A1c below 7 DM type 2, goal A1C to be determined (HCC) Dyslipidemia, goal LDL below 160 Dyslipidemia, goal LDL below 70 05/01/2009 Per Lipid Taxonomy. Enlarged aorta (HCC) 09/15/2009 Aortic root 4.4 cm 4.29.2009 echo at [facility]. HTN, goal below 130/80 06/14/2009 Per HTN Taxonomy. HTN, goal below 140/90 S/P angioplasty with stent drug eluting 09/15/09 Plavix x 12m Past Surgical History: Procedure Laterality Date CABG, ARTERIAL, SINGLE 11/25/08 CORONARY ARTERY BYPASS GRAFT USING ARTERY 1 GRAFT performed by MAXIMILIANO CASILLAS at [facility] CABG, ARTERY-VEIN, TWO 11/25/08 CORONARY ARTERY BYPASS GRAFT ARTERIAL AND VENOUS 2 GRAFTS performed by MAXIMILIANO CASILLAS at [facility] CATHETERIZE LEFT HEART THRU SKIN Cardiac Catheterization, Left Heart CATHETERIZE LEFT HEART THRU SKIN 11/17/08 LEFT HEART CATH, PERCUTANEOUS performed by DRAKE MALONE at [facility] CATHETERIZE LEFT HEART THRU SKIN 09/15/09 LEFT HEART CATH, PERCUTANEOUS performed by RICARDO YANG at [facility] COLONOSCOPY, W/BIOPSY jan 2002 adenomatous and hyperplastic polyps, next in jan 2005 CORONARY ANGIOGRAPHY W/LEFT HEART CATH 11/25/2011 CORONARY ANGIOGRAPHY W/LEFT HEART CATH performed by Jermaine Leary DO at [facility] DESTRUCTION PREMALIGNANT LESION 1ST about 2001 facial lesion. ENDO,VIDEO ASSIST HARVEST WALE 11/25/08 ENDOSCOPY VIDEO ASSISTED HARVEST VEIN performed by MAXIMILIANO CASILLAS at [facility] REMOVAL OF APPENDIX age 21 Social History Tobacco Use Smoking status: Former Smoker Packs/day: 0.50 Years: 5.00 Pack years: 2.50 Types: Cigarettes Quit date: 05/19/1984 Years since quittin.7 Smokeless tobacco: Never Used Tobacco comment: quit 30 yrs ago, while in [employer] for 4 years Substance Use Topics Alcohol use: Yes Comment: socially Drug use: No Comment: up to 2-3 cups of coffee per day Review of patient's allergies indicates: No Known Allergies Review of Systems: See HPI for pertinent positives. All others negative, other than those noted in HPI. Physical Exam BP 150/78 | Pulse 58 | Temp 36.3 C (97.3 F) (Infrared ) | Wt 68 kg (150 lb) | SpO2 98% | BMI 20.92 kg/m | BSA 1.85 m General: No acute distress. A+Ox3. HEENT: Normocephalic. Atraumatic. Conjunctiva and sclera clear. NECK: No carotid bruits. No JVD. Carotid upstrokes are brisk. Heart: RRR. S1 and S2 noted. +2/6 systolic murmur. No rubs, gallops. Lungs: Clear to auscultation. No wheezes, rhonchi, rales. Abdomen: Normal bowel sounds. Soft. Nontender. No masses or organomegaly. No abdominal bruits. Extremities: No edema. No clubbing or cyanosis. Pulses intact. NEURO: No focal deficits. PSYCH: Normal. Lab data/imaging study review: Echocardiogram January 22, 2019: The LV wall thickness is mildly increased (concentric). The basal septum is thickened and angulated consistent with sigmoid septum. The left ventricular wall motion is normal. The qualitative LV ejection fraction is 55-59% (normal). The aortic valve is mildly calcified. Mild aortic valve stenosis is present. Mild tricuspid regurgitation is present. Stress perfusion nuclear imaging January 22, 2019 Abnormal combined low intensity exercise/pharmacologic nuclear stress test. Symptoms suggestive angina occurred during the stress portion the test. The EKG response was equivocal. Perfusion images consistent with inferior wall infarction mild superimposed ischemia. Gated SPECT images reveal mild inferior wall hypokinesis, calculated LV EF equals 60%, which is normal. Study is similar to the prior testing of December 2014 and July 2016 Impression/Plan: 1. Coronary artery disease involving wrangell coronary artery of wrangell heart without angina pectoris History of CABG in 2008 with PCI in 2009. Full history above in problem list. Stable, no exertionalangina. NYHA class 2. 1. Continue Plavix 75 mg daily and aspirin 81 mg daily 2. Continue Ranexa 1000 mg twice daily 3. Continue Imdur 120 mg daily 2. HTN, goal below 140/90 Normally well controlled however elevated today in office due to not taking his medications this morning. Will hold off on making any changes. Should blood pressure start to trend above goal can consider titration of his antihypertensives at that time. 1. Continue metoprolol succinate 50 mg daily- heart rate trending in the mid 50s, asymptomatic. Mayneed to consider reduction in beta-yudi should patient start to feel symptomatic. 2. Continue losartan 100 mg daily 3. Continue Norvasc 5 mg daily 3. Nonrheumatic aortic valve stenosis Mild aortic stenosis noted on echo in 2019. 1. Repeat resting echocardiogram in the near future 4. Dyslipidemia, goal LDL below 70 LDL 52 1. Continue rosuvastatin 20 mg daily The patient agrees to the above plan and will call with additional questions or concerns. ER with all emergencies advised. Follow Up: Return in about 6 months (around 08/15/2021). I spent a total of 40 minutes on the date of service in preparation, delivery, and documentation ofthe care provided to Dirk Garcia excluding any time spent in the performance of separately billed services. JOS Mclain [facility], Department of Cardiology This chart was completed in part utilizing [employer] Speech Voice Recognition Software. Grammatical errors, random word insertions, prounoun errors, and incomplete sentences are an occasional consequence of this system due to software limitations, ambient noise, and hardware issues. Any formal questions or concerns about the content, text, or information contained within the body of this dictation should be directly addressed to the provider for clarification. documented in this encounter Nursing Notes * Tereza Jacobson LPN - 02/15/2021 8:32 AM EDT Patient was identified by name and date of . Name: Dirk Garcia Date of : (1935). Examination Room: 4 Reason for Visit: Chief Complaint Patient presents with Status Check Interim Hospitalization(s): NO Interim Emergency room visit(s): NO Chest Pain: No SOB: No Problems/Concerns: No Medications reviewed and are up to date via: Patient's memory, Pharmacy data Would you like to sign up for [facility]? ALREADY ACTIVE Patient was instructed to not get up on the exam table/exam chair until directed and assisted by their provider; patient is to remain seated in the chair/ wheelchair/ exam table/ exam chair for fall prevention and safety reasons. Patient is aware to have assistance to step down off exam table/exam chair with personnel. Patient voiced full comprehension of instructions. Tereza Jacobson LPN 8:32 AM 02/15/2021 documented in this encounter Plan of Treatment Upcoming Encounters Date Type Specialty Care Team Description 02/26/2021 Cardiac Studies Cardiac Studies Gw, A P Mechanic 1 [address] [address] [phone] 04/27/2021 Office Visit Pharmacy [facility] Stephanie [address] [address] 06/06/2021 Office Visit Nephrology [place] Tello MD [address] [place] [address] [phone] 07/19/2021 Office Visit Dermatology Lyssa Gar MD [address] [place] [address] [phone] 07/27/2021 Office Visit Family Medicine Craola Arrington MD [address] [id number] 10/18/2021 Office Visit Cardiology Azael Lozano MD [address] [address] [phone] Scheduled Orders Name Type Priority Associated Diagnoses Orde r Schedule ECHO, COMPLETE (2D), TRANS-THORACIC Echocardiology Routine Nonrheumatic aortic valve stenosis Expected: 02/15/2021, Expires: 02/14/2022 Health Maintenance Due Date Last Done Comments [...] as of this encounter Visit Diagnoses Diagnosis Nonrheumatic aortic valve stenosis- Primary Aortic valve disorders Coronary artery disease involving wrangell coronary artery of wrangell heart without angina pectoris HTN, goal below 140/90 Unspecified essential hypertension Dyslipidemia, goal LDL below 70 Other and unspecified hyperlipidemia documented in this encounter Advance Directives Documents on File Type Date Recorded Patient Medical Care Manager Expl anation Advanced Directive 11/15/2008 12:00 AM [...] patient have Health Care Power of Grain Farmer? Yes, not currently available Full Code 09/15/2009 [...] upon. Discussion of Advance Directives occurred with: Patient"
--- OUTSIDE RECORDS SUMMARY | 2023-02-21 02:43 | External Medical Summary | Summary of Care ---
Author Name Unknown Organization [place] [address] Care Team Providers Care Bulk Coolers Installer Name Role Phone Carola Arrington MD Primary Care Provider Reason for Visit * Reason Onset Date Comments Colonoscopy 01/26/2021 Encounter Details Date Type Department Care Team Description 01/26/2021 Telephone Family Practice [facility] [address] [facility] [place] [address] Carola Arrington MD 132 [facility] [place] [address] [phone] Colonoscopy Allergies No Known Active Allergiesdocumented as of this encounter (statuses as of 02/07/2021) Medications Medication Sig Dispensed Refills Start Date [...] without long-term current use of insulin ([facility]),DM type 2, goal A1C to be determined ([facility]) Use with insulin pen once daily 100 Each 1 11/09/2020 Active Losartan Potassium 50 MG Oral Tablet (Cozaar) TAKE 2 TABLETS BY MOUTH EVERY DAY 100 Tab 3 12/20/2020 Active Lantus SoloStar 100 UNIT/ML Subcutaneous Solution Pen-injector (Insulin Glargine)Indications: Type 2 diabetes mellitus with stage 3b chronic kidney disease, without long-term current use of insulin ([facility]),DM type 2, goal A1C to be determined ([facility]) Inject 15 Units under the skin daily. Or as directed 15 Each 3 12/22/2020 Active Isosorbide Mononitrate ER 120 MG Oral Tablet Extended Release 24 Hour TAKE 1 TABLET BY MOUTH EVERY MORNING 90 Tab 1 12/27/2020 Active documented as of this encounter (statuses as of 02/07/2021) Active Problems Problem Noted Date Type 2 [...] as of this encounter (statuses as of 02/07/2021) Resolved Problems Problem Noted Date Resolved Date [...] Markers for Patients with Cardiovascular Disease Project #[id number] PI: Francoise Tomlin MD Please call [phone] with study related questions INTERFACED RESULT 11/17/2008 10/17/2011 GENOMICS CARDIO RESEARCH OTHER*[id number] 200806/25/2016 Overview: Renamed Per Clinical Trials Billing Project. Study Titile: Genomic Markers for Patients with Cardiovascular Disease Project #[id number] PI: Francoise Tomlin MD Please call [phone] with study related questions CLASS I-II ANGINA [...] as of this encounter (statuses as of 02/07/2021) Immunizations Name Administration Dates Next Due Pneumococcal [...] Comments:quit 30 yrs ago, wh ile in [employer] for 4 years Alcohol Use Drinks/Week oz/Week [...] encounter Miscellaneous Notes * Telephone Encounter - Yasemin Gross OSA - 02/07/2021 3:03 PM EDT Spoke to spouse, states that pt is going to be out of town for a couple weeks and would like to have a call back in about 1 month. Delaying message for 1 month. * Telephone Encounter - Alvarado Martinez, NERIS - 02/02/2021 12:51 PM EDT Pt is age 85, will need clinic eval prior to procedure being scheduled for screening colonoscopy. LMhome# for pt to return call. * Telephone Encounter - Calista Rodriguez OSA - 01/26/2021 12:57 PM EDT LMHome for patient to call and schedule. * Telephone Encounter - Leonila Hadley, NERIS - 01/26/2021 9:52 AM EDT Colonoscopy referral Pt is diabetic on insulin On blood thinner not sure what one hes on Please call pt to schedule documented in this encounter Plan of Treatment Upcoming Encounters Date Type Specialty Care Team Description 02/15/2021 Office Visit Cardiology Leonila Reaves CRNP [address] [place] [address] [phone] 04/27/2021 Office Visit Pharmacy [facility] Stephanie [address] [place] [address] 06/06/2021 Office Visit Nephrology Washington Tello MD [address] [facility] [place], [place] [address] [phone] 07/19/2021 Office Visit Dermatology Lyssa Gar MD [address] [place] [address] [phone] 07/27/2021 Office Visit Family Medicine Carola Arrington MD [address] [place] [address] [phone] Health Maintenance Due Date Last Done Comments [...] Documents on File Type Date Recorded Patient Nail Making Machine Setter Expl anation Advanced Directive 11/15/2008 12:00 AM [...] the patient have Health Care Power of Power System Operator? Yes, not currently available Full Code [...]
--- OUTSIDE RECORDS SUMMARY | 2023-02-21 02:43 | External Medical Summary | Summary of Care ---
Author Name Unknown Organization [place] [address] Care Team Providers Care Hose Tender Name Role Phone Carola Arrington MD Primary Care Provider Reason for Visit * Reason Onset Date Comments Test Results 02/01/2021 Encounter Details Date Type Department Care Team Description 02/01/2021 Telephone Cardiology, [facility] 132 [place] [address] Leonila Reaves CRNP 132 [place] [address] [phone] Test Results Allergies No Known Active Allergiesdocumented as of this encounter (statuses as of 02/01/2021) Medications Medication Sig Dispensed Refills Start Date [...] current use of insulin ([facility]),DM type 2, goal A1C to be determined ([facility]) Use with insulin pen once daily 100 Each 1 11/09/2020 Active Losartan Potassium 50 MG Oral Tablet (Cozaar) TAKE 2 TABLETS BY MOUTH EVERY DAY 100 Tab 3 12/20/2020 Active Lantus SoloStar 100 UNIT/ML Subcutaneous Solution Pen-injector (Insulin Glargine)Indications: Type 2 diabetes mellitus with stage 3b chronic kidney disease, without long-term current use of insulin ([facility]),DM type 2, goal A1C to be determined ([facility]) Inject 15 Units under the skin daily. Or as directed 15 Each 3 12/22/2020 Active Isosorbide Mononitrate ER 120 MG Oral Tablet Extended Release 24 Hour TAKE 1 TABLET BY MOUTH EVERY MORNING 90 Tab 1 12/27/2020 Active documented as of this encounter (statuses as of 02/01/2021) Active Problems Problem Noted Date Type 2 [...] as of this encounter (statuses as of 02/01/2021) Resolved Problems Problem Noted Date Resolved Date [...] Markers for Patients with Cardiovascular Disease Project #[id number] PI: Francoise Tomlin MD Please call [phone] with study related questions INTERFACED RESULT 11/17/2008 10/17/2011 GENOMICS CARDIO RESEARCH OTHER*[id number] 200806/25/2016 Overview: Renamed Per Clinical Trials Billing Project. Study Titile: Genomic Markers for Patients with Cardiovascular Disease Project #[id number] PI: Francoise Tomlin MD Please call [phone] with study related questions CLASS I-II ANGINA [...] as of this encounter (statuses as of 02/01/2021) Immunizations Name Administration Dates Next Due Pneumococcal [...] Comments:quit 30 yrs ago, wh ile in [employer] for 4 years Alcohol Use Drinks/Week oz/Week [...] Telephone Encounter - Tomás Bright LPN - 02/01/2021 4:32 PM EDT Called patient and left Leonila's message on an identified voicemail to make patient aware with instructions to call back if any questions or concerns. Lab ordered. ----- Message from JOS Castorena sent at 02/01/2021 7:58 AM EDT ----- Regarding: sees you next week Serum creatinine stable. Sodium slightly low (improved though)- please advise the patient to follow a strict 50 oz fluid restriction. Potassium is a little bit high at 5.2. I recommend that he watches dietary potassium intake. Some foods that are HIGH in potassium include broccoli, bananas, oranges, grapefruit, sweet potatoes, and tomatoes, salt substitutes. Please ensure that he is not taking any qmbn-[id number] supplementscontaining potassium, this includes multivitamins. Repeat BMP in 1 week. Thanks, JOS Etienne documented in this encounter Plan of Treatment Upcoming Encounters Date Type Specialty Care Team Description 02/15/2021 Office Visit Cardiology Leonila Reaves CRNP [address] [place] [address] [phone] 04/27/2021 [facility] Visit [facility] [place] [address] 06/06/2021 Office Visit Nephrology Washington Tello MD 200 [facility] [place] [address] [phone] 07/19/2021 Office Visit Dermatology Lyssa Gar MD [address] [facility] [place] [address] [phone] 07/27/2021 Office Visit Family Medicine Carola Arrington MD 132 [facility] [place] [address] [phone] Scheduled Orders Name Type Priority Associated Diagnoses Orde r Schedule BASIC METABOLIC PANEL Lab Routine Hyperkalemia Expected: 02/08/2021 (Approximate), Expires: 02/01/2022 Health Maintenance Due Date Last Done Comments [...] Hyperpotassemia documented in this encounter Advance Directives Documents on File Type Date Recorded Patient Bindery Machine Setter/Set Up Operator Expl anation Advanced Directive 11/15/2008 12:00 AM [...] patient have Health Care Power of Sheet Layer? Yes, not currently available Full Code 09/15/2009 [...]
--- OUTSIDE RECORDS SUMMARY | 2023-02-21 02:43 | External Medical Summary | Summary of Care ---
Author Name Unknown Organization [place] [address] Care Team Providers Care Surgical Sales Representative Name Role Phone Carola Arrington MD Primary Care Provider Reason for Visit * Reason Onset Date Comments Colonoscopy 01/26/2021 Encounter Details Date Type Department Care Team Description 01/26/2021 Telephone Family Practice [facility] [address] [facility] [place] [address] Carola Arrington MD 132 [facility] [place] [address] [phone] Colonoscopy Allergies No Known Active Allergiesdocumented as of this encounter (statuses as of 02/05/2021) Medications Medication Sig Dispensed Refills Start Date [...] ([facility]),DM type 2, goal A1C to be determined ([facility]) Use with insulin pen once daily 100 Each 1 11/09/2020 Active Losartan Potassium 50 MG Oral Tablet (Cozaar) TAKE 2 TABLETS BY MOUTH EVERY DAY 100 Tab 3 12/20/2020 Active Lantus SoloStar 100 UNIT/ML Subcutaneous Solution Pen-injector (Insulin Glargine)Indications: Type 2 diabetes mellitus with stage 3b chronic kidney disease, without long-term current use of insulin ([facility]),DM type 2, goal A1C to be determined ([facility]) Inject 15 Units under the skin daily. Or as directed 15 Each 3 12/22/2020 Active Isosorbide Mononitrate ER 120 MG Oral Tablet Extended Release 24 Hour TAKE 1 TABLET BY MOUTH EVERY MORNING 90 Tab 1 12/27/2020 Active documented as of this encounter (statuses as of 02/05/2021) Active Problems Problem Noted Date Type 2 [...] as of this encounter (statuses as of 02/05/2021) Resolved Problems Problem Noted Date Resolved Date [...] root 4.4 cm 4.29.[address] [facility]. HTN, goal below 130/80 06/14/2009 [...] Markers for Patients with Cardiovascular Disease Project #[id number] PI: Francoise Tomlin MD Please call [phone] with study related questions INTERFACED RESULT 11/17/2008 10/17/2011 GENOMICS CARDIO RESEARCH OTHER*[id number] 200806/25/2016 Overview: Renamed Per Clinical Trials Billing Project. Study Titile: Genomic Markers for Patients with Cardiovascular Disease Project #[id number] PI: Francoise Tomlin MD Please call [phone] with study related questions CLASS I-II ANGINA [...] as of this encounter (statuses as of 02/05/2021) Immunizations Name Administration Dates Next Due Pneumococcal [...] Comments:quit 30 yrs ago, wh ile in [place] for 4 years Alcohol Use Drinks/Week oz/Week [...] Miscellaneous Notes * Telephone Encounter - Alvarado Martinez OSA - 02/02/2021 12:51 PM EDT Pt is age 85, will need clinic eval prior to procedure being scheduled for screening colonoscopy. LMhome# for pt to return call. * Telephone Encounter - Calista Rodriguez OSA - 01/26/2021 12:57 PM EDT LMHome for patient to call and schedule. * Telephone Encounter - Leonila Hadley OSA - 01/26/2021 9:52 AM EDT Colonoscopy referral Pt is diabetic on insulin On blood thinner not sure what one hes on Please call pt to schedule documented in this encounter Plan of Treatment Upcoming Encounters Date Type Specialty Care Team Description 02/15/2021 Office Visit Cardiology Leonila Reaves CRNP [address] [place] [address] [phone] 04/27/[address] [facility] Stephanie [address] [place] [address] 06/06/2021 Office Visit Nephrology Washington Tello MD 200 [place] [address] [phone] 07/19/2021 Office Visit Dermatology Lyssa Gar MD 200 [facility] [place] [address] [phone] 07/27/2021 Office Visit Family Medicine Carola Arrington MD [address] [place] [address] [phone] Health Maintenance Due Date Last Done Comments [...] on File Type Date Recorded Patient Medical Consultant Expl anation Advanced Directive 11/15/2008 12:00 AM [...] the patient have Health Care Power of Emergency Management Program Specialist? Yes, not currently available Full Code 09/15/2009 [...]
--- OUTSIDE RECORDS SUMMARY | 2023-02-21 02:43 | External Medical Summary ---
Author Name Unknown Address Unknown Organization K0G:[facility] [address] [place] [address] Laboratory Report Ordering Provider Test Date Status LACI PABLO 02/07/2021 06:57:27 Final Observation Date Value Abnormality Reference (Units ) Status BUN 02/07/2021 06:57:27 30 Above high normal 6-20 (mg/dL) Final Creatinine 02/07/2021 06:57:27 1.6 Above high normal 0.6-1.2 (mg/dL) Final Glomerular filtration rate/1.73 sq M.predicted [Volume Rate/Area] in Serum, Plasma or Blood by Creatinine-based formula (CKD-EPI) 02/07/2021 06:57:27 38.4 Below low normal >=60.0 (mL/min) Final Performing Location [facility] [address] [place] [address]
--- OUTSIDE RECORDS SUMMARY | 2023-02-21 02:43 | External Medical Summary | Summary of Care ---
Author Name Unknown Organization [place] [address] Care Team Providers Care Fusing Machine Operator Name Role Phone Gerry Arrington MD Primary Care Provider Reason for Visit * Reason Comments eRx-Medication Refill Encounter Details Date Type Department Care Team Description 02/13/2021 Refill Family Practice [facility] 132 [facility] [place] [address] Monty Dumont MD [address] [place] [address] [place] [address] Aortocoronary bypass status; Acute coronary syndrome (HCC); Chronic coronary artery disease; Enlarged aorta (HCC) Allergies No Known Active Allergiesdocumented as of this encounter (statuses as of 02/14/2021) Medications Medication Sig Dispensed Refills Start Date End Date Status ONE TOUCH ULTRA DEVIIndications:DM type 2, not at goal (HCC) check daily 1 0 12/11/2005 Active ONE TOUCH ULTRA CONTROL SOLNIndications:DM type 2, not at goal ([facility]) check daily 1 11 12/11/2005 Active ONE TOUCH ULTRA TEST STRPIndications:DM type 2, not at goal (HCC) test daily 1 box 11 12/11/2005 Active ONE TOUCH ULTRASOFT LANCETS MISCIndications:DM type 2, not at goal ([facility]) test daily 1 box 11 12/11/2005 Active aspirin 81 MG chewable tablet Take 1 Tab by mouth daily. 34 Tab 11 10/28/2017 Active isosorbide dinitrate (ISORDIL) 20 MG Tablet Take 1 Tab by mouth 3 times a day. at 8am, 12 noon and 4pm. 90 Tab 5 01/20/2018 Active nitroglycerin (NITROSTAT) 0.4 MG SUBLIndications:Ch ronic [...] disease, without long-term current use of insulin ([facility]),DM type 2, goal A1C to be determined ([facility]) Use with insulin pen once daily 100 Each 1 11/09/2020 Active Losartan Potassium 50 MG Oral Tablet (Cozaar) TAKE 2 TABLETS BY MOUTH EVERY DAY 100 Tab 3 12/20/2020 Active Lantus SoloStar 100 UNIT/ML Subcutaneous Solution Pen-injector (Insulin Glargine)Indicatio ns:Type 2 diabetes mellitus with stage 3b chronic kidney disease, without long-term current use of insulin ([facility]),DM type 2, goal A1C to be determined ([facility]) Inject 15 Units under the skin [...] EVERY DAY 100 Tab 1 02/14/2021 Active Clopidogrel Bisulfate 75 MG Oral Tablet (pLAVix)Indication s:Aortocoronary bypass status,Acute coronary syndrome (HCC),Chronic coronary artery disease,Enlarged aorta (HCC) Take 1 Tab by mouth daily. 100 Tab 1 08/22/2020 Discontinued documented as of this encounter (statuses as of 02/14/2021) Active Problems Problem Noted Date Type 2 [...] as of this encounter (statuses as of 02/14/2021) Resolved Problems Problem Noted Date Resolved Date [...] Aortic root 4.4 cm 4.29.2009 [facility]. HTN, goal below 130/80 06/14/2009 [...] Markers for Patients with Cardiovascular Disease Project #[id number] PI: Francoise Tomlin MD Please call [phone] with study related questions INTERFACED RESULT 11/17/2008 10/17/2011 GENOMICS CARDIO RESEARCH OTHER*[id number] 200806/25/2016 Overview: Renamed Per Clinical Trials Billing Project. Study Titile: Genomic Markers for Patients with Cardiovascular Disease Project #[id number] PI: Francoise Tomlin MD Please call [phone] with study related questions CLASS I-II ANGINA [...] as of this encounter (statuses as of 02/14/2021) Immunizations Name Administration Dates Next Due Pneumococcal [...] Comments:quit 30 yrs ago, wh ile in [employer] for 4 years Alcohol Use Drinks/Week oz/Week [...] Miscellaneous Notes * [facility] 02/14/2021 2:07 PM EDT Signed Prescriptions: Disp Refills Clopidogrel Bisulfate 75 MG Oral Tablet (p*100 Tab1 Sig: TAKE 1TABLET BY MOUTH EVERY DAYAuthorizing Provider: GERRY ARRINGTON User: TA AMADOR documented in this encounter Plan of Treatment Upcoming Encounters Date Type Specialty Care Team Description 02/15/2021 Office Visit Cardiology Leonila Reaves CRNP 132 [facility] [place] [id number] 04/27/2021 Office Visit Pharmacy [facility] Stephanie 132 [facility] [place] [address] 06/06/2021 Office Visit Nephrology Washington Tello MD [address] [place] [address] [phone] 07/19/2021 Office Visit Dermatology Lyssa Gar MD [address] [place] [address] [phone] 07/27/2021 Office Visit Family Medicine Gerry Arrington MD 132 [facility] [place] [address] [phone] Health Maintenance Due Date Last Done Comments [...] Coronary atherosclerosis of unspecified type of vessel, [place] or graft Enlarged aorta (HCC) Other specified disorders of arteries and arterioles documented in this encounter Advance Directives Documents on File Type Date Recorded Patient Technical Service Engineer Expl anation Advanced Directive 11/15/2008 12:00 AM [...] the patient have Health Care Power of Practice Office Associate? Yes, not currently available Full Code 09/15/2009 [...]
--- OUTSIDE RECORDS SUMMARY | 2023-02-21 02:43 | External Medical Summary | Summary of Care ---
Author Name Unknown Organization [place] [address] Care Team Providers Care Perl Programmer Name Role Phone Carola Arrington MD Primary Care Provider Reason for Visit * Reason Onset Date Comments Test Results 02/27/2021 echo Encounter Details Date Type Department Care Team Description 02/27/2021 Telephone Cardiology, [facility] [address] [place] [address] Leonila Reaves CRNP [address] [place] [address] [phone] Test Results (echo) Allergies No Known Active Allergiesdocumented as of this encounter (statuses as of 02/27/2021) Medications Medication Sig Dispensed Refills Start Date [...] long-term current use of insulin ([facility]),DM type 2, goal A1C to be determined ([facility]) Use with insulin pen once daily 100 Each 1 11/09/2020 Active Losartan Potassium 50 MG Oral Tablet (Cozaar) TAKE 2 TABLETS BY MOUTH EVERY DAY 100 Tab 3 12/20/2020 Active Lantus SoloStar 100 UNIT/ML Subcutaneous Solution Pen-injector (Insulin Glargine)Indications: Type 2 diabetes mellitus with stage 3b chronic kidney disease, without long-term current use of insulin ([facility]),DM type 2, goal A1C to be determined ([facility]) Inject 15 Units under the [...] Tab by mouth daily. 0 02/06/2021 Active documented as of this encounter (statuses as of 02/27/2021) Active Problems Problem Noted Date Type 2 [...] as of this encounter (statuses as of 02/27/2021) Resolved Problems Problem Noted Date Resolved Date [...] Aortic root 4.4 cm 4.29.2009 echo at [facility]. HTN, goal below 130/80 06/14/2009 2 Overview: Per HTN Taxonomy. Type 2 diabetes mellitus wit h hemoglobin A1c goal of less than 7.0% 03/02/2009 03/27/2011 Overview: Modified per Diabetes protocol #14. ICD-10 update of inactive term EXAMINATION OF PARTICIPANT IN CLINICAL TRIAL-gen omics 11/17/2008 09/01/2009 Overview: Renamed Per Clinical Trials Billing Project. Study Titile: Genomic Markers for Patients with Cardiovascular Disease Project #[id number] PI: Francoise Tomlin MD Please call [phone] with study related questions INTERFACED RESULT 11/17/2008 10/17/2011 GENOMICS CARDIO RESEARCH OTHER*[id number] 200806/25/2016 Overview: Renamed Per Clinical Trials Billing Project. Study Titile: Genomic Markers for Patients with Cardiovascular Disease Project #[id number] PI: Francoise Tolmin MD Please call [phone] with study related questions CLASS I-II ANGINA PECTORIS, STABLE 04/26/2002 09/15/2009 Mixed dyslipidemia 04/26/2002 05/01/2009 Overview: Per Lipid Taxonomy. BENIGN NEOPLASM LG BOWEL 01/17/2002 019 HTN, goal below 140/90 08/23/1998 0 Overview: Per HTN Taxonomy. DM type 2, not at goal 08/23/1998 10 9 Overview: Modified per Diabetes protocol #14. THREE VESSEL ATHEROSCLEROTIC CORONARY DISEASE 09/15/2009 Dyslipidemia, goal LDL below 160 07/13/2013 documented as of this encounter (statuses as of 02/27/2021) Immunizations Name Administration Dates Next Due Pneumococcal [...] Comments:quit 30 yrs ago, wh ile in [employer] for 4 years Alcohol Use Drinks/Week oz/Week [...] encounter Miscellaneous Notes * Telephone Encounter - Ravi Salinas LPN - 02/27/2021 12:26 PM EDT Letter sent. * Telephone Encounter - Ravi Salians LPN - 02/27/2021 12:20 PM EDT ----- Message from JOS Castorena sent at 02/27/2021 7:54 AM EDT ----- Echo results showed a preserved LVEF of 55-59% with normal wall motion. Mild aortic valve stenosis was present. Aortic root mildly enlarged at 4 cm and proximal ascending aorta mildly enlarged to 4.1cm. When compared to prior study in 2019 there has been no significant change. Ok/stable. No changes at this time. documented in this encounter Plan of Treatment Upcoming Encounters Date Type Specialty Care Team Description 04/27/2021 Office Visit Pharmacy [facility] [address] [place] [address] 06/06/2021 Office Visit Nephrology Washington Tello MD [address] [facility] [place] [address] [phone] 07/19/2021 Office Visit Dermatology Lyssa Gar MD [address] [facility] [place] [address] [phone] 07/27/2021 Office Visit Family Medicine Carola Arrington MD [address] [place] [address] 10/18/2021 Office Visit Cardiology Azael Lozano MD [...] Additional history exists CKD GFR USE SMARTSET 77834 08/07/202102/07, 01/26/2021, 09/15/2020, Additional history exists DIABETES-EYE EXAM 08/16/2021 08/16/2020, , 04/15/2012, Additional history exists CKD PHOS USE SMARTSET 49141 09/15/2021 04/, 04/18/2020, 04/27/2019, Additional history exists CKD HGB USE SMARTSET 77801 01/26/202201/26, 01/26/2021, 09/15/2020, Additional history exists DTaP,Tdap,and Td Vaccines (2 - Td) 07/10/2022 07/10/2012 Pneumococcal Vaccine: 65+ Years Completed 01/18/2016, 11/20/2004 MENINGOCOCCAL (MENACTRA/MENVEO) Aged Out No longer eligible based on patient's age to complete this topic documented as of this encounter Implants Not on filedocumented as of this encounter Advance Directives Documents on File Type Date Recorded Patient Machine Shop Repair Technician Expl anation Advanced Directive 11/15/2008 12:00 AM [...] the patient have Health Care Power of Sourcing Manager? Yes, not currently available Full Code [...]
--- OUTSIDE RECORDS SUMMARY | 2023-02-21 02:43 | External Medical Summary | Summary of Care ---
Author Name Unknown Organization [place] [address] Care Team Providers Care Marketing Production Coordinator Name Role Phone Carola Arrington MD Primary Care Provider Reason for Visit * Reason Comments Outpatient Testing Encounter Details Date Type Department Care Team Description 02/07/2021 Laboratory Laboratory, [facility] [address] [place] [address] [facility] [address] [place] [address] Hyperkalemia Allergies No Known Active Allergiesdocumented as of this encounter (statuses as of 02/07/2021) Medications Medication Sig Dispensed Refills Start Date End Date Status ONE TOUCH ULTRA DEVIIndications:DM type 2, not at goal ([facility]) check daily 1 0 12/11/2005 Active ONE TOUCH ULTRA CONTROL SOLNIndications:DM type 2, not at goal ([facility]) check daily 1 11 12/11/2005 Active ONE TOUCH ULTRA TEST STRPIndications:DM type 2, not at goal ([facility]) test daily 1 box 11 12/11/2005 Active ONE TOUCH ULTRASOFT LANCETS MISCIndications:DM type 2, not at goal ([facility]) test daily 1 box 11 12/11/2005 Active [...] Markers for Patients with Cardiovascular Disease Project #[id number] PI: Francoise Tomlin MD Please call [phone] with study related questions INTERFACED RESULT 11/17/2008 10/17/2011 GENOMICS CARDIO RESEARCH OTHER*[id number] 200806/25/2016 Overview: Renamed Per Clinical Trials Billing Project. Study Titile: Genomic Markers for Patients with Cardiovascular Disease Project #[id number] PI: Francoise Tomlin MD Please call [phone] with study related questions CLASS I-II ANGINA [...] Comments:quit 30 yrs ago, wh ile in [employer] for 4 years Alcohol Use Drinks/Week oz/Week [...] of this encounter Miscellaneous Notes * Result Ava - Silvia Beaulieu RN - 02/07/2021 12:49 PM EDT Letter sent. 02/07/2021 * Result Ava - Leonila Reaves CRNP - 02/07/2021 9:35 AM EDT Kidney function stable. Sodium level improved to WNL. Potassium stable. Glucose elevated, will defer to PCP for diabetes management. documented in this encounter Plan of Treatment Upcoming Encounters Date Type Specialty Care Team Description 02/15/2021 Office Visit Cardiology Leonila Reaves CRNP [address] [facility] [place] [id number] 04/27/2021 Office Visit Pharmacy [facility] [address] [place] [address] 06/06/2021 Office Visit Nephrology Washington Tello MD [address] [place] [address] [phone] 07/19/2021 Office Visit Dermatology Lyssa Gar MD [address] [facility] [place] [address] [phone] 07/27/2021 Office Visit Family Medicine Carola Arrington MD [address] [facility] [place] [address] Health Maintenance Due Date Last Done [...] Associated Diagnosis Comments BASIC METABOLIC PANEL Routine 02/07/2021 6:57 AM EDT Hyperkalemia documented in this encounter Results * BASIC METABOLIC PANEL (02/07/2021 6:57 AM EDT) BUN 30(H) 6 - 20 mg/dL [facility] Creatinine 1.6(H) 0.6 - 1.2 mg/dL [facility]10 Estimated Glomerular Filtration Rate 38.4(L)Comment:If patient is , multiply estimated GFR by 1.159. >=60.0 mL/min [facility]-10 Sodium 135 135 - 146 mmol/L [facility]10 Potassium 4.9 3.5 - 5.1 mmol/L [facility]10 Chloride 99 98 - 107 mmol/L [facility]10 CO2 27 22 - 32 mmol/L [facility] Anion Gap 9 7 - 15 mmol/L [facility] Glucose 257(H) 70 - 120 mg/dL [facility]10 Calcium 9.8 8.4 - 10.2 mg/dL [facility]10 Specimen Blood - Venous blood specime n (specimen) [facility]10 [address] [facility] [place] [address] documented in this encounter Visit Diagnoses Diagnosis Hyperkalemia Hyperpotassemia documented in this encounter Advance Directives Documents on File Type Date Recorded Patient Exploration Driller Expl anation Advanced Directive 11/15/2008 12:00 AM [...] have Health Care Power of Director Of Consulting Services? Yes, not currently available Full Code 09/15/2009 [...]
--- OUTSIDE RECORDS SUMMARY | 2023-02-21 02:43 | External Medical Summary | Summary of Care ---
Author Name Unknown Organization [place] [address] Care Team Providers Care Wall Covering Contractor Name Role Phone Carola Arrington MD Primary Care Provider Reason for Visit * Reason Comments eRx-Medication Refill Encounter Details Date Type Department Care Team Description 03/23/2021 Refill Cardiology, [facility] [address] [facility] [place] [address] Sushila Lozano MD [address] [place] [address] HTN, goal below 130/80 Allergies No known active allergiesdocumented as of this encounter (statuses as of 03/26/2021) Medications Medication Sig Dispensed Refills Start Date [...] A1C to be determined ([facility]) Use with insulin pen once daily 100 Each 1 11/09/2020 Active Losartan Potassium 50 MG Oral Tablet (Cozaar) TAKE 2 TABLETS BY MOUTH EVERY DAY 100 Tab 3 12/20/2020 Active Lantus SoloStar 100 UNIT/ML Subcutaneous Solution Pen-injector (Insulin Glargine)Indicatio ns:Type 2 diabetes mellitus with stage 3b chronic kidney disease, without long-term current use of insulin ([facility]),DM type 2, goal A1C to be determined ([facility]) Inject 15 Units under the skin [...] EVERY DAY 90 Tablet 3 03/26/2021 Active amLODIPine Besylate 5 MG Oral Tablet (NORVASC)Indicatio ns:HTN, goal below 130/80 TAKE 1 TABLET BY MOUTH EVERY DAY 90 Tab 3 04/03/2020 1 Discontinued documented as of this encounter (statuses as of 03/26/2021) Active Problems Problem Noted Date Type 2 [...] as of this encounter (statuses as of 03/26/2021) Resolved Problems Problem Noted Date Resolved Date [...] 0 11/22/2011 12/30/2016 Acute coronary syndrome 09/15/2009 06/08/20 17 Enlarged aorta 09/15/2009 04/27/2019 Overview: Aortic root 4.4 cm 4.29.2009 echo at [facility]. HTN, goal below 130/80 06/14/2009 2 Overview: Per HTN Taxonomy. Type 2 diabetes mellitus wit h hemoglobin A1c goal of less than 7.0% 03/02/2009 03/27/2011 Overview: Modified per Diabetes protocol #14. ICD-10 update of inactive term EXAMINATION OF PARTICIPANT IN CLINICAL TRIAL-gen omics 11/17/2008 09/01/2009 Overview: Renamed Per Clinical Trials Billing Project. Study Titile: Genomic Markers for Patients with Cardiovascular Disease Project #[id number] PI: Francoise Tomlin MD Please call [phone] with study related questions INTERFACED RESULT 11/17/2008 10/17/2011 GENOMICS CARDIO RESEARCH OTHER*[id number] 200806/25/2016 Overview: Renamed Per Clinical Trials Billing Project. Study Titile: Genomic Markers for Patients with Cardiovascular Disease Project #[id number] PI: Francoise Tomlin MD Please call [phone] with study related questions CLASS I-II ANGINA [...] as of this encounter (statuses as of 03/26/2021) Immunizations Name Administration Dates Next Due Pneumococcal [...] Comments:quit 30 yrs ago, wh ile in [employer] for 4 years Alcohol Use Standard Drinks/Week [...] one occasion? Not asked Comment: socially 10/27/2019 Sex Assigned at Date Recorded Male 10/27/2019 8:32 AM E DT Job Start Date Occupation Industry Not on file Not on file Not on file documented as of this encounter Miscellaneous Notes * Telephone Encounter - Sushila Lozano MD - 03/26/2021 9:13 AM EST Signed Prescriptions: Disp Refills amLODIPine Besylate 5 MG Oral Tablet (Norv*90 Tab*3 Sig: TAKE 1 TABLET BY MOUTH EVERY DAY Authorizing Provider: SUSHILA LOZANO * Telephone Encounter - Aguilar Hasnon RN - 03/23/2021 8:47 AM EDT Pending Prescriptions: Disp Refills amLODIPine Besylate 5 MG Oral Tablet (Nor*90 Tab 3 Sig: TAKE 1 TABLET BY MOUTH EVERY DAY * Telephone Encounter - Aguilar Hanson RN - 03/23/2021 8:46 AM EDT Pending Prescriptions: Disp Refills amLODIPine Besylate 5 MG Oral Tablet (Nor*90 Tab 3 Sig: TAKE 1 TABLET BY MOUTH EVERY DAY Last Office/Telemedicine Visit: 02/15/2021 10/18/2021 Last medication order date: 04/03/2020 Have you choosen a preferred pharm?? 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 Dyslipidemia, goal LDL below 70 E78.5 S/P angioplasty with stent Z95.820 DM type 2, goal A1C to be determined ([facility]) E11.9 HTN, goal below 140/90 I10 History of colon polyps Z86.010 Stable angina ([facility]) I20.8 Hypertensive kidney disease with stage 3b chronic kidney disease I12.9, N18.32 Type 2 diabetes mellitus with stage 3b chronic kidney disease (HCC) E11.22, N18.32 Chronic kidney disease, stage 3b ([facility]) N18.32 Labs: Lab Results Component Value [...] Office Visit Gastroenterology Lilo Briones CRNP 132 [facility] [place] [address] 04/27/2021 Office Visit Pharmacy [facility] 132 [facility] [place] [address] 06/06/2021 Office Visit Nephrology Washington Tello MD 200 [facility] [place] [address] 07/19/2021 Office Visit Dermatology Lyssa Gar MD 200 [facility] [place] [address] 07/27/2021 Office Visit Family Medicine [facility] [address] [facility] [place] [address] 10/18/2021 Office Visit Cardiology Ssuhila Lozano MD 132 [place] [address] Health Maintenance Due Date Last Done [...] Additional history exists CKD GFR USE SMARTSET 74313 08/07/202102/07, 01/26/2021, 09/15/2020, Additional history exists DIABETES-EYE EXAM 08/16/2021 08/16/2020, , 04/15/2012, Additional history exists CKD PHOS USE SMARTSET 18312 09/15/2021 04/3 , 04/18/2020, 04/27/2019, Additional history exists CKD HGB USE SMARTSET 51438 01/26/202201/26, 01/26/2021, 09/15/2020, Additional history exists DTaP,Tdap,and [...] Documents on File Type Date Recorded Patient General Forecaster Expl anation Advanced Directive Advanced Directive Advanced [...] the patient have Health Care Power of Clinic Clerk? Yes, not currently available Full Code 09/15/2009 [...] Advance Directives occurred with: Patient Care Teams Wall Covering Contractor Relationship Specialty Start Date End Date Carola Arrington MD [address] [place] [address] PCP - General Internal Medicine 12/19/20 documented as of this encounter
--- OUTSIDE RECORDS SUMMARY | 2023-02-21 02:43 | External Medical Summary | Summary of Care ---
Author Name Unknown Organization [place] [address] Care Team Providers Care Endoscopic Technician Name Role Phone Carola Arrington MD Primary Care Provider Reason for Visit * Reason Onset Date Comments Colonoscopy 01/26/2021 Encounter Details Date Type Department Care Team Description 01/26/2021 Telephone Family Practice [facility] 132 [facility] [place] [address] Carola Arrington MD 132 [facility] [place] [address] [phone] Colonoscopy Allergies No Known Active Allergiesdocumented as of this encounter (statuses as of 03/09/2021) Medications Medication Sig Dispensed Refills Start Date [...] Active amLODIPine Besylate 5 MG Oral Tablet (NORVASC)Indicati ons:HTN, goal below 130/80 TAKE 1 TABLET [...] of insulin ([facility]),DM type 2, goal A1C to be determined ([facility]) Use with insulin pen once daily 100 Each 1 11/09/2020 Active Losartan Potassium 50 MG Oral Tablet (Cozaar) TAKE 2 TABLETS BY MOUTH EVERY DAY 100 Tab 3 12/20/2020 Active Lantus SoloStar 100 UNIT/ML Subcutaneous Solution Pen-injector (Insulin Glargine)Indicati ons:Type 2 diabetes mellitus with stage 3b chronic kidney disease, without long-term current use of insulin ([facility]),DM type 2, goal A1C to be determined ([facility]) Inject 15 Units under the skin daily. Or as directed 15 Each 3 12/22/2020 Active Isosorbide Mononitrate ER 120 MG Oral Tablet Extended Release 24 Hour TAKE 1 TABLET BY MOUTH EVERY MORNING 90 Tab 1 12/27/2020 Active ONE TOUCH ULTRA DEVIIndications:D M type 2, not at goal (HCC) check daily 1 0 12/11/2005 1 Discontinued(Med ication List Clean Up) ONE TOUCH ULTRA CONTROL SOLNIndications:D M type 2, not at goal ([facility]) check daily 1 11 12/11/2005 1 Discontinued(Med ication List Clean Up) ONE TOUCH ULTRA TEST STRPIndications:D M type 2, not at goal ([facility]) test daily 1 box 11 12/11/2005 1 Discontinued(Med ication List Clean Up) ONE TOUCH ULTRASOFT LANCETS MISCIndications:D M type 2, not at goal (HCC) test daily 1 box 11 12/11/2005 1 Discontinued(Med ication List Clean Up) isosorbide dinitrate (ISORDIL) 20 MG Tablet Take 1 Tab by mouth 3 times a day. at 8am, 12 noon and 4pm. 90 Tab 5 01/20/2018 1 Discontinued(Med ication List Clean Up) Clopidogrel Bisulfate 75 MG Oral Tablet (pLAVix)Indicatio ns:Aortocoronary bypass status,Acute coronary syndrome (HCC),Chronic coronary artery disease,Enlarged aorta (HCC) Take 1 Tab by mouth daily. 100 Tab 1 08/22/2020 1 Discontinued documented as of this encounter (statuses as of 03/09/2021) Active Problems Problem Noted Date Type 2 [...] as of this encounter (statuses as of 03/09/2021) Resolved Problems Problem Noted Date Resolved Date [...] 4.4 cm 4.29.2009 echo at [facility]. HTN, goal below 130/80 06/14/2009 2 Overview: Per HTN Taxonomy. Type 2 diabetes mellitus wit h hemoglobin A1c goal of less than 7.0% 03/02/2009 03/27/2011 Overview: Modified per Diabetes protocol #14. ICD-10 update of inactive term EXAMINATION OF PARTICIPANT IN CLINICAL TRIAL-gen omics 11/17/2008 09/01/2009 Overview: Renamed Per Clinical Trials Billing Project. Study Titile: Genomic Markers for Patients with Cardiovascular Disease Project #[id number] PI: Francoise Tomlin MD Please call [phone] with study related questions INTERFACED RESULT 11/17/2008 10/17/2011 GENOMICS CARDIO RESEARCH OTHER*[id number] 200806/25/2016 Overview: Renamed Per Clinical Trials Billing Project. Study Titile: Genomic Markers for Patients with Cardiovascular Disease Project #[id number] PI: Francoise Tomlin MD Please call [phone] with study related questions CLASS I-II ANGINA [...] as of this encounter (statuses as of 03/09/2021) Immunizations Name Administration Dates Next Due Pneumococcal [...] Comments:quit 30 yrs ago, wh ile in [employer] for 4 years Alcohol Use Drinks/Week oz/Week [...] encounter Miscellaneous Notes * Telephone Encounter - Calista Rodriguez, NERIS - 03/09/2021 1:39 PM EDT LMHome for patient to call and schedule. * Telephone Encounter - Yasemin Gross OSA - 02/07/2021 3:03 PM EDT Spoke to spouse, states that pt is going to be out of town for a couple weeks and would like to have a call back in about 1 month. Delaying message for 1 month. * Telephone Encounter - Alvarado Martinez OSA [...] Care Team Description 04/27/2021 Office Visit Pharmacy [facility] 132 [facility] [place] [id number] 06/06/2021 Office Visit Nephrology Washington Tello MD [address] [place] [address] [phone] 07/19/2021 Office Visit Dermatology Lyssa Gar MD 200 [place] [address] [phone] 07/27/2021 Office Visit Family Medicine Carola Arrington MD [address] [place] [address] 10/18/2021 Office Visit Cardiology Azael Lozano [...] Additional history exists CKD GFR USE SMARTSET 68760 08/07/202102/07, 01/26/2021, 09/15/2020, Additional history exists DIABETES-EYE EXAM 08/16/2021 08/16/2020, , 04/15/2012, Additional history exists CKD PHOS USE SMARTSET 84163 09/15/2021 04/3 , 04/18/2020, 04/27/2019, Additional history exists CKD HGB USE SMARTSET 86087 01/26/202201/26, 01/26/2021, 09/15/2020, Additional history exists DTaP,Tdap,and Td Vaccines (2 - Td) 07/10/2022 07/10/2012 Pneumococcal Vaccine: 65+ Years Completed 01/18/2016, 11/20/2004 MENINGOCOCCAL (MENACTRA/MENVEO) Aged Out No longer eligible based on patient's age to complete this topic documented as of this encounter Implants Not on filedocumented as of this encounter Advance Directives Documents on File Type Date Recorded Patient Customs Investigator Expl anation Advanced Directive 11/15/2008 12:00 AM [...] the patient have Health Care Power of Winding Rack Operator? Yes, not currently available Full Code [...]
--- OUTSIDE RECORDS SUMMARY | 2023-02-21 02:43 | External Medical Summary | Summary of Care ---
Author Name Unknown Organization [place] [address] Care Team Providers Care Customer Service Teller Name Role Phone Carola Arrington MD Primary Care Provider Reason for Visit * Reason Comments Outpatient Testing Encounter Details Date Type Department Care Team Description 02/07/2021 Laboratory Laboratory, [facility] [address] [place] [address] [facility] [address] [place] [address] Hyperkalemia Allergies No Known Active Allergiesdocumented as of this encounter (statuses as of 02/07/2021) Medications Medication Sig Dispensed Refills Start Date End Date Status ONE TOUCH ULTRA DEVIIndications:DM type 2, not at goal ([facility]) check daily 1 0 12/11/2005 Active ONE TOUCH ULTRA CONTROL SOLNIndications:DM type 2, not at goal ([facility]) check daily 1 11 12/11/2005 Active ONE TOUCH ULTRA TEST STRPIndications:DM type 2, not at goal ([facility]) test daily 1 box 11 12/11/2005 Active ONE TOUCH ULTRASOFT LANCETS MISCIndications:DM type 2, not at goal ([facility]) test daily 1 box 11 12/11/2005 Active [...] Markers for Patients with Cardiovascular Disease Project #[id number] PI: Francoise Tomlin MD Please call [phone] with study related questions INTERFACED RESULT 11/17/2008 10/17/2011 GENOMICS CARDIO RESEARCH OTHER*[id number] 200806/25/2016 Overview: Renamed Per Clinical Trials Billing Project. Study Titile: Genomic Markers for Patients with Cardiovascular Disease Project #[id number] PI: Francoise Tomlin MD Please call [phone] with study related questions CLASS I-II ANGINA [...] Comments:quit 30 yrs ago, wh ile in [place] for 4 years Alcohol Use Drinks/Week oz/Week [...] 02/15/2021 Office Visit Cardiology Leonila Reaves CRNP [address] [place] [address] [phone] 04/27/2021 Office Visit Pharmacy [facility] [address] [place] [address] 06/06/2021 Office Visit Nephrology Washington Tello MD [address] [place] [address] [phone] 07/19/2021 Office Visit Dermatology Lyssa Gar MD [address] [facility] [place] [address] [phone] 07/27/2021 Office Visit Family Medicine Carola Arrington MD [address] [facility] [place] [address] [phone] Pending Results Name Type Priority Associated Diagnoses Date /Time BASIC METABOLIC PANEL Lab Routine Hyperkalemia 02/07/2021 6:57 AM EDT Health Maintenance Due Date Last [...] Documents on File Type Date Recorded Patient Life Coach Expl anation Advanced Directive 11/15/2008 12:00 AM [...] the patient have Health Care Power of Router Setter? Yes, not currently available Full Code 09/15/2009 [...]
--- OUTSIDE RECORDS SUMMARY | 2023-02-21 02:43 | External Medical Summary | Summary of Care ---
Author Name Unknown Organization [place] [address] Care Team Providers Care Residence Life Coordinator Name Role Phone Carola Arrington MD Primary Care Provider Reason for Visit * Reason Onset Date Comments Colonoscopy 01/26/2021 Encounter Details Date Type Department Care Team Description 01/26/2021 Telephone Family Practice [facility] [address] [facility] [place] [address] Carola Arrington MD [address] [facility] [place] [address] [phone] Colonoscopy Allergies No Known Active Allergiesdocumented as of this encounter (statuses as of 03/13/2021) Medications Medication Sig Dispensed Refills Start Date [...] disease, without long-term current use of insulin ([facility]),DM type 2, goal A1C to be determined ([facility]) Use with insulin pen once daily 100 Each 1 11/09/2020 Active Losartan Potassium 50 MG Oral Tablet (Cozaar) TAKE 2 TABLETS BY MOUTH EVERY DAY 100 Tab 3 12/20/2020 Active Lantus SoloStar 100 UNIT/ML Subcutaneous Solution Pen-injector (Insulin Glargine)Indicati ons:Type 2 diabetes mellitus with stage 3b chronic kidney disease, without long-term current use of insulin ([facility]),DM type 2, goal A1C to be determined ([facility]) Inject 15 Units under the [...] SOLNIndications:D M type 2, not at goal ([facility]) check daily 1 11 12/11/2005 1 Discontinued(Med ication List Clean Up) ONE TOUCH ULTRA TEST STRPIndications:D M type 2, not at goal ([facility]) test daily 1 box 11 [...] as of this encounter (statuses as of 03/13/2021) Active Problems Problem Noted Date Type 2 [...] as of this encounter (statuses as of 03/13/2021) Resolved Problems Problem Noted Date Resolved Date [...] Markers for Patients with Cardiovascular Disease Project #[id number] PI: Francoise Tomlin MD Please call [phone] with study related questions INTERFACED RESULT 11/17/2008 10/17/2011 GENOMICS CARDIO RESEARCH OTHER*[id number] 200806/25/2016 Overview: Renamed Per Clinical Trials Billing Project. Study Titile: Genomic Markers for Patients with Cardiovascular Disease Project #[id number] PI: Francoise Tomlin MD Please call [phone] with study related questions CLASS I-II ANGINA [...] as of this encounter (statuses as of 03/13/2021) Immunizations Name Administration Dates Next Due Pneumococcal [...] Comments:quit 30 yrs ago, wh ile in [place] for 4 years Alcohol Use Drinks/Week oz/Week [...] encounter Miscellaneous Notes * Telephone Encounter - Renato Yasemin E, NERIS - 03/13/2021 10:38 AM EDT Pt scheduled for 04/24/2021 with Lilo Briones for colonoscopy evaluation. * Telephone Encounter - Calista Rodriguez OSA - 03/09/2021 1:39 PM EDT LMHome for [...] Office Visit Gastroenterology Lilo Briones CRNP [address] [facility] [place] [address] 04/27/2021 Office Visit Pharmacy [facility] [address] [place] [address] 06/06/2021 Office Visit Nephrology Washington Tello MD [address] [place] [address] [phone] 07/19/2021 Office Visit Dermatology Lyssa Gar MD [address] [place], [place] [id number] 07/27/2021 Office Visit Family Medicine Carola Arrington MD [address] [facility] [place] [address] 10/18/2021 Office Visit Cardiology Azael Lozano MD [address] [facility] [place] [address] Health Maintenance Due Date Last Done [...] Additional history exists CKD GFR USE SMARTSET 20059 08/07/202102/07, 01/26/2021, 09/15/2020, Additional history exists DIABETES-EYE EXAM 08/16/2021 08/16/2020, , 04/15/2012, Additional history exists CKD PHOS USE SMARTSET 71662 09/15/2021 04/3 , 04/18/2020, 04/27/2019, Additional history exists CKD HGB USE SMARTSET 04330 01/26/202201/26, 01/26/2021, 09/15/2020, Additional history exists DTaP,Tdap,and Td Vaccines (2 - Td) 07/10/2022 07/10/2012 Pneumococcal Vaccine: 65+ Years Completed 01/18/2016, 11/20/2004 MENINGOCOCCAL (MENACTRA/MENVEO) Aged Out No longer eligible based on patient's age to complete this topic documented as of this encounter Implants Not on filedocumented as of this encounter Advance Directives Documents on File Type Date Recorded Patient Health Promotion Officer Expl anation Advanced Directive 11/15/2008 12:00 AM [...] the patient have Health Care Power of Leaf Stamper? Yes, not currently available Full Code 09/15/2009 [...]
--- OUTSIDE RECORDS SUMMARY | 2023-02-21 02:44 | External Medical Summary | Summary of Care ---
Author Name Unknown Organization [place] [address] Care Team Providers Care Corporate Security Manager Name Role Phone Unavailable Primary Care Provider Unavailabl e Reason for Visit * Reason Onset Date Comments Appointment 11/06/2020 Encounter Details Date Type Department Care Team Description 11/06/2020 Telephone [facility]rology[facility] [address] [place] [address] Washington Tello MD [address] [place] [address] [phone] Appointment Allergies No Known Active Allergiesdocumented as of this encounter (statuses as of 11/06/2020) Medications Medication Sig Dispensed Refills Start Date [...] 5 01/20/2018 Active nitroglycerin (NITROSTAT) 0.4 MG SUBLIndications:Chroni c coronary artery disease DISSOLVE 1 TABLET UNDER THE TONGUE EVERY 5 MINUTES FOR CHEST PAIN. UP TO 3 DOSES IN 15 MINUTES. 25 Tab 1 11/17/2018 Active amLODIPine Besylate 5 MG Oral Tablet (NORVASC)Indications:H TN, goal below 130/80 TAKE 1 TABLET BY MOUTH EVERY DAY 90 Tab 3 04/03/2020 Active Rosuvastatin Calcium 20 MG Oral Tablet (Crestor)Indications:D yslipidemia, goal LDL below 70,Dyslipidemia, goal LDL below 160,Mixed dyslipidemia Take 1 Tab by mouth daily. 90 Tab 4 05/30/2020 Active glipiZIDE ER 5 MG Oral Tablet Extended Release 24 Hour (glipiZIDE XL) Take 1 Tab by mouth 3 times a day. 270 Tab 3 06/26/2020 Active Losartan Potassium 50 MG Oral Tablet (Cozaar) Take 2 Tabs by mouth daily. 100 Tab 3 06/29/2020 Active Isosorbide Mononitrate ER 120 MG Oral Tablet Extended Release 24 Hour TAKE 1 TABLET BY MOUTH EVERY MORNING 90 Tab 1 07/12/2020 Active Clopidogrel Bisulfate 75 MG Oral Tablet (pLAVix)Indications:Ao rtocoronary bypass status,Acute coronary syndrome (HCC),Chronic coronary artery disease,Enlarged aorta (HCC) Take 1 Tab by mouth daily. 100 Tab 1 08/22/2020 Active Ranolazine ER 1000 MG Oral Tablet Extended Release 12 HourIndications:Chest pain,Unstable angina (HCC) TAKE 1 TABLET TWICE A DAY 180 Tab 3 09/04/2020 Active Metoprolol Succinate ER 25 MG Oral Tablet Extended Release 24 Hour (toPROL XL)Indications:Chronic coronary artery disease,Aortocoronary bypass status,HTN, goal below 140/90 TAKE 2 TABLETS BY MOUTH EVERY DAY 180 Tab 3 09/04/2020 Active metFORMIN HCl 500 MG Oral Tablet (Glucophage) TAKE 1 TABLET BY MOUTH EVERY DAY WITH BREAKFAST 90 Tab 1 09/28/2020 Active documented as of this encounter (statuses as of 11/06/2020) Active Problems Problem Noted Date Type 2 [...] as of this encounter (statuses as of 11/06/2020) Resolved Problems Problem Noted Date Resolved Date [...] Aortic root 4.4 cm 4.29.2009 echo at [facility]. HTN, goal below 130/80 06/14/2009 2 Overview: Per HTN Taxonomy. Type 2 diabetes mellitus wit h hemoglobin A1c goal of less than 7.0% 03/02/2009 03/27/2011 Overview: Modified per Diabetes protocol #14. ICD-10 update of inactive term EXAMINATION OF PARTICIPANT IN CLINICAL TRIAL-gen omics 11/17/2008 09/01/2009 Overview: Renamed Per Clinical Trials Billing Project. Study Titile: Genomic Markers for Patients with Cardiovascular Disease Project #[id number] PI: Francoise Tomlin MD Please call [phone] with study related questions INTERFACED RESULT 11/17/2008 10/17/2011 GENOMICS CARDIO RESEARCH OTHER*[id number] 200806/25/2016 Overview: Renamed Per Clinical Trials Billing Project. Study Titile: Genomic Markers for Patients with Cardiovascular Disease Project #[id number] PI: Francoise Tomlin MD Please call [phone] with study related questions CLASS I-II ANGINA PECTORIS, STABLE 04/26/2002 09/15/2009 Mixed dyslipidemia 04/26/2002 05/01/2009 Overview: Per Lipid Taxonomy. BENIGN NEOPLASM LG BOWEL 01/17/2002 019 HTN, goal below 140/90 08/23/1998 0 Overview: Per HTN Taxonomy. DM type 2, not at goal 08/23/199803/02/200 9 Overview: Modified per Diabetes protocol #14. THREE VESSEL ATHEROSCLEROTIC CORONARY DISEASE 09/15/2009 Dyslipidemia, goal LDL below 160 07/13/2013 documented as of this encounter (statuses as of 11/06/2020) Immunizations Name Administration Dates Next Due Pneumococcal [...] Comments:quit 30 yrs ago, wh ile in [place] for 4 years Alcohol Use Drinks/Week oz/Week [...] Miscellaneous Notes * Telephone Encounter - Crystal Mcintyre OSA - 11/06/2020 2:44 PM EDT LM to schedule from recall list. documented in this encounter Plan of Treatment Upcoming Encounters Date Type Specialty Care Team Description 11/09/2020 Office Visit Pharmacy [facility] [address] [place] [address] 01/26/2021 Office Visit Family Medicine Carola Arrington MD [address] [place] [address] [phone] 02/02/2021 Office Visit Cardiology Azael Lozano MD [address] [place] [address] [phone] Health Maintenance Due Date Last Done Comments COVID-19 Vaccine (1) 1947 Dexa Scan 1986 Zoster Vaccines (1 of 2) 1985 DIABETES-HGBA1C EVERY 6 MONTHS 03/17/2021 09/15/2020, 04/18/2020, 10/27/2019, Additional history exists COLONOSCOPY-EVERY 5 YRS AGES 18-100 03/20/2021 03/20/2016, 04/30/2010, 02/05/2002 Yearly B-12 04/18/2021 04/18/2020, 04/18, 05/01/2017 DIABETES-FOOT EXAM 04/27/2021 04/27/2020, 1 06/28/2018, 03/20/2018, Additional history exists DIABETES-EYE EXAM 08/16/2021 08/16/2020, , 04/15/2012, Additional history exists DTaP,Tdap,and Td Vaccines (2 - Td) 07/10/2022 07/10/2012 Pneumococcal Vaccine: 65+ Years Completed 01/18/2016, 11/20/2004 Influenza Vaccine (FLU shot) Completed 09/2019, 03/02/2019, 03/01/2018, Additional history exists MENINGOCOCCAL (MENACTRA/MENVEO) Aged Out No longer eligible based on patient's age to complete this topic documented as of this encounter Implants Not on filedocumented as of this encounter Advance Directives Documents on File Type Date Recorded Patient Concrete Paving Machine Operator Expl anation Advanced Directive 11/15/2008 12:00 [...] the patient have Health Care Power of Radar Repairer? Yes, not currently available Full Code 09/15/2009 [...]
--- OUTSIDE RECORDS SUMMARY | 2023-02-21 02:44 | External Medical Summary ---
Author Name Unknown Address Unknown Organization [id number]:[facility] [place] - [address] [place] [address] Laboratory Report Ordering Provider Test Date Status CASSIA MILTON 12/15/2020 09:38:41 Final Observation Date Value Abnormality Reference (Units ) Status HbA1C 12/15/2020 09:38:41 11.1 Above high normal 4. 0-5.6 (%) Final Performing Location [facility] - [address] [place] [address]
--- OUTSIDE RECORDS SUMMARY | 2023-02-21 02:44 | External Medical Summary | Summary of Care ---
Author Name Unknown Organization [place] [address] Care Team Providers Care Stationary Fireman Name Role Phone Unavailable Primary Care Provider Unavailabl e Reason for Visit * Reason Comments Re-Check 6 mo f/u Encounter Details Date Type Department Care Team Description 10/26/2020 Office Visit Family Practice [facility] [address] [place] [address] China Navas PA-C [address] [place] [address] [phone] Type 2 diabetes mellitus with stage 3b chronic kidney disease, without long-term current use of insulin (HCC)*; Hypertensive kidney disease with stage 3b chronic kidney disease; Dyslipidemia, goal LDL below 70; Aortocoronary bypass status; Chronic coronary artery disease; OP CABG X 3 Allergies No Known Active Allergiesdocumented as of this encounter (statuses as of 10/26/2020) Medications Medication Sig Dispensed Refills Start Date [...] as of this encounter (statuses as of 10/26/2020) Active Problems Problem Noted Date Type 2 [...] as of this encounter (statuses as of 10/26/2020) Resolved Problems Problem Noted Date Resolved Date [...] Markers for Patients with Cardiovascular Disease Project #[id number] PI: Francoise Tomlin MD Please call [phone] with study related questions INTERFACED RESULT 11/17/2008 10/17/2011 GENOMICS CARDIO RESEARCH OTHER*[id number] 200806/25/2016 Overview: Renamed Per Clinical Trials Billing Project. Study Titile: Genomic Markers for Patients with Cardiovascular Disease Project #[id number] PI: Francoise Tomlin MD Please call [phone] with study related questions CLASS I-II ANGINA [...] as of this encounter (statuses as of 10/26/2020) Immunizations Name Administration Dates Next Due Pneumococcal [...] Comments:quit 30 yrs ago, wh ile in [employer] for 4 years Alcohol Use Drinks/Week oz/Week [...] Sign Reading Time Taken Comments Blood Pressure 122/64 10/26/2020 9:09 AM EDT Pulse 58 10/26/2020 9:09 AM EDT Temperature 36.3 C (97.3 F) 10/26/2020 9:09 AM ED T Respiratory Rate 14 10/26/2020 9:09 AM EDT Oxygen Saturation - - Inhaled Oxygen Concentration - - Weight 69.4 kg (153 lb) 10/26/2020 9:09 AM EDT Height 180.3 cm (5' 11") 10/26/2020 9:09 AM EDT Body Mass Index 21.34 10/26/2020 9:09 AM EDT documented in this encounter Progress Notes * China Navas PA-C - 10/26/2020 9:25 AM EDT Subjective Dirk Garcia is a 85 year old male that presents for Re-Check (6 mo f/u) HPI Brief Clinical History Mr. Garcia is an 85 year old man last seen in Family Medicine 6 months ago (04-27-20). He has h/o angina, chronic diabetic complication, Chronic kidney disease, stage 3b (HCC), CKD stage 3, Hypertensive kidney disease with stage 3b chronic kidney disease (HCC), Stable angina (HCC), and Type 2 diabetes mellitus with stage 3b chronic kidney disease (HCC). 6 month follow up. Previous patient of Dr. Dumont. Denies any concerns today. Type 2 DM is uncontrolled. Last A1C 11.8% on 09/15/20. Follows with MTM though has not answered recent telephone call attempts to discuss medication changes to treat uncontrolled BS. Patient does not check BS at home - states he does not like the needles. No hypoglycemia. Up to date eye exam and foot exam. CKD stage 3B. Follows with nephrology and cardiology. Denies dizziness, weakness, LH, CP, SOB, cough, abd pain, n/v/d/c, edema, paresthesia, or wounds. Past Medical History: Diagnosis Date Aortocoronary bypass status 12/06/2008 Benign neoplasm of colon 01/18 Chronic coronary artery disease 11/17/2008 Coronary atherosclerosis of [place] coronary artery DM type 2, goal A1c below 7 DM type 2, goal A1C to be determined (HCC) Dyslipidemia, goal LDL below 160 Dyslipidemia, goal LDL below 70 05/01/2009 Per Lipid Taxonomy. Enlarged aorta (HCC) 09/15/2009 Aortic root 4.4 cm 4.29.2010 echo at [facility]. HTN, goal below 130/80 06/14/2009 Per HTN Taxonomy. HTN, goal below 140/90 S/P angioplasty with stent drug eluting 09/15/09 Plavix x 12m Current Outpatient Medications Medication Sig Dispense Refill metFORMIN HCl 500 MG Oral Tablet (Glucophage) TAKE 1 TABLET BY MOUTH EVERY DAY WITH BREAKFAST 90 Tab 1 Metoprolol Succinate ER 25 MG Oral Tablet Extended Release 24 Hour (toPROL XL) TAKE 2 TABLETS BY MOUTH EVERY DAY 180 Tab 3 Ranolazine ER 1000 MG Oral Tablet Extended Release 12 Hour TAKE 1 TABLET TWICE A DAY 180 Tab 3 Clopidogrel Bisulfate 75 MG Oral Tablet (pLAVix) Take 1 Tab by mouth daily. 100 Tab 1 Isosorbide Mononitrate ER 120 MG Oral Tablet Extended Release 24 Hour TAKE 1 TABLET BY MOUTH EVERY MORNING 90 Tab 1 Losartan Potassium 50 MG Oral Tablet (Cozaar) Take 2 Tabs by mouth daily. 100 Tab 3 glipiZIDE ER 5 MG Oral Tablet Extended Release 24 Hour (glipiZIDE XL) Take 1 Tab by mouth 3 times a day. 270 Tab 3 Rosuvastatin Calcium 20 MG Oral Tablet (Crestor) Take 1 Tab by mouth daily. 90 Tab 4 amLODIPine Besylate 5 MG Oral Tablet (NORVASC) TAKE 1 TABLET BY MOUTH EVERY DAY 90 Tab 3 nitroglycerin (NITROSTAT) 0.4 MG SUBL DISSOLVE 1 TABLET UNDER THE TONGUE EVERY 5 MINUTES FOR CHEST PAIN. UP TO 3 DOSES IN 15 MINUTES. 25 Tab 1 isosorbide dinitrate (ISORDIL) 20 MG Tablet Take 1 Tab by mouth 3 times a day. at 8am, 12 noon and 4pm. 90 Tab 5 aspirin 81 MG chewable tablet Take 1 Tab by mouth daily. 34 Tab 11 ONE TOUCH ULTRA CONTROL SOLN check daily 1 11 ONE TOUCH ULTRA DICK check daily 1 0 ONE TOUCH ULTRA TEST STRP test daily 1 box 11 ONE TOUCH ULTRASOFT LANCETS MISC test daily 1 box 11 Past Medical History: Diagnosis Date Aortocoronary bypass status 12/06/2008 Benign neoplasm of colon 01/18 Chronic coronary artery disease 11/17/2008 Coronary atherosclerosis of [place] coronary artery DM type 2, goal A1c below 7 DM type 2, goal A1C to be determined (HCC) Dyslipidemia, goal LDL below 160 Dyslipidemia, goal LDL below 70 05/01/2009 Per Lipid Taxonomy. Enlarged aorta (HCC) 09/15/2009 Aortic root 4.4 cm 4..2009 echo at [facility]. HTN, goal below 130/80 06/14/2009 Per HTN Taxonomy. HTN, goal below 140/90 S/P angioplasty with stent drug eluting 09/15/09 Plavix x 12m Objective BP 122/64 (BP Site: Left Arm, BP Position: Sitting, BP Cuff Size: Regular) | Pulse 58 | Temp 36.3 C (97.3 F) (Tympanic) | Resp 14 | Ht 1.803 m (5' 11") | Wt 69.4 kg (153 lb) | BMI 21.34 kg/m | BSA 1.86 m Body mass index is 21.34 kg/m. BP Readings from Last 3 Encounters: 10/26/20 122/64 04/27/20 120/60 10/27/19 128/60 Wt Readings from Last 3 Encounters: 10/26/20 69.4 kg (153 lb) 04/27/20 72.7 kg (160 lb 6 oz) 10/27/19 67.6 kg (149 lb) Physical Exam Vitals signs and nursing note reviewed. Constitutional: General: He is not in acute distress. Appearance: Normal appearance. He is normal weight. He is not ill-appearing or toxic-appearing. HENT: Head: Normocephalic and atraumatic. Eyes: General: No scleral icterus. Extraocular Movements: Extraocular movements intact. Conjunctiva/sclera: Conjunctivae normal. Pupils: Pupils are equal, round, and reactive to light. Cardiovascular: Rate and Rhythm: Normal rate and regular rhythm. Heart sounds: No murmur. No friction rub. No gallop. Pulmonary: Effort: Pulmonary effort is normal. No respiratory distress. Breath sounds: Normal breath sounds. No wheezing, rhonchi or rales. Musculoskeletal: Right lower leg: No edema. Left lower leg: No edema. Neurological: General: No focal deficit present. Mental Status: He is alert and oriented to person, place, and time. Psychiatric: Mood and Affect: Mood normal. Behavior: Behavior normal. The following labs were reviewed today: BMP, Hemoglobin A1C, Lipid Panel and Urine Microalbumin Results for orders placed or performed in visit on 09/15/20 RENAL FUNCTION PANEL Result Value Ref Range BUN 28 (H) 6 - 20 mg/dL Creatinine 1.7 (H) 0.6 - 1.2 mg/dL Estimated Glomerular Filtration Rate 36.2 (L) >=60.0 mL/min Sodium 132 (L) 135 - 146 mmol/L Potassium 5.4 (H) 3.5 - 5.1 mmol/L Chloride 97 (L) 98 - 107 mmol/L CO2 23 22 - 32 mmol/L Anion Gap 12 7 - 15 mmol/L Glucose 411 (H) 70 - 120 mg/dL Calcium 9.6 8.4 - 10.2 mg/dL Albumin 4.3 3.8 - 5.0 g/dL Phosphorus 3.3 2.5 - 4.8 mg/dL LIPID PANEL WITH DIRECT LDL IF TG IS HIGH Result Value Ref Range Triglycerides 200 (H) <=174 mg/dL Cholesterol 116 <200 mg/dL HDL Cholesterol 42 >39 mg/dL Non-HDL Cholesterol 74 <=159 mg/dL HEMOGLOBIN A1C Result Value Ref Range Hemoglobin A1C 11.8 (H) 4.0 - 5.6 % Estimated Average Glucose 292 (H) <126 mg/dL CBC Result Value Ref Range WBC 5.82 4.00 - 10.80 K/uL RBC 3.81 (L) 4.50 - 5.25 M/uL HGB 12.7 (L) 14.0 - 16.8 g/dL HCT 36.7 (L) 40.0 - 48.4 % MCV 96.3 82.0 - 99.5 fL MCH 33.3 27.0 - 34.0 pg MCHC 34.6 32.0 - 36.0 g/dL RDW 12.2 11.5 - 15.5 % Plt 116 (L) 140 - 400 K/uL MPV 9.4 6.6 - 11.1 fL AUTOMATED ANALYZER WBC DIFFERENTIAL Result Value Ref Range WBC 5.82 4.00 - 10.80 K/uL Neutrophils % 62.3 40.0 - 75.0 % Lymphocytes % 25.6 18.0 - 42.0 % Monocytes % 10.3 1.0 - 11.0 % Eosinophils % 1.5 0.0 - 6.0 % Basophils % 0.3 0.0 - 2.0 % Absolute Neutrophils 3.62 1.80 - 7.70 K/uL Absolute Lymphocytes 1.49 1.00 - 4.80 K/ul Absolute Monocytes 0.60 0.00 - 1.10 K/uL Absolute Eosinophils 0.09 0.00 - 0.70 K/uL Absolute Basophils 0.02 0.00 - 0.20 K/uL PROTEIN/ CREATININE RATIO, URINE Result Value Ref Range Protein/ Creatinine Ratio, Urine 667 (H) <150 mg/g Protein, Random Urine 22 mg/dL Creatinine, Random Urine 33 mg/dL LDL CHOLESTEROL (DIRECT MEASURE) Result Value Ref Range LDL Cholesterol (Direct Measure) 52 <=129 mg/dL Assessment and plan Type 2 diabetes mellitus with stage 3b chronic kidney disease, without long-term current use of insulin (HCC) Extensive discussion on importance of BS control, aim for DM control with A1C goal <8%. Discussed limited effectiveness of various oral medications for diabetes and limitations due to renal disease. Recommend start basal insulin use. Patient remains hesistant due to needle use, does not want to take insulin. Discussed risks of uncontrolled DM including end organ damage and cardiovascular risks. He has appointment with MTM on 11/09, I have strongly encouraged him to keep this appointment and consider use of insulin - he agrees to think about use and discuss at that time. Of note, previously prescribed trulicity but pt was cost prohibitive, about $800/month. Hypertensive kidney disease with stage 3b chronic kidney disease Continue following with nephrology. Dyslipidemia, goal LDL below 70 Continue high intensity statin tx. Aortocoronary bypass status Chronic coronary artery disease Ongoing follow up with cardiology. OP CABG X 3 Follow up Follow Up: Return in about 3 months (around 01/26/2021) for f/u with physician PCP. | For: f/u with physician PCP Total time today including reviewing chart before the visit, pertinent labs, imaging reports, face to face time, and documentation time was 35-45 minutes. The above was discussed and understanding was expressed. China Navas PA-C documented in this encounter Nursing Notes * Quynh Reece CMA - 10/26/2020 9:09 AM EDT The patient has been properly identified by confirmation of name and date of . Chief Complaint Patient presents with Re-Check 6 mo f/u documented in this encounter Plan of Treatment Upcoming Encounters Date Type Specialty Care Team Description 11/09/2020 Office Visit [facility]acy [facility] [address] [place] [address] 01/26/2021 Office Visit Family Medicine Carola Arrington MD [address] [place] [address] [phone] 02/02/2021 Office Visit Cardiology Azael Lozano MD [address] [place] [address] [phone] Health Maintenance Due Date Last Done Comments COVID-19 Vaccine (1) 1947 Dexa Scan 1986 Zoster Vaccines (1 of 2) 1986 *DEPRESSION SCREENING,ANNUAL FOR PTS 12 AND OVER 04/29/2020 DIABETES-HGBA1C EVERY 6 MONTHS 03/17/2021 09/15/2020, 04/18/2020, [...] long-term current use of insulin (HCC)- Primary Hypertensive kidney disease with stage 3b chronic kidney disease Dyslipidemia, goal LDL below 70 Other and unspecified hyperlipidemia Aortocoronary bypass status Postsurgical aortocoronary bypass status Chronic coronary artery disease Coronary atherosclerosis of unspecified type of vessel, [place] or graft OP CABG X 3 Follow-up examination, following other surgery documented in this encounter Advance Directives Documents on File Type Date Recorded Patient Inventory Representative Expl anation Advanced Directive 11/15/2008 12:00 AM [...] the patient have Health Care Power of Pump And Still Operator? Yes, not currently available Full Code [...]
--- OUTSIDE RECORDS SUMMARY | 2023-02-21 02:44 | External Medical Summary | Summary of Care ---
Author Name Unknown Organization [place] [address] Care Team Providers Care Process Treater Name Role Phone Unavailable Primary Care Provider Unavailabl e Reason for Visit * Reason Comments Dosage Adjustment Via Phone (anticoag Cl inic) Diabetes Follow-Up Encounter Details Date Type Department Care Team Description 11/16/2020 Pharmacy Pharmacy, [facility] [address] [place] [address] [facility] [address] [address] Type 2 diabetes mellitus with stage 3b chronic kidney disease, without long-term current use of insulin ([facility])* Allergies No Known Active Allergiesdocumented as of this encounter (statuses as of 11/16/2020) Medications Medication Sig Dispensed Refills Start Date End Date Status ONE TOUCH ULTRA DEVIIndications:DM type 2, not at goal ([facility]) check daily 1 0 12/11/2005 Active ONE TOUCH ULTRA CONTROL SOLNIndications:DM type 2, not at goal ([facility]) check daily 1 11 12/11/2005 Active ONE TOUCH ULTRA TEST STRPIndications:DM type 2, not at goal ([facility]) test daily 1 box 11 12/11/2005 Active [...] mouth daily. 90 Tab 4 05/30/2020 Active Losartan Potassium 50 MG Oral Tablet [...] WITH BREAKFAST 90 Tab 1 09/28/2020 Active Lantus SoloStar 100 UNIT/ML Subcutaneous Solution Pen-injector (Insulin Glargine)Indications: Type 2 diabetes mellitus with stage 3b chronic kidney disease, without long-term current use of insulin (HCC),DM type 2, goal A1C to be determined ([facility]) Inject 10 Units under the skin daily. Or as directed 15 Each 3 11/09/2020 Active BD Pen Needle Emperatriz U/F 32G X 4 MM (Insulin Pen Needle)Indications:Ty pe 2 diabetes mellitus with stage 3b chronic kidney disease, without long-term current use of insulin (HCC),DM type 2, goal A1C to be determined (HCC) Use with insulin pen once daily 100 Each 1 11/09/2020 Active documented as of this encounter (statuses as of 11/16/2020) Active Problems Problem Noted Date Type 2 [...] as of this encounter (statuses as of 11/16/2020) Resolved Problems Problem Noted Date Resolved Date [...] root 4.4 cm 4.29.2009 echo at [facility]. HTN, goal below 130/80 06/14/2009 [...] Markers for Patients with Cardiovascular Disease Project #[id number] PI: Francoise Tomlin MD Please call [phone] with study related questions INTERFACED RESULT 11/17/2008 10/17/2011 GENOMICS CARDIO RESEARCH OTHER*[id number] 200806/25/2016 Overview: Renamed Per Clinical Trials Billing Project. Study Titile: Genomic Markers for Patients with Cardiovascular Disease Project #[id number] PI: Francoise Tomlin MD Please call [phone] with study related questions CLASS I-II ANGINA [...] as of this encounter (statuses as of 11/16/2020) Immunizations Name Administration Dates Next Due Pneumococcal [...] Comments:quit 30 yrs ago, wh ile in [employer] for 4 years Alcohol Use Drinks/Week oz/Week [...] of this encounter Progress Notes * Crystal Morgan RPh - 11/16/2020 10:53 AM EDT Patient Phone Numbers Spoke to patient via phone. Patient notes doing well with insulin at this time. Crystal Morgan, Pharm D Clinical Pharmacist 11/16/2020, 10:54 AM documented in this encounter Plan of Treatment Upcoming Encounters Date Type Specialty Care Team Description 12/15/2020 Laboratory [facility] [address] [place] [address] [phone] 12/22/2020 Office Visit [facility]acy [facility] [address] [place] [address] 01/26/2021 Office Visit Family Medicine Carola Arrington MD [address] [address] [phone] 02/02/2021 Office Visit Cardiology Azael Lozano MD [address] [address] [phone] Health Maintenance Due Date Last Done Comments COVID-19 Vaccine (1) 1947 Dexa Scan 1985 Zoster Vaccines (1 of 2) 1985 Influenza Vaccine (FLU shot) (#1) 2021 02/21/2020, 03/02/2019, 03/01/2018, Additional history exists DIABETES-HGBA1C EVERY 6 MONTHS 03/17/2021 09/15/2020, 04/18/2020, [...] Documents on File Type Date Recorded Patient Profiling Machine Operator Expl anation Advanced Directive 11/15/2008 [...] the patient have Health Care Power of Cold Patcher? Yes, not currently available Full Code 09/15/2009 [...]
--- OUTSIDE RECORDS SUMMARY | 2023-02-21 02:44 | External Medical Summary | Summary of Care ---
Author Name Unknown Organization [place] [address] Care Team Providers Care Child Support Specialist Name Role Phone Monty Dumont MD Primary Care Provide r Reason for Visit * Reason Comments Dosage Adjustment Via Phone (anticoag Cl inic) Encounter Details Date Type Department Care Team Description 09/28/2020 Pharmacy Pharmacy, [facility] [address] [place] [address] [facility] [address] [place] [address] 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)* Allergies No Known Active Allergiesdocumented as of this encounter (statuses as of 09/28/2020) Medications Medication Sig Dispensed Refills Start Date [...] as of this encounter (statuses as of 09/28/2020) Active Problems Problem Noted Date Type 2 [...] as of this encounter (statuses as of 09/28/2020) Resolved Problems Problem Noted Date Resolved Date [...] Aortic root 4.4 cm 4.29.2009 echo at [facility]. HTN, goal below 130/80 [...] Markers for Patients with Cardiovascular Disease Project #[id number] PI: Francoise Tomlin MD Please call [phone] with study related questions INTERFACED RESULT 11/17/2008 10/17/2011 GENOMICS CARDIO RESEARCH OTHER*[id number] 200806/25/2016 Overview: Renamed Per Clinical Trials Billing Project. Study Titile: Genomic Markers for Patients with Cardiovascular Disease Project #[id number] PI: Francoise Tomlin MD Please call [phone] with study related questions CLASS I-II ANGINA [...] as of this encounter (statuses as of 09/28/2020) Immunizations Name Administration Dates Next Due Pneumococcal Conjugate Vacc, 13 Valent (Prevnar) 01/18/2016 Pneumococcal Polysaccharide PPV23 (Pneumovax) 11/20/2004 Seasonal Influenza, Quadrivalent, ID 02/21/2020 Seasonal Influenza, Quadriva lent, No Preserve, 6 Mons & Above, IM 03/01/2018 Seasonal Influenza, Quadriva lent, No Preserve, IM 03/02/2017 Seasonal Influenza, Trivalen t, Adjuvanted, 65+ yrs 03/02/2019 Seasonal Influenza, Trivalen t, with Preserve, 3yr & Above, Split 02/16/2013,03/09/2012,01/30/2011,02/07,03/24/2008,05/21/2004 TDAP (age 10 and older)(Boostrix) 07/10/2012 documented as of this encounter Social History Tobacco Use Types Packs/Day Years Used Date Former Smoker Cigarettes 0.5 5 Quit: 05/19 Smokeless Tobacco: Never Used Comments:quit 30 yrs ago, wh ile in [employer] for 4 years Alcohol Use Drinks/Week oz/Week [...] of this encounter Progress Notes * Katarzyna Sawyer, [facility] - 09/28/2020 3:39 PM EDT Medication Therapy Disease Management - Diabetes Lab Results Component Value Date/Time HEMOGLOBIN A1C - [facility] 11.8 (H) 09/15/2020 10:32 AM HEMOGLOBIN A1C - [facility] 9.7 (H) 04/18/2020 08:29 AM Lab Results Component Value Date/Time ESTIMATED GLOMERULAR FILTRATION RATE - [facility] 36.2 (L) 09/15/2020 10:32 AM ESTIMATED GLOMERULAR FILTRATION RATE - [facility] 31.1 (L) 04/18/2020 08:29 AM ESTIMATED GLOMERULAR FILTRATION RATE - [facility] >60.0 07/13/2013 12:24 PM Patient Phone Numbers Current Diabetes Medications: Metformin 500 mg once daily Glipizide XL 5 mg TID Left voicemail requesting return call to discuss A1c results and determine next step in therapy. Recommend initiating basal insulin at 10 units daily. Will discontinue glipizide at that time and associate counsel patient on importance of testing his blood sugar. GLP1 likely not an option due to cost, in May pt reported Trulicity was $800 copay. Follow-up: At in person visit on 11/09/2020 Katarzyna Sawyer, [facility] Medication Therapy Disease Management 09/18/2020, 1:57 PM Ph. [phone] documented in this encounter Plan of Treatment Upcoming Encounters Date Type Specialty Care Team Description 10/26/2020 Office Visit Family Medicine China Navas PA-C [address] [place] [address] [phone] 11/09/2020 Office Visit Pharmacy [facility] [address] [place] [address] 02/02/2021 Office Visit Cardiology Azael Lozano MD [address] [place] [address] [phone] Health Maintenance Due Date Last Done Comments Dexa Scan 1986 Zoster Vaccines (1 of 2) 1985 *DEPRESSION SCREENING,ANNUAL FOR PTS 12 AND OVER 04/29/2020 CKD GFR USE SMARTSET 16769 03/17/202109/15, 06/21/2020, 04/18/2020, Additional history exists DIABETES-HGBA1C EVERY 6 MONTHS 03/17/2021 09/15/2020, 04/18/2020, 10/27/2019, Additional history exists COLONOSCOPY-EVERY 5 YRS AGES 18-100 03/20/2021 03/20/2016, 04/30/2010, 02/05/2002 Yearly B-12 04/18/2021 04/18/2020, 04/18, 05/01/2017 DIABETES-FOOT EXAM 04/27/2021 04/27/2020, 1 06/28/2018, 03/20/2018, Additional history exists DIABETES-EYE EXAM 08/16/2021 08/16/2020, , 04/15/2012, Additional history exists CKD HGB USE SMARTSET 06072 09/15/202109/15, 09/15/2020, 09/20/2019, Additional history exists CKD PHOS USE SMARTSET 77580 09/15/2021 04/, 04/18/2020, 04/27/2019, Additional history exists DTaP,Tdap,and Td Vaccines (2 - Td) 07/10/2022 07/10/2012 Pneumococcal Vaccine: 65+ Years Completed 01/18/2016, 11/20/2004 Influenza Vaccine (FLU shot) Completed 09/2019, 03/02/2019, 03/01/2018, Additional history exists MENINGOCOCCAL (MENACTRA/MENVEO) Aged Out No longer eligible based on patient's age to complete this topic documented as of this encounter Implants Not on filedocumented as of this encounter Visit Diagnoses Diagnosis 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)- Primary Type II or unspecified type diabetes mellitus with renal manifestations, not stated as uncontrolled documented in this encounter Advance Directives Documents on File Type Date Recorded Patient Artificial Teeth Inspector Expl anation Advanced Directive 11/15/2008 12:00 AM [...] patient have Health Care Power of Supervisor [employer]? Yes, not currently available Full Code 09/15/2009 [...]
--- OUTSIDE RECORDS SUMMARY | 2023-02-21 02:44 | External Medical Summary ---
Author Name Unknown Address Unknown Organization [facility] [employer] [address] [place] [address] Laboratory Report Ordering Provider Test Date Status LIYA GARRETT 01/26/2021 10:03:12 Final Observation Date Value Abnormality Reference (Units ) Status BUN 01/26/2021 10:03:12 29 Above high normal 6-20 (mg/dL) Final Creatinine 01/26/2021 10:03:12 1.4 Above high normal 0.6-1.2 (mg/dL) Final Glomerular filtration rate/1.73 sq M.predicted [Volume Rate/Area] in Serum, Plasma or Blood by Creatinine-based formula (CKD-EPI) 01/26/2021 10:03:12 47.0 Below low normal >=60.0 (mL/min) Final Performing Location [facility] [employer] [address] [place] [address]
--- OUTSIDE RECORDS SUMMARY | 2023-02-21 02:44 | External Medical Summary | Summary of Care ---
Author Name Unknown Organization [place] [address] Care Team Providers Care Admissions Manager Rn Name Role Phone Carola Arrington MD Primary Care Provider Reason for Visit * Reason Comments eRx-Medication Refill Encounter Details Date Type Department Care Team Description 12/20/2020 Refill Cardiology, [facility] [address] [facility] [place] [address] Azael Lozano MD [address] [place] [address] [phone] Allergies No Known Active Allergiesdocumented as of this encounter (statuses as of 12/20/2020) Medications Medication Sig Dispensed Refills Start Date [...] mouth daily. 90 Tab 4 05/30/2020 Active Isosorbide Mononitrate ER 120 MG Oral [...] goal A1C to be determined ([facility]) Inject 10 Units under the skin daily. 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 100 Tab 3 06/29/2020 1 Discontinued documented as of this encounter (statuses as of 12/20/2020) Active Problems Problem Noted Date Type 2 [...] as of this encounter (statuses as of 12/20/2020) Resolved Problems Problem Noted Date Resolved Date [...] Aortic root 4.4 cm 4.29.2009 echo at [facility]. HTN, goal below 130/80 06/14/2009 [...] Markers for Patients with Cardiovascular Disease Project #[id number] PI: Francoise Tomlin MD Please call [phone] with study related questions INTERFACED RESULT 11/17/2008 10/17/2011 GENOMICS CARDIO RESEARCH OTHER*[id number] 200806/25/2016 Overview: Renamed Per Clinical Trials Billing Project. Study Titile: Genomic Markers for Patients with Cardiovascular Disease Project #[id number] PI: Francoise Tomlin MD Please call [phone] with study related questions CLASS I-II ANGINA [...] as of this encounter (statuses as of 12/20/2020) Immunizations Name Administration Dates Next Due Pneumococcal [...] Comments:quit 30 yrs ago, wh ile in [place] for 4 years Alcohol Use Drinks/Week oz/Week [...] Telephone Encounter - Silvia Beaulieu RN - 12/20/2020 9:36 AM EDT Pending Prescriptions: Disp Refills Losartan Potassium 50 MG Oral Tablet (Coz*100 Tab3 Sig: TAKE 2 TABLETS BY MOUTH EVERY DAY * Telephone Encounter - Silvia Beaulieu RN - 12/20/2020 9:35 AM EDT Pending Prescriptions: Disp Refills Losartan Potassium 50 MG Oral Tablet (Coz*100 Tab3 Sig: TAKE 2 TABLETS BY MOUTH EVERY DAY Last Office/Telemedicine Visit: 06/21/2020 Next Office Visit: 02/02/2021 Scheduled Provider(s): Azael Lozano MD If no future appointments scheduled, and last appointment is greater than a year ago, please schedule patient for a follow-up appointment Last date the medication was ordered: Pharmacy[facility] [id number] [place] Is this request for a controlled substance?No Urine Drug Screen:No results found for this or any previous visit. Patient Phone Numbers Labs: Lab Results Component Value Date/Time CREAT 1.7 (H) 09/15/2020 10:32 AM CREAT 1.9 (H) 04/18/2020 08:29 AM POTASSIUM 5.4 (H) 09/15/2020 10:32 AM POTASSIUM 5.0 04/18/2020 08:29 AM TSH 2.56 06/21/2020 03:37 PM TSH 2.81 01/01/2017 01:44 PM LDLCALC 30 10/27/2019 09:03 AM LDLDIRECT 52 09/15/2020 10:32 AM LDLDIRECT NOT APPLICABLE 10/27/2019 09:03 AM LDLDIRECT 50 10/24/2016 11:50 AM ALT 23 04/18/2020 08:29 AM HGBA1C 11.1 (H) 12/15/2020 09:38 AM HGBA1C 9.7 (H) 04/18/2020 08:29 AM documented in this encounter Plan of Treatment Upcoming Encounters Date Type Specialty Care Team Description 12/22/2020 Office Visit Pharmacy [facility] [address] [place] [address] 01/26/2021 Office Visit Family Medicine Carola Arrington MD [address] [place] [address] [phone] 02/02/2021 Office Visit Cardiology Azael Lozano MD [address] [place] [address] [phone] Health Maintenance Due Date Last Done Comments [...] Documents on File Type Date Recorded Patient Doctor Of Osteopathy Expl anation Advanced Directive 11/15/2008 12:00 AM [...] the patient have Health Care Power of Lacquerer? Yes, not currently available Full Code 09/15/2009 [...]
--- OUTSIDE RECORDS SUMMARY | 2023-02-21 02:44 | External Medical Summary | Summary of Care ---
Author Name Unknown Organization [place] [address] Care Team Providers Care Record Clerk Salesperson Name Role Phone Carola Arrington MD Primary Care Provider Reason for Referral * Evaluate & Treat - Unlimited Visits (Within 30 days (routine)) Status Reason Specialty Diagnoses / Procedures Referred By Contact Referred To Contact Pending Review Specialty Services Required Dermatology Diagnoses History of melanoma in situ Carola Arrington MD [address] [place] [address] Question Answer Referral Priority Within 30 days (routine) Are you referring the patient for Mohs Surgery and have a current positive skin cancer biopsy result? No What is the reason for the patient referral? Return for previous melanoma Comments Hx melanoma and Moh's. Last had skin check 04/2018. Electronically signed by Carola Arrington MD at * Ancillary Services (Within 30 days (routine)) Status Reason Specialty Diagnoses / Procedures Referred By Contact Referred To Contact Pending Review Ancillary Services Required Gastroenterology Diagnoses Screening for colorectal cancer Carola Arrington MD [address] [email or web address] [address] Question Answer Referral Priority Within 30 days (routine) Comments ALERT: Do not order for pediatric patients (18 years or younger). Cancel off screen and order PEDS GASTROENTEROLOGY CONSULT (Type: 1 visit only-Evaluate and Treat) The following Pt. Instructions are available: - Gastro Colonoscopy Prep Instructions [36798] - Gastro Colonoscopy Prep Instructions (Setswana Version) [[id number]] Go to the Pt. Instructions section within the Visit Navigator to access. Colonoscopy ASGE Guidelines: Average risk screening (begin at age 50, 10 year intervals) ADDITIONAL INFORMATION 1. Is the patient on Coumadin? No 2. Is the patient on Pradaxa? No Electronically signed by Carola Arrington MD at Reason for Visit * Reason Onset Date Comments Follow Up Establish care, doing well with no concerns Ear Flush 01/26/2021 Encounter Details Date Type Department Care Team Description 01/26/2021 Office Visit Family [facility] [address] [place] [address] Carola Arrington MD [address] [place] [address] Type 2 diabetes mellitus with stage 3b chronic kidney disease, with long-term current use of insulin (HCC)*; Dyslipidemia, goal LDL below 70; Chronic kidney disease, stage 3b (HCC); Stable angina (HCC); Thrombocytopenia (HCC); History of melanoma in situ; Impacted cerumen, right ear; Screening for colorectal cancer Allergies No Known Active Allergiesdocumented as of [...] disease, without long-term current use of insulin ([facility]),DM type 2, goal A1C to be determined ([facility]) Use with insulin pen once daily 100 Each 1 11/09/2020 Active Losartan Potassium 50 MG Oral Tablet (Cozaar) TAKE 2 TABLETS BY MOUTH EVERY DAY 100 Tab 3 12/20/2020 Active Lantus SoloStar 100 UNIT/ML Subcutaneous Solution Pen-injector (Insulin Glargine)Indications: Type 2 diabetes mellitus with stage 3b chronic kidney disease, without long-term current use of insulin ([facility]),DM type 2, goal A1C to be determined ([facility]) Inject 15 Units under the [...] root 4.4 cm 4.29.2009 echo at [facility]. HTN, goal below 130/80 06/14/2009 2 Overview: Per HTN Taxonomy. Type 2 diabetes mellitus wit h hemoglobin A1c goal of less than 7.0% 03/02/2009 03/27/2011 Overview: Modified per Diabetes protocol #14. ICD-10 update of inactive term EXAMINATION OF PARTICIPANT IN CLINICAL TRIAL-gen omics 11/17/2008 09/01/2009 Overview: Renamed Per Clinical Trials Billing Project. Study Titile: Genomic Markers for Patients with Cardiovascular Disease Project #[id number] PI: Francoise Tomlin MD Please call [phone] with study related questions INTERFACED RESULT 11/17/2008 10/17/2011 GENOMICS CARDIO RESEARCH OTHER*[id number] 200806/25/2016 Overview: Renamed Per Clinical Trials Billing Project. Study Titile: Genomic Markers for Patients with Cardiovascular Disease Project #[id number] PI: Francoise Tomlin MD Please call [phone] with study related questions CLASS I-II ANGINA [...] Comments:quit 30 yrs ago, wh ile in [employer] for 4 years Alcohol Use Drinks/Week oz/Week [...] Sign Reading Time Taken Comments Blood Pressure 144/70 01/26/2021 8:54 AM EDT Pulse 51 01/26/2021 8:54 AM EDT Temperature 36.3 C (97.4 F) 01/26/2021 8:54 AM ED T Respiratory Rate - - Oxygen Saturation 99% 01/26/2021 8:54 AM EDT Inhaled Oxygen Concentration - - Weight 67.4 kg (148 lb 9.6 oz) 01/26/2021 8:54 A M EDT Height 180.3 cm (5' 11") 01/26/2021 8:54 AM EDT Body Mass Index 20.73 01/26/2021 8:54 AM EDT documented in this encounter Progress Notes * Marlen Riley MED ASSIST - 01/26/2021 9:44 AM EDT Ear Irrigation Procedure: Irrigation Solution: Up to 200 ml of solution may be instilled with one Procedure Solution Used: Water 180 ml/ Hydrogen Peroxide 20 ml (Mixed) Ear(s) Irrigated: Right Response: Particulate Returned and Patient Tolerated Well REGGIE Recinos * Carola Arrington MD - 01/26/2021 9:08 AM EDT Subjective Dirk Garcia is a 85 year old male that presents for Follow Up (Establish care, doing well with no concerns) and Ear Flush Diabetes: Lantus going okay. [place] not as bad as feared. Takes every day around 4:30pm. Hasn't noticed changes in how he feels. Nocturia 3-4x/night. No trouble with stream initiation. CAD/HTN/CABG: Sees Cardiology next week. Hasn't needed PRN nitroglycerin in over a month. Gets winded if walks too far. Rides stationary bike 2 miles/day. CKD: Hx electrolytes abnormalities with worsening DM control. Last BMP 08/2020. Saw Dr. Tello 06/2020, not scheduled for f/u. GI: 3 tubular adenoma on colonoscopy 2015, recommend repeat in 3 years. Skin: Has had moles removed from skin in past. History of melanoma in situ. Last saw Derm 2017. Bruises easily with blood thinners. Lives with of 50+ yrs. Two kids, one local, one in [place]. Going to see granddaughter's soccer game at [place] tomorrow. Has COVID vaccine. ROS: No lightheadedness/dizziness. No vision/hearing problems No teeth/mouth problems. Has been to dentist recently. No chest pain/palpitations No dyspnea Prune juice helps with regular bowel movements. Current Outpatient Medications Medication Instructions amLODIPine Besylate 5 MG Oral Tablet (NORVASC) TAKE 1 TABLET BY MOUTH EVERY DAY aspirin 81 mg, Oral, DAILY BD Pen Needle Emperatriz U/F 32G X 4 MM (Insulin Pen Needle) Use with insulin pen once daily clopidogrel (PLAVIX) 75 mg, Oral, DAILY Isosorbide Dinitrate (ISORDIL) 20 mg, Oral, TID, at 8am, 12 noon and 4pm. Isosorbide Mononitrate ER 120 MG Oral Tablet Extended Release 24 Hour TAKE 1 TABLET BY MOUTH EVERY MORNING Lantus SoloStar 15 Units, Subcutaneous, DAILY, Or as directed Losartan Potassium 50 MG Oral Tablet (Cozaar) TAKE 2 TABLETS BY MOUTH EVERY DAY metFORMIN HCl 500 MG Oral Tablet (Glucophage) TAKE 1 TABLET BY MOUTH EVERY DAY WITH BREAKFAST Metoprolol Succinate ER 25 MG Oral Tablet Extended Release 24 Hour (toPROL XL) TAKE 2 TABLETS BY MOUTH EVERY DAY nitroglycerin (NITROSTAT) 0.4 MG SUBL DISSOLVE 1 TABLET UNDER THE TONGUE EVERY 5 MINUTES FOR CHEST PAIN. UP TO 3 DOSES IN 15 MINUTES. ONE TOUCH ULTRA CONTROL SOLN check daily ONE TOUCH ULTRA DICK check daily ONE TOUCH ULTRA TEST STRP test daily ONE TOUCH ULTRASOFT LANCETS MISC test daily Ranolazine ER 1000 MG Oral Tablet Extended Release 12 Hour TAKE 1 TABLET TWICE A DAY rosuvastatin (CRESTOR) 20 mg, Oral, DAILY Review of patient's allergies indicates: No Known Allergies PMHx and problem list reviewed Objective BP 144/70 | Pulse 51 | Temp 36.3 C (97.4 F) | Ht 1.803 m (5' 11") | Wt 67.4 kg (148 lb 9.6 oz) | SpO2 99% | BMI 20.73 kg/m | BSA 1.84 m Body mass index is 20.73 kg/m. BP Readings from Last 3 Encounters: 01/26/21 144/70 10/26/20 122/64 04/27/20 120/60 Wt Readings from Last 3 Encounters: 01/26/21 67.4 kg (148 lb 9.6 oz) 10/26/20 69.4 kg (153 lb) 04/27/20 72.7 kg (160 lb 6 oz) Physical Exam Vitals signs and nursing note reviewed. Constitutional: General: He is not in acute distress. Appearance: Normal appearance. He is not ill-appearing. Comments: slender HENT: Head: Normocephalic and atraumatic. Right Ear: There is impacted cerumen. Left Ear: Tympanic membrane, ear canal and external ear normal. There is no impacted cerumen. Mouth/Throat: Mouth: Mucous membranes are moist. Pharynx: Oropharynx is clear. No oropharyngeal exudate. Eyes: General: No scleral icterus. Conjunctiva/sclera: Conjunctivae normal. Pupils: Pupils are equal, round, and reactive to light. Neck: Thyroid: No thyroid mass, thyromegaly or thyroid tenderness. Cardiovascular: Rate and Rhythm: Normal rate and regular rhythm. Heart sounds: No murmur. Pulmonary: Effort: Pulmonary effort is normal. Breath sounds: Normal breath sounds. Musculoskeletal: Right lower leg: No edema. Left lower leg: No edema. Lymphadenopathy: Cervical: No cervical adenopathy. Skin: General: Skin is warm and dry. Comments: [place]. Bruises on arms. Many nevi. Neurological: General: No focal deficit present. Mental Status: He is alert. Psychiatric: Mood and Affect: Mood normal. Behavior: Behavior normal. The following labs were reviewed today: B12, CBC, CMP, Hemoglobin A1C, Lipid Panel, TSH and Urine Microalbumin Assessment and plan Type 2 diabetes mellitus with stage 3b chronic kidney disease, with long-term current use of insulin (HCC) Working with MTM. Dyslipidemia, goal LDL below 70 On Statin, sees cardiology next week Chronic kidney disease, stage 3b (HCC) Recheck lytes. - Comprehensive Metabolic Panel; Future Stable angina (HCC) Sees cardiology next week Thrombocytopenia (HCC) Recheck today with labs. - CBC with WBC Differential and Anemia Reflex Workup; Future History of melanoma in situ Needs to see derm again. - DERMATOLOGY REFERRAL OP Impacted cerumen, right ear - Removal Impacted Cerumen Irrigation/Lavage, Unilat Screening for colorectal cancer - Colonoscopy, GI Referral OP Follow up Follow Up: Return in about 6 months (around 07/26/2021) for Return with Physician. | For: Return with Physician | Check-out note: Needs to get back on schedule with Dr Tello, last saw him 06/2020. Total time today including reviewing chart before the visit, pertinent labs, imaging reports, face to face time, and documentation time was 30-35 minutes. The above was discussed and understanding was expressed. Carola Arrington MD documented in this encounter Plan of Treatment Upcoming Encounters Date Type Specialty Care Team Description 01/26/2021 Laboratory Laboratory [facility] [address] [place] [address] [phone] Chronic kidney disease, stage 3b (HCC); Thrombocytopenia (HCC) 02/02/2021 Office Visit Cardiology Leonila Reaves CRNP [address] [place] [address] [phone] 04/27/2021 Office Visit Pharmacy [facility] [address] [place] [address] 06/06/2021 Office Visit Nephrology Washington Tello MD [address] [place] [address] [phone] 07/19/2021 Office Visit Dermatology Lyssa Gar MD [address] [place] [address] [phone] 07/27/2021 Office Visit Family Medicine Carola Arrington MD 132 [facility] [place] [address] [phone] Pending Results Name Type Priority Associated Diagnoses Date /Time COMPREHENSIVE METABOLIC PANEL Lab Routine Chronic kidney disease, stage 3b (HCC) 01/26/2021 10:03 AM EDT CBC WITH WBC DIFFERENTIAL AND ANEMIA REFLEX WORKUP Lab Routine Thrombocytopenia (HCC) 01/26/2021 10:03 AM EDT Scheduled Orders Name Type Priority Associated Diagnoses Orde r Schedule COMPREHENSIVE METABOLIC PANEL Lab Routine Chronic kidney disease, stage 3b (HCC) Expected: 01/26/2021, Expires: 01/26/2022 CBC WITH WBC DIFFERENTIAL AND ANEMIA REFLEX WORKUP Lab Routine Thrombocytopenia (HCC) Expected: 01/26/2021, Expires: 01/26/2022 REMOVAL IMPACTED CERUMEN IRRIGATION/LAVAGE, UNILAT Procedures Routine Impacted cerumen, right ear Ordered: 01/26/2021 Scheduled Referrals Name Type Priority Associated Diagnoses Orde r Schedule COLONOSCOPY, GI REFERRAL OP Referral Within 30 days (routine) Screening for colorectal cancer Ordered: 01/26/2021 DERMATOLOGY REFERRAL OP Referral Within 30 days (routine) History of melanoma in situ Ordered: 01/26/2021 Health Maintenance Due Date Last Done Comments [...] long-term current use of insulin (HCC)- Primary Dyslipidemia, goal LDL below 70 Other and unspecified hyperlipidemia Chronic kidney disease, stage 3b (HCC) Stable angina (HCC) Other and unspecified angina pectoris Thrombocytopenia (HCC) Thrombocytopenia, unspecified History of melanoma in situ Personal history of malignant melanoma of skin Impacted cerumen, right ear Screening for colorectal cancer Special screening for malignant neoplasms, colon Chronic kidney disease, stage 3b (HCC) Thrombocytopenia (HCC) Thrombocytopenia, unspecified documented in this encounter Advance Directives Documents on File Type Date Recorded Patient Center Sales And Service Associate Expl anation Advanced Directive 11/15/2008 12:00 AM [...] the patient have Health Care Power of Jd Edwards? Yes, not currently available Full Code 09/15/2009 [...]
--- OUTSIDE RECORDS SUMMARY | 2023-02-21 02:44 | External Medical Summary | Summary of Care ---
Author Name Unknown Organization [place] [address] Care Team Providers Care Central Station Operator Name Role Phone Monty Dumont MD Primary Care Provide r Reason for Visit * Reason Comments Diabetes Follow-Up Encounter Details Date Type Department Care Team Description 09/18/2020 Pharm[address], [facility] [address] [place] [address] [facility] [address] [place] [address] 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)* Allergies No Known Active Allergiesdocumented as of this encounter (statuses as of 09/18/2020) Medications Medication Sig Dispensed Refills Start Date [...] EVERY DAY 90 Tab 3 04/03/2020 Active metFORMIN HCl 500 MG Oral Tablet (GLUCOPHAGE) TAKE 1 TABLET BY MOUTH EVERY DAY WITH BREAKFAST 90 Tab 1 04/13/2020 Active Rosuvastatin Calcium 20 MG Oral Tablet [...] EVERY DAY 180 Tab 3 09/04/2020 Active documented as of this encounter (statuses as of 09/18/2020) Active Problems Problem Noted Date Hypertensive kidney disease with stage 3 b chronic kidney disease 03/27/2020 Overview: Per CKD protocol Stable angina 10/27/2019 History of colon polyps 09/08/2018 Diabetes mellitus with stage 3 chronic k idney disease 08/26/2017 Overview: Per CKD protocol #1 HTN, goal below 140/90 07/24/2015 Overview: Per [...] as of this encounter (statuses as of 09/18/2020) Resolved Problems Problem Noted Date Resolved Date Hypertensive kidney disease with chronic kidney disease stage III 12/10/2018 03/30/2020 Overview: Per CKD protocol HTN, GOAL BELOW 140/80 01/06/2012 6 Overview: Per HTN Protocol #27. Unstable angina 11/23/2011 10/24/2016 Chest pain 11/22/2011 10/24/2016 NSTEMI (non-ST elevated myocardial infarction) 0 11/22/2011 12/30/2016 Acute coronary syndrome 09/15/2009 10/25/19 17 Enlarged aorta 09/15/2009 04/27/2019 Overview: Aortic root 4.4 cm 4.29.2009 echo at [facility]. HTN, goal below 130/80 06/14/2009 [...] Markers for Patients with Cardiovascular Disease Project #[id number] PI: Francoise Tomlin MD Please call [phone] with study related questions INTERFACED RESULT 11/17/2008 10/17/2011 GENOMICS CARDIO RESEARCH OTHER*[id number] 200806/25/2016 Overview: Renamed Per Clinical Trials Billing Project. Study Titile: Genomic Markers for Patients with Cardiovascular Disease Project #[id number] PI: Francoise Tomlin MD Please call [phone] with study related questions CLASS I-II ANGINA [...] as of this encounter (statuses as of 09/18/2020) Immunizations Name Administration Dates Next Due Pneumococcal [...] Comments:quit 30 yrs ago, wh ile in [place] for 4 years Alcohol Use Drinks/Week oz/Week [...] this encounter Progress Notes * Katarzyna Sawyer, [facility] - 09/18/2020 1:50 PM EDT Medication Therapy Disease Management - Diabetes Hemoglobin AIC Results: Lab Results Component Value Date/Time HEMOGLOBIN A1C - [facility] 11.8 (H) 09/15/2020 10:32 AM HEMOGLOBIN A1C - [facility] 9.7 (H) 04/18/2020 08:29 AM HEMOGLOBIN A1C - [facility] 6.4 (H) 10/27/2019 09:03 AM HEMOGLOBIN A1C - [facility] 6.5 (H) 01/12/2019 02:01 PM Contacts Type Contact Phone 09/18/2020 01:54 PM EDT Phone (Outgoing) Dirk Garcia (Self) [phone] (H) Left Message Current Diabetes Medications: Metformin 500 mg once daily Glipizide XL 5 mg TID Called patient to discuss most recent A1c results and determine next step in therapy. Recommendation would be to initiate basal insulin at 10 units daily. Will need to DC glipizide and also guidance counselor patient on importance of testing his blood sugar. Could also revisit trulicity depending on patient'saffordability and deductible status. Patient to call back to discuss. Provided him with phone number. Follow up in 3 days or sooner. Katarzyna Sawyer PharmD [facility] Car Cooper Medication Therapy Disease Management 09/18/2020, 1:57 PM Ph. [phone] documented in this encounter Plan of Treatment Upcoming Encounters Date Type Specialty Care Team Description 09/21/2020 [facility] [address] [place] [address] 10/26/2020 Office Visit Family Medicine China Navas PA-C [address] [place] [address] [phone] 11/09/2020 Office Visit Pharmacy [facility] [address] [place] [address] 02/02/2021 Office Visit Cardiology Azael Lozano MD [address] [place] [address] [phone] Health Maintenance Due Date Last Done Comments Dexa Scan 1986 Zoster Vaccines (1 of 2) 1986 *DEPRESSION SCREENING,ANNUAL FOR PTS 12 AND OVER 04/29/2020 CKD GFR USE SMARTSET 93317 03/17/202109/15, 06/21/2020, 04/18/2020, Additional history exists DIABETES-HGBA1C EVERY 6 MONTHS 03/17/2021 09/15/2020, 04/18/2020, 10/27/2019, Additional history exists COLONOSCOPY-EVERY 5 YRS AGES 18-100 03/20/2021 03/20/2016, 04/30/2010, 02/05/2002 Yearly B-12 04/18/2021 04/18/2020, 04/18, 05/01/2017 DIABETES-FOOT EXAM 04/27/2021 04/27/2020, 1 06/28/2018, 03/20/2018, Additional history exists DIABETES-EYE EXAM 08/16/2021 08/16/2020, , 04/15/2012, Additional history exists CKD HGB USE SMARTSET 42886 09/15/202109/15, 09/15/2020, 09/20/2019, Additional history exists CKD PHOS USE SMARTSET 61120 09/15/2021 04/3 , 04/18/2020, 04/27/2019, Additional history exists DTaP,Tdap,and Td [...] Documents on File Type Date Recorded Patient Crank Hand Expl anation Advanced Directive 11/15/2008 12:00 AM [...] the patient have Health Care Power of Paint Laboratory Technician? Yes, not currently available Full Code [...]
--- OUTSIDE RECORDS SUMMARY | 2023-02-21 02:44 | External Medical Summary | Summary of Care ---
Author Name Unknown Organization [place] [address] Care Team Providers Care Geotechnical Engineer Name Role Phone Carola Arrington MD Primary Care Provider Reason for Visit * Reason Comments Dosage Adjustment In Person (Anticoag Cl inic) Diabetes Follow-Up Encounter Details Date Type Department Care Team Description 12/22/2020 Office Visit Pharmacy, [facility] [address] [place] [address] [facility] [address] [address] Type 2 diabetes mellitus with stage 3b chronic kidney disease, without long-term current use of insulin ([facility])*; DM type 2, goal A1C to be determined ([facility]) Allergies No Known Active Allergiesdocumented as of this encounter (statuses as of 12/22/2020) Medications Medication Sig Dispensed Refills Start Date End Date Status ONE TOUCH ULTRA DEVIIndications:DM type 2, not at goal ([facility]) check daily 1 0 12/11/2005 Active ONE TOUCH ULTRA CONTROL SOLNIndications:DM type 2, not at goal ([facility]) check daily 1 11 12/11/2005 Active ONE TOUCH ULTRA TEST STRPIndications:DM type 2, not at goal ([facility]) test daily 1 box 11 12/11/2005 Active ONE TOUCH ULTRASOFT LANCETS MISCIndications:DM type 2, not at goal ([facility]) test daily 1 box 11 [...] disease, without long-term current use of insulin ([facility]),DM type 2, goal A1C to be determined ([facility]) Use with insulin pen [...] as directed 15 Each 3 12/22/2020 Active Lantus SoloStar 100 UNIT/ML Subcutaneous Solution Pen-injector (Insulin Glargine)Indicatio ns:Type 2 diabetes mellitus with stage 3b chronic kidney disease, without long-term current use of insulin (HCC),DM type 2, goal A1C to be determined (HCC) Inject 10 Units under the skin daily. Or as directed 15 Each 3 11/09/2020 12/22/2020 Discontinued (Refill) documented as of this encounter (statuses as of 12/22/2020) Active Problems Problem Noted Date Type 2 [...] as of this encounter (statuses as of 12/22/2020) Resolved Problems Problem Noted Date Resolved Date [...] Aortic root 4.4 cm 4.29.2009 echo at [facility]. HTN, goal below 130/80 06/14/2009 2 Overview: [...] # PI: Francoise Tomlin MD Please call [phone] with study related questions INTERFACED RESULT 11/17/2008 10/17/2011 GENOMICS CARDIO RESEARCH OTHER*[id number] 200806/25/2016 Overview: Renamed Per Clinical Trials Billing Project. Study Titile: Genomic Markers for Patients with Cardiovascular Disease Project # PI: Francoise Tomlin MD Please call [phone] with study related questions CLASS I-II ANGINA [...] as of this encounter (statuses as of 12/22/2020) Immunizations Name Administration Dates Next Due Pneumococcal [...] in [employer] for 4 years Alcohol Use Drinks/Week oz/Week [...] this encounter Progress Notes * Crystal Morgan, [facility] - 12/22/2020 9:41 AM EDT Medication Therapy Disease Management Clinic - Diabetes Management Progress Note Dirk Garcia, identified by name and date of , is a 85 year old male being seen for diabetes management/education. Patient presents for return diabetic visit. DIABETES: Current diabetic medications: Metformin 500 mg once daily Start Lantus 10 units daily eGFR 36.2 mL/min 09/15/20 Medication [...] Results Component Value Date/Time CREATININE - [facility] 1.7 (H) 09/15/2020 10:32 AM CREATININE - [facility] 1.9 (H) 06/21/2020 03:37 PM CREATININE - [facility] 1.9 (H) 04/18/2020 [...] yes BP Readings from Last 3 Encounters: 10/26/20 122/64 04/27/20 120/60 10/27/19 128/60 Blood pressure at goal: yes HYPERLIPIDEMIA: Patient is taking moderate or high intensity statin: yes HEALTH MAINTENANCE REVIEW: Health Maintenance Due Topic Date Due COVID-19 Vaccine (1) Never done Dexa Scan Never done Zoster Vaccines (1 of 2) Never done COLONOSCOPY-EVERY 5 YRS AGES 18-100 03/20/2021 ASSESSMENT & PLAN: ICD-10-CM 1. Type 2 diabetes mellitus with stage 3b chronic kidney disease, without long- term current use of insulin ([facility]) E11.22 N18.32 BG Readings Blood sugars uncontrolled. A1c elevated again to 11.1% Medications Reviewed current regimen, patient is adherent to regimen. Recommending to increase insulin to 15 units at this time, patient is agreeable. Diet, Exercise, Lifestyle No significant lifestyle changes since last visit. Discussed with patient. Patient is agreeable to SMBG 0 time(s) daily. Patient aware to contact clinic if any hypoglycemia before next visit. MEDICATION CHANGES: yes, see below; preferred pharmacy: [facility] Medications: Metformin 500 mg once daily INCREASE: Lantus 15 units daily eGFR 36.2 mL/min 09/15/20 HEALTH MAINTENANCE INTERVENTIONS: Labs: Up to Date Immunizations: Up to Date Foot Exam: Up to Date Eye Exam: Up to Date Annual Wellness Visit: Patient Declines FOLLOW UP: Return to clinic in 12 weeks Next Office Visit: 04/27/2021 Scheduled Provider(s): [facility] Crystal Morgan RPh Clinical Pharmacist - Lithoplate Maker Medication Therapy Management Clinic 12/22/2020, 9:41 AM documented in this encounter Plan of Treatment Upcoming Encounters Date Type Specialty Care Team Description 01/26/2021 Office Visit Family Medicine Carola Arrington MD [address] [place] [address] [phone] 02/02/2021 Office Visit Cardiology Azael Lozano MD [address] [place] [address] [phone] 04/27/2021 Office Visit Pharmacy [facility] [address] [place] [address] Scheduled Orders Name Type Priority Associated Diagnoses Orde r Schedule HEMOGLOBIN A1C Lab Routine Type 2 diabetes mellitus with stage 3b chronic kidney disease, without long-term current use of insulin (HCC) Expected: 03/24/2021 (Approximate), Expires: 12/22/2021 Health Maintenance Due Date Last Done Comments [...] Documents on File Type Date Recorded Patient Line Service Supervisor Expl anation Advanced Directive 11/15/2008 12:00 AM [...] patient have Health Care Power of Director Software? Yes, not currently available Full Code 09/15/2009 [...]
--- OUTSIDE RECORDS SUMMARY | 2023-02-21 02:44 | External Medical Summary | Summary of Care ---
Author Name Unknown Organization [place] [address] Care Team Providers Care Components Engineer Name Role Phone Monty Dumont MD Primary Care Provide r Reason for Visit * Reason Onset Date Comments Test Results 09/18/2020 Encounter Details Date Type Department Care Team Description 09/18/2020 Telephone [facility]rology[facility] [address] [place] [address] Washingotn Tello MD [address] [place] [address] [phone] Test Results Allergies No Known Active Allergiesdocumented as of this encounter (statuses as of 09/20/2020) Medications Medication Sig Dispensed Refills Start Date [...] as of this encounter (statuses as of 09/20/2020) Active Problems Problem Noted Date Hypertensive kidney [...] as of this encounter (statuses as of 09/20/2020) Resolved Problems Problem Noted Date Resolved Date [...] Aortic root 4.4 cm 4.29.2009 echo at [facility]. HTN, goal below 130/80 [...] Markers for Patients with Cardiovascular Disease Project #[id number] PI: Francoise Tomlin MD Please call [phone] with study related questions INTERFACED RESULT 11/17/2008 10/17/2011 GENOMICS CARDIO RESEARCH OTHER*[id number] 200806/25/2016 Overview: Renamed Per Clinical Trials Billing Project. Study Titile: Genomic Markers for Patients with Cardiovascular Disease Project #[id number] PI: Francoise Tomlin MD Please call [phone] with study related questions CLASS I-II ANGINA [...] as of this encounter (statuses as of 09/20/2020) Immunizations Name Administration Dates Next Due Pneumococcal [...] encounter Miscellaneous Notes * Telephone Encounter - Kaylynn Pinto OSA - 09/20/2020 10:47 AM EDT Patient has been notified of the message. Patient has no further questions. * Telephone Encounter - Jimena Duncan RN - 09/19/2020 3:23 PM EDT Another message left for pt * Telephone Encounter - Jimena Duncan RN - 09/18/2020 1:32 PM EDT Message left for pt. Dr Tello has reviewed his labs. His kidney function is stable His sodium is low and potassium is high because his blood sugar is so high (411). His A1C is up to 11.8. He needs to keep working with the [facility] pharmacist to get his blood sugars under better control * Telephone Encounter - Jimena Duncan RN - 09/18/2020 1:29 PM EDT ----- Message from [place] Tello MD sent at 09/18/2020 12:50 PM EDT ----- Sodium low and k high because glu is 400+. With such high glu level sodium and k gets abnormal. Need better glu control. Renal function stable. Continue same for now documented in this encounter Plan of Treatment Upcoming Encounters Date Type Specialty Care Team Description 09/21/2020 [facility] [address] [place] [address] 10/26/2020 Office Visit Family Medicine China Navas PA-C [address] [place] [address] [phone] 11/09/2020 [facility] [address] [place] [address] 02/02/2021 Office Visit Cardiology Azael Lozano MD [address] [place] [address] [phone] Health Maintenance Due Date Last Done Comments Dexa Scan 1986 Zoster Vaccines (1 of 2) 1986 *DEPRESSION SCREENING,ANNUAL FOR PTS 12 AND OVER 04/29/2020 CKD GFR USE SMARTSET 92638 03/17/202109/15, 06/21/2020, 04/18/2020, Additional history exists DIABETES-HGBA1C EVERY 6 MONTHS 03/17/2021 09/15/2020, 04/18/2020, 10/27/2019, Additional history exists COLONOSCOPY-EVERY 5 YRS AGES 18-100 03/20/2021 03/20/2016, 04/30/2010, 02/05/2002 Yearly B-12 04/18/2021 04/18/2020, 04/18, 05/01/2017 DIABETES-FOOT EXAM 04/27/2021 04/27/2020, 1 06/28/2018, 03/20/2018, Additional history exists DIABETES-EYE EXAM 08/16/2021 08/16/2020, , 04/15/2012, Additional history exists CKD HGB USE SMARTSET 53888 09/15/202109/15, 09/15/2020, 09/20/2019, Additional history exists CKD PHOS USE SMARTSET 67251 09/15/2021 04/, 04/18/2020, 04/27/2019, Additional history exists [...] Documents on File Type Date Recorded Patient Transferrer Expl anation Advanced Directive 11/15/2008 12:00 AM [...] the patient have Health Care Power of Production Quality Analyst? Yes, not currently available Full Code 09/15/2009 [...]
--- OUTSIDE RECORDS SUMMARY | 2023-02-21 02:44 | External Medical Summary | Summary of Care ---
Author Name Unknown Organization [place] [address] Care Team Providers Care Patternmaker Plaster Name Role Phone Unavailable Primary Care Provider Unavailabl e Reason for Visit * Reason Onset Date Comments Appointment 11/06/2020 Encounter Details Date Type Department Care Team Description 11/06/2020 Telephone NephrologyMac[facility] [address] [place] [address] Washington Tello MD [address] [place] [address] [phone] Appointment Allergies No Known Active Allergiesdocumented as of this encounter (statuses as of 11/13/2020) Medications Medication Sig Dispensed Refills Start Date [...] 5 01/20/2018 Active nitroglycerin (NITROSTAT) 0.4 MG SUBLIndications:Chr onic coronary artery disease DISSOLVE 1 TABLET UNDER THE TONGUE EVERY 5 MINUTES FOR CHEST PAIN. UP TO 3 DOSES IN 15 MINUTES. 25 Tab 1 11/17/2018 Active amLODIPine Besylate 5 MG Oral Tablet (NORVASC)Indication s:HTN, goal below 130/80 TAKE 1 TABLET [...] Oral Tablet Extended Release 24 Hour (toPROL XL)Indications:Hand Inserter Operator shanique coronary artery disease,Aortocorona ry bypass status,HTN, goal below 140/90 TAKE 2 TABLETS BY MOUTH EVERY DAY 180 Tab 3 09/04/2020 Active metFORMIN HCl 500 MG Oral Tablet (Glucophage) TAKE 1 TABLET BY MOUTH EVERY DAY WITH BREAKFAST 90 Tab 1 09/28/2020 Active glipiZIDE ER 5 MG Oral Tablet Extended Release 24 Hour (glipiZIDE XL) Take 1 Tab by mouth 3 times a day. 270 Tab 3 06/26/2020 11/09/2020 Discontinued (End of Procedure) documented as of this encounter (statuses as of 11/13/2020) Active Problems Problem Noted Date Type 2 [...] as of this encounter (statuses as of 11/13/2020) Resolved Problems Problem Noted Date Resolved Date [...] Aortic root 4.4 cm 4.29.2009 echo at [facility]. HTN, goal below 130/80 06/14/2009 2 Overview: Per HTN Taxonomy. Type 2 diabetes mellitus wit h hemoglobin A1c goal of less than 7.0% 03/02/2009 03/27/2011 Overview: Modified per Diabetes protocol #14. ICD-10 update of inactive term EXAMINATION OF PARTICIPANT IN CLINICAL TRIAL-gen omics 11/17/2008 09/01/2009 Overview: Renamed Per Clinical Trials Billing Project. Study Titile: Genomic Markers for Patients with Cardiovascular Disease Project #[id number] PI: Francoise Tomlin MD Please call [phone] with study related questions INTERFACED RESULT 11/17/2008 10/17/2011 GENOMICS CARDIO RESEARCH OTHER*[id number] 200806/25/2016 Overview: Renamed Per Clinical Trials Billing Project. Study Titile: Genomic Markers for Patients with Cardiovascular Disease Project #[id number] PI: Francoise Tomlin MD Please call [phone] with study related questions CLASS I-II ANGINA [...] as of this encounter (statuses as of 11/13/2020) Immunizations Name Administration Dates Next Due Pneumococcal [...] Comments:quit 30 yrs ago, wh ile in [employer] for 4 years Alcohol Use Drinks/Week oz/Week [...] Miscellaneous Notes * Telephone Encounter - Crystal Woo OSA - 11/13/2020 10:18 AM EDT LM to schedule from recall list. * Telephone Encounter - Crystal Mcintyre OSA - 11/06/2020 2:44 PM EDT LM to schedule from recall list. documented in this encounter Plan of Treatment Upcoming Encounters Date Type Specialty Care Team Description 11/16/2020 Pharmacy [facility] [address] [place] [address] 12/15/2020 [facility] [place] [address] [phone] 12/22/2020 Office Visit [facility] [address] [place] [address] 01/26/2021 Office Visit Family Medicine Carola Arrington MD [address] [place] [address] [phone] 02/02/2021 Office Visit Cardiology Azael Lozano MD [address] [place] [address] [phone] Health Maintenance Due Date Last Done Comments [...] Documents on File Type Date Recorded Patient Cutter Brake Lining Expl anation Advanced Directive 11/15/2008 12:00 AM [...] the patient have Health Care Power of Middleware Solutions Architect? Yes, not currently available Full Code 09/15/2009 [...]
--- OUTSIDE RECORDS SUMMARY | 2023-02-21 02:44 | External Medical Summary | Summary of Care ---
Author Name Unknown Organization [place] [address] Care Team Providers Care Home Energy Rater Name Role Phone Monty Dumont MD Primary Care Provide r Reason for Visit * Reason Comments eRx-Medication Refill Encounter Details Date Type Department Care Team Description 09/28/2020 [facility]ill [facility] [address] [facility] [address] Monty Dumont MD [address] [place] [address] [place] [address] Allergies No Known Active Allergiesdocumented as of [...] TEST STRPIndications:DM type 2, not at goal ([facility]) test daily 1 box 11 12/11/2005 Active [...] WITH BREAKFAST 90 Tab 1 09/28/2020 Active metFORMIN HCl 500 MG Oral Tablet (GLUCOPHAGE) TAKE 1 TABLET BY MOUTH EVERY DAY WITH BREAKFAST 90 Tab 1 04/13/2020 09/28/2020 Discontinued documented as of this encounter (statuses [...] Aortic root 4.4 cm 4.29.2009 echo at [facility]. HTN, goal below 130/80 [...] Markers for Patients with Cardiovascular Disease Project #[id number] PI: Francoise Tomlin MD Please call [phone] with study related questions INTERFACED RESULT 11/17/2008 10/17/2011 GENOMICS CARDIO RESEARCH OTHER*[id number] 200806/25/2016 Overview: Renamed Per Clinical Trials Billing Project. Study Titile: Genomic Markers for Patients with Cardiovascular Disease Project #[id number] PI: Francoise Tomlin MD Please call [phone] with study related questions CLASS I-II ANGINA [...] Comments:quit 30 yrs ago, wh ile in [employer] for 4 years Alcohol Use Drinks/Week oz/Week [...] encounter Miscellaneous Notes * Telephone Encounter - Katarzyna Sawyer RP - 09/28/2020 1:32 PM EDT Signed Prescriptions: Disp Refills metFORMIN HCl 500 MG Oral Tablet (Glucopha*90 Tab 1 Sig: TAKE 1 TABLET BY MOUTH EVERY DAY WITH BREAKFAST Authorizing Provider: CHINA NAVAS Ordering User: KATARZYNA SAWYER * Telephone Encounter - Ilene [place] [facility] - 09/28/2020 12:39 PM EDT Pending Prescriptions: Disp Refills metFORMIN HCl 500 MG Oral Tablet (Glucoph*90 Tab 1 Sig: TAKE 1 TABLET BY MOUTH EVERY DAY WITH BREAKFAST documented in this encounter Plan of Treatment Upcoming Encounters Date Type Specialty Care Team Description 09/28/2020 Pharmacy Pharmacy [facility] [address] [place] [address] 10/26/2020 Office Visit Family Medicine China Navas PA-C [address] [place] [address] [phone] 11/09/2020 Office Visit Pharmacy [facility] [address] [place] [address] 02/02/2021 Office Visit Cardiology Azael Lozano MD [address] [place] [address] [phone] Health Maintenance Due Date Last Done Comments Dexa Scan 1986 Zoster Vaccines (1 of 2) 1986 *DEPRESSION SCREENING,ANNUAL FOR PTS 12 AND OVER 04/29/2020 CKD GFR USE SMARTSET 38566 03/17/202109/15, 06/21/2020, 04/18/2020, Additional history exists DIABETES-HGBA1C EVERY 6 MONTHS 03/17/2021 09/15/2020, 04/18/2020, 10/27/2019, Additional history exists COLONOSCOPY-EVERY 5 YRS AGES 18-100 03/20/2021 03/20/2016, 04/30/2010, 02/05/2002 Yearly B-12 04/18/2021 04/18/2020, 04/18, 05/01/2017 DIABETES-FOOT EXAM 04/27/2021 04/27/2020, 1 06/28/2018, 03/20/2018, Additional history exists DIABETES-EYE EXAM 08/16/2021 08/16/2020, , 04/15/2012, Additional history exists CKD HGB USE SMARTSET 52291 09/15/202109/15, 09/15/2020, 09/20/2019, Additional history exists CKD PHOS USE SMARTSET 74943 09/15/2021 04/3 , 04/18/2020, 04/27/2019, Additional history [...] Documents on File Type Date Recorded Patient Dip Guider Stoves Expl anation Advanced Directive 11/15/2008 12:00 AM [...] the patient have Health Care Power of Brim And Crown Presser? Yes, not currently available Full Code 09/15/2009 [...]
--- OUTSIDE RECORDS SUMMARY | 2023-02-21 02:44 | External Medical Summary | Summary of Care ---
Author Name Unknown Organization [place] [address] Care Team Providers Care Relay Shop Supervisor Name Role Phone Carola Arrington MD Primary Care Provider Reason for Visit * Reason Comments eRx-Medication Refill Encounter Details Date Type Department Care Team Description 12/26/2020 Refill Family Practice [facility] [address] [facility] [place] [address] Monty Dumont MD [address] [place] [address] [place] [address] Allergies No Known Active Allergiesdocumented as of this encounter (statuses as of 12/27/2020) Medications Medication Sig Dispensed Refills Start Date [...] to be determined ([facility]) Inject 15 Units under the skin daily. Or as directed 15 Each 3 12/22/2020 Active Isosorbide Mononitrate ER 120 MG Oral Tablet Extended Release 24 Hour TAKE 1 TABLET BY MOUTH EVERY MORNING 90 Tab 1 12/27/2020 Active Isosorbide Mononitrate ER 120 MG Oral Tablet Extended Release 24 Hour TAKE 1 TABLET BY MOUTH EVERY MORNING 90 Tab 1 07/12/2020 Discontinued documented as of this encounter (statuses as of 12/27/2020) Active Problems Problem Noted Date Type 2 [...] as of this encounter (statuses as of 12/27/2020) Resolved Problems Problem Noted Date Resolved Date [...] Markers for Patients with Cardiovascular Disease Project #[id number] PI: Francoise Tomlin MD Please call [phone] with study related questions INTERFACED RESULT 11/17/2008 10/17/2011 GENOMICS CARDIO RESEARCH OTHER*[id number] 200806/25/2016 Overview: Renamed Per Clinical Trials Billing Project. Study Titile: Genomic Markers for Patients with Cardiovascular Disease Project #[id number] PI: Francoise Tomlin MD Please call [phone] with study related questions CLASS I-II ANGINA [...] as of this encounter (statuses as of 12/27/2020) Immunizations Name Administration Dates Next Due Pneumococcal [...] Comments:quit 30 yrs ago, wh ile in [employer] for 4 years Alcohol Use Drinks/Week [...] Miscellaneous Notes * Telephone Encounter - Ta Amador [facility] - 12/27/2020 1:27 PM EDT Signed Prescriptions: Disp Refills Isosorbide Mononitrate ER 120 MG Oral Tabl*90 Tab 1 Sig: TAKE 1 TABLET BY MOUTH EVERY MORNINGAuthorizing Provider: PATRICK LANDRY User: TA AMADOR documented in this encounter Plan of Treatment Upcoming Encounters Date Type Specialty Care Team Description 01/26/2021 Office Visit Family Medicine Carola Arrington MD [address] [place] [address] 02/02/2021 Office Visit Cardiology Azael Lozano MD [address] [place] [id number] 04/27/2021 Office Visit Pharmacy [facility] [address] [place] [address] Health Maintenance [...] on File Type Date Recorded Patient Security Monitor Expl anation Advanced Directive 11/15/2008 12:00 AM [...] the patient have Health Care Power of Fire Prevention Research Engineer? Yes, not currently available Full Code 09/15/2009 [...]
--- OUTSIDE RECORDS SUMMARY | 2023-02-21 02:44 | External Medical Summary ---
Author Name Unknown Address Unknown Organization K01:[facility] [place] [address] [place] [address] Laboratory Report Ordering Provider Test Date Status LIYA GARRETT 01/26/2021 10:03:12 Final Observation Date Value Abnormality Reference (Units ) Status WBC, Total 01/26/2021 10:03:12 6.37 4.00-10.8 0 (K/uL) Final RBC 01/26/2021 10:03:12 4.09 Below low normal 4.5 0-5.25 (M/uL) Final Hemoglobin 01/26/2021 10:03:12 13.8 Below low normal 14 .0-16.8 (g/dL) Final Performing Location [facility] [place] [address] [place] [address]
--- OUTSIDE RECORDS SUMMARY | 2023-02-21 02:44 | External Medical Summary | Summary of Care ---
Author Name Unknown Organization [place] [address] Care Team Providers Care Customer Support Agent Name Role Phone Monty Dumont MD Primary Care Provide r Reason for Visit * Reason Comments Dosage Adjustment Via Phone (anticoag Cl inic) Encounter Details Date Type Department Care Team Description 09/21/2020 Pharmacy Pharmacy, [facility] [address] [facility] [place] [address] [facility] [address] [place] [address] 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)* Allergies No Known Active Allergiesdocumented as of this encounter (statuses as of 09/21/2020) Medications Medication Sig Dispensed Refills Start Date [...] as of this encounter (statuses as of 09/21/2020) Active Problems Problem Noted Date Hypertensive kidney [...] as of this encounter (statuses as of 09/21/2020) Resolved Problems Problem Noted Date Resolved Date [...] root 4.4 cm 4.29.2009 echo at [facility]. HTN, goal below 130/80 06/14/2009 2 Overview: Per HTN Taxonomy. Type 2 diabetes mellitus wit h hemoglobin A1c goal of less than 7.0% 03/02/2009 03/27/2011 Overview: Modified per Diabetes protocol #14. ICD-10 update of inactive term EXAMINATION OF PARTICIPANT IN CLINICAL TRIAL-gen omics 11/17/2008 09/01/2009 Overview: Renamed Per Clinical Trials Billing Project. Study Titile: Genomic Markers for Patients with Cardiovascular Disease Project #[id number] PI: Francoise Tomlin MD Please call [phone] with study related questions INTERFACED RESULT 11/17/2008 10/17/2011 GENOMICS CARDIO RESEARCH OTHER*[id number] 200806/25/2016 Overview: Renamed Per Clinical Trials Billing Project. Study Titile: Genomic Markers for Patients with Cardiovascular Disease Project #[id number] PI: Francoise Tomlin MD Please call [phone] with study related questions CLASS I-II ANGINA PECTORIS, STABLE 04/26/2002 09/15/2009 Mixed dyslipidemia 04/26/2002 05/01/2009 Overview: Per Lipid Taxonomy. BENIGN NEOPLASM LG BOWEL 01/17/2002 019 HTN, goal below 140/90 08/23/1998 0 Overview: Per HTN Taxonomy. DM type 2, not at goal 08/23/1998 10200 9 Overview: Modified per Diabetes protocol #14. THREE VESSEL ATHEROSCLEROTIC CORONARY DISEASE 09/15/2009 Dyslipidemia, goal LDL below 160 07/13/2013 documented as of this encounter (statuses as of 09/21/2020) Immunizations Name Administration Dates Next Due Pneumococcal [...] Comments:quit 30 yrs ago, wh ile in [place] for 4 years Alcohol Use Drinks/Week oz/Week [...] as of this encounter Progress Notes * Verena Mireles [facility] - 09/21/2020 11:29 AM EDT Medication Therapy Disease Management - Diabetes Contacts Type Contact Phone 09/21/2020 11:29 AM EDT Phone (Outgoing) Dirk Garcia (Self) [phone] (H) Left Message Lab Results Component Value Date/Time HEMOGLOBIN A1C - [facility] 11.8 (H) 09/15/2020 10:32 AM HEMOGLOBIN A1C - [facility] 9.7 (H) 04/18/2020 08:29 AM Lab Results Component Value Date/Time ESTIMATED GLOMERULAR FILTRATION RATE - [facility] 36.2 (L) 09/15/2020 10:32 AM ESTIMATED GLOMERULAR FILTRATION RATE - [facility] 31.1 (L) 04/18/2020 08:29 AM ESTIMATED GLOMERULAR FILTRATION RATE - [facility] >60.0 07/13/2013 12:24 PM Current Diabetes Medications: Metformin 500 mg once daily Glipizide XL 5 mg TID Left voicemail requesting return call to discuss A1c results and determine next step in therapy. Recommend initiating basal insulin at 10 units daily. Will discontinue glipizide at that time and deputy county counsel patient on importance of testing his blood sugar. GLP1 likely not an option due to cost, in May pt reported Trulicity was $800 copay. Follow-up: 1 week if no return call prior Verena Mireles PharmD Clinical Pharmacist 09/21/2020, 11:30 AM documented in this encounter Plan of Treatment Upcoming Encounters Date Type Specialty Care Team Description 09/28/2020 Pharmacy Pharmacy [facility] [address] [place] [address] 10/26/2020 Office Visit Family Medicine China Navas PA-C [address] [place] [address] [phone] 11/09/2020 Office Visit Pharmacy [facility] [address] [place] [address] 02/02/2021 Office Visit Cardiology Azael Lozano MD [address] [place] [address] [phone] Health Maintenance Due Date Last Done Comments Dexa Scan 1986 Zoster Vaccines (1 of 2) 1986 *DEPRESSION SCREENING,ANNUAL FOR PTS 12 AND OVER 04/29/2020 CKD GFR USE SMARTSET 10808 03/17/202109/15, 06/21/2020, 04/18/2020, Additional history exists DIABETES-HGBA1C EVERY 6 MONTHS 03/17/2021 09/15/2020, 04/18/2020, 10/27/2019, Additional history exists COLONOSCOPY-EVERY 5 YRS AGES 18-100 03/20/2021 03/20/2016, 04/30/2010, 02/05/2002 Yearly B-12 04/18/2021 04/18/2020, 04/18, 05/01/2017 DIABETES-FOOT EXAM 04/27/2021 04/27/2020, 1 06/28/2018, 03/20/2018, Additional history exists DIABETES-EYE EXAM 08/16/2021 08/16/2020, , 04/15/2012, Additional history exists CKD HGB USE SMARTSET 90305 09/15/202109/15, 09/15/2020, 09/20/2019, Additional history exists CKD PHOS USE SMARTSET 85010 09/15/2021 04/3 , 04/18/2020, 04/27/2019, Additional history [...] Documents on File Type Date Recorded Patient Active Directory Administrator Expl anation Advanced Directive 11/15/2008 12:00 [...] the patient have Health Care Power of Photogeologist? Yes, not currently available Full Code 09/15/2009 [...]
--- OUTSIDE RECORDS SUMMARY | 2023-02-21 02:44 | External Medical Summary | Summary of Care ---
Author Name Unknown Organization [place] [address] Care Team Providers Care Manager Personnel Selection Name Role Phone Unavailable Primary Care Provider Unavailabl e Reason for Visit * Reason Comments Dosage Adjustment In Person (Anticoag Cl inic) Diabetes Follow-Up Insulin Instruction Encounter Details Date Type Department Care Team Description 11/09/2020 Office Visit Pharmacy, [facility] [address] [facility] [address] [facility] [address] [place] [address] Type 2 diabetes mellitus with stage 3b chronic kidney disease, without long-term current use of insulin ([facility])*; DM type 2, goal A1C to be determined ([facility]) Allergies No Known Active Allergiesdocumented as of this encounter (statuses as of 11/09/2020) Medications Medication Sig Dispensed Refills Start Date End Date Status ONE TOUCH ULTRA DEVIIndications:DM type 2, not at goal ([facility]) check daily 1 0 12/11/2005 Active ONE TOUCH ULTRA CONTROL SOLNIndications:DM type 2, not at goal ([facility]) check daily 1 11 12/11/2005 Active ONE TOUCH ULTRA TEST STRPIndications:DM type 2, not at goal ([facility]) test daily 1 box 11 12/11/2005 Active ONE TOUCH ULTRASOFT LANCETS MISCIndications:DM type 2, not at goal ([facility]) test daily 1 box 11 12/11/2005 [...] determined ([facility]) Inject 10 Units under the skin daily. [...] once daily 100 Each 1 11/09/2020 Active glipiZIDE ER 5 MG Oral Tablet Extended Release 24 Hour (glipiZIDE XL) Take 1 Tab by mouth 3 times a day. 270 Tab 3 06/26/2020 11/09/2020 Discontinued (End of Procedure) documented as of this encounter (statuses as of 11/09/2020) Active Problems Problem Noted Date Type 2 [...] as of this encounter (statuses as of 11/09/2020) Resolved Problems Problem Noted Date Resolved Date [...] Aortic root 4.4 cm 4.29.2009 echo at [facility]. HTN, goal below 130/80 [...] Markers for Patients with Cardiovascular Disease Project #[id number] PI: Francoise Tomlin MD Please call [phone] with study related questions INTERFACED RESULT 11/17/2008 10/17/2011 GENOMICS CARDIO RESEARCH OTHER*[id number] 200806/25/2016 Overview: Renamed Per Clinical Trials Billing Project. Study Titile: Genomic Markers for Patients with Cardiovascular Disease Project #[id number] PI: Francoise Tomlin MD Please call [phone] with study related questions CLASS I-II ANGINA [...] as of this encounter (statuses as of 11/09/2020) Immunizations Name Administration Dates Next Due Pneumococcal [...] Comments:quit 30 yrs ago, wh ile in [employer] for 4 years Alcohol Use Drinks/Week oz/Week [...] this encounter Progress Notes * Katarzyna Sawyer, [facility] - 11/09/2020 9:59 AM EDT Medication Therapy Disease Management Clinic - Diabetes Management Progress Note Dirk Garcia, identified by name and date of , is a 85 year old male being seen for diabetes management/education. Patient presents for return diabetic visit. DIABETES: Current diabetic medications: Metformin 500 mg once daily Glipizide XL 5 mg TID eGFR 36.2 mL/min 09/15/20 Trulicity cost prohibitive (~$800) Medication Injection Site: N/A Lifestyle: Diet: unchanged Glucose Review/SMBG: patient does not test Hypoglycemia: Does your blood sugar go below 70 mg/dL? Unknown, but patient has not had symptoms of hypoglycemia Hyperglycemia symptoms present: none Lab Results Component [...] Zoster Vaccines (1 of 2) Never done ASSESSMENT & PLAN: ICD-10-CM 1. Type 2 diabetes mellitus with stage 3b chronic kidney disease, without long- term current use of insulin ([facility]) E11.22 N18.32 2. DM type 2, goal A1C to be determined ([facility]) E11.9 BG Readings Blood sugars uncontrolled. A1c elevated and uncontrolled. Patient remains not interested in testing- did encourage he at least has supplies and counseled on rule of 15s. He will get an a1c before next visit- I scheduled the lab for him at todays visit. Medications Reviewed current regimen, patient is adherent to regimen. Will stop glipizde and start basal insulin. Patient is hesitant about injecting, but I had a candid discussion with him that this is the next step for his heatlth, as the glipizide is no longer providing BG control and other options are cost prohibitive (GLP1s). Taught patient how to use insulin pen. Reviewed with patient individual steps to do before pen is ready to use: washing hands, if using cloudy insulin to roll pen between hands to mix insulin, removing protective seal from pen needle and screwing needle onto pen, and removing both outer and inner needle caps and making sure the dose selector is set at zero. Reviewed priming the pen with two unitsbefore each use. Reviewed dialing the pen to patient's dose. Reviewed proper injection technique. Patient verbalized understanding and displayed successful technique. Diet, Exercise, Lifestyle No significant lifestyle changes since last visit. Discussed with patient. Patient is agreeable to SMBG 0 time(s) daily. Not interested in checking Patient aware to contact clinic if any hypoglycemia before next visit. MEDICATION CHANGES: yes, see below; preferred pharmacy: [facility] Medications: Metformin 500 mg once daily Stop Glipizide XL 5 mg TID Start Lantus 10 units daily eGFR 36.2 mL/min 09/15/20 Trulicity cost prohibitive (~$800) HEALTH MAINTENANCE INTERVENTIONS: Labs: Up to Date Immunizations: Due for zoster Foot Exam: Up to Date Eye Exam: Up to Date FOLLOW UP: Return to clinic in 8 weeks + phone call check in in 1 week for insulin Next Office Visit: 11/16/2020 Scheduled Provider(s): [facility] Katarzyna Sawyer [facility] Clinical Pharmacist - Manager E Commerce Medication Therapy Management Clinic 11/09/2020, 10:03 AM documented in this encounter Plan of Treatment Upcoming Encounters Date Type Specialty Care Team Description 11/16/2020 Pharmacy Pharmacy [facility] [address] [place] [address] 12/15/2020 Laboratory [facility] [address] [place] [address] [phone] 12/22/2020 Office Visit Pharmacy [facility], [facility] [address] [place] [address] 01/26/2021 Office Visit Family Medicine Carola Arrington MD [address] [place] [address] [phone] 02/02/2021 Office Visit Cardiology Azael Lozano MD [address] [place] [address] [phone] Scheduled Orders Name Type Priority Associated Diagnoses Orde r Schedule HEMOGLOBIN A1C Lab Routine Type 2 diabetes mellitus with stage 3b chronic kidney disease, without long-term current use of insulin (HCC) DM type 2, goal A1C to be determined (HCC) Expected: 12/14/2020 (Approximate), Expires: 11/09/2021 Health Maintenance Due Date Last Done Comments [...] of insulin ([facility])- Primary DM type 2, goal A1C to be determined ([facility]) Type II or unspecified type diabetes mellitus without mention of complication, not stated as uncontrolled documented in this encounter Advance Directives Documents on File Type Date Recorded Patient Logistics Solution Manager Expl anation Advanced Directive 11/15/2008 12:00 [...] the patient have Health Care Power of Tech Brazer Tester? Yes, not currently available Full Code 09/15/2009 [...]
--- OUTSIDE RECORDS SUMMARY | 2023-02-21 02:44 | External Medical Summary ---
Author Name Unknown Address Unknown Organization [id number]:[facility] - [address] [facility] [address] Laboratory Report Ordering Provider Test Date Status LIYA GARRETT 01/26/2021 10:03:12 Final Observation Date Value Abnormality Reference (Units ) Status SYNC LEUKOCYTES IN BLOOD BY AUTOMATED COUNT 01/26/2021 10:03:12 6.37 4.00-10.80 (K/uL) Final Segs 01/26/2021 10:03:12 60.1 40.0-75.0 (%) Final Lymphs % 01/26/2021 10:03:12 29.8 18.0-42.0 (%) Final Monos 01/26/2021 10:03:12 8.2 1.0-11.0 (%) Final Eosinophils 01/26/2021 10:03:12 0.9 0.0-6.0 (%) Final Basos 01/26/2021 10:03:12 0.5 0.0-2.0 (%) Final Immature Granulocyte, Percent 01/26/2021 10:03:12 0.5 0.0-2.0 (%) Final Absolute Segs 01/26/2021 10:03:12 3.83 1.80-7.70 (K/uL) Final Lymphs, absolute 01/26/2021 10:03:12 1.90 1.00-4.80 (K/ul) Final Monos, Abs 01/26/2021 10:03:12 0.52 0.00-1.10 (K/uL) Final Eos, Abs 01/26/2021 10:03:12 0.06 0.00-0.70 (K/uL) Final Basos, Abs 01/26/2021 10:03:12 0.03 0.00-0.20 (K/uL) Final Immature Granulocytes, Number 01/26/2021 10:03:12 0.03 0.00-0.20 (K/uL) Final Performing Location [facility] - [facility] [address] [facility] [address]
--- OUTSIDE RECORDS SUMMARY | 2023-02-21 02:45 | External Medical Summary | Summary of Care ---
Author Name Unknown Organization [place] [address] Care Team Providers Care Game Trapper Name Role Phone Monty Dumont MD Primary Care Provide r Reason for Visit * Reason Comments eRx-Medication Refill Encounter Details Date Type Department Care Team Description 09/03/2020 Refill Cardiology, [facility] [address] [facility] [place] [address] Azael Lozano MD [address] [place] [address] [phone] Chest pain; Unstable angina (HCC) Allergies No Known Active Allergiesdocumented as of this encounter (statuses as of 09/04/2020) Medications Medication Sig Dispensed Refills Start Date [...] A DAY 180 Tab 3 09/04/2020 Active Ranolazine ER 1000 MG [id number]:Ch est pain,Unstable angina (HCC) TAKE 1 TABLET TWICE A DAY 180 Tab 4 06/11/2019 09/04/2020 Discontinued Metoprolol Succinate ER 25 MG Oral Tablet Extended Release 24 Hour (toPROL XL)Indications:Chr onic coronary artery disease,Aortocoron jovanna bypass status,HTN, goal below 140/90 TAKE 2 TABLETS BY MOUTH EVERY DAY 180 Tab 1 03/06/2020 09/04/2020 Discontinued documented as of this encounter (statuses as of 09/04/2020) Active Problems Problem Noted Date Hypertensive kidney [...] as of this encounter (statuses as of 09/04/2020) Resolved Problems Problem Noted Date Resolved Date [...] Aortic root 4.4 cm 4.29.2009 echo at [facility]. HTN, goal below 130/80 06/14/2009 [...] Markers for Patients with Cardiovascular Disease Project #[id number] PI: Francoise Tomlin MD Please call [phone] with study related questions INTERFACED RESULT 11/17/2008 10/17/2011 GENOMICS CARDIO RESEARCH OTHER*[id number] 200806/25/2016 Overview: Renamed Per Clinical Trials Billing Project. Study Titile: Genomic Markers for Patients with Cardiovascular Disease Project #[id number] PI: Francoise Tomlin MD Please call [phone] with study related questions CLASS I-II ANGINA [...] as of this encounter (statuses as of 09/04/2020) Immunizations Name Administration Dates Next Due Pneumococcal [...] Comments:quit 30 yrs ago, wh ile in [employer] for 4 years Alcohol Use Drinks/Week oz/Week [...] Telephone Encounter - Silvia Beaulieu RN - 09/04/2020 9:32 AM EDT Pending Prescriptions: Disp Refills Ranolazine ER 1000 MG Oral Tablet Extende*180 Tab3 Sig: TAKE 1 TABLET TWICE A DAY * Telephone Encounter - Silvia Beaulieu RN - 09/04/2020 9:32 AM EDT Pending Prescriptions: Disp Refills Ranolazine ER 1000 MG Oral Tablet Extende*180 Tab3 Sig: TAKE 1 TABLET TWICE A DAY Last Office/Telemedicine Visit: 06/21/2020 Next Office Visit: 02/02/2021 Scheduled Provider(s): Azael Lozano MD If no future appointments scheduled, and last appointment is greater than a year ago, please schedule patient for a follow-up appointment Last date the medication was ordered: Pharmacy: [email or web address] Is this request for a controlled substance?No Urine Drug Screen:No results found for this or any previous visit. Patient Phone Numbers Labs: Lab Results Component Value Date/Time CREAT 1.9 (H) 06/21/2020 03:37 PM CREAT 1.9 (H) 04/18/2020 08:29 AM POTASSIUM 5.4 (H) 06/21/2020 03:37 PM POTASSIUM 5.0 04/18/2020 08:29 AM TSH 2.56 06/21/2020 03:37 PM TSH 2.81 01/01/2017 01:44 PM LDLCALC 30 10/27/2019 09:03 AM LDLDIRECT NOT APPLICABLE 10/27/2019 09:03 AM LDLDIRECT 50 10/24/2016 11:50 AM ALT 23 04/18/2020 08:29 AM HGBA1C 9.7 (H) 04/18/2020 08:29 AM documented in this encounter Plan of Treatment Upcoming Encounters Date Type Specialty Care Team Description 09/15/2020 Office Visit [facility]acy [facility] [address] [place] [address] 10/26/2020 Office Visit Family Medicine China Navas PA-C [address] [place] [address] [phone] 02/02/2021 Office Visit Cardiology Azael Lozano MD [address] [place] [address] [phone] Health Maintenance Due Date Last Done Comments Dexa Scan 1986 Zoster Vaccines (1 of 2) 1986 *DEPRESSION SCREENING,ANNUAL FOR PTS 12 AND OVER 04/29/2020 CKD HGB USE SMARTSET 85932 09/19/202009/19, 04/27/2019, 03/20/2018, Additional history exists DIABETES-HGBA1C EVERY 6 MONTHS 10/17/2020 04/18/2020, 10/27/2019, 01/12/2019, Additional history exists CKD GFR USE SMARTSET 64708 12/19/202006/21, 04/18/2020, 10/27/2019, Additional history exists COLONOSCOPY-EVERY 5 YRS AGES 18-100 03/20/2021 03/20/2016, 04/30/2010, 02/05/2002 CKD PHOS USE SMARTSET 79632 04/18/202105/2019, 04/27/2019, 03/20/2018 Yearly B-12 04/18/2021 04/18/2020, 04/18, 05/01/2017 DIABETES-FOOT [...] Documents on File Type Date Recorded Patient Management Intern Expl anation Advanced Directive 11/15/2008 12:00 AM [...] the patient have Health Care Power of Currency Machine Operator? Yes, not currently available Full [...]
--- OUTSIDE RECORDS SUMMARY | 2023-02-21 02:45 | External Medical Summary ---
Author Name Unknown Address Unknown Organization [id number]:[facility] - [address] [place] [address] Laboratory Report Ordering Provider Test Date Status BENJI THAKKAR 09/15/2020 10:34:32 Final Observation Date Value Abnormality Reference (Units ) Status Protein/Creatinine [Ratio] in Urine 09/15/2020 10:34:32 667 Above high normal <150 (mg/g ) Final Protein, Urine 09/15/2020 10:34:32 22 (mg/dL) Final Creatinine [Moles/volume] in Urine 09/15/2020 10:34:32 33 (mg/dL) Final Performing Location [facility] - [address] [place] [address]
--- OUTSIDE RECORDS SUMMARY | 2023-02-21 02:45 | External Medical Summary ---
Author Name Unknown Address Unknown Organization [id number]:[facility] - [address] [place] [address] Laboratory Report Ordering Provider Test Date Status BENJI THAKKAR 09/15/2020 10:32:22 Final Observation Date Value Abnormality Reference (Units ) Status BUN 09/15/2020 10:32:22 28 Above high normal 6-20 (mg/dL) Final Creatinine 09/15/2020 10:32:22 1.7 Above high normal 0.6-1.2 (mg/dL) Final Glomerular filtration rate/1.73 sq M.predicted [Volume Rate/Area] in Serum, Plasma or Blood by Creatinine-based formula (CKD-EPI) 09/15/2020 10:32:22 36.2 Below low normal >=60.0 (mL/min) Final Performing Location [facility] - [address] [place] [address]
--- OUTSIDE RECORDS SUMMARY | 2023-02-21 02:45 | External Medical Summary | Summary of Care ---
Author Name Unknown Organization [place] [address] Care Team Providers Care Plant Operations Worker Name Role Phone Monty Dumont MD Primary Care Provide r Reason for Visit * Reason Comments Dosage Adjustment In Person (Anticoag Cl inic) Diabetes Follow-Up Encounter Details Date Type Department Care Team Description 09/15/2020 Office Visit Pharmacy, [facility] [address] [place] [address] [facility] [address] [place] [address] 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)* Allergies No Known Active Allergiesdocumented as of this encounter (statuses as of 09/15/2020) Medications Medication Sig Dispensed Refills Start Date [...] as of this encounter (statuses as of 09/15/2020) Active Problems Problem Noted Date Hypertensive kidney [...] as of this encounter (statuses as of 09/15/2020) Resolved Problems Problem Noted Date Resolved Date [...] Markers for Patients with Cardiovascular Disease Project #[id number] PI: Francoise Tomlin MD Please call [phone] with study related questions INTERFACED RESULT 11/17/2008 10/17/2011 GENOMICS CARDIO RESEARCH OTHER*[id number] 200806/25/2016 Overview: Renamed Per Clinical Trials Billing Project. Study Titile: Genomic Markers for Patients with Cardiovascular Disease Project #[id number] PI: Francoise Tomlin MD Please call [phone] with study related questions CLASS I-II ANGINA [...] as of this encounter (statuses as of 09/15/2020) Immunizations Name Administration Dates Next Due Pneumococcal [...] Comments:quit 30 yrs ago, wh ile in [employer] for 4 years Alcohol Use Drinks/Week oz/Week [...] of this encounter Progress Notes * Crystal Mogran, [facility] - 09/15/2020 9:54 AM EDT Medication Therapy Disease Management [facility] - Diabetes Management Progress Note Dirk Garcia, identified by name and date of , is a 85 year old male being seen for diabetes management/education. Patient presents for return diabetic visit. DIABETES: Current diabetic medications: Diabetic Medications: Metformin 500 mg once daily Glipizide XL 5 mg TID Medication Injection Site: N/A Lifestyle: Diet: unchanged Glucose Review/SMBG: Readings per patient memory/recall: Patient is currently testing 0 times a day Hypoglycemia: Does your blood sugar go below 70 mg/dL? No Hyperglycemia symptoms present: none Hemoglobin AIC Results: Lab Results Component Value Date/Time HEMOGLOBIN A1C - [facility] 9.7 (H) 04/18/2020 08:29 AM HEMOGLOBIN A1C - [facility] 6.4 (H) 10/27/2019 09:03 AM HEMOGLOBIN A1C - [facility] 6.5 (H) 01/12/2019 02:01 PM Lab Results Component Value Date/Time CREATININE - [facility] 1.9 (H) 06/21/2020 03:37 PM CREATININE - [facility] 1.9 (H) 04/18/2020 08:29 AM CREATININE - [facility] 1.7 (H) 10/27/2019 09:03 AM CREATININE - [facility] 1.6 (H) 09/20/2019 04:21 PM CREATININE, RANDOM URINE - [facility] 185 10/24/2016 11:53 AM CREATININE, RANDOM URINE - [facility] 75 02/20/2015 03:16 PM CREATININE, RANDOM URINE - [facility] 32 07/13/2013 02:33 PM HYPERTENSION: Patient on ACEi/ARB: yes BP Readings from Last 3 Encounters: 04/27/20 120/60 10/27/19 128/60 09/20/19 124/60 Blood pressure at goal: yes HYPERLIPIDEMIA: Patient is taking moderate or high intensity statin: yes HEALTH MAINTENANCE REVIEW: Health Maintenance Due Topic Date Due Dexa Scan Never done Zoster Vaccines (1 of 2) Never done *DEPRESSION SCREENING,ANNUAL FOR PTS 12 AND OVER Never done CKD HGB USE SMARTSET 39217 09/19/2020 ASSESSMENT & PLAN: ICD-10-CM 1. 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) E11.22 N18.30 BG Readings Blood sugars uncontrolled. A1c last April, will repeat today as patient does nottest at home and is not willing to at this time. Medications Reviewed current regimen, patient is adherent to regimen. Offers no problems/concerns with BG values. Diet, Exercise, Lifestyle No significant lifestyle changes since last visit. Discussed with patient riding his stationary bike. Patient is agreeable to SMBG 0 time(s) daily. Patient aware to contact clinic if any hypoglycemia before next visit. MEDICATION CHANGES: no change Diabetic Medications: Diabetic Medications: Metformin 500 mg once daily Glipizide XL 5 mg TID HEALTH MAINTENANCE INTERVENTIONS: Labs: Up to Date Immunizations: Up to Date Foot Exam: Up to Date Eye Exam: Up to Date Annual Wellness Visit: N/A FOLLOW UP: Return to clinic in 8 weeks Next Office Visit: 11/09/2020 Scheduled Provider(s): [facility] Nhung Morgan RPh Clinical Pharmacist - Pulmonary Nurse Practitioner Medication Therapy Management [facility] 09/15/2020, 9:54 AM documented in this encounter Plan of Treatment Upcoming Encounters Date Type Specialty Care Team Description 09/15/2020 Laboratory Laboratory [facility] [address] [place] [address] [phone] 09/18/2020 Pharmacy Pharmacy [facility] [place] [address] [place] [address] 10/26/2020 Office Visit Family Medicine [facility] [place] [address] [phone] 11/09/2020 [facility] [address] [place] [address] 02/02/2021 Office Visit Cardiology Azael Lozano MD [address] [place] [address] [phone] Scheduled Orders Name Type Priority Associated Diagnoses Orde r Schedule HEMOGLOBIN A1C Lab Routine 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) Expected: 09/15/2020, Expires: 09/15/2021 Health Maintenance Due Date Last Done Comments Dexa Scan 1986 Zoster Vaccines (1 of 2) 1986 *DEPRESSION SCREENING,ANNUAL FOR PTS 12 AND OVER 04/29/2020 CKD HGB USE SMARTSET 15926 09/19/202009/19, 04/27/2019, 03/20/2018, Additional history exists DIABETES-HGBA1C EVERY 6 MONTHS 10/17/2020 04/18/2020, 10/27/2019, 01/12/2019, Additional history exists CKD GFR USE SMARTSET 24850 12/19/202006/21, 04/18/2020, 10/27/2019, Additional history exists COLONOSCOPY-EVERY 5 YRS AGES 18-100 03/20/2021 03/20/2016, 04/30/2010, 02/05/2002 CKD PHOS USE SMARTSET 83735 04/18/202105/2019, 04/27/2019, 03/20/2018 Yearly B-12 04/18/2021 04/18/2020, [...] Documents on File Type Date Recorded 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 Yes, not currently available Full Code [...]
--- OUTSIDE RECORDS SUMMARY | 2023-02-21 02:45 | External Medical Summary ---
Author Name Unknown Address Unknown Organization K01:LABORATORY [facility] [place] - [address] [place] [address] Laboratory Report Ordering Provider Test Date Status FANTASMAMALLORYOBINNA 09/15/2020 10:32:22 Final Observation Date Value Abnormality Reference (Units ) Status LDL, (direct) 09/15/2020 10:32:22 52 <=129 (mg/dL) Final Performing Location LABORATORY [facility] - [address] [place] [address]
--- OUTSIDE RECORDS SUMMARY | 2023-02-21 02:45 | External Medical Summary ---
Author Name Unknown Address Unknown Organization [id number][facility] [address] [place] [address] Laboratory Report Ordering Provider Test Date Status BRICE MEEK 09/15/2020 10:32:20 Final Observation Date Value Abnormality Reference (Units ) Status WBC, Total 09/15/2020 10:32:20 5.82 4.00-10.8 0 (K/uL) Final RBC 09/15/2020 10:32:20 3.81 Below low normal 4.5 0-5.25 (M/uL) Final Hemoglobin 09/15/2020 10:32:20 12.7 Below low normal 14 .0-16.8 (g/dL) Final HCT 09/15/2020 10:32:20 36.7 Below low normal 40. 0-48.4 (%) Final MCV 09/15/2020 10:32:20 96.3 82.0-99.5 (fL) Final MCH 09/15/2020 10:32:20 33.3 27.0-34.0 (pg) Final MCHC 09/15/2020 10:32:20 34.6 32.0-36.0 (g/dL) Final RDW 09/15/2020 10:32:20 12.2 11.5-15.5 (%) Final Platelets 09/15/2020 10:32:20 116 Below low normal 140 -400 (K/uL) Final MPV 09/15/2020 10:32:20 9.4 6.6-11.1 ( fL) Final Performing Location LABORATORY [facility] [place] [address] 0 - [address] [place] [address]
--- OUTSIDE RECORDS SUMMARY | 2023-02-21 02:45 | External Medical Summary ---
Author Name Unknown Address Unknown Organization K01:[facility] [place] [address] [place] [address] Laboratory Report Ordering Provider Test Date Status FANTASMAMALLORYOBINNA 09/15/2020 10:32:22 Final Observation Date Value Abnormality Reference (Units ) Status Triglyceride 09/15/2020 10:32:22 200 Above high normal <=174 (mg/dL) Final Performing Location [facility] [place] [address] [place] [address]
--- OUTSIDE RECORDS SUMMARY | 2023-02-21 02:45 | External Medical Summary ---
Author Name Unknown Address Unknown Organization K0G[facility] [address] [place] [address] Laboratory Report Ordering Provider Test Date Status BRICE MEEK 09/15/2020 10:32:20 Final Observation Date Value Abnormality Reference (Units ) Status SYNC LEUKOCYTES IN BLOOD BY AUTOMATED COUNT 09/15/2020 10:32:20 5.82 4.00-10.80 (K/uL) Final Segs 09/15/2020 10:32:20 62.3 40.0-75.0 (%) Final Lymphs % 09/15/2020 10:32:20 25.6 18.0-42.0 (%) Final Monos 09/15/2020 10:32:20 10.3 1.0-11.0 (%) Final Eosinophils 09/15/2020 10:32:20 1.5 0.0-6.0 (%) Final Basos 09/15/2020 10:32:20 0.3 0.0-2.0 (%) Final Absolute Segs 09/15/2020 10:32:20 3.62 1.80-7.70 (K/uL) Final Lymphs, absolute 09/15/2020 10:32:20 1.49 1.00-4.80 (K/ul) Final Monos, Abs 09/15/2020 10:32:20 0.60 0.00-1.10 (K/uL) Final Eos, Abs 09/15/2020 10:32:20 0.09 0.00-0.70 (K/uL) Final Basos, Abs 09/15/2020 10:32:20 0.02 0.00-0.20 (K/uL) Final Performing Location LABORATORY [facility] [place] [address] - [address] [place] [address]
--- OUTSIDE RECORDS SUMMARY | 2023-02-21 02:45 | External Medical Summary ---
Author Name Unknown Address Unknown Organization K01:LABORATORY [facility] [place] - [address] [place] [address] Laboratory Report Ordering Provider Test Date Status CASSIA MILTON 09/15/2020 10:32:19 Final Observation Date Value Abnormality Reference (Units ) Status HbA1C 09/15/2020 10:32:19 11.8 Above high normal 4. 0-5.6 (%) Final Performing Location LABORATORY [facility] [place] - [address] [facility] [address]
--- OUTSIDE RECORDS SUMMARY | 2023-02-21 02:45 | External Medical Summary | Summary of Care ---
Author Name Unknown Organization [place] [address] Care Team Providers Care Electronic Test Technician Name Role Phone Monty Dumont MD Primary Care Provide r Reason for Visit * Reason Comments eRx-Medication Refill Encounter Details Date Type Department Care Team Description 09/04/2020 Refill Cardiology, [facility] [address] [facility] [place] [address] Azael Lozano MD [address] [place] [address] [phone] Chronic coronary artery disease; Aortocoronary bypass status; HTN, goal below 140/90 Allergies No Known Active Allergiesdocumented as of [...] TEST STRPIndications:DM type 2, not at goal ([facility]) test daily 1 box 11 12/11/2005 Active [...] mouth daily. 100 Tab 1 08/22/2020 Active Metoprolol Succinate ER 25 MG Oral Tablet Extended Release 24 Hour (toPROL XL)Indications:Chr onic coronary artery disease,Aortocoron jovanna bypass status,HTN, goal below 140/90 TAKE 2 TABLETS BY MOUTH EVERY DAY 180 Tab 3 09/04/2020 Active Metoprolol [...] Aortic root 4.4 cm 4.29.2009 echo at [facility]. HTN, goal below 130/80 06/14/2009 2 Overview: Per HTN Taxonomy. Type 2 diabetes mellitus wit h hemoglobin A1c goal of less than 7.0% 03/02/2009 03/27/2011 Overview: Modified per Diabetes protocol #14. ICD-10 update of inactive term EXAMINATION OF PARTICIPANT IN CLINICAL TRIAL-gen omics 11/17/2008 09/01/2009 Overview: Renamed Per Clinical Trials Billing Project. Study Titile: Genomic Markers for Patients with Cardiovascular Disease Project #[id number] PI: Francoise Tomlin MD Please call [phone] with study related questions INTERFACED RESULT 11/17/2008 10/17/2011 GENOMICS CARDIO RESEARCH OTHER*[id number] 200806/25/2016 Overview: Renamed Per Clinical Trials Billing Project. Study Titile: Genomic Markers for Patients with Cardiovascular Disease Project #[id number] PI: Francoise Tomlin MD Please call [phone] with study related questions CLASS I-II ANGINA [...] Comments:quit 30 yrs ago, wh ile in [place] for 4 years Alcohol Use Drinks/Week oz/Week [...] Encounter - Silvia Beaulieu RN - 09/04/2020 9:33 AM EDT Pending Prescriptions: Disp Refills Metoprolol Succinate ER 25 MG Oral Tablet*180 Tab3 Sig: TAKE 2 TABLETS BY MOUTH EVERY DAY * Telephone Encounter - Silvia Beaulieu RN - 09/04/2020 9:32 AM EDT Pending Prescriptions: Disp Refills Metoprolol Succinate ER 25 MG Oral Tablet*180 Tab1 Sig: TAKE 2 TABLETS BY MOUTH EVERY DAY Last Office/Telemedicine Visit: 06/21/2020 Next Office Visit: 02/02/2021 Scheduled Provider(s): Azael Lozano MD If no future appointments scheduled, and last appointment is greater than a year ago, please schedule patient for a follow-up appointment Last date the medication was ordered: Pharmacy: [id number] [id number] Is this request for a controlled [...] Care Team Description 09/15/2020 Office Visit Pharmacy [facility] [address] [place] [address] 10/26/2020 Office Visit Family Medicine China Navas PA-C [address] [place] [address] [phone] 02/02/2021 Office Visit Cardiology Azael Lozano MD [address] [place] [address] [phone] Health Maintenance Due Date Last Done Comments Dexa Scan 1986 Zoster Vaccines (1 of 2) 1986 *DEPRESSION SCREENING,ANNUAL FOR PTS 12 AND OVER 04/29/2020 CKD HGB USE SMARTSET 51923 09/19/202009/19, 04/27/2019, 03/20/2018, Additional history exists DIABETES-HGBA1C EVERY 6 MONTHS 10/17/2020 04/18/2020, 10/27/2019, 01/12/2019, Additional history exists CKD GFR USE SMARTSET 02242 12/19/202006/21, 04/18/2020, 10/27/2019, Additional history exists COLONOSCOPY-EVERY 5 YRS AGES 18-100 03/20/2021 03/20/2016, 04/30/2010, 02/05/2002 CKD PHOS USE SMARTSET 14217 04/18/2021 1205/2019, 04/27/2019, 03/20/2018 Yearly B-12 04/18/2021 04/18/2020, 04/18, [...] Coronary atherosclerosis of unspecified type of vessel, [place] or graft 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 Yes, not currently available Full Code [...]
--- OUTSIDE RECORDS SUMMARY | 2023-02-21 02:45 | External Medical Summary | Summary of Care ---
Author Name Unknown Organization [place] [address] Care Team Providers Care Supervisor Mold Shop Name Role Phone Garfield Maria MD Primary Care Provide r Reason for Visit * Reason Onset Date Comments Medication Refill 08/21/2020 Medication Refill 08/30/2020 Encounter Details Date Type Department Care Team Description 08/21/2020 Refill Family Practice [facility] [address] [place], [place] [id number] Garfield Maria MD [address] [place] [address] [place] [address] Encounter for long-term (current) drug use*; Aortocoronary bypass status; Acute coronary syndrome (HCC); Chronic coronary artery disease; Enlarged aorta (HCC) Allergies No Known Active Allergiesdocumented as of this encounter (statuses as of 08/30/2020) Medications Medication Sig Dispensed Refills Start Date End Date Status ONE TOUCH ULTRA DEVIIndications:DM type 2, not at goal (HCC) check daily 1 0 12/11/2005 Active ONE TOUCH ULTRA CONTROL SOLNIndications:DM type 2, not at goal (HCC) check daily 1 12/11/2005 Active ONE TOUCH ULTRA TEST STRPIndications:DM type 2, not at goal (HCC) test daily 1 box 12/11/2005 Active ONE TOUCH ULTRASOFT LANCETS MISCIndications:DM [...] 1 11/17/2018 Active Ranolazine ER 1000 MG [id number]:Trini st pain,Unstable angina (HCC) TAKE 1 TABLET TWICE A DAY 180 Tab 4 06/11/2019 Active Metoprolol Succinate ER 25 MG Oral Tablet Extended Release 24 Hour (toPROL XL)Indications:Money Market Clerk shanique coronary artery disease,Aortocorona ry bypass status,HTN, goal below 140/90 TAKE 2 TABLETS BY MOUTH EVERY DAY 180 Tab 1 03/06/2020 Active amLODIPine Besylate 5 MG Oral Tablet [...] mouth daily. 100 Tab 1 08/22/2020 Active clopidogrel (PLAVIX) 75 MG TabletIndications:A ortocoronary bypass status,Acute coronary syndrome (HCC),Chronic coronary artery disease,Enlarged aorta (HCC) Take 1 Tab by mouth daily. 100 Tab 1 01/26/2020 08/21/2020 Discontinued (Refill) documented as of this encounter (statuses as of 08/30/2020) Active Problems Problem Noted Date Hypertensive kidney [...] as of this encounter (statuses as of 08/30/2020) Resolved Problems Problem Noted Date Resolved Date [...] root 4.4 cm 4.29.2009 echo at [facility]. HTN, goal below 130/80 [...] Markers for Patients with Cardiovascular Disease Project #[id number] PI: Francoise Tomlin MD Please call [phone] with study related questions INTERFACED RESULT 11/17/2008 10/17/2011 GENOMICS CARDIO RESEARCH OTHER*[id number] 200806/25/2016 Overview: Renamed Per Clinical Trials Billing Project. Study Titile: Genomic Markers for Patients with Cardiovascular Disease Project #[id number] PI: Francoise Tomlin MD Please call [phone] with study related questions CLASS I-II ANGINA [...] as of this encounter (statuses as of 08/30/2020) Immunizations Name Administration Dates Next Due Pneumococcal [...] Comments:quit 30 yrs ago, [place] in [place] for 4 years Alcohol Use Drinks/Week oz/Week [...] encounter Miscellaneous Notes * Telephone Encounter - Dahlia Lomeli CPhT - 08/30/2020 2:15 PM EDT [facility] calling to request Plavis=x. Informed pt that RX is available at their pharmacy. Verbalized understanding and found Rx in pt's other profile. Thank you, Dahlia Lomeli CPhT Chief Diversity Officer [facility] 08/30/2020, 2:15 PM * Telephone Encounter - Fantasma Murdock [facility] - 08/22/2020 10:26 AM EDT Signed Prescriptions: Disp Refills Clopidogrel Bisulfate 75 MG Oral Tablet (p*100 Tab1 Sig: Take 1 Tab by mouth daily. Authorizing Provider: GARFIELD MARIA Ordering User: FANTASMA MURDOCK * Telephone Encounter - Avelar Deanna, group account director - 08/21/2020 12:23 PM EDT Pending Prescriptions: Disp Refills Clopidogrel Bisulfate 75 MG Oral Tablet (*100 Tab1 Sig: Take 1 Tab by mouth daily. Last Office/Telemedicine Visit: 04/27/2020 Next Office Visit: 10/26/2020 Scheduled Provider(s): China Navas PA-C If no future appointments scheduled, and last appointment is greater than a year ago, please schedule patient for a follow-up appointment Last date the medication was ordered: 01-26-2020 Pharm[facility]: [id number] [place] Is this request for a [...] [facility] [address] [place] [address] 10/26/2020 Office Visit Family Medicine China Navas PA-C [address] [place] [address] [phone] 02/02/2021 Office Visit Cardiology Azael Lozano MD [address] [place] [address] [phone] Scheduled Orders Name Type Priority Associated Diagnoses Orde r Schedule CBC WITH WBC DIFFERENTIAL Lab Routine Encounter for long-term (current) drug use Expected: 08/22/2020 (Approximate), Expires: 08/22/2021 LIPID PANEL WITH DIRECT LDL IF TG IS HIGH Lab Routine Encounter for long-term (current) drug use Expected: 08/22/2020 (Approximate), Expires: 08/22/2021 Health Maintenance Due Date Last Done Comments Dexa Scan 1986 Zoster Vaccines (1 of 2) 1986 *DEPRESSION SCREENING,ANNUAL FOR PTS 12 AND OVER 04/29/2020 CKD HGB USE SMARTSET 41031 09/19/202009/19, 04/27/2019, 03/20/2018, Additional history exists DIABETES-HGBA1C EVERY 6 MONTHS 10/17/2020 04/18/2020, 10/27/2019, 01/12/2019, Additional history exists CKD GFR USE SMARTSET 71257 12/19/202006/21, 04/18/2020, 10/27/2019, Additional history exists COLONOSCOPY-EVERY 5 YRS AGES 18-100 03/20/2021 03/20/2016, 04/30/2010, 02/05/2002 CKD PHOS USE SMARTSET 84773 04/18/2021 1205/2019, 04/27/2019, 03/20/2018 Yearly B-12 04/18/2021 04/18/2020, 04/18, 05/01/2017 DIABETES-FOOT EXAM 04/27/2021 04/27/2020, 1 06/28/2018, 03/20/2018, Additional history exists DTaP,Tdap,and Td Vaccines (2 [...] Visit Diagnoses Diagnosis Encounter for long-term (current) drug use- Primary Encounter for long-term (current) use of other medications 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 Yes, not currently available Full Code 09/15/2009 [...]
--- OUTSIDE RECORDS SUMMARY | 2023-02-21 02:45 | External Medical Summary | Summary of Care ---
Author Name Unknown Organization [place] [address] Care Team Providers Care Data Consultant Name Role Phone Monty Dumont MD Primary Care Provide r Encounter Details Date Type Department Care Team Description 08/17/2020 Orders Only Family Practice [facility] [address] [place] [address] Jay Lemus, [address] [place] [address] [phone] Allergies No Known Active Allergiesdocumented as of this encounter (statuses as of 08/17/2020) Medications Medication Sig Dispensed Refills Start Date End Date Status ONE TOUCH ULTRA DEVIIndications:DM type 2, not at goal ([facility]) check daily 1 0 12/11/2005 Active ONE TOUCH ULTRA CONTROL SOLNIndications:DM type 2, not at goal ([facility]) check daily 1 11 12/11/2005 Active ONE TOUCH ULTRA TEST STRPIndications:DM type 2, not at goal ([facility]) test daily 1 box 11 12/11/2005 Active ONE TOUCH ULTRASOFT LANCETS MISCIndications:DM type 2, not at goal ([facility]) test daily 1 box 11 [...] 1 11/17/2018 Active Ranolazine ER 1000 MG [id number]:Chest pain,Unstable angina (HCC) TAKE 1 TABLET TWICE A DAY 180 Tab 4 06/11/2019 Active clopidogrel (PLAVIX) 75 MG TabletIndications:Aort ocoronary bypass status,Acute coronary syndrome (HCC),Chronic coronary artery disease,Enlarged aorta (HCC) Take 1 Tab by mouth daily. 100 Tab 1 01/26/2020 Active Metoprolol Succinate ER 25 MG Oral [...] EVERY MORNING 90 Tab 1 07/12/2020 Active documented as of this encounter (statuses as of 08/17/2020) Active Problems Problem Noted Date Hypertensive kidney [...] as of this encounter (statuses as of 08/17/2020) Resolved Problems Problem Noted Date Resolved Date [...] Aortic root 4.4 cm 4.29.2009 echo at [facility]. HTN, goal below 130/80 [...] Markers for Patients with Cardiovascular Disease Project #[id number] PI: Francoise Tomlin MD Please call [phone] with study related questions INTERFACED RESULT 11/17/2008 10/17/2011 GENOMICS CARDIO RESEARCH OTHER*[id number] 200806/25/2016 Overview: Renamed Per Clinical Trials Billing Project. Study Titile: Genomic Markers for Patients with Cardiovascular Disease Project #[id number] PI: Francoise Tomlin MD Please call [phone] with study related questions CLASS I-II ANGINA [...] as of this encounter (statuses as of 08/17/2020) Immunizations Name Administration Dates Next Due Pneumococcal [...] Comments:quit 30 yrs ago, wh ile in [place] for 4 years Alcohol Use Drinks/Week oz/Week [...] Care Team Description 09/15/2020 Office Visit Pharmacy [facility] [place] [address] [place] [address] 10/26/2020 Office Visit Family Medicine China Navas PA-C [address] [place] [address] [phone] 02/02/2021 Office Visit Cardiology Azael Lozano MD [address] [place] [address] [phone] Health Maintenance Due Date Last Done Comments Dexa Scan 1986 Zoster Vaccines (1 of 2) 1986 *DEPRESSION SCREENING,ANNUAL FOR PTS 12 AND OVER 04/29/2020 CKD HGB USE SMARTSET 80708 09/19/202009/19, 04/27/2019, 03/20/2018, Additional history exists DIABETES-HGBA1C EVERY 6 MONTHS 10/17/2020 04/18/2020, 10/27/2019, 01/12/2019, Additional history exists CKD GFR USE SMARTSET 93349 12/19/202006/21, 04/18/2020, 10/27/2019, Additional history exists COLONOSCOPY-EVERY 5 YRS AGES 18-100 03/20/2021 03/20/2016, 04/30/2010, 02/05/2002 CKD PHOS USE SMARTSET 55196 04/18/2021 12/05/2019, 04/27/2019, 03/20/2018 Yearly B-12 04/18/2021 04/18/2020, 04/18, [...] Procedure Name Priority Date/Time Associated Diagnosis Comments DIABETIC EYE EXAM Routine 08/16/2020 documented in this encounter Results * DIABETIC EYE EXAM (08/16/2020) Specimen Narrative Performed At OUTSIDE LAB (SEE SCANNED REPORT) documented in this encounter Advance Directives Documents on File Type Date Recorded Patient Director Data Management Expl anation Advanced Directive 11/15/2008 12:00 AM [...] patient have Health Care Power of Family Psychologist? Yes, not currently available Full Code 09/15/2009 [...]
--- OUTSIDE RECORDS SUMMARY | 2023-02-21 02:46 | External Medical Summary | Summary of Care ---
Author Name Unknown Organization [place] [address] Care Team Providers Care Marksmanship Instructor Name Role Phone Monty Dumont MD Primary Care Provide r Reason for Visit * Reason Onset Date Comments Medication Question 06/26/2020 Encounter Details Date Type Department Care Team Description 06/26/2020 Telephone Pharmacy, [facility] [address] [place] [address] [facility] [address] [place] [address] Medication Question Allergies No Known Active Allergiesdocumented as of this encounter (statuses as of 06/26/2020) Medications Medication Sig Dispensed Refills Start Date End Date Status ONE TOUCH ULTRA DEVIIndications:DM type 2, not at goal ([facility]) check daily 1 0 12/11/2005 Active ONE TOUCH ULTRA CONTROL SOLNIndications:DM type 2, not at goal ([facility]) check daily 1 11 12/11/2005 Active ONE TOUCH ULTRA TEST STRPIndications:DM type 2, not at goal ([facility]) test daily 1 box 11 12/11/2005 Active ONE TOUCH ULTRASOFT LANCETS MISCIndications:DM type 2, not at goal ([facility]) test daily 1 box 11 12/11/2005 Active aspirin 81 MG chewable tablet Take 1 Tab by mouth daily. 34 Tab 11 10/28/2017 Active isosorbide dinitrate (ISORDIL) 20 MG Tablet Take 1 Tab by mouth 3 times a day. at 8am, 12 noon and 4pm. 90 Tab 5 01/20/2018 Active Additional Information Patient not taking. Reported on 06/21/2020 nitroglycerin (NITROSTAT) 0.4 MG SUBLIndications:Ch ronic coronary artery disease DISSOLVE 1 TABLET UNDER THE TONGUE EVERY 5 MINUTES FOR CHEST PAIN. UP TO 3 DOSES IN 15 MINUTES. 25 Tab 1 11/17/2018 Active Ranolazine ER 1000 MG [id number]:Ch est pain,Unstable angina (HCC) TAKE 1 TABLET TWICE A DAY 180 Tab 4 06/11/2019 Active clopidogrel (PLAVIX) 75 MG TabletIndications: Aortocoronary bypass status,Acute coronary syndrome (HCC),Chronic coronary artery disease,Enlarged aorta (HCC) Take 1 Tab by mouth daily. 100 Tab 1 01/26/2020 Active Isosorbide Mononitrate ER 120 MG TB24 TAKE 1 TABLET BY MOUTH EVERY MORNING 90 Tab 1 01/28/2020 Active Metoprolol Succinate ER 25 MG Oral Tablet Extended Release 24 Hour (toPROL XL)Indications:Chr onic coronary artery disease,Aortocoron jovanna bypass status,HTN, goal below 140/90 TAKE 2 TABLETS BY MOUTH EVERY DAY 180 Tab 1 03/06/2020 Active amLODIPine Besylate 5 MG Oral Tablet (NORVASC)Indicatio ns:HTN, goal below 130/80 TAKE 1 TABLET BY MOUTH EVERY DAY 90 Tab 3 04/03/2020 Active Losartan Potassium 100 MG Oral Tablet (COZAAR)Indication s:HTN, goal below 140/90 Take 1 Tab by mouth daily. 90 Tab 3 04/05/2020 Active hydroCHLOROthiazid e 12.5 MG Oral Tablet (HYDRODIURIL)Indic ations:HTN, goal below 140/90 Take 1 Tab by mouth daily. 90 Tab 3 04/05/2020 Active metFORMIN HCl 500 MG Oral Tablet (GLUCOPHAGE) TAKE 1 TABLET BY MOUTH EVERY DAY WITH BREAKFAST 90 Tab 1 04/13/2020 Active Trulicity 0.75 MG/0.5ML Subcutaneous Solution Pen-injector (Dulaglutide) Inject 0.75 mg under the skin once a week. 2 mL 5 05/29/2020 Active Additional Information Patient not taking. Reported on 06/21/2020 Rosuvastatin Calcium 20 MG Oral Tablet (Crestor)Indicatio ns:Dyslipidemia, goal LDL below 70,Dyslipidemia, goal LDL below 160,Mixed dyslipidemia Take 1 Tab by mouth daily. 90 Tab 4 05/30/2020 Active Losartan Potassium-HCTZ 100-12.5 MG Oral TabletIndications: HTN, goal below 140/90 Take 1 Tab by mouth daily. 90 Tab 3 05/31/2020 Active Additional Information Patient not taking. Reported on 06/21/2020 glipiZIDE ER 5 MG Oral Tablet Extended Release 24 Hour (glipiZIDE XL) Take 1 Tab by mouth 3 times a day. 270 Tab 3 06/26/2020 Active glipiZIDE ER 5 MG Oral Tablet Extended Release 24 Hour (glipiZIDE XL) Take 1 Tab by mouth 2 times a day. 180 Tab 3 03/06/2020 06/26/2020 Discontinue d(Refill) documented as of this encounter (statuses as of 06/26/2020) Active Problems Problem Noted Date Hypertensive kidney [...] as of this encounter (statuses as of 06/26/2020) Resolved Problems Problem Noted Date Resolved Date [...] root 4.4 cm 4.29.2009 echo at [facility]. HTN, goal below 130/80 [...] Markers for Patients with Cardiovascular Disease Project #[id number] PI: Francoise Tomlin MD Please call [phone] with study related questions INTERFACED RESULT 11/17/2008 10/17/2011 GENOMICS CARDIO RESEARCH OTHER*[id number] 200806/25/2016 Overview: Renamed Per Clinical Trials Billing Project. Study Titile: Genomic Markers for Patients with Cardiovascular Disease Project #[id number] PI: Francoise Tomlin MD Please call [phone] with study related questions CLASS I-II ANGINA [...] as of this encounter (statuses as of 06/26/2020) Immunizations Name Administration Dates Next Due Pneumococcal [...] Comments:quit 30 yrs ago, wh ile in [place] for 4 years Alcohol Use Drinks/Week oz/Week [...] Miscellaneous Notes * Telephone Encounter - Crystal Zavala RPh - 06/26/2020 11:53 AM EST Patient Phone Numbers Prescription updated for gipizide TID. Crystal Zavala, Pharm D Clinical Pharmacist 06/26/2020, 11:55 AM,r * Telephone Encounter - Bea Milian OSA - 06/26/2020 11:30 AM EST Patient Phone Numbers Patient asking for Katarzyna-stating that medicine was upped to 3/day and wanted to make sure the change is in effect-because his bottle states 2 / day.,please advise.. documented in this encounter Plan of Treatment Upcoming Encounters Date Type Specialty Care Team Description 06/28/2020 Telemedicine Nephrology Washington Tello MD [address] [place] [address] [phone] 07/10/2020 Office Visit Pharmacy [facility] [place] [address] [place] [address] 10/26/2020 Office Visit Family Medicine Monty Dumont MD [address] [place] [address] [phone] 02/02/2021 Office Visit Cardiology Azael Lozano MD [address] [place] [address] [phone] Health Maintenance Due Date Last Done Comments Dexa Scan 1986 Zoster Vaccines (1 of 2) 1986 *DEPRESSION SCREENING,ANNUAL FOR PTS 12 AND OVER 04/29/2020 CKD HGB USE SMARTSET 64254 09/19/202009/19, 04/27/2019, 03/20/2018, Additional history exists DIABETES-HGBA1C EVERY 6 MONTHS 10/17/2020 04/18/2020, 10/27/2019, 01/12/2019, Additional history exists CKD GFR USE SMARTSET 56584 12/19/202006/21, 04/18/2020, 10/27/2019, Additional history exists COLONOSCOPY-EVERY 5 YRS AGES 18-100 03/20/2021 03/20/2016, 04/30/2010, 02/05/2002 CKD PHOS USE SMARTSET 29361 04/18/2021 12/05/2019, 04/27/2019, 03/20/2018 Yearly B-12 04/18/2021 [...] on File Type Date Recorded Patient Machine Set Up Operator Paper Goods Expl anation Advanced Directive 11/15/2008 12:00 AM [...] the patient have Health Care Power of Assistant Grocery? Yes, not currently available Full Code 09/15/2009 [...]
--- OUTSIDE RECORDS SUMMARY | 2023-02-21 02:46 | External Medical Summary | Summary of Care ---
Author Name Unknown Organization [place] [address] Care Team Providers Care Fish Farm Laborer Name Role Phone Monty Dumont MD Primary Care Provide r Reason for Visit * Reason Onset Date Comments Medication Problem 05/29/2020 Encounter Details Date Type Department Care Team Description 05/29/2020 Telephone Pharmacy, [facility] [address] [place] [address] [facility] [address] [place] [address] Medication Problem Allergies No Known Active Allergiesdocumented as of this encounter (statuses as of 05/29/2020) Medications Medication Sig Dispensed Refills Start Date End Date Status ONE TOUCH ULTRA DEVIIndications:DM type 2, not at goal ([facility]) check daily 1 0 12/11/2005 Active ONE TOUCH ULTRA CONTROL SOLNIndications:DM type 2, not at goal ([facility]) check daily 1 12/11/2005 Active ONE TOUCH ULTRA TEST STRPIndications:DM type 2, not at goal ([facility]) test daily 1 box 11 12/11/2005 Active ONE TOUCH ULTRASOFT LANCETS MISCIndications:DM type 2, not at goal ([facility]) test daily 1 box [...] 15 MINUTES. 25 Tab 1 11/17/2018 Active rosuvastatin (CRESTOR) 20 MG TabletIndications:Dys lipidemia, goal LDL below 70,Dyslipidemia, goal LDL below 160,Mixed dyslipidemia TAKE 1 TABLET DAILY AT 5 P.M. IN THE AFTERNOON 90 Tab 4 03/04/2019 Active Losartan Potassium-HCTZ 100-12.5 MG per tabletIndications:HTN , goal below 140/90 Take 1 Tab by mouth daily. 90 Tab 3 04/14/2019 Active Additional Information Patient not taking. Reported on 10/27/2019 Ranolazine ER 1000 MG [id number]:Chest pain,Unstable angina (HCC) TAKE 1 TABLET TWICE A DAY 180 Tab 4 06/11/2019 Active clopidogrel (PLAVIX) 75 MG TabletIndications:Aor tocoronary bypass status,Acute coronary syndrome (HCC),Chronic coronary artery [...] EVERY DAY 180 Tab 1 03/06/2020 Active glipiZIDE ER 5 MG Oral Tablet Extended Release 24 Hour (glipiZIDE XL) Take 1 Tab by mouth 2 times a day. 180 Tab 3 03/06/2020 Active amLODIPine Besylate 5 MG Oral Tablet (NORVASC)Indications: HTN, goal below 130/80 TAKE 1 TABLET BY MOUTH EVERY DAY 90 Tab 3 04/03/2020 Active Losartan Potassium 100 MG Oral Tablet (COZAAR)Indications:H TN, goal below 140/90 Take 1 Tab by mouth daily. 90 Tab 3 04/05/2020 Active hydroCHLOROthiazide 12.5 MG Oral Tablet (HYDRODIURIL)Indicati ons:HTN, goal below 140/90 Take 1 Tab by mouth daily. 90 Tab 3 04/05/2020 Active metFORMIN HCl 500 MG Oral Tablet (GLUCOPHAGE) TAKE 1 TABLET BY MOUTH EVERY DAY WITH BREAKFAST 90 Tab 1 04/13/2020 Active Trulicity 0.75 MG/0.5ML Subcutaneous Solution Pen-injector (Dulaglutide) Inject 0.75 mg under the skin once a week. 2 mL 5 05/29/2020 Active documented as of this encounter (statuses as of 05/29/2020) Active Problems Problem Noted Date Hypertensive kidney [...] as of this encounter (statuses as of 05/29/2020) Resolved Problems Problem Noted Date Resolved Date [...] Markers for Patients with Cardiovascular Disease Project #[id number] PI: Francoise Tomlin MD Please call [phone] with study related questions INTERFACED RESULT 11/17/2008 10/17/2011 GENOMICS CARDIO RESEARCH OTHER*[id number] 200806/25/2016 Overview: Renamed Per Clinical Trials Billing Project. Study Titile: Genomic Markers for Patients with Cardiovascular Disease Project #[id number] PI: Francoise Tomlin MD Please call [phone] with study related questions CLASS I-II ANGINA [...] as of this encounter (statuses as of 05/29/2020) Immunizations Name Administration Dates Next Due Pneumococcal [...] Notes * Telephone Encounter - Katarzyna Sawyer [facility] - 05/29/2020 3:34 PM EST Called patient back to advise him that I will get him in touch with pharmacy reimbursement. From [employer]under[employer], his insurance is his 's plan that she gets through her employer, so coupons might be an option for him. Thank you! Katarzyna Sawyer, PharmD [facility] Power House Engineer Medication Therapy Disease Management 05/29/2020, 3:38 PM Ph. [phone] * Telephone Encounter - Walter Starks OSA - 05/29/2020 3:27 PM EST Pt calling to speak /[facility] regarding Trulicity medication that was called to pharmacy today stating he was told his copay would be $800. Pt cannot afford this- please advise back at [phone]. Thank you, Walter Starks [facility] Speech And Drama Teacher I documented in this encounter Plan of Treatment Upcoming Encounters Date Type Specialty Care Team Description 06/21/2020 Office Visit Cardiology Azael Lozano MD [address] [place] [address] [phone] 07/10/2020 Office Visit Pharmacy [facility] [place] [address] [place] [address] 10/26/2020 Office Visit Family Medicine Monty Dumont MD [address] [place] [address] [phone] Health Maintenance Due Date Last Done Comments Dexa Scan 1986 Zoster Vaccines (1 of 2) 1986 *DEPRESSION SCREENING,ANNUAL FOR PTS 12 AND OVER 04/29/2020 CKD HGB USE SMARTSET 06318 09/19/202009/19, 04/27/2019, 03/20/2018, Additional history exists CKD GFR USE SMARTSET 88403 10/17/202004/18, 10/27/2019, 09/20/2019, Additional history exists DIABETES-HGBA1C EVERY 6 MONTHS 10/17/2020 04/18/2020, 10/27/2019, 01/12/2019, Additional history exists COLONOSCOPY-EVERY 5 YRS AGES 18-100 03/20/2021 03/20/2016, 04/30/2010, 02/05/2002 CKD PHOS USE SMARTSET 53753 04/18/2021 12/0 05/2019, 04/27/2019, 03/20/2018 Yearly B-12 04/18/2021 04/18/2020, 04/18, [...] Documents on File Type Date Recorded Patient Puddler Pile Driving Expl anation Advanced Directive 11/15/2008 12:00 AM [...] the patient have Health Care Power of Distribution Operations Manager? Yes, not currently available Full Code [...]
--- OUTSIDE RECORDS SUMMARY | 2023-02-21 02:46 | External Medical Summary | Summary of Care ---
Author Name Unknown Organization [place] [address] Care Team Providers Care Microphone Operator Name Role Phone Monty Dumont MD Primary Care Provide r Reason for Visit * Reason Onset Date Comments medication change 06/29/2020 Encounter Details Date Type Department Care Team Description 06/29/2020 Telephone Cardiology, [facility] [address] [place] [address] Azael Lozano MD [address] [facility] [address] [place] [address] [phone] medication change Allergies No Known Active Allergiesdocumented as of this encounter (statuses as of 06/29/2020) Medications Medication Sig Dispensed Refills Start Date [...] 1 11/17/2018 Active Ranolazine ER 1000 MG [id number]:Ch est pain,Unstable angina (HCC) TAKE 1 TABLET [...] mouth daily. 100 Tab 3 06/29/2020 Active Losartan Potassium-HCTZ 100-12.5 MG Oral TabletIndications: HTN, goal below 140/90 Take 1 Tab by mouth daily. 90 Tab 3 05/31/2020 06/29/2020 Discontinued documented as of this encounter (statuses as of 06/29/2020) Active Problems Problem Noted Date Hypertensive kidney [...] as of this encounter (statuses as of 06/29/2020) Resolved Problems Problem Noted Date Resolved Date [...] Aortic root 4.4 cm 4.29.2009 echo at [facility]. HTN, goal below 130/80 06/14/2009 [...] Markers for Patients with Cardiovascular Disease Project #[id number] PI: Francoise Tomlin MD Please call [phone] with study related questions INTERFACED RESULT 11/17/2008 10/17/2011 GENOMICS CARDIO RESEARCH OTHER*[id number] 200806/25/2016 Overview: Renamed Per Clinical Trials Billing Project. Study Titile: Genomic Markers for Patients with Cardiovascular Disease Project #[id number] PI: Francoise Tomlin MD Please call [phone] with study related questions CLASS I-II ANGINA [...] as of this encounter (statuses as of 06/29/2020) Immunizations Name Administration Dates Next Due Pneumococcal [...] Comments:quit 30 yrs ago, wh ile in [employer] for 4 years Alcohol Use Drinks/Week oz/Week [...] encounter Miscellaneous Notes * Addendum Note - Ravi Solano LPN - 06/29/2020 11:00 AM EST Addended by: RAVI SOLANO on: 06/29/2020 11:00 AM Modules accepted: Orders * Telephone Encounter - Ravi Solano LPN - 06/29/2020 10:59 AM EST Order signed by provider. * Telephone Encounter - Aguilar Hanson RN - 06/29/2020 7:[address] Lozano I received a notice from the patient's pharmacy that the patient needs new script. He no longer takes the losartan-htcz but is still on the losartan I pended a script below for losartan 100mg daily. Please review the script to make sure that is what you want. documented in this encounter Plan of Treatment Upcoming Encounters Date Type Specialty Care Team Description 07/10/2020 Office Visit Pharmacy [facility] [address] [place] [address] 10/26/2020 Office Visit Family Medicine Monty Dumont MD [address] [place] [address] [phone] 02/02/2021 Office Visit Cardiology Azael Lozano MD [address] [place] [address] [phone] Health Maintenance Due Date Last Done Comments Dexa Scan 1986 Zoster Vaccines (1 of 2) 1986 *DEPRESSION SCREENING,ANNUAL FOR PTS 12 AND OVER 04/29/2020 CKD HGB USE SMARTSET 75123 09/19/202009/19, 04/27/2019, 03/20/2018, Additional history exists DIABETES-HGBA1C EVERY 6 MONTHS 10/17/2020 04/18/2020, 10/27/2019, 01/12/2019, Additional history exists CKD GFR USE SMARTSET 99619 12/19/202006/21, 04/18/2020, 10/27/2019, Additional history exists COLONOSCOPY-EVERY 5 YRS AGES 18-100 03/20/2021 03/20/2016, 04/30/2010, 02/05/2002 CKD PHOS USE SMARTSET 79244 04/18/2021 1205/2019, 04/27/2019, 03/20/2018 Yearly B-12 04/18/2021 [...] Documents on File Type Date Recorded Patient Central Sterile Tech Expl anation Advanced Directive 11/15/2008 12:00 AM [...] the patient have Health Care Power of Twill Cutter? Yes, not currently available Full Code 09/15/2009 [...]
--- OUTSIDE RECORDS SUMMARY | 2023-02-21 02:46 | External Medical Summary | Summary of Care ---
Author Name Unknown Organization [place] [address] Care Team Providers Care Rotor Balancer Name Role Phone Monty Maria MD Primary Care Provide r Reason for Visit * Reason Onset Date Comments Medication Refill 05/30/2020 Encounter Details Date Type Department Care Team Description 05/30/2020 Refill Family Practice [facility] [address] [place] [address] Monty Maria MD [address] [facility] [address] [phone] Dyslipidemia, goal LDL below 70; Dyslipidemia, goal LDL below 160; Mixed dyslipidemia Allergies No Known Active Allergiesdocumented as of this encounter (statuses as of 05/30/2020) Medications Medication Sig Dispensed Refills Start Date [...] 15 MINUTES. 25 Tab 1 11/17/2018 Active Losartan Potassium-HCTZ 100-12.5 MG per tabletIndications: HTN, goal below 140/90 Take 1 Tab by mouth daily. 90 Tab 3 04/14/2019 Active Additional Information Patient not taking. Reported on 10/27/2019 Ranolazine ER 1000 MG [id number]:Ch est pain,Unstable angina (HCC) TAKE 1 TABLET [...] a week. 2 mL 5 05/29/2020 Active Rosuvastatin Calcium 20 MG Oral Tablet (Crestor)Indicatio ns:Dyslipidemia, goal LDL below 70,Dyslipidemia, goal LDL below 160,Mixed dyslipidemia Take 1 Tab by mouth daily. 90 Tab 4 05/30/2020 Active rosuvastatin (CRESTOR) 20 MG TabletIndications: Dyslipidemia, goal LDL below 70,Dyslipidemia, goal LDL below 160,Mixed dyslipidemia TAKE 1 TABLET DAILY AT 5 P.M. IN THE AFTERNOON 90 Tab 4 03/04/2019 05/30/2020 Discontinue d(Refill) documented as of this encounter (statuses as of 05/30/2020) Active Problems Problem Noted Date Hypertensive kidney [...] as of this encounter (statuses as of 05/30/2020) Resolved Problems Problem Noted Date Resolved Date [...] Aortic root 4.4 cm 4.29.2009 echo at [facility]. HTN, goal below 130/80 06/14/2009 [...] Markers for Patients with Cardiovascular Disease Project #[id number] PI: Francoise Tomlin MD Please call [phone] with study related questions INTERFACED RESULT 11/17/2008 10/17/2011 GENOMICS CARDIO RESEARCH OTHER*[id number] 200806/25/2016 Overview: Renamed Per Clinical Trials Billing Project. Study Titile: Genomic Markers for Patients with Cardiovascular Disease Project #[id number] PI: Franocise Tomlin MD Please call [phone] with study related questions CLASS I-II ANGINA [...] as of this encounter (statuses as of 05/30/2020) Immunizations Name Administration Dates Next Due Pneumococcal [...] Comments:quit 30 yrs ago, wh ile in [employer] for 4 years Alcohol Use Drinks/Week oz/Week [...] encounter Miscellaneous Notes * Telephone Encounter - Monty Maria MD - 05/30/2020 2:51 PM EST Signed Prescriptions: Disp Refills Rosuvastatin Calcium 20 MG Oral Tablet (Cr*90 Tab 4 Sig: Take 1 Tab by mouth daily. 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 Dyslipidemia, goal LDL below 70 E78.5 S/P angioplasty with stent Z95.820 DM type 2, goal A1C to be determined ([facility]) E11.9 HTN, goal below 140/90 I10 Diabetes mellitus with stage 3 chronic kidney disease ([facility]) E11.22, N18.30 History of colon polyps Z86.010 Stable angina ([facility]) I20.8 Hypertensive kidney disease with stage 3b chronic kidney disease I12.9, N18.32 Labs: CREATININE(mg/dL) Frida Dt/Tm Resulted Value Status 04/18/20 8:29A 04/18/20 1.9* FINAL POTASSIUM(mmol/L) Frida Dt/Tm Resulted Value Status 04/18/20 8:29A 04/18/20 5.0 FINAL TSH(uIU/mL) Frida Dt/Tm Resulted Value Status 01/01/17 1:44P 01/01/17 2.81 FINAL LDL (CALCULATED)(mg/dL) Frida Dt/Tm Resulted Value Status 10/27/19 9:03A 10/27/19 30 FINAL LDL DIRECT(REFLEX)(mg/dL) Frida Dt/Tm Resulted Value Status 10/27/19 9:03A 10/27/19 FINAL Value: NOT APPLICABLE ALT(U/L) Frida Dt/Tm Resulted Value Status 04/18/20 8:29A 04/18/20 23 FINAL Hemoglobin AIC Results: HEMOGLOBIN, A1C(%) Frida Dt/Tm Resulted Value Status 04/18/20 8:29A 04/18/20 9.7* FINAL 10/27/19 9:03A 10/27/19 6.4* FINAL 01/12/19 2:01P 01/12/19 6.5* FINAL documented in this encounter Plan of Treatment Upcoming Encounters Date Type Specialty Care Team Description 06/21/2020 Office Visit Cardiology Azael Lozano MD [address] [place] [address] [phone] 07/10/2020 Office Visit Pharmacy [facility] [address] [place] [address] 10/26/2020 Office Visit Family Medicine Monty Maria MD [address] [place] [address] [phone] Health Maintenance Due Date Last Done Comments Dexa Scan 1986 Zoster Vaccines (1 of 2) 1986 *DEPRESSION SCREENING,ANNUAL FOR PTS 12 AND OVER 04/29/2020 CKD HGB USE SMARTSET 89398 09/19/202009/19, 04/27/2019, 03/20/2018, Additional history exists CKD GFR USE SMARTSET 38931 10/17/202004/18, 10/27/2019, 09/20/2019, Additional history exists DIABETES-HGBA1C EVERY 6 MONTHS 10/17/2020 04/18/2020, 10/27/2019, 01/12/2019, Additional history exists COLONOSCOPY-EVERY 5 YRS AGES 18-100 03/20/2021 03/20/2016, 04/30/2010, 02/05/2002 CKD PHOS USE SMARTSET 86528 04/18/2021 12/0 05/2019, 04/27/2019, 03/20/2018 Yearly B-12 [...] Documents on File Type Date Recorded 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 Yes, not currently available Full Code [...]
--- OUTSIDE RECORDS SUMMARY | 2023-02-21 02:46 | External Medical Summary | Summary of Care ---
Author Name Unknown Organization [place] [address] Care Team Providers Care Supervisor Telephone Clerks Name Role Phone Monty Dumont MD Primary Care Provide r Reason for Visit * Reason Onset Date Comments Medication Refill 05/31/2020 Encounter Details Date Type Department Care Team Description 05/31/2020 Refill Family Practice [facility] 132 [facility] [place] [address] Monty Dumont MD 132 [facility] [place] [address] [phone] HTN, goal below 140/90 Allergies No Known Active Allergiesdocumented as of this encounter (statuses as of 05/31/2020) Medications Medication Sig Dispensed Refills Start Date [...] 1 11/17/2018 Active Ranolazine ER 1000 MG [id number]:Trini st pain,Unstable angina (HCC) TAKE 1 TABLET TWICE A DAY 180 Tab 4 06/11/2019 Active clopidogrel (PLAVIX) 75 MG TabletIndications:A ortocoronary bypass status,Acute coronary syndrome (HCC),Chronic coronary artery disease,Enlarged aorta (HCC) Take 1 Tab by mouth daily. 100 Tab 1 01/26/2020 Active Isosorbide Mononitrate ER 120 MG TB24 TAKE 1 TABLET BY MOUTH EVERY MORNING 90 Tab 1 01/28/2020 Active Metoprolol Succinate ER 25 MG Oral Tablet Extended Release 24 Hour (toPROL XL)Indications:Bumper And Painter shanique coronary artery disease,Aortocorona ry bypass status,HTN, [...] Active Losartan Potassium 100 MG Oral Tablet (COZAAR)Indications :HTN, goal below 140/90 Take 1 Tab by mouth daily. 90 Tab 3 04/05/2020 Active hydroCHLOROthiazide 12.5 MG Oral Tablet (HYDRODIURIL)Indica tions:HTN, goal below 140/90 Take 1 Tab by [...] 05/30/2020 Active Losartan Potassium-HCTZ 100-12.5 MG Oral TabletIndications:H TN, goal below 140/90 Take 1 Tab by mouth daily. 90 Tab 3 05/31/2020 Active Losartan Potassium-HCTZ 100-12.5 MG per tabletIndications:H TN, goal below 140/90 Take 1 Tab by mouth daily. 90 Tab 3 04/14/2019 05/31/2020 Discontinued (Refill) documented as of this encounter (statuses as of 05/31/2020) Active Problems Problem Noted Date Hypertensive kidney [...] as of this encounter (statuses as of 05/31/2020) Resolved Problems Problem Noted Date Resolved Date [...] Markers for Patients with Cardiovascular Disease Project #[id number] PI: Francoise Tomlin MD Please call [phone] with study related questions INTERFACED RESULT 11/17/2008 10/17/2011 GENOMICS CARDIO RESEARCH OTHER*[id number] 200806/25/2016 Overview: Renamed Per Clinical Trials Billing Project. Study Titile: Genomic Markers for Patients with Cardiovascular Disease Project #[id number] PI: Francoise Tomlin MD Please call [phone] with study related questions CLASS I-II ANGINA [...] as of this encounter (statuses as of 05/31/2020) Immunizations Name Administration Dates Next Due Pneumococcal [...] Comments:quit 30 yrs ago, wh ile in [employer] for 4 years Alcohol Use Drinks/Week oz/Week [...] Miscellaneous Notes * Telephone Encounter - Monty Dumont MD - 05/31/2020 1:19 PM EST Signed Prescriptions: Disp Refills Losartan Potassium-HCTZ 100-12.5 MG Oral T*90 Tab 3 Sig: Take 1 Tab by mouth daily. Authorizing Provider: MONTY DUMONT * Telephone Encounter - Deanna Avelar CPhT - 05/31/2020 12:49 PM EST Pending Prescriptions: Disp Refills Losartan Potassium-HCTZ 100-12.5 MG Oral *90 Tab 3 Sig: Take 1 Tab by mouth daily. Last Office/Telemedicine Visit: 04/27/2020 Next Office Visit: 10/26/2020 Scheduled Provider(s): Monty Dumont MD If no future appointments scheduled, and last appointment is greater than a year ago, please schedule patient for a follow-up appointment Last date the medication was ordered: 04.14.19 Pharmacy: [id number] [place] Is this request for a controlled substance?No Urine Drug Screen:No results found for this or any previous visit. Patient Phone Numbers Labs: Lab Results Component Value Date/Time CREAT 1.9 (H) 04/18/2020 08:29 AM POTASSIUM 5.0 04/18/2020 08:29 AM TSH 2.81 01/01/2017 01:44 PM LDLCALC 30 10/27/2019 09:03 AM LDLDIRECT 50 10/24/2016 11:50 AM ALT 23 04/18/2020 08:29 AM HGBA1C 9.7 (H) 04/18/2020 08:29 AM documented in this encounter Plan of Treatment Upcoming Encounters Date Type Specialty Care Team Description 06/21/2020 Office Visit Cardiology Azael Lozano MD [address] [place] [address] [phone] 07/10/2020 [facility] [address] [place] [address] 10/26/2020 Office Visit Family Medicine Monty Dumont MD [address] [place] [address] [phone] Health Maintenance Due Date Last Done Comments Dexa Scan 1986 Zoster Vaccines (1 of 2) 1986 *DEPRESSION SCREENING,ANNUAL FOR PTS 12 AND OVER 04/29/2020 CKD HGB USE SMARTSET 52734 09/19/202009/19, 04/27/2019, 03/20/2018, Additional history exists CKD GFR USE SMARTSET 01204 10/17/202004/18, 10/27/2019, 09/20/2019, Additional history exists DIABETES-HGBA1C EVERY 6 MONTHS 10/17/2020 04/18/2020, 10/27/2019, 01/12/2019, Additional history exists COLONOSCOPY-EVERY 5 YRS AGES 18-100 03/20/2021 03/20/2016, 04/30/2010, 02/05/2002 CKD PHOS USE SMARTSET 19395 04/18/202105/2019, 04/27/2019, 03/20/2018 Yearly B-12 04/18/2021 04/18/2020, [...] encounter Visit Diagnoses Diagnosis HTN, goal below 140/90 Unspecified essential hypertension documented in this encounter Advance Directives Documents on File Type Date Recorded Patient Fan Mail Editor Expl anation Advanced Directive 11/15/2008 12:00 AM [...] the patient have Health Care Power of Street Car Inspector? Yes, not currently available Full Code [...]
--- OUTSIDE RECORDS SUMMARY | 2023-02-21 02:46 | External Medical Summary ---
Author Name Unknown Address Unknown Organization K0G:LABORATORY [facility] [facility] [address] - [address] [place] [address] Laboratory Report Ordering Provider Test Date Status RUSSELL CONTI 06/21/2020 15:37:24 Final Observation Date Value Abnormality Reference (Units ) Status BUN 06/21/2020 15:37:24 43 Above high normal 6-20 (mg/dL) Final Creatinine 06/21/2020 15:37:24 1.9 Above high normal 0.6-1.2 (mg/dL) Final Glomerular filtration rate/1.73 sq M.predicted [Volume Rate/Area] in Serum, Plasma or Blood by Creatinine-based formula (CKD-EPI) 06/21/2020 15:37:24 32.7 Below low normal >=60.0 (mL/min) Final Performing Location LABORATORY [facility] [employer] [address] - [address] [place] [address]
--- OUTSIDE RECORDS SUMMARY | 2023-02-21 02:46 | External Medical Summary ---
Author Name Unknown Address Unknown Organization K01:LABORATORY [facility] [place] [address] [place] [address] Laboratory Report Ordering Provider Test Date Status RUSSELL CONTI 06/21/2020 15:37:24 Final Observation Date Value Abnormality Reference (Units ) Status TSH 06/21/2020 15:37:24 2.56 0.27-4.20 (uIU/mL) Final Performing Location LABORATORY [facility] [place] - [address] [place] [address]
--- OUTSIDE RECORDS SUMMARY | 2023-02-21 02:46 | External Medical Summary | Summary of Care ---
Author Name Unknown Organization [place] [address] Care Team Providers Care Direct Service Professional Name Role Phone Monty Dumont MD Primary Care Provide r Reason for Referral * Evaluate & Treat - Unlimited Visits (Within 10 days (routine)) Status Reason Specialty Diagnoses / Procedures Referred By Contact Referred To Contact Pending Review Specialty Services Required Nephrology Diagnoses 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) Azael Lozano MD 132 [facility] [place] [address] Patricia Mendoza MD [address] [place] [address] Electronically signed by Azael Lozano MD at Reason for Visit * Reason Onset Date Comments Test Results 06/22/2020 Encounter Details Date Type Department Care Team Description 06/22/2020 Telephone Cardiology, [facility] [address] [place] [address] Azael Lozano MD 132 [facility] [place] [address] [phone] Test Results Allergies No Known Active Allergiesdocumented as of this encounter (statuses as of 06/23/2020) Medications Medication Sig Dispensed Refills Start Date End Date Status ONE TOUCH ULTRA DEVIIndications:DM type 2, not at goal ([facility]) check daily 1 0 12/11/2005 [...] Reported on 06/21/2020 nitroglycerin (NITROSTAT) 0.4 MG SUBLIndications:Chron ic coronary artery disease DISSOLVE 1 TABLET UNDER THE TONGUE EVERY 5 MINUTES FOR CHEST PAIN. UP TO 3 DOSES IN 15 MINUTES. 25 Tab 1 11/17/2018 Active Ranolazine ER 1000 MG [id number]:Chest pain,Unstable angina (HCC) TAKE 1 TABLET TWICE [...] 06/21/2020 Rosuvastatin Calcium 20 MG Oral Tablet (Crestor)Indications: Dyslipidemia, goal LDL below 70,Dyslipidemia, goal LDL below 160,Mixed dyslipidemia Take 1 Tab by mouth daily. 90 Tab 4 05/30/2020 Active Losartan Potassium-HCTZ 100-12.5 MG Oral TabletIndications:HTN , goal below 140/90 Take 1 Tab by mouth daily. 90 Tab 3 05/31/2020 Active Additional Information Patient not taking. Reported on 06/21/2020 documented as of this encounter (statuses as of 06/23/2020) Active Problems Problem Noted Date Hypertensive kidney [...] as of this encounter (statuses as of 06/23/2020) Resolved Problems Problem Noted Date Resolved Date [...] Aortic root 4.4 cm 4.29.2009 echo at [facility]. HTN, goal below 130/80 06/14/2009 [...] Markers for Patients with Cardiovascular Disease Project #[id number] PI: Francoise Tomlin MD Please call [phone] with study related questions INTERFACED RESULT 11/17/2008 10/17/2011 GENOMICS CARDIO RESEARCH OTHER*[id number] 200806/25/2016 Overview: Renamed Per Clinical Trials Billing Project. Study Titile: Genomic Markers for Patients with Cardiovascular Disease Project #[id number] PI: Francoise Tomlin MD Please call [phone] with study related questions CLASS I-II ANGINA [...] as of this encounter (statuses as of 06/23/2020) Immunizations Name Administration Dates Next Due Pneumococcal [...] Comments:quit 30 yrs ago, wh ile in [employer] for 4 years Alcohol Use Drinks/Week oz/Week [...] encounter Miscellaneous Notes * Telephone Encounter - Leonila Hadley OSA - 06/23/2020 8:40 AM EST Pt scheduled * Telephone Encounter - Constance Maier LPN - 06/22/2020 6:25 PM EST Please assist with scheduling. * Telephone Encounter - Monty Dumont MD - 06/22/2020 4:43 PM EST Can see MTM for uncontrolled diabetes Referral signed for nephro * Telephone Encounter - Aguilar Hanson RN - 06/22/2020 12:53 PM EST Called and spoke to the patient by phone and reviewed the message with him from Dr. Lozano in regards to his lab work. He stated he understood. Order for Nephrology referral pended. Told to patient tocall Dr. Dumont also. * Telephone Encounter - Aguilar Hanson RN - 06/22/2020 12:52 PM EST ----- Message from Azael Lozano MD sent at 06/22/2020 12:01 PM EST ----- Renal function still depressed. Glucoses are elevated Stop hydrochlorothiazide. Increase fluid intake. Nephrology referral Contact PCP/MTM regarding elevated sugars Repeat BMP 2 weeks documented in this encounter Plan of Treatment Upcoming Encounters Date Type Specialty Care Team Description 06/28/2020 Office Visit Nephrology Washington Tello MD [address] [place] [address] [phone] 07/10/2020 Office Visit Pharmacy [facility] [address] [facility] [place] [address] 10/26/2020 Office Visit Family Medicine [facility] [address] [facility] [address] [phone] 02/02/2021 Office Visit Cardiology Azael Lozano MD [address] [place] [address] [phone] Scheduled Referrals Name Type Priority Associated Diagnoses Orde r Schedule NEPHROLOGY REFERRAL OP Referral Within 10 days (routine) 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) Ordered: 06/22/2020 Health Maintenance Due Date Last Done Comments Dexa Scan 1986 Zoster Vaccines (1 of 2) 1986 *DEPRESSION SCREENING,ANNUAL FOR PTS 12 AND OVER 04/29/2020 CKD HGB USE SMARTSET 26326 09/19/202009/19, 04/27/2019, 03/20/2018, Additional history exists DIABETES-HGBA1C EVERY 6 MONTHS 10/17/2020 04/18/2020, 10/27/2019, 01/12/2019, Additional history exists CKD GFR USE SMARTSET 66580 12/19/202006/21, 04/18/2020, 10/27/2019, Additional history exists COLONOSCOPY-EVERY 5 YRS AGES 18-100 03/20/2021 03/20/2016, 04/30/2010, 02/05/2002 CKD PHOS USE SMARTSET 30864 04/18/2021 12/05/2019, 04/27/2019, 03/20/2018 Yearly B-12 04/18/2021 [...] Documents on File Type Date Recorded Patient Bot[employer] Laboratory Assistant Expl anation Advanced Directive 11/15/2008 12:00 AM [...] the patient have Health Care Power of Payroll Benefits Clerk? Yes, not currently available Full Code [...]
--- OUTSIDE RECORDS SUMMARY | 2023-02-21 02:46 | External Medical Summary | Summary of Care ---
Author Name Unknown Organization [place] [address] Care Team Providers Care Penal Officer Name Role Phone Monty Dumont MD Primary Care Provide r Reason for Visit * Reason Comments Patient Assistance Program Encounter Details Date Type Department Care Team Description 05/30/2020 Pharmacy Pharmacy, [place] [address] [place] [address] Coordinator, Pharmacy [facility] [address] [id number] Diabetes mellitus with stage 3 chronic kidney [...] Reported on 10/27/2019 Ranolazine ER 1000 MG [id number]:Chest pain,Unstable angina (HCC) TAKE 1 TABLET TWICE [...] Markers for Patients with Cardiovascular Disease Project #[id number] PI: Francoise Tomlin MD Please call [phone] with study related questions INTERFACED RESULT 11/17/2008 10/17/2011 GENOMICS CARDIO RESEARCH OTHER*[id number] 200806/25/2016 Overview: Renamed Per Clinical Trials Billing Project. Study Titile: Genomic Markers for Patients with Cardiovascular Disease Project #[id number] PI: Francoise Tomlin MD Please call [phone] with study related questions CLASS I-II ANGINA [...] as of this encounter Progress Notes * Emma Burnett OSA - 05/30/2020 8:16 AM EST A new referral was received from Katarzyna Sawyer title PharmD, contact info Patient call encounter [facility] staff will review and call patient to discuss available assistance. Coverage: [employer] RX: Trulicity Pace: TBD Provider: Monty Dumont MD Co-pay savings card sent to patient. RXBin [id number] [facility] Group# TRUDTCEM Id# [id number] EXP 08/16/2021 NERIS Willard Pharm[employer] Offset Press Operator Apprentice 05/30/2020, 8:25 AM documented in this encounter Plan of Treatment Upcoming Encounters Date Type Specialty Care Team Description 06/21/2020 Office Visit Cardiology Azael Lozano MD [address] [place] [address] [phone] 07/10/2020 Office Visit Pharmacy [facility] [address] [place] [address] 10/26/2020 Office Visit Family Medicine Monty Dumont MD [address] [place] [address] [phone] Health Maintenance Due Date Last Done Comments Dexa Scan 1986 Zoster Vaccines (1 of 2) 1986 *DEPRESSION SCREENING,ANNUAL FOR PTS 12 AND OVER 04/29/2020 CKD HGB USE SMARTSET 00322 09/19/202009/19, 04/27/2019, 03/20/2018, Additional history exists CKD GFR USE SMARTSET 52128 10/17/202004/18, 10/27/2019, 09/20/2019, Additional history exists DIABETES-HGBA1C EVERY 6 MONTHS 10/17/2020 04/18/2020, 10/27/2019, 01/12/2019, Additional history exists COLONOSCOPY-EVERY 5 YRS AGES 18-100 03/20/2021 03/20/2016, 04/30/2010, 02/05/2002 CKD PHOS USE SMARTSET 35477 04/18/2021 1205/2019, 04/27/2019, 03/20/2018 Yearly B-12 04/18/2021 [...] Documents on File Type Date Recorded Patient 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 Yes, not currently available Full Code [...]
--- OUTSIDE RECORDS SUMMARY | 2023-02-21 02:46 | External Medical Summary | Summary of Care ---
Author Name Unknown Organization [place] [address] Care Team Providers Care Sheet Metal Supervisor Name Role Phone oMnty Dumont MD Primary Care Provide r Reason for Visit * Reason Onset Date Comments medication change 06/29/2020 Encounter Details Date Type Department Care Team Description 06/29/2020 Telephone Cardiology, [facility] [address] [place] [address] Azael Lozano MD 132 [facility] [place] [address] [phone] medication change Allergies No Known Active Allergiesdocumented [...] 1 11/17/2018 Active Ranolazine ER 1000 MG [id number]:Ch est pain,Unstable angina (HCC) TAKE 1 TABLET [...] root 4.4 cm 4.29.2009 echo at [facility]. HTN, goal below 130/80 06/14/2009 2 Overview: Per HTN Taxonomy. Type 2 diabetes mellitus wit h hemoglobin A1c goal of less than 7.0% 03/02/2009 03/27/2011 Overview: Modified per Diabetes protocol #14. ICD-10 update of inactive term EXAMINATION OF PARTICIPANT IN CLINICAL TRIAL-gen omics 11/17/2008 09/01/2009 Overview: Renamed Per Clinical Trials Billing Project. Study Titile: Genomic Markers for Patients with Cardiovascular Disease Project #[id number] PI: Francoise Tomlin MD Please call [phone] with study related questions INTERFACED RESULT 11/17/2008 10/17/2011 GENOMICS CARDIO RESEARCH OTHER*[id number] 200806/25/2016 Overview: Renamed Per Clinical Trials Billing Project. Study Titile: Genomic Markers for Patients with Cardiovascular Disease Project #[id number] PI: Francoise Tomlin MD Please call [phone] with study related questions CLASS I-II ANGINA [...] Comments:quit 30 yrs ago, wh ile in [employer] for 4 years Alcohol Use Drinks/Week oz/Week [...] Description 07/10/2020 Office Visit Pharmacy [facility] [place] [address] [place] [address] 10/26/2020 Office Visit Family Medicine Monty Dumont MD [address] [place] [address] [phone] 02/02/2021 Office Visit Cardiology Azael Lozano MD [address] [place] [address] [phone] Health Maintenance Due Date Last Done Comments Dexa Scan 1986 Zoster Vaccines (1 of 2) 1986 *DEPRESSION SCREENING,ANNUAL FOR PTS 12 AND OVER 04/29/2020 CKD HGB USE SMARTSET 44090 09/19/202009/19, 04/27/2019, 03/20/2018, Additional history exists DIABETES-HGBA1C EVERY 6 MONTHS 10/17/2020 04/18/2020, 10/27/2019, 01/12/2019, Additional history exists CKD GFR USE SMARTSET 97701 12/19/202006/21, 04/18/2020, 10/27/2019, Additional history exists COLONOSCOPY-EVERY 5 YRS AGES 18-100 03/20/2021 03/20/2016, 04/30/2010, 02/05/2002 CKD PHOS USE SMARTSET 81944 04/18/2021 1205/2019, 04/27/2019, 03/20/2018 Yearly B-12 04/18/2021 [...] Documents on File Type Date Recorded Patient Network Account Manager Expl anation Advanced Directive 11/15/2008 12:00 [...] the patient have Health Care Power of Pulmonary Physical Therapist? Yes, not currently available Full Code 09/15/2009 [...]
--- OUTSIDE RECORDS SUMMARY | 2023-02-21 02:46 | External Medical Summary | Summary of Care ---
Author Name Unknown Organization [place] [address] Care Team Providers Care Drier Operator Name Role Phone Monty Dumont MD Primary Care Provide r Reason for Visit * Reason Onset Date Comments Medication Question 06/05/2020 Encounter Details Date Type Department Care Team Description 06/05/2020 Telephone Pharmacy, [facility] [address] [place] [address] [facility] [address] [place] [address] Medication Question Allergies No Known Active Allergiesdocumented as of this encounter (statuses as of 06/05/2020) Medications Medication Sig Dispensed Refills Start Date [...] 1 11/17/2018 Active Ranolazine ER 1000 MG [id number]:Chest pain,Unstable angina (HCC) TAKE 1 TABLET TWICE [...] Active Losartan Potassium 100 MG Oral Tablet (COZAAR)Indications:HT N, goal below 140/90 Take 1 Tab by mouth daily. 90 Tab 3 04/05/2020 Active hydroCHLOROthiazide 12.5 MG Oral Tablet (HYDRODIURIL)Indicatio ns:HTN, goal below 140/90 Take 1 Tab by [...] 05/30/2020 Active Losartan Potassium-HCTZ 100-12.5 MG Oral TabletIndications:HTN, goal below 140/90 Take 1 Tab by mouth daily. 90 Tab 3 05/31/2020 Active documented as of this encounter (statuses as of 06/05/2020) Active Problems Problem Noted Date Hypertensive kidney [...] as of this encounter (statuses as of 06/05/2020) Resolved Problems Problem Noted Date Resolved Date [...] Aortic root 4.4 cm 4.29.2009 echo at [facility]. HTN, goal below 130/80 06/14/2009 2 Overview: Per HTN Taxonomy. Type 2 diabetes mellitus wit h hemoglobin A1c goal of less than 7.0% 03/02/2009 03/27/2011 Overview: Modified per Diabetes protocol #14. ICD-10 update of inactive term EXAMINATION OF PARTICIPANT IN CLINICAL TRIAL-gen omics 11/17/2008 09/01/2009 Overview: Renamed Per Clinical Trials Billing Project. Study Titile: Genomic Markers for Patients with Cardiovascular Disease Project #[id number] PI: Francoise Tomlin MD Please call [phone] with study related questions INTERFACED RESULT 11/17/2008 10/17/2011 GENOMICS CARDIO RESEARCH OTHER*[id number] 200806/25/2016 Overview: Renamed Per Clinical Trials Billing Project. Study Titile: Genomic Markers for Patients with Cardiovascular Disease Project #[id number] PI: Francoise Tomlin MD Please call [phone] with study related questions CLASS I-II ANGINA [...] as of this encounter (statuses as of 06/05/2020) Immunizations Name Administration Dates Next Due Pneumococcal [...] Comments:quit 30 yrs ago, wh ile in [employer] for 4 years Alcohol Use Drinks/Week oz/Week [...] Notes * Telephone Encounter - Katarzyna Sawyer RPh - 06/05/2020 9:36 AM EST Patient Phone Numbers Spoke to . Mail order doesn't recognize coupon card. Currently paying towards deductible. Copays are manageable once deductible is met. Will likely hit it within 8 weeks or so. Current Diabetes Medications Metformin 500 mg once daily INC: Glipizide ER 5 mg tab two tabs in AM and one tab in PM Lengthy discussion with about options at this point. Patient and decided that they will make diet changes and increase glipizide in the meantime. Patient does not like the idea of injectinginsulin daily at this time. Explained that glipizide eventually loses its potency with continued use, and patient and verbalized understanding. Will reassess therapeutic options at next visit, which at that point, patient will hopefully have hit deductible, allowing for trulicity to be more affordable. If trulicity is still not affordable, will have to revisit the conversation of having patient check his blood sugars daily and/or add on ins ulin. Explained the risk of hypoglycemia with increasing glipizide dose and educated patient's on the rule of 15s. Next Office Visit: 06/08/2020 Scheduled Provider(s): [facility] Katarzyna Sawyer, PharmD -[place] Equipment Validation Specialist Medication Therapy Disease Management 06/05/2020, 11:27 AM Ph. [phone] Electronically signed by Katarzyna Sawyer [facility], located within [facility] at 06/05/2020 11:28 AM EST * Telephone Encounter - Marlen Leary TECH - 06/05/2020 9:16 AM EST Pt would like return call [phone] to discuss the Trulicity. He said it will cost $800. documented in this encounter Plan of Treatment Upcoming Encounters Date Type Specialty Care Team Description 06/08/2020 Pharmacy Pharmacy [facility] [address] [place] [address] 06/21/2020 Office Visit Cardiology Azael Lozano MD [address] [place] [address] [phone] 07/10/2020 Office Visit Pharmacy [facility] [address] [place] [address] 10/26/2020 Office Visit Family Medicine Monty Dumont MD [address] [place] [address] [phone] Health Maintenance Due Date Last Done Comments Dexa Scan 1986 Zoster Vaccines (1 of 2) 1986 *DEPRESSION SCREENING,ANNUAL FOR PTS 12 AND OVER 04/29/2020 CKD HGB USE SMARTSET 17282 09/19/202009/19, 04/27/2019, 03/20/2018, Additional history exists CKD GFR USE SMARTSET 11331 10/17/202004/18, 10/27/2019, 09/20/2019, Additional history exists DIABETES-HGBA1C EVERY 6 MONTHS 10/17/2020 04/18/2020, 10/27/2019, 01/12/2019, Additional history exists COLONOSCOPY-EVERY 5 YRS AGES 18-100 03/20/2021 03/20/2016, 04/30/2010, 02/05/2002 CKD PHOS USE SMARTSET 84540 04/18/202105/2019, 04/27/2019, 03/20/2018 Yearly B-12 04/18/2021 04/18/2020, [...] Documents on File Type Date Recorded Patient Plunger Machine Operator Expl anation Advanced Directive 11/15/2008 [...] the patient have Health Care Power of Multiple Punch Press Operator? Yes, not currently available Full [...]
--- OUTSIDE RECORDS SUMMARY | 2023-02-21 02:46 | External Medical Summary | Summary of Care ---
Author Name Unknown Organization [place] [address] Care Team Providers Care Forest Fire Equipment Operator Name Role Phone Monty Dumont MD Primary Care Provide r Reason for Visit * Reason Comments Chronic Kidney Disease (CKD) * Evaluate & Treat - Unlimited Visits (Within 10 days (routine)) Status Reason Specialty Diagnoses / Procedures Referred By Contact Referred To Contact Pending Review Specialty Services Required Nephrology Diagnoses 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) Azael Lozano MD [address] [place] [address] Patricia Mendoza MD [address] [place] [address] Encounter Details Date Type Department Care Team Description 06/28/2020 Telemedicine Nephrology, [facility] [address] [facility] [place], [place] [id number] Washington Tello MD [address] [place] [address] [phone] Stage 3b chronic kidney disease* Allergies No Known Active Allergiesdocumented as of this encounter (statuses as of 06/28/2020) Medications Medication Sig Dispensed Refills Start Date End Date Status ONE TOUCH ULTRA DEVIIndications:DM type 2, not at goal (HCC) check daily 1 0 12/11/2005 Active ONE TOUCH ULTRA CONTROL SOLNIndications:DM type 2, not at goal (HCC) check daily 1 11 12/11/2005 Active ONE TOUCH ULTRA TEST STRPIndications:DM type 2, not at goal ([facility]) test daily 1 box 12/11/2005 Active ONE [...] 1 11/17/2018 Active Ranolazine ER 1000 MG [id number]:Trini st pain,Unstable angina (HCC) TAKE 1 TABLET [...] Oral Tablet Extended Release 24 Hour (toPROL XL)Indications:Broiler Manager shanique coronary artery disease,Aortocorona ry bypass status,HTN, [...] mouth daily. 90 Tab 3 05/31/2020 Active glipiZIDE ER 5 MG Oral Tablet Extended Release 24 Hour (glipiZIDE XL) Take 1 Tab by mouth 3 times a day. 270 Tab 3 06/26/2020 Active Losartan Potassium 100 MG Oral Tablet (COZAAR)Indications :HTN, goal below 140/90 Take 1 Tab by mouth daily. 90 Tab 3 04/05/2020 06/28/2020 Discontinued (Medication List Clean Up) hydroCHLOROthiazide 12.5 MG Oral Tablet (HYDRODIURIL)Indica tions:HTN, goal below 140/90 Take 1 Tab by mouth daily. 90 Tab 3 04/05/2020 06/28/2020 Discontinued (Medication List Clean Up) Trulicity 0.75 MG/0.5ML Subcutaneous Solution Pen-injector (Dulaglutide) Inject 0.75 mg under the skin once a week. 2 mL 5 05/29/2020 06/28/2020 Discontinued (Medication List Clean Up) documented as of this encounter (statuses as of 06/28/2020) Active Problems Problem Noted Date Hypertensive kidney [...] as of this encounter (statuses as of 06/28/2020) Resolved Problems Problem Noted Date Resolved Date [...] Aortic root 4.4 cm 4.29.2009 echo at [facility]. HTN, goal below 130/80 [...] Markers for Patients with Cardiovascular Disease Project #[id number] PI: Francoise Tomlin MD Please call [phone] with study related questions INTERFACED RESULT 11/17/2008 10/17/2011 GENOMICS CARDIO RESEARCH OTHER*[id number] 200806/25/2016 Overview: Renamed Per Clinical Trials Billing Project. Study Titile: Genomic Markers for Patients with Cardiovascular Disease Project #[id number] PI: Francoise Tomlin MD Please call [phone] with study related questions CLASS I-II ANGINA [...] as of this encounter (statuses as of 06/28/2020) Immunizations Name Administration Dates Next Due Pneumococcal [...] Comments:quit 30 yrs ago, wh ile in [employer] for 4 years Alcohol Use Drinks/Week oz/Week [...] as of this encounter Progress Notes * Washington Tello MD - 06/28/2020 2:00 PM EST After connecting to the patient via telephone, the patient was identified by name and date of . Patient was then informed that this was a telephone call only visit. The patient agreed to participate. Visit Disposition: Routine follow-up Total call duration was 21 minutes. Subjective: Dirk Garcia is a 85 year old male. Chief Complaint Patient presents with Chronic Kidney Disease (CKD) HPI: 85-year-old male with long-standing diabetes which is lately very uncontrolled with glucose readings of 400+ associated with pseudohyponatremia as well as hyperkalemia with potassium shift. And coinciding with this creatinine has gone up to 1.9 from his baseline of around 1.7. Other medical problems includes coronary artery disease status post CABG as well as stent hypertension. Patient is on losartan hydrochlorothiazide. At this point he feels good and denied having any complaints 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 Dyslipidemia, goal LDL below 70 E78.5 S/P angioplasty with stent Z95.820 DM type 2, goal A1C to be determined ([facility]) E11.9 HTN, goal below 140/90 I10 Diabetes mellitus with stage 3 chronic kidney disease ([facility]) E11.22, N18.30 History of colon polyps Z86.010 Stable angina ([facility]) I20.8 Hypertensive kidney disease with stage 3b chronic kidney disease I12.9, N18.32 Current Outpatient Medications Medication Sig Dispense Refill glipiZIDE ER 5 MG Oral Tablet Extended Release 24 Hour (glipiZIDE XL) Take 1 Tab by mouth 3 times a day. 270 Tab 3 Losartan Potassium-HCTZ 100-12.5 MG Oral Tablet Take 1 Tab by mouth daily. 90 Tab 3 Rosuvastatin Calcium 20 MG Oral Tablet (Crestor) Take 1 Tab by mouth daily. 90 Tab 4 metFORMIN HCl 500 MG Oral Tablet (GLUCOPHAGE) TAKE 1 TABLET BY MOUTH EVERY DAY WITH BREAKFAST 90 Tab 1 amLODIPine Besylate 5 MG Oral Tablet (NORVASC) TAKE 1 TABLET BY MOUTH EVERY DAY 90 Tab 3 Metoprolol Succinate ER 25 MG Oral Tablet Extended Release 24 Hour (toPROL XL) TAKE 2 TABLETS BY MOUTH EVERY DAY 180 Tab 1 Isosorbide Mononitrate ER 120 MG TB24 TAKE 1 TABLET BY MOUTH EVERY MORNING 90 Tab 1 clopidogrel (PLAVIX) 75 MG Tablet Take 1 Tab by mouth daily. 100 Tab 1 Ranolazine ER 1000 MG TB12 TAKE 1 TABLET TWICE A DAY 180 Tab 4 nitroglycerin (NITROSTAT) 0.4 MG SUBL DISSOLVE 1 [...] LANCETS MISC test daily 1 box 11 Review of patient's allergies indicates: No Known Allergies OBJECTIVE: There were no vitals taken for this visit. PHYSICAL EXAM: Normal speech No respiratory distress Awake and alert NEPH-FLOW Latest Ref Rng & Units 10/27/2019 04/18/2020 06/21/2020 Bun 6 - 20 mg/dL 33 (H) 35 (H) BUN 6 - 20 mg/dL 43 (H) Cr 0.6 - 1.2 mg/dL 1.7 (H) 1.9 (H) CREATININE 0.6 - 1.2 mg/dL 1.9 (H) eGFR >60 mL/min eGFR >60 36.5 (L) 31.1 (L) EGFR >=60.0 mL/min 32.7 (L) K 3.5 - 5.1 mmol/L 5.1 5.0 POTASSIUM 3.5 - 5.1 mmol/L 5.4 (H) Hb 14.0 - 16.8 g/dL Microalb/cr ratio <30 mg/g creat ASSESSMENT: Stage 3b chronic kidney disease (Primary) Slowly progressive CKD stage 3 secondary to combination factors mainly from diabetes. Recently his glucose is running significantly higher with the last 2 readings of 396 and 435. Such high readings of glucose is invariably associated with pseudohyponatremia as well as hyperkalemia which he did have. Renal function was also slightly worse in his recent blood test because of osmotic diuresis relatedwith extreme hyperglycemia. But even prior to this he did have CKD 3. Suggested that he needs to get the sugar down at least less than 250 to avoid osmotic diuresis as well as electrolyte issues. For now will continue with the losartan and hydrochlorothiazide, however if he continues to have glucose of more than 400 we do have to stop this drug to avoid electrolyte complication - RENAL FUNCTION PANEL; Future; Expected date: 06/28/2020 - PROTEIN/ CREATININE RATIO, URINE; Future; Expected date: 06/28/2020 Follow Up: Return in about 6 months (around 12/26/2020) for Clinic Visit. | For: Clinic Visit Thanks for the consult Dr Monty Dumont MD and MD Washington Pierre MD documented in this encounter Nursing Notes * Jimena Duncan RN - 06/28/2020 11:14 AM EST Does the patient have a home BP monitor and/or scale? no Can the patient check their BP and/or weight prior to speaking with the doctor or while talking with you? no Does the patient utilize [facility] home or have a home health nurse? no Has the patient had any recent hospital admission or emergency room visits? no If yes for what reason: Has the patient had any new health information that may be added to the chart? no If yes what information needs added: Does the patient have any questions or concerns for the doctor? no documented in this encounter Plan of Treatment Upcoming Encounters Date Type Specialty Care Team Description 07/10/2020 Office Visit Pharmacy [facility] [place] [address] [place] [address] 10/26/2020 Office Visit Family Medicine Monty Dumont MD [address] [place] [address] [phone] 02/02/2021 Office Visit Cardiology Azael Lozano MD [address] [place] [address] [phone] Scheduled Orders Name Type Priority Associated Diagnoses Orde r Schedule RENAL FUNCTION PANEL Lab Routine Stage 3b chronic kidney disease Expected: 06/28/2020 (Approximate), Expires: 12/25/2020 PROTEIN/ CREATININE RATIO, URINE Lab Routine Stage 3b chronic kidney disease Expected: 06/28/2020 (Approximate), Expires: 12/25/2020 Health Maintenance Due Date Last Done Comments Dexa Scan 1986 Zoster Vaccines (1 of 2) 1986 *DEPRESSION SCREENING,ANNUAL FOR PTS 12 AND OVER 04/29/2020 CKD HGB USE SMARTSET 70176 09/19/202009/19, 04/27/2019, 03/20/2018, Additional history exists DIABETES-HGBA1C EVERY 6 MONTHS 10/17/2020 04/18/2020, 10/27/2019, 01/12/2019, Additional history exists CKD GFR USE SMARTSET 80231 12/19/202006/21, 04/18/2020, 10/27/2019, Additional history exists COLONOSCOPY-EVERY 5 YRS AGES 18-100 03/20/2021 03/20/2016, 04/30/2010, 02/05/2002 CKD PHOS USE SMARTSET 26496 04/18/2021 1205/2019, 04/27/2019, 03/20/2018 Yearly B-12 04/18/2021 [...] as of this encounter Visit Diagnoses Diagnosis Stage 3b chronic kidney disease- Primary documented in this encounter Advance Directives Documents on File Type Date Recorded Patient Art Glass Designer Expl anation Advanced Directive 11/15/2008 12:00 AM [...] the patient have Health Care Power of Sports Instructor? Yes, not currently available Full Code 09/15/2009 [...]
--- OUTSIDE RECORDS SUMMARY | 2023-02-21 02:46 | External Medical Summary | Summary of Care ---
Author Name Unknown Organization [place] [address] Care Team Providers Care Oven Laborer Name Role Phone Monty Dumont MD Primary Care Provide r Reason for Referral * Evaluate & Treat - Unlimited Visits (Within 30 days (routine)) Status Reason Specialty Diagnoses / Procedures Referred By Contact Referred To Contact Pending Review Specialty Services Required Pharmacist / Pharmacy Diagnoses DM type 2, goal A1C to be determined (HCC) Monty Dumont MD [address] [place] [address] Electronically signed by Monty Dumont MD at Reason for Visit * Reason Onset Date Comments Test Results 04/18/2020 Encounter Details Date Type Department Care Team Description 04/18/2020 Telephone Family Practice [facility] [address] [facility] [place] [address] Monty Dumont MD [address] [place] [address] [phone] Test Results Allergies No Known Active Allergiesdocumented as of this encounter (statuses as of 06/13/2020) Medications Medication Sig Dispensed Refills Start Date End Date Status ONE TOUCH ULTRA DEVIIndications:DM type 2, not at goal (HCC) check daily 1 0 12/11/2005 Active ONE TOUCH ULTRA CONTROL SOLNIndications:DM type 2, not at goal (HCC) check daily 1 11 12/11/2005 Active ONE TOUCH ULTRA TEST STRPIndications:DM type 2, not at goal ([facility]) test daily 1 box 11 [...] 1 11/17/2018 Active Ranolazine ER 1000 MG OV92Vmordwkssqh:Trini st pain,Unstable angina (HCC) TAKE 1 TABLET [...] Oral Tablet Extended Release 24 Hour (toPROL XL)Indications:Optical Systems Engineer shanique coronary artery disease,Aortocorona ry bypass status,HTN, [...] WITH BREAKFAST 90 Tab 1 04/13/2020 Active rosuvastatin (CRESTOR) 20 MG TabletIndications:D yslipidemia, goal LDL below 70,Dyslipidemia, goal LDL below 160,Mixed dyslipidemia TAKE 1 TABLET DAILY AT 5 P.M. IN THE AFTERNOON 90 Tab 4 03/04/2019 05/30/2020 Discontinued (Refill) Losartan Potassium-HCTZ 100-12.5 MG per tabletIndications:H TN, goal below 140/90 Take 1 Tab by mouth daily. 90 Tab 3 04/14/2019 05/31/2020 Discontinued (Refill) JANUVIA 50 MG Tablet TAKE 1 TABLET DAILY 90 Tab 3 12/15/2019 05/29/2020 Discontinued (Medication/ Dose Changed) documented as of this encounter (statuses as of 06/13/2020) Active Problems Problem Noted Date Hypertensive kidney [...] as of this encounter (statuses as of 06/13/2020) Resolved Problems Problem Noted Date Resolved Date [...] Markers for Patients with Cardiovascular Disease Project #[id number] PI: Francoise Tomlin MD Please call [phone] with study related questions INTERFACED RESULT 11/17/2008 10/17/2011 GENOMICS CARDIO RESEARCH OTHER*[id number] 200806/25/2016 Overview: Renamed Per Clinical Trials Billing Project. Study Titile: Genomic Markers for Patients with Cardiovascular Disease Project #[id number] PI: Francoise Tomlin MD Please call [phone] with study related questions CLASS I-II ANGINA [...] as of this encounter (statuses as of 06/13/2020) Immunizations Name Administration Dates Next Due Pneumococcal [...] Comments:quit 30 yrs ago, wh ile in [employer] for 4 years Alcohol Use Drinks/Week oz/Week [...] encounter Miscellaneous Notes * Telephone Encounter - Leny Buckner LPN - 04/18/2020 5:22 PM EST Called pt, aware. Scheduling, please assist pt with appt for MTM Thank you * Telephone Encounter - Monty Dumont MD - 04/18/2020 5:17 PM EST Nursing, please call and inform pt. Labs looked good but a1c is higher This means diabetes is uncontrolled I htink pt should see MTM pharmcy to control diabetes Referral signed documented in this encounter Plan of Treatment Upcoming Encounters Date Type Specialty Care Team Description 06/21/2020 Office Visit Cardiology Azael Lozano MD [address] [place] [address] [phone] 07/10/2020 Office Visit [facility]acy [facility] [address] [place] [address] 10/26/2020 Office Visit Family Medicine Monty Dumont MD [address] [place] [address] [phone] Scheduled Referrals Name Type Priority Associated Diagnoses Orde r Schedule PHARMACIST MEDS THERAPY MGMT REFERRAL OP Referral Within 30 days (routine) DM type 2, goal A1C to be determined (HCC) Ordered: 04/18/2020 Health Maintenance Due Date Last Done Comments Dexa Scan 1986 Zoster Vaccines (1 of 2) 1986 *DEPRESSION SCREENING,ANNUAL FOR PTS 12 AND OVER 04/29/2020 CKD HGB USE SMARTSET 45244 09/19/202009/19, 04/27/2019, 03/20/2018, Additional history exists CKD GFR USE SMARTSET 04050 10/17/202004/18, 10/27/2019, 09/20/2019, Additional history exists DIABETES-HGBA1C EVERY 6 MONTHS 10/17/2020 04/18/2020, 10/27/2019, 01/12/2019, Additional history exists COLONOSCOPY-EVERY 5 YRS AGES 18-100 03/20/2021 03/20/2016, 04/30/2010, 02/05/2002 CKD PHOS USE SMARTSET 70928 04/18/2021 1205/2019, 04/27/2019, 03/20/2018 Yearly B-12 04/18/2021 [...] Documents on File Type Date Recorded Patient Program Manager Rn Expl anation Advanced Directive 11/15/2008 12:00 AM [...] the patient have Health Care Power of Claim Trainee? Yes, not currently available Full Code 09/15/2009 [...]
--- OUTSIDE RECORDS SUMMARY | 2023-02-21 02:46 | External Medical Summary | Summary of Care ---
Author Name Unknown Organization [place] [address] Care Team Providers Care Freight Breaker Name Role Phone Monty Maria MD Primary Care Provide r Reason for Visit * Reason Comments eRx-Medication Refill Encounter Details Date Type Department Care Team Description 07/11/2020 Refill Family Practice [facility] 132 [facility] [place] [address] Monty Maria MD 132 [facility] [place] [address] [phone] Allergies No Known Active Allergiesdocumented as of this encounter (statuses as of 07/12/2020) Medications Medication Sig Dispensed Refills Start Date End Date Status ONE TOUCH ULTRA DEVIIndications:DM type 2, not at goal ([facility]) check daily 1 0 12/11/2005 Active [...] 1 11/17/2018 Active Ranolazine ER 1000 MG [id number]:Ch est pain,Unstable angina (HCC) TAKE 1 TABLET [...] EVERY MORNING 90 Tab 1 07/12/2020 Active Isosorbide Mononitrate ER 120 MG TB24 TAKE 1 TABLET BY MOUTH EVERY MORNING 90 Tab 1 01/28/2020 07/12/2020 Discontinued documented as of this encounter (statuses as of 07/12/2020) Active Problems Problem Noted Date Hypertensive kidney [...] as of this encounter (statuses as of 07/12/2020) Resolved Problems Problem Noted Date Resolved Date [...] Aortic root 4.4 cm 4.29.2009 echo at [facility]. HTN, goal below 130/80 06/14/2009 [...] Markers for Patients with Cardiovascular Disease Project #[id number] PI: Francoise Tomlin MD Please call [phone] with study related questions INTERFACED RESULT 11/17/2008 10/17/2011 GENOMICS CARDIO RESEARCH OTHER*[id number] 200806/25/2016 Overview: Renamed Per Clinical Trials Billing Project. Study Titile: Genomic Markers for Patients with Cardiovascular Disease Project #[id number] PI: Francoise Tomlin MD Please call [phone] with study related questions CLASS I-II ANGINA [...] as of this encounter (statuses as of 07/12/2020) Immunizations Name Administration Dates Next Due Pneumococcal [...] Comments:quit 30 yrs ago, wh ile in [employer] for 4 years Alcohol Use Drinks/Week oz/Week [...] Telephone Encounter - Monty Maria MD - 07/12/2020 9:55 AM EST Signed Prescriptions: Disp Refills Isosorbide Mononitrate ER 120 MG Oral Tabl*90 Tab 1 Sig: TAKE 1 TABLET BY MOUTH EVERY MORNING Authorizing Provider: MONTY MARIA * Telephone Encounter - Jory Buchanan [facility] - 07/12/2020 9:53 AM EST Pending Prescriptions: Disp Refills Isosorbide Mononitrate ER 120 MG Oral Tabl*90 Tab 1 Sig: TAKE 1 TABLET BY MOUTH EVERY MORNING * Telephone Encounter - Jory Buchanan RP - 07/12/2020 9:53 AM EST Refill pharmacists currently not authorized to approve refills for this class of medication per refill protocol. Please approve if appropriate. Thank You, Jory Buchanan [facility] Clinical [facility]ist [facility] 07/12/2020, 9:53 AM documented in this encounter Plan of Treatment Upcoming Encounters Date Type Specialty Care Team Description 08/07/2020 Pharmacy Pharmacy [facility] [address] [place] [address] 10/26/2020 Office Visit Family Medicine Monty Maria MD [address] [place] [address] [phone] 02/02/2021 Office Visit Cardiology Azael Lozano MD [address] [place] [address] [phone] Health Maintenance Due Date Last Done Comments Dexa Scan 1986 Zoster Vaccines (1 of 2) 1986 *DEPRESSION SCREENING,ANNUAL FOR PTS 12 AND OVER 04/29/2020 CKD HGB USE SMARTSET 65728 09/19/202009/19, 04/27/2019, 03/20/2018, Additional history exists DIABETES-HGBA1C EVERY 6 MONTHS 10/17/2020 04/18/2020, 10/27/2019, 01/12/2019, Additional history exists CKD GFR USE SMARTSET 43443 12/19/202006/21, 04/18/2020, 10/27/2019, Additional history exists COLONOSCOPY-EVERY 5 YRS AGES 18-100 03/20/2021 03/20/2016, 04/30/2010, 02/05/2002 CKD PHOS USE SMARTSET 89844 04/18/202105/2019, 04/27/2019, 03/20/2018 Yearly B-12 04/18/2021 04/18/2020, [...] Documents on File Type Date Recorded Patient Washing Machine Operator Expl anation Advanced Directive 11/15/2008 [...] patient have Health Care Power of Director Trading? Yes, not currently available Full Code 09/15/2009 [...]
--- OUTSIDE RECORDS SUMMARY | 2023-02-21 02:46 | External Medical Summary | Summary of Care ---
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 (HCC)*; HTN, goal below 130/80; Aortocoronary bypass status; S/P angioplasty with stent; DM type 2, goal A1C to be determined ([facility]) Allergies No Known Active Allergiesdocumented as of this encounter (statuses as of 06/21/2020) Medications Medication Sig Dispensed Refills Start Date [...] 1 11/17/2018 Active Ranolazine ER 1000 MG AL72Mghqybddzmo:Chest pain,Unstable angina (HCC) TAKE 1 TABLET TWICE [...] as of this encounter (statuses as of 06/21/2020) Active Problems Problem Noted Date Hypertensive kidney [...] as of this encounter (statuses as of 06/21/2020) Resolved Problems Problem Noted Date Resolved Date [...] Aortic root 4.4 cm 4.29.2009 echo at [facility]. HTN, goal below 130/80 06/14/2009 [...] Markers for Patients with Cardiovascular Disease Project #[id number] PI: Francoise Tomlin MD Please call [phone] with study related questions INTERFACED RESULT 11/17/2008 10/17/2011 GENOMICS CARDIO RESEARCH OTHER*[id number] 200806/25/2016 Overview: Renamed Per Clinical Trials Billing Project. Study Titile: Genomic Markers for Patients with Cardiovascular Disease Project #[id number] PI: Francoise Tomlin MD Please call [phone] with study related questions CLASS I-II ANGINA [...] as of this encounter (statuses as of 06/21/2020) Immunizations Name Administration Dates Next Due Pneumococcal [...] Comments:quit 30 yrs ago, wh ile in [employer] Vacc[employer] for 4 years Alcohol Use Drinks/Week oz/Week [...] as of this encounter Progress Notes * Azael Lozano MD - 06/21/2020 3:15 PM EST June 21, 2020 Cardiology Follow Up Referring Provider: PCP: KALLI CHAPMAN [place] [id number] Chief Complaint: Routine followup coronary artery disease SUBJECTIVE: Dirk Garcia is a 85 year old year old male with cardiac [...] Notes no fevers chills or unexplained infections. Appetite and weight have been generally stable. No headaches or visual changes. Nosyncope or near syncope A Complete Review of 10 Systems is as stated above or negative. 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 Dyslipidemia, goal LDL below 70 E78.5 S/P angioplasty with stent Z95.820 DM type 2, goal A1C to be determined ([facility]) E11.9 HTN, goal below 140/90 I10 Diabetes mellitus with stage 3 chronic kidney disease ([facility]) E11.22, N18.30 History of colon polyps Z86.010 Stable angina ([facility]) I20.8 Hypertensive kidney disease with stage 3b chronic kidney disease I12.9, N18.32 Review of patient's allergies indicates: No Known Allergies Current Outpatient Medications Medication Sig Dispense Refill Rosuvastatin Calcium 20 MG Oral Tablet (Crestor) Take 1 Tab by mouth daily. 90 Tab 4 metFORMIN HCl 500 MG Oral Tablet (GLUCOPHAGE) TAKE 1 TABLET BY MOUTH EVERY DAY WITH BREAKFAST 90 Tab 1 hydroCHLOROthiazide 12.5 MG Oral Tablet (HYDRODIURIL) Take 1 Tab by mouth daily. 90 Tab 3 Losartan Potassium 100 MG Oral Tablet (COZAAR) Take 1 Tab by mouth daily. 90 Tab 3 amLODIPine Besylate 5 MG Oral Tablet (NORVASC) TAKE 1 TABLET BY MOUTH EVERY DAY 90 Tab 3 glipiZIDE ER 5 MG Oral Tablet Extended Release 24 Hour (glipiZIDE XL) Take 1 Tab by mouth 2 times a day. 180 Tab 3 Metoprolol Succinate ER 25 [...] TABLET TWICE A DAY 180 Tab 4 aspirin 81 MG chewable tablet Take 1 Tab by mouth daily. 34 Tab 11 Losartan Potassium-HCTZ 100-12.5 MG Oral Tablet Take 1 Tab by mouth daily. (Patient not taking: Reported on 06/21/2020) 90 Tab 3 Trulicity 0.75 MG/0.5ML Subcutaneous Solution Pen-injector (Dulaglutide) Inject 0.75 mg under the skin once a week. (Patient not taking: Reported on 06/21/2020) 2 mL 5 nitroglycerin (NITROSTAT) 0.4 MG SUBL DISSOLVE 1 TABLET UNDER THE TONGUE EVERY 5 MINUTES FOR CHEST PAIN. UP TO 3 DOSES IN 15 MINUTES. 25 Tab 1 isosorbide dinitrate (ISORDIL) 20 MG Tablet Take 1 Tab by mouth 3 times a day. at 8am, 12 noon and 4pm. (Patient not taking: Reported on 06/21/2020) 90 Tab 5 ONE TOUCH ULTRA CONTROL SOLN check daily 1 11 ONE TOUCH ULTRA DICK check daily 1 0 ONE TOUCH ULTRA TEST STRP test daily 1 box 11 ONE TOUCH ULTRASOFT LANCETS MISC test daily 1 box 11 OBJECTIVE/PHYSICAL EXAMINATION: Heart rate 56, blood pressure 136/80, weight 158 lb, temperature 97.3 General: no acute distress and stated age Head: normocephalic, no masses, lesions, tenderness or [...] no abdominal bruit, no femoral bruit Musculoskeletal: Wide-based gait disturbance, no joint inflammation, no deforming arthritis Extremities: no edema, no cyanosis, pulses intact 1+/4 right greater than left Neuro: grossly normal exam Data: EKG June 21, 2020, personally reviewed: Sinus bradycardia 56 beats per minute with right bundle-branch block [...] of December 2014 and July 2016 ASSESSMENT: 85 year old year old male History of remote coronary bypass grafting, November 2008 with chronic class 2 3 angina pectoris, stable. No cardiac issues voiced today Laboratory studies reviewed revealed recent increase increase in creatinine decline in GFR on routine studies of April 18, 2020. Patient on multiple renal dependent medications PLAN: Continue current therapies for now Laboratory studies ordered today including repeat renal function and TSH Will likely require nephrology referral DISPOSITION: Follow-up 6 months with patient report symptoms or complaints in the interim Azael Lozano MD [facility], [address] [address] Copy to be forwarded to [employer] [address] [place] [phone] documented in this encounter Nursing Notes * Aguilar Hanson RN - 06/21/2020 2:55 PM EST Examination Room: room 15 Name: Dirk Garcia Date of : (1935). Reason for Visit: follow up Interim Hospitalization(s): denies Problems/Concerns: denies Chest Pain/SOB: denies [facility] is a way you can talk to your provider online through e-mail. Would you like to sign up? I can activate it for you? 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 (HCC) S/P angioplasty with stent DM type 2, goal A1C to be determined ([facility]) 06/21/2020 3:37 PM EST Scheduled Orders Name Type Priority Associated Diagnoses Orde r Schedule EKG EKG Routine HTN, goal below 130/80 Aortocoronary bypass status 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 (HCC) S/P angioplasty with stent DM type 2, goal A1C to be determined ([facility]) Ordered: 06/21/2020 Health Maintenance Due Date Last Done Comments Dexa Scan 1986 Zoster Vaccines (1 of 2) 1986 *DEPRESSION SCREENING,ANNUAL FOR PTS 12 AND OVER 04/29/2020 CKD HGB USE SMARTSET 68982 09/19/202009/19, 04/27/2019, 03/20/2018, Additional history exists DIABETES-HGBA1C EVERY 6 MONTHS 10/17/2020 04/18/2020, 10/27/2019, 01/12/2019, Additional history exists CKD GFR USE SMARTSET 59736 12/19/202006/21, 04/18/2020, 10/27/2019, Additional history exists COLONOSCOPY-EVERY 5 YRS AGES 18-100 03/20/2021 03/20/2016, 04/30/2010, 02/05/2002 CKD PHOS USE SMARTSET 59812 04/18/2021 05/2019, 04/27/2019, 03/20/2018 Yearly B-12 04/18/2021 04/18/2020, [...] Associated Diagnosis Comments BASIC METABOLIC PANEL Routine 06/21/2020 3:37 PM EST HTN, goal below 130/80 Aortocoronary bypass status 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 >=60.0 mL/min [facility] 57-10 Sodium 132(L) 135 - 146 mmol/L [facility] 57-10 Potassium 5.4(H) 3.5 - 5.1 mmol/L [facility] 57-10 Chloride 95(L) 98 - 107 mmol/L [facility] 57-10 CO2 24 22 - 32 mmol/L [facility] 57[facility]10 Anion Gap 13 7 - 15 mmol/L [facility]10 Glucose 435(H) 70 - 120 mg/dL [facility] 57-10 Calcium 10.2 8.4 - 10.2 mg/dL [facility]10 Specimen Blood - Venous blood specime n (specimen) [facility] [place] [place] 57-10 [address] [place] [address] documented in this encounter Visit Diagnoses Diagnosis 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 (HCC)- Primary HTN, goal below 130/80 Unspecified essential hypertension Aortocoronary bypass status Postsurgical aortocoronary bypass status S/P angioplasty with stent Postsurgical percutaneous transluminal coronary angioplasty status DM type 2, goal A1C to be determined ([facility]) Type II or unspecified type diabetes mellitus without mention of complication, not stated as uncontrolled documented in this encounter Advance Directives Documents on File Type Date Recorded Patient Housekeeping Manager Expl anation Advanced Directive 11/15/2008 12:00 [...] patient have Health Care Power of Manager Web? Yes, not currently available Full Code 09/15/2009 [...]
--- OUTSIDE RECORDS SUMMARY | 2023-02-21 02:46 | External Medical Summary | Summary of Care ---
Author Name Unknown Organization [place] [address] Care Team Providers Care Laborer Stores Name Role Phone Monty Dumont MD Primary Care Provide r Reason for Visit * Reason Comments Appointment Encounter Details Date Type Department Care Team Description 08/07/2020 Pharmacy Pharmacy, [facility] 132 [place] [address] [facility] 132 [place] [address] 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)* Allergies No Known Active Allergiesdocumented as of this encounter (statuses as of 08/07/2020) Medications Medication Sig Dispensed Refills Start Date End Date Status ONE TOUCH ULTRA DEVIIndications:DM type 2, not at goal ([facility]) check daily 1 0 12/11/2005 Active ONE [...] 1 11/17/2018 Active Ranolazine ER 1000 MG VI36Mrwwrgclmjy:Chest pain,Unstable angina (HCC) TAKE 1 TABLET TWICE [...] as of this encounter (statuses as of 08/07/2020) Active Problems Problem Noted Date Hypertensive kidney [...] as of this encounter (statuses as of 08/07/2020) Resolved Problems Problem Noted Date Resolved Date [...] Aortic root 4.4 cm 4.29.2009 echo at [facility]. HTN, goal below 130/80 06/14/2009 [...] Markers for Patients with Cardiovascular Disease Project #[id number] PI: Francoise Tomlin MD Please call [phone] with study related questions INTERFACED RESULT 11/17/2008 10/17/2011 GENOMICS CARDIO RESEARCH OTHER*[id number] 200806/25/2016 Overview: Renamed Per Clinical Trials Billing Project. Study Titile: Genomic Markers for Patients with Cardiovascular Disease Project # PI: Francoise Tomlin MD Please call [phone] with study related questions CLASS I-II ANGINA [...] as of this encounter (statuses as of 08/07/2020) Immunizations Name Administration Dates Next Due Pneumococcal [...] Comments:quit 30 yrs ago, wh ile in [employer] for 4 years Alcohol Use Drinks/Week oz/Week [...] as of this encounter Progress Notes * Yana Johnson OSA - 08/07/2020 9:49 AM EDT Patient Phone Numbers Spoke with patient to schedule [facility] appointment for diabetes managment. Appointment scheduled as noted below. Next Office Visit: 09/15/2020 Scheduled Provider(s): [facility] NERIS Dao 08/07/2020, 9:49 AM documented in this encounter Plan of Treatment Upcoming Encounters Date Type Specialty Care Team Description 09/15/2020 Office Visit Pharmacy [facility] Nhung Brown [address] [place] [address] 10/26/2020 Office Visit Family Medicine Monty Dumnot MD [address] [place] [address] [place] [address] [phone] 02/02/2021 Office Visit Cardiology Azael Lozano MD [address] [place] [address] [phone] Health Maintenance Due Date Last Done Comments Dexa Scan 1986 Zoster Vaccines (1 of 2) 1986 *DEPRESSION SCREENING,ANNUAL FOR PTS 12 AND OVER 04/29/2020 CKD HGB USE SMARTSET 23978 09/19/202009/19, 04/27/2019, 03/20/2018, Additional history exists DIABETES-HGBA1C EVERY 6 MONTHS 10/17/2020 04/18/2020, 10/27/2019, 01/12/2019, Additional history exists CKD GFR USE SMARTSET 29198 12/19/202006/21, 04/18/2020, 10/27/2019, Additional history exists COLONOSCOPY-EVERY 5 YRS AGES 18-100 03/20/2021 03/20/2016, 04/30/2010, 02/05/2002 CKD PHOS USE SMARTSET 54269 04/18/2021 12/0 05/2019, 04/27/2019, 03/20/2018 Yearly B-12 [...] Documents on File Type Date Recorded Patient Product Development Manager Expl anation Advanced Directive 11/15/2008 12:00 [...] patient have Health Care Power of Web Press Jogger? Yes, not currently available Full Code 09/15/2009 [...]
--- OUTSIDE RECORDS SUMMARY | 2023-02-21 02:46 | External Medical Summary | Summary of Care ---
Author Name Unknown Organization [place] [address] Care Team Providers Care Helper Marble Finisher Name Role Phone Monty Dumont MD Primary Care Provide r Reason for Referral * Evaluate & Treat - Unlimited Visits (Within 10 days (routine)) Status Reason Specialty Diagnoses / Procedures Referred By Contact Referred To Contact Pending Review Specialty Services Required Nephrology Diagnoses 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) Azeal Lozano MD 132 [facility] [place] [address] Patricia Mendoza MD [address] [place] [address] Electronically signed by Azael Lozano MD at Reason for Visit * Reason Onset Date Comments Test Results 06/22/2020 Encounter Details Date Type Department Care Team Description 06/22/2020 Telephone Cardiology, [facility] [address] [place] [address] Azael Lozano MD 132 [facility] [place] [address] [phone] Test Results Allergies No Known Active Allergiesdocumented as of this encounter (statuses as of 06/23/2020) Medications Medication Sig Dispensed Refills Start Date End Date Status ONE TOUCH ULTRA DEVIIndications:DM type 2, not at goal ([facility]) check daily 1 0 12/11/2005 [...] 1 11/17/2018 Active Ranolazine ER 1000 MG JD43Ectbxgyynzq:Chest pain,Unstable angina (HCC) TAKE 1 TABLET TWICE [...] Markers for Patients with Cardiovascular Disease Project #[id number] PI: Francoise Tomlin MD Please call [phone] with study related questions INTERFACED RESULT 11/17/2008 10/17/2011 GENOMICS CARDIO RESEARCH OTHER*[id number] 200806/25/2016 Overview: Renamed Per Clinical Trials Billing Project. Study Titile: Genomic Markers for Patients with Cardiovascular Disease Project #[id number] PI: Francoise Tomlin MD Please call [phone] with study related questions CLASS I-II ANGINA [...] Comments:quit 30 yrs ago, wh ile in [employer] for 4 years Alcohol Use Drinks/Week oz/Week [...] Visit Nephrology Washington Tello MD [address] [place] [address] [phone] 07/10/2020 Office Visit Pharmacy [facility] 132 [facility] [place] [address] 10/26/2020 Office Visit Family Medicine [facility]ty [facility] [address] [facility] [address] [phone] 02/02/2021 Office Visit Cardiology Azael Lozano MD 132 [place] [address] [phone] Scheduled Referrals Name Type Priority Associated Diagnoses Orde r Schedule NEPHROLOGY REFERRAL OP Referral Within 10 days (routine) 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) Ordered: 06/22/2020 Health Maintenance Due Date Last Done Comments Dexa Scan 1986 Zoster Vaccines (1 of 2) 1986 *DEPRESSION SCREENING,ANNUAL FOR PTS 12 AND OVER 04/29/2020 CKD HGB USE SMARTSET 00411 09/19/202009/19, 04/27/2019, 03/20/2018, Additional history exists DIABETES-HGBA1C EVERY 6 MONTHS 10/17/2020 04/18/2020, 10/27/2019, 01/12/2019, Additional history exists CKD GFR USE SMARTSET 44654 12/19/202006/21, 04/18/2020, 10/27/2019, Additional history exists COLONOSCOPY-EVERY 5 YRS AGES 18-100 03/20/2021 03/20/2016, 04/30/2010, 02/05/2002 CKD PHOS USE SMARTSET 30606 04/18/2021 12/05/2019, 04/27/2019, 03/20/2018 Yearly B-12 04/18/2021 [...] Documents on File Type Date Recorded Patient Comfort Advisor Expl anation Advanced Directive 11/15/2008 12:00 AM [...] the patient have Health Care Power of Wrecking Car Driver? Yes, not currently available Full Code [...]
--- OUTSIDE RECORDS SUMMARY | 2023-02-21 02:47 | External Medical Summary ---
Author Name Unknown Address [facility] [address] [place] [id number] Phone Organization K01:[place] [address] [address] [place] [id number] Laboratory Report Ordering Provider Test Date Status CROW MERRILL 04/18/2020 08:29:00 Final Observation Date Value Abnormality Reference (Units ) Status HbA1C 04/18/2020 14:30 9.7 Above high normal 4.0-5 .6 (%) Final Performing Location [facility] [address] [facility] [address]
--- OUTSIDE RECORDS SUMMARY | 2023-02-21 02:47 | External Medical Summary | Summary of Care ---
Author Name Unknown Organization [place] [address] Care Team Providers Care Payroll Tax Specialist Name Role Phone Monty Maria MD Primary Care Provide r Reason for Visit * Reason Comments eRx-Medication Refill Encounter Details Date Type Department Care Team Description 04/12/2020 Refill Family Practice [facility] [address] [facility] [place] [address] Monty Maria MD [address] [place] [address] [phone] Allergies No Known Active Allergiesdocumented as of this encounter (statuses as of 04/13/2020) Medications Medication Sig Dispensed Refills Start Date End Date Status ONE TOUCH ULTRA DEVIIndications:DM type 2, not at goal ([facility]) check daily 1 0 12/11/2005 Active ONE TOUCH ULTRA CONTROL SOLNIndications:DM type 2, not at goal (H[facility]) check daily 1 12/11/2005 Active ONE TOUCH ULTRA TEST STRPIndications:DM type 2, not at goal ([facility]) test daily 1 box 11 12/11/2005 Active ONE TOUCH ULTRASOFT LANCETS MISCIndications:DM type 2, not at goal ([facility]) test daily 1 box 11 [...] 1 11/17/2018 Active rosuvastatin (CRESTOR) 20 MG TabletIndications: Dyslipidemia, goal LDL below 70,Dyslipidemia, goal LDL below 160,Mixed dyslipidemia TAKE 1 TABLET DAILY AT 5 P.M. IN THE AFTERNOON 90 Tab 4 03/04/2019 Active Losartan Potassium-HCTZ 100-12.5 MG per tabletIndications: HTN, goal below 140/90 Take 1 Tab by mouth daily. 90 Tab 3 04/14/2019 Active Additional Information Patient not taking. Reported on 10/27/2019 Ranolazine ER 1000 MG [id number]:Ch est pain,Unstable angina (HCC) TAKE 1 TABLET TWICE A DAY 180 Tab 4 06/11/2019 Active JANUVIA 50 MG Tablet TAKE 1 TABLET DAILY 90 Tab 3 12/15/2019 Active clopidogrel (PLAVIX) 75 MG TabletIndications: Aortocoronary [...] WITH BREAKFAST 90 Tab 1 04/13/2020 Active metFORMIN (GLUCOPHAGE) 500 MG Tablet Take 1 Tab by mouth daily with breakfast. 30 Tab 5 10/28/2019 0 Discontinued documented as of this encounter (statuses as of 04/13/2020) Active Problems Problem Noted Date Hypertensive kidney [...] as of this encounter (statuses as of 04/13/2020) Resolved Problems Problem Noted Date Resolved Date [...] root 4.4 cm 4.29.2009 echo at [facility]. HTN, goal below 130/80 06/14/2009 [...] Markers for Patients with Cardiovascular Disease Project #[id number] PI: Francoise Tomlin MD Please call [phone] with study related questions INTERFACED RESULT 11/17/2008 10/17/2011 GENOMICS CARDIO RESEARCH OTHER*[id number] 200806/25/2016 Overview: Renamed Per Clinical Trials Billing Project. Study Titile: Genomic Markers for Patients with Cardiovascular Disease Project #[id number] PI: Francoise Tomlin MD Please call [phone] with study related questions CLASS I-II ANGINA [...] as of this encounter (statuses as of 04/13/2020) Immunizations Name Administration Dates Next Due Pneumococcal Conjugate Vacc, 13 Valent (Prevnar) 01/18/2016 Pneumococcal Polysaccharide PPV23 (Pneumovax) 11/20/2004 Seasonal Influenza, Quadriva lent, No Preserve, 6 [...] Recorded Male 10/27/2019 8:32 AM E DT documented as of this encounter Miscellaneous Notes * Telephone Encounter - Ta Amador RPh - 04/13/2020 5:38 AM EST Signed Prescriptions: Disp Refills metFORMIN HCl 500 MG Oral Tablet (GLUCOPHA*90 Tab 1 Sig: TAKE 1TABLET BY MOUTH EVERY DAY WITH BREAKFASTAuthorizing Provider: MONTY MARIA User: TA AMADOR documented in this encounter Plan of Treatment Upcoming Encounters Date Type Specialty Care Team Description 04/18/2020 Laboratory Laboratory [facility] [address] [place] [address] [phone] 04/27/2020 Office Visit Family Medicine Monty Maria MD [address] [place] [address] [phone] 06/21/2020 Office Visit Cardiology Azael Lozano MD [address] [place] [address] [phone] Health Maintenance Due Date Last Done Comments Dexa Scan 1986 Zoster Vaccines (1 of 2) 1985 Influenza Vaccine (FLU shot) (#1) 2019 03/02/2019, 03/01/2018, 03/02/2017, Additional history exists CKD GFR USE SMARTSET 57566 04/27/202010/26, 09/20/2019, 04/27/2019, Additional history exists CKD PHOS USE SMARTSET 72899 04/27/2020 04/27/2019, 1 05/20/2017 DIABETES-FOOT EXAM 04/27/2020 04/27/2019, 1 05/20/2017, 10/24/2016, Additional history exists DIABETES-HGBA1C EVERY 6 MONTHS 04/27/2020 10/27/2019, 01/12/2019, 03/20/2018, Additional history exists Yearly B-12 04/27/2020 04/27/2019, 05/01/2017 CKD HGB USE SMARTSET 73580 09/19/202009/19, 04/27/2019, 03/20/2018, Additional history exists COLONOSCOPY-EVERY 5 YRS AGES 18-100 03/20/2021 03/20/2016, 04/30/2010, 02/05/2002 DTaP,Tdap,and Td Vaccines (2 - Td) 07/10/2022 07/10/2012 Pneumococcal Vaccine: 65+ Years Completed 01/18/2016, 11/20/2004 MENINGOCOCCAL (MENACTRA/MENVEO) Aged Out No longer eligible based on patient's age to complete this topic documented as of this encounter Implants Not on filedocumented as of this encounter Advance Directives Documents on File Type Date Recorded Patient Manager Valuation Expl anation Advanced Directive 11/15/2008 12:00 AM [...] patient have Health Care Power of Assistant City Attorney? Yes, not currently available Full Code 09/15/2009 [...]
--- OUTSIDE RECORDS SUMMARY | 2023-02-21 02:47 | External Medical Summary | Summary of Care ---
Author Name [place] [address] Care Team Providers Care Evp Strategy Name Role Phone Monty Dumont MD Primary Care Provide r Reason for Visit * Reason Onset Date Comments Referral 04/19/2020 Encounter Details Date Type Department Care Team Description 04/19/2020 Telephone Pharmacy, [facility] [address] [place] [address] [facility] [address] [place] [address] [phone] Referral Allergies No Known Active Allergiesdocumented as of this encounter (statuses as of 04/19/2020) Medications Medication Sig Dispensed Refills Start Date End Date Status ONE TOUCH ULTRA DEVIIndications:DM type 2, not at goal ([facility]) check daily 1 0 12/11/2005 Active ONE TOUCH ULTRA CONTROL SOLNIndications:DM type 2, not at goal ([facility]) check daily 1 11 12/11/2005 Active ONE TOUCH ULTRA TEST STRPIndications:DM type 2, not at goal ([facility]) test daily 1 box 11 12/11/2005 Active ONE TOUCH ULTRASOFT LANCETS MISCIndications:DM type 2, not at goal ([facility]) test daily 1 box 11 12/11/2005 Active [...] Reported on 10/27/2019 Ranolazine ER 1000 MG [id number]:Chest pain,Unstable angina (HCC) TAKE 1 TABLET TWICE A DAY 180 Tab 4 06/11/2019 Active JANUVIA 50 MG Tablet TAKE 1 TABLET DAILY 90 Tab 3 12/15/2019 Active clopidogrel (PLAVIX) 75 MG TabletIndications:Aor tocoronary [...] WITH BREAKFAST 90 Tab 1 04/13/2020 Active documented as of this encounter (statuses as of 04/19/2020) Active Problems Problem Noted Date Hypertensive kidney [...] as of this encounter (statuses as of 04/19/2020) Resolved Problems Problem Noted Date Resolved Date [...] 4.29.2009 echo at [facility]. HTN, goal below 130/80 [...] Markers for Patients with Cardiovascular Disease Project #[id number] PI: Francoise Tomlin MD Please call [phone] with study related questions INTERFACED RESULT 11/17/2008 10/17/2011 GENOMICS CARDIO RESEARCH OTHER*[id number] 200806/25/2016 Overview: Renamed Per Clinical Trials Billing Project. Study Titile: Genomic Markers for Patients with Cardiovascular Disease Project #[id number] PI: Francoise Tomlin MD Please call [phone] with study related questions CLASS I-II ANGINA [...] as of this encounter (statuses as of 04/19/2020) Immunizations Name Administration Dates Next Due Pneumococcal [...] Comments:quit 30 yrs ago, wh ile in [employer] for 4 years Alcohol Use Drinks/Week oz/Week [...] encounter Miscellaneous Notes * Telephone Encounter - Yana Johnson OSA - 04/19/2020 4:19 PM EST Patient Phone Numbers Left message on patients answering machine to schedule [facility] appointment for diabetes managment. HQ pluser message sent --no Letter sent---no. Clinic will follow up again in 2 week(s). [Attempt # 1] NERIS Liu 04/19/2020, 4:19 PM * Telephone Encounter - Crystal Zavala [facility] - 04/19/2020 8:03 AM EST Referral reviewed and is appropriate. Please schedule. Initial appt length: 40 min Appointment type indicated: inperson or televideo Preferred Clinic for Appointment: [facility] Patient referred to [facility] clinic for diabetes on behalf of Dr. Dumont. Referral reviewed and relevant pre-visit information listed below: DM: Relevant history obtained from referral: Target Hgb A1c: <7.0% Hemoglobin A1c Results: HEMOGLOBIN, A1C(%) Frida Dt/Tm Resulted Value Status 04/18/20 8:29A 04/18/20 9.7* FINAL 10/27/19 9:03A 10/27/19 6.4* FINAL 01/12/19 2:01P 01/12/19 6.5* FINAL Current DM Medications: Metformin 500 mg daily Glipizide ER 5 mg BID Januvia 50 mg daily Current LEONID/ARB therapy: YES losartan 100 mg daily Serum creatinine: 1.9 mg/dL (H) 04/18/20 0829 Estimated creatinine clearance: 28.2 mL/min (A) Current statin therapy: YES crestor 20 mg daily Follow-up as scheduled. Crystal Zavala [facility] 04/19/2020, 8:03 AM * Telephone Encounter - Yana Johnson OSA - 04/19/2020 6:50 AM EST Indication for Pharmacist Medication Therapy Management: Diagnosis: diabetes Relevant History: rising a1c to 9.7, ckd as well Target LDL: low to mod dose statin Target HgB A1C: Hgb A1C 7 - 8 Target blood pressure: 140/90 Other Target: Minimum frequency patient should be seen in person for medication management: as appropriate per clinical condition and patient status By my signature, I understand that my patient Dirk Garcia will have his medication therapy managed by the [facility] ([facility]) per established policies, procedures, and protocols. I also certify that this referral may serve as an initiation of service for the management of drug therapy in the above noted patient. [facility] providers will be responsible for scheduling patient visits, obtaining appropriate laboratory studies, and adjusting medication management therapy per patient's need, in addition to those roles spelled out in the clinic policy, procedures, and drug management protocols. I understand that the service provided by the [facility] is voluntary and have informed patient that they can refuse the service at their discretion. I am aware that the [facility] will provide me with a copy of the patient encounter via my [employer]. I authorize the [facility] to carry out these activities on my behalf. I consider this program to be a necessary part of the patient's medical care. Monty Dumont MD documented in this encounter Plan of Treatment Upcoming Encounters Date Type Specialty Care Team Description 04/27/2020 Office Visit Family Medicine Monty Dumont MD [address] [place] [address] [place] [address] [phone] 05/03/2020 Pharmacy Pharmacy [facility] [address] [place] [address] 06/21/2020 Office Visit Cardiology Azael Lozano MD [address] [place] [address] [phone] Health Maintenance Due Date Last Done Comments Dexa Scan 1986 Zoster Vaccines (1 of 2) 1986 Influenza Vaccine (FLU shot) (#1) 2019 03/02/2019, 03/01/2018, 03/02/2017, Additional history exists DIABETES-FOOT EXAM 04/27/2020 04/27/2019, 1 05/20/2017, 10/24/2016, Additional history exists CKD HGB USE SMARTSET 35454 09/19/202009/19, 04/27/2019, 03/20/2018, Additional history exists CKD GFR USE SMARTSET 48905 10/17/202004/18, 10/27/2019, 09/20/2019, Additional history exists DIABETES-HGBA1C EVERY 6 MONTHS 10/17/2020 04/18/2020, 10/27/2019, 01/12/2019, Additional history exists COLONOSCOPY-EVERY 5 YRS AGES 18-100 03/20/2021 03/20/2016, 04/30/2010, 02/05/2002 CKD PHOS USE SMARTSET 81329 04/18/2021 12/05/2019, 04/27/2019, 03/20/2018 Yearly B-12 04/18/2021 04/18/2020, 04/18, 05/01/2017 DTaP,Tdap,and Td Vaccines (2 - Td) 07/10/2022 07/10/2012 Pneumococcal Vaccine: 65+ Years Completed 01/18/2016, 11/20/2004 MENINGOCOCCAL (MENACTRA/MENVEO) Aged Out No longer eligible based on patient's age to complete this topic documented as of this encounter Implants Not on filedocumented as of this encounter Advance Directives Documents on File Type Date Recorded Patient Field Marketing Lead Expl anation Advanced Directive 11/15/2008 12:00 AM [...] the patient have Health Care Power of Appointment Coordinator? Yes, not currently available Full Code 09/15/2009 [...]
--- OUTSIDE RECORDS SUMMARY | 2023-02-21 02:47 | External Medical Summary | Summary of Care ---
Author Name Unknown Organization [place] [address] Care Team Providers Care Missile Facilities Repairer Name Role Phone Monty Dumont MD Primary Care Provide r Reason for Visit * Reason Comments Appointment Encounter Details Date Type Department Care Team Description 05/03/2020 Pharmacy Pharmacy, [facility] [address] [place] [address] [facility] [address] [place] [address] 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)* Allergies No Known Active Allergiesdocumented as of this encounter (statuses as of 05/02/2020) Medications Medication Sig Dispensed Refills Start Date [...] MISCIndications:DM type 2, not at goal ([facility]) test daily 1 box 11 12/11/2005 [...] Reported on 10/27/2019 Ranolazine ER 1000 MG [id number]:Chest pain,Unstable angina (HCC) TAKE 1 TABLET TWICE [...] as of this encounter (statuses as of 05/02/2020) Active Problems Problem Noted Date Hypertensive kidney [...] as of this encounter (statuses as of 05/02/2020) Resolved Problems Problem Noted Date Resolved Date [...] Aortic root 4.4 cm 4.29.2009 echo at [facility]. HTN, goal below 130/80 06/14/2009 2 Overview: Per HTN Taxonomy. Type 2 diabetes mellitus wit h hemoglobin A1c goal of less than 7.0% 03/02/2009 03/27/2011 Overview: Modified per Diabetes protocol #14. ICD-10 update of inactive term EXAMINATION OF PARTICIPANT IN CLINICAL TRIAL-gen omics 11/17/2008 09/01/2009 Overview: Renamed Per Clinical Trials Billing Project. Study Titile: Genomic Markers for Patients with Cardiovascular Disease Project #[id number] PI: Francoise Tomlin MD Please call [phone] with study related questions INTERFACED RESULT 11/17/2008 10/17/2011 GENOMICS CARDIO RESEARCH OTHER*[id number] 200806/25/2016 Overview: Renamed Per Clinical Trials Billing Project. Study Titile: Genomic Markers for Patients with Cardiovascular Disease Project #[id number] PI: Francoise Tomlin MD Please call [phone] with study related questions CLASS I-II ANGINA [...] as of this encounter (statuses as of 05/02/2020) Immunizations Name Administration Dates Next Due Pneumococcal [...] Comments:quit 30 yrs ago, wh ile in [employer] for 4 years Alcohol Use Drinks/Week oz/Week [...] Progress Notes * Yana Johnson OSA - 05/02/2020 2:36 PM EST Patient Phone Numbers Spoke with patient to schedule [facility] appointment for diabetes managment. Appointment scheduled as noted below. Next Office Visit: 05/29/2020 Scheduled Provider(s): [facility] NERIS Dao 05/02/2020, 2:36 PM documented in this encounter Plan of Treatment Upcoming Encounters Date Type Specialty Care Team Description 05/29/2020 Office Visit Pharmacy [facility] [address] [place] [address] 06/21/2020 Office Visit Cardiology Azael Lozano MD [address] [place] [address] [phone] 10/26/2020 Office Visit Family Medicine Monty Dumont MD [address] [place] [address] [phone] Health Maintenance Due Date Last Done Comments Dexa Scan 1986 Zoster Vaccines (1 of 2) 1986 *DEPRESSION SCREENING,ANNUAL FOR PTS 12 AND OVER 04/29/2020 CKD HGB USE SMARTSET 27248 09/19/202009/19, 04/27/2019, 03/20/2018, Additional history exists CKD GFR USE SMARTSET 37216 10/17/202004/18, 10/27/2019, 09/20/2019, Additional history exists DIABETES-HGBA1C EVERY 6 MONTHS 10/17/2020 04/18/2020, 10/27/2019, 01/12/2019, Additional history exists COLONOSCOPY-EVERY 5 YRS AGES 18-100 03/20/2021 03/20/2016, 04/30/2010, 02/05/2002 CKD PHOS USE SMARTSET 99621 04/18/2021 12/0 05/2019, 04/27/2019, 03/20/2018 Yearly B-12 [...] Documents on File Type Date Recorded Patient Tapering Machine Operator Expl anation Advanced Directive 11/15/2008 [...] the patient have Health Care Power of Smog Technician? Yes, not currently available Full Code [...]
--- OUTSIDE RECORDS SUMMARY | 2023-02-21 02:47 | External Medical Summary ---
Author Name Unknown Address [address] [facility] [place] [address] Phone Organization [id number]:[facility] Stephanie [facility] [address] [facility] [place] [address] Laboratory Report Ordering Provider Test Date Status CROW MERRILL 04/18/2020 08:29:00 Final Observation Date Value Abnormality Reference (Units ) Status BUN 04/18/2020 09:42 35 Above high normal 6-20 (mg/dL) Final Creatinine 04/18/2020 09:42 1.9 Above high normal 0.6- 1.2 (mg/dL) Final E Glom Filt Rate 04/18/2020 09:42 31.1 Below low normal >60 Final Performing Location [facility] Stephanie Najera [address] [facility] [place] [address]
--- OUTSIDE RECORDS SUMMARY | 2023-02-21 02:47 | External Medical Summary ---
Author Name Unknown Address [facility] [address] [place] [id number] Phone Organization K01:[place] [id number] Laboratory Report Ordering Provider Test Date Status CROW MERRILL 04/18/2020 08:29:00 Final Observation Date Value Abnormality Reference (Units ) Status Phosphate 04/18/2020 14:25 3.8 2.5-4.8 (mg/d L) Final Performing Location [address] [address]
--- OUTSIDE RECORDS SUMMARY | 2023-02-21 02:47 | External Medical Summary | Summary of Care ---
Author Name Unknown Organization [place] [address] Care Team Providers Care Wet Mixer Name Role Phone Monty Dumont MD Primary Care Provide r Reason for Visit * Reason Comments Follow Up pt denies any concer ns at this time Encounter Details Date Type Department Care Team Description 04/27/2020 Office Visit Family Practice [facility] [address] [facility] [place] [address] Monty Dumont MD [address] [place] [address] [phone] DM type 2 nursing care encounter (HCC)*; Chronic coronary artery disease; 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); Stable angina (HCC); Dyslipidemia, goal LDL below 70; Hypertensive kidney disease with stage 3b chronic kidney disease; HTN, goal below 140/90 Allergies No Known Active Allergiesdocumented as of this encounter (statuses as of 04/27/2020) Medications Medication Sig Dispensed Refills Start Date End Date Status ONE TOUCH ULTRA DEVIIndications:DM type 2, not at goal ([facility]) check daily 1 0 12/11/2005 Active ONE TOUCH ULTRA CONTROL SOLNIndications:DM type 2, not at goal ([facility]) check daily 1 11 12/11/2005 Active ONE TOUCH ULTRA TEST STRPIndications:DM type 2, not at goal ([facility]) test daily 1 box 11 12/11/2005 Active ONE TOUCH ULTRASOFT LANCETS MISCIndications:DM type 2, not at goal ([facility]) test daily 1 box 11 12/11/2005 Active [...] Reported on 10/27/2019 Ranolazine ER 1000 MG [id number]:Chest pain,Unstable angina (HCC) TAKE 1 TABLET TWICE [...] as of this encounter (statuses as of 04/27/2020) Active Problems Problem Noted Date Hypertensive kidney [...] as of this encounter (statuses as of 04/27/2020) Resolved Problems Problem Noted Date Resolved Date [...] Aortic root 4.4 cm 4.29.2009 echo at [facility]. HTN, goal below [...] Markers for Patients with Cardiovascular Disease Project #[id number] PI: Ricardo Yang MD Please call [phone] with study related questions INTERFACED RESULT 11/17/2008 10/17/2011 GENOMICS CARDIO RESEARCH OTHER*[id number] 200806/25/2016 Overview: Renamed Per Clinical Trials Billing Project. Study Titile: Genomic Markers for Patients with Cardiovascular Disease Project #[id number] PI: Ricardo Yang MD Please call [phone] with study related questions CLASS I-II ANGINA [...] as of this encounter (statuses as of 04/27/2020) Immunizations Name Administration Dates Next Due Pneumococcal [...] Comments:quit 30 yrs ago, wh ile in [employer] for 4 years Alcohol Use Drinks/Week oz/Week [...] Sign Reading Time Taken Comments Blood Pressure 120/60 04/27/2020 9:44 AM EST Pulse 64 04/27/2020 9:44 AM EST Temperature 36.4 C (97.5 F) 04/27/2020 9:44 AM ES T Respiratory Rate 16 04/27/2020 9:44 AM EST Oxygen Saturation - - Inhaled Oxygen Concentration - - Weight 72.7 kg (160 lb 6 oz) 04/27/2020 9:44 AM EST Height 180.3 cm (5' 11") 04/27/2020 9:44 AM EST Body Mass Index 22.37 04/27/2020 9:44 AM EST documented in this encounter Patient Instructions * Patient Instructions* Leny Buckner LPN - 04/27/2020 9:52 AM EST Diabetes: Keeping Feet Healthy Inspect your feet [...] calluses yourself. Talk to your doctor or education professor (a doctor who specializes in foot care) [...] the area doesnt appear to be healing. [id number] [employer], [address] [place] [address], [place] [address]. All rights reserved. This information is not intended as a substitute for professional medical care. Always follow your healthcare professional's instructions. documented in this encounter Progress Notes * Monty Dumont MD - 04/27/2020 12:53 PM EST 04/27/2020 Author: Monty Dumont MD Assessment/Plan There are no discontinued medications. Pt is a 84 year old male here for the following problems/concerns: (E11.9) DM type 2 nursing care encounter (HCC) (primary encounter diagnosis) Plan: DIABETES FOOT EXAM F/u mtm (I25.10) Chronic coronary artery disease Plan: f/u cards (E11.22, N18.30) 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) Plan: (I20.8) Stable angina (HCC) Plan: (E78.5) Dyslipidemia, goal LDL below 70 Plan: (I12.9, N18.32) Hypertensive kidney disease with stage 3b chronic kidney disease Plan: (I10) HTN, goal below 140/90 Plan: No med changes Patient and or guardian communicated understanding and agreement of treatment plan including medications and there common side effects if indicated. All questions answered. Follow Up: Return in about 6 months (around 10/26/2020), or if symptoms worsen or fail to improve. CC/HPI: Dirk Hernandez Jose is a 84 year old male Chief Complaint Patient presents with Follow Up pt denies any concerns at this time Brief Clinical History Mr. Garcia is an 84 year old man last seen in Family Medicine today (04-27-20). He has h/o angina, chronic diabetic complication, CKD stage 3, Diabetes mellitus with stage 3 chronic kidney disease(HCC), Hypertensive kidney disease with stage 3b chronic kidney disease, and Stable angina (HCC). Nursing Notes: Leny Buckner LPN 04/27/20 0952 Signed The patient has been properly identified by confirmation of name and date of . Chief Complaint Patient presents with Follow Up pt denies any concerns at this time Here for recheck Diabetes history:The patient has a history of non-insulin dependant diabetes. DM symptoms: The patient denies polyphagia, polydipsia and frequent urination. . Hypertension Follow Up The patient is taking medications as instructed. No medication side effects are described. The patient is not monitoring home blood pressures. The patient denies any acute focal neurologic symptoms. The patient denies intermittent claudication symptoms. No myalgias or dark urine. Problem list: 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 Dyslipidemia, goal LDL below 70 E78.5 S/P angioplasty with stent Z95.820 DM type 2, goal A1C to be determined (HCC) E11.9 HTN, goal below 140/90 I10 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) E11.22, N18.30 History of colon polyps Z86.010 Stable angina (HCC) I20.8 Hypertensive kidney disease with stage 3b chronic kidney disease I12.9, N18.32 Past Medical History: Past Medical History: Diagnosis Date Aortocoronary bypass status 12/06/2008 Benign neoplasm of colon 01/18 Chronic coronary artery disease 11/17/2008 Coronary atherosclerosis of pechanga coronary artery DM type 2, goal A1c below 7 DM type 2, goal A1C to be determined (HCC) Dyslipidemia, goal LDL below 160 Dyslipidemia, goal LDL below 70 05/01/2009 Per Lipid Taxonomy. Enlarged aorta (HCC) 09/15/2009 Aortic root 4.4 cm 4.29.2009 echo at [facility]. HTN, goal below 130/80 06/14/2009 Per HTN Taxonomy. HTN, goal below 140/90 S/P angioplasty with stent drug eluting 09/15/09 Plavix x 12m Past Surgical History: Past Surgical History: Procedure Laterality Date CABG, ARTERIAL, SINGLE 11/25/08 CORONARY ARTERY BYPASS GRAFT USING ARTERY 1 GRAFT performed by MAXIMILIANO CASILLAS at [facility] CABG, ARTERY-VEIN, TWO 11/25/08 CORONARY ARTERY BYPASS GRAFT ARTERIAL AND VENOUS 2 GRAFTS performed by MAXIMILIANO CASILLAS at [facility] CATHETERIZE LEFT HEART THRU SKIN Cardiac Catheterization, Left Heart CATHETERIZE LEFT HEART THRU SKIN 11/17/08 LEFT HEART CATH, PERCUTANEOUS performed by DRAKE MALONE at [facility] CATHETERIZE LEFT HEART THRU SKIN 09/15/09 LEFT HEART CATH, PERCUTANEOUS performed by RICARDO YANG at [facility] COLONOSCOPY, W/BIOPSY jan 2002 adenomatous and hyperplastic polyps, next in jan 2005 CORONARY ANGIOGRAPHY W/LEFT HEART CATH 11/25/2011 CORONARY ANGIOGRAPHY W/LEFT HEART CATH performed by Jermaine Leary DO at [facility] DESTRUCTION PREMALIGNANT LESION 1ST about 2001 facial lesion. ENDO,VIDEO ASSIST HARVEST WALE 11/25/08 ENDOSCOPY VIDEO ASSISTED HARVEST VEIN performed by MAXIMILIANO CASILLAS at [facility] REMOVAL OF APPENDIX age 21 Medication List: Current Outpatient Medications Medication Sig Dispense Refill metFORMIN HCl 500 MG Oral Tablet (GLUCOPHAGE) [...] Tab by mouth daily. 100 Tab 1 JANUVIA 50 MG Tablet TAKE 1 TABLET DAILY 90 Tab 3 Ranolazine ER 1000 MG TB12 TAKE 1 TABLET TWICE A DAY 180 Tab 4 rosuvastatin (CRESTOR) 20 MG Tablet TAKE 1 TABLET DAILY AT 5 P.M. IN THE AFTERNOON 90 Tab 4 nitroglycerin (NITROSTAT) 0.4 MG SUBL [...] TOUCH ULTRA DICK check daily 1 0 Losartan Potassium-HCTZ 100-12.5 MG per tablet Take 1 Tab by mouth daily. (Patient not taking: Reported on 10/27/2019) 90 Tab 3 ONE TOUCH ULTRA TEST STRP test daily 1 box 11 ONE TOUCH ULTRASOFT LANCETS MISC test daily 1 box 11 Allergies: Patient has no known allergies. Problem list, Past Medical History, Family history and social history reviewed and updated in [facility] EHR ROS: No nausea, vomiting or diarrhea. No chest pain or shortness of breath, No fatigue. No fevers, chillor night sweats. All other ROS examined in detail and are negative except as documented in HPI. Vitals: BP 120/60 (BP Site: Left Arm, BP Position: Sitting, BP Cuff Size: Regular) | Pulse 64 | Temp 36.4 C (97.5 F) (Tympanic) | Resp 16 | Ht 1.803 m (5' 11") | Wt 72.7 kg (160 lb 6 oz) | BMI 22.37 kg/m | BSA 1.91 m Body mass index is 22.37 kg/m. Exam: General: alert, healthy and no distress Head: Normocephalic, No masses, lesions, tenderness or abnormalities Heart: regular rate & rhythm, no murmurs and no gallops Lungs: chest symmetric with normal AP diameter, no chest deformities noted, no chest wall tenderness, lungs clear to auscultation Abdomen: abdomen soft, non-tender, no masses, no hepatosplenomegaly, no rebound or guarding Extremities: no edema, no clubbing, no cyanosis Assessment and plan located at the top of the page * Leny Buckner LPN - 04/27/2020 9:52 AM EST Socks and Shoes Removed for Annual Diabetic Foot Screening RIGHT FOOT: No Reddened, Cracking, Or Open Areas Noted. RIGHT Dorsalis Pedis Pulse: Palpable RIGHT Posterior Tibial Pulse: Palpable RIGHT Monofilament:Patient reports feeling monofilament pressure on plantar surface of foot LEFT FOOT: No Reddened, Cracking or Open Areas Noted. LEFT Dorsalis Pedis Pulse: Palpable LEFT Posterior Tibial Pulse: Palpable LEFT Monofilament:Patient reports feeling monofilament pressure on plantar surface of foot DM Foot Exam completed today. Provider aware. Leny Buckner LPN documented in this encounter Nursing Notes * Leny Buckner LPN - 04/27/2020 9:44 AM EST The patient has been properly identified by confirmation of name and date of . Chief Complaint Patient presents with Follow Up pt denies any concerns at this time documented in this encounter Plan of Treatment Upcoming Encounters Date Type Specialty Care Team Description 05/03/2020 Pharmacy Pharmacy [facility] [address] [place] [address] 06/21/2020 Office Visit Cardiology Azael Lozano MD [address] [address] [phone] 10/26/2020 Office Visit Family Medicine Monty Dumont MD [address] [place] [place] [address] [phone] Health Maintenance Due Date Last Done Comments Dexa Scan 1986 Zoster Vaccines (1 of 2) 1986 CKD HGB USE SMARTSET 97507 09/19/202009/19, 04/27/2019, 03/20/2018, Additional history exists CKD GFR USE SMARTSET 28981 10/17/202004/18, 10/27/2019, 09/20/2019, Additional history exists DIABETES-HGBA1C EVERY 6 MONTHS 10/17/2020 04/18/2020, 10/27/2019, 01/12/2019, Additional history exists COLONOSCOPY-EVERY 5 YRS AGES 18-100 03/20/2021 03/20/2016, 04/30/2010, 02/05/2002 CKD PHOS USE SMARTSET 57159 04/18/2021 12/05/2019, 04/27/2019, 03/20/2018 Yearly B-12 04/18/2021 [...] this encounter Visit Diagnoses Diagnosis DM type 2 nursing care encounter (HCC)- Primary Type II or unspecified type diabetes mellitus without mention of complication, not stated as uncontrolled Chronic coronary artery disease Coronary atherosclerosis of unspecified type of vessel, pechanga or graft 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) Type II or unspecified type diabetes mellitus with renal manifestations, not stated as uncontrolled Stable angina (HCC) Other and unspecified angina pectoris Dyslipidemia, goal LDL below 70 Other and unspecified hyperlipidemia Hypertensive kidney disease with stage 3b chronic kidney disease HTN, goal below 140/90 Unspecified essential hypertension documented in this encounter Advance Directives Documents on File Type Date Recorded Patient Inspector Tool Expl anation Advanced Directive 11/15/2008 12:00 AM [...] patient have Health Care Power of Job Recruiter? Yes, not currently available Full Code 09/15/2009 [...]
--- OUTSIDE RECORDS SUMMARY | 2023-02-21 02:47 | External Medical Summary | Summary of Care ---
Author Name Unknown Organization [place] [address] Care Team Providers Care Concrete Smoother Name Role Phone Monty Dumont MD Primary Care Provide r Reason for Visit * Reason Comments Dosage Adjustment In Person (Anticoag Cl inic) Diabetes Education Encounter Details Date Type Department Care Team Description 05/29/2020 Office Visit Pharmacy, [facility] [address] [place] [address] [facility] [address] [place] [address] DM type 2, goal A1C to be determined ([facility])* Allergies No Known Active Allergiesdocumented as of [...] Reported on 10/27/2019 Ranolazine ER 1000 MG [id number]:Ch est pain,Unstable angina (HCC) TAKE 1 TABLET [...] a week. 2 mL 5 05/29/2020 Active JANUVIA 50 MG Tablet TAKE 1 TABLET DAILY 90 Tab 3 12/15/2019 05/29/2020 Discontinue d(Medicatio n/Dose Changed) documented as of [...] Aortic root 4.4 cm 4.29.2009 echo at [facility]. HTN, goal below 130/80 [...] Markers for Patients with Cardiovascular Disease Project #[id number] PI: Francoise Tomlin MD Please call [phone] with study related questions INTERFACED RESULT 11/17/2008 10/17/2011 GENOMICS CARDIO RESEARCH OTHER*[id number] 200806/25/2016 Overview: Renamed Per Clinical Trials Billing Project. Study Titile: Genomic Markers for Patients with Cardiovascular Disease Project #[id number] PI: Francoise Tomlin MD Please call [phone] with study related questions CLASS I-II ANGINA [...] Comments:quit 30 yrs ago, wh ile in [employer] for 4 years Alcohol Use Drinks/Week oz/Week [...] this encounter Progress Notes * Katarzyna Sawyer, [facility] - 05/29/2020 8:34 AM EST Medication Therapy Disease Management [facility] - Diabetes Management Progress Note Dirk Garcia, identified by name and date of , is a 84 year old male being seen for diabetes management/education. Patient presents for initial diabetic visit. Past Medical History: Diagnosis Date Aortocoronary bypass status 12/06/2008 Benign neoplasm of colon 01/18 Chronic coronary artery disease 11/17/2008 Coronary atherosclerosis of huslia coronary artery DM type 2, goal A1c below 7 DM type 2, goal A1C to be determined (HCC) Dyslipidemia, goal LDL below 160 Dyslipidemia, goal LDL below 70 05/01/2009 Per Lipid Taxonomy. Enlarged aorta (HCC) 09/15/2009 Aortic root 4.4 cm 4.29.2009 echo at [facility]. HTN, goal below 130/80 06/14/2009 Per HTN Taxonomy. HTN, goal below 140/90 S/P angioplasty with stent drug eluting 09/15/09 Plavix x 12m Diagnosis: Type 2 Age of diabetes diagnosis: 61 years old Family history of diabetes: none Microvascular complications: nephropathy Macrovascular complications: hypertension dyslipidemia coronary artery disease History of Treatment Barriers: Lifestyle: None Therapy considerations: Renal Functions, cardiac history DIABETES: Current diabetic medications: Metformin 500 mg once daily Glipizide XL 5 mg BID Januvia 50 mg daily Medication Injection Site: N/A Lifestyle: Diet: Comprehensive Diet Review Meal #1: breakfast sandwich or cereal with milk or oatmeal; coffee with cream; glass of plum or prune juice (6 oz) Meal #2: soup Meal #3: protein, carb, veggie + salad at night Snacks: pretzels or chips Beverages: water; diet soda Activity: tries to walk a couple times a day 1 block or 2 Alcohol: occasional use- light beer Tobacco Use: Former has not smoked since 1959 when he was in the [employer] Glucose Review/SMBG: patient does not currently test his blood sugar Hypoglycemia: Does your blood sugar go below 70 mg/dL? Patient does not test Hyperglycemia symptoms present: none No POC HEMOGLOBIN A1C components found HEMOGLOBIN, A1C(%) Frida Dt/Tm Resulted Value Status 04/18/20 8:29A 04/18/20 9.7* FINAL (goal < 8%) 10/27/19 9:03A 10/27/19 6.4* FINAL 01/12/19 2:01P 01/12/19 6.5* FINAL E GLOM FILT RATE( ) Frida Dt/Tm Resulted Value Status 04/18/20 8:29A 04/18/20 31.1* FINAL 10/27/19 9:03A 10/27/19 36.5* FINAL 09/20/19 4:21P 09/20/19 40.2* FINAL CREATININE(mg/dL) Frida Dt/Tm Resulted Value Status 04/18/20 8:29A 04/18/20 1.9* FINAL 10/27/19 9:03A 10/27/19 1.7* FINAL 09/20/19 4:21P 09/20/19 1.6* FINAL HYPERTENSION: Patient on ACEi/ARB: yes BP Readings from Last 3 Encounters: 04/27/20 120/60 10/27/19 128/60 09/20/19 124/60 Blood pressure at goal: yes HYPERLIPIDEMIA: Patient is taking moderate or high intensity statin: yes HEALTH MAINTENANCE REVIEW: Health Maintenance Due Topic Date Due Dexa Scan 1986 Zoster Vaccines (1 of 2) 1986 *DEPRESSION SCREENING,ANNUAL FOR PTS 12 AND OVER 04/29/2020 ASSESSMENT & PLAN: ICD-10-CM 1. DM type 2, goal A1C to be determined ([facility]) E11.9 BG Readings Blood sugars not available. Patient does not currently test. Medications Reviewed current regimen, patient is adherent to regimen. Will optimize therapy by switching Januvia to Trulicity for cardiac benefit/protection given patient's cardiac history. Educated patient on Trulicity. Instructed patient to start Trulicity 0.75 mg SQ weekly. Educated the patient that starting at a lower dose is to help reduce side effects such as nausea and abdominal discomfort. Educated patient that if they experience these side effects, they tend to go away after a few weeks. Educated the patient that Trulicity can cause weight loss. Educated that Trulicity can rarely cause pancreatitis and to report any symptoms of persistent and severe abdominal pain that may radiate to the back with vomiting to their doctor. Educated patient on cardiovascular benefits with Trulicity. Taught patient how to use Trulicity pen. Reviewed with patient individual steps to do to prepare Trulicity prior to use: washing hands; remove lazcano end; place end against stomach, outer thigh or back of arm; dial pen from locked (red) to unlocked (green); press green button; wait for pen to inject and needle to snap back, then remove and throw away. Reviewed proper injection technique. Patient verbalized understanding. Also reviewed directions for a missed dose of the medication. Confirmed with patient no personal or family history of pancreatitis or thyroid cancer. Diet, Exercise, Lifestyle Patient inquired if rather than make medication changes, if he could focus on lifestyle changes. Explained to patient that diabetes is a progressive disease and that lifestyle changes might not produce enough A1c control. Explained to patient what his a1c was most recently, what that means for his average BG, and what his goal a1c is. Discussed with patient the platemethod in detail and discussed the importance of eating a balanced diet with CHO and protein. Discussed how CHO, proteins and fats effect her blood sugar. Taught patient how to read the nutrition label and to pay specific attention to "Carbohydrates" and "Serving Size". Patient is agreeable to SMBG 0 time(s) daily. When patient asked about just making lifestyle changes, I explained to him that I would ask him to test his blood sugars once daily at least. Patient opted rather for the once weekly injection. Patient aware to contact clinic if any hypoglycemia before next visit. MEDICATION CHANGES: yes, see below; preferred pharmacy: [facility] Medications: Metformin 500 mg once daily Glipizide XL 5 mg BID Stop: Januvia 50 mg daily Start: Trulicity 0.75 mg once weekly. HEALTH MAINTENANCE INTERVENTIONS: Labs: Up to Date will get updated a1c and BMP after next appointment Immunizations: Up to Date Foot Exam: Up to Date Eye Exam: Up to Date Annual Wellness Visit: N/A FOLLOW UP: Return to clinic in 6 weeks Next Office Visit: 07/10/2020 Scheduled Provider(s): [facility] Nhung Sawyer [facility] Clinical Pharmacist - Reprographics Technician Medication Therapy Management Clinic 05/29/2020, 8:35 AM documented in this encounter Plan of Treatment Upcoming Encounters Date Type Specialty Care Team Description 06/21/2020 Office Visit Cardiology Azael Lozano MD [address] [address] [phone] 07/10/2020 Office Visit Pharmacy [facility] Nhung Brown [address] [place] [address] 10/26/2020 Office Visit Family Medicine Monty Dumont MD [address] [address] [phone] Health Maintenance Due Date Last Done Comments Dexa Scan 1986 Zoster Vaccines (1 of 2) 1986 *DEPRESSION SCREENING,ANNUAL FOR PTS 12 AND OVER 04/29/2020 CKD HGB USE SMARTSET 62653 09/19/202009/19, 04/27/2019, 03/20/2018, Additional history exists CKD GFR USE SMARTSET 28048 10/17/202004/18, 10/27/2019, 09/20/2019, Additional history exists DIABETES-HGBA1C EVERY 6 MONTHS 10/17/2020 04/18/2020, 10/27/2019, 01/12/2019, Additional history exists COLONOSCOPY-EVERY 5 YRS AGES 18-100 03/20/2021 03/20/2016, 04/30/2010, 02/05/2002 CKD PHOS USE SMARTSET 12519 04/18/2021 1205/2019, 04/27/2019, 03/20/2018 Yearly B-12 04/18/2021 [...] Documents on File Type Date Recorded Patient Business Support Professional Expl anation Advanced Directive 11/15/2008 12:00 AM [...] the patient have Health Care Power of [employer] Letter Carrier? Yes, not currently available Full Code 09/15/2009 [...]
--- OUTSIDE RECORDS SUMMARY | 2023-02-21 02:47 | External Medical Summary | Summary of Care ---
Author Name Unknown Organization [place] [address] Care Team Providers Care Mold Yard Supervisor Name Role Phone Monty Dumont MD Primary Care Provide r Reason for Visit * Reason Comments Dosage Adjustment In Person (Anticoag Cl inic) Diabetes Education Encounter Details Date Type Department Care Team Description 05/29/2020 Office Visit Pharmacy, [facility] [address] [place] [address] [facility] [address] [place] [address] DM type 2, goal A1C to be determined ([facility])* Allergies No Known Active Allergiesdocumented as [...] Reported on 10/27/2019 Ranolazine ER 1000 MG [id number]:Ch est pain,Unstable angina (HCC) TAKE 1 TABLET [...] Aortic root 4.4 cm 4.29.2009 echo at [facility]. HTN, goal below 130/80 06/14/2009 [...] Markers for Patients with Cardiovascular Disease Project #[id number] PI: Francoise Tomlin MD Please call [phone] with study related questions INTERFACED RESULT 11/17/2008 10/17/2011 GENOMICS CARDIO RESEARCH OTHER*[id number] 200806/25/2016 Overview: Renamed Per Clinical Trials Billing Project. Study Titile: Genomic Markers for Patients with Cardiovascular Disease Project #[id number] PI: Francoise Tomlin MD Please call [phone] with study related questions CLASS I-II ANGINA [...] Comments:quit 30 yrs ago, wh ile in [place] for 4 years Alcohol Use Drinks/Week oz/Week [...] this encounter Progress Notes * Katarzyna Sawyer, [facility] - 05/29/2020 8:34 AM EST Medication [...] coronary artery disease 11/17/2008 Coronary atherosclerosis of [place] coronary artery DM type 2, goal A1c below 7 DM type 2, goal A1C to be determined (HCC) Dyslipidemia, goal LDL below 160 Dyslipidemia, goal LDL below 70 05/01/2009 Per Lipid Taxonomy. Enlarged aorta (HCC) 09/15/2009 Aortic root 4.4 cm 4.29.2009 echo at [facility]. HTN, goal below 130/80 06/14/2009 [...] since 1959 when he was in the [employer] Glucose Review/SMBG: patient does not currently test [...] to be determined ([facility]) E11.9 BG Readings Blood sugars not [...] Office Visit: 07/10/2020 Scheduled Provider(s): [facility] Nhung Sawyer [facility] Clinical Pharmacist - Mussel Farmer [facility] 05/29/2020, 8:35 AM documented in this encounter Plan of Treatment Upcoming Encounters Date Type Specialty Care Team Description 06/21/2020 Office Visit Cardiology Azael Lozano MD [address] [address] [phone] 07/10/2020 Office Visit Pharmacy Reinaldo [facility] Nhung Brown [address] [address] 10/26/2020 Office Visit Family Medicine Monty Dumont MD [address] [address] [phone] Health Maintenance Due Date Last Done Comments Dexa Scan 1986 Zoster Vaccines (1 of 2) 1985 *DEPRESSION SCREENING,ANNUAL FOR PTS 12 AND OVER 04/29/2020 CKD HGB USE SMARTSET 41657 09/19/202009/19, 04/27/2019, 03/20/2018, Additional history exists CKD GFR USE SMARTSET 37137 10/17/202004/18, 10/27/2019, 09/20/2019, Additional history exists DIABETES-HGBA1C EVERY 6 MONTHS 10/17/2020 04/18/2020, 10/27/2019, 01/12/2019, Additional history exists COLONOSCOPY-EVERY 5 YRS AGES 18-100 03/20/2021 03/20/2016, 04/30/2010, 02/05/2002 CKD PHOS USE SMARTSET 82666 04/18/2021 1205/2019, 04/27/2019, 03/20/2018 Yearly B-12 04/18/2021 [...] Documents on File Type Date Recorded Patient Caul Dresser Expl anation Advanced Directive 11/15/2008 12:00 AM [...] the patient have Health Care Power of Child Care Supervisor? Yes, not currently available Full Code [...]
--- OUTSIDE RECORDS SUMMARY | 2023-02-21 02:47 | External Medical Summary ---
Author Name Unknown Address [facility] [address] [place] [phone] Phone Organization K[address]:[place] [address] [address] [facility] [address] Laboratory Report Ordering Provider Test Date Status CROW MERRILL 04/18/2020 08:29:00 Final Observation Date Value Abnormality Reference (Units ) Status Vitamin B12 04/18/2020 15:05 [id number] (p g/mL) Final Performing Location [address] [address]
--- OUTSIDE RECORDS SUMMARY | 2023-02-21 02:48 | External Medical Summary | Summary of Care ---
Author Name Unknown Organization [place] [address] Care Team Providers Care Automatic Drill Operator Name Role Phone Monty Dumont MD Primary Care Provide r Reason for Visit * Reason Comments Follow Up 6 month return, no c oncerns Encounter Details Date Type Department Care Team Description 10/27/2019 Office Visit Family Practice [facility] [address] [facility] [address] Monty Dumont MD [address] [place] [address] [phone] 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)*; Chronic coronary artery disease; Hypertensive kidney disease with chronic kidney disease stage III (HCC); OP CABG X 3; Aortocoronary bypass status; Dyslipidemia, goal LDL below 70; S/P angioplasty with stent; HTN, goal below 140/90; Stable angina ([facility]) Allergies No Known Allergiesdocumented as of this encounter (statuses as of 10/27/2019) Medications Medication Sig Dispensed Refills Start Date [...] 15 MINUTES. 25 Tab 1 11/17/2018 Active clopidogrel (PLAVIX) 75 MG TabletIndications:Aor tocoronary bypass status,Acute coronary syndrome (HCC),Chronic coronary artery disease,Enlarged aorta (HCC) Take 1 Tab by mouth daily. 100 Tab 1 01/15/2019 Active rosuvastatin (CRESTOR) 20 MG TabletIndications:Dys lipidemia, goal LDL below 70,Dyslipidemia, goal LDL below 160,Mixed dyslipidemia TAKE 1 TABLET DAILY AT 5 P.M. IN THE AFTERNOON 90 Tab 4 03/04/2019 Active Losartan Potassium-HCTZ 100-12.5 MG per tabletIndications:HTN , goal below 140/90 Take 1 Tab by mouth daily. 90 Tab 3 04/14/2019 Active Additional Information Patient not taking. Reported on 10/27/2019 8:34 AM hydroCHLOROthiazide (HYDRODIURIL) 12.5 MG TabletIndications:HTN , goal below 140/90 Take 1 Tab by mouth daily. 90 Tab 3 04/19/2019 Active losartan (COZAAR) 100 MG TabletIndications:HTN , goal below 140/90 Take 1 Tab by mouth daily. 90 Tab 3 04/19/2019 Active Ranolazine ER 1000 MG [id number]:Chest pain,Unstable angina (HCC) TAKE 1 TABLET TWICE A DAY 180 Tab 4 06/11/2019 Active glimepiride (AMARYL) 4 MG Tablet TAKE 2 TABLETS BY MOUTH EVERY DAY WITH FIRST MEAL OF THE DAY FOR DIABETES 180 Tab 1 06/14/2019 Active metFORMIN (GLUCOPHAGE) 850 MG TabletIndications:DM type 2, goal A1C to be determined (HCC) Take 1 Tab by mouth 3 times a day. 90 Tab 5 06/14/2019 Active SITagliptin (JANUVIA) 50 MG Tablet Take 1 Tab by mouth daily. 90 Tab 1 07/05/2019 Active Isosorbide Mononitrate ER 120 MG TB24 Take 1 Tab by mouth daily. In the morning. 90 Tab 1 08/13/2019 Active metoprolol succinate XL (TOPROL XL) 25 MG VO40Rkagdysxswf:Chron ic coronary artery disease,Aortocoronary bypass status,HTN, goal below 140/90 TAKE 2 TABLETS BY MOUTH EVERY DAY 180 Tab 1 09/22/2019 Active amLODIPine (NORVASC) 5 MG TabletIndications:HTN , goal below 130/80 TAKE 1 TABLET BY MOUTH EVERY DAY 90 Tab 1 10/12/2019 Active documented as of this encounter (statuses as of 10/27/2019) Active Problems Problem Noted Date Stable angina 10/27/2019 Hypertensive kidney disease with chronic kidney disease stage III 12/10/2018 History of colon polyps 09/08/2018 Diabetes mellitus [...] as of this encounter (statuses as of 10/27/2019) Resolved Problems Problem Noted Date Resolved Date HTN, GOAL BELOW 140/80 01/06/2012 6 Overview: Per HTN Protocol #27. Unstable angina 11/23/2011 10/24/2016 Chest pain 11/22/2011 10/24/2016 NSTEMI (non-ST elevated myocardial infarction) 0 11/22/2011 12/30/2016 Acute coronary syndrome 09/15/2009 10/25/19 17 Enlarged aorta 09/15/2009 04/27/2019 Overview: Aortic root 4.4 cm 4.29.2009 echo at [facility]. HTN, goal below 130/80 06/14/2009 [...] Markers for Patients with Cardiovascular Disease Project #[phone] PI: Ricardo Yang MD Please call [phone] with study related questions INTERFACED RESULT 11/17/2008 10/17/2011 GENOMICS CARDIO RESEARCH OTHER*[id number] 200806/25/2016 Overview: Renamed Per Clinical Trials Billing Project. Study Titile: Genomic Markers for Patients with Cardiovascular Disease Project #[id number] PI: Ricardo Yang MD Please call [phone] with study related questions CLASS I-II ANGINA [...] as of this encounter (statuses as of 10/27/2019) Immunizations Name Administration Dates Next Due Pneumococcal [...] Comments:quit 30 yrs ago, wh ile in [employer] for 4 years Alcohol Use Drinks/Week oz/Week [...] file Not on file Not on file Travel History Travel Start Travel End COVID-19 Exposure Response Date Recorded In the last month, have you been in contact with someone who was confirmed or suspected to have Coronavirus / COVID-19? No / Unsure 10/27/2019 8:17 AM EDT documented as of this encounter Last Filed Vital Signs Vital Sign Reading Time Taken Comments Blood Pressure 128/60 10/27/2019 8:34 AM EDT Pulse 64 10/27/2019 8:34 AM EDT Temperature 35.8 C (96.4 F) 10/27/2019 8:34 AM ED T Respiratory Rate 14 10/27/2019 8:34 AM EDT Oxygen Saturation - - Inhaled Oxygen Concentration - - Weight 67.6 kg (149 lb) 10/27/2019 8:34 AM EDT Height - - Body Mass Index 20.78 09/20/2019 3:01 PM EDT documented in this encounter Progress Notes * Monty Dumont MD - 10/27/2019 9:06 AM EDT 10/27/2019 Author: Monty Dumont MD Assessment/Plan There are no discontinued medications. Pt is a 84 year old male here for the following problems/concerns: (E11.22, N18.3) 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) (primary encounter diagnosis) Plan: HEMOGLOBIN A1C (I25.10) Chronic coronary artery disease Plan: COMPR METAB PANEL, LIPID PANEL WITH DIRECT LDL IF TRIGLYCERIDE IS ELEVATED (I12.9, N18.3) Hypertensive kidney disease with chronic kidney disease stage III (HCC) Plan: (Z09) OP CABG X 3 Plan: (Z95.1) Aortocoronary bypass status Plan: (E78.5) Dyslipidemia, goal LDL below 70 Plan: (Z95.820) S/P angioplasty with stent Plan: (I10) HTN, goal below 140/90 Plan: (I20.8) Stable angina (HCC) Plan: No med changes F/u wtih cards Patient and or guardian communicated understanding and agreement of treatment plan including medications and there common side effects if indicated. All questions answered. CC/HPI: Dirk Garcia is a 84 year old male Chief Complaint Patient presents with Follow Up 6 month return, no concerns Brief Clinical History Mr. Garcia is an 84 year old man last seen in Family Medicine today (10-27-19). He has h/o angina, chronic diabetic complication, CKD stage 3, 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), Hypertensive kidney disease with chronic kidney disease stage III (HCC), and Stable angina (HCC). Nursing Notes: Constance Maier LPN 10/27/19 0838 Signed The patient has been properly identified by confirmation of name and date of . Chief Complaint Patient presents with Follow Up 6 month return, no concerns The patient denies the following CAD symptoms: PIRES, SOB and nausea. Hypertension Follow Up The patient is taking medications as instructed. No medication side effects are described. The patient is not monitoring home blood pressures. The patient denies any acute focal neurologic symptoms. The patient denies intermittent claudication symptoms. No myalgias or dark urine. Diabetes history:The patient has a history of non-insulin dependant diabetes.. 4-5 x night nocturia Baseline angina Using ntg rarely Problem list: 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 Dyslipidemia, goal LDL below 70 E78.5 S/P angioplasty with stent Z95.820 DM type 2, goal A1C to be determined ([facility]) E11.9 HTN, goal below 140/90 I10 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) E11.22, N18.3 History of colon polyps Z86.010 Hypertensive kidney disease with chronic kidney disease stage III (HCC) I12.9, N18.3 Stable angina (HCC) I20.8 Past Medical History: Past Medical History: Diagnosis Date Aortocoronary bypass status 12/06/2008 Benign neoplasm of colon 01/18 Chronic coronary artery disease 11/17/2008 Coronary atherosclerosis of [place] coronary artery DM type 2, goal A1c below 7 DM type 2, goal A1C to be determined ([facility]) Dyslipidemia, goal LDL below 160 Dyslipidemia, goal LDL below 70 05/01/2009 Per Lipid Taxonomy. Enlarged aorta (HCC) 09/15/2009 Aortic root 4.4 cm 4.29.2010 echo at [facility]. HTN, goal below 130/80 06/14/2009 Per HTN Taxonomy. HTN, goal below 140/90 S/P angioplasty with stent drug eluting 09/15/09 Plavix x 12m Past Surgical History: Past Surgical History: Procedure Laterality Date CABG, ARTERIAL, SINGLE 11/25/08 CORONARY ARTERY BYPASS GRAFT USING ARTERY 1 GRAFT performed by MAXIMILIANO CASILLAS at [facility] CABG, ARTERY-VEIN, TWO 11/25/08 CORONARY ARTERY BYPASS GRAFT ARTERIAL AND VENOUS 2 GRAFTS performed by MAXIMILIANO CASILLAS at [facility] CATHETERIZE LEFT HEART THRU SKIN Cardiac [...] HARVEST VEIN performed by MAXIMILIANO CASILLAS at [facility] REMOVAL OF APPENDIX age 21 Medication List: Current Outpatient Medications Medication Sig Dispense Refill amLODIPine (NORVASC) 5 MG Tablet TAKE 1 TABLET BY MOUTH EVERY DAY 90 Tab 1 metoprolol succinate XL (TOPROL XL) 25 MG TB24 TAKE 2 TABLETS BY MOUTH EVERY DAY 180 Tab 1 Isosorbide Mononitrate ER 120 MG TB24 Take 1 Tab by mouth daily. In the morning. 90 Tab 1 SITagliptin (JANUVIA) 50 MG Tablet Take 1 Tab by mouth daily. 90 Tab 1 glimepiride (AMARYL) 4 MG Tablet TAKE 2 TABLETS BY MOUTH EVERY DAY WITH FIRST MEAL OF THE DAY FOR DIABETES 180 Tab 1 metFORMIN (GLUCOPHAGE) 850 MG Tablet Take 1 Tab by mouth 3 times a day. 90 Tab 5 Ranolazine ER 1000 MG TB12 TAKE 1 TABLET TWICE A DAY 180 Tab 4 hydroCHLOROthiazide (HYDRODIURIL) 12.5 MG Tablet Take 1 Tab by mouth daily. 90 Tab 3 losartan (COZAAR) 100 MG Tablet Take 1 Tab by mouth daily. 90 Tab 3 rosuvastatin (CRESTOR) 20 MG Tablet TAKE 1 TABLET DAILY AT 5 P.M. IN THE AFTERNOON 90 Tab 4 clopidogrel (PLAVIX) 75 MG Tablet Take 1 Tab by mouth daily. 100 Tab 1 isosorbide dinitrate (ISORDIL) 20 MG [...] LANCETS MISC test daily 1 box 11 Losartan Potassium-HCTZ 100-12.5 MG per tablet Take 1 Tab by mouth daily. (Patient not taking: Reported on 10/27/2019) 90 Tab 3 nitroglycerin (NITROSTAT) 0.4 MG SUBL DISSOLVE 1 TABLET UNDER THE TONGUE EVERY 5 MINUTES FOR CHEST PAIN. UP TO 3 DOSES IN 15 MINUTES. 25 Tab 1 Allergies: Patient has no known allergies. Problem list, Past Medical History, Family history and social history reviewed and updated in [facility] EHR ROS: No nausea, vomiting or diarrhea. No chest pain or shortness of breath, No fatigue. No fevers, chillor night sweats. All other ROS examined in detail and are negative except as documented in HPI. Vitals: BP 128/60 | Pulse 64 | Temp (Src) 96.4 (Tympanic) | Resp 14 | Wt 149 lbs (67.586kg) | BMI 20.78 kg/m | BSA 1.84 m BMI: 20.78 kg/m Exam: General: alert, healthy and no distress [...] at the top of the page * Constance Maier LPN - 10/27/2019 8:37 AM EDT Hemoglobin a1c ordered today. Provider aware. Constance Maier LPN documented in this encounter Nursing Notes * Constance Maier LPN - 10/27/2019 8:34 AM EDT The patient has been properly identified by confirmation of name and date of . Chief Complaint Patient presents with Follow Up 6 month return, no concerns documented in this encounter Plan of Treatment Upcoming Encounters Date Type Specialty Care Team Description 04/27/2020 Office Visit Family Medicine Monty Dumont MD [address] [address] [phone] 06/21/2020 Office Visit Cardiology Azael Lozano MD [address] [address] [phone] Pending Results Name Type Priority Associated Diagnoses Date /Time HEMOGLOBIN A1C Lab Routine 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) 10/27/2019 9:03 AM EDT COMPR METAB PANEL Lab Routine Chronic coronary artery disease 10/27/2019 9:03 AM EDT LIPID PANEL WITH DIRECT LDL IF TRIGLYCERIDE IS ELEVATED Lab Routine Chronic coronary artery disease 10/27/2019 9:03 AM EDT Scheduled Orders Name Type Priority Associated Diagnoses Orde r Schedule HEMOGLOBIN A1C Lab Routine 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) Expected: 10/27/2019 (Approximate), Expires: 10/26/2020 COMPR METAB PANEL Lab Routine Chronic coronary artery disease Expected: 10/27/2019 (Approximate), Expires: 01/27/2020 LIPID PANEL WITH DIRECT LDL IF TRIGLYCERIDE IS ELEVATED Lab Routine Chronic coronary artery disease Expected: 10/27/2019 (Approximate), Expires: 01/27/2020 Health Maintenance Due Date Last Done Comments Zoster Vaccines (1 of 2) 1985 DIABETES-HGBA1C EVERY 6 MONTHS 07/15/2019 01/12/2019, 03/20/2018, 05/01/2017, Additional history exists CKD GFR USE SMARTSET 69503 03/22/202009/19, 04/27/2019, 03/20/2018, Additional history exists CKD PHOS USE SMARTSET 60621 04/27/2020 04/27/2019, 1 05/20/2017 DIABETES-FOOT EXAM 04/27/2020 04/27/2019, 1 05/20/2017, 10/24/2016, Additional history exists Yearly B-12 04/27/2020 04/27/2019, 05/01/2017 CKD HGB USE SMARTSET 73948 09/19/202009/19, 04/27/2019, 03/20/2018, Additional history exists COLONOSCOPY-EVERY 5 YRS AGES 18-100 03/20/2021 03/20/2016, 04/30/2010, 02/05/2002 DTaP,Tdap,and Td Vaccines (2 - Td) 07/10/2022 07/10/2012 Pneumococcal Vaccine: 65+ Years Completed 01/18/2016, 11/20/2004 Influenza Vaccine (FLU shot) Completed , 03/01/2018, 03/02/2017, Additional history exists MENINGOCOCCAL (MENACTRA/MENVEO) Aged Out No longer eligible based on patient's age to complete this topic documented as of this encounter Implants Not on filedocumented as of this encounter Visit Diagnoses Diagnosis 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)- Primary Type II or unspecified type diabetes mellitus with renal manifestations, not stated as uncontrolled Chronic coronary artery disease Coronary atherosclerosis of unspecified type of vessel, [place] or graft Hypertensive kidney disease with chronic kidney disease stage III (HCC) Unspecified hypertensive kidney disease with chronic kidney disease stage I through stage IV, or unspecified OP CABG X 3 Follow-up examination, following other surgery Aortocoronary bypass status Postsurgical aortocoronary bypass status Dyslipidemia, goal LDL below 70 Other and unspecified hyperlipidemia S/P angioplasty with stent Postsurgical percutaneous transluminal coronary angioplasty status HTN, goal below 140/90 Unspecified essential hypertension Stable angina (HCC) Other and unspecified angina pectoris documented in this encounter Advance Directives Documents on File Type Date Recorded Patient Mild Disabilities Teacher Expl anation Advanced Directive 11/15/2008 12:00 AM [...] the patient have Health Care Power of Radio Journalist? Yes, not currently available Full Code 09/15/2009 [...]
--- OUTSIDE RECORDS SUMMARY | 2023-02-21 02:48 | External Medical Summary | Summary of Care ---
Author Name Unknown Organization [place] [address] Care Team Providers Care Full Decator Operator Name Role Phone Monty Dumont MD Primary Care Provide r Reason for Visit * Reason Onset Date Comments Medication Refill 04/05/2020 Encounter Details Date Type Department Care Team Description 04/05/2020 Refill Cardiology, [facility] [address] [place] [address] Sushila Lozano MD [address] [place] [address] [phone] HTN, goal below 140/90 Allergies No Known Active Allergiesdocumented as of this encounter (statuses as of 04/05/2020) Medications Medication Sig Dispensed Refills Start Date [...] Information Patient not taking. Reported on 10/27/2019 hydroCHLOROthiazid e (HYDRODIURIL) 12.5 MG TabletIndications: HTN, goal below 140/90 Take 1 Tab by mouth daily. 90 Tab 3 04/19/2019 Active Ranolazine ER 1000 MG [id number]:Ch est pain,Unstable angina (HCC) TAKE 1 TABLET TWICE A DAY 180 Tab 4 06/11/2019 Active metFORMIN (GLUCOPHAGE) 500 MG Tablet Take 1 Tab by mouth daily with breakfast. 30 Tab 5 10/28/2019 Active JANUVIA 50 MG Tablet TAKE 1 [...] mouth daily. 90 Tab 3 04/05/2020 Active losartan (COZAAR) 100 MG TabletIndications: HTN, goal below 140/90 Take 1 Tab by mouth daily. 90 Tab 3 04/19/2019 04/05/2020 Discontinue d(Refill) documented as of this encounter (statuses as of 04/05/2020) Active Problems Problem Noted Date Hypertensive kidney [...] as of this encounter (statuses as of 04/05/2020) Resolved Problems Problem Noted Date Resolved Date [...] Aortic root 4.4 cm 4.29.2009 echo at [facility]. HTN, goal below 130/80 06/14/2009 [...] Markers for Patients with Cardiovascular Disease Project #[id number] PI: Francoise Tomlin MD Please call [phone] with study related questions INTERFACED RESULT 11/17/2008 10/17/2011 GENOMICS CARDIO RESEARCH OTHER*[id number] 200806/25/2016 Overview: Renamed Per Clinical Trials Billing Project. Study Titile: Genomic Markers for Patients with Cardiovascular Disease Project #[id number] PI: Francoise Tomlin MD Please call [phone] with study related questions CLASS I-II ANGINA [...] as of this encounter (statuses as of 04/05/2020) Immunizations Name Administration Dates Next Due Pneumococcal [...] encounter Miscellaneous Notes * Addendum Note - Aguilar Anna RN - 04/05/2020 2:33 PM EST Addended by: AGUILAR ANNA on: 04/05/2020 02:33 PM Modules accepted: Orders * Telephone Encounter - Sushila Lozano MD - 04/05/2020 2:19 PM EST Signed Prescriptions: Disp Refills Losartan Potassium 100 MG Oral Tablet (COZ*90 Tab 3 Sig: Take 1 Tab by mouth daily. Authorizing Provider: SUSHILA LOZANO * Telephone Encounter - Aguilar Anna RN - 04/05/2020 2:04 PM EST Pending Prescriptions: Disp Refills Losartan Potassium 100 MG Oral Tablet (CO*90 Tab 3 Sig: Take 1 Tab by mouth daily. Last Office/Telemedicine Visit: 09/17/2019 Next Office Visit: 06/21/2020 Scheduled Provider(s): Sushila Lozano MD Last medication order date: 04/19/2019 Have you choosen a preferred pharm?? 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 Dyslipidemia, goal LDL below 70 E78.5 S/P angioplasty with stent Z95.820 DM type 2, goal A1C to be determined ([facility]) E11.9 HTN, goal below 140/90 I10 Diabetes mellitus with stage 3 chronic kidney disease ([facility]) E11.22, N18.30 History of colon polyps Z86.010 Stable angina ([facility]) I20.8 Hypertensive kidney disease with stage 3b chronic kidney disease I12.9, N18.32 Labs: CREATININE(mg/dL) Frida Dt/Tm Resulted Value Status 10/27/19 9:03A 10/27/19 1.7* FINAL POTASSIUM(mmol/L) Frida Dt/Tm Resulted Value Status 10/27/19 9:03A 10/27/19 5.1 FINAL TSH(uIU/mL) Frida Dt/Tm Resulted Value Status 01/01/17 1:44P 01/01/17 2.81 FINAL LDL (CALCULATED)(mg/dL) Frida Dt/Tm Resulted Value Status 10/27/19 9:03A 10/27/19 30 FINAL LDL DIRECT(REFLEX)(mg/dL) Frida Dt/Tm Resulted Value Status 10/27/19 9:03A 10/27/19 FINAL Value: NOT APPLICABLE ALT(U/L) Frida Dt/Tm Resulted Value Status 10/27/19 9:03A 10/27/19 20 FINAL Hemoglobin AIC Results: HEMOGLOBIN, A1C(%) Frida Dt/Tm Resulted Value Status 10/27/19 9:03A 10/27/19 6.4* FINAL 01/12/19 2:01P 01/12/19 6.5* FINAL 03/20/18 9:15A 03/20/18 7.0* FINAL documented in this encounter Plan of Treatment Upcoming Encounters Date Type Specialty Care Team Description 04/18/2020 Laboratory Laboratory [facility] [address] [place] [address] [phone] 04/27/2020 Office Visit Family Medicine Monty Dumont MD [address] [place] [address] [phone] 06/21/2020 Office Visit Cardiology Sushila Lozano MD [address] [place] [address] [phone] Health Maintenance Due Date Last Done Comments Dexa Scan 1985 Zoster Vaccines (1 of 2) 1985 Influenza Vaccine (FLU shot) (#1) 2019 03/02/2019, 03/01/2018, 03/02/2017, Additional history exists CKD GFR USE SMARTSET 61927 04/27/202010/26, 09/20/2019, 04/27/2019, Additional history exists CKD PHOS USE SMARTSET 93536 04/27/2020 04/27/2019, 1 05/20/2017 DIABETES-FOOT EXAM 04/27/2020 04/27/2019, 1 05/20/2017, 10/24/2016, Additional history exists DIABETES-HGBA1C EVERY 6 MONTHS 04/27/2020 10/27/2019, 01/12/2019, 03/20/2018, Additional history exists Yearly B-12 04/27/2020 04/27/2019, 05/01/2017 CKD HGB USE SMARTSET 34002 09/19/202009/19, 04/27/2019, 03/20/2018, Additional history exists COLONOSCOPY-EVERY [...] on File Type Date Recorded Patient Sales Marketing Expl anation Advanced Directive 11/15/2008 12:00 AM [...] the patient have Health Care Power of Bee Keeper? Yes, not currently available Full Code 09/15/2009 [...]
--- OUTSIDE RECORDS SUMMARY | 2023-02-21 02:48 | External Medical Summary | Summary of Care ---
Author Name Unknown Organization [place] [address] Care Team Providers Care Pea Viner Mechanic Name Role Phone Monty Dumont MD Primary Care Provide r Reason for Visit * Reason Comments eRx-Medication Refill Encounter Details Date Type Department Care Team Description 04/02/2020 Refill Cardiology, [facility] [address] [place] [address] Faraz Escalante Jr., [address] [place] [address] [phone] HTN, goal below 130/80 Allergies No Known Active Allergiesdocumented as of this encounter (statuses as of 04/03/2020) Medications Medication Sig Dispensed Refills Start Date [...] 3 04/19/2019 Active losartan (COZAAR) 100 MG TabletIndications: HTN, goal below 140/90 Take 1 Tab by mouth daily. 90 Tab 3 04/19/2019 Active Ranolazine ER 1000 MG CY02Hicjsxfhvoo:Ch est pain,Unstable angina (HCC) TAKE 1 TABLET [...] EVERY DAY 90 Tab 3 04/03/2020 Active amLODIPine (NORVASC) 5 MG TabletIndications: HTN, goal below 130/80 TAKE 1 TABLET BY MOUTH EVERY DAY 90 Tab 1 10/12/2019 0 Discontinued documented as of this encounter (statuses as of 04/03/2020) Active Problems Problem Noted Date Hypertensive kidney [...] as of this encounter (statuses as of 04/03/2020) Resolved Problems Problem Noted Date Resolved Date [...] Markers for Patients with Cardiovascular Disease Project #[id number] PI: Francoise Tomlin MD Please call [phone] with study related questions INTERFACED RESULT 11/17/2008 10/17/2011 GENOMICS CARDIO RESEARCH OTHER*[id number] 200806/25/2016 Overview: Renamed Per Clinical Trials Billing Project. Study Titile: Genomic Markers for Patients with Cardiovascular Disease Project #[id number] PI: Francoise Tomlin MD Please call [phone] with study related questions CLASS I-II ANGINA [...] as of this encounter (statuses as of 04/03/2020) Immunizations Name Administration Dates Next Due Pneumococcal [...] Telephone Encounter - Sushila Lozano MD - 04/03/2020 8:36 AM EST Signed Prescriptions: Disp Refills amLODIPine Besylate 5 MG Oral Tablet (NORV*90 Tab 3 Sig: TAKE 1 TABLET BY MOUTH EVERY DAY Authorizing Provider: SUSHILA LOZANO * Telephone Encounter - Aguilar Hanson RN - 04/03/2020 7:23 AM EST Pending Prescriptions: Disp Refills amLODIPine Besylate 5 MG Oral Tablet (NOR*90 Tab 3 Sig: TAKE 1 TABLET BY MOUTH EVERY DAY * Telephone Encounter - Aguilar Hanson RN - 04/03/2020 7:22 AM EST Pending Prescriptions: Disp Refills amLODIPine Besylate 5 MG Oral Tablet (NOR*90 Tab 3 Sig: TAKE 1 TABLET BY MOUTH EVERY DAY Last Office/Telemedicine Visit: 09/17/2019 Next Office Visit: 06/21/2020 Scheduled Provider(s): Sushila Lozano MD Last medication order date: 10/12/2019 Have you choosen a preferred pharm?? 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 Dyslipidemia, goal LDL below 70 E78.5 S/P angioplasty with stent Z95.820 DM type 2, goal A1C to be determined ([facility]) E11.9 HTN, goal below 140/90 I10 Diabetes mellitus with stage 3 chronic kidney disease ([facility]) E11.22, N18.30 History of colon polyps Z86.010 Stable angina ([facility]) I20.8 Hypertensive kidney disease with stage 3b [...] Specialty Care Team Description 04/18/2020 Laboratory Laboratory [facility] Celia Brown [address] [place] [address] [phone] 04/27/2020 Office Visit Family Medicine Monty Dumont MD [address] [place] [address] [phone] 06/21/2020 Office Visit Cardiology Sushila Lozano MD [address] [place] [address] [phone] Health Maintenance Due Date Last Done Comments Dexa Scan 1985 Zoster Vaccines (1 of 2) 1985 Influenza Vaccine (FLU shot) (#1) 2019 03/02/2019, 03/01/2018, 03/02/2017, Additional history exists CKD GFR USE SMARTSET 12942 04/27/202010/26, 09/20/2019, 04/27/2019, Additional history exists CKD PHOS USE SMARTSET 03796 04/27/2020 04/27/2019, 1 05/20/2017 DIABETES-FOOT EXAM 04/27/2020 04/27/2019, 1 05/20/2017, 10/24/2016, Additional history exists DIABETES-HGBA1C EVERY 6 MONTHS 04/27/2020 10/27/2019, 01/12/2019, 03/20/2018, Additional history exists Yearly B-12 04/27/2020 04/27/2019, 05/01/2017 CKD HGB USE SMARTSET 22061 09/19/202009/19, 04/27/2019, 03/20/2018, Additional history exists COLONOSCOPY-EVERY [...] Documents on File Type Date Recorded Patient Burner Operator Expl anation Advanced Directive 11/15/2008 12:00 [...] the patient have Health Care Power of Gravity Manager? Yes, not currently available Full Code [...]
--- OUTSIDE RECORDS SUMMARY | 2023-02-21 02:48 | External Medical Summary | Summary of Care ---
Author Name Unknown Organization [place] [address] Care Team Providers Care Services Engineer Name Role Phone Monty Dumont MD Primary Care Provide r Reason for Visit * Reason Comments eRx-Medication Refill Encounter Details Date Type Department Care Team Description 09/22/2019 Refill Cardiology, [facility] [address] [place] [address] Thomas Cullen, [address] [place] [address] [phone] Chronic coronary artery disease; Aortocoronary bypass status; HTN, goal below 140/90 Allergies No Known Allergiesdocumented as of this encounter (statuses as of 09/22/2019) Medications Medication Sig Dispensed Refills Start Date [...] 1 11/17/2018 Active clopidogrel (PLAVIX) 75 MG TabletIndications: Aortocoronary bypass status,Acute coronary syndrome (HCC),Chronic coronary artery disease,Enlarged aorta (HCC) Take 1 Tab by mouth daily. 100 Tab 1 01/15/2019 Active rosuvastatin (CRESTOR) 20 MG TabletIndications: Dyslipidemia, goal LDL below 70,Dyslipidemia, goal LDL below 160,Mixed dyslipidemia TAKE 1 TABLET DAILY AT 5 P.M. IN THE AFTERNOON 90 Tab 4 03/04/2019 Active Losartan Potassium-HCTZ 100-12.5 MG per tabletIndications: HTN, goal below 140/90 Take 1 Tab by mouth daily. 90 Tab 3 04/14/2019 Active hydroCHLOROthiazid e (HYDRODIURIL) 12.5 MG TabletIndications: HTN, goal below 140/90 Take 1 Tab by mouth daily. 90 Tab 3 04/19/2019 Active losartan (COZAAR) 100 MG TabletIndications: HTN, goal below 140/90 Take 1 Tab by mouth daily. 90 Tab 3 04/19/2019 Active amLODIPine (NORVASC) 5 MG TabletIndications: HTN, goal below 130/80 Take 1 Tab by mouth daily. 90 Tab 1 04/26/2019 Active Ranolazine ER 1000 MG OK06Imptcaujvwa:Ch est pain,Unstable angina (HCC) TAKE 1 TABLET TWICE A DAY 180 Tab 4 06/11/2019 Active glimepiride (AMARYL) 4 MG Tablet TAKE 2 TABLETS BY MOUTH EVERY DAY WITH FIRST MEAL OF THE DAY FOR DIABETES 180 Tab 1 06/14/2019 Active metFORMIN (GLUCOPHAGE) 850 MG TabletIndications: DM type 2, goal A1C to be determined ([facility]) Take 1 Tab by mouth 3 times a day. 90 Tab 5 06/14/2019 Active SITagliptin (JANUVIA) 50 MG Tablet Take 1 Tab by mouth daily. 90 Tab 1 07/05/2019 Active Isosorbide Mononitrate ER 120 MG TB24 Take 1 Tab by mouth daily. In the morning. 90 Tab 1 08/13/2019 Active metoprolol succinate XL (TOPROL XL) 25 MG DR15Nbmntnkzhms:Ch ronic coronary artery disease,Aortocoron jovanna bypass status,HTN, goal below 140/90 TAKE 2 TABLETS BY MOUTH EVERY DAY 180 Tab 1 09/22/2019 Active metoprolol succinate XL (TOPROL XL) 25 MG HW04Hmnuqtldtbx:Ch ronic coronary artery disease,Aortocoron jovanna bypass status,HTN, goal below 140/90 TAKE 2 TABLETS BY MOUTH EVERY DAY 180 Tab 1 04/07/2019 09/22/2019 Discontinued documented as of this encounter (statuses as of 09/22/2019) Active Problems Problem Noted Date Hypertensive kidney disease with chronic kidney [...] as of this encounter (statuses as of 09/22/2019) Resolved Problems Problem Noted Date Resolved Date [...] Markers for Patients with Cardiovascular Disease Project #[id number] PI: Francoise Tomlin MD Please call [phone] with study related questions INTERFACED RESULT 11/17/2008 10/17/2011 GENOMICS CARDIO RESEARCH OTHER*[id number] 200806/25/2016 Overview: Renamed Per Clinical Trials Billing Project. Study Titile: Genomic Markers for Patients with Cardiovascular Disease Project #[id number] PI: Francoise Tomlin MD Please call [phone] with study related questions CLASS I-II ANGINA [...] as of this encounter (statuses as of 09/22/2019) Immunizations Name Administration Dates Next Due Pneumococcal [...] Date Former Smoker Cigarettes 0.5 5 Quit: 01/01 /1985 Smokeless Tobacco: Never Used Comments:quit 30 yrs ago, wh ile in [employer] for 4 years Alcohol Use Drinks/Week oz/Week Comments Yes a beer per nigh t Food Insecurity Answer Date Recorded Within the past 12 months, y ou worried that your food would run out before you got money to buy more. Never true Within the past 12 months, t he food you bought just didn't last and you didn't have money to get more. Never true Sex Assigned at Date Recorded Not on file Job Start Date Occupation Industry Not on file Not on file Not on file Travel History Travel Start Travel End COVID-19 Exposure Response Date Recorded In the last month, have you been in contact with someone who was confirmed or suspected to have Coronavirus / COVID-19? No / Unsure 09/20/2019 8:06 AM EDT documented as of this encounter Miscellaneous Notes * Telephone Encounter - Silvia Beaulieu RN - 09/22/2019 8:39 AM EDT Pending Prescriptions: Disp Refills metoprolol succinate XL (TOPROL XL) 25 MG*180 Tab1 Sig: TAKE 2 TABLETS BY MOUTH EVERY DAY * Telephone Encounter - Silvia Beaulieu RN - 09/22/2019 8:38 AM EDT Pending Prescriptions: Disp Refills metoprolol succinate XL (TOPROL XL) 25 MG*180 Tab1 Sig: TAKE 2 TABLETS BY MOUTH EVERY DAY Last Office/Telemedicine Visit: 09/17/2019 Next Office Visit: 06/21/2020 Scheduled Provider(s): Azael Lozano MD If no future appointments scheduled, and last appointment is greater than a year ago, please schedule patient for a follow-up appointment Last date the medication was ordered: Pharmacy: [facility] [id number] [place] Is this request for a controlled substance?No Urine Drug Screen:No results found for this or any previous visit. Patient Phone Numbers Labs: Lab Results Component Value Date/Time CREAT 1.6 (H) 09/20/2019 04:21 PM POTASSIUM 4.7 09/20/2019 04:21 PM TSH 2.81 01/01/2017 01:44 PM LDLCALC 20 11/23/2011 05:00 AM LDLDIRECT 50 10/24/2016 11:50 AM ALT 19 04/27/2019 09:54 AM HGBA1C 6.5 (H) 01/12/2019 02:01 PM documented in this encounter Plan of Treatment Upcoming Encounters Date Type Specialty Care Team Description 10/27/2019 Office Visit Family Medicine Monty Dumont MD [address] [place] [address] [phone] 06/21/2020 Office Visit Cardiology Azael Lozano MD [address] [place] [address] [phone] Health Maintenance Due Date Last Done Comments Zoster Vaccines (1 of 2) 1985 DIABETES-HGBA1C EVERY 6 MONTHS 07/15/2019 01/12/2019, 03/20/2018, 05/01/2017, Additional history exists CKD GFR USE SMARTSET 64913 03/22/202009/19, 04/27/2019, 03/20/2018, Additional history exists CKD PHOS USE SMARTSET 37299 04/27/2020 04/27/2019, 1 05/20/2017 DIABETES-FOOT EXAM 04/27/2020 04/27/2019, 1 05/20/2017, 10/24/2016, Additional history exists Yearly B-12 04/27/2020 04/27/2019, 05/01/2017 CKD HGB USE SMARTSET 41997 09/19/202009/19, 04/27/2019, 03/20/2018, Additional history exists COLONOSCOPY-EVERY [...] Coronary atherosclerosis of unspecified type of vessel, [place] or graft Aortocoronary bypass status Postsurgical aortocoronary bypass status HTN, goal below 140/90 Unspecified essential hypertension documented in this encounter Advance Directives Documents on File Type Date Recorded Patient Hydraulic Technician Expl anation Advanced Directive 11/15/2008 12:00 [...] President Supply Chain? Yes, not currently available Full Code 09/15/2009 [...]
--- OUTSIDE RECORDS SUMMARY | 2023-02-21 02:48 | External Medical Summary ---
Author Name Unknown Address [address] [facility] [place] [address] Phone Organization [id number] [address] [facility] [place] [address] Laboratory Report Ordering Provider Test Date Status GARFIELDCROW 10/27/2019 09:03:00 Final Observation Date Value Abnormality Reference (Units ) Status Fasting status Patient Ql Reported 10/27/2019 09:05 >8 HOURS (hours) Final Triglyceride 10/27/2019 14:26 129 0-174 (mg/dL) Final Performing Location [facility] Najera [address] [place] [address]
--- OUTSIDE RECORDS SUMMARY | 2023-02-21 02:48 | External Medical Summary | Summary of Care ---
Author Name Unknown Organization [place] [address] Care Team Providers Care Blacktop Spreader Name Role Phone Monty Dumont MD Primary Care Provide r Reason for Visit * Reason Comments Health Maintenance Mobile Bus Encounter Details Date Type Department Care Team Description 11/16/2019 Telephone Family Practice [facility] [address] [facility] [place] [address] Monty Dumont MD [address] [place] [address] [phone] Health Maintenance (Mobile Bus) Allergies No Known Allergiesdocumented as of this encounter (statuses as of 11/16/2019) Medications Medication Sig Dispensed Refills Start Date End Date Status ONE TOUCH ULTRA DEVIIndications:DM type 2, not at goal ([facility]) check daily 1 0 12/11/2005 Active ONE TOUCH ULTRA CONTROL SOLNIndications:DM type 2, not at goal ([facility]) check daily 1 11 12/11/2005 Active ONE TOUCH ULTRA TEST STRPIndications:DM type 2, not at goal ([facility]) test daily 1 box 11 12/11/2005 Active ONE TOUCH ULTRASOFT LANCETS MISCIndications:DM type 2, not at goal ([facility] [...] 3 04/19/2019 Active Ranolazine ER 1000 MG GM68Widielqlnmm:Chest pain,Unstable angina (HCC) TAKE 1 TABLET TWICE A DAY 180 Tab 4 06/11/2019 Active SITagliptin (JANUVIA) 50 MG Tablet Take 1 Tab by mouth daily. 90 Tab 1 07/05/2019 Active Isosorbide Mononitrate ER 120 MG TB24 Take 1 Tab by mouth daily. In the morning. 90 Tab 1 08/13/2019 Active metoprolol succinate XL (TOPROL XL) 25 MG TG15Frrvxyhnzwv:Chron ic coronary artery disease,Aortocoronary bypass status,HTN, goal below 140/90 TAKE 2 TABLETS BY MOUTH EVERY DAY 180 Tab 1 09/22/2019 Active amLODIPine (NORVASC) 5 MG TabletIndications:HTN , goal below 130/80 TAKE 1 TABLET BY MOUTH EVERY DAY 90 Tab 1 10/12/2019 Active metFORMIN (GLUCOPHAGE) 500 MG Tablet Take 1 Tab by mouth daily with breakfast. 30 Tab 5 10/28/2019 Active glimepiride (AMARYL) 4 MG Tablet TAKE 2 TABLETS BY MOUTH EVERY DAY WITH FIRST MEAL OF THE DAY FOR DIABETES 180 Tab 1 11/15/2019 Active documented as of this encounter (statuses as of 11/16/2019) Active Problems Problem Noted Date Stable angina [...] as of this encounter (statuses as of 11/16/2019) Resolved Problems Problem Noted Date Resolved Date HTN, GOAL BELOW 140/80 01/06/2012 6 Overview: Per HTN Protocol #27. Unstable angina 11/23/2011 10/24/2016 Chest pain 11/22/2011 10/24/2016 NSTEMI (non-ST elevated myocardial infarction) 0 11/22/2011 12/30/2016 Acute coronary syndrome 09/15/2009 10/25/19 17 Enlarged aorta 09/15/2009 04/27/2019 Overview: Aortic root 4.4 cm 4.29.2009 echo at [facility]. HTN, goal below 130/80 06/14/2009 2 Overview: Per HTN Taxonomy. Type 2 diabetes mellitus wit h hemoglobin A1c goal of less than 7.0% 03/02/2009 03/27/2011 Overview: Modified per Diabetes protocol #14. ICD-10 update of inactive term EXAMINATION OF PARTICIPANT IN CLINICAL TRIAL-gen omics 11/17/2008 09/01/2009 Overview: Renamed Per Clinical Trials Billing Project. Study Titile: Genomic Markers for Patients with Cardiovascular Disease Project #[id number] PI: Francoise Tomlin MD Please call [phone] with study related questions INTERFACED RESULT 11/17/2008 10/17/2011 GENOMICS CARDIO RESEARCH OTHER*[id number] 200806/25/2016 Overview: Renamed Per Clinical Trials Billing Project. Study Titile: Genomic Markers for Patients with Cardiovascular Disease Project #[id number] PI: Francoise Tomlin MD Please call [phone] with study related questions CLASS I-II ANGINA [...] as of this encounter (statuses as of 11/16/2019) Immunizations Name Administration Dates Next Due Pneumococcal [...] Comments:quit 30 yrs ago, wh ile in [employer] for 4 years Alcohol Use Drinks/Week oz/Week [...] have Coronavirus / COVID-19? No / Unsure 11/16/2019 11:20 AM EDT documented as of this encounter Miscellaneous Notes * Telephone Encounter - Fariba Crump LPN - 11/16/2019 11:18 AM EDT Patient contacted for Care Gaps Comprehensive Care Outreach. Last Office/Telemedicine Visit: 10/27/2019 Next Office Visit: 04/27/2020 Scheduled Provider(s): Monty Dumont MD Health Maintenance Topic Date Due Zoster Vaccines (1 of 2) 1985 DIABETES-FOOT EXAM 04/27/2020 DIABETES-HGBA1C EVERY 6 MONTHS 04/27/2020 CKD GFR USE SMARTSET 21866 04/27/2020 CKD PHOS USE SMARTSET 16909 04/27/2020 Yearly B-12 04/27/2020 Outreach action taken: Labs ordered and scheduled Contacted: Spoke with patient - documented in this encounter Plan of Treatment Upcoming Encounters Date Type Specialty Care Team Description 04/18/2020 Laboratory Laboratory [facility] [address] [place] [address] [phone] 04/27/2020 Office Visit Family Medicine Monty Dumont MD [address] [place] [address] [phone] 06/21/2020 Office Visit Cardiology Azael Lozano MD [address] [place] [address] [phone] Scheduled Orders Name Type Priority Associated Diagnoses Orde r Schedule COMPR METAB PANEL Lab Routine Hypertension, unspecified type Expected: 04/18/2020, Expires: 11/15/2020 PHOSPHORUS Lab Routine Chronic kidney disease, unspecified CKD stage Expected: 04/18/2020, Expires: 11/15/2020 VITAMIN B12 Lab Routine On intermodal dispatcher drug therapy Expected: 04/18/2020, Expires: 11/15/2020 HEMOGLOBIN A1C Lab Routine Diabetes mellitus screening Expected: 04/18/2020, Expires: 11/15/2020 Health Maintenance Due Date Last Done Comments Zoster Vaccines (1 of 2) 1986 CKD GFR USE SMARTSET 10393 04/27/202010/26, 09/20/2019, 04/27/2019, Additional history exists CKD PHOS USE SMARTSET 37428 04/27/2020 04/27/2019, 1 05/20/2017 DIABETES-FOOT EXAM 04/27/2020 04/27/2019, 1 05/20/2017, 10/24/2016, Additional history exists DIABETES-HGBA1C EVERY 6 MONTHS 04/27/2020 10/27/2019, 01/12/2019, 03/20/2018, Additional history exists Yearly B-12 04/27/2020 04/27/2019, 05/01/2017 CKD HGB USE SMARTSET 13920 09/19/202009/19, 04/27/2019, 03/20/2018, Additional history exists COLONOSCOPY-EVERY [...] this encounter Visit Diagnoses Diagnosis Diabetes mellitus screening Screening for diabetes mellitus On [facility] drug therapy Chronic kidney disease, unspecified CKD stage Hypertension, unspecified type documented in this encounter Advance Directives Documents on File Type Date Recorded Patient Buhr Dresser Expl anation Advanced Directive 11/15/2008 12:00 [...] the patient have Health Care Power of Assembler Fitter? Yes, not currently available Full Code 09/15/2009 [...]
--- OUTSIDE RECORDS SUMMARY | 2023-02-21 02:48 | External Medical Summary | Summary of Care ---
Author Name Unknown Organization [place] [address] Care Team Providers Care Timber Hewer Name Role Phone Monty Maria MD Primary Care Provide r Reason for Visit * Reason Comments eRx-Medication Refill Encounter Details Date Type Department Care Team Description 11/14/2019 Refill Family Practice [facility] [address] [facility] [place] [address] Monty Maria MD [address] [place] [address] [phone] Allergies No Known Allergiesdocumented as of this encounter (statuses as of 11/15/2019) Medications Medication Sig Dispensed Refills Start Date End Date Status ONE TOUCH ULTRA DEVIIndications:DM type 2, not at goal ([facility]) check daily 1 0 12/11/2005 Active ONE TOUCH ULTRA CONTROL SOLNIndications:DM type 2, not at goal (HCC) check daily 1 11 12/11/2005 Active ONE TOUCH ULTRA TEST STRPIndications:DM type 2, not at goal (HCC) test daily 1 box 11 12/11/2005 Active ONE TOUCH ULTRASOFT LANCETS MISCIndications:DM type 2, not at goal ([facility]) test daily 1 box 11 12/11/2005 Active [...] not taking. Reported on 10/27/2019 8:34 AM hydroCHLOROthiazid e (HYDRODIURIL) 12.5 MG TabletIndications: HTN, goal below 140/90 Take 1 Tab by mouth daily. 90 Tab 3 04/19/2019 Active losartan (COZAAR) 100 MG TabletIndications: HTN, goal below 140/90 Take 1 Tab by mouth daily. 90 Tab 3 04/19/2019 Active Ranolazine ER 1000 MG GM45Wndcueuukgw:Ch est pain,Unstable angina (HCC) TAKE 1 TABLET TWICE A DAY 180 Tab 4 06/11/2019 Active SITagliptin (JANUVIA) 50 MG Tablet Take 1 Tab by mouth daily. 90 Tab 1 07/05/2019 Active Isosorbide Mononitrate ER 120 MG TB24 Take 1 Tab by mouth daily. In the morning. 90 Tab 1 08/13/2019 Active metoprolol succinate XL (TOPROL XL) 25 MG WZ41Lelametkqzs:Ch ronic coronary artery disease,Aortocoron jovanna bypass status,HTN, goal below 140/90 TAKE 2 TABLETS BY MOUTH EVERY DAY 180 Tab 1 09/22/2019 Active amLODIPine (NORVASC) 5 MG TabletIndications: HTN, [...] FOR DIABETES 180 Tab 1 11/15/2019 Active glimepiride (AMARYL) 4 MG Tablet TAKE 2 TABLETS BY MOUTH EVERY DAY WITH FIRST MEAL OF THE DAY FOR DIABETES 180 Tab 1 06/14/2019 0 Discontinued documented as of this encounter (statuses as of 11/15/2019) Active Problems Problem Noted Date Stable angina [...] as of this encounter (statuses as of 11/15/2019) Resolved Problems Problem Noted Date Resolved Date HTN, GOAL BELOW 140/80 01/06/2012 6 Overview: Per HTN Protocol #27. Unstable angina 11/23/2011 10/24/2016 Chest pain 11/22/2011 10/24/2016 NSTEMI (non-ST elevated myocardial infarction) 0 11/22/2011 12/30/2016 Acute coronary syndrome 09/15/2009 10/25/19 17 Enlarged aorta 09/15/2009 04/27/2019 Overview: Aortic root 4.4 cm 4.29.2009 echo at [facility]. HTN, goal below [...] Markers for Patients with Cardiovascular Disease Project #[id number] PI: Francoise Tomlin MD Please call [phone] with study related questions INTERFACED RESULT 11/17/2008 10/17/2011 GENOMICS CARDIO RESEARCH OTHER*[id number] 200806/25/2016 Overview: Renamed Per Clinical Trials Billing Project. Study Titile: Genomic Markers for Patients with Cardiovascular Disease Project #[id number] PI: Francoise Tomlin MD Please call [phone] with study related questions CLASS I-II ANGINA [...] as of this encounter (statuses as of 11/15/2019) Immunizations Name Administration Dates Next Due Pneumococcal [...] Comments:quit 30 yrs ago, wh ile in [employer] for 4 years Alcohol Use Drinks/Week oz/Week [...] encounter Miscellaneous Notes * Telephone Encounter - Leisa Mack RPh - 11/15/2019 11:31 AM EDT Signed Prescriptions: Disp Refills glimepiride (AMARYL) 4 MG Tablet 180 Tab1 Sig: TAKE 2 TABLETS BYMOUTH EVERY DAY WITH FIRST MEAL OF THE DAY FOR DIABETESAuthorizing Provider: MONTY MARIAOrdermarilu User: LEISA MACK documented in this encounter Plan of Treatment Upcoming Encounters Date Type Specialty Care Team Description 04/27/2020 Office Visit Family Medicine Monty Maria MD [address] [place] [address] [phone] 06/21/2020 Office Visit Cardiology Azael Lozano MD [address] [place] [address] [phone] Health Maintenance Due Date Last Done Comments Zoster Vaccines (1 of 2) 1985 CKD GFR USE SMARTSET 65840 04/27/202010/26, 09/20/2019, 04/27/2019, Additional history exists CKD PHOS USE SMARTSET 58857 04/27/2020 04/27/2019, 1 05/20/2017 DIABETES-FOOT EXAM 04/27/2020 04/27/2019, 1 05/20/2017, 10/24/2016, Additional history exists DIABETES-HGBA1C EVERY 6 MONTHS 04/27/2020 10/27/2019, 01/12/2019, 03/20/2018, Additional history exists Yearly B-12 04/27/2020 04/27/2019, 05/01/2017 CKD HGB USE SMARTSET 06944 09/19/202009/19, 04/27/2019, 03/20/2018, Additional history exists COLONOSCOPY-EVERY [...] Documents on File Type Date Recorded Patient Hotel Or Motel Cleaning Supervisor Expl anation Advanced Directive 11/15/2008 12:00 [...] patient have Health Care Power of Hand Shaper? Yes, not currently available Full Code 09/15/2009 [...]
--- OUTSIDE RECORDS SUMMARY | 2023-02-21 02:48 | External Medical Summary | Summary of Care ---
Author Name Unknown Organization [place] [address] Care Team Providers Care Cruise Consultant Name Role Phone Monty Dumont MD Primary Care Provide r Reason for Visit * Reason Onset Date Comments Medication Refill 04/05/2020 Encounter Details Date Type Department Care Team Description 04/05/2020 Refill Cardiology, [facility] [address] [place] [address] Sushila Lozano MD [address] [place] [address] [phone] HTN, goal below 140/90 Allergies No Known [...] Reported on 10/27/2019 Ranolazine ER 1000 MG ZX66Xfvzxsejkdh:Ch est pain,Unstable angina (HCC) TAKE 1 TABLET [...] 90 Tab 3 04/05/2020 Active hydroCHLOROthiazid e (HYDRODIURIL) 12.5 MG TabletIndications: [...] Aortic root 4.4 cm 4.29.2009 echo at [facility]. HTN, goal below 130/80 [...] Markers for Patients with Cardiovascular Disease Project #[id number] PI: Francoise Tomlin MD Please call [phone] with study related questions INTERFACED RESULT 11/17/2008 10/17/2011 GENOMICS CARDIO RESEARCH OTHER*[id number] 200806/25/2016 Overview: Renamed Per Clinical Trials Billing Project. Study Titile: Genomic Markers for Patients with Cardiovascular Disease Project #[id number] PI: Francoise Tomlin MD Please call [phone] with study related questions CLASS I-II ANGINA [...] encounter Miscellaneous Notes * Telephone Encounter - uSshila Lozano MD - 04/05/2020 2:52 PM EST Signed Prescriptions: Disp Refills hydroCHLOROthiazide 12.5 MG Oral Tablet (H*90 Tab 3 Sig: Take 1 Tab by mouth daily. Authorizing Provider: SUSHILA LOZANO * Telephone Encounter - Aguilar Hanson RN - 04/05/2020 2:22 PM EST Pending Prescriptions: Disp Refills hydroCHLOROthiazide 12.5 MG Oral Tablet (*90 Tab 3 Sig: Take 1 Tab by [...] mellitus with stage 3 chronic kidney disease ([facility]) E11.22, N18.30 History of colon polyps Z86.010 Stable angina ([facility]) I20.8 Hypertensive kidney disease with stage [...] Laboratory Laboratory [facility] [address] [place] [address] [phone] 04/27/2020 Office Visit Family Medicine Monty Dumont MD [address] [place] [address] [phone] 06/21/2020 Office Visit Cardiology Sushila Lozano MD [address] [place] [address] [phone] Health Maintenance Due Date Last Done Comments Dexa Scan 1985 Zoster Vaccines (1 of 2) 1985 Influenza Vaccine (FLU shot) (#1) 2019 03/02/2019, 03/01/2018, 03/02/2017, Additional history exists CKD GFR USE SMARTSET 89005 04/27/202010/26, 09/20/2019, 04/27/2019, Additional history exists CKD PHOS USE SMARTSET 59052 04/27/2020 04/27/2019, 1 05/20/2017 DIABETES-FOOT EXAM 04/27/2020 04/27/2019, 1 05/20/2017, 10/24/2016, Additional history exists DIABETES-HGBA1C EVERY 6 MONTHS 04/27/2020 10/27/2019, 01/12/2019, 03/20/2018, Additional history exists Yearly B-12 04/27/2020 04/27/2019, 05/01/2017 CKD HGB USE SMARTSET 93861 09/19/202009/19, 04/27/2019, 03/20/2018, Additional history exists COLONOSCOPY-EVERY [...] Documents on File Type Date Recorded Patient Welfare Interviewer Expl anation Advanced Directive 11/15/2008 12:00 AM [...] the patient have Health Care Power of Electrical Instrument Maker? Yes, not currently available Full Code 09/15/2009 [...]
--- OUTSIDE RECORDS SUMMARY | 2023-02-21 02:48 | External Medical Summary | Summary of Care ---
Author Name Unknown Organization [place] [address] Care Team Providers Care Escort Patients Name Role Phone Monty Dumont MD Primary Care Provide r Reason for Visit * Reason Comments eRx-Medication Refill Encounter Details Date Type Department Care Team Description 03/06/2020 Refill Cardiology, [facility] [address] [place] [address] [place] Cullen, [address] [place] [address] [phone] Chronic coronary artery disease; Aortocoronary bypass status; HTN, goal below 140/90 Allergies No Known Active Allergiesdocumented as of this encounter (statuses as of 03/06/2020) Medications Medication Sig Dispensed Refills Start Date [...] 3 04/19/2019 Active Ranolazine ER 1000 MG QJ92Pqrofmxqfgu:Ch est pain,Unstable angina (HCC) TAKE 1 TABLET TWICE A DAY 180 Tab 4 06/11/2019 Active amLODIPine (NORVASC) 5 MG TabletIndications: HTN, [...] FOR DIABETES 180 Tab 1 11/15/2019 Active JANUVIA 50 MG Tablet TAKE 1 [...] EVERY DAY 180 Tab 1 03/06/2020 Active metoprolol succinate XL (TOPROL XL) 25 MG DE82Argazwuffxn:Ch ronic coronary artery disease,Aortocoron jovanna bypass status,HTN, goal below 140/90 TAKE 2 TABLETS BY MOUTH EVERY DAY 180 Tab 1 09/22/2019 0 Discontinued documented as of this encounter (statuses as of 03/06/2020) Active Problems Problem Noted Date Stable angina [...] as of this encounter (statuses as of 03/06/2020) Resolved Problems Problem Noted Date Resolved Date HTN, GOAL BELOW 140/80 01/06/2012 6 Overview: Per HTN Protocol #27. Unstable angina 11/23/2011 10/24/2016 Chest pain 11/22/2011 10/24/2016 NSTEMI (non-ST elevated myocardial infarction) 0 11/22/2011 12/30/2016 Acute coronary syndrome 09/15/2009 10/25/19 17 Enlarged aorta 09/15/2009 04/27/2019 Overview: Aortic root 4.4 cm 4.29.2009 echo at [facility]. HTN, goal below 130/80 06/14/2009 2 Overview: Per HTN Taxonomy. Type 2 diabetes mellitus wit h hemoglobin A1c goal of less than 7.0% 03/02/2009 03/27/2011 Overview: Modified per Diabetes protocol #14. ICD-10 update of inactive term EXAMINATION OF PARTICIPANT IN CLINICAL TRIAL-gen omics 11/17/2008 09/01/2009 Overview: Renamed Per Clinical Trials Billing Project. Study Titile: Genomic Markers for Patients with Cardiovascular Disease Project #[id number] PI: Francoise Tomlin MD Please call [phone] with study related questions INTERFACED RESULT 11/17/2008 10/17/2011 GENOMICS CARDIO RESEARCH OTHER*[id number] 200806/25/2016 Overview: Renamed Per Clinical Trials Billing Project. Study Titile: Genomic Markers for Patients with Cardiovascular Disease Project #[id number] PI: Francoise Tomlin MD Please call [phone] with study related questions CLASS I-II ANGINA [...] as of this encounter (statuses as of 03/06/2020) Immunizations Name Administration Dates Next Due Pneumococcal [...] Telephone Encounter - Sushila Lozano MD - 03/06/2020 8:48 AM EDT Signed Prescriptions: Disp Refills Metoprolol Succinate ER 25 MG Oral Tablet *180 Tab1 Sig: TAKE 2 TABLETS BY MOUTH EVERY DAY Authorizing Provider: SUSHILA LOZANO * Telephone Encounter - Aguilar Hanson RN - 03/06/2020 7:46 AM EDT Pending Prescriptions: Disp Refills Metoprolol Succinate ER 25 MG Oral Tablet*180 Tab1 Sig: TAKE 2 TABLETS BY MOUTH EVERY DAY * Telephone Encounter - Aguilar Hanson RN - 03/06/2020 7:45 AM EDT Pending Prescriptions: Disp Refills Metoprolol Succinate ER 25 MG Oral Tablet*180 Tab1 Sig: TAKE 2 TABLETS BY MOUTH EVERY DAY Last Office/Telemedicine Visit: 09/17/2019 Next Office Visit: 06/21/2020 Scheduled Provider(s): Sushila Lozano MD Last medication order date: 09/22/2019 Have you choosen a preferred pharm?? 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 Dyslipidemia, goal LDL below 70 E78.5 S/P angioplasty with stent Z95.820 DM type 2, goal A1C to be determined ([facility]) E11.9 HTN, goal below 140/90 I10 Diabetes mellitus with stage 3 chronic kidney disease ([facility]) E11.22, N18.30 History of colon polyps Z86.010 Hypertensive kidney disease with chronic kidney disease stage III I12.9, N18.30 Stable angina ([facility]) I20.8 Labs: CREATININE(mg/dL) Frida Dt/Tm Resulted Value Status [...] Laboratory Laboratory [facility] [address] [place] [address] [phone] 04/27/2020 Office Visit Family Medicine Monty Dumont MD [address] [place] [address] [phone] 06/21/2020 Office Visit Cardiology Sushila Lozano MD [address] [place] [address] [phone] Health Maintenance Due Date Last Done Comments Zoster Vaccines (1 of 2) 1985 Influenza Vaccine (FLU shot) (#1) 2019 03/02/2019, 03/01/2018, 03/02/2017, Additional history exists CKD GFR USE SMARTSET 98995 04/27/202010/26, 09/20/2019, 04/27/2019, Additional history exists CKD PHOS USE SMARTSET 15331 04/27/2020 04/27/2019, 1 05/20/2017 DIABETES-FOOT EXAM 04/27/2020 04/27/2019, 1 05/20/2017, 10/24/2016, Additional history exists DIABETES-HGBA1C EVERY 6 MONTHS 04/27/2020 10/27/2019, 01/12/2019, 03/20/2018, Additional history exists Yearly B-12 04/27/2020 04/27/2019, 05/01/2017 CKD HGB USE SMARTSET 06074 09/19/202009/19, 04/27/2019, 03/20/2018, Additional history exists COLONOSCOPY-EVERY [...] Coronary atherosclerosis of unspecified type of vessel, [place] or graft Aortocoronary bypass status Postsurgical aortocoronary bypass status HTN, goal below 140/90 Unspecified essential hypertension documented in this encounter Advance Directives Documents on File Type Date Recorded Patient Technical Staff Assistant Expl anation Advanced Directive 11/15/2008 12:00 [...] the patient have Health Care Power of Shake Feeder? Yes, not currently available Full Code 09/15/2009 [...]
--- OUTSIDE RECORDS SUMMARY | 2023-02-21 02:48 | External Medical Summary | Summary of Care ---
Author Name Unknown Organization [place] [address] Care Team Providers Care Condenser Operator Name Role Phone Monty Dumont MD Primary Care Provide r Reason for Visit * Reason Onset Date Comments Medication Refill 04/05/2020 Encounter Details Date Type Department Care Team Description 04/05/2020 Refill Cardiology, [facility] [address] [place] [address] Sushila Lozano MD [address] [place] [address] [phone] HTN, goal below 140/90 Allergies No Known [...] 3 04/19/2019 Active Ranolazine ER 1000 MG TG33Fqcivbchagj:Ch est pain,Unstable angina (HCC) TAKE 1 TABLET [...] root 4.4 cm 4.29.2009 echo at [facility]. HTN, goal below 130/80 06/14/2009 2 Overview: Per HTN Taxonomy. Type 2 diabetes mellitus wit h hemoglobin A1c goal of less than 7.0% 03/02/2009 03/27/2011 Overview: Modified per Diabetes protocol #14. ICD-10 update of inactive term EXAMINATION OF PARTICIPANT IN CLINICAL TRIAL-gen omics 11/17/2008 09/01/2009 Overview: Renamed Per Clinical Trials Billing Project. Study Titile: Genomic Markers for Patients with Cardiovascular Disease Project #[id number] PI: Francoise Tomlin MD Please call [phone] with study related questions INTERFACED RESULT 11/17/2008 10/17/2011 GENOMICS CARDIO RESEARCH OTHER*[id number] 200806/25/2016 Overview: Renamed Per Clinical Trials Billing Project. Study Titile: Genomic Markers for Patients with Cardiovascular Disease Project #[id number] PI: Francoise Tomlin MD Please call [phone] with study related questions CLASS I-II ANGINA [...] A1C to be determined ([facility]) E11.9 HTN, goal below 140/90 I10 Diabetes mellitus with stage 3 chronic kidney disease ([facility]) E11.22, N18.30 History of colon polyps Z86.010 Stable angina ([facility]) I20.8 Hypertensive kidney disease with [...] Laboratory Laboratory Celia Najera [address] [place] [address] [phone] 04/27/2020 Office Visit Family Medicine Monty Dumont MD [address] [place] [address] [phone] 06/21/2020 Office Visit Cardiology Sushila Lozano MD [address] [place] [address] [phone] Health Maintenance Due Date Last Done Comments Dexa Scan 1985 Zoster Vaccines (1 of 2) 1985 Influenza Vaccine (FLU shot) (#1) 2019 03/02/2019, 03/01/2018, 03/02/2017, Additional history exists CKD GFR USE SMARTSET 17405 04/27/202010/26, 09/20/2019, 04/27/2019, Additional history exists CKD PHOS USE SMARTSET 41791 04/27/2020 04/27/2019, 1 05/20/2017 DIABETES-FOOT EXAM 04/27/2020 04/27/2019, 1 05/20/2017, 10/24/2016, Additional history exists DIABETES-HGBA1C EVERY 6 MONTHS 04/27/2020 10/27/2019, 01/12/2019, 03/20/2018, Additional history exists Yearly B-12 04/27/2020 04/27/2019, 05/01/2017 CKD HGB USE SMARTSET 43615 09/19/202009/19, 04/27/2019, 03/20/2018, Additional history exists COLONOSCOPY-EVERY [...] Documents on File Type Date Recorded Patient Complaint Clerk Expl anation Advanced Directive 11/15/2008 12:00 AM [...] patient have Health Care Power of Sole Skiver? Yes, not currently available Full Code 09/15/2009 [...]
--- OUTSIDE RECORDS SUMMARY | 2023-02-21 02:48 | External Medical Summary | Summary of Care ---
Author Name Unknown Organization [place] [address] Care Team Providers Care Lining Mechanic Name Role Phone Monty Maria MD Primary Care Provide r Reason for Visit * Reason Comments eRx-Medication Refill Encounter Details Date Type Department Care Team Description 12/14/2019 Refill Family Practice [facility] [address] [facility] [place] [address] Monty Maria MD [address] [place] [address] [phone] Allergies No Known Allergiesdocumented as of this encounter (statuses as of 12/15/2019) Medications Medication Sig Dispensed Refills Start Date End Date Status ONE TOUCH ULTRA DEVIIndications:DM type 2, not at goal ([facility]) check daily 1 0 12/11/2005 Active ONE TOUCH ULTRA CONTROL SOLNIndications:DM type 2, not at goal (HCC) check daily 1 11 12/11/2005 Active ONE TOUCH ULTRA TEST STRPIndications:DM type 2, not at goal (HCC) test daily 1 box 11 12/11/2005 Active ONE TOUCH ULTRASOFT LANCETS MISCIndications:DM type 2, not at goal ([facility]) test daily 1 box 11 12/11/2005 Active [...] 3 04/19/2019 Active Ranolazine ER 1000 MG [id number]:Ch est pain,Unstable angina (HCC) TAKE 1 TABLET TWICE A DAY 180 Tab 4 06/11/2019 Active Isosorbide Mononitrate ER 120 MG TB24 Take 1 Tab by mouth daily. In the morning. 90 Tab 1 08/13/2019 Active metoprolol succinate XL (TOPROL XL) 25 MG [id number]:Ch ronic coronary artery disease,Aortocoron jovanna bypass status,HTN, [...] TABLET DAILY 90 Tab 3 12/15/2019 Active SITagliptin (JANUVIA) 50 MG Tablet Take 1 Tab by mouth daily. 90 Tab 1 07/05/2019 0 Discontinued documented as of this encounter (statuses as of 12/15/2019) Active Problems Problem Noted Date Stable angina [...] as of this encounter (statuses as of 12/15/2019) Resolved Problems Problem Noted Date Resolved Date [...] Markers for Patients with Cardiovascular Disease Project #[id number] PI: Francoise Tomlin MD Please call [phone] with study related questions INTERFACED RESULT 11/17/2008 10/17/2011 GENOMICS CARDIO RESEARCH OTHER*[id number] 200806/25/2016 Overview: Renamed Per Clinical Trials Billing Project. Study Titile: Genomic Markers for Patients with Cardiovascular Disease Project #[id number] PI: Francoise Tomlin MD Please call [phone] with study related questions CLASS I-II ANGINA [...] as of this encounter (statuses as of 12/15/2019) Immunizations Name Administration Dates Next Due Pneumococcal [...] Comments:quit 30 yrs ago, wh ile [place] for 4 years Alcohol Use Drinks/Week oz/Week [...] encounter Miscellaneous Notes * Telephone Encounter - Cain Batista RPh - 12/15/2019 9:59 AM EDT Signed Prescriptions: Disp Refills JANUVIA 50 MG Tablet 90 Tab 3 Sig: TAKE 1 TABLET DAILYAuthorizing Provider: MONTY MARIAOrdermarilu User: CAIN BATISTA documented in this encounter Plan of Treatment Upcoming Encounters Date Type Specialty Care Team Description 04/18/2020 Laboratory Laboratory Celia Najera [address] [place] [address] [phone] 04/27/2020 Office Visit Family Medicine Monty Maria MD [address] [place] [address] [phone] 06/21/2020 Office Visit Cardiology Azael Lozano MD [address] [place] [address] [phone] Health Maintenance Due Date Last Done Comments Zoster Vaccines (1 of 2) 1985 Influenza Vaccine (FLU shot) (#1) 2020 03/02/2019, 03/01/2018, 03/02/2017, Additional history exists CKD GFR USE SMARTSET 78319 04/27/202010/26, 09/20/2019, 04/27/2019, Additional history exists CKD PHOS USE SMARTSET 51273 04/27/2020 04/27/2019, 1 05/20/2017 DIABETES-FOOT EXAM 04/27/2020 04/27/2019, 1 05/20/2017, 10/24/2016, Additional history exists DIABETES-HGBA1C EVERY 6 MONTHS 04/27/2020 10/27/2019, 01/12/2019, 03/20/2018, Additional history exists Yearly B-12 04/27/2020 04/27/2019, 05/01/2017 CKD HGB USE SMARTSET 65629 09/19/202009/19, 04/27/2019, 03/20/2018, Additional history exists COLONOSCOPY-EVERY [...] Documents on File Type Date Recorded Patient Photographic Process Worker Expl anation Advanced Directive 11/15/2008 12:00 AM [...] the patient have Health Care Power of Microbiology Lab Manager? Yes, not currently available Full Code [...]
--- OUTSIDE RECORDS SUMMARY | 2023-02-21 02:48 | External Medical Summary | Summary of Care ---
Author Name Unknown Organization [place] [address] Care Team Providers Care Digital Computer Operator Name Role Phone oMnty Dumont MD Primary Care Provide r Reason for Visit * Reason Comments Test Results Encounter Details Date Type Department Care Team Description 10/28/2019 Telephone Family Practice [facility] 132 [facility] [place] [address] Monty Dum[facility] [address] [facility] [address] [phone] Test Results Allergies No Known Allergiesdocumented as of this encounter (statuses as of 10/29/2019) Medications Medication Sig Dispensed Refills Start Date End Date Status ONE TOUCH ULTRA DEVIIndications:DM type 2, not at goal ([facility]) check daily 1 0 12/11/2005 Active ONE TOUCH ULTRA CONTROL SOLNIndications:DM type 2, not at goal (HCC) check daily 1 11 12/11/2005 Active ONE TOUCH ULTRA TEST STRPIndications:DM type 2, not at goal (HCC) test daily 1 box 11 12/11/2005 Active ONE TOUCH ULTRASOFT LANCETS MISCIndications:DM type 2, not at goal ([facility]) test daily 1 box 11 12/11/2005 [...] 3 04/19/2019 Active Ranolazine ER 1000 MG HX48Zslwnnzjjqr:Ch est pain,Unstable angina (HCC) TAKE 1 TABLET TWICE A DAY 180 Tab 4 06/11/2019 Active glimepiride (AMARYL) 4 MG Tablet TAKE 2 TABLETS BY MOUTH EVERY DAY WITH FIRST MEAL OF THE DAY FOR DIABETES 180 Tab 1 06/14/2019 Active SITagliptin (JANUVIA) 50 MG Tablet Take 1 Tab by mouth daily. 90 Tab 1 07/05/2019 Active Isosorbide Mononitrate ER 120 MG TB24 Take 1 Tab by mouth daily. In the morning. 90 Tab 1 08/13/2019 Active metoprolol succinate XL (TOPROL XL) 25 MG RW78Zgqyqcaktkc:Ch ronic coronary artery disease,Aortocoron jovanna bypass status,HTN, goal below 140/90 TAKE 2 TABLETS BY MOUTH EVERY DAY 180 Tab 1 09/22/2019 Active amLODIPine (NORVASC) 5 MG TabletIndications: HTN, goal below 130/80 TAKE 1 TABLET BY MOUTH EVERY DAY 90 Tab 1 10/12/2019 Active metFORMIN (GLUCOPHAGE) 500 MG Tablet Take 1 Tab by mouth daily with breakfast. 30 Tab 5 10/28/2019 Active metFORMIN (GLUCOPHAGE) 850 MG TabletIndications: DM type 2, goal A1C to be determined (HCC) Take 1 Tab by mouth 3 times a day. 90 Tab 5 06/14/2019 10/28/2019 Discontinue d(Medicatio n/Dose Changed) documented as of this encounter (statuses as of 10/29/2019) Active Problems Problem Noted Date Stable angina [...] as of this encounter (statuses as of 10/29/2019) Resolved Problems Problem Noted Date Resolved Date HTN, GOAL BELOW 140/80 01/06/2012 6 Overview: Per HTN Protocol #27. Unstable angina 11/23/2011 10/24/2016 Chest pain 11/22/2011 10/24/2016 NSTEMI (non-ST elevated myocardial infarction) 0 11/22/2011 12/30/2016 Acute coronary syndrome 09/15/2009 10/25/19 17 Enlarged aorta 09/15/2009 04/27/2019 Overview: Aortic root 4.4 cm 4.29.2009 echo at [facility]. HTN, goal below 130/80 06/14/2009 2 Overview: Per HTN Taxonomy. Type 2 diabetes mellitus wit h hemoglobin A1c goal of less than 7.0% 03/02/2009 03/27/2011 Overview: Modified per Diabetes protocol #14. ICD-10 update of inactive term EXAMINATION OF PARTICIPANT IN CLINICAL TRIAL-gen omics 11/17/2008 09/01/2009 Overview: Renamed Per Clinical Trials Billing Project. Study Titile: Genomic Markers for Patients with Cardiovascular Disease Project #[id number] PI: Francoise Tomlin MD Please call [phone] with study related questions INTERFACED RESULT 11/17/2008 10/17/2011 GENOMICS CARDIO RESEARCH OTHER*[id number] 200806/25/2016 Overview: Renamed Per Clinical Trials Billing Project. Study Titile: Genomic Markers for Patients with Cardiovascular Disease Project #[id number] PI: Francoise Tomlin MD Please call [phone] with study related questions CLASS I-II ANGINA [...] as of this encounter (statuses as of 10/29/2019) Immunizations Name Administration Dates Next Due Pneumococcal [...] Comments:quit 30 yrs ago, wh ile in [employer] for 4 years Alcohol Use Drinks/Week oz/Week [...] encounter Miscellaneous Notes * Telephone Encounter - Maria M Bañuelos LPN - 10/29/2019 9:08 AM EDT Patient aware and verbalized understanding, will comply * Telephone Encounter - Gina Bloom OSA - 10/29/2019 9:06 AM EDT Reason for patient's call: returning phone call to speak with a nurse Caller was transferred to Maria M at the nurse line. * Telephone Encounter - Elise Gonzalez LPN - 10/28/2019 5:09 PM EDT Left message to return call tomorrow to discuss changes. * Telephone Encounter - Monty Dumont MD - 10/28/2019 5:02 PM EDT Nursing, please call and inform pt. Labs looked good except renal function is wors We need to decrease metfomrin to 500 mg once daily Rx to [facility] documented in this encounter Plan of Treatment Upcoming Encounters Date Type Specialty Care Team Description 04/27/2020 Office Visit Family Medicine Monty Dumont MD [address] [place] [address] [phone] 06/21/2020 Office Visit Cardiology Azael Lozano MD [address] [place] [address] [phone] Health Maintenance Due Date Last Done Comments Zoster Vaccines (1 of 2) 1985 CKD GFR USE SMARTSET 78900 04/27/202010/26, 09/20/2019, 04/27/2019, Additional history exists CKD PHOS USE SMARTSET 68116 04/27/2020 04/27/2019, 1 05/20/2017 DIABETES-FOOT EXAM 04/27/2020 04/27/2019, 1 05/20/2017, 10/24/2016, Additional history exists DIABETES-HGBA1C EVERY 6 MONTHS 04/27/2020 10/27/2019, 01/12/2019, 03/20/2018, Additional history exists Yearly B-12 04/27/2020 04/27/2019, 05/01/2017 CKD HGB USE SMARTSET 47806 09/19/202009/19, 04/27/2019, 03/20/2018, Additional history exists COLONOSCOPY-EVERY [...] Documents on File Type Date Recorded Patient Glacing Machine Tender Expl anation Advanced Directive 11/15/2008 12:00 AM [...] the patient have Health Care Power of Commercial Artist Lettering? Yes, not currently available Full Code 09/15/2009 [...]
--- OUTSIDE RECORDS SUMMARY | 2023-02-21 02:48 | External Medical Summary | Summary of Care ---
Author [place] [address] Care Team Providers Care Rehabilitation Counsellor Name Role Phone Monty Dumont MD Primary Care Provide r Reason for Visit * Reason Onset Date Comments Medication Question 03/06/2020 Encounter Details Date Type Department Care Team Description 03/06/2020 Telephone Pharmacy, [facility] [address] [facility] [place] [id number] [facility] [address] [place], [place] [id number] Medication Question Allergies No Known Active Allergiesdocumented as of this encounter (statuses as of 03/10/2020) Medications Medication Sig Dispensed Refills Start Date End Date Status ONE TOUCH ULTRA DEVIIndications:DM type 2, not at goal ([facility]) check daily 1 0 12/11/2005 Active ONE TOUCH ULTRA CONTROL SOLNIndications:DM type 2, not at goal ([facility]) check daily 1 11 12/11/2005 Active ONE TOUCH ULTRA TEST STRPIndications:DM type 2, not at goal ([facility]) test daily 1 box 11 12/11/2005 Active ONE TOUCH ULTRASOFT LANCETS MISCIndications:DM type 2, not at goal ([facility]) test daily 1 box 11 12/11/2005 Active [...] 3 04/19/2019 Active Ranolazine ER 1000 MG [id number]:Ch est pain,Unstable angina (HCC) TAKE 1 TABLET [...] a day. 180 Tab 3 03/06/2020 Active glimepiride (AMARYL) 4 MG Tablet TAKE 2 TABLETS BY MOUTH EVERY DAY WITH FIRST MEAL OF THE DAY FOR DIABETES 180 Tab 1 11/15/2019 0 Discontinued documented as of this encounter (statuses as of 03/10/2020) Active Problems Problem Noted Date Stable angina [...] as of this encounter (statuses as of 03/10/2020) Resolved Problems Problem Noted Date Resolved Date HTN, GOAL BELOW 140/80 01/06/2012 6 Overview: Per HTN Protocol #27. Unstable angina 11/23/2011 10/24/2016 Chest pain 11/22/2011 10/24/2016 NSTEMI (non-ST elevated myocardial infarction) 0 11/22/2011 12/30/2016 Acute coronary syndrome 09/15/2009 10/25/19 17 Enlarged aorta 09/15/2009 04/27/2019 Overview: Aortic root 4.4 cm 4.29.2009 echo at [facility]. HTN, goal below 130/80 06/14/2009 [...] Markers for Patients with Cardiovascular Disease Project #[id number] PI: Francoise Tomlin MD Please call [phone] with study related questions INTERFACED RESULT 11/17/2008 10/17/2011 GENOMICS CARDIO RESEARCH OTHER*[id number] 200806/25/2016 Overview: Renamed Per Clinical Trials Billing Project. Study Titile: Genomic Markers for Patients with Cardiovascular Disease Project #[id number] PI: Francoise Tomlin MD Please call [phone] with study related questions CLASS I-II ANGINA [...] as of this encounter (statuses as of 03/10/2020) Immunizations Name Administration Dates Next Due Pneumococcal [...] Comments:quit 30 yrs ago, wh ile in [place] for 4 years Alcohol Use Drinks/Week oz/Week [...] encounter Miscellaneous Notes * Telephone Encounter - Ruby Rivas LPN - 03/10/2020 4:18 PM EDT Pt aware and verbalized understanding. * Telephone Encounter - Elise Romero OSA - 03/10/2020 4:14 PM EDT Reason for patient's call: returning call for medication instructions Caller was transferred to Ruby at the nurse line. * Telephone Encounter - Leny Buckner LPN - 03/06/2020 1:46 PM EDT Called pt, let message for a return call * Telephone Encounter - Monty Dumont MD - 03/06/2020 1:20 PM EDT Nursing, please call and inform pt. Please call pt We need to stop glimeride Start glipizide instead. * Telephone Encounter - Crystal Zavala RPh - 03/06/2020 11:05 AM EDT [place], Patient was identified as being on glimepiride, which is considered a high risk medication by Medicare. Next year, Medicare will be reducing reimbursement levels for patients who are continued on high risk medications. Therefore, we are trying to rotate these patients to a preferred alternative to avoid this outcome. The preferred alternative for this medication is Glipzide XL 5 mg BID. I pended this medication if you would like to change it or discuss with patient. Thank you, Crystal documented in this encounter Plan of Treatment Upcoming Encounters Date Type Specialty Care Team Description 04/18/2020 Laboratory Laboratory [facility] [address] [place] [address] [phone] 04/27/2020 Office Visit Family Medicine Monty Dumont MD [address] [place] [address] 06/21/2020 Office Visit Cardiology Azael Lozano MD [address] [place] [address] [phone] Health Maintenance Due Date Last Done Comments Zoster Vaccines (1 of 2) 1985 Influenza Vaccine (FLU shot) (#1) 2019 03/02/2019, 03/01/2018, 03/02/2017, Additional history exists CKD GFR USE SMARTSET 73251 04/27/202010/26, 09/20/2019, 04/27/2019, Additional history exists CKD PHOS USE SMARTSET 97564 04/27/2020 04/27/2019, 1 05/20/2017 DIABETES-FOOT EXAM 04/27/2020 04/27/2019, 1 05/20/2017, 10/24/2016, Additional history exists DIABETES-HGBA1C EVERY 6 MONTHS 04/27/2020 10/27/2019, 01/12/2019, 03/20/2018, Additional history exists Yearly B-12 04/27/2020 04/27/2019, 05/01/2017 CKD HGB USE SMARTSET 37064 09/19/202009/19, 04/27/2019, 03/20/2018, Additional history exists COLONOSCOPY-EVERY [...] Documents on File Type Date Recorded Patient Racket Stringer Expl anation Advanced Directive 11/15/2008 12:00 AM [...] the patient have Health Care Power of Wood Sash And Frame Carpenter? Yes, not currently available Full Code 09/15/2009 [...]
--- OUTSIDE RECORDS SUMMARY | 2023-02-21 02:48 | External Medical Summary ---
Author Name Unknown Address [address] [facility] [place] [address] Phone Organization K0G[place] Stephanie Najera [address] [facility] [place] [address] Laboratory Report Ordering Provider Test Date Status CROW MERRILL 10/27/2019 09:03:00 Final Observation Date Value Abnormality Reference (Units ) Status BUN 10/27/2019 10:24 33 Above high normal 6-20 (mg/dL) Final Creatinine 10/27/2019 10:24 1.7 Above high normal 0.6- 1.2 (mg/dL) Final E Glom Filt Rate 10/27/2019 10:24 36.5 Below low normal >60 Final Performing Location [facility] Stephanie Najera [address] [facility] [place] [address]
--- OUTSIDE RECORDS SUMMARY | 2023-02-21 02:48 | External Medical Summary ---
Author Name Unknown Address [address] [place] [address] Phone Organization K01:[facility] [id number] Laboratory Report Ordering Provider Test Date Status CROW MERRILL 10/27/2019 09:03:00 Final Observation Date Value Abnormality Reference (Units ) Status HbA1C 10/27/2019 14:30 6.4 Above high normal 4.0-5 .6 (%) Final Performing Location [place] [id number]
--- OUTSIDE RECORDS SUMMARY | 2023-02-21 02:48 | External Medical Summary | Summary of Care ---
Author Name Unknown Organization [place] [address] Care Team Providers Care Procurement Analyst Name Role Phone Monty Dumont MD Primary Care Provide r Reason for Visit * Reason Comments eRx-Medication Refill Encounter Details Date Type Department Care Team Description 10/11/2019 Refill Cardiology, [facility] [address] [facility] [place] [address] Azael Lozano MD 132 [place] [address] [phone] HTN, goal below 130/80 Allergies No Known Allergiesdocumented as of this encounter (statuses as of 10/12/2019) Medications Medication Sig Dispensed Refills Start Date End Date Status ONE TOUCH ULTRA DEVIIndications:DM type 2, not at goal (HCC) check daily 1 0 12/11/2005 Active ONE TOUCH ULTRA CONTROL SOLNIndications:DM type 2, not at goal (HCC) check daily 1 11 12/11/2005 Active ONE TOUCH ULTRA TEST STRPIndications:DM type 2, not at goal ([facility]) test daily 1 box 11 12/11/2005 Active ONE TOUCH ULTRASOFT LANCETS MISCIndications:DM type 2, not at goal ([facility]) test daily 1 box 11 [...] 3 04/19/2019 Active Ranolazine ER 1000 MG YM24Beqmtbjrfxs:Ch est pain,Unstable angina (HCC) TAKE 1 TABLET [...] metoprolol succinate XL (TOPROL XL) 25 MG IX24Djvhjcwvgwc:Ch ronic coronary artery disease,Aortocoron jovanna bypass status,HTN, goal below 140/90 TAKE 2 TABLETS BY MOUTH EVERY DAY 180 Tab 1 09/22/2019 Active amLODIPine (NORVASC) 5 MG TabletIndications: HTN, goal below 130/80 TAKE 1 TABLET BY MOUTH EVERY DAY 90 Tab 1 10/12/2019 Active amLODIPine (NORVASC) 5 MG TabletIndications: HTN, goal below 130/80 Take 1 Tab by mouth daily. 90 Tab 1 04/26/2019 10/12/2019 Discontinued documented as of this encounter (statuses as of 10/12/2019) Active Problems Problem Noted Date Hypertensive kidney [...] as of this encounter (statuses as of 10/12/2019) Resolved Problems Problem Noted Date Resolved Date HTN, GOAL BELOW 140/80 01/06/2012 6 Overview: Per HTN Protocol #27. Unstable angina 11/23/2011 10/24/2016 Chest pain 11/22/2011 10/24/2016 NSTEMI (non-ST elevated myocardial infarction) 0 11/22/2011 12/30/2016 Acute coronary syndrome 09/15/2009 10/25/19 17 Enlarged aorta 09/15/2009 04/27/2019 Overview: Aortic root 4.4 cm 4.29.2009 echo at [facility]. HTN, goal below 130/80 06/14/2009 [...] Markers for Patients with Cardiovascular Disease Project #[id number] PI: Francoise Tomlin MD Please call [phone] with study related questions INTERFACED RESULT 11/17/2008 10/17/2011 GENOMICS CARDIO RESEARCH OTHER*[id number] 200806/25/2016 Overview: Renamed Per Clinical Trials Billing Project. Study Titile: Genomic Markers for Patients with Cardiovascular Disease Project #[id number] PI: Francoise Tomlin MD Please call [phone] with study related questions CLASS I-II ANGINA [...] as of this encounter (statuses as of 10/12/2019) Immunizations Name Administration Dates Next Due Pneumococcal [...] encounter Miscellaneous Notes * Telephone Encounter - Zeenat Beltran Jr., DO - 10/12/2019 10:51 AM EDT Signed Prescriptions: Disp Refills amLODIPine (NORVASC) 5 MG Tablet 90 Tab 1 Sig: TAKE 1 TABLET BY MOUTH EVERY DAY Authorizing Provider: ZEENAT BELTRAN JR * Telephone Encounter - Aguilar Hanson RN - 10/12/2019 8:01 AM EDT Pending Prescriptions: Disp Refills amLODIPine (NORVASC) 5 MG Tablet [Pharmac*90 Tab 1 Sig: TAKE 1 TABLET BY MOUTH EVERY DAY * Telephone Encounter - Aguilar Hanson RN - 10/12/2019 8:00 AM EDT Pending Prescriptions: Disp Refills amLODIPine (NORVASC) 5 MG Tablet [Pharmac*90 Tab 1 Sig: TAKE 1 TABLET BY MOUTH EVERY DAY Last Office/Telemedicine Visit: 09/17/2019 Next Office Visit: 06/21/2020 Scheduled Provider(s): Azael Lozano MD Last medication order date04/26/2019 Have you choosen a preferred pharm?? 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 Dyslipidemia, goal LDL below 70 E78.5 S/P angioplasty with stent Z95.820 DM type 2, goal A1C to be determined ([facility]) E11.9 HTN, goal below 140/90 I10 Diabetes mellitus with stage 3 chronic kidney disease ([facility]) E11.22, N18.3 History of colon polyps Z86.010 Hypertensive kidney disease with chronic kidney disease stage III ([facility]) I12.9, N18.3 Labs: CREATININE(mg/dL) Frida Dt/Tm Resulted Value Status 09/20/19 4:21P 09/20/19 1.6* FINAL POTASSIUM(mmol/L) Frida Dt/Tm Resulted Value Status 09/20/19 4:21P 09/20/19 4.7 FINAL TSH(uIU/mL) Frida Dt/Tm Resulted Value Status 01/01/17 1:44P 01/01/17 2.81 FINAL LDL (DIRECT MEASURE)(mg/dL) Frida Dt/Tm Resulted Value Status 10/24/16 11:50A 10/24/16 50 FINAL 02/20/15 3:38P 02/21/15 48 FINAL ALT(U/L) Frida Dt/Tm Resulted Value Status 04/27/19 9:54A 04/27/19 19 FINAL Hemoglobin AIC Results: HEMOGLOBIN, A1C(%) Frida Dt/Tm Resulted Value Status 01/12/19 2:01P 01/12/19 6.5* FINAL 03/20/18 9:15A 03/20/18 7.0* FINAL 05/01/17 2:43P 05/01/17 7.4* FINAL documented in this encounter Plan of Treatment Upcoming Encounters Date Type Specialty Care Team Description 10/27/2019 Office Visit Family Medicine Monty Dumont MD [address] [place] [address] [phone] 06/21/2020 Office Visit Cardiology Azael Lozano MD [address] [place] [address] [phone] Health Maintenance Due Date Last Done Comments Zoster Vaccines (1 of 2) 1985 DIABETES-HGBA1C EVERY 6 MONTHS 07/15/2019 01/12/2019, 03/20/2018, 05/01/2017, Additional history exists CKD GFR USE SMARTSET 58331 03/22/202009/19, 04/27/2019, 03/20/2018, Additional history exists CKD PHOS USE SMARTSET 19276 04/27/2020 04/27/2019, 1 05/20/2017 DIABETES-FOOT EXAM 04/27/2020 04/27/2019, 1 05/20/2017, 10/24/2016, Additional history exists Yearly B-12 04/27/2020 04/27/2019, 05/01/2017 CKD HGB USE SMARTSET 38610 09/19/202009/19, 04/27/2019, 03/20/2018, Additional history exists COLONOSCOPY-EVERY [...] Documents on File Type Date Recorded Patient Filter Tank Tender Expl anation Advanced Directive 11/15/2008 12:00 [...] the patient have Health Care Power of Salon Shampoo Assistant? Yes, not currently available Full Code [...]
--- OUTSIDE RECORDS SUMMARY | 2023-02-21 02:48 | External Medical Summary | Summary of Care ---
Author Name Unknown Organization [place] [address] Care Team Providers Care Pastrycook Name Role Phone Monty Dumont MD Primary Care Provide r Reason for Visit * Reason Comments Medication Refill Encounter Details Date Type Department Care Team Description 01/26/2020 Refill Family Practice [facility] [address] [facility] [place] [address] Monty Dumont MD [address] [place] [address] [phone] Aortocoronary bypass status; Acute coronary syndrome (HCC); Chronic coronary artery disease; Enlarged aorta (HCC) Allergies No Known Allergiesdocumented as of this encounter (statuses as of 01/26/2020) Medications Medication Sig Dispensed Refills Start Date [...] 3 04/19/2019 Active Ranolazine ER 1000 MG [id number]:Ch est pain,Unstable angina (HCC) TAKE 1 TABLET TWICE A DAY 180 Tab 4 06/11/2019 Active Isosorbide Mononitrate ER 120 MG TB24 Take 1 Tab by mouth daily. In the morning. 90 Tab 1 08/13/2019 Active metoprolol succinate XL (TOPROL XL) 25 MG [id number]:Ch ronic coronary artery disease,Aortocoron jovanna bypass status,HTN, [...] mouth daily. 100 Tab 1 01/26/2020 Active clopidogrel (PLAVIX) 75 MG TabletIndications: Aortocoronary bypass status,Acute coronary syndrome (HCC),Chronic coronary artery disease,Enlarged aorta (HCC) Take 1 Tab by mouth daily. 100 Tab 1 01/15/2019 01/26/2020 Discontinue d(Refill) documented as of this encounter (statuses as of 01/26/2020) Active Problems Problem Noted Date Stable angina [...] as of this encounter (statuses as of 01/26/2020) Resolved Problems Problem Noted Date Resolved Date HTN, GOAL BELOW 140/80 01/06/2012 6 Overview: Per HTN Protocol #27. Unstable angina 11/23/2011 10/24/2016 Chest pain 11/22/2011 10/24/2016 NSTEMI (non-ST elevated myocardial infarction) 0 11/22/2011 12/30/2016 Acute coronary syndrome 09/15/2009 10/25/19 17 Enlarged aorta 09/15/2009 04/27/2019 Overview: Aortic root 4.4 cm 4.29.2009 echo at [facility]. HTN, goal below 130/80 06/14/2009 [...] Markers for Patients with Cardiovascular Disease Project #[id number] PI: Francoise Tomlin MD Please call [phone] with study related questions INTERFACED RESULT 11/17/2008 10/17/2011 GENOMICS CARDIO RESEARCH OTHER*[id number] 200806/25/2016 Overview: Renamed Per Clinical Trials Billing Project. Study Titile: Genomic Markers for Patients with Cardiovascular Disease Project #[id number] PI: Francoise Tomlin MD Please call [phone] with study related questions CLASS I-II ANGINA [...] as of this encounter (statuses as of 01/26/2020) Immunizations Name Administration Dates Next Due Pneumococcal [...] file Travel History Travel Start Travel End documented as of this encounter Miscellaneous Notes * Telephone Encounter - Dajuan Lemus DO - 01/26/2020 4:33 PM EDT Signed Prescriptions: Disp Refills clopidogrel (PLAVIX) 75 MG Tablet 100 Tab1 Sig: Take 1 Tab by mouth daily. Authorizing Provider: DAJUAN LEMUS * Telephone Encounter - Annetta Valdivia OSA - 01/26/2020 1:53 PM EDT Pending Prescriptions: Disp Refills clopidogrel (PLAVIX) 75 MG Tablet 100 Tab1 Sig: Take 1 Tab by mouth daily. Last Office/Telemedicine Visit: 10/27/2019 Next Office Visit: 04/27/2020 Scheduled Provider(s): Monty Dumont MD If no future appointments scheduled, and last appointment is greater than a year ago, please schedule patient for a follow-up appointment Last date the medication was ordered: 01/15/19 Pharm[facility] [id number] [place] Is this request for a controlled substance?No Urine Drug Screen:No results found for this or any previous visit. Patient Phone Numbers Labs: Lab Results Component Value Date/Time CREAT 1.7 (H) 10/27/2019 09:03 AM POTASSIUM 5.1 10/27/2019 09:03 AM TSH 2.81 01/01/2017 01:44 PM LDLCALC 30 10/27/2019 09:03 AM LDLDIRECT 50 10/24/2016 11:50 AM ALT 20 10/27/2019 09:03 AM HGBA1C 6.4 (H) 10/27/2019 09:03 AM documented in this encounter Plan of Treatment Upcoming Encounters Date Type Specialty Care Team Description 04/18/2020 Laboratory Laboratory [facility]ia [facility] [address] [place] [address] [phone] 04/27/2020 Office Visit Family Medicine Monty Dumont MD [address] [place] [address] [phone] 06/21/2020 Office Visit Cardiology Azael Lozano MD [address] [place] [address] Health Maintenance Due Date Last Done Comments Zoster Vaccines (1 of 2) 1985 Influenza Vaccine (FLU shot) (#1) 2019 03/02/2019, 03/01/2018, 03/02/2017, Additional history exists CKD GFR USE SMARTSET 28664 04/27/202010/26, 09/20/2019, 04/27/2019, Additional history exists CKD PHOS USE SMARTSET 77149 04/27/2020 04/27/2019, 1 05/20/2017 DIABETES-FOOT EXAM 04/27/2020 04/27/2019, 1 05/20/2017, 10/24/2016, Additional history exists DIABETES-HGBA1C EVERY 6 MONTHS 04/27/2020 10/27/2019, 01/12/2019, 03/20/2018, Additional history exists Yearly B-12 04/27/2020 04/27/2019, 05/01/2017 CKD HGB USE SMARTSET 59123 09/19/202009/19, 04/27/2019, 03/20/2018, Additional history exists COLONOSCOPY-EVERY [...] Coronary atherosclerosis of unspecified type of vessel, [place] or graft Enlarged aorta (HCC) Other specified disorders of arteries and arterioles documented in this encounter Advance Directives Documents on File Type Date Recorded 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 Yes, not currently available Full Code [...]
--- OUTSIDE RECORDS SUMMARY | 2023-02-21 02:48 | External Medical Summary | Summary of Care ---
Author Name Unknown Organization [place] [address] Care Team Providers Care Sales Representative [employer] Name Role Phone Monty Maria MD Primary Care Provide r Reason for Visit * Reason Comments eRx-Medication Refill Encounter Details Date Type Department Care Team Description 01/28/2020 Refill Family Practice [facility] [address] [facility] [place] [address] Monty Maria MD 132 [place] [address] [phone] Allergies No Known Allergiesdocumented as of this encounter (statuses as of 01/28/2020) Medications Medication Sig Dispensed Refills Start Date End Date Status ONE TOUCH ULTRA DEVIIndications:DM type 2, not at goal ([facility]) check daily 1 0 12/11/2005 Active ONE TOUCH ULTRA CONTROL SOLNIndications:DM type 2, not at goal (HCC) check daily 1 12/11/2005 Active ONE TOUCH ULTRA TEST STRPIndications:DM type 2, not at goal (HCC) test daily 1 box 11 12/11/2005 Active ONE TOUCH ULTRASOFT LANCETS MISCIndications:DM type 2, not at goal ([facility]) test daily 1 box 11 [...] 3 04/19/2019 Active Ranolazine ER 1000 MG DN64Senhiahuxzo:Ch est pain,Unstable angina (HCC) TAKE 1 TABLET TWICE A DAY 180 Tab 4 06/11/2019 Active metoprolol succinate XL (TOPROL XL) 25 MG CR63Gxynuvrryfu:Ch ronic coronary artery disease,Aortocoron jovanna bypass status,HTN, [...] EVERY MORNING 90 Tab 1 01/28/2020 Active Isosorbide Mononitrate ER 120 MG TB24 Take 1 Tab by mouth daily. In the morning. 90 Tab 1 08/13/2019 0 Discontinued documented as of this encounter (statuses as of 01/28/2020) Active Problems Problem Noted Date Stable angina [...] as of this encounter (statuses as of 01/28/2020) Resolved Problems Problem Noted Date Resolved Date HTN, GOAL BELOW 140/80 01/06/2012 6 Overview: Per HTN Protocol #27. Unstable angina 11/23/2011 10/24/2016 Chest pain 11/22/2011 10/24/2016 NSTEMI (non-ST elevated myocardial infarction) 0 11/22/2011 12/30/2016 Acute coronary syndrome 09/15/2009 10/25/19 17 Enlarged aorta 09/15/2009 04/27/2019 Overview: Aortic root 4.4 cm 4.29.2009 echo at [facility]. HTN, goal below 130/80 06/14/2009 2 Overview: Per HTN Taxonomy. Type 2 diabetes mellitus wit h hemoglobin A1c goal of less than 7.0% 03/02/2009 03/27/2011 Overview: Modified per Diabetes protocol #14. ICD-10 update of inactive term EXAMINATION OF PARTICIPANT IN CLINICAL TRIAL-gen omics 11/17/2008 09/01/2009 Overview: Renamed Per Clinical Trials Billing Project. Study Titile: Genomic Markers for Patients with Cardiovascular Disease Project #[id number] PI: Francoise Tomlin MD Please call [phone] with study related questions INTERFACED RESULT 11/17/2008 10/17/2011 GENOMICS CARDIO RESEARCH OTHER*[id number] 200806/25/2016 Overview: Renamed Per Clinical Trials Billing Project. Study Titile: Genomic Markers for Patients with Cardiovascular Disease Project #[id number] PI: Francoise Tomlin MD Please call [phone] with study related questions CLASS I-II ANGINA [...] as of this encounter (statuses as of 01/28/2020) Immunizations Name Administration Dates Next Due Pneumococcal [...] Comments:quit 30 yrs ago, wh ile in [place] for 4 years Alcohol Use Drinks/Week oz/Week [...] Telephone Encounter - Monty Maria MD - 01/28/2020 3:05 PM EDT Signed Prescriptions: Disp Refills Isosorbide Mononitrate ER 120 MG TB24 90 Tab 1 Sig: TAKE 1 TABLET BY MOUTH EVERY MORNING Authorizing Provider: MONTY MARIA * Telephone Encounter - Anjali Awad snowblower mechanic - 01/28/2020 1:25 PM EDT Pending Prescriptions: Disp Refills Isosorbide Mononitrate ER 120 MG TB24 [Ph*90 Tab 1 Sig: TAKE 1 TABLET BY MOUTH EVERY MORNING * Telephone Encounter - Anjali Awad snowblower mechanic - 01/28/2020 1:25 PM EDT Pending Prescriptions: Disp Refills Isosorbide Mononitrate ER 120 MG TB24 [Ph*90 Tab 1 Sig: TAKE 1 TABLET BY MOUTH EVERY MORNING Last Office/Telemedicine Visit: 10/27/2019 Next Office Visit: 04/27/2020 Scheduled Provider(s): Monty Maria MD If no future appointments scheduled, and last appointment is greater than a year ago, please schedule patient for a follow-up appointment Last date the medication was ordered: 08/13/19 Pharmacy: [id number] [id number] [address] [place] Is this request for a controlled [...] Laboratory Laboratory [facility] Najera [address] [place] [address] [phone] 04/27/2020 Office Visit Family Medicine Monty Maria MD [address] [place] [address] [phone] 06/21/2020 Office Visit Cardiology Azael Lozano MD [address] [place] [address] [phone] Health Maintenance Due Date Last Done Comments Zoster Vaccines (1 of 2) 1985 Influenza Vaccine (FLU shot) (#1) 2019 03/02/2019, 03/01/2018, 03/02/2017, Additional history exists CKD GFR USE SMARTSET 93664 04/27/202010/26, 09/20/2019, 04/27/2019, Additional history exists CKD PHOS USE SMARTSET 87844 04/27/2020 04/27/2019, 1 05/20/2017 DIABETES-FOOT EXAM 04/27/2020 04/27/2019, 1 05/20/2017, 10/24/2016, Additional history exists DIABETES-HGBA1C EVERY 6 MONTHS 04/27/2020 10/27/2019, 01/12/2019, 03/20/2018, Additional history exists Yearly B-12 04/27/2020 04/27/2019, 05/01/2017 CKD HGB USE SMARTSET 98130 09/19/202009/19, 04/27/2019, 03/20/2018, Additional history exists COLONOSCOPY-EVERY [...] Documents on File Type Date Recorded Patient Claim Approver Expl 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 Yes, not currently available Full Code 09/15/2009 [...]
--- OUTSIDE RECORDS SUMMARY | 2023-02-21 02:49 | External Medical Summary | Summary of Care ---
Author Name Unknown Organization [place] [address] Care Team Providers Care Teachers Aide Name Role Phone Monty Dumont MD Primary Care Provide r Reason for Visit * Reason Comments Follow Up six month follow Encounter Details Date Type Department Care Team Description 09/17/2019 Telemedicine Cardiology, [facility] [address] [facility] [place] [address] Azael Lozano MD 132 [place] [address] [phone] Chronic coronary artery disease*; Aortocoronary bypass status; Nonrheumatic aortic valve stenosis; Dyslipidemia, goal LDL below 70 Allergies No Known Allergiesdocumented as of this encounter (statuses as of 09/17/2019) Medications Medication Sig Dispensed Refills Start Date [...] Additional Information Patient not taking. Reported on 09/17/2019 3:04 PM nitroglycerin (NITROSTAT) 0.4 MG SUBLIndications:Chron ic coronary [...] THE AFTERNOON 90 Tab 4 03/04/2019 Active metoprolol succinate XL (TOPROL XL) 25 MG [id number]:Chron ic coronary artery disease,Aortocoronary bypass status,HTN, goal below 140/90 TAKE 2 TABLETS BY MOUTH EVERY DAY 180 Tab 1 04/07/2019 Active Losartan Potassium-HCTZ 100-12.5 MG per tabletIndications:HTN , goal below 140/90 Take 1 Tab by mouth daily. 90 Tab 3 04/14/2019 Active Additional Information Patient not taking. Reported on 09/17/2019 3:04 PM hydroCHLOROthiazide (HYDRODIURIL) 12.5 MG TabletIndications:HTN , goal below 140/90 Take 1 Tab by mouth daily. 90 Tab 3 04/19/2019 Active losartan (COZAAR) 100 MG TabletIndications:HTN , goal below 140/90 Take 1 Tab by mouth daily. 90 Tab 3 04/19/2019 Active amLODIPine (NORVASC) 5 MG TabletIndications:HTN , goal below 130/80 Take 1 Tab by mouth daily. 90 Tab 1 04/26/2019 Active Ranolazine ER 1000 MG [id number]:Chest pain,Unstable angina (HCC) TAKE 1 TABLET TWICE [...] the morning. 90 Tab 1 08/13/2019 Active documented as of this encounter (statuses as of 09/17/2019) Active Problems Problem Noted Date Hypertensive kidney [...] as of this encounter (statuses as of 09/17/2019) Resolved Problems Problem Noted Date Resolved Date [...] Markers for Patients with Cardiovascular Disease Project #[id number] PI: Francoise Tomlin MD Please call [phone] with study related questions INTERFACED RESULT 11/17/2008 10/17/2011 GENOMICS CARDIO RESEARCH OTHER*[id number] 200806/25/2016 Overview: Renamed Per Clinical Trials Billing Project. Study Titile: Genomic Markers for Patients with Cardiovascular Disease Project #[id number] PI: Francoise Tomlin MD Please call [phone] with study related questions CLASS I-II ANGINA [...] as of this encounter (statuses as of 09/17/2019) Immunizations Name Administration Dates Next Due Pneumococcal [...] Comments:quit 30 yrs ago, wh ile in [place] for 4 years Alcohol Use Drinks/Week oz/Week Comments Yes a beer per nigh t Sex Assigned at Date Recorded Not on file Job Start Date Occupation Industry Not on file Not on file Not on file Travel History Travel Start Travel End COVID-19 Exposure Response Date Recorded In the last month, have you been in contact with someone who was confirmed or suspected to have Coronavirus / COVID-19? No / Unsure 09/17/2019 2:58 PM EDT documented as of this encounter Last Filed Vital Signs Vital Sign Reading Time Taken Comments Blood Pressure - - Pulse - - Temperature - - Respiratory Rate - - Oxygen Saturation - - Inhaled Oxygen Concentration - - Weight 69.4 kg (153 lb) 09/17/2019 2:58 PM EDT Height - - Body Mass Index 21.34 04/27/2019 9:22 AM EST documented in this encounter Progress Notes * Azael Lozano MD - 09/17/2019 3:02 PM EDT 09/17/2019 TELEPHONE FOLLOWUP VISIT - CARDIOLOGY Name: Dirk Garcia After connecting to the patient via telephone, the patient was identified by name and date of . Patient was then informed that this was a telephone call only visit. The patient agreed to participate. This is an established patient evaluated in my specialty within the past three years yes Visit Disposition: Routine follow-up Total call duration was 12 minutes. SUBJECTIVE: Dirk Garcia is a 84 year old year old male who was called for follow up of 1. Atherosclerotic coronary disease status post coronary [...] aortic valve stenosis 8. Right bundle-branch block Last seen 01/28/2019 Patient was contacted and identified Patient denies any acute complaints today notes overall stable class 2 3 angina with very rare nitroglycerin use over the past several months. Notes no fevers chills or productive cough notes no tachy palpitations syncope near syncope notes no orthopnea PND peripheral edema. Appetite and weight have been stable. Has been walking for exercise with general good tolerance. Some dyspnea heavy or exertions but stable. Appetite good but no acute weight gain no sleep disruption Extensive ROS: All systems reviewed & are unremarkable except as noted in HPI Review of patient's allergies indicates: No Known Allergies Current Outpatient Medications Medication Sig Dispense Refill Isosorbide Mononitrate ER 120 MG TB24 Take [...] TABLET TWICE A DAY 180 Tab 4 amLODIPine (NORVASC) 5 MG Tablet Take 1 Tab by mouth daily. 90 Tab 1 hydroCHLOROthiazide (HYDRODIURIL) 12.5 MG Tablet Take 1 Tab by mouth daily. 90 Tab 3 losartan (COZAAR) 100 MG Tablet Take 1 Tab by mouth daily. 90 Tab 3 Losartan Potassium-HCTZ 100-12.5 MG per tablet Take 1 Tab by mouth daily. 90 Tab 3 metoprolol succinate XL (TOPROL XL) 25 MG TB24 TAKE 2 TABLETS BY MOUTH EVERY DAY 180 Tab 1 rosuvastatin (CRESTOR) 20 MG Tablet TAKE 1 TABLET DAILY AT 5 P.M. IN THE AFTERNOON 90 Tab 4 clopidogrel (PLAVIX) 75 MG Tablet Take 1 Tab by mouth daily. 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 Patient on appropriate medical therapies with general good tolerance. No fevers or unexplained infections. Underlying mild aortic stenosis PLAN: Complete lab work as ordered Continue all current medical therapies Repeat echocardiogram to reassess aortic valve after next visit DISPOSITION: Follow-up in 6 months time Azael Lozano MD Cardiology, [facility] [address] [place] [address] This chart was completed in part utilizing [employer] Speech Voice Recognition Software. Grammatical errors, random [...] Nursing Notes * Aguilar Hanson RN - 09/17/2019 3:04 PM EDT Examination Room: [facility] Name: Dirk Garcia Date of : (1935). Reason for Visit: six month return Interim Hospitalization(s): denies Problems/Concerns: denies Chest Pain/SOB: denies PIRES at times [facility] is a way you can talk to your provider online through e-mail. Would you like to sign up? I can activate it for you? NO INTERNET ACCESS documented in this encounter Plan of Treatment Upcoming Encounters Date Type Specialty Care Team Description 10/27/2019 Office Visit Family Medicine Monty Dumont MD [address] [place] [address] [phone] 06/21/2020 Office Visit Cardiology Azael Lozano MD [address] [place] [address] [phone] Health Maintenance Due Date Last Done Comments Zoster Vaccines (1 of 2) 1985 DIABETES-HGBA1C EVERY 6 MONTHS 07/15/2019 01/12/2019, 03/20/2018, 05/01/2017, Additional history exists CKD GFR USE SMARTSET 59947 10/27/201904/27, 03/20/2018, 04/07/2017, Additional history exists CKD HGB USE SMARTSET 46509 04/27/202004/27, 03/20/2018, 04/07/2017, Additional history exists CKD PHOS USE SMARTSET 83184 04/27/2020 04/27/2019, 1 05/20/2017 DIABETES-FOOT EXAM 04/27/2020 04/27/2019, 1 05/20/2017, 10/24/2016, Additional history exists Yearly B-12 04/27/2020 04/27/2019, 05/01/2017 COLONOSCOPY-EVERY 5 YRS AGES 18-100 03/20/2021 03/20/2016, [...] Coronary atherosclerosis of unspecified type of vessel, [place] or graft Aortocoronary bypass status Postsurgical aortocoronary bypass status Nonrheumatic aortic valve stenosis Aortic valve disorders Dyslipidemia, goal LDL below 70 Other and unspecified hyperlipidemia documented in this encounter Advance Directives Documents on File Type Date Recorded 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 Yes, not currently available Full Code [...]
--- OUTSIDE RECORDS SUMMARY | 2023-02-21 02:49 | External Medical Summary | Summary of Care ---
Author Name Unknown Organization [place] [address] Care Team Providers Care Education Spec Name Role Phone Monty Dumont MD Primary Care Provide r Reason for Visit * Reason Comments Test Results Encounter Details Date Type Department Care Team Description 09/21/[address] [facility] [address] [facility] [place] [address] China Smyth PA-C [address], [place] [id number] Test Results Allergies No Known Allergiesdocumented as of this encounter (statuses as of 09/21/2019) Medications Medication Sig Dispensed Refills Start Date End Date Status ONE TOUCH ULTRA DEVIIndications:DM type 2, not at goal ([facility]) check daily 1 0 12/11/2005 Active ONE TOUCH ULTRA CONTROL SOLNIndications:DM type 2, not at goal (HCC) check daily 1 11 12/11/2005 Active ONE TOUCH ULTRA TEST STRPIndications:DM type 2, not at goal ([facility]) test daily 1 box 11 12/11/2005 Active ONE TOUCH ULTRASOFT LANCETS MISCIndications:DM type 2, not at goal ([facility]) test daily 1 box 11 12/11/2005 [...] 1 11/17/2018 Active clopidogrel (PLAVIX) 75 MG TabletIndications:Aort ocoronary bypass status,Acute coronary syndrome (HCC),Chronic coronary artery disease,Enlarged aorta (HCC) Take 1 Tab by mouth daily. 100 Tab 1 01/15/2019 Active rosuvastatin (CRESTOR) 20 MG TabletIndications:Dysl ipidemia, goal LDL below 70,Dyslipidemia, goal LDL below 160,Mixed dyslipidemia TAKE 1 TABLET DAILY AT 5 P.M. IN THE AFTERNOON 90 Tab 4 03/04/2019 Active metoprolol succinate XL (TOPROL XL) 25 MG [id number]:Chroni c coronary artery disease,Aortocoronary bypass status,HTN, goal below 140/90 TAKE 2 TABLETS BY MOUTH EVERY DAY 180 Tab 1 04/07/2019 Active Losartan Potassium-HCTZ 100-12.5 MG per tabletIndications:HTN, goal below 140/90 Take 1 Tab by mouth daily. 90 Tab 3 04/14/2019 Active hydroCHLOROthiazide (HYDRODIURIL) 12.5 MG TabletIndications:HTN, goal below 140/90 Take 1 Tab by mouth daily. 90 Tab 3 04/19/2019 Active losartan (COZAAR) 100 MG TabletIndications:HTN, goal below 140/90 Take 1 Tab by mouth daily. 90 Tab 3 04/19/2019 Active amLODIPine (NORVASC) 5 MG TabletIndications:HTN, goal below 130/80 Take 1 Tab by mouth daily. 90 Tab 1 04/26/2019 Active Ranolazine ER 1000 MG [id number]:Chest pain,Unstable angina (HCC) TAKE 1 TABLET TWICE [...] as of this encounter (statuses as of 09/21/2019) Active Problems Problem Noted Date Hypertensive kidney [...] as of this encounter (statuses as of 09/21/2019) Resolved Problems Problem Noted Date Resolved Date HTN, GOAL BELOW 140/80 01/06/2012 6 Overview: Per HTN Protocol #27. Unstable angina 11/23/2011 10/24/2016 Chest pain 11/22/2011 10/24/2016 NSTEMI (non-ST elevated myocardial infarction) 0 11/22/2011 12/30/2016 Acute coronary syndrome 09/15/2009 10/25/19 17 Enlarged aorta 09/15/2009 04/27/2019 Overview: Aortic root 4.4 cm 4.29.2009 echo at [facility]. HTN, goal below 130/80 06/14/2009 2 Overview: Per HTN Taxonomy. Type 2 diabetes mellitus wit h hemoglobin A1c goal of less than 7.0% 03/02/2009 03/27/2011 Overview: Modified per Diabetes protocol #14. ICD-10 update of inactive term EXAMINATION OF PARTICIPANT IN CLINICAL TRIAL-gen omics 11/17/2008 09/01/2009 Overview: Renamed Per Clinical Trials Billing Project. Study Titile: Genomic Markers for Patients with Cardiovascular Disease Project #[id number] PI: Francoise Tomlin MD Please call [phone] with study related questions INTERFACED RESULT 11/17/2008 10/17/2011 GENOMICS CARDIO RESEARCH OTHER*[id number] 200806/25/2016 Overview: Renamed Per Clinical Trials Billing Project. Study Titile: Genomic Markers for Patients with Cardiovascular Disease Project #[id number] PI: Francoise Tomlin MD Please call [phone] with study related questions CLASS I-II ANGINA [...] as of this encounter (statuses as of 09/21/2019) Immunizations Name Administration Dates Next Due Pneumococcal [...] Comments:quit 30 yrs ago, wh ile in [place] for 4 years Alcohol Use Drinks/Week oz/Week [...] encounter Miscellaneous Notes * Telephone Encounter - Sylvia Liang LPN - 09/21/2019 4:01 PM EDT Patient is aware and will comply. Thank you * Telephone Encounter - China Smyth PA-C - 09/21/2019 2:50 PM EDT Please notify pt that urine came back negative for infections. documented in this encounter Plan of Treatment Upcoming Encounters Date Type Specialty Care Team Description 10/27/2019 Office Visit Family Medicine Monty Dumont MD [address] [place] [address] [phone] 06/21/2020 Office Visit Cardiology Azael Lozano MD [address] [place] [address] [phone] Health Maintenance Due Date Last Done Comments Zoster Vaccines (1 of 2) 1985 DIABETES-HGBA1C EVERY 6 MONTHS 07/15/2019 01/12/2019, 03/20/2018, 05/01/2017, Additional history exists CKD GFR USE SMARTSET 46811 03/22/202009/19, 04/27/2019, 03/20/2018, Additional history exists CKD PHOS USE SMARTSET 26685 04/27/2020 04/27/2019, 1 05/20/2017 DIABETES-FOOT EXAM 04/27/2020 04/27/2019, 1 05/20/2017, 10/24/2016, Additional history exists Yearly B-12 04/27/2020 04/27/2019, 05/01/2017 CKD HGB USE SMARTSET 04492 09/19/202009/19, 04/27/2019, 03/20/2018, Additional history exists COLONOSCOPY-EVERY [...] Documents on File Type Date Recorded Patient [employer] Display Builder Expl anation Advanced Directive 11/15/2008 12:00 AM [...] the patient have Health Care Power of Mold Bunch Trimmer? Yes, not currently available Full Code [...]
--- OUTSIDE RECORDS SUMMARY | 2023-02-21 02:49 | External Medical Summary ---
Author Name Unknown Address Unknown Organization [facility]:IT USE ONLY!!! Laboratory Report Ordering Provider Test Date Status MYRON GRIMM 09/20/2019 16:46:00 Final Observation Date Value Abnormality Reference (Units ) Status Source 09/20/2019 16:46 CLEAN CATCH URINE Final Bacteria XXX Cult 09/21/2019 14:41 LESS THAN 10,000 COLONIES/ML NORMAL SORAYA ONE COLONY TYPE Final REPORT STATUS 09/21/2019 14:41 09/21/2019 FINAL Final Performing Location IT USE ONLY!!!
--- OUTSIDE RECORDS SUMMARY | 2023-02-21 02:49 | External Medical Summary | Summary of Care ---
Author Name Unknown Organization [place] [address] Care Team Providers Care Construction Technology Instructor Name Role Phone Monty Dumont MD Primary Care Provide r Reason for Visit * Reason Comments Acute pt c/o weak run down dizziness,light headed,decreased appetite and SOB at times. 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); Hypertensive kidney disease with chronic kidney disease stage III ([facility]) Allergies No Known Allergiesdocumented as of this encounter (statuses as of 09/20/2019) Medications Medication Sig Dispensed Refills Start Date End Date Status ONE TOUCH ULTRA DEVIIndications:DM type 2, not at goal ([facility]) check daily 1 0 12/11/2005 Active ONE TOUCH ULTRA CONTROL SOLNIndications:DM type 2, not at goal ([facility]) check daily 1 11 12/11/2005 Active ONE TOUCH ULTRA TEST STRPIndications:DM type 2, not at goal ([facility]) test daily 1 box 11 12/11/2005 Active [...] metoprolol succinate XL (TOPROL XL) 25 MG [id number]:Chroni c coronary artery disease,Aortocoronary bypass status,HTN, goal [...] 1 04/26/2019 Active Ranolazine ER 1000 MG [id number]:Chest pain,Unstable angina (HCC) TAKE 1 TABLET TWICE [...] as of this encounter (statuses as of 09/20/2019) Active Problems Problem Noted Date Hypertensive kidney [...] as of this encounter (statuses as of 09/20/2019) Resolved Problems Problem Noted Date Resolved Date HTN, GOAL BELOW 140/80 01/06/2012 6 Overview: Per HTN Protocol #27. Unstable angina 11/23/2011 10/24/2016 Chest pain 11/22/2011 10/24/2016 NSTEMI (non-ST elevated myocardial infarction) 0 11/22/2011 12/30/2016 Acute coronary syndrome 09/15/2009 10/25/19 17 Enlarged aorta 09/15/2009 04/27/2019 Overview: Aortic root 4.4 cm 4.29.2009 echo at [facility]. HTN, goal below 130/80 06/14/2009 [...] Markers for Patients with Cardiovascular Disease Project #[id number] PI: Ricardo Yang MD Please call [phone] with study related questions INTERFACED RESULT 11/17/2008 10/17/2011 GENOMICS CARDIO RESEARCH OTHER*[id number] 200806/25/2016 Overview: Renamed Per Clinical Trials Billing Project. Study Titile: Genomic Markers for Patients with Cardiovascular Disease Project #[id number] PI: Ricardo Yang MD Please call [phone] with study related questions CLASS I-II ANGINA [...] as of this encounter (statuses as of 09/20/2019) Immunizations Name Administration Dates Next Due Pneumococcal [...] Comments:quit 30 yrs ago, wh ile in [place] for 4 years Alcohol Use Drinks/Week oz/Week [...] Sign Reading Time Taken Comments Blood Pressure 124/60 09/20/2019 4:07 PM EDT Pulse 60 09/20/2019 4:07 PM EDT Temperature 35.6 C (96.1 F) 09/20/2019 3:01 PM ED T Respiratory Rate 18 09/20/2019 3:01 PM EDT Oxygen Saturation - - Inhaled Oxygen Concentration - - Weight 70.5 kg (155 lb 8 oz) 09/20/2019 3:01 PM EDT Height 180.3 cm (5' 11") 09/20/2019 3:01 PM EDT Body Mass Index 21.69 09/20/2019 3:01 PM EDT documented in this encounter Patient Instructions * Patient Instructions* Ilene Quezada LPN - 09/20/2019 3:05 PM EDT Treating Urinary Incontinence in Men (This education [...] prostate surgery can result in permanent incontinence. Patient Instructions - Fall Prevention (This education [...] pathway between the bedroom and the bathroom Paul Patient Education Copyright 2008 - 2010 Paul [...] that mean climbing, even on a stepstool. Paul Patient Education Copyright 2008 - 2010 Paul except where otherwise noted. documented in this encounter Progress Notes * China Smyth PA-C - 09/20/2019 3:58 PM EDT HPI: Dirk Garcia is a 84 year old male who presents to clinic for evaluation of 3 days duration of slight dizziness. Notes that he had a called cardiology on Friday was feeling well. On Friday morning he woke up in just did not feel quite right. Says that he got out of bed quickly and felt slightly dizzy. He and his for doing a lot of yd work over the weekend, shoveling [employer]. Had no exertional symptoms, chest pain, shortness of breath. Has not needed to take his nitroglycerinat all. States that he has had some decreased appetite but still was able to eat all of his meals. He denies any fevers, chills, URI symptoms, chest pain, shortness of breath, nausea, vomiting, melena, hematochezia, abdominal pain, diarrhea, constipation. No peripheral edema. Denies any urinary symptoms. No recent medication changes. Taking medication as directed. Does not check blood glucose regularly. Having a hard time coping being at home. 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 ROS: See HPI for positives and negatives. Patient denies additional complaints. PAST MEDICAL HISTORY: 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 Dyslipidemia, goal LDL below 70 E78.5 S/P angioplasty with stent Z95.820 DM type 2, goal A1C to be determined ([facility]) E11.9 HTN, goal below 140/90 I10 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) E11.22, N18.3 History of colon polyps Z86.010 Hypertensive kidney disease with chronic kidney disease stage III (HCC) I12.9, N18.3 Past Surgical History: Procedure Laterality Date CABG, ARTERIAL, SINGLE 11/25/08 CORONARY ARTERY BYPASS GRAFT USING ARTERY 1 GRAFT performed by MAXIMILIANO CASILLAS at [facility] CABG, ARTERY-VEIN, TWO 11/25/08 CORONARY ARTERY BYPASS GRAFT ARTERIAL AND VENOUS 2 GRAFTS performed by MAXIMILIANO CASILLAS at [facility] CATHETERIZE LEFT HEART THRU SKIN Cardiac Catheterization, Left Heart CATHETERIZE LEFT HEART THRU SKIN 11/17/08 LEFT HEART CATH, PERCUTANEOUS performed by DRAKE MALONE at [facility] CATHETERIZE LEFT HEART THRU SKIN 09/15/09 LEFT HEART CATH, PERCUTANEOUS performed by RICARDO YANG at [facility] COLONOSCOPY, W/BIOPSY jan 2002 adenomatous and hyperplastic polyps, next in jan 2005 CORONARY ANGIOGRAPHY W/LEFT HEART CATH 11/25/2011 CORONARY ANGIOGRAPHY W/LEFT HEART CATH performed by Jermaine Leary DO at [facility] DESTRUCTION PREMALIGNANT LESION 1ST about 2001 facial lesion. ENDO,VIDEO ASSIST HARVEST WALE 11/25/08 ENDOSCOPY VIDEO ASSISTED HARVEST VEIN performed by MAXIMILIANO CASILLAS at OR [facility] REMOVAL OF APPENDIX age 21 Review of [...] LANCETS MISC test daily 1 box 11 nitroglycerin (NITROSTAT) 0.4 MG SUBL DISSOLVE 1 TABLET UNDER THE TONGUE EVERY 5 MINUTES FOR CHEST PAIN. UP TO 3 DOSES IN 15 MINUTES. 25 Tab 1 Nursing Notes: Ilene Quezada LPN 09/20/19 1509 Signed Chief Complaint Patient presents with Acute pt c/o weak run down dizziness,light headed,decreased appetite and SOB at times. EXAM: BP 132/70 | Pulse 68 | Temp (Src) 96.1 (Tympanic) | Resp 18 | Ht 5' 11" (1.803m) | Wt 155 lbs 8 oz (70.534kg) | BMI 21.69 kg/m | BSA 1.88 m GENERAL: alert, healthy, no distress, well nourished and well developed HEAD: Normocephalic, atraumatic EYES: PERRL, EOMI, Conjunctiva are pink and non-injected, sclera clear EARS: External ears normal, Canals clear, TM's clear with good cone of light NOSE: no purulent discharge, no sinus tenderness, no mucosal erythema or edema OROPHARYNX: no exudate, no erythema, lips, buccal mucosa, and tongue normal and mucous membranes are moist NECK: supple, no adenopathy HEART: regular rate & rhythm, no murmurs and no gallops LUNGS: clear to auscultation bilaterally, no wheezing, rales or rhonchi ABDOMEN: abdomen soft, non-tender, normal bowel sounds and no masses or organomegaly SKIN: skin color, texture, turgor are normal NEURO: alert & oriented x 3 with fluent speech, no focal motor/sensory deficits, gait normal, reflexes normal and symmetric ASSESSMENT/PLAN Dizziness (Primary) - 3 POSITIONAL BLOOD PRESSURE - BASIC METAB PANEL, BMP; Future; Expected date: 09/20/2019 - CULTURE QUANT URINE; Future; Expected date: 09/20/2019 - CBC/DIFF; Future; Expected date: 09/20/2019 Risk and functional assessment - PRES OR ABS OF URIN INCONT - PAT SCRN FOR FALL RISK 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) 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 Recommend increasing fluids. No medication changes. Discussed concerning signs and symptoms that require immediate re-evaluation. Follow-up pending labs Patient Instructions Treating Urinary Incontinence in Men (This education [...] prostate surgery can result in permanent incontinence. Patient Instructions - Fall Prevention (This education [...] pathway between the bedroom and the bathroom Paul Patient Education Copyright 2008 - 2010 Paul [...] throughout the day. Paul Patient Education Copyright 2008 - 2010 Paul [...] that mean climbing, even on a stepstool. Paul Patient Education Copyright 2008 - 2010 Paul except where otherwise noted. China Smyth PA-C Family Practice [address] [place] [address] This chart was completed in part utilizing [employer] Speech Voice Recognition Software. Grammatical errors, random [...] documented in this encounter Nursing Notes * Ilene Quezada LPN - 09/20/2019 3:04 PM EDT Chief Complaint Patient presents with Acute pt c/o weak run down dizziness,light headed,decreased appetite and SOB at times. documented in this encounter Plan of Treatment Upcoming Encounters Date Type Specialty Care Team Description 10/27/2019 Office Visit Family Medicine Monty Dumont MD [address] [place] [address] 06/21/2020 Office Visit Cardiology Azael Lozano MD [address] [place] [address] Pending Results Name Type Priority Associated Diagnoses Date /Time BASIC METAB PANEL, BMP Lab Routine Dizziness 09/20/2019 4:21 PM EDT CULTURE QUANT URINE Lab Routine Dizziness 09/20/2019 4:46 PM EDT CBC/DIFF Lab Routine Dizziness 09/20/2019 4:21 PM EDT Scheduled Orders Name Type Priority Associated Diagnoses Orde r Schedule 3 POSITIONAL BLOOD PRESSURE Procedures Routine Dizziness Ordered: 09/20/2019 BASIC METAB PANEL, BMP Lab Routine Dizziness Expected: 09/20/2019 (Approximate), Expires: 12/21/2019 CULTURE QUANT URINE Lab Routine Dizziness Expected: 09/20/2019 (Approximate), Expires: 12/21/2019 CBC/DIFF Lab Routine Dizziness Expected: 09/20/2019 (Approximate), Expires: 09/19/2020 Health Maintenance Due Date Last Done Comments Zoster Vaccines (1 of 2) 1985 DIABETES-HGBA1C EVERY 6 MONTHS 07/15/2019 01/12/2019, 03/20/2018, 05/01/2017, Additional history exists CKD GFR USE SMARTSET 89657 10/27/201904/27, 03/20/2018, 04/07/2017, Additional history exists CKD HGB USE SMARTSET 78881 04/27/202004/27, 03/20/2018, 04/07/2017, Additional history exists CKD PHOS USE SMARTSET 86138 04/27/2020 04/27/2019, 1 05/20/2017 DIABETES-FOOT EXAM 04/27/2020 [...] as of this encounter Visit Diagnoses Diagnosis Dizziness- Primary Dizziness and giddiness Risk and functional assessment Screening for unspecified condition 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) Type II or unspecified type diabetes mellitus with renal manifestations, not stated as uncontrolled 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 Yes, not currently available Full Code [...]
--- OUTSIDE RECORDS SUMMARY | 2023-02-21 02:49 | External Medical Summary ---
Author Name Unknown Address [address] [id number] Phone Organization K01:[facility] [address] [id number] Laboratory Report Ordering Provider Test Date Status CROW MERRILL 04/27/2019 09:54:00 Final Observation Date Value Abnormality Reference Status Phosphate 04/27/2019 18:36 3.5 2.5-4.8 Fin al Performing Location [place] [address] [address] [facility] [address]
--- OUTSIDE RECORDS SUMMARY | 2023-02-21 02:49 | External Medical Summary | Summary of Care ---
Author Name Unknown Organization [place] [address] Care Team Providers Care Support Specialist Name Role Phone Monty Dumont MD Primary Care Provide r Reason for Visit * Reason Comments Medication Refill Encounter Details Date Type Department Care Team Description 06/14/2019 Refill [facility] [address] [place] [address] Mon[facility] Dumont MD [address] [facility] [address] [phone] DM type 2, goal A1C to be determined (HCC) Allergies No Known Allergiesdocumented as of this encounter (statuses as of 06/14/2019) Medications Medication Sig Dispensed Refills Start Date [...] 1 11/17/2018 Active clopidogrel (PLAVIX) 75 MG TabletIndications:A ortocoronary bypass status,Acute coronary syndrome (HCC),Chronic coronary artery disease,Enlarged aorta (HCC) Take 1 Tab by mouth daily. 100 Tab 1 01/15/2019 Active Isosorbide Mononitrate ER 120 MG TB24 Take 1 Tab by mouth daily. In the morning. 90 Tab 1 01/19/2019 Active rosuvastatin (CRESTOR) 20 MG TabletIndications:D yslipidemia, goal LDL below 70,Dyslipidemia, goal LDL below 160,Mixed dyslipidemia TAKE 1 TABLET DAILY AT 5 P.M. IN THE AFTERNOON 90 Tab 4 03/04/2019 Active JANUVIA 100 MG TabletIndications:D iabetes mellitus with stage 3 chronic kidney disease (HCC) TAKE 1 TABLET DAILY 90 Tab 0 04/06/2019 Active metoprolol succinate XL (TOPROL XL) 25 MG [id number]:Chr onic coronary artery disease,Aortocorona ry bypass status,HTN, goal below 140/90 TAKE 2 TABLETS BY MOUTH EVERY DAY 180 Tab 1 04/07/2019 Active Losartan Potassium-HCTZ 100-12.5 MG per tabletIndications:H TN, goal below 140/90 Take 1 Tab by mouth daily. 90 Tab 3 04/14/2019 Active hydroCHLOROthiazide (HYDRODIURIL) 12.5 MG TabletIndications:H TN, goal below 140/90 Take 1 Tab by mouth daily. 90 Tab 3 04/19/2019 Active losartan (COZAAR) 100 MG TabletIndications:H TN, goal below 140/90 Take 1 Tab by mouth daily. 90 Tab 3 04/19/2019 Active amLODIPine (NORVASC) 5 MG TabletIndications:H TN, goal below 130/80 Take 1 Tab by mouth daily. 90 Tab 1 04/26/2019 Active Ranolazine ER 1000 MG [id number]:Trini st pain,Unstable angina (HCC) TAKE 1 TABLET TWICE A DAY 180 Tab 4 06/11/2019 Active glimepiride (AMARYL) 4 MG Tablet TAKE 2 TABLETS BY MOUTH EVERY DAY WITH FIRST MEAL OF THE DAY FOR DIABETES 180 Tab 1 06/14/2019 Active metFORMIN (GLUCOPHAGE) 850 MG TabletIndications:D M type 2, goal A1C to be determined (HCC) Take 1 Tab by mouth 3 times a day. 90 Tab 5 06/14/2019 Active metFORMIN (GLUCOPHAGE) 850 MG TabletIndications:D M type 2, goal A1C to be determined (HCC) Take 1 Tab by mouth 3 times a day. 90 Tab 5 12/21/2018 06/14/2019 Discontinued (Refill) documented as of this encounter (statuses as of 06/14/2019) Active Problems Problem Noted Date Hypertensive kidney [...] as of this encounter (statuses as of 06/14/2019) Resolved Problems Problem Noted Date Resolved Date HTN, GOAL BELOW 140/80 01/06/2012 6 Overview: Per HTN Protocol #27. Unstable angina 11/23/2011 10/24/2016 Chest pain 11/22/2011 10/24/2016 NSTEMI (non-ST elevated myocardial infarction) 0 11/22/2011 12/30/2016 Acute coronary syndrome 09/15/2009 10/25/19 17 Enlarged aorta 09/15/2009 04/27/2019 Overview: Aortic root 4.4 cm 4.29.2009 echo at [facility]. HTN, goal below 130/80 06/14/2009 2 Overview: Per HTN Taxonomy. Type 2 diabetes mellitus wit h hemoglobin A1c goal of less than 7.0% 03/02/2009 03/27/2011 Overview: Modified per Diabetes protocol #14. ICD-10 update of inactive term EXAMINATION OF PARTICIPANT IN CLINICAL TRIAL-gen omics 11/17/2008 09/01/2009 Overview: Renamed Per Clinical Trials Billing Project. Study Titile: Genomic Markers for Patients with Cardiovascular Disease Project #[id number] PI: Francoise Tomlin MD Please call [phone] with study related questions INTERFACED RESULT 11/17/2008 10/17/2011 GENOMICS CARDIO RESEARCH OTHER*[id number] 200806/25/2016 Overview: Renamed Per Clinical Trials Billing Project. Study Titile: Genomic Markers for Patients with Cardiovascular Disease Project #[id number] PI: Francoise Tomlin MD Please call [phone] with study related questions CLASS I-II ANGINA [...] as of this encounter (statuses as of 06/14/2019) Immunizations Name Administration Dates Next Due Pneumococcal [...] Telephone Encounter - Monty Dumont MD - 06/14/2019 2:14 PM EST Signed Prescriptions: Disp Refills metFORMIN (GLUCOPHAGE) 850 MG Tablet 90 Tab 5 Sig: Take 1 Tab by mouth 3 times a day. Authorizing Provider: MONTY DUMONT * Telephone Encounter - Martha Mccloud OSA - 06/14/2019 1:58 PM EST Pending Prescriptions: Disp Refills metFORMIN (GLUCOPHAGE) 850 MG Tablet 90 Tab 5 Sig: Take 1 Tab by mouth 3 times a day. Last Office Visit: 04/27/2019 Next Office Visit: 10/27/2019 Scheduled Provider(s): Monty Dumont MD If no future appointments scheduled, and last appointment is greater than a year ago, please schedule patient for a follow-up appointment Last date the medication was ordered: 03/25/19 Pharmacy: [id number] [place] Is this request for a controlled substance?No Urine Drug Screen:No results found for this or any previous visit. Patient Phone Numbers Labs: Lab Results Component Value Date/Time CREAT 1.5 (H) 04/27/2019 09:54 AM POTASSIUM 5.2 (H) 04/27/2019 09:54 AM TSH 2.81 01/01/2017 01:44 PM LDLCALC 20 11/23/2011 05:00 AM LDLDIRECT 50 10/24/2016 11:50 AM ALT 19 04/27/2019 09:54 AM HGBA1C 6.5 (H) 01/12/2019 02:01 PM documented in this encounter Plan of Treatment Upcoming Encounters Date Type Specialty Care Team Description 09/17/2019 Office Visit Cardiology Azael Lozano MD [address] [address] [phone] 10/27/2019 Office Visit Family Medicine Monty Dumont MD [address] [place] [address] [phone] Health Maintenance Due Date Last Done Comments Zoster Vaccines (1 of 2) 1985 DIABETES-HGBA1C EVERY 6 MONTHS 07/15/2019 01/12/2019, 03/20/2018, 05/01/2017, Additional history exists CKD GFR USE SMARTSET 46789 10/27/201904/27, 03/20/2018, 04/07/2017, Additional history exists CKD HGB USE SMARTSET 19597 04/27/202004/27, 03/20/2018, 04/07/2017, Additional history exists CKD PHOS USE SMARTSET 13249 04/27/2020 04/27/2019, 1 05/20/2017 DIABETES-FOOT EXAM 04/27/2020 [...] on File Type Date Recorded Patient Hotel And Dining Room Cashier Expl anation Advanced Directive 11/15/2008 12:00 AM Advanced Directive 11/21/2008 12:00 AM Advanced Directive Advanced Directive 09/16/2009 12:00 AM Advanced Directive 11/24/2011 3:43 PM Advanced Directive Advanced Directive Advanced Directive Latest [...] the patient have Health Care Power of Shape Brick Molder? Yes, not currently available Full Code 09/15/2009 [...]
--- OUTSIDE RECORDS SUMMARY | 2023-02-21 02:49 | External Medical Summary | Summary of Care ---
Author Name Unknown Organization [place] [address] Care Team Providers Care Dispensing Optician Name Role Phone Monty Dumont MD Primary Care Provide r Reason for Visit * Reason Comments Test Results Encounter Details Date Type Department Care Team Description 09/21/2019 Telephone Family Practice [facility] [address] [facility] [place] [address] China Smyth PA-C [address], [place] [id number] Test Results Allergies No Known Allergiesdocumented as [...] metoprolol succinate XL (TOPROL XL) 25 MG [id number]:Chroni c coronary artery disease,Aortocoronary bypass status,HTN, goal [...] 1 04/26/2019 Active Ranolazine ER 1000 MG JQ43Pszgudjepty:Chest pain,Unstable angina (HCC) TAKE 1 TABLET TWICE [...] Aortic root 4.4 cm 4.29.2009 echo at [facility]. HTN, goal below 130/80 06/14/2009 2 Overview: Per HTN Taxonomy. Type 2 diabetes mellitus wit h hemoglobin A1c goal of less than 7.0% 03/02/2009 03/27/2011 Overview: Modified per Diabetes protocol #14. ICD-10 update of inactive term EXAMINATION OF PARTICIPANT IN CLINICAL TRIAL-gen omics 11/17/2008 09/01/2009 Overview: Renamed Per Clinical Trials Billing Project. Study Titile: Genomic Markers for Patients with Cardiovascular Disease Project #[id number] PI: Francoise Tomlin MD Please call [phone] with study related questions INTERFACED RESULT 11/17/2008 10/17/2011 GENOMICS CARDIO RESEARCH OTHER*[id number] 200806/25/2016 Overview: Renamed Per Clinical Trials Billing Project. Study Titile: Genomic Markers for Patients with Cardiovascular Disease Project #[id number] PI: Francoise Tomlin MD Please call [phone] with study related questions CLASS I-II ANGINA [...] Comments:quit 30 yrs ago, wh [place] in [place] for 4 years Alcohol Use Drinks/Week oz/Week [...] encounter Miscellaneous Notes * Telephone Encounter - China Smyth PA-C - 09/21/2019 2:50 PM EDT Please notify pt that urine came back negative for infections. documented in this encounter Plan of Treatment Upcoming Encounters Date Type Specialty Care Team Description 10/27/2019 Office Visit Family Medicine Monty Dumont MD [address] [place] [address] [phone] 06/21/2020 Office Visit Cardiology Azael Lozano MD [address] [place] [address] [phone] Health Maintenance Due Date Last Done Comments Zoster Vaccines (1 of 2) 1985 DIABETES-HGBA1C EVERY 6 MONTHS 07/15/2019 01/12/2019, 03/20/2018, 05/01/2017, Additional history exists CKD GFR USE SMARTSET 26671 03/22/202009/19, 04/27/2019, 03/20/2018, Additional history exists CKD PHOS USE SMARTSET 34105 04/27/2020 04/27/2019, 1 05/20/2017 DIABETES-FOOT EXAM 04/27/2020 04/27/2019, 1 05/20/2017, 10/24/2016, Additional history exists Yearly B-12 04/27/2020 04/27/2019, 05/01/2017 CKD HGB USE SMARTSET 54146 09/19/202009/19, 04/27/2019, 03/20/2018, Additional history exists COLONOSCOPY-EVERY [...] on File Type Date Recorded Patient Inventory Management Specialist Expl anation Advanced Directive 11/15/2008 12:00 [...] the patient have Health Care Power of Teaseler? Yes, not currently available Full Code 09/15/2009 [...]
--- OUTSIDE RECORDS SUMMARY | 2023-02-21 02:49 | External Medical Summary | Summary of Care ---
Author Name Unknown Organization [place] [address] Care Team Providers Care Spray Gunner Name Role Phone Monty Dumont MD Primary Care Provide r Reason for Visit * Reason Comments Abnormal Test Results Encounter Details Date Type Department Care Team Description 09/21/2019 Telephone Family Practice [facility] [address] [facility] [place] [address] China Smyth PA-C [address] [place], [place] [id number] Abnormal Test Results Allergies No Known Allergiesdocumented as [...] metoprolol succinate XL (TOPROL XL) 25 MG [id number]:Chroni c coronary artery disease,Aortocoronary bypass status,HTN, goal [...] 1 04/26/2019 Active Ranolazine ER 1000 MG NS19Pskfmexiuxe:Chest pain,Unstable angina (HCC) TAKE 1 TABLET TWICE [...] Aortic root 4.4 cm 4.29.2009 echo at [facility]. HTN, goal below 130/80 06/14/2009 2 Overview: Per HTN Taxonomy. Type 2 diabetes mellitus wit h hemoglobin A1c goal of less than 7.0% 03/02/2009 03/27/2011 Overview: Modified per Diabetes protocol #14. ICD-10 update of inactive term EXAMINATION OF PARTICIPANT IN CLINICAL TRIAL-gen omics 11/17/2008 09/01/2009 Overview: Renamed Per Clinical Trials Billing Project. Study Titile: Genomic Markers for Patients with Cardiovascular Disease Project #[id number] PI: Francoise Tomlin MD Please call [phone] with study related questions INTERFACED RESULT 11/17/2008 10/17/2011 GENOMICS CARDIO RESEARCH OTHER*[id number] 200806/25/2016 Overview: Renamed Per Clinical Trials Billing Project. Study Titile: Genomic Markers for Patients with Cardiovascular Disease Project #[id number] PI: Francoise Tomlin MD Please call [phone] with study related questions CLASS I-II ANGINA [...] Comments:quit 30 yrs ago, wh ile in [place] for 4 years Alcohol Use Drinks/Week oz/Week [...] encounter Miscellaneous Notes * Telephone Encounter - Kathy Lemus LPN - 09/21/2019 8:27 AM EDT Pt aware of all information. * Telephone Encounter - China Smyth PA-C - 09/21/2019 8:02 AM EDT Please notify pt that it appears his kidney function has worsened slightly. He may be a little dehydrated. I recommend that he really try to push fluids today - especially water. If he's not feeling better, we should recheck labs before the weekend documented in this encounter Plan of Treatment Upcoming Encounters Date Type Specialty Care Team Description 10/27/2019 Office Visit Family Medicine Monty Dumont MD [address] [place] [address] [phone] 06/21/2020 Office Visit Cardiology Azael Lozano MD [address] [place] [place] [address] [phone] Health Maintenance Due Date Last Done Comments Zoster Vaccines (1 of 2) 1985 DIABETES-HGBA1C EVERY 6 MONTHS 07/15/2019 01/12/2019, 03/20/2018, 05/01/2017, Additional history exists CKD GFR USE SMARTSET 13119 03/22/202009/19, 04/27/2019, 03/20/2018, Additional history exists CKD PHOS USE SMARTSET 29286 04/27/2020 04/27/2019, 1 05/20/2017 DIABETES-FOOT EXAM 04/27/2020 04/27/2019, 1 05/20/2017, 10/24/2016, Additional history exists Yearly B-12 04/27/2020 04/27/2019, 05/01/2017 CKD HGB USE SMARTSET 87230 09/19/202009/19, 04/27/2019, 03/20/2018, Additional history exists COLONOSCOPY-EVERY [...] Documents on File Type Date Recorded Patient Ornamenter Expl anation Advanced Directive 11/15/2008 12:00 AM [...] the patient have Health Care Power of Anatomical Embalmer? Yes, not currently available Full Code 09/15/2009 [...]
--- OUTSIDE RECORDS SUMMARY | 2023-02-21 02:49 | External Medical Summary | Summary of Care ---
Author Name Unknown Organization [place] [address] Care Team Providers Care Assistant Plant Manager Name Role Phone Monty Dumont MD Primary Care Provide r Reason for Visit * Reason Comments eRx-Medication Refill Encounter Details Date Type Department Care Team Description 06/13/2019 Refill Family Practice [facility] [address] [place] [address] Sylvia Rojas MD [address] [place] [address] [phone] Encounter for long-term (current) use of medications* Allergies No Known Allergiesdocumented as of this encounter (statuses as of 06/14/2019) Medications Medication Sig Dispensed Refills Start Date End Date Status ONE TOUCH ULTRA DEVIIndications:DM type 2, not at goal ([facility]) check daily 1 0 12/11/2005 Active ONE TOUCH ULTRA CONTROL SOLNIndications:DM type 2, not at goal (HCC) check daily 1 11 12/11/2005 Active ONE TOUCH ULTRA TEST STRPIndications:DM type 2, not at goal ([facility]) test daily 1 box 11 12/11/2005 Active ONE TOUCH ULTRASOFT LANCETS MISCIndications:DM type 2, not at goal ([facility]) test daily 1 box 11 12/11/2005 [...] 15 MINUTES. 25 Tab 1 11/17/2018 Active metFORMIN (GLUCOPHAGE) 850 MG TabletIndications: DM type 2, goal A1C to be determined (HCC) Take 1 Tab by mouth 3 times a day. 90 Tab 5 12/21/2018 Active clopidogrel (PLAVIX) 75 MG TabletIndications: Aortocoronary bypass status,Acute coronary syndrome (HCC),Chronic coronary artery disease,Enlarged aorta (HCC) Take 1 Tab by mouth daily. 100 Tab 1 01/15/2019 Active Isosorbide Mononitrate ER 120 MG TB24 Take 1 Tab by mouth daily. In the morning. 90 Tab 1 01/19/2019 Active rosuvastatin (CRESTOR) 20 MG TabletIndications: Dyslipidemia, goal LDL below 70,Dyslipidemia, goal LDL below 160,Mixed dyslipidemia TAKE 1 TABLET DAILY AT 5 P.M. IN THE AFTERNOON 90 Tab 4 03/04/2019 Active JANUVIA 100 MG TabletIndications: 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) TAKE 1 TABLET DAILY 90 Tab 0 04/06/2019 Active metoprolol succinate XL (TOPROL XL) 25 MG [id number]:Ch ronic coronary artery disease,Aortocoron jovanna bypass status,HTN, goal below 140/90 TAKE 2 TABLETS BY MOUTH EVERY DAY 180 Tab 1 04/07/2019 Active Losartan Potassium-HCTZ 100-12.5 MG per tabletIndications: [...] 1 04/26/2019 Active Ranolazine ER 1000 MG HN97Hbqwywtpcec:Ch est pain,Unstable angina (HCC) TAKE 1 TABLET TWICE A DAY 180 Tab 4 06/11/2019 Active glimepiride (AMARYL) 4 MG Tablet TAKE 2 TABLETS BY MOUTH EVERY DAY WITH FIRST MEAL OF THE DAY FOR DIABETES 180 Tab 1 06/14/2019 Active glimepiride (AMARYL) 4 MG Tablet TAKE 2 TABLETS BY MOUTH DAILY WITH THE FIRST MEAL OF THE DAY FOR DIABETES 180 Tab 1 12/21/2018 06/14/2019 Discontinued documented as of this encounter (statuses [...] 4.4 cm 4.29.2009 echo at [facility]. HTN, goal below 130/80 06/14/2009 2 Overview: Per HTN Taxonomy. Type 2 diabetes mellitus wit h hemoglobin A1c goal of less than 7.0% 03/02/2009 03/27/2011 Overview: Modified per Diabetes protocol #14. ICD-10 update of inactive term EXAMINATION OF PARTICIPANT IN CLINICAL TRIAL-gen omics 11/17/2008 09/01/2009 Overview: Renamed Per Clinical Trials Billing Project. Study Titile: Genomic Markers for Patients with Cardiovascular Disease Project #[id number] PI: Francoise Tomlin MD Please call [phone] with study related questions INTERFACED RESULT 11/17/2008 10/17/2011 GENOMICS CARDIO RESEARCH OTHER*[id number] 200806/25/2016 Overview: Renamed Per Clinical Trials Billing Project. Study Titile: Genomic Markers for Patients with Cardiovascular Disease Project #[id number] PI: Francoise Tomlin MD Please call [phone] with study related questions CLASS I-II ANGINA [...] Comments:quit 30 yrs ago, wh ile in [place] for 4 years Alcohol Use Drinks/Week oz/Week Comments Yes a beer per nigh t Sex Assigned at Date Recorded Not on file Job Start Date Occupation Industry Not on file Not on file Not on file Travel History Travel Start Travel End documented as of this encounter Miscellaneous Notes * Telephone Encounter - Monty Dumont MD - 06/14/2019 9:49 AM EST Signed Prescriptions: Disp Refills glimepiride (AMARYL) 4 MG Tablet 180 Tab1 Sig: TAKE 2 TABLETS BY MOUTH EVERY DAY WITH FIRST MEAL OF THE DAY FOR DIABETES Authorizing Provider: MONTY DUMONT * Telephone Encounter - Jazmin Mckeon [facility] - 06/14/2019 8:16 AM EST Pending Prescriptions: Disp Refills glimepiride (AMARYL) 4 MG Tablet [Pharmac*180 Tab1 Sig: TAKE 2 TABLETS BY MOUTH EVERY DAY WITH FIRST MEAL OF THE DAY FOR DIABETES * Telephone Encounter - Jazmin Mckeon [facility] - 06/14/2019 8:13 AM EST Unable to approve refills at this time. Per refill protocol patient required to have LDL on file within past year. Patient has not had an LDL drawn since 11/02 & a full lipid panel since 11/27. Labwork was already ordered, but about to , so I reordered it. Please approve if appropriate. Thanks, Jazmin Mckeon Clinical Pharmacist Telepharmacy 06/14/2019, 8:14 AM Pending Prescriptions: Disp Refills glimepiride (AMARYL) 4 MG Tablet [Pharmac*180 Tab1 Sig: TAKE 2 TABLETS BY MOUTH EVERY DAY WITH FIRST MEAL OF THE DAY FOR DIABETES Last Office Visit: 04/27/2019 Next Office Visit: 10/27/2019 Scheduled Provider(s): Monty Dumont MD If no future appointments scheduled, and last appointment is greater than a year ago, please schedule patient for a follow-up appointment Last date the medication was ordered: 12/21/18 Pharmacy: [id number] [address] [place] Is this request for a controlled [...] Cardiology Azael Lozano MD [address] [place] [address] [phone] 10/27/2019 Office Visit Family Medicine Monty Dumont MD [address] [place] [address] [phone] Scheduled Orders Name Type Priority Associated Diagnoses Orde r Schedule LIPID PANEL WITH DIRECT LDL IF TRIGLYCERIDE IS ELEVATED Lab Routine Encounter for long-term (current) use of medications Expected: 06/21/2019 (Approximate), Expires: 06/14/2020 Health Maintenance Due Date Last Done Comments Zoster Vaccines (1 of 2) 1985 DIABETES-HGBA1C EVERY 6 MONTHS 07/15/2019 01/12/2019, 03/20/2018, 05/01/2017, Additional history exists CKD GFR USE SMARTSET 12835 10/27/201904/27, 03/20/2018, 04/07/2017, Additional history exists CKD HGB USE SMARTSET 84628 04/27/202004/27, 03/20/2018, 04/07/2017, Additional history exists CKD PHOS USE SMARTSET 63578 04/27/2020 04/27/2019, 1 05/20/2017 DIABETES-FOOT EXAM 04/27/2020 [...] for long-term (current) use of other medications documented in this encounter Advance Directives Documents on File Type Date Recorded Patient Machinery Rigger Expl anation Advanced Directive 11/15/2008 12:00 AM [...] the patient have Health Care Power of Class A Lineman? Yes, not currently available Full Code 09/15/2009 [...]
--- OUTSIDE RECORDS SUMMARY | 2023-02-21 02:49 | External Medical Summary | Summary of Care ---
Author Name Unknown Organization [place] [address] Care Team Providers Care Nursing Technician Name Role Phone Monty Dumont MD Primary Care Provide r Reason for Visit * Reason Comments Abnormal Test Results Encounter Details Date Type Department Care Team Description 04/28/2019 Telephone PHARMACY CALL CENTER [address] [place] [address] [facility] [address] [place] [address] [phone] Abnormal Test Results Allergies No Known Allergiesdocumented as of this encounter (statuses as of 04/28/2019) Medications Medication Sig Dispensed Refills Start Date [...] and 4pm. 90 Tab 5 01/20/2018 Active RANEXA 1000 MG [id number]:Chest pain,Unstable angina (HCC) TAKE 1 TABLET TWICE A DAY 180 Tab 3 06/16/2018 Active nitroglycerin (NITROSTAT) 0.4 MG SUBLIndications:Chroni c coronary artery disease DISSOLVE 1 TABLET UNDER THE TONGUE EVERY 5 MINUTES FOR CHEST PAIN. UP TO 3 DOSES IN 15 MINUTES. 25 Tab 1 11/17/2018 Active glimepiride (AMARYL) 4 MG Tablet TAKE 2 TABLETS BY MOUTH DAILY WITH THE FIRST MEAL OF THE DAY FOR DIABETES 180 Tab 1 12/21/2018 Active metFORMIN (GLUCOPHAGE) 850 MG TabletIndications:DM type 2, goal A1C to be determined (HCC) Take 1 Tab by mouth 3 times a day. 90 Tab 5 12/21/2018 Active clopidogrel (PLAVIX) 75 MG TabletIndications:Aort ocoronary bypass status,Acute coronary syndrome (HCC),Chronic coronary artery disease,Enlarged aorta (HCC) Take 1 Tab by mouth daily. 100 Tab 1 01/15/2019 Active Isosorbide Mononitrate ER 120 MG TB24 Take 1 Tab by mouth daily. In the morning. 90 Tab 1 01/19/2019 Active rosuvastatin (CRESTOR) 20 MG TabletIndications:Dysl ipidemia, goal LDL below 70,Dyslipidemia, goal LDL below 160,Mixed dyslipidemia TAKE 1 TABLET DAILY AT 5 P.M. IN THE AFTERNOON 90 Tab 4 03/04/2019 Active JANUVIA 100 MG TabletIndications:Diab etes mellitus with stage 3 chronic kidney disease (HCC) TAKE 1 TABLET DAILY 90 Tab 0 04/06/2019 Active metoprolol succinate XL (TOPROL XL) 25 MG MW76Qluohaogenx:Chroni c coronary artery disease,Aortocoronary bypass status,HTN, goal [...] mouth daily. 90 Tab 1 04/26/2019 Active documented as of this encounter (statuses as of 04/28/2019) Active Problems Problem Noted Date Hypertensive kidney [...] as of this encounter (statuses as of 04/28/2019) Resolved Problems Problem Noted Date Resolved Date [...] Markers for Patients with Cardiovascular Disease Project #[id number] PI: Francoise Tomlin MD Please call [phone] with study related questions INTERFACED RESULT 11/17/2008 10/17/2011 GENOMICS CARDIO RESEARCH OTHER*[id number] 200806/25/2016 Overview: Renamed Per Clinical Trials Billing Project. Study Titile: Genomic Markers for Patients with Cardiovascular Disease Project #[id number] PI: Francoise Tomlin MD Please call [phone] with study related questions CLASS I-II ANGINA [...] as of this encounter (statuses as of 04/28/2019) Immunizations Name Administration Dates Next Due Pneumococcal [...] Comments:quit 30 yrs ago, wh ile in [employer] for 4 years Alcohol Use Drinks/Week oz/Week Comments Yes a beer per nigh t Sex Assigned at Date Recorded Not on file Job Start Date Occupation Industry Not on file Not on file Not on file Travel History Travel Start Travel End documented as of this encounter Miscellaneous Notes * Telephone Encounter - Columba Bridges LPN - 04/28/2019 2:42 PM EST Patient returned call. Informed of message below. Verbalized understanding. * Telephone Encounter - Julia Santizo OSA - 04/28/2019 2:38 PM EST Reason for patient's call: pt returning call Caller was transferred to Columba at the nurse line. * Telephone Encounter - Carolyne Verde RN - 04/28/2019 1:48 PM EST Called and left message for return call. * Telephone Encounter - Monty Dumont MD - 04/28/2019 1:37 PM EST BP stable Known ckd Nursing, please call and inform pt. I suggest pt follow a low potassium diet and recheck BMP in a week Low potassium diet handout printed to send to pt Lab ordered * Telephone Encounter - Steph Ayala [facility] - 04/28/2019 6:23 AM EST Forwarding abnormal lab work from 04/27 to PCP for review. Kidney function declined and potassium slightly elevated. HgB stable. COMPR METAB PANEL Frida Dt/Tm Resulted Value Low High Status BUN (mg/dL) 04/27/19 9:54A 04/27/19 33* 6 20 F CREATININE (mg/dL) 04/27/19 9:54A 04/27/19 1.5* 0.6 1.2 F E GLOM FILT RATE ( ) 04/27/19 9:54A 04/27/19 41.4* F Comment: If patient is , multiply estimated GFR by 1.159. SODIUM (mmol/L) 04/27/19 9:54A 04/27/19 136 135 146 F POTASSIUM (mmol/L) 04/27/19 9:54A 04/27/19 5.2* 3.5 5.1 F CHLORIDE (mmol/L) 04/27/19 9:54A 04/27/19 96* 98 107 F CO2 (mmol/L) 04/27/19 9:54A 04/27/19 24 22 32 F ANION GAP (mmol/L) 04/27/19 9:54A 04/27/19 16* 7 15 F GLUCOSE (mg/dL) 04/27/19 9:54A 04/27/19 255* 70 120 F ALBUMIN (g/dL) 04/27/19 9:54A 04/27/19 4.6 3.8 5.0 F AST (U/L) 04/27/19 9:54A 04/27/19 27 10 50 F ALKALINE PHOSPHATASE (U/L) 04/27/19 9:54A 04/27/19 45 0 153 F BILIRUBIN, TOTAL (mg/dL) 04/27/19 9:54A 04/27/19 0.5 0 1.2 F CALCIUM (mg/dL) 04/27/19 9:54A 04/27/19 10.2 8.4 10.2 F PROTEIN (g/dL) 04/27/19 9:54A 04/27/19 7.5 6.0 8.3 F ALT (U/L) 04/27/19 9:54A 04/27/19 19 10 50 F HGB Frida Dt/Tm Resulted Value Low High Status HGB (g/dL) 04/27/19 9:54A 04/27/19 12.1* 14.0 16.8 F Thank you, Steph Ayala PharmD. Clinical Pharmacist Pharmacy Refill Call Center 04/28/2019, 6:25 AM documented in this encounter Plan of Treatment Upcoming Encounters Date Type Specialty Care Team Description 09/17/2019 Office Visit Cardiology Azael Lozano MD [address] [place] [address] [phone] 10/27/2019 Office Visit Family Medicine Monty Dumont MD [address] [place] [address] [phone] Scheduled Orders Name Type Priority Associated Diagnoses Orde r Schedule BASIC METAB PANEL, BMP Lab Routine 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) Expected: 04/28/2019 (Approximate), Expires: 04/27/2020 Health Maintenance Due Date Last Done Comments Zoster Vaccines (1 of 2) 1986 *DEPRESSION SCREENING,ANNUAL FOR PTS 12 AND OVER 2014 *BASIC METABOLIC PANEL (BMP) FOR HTN YEARLY 03/24/2019 DIABETES-HGBA1C EVERY 6 MONTHS 07/15/2019 01/12/2019, 03/20/2018, 05/01/2017, Additional history exists CKD GFR USE SMARTSET 17379 10/27/201904/27, 03/20/2018, 04/07/2017, Additional history exists CKD HGB USE SMARTSET 64062 04/27/202004/27, 03/20/2018, 04/07/2017, Additional history exists CKD PHOS USE SMARTSET 31681 04/27/2020 04/27/2019, 1 05/20/2017 DIABETES-FOOT EXAM 04/27/2020 04/27/2019, 1 05/20/2017, 10/24/2016, Additional history exists Yearly B-12 04/27/2020 04/27/2019, 05/01/2017 COLONOSCOPY-EVERY 5 YRS AGES 18-100 03/20/2021 03/20/2016, 04/30/2010, 02/05/2002 DTaP,Tdap,and Td Vaccines (2 - Td) 07/10/2022 07/10/2012 Pneumococcal Vaccine: 65+ Years Completed 01/18/2016, 11/20/2004 Influenza Vaccine (FLU shot) Completed , 03/01/2018, 03/02/2017, Additional history exists MENINGOCOCCAL (MENACTRA) Aged Out No longer eligible based on [...] Documents on File Type Date Recorded 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 Yes, not currently available Full Code 09/15/2009 [...]
--- OUTSIDE RECORDS SUMMARY | 2023-02-21 02:49 | External Medical Summary | Summary of Care ---
Author Name Unknown Organization [place] [address] Care Team Providers Care Supervisor Electric Name Role Phone Monty Dumont MD Primary Care Provide r Reason for Visit * Reason Comments Abnormal Test Results Encounter Details Date Type Department Care Team Description 09/21/2019 Telephone Family Practice [facility] [address] [facility] [place] [address] [place] Smyth PA-C [address] [place], [place] [id number] Abnormal Test Results Allergies No Known Allergiesdocumented as of this encounter (statuses as of 09/21/2019) Medications Medication Sig Dispensed Refills Start Date End Date Status ONE TOUCH ULTRA DEVIIndications:DM type 2, not at goal ([facility]) check daily 1 0 12/11/2005 Active ONE TOUCH ULTRA CONTROL SOLNIndications:DM type 2, not at goal ([facility]) check daily 1 11 12/11/2005 Active ONE TOUCH ULTRA TEST STRPIndications:DM type 2, not at goal ([facility]) test daily 1 box 11 12/11/2005 Active ONE TOUCH ULTRASOFT LANCETS MISCIndications:DM type 2, not at goal ([facility]) test daily 1 box 11 12/11/2005 [...] metoprolol succinate XL (TOPROL XL) 25 MG CN55Aszbnmgnvkz:Chroni c coronary artery disease,Aortocoronary bypass status,HTN, goal [...] 1 04/26/2019 Active Ranolazine ER 1000 MG GT41Refmsakjhlk:Chest pain,Unstable angina (HCC) TAKE 1 TABLET TWICE [...] Aortic root 4.4 cm 4.29.2009 echo at [facility]. HTN, goal below 130/80 06/14/2009 2 Overview: Per HTN Taxonomy. Type 2 diabetes mellitus wit h hemoglobin A1c goal of less than 7.0% 03/02/2009 03/27/2011 Overview: Modified per Diabetes protocol #14. ICD-10 update of inactive term EXAMINATION OF PARTICIPANT IN CLINICAL TRIAL-gen omics 11/17/2008 09/01/2009 Overview: Renamed Per Clinical Trials Billing Project. Study Titile: Genomic Markers for Patients with Cardiovascular Disease Project #[id number] PI: Francoise Tomlin MD Please call [phone] with study related questions INTERFACED RESULT 11/17/2008 10/17/2011 GENOMICS CARDIO RESEARCH OTHER*[id number] 200806/25/2016 Overview: Renamed Per Clinical Trials Billing Project. Study Titile: Genomic Markers for Patients with Cardiovascular Disease Project #[id number] PI: Francoise Tomlin MD Please call [phone] with study related questions CLASS I-II ANGINA [...] Comments:quit 30 yrs ago, wh ile in [place] for 4 years Alcohol Use Drinks/Week oz/Week [...] Medicine Monty Dumont MD [address] [place] [address] [phone] 06/21/2020 Office Visit Cardiology Azael Lozano MD [address] [place] [address] [phone] Health Maintenance Due Date Last Done Comments Zoster Vaccines (1 of 2) 1985 DIABETES-HGBA1C EVERY 6 MONTHS 07/15/2019 01/12/2019, 03/20/2018, 05/01/2017, Additional history exists CKD GFR USE SMARTSET 39907 03/22/202009/19, 04/27/2019, 03/20/2018, Additional history exists CKD PHOS USE SMARTSET 02871 04/27/2020 04/27/2019, 1 05/20/2017 DIABETES-FOOT EXAM 04/27/2020 04/27/2019, 1 05/20/2017, 10/24/2016, Additional history exists Yearly B-12 04/27/2020 04/27/2019, 05/01/2017 CKD HGB USE SMARTSET 21149 09/19/202009/19, 04/27/2019, 03/20/2018, Additional history exists COLONOSCOPY-EVERY [...] Documents on File Type Date Recorded Patient Global Category Manager Expl anation Advanced Directive 11/15/2008 12:00 [...] patient have Health Care Power of Nursing Officer? Yes, not currently available Full Code 09/15/2009 [...]
--- OUTSIDE RECORDS SUMMARY | 2023-02-21 02:49 | External Medical Summary | Summary of Care ---
Author Name Unknown Organization [place] [address] Care Team Providers Care Microwave Technician Name Role Phone Monty Maria MD Primary Care Provide r Reason for Visit * Reason Comments Medication Refill Encounter Details Date Type Department Care Team Description 08/13/2019 Refill Family Practice [facility] [address] [facility] [place] [address] Monty Maria MD [address] [place] [address] [phone] Allergies No Known Allergiesdocumented as of this encounter (statuses as of 08/13/2019) Medications Medication Sig Dispensed Refills Start Date [...] LANCETS MISCIndications:DM type 2, not at goal ([facility]) test daily 1 box 11 12/11/2005 Active [...] 1 01/15/2019 Active rosuvastatin (CRESTOR) 20 MG TabletIndications:D yslipidemia, goal LDL below 70,Dyslipidemia, goal LDL below 160,Mixed dyslipidemia TAKE 1 TABLET DAILY AT 5 P.M. IN THE AFTERNOON 90 Tab 4 03/04/2019 Active metoprolol succinate XL (TOPROL XL) 25 MG XV52Gsfcxeaqgpj:Chr onic coronary artery disease,Aortocorona ry bypass status,HTN, [...] 1 04/26/2019 Active Ranolazine ER 1000 MG TP59Wsitrqgpefs:Trini st pain,Unstable angina (HCC) TAKE 1 TABLET [...] the morning. 90 Tab 1 08/13/2019 Active Isosorbide Mononitrate ER 120 MG TB24 Take 1 Tab by mouth daily. In the morning. 90 Tab 1 01/19/2019 08/13/2019 Discontinued (Refill) documented as of this encounter (statuses as of 08/13/2019) Active Problems Problem Noted Date Hypertensive kidney [...] as of this encounter (statuses as of 08/13/2019) Resolved Problems Problem Noted Date Resolved Date [...] Markers for Patients with Cardiovascular Disease Project #[id number] PI: Francoise Tomlin MD Please call [phone] with study related questions INTERFACED RESULT 11/17/2008 10/17/2011 GENOMICS CARDIO RESEARCH OTHER*[id number] 200806/25/2016 Overview: Renamed Per Clinical Trials Billing Project. Study Titile: Genomic Markers for Patients with Cardiovascular Disease Project #[id number] PI: Francoise Tomlin MD Please call [phone] with study related questions CLASS I-II ANGINA [...] as of this encounter (statuses as of 08/13/2019) Immunizations Name Administration Dates Next Due Pneumococcal [...] Comments:quit 30 yrs ago, wh ile in [place] for 4 years Alcohol Use Drinks/Week oz/Week Comments Yes a beer per normanh t Sex Assigned at Date Recorded Not on file Job Start Date Occupation Industry Not on file Not on file Not on file Travel History Travel Start Travel End documented as of this encounter Miscellaneous Notes * Telephone Encounter - Monty Maria MD - 08/13/2019 11:00 AM EDT Signed Prescriptions: Disp Refills Isosorbide Mononitrate ER 120 MG TB24 90 Tab 1 Sig: Take 1 Tab by mouth daily. In the morning. Authorizing Provider: MONTY MARIA * Telephone Encounter - Silvia Sanchez OSA - 08/13/2019 10:56 AM EDT Pending Prescriptions: Disp Refills Isosorbide Mononitrate ER 120 MG TB24 90 Tab 1 Sig: Take 1 Tab by mouth daily. In the morning. Last Office Visit: 04/27/2019 Next Office Visit: 10/27/2019 Scheduled Provider(s): Monty Maria MD If no future appointments scheduled, and last appointment is greater than a year ago, please schedule patient for a follow-up appointment Last date the medication was ordered: 05/23/19 Pharmacy: [facility] [id number] [place] Is this request for a [...] Azael Lozano MD [address] [place] [address] [phone] 10/27/2019 Office Visit Family Medicine Monty Maria MD [address] [address] [phone] Health Maintenance Due Date Last Done Comments Zoster Vaccines (1 of 2) 1985 DIABETES-HGBA1C EVERY 6 MONTHS 07/15/2019 01/12/2019, 03/20/2018, 05/01/2017, Additional history exists CKD GFR USE SMARTSET 20596 10/27/201904/27, 03/20/2018, 04/07/2017, Additional history exists CKD HGB USE SMARTSET 20964 04/27/202004/27, 03/20/2018, 04/07/2017, Additional history exists CKD PHOS USE SMARTSET 62325 04/27/2020 04/27/2019, 1 05/20/2017 DIABETES-FOOT EXAM 04/27/2020 [...] Documents on File Type Date Recorded 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 Yes, not currently available Full Code 09/15/2009 [...]
--- OUTSIDE RECORDS SUMMARY | 2023-02-21 02:49 | External Medical Summary ---
Author Name Unknown Address [address] [id number] Phone Organization K01:[facility] [address] [id number] Laboratory Report Ordering Provider Test Date Status CROW MERRILL 04/27/2019 09:54:00 Final Observation Date Value Abnormality Reference Status Vitamin B12 04/27/2019 20:46 [phone] F inal Performing Location [facility] [address] [facility] [address]
--- OUTSIDE RECORDS SUMMARY | 2023-02-21 02:49 | External Medical Summary | Summary of Care ---
Author Name Unknown Organization [place] [address] Care Team Providers Care Cash Applications Manager Name Role Phone Monty Dumont MD Primary Care Provide r Reason for Visit * Reason Comments eRx-Medication Refill Encounter Details Date Type Department Care Team Description 07/04/2019 Refill Family Practice [facility] [address] [place] [address] Sylvia Rojas MD [address] [facility] [place] [address] [phone] 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) Allergies No Known Allergiesdocumented as of this encounter (statuses as of 07/05/2019) Medications Medication Sig Dispensed Refills Start Date [...] metoprolol succinate XL (TOPROL XL) 25 MG NR62Glboajodxoh:Chroni c coronary artery disease,Aortocoronary bypass status,HTN, goal [...] 1 04/26/2019 Active Ranolazine ER 1000 MG SP18Dtyqiooermi:Chest pain,Unstable angina (HCC) TAKE 1 TABLET TWICE [...] mouth daily. 90 Tab 1 07/05/2019 Active documented as of this encounter (statuses as of 07/05/2019) Active Problems Problem Noted Date Hypertensive kidney [...] as of this encounter (statuses as of 07/05/2019) Resolved Problems Problem Noted Date Resolved Date [...] Markers for Patients with Cardiovascular Disease Project #[id number] PI: Francoise Tomlin MD Please call [phone] with study related questions INTERFACED RESULT 11/17/2008 10/17/2011 GENOMICS CARDIO RESEARCH OTHER*[id number] 200806/25/2016 Overview: Renamed Per Clinical Trials Billing Project. Study Titile: Genomic Markers for Patients with Cardiovascular Disease Project #[id number] PI: Francoise Tomlin MD Please call [phone] with study related questions CLASS I-II ANGINA [...] as of this encounter (statuses as of 07/05/2019) Immunizations Name Administration Dates Next Due Pneumococcal [...] Comments:quit 30 yrs ago, wh ile in [place] for 4 years Alcohol Use Drinks/Week oz/Week Comments Yes a beer per contre[place] t Sex Assigned at Date Recorded Not on file Job Start Date Occupation Industry Not on file Not on file Not on file Travel History Travel Start Travel End documented as of this encounter Miscellaneous Notes * Telephone Encounter - Monty Dumont MD - 07/05/2019 10:42 AM EST Signed Prescriptions: Disp Refills SITagliptin (JANUVIA) 50 MG Tablet 90 Tab 1 Sig: Take 1 Tab by mouth daily. Authorizing Provider: MONTY DUMONT Refused Prescriptions: Disp Refills JANUVIA 100 MG Tablet [Pharmacy Med Name: *90 Tab 1 Sig: TAKE 1 TABLET DAILY Refused By: GISSELL VANN Reason for Refusal: Dose needs clar ification * Telephone Encounter - Gissell Vann [facility] - 07/05/2019 10:08 AM EST Pending Prescriptions: Disp Refills SITagliptin (JANUVIA) 50 MG Tablet 90 Tab 1 Sig: Take 1 Tab by mouth daily. Refused Prescriptions: Disp Refills JANUVIA 100 MG Tablet [Pharmacy Med Name: *90 Tab 1 Sig: TAKE 1 TABLET DAILY Refused By: GISSELL VANN Reason for Refusal: Dose needs clarification * Telephone Encounter - Gissell Vann [facility] - 07/05/2019 10:03 AM EST Request for januvia 100 mg Patients last GFR was 41.4 50 mg daily is recommended dose for GFR of 30-45 Pended 50 mg if agreeable to change; if so, please cancel 100 mg in profile. Thanks, Gissell Vann [facility] Clinical Pharmacist Telepharmacy [phone] 07/05/2019, 10:06 AM * Telephone Encounter - Gissell Vann RPh - 07/05/2019 9:59 AM EST Pending Prescriptions: Disp Refills JANUVIA 100 MG Tablet [Pharmacy Med Name:*90 Tab 4 Sig: TAKE 1 TABLET DAILY Last Office Visit: 04/27/2019 Next Office Visit: 10/27/2019 Scheduled Provider(s): Monty Dumont MD If no future appointments scheduled, and last appointment is greater than a year ago, please schedule patient for a follow-up appointment Last date the medication was ordered: 04/06/2019 Pharmacy: [facility] Is this request for a controlled [...] Cardiology Azael Lozano MD [address] [place] [address] [phone] 10/27/2019 Office Visit Family Medicine Monty Dumont MD [address] [place] [address] [phone] Health Maintenance Due Date Last Done Comments Zoster Vaccines (1 of 2) 1985 DIABETES-HGBA1C EVERY 6 MONTHS 07/15/2019 01/12/2019, 03/20/2018, 05/01/2017, Additional history exists CKD GFR USE SMARTSET 48605 10/27/201904/27, 03/20/2018, 04/07/2017, Additional history exists CKD HGB USE SMARTSET 34843 04/27/202004/27, 03/20/2018, 04/07/2017, Additional history exists CKD PHOS USE SMARTSET 88558 04/27/2020 04/27/2019, 1 05/20/2017 DIABETES-FOOT EXAM 04/27/2020 [...] Documents on File Type Date Recorded 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 Yes, not currently available Full Code [...]
--- OUTSIDE RECORDS SUMMARY | 2023-02-21 02:49 | External Medical Summary | Summary of Care ---
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 90 Tab 1 07/05/2019 Active JANUVIA 100 MG TabletIndications:D iabetes mellitus with stage 3 chronic kidney disease (HCC) TAKE 1 TABLET DAILY 90 Tab 0 04/06/2019 07/28/2019 Discontinued (Medication/ Dose Changed) documented as of this encounter (statuses as of 07/28/2019) Active Problems Problem Noted Date Hypertensive kidney [...] as of this encounter (statuses as of 07/28/2019) Resolved Problems Problem Noted Date Resolved Date [...] Markers for Patients with Cardiovascular Disease Project #[id number] PI: Francoise Tomlin MD Please call [phone] with study related questions INTERFACED RESULT 11/17/2008 10/17/2011 GENOMICS CARDIO RESEARCH OTHER*[id number] 200806/25/2016 Overview: Renamed Per Clinical Trials Billing Project. Study Titile: Genomic Markers for Patients with Cardiovascular Disease Project #[id number] PI: Francoise Tomlin MD Please call [phone] with study related questions CLASS I-II ANGINA [...] as of this encounter (statuses as of 07/28/2019) Immunizations Name Administration Dates Next Due Pneumococcal [...] Comments:quit 30 yrs ago, wh ile in [employer] for 4 years Alcohol Use Drinks/Week oz/Week Comments Yes a beer per nigh t Sex Assigned at Date Recorded Not on file Job Start Date Occupation Industry Not on file Not on file Not on file Travel History Travel Start Travel End documented as of this encounter Miscellaneous Notes * Addendum Note - Gissell Fuller [facility] - 07/28/2019 6:45 AM EDT Addended by: GISSELL FULLER on: 07/28/2019 06:45 AM Modules accepted: Orders * Telephone Encounter - Monty Maria MD - 07/05/2019 10:42 AM EST Signed Prescriptions: Disp Refills SITagliptin (JANUVIA) 50 MG Tablet 90 Tab 1 Sig: Take 1 Tab by mouth daily. Authorizing Provider: MONTY MARIA Refused Prescriptions: Disp Refills JANUVIA 100 MG Tablet [Pharmacy Med Name: *90 Tab 1 Sig: TAKE 1 TABLET DAILY Refused By: GISSELL FULLER Reason for Refusal: Dose needs clar ification * Telephone Encounter - Gissell Fuller [facility] - 07/05/2019 10:08 AM EST Pending Prescriptions: Disp Refills SITagliptin (JANUVIA) 50 MG Tablet 90 Tab 1 Sig: Take 1 Tab by mouth daily. Refused Prescriptions: Disp Refills JANUVIA 100 MG Tablet [Pharmacy Med Name: *90 Tab 1 Sig: TAKE 1 TABLET DAILY Refused By: GISSELL FULLER Reason for Refusal: Dose needs clarification * Telephone Encounter - Gissell Fuller [facility] - 07/05/2019 10:03 AM EST Request for januvia 100 mg Patients last GFR was 41.4 50 mg daily is recommended dose for GFR of 30-45 Pended 50 mg if agreeable to change; if so, please cancel 100 mg in profile. Thanks, Gissell Fuller [facility] Clinical Pharmacist Telepharmacy [phone] 07/05/2019, 10:06 AM * Telephone Encounter - Gissell Fuller [facility] - 07/05/2019 9:59 AM EST Pending Prescriptions: [...] date the medication was ordered: 04/06/2019 Pharmacy: [facility]-[address] Is this request for a controlled [...] Cardiology Azael Lozano MD [address] [place] [address] [phone] 10/27/2019 Office Visit Family Medicine Monty Maria MD [address] [place] [address] [phone] Health Maintenance Due Date Last Done Comments Zoster Vaccines (1 of 2) 1985 DIABETES-HGBA1C EVERY 6 MONTHS 07/15/2019 01/12/2019, 03/20/2018, 05/01/2017, Additional history exists CKD GFR USE SMARTSET 22798 10/27/201904/27, 03/20/2018, 04/07/2017, Additional history exists CKD HGB USE SMARTSET 13531 04/27/202004/27, 03/20/2018, 04/07/2017, Additional history exists CKD PHOS USE SMARTSET 92207 04/27/2020 04/27/2019, 1 05/20/2017 DIABETES-FOOT EXAM 04/27/2020 [...] Documents on File Type Date Recorded Patient Football Scout Expl anation Advanced Directive 11/15/2008 12:00 AM [...] the patient have Health Care Power of Mine Utility Operator? Yes, not currently available Full Code [...]
--- OUTSIDE RECORDS SUMMARY | 2023-02-21 02:49 | External Medical Summary ---
Author Name Unknown Address [address] [facility] [place] [address] Phone Organization K0G:[facility] [employer] [address] [place] [address] Laboratory Report Ordering Provider Test Date Status CROW MERRILL 04/27/2019 09:54:00 Final Observation Date Value Abnormality Reference Status BUN 04/27/2019 14:24 33 Above high normal 6-20 Final Creatinine 04/27/2019 14:24 1.5 Above high normal 0.6- 1.2 Final E Glom Filt Rate 04/27/2019 14:24 41.4 Below low normal >60 Final Performing Location [facility] [employer] [address] [facility] [place] [address]
--- OUTSIDE RECORDS SUMMARY | 2023-02-21 02:49 | External Medical Summary ---
Author Name Unknown Address [facility] [address] [place] [id number] Phone Organization K01:[place] [address] [place] [id number] Laboratory Report Ordering Provider Test Date Status MYRON GRIMM 09/20/2019 16:21:00 Final Observation Date Value Abnormality Reference (Units ) Status BUN 09/20/2019 21:39 35 Above high normal 6-20 (mg/dL) Final Creatinine 09/20/2019 21:39 1.6 Above high normal 0.6- 1.2 (mg/dL) Final E Glom Filt Rate 09/20/2019 21:39 40.2 Below low normal >60 Final Performing Location [place] [address] [address] [facility] [address]
--- OUTSIDE RECORDS SUMMARY | 2023-02-21 02:49 | External Medical Summary | Summary of Care ---
Author Name Unknown Organization [place] [address] Care Team Providers Care Coyote Hunter Name Role Phone Monty Dumont MD Primary Care Provide r Reason for Visit * Reason Comments Follow Up labs Encounter Details Date Type Department Care Team Description 04/27/2019 Office Visit Family Practice [facility] [address] [place] [address] Monty Dumont MD 132 [facility] [place] [address] [phone] DM type 2 nursing care encounter (HCC)*; Hypertensive kidney disease with chronic kidney disease stage III ([facility]); 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); 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; DM type 2, goal A1C to be determined ([facility]); HTN, goal below 140/90; Dyslipidemia, goal LDL below 70; S/P angioplasty with stent; Aortocoronary bypass status; OP CABG X 3; Chronic coronary artery disease; Encounter for long-term (current) use of medications Allergies No Known Allergiesdocumented as of this encounter (statuses as of 04/27/2019) Medications Medication Sig Dispensed Refills Start Date [...] Tab 5 01/20/2018 Active RANEXA 1000 MG CG30Pneyfphlqjy:Chest pain,Unstable angina (HCC) TAKE 1 TABLET TWICE [...] metoprolol succinate XL (TOPROL XL) 25 MG BM57Rqpmijzaxbj:Chroni c coronary artery disease,Aortocoronary bypass status,HTN, goal [...] as of this encounter (statuses as of 04/27/2019) Active Problems Problem Noted Date Hypertensive kidney [...] as of this encounter (statuses as of 04/27/2019) Resolved Problems Problem Noted Date Resolved Date HTN, GOAL BELOW 140/80 01/06/2012 6 Overview: Per HTN Protocol #27. Unstable angina 11/23/2011 10/24/2016 Chest pain 11/22/2011 10/24/2016 NSTEMI (non-ST elevated myocardial infarction) 0 11/22/2011 12/30/2016 Acute coronary syndrome 09/15/2009 10/25/19 17 Enlarged aorta 09/15/2009 04/27/2019 Overview: Aortic root 4.4 cm 4.29.2009 echo at [facility]. HTN, goal below 130/80 06/14/2009 [...] Markers for Patients with Cardiovascular Disease Project #[id number] PI: Ricardo Yang MD Please call [phone] with study related questions INTERFACED RESULT 11/17/2008 10/17/2011 GENOMICS CARDIO RESEARCH OTHER*[id number] 200806/25/2016 Overview: Renamed Per Clinical Trials Billing Project. Study Titile: Genomic Markers for Patients with Cardiovascular Disease Project #[id number] PI: Ricardo Yang MD Please call [phone] with study related questions CLASS I-II ANGINA [...] as of this encounter (statuses as of 04/27/2019) Immunizations Name Administration Dates Next Due Pneumococcal [...] Comments:quit 30 yrs ago, wh ile in [employer] for 4 years Alcohol Use Drinks/Week oz/Week Comments Yes a beer per nigh t Sex Assigned at Date Recorded Not on file Job Start Date Occupation Industry Not on file Not on file Not on file Travel History Travel Start Travel End documented as of this encounter Last Filed Vital Signs Vital Sign Reading Time Taken Comments Blood Pressure 128/60 04/27/2019 9:22 AM EST Pulse 78 04/27/2019 9:22 AM EST Temperature 35.9 C (96.7 F) 04/27/2019 9:22 AM ES T Respiratory Rate 16 04/27/2019 9:22 AM EST Oxygen Saturation - - Inhaled Oxygen Concentration - - Weight 71.2 kg (157 lb) 04/27/2019 9:22 AM EST Height 180.3 cm (5' 11") 04/27/2019 9:22 AM EST Body Mass Index 21.9 04/27/2019 9:22 AM EST documented in this encounter Patient Instructions * Patient Instructions* Tahira Kaur LPN - 04/27/2019 9:26 AM EST Diabetes: Keeping Feet Healthy Inspect [...] calluses yourself. Talk to your doctor or library technology instructor (a doctor who specializes in foot care) [...] the area doesnt appear to be healing. [id number] [employer], [address] [place] [address], [place] [address]. All rights reserved. This information is not intended as a substitute for professional medical care. Always follow your healthcare professional's instructions. documented in this encounter Progress Notes * Monty Dumont MD - 04/27/2019 12:12 PM EST 04/27/2019 Author: Monty Dumont MD Assessment/Plan There are no discontinued medications. 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 Plan: CANCELED: VITAMIN B12, CANCELED: VITAMIN B12 (E11.9) DM type 2, goal A1C to be determined ([facility]) Plan: (I10) HTN, goal below 140/90 Plan: (E78.5) Dyslipidemia, goal LDL below 70 Plan: (Z95.820) S/P angioplasty with stent Plan: (Z95.1) Aortocoronary bypass status Plan: (Z09) OP CABG X 3 Plan: (I25.10) Chronic coronary artery disease Plan: (Z79.899) Encounter for long-term (current) use of medications Plan: COMPR METAB PANEL, VITAMIN B12 No med changes Patient and or guardian communicated understanding and agreement of treatment plan including medications and there common side effects if indicated. All questions answered. Follow-up: Return in about 6 months (around 10/27/2019), or if symptoms worsen or fail to improve. |Check-out note: Update pcp to me CC/HPI: Dirk Garcia is a 83 year old male Chief Complaint Patient presents with Follow Up labs Brief Clinical History Mr. Garcia is an 83 year old man last seen in Family Medicine today (04-27-19). He has h/o chronic diabetic complication and CKD stage 3. Nursing Notes: Tahira Kaur LPN 04/27/19 0927 Signed Pt here for f/u, has no new issues at this time Here for recheck The patient denies the following CAD symptoms: chest pain, chest pressure, angina, PIRES, SOB and nausea. Hypertension Follow Up [...] denies polyphagia, polydipsia and frequent urination. . Problem list: Patient Active Problem List Diagnosis [...] disease stage III (HCC) I12.9, N18.3 Past Medical History: Past Medical History: Diagnosis Date Aortocoronary bypass status 12/06/2008 Benign neoplasm of colon 01/18 Chronic coronary artery disease 11/17/2008 Coronary atherosclerosis of inupiat coronary artery DM type 2, goal A1c below 7 DM type 2, goal A1C to be determined (HCC) Dyslipidemia, goal LDL below 160 Dyslipidemia, goal LDL below 70 05/01/2009 Per Lipid Taxonomy. Enlarged aorta (HCC) 09/15/2009 Aortic root 4.4 cm 4.29.2010 echo at [facility]. HTN, goal below 130/80 06/14/2009 Per HTN Taxonomy. HTN, goal below 140/90 S/P angioplasty with stent drug eluting 09/15/09 Plavix x 12m Past Surgical History: Past Surgical History: Procedure Laterality Date CABG, ARTERIAL, SINGLE 11/25/08 CORONARY ARTERY BYPASS GRAFT USING ARTERY 1 GRAFT performed by MAXIMILIANO CASILLAS at [facility] CABG, ARTERY-VEIN, TWO 11/25/08 CORONARY ARTERY BYPASS GRAFT ARTERIAL AND VENOUS 2 GRAFTS performed by MAXIMILIANO CASILLAS at [facility] CATHETERIZE LEFT HEART THRU SKIN Cardiac Catheterization, Left Heart CATHETERIZE LEFT HEART THRU SKIN 11/17/08 LEFT HEART CATH, PERCUTANEOUS [place] DRAKE MALONE [place] [facility] [place]TER[place] LEFT HEART THRU SKIN 09/15/09 LEFT HEART CATH, PERCUTANEOUS performed [place] RICARDO YANG [place] [facility] COLONOSCOPY, W/BIOPSY jan 2002 adenomatous and hyperplastic polyps, next in jan 2005 CORONARY ANGIOGRAPHY W/LEFT HEART CATH 11/25/2011 CORONARY ANGIOGRAPHY W/LEFT HEART CATH performed by Jermaine Leary DO [place] [facility] [place] [place] DESTRUCTION PREMALIGNANT LESION 1ST about 2001 facial lesion. ENDO,VIDEO ASSIST HARVEST WALE 11/25/08 ENDOSCOPY VIDEO ASSISTED HARVEST VEIN performed by MAXIMILIANO CASILLAS at [facility] REMOVAL OF APPENDIX age 21 Medication List: Current Outpatient Medications Medication Sig Dispense Refill amLODIPine (NORVASC) 5 MG Tablet Take 1 [...] BY MOUTH EVERY DAY 180 Tab 1 JANUVIA 100 MG Tablet TAKE 1 TABLET DAILY 90 Tab 0 rosuvastatin (CRESTOR) 20 MG Tablet TAKE 1 TABLET DAILY AT 5 P.M. IN THE AFTERNOON 90 Tab 4 Isosorbide Mononitrate ER 120 MG TB24 Take 1 Tab by mouth daily. In the morning. 90 Tab 1 clopidogrel (PLAVIX) 75 MG Tablet Take 1 Tab by mouth daily. 100 Tab 1 glimepiride (AMARYL) 4 MG Tablet TAKE 2 TABLETS BY MOUTH DAILY WITH THE FIRST MEAL OF THE DAY FOR DIABETES 180 Tab 1 metFORMIN (GLUCOPHAGE) 850 MG Tablet Take 1 Tab by mouth 3 times a day. 90 Tab 5 nitroglycerin (NITROSTAT) 0.4 MG SUBL DISSOLVE 1 TABLET UNDER THE TONGUE EVERY 5 MINUTES FOR CHEST PAIN. UP TO 3 DOSES IN 15 MINUTES. 25 Tab 1 RANEXA 1000 MG TB12 TAKE 1 TABLET TWICE A DAY 180 Tab 3 isosorbide dinitrate (ISORDIL) 20 MG Tablet Take [...] and social history reviewed and updated in [facility] EHR ROS: No nausea, vomiting or diarrhea. No chest pain or shortness of breath, No fatigue. No fevers, chillor night sweats. All other ROS examined in detail and are negative except as documented in HPI. Vitals: BP 128/60 | Pulse 78 | Temp (Src) 96.7 (Tympanic) | Resp 16 | Ht 5' 11" (1.803m) | Wt 157 lbs (71.215kg) | BMI 21.9 kg/m | BSA 1.89 m BMI: 21.9 kg/m Exam: General: alert, healthy and no [...] at the top of the page * Tahira Kaur LPN - 04/27/2019 9:24 AM EST DM Foot Exam completed today. Provider aware. Tahira Kaur LPN Socks and Shoes Removed for Annual Diabetic [...] monofilament pressure on plantar surface of foot documented in this encounter Nursing Notes * Tahira Kaur LPN - 04/27/2019 9:17 AM EST Pt here for f/u, has no new issues at this time documented in this encounter Plan of Treatment Upcoming Encounters Date Type Specialty Care Team Description 09/17/2019 Office Visit Cardiology Azael Lozano MD [address] [place] [place] [address] [phone] 10/27/2019 Office Visit Family Medicine Monty Dumont MD [address] [place] [place] [address] [phone] Pending Results Name Type Priority Associated Diagnoses Date /Time PHOSPHORUS Lab Routine Hypertensive kidney disease with chronic kidney disease stage III (HCC) 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) 04/27/2019 9:54 AM EST COMPR METAB PANEL Lab Routine Encounter for long-term (current) use of medications 04/27/2019 9:54 AM EST VITAMIN B12 Lab Routine Encounter for long-term (current) use of medications 04/27/2019 9:54 AM EST Scheduled Orders Name Type Priority Associated Diagnoses Orde r Schedule PHOSPHORUS Lab Routine Hypertensive kidney disease with chronic kidney disease stage III (HCC) 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) Expected: 04/27/2019 (Approximate), Expires: 04/26/2020 Health Maintenance Due Date Last Done Comments Zoster Vaccines (1 of 2) 1986 *DEPRESSION SCREENING,ANNUAL FOR PTS 12 AND OVER 2014 Yearly B-12 05/01/2018 05/01/2017 CKD GFR USE SMARTSET 12055 09/17/201803/20, 04/07/2017, 10/24/2016, Additional history exists Influenza Vaccine (FLU shot) (#1) 2019 03/01/2018, 03/02/2017, 02/16/2013, Additional history exists CKD HGB USE SMARTSET 60064 03/20/201903/20, 04/07/2017, 01/01/2017, Additional history exists CKD PHOS USE SMARTSET 43134 03/20/2019 03/20/2018 DIABETES-FOOT EXAM 03/20/2019 03/20/2018, 0 10/24/2016, 01/18/2016, Additional history exists *BASIC METABOLIC PANEL (BMP) FOR HTN YEARLY 03/24/2019 DIABETES-HGBA1C EVERY 6 MONTHS 07/15/2019 01/12/2019, 03/20/2018, 05/01/2017, Additional history exists COLONOSCOPY-EVERY 5 YRS AGES 18-100 03/20/2021 03/20/2016, 04/30/2010, 02/05/2002 DTaP,Tdap,and Td Vaccines (2 - Td) 07/10/2022 07/10/2012 Pneumococcal Vaccine: 65+ Years Completed 01/18/2016, 11/20/2004 MENINGOCOCCAL (MENACTRA) Aged Out No longer eligible based on patient's age to complete this topic documented as of this encounter Implants Not on filedocumented as of this encounter Procedures Procedure Name Priority Date/Time Associated Diagnosis Comments HGB Routine 04/27/2019 9:54 AM EST Hypertensive kidney disease with chronic kidney disease stage III (HCC) 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) documented in this encounter Results * HGB (04/27/2019 9:54 AM EST) HGB 12.1(L) 14.0 - 16.8 g/dL [facility] Specimen Performing Organization Address City/State/[facility] Phone Number [facility], [address] [place] [address] documented in this encounter Visit Diagnoses Diagnosis DM type 2 nursing care encounter (HCC)- Primary Type II or unspecified type diabetes mellitus without mention of complication, not stated as uncontrolled Hypertensive kidney disease with chronic kidney disease stage III (HCC) Unspecified hypertensive kidney disease with chronic kidney disease stage I through stage IV, or unspecified 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) Type II or unspecified type diabetes mellitus with renal manifestations, not stated as uncontrolled 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 DM type 2, goal A1C to be determined ([facility]) Type II or unspecified type diabetes mellitus without mention of complication, not stated as uncontrolled HTN, goal below 140/90 Unspecified essential hypertension Dyslipidemia, goal LDL below 70 Other and unspecified hyperlipidemia S/P angioplasty with stent Postsurgical percutaneous transluminal coronary angioplasty status Aortocoronary bypass status Postsurgical aortocoronary bypass status OP CABG X 3 Follow-up examination, following other surgery Chronic coronary artery disease Coronary atherosclerosis of unspecified type of vessel, inupiat or graft Encounter for long-term (current) use of medications Encounter for long-term (current) use of other medications documented in this encounter Advance Directives Documents on File Type Date Recorded Patient Cardiac Tech Expl anation Advanced Directive 11/15/2008 12:00 [...] the patient have Health Care Power of Oxyacetylene Cutter? Yes, not currently available Full Code [...]
--- OUTSIDE RECORDS SUMMARY | 2023-02-21 02:49 | External Medical Summary ---
Author Name Unknown Address [address] [place] [address] [place] [address] Phone Organization K0G:[employer] [address] [place] [address] [place] [address] Laboratory Report Ordering Provider Test Date Status CROW MERRILL 04/27/2019 09:54:00 Final Observation Date Value Abnormality Reference Status Hemoglobin 04/27/2019 10:14 12.1 Below low normal 14.0- 16.8 Final Performing Location [facility]ol[facility] [place] [address]
--- OUTSIDE RECORDS SUMMARY | 2023-02-21 02:49 | External Medical Summary | Summary of Care ---
Author Name Unknown Organization [place] [address] Care Team Providers Care Hand Icer Name Role Phone Monty Dumont MD Primary Care Provide r Reason for Visit * Reason Comments eRx-Medication Refill Encounter Details Date Type Department Care Team Description 06/11/2019 Refill Cardiology, [facility] [address] [facility] [place] [address] Sushila Lozano MD 132 [place] [address] [phone] Chest pain; Unstable angina (HCC) Allergies No Known Allergiesdocumented as of this encounter (statuses as of 06/11/2019) Medications Medication Sig Dispensed Refills Start Date [...] 1 12/21/2018 Active metFORMIN (GLUCOPHAGE) 850 MG TabletIndications: DM [...] metoprolol succinate XL (TOPROL XL) 25 MG [id number]:Ch ronic coronary artery disease,Aortocoron jovanna bypass status,HTN, [...] 1 04/26/2019 Active Ranolazine ER 1000 MG [id number]:Ch est pain,Unstable angina (HCC) TAKE 1 TABLET TWICE A DAY 180 Tab 4 06/11/2019 Active RANEXA 1000 MG [id number]:Ch est pain,Unstable angina (HCC) TAKE 1 TABLET TWICE A DAY 180 Tab 3 06/16/2018 06/11/2019 Discontinued documented as of this encounter (statuses as of 06/11/2019) Active Problems Problem Noted Date Hypertensive kidney [...] as of this encounter (statuses as of 06/11/2019) Resolved Problems Problem Noted Date Resolved Date HTN, GOAL BELOW 140/80 01/06/2012 6 Overview: Per HTN Protocol #27. Unstable angina 11/23/2011 10/24/2016 Chest pain 11/22/2011 10/24/2016 NSTEMI (non-ST elevated myocardial infarction) 0 11/22/2011 12/30/2016 Acute coronary syndrome 09/15/2009 10/25/19 17 Enlarged aorta 09/15/2009 04/27/2019 Overview: Aortic root 4.4 cm 4.29.2009 echo at [facility]. HTN, goal below 130/80 06/14/2009 [...] Markers for Patients with Cardiovascular Disease Project #[id number] PI: Francoise Tomlin MD Please call [phone] with study related questions INTERFACED RESULT 11/17/2008 10/17/2011 GENOMICS CARDIO RESEARCH OTHER*[id number] 200806/25/2016 Overview: Renamed Per Clinical Trials Billing Project. Study Titile: Genomic Markers for Patients with Cardiovascular Disease Project #[id number] PI: Francoise Tomlin MD Please call [phone] with study related questions CLASS I-II ANGINA [...] as of this encounter (statuses as of 06/11/2019) Immunizations Name Administration Dates Next Due Pneumococcal [...] Comments:quit 30 yrs ago, wh ile in [employer] for 4 years Alcohol Use Drinks/Week oz/Week Comments Yes a beer per contreras t Sex Assigned at Date Recorded Not on file Job Start Date Occupation Industry Not on file Not on file Not on file Travel History Travel Start Travel End documented as of this encounter Miscellaneous Notes * Telephone Encounter - Sushila Lozano MD - 06/11/2019 10:39 AM EST Signed Prescriptions: Disp Refills Ranolazine ER 1000 MG TB12 180 Tab4 Sig: TAKE 1 TABLET TWICE A DAY Authorizing Provider: SUSHILA LOZANO * Telephone Encounter - Bill Tyler LPN - 06/11/2019 8:42 AM EST Pending Prescriptions: Disp Refills Ranolazine ER 1000 MG TB12 [Pharmacy Med *180 Tab4 Sig: TAKE 1 TABLET TWICE A DAY * Telephone Encounter - Bill Tyler LPN - 06/11/2019 8:40 AM EST Pending Prescriptions: Disp Refills Ranolazine ER 1000 MG TB12 [Pharmacy Med *180 Tab4 Sig: TAKE 1 TABLET TWICE A DAY Last Office Visit: 01/28/2019 Next Office Visit: 09/17/2019 Scheduled Provider(s): Sushila Lozano MD Last medication order date: 06/16/2018 Have you choosen a preferred pharm?? 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 Dyslipidemia, goal LDL below 70 E78.5 S/P angioplasty with stent Z95.820 DM type 2, goal A1C to be determined ([facility]) E11.9 HTN, goal below 140/90 I10 Diabetes mellitus with stage 3 chronic kidney disease ([facility]) E11.22, N18.3 History of colon polyps Z86.010 Hypertensive kidney disease with chronic kidney disease stage III ([facility]) I12.9, N18.3 Labs: CREATININE(mg/dL) Frida Dt/Tm Resulted Value Status 04/27/19 9:54A 04/27/19 1.5* FINAL POTASSIUM(mmol/L) Frida Dt/Tm Resulted Value Status 04/27/19 9:54A 04/27/19 5.2* FINAL TSH(uIU/mL) Frida Dt/Tm Resulted Value Status [...] Care Team Description 09/17/2019 Office Visit Cardiology Sushila Lozano MD [address] [place] [address] [phone] 10/27/2019 Office Visit Family Medicine Monty Dumont MD [address] [place] [address] [phone] Health Maintenance Due Date Last Done Comments Zoster Vaccines (1 of 2) 1986 DIABETES-HGBA1C EVERY 6 MONTHS 07/15/2019 01/12/2019, 03/20/2018, 05/01/2017, Additional history exists CKD GFR USE SMARTSET 63310 10/27/201904/27, 03/20/2018, 04/07/2017, Additional history exists CKD HGB USE SMARTSET 68449 04/27/202004/27, 03/20/2018, 04/07/2017, Additional history exists CKD PHOS USE SMARTSET 51357 04/27/2020 04/27/2019, 1 05/20/2017 DIABETES-FOOT EXAM 04/27/2020 [...] Documents on File Type Date Recorded Patient Substitute Crossing Guard Expl anation Advanced Directive 11/15/2008 12:00 AM [...] the patient have Health Care Power of Entry Level Sales Consultant? Yes, not currently available Full Code 09/15/2009 [...]
--- OUTSIDE RECORDS SUMMARY | 2023-02-21 02:49 | External Medical Summary ---
Author Name Unknown Address [address] [place] [address] Phone Organization [facility] [address] [facility] [address] Laboratory Report Ordering Provider Test Date Status MYRON GRIMM 09/20/2019 16:21:00 Final Observation Date Value Abnormality Reference (Units ) Status WBC, Total 09/20/2019 21:33 6.68 4.00-10.80 (K/uL) Final RBC 09/20/2019 21:33 3.80 Below low normal 4.50-5.25 (M/uL) Final Hemoglobin 09/20/2019 21:33 12.0 Below low normal 14.0-16.8 (g/dL) Final HCT 09/20/2019 21:33 36.6 Below low normal 40.0-48.4 (%) Final MCV 09/20/2019 21:33 96.3 82.0-99.5 (fL) Final MCH 09/20/2019 21:33 31.6 27.0-34.0 (pg) Final MCHC 09/20/2019 21:33 32.8 32.0-36.0 (g/dL) Final RDW 09/20/2019 21:33 14.4 11.5-15.5 (%) Final Platelets 09/20/2019 21:33 159 140-400 (K/uL) Final MPV 09/20/2019 21:33 10.4 6.6-11.1 (fL) Final nRBC/100 WBC Bld Auto-Rto 09/20/2019 21:33 0 0 (/100 WBCs) Final Segs 09/20/2019 21:33 57.4 40-75 (%) Final Lymphs % 09/20/2019 21:33 29.3 18-42 (%) Final Monos 09/20/2019 21:33 10.6 1-11 (%) Final Eosinophils 09/20/2019 21:33 1.8 0-6 (%) Final Basos 09/20/2019 21:33 0.6 0-2 (%) Final Immature Granulocyte, Percent 09/20/2019 21:33 0.3 0-2 (%) Final Neutrophils Bld 09/20/2019 21:33 3.83 1.8-7.7 (K/uL) Final Lymphs, absolute 09/20/2019 21:33 1.96 1.0-4.8 (K/uL) Final Monos, Abs 09/20/2019 21:33 0.71 0.0-1.1 (K/uL) Final Eos, Abs 09/20/2019 21:33 0.12 0.0-0.7 (K/uL) Final Basos, Abs 09/20/2019 21:33 0.04 0.0-0.2 (K/uL) Final Immature Granulocytes, Number 09/20/2019 21:33 0.02 0.0-0.2 (K/uL) Final Performing Location [facility] [address] [place] [address]
--- OUTSIDE RECORDS SUMMARY | 2023-02-21 02:50 | External Medical Summary | Summary of Care ---
Author Name Unknown Organization [place] [address] Care Team Providers Care [employer] Maintenance Worker Name Role Phone Sylvia Rojas MD Primary Care Provider [phone] Reason for Visit * Reason Comments Medication Refill Encounter Details Date Type Department Care Team Description 04/06/2019 Refill Cardiology, [facility] [address] [place] [address] Leandro Heath, [address] [place] [address] [phone] Chronic coronary artery disease; Aortocoronary bypass status; HTN, goal below 140/90 Allergies No Known Allergiesdocumented as of this encounter (statuses as of 04/07/2019) Medications Medication Sig Dispensed Refills Start Date [...] Tab 5 01/20/2018 Active RANEXA 1000 MG [id number]:Trini st pain,Unstable angina (HCC) TAKE 1 TABLET TWICE A DAY 180 Tab 3 06/16/2018 Active amLODIPine (NORVASC) 5 MG TabletIndications:H TN, goal below 130/80 Take 1 Tab by mouth daily. 90 Tab 1 11/02/2018 Active nitroglycerin (NITROSTAT) 0.4 MG SUBLIndications:Chr onic coronary artery disease DISSOLVE 1 TABLET UNDER THE TONGUE EVERY 5 MINUTES FOR CHEST PAIN. UP TO 3 DOSES IN 15 MINUTES. 25 Tab 1 11/17/2018 Active glimepiride (AMARYL) 4 MG Tablet TAKE 2 TABLETS BY MOUTH DAILY WITH THE FIRST MEAL OF THE DAY FOR DIABETES 180 Tab 1 12/21/2018 Active metFORMIN (GLUCOPHAGE) 850 MG TabletIndications:D M type 2, goal A1C to be determined (HCC) Take 1 Tab by mouth 3 times a day. 90 Tab 5 12/21/2018 Active Losartan Potassium-HCTZ 100-12.5 MG per tabletIndications:H TN, goal below 140/90 Take 1 Tab by mouth daily. 90 Tab 3 01/13/2019 Active clopidogrel (PLAVIX) 75 MG TabletIndications:A ortocoronary [...] metoprolol succinate XL (TOPROL XL) 25 MG [id number]:Chr onic coronary artery disease,Aortocorona ry bypass status,HTN, goal below 140/90 TAKE 2 TABLETS BY MOUTH EVERY DAY 180 Tab 1 04/07/2019 Active metoprolol succinate XL (TOPROL XL) 25 MG [id number]:Chr onic coronary artery disease,Aortocorona ry bypass status,HTN, goal below 140/90 TAKE 2 TABLETS BY MOUTH EVERY DAY 180 Tab 1 10/08/2018 04/06/2019 Discontinued (Refill) documented as of this encounter (statuses as of 04/07/2019) Active Problems Problem Noted Date Hypertensive kidney disease with chronic kidney disease stage III 12/10/2018 History of colon polyps 09/08/2018 Diabetes mellitus with stage 3 chronic k idney disease 08/26/2017 Overview: Per CKD protocol #1 HTN, goal below 140/90 07/24/2015 Overview: Per HTN Protocol #27. Enlarged aorta 09/15/2009 Overview: Aortic root 4.4 cm 4.29.2009 echo at [facility]. Dyslipidemia, goal LDL below 70 05/01/20 09 [...] as of this encounter (statuses as of 04/07/2019) Resolved Problems Problem Noted Date Resolved Date HTN, GOAL BELOW 140/80 01/06/2012 6 Overview: Per HTN Protocol #27. Unstable angina 11/23/2011 10/24/2016 Chest pain 11/22/2011 10/24/2016 NSTEMI (non-ST elevated myocardial infarction) 0 11/22/2011 12/30/2016 Acute coronary syndrome 09/15/2009 10/25/19 17 HTN, goal below 130/80 06/14/2009 2 Overview: Per HTN Taxonomy. Type 2 diabetes mellitus wit h hemoglobin A1c goal of less than 7.0% 03/02/2009 03/27/2011 Overview: Modified per Diabetes protocol #14. ICD-10 update of inactive term EXAMINATION OF PARTICIPANT IN CLINICAL TRIAL-gen omics 11/17/2008 09/01/2009 Overview: Renamed Per Clinical Trials Billing Project. Study Titile: Genomic Markers for Patients with Cardiovascular Disease Project #[id number] PI: Francoise Tomlin MD Please call [phone] with study related questions INTERFACED RESULT 11/17/2008 10/17/2011 GENOMICS CARDIO RESEARCH OTHER*[id number] 200806/25/2016 Overview: Renamed Per Clinical Trials Billing Project. Study Titile: Genomic Markers for Patients with Cardiovascular Disease Project #[id number] PI: Francoise Tomlin MD Please call [phone] with study related questions CLASS I-II ANGINA [...] as of this encounter (statuses as of 04/07/2019) Immunizations Name Administration Dates Next Due Pneumococcal Conjugate Vacc, 13 Valent (Prevnar) 01/18/2016 Pneumococcal Polysaccharide PPV23 (Pneumovax) 11/20/2004 Seasonal Influenza, Quadriva lent, No Preserve, 6 Mons & Above, IM 03/01/2018 Seasonal Influenza, Quadriva lent, No Preserve, IM 03/02/2017 Seasonal Influenza, Trivalen t, with Preserve, 3yr & Above, Split 02/16/2013,03/09/2012,01/30/2011,02/07,03/24/2008,05/21/2004 TDAP (age 10 and older)(Boostrix) 07/10/2012 documented as of this encounter Social History Tobacco Use Types Packs/Day Years Used Date Former Smoker Cigarettes 0.5 5 Quit: 05/19 Smokeless Tobacco: Never Used Comments:quit 30 yrs ago, wh ile in [employer] for 4 years Alcohol Use Drinks/Week oz/Week Comments Yes a beer per nigh t Sex Assigned at Date Recorded Not on file Job Start Date Occupation Industry Not on file Not on file Not on file Travel History Travel Start Travel End documented as of this encounter Miscellaneous Notes * Telephone Encounter - Leandro Heath DO - 04/07/2019 1:28 PM EST Signed Prescriptions: Disp Refills metoprolol succinate XL (TOPROL XL) 25 MG *180 Tab1 Sig: TAKE 2 TABLETS BY MOUTH EVERY DAY Authorizing Provider: LEANDRO HETAH * Telephone Encounter - Bill Tyler LPN - 04/06/2019 3:28 PM EST Pending Prescriptions: Disp Refills metoprolol succinate XL (TOPROL XL) 25 MG*180 Tab1 Sig: TAKE 2 TABLETS BY MOUTH EVERY DAY Last Office Visit: 01/28/2019 Next Office Visit: 09/17/2019 Scheduled Provider(s): Azael Lozano MD Last medication order date: 10/08/2018 Have you choosen a preferred pharm?? 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 Dyslipidemia, goal LDL below 70 E78.5 Enlarged aorta ([facility]) I77.89 S/P angioplasty with stent Z95.820 DM type 2, goal A1C to be determined ([facility]) E11.9 HTN, goal below 140/90 I10 Diabetes mellitus with stage 3 chronic kidney disease ([facility]) E11.22, N18.3 History of colon polyps Z86.010 Hypertensive kidney disease with chronic kidney disease stage III ([facility]) I12.9, N18.3 Labs: CREATININE(mg/dL) Frida Dt/Tm Resulted Value Status 03/20/18 9:15A 03/20/18 1.3* FINAL POTASSIUM(mmol/L) Frida Dt/Tm Resulted Value Status 03/20/18 9:15A 03/20/18 4.6 FINAL TSH(uIU/mL) Frida Dt/Tm Resulted Value Status 01/01/17 1:44P 01/01/17 2.81 FINAL LDL (DIRECT MEASURE)(mg/dL) Frida Dt/Tm Resulted Value Status 10/24/16 11:50A 10/24/16 50 FINAL 02/20/15 3:38P 02/21/15 48 FINAL ALT(U/L) Frida Dt/Tm Resulted Value Status 10/24/16 11:50A 10/24/16 18 FINAL Hemoglobin AIC Results: HEMOGLOBIN, A1C(%) Frida Dt/Tm Resulted Value Status 01/12/19 2:01P 01/12/19 6.5* FINAL 03/20/18 9:15A 03/20/18 7.0* FINAL 05/01/17 2:43P 05/01/17 7.4* FINAL documented in this encounter Plan of Treatment Upcoming Encounters Date Type Specialty Care Team Description 04/27/2019 Office Visit Family Medicine Motny Dumont MD [address] [facility] [place] [address] [phone] 09/17/2019 Office Visit Cardiology Azael Lozano MD [address] [place] [address] [phone] Health Maintenance Due Date Last Done Comments *DEPRESSION SCREENING,ANNUAL FOR PTS 12 AND OVER 2014 Yearly B-12 05/01/2018 05/01/2017 CKD GFR USE SMARTSET 16970 09/17/201803/20, 04/07/2017, 10/24/2016, Additional history exists Influenza Vaccine (FLU shot) (#1) 2019 03/01/2018, 03/02/2017, 02/16/2013, Additional history exists CKD HGB USE SMARTSET 27441 03/20/201903/20, 04/07/2017, 01/01/2017, Additional history exists CKD PHOS USE SMARTSET 76079 03/20/2019 03/20/2018 DIABETES-FOOT EXAM 03/20/2019 03/20/2018, 0 [...] Coronary atherosclerosis of unspecified type of vessel, [place] or graft Aortocoronary bypass status Postsurgical aortocoronary bypass status HTN, goal below 140/90 Unspecified essential hypertension documented in this encounter Advance Directives Documents on File Type Date Recorded Patient Latin Teacher Expl anation Advanced Directive 11/15/2008 12:00 AM Advanced Directive 11/21/2008 12:00 AM Advanced Directive Advanced Directive 09/16/2009 12:00 AM Advanced Directive 11/24/2011 3:43 PM Advanced Directive Advanced Directive Latest Code Status on File Code Status Date Activated Date Inactivated Comments Full Code 11/22/2011 11:38 PM 11/25/2011 9:22 PM This o rder reflects the patients wishes and were consensually agreed upon. Discussion of Advance Directives occurred with: Patient/Family Does the patient have a Living Will? Yes, not cu rrently available Does the patient have Health Care Power of Excellence Manager? Yes, not currently available Full Code [...]
--- OUTSIDE RECORDS SUMMARY | 2023-02-21 02:50 | External Medical Summary | Summary of Care ---
Author Name Unknown Organization [place] [address] Care Team Providers Care Underwriting Assistant Name Role Phone Kalli Rojas MD Primary Care Provider [phone] Reason for Visit * Reason Comments eRx-Medication Refill Encounter Details Date Type Department Care Team Description 03/03/[address] [facility] [address] [facility] [place] [address] Kalli Rojas MD [address] [place] [address] [phone] Dyslipidemia, goal LDL below 70; Dyslipidemia, goal LDL below 160; Mixed dyslipidemia Allergies No Known Allergiesdocumented as of this encounter (statuses as of 03/04/2019) Medications Medication Sig Dispensed Refills Start Date [...] Tab 5 01/20/2018 Active RANEXA 1000 MG [id number]:Ch est pain,Unstable angina (HCC) TAKE 1 TABLET TWICE A DAY 180 Tab 3 06/16/2018 Active metoprolol succinate XL (TOPROL XL) 25 MG [id number]:Ch ronic coronary artery disease,Aortocoron jovanna bypass status,HTN, goal below 140/90 TAKE 2 TABLETS BY MOUTH EVERY DAY 180 Tab 1 10/08/2018 Active amLODIPine (NORVASC) 5 MG TabletIndications: HTN, goal below 130/80 Take 1 Tab by mouth daily. 90 Tab 1 11/02/2018 Active nitroglycerin (NITROSTAT) 0.4 MG SUBLIndications:Ch ronic [...] a day. 90 Tab 5 12/21/2018 Active JANUVIA 100 MG TabletIndications: 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) TAKE 1 TABLET DAILY 90 Tab 0 01/05/2019 Active Losartan Potassium-HCTZ 100-12.5 MG per tabletIndications: HTN, goal below 140/90 Take 1 Tab by mouth daily. 90 Tab 3 01/13/2019 Active clopidogrel (PLAVIX) 75 MG TabletIndications: Aortocoronary [...] THE AFTERNOON 90 Tab 4 03/04/2019 Active rosuvastatin (CRESTOR) 20 MG TabletIndications: Dyslipidemia, goal LDL below 70,Dyslipidemia, goal LDL below 160,Mixed dyslipidemia TAKE 1 TABLET DAILY AT 5 P.M. IN THE AFTERNOON 90 Tab 1 09/04/2018 03/03/2019 Discontinued documented as of this encounter (statuses as of 03/04/2019) Active Problems Problem Noted Date Hypertensive kidney disease with chronic kidney disease stage III 12/10/2018 History of colon polyps 09/08/2018 Diabetes mellitus with stage 3 chronic k idney disease 08/26/2017 Overview: Per CKD protocol #1 HTN, goal below 140/90 07/24/2015 Overview: Per HTN Protocol #27. Enlarged aorta 09/15/2009 Overview: Aortic root 4.4 cm 4.29.2009 echo at [facility]. Dyslipidemia, goal LDL below 70 [...] as of this encounter (statuses as of 03/04/2019) Resolved Problems Problem Noted Date Resolved Date [...] Markers for Patients with Cardiovascular Disease Project #[id number] PI: Francoise Tomlin MD Please call [phone] with study related questions INTERFACED RESULT 11/17/2008 10/17/2011 GENOMICS CARDIO RESEARCH OTHER*[id number] 200806/25/2016 Overview: Renamed Per Clinical Trials Billing Project. Study Titile: Genomic Markers for Patients with Cardiovascular Disease Project #[id number] PI: Francoise Tomlin MD Please call [phone] with study related questions CLASS I-II ANGINA [...] as of this encounter (statuses as of 03/04/2019) Immunizations Name Administration Dates Next Due Pneumococcal [...] 30 yrs ago, wh ile in [employer] for 4 years Alcohol Use Drinks/Week oz/Week Comments Yes a beer per nigh t Sex Assigned at Date Recorded Not on file Job Start Date Occupation Industry Not on file Not on file Not on file Travel History Travel Start Travel End documented as of this encounter Miscellaneous Notes * Telephone Encounter - Kalli Rojas MD - 03/04/2019 11:06 AM EDT Signed Prescriptions: Disp Refills rosuvastatin (CRESTOR) 20 MG Tablet 90 Tab 4 Sig: TAKE 1 TABLET DAILY AT 5 P.M. IN THE AFTERNOON Authorizing Provider: KALLI ROJAS * Telephone Encounter - [facility] - 03/03/2019 8:07 PM EDT Pending Prescriptions: Disp Refills rosuvastatin (CRESTOR) 20 MG Tablet [Phar*90 Tab 4 Sig: TAKE 1 TABLET DAILY AT 5 P.M. IN THE AFTERNOON Electronically signed by [facility] at 03/03/2019 8:07 PM EDT * Telephone Encounter - [facility] - 03/03/2019 8:04 PM EDT Pt overdue for labs that are required per protocol. The labs were previously ordered 06/17/18 but still not completed by pt. Pt has also cancelled last 3 appointment.s Please approve if appropriate. Pending Prescriptions: Disp Refills rosuvastatin (CRESTOR) 20 MG Tablet [Phar*90 Tab 4 Sig: TAKE 1 TABLET DAILY AT 5 P.M. IN THE AFTERNOON Last Office Visit: 03/20/2018 Next Office Visit: No Future Appointments If no future appointments scheduled, and last appointment is greater than a year ago, please schedule patient for a follow-up appointment Last date the medication was ordered: 09/04/18 Patient Phone Numbers Labs: Lab Results Component Value Date/Time CREAT 1.3 (H) 03/20/2018 09:15 AM POTASSIUM 4.6 03/20/2018 09:15 AM TSH 2.81 01/01/2017 01:44 PM LDLCALC 20 11/23/2011 05:00 AM LDLDIRECT 50 10/24/2016 11:50 AM ALT 18 10/24/2016 11:50 AM HGBA1C 6.5 (H) 01/12/2019 02:01 PM Electronically signed by [facility] at 03/03/2019 8:07 PM EDT documented in this encounter Plan of Treatment Upcoming Encounters Date Type Specialty Care Team Description 09/17/2019 Office Visit Cardiology Azael Lozano MD [address] [place] [address] Health Maintenance Due Date Last Done Comments *DEPRESSION SCREENING,ANNUAL FOR PTS 12 AND OVER 2014 Yearly B-12 05/01/2018 05/01/2017 CKD GFR USE SMARTSET 54100 09/17/201803/20, 04/07/2017, 10/24/2016, Additional history exists Influenza Vaccine (FLU shot) (#1) 2019 03/01/2018, 03/02/2017, 02/16/2013, Additional history exists CKD HGB USE SMARTSET 50089 03/20/201903/20, 04/07/2017, 01/01/2017, Additional history exists CKD PHOS USE SMARTSET 06639 03/20/2019 03/20/2018 DIABETES-FOOT EXAM 03/20/2019 03/20/2018, 0 10/24/2016, 01/18/2016, Additional history exists DIABETES-HGBA1C EVERY 6 MONTHS 07/15/2019 01/12/2019, 03/20/2018, [...] Documents on File Type Date Recorded Patient Claims Investigator Expl anation Advanced Directive 11/15/2008 12:00 [...] the patient have Health Care Power of Cheese Packer? Yes, not currently available Full Code 09/15/2009 [...]
--- OUTSIDE RECORDS SUMMARY | 2023-02-21 02:50 | External Medical Summary | Summary of Care ---
Author Name Unknown Organization [place] [address] Care Team Providers Care Dry Cans Operator Name Role Phone Sylvia Roajs MD Primary Care Provider [phone] Reason for Visit * Reason Comments Medication Refill Encounter Details Date Type Department Care Team Description 04/14/2019 Refill Cardiology, [facility] [address] [place] [address] Sushila Lozano MD [address] [facility] [place] [id number] HTN, goal below 140/90* Allergies No Known Allergiesdocumented as of this encounter (statuses as of 04/19/2019) Medications Medication Sig Dispensed Refills Start Date [...] Tab 5 01/20/2018 Active RANEXA 1000 MG [id number]:Trini st pain,Unstable angina (HCC) TAKE 1 TABLET [...] 5 12/21/2018 Active clopidogrel (PLAVIX) 75 MG TabletIndications:A ortocoronary [...] metoprolol succinate XL (TOPROL XL) 25 MG BH65Cejhlrojfhf:Chr onic coronary artery disease,Aortocorona ry bypass status,HTN, [...] 3 04/19/2019 Active losartan (COZAAR) 100 MG Tablet Take 100 mg by mouth daily. 0 04/14/2019 Discontinued (Refill) hydroCHLOROthiazide (HYDRODIURIL) 12.5 MG Tablet Take 12.5 mg by mouth daily. 0 04/14/2019 Discontinued (Refill) documented as of this encounter (statuses as of 04/19/2019) Active Problems Problem Noted Date Hypertensive kidney disease with chronic kidney disease stage III 12/10/2018 History of colon polyps 09/08/2018 Diabetes mellitus with stage 3 chronic k idney disease 08/26/2017 Overview: Per CKD protocol #1 HTN, goal below 140/90 07/24/2015 Overview: Per HTN Protocol #27. Enlarged aorta 09/15/2009 Overview: Aortic root 4.4 cm 4.29.2009 echo at [facility]. Dyslipidemia, goal LDL below 70 05/01/20 09 [...] as of this encounter (statuses as of 04/19/2019) Resolved Problems Problem Noted Date Resolved Date [...] Markers for Patients with Cardiovascular Disease Project #[id number] PI: Francoise Tomlin MD Please call [phone] with study related questions INTERFACED RESULT 11/17/2008 10/17/2011 GENOMICS CARDIO RESEARCH OTHER*[id number] 200806/25/2016 Overview: Renamed Per Clinical Trials Billing Project. Study Titile: Genomic Markers for Patients with Cardiovascular Disease Project #[id number] PI: Francoise Tomlin MD Please call [phone] with study related questions CLASS I-II ANGINA [...] as of this encounter (statuses as of 04/19/2019) Immunizations Name Administration Dates Next Due Pneumococcal [...] Comments:quit 30 yrs ago, wh ile in [email or web address] for 4 years Alcohol Use Drinks/Week oz/Week Comments Yes a beer per nigh t Sex Assigned at Date Recorded Not on file Job Start Date Occupation Industry Not on file Not on file Not on file Travel History Travel Start Travel End documented as of this encounter Miscellaneous Notes * Telephone Encounter - Suhsila Lozano MD - 04/19/2019 4:18 PM EST Signed Prescriptions: Disp Refills hydroCHLOROthiazide (HYDRODIURIL) 12.5 MG *90 Tab 3 Sig: Take 1 Tab by mouth daily. Authorizing Provider: SUSHILA LOZANO losartan (COZAAR) 100 MG Tablet 90 Tab 3 Sig: Take 1 Tab by mouth daily. Authorizing Provider: SUSHILA LOZANO * Telephone Encounter - Bill Tyler LPN - 04/14/2019 3:47 PM EST Earlier today Losartan-HCTZ 100-12.5 mg tab was approved and sent to pharmacy. Pharmacy stated that above prescription is on die forger back order and requests 2 separate prescriptions. documented in this encounter Plan of Treatment Upcoming Encounters Date Type Specialty Care Team Description 04/27/2019 Office Visit Family Medicine Monty Dumont MD [address] [place] [address] [phone] 09/17/2019 Office Visit Cardiology Sushila Lozano MD [address] [place] [address] [phone] Health Maintenance Due Date Last Done Comments *DEPRESSION SCREENING,ANNUAL FOR PTS 12 AND OVER 2014 Yearly B-12 05/01/2018 05/01/2017 CKD GFR USE SMARTSET 79193 09/17/201803/20, 04/07/2017, 10/24/2016, Additional history exists Influenza Vaccine (FLU shot) (#1) 2019 03/01/2018, 03/02/2017, 02/16/2013, Additional history exists CKD HGB USE SMARTSET 97618 03/20/201903/20, 04/07/2017, 01/01/2017, Additional history exists CKD PHOS USE SMARTSET 33383 03/20/2019 03/20/2018 DIABETES-FOOT EXAM 03/20/2019 03/20/2018, 0 [...] encounter Visit Diagnoses Diagnosis HTN, goal below 140/90- Primary Unspecified essential hypertension documented in this encounter Advance Directives Documents on File Type Date Recorded Patient Music Researcher Expl anation Advanced Directive 11/15/2008 12:00 AM [...] patient have Health Care Power of Sales Broker? Yes, not currently available Full Code 09/15/2009 [...]
--- OUTSIDE RECORDS SUMMARY | 2023-02-21 02:50 | External Medical Summary | Summary of Care ---
Author Name Unknown Organization [place] [address] Care Team Providers Care Chemical Etching Processor Name Role Phone Sylvai Rojas MD Primary Care Provider [phone] Reason for Visit * Reason Comments Forms Request Encounter Details Date Type Department Care Team Description 01/28/2019 Telephone Cardiology, [facility] [address] [facility] [place] [address] Azael Lozano MD 132 [facility] [place] [id number] Forms Request Allergies No Known Allergiesdocumented as of this encounter (statuses as of 01/28/2019) Medications Medication Sig Dispensed Refills Start Date [...] Tab 5 01/20/2018 Active RANEXA 1000 MG [id number]:Chest pain,Unstable angina (HCC) TAKE 1 TABLET TWICE A DAY 180 Tab 3 06/16/2018 Active rosuvastatin (CRESTOR) 20 MG TabletIndications:Dysl ipidemia, goal LDL below 70,Dyslipidemia, goal LDL below 160,Mixed dyslipidemia TAKE 1 TABLET DAILY AT 5 P.M. IN THE AFTERNOON 90 Tab 1 09/04/2018 Active metoprolol succinate XL (TOPROL XL) 25 MG JI81Oomsnhnsplg:Chroni c coronary artery disease,Aortocoronary bypass status,HTN, goal below 140/90 TAKE 2 TABLETS BY MOUTH EVERY DAY 180 Tab 1 10/08/2018 Active amLODIPine (NORVASC) 5 MG TabletIndications:HTN, goal below 130/80 Take 1 Tab by mouth daily. 90 Tab 1 11/02/2018 Active nitroglycerin (NITROSTAT) 0.4 MG SUBLIndications:Chroni c [...] Tab 5 12/21/2018 Active JANUVIA 100 MG TabletIndications:Diab etes mellitus with stage 3 chronic kidney disease (HCC) TAKE 1 TABLET DAILY 90 Tab 0 01/05/2019 Active Losartan Potassium-HCTZ 100-12.5 MG per tabletIndications:HTN, goal below 140/90 Take 1 Tab by mouth daily. 90 Tab 3 01/13/2019 Active clopidogrel (PLAVIX) 75 MG TabletIndications:Aort ocoronary bypass status,Acute coronary syndrome (HCC),Chronic coronary artery disease,Enlarged aorta (HCC) Take 1 Tab by mouth daily. 100 Tab 1 01/15/2019 Active Isosorbide Mononitrate ER 120 MG TB24 Take 1 Tab by mouth daily. In the morning. 90 Tab 1 01/19/2019 Active documented as of this encounter (statuses as of 01/28/2019) Active Problems Problem Noted Date Hypertensive kidney disease with chronic kidney disease stage III 12/10/2018 History of colon polyps 09/08/2018 Diabetes mellitus with stage 3 chronic k idney disease 08/26/2017 Overview: Per CKD protocol #1 HTN, goal below 140/90 07/24/2015 Overview: Per HTN Protocol #27. Enlarged aorta 09/15/2009 Overview: Aortic root 4.4 cm 4.29.2009 echo at [facility]. Dyslipidemia, goal LDL below 70 05/01/20 [...] as of this encounter (statuses as of 01/28/2019) Resolved Problems Problem Noted Date Resolved Date [...] Markers for Patients with Cardiovascular Disease Project #[id number] PI: Francoise Tomlin MD Please call [phone] with study related questions INTERFACED RESULT 11/17/2008 10/17/2011 GENOMICS CARDIO RESEARCH OTHER*[id number] 200806/25/2016 Overview: Renamed Per Clinical Trials Billing Project. Study Titile: Genomic Markers for Patients with Cardiovascular Disease Project #[id number] PI: Francoise Tomlin MD Please call [phone] with study related questions CLASS I-II ANGINA [...] as of this encounter (statuses as of 01/28/2019) Immunizations Name Administration Dates Next Due Pneumococcal [...] Comments:quit 30 yrs ago, wh ile in [employer] for 4 years Alcohol Use Drinks/Week oz/Week Comments Yes a beer per nigh t Sex Assigned at Date Recorded Not on file Job Start Date Occupation Industry Not on file Not on file Not on file Travel History Travel Start Travel End documented as of this encounter Miscellaneous Notes * Telephone Encounter - Niya Pineda RN - 01/28/2019 11:49 AM EDT Sending forms to [employer] via fax for DOT at [phone] documented in this encounter Plan of Treatment Upcoming Encounters Date Type Specialty Care Team Description 09/17/2019 Office Visit Cardiology Azael Lozano MD [address] [place] [address] [phone] Health Maintenance Due Date Last Done Comments *DEPRESSION SCREENING,ANNUAL FOR PTS 12 AND OVER 2014 Yearly B-12 05/01/2018 05/01/2017 CKD GFR USE SMARTSET 94821 09/17/201803/20, 04/07/2017, 10/24/2016, Additional history exists Influenza Vaccine (FLU shot) (#1) 2019 03/01/2018, 03/02/2017, 02/16/2013, Additional history exists CKD HGB USE SMARTSET 79414 03/20/201903/20, 04/07/2017, 01/01/2017, Additional history exists CKD PHOS USE SMARTSET 32274 03/20/2019 03/20/2018 DIABETES-FOOT EXAM 03/20/2019 03/20/2018, 0 [...] Documents on File Type Date Recorded Patient Biomechanical Engineer Expl anation Advanced Directive 11/15/2008 12:00 [...] the patient have Health Care Power of Spudder? Yes, not currently available Full Code 09/15/2009 [...]
--- OUTSIDE RECORDS SUMMARY | 2023-02-21 02:50 | External Medical Summary | Summary of Care ---
Author Name Unknown Organization [place] [address] Care Team Providers Care Steel Sampler Name Role Phone Kalli Rojas MD Primary Care Provider [phone] Reason for Visit * Reason Comments eRx-Medication Refill Encounter Details Date Type Department Care Team Description 04/05/2019 Refill Family Practice [facility] [address] [place] [address] Kalli Rojas MD 132 [facility] [place] [address] [phone] Encounter for long-term (current) use of medications*; 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) Allergies No Known Allergiesdocumented as of this encounter (statuses as of 04/06/2019) Medications Medication Sig Dispensed Refills Start Date [...] Tab 5 01/20/2018 Active RANEXA 1000 MG [id number]:Trini st pain,Unstable angina (HCC) TAKE 1 TABLET TWICE A DAY 180 Tab 3 06/16/2018 Active metoprolol succinate XL (TOPROL XL) 25 MG FE21Mfilcbpcmyj:Chr onic coronary artery disease,Aortocorona ry bypass status,HTN, goal below 140/90 TAKE 2 TABLETS BY MOUTH EVERY DAY 180 Tab 1 10/08/2018 Active amLODIPine (NORVASC) 5 MG TabletIndications:H TN, [...] TABLET DAILY 90 Tab 0 04/06/2019 Active JANUVIA 100 MG TabletIndications:D iabetes mellitus with stage 3 chronic kidney disease (HCC) TAKE 1 TABLET DAILY 90 Tab 0 01/05/2019 04/05/2019 Discontinued (Refill) documented as of this encounter (statuses as of 04/06/2019) Active Problems Problem Noted Date Hypertensive kidney disease with chronic kidney disease stage III 12/10/2018 History of colon polyps 09/08/2018 Diabetes mellitus with stage 3 chronic k idney disease 08/26/2017 Overview: Per CKD protocol #1 HTN, goal below 140/90 07/24/2015 Overview: Per HTN Protocol #27. Enlarged aorta 09/15/2009 Overview: Aortic root 4.4 cm 4.29.2009 echo at [facility]. Dyslipidemia, goal LDL below 70 [...] as of this encounter (statuses as of 04/06/2019) Resolved Problems Problem Noted Date Resolved Date [...] Markers for Patients with Cardiovascular Disease Project #[id number] PI: Francoise Tomlin MD Please call [phone] with study related questions INTERFACED RESULT 11/17/2008 10/17/2011 GENOMICS CARDIO RESEARCH OTHER*[id number] 200806/25/2016 Overview: Renamed Per Clinical Trials Billing Project. Study Titile: Genomic Markers for Patients with Cardiovascular Disease Project #[id number] PI: Francoise Tomlin MD Please call [phone] with study related questions CLASS I-II ANGINA [...] as of this encounter (statuses as of 04/06/2019) Immunizations Name Administration Dates Next Due Pneumococcal [...] Comments:quit 30 yrs ago, wh ile in [employer] for 4 years Alcohol Use Drinks/Week oz/Week Comments Yes a beer per nigh t Sex Assigned at Date Recorded Not on file Job Start Date Occupation Industry Not on file Not on file Not on file Travel History Travel Start Travel End documented as of this encounter Miscellaneous Notes * Telephone Encounter - Mónica Machado CPhT - 04/06/2019 1:06 PM EST Received message from [facility] regarding patient needing appointment and labs. Placed call to patient melita. Left message on voicemail advising of required labs and to call back for an appointment. Thank you, Mónica Machado Kiss Setter Hand Refill Call Center 04/06/2019, 1:06 PM * Telephone Encounter - Quin Ayala [facility] - 04/06/2019 12:25 PM EST Signed Prescriptions: Disp Refills JANUVIA 100 MG Tablet 90 Tab 0 Sig: TAKE 1 TABLET DAILY Authorizing Provider: KALLI ROJAS User: QUIN AYALA * Telephone Encounter - Quin Ayala [facility] - 04/06/2019 12:25 PM EST Patient is overdue for office visit and lab work. Please call patient to schedule appointment and inform them to get labs completed soon. 1 approved Last Office Visit: 03/20/2018 Lab work ordered is fasting - lipid, cmp, b12. Thank you, Quin Ayala, PharmD. Clinical Pharmacist Pharmacy Refill Call Center 04/06/2019, 12:25 PM * Telephone Encounter - Quin Ayala [facility] - 04/06/2019 12:23 PM EST Pending Prescriptions: Disp Refills JANUVIA 100 MG Tablet [Pharmacy Med Name:*90 Tab 4 Sig: TAKE 1 TABLET DAILY Last Office Visit: 03/20/2018 Next Office Visit: No Future Appointments If no future appointments scheduled, and last appointment is greater than a year ago, please schedule patient for a follow-up appointment Last date the medication was ordered: 01/05 Pharmacy: [facility]- [place] Is this request for a controlled substance?No [...] Office Visit Cardiology Azael Lozano MD 132 [facility] [place] [address] [phone] Scheduled Orders Name Type Priority Associated Diagnoses Orde r Schedule COMPR METAB PANEL Lab Routine Encounter for long-term (current) use of medications Expected: 04/06/2019 (Approximate), Expires: 04/06/2020 VITAMIN B12 Lab Routine Encounter for long-term (current) use of medications Expected: 04/06/2019 (Approximate), Expires: 04/06/2020 Health Maintenance Due Date Last Done Comments *DEPRESSION SCREENING,ANNUAL FOR PTS 12 AND OVER 2014 Yearly B-12 05/01/2018 05/01/2017 CKD GFR USE SMARTSET 72715 09/17/201803/20, 04/07/2017, 10/24/2016, Additional history exists Influenza Vaccine (FLU shot) (#1) 2019 03/01/2018, 03/02/2017, 02/16/2013, Additional history exists CKD HGB USE SMARTSET 25619 03/20/201903/20, 04/07/2017, 01/01/2017, Additional history exists CKD PHOS USE SMARTSET 47816 03/20/2019 03/20/2018 DIABETES-FOOT EXAM 03/20/2019 03/20/2018, 0 [...] for long-term (current) use of other medications 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) Type II or unspecified type diabetes mellitus with renal manifestations, not stated as uncontrolled documented in this encounter Advance Directives Documents on File Type Date Recorded Patient Mixing Plant Operator Expl anation Advanced Directive 11/15/2008 [...] the patient have Health Care Power of Powerbuilder? Yes, not currently available Full Code 09/15/2009 [...]
--- OUTSIDE RECORDS SUMMARY | 2023-02-21 02:50 | External Medical Summary | Summary of Care ---
Author Name Unknown Organization [place] [address] Care Team Providers Care Switchboard Receptionist Name Role Phone Sylvia Rojas MD Primary Care Provider [phone] Reason for Visit * Reason Comments Medication Refill Encounter Details Date Type Department Care Team Description 04/14/2019 Refill Cardiology, [facility] 132 [facility] [place] [id number] Sushila Lozano MD 132 [place] [address] [phone] HTN, goal below 140/90 Allergies No Known Allergiesdocumented as of this encounter (statuses as of 04/14/2019) Medications Medication Sig Dispensed Refills Start Date [...] Tab 5 01/20/2018 Active RANEXA 1000 MG EU08Ohafopudmug:Trini st pain,Unstable angina (HCC) TAKE 1 TABLET [...] metoprolol succinate XL (TOPROL XL) 25 MG BX36Zipneexujav:Chr onic coronary artery disease,Aortocorona ry bypass status,HTN, goal below 140/90 TAKE 2 TABLETS BY MOUTH EVERY DAY 180 Tab 1 04/07/2019 Active Losartan Potassium-HCTZ 100-12.5 MG per tabletIndications:H TN, goal below 140/90 Take 1 Tab by mouth daily. 90 Tab 3 04/14/2019 Active Losartan Potassium-HCTZ 100-12.5 MG per tabletIndications:H TN, goal below 140/90 Take 1 Tab by mouth daily. 90 Tab 3 01/13/2019 04/14/2019 Discontinued (Refill) documented as of this encounter (statuses as of 04/14/2019) Active Problems Problem Noted Date Hypertensive kidney disease with chronic kidney disease stage III 12/10/2018 History of colon polyps 09/08/2018 Diabetes mellitus with stage 3 chronic k idney disease 08/26/2017 Overview: Per CKD protocol #1 HTN, goal below 140/90 07/24/2015 Overview: Per HTN Protocol #27. Enlarged aorta 09/15/2009 Overview: Aortic root 4.4 cm 4.29.2009 echo at [facility]. Dyslipidemia, goal LDL below 70 [...] as of this encounter (statuses as of 04/14/2019) Resolved Problems Problem Noted Date Resolved Date [...] Markers for Patients with Cardiovascular Disease Project #[id number] PI: Francoise Tomlin MD Please call [phone] with study related questions INTERFACED RESULT 11/17/2008 10/17/2011 GENOMICS CARDIO RESEARCH OTHER*[id number] 200806/25/2016 Overview: Renamed Per Clinical Trials Billing Project. Study Titile: Genomic Markers for Patients with Cardiovascular Disease Project #[id number] PI: Francoise Tomlin MD Please call [phone] with study related questions CLASS I-II ANGINA [...] as of this encounter (statuses as of 04/14/2019) Immunizations Name Administration Dates Next Due Pneumococcal [...] Comments:quit 30 yrs ago, wh ile in [employer] for 4 years Alcohol Use Drinks/Week oz/Week Comments Yes a beer per nigh t Sex Assigned at Date Recorded Not on file Job Start Date Occupation Industry Not on file Not on file Not on file Travel History Travel Start Travel End documented as of this encounter Miscellaneous Notes * Telephone Encounter - Sushila Lozano MD - 04/14/2019 12:21 PM EST Signed Prescriptions: Disp Refills Losartan Potassium-HCTZ 100-12.5 MG per ta*90 Tab 3 Sig: Take 1 Tab by mouth daily. Authorizing Provider: SUSHILA LOZANO * Telephone Encounter - Bill Tyler LPN - 04/14/2019 9:38 AM EST Pending Prescriptions: Disp Refills Losartan Potassium-HCTZ 100-12.5 MG per t*90 Tab 3 Sig: Take 1 Tab by mouth daily. Last Office Visit: 01/28/2019 Next Office Visit: 09/17/2019 Scheduled Provider(s): Sushila Lozano MD Last medication order date: 01/13/2019 Have you choosen a preferred pharm?? 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 Dyslipidemia, goal LDL below 70 E78.5 Enlarged aorta ([facility]) I77.89 S/P angioplasty with stent Z95.820 DM type 2, goal A1C to be determined ([facility]) E11.9 HTN, goal below 140/90 I10 Diabetes mellitus with stage 3 chronic kidney disease ([facility]) E11.22, N18.3 History of colon polyps Z86.010 Hypertensive kidney disease with chronic kidney disease stage III ([facility]) I12.9, N18.3 Labs: CREATININE(mg/dL) Frida Dt/Tm Resulted [...] Medicine Monty Dumont MD [address] [place] [address] [phone] 09/17/2019 Office Visit Cardiology Sushila Lozano MD [address] [place] [address] [phone] Health Maintenance Due Date Last Done Comments *DEPRESSION SCREENING,ANNUAL FOR PTS 12 AND OVER 2014 Yearly B-12 05/01/2018 05/01/2017 CKD GFR USE SMARTSET 16386 09/17/201803/20, 04/07/2017, 10/24/2016, Additional history exists Influenza Vaccine (FLU shot) (#1) 2019 03/01/2018, 03/02/2017, 02/16/2013, Additional history exists CKD HGB USE SMARTSET 65552 03/20/201903/20, 04/07/2017, 01/01/2017, Additional history exists CKD PHOS USE SMARTSET 17282 03/20/2019 03/20/2018 DIABETES-FOOT EXAM 03/20/2019 03/20/2018, 0 [...] Documents on File Type Date Recorded Patient Painter Apprentice Expl anation Advanced Directive 11/15/2008 12:00 AM [...] the patient have Health Care Power of External Relations Director? Yes, not currently available Full Code 09/15/2009 [...]
--- OUTSIDE RECORDS SUMMARY | 2023-02-21 02:50 | External Medical Summary | Summary of Care ---
Author Name Unknown Organization [place] [address] Care Team Providers Care Jackhammer Operator Name Role Phone Sylvia Rojas MD Primary Care Provider Reason for Visit * Reason Comments Medication Refill Encounter Details Date Type Department Care Team Description 04/23/2019 Refill Cardiology, [facility] [address] [facility] [place] [id number] Sushila Lozano MD [address] [place] [address] [phone] HTN, goal below 130/80 Allergies No Known Allergiesdocumented as of this encounter (statuses as of 04/26/2019) Medications Medication Sig Dispensed Refills Start Date [...] Tab 5 01/20/2018 Active RANEXA 1000 MG [id number]:Trini st pain,Unstable angina (HCC) TAKE 1 TABLET TWICE A DAY 180 Tab 3 06/16/2018 Active nitroglycerin (NITROSTAT) 0.4 MG SUBLIndications:Chr onic [...] metoprolol succinate XL (TOPROL XL) 25 MG [id number]:Chr onic coronary artery disease,Aortocorona ry bypass status,HTN, [...] mouth daily. 90 Tab 1 04/26/2019 Active amLODIPine (NORVASC) 5 MG TabletIndications:H TN, goal below 130/80 Take 1 Tab by mouth daily. 90 Tab 1 11/02/2018 04/23/2019 Discontinued (Refill) documented as of this encounter (statuses as of 04/26/2019) Active Problems Problem Noted Date Hypertensive kidney disease with chronic kidney disease stage III 12/10/2018 History of colon polyps 09/08/2018 Diabetes mellitus with stage 3 chronic k idney disease 08/26/2017 Overview: Per CKD protocol #1 HTN, goal below 140/90 07/24/2015 Overview: Per HTN Protocol #27. Enlarged aorta 09/15/2009 Overview: Aortic root 4.4 cm 4.29.2009 echo [facility]. Dyslipidemia, goal LDL below 70 05/01/20 [...] as of this encounter (statuses as of 04/26/2019) Resolved Problems Problem Noted Date Resolved Date [...] Markers for Patients with Cardiovascular Disease Project #[id number] PI: Francoise Tomlin MD Please call [phone] with study related questions INTERFACED RESULT 11/17/2008 10/17/2011 GENOMICS CARDIO RESEARCH OTHER*[id number] 200806/25/2016 Overview: Renamed Per Clinical Trials Billing Project. Study Titile: Genomic Markers for Patients with Cardiovascular Disease Project #[id number] PI: Francoise Tomlin MD Please call [phone] with study related questions CLASS I-II ANGINA [...] as of this encounter (statuses as of 04/26/2019) Immunizations Name Administration Dates Next Due Pneumococcal [...] Comments:quit 30 yrs ago, wh ile in [employer] for 4 years Alcohol Use Drinks/Week oz/Week Comments Yes a beer per nigh t Sex Assigned at Date Recorded Not on file Job Start Date Occupation Industry Not on file Not on file Not on file Travel History Travel Start Travel End documented as of this encounter Miscellaneous Notes * Telephone Encounter - Sushila Lozano MD - 04/26/2019 9:10 AM EST Signed Prescriptions: Disp Refills amLODIPine (NORVASC) 5 MG Tablet 90 Tab 1 Sig: Take 1 Tab by mouth daily. Authorizing Provider: SUSHILA LOZANO * Telephone Encounter - Bill TylerMENA - 04/23/2019 1:45 PM EST Pending Prescriptions: Disp Refills amLODIPine (NORVASC) 5 MG Tablet 90 Tab 1 Sig: Take 1 Tab by mouth daily. Last Office Visit: 01/28/2019 Next Office Visit: 09/17/2019 Scheduled Provider(s): Sushila Lozano MD Last medication order date: 11/02/2018 Have you choosen a preferred pharm?? 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 Dyslipidemia, goal LDL below 70 E78.5 Enlarged aorta ([facility]) I77.89 S/P angioplasty with stent Z95.820 DM type 2, goal A1C to be determined ([facility]) E11.9 HTN, goal below 140/90 I10 Diabetes mellitus with stage 3 chronic kidney disease ([facility]) E11.22, N18.3 History of colon polyps Z86.010 Hypertensive kidney disease with chronic kidney disease stage III ([facility]) I12.9, N18.3 Labs: CREATININE(mg/dL) Frida Dt/Tm Resulted [...] Medicine Monty Dumont MD [address] [place] [address] [phone] 09/17/2019 Office Visit Cardiology Sushila Lozano MD [address] [place] [address] [phone] Health Maintenance Due Date Last Done Comments *DEPRESSION SCREENING,ANNUAL FOR PTS 12 AND OVER 2014 Yearly B-12 05/01/2018 05/01/2017 CKD GFR USE SMARTSET 51722 09/17/201803/20, 04/07/2017, 10/24/2016, Additional history exists Influenza Vaccine (FLU shot) (#1) 2019 03/01/2018, 03/02/2017, 02/16/2013, Additional history exists CKD HGB USE SMARTSET 96074 03/20/201903/20, 04/07/2017, 01/01/2017, Additional history exists CKD PHOS USE SMARTSET 77784 03/20/2019 03/20/2018 DIABETES-FOOT EXAM 03/20/2019 03/20/2018, 0 [...] Documents on File Type Date Recorded Patient A/C Tech Expl anation Advanced Directive 11/15/2008 12:00 [...] the patient have Health Care Power of Supply Planner? Yes, not currently available Full Code 09/15/2009 [...]
--- OUTSIDE RECORDS SUMMARY | 2023-02-21 02:51 | External Medical Summary | Summary of Care ---
Author Name Unknown Organization [facility] [address] Care Team Providers Care Process Development Chemist Name Role Phone Sylvia Rojas MD Primary Care Provider [phone] Reason for Referral * Precert (Routine) Status Reason Specialty Diagnoses / Procedures Referred By Contact Referred To Contact Pending Review Precert Radiology Diagnoses Chronic coronary artery disease S/P angioplasty with stent Acute coronary syndrome (HCC) Procedures NM MYOCARDIAL PERFUSION IMAGING SPECT MULTIPLE STUDIES WITH PHARMACOLOGIC INTERVENTION Azael Lozano MD [address] [place] [address] * Precert (Routine) Status Reason Specialty Diagnoses / Procedures Referred By Contact Referred To Contact Pending Review Precert Cardiac Studies Diagnoses Chronic coronary artery disease S/P angioplasty with stent Acute coronary syndrome (HCC) Procedures ECHO, COMPLETE (2D), TRANS-THORACIC Azael Lozano MD [address] [place] [address] Reason for Visit * Reason Comments Advice Encounter Details Date Type Department Care Team Description 01/05/2019 Telephone Cardiology, [facility] [address] [place] [address] Azael Lozano MD [address] [place] [address] [phone] Advice Allergies No Known Allergiesdocumented as of this encounter (statuses as of 01/07/2019) Medications Medication Sig Dispensed Refills Start Date [...] mouth daily. 34 Tab 11 10/28/2017 Active Losartan Potassium-HCTZ 100-12.5 MG per tabletIndications:HTN, goal below 140/90 TAKE 1 TABLET BY MOUTH EVERY DAY 90 Tab 3 12/25/2017 Active isosorbide dinitrate (ISORDIL) 20 MG Tablet Take 1 Tab by mouth 3 times a day. at 8am, 12 noon and 4pm. 90 Tab 5 01/20/2018 Active Isosorbide Mononitrate ER 120 MG TB24 Take 1 Tab by mouth daily. In the morning. 90 Tab 1 01/26/2018 Active RANEXA 1000 MG [id number]:Chest pain,Unstable angina (HCC) TAKE 1 TABLET TWICE A DAY 180 Tab 3 06/16/2018 Active clopidogrel (PLAVIX) 75 MG TabletIndications:Aort ocoronary bypass status,Acute coronary syndrome (HCC),Chronic coronary artery disease,Enlarged aorta (HCC) Take 1 Tab by mouth daily. 100 Tab 1 07/17/2018 Active rosuvastatin (CRESTOR) 20 MG TabletIndications:Dysl ipidemia, goal LDL below 70,Dyslipidemia, goal LDL below 160,Mixed dyslipidemia TAKE 1 TABLET DAILY AT 5 P.M. IN THE AFTERNOON 90 Tab 1 09/04/2018 Active metoprolol succinate XL (TOPROL XL) 25 MG [id number]:Chroni c coronary artery disease,Aortocoronary bypass status,HTN, goal [...] TABLET DAILY 90 Tab 0 01/05/2019 Active documented as of this encounter (statuses as of 01/07/2019) Active Problems Problem Noted Date Hypertensive kidney disease with chronic kidney disease stage III 12/10/2018 History of colon polyps 09/08/2018 Diabetes mellitus with stage 3 chronic k idney disease 08/26/2017 Overview: Per CKD protocol #1 HTN, goal below 140/90 07/24/2015 Overview: Per HTN Protocol #27. Enlarged aorta 09/15/2009 Overview: Aortic root 4.4 cm 4.29.2009 echo at [facility]. Dyslipidemia, goal LDL below 70 05/01/20 09 [...] as of this encounter (statuses as of 01/07/2019) Resolved Problems Problem Noted Date Resolved Date [...] Markers for Patients with Cardiovascular Disease Project #[id number] PI: Francoise Tomlin MD Please call [phone] with study related questions INTERFACED RESULT 11/17/2008 10/17/2011 GENOMICS CARDIO RESEARCH OTHER*[id number] 200806/25/2016 Overview: Renamed Per Clinical Trials Billing Project. 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 Orders placed. * Telephone Encounter - Dayana Gracia RN - 01/07/2019 10:30 AM EDT Call made to patient. Message left for patient to return call and discuss CDL. 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 Lozano. Given to nursing staff. * Telephone Encounter - Dayana Gracia RN - 01/05/2019 12:20 PM EDT Next scheduled cardio appointment is 01/28/19. Can a letter be generated prior to appointment? 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 Lozano stating that pt is ok to drive. please advise pt documented in this encounter Plan of Treatment Upcoming Encounters Date Type Specialty Care Team Description 01/28/2019 Office Visit Cardiology Azael Lozano MD [address] [facility] [place] [address] [phone] Scheduled Orders Name Type Priority Associated Diagnoses Orde r Schedule ECHO, COMPLETE (2D), TRANS-THORACIC Echocardiology Routine Chronic coronary artery disease S/P angioplasty with stent Acute coronary syndrome (HCC) Expected: 01/07/2019 (Approximate), Expires: 02/08/2020 NM MYOCARDIAL PERFUSION IMAGING SPECT MULTIPLE STUDIES WITH PHARMACOLOGIC INTERVENTION Cardiology Routine Chronic coronary artery disease S/P angioplasty with stent Acute coronary syndrome (HCC) Ordered: 01/07/2019 Health Maintenance Due Date Last Done Comments *DEPRESSION SCREENING,ANNUAL FOR PTS 12 AND OVER 2014 Yearly B-12 05/01/2018 05/01/2017 CKD GFR USE SMARTSET 01056 09/17/201803/20, 04/07/2017, 10/24/2016, Additional history exists DIABETES-HGBA1C EVERY 6 MONTHS 09/17/2018 03/20/2018, 05/01/2017, 10/24/2016, Additional history exists Influenza Vaccine (FLU shot) (#1) 2019 03/01/2018, 03/02/2017, 02/16/2013, Additional history exists CKD HGB USE SMARTSET 83825 03/20/201903/20, 04/07/2017, 01/01/2017, Additional history exists CKD PHOS USE SMARTSET 72444 03/20/2019 03/20/2018 DIABETES-FOOT EXAM 03/20/2019 03/20/2018, 0 10/24/2016, 01/18/2016, Additional history exists COLONOSCOPY-EVERY 5 YRS AGES 18-100 03/20/2021 03/20/2016, 04/30/2010, 02/05/2002 DTaP,Tdap,and Td Vaccines (2 - Td) 07/10/2022 07/10/2012 PNEUMOCOCCAL ADULT 65 YRS AND OVER Completed 01/18/2016, 11/20/2004 MENINGOCOCCAL (MENACTRA) Aged Out No longer eligible based on patient's age to complete this topic documented as of this encounter Implants Not on filedocumented as of this encounter Visit Diagnoses Diagnosis Chronic coronary artery disease- Primary Coronary atherosclerosis of unspecified type of vessel, [place] or graft S/P angioplasty with stent Postsurgical percutaneous transluminal coronary angioplasty status Acute coronary syndrome (HCC) Intermediate coronary syndrome documented in this encounter Advance Directives Documents on File Type Date Recorded Patient Gluer And Wedger Expl anation Advanced Directive 11/15/2008 12:00 AM [...] the patient have Health Care Power of Sapphire Stylus Grinder? Yes, not currently available Full Code 09/15/2009 [...]
--- OUTSIDE RECORDS SUMMARY | 2023-02-21 02:51 | External Medical Summary | Summary of Care ---
Author Name Unknown Organization [place] [address] Care Team Providers Care Core Winding Operator Name Role Phone Sylvia Rojas MD Primary Care Provider [phone] Reason for Referral * Precert (Routine) Status Reason Specialty Diagnoses / Procedures Referred By Contact Referred To Contact Closed Precert Cardiac Studies Diagnoses Chronic coronary artery disease S/P angioplasty with stent Acute coronary syndrome (HCC) Procedures ECHO, COMPLETE (2D), TRANS-THORACIC Azael Lozano MD [address] [place] [address] Reason for Visit * Reason Comments Cardiology Study Echo * Precert (Routine) Status Reason Specialty Diagnoses / Procedures Referred By Contact Referred To Contact Closed Precert Cardiac Studies Diagnoses Chronic coronary artery disease S/P angioplasty with stent Acute coronary syndrome (HCC) Procedures ECHO, COMPLETE (2D), TRANS-THORACIC Azael Lozano MD [address] [place] [address] Encounter Details Date Type Department Care Team Description 01/22/2019 Cardiac Studies Cardiac Studies, [facility] [address] [place] [address] Gw, Supply Service Worker 2 [address] [place] [address] [phone] Chronic coronary artery disease*; S/P angioplasty with stent; Acute coronary syndrome (HCC) Allergies No Known Allergiesdocumented as of this encounter (statuses as of 01/22/2019) Medications Medication Sig Dispensed Refills Start Date [...] Tab 5 01/20/2018 Active RANEXA 1000 MG BV06Wpaygpejebo:Chest pain,Unstable angina (HCC) TAKE 1 TABLET TWICE A DAY 180 Tab 3 06/16/2018 Active rosuvastatin (CRESTOR) 20 MG TabletIndications:Dysl ipidemia, goal LDL below 70,Dyslipidemia, goal LDL below 160,Mixed dyslipidemia TAKE 1 TABLET DAILY AT 5 P.M. IN THE AFTERNOON 90 Tab 1 09/04/2018 Active metoprolol succinate XL (TOPROL XL) 25 MG [id number]:Chroni c coronary artery disease,Aortocoronary bypass status,HTN, goal [...] as of this encounter (statuses as of 01/22/2019) Active Problems Problem Noted Date Hypertensive kidney disease with chronic kidney disease stage III 12/10/2018 History of colon polyps 09/08/2018 Diabetes mellitus with stage 3 chronic k idney disease 08/26/2017 Overview: Per CKD protocol #1 HTN, goal below 140/90 07/24/2015 Overview: Per HTN Protocol #27. Enlarged aorta 09/15/2009 Overview: Aortic root 4.4 cm 4.29.2009 echo at [facility]. Dyslipidemia, goal LDL below 70 05/01/20 Overview: [...] as of this encounter (statuses as of 01/22/2019) Resolved Problems Problem Noted Date Resolved Date [...] Markers for Patients with Cardiovascular Disease Project #[id number] PI: Francoise Tomlin MD Please call [phone] with study related questions INTERFACED RESULT 11/17/2008 10/17/2011 GENOMICS CARDIO RESEARCH OTHER*[id number] 200806/25/2016 Overview: Renamed Per Clinical Trials Billing Project. Study Titile: Genomic Markers for Patients with Cardiovascular Disease Project #[id number] PI: Francoise Tomlin MD Please call [phone] with study related questions CLASS I-II ANGINA [...] as of this encounter (statuses as of 01/22/2019) Immunizations Name Administration Dates Next Due Pneumococcal [...] Travel End documented as of this encounter Progress Notes * Palak Haque TECH - 01/22/2019 1:23 PM EDT Echo completed today by jose rubalcava per provider order. documented in this encounter Plan of Treatment Upcoming Encounters Date Type Specialty Care Team Description 01/28/2019 Office Visit Cardiology Azael Lozano MD [address] [facility] [place] [address] [phone] Health Maintenance Due Date Last Done Comments *DEPRESSION SCREENING,ANNUAL FOR PTS 12 AND OVER 2014 Yearly B-12 05/01/2018 05/01/2017 CKD GFR USE SMARTSET 03494 09/17/201803/20, 04/07/2017, 10/24/2016, Additional history exists Influenza Vaccine (FLU shot) (#1) 2019 03/01/2018, 03/02/2017, 02/16/2013, Additional history exists CKD HGB USE SMARTSET 99954 03/20/201903/20, 04/07/2017, 01/01/2017, Additional history exists CKD PHOS USE SMARTSET 89879 03/20/2019 03/20/2018 DIABETES-FOOT EXAM 03/20/2019 03/20/2018, 0 [...] Coronary atherosclerosis of unspecified type of vessel, [place] or graft S/P angioplasty with stent Postsurgical percutaneous transluminal coronary angioplasty status Acute coronary syndrome (HCC) Intermediate coronary syndrome documented in this encounter Advance Directives Documents on File Type Date Recorded Patient Saxophone Assembler Expl anation Advanced Directive 11/15/2008 12:00 AM [...] the patient have Health Care Power of Continuing Education Dean? Yes, not currently available Full Code 09/15/2009 [...]
--- OUTSIDE RECORDS SUMMARY | 2023-02-21 02:51 | External Medical Summary | Summary of Care ---
Author Name Unknown Organization [place] [address] Care Team Providers Care Forensics Analyst Name Role Phone Kalli Rojas MD Primary Care Provider [phone] Reason for Visit * Reason Comments Medication Refill Encounter Details Date Type Department Care Team Description 12/21/2018 Refill Family Practice [facility] [address] [place] [address] Kalli Rojas MD [address] [facility] [place] [address] [phone] DM type 2, goal A1C to be determined (HCC) Allergies No Known Allergiesdocumented as of this encounter (statuses as of 12/21/2018) Medications Medication Sig Dispensed Refills Start Date [...] 10/28/2017 Active Losartan Potassium-HCTZ 100-12.5 MG per tabletIndications: HTN, goal below 140/90 TAKE 1 TABLET BY MOUTH EVERY DAY 90 Tab 3 12/25/2017 Active JANUVIA 100 MG TabletIndications: 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) TAKE 1 TABLET DAILY 90 Tab 3 01/06/2018 Active isosorbide dinitrate (ISORDIL) 20 MG Tablet Take 1 Tab by mouth 3 times a day. at 8am, 12 noon and 4pm. 90 Tab 5 01/20/2018 Active Isosorbide Mononitrate ER 120 MG TB24 Take 1 Tab by mouth daily. In the morning. 90 Tab 1 01/26/2018 Active RANEXA 1000 MG [id number]:Ch est pain,Unstable angina (HCC) TAKE 1 TABLET TWICE A DAY 180 Tab 3 06/16/2018 Active clopidogrel (PLAVIX) 75 MG TabletIndications: Aortocoronary bypass status,Acute coronary syndrome (HCC),Chronic coronary artery disease,Enlarged aorta (HCC) Take 1 Tab by mouth daily. 100 Tab 1 07/17/2018 Active rosuvastatin (CRESTOR) 20 MG TabletIndications: Dyslipidemia, goal LDL below 70,Dyslipidemia, goal LDL below 160,Mixed dyslipidemia TAKE 1 TABLET DAILY AT 5 P.M. IN THE AFTERNOON 90 Tab 1 09/04/2018 Active metoprolol succinate XL (TOPROL XL) 25 MG IZ22Vmbkrdofhbx:Ch ronic coronary artery disease,Aortocoron jovanna bypass status,HTN, [...] a day. 90 Tab 5 12/21/2018 Active metFORMIN (GLUCOPHAGE) 850 MG TabletIndications: DM type 2, goal A1C to be determined (HCC) Take 1 Tab by mouth 3 times a day. 90 Tab 5 12/30/2017 12/21/2018 Discontinued glimepiride (AMARYL) 4 MG Tablet TAKE 2 TABLETS BY MOUTH DAILY WITH THE FIRST MEAL OF THE DAY FOR DIABETES 180 Tab 1 07/03/2018 12/21/2018 Discontinued documented as of this encounter (statuses as of 12/21/2018) Active Problems Problem Noted Date Hypertensive kidney disease with chronic kidney disease stage III 12/10/2018 History of colon polyps 09/08/2018 Diabetes mellitus with stage 3 chronic k idney disease 08/26/2017 Overview: Per CKD protocol #1 HTN, goal below 140/90 07/24/2015 Overview: Per HTN Protocol #27. Enlarged aorta 09/15/2009 Overview: Aortic root 4.4 cm 4.29.2009 echo at [facility]. Dyslipidemia, goal LDL below 70 [...] as of this encounter (statuses as of 12/21/2018) Resolved Problems Problem Noted Date Resolved Date [...] Markers for Patients with Cardiovascular Disease Project #[id number] PI: Francoise Tomlin MD Please call [phone] with study related questions INTERFACED RESULT 11/17/2008 10/17/2011 GENOMICS CARDIO RESEARCH OTHER*[id number] 200806/25/2016 Overview: Renamed Per Clinical Trials Billing Project. Study Titile: Genomic Markers for Patients with Cardiovascular Disease Project #[id number] PI: Francoise Tomlin MD Please call [phone] with study related questions CLASS I-II ANGINA [...] as of this encounter (statuses as of 12/21/2018) Immunizations Name Administration Dates Next Due Pneumococcal [...] Comments:quit 30 yrs ago, wh ile in [employer] for 4 years Alcohol Use Drinks/Week oz/Week Comments Yes a beer per nigh t Sex Assigned at Date Recorded Not on file Job Start Date Occupation Industry Not on file Not on file Not on file Travel History Travel Start Travel End documented as of this encounter Miscellaneous Notes * Telephone Encounter - Maile Franco LPN - 12/21/2018 2:44 PM EDT Rx's emailed to pharmacy. Left message on identified answering machine that Rx's sent to pharmacy * Telephone Encounter - Kalli Rojas MD - 12/21/2018 2:28 PM EDT Signed Prescriptions: Disp Refills glimepiride (AMARYL) 4 MG Tablet 180 Tab1 Sig: TAKE 2 TABLETS BY MOUTH DAILY WITH THE FIRST MEAL OF THE DAY FOR DIABETES Authorizing Provider: KALLI ROJAS metFORMIN (GLUCOPHAGE) 850 MG Tablet 90 Tab 5 Sig: Take 1 Tab by mouth 3 times a day. Authorizing Provider: KALLI ROJAS * Telephone Encounter - Isadora Hanna OSA - 12/21/2018 2:11 PM EDT Pending Prescriptions: Disp Refills glimepiride (AMARYL) 4 MG Tablet 180 Tab1 Sig: TAKE 2 TABLETS BY MOUTH DAILY WITH THE FIRST MEAL OF THE DAY FOR DIABETES metFORMIN (GLUCOPHAGE) 850 MG Tablet 90 Tab 5 Sig: Take 1 Tab by mouth 3 times a day. Last Office Visit: 03/20/2018 Next Office Visit: No Future Appointments If no future appointments scheduled, and last appointment is greater than a year ago, please schedule patient for a follow-up appointment Last date the medication was ordered: Glimepiride: 07-03-2018 Metformin: 12-30-2017 Patient Phone Numbers Labs: Lab Results Component Value Date/Time CREAT 1.3 (H) 03/20/2018 09:15 AM POTASSIUM 4.6 03/20/2018 09:15 AM TSH 2.81 01/01/2017 01:44 PM LDLCALC 20 11/23/2011 05:00 AM LDLDIRECT 50 10/24/2016 11:50 AM ALT 18 10/24/2016 11:50 AM HGBA1C 7.0 (H) 03/20/2018 09:15 AM documented in this encounter Plan of Treatment Upcoming Encounters Date Type Specialty Care Team Description 01/28/2019 Office Visit Cardiology Azael Lozano MD [address] [place] [address] [phone] Health Maintenance Due Date Last Done Comments *DEPRESSION SCREENING,ANNUAL FOR PTS 12 AND OVER 2014 Yearly B-12 05/01/2018 05/01/2017 CKD GFR USE SMARTSET 44476 09/17/201803/20, 04/07/2017, 10/24/2016, Additional history exists DIABETES-HGBA1C EVERY 6 MONTHS 09/17/2018 03/20/2018, 05/01/2017, 10/24/2016, Additional history exists Influenza Vaccine (FLU shot) (#1) 2018 03/01/2018, 03/02/2017, 02/16/2013, Additional history exists CKD HGB USE SMARTSET 47417 03/20/201903/20, 04/07/2017, 01/01/2017, Additional history exists CKD PHOS USE SMARTSET 62577 03/20/2019 03/20/2018 DIABETES-FOOT EXAM 03/20/2019 03/20/2018, 0 [...] Documents on File Type Date Recorded Patient Mortuary Technician Expl anation Advanced Directive 11/15/2008 12:00 [...] patient have Health Care Power of Manager Manufacturing? Yes, not currently available Full Code 09/15/2009 [...]
--- OUTSIDE RECORDS SUMMARY | 2023-02-21 02:51 | External Medical Summary | Summary of Care ---
Author Name Unknown Organization [place] [address] Care Team Providers Care Wire Rigger Name Role Phone Sylvia Rojas MD Primary Care Provider [phone] Reason for Visit * Reason Comments Order Request Encounter Details Date Type Department Care Team Description 01/12/2019 Telephone Family Practice [facility] [address] [facility] [place] [address] Sylvia Rojas MD [address] [facility] [place] [id number] Order Request Allergies No Known Allergiesdocumented as of this encounter (statuses as of 01/12/2019) Medications Medication Sig Dispensed Refills Start Date [...] Tab 1 01/26/2018 Active RANEXA 1000 MG LH64Lrmpewzwirk:Chest pain,Unstable angina (HCC) TAKE 1 TABLET TWICE [...] metoprolol succinate XL (TOPROL XL) 25 MG OQ13Ogtutpyzypc:Chroni c coronary artery disease,Aortocoronary bypass status,HTN, goal [...] as of this encounter (statuses as of 01/12/2019) Active Problems Problem Noted Date Hypertensive kidney [...] as of this encounter (statuses as of 01/12/2019) Resolved Problems Problem Noted Date Resolved Date [...] Markers for Patients with Cardiovascular Disease Project #[id number] PI: Francoise Tomlin MD Please call [phone] with study related questions INTERFACED RESULT 11/17/2008 10/17/2011 [employer] CARDIO RESEARCH OTHER*[id number] 200806/25/2016 Overview: Renamed Per Clinical Trials Billing Project. Study Titile: Genomic Markers for Patients with Cardiovascular Disease Project #[id number] PI: Francoise Tomlin MD Please call [phone] with study related questions CLASS I-II ANGINA [...] as of this encounter (statuses as of 01/12/2019) Immunizations Name Administration Dates Next Due Pneumococcal [...] Comments:quit 30 yrs ago, wh ile in [employer] for 4 years Alcohol Use Drinks/Week oz/Week Comments Yes a beer per nigh t Sex Assigned at Date Recorded Not on file Job Start Date Occupation Industry Not on file Not on file Not on file Travel History Travel Start Travel End documented as of this encounter Miscellaneous Notes * Telephone Encounter - Rosie Cohen RN - 01/12/2019 1:20 PM EDT Pt aware order has been placed for A1C * Telephone Encounter - Sylvia Rojas MD - 01/12/2019 1:01 PM EDT Ordered * Telephone Encounter - Mercedez Moon OSA - 01/12/2019 9:39 AM EDT An order was requested for this patient. Name of Requesting Provider: PT Order Requested: LAB/A1C Diagnosis/Reason for Request: DOT CPE Does the order need to be faxed somewhere? If so, where?: Fax Number, if applicable: Call Back Number: [phone] documented in this encounter Plan of Treatment Upcoming Encounters Date Type Specialty Care Team Description 01/22/2019 Cardiac Studies Cardiac Studies Gw, Superintendent Pressure [address] [place] [address] [phone] 01/22/2019 Imaging Radiology 01/28/2019 Office Visit Cardiology Azael Lozano MD [address] [place] [address] [phone] Scheduled Orders Name Type Priority Associated Diagnoses Orde r Schedule HEMOGLOBIN A1C Lab Routine DM type 2, goal A1C to be determined (HCC) Expected: 01/12/2019 (Approximate), Expires: 01/12/2020 Health Maintenance Due Date Last Done Comments *DEPRESSION SCREENING,ANNUAL FOR PTS 12 AND OVER 2014 Yearly B-12 05/01/2018 05/01/2017 CKD GFR USE SMARTSET 65248 09/17/201803/20, 04/07/2017, 10/24/2016, Additional history exists DIABETES-HGBA1C EVERY 6 MONTHS 09/17/2018 03/20/2018, 05/01/2017, 10/24/2016, Additional history exists Influenza Vaccine (FLU shot) (#1) 2019 03/01/2018, 03/02/2017, 02/16/2013, Additional history exists CKD HGB USE SMARTSET 02841 03/20/201903/20, 04/07/2017, 01/01/2017, Additional history exists CKD PHOS USE SMARTSET 69816 03/20/2019 03/20/2018 DIABETES-FOOT EXAM 03/20/2019 03/20/2018, 0 [...] Documents on File Type Date Recorded Patient Switch Operators Supervisor Expl anation Advanced Directive 11/15/2008 12:00 [...] the patient have Health Care Power of Business Quality Assurance Analyst? Yes, not currently available Full Code [...]
--- OUTSIDE RECORDS SUMMARY | 2023-02-21 02:51 | External Medical Summary | Summary of Care ---
Author Name Unknown Organization [place] [address] Care Team Providers Care Technical Writing Lead/Mgr Name Role Phone Sylvia Rojas MD Primary Care Provider [phone] Reason for Visit * Reason Comments Encounter Created in Error Encounter Details Date Type Department Care Team Description 01/07/2019 Telephone Cardiology, [facility] 132 [place] [address] Dayana Gracia RN [address] [place] [address] [phone] Encounter Created in Error Allergies No Known Allergiesdocumented as of this [...] Tab 1 01/26/2018 Active RANEXA 1000 MG IA26Bpagjgfrkad:Chest pain,Unstable angina (HCC) TAKE 1 TABLET TWICE [...] metoprolol succinate XL (TOPROL XL) 25 MG WC42Eyrvoadimgz:Chroni c coronary artery disease,Aortocoronary bypass status,HTN, goal [...] Aortic root 4.4 cm 4.29.2009 echo at [facility]. Dyslipidemia, goal LDL below 70 [...] # PI: Francoise Tomlin MD Please call [phone] with study related questions INTERFACED RESULT 11/17/2008 10/17/2011 [employer] CARDIO RESEARCH OTHER*[id number] 200806/25/2016 Overview: Renamed Per Clinical Trials Billing Project. Study Titile: Genomic Markers for Patients with Cardiovascular Disease Project # PI: Francoise Tomlin MD Please call [phone] with study related questions CLASS I-II ANGINA [...] Comments:quit 30 yrs ago, wh ile in [employer] for 4 years Alcohol Use Drinks/Week oz/Week Comments Yes a beer per nigh t Sex Assigned at Date Recorded Not on file Job Start Date Occupation Industry Not on file Not on file Not on file Travel History Travel Start Travel End documented as of this encounter Plan of Treatment Upcoming Encounters Date Type Specialty Care Team Description 01/28/2019 Office Visit Cardiology Azael Lozano MD [address] [place] [address] [place] [address] [phone] Health Maintenance Due Date Last Done Comments *DEPRESSION SCREENING,ANNUAL FOR PTS 12 AND OVER 2014 Yearly B-12 05/01/2018 05/01/2017 CKD GFR USE SMARTSET 77697 09/17/201803/20, 04/07/2017, 10/24/2016, Additional history exists DIABETES-HGBA1C EVERY 6 MONTHS 09/17/2018 03/20/2018, 05/01/2017, 10/24/2016, Additional history exists Influenza Vaccine (FLU shot) (#1) 2019 03/01/2018, 03/02/2017, 02/16/2013, Additional history exists CKD HGB USE SMARTSET 32033 03/20/201903/20, 04/07/2017, 01/01/2017, Additional history exists CKD PHOS USE SMARTSET 68685 03/20/2019 03/20/2018 DIABETES-FOOT EXAM 03/20/2019 03/20/2018, 0 [...] Documents on File Type Date Recorded Patient Administrative Office Clerk Expl anation Advanced Directive 11/15/2008 12:00 [...] the patient have Health Care Power of Revenue Integrity Analyst? Yes, not currently available Full Code [...]
--- OUTSIDE RECORDS SUMMARY | 2023-02-21 02:51 | External Medical Summary | Summary of Care ---
Author Name Unknown Organization [place] [address] Care Team Providers Care Incident Manager Name Role Phone Sylvia Rojas MD Primary Care Provider [phone] Reason for Visit * Reason Comments Previsit Planning Encounter Details Date Type Department Care Team Description 11/10/2018 Telephone Family Practice [facility] [address] [place] [id number] Sylvia Rojas MD 132 [facility] [address] [phone] Previsit Planning Allergies No Known Allergiesdocumented as of this encounter (statuses as of 11/10/2018) Medications Medication Sig Dispensed Refills Start Date End Date Status ONE TOUCH ULTRA DEVIIndications:DM type 2, not at goal ([facility]) check daily 1 0 12/11/2005 Active ONE TOUCH ULTRA CONTROL SOLNIndications:DM type 2, not at goal ([facility]) check daily 1 11 12/11/2005 Active ONE TOUCH ULTRA TEST STRPIndications:DM type 2, not at goal ([facility]) test daily 1 box 11 12/11/2005 Active ONE TOUCH ULTRASOFT LANCETS MISCIndications:DM type 2, not at goal ([facility]) test daily 1 box 11 12/11/2005 Active nitroglycerin (NITROSTAT) 0.4 MG SUBLIndications:Chroni c coronary artery disease DISSOLVE 1 TABLET UNDER THE TONGUE EVERY 5 MINUTES FOR CHEST PAIN. UP TO 3 DOSES IN 15 MINUTES. 25 Tab 1 05/01/2017 Active aspirin 81 MG chewable tablet Take 1 Tab by mouth daily. 34 Tab 11 10/28/2017 Active Losartan Potassium-HCTZ 100-12.5 MG per tabletIndications:HTN, goal below 140/90 TAKE 1 TABLET BY MOUTH EVERY DAY 90 Tab 3 12/25/2017 Active metFORMIN (GLUCOPHAGE) 850 MG TabletIndications:DM type 2, goal A1C to be determined (HCC) Take 1 Tab by mouth 3 times a day. 90 Tab 5 12/30/2017 Active JANUVIA 100 MG TabletIndications:Diab etes mellitus [...] Tab 1 01/26/2018 Active RANEXA 1000 MG ML53Zruifzhqkss:Chest pain,Unstable angina (HCC) TAKE 1 TABLET TWICE A DAY 180 Tab 3 06/16/2018 Active glimepiride (AMARYL) 4 MG Tablet TAKE 2 TABLETS BY MOUTH DAILY WITH THE FIRST MEAL OF THE DAY FOR DIABETES 180 Tab 1 07/03/2018 Active clopidogrel (PLAVIX) 75 MG TabletIndications:Aort ocoronary [...] metoprolol succinate XL (TOPROL XL) 25 MG DJ31Nzqqrwnnrxo:Chroni c coronary artery disease,Aortocoronary bypass status,HTN, goal below 140/90 TAKE 2 TABLETS BY MOUTH EVERY DAY 180 Tab 1 10/08/2018 Active amLODIPine (NORVASC) 5 MG TabletIndications:HTN, goal below 130/80 Take 1 Tab by mouth daily. 90 Tab 1 11/02/2018 Active documented as of this encounter (statuses as of 11/10/2018) Active Problems Problem Noted Date History of colon polyps 09/08/2018 Diabetes mellitus with stage 3 chronic k idney disease 08/26/2017 Overview: Per CKD protocol #1 HTN, goal below 140/90 07/24/2015 Overview: Per HTN Protocol #27. Enlarged aorta 09/15/2009 Overview: Aortic root 4.4 cm 4.29.2009 echo at [facility]. Dyslipidemia, goal LDL below 70 [...] as of this encounter (statuses as of 11/10/2018) Resolved Problems Problem Noted Date Resolved Date [...] Markers for Patients with Cardiovascular Disease Project #[id number] PI: Francoise Tomlin MD Please call [phone] with study related questions INTERFACED RESULT 11/17/2008 10/17/2011 GENOMICS CARDIO RESEARCH OTHER*[id number] 200806/25/2016 Overview: Renamed Per Clinical Trials Billing Project. Study Titile: Genomic Markers for Patients with Cardiovascular Disease Project # PI: Francoise Tomlin MD Please call [phone] with study related questions CLASS I-II ANGINA [...] as of this encounter (statuses as of 11/10/2018) Immunizations Name Administration Dates Next Due Pneumococcal [...] Comments:quit 30 yrs ago, wh ile in [employer] for 4 years Alcohol Use Drinks/Week oz/Week Comments Yes a beer per [place] t Sex Assigned at Date Recorded Not on file Job Start Date Occupation Industry Not on file Not on file Not on file Travel History Travel Start Travel End documented as of this encounter Miscellaneous Notes * Telephone Encounter - Fariba Crump LPN - 11/10/2018 9:50 AM EDT Patient contacted for Care Gaps Comprehensive Care Outreach. Last Office Visit: 03/20/2018 Next Office Visit: 12/17/2018 Scheduled Provider(s): Sylvia Rojas MD Health Maintenance Due Topic Date Due *DEPRESSION SCREENING, ANNUAL FOR PTS 18 AND OVER 2014 Yearly B-12 05/01/2018 DIABETES-HGBA1C EVERY 6 MONTHS 09/17/2018 CKD GFR USE SMARTSET 20652 09/17/2018 Outreach action taken: Contacted: Left message. documented in this encounter Plan of Treatment Upcoming Encounters Date Type Specialty Care Team Description 12/17/2018 Office Visit Family Medicine Sylvia Rojas MD [address] [place] [address] [phone] 01/28/2019 Office Visit Cardiology Azael Lozano MD [address] [place] [address] [phone] Health Maintenance Due Date Last Done Comments *DEPRESSION SCREENING, ANNUAL FOR PTS 18 AND OVER 2014 Yearly B-12 05/01/2018 05/01/2017 CKD GFR USE SMARTSET 20236 09/17/201803/20, 04/07/2017, 10/24/2016, Additional history exists DIABETES-HGBA1C EVERY 6 MONTHS 09/17/2018 03/20/2018, 05/01/2017, 10/24/2016, Additional history exists CKD HGB USE SMARTSET 62788 03/20/201903/20, 04/07/2017, 01/01/2017, Additional history exists CKD PHOS USE SMARTSET 51532 03/20/2019 03/20/2018 DIABETES-FOOT EXAM 03/20/2019 03/20/2018, 0 10/24/2016, 01/18/2016, Additional history exists COLONOSCOPY-EVERY 5 YRS AGES 18-100 03/20/2021 03/20/2016, 04/30/2010, 02/05/2002 DTaP,Tdap,and Td Vaccines (2 - Td) 07/10/2022 07/10/2012 PNEUMOCOCCAL ADULT 65 YRS AND OVER Completed 01/18/2016, 11/20/2004 Influenza Vaccine (FLU shot) Completed , 03/02/2017, 02/16/2013, Additional history exists MENINGOCOCCAL (MENACTRA) Aged Out No longer eligible based on patient's age to complete this topic documented as of this encounter Implants Not on filedocumented as of this encounter Advance Directives Documents on File Type Date Recorded Patient Cupola Melter Helper Expl anation Advanced Directive 11/15/2008 12:00 AM [...] the patient have Health Care Power of Knowledge Management Advisor? Yes, not currently available Full Code 09/15/2009 [...]
--- OUTSIDE RECORDS SUMMARY | 2023-02-21 02:51 | External Medical Summary | Summary of Care ---
Author Name Unknown Organization [place] [address] Care Team Providers Care Regional Airline Pilot Name Role Phone Sylvia Rojas MD Primary Care Provider [phone] Reason for Visit * Reason Comments Medication Refill Encounter Details Date Type Department Care Team Description 01/13/2019 Refill Cardiology, [facility] 132 [facility] [place] [id number] Sushila Lozano MD 132 [place] [address] [phone] HTN, goal below 140/90 Allergies No Known Allergiesdocumented as of this encounter (statuses as of 01/13/2019) Medications Medication Sig Dispensed Refills Start Date [...] Tab 1 01/26/2018 Active RANEXA 1000 MG SS72Yexxxbqkteb:Ch est pain,Unstable angina (HCC) TAKE 1 TABLET [...] metoprolol succinate XL (TOPROL XL) 25 MG BE23Dcuoinrdfgt:Ch ronic coronary artery disease,Aortocoron jovanna bypass status,HTN, [...] mouth daily. 90 Tab 3 01/13/2019 Active Losartan Potassium-HCTZ 100-12.5 MG per tabletIndications: HTN, goal below 140/90 TAKE 1 TABLET BY MOUTH EVERY DAY 90 Tab 3 12/25/2017 01/13/2019 Discontinued documented as of this encounter (statuses as of 01/13/2019) Active Problems Problem Noted Date Hypertensive kidney disease with chronic kidney disease stage III 12/10/2018 History of colon polyps 09/08/2018 Diabetes mellitus with stage 3 chronic k idney disease 08/26/2017 Overview: Per CKD protocol #1 HTN, goal below 140/90 07/24/2015 Overview: Per HTN Protocol #27. Enlarged aorta 09/15/2009 Overview: Aortic root 4.4 cm 4.29.2009 echo at [facility]. Dyslipidemia, goal LDL below 70 05/01/20 [...] as of this encounter (statuses as of 01/13/2019) Resolved Problems Problem Noted Date Resolved Date [...] Markers for Patients with Cardiovascular Disease Project #[id number] PI: Francoise Tomlin MD Please call [phone] with study related questions INTERFACED RESULT 11/17/2008 10/17/2011 GENOMICS CARDIO RESEARCH OTHER*[id number] 200806/25/2016 Overview: Renamed Per Clinical Trials Billing Project. Study Titile: Genomic Markers for Patients with Cardiovascular Disease Project #[id number] PI: Francoise Tomlin MD Please call [phone] with study related questions CLASS I-II ANGINA [...] as of this encounter (statuses as of 01/13/2019) Immunizations Name Administration Dates Next Due Pneumococcal [...] Comments:quit 30 yrs ago, wh ile in [employer] for 4 years Alcohol Use Drinks/Week oz/Week Comments Yes a beer per nigh t Sex Assigned at Date Recorded Not on file Job Start Date Occupation Industry Not on file Not on file Not on file Travel History Travel Start Travel End documented as of this encounter Miscellaneous Notes * Telephone Encounter - Sushila Lozano MD - 01/13/2019 12:02 PM EDT Signed Prescriptions: Disp Refills Losartan Potassium-HCTZ 100-12.5 MG per ta*90 Tab 3 Sig: Take 1 Tab by mouth daily. Authorizing Provider: SUSHILA LOZANO * Telephone Encounter - Silvia Beaulieu RN - 01/13/2019 9:08 AM EDT Pending Prescriptions: Disp Refills Losartan Potassium-HCTZ 100-12.5 MG per t*90 Tab 3 Sig: Take 1 Tab by mouth daily. Last Office Visit: 06/17/2018 Next Office Visit: 01/28/2019 Scheduled Provider(s): Sushila Lozano MD Last medication order date: Have you choosen a preferred pharm?? 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 Dyslipidemia, goal LDL below 70 E78.5 Enlarged aorta ([facility]) I77.89 S/P angioplasty with stent Z95.820 DM type 2, goal A1C to be determined ([facility]) E11.9 HTN, goal below 140/90 I10 Diabetes mellitus with stage 3 chronic kidney disease ([facility]) E11.22, N18.3 History of colon polyps Z86.010 Hypertensive kidney disease with chronic kidney disease stage III ([facility]) I12.9, N18.3 Labs: CREATININE(mg/dL) Frida Dt/Tm Resulted [...] Description 01/22/2019 Cardiac Studies Cardiac Studies Gw, Fabrication Engineer 2 [address] [place] [address] [phone] 01/22/2019 Imaging Radiology 01/28/2019 Office Visit Cardiology Sushila Lozano MD [address] [place] [address] [phone] Health Maintenance Due Date Last Done Comments *DEPRESSION SCREENING,ANNUAL FOR PTS 12 AND OVER 2014 Yearly B-12 05/01/2018 05/01/2017 CKD GFR USE SMARTSET 61038 09/17/201803/20, 04/07/2017, 10/24/2016, Additional history exists Influenza Vaccine (FLU shot) (#1) 2019 03/01/2018, 03/02/2017, 02/16/2013, Additional history exists CKD HGB USE SMARTSET 83168 03/20/201903/20, 04/07/2017, 01/01/2017, Additional history exists CKD PHOS USE SMARTSET 47637 03/20/2019 03/20/2018 DIABETES-FOOT EXAM 03/20/2019 03/20/2018, 0 [...] on File Type Date Recorded Patient Senior Billing Consultant Expl anation Advanced Directive 11/15/2008 12:00 [...] the patient have Health Care Power of Special Forces Weapons Sergeant? Yes, not currently available Full Code 09/15/2009 [...]
--- OUTSIDE RECORDS SUMMARY | 2023-02-21 02:51 | External Medical Summary | Summary of Care ---
Author Name Unknown Organization [place] [address] Care Team Providers Care Meat Team Member Name Role Phone Kalli Rojas MD Primary Care Provider [phone] Reason for Visit * Reason Comments Medication Refill Encounter Details Date Type Department Care Team Description 01/19/2019 Refill Family Practice [facility] 132 [facility] [place] [address] Kalli Rojas MD 132 [place] [address] [phone] Allergies No Known Allergiesdocumented as of this encounter (statuses as of 01/19/2019) Medications Medication Sig Dispensed Refills Start Date [...] Tab 5 01/20/2018 Active RANEXA 1000 MG UG46Ixingnmxwwh:Ch est pain,Unstable angina (HCC) TAKE 1 TABLET TWICE A DAY 180 Tab 3 06/16/2018 Active rosuvastatin (CRESTOR) 20 MG TabletIndications: Dyslipidemia, goal LDL below 70,Dyslipidemia, goal LDL below 160,Mixed dyslipidemia TAKE 1 TABLET DAILY AT 5 P.M. IN THE AFTERNOON 90 Tab 1 09/04/2018 Active metoprolol succinate XL (TOPROL XL) 25 MG AP64Oqfdfabfxcu:Ch ronic coronary artery disease,Aortocoron jovanna bypass status,HTN, [...] the morning. 90 Tab 1 01/19/2019 Active Isosorbide Mononitrate ER 120 MG TB24 Take 1 Tab by mouth daily. In the morning. 90 Tab 1 01/26/2018 01/19/2019 Discontinued documented as of this encounter (statuses as of 01/19/2019) Active Problems Problem Noted Date Hypertensive kidney disease with chronic kidney disease stage III 12/10/2018 History of colon polyps 09/08/2018 Diabetes mellitus with stage 3 chronic k idney disease 08/26/2017 Overview: Per CKD protocol #1 HTN, goal below 140/90 07/24/2015 Overview: Per HTN Protocol #27. Enlarged aorta 09/15/2009 Overview: Aortic root 4.4 cm 4.29.2009 echo at [facility]. Dyslipidemia, goal LDL below 70 [...] as of this encounter (statuses as of 01/19/2019) Resolved Problems Problem Noted Date Resolved Date [...] Markers for Patients with Cardiovascular Disease Project #[id number] PI: Francoise Tomlin MD Please call [phone] with study related questions INTERFACED RESULT 11/17/2008 10/17/2011 [employer] CARDIO RESEARCH OTHER*[id number] 200806/25/2016 Overview: Renamed Per Clinical Trials Billing Project. Study Titile: Genomic Markers for Patients with Cardiovascular Disease Project #[id number] PI: Francoise Tomlin MD Please call [phone] with study related questions CLASS I-II ANGINA [...] as of this encounter (statuses as of 01/19/2019) Immunizations Name Administration Dates Next Due Pneumococcal [...] Comments:quit 30 yrs ago, wh ile in [employer] for 4 years Alcohol Use Drinks/Week oz/Week Comments Yes a beer per nigh t Sex Assigned at Date Recorded Not on file Job Start Date Occupation Industry Not on file Not on file Not on file Travel History Travel Start Travel End documented as of this encounter Miscellaneous Notes * Telephone Encounter - Kalli Rojas MD - 01/19/2019 11:56 AM EDT Signed Prescriptions: Disp Refills Isosorbide Mononitrate ER 120 MG TB24 90 Tab 1 Sig: Take 1 Tab by mouth daily. In the morning. Authorizing Provider: KALLI ROJSA * Telephone Encounter - Elise Gonzalez LPN - 01/19/2019 11:18 AM EDT Pending Prescriptions: Disp Refills Isosorbide Mononitrate ER 120 MG TB24 90 Tab 1 Sig: Take 1 Tab by mouth daily. In the morning. Last Office Visit: 03/20/2018 Next Office Visit: No Future Appointments If no future appointments scheduled, and last appointment is greater than a year ago, please schedule patient for a follow-up appointment Last date the medication was ordered: Pharmacy: [facility] [id number] [place] Is this request for a controlled substance?No [...] Description 01/22/2019 Cardiac Studies Cardiac Studies Gw, Rug Hooker Hand 2 [address] [place] [address] [phone] 01/22/2019 Imaging Radiology 01/28/2019 Office Visit Cardiology Azael Lozano MD [address] [place] [address] [phone] Health Maintenance Due Date Last Done Comments *DEPRESSION SCREENING,ANNUAL FOR PTS 12 AND OVER 2014 Yearly B-12 05/01/2018 05/01/2017 CKD GFR USE SMARTSET 43701 09/17/201803/20, 04/07/2017, 10/24/2016, Additional history exists Influenza Vaccine (FLU shot) (#1) 2019 03/01/2018, 03/02/2017, 02/16/2013, Additional history exists CKD HGB USE SMARTSET 61065 03/20/201903/20, 04/07/2017, 01/01/2017, Additional history exists CKD PHOS USE SMARTSET 73129 03/20/2019 03/20/2018 DIABETES-FOOT EXAM 03/20/2019 03/20/2018, 0 [...] on File Type Date Recorded Patient Technical Sme Expl anation Advanced Directive 11/15/2008 12:00 AM [...] the patient have Health Care Power of Automatic Data Processing Planner? Yes, not currently available Full Code [...]
--- OUTSIDE RECORDS SUMMARY | 2023-02-21 02:51 | External Medical Summary | Summary of Care ---
Author Name Unknown Organization [place] [address] Care Team Providers Care Tarp Repairer Name Role Phone Sylvia Rojas MD Primary Care Provider [phone] Encounter Details Date Type Department Care Team Description 01/22/2019 Orders Only Cardiology, [facility] [address] [place] [address] Azael Lozano MD [address] [place] [address] Chronic coronary artery disease* Allergies No Known Allergiesdocumented as of this [...] Tab 5 01/20/2018 Active RANEXA 1000 MG [id number]:Chest pain,Unstable angina (HCC) TAKE 1 TABLET TWICE A DAY 180 Tab 3 06/16/2018 Active rosuvastatin (CRESTOR) 20 MG TabletIndications:Dysl ipidemia, goal LDL below 70,Dyslipidemia, goal LDL below 160,Mixed dyslipidemia TAKE 1 TABLET DAILY AT 5 P.M. IN THE AFTERNOON 90 Tab 1 09/04/2018 Active metoprolol succinate XL (TOPROL XL) 25 MG [id number]:Chroni c coronary artery disease,Aortocoronary bypass status,HTN, goal [...] 4.29.2009 echo at [facility]. Dyslipidemia, goal LDL below 70 [...] # PI: Francoise Tomlin MD Please call [phone] with study related questions INTERFACED RESULT 11/17/2008 10/17/2011 GENOMICS CARDIO RESEARCH OTHER*[id number] 200806/25/2016 Overview: Renamed Per Clinical Trials Billing Project. Study Titile: Genomic Markers for Patients with Cardiovascular Disease Project # PI: Francoise Tomlin MD Please call [phone] with study related questions CLASS I-II ANGINA [...] Comments:quit 30 yrs ago, wh ile in [employer] for 4 years Alcohol Use Drinks/Week oz/Week [...] Description 01/22/2019 Cardiac Studies Cardiac Studies Gw, Sap Bpc Architect 2 [address] [place] [address] [phone] 01/22/2019 Imaging Radiology 01/28/2019 Office Visit Cardiology Azael Lozano MD [address] [place] [address] [phone] Scheduled Orders Name Type Priority Associated Diagnoses Orde r Schedule EKG EKG Routine Chronic coronary artery disease Expected: 01/28/2019, Expires: 03/24/2019 Health Maintenance Due Date Last Done Comments *DEPRESSION SCREENING,ANNUAL FOR PTS 12 AND OVER 2014 Yearly B-12 05/01/2018 05/01/2017 CKD GFR USE SMARTSET 33961 09/17/201803/20, 04/07/2017, 10/24/2016, Additional history exists Influenza Vaccine (FLU shot) (#1) 2019 03/01/2018, 03/02/2017, 02/16/2013, Additional history exists CKD HGB USE SMARTSET 44000 03/20/201903/20, 04/07/2017, 01/01/2017, Additional history exists CKD PHOS USE SMARTSET 38308 03/20/2019 03/20/2018 DIABETES-FOOT EXAM 03/20/2019 03/20/2018, 0 [...] Coronary atherosclerosis of unspecified type of vessel, [place] or graft documented in this encounter Advance Directives Documents on File Type Date Recorded Patient Electronics Technology Instructor Expl anation Advanced Directive 11/15/2008 12:00 AM Advanced Directive 11/21/2008 12:00 AM Advanced Directive Advanced Directive 09/16/2009 12:00 AM Advanced Directive 11/24/2011 3:43 PM Advanced Directive Advanced Directive Latest Code Status on File Code Status Date Activated Date Inactivated Comments Full Code 11/22/2011 11:38 PM 11/25/2011 9:22 PM This order reflects the patients wishes and were consensually agreed upon. Discussion of Advance Directives occurred with: Patient/Family Does the patient have a Living Will? Yes, not cu rrently available Does the patient have Health Care Power of Employee Communications Specialist? Yes, not currently available Full Code [...]
--- OUTSIDE RECORDS SUMMARY | 2023-02-21 02:51 | External Medical Summary | Summary of Care ---
Author Name Unknown Organization [place] [address] Care Team Providers Care Sheet Metal Mechanic Name Role Phone Kalli Rojas MD Primary Care Provider [phone] Reason for Visit * Reason Comments Medication Refill Encounter Details Date Type Department Care Team Description 11/17/2018 Refill Family Practice [facility] [address] [place] [id number] Kalli Rojas MD [address] [facility] [place] [address] [phone] Chronic coronary artery disease Allergies No Known Allergiesdocumented as of this encounter (statuses as of 11/17/2018) Medications Medication Sig Dispensed Refills Start Date [...] 3 12/25/2017 Active metFORMIN (GLUCOPHAGE) 850 MG TabletIndications: DM type 2, goal A1C to be determined (HCC) Take 1 Tab by mouth 3 times a day. 90 Tab 5 12/30/2017 Active JANUVIA 100 MG TabletIndications: Diabetes mellitus [...] Tab 1 01/26/2018 Active RANEXA 1000 MG [id number]:Ch est pain,Unstable angina (HCC) TAKE 1 TABLET TWICE A DAY 180 Tab 3 06/16/2018 Active glimepiride (AMARYL) 4 MG Tablet TAKE 2 TABLETS BY MOUTH DAILY WITH THE FIRST MEAL OF THE DAY FOR DIABETES 180 Tab 1 07/03/2018 Active clopidogrel (PLAVIX) 75 MG TabletIndications: Aortocoronary [...] metoprolol succinate XL (TOPROL XL) 25 MG SS85Cwfohetohkp:Ch ronic coronary artery disease,Aortocoron jovanna bypass status,HTN, [...] 15 MINUTES. 25 Tab 1 11/17/2018 Active nitroglycerin (NITROSTAT) 0.4 MG SUBLIndications:Ch ronic coronary artery disease DISSOLVE 1 TABLET UNDER THE TONGUE EVERY 5 MINUTES FOR CHEST PAIN. UP TO 3 DOSES IN 15 MINUTES. 25 Tab 1 05/01/2017 11/17/2018 Discontinued documented as of this encounter (statuses as of 11/17/2018) Active Problems Problem Noted Date History of colon polyps 09/08/2018 Diabetes mellitus with stage 3 chronic k idney disease 08/26/2017 Overview: Per CKD protocol #1 HTN, goal below 140/90 07/24/2015 Overview: Per HTN Protocol #27. Enlarged aorta 09/15/2009 Overview: Aortic root 4.4 cm 4.29.2009 echo at [facility]. Dyslipidemia, goal LDL below 70 [...] as of this encounter (statuses as of 11/17/2018) Resolved Problems Problem Noted Date Resolved Date [...] Markers for Patients with Cardiovascular Disease Project #[id number] PI: Francoise Tomlin MD Please call [phone] with study related questions INTERFACED RESULT 11/17/2008 10/17/2011 GENOMICS CARDIO RESEARCH OTHER*[id number] 200806/25/2016 Overview: Renamed Per Clinical Trials Billing Project. Study Titile: Genomic Markers for Patients with Cardiovascular Disease Project #[id number] PI: Francoise Tomlin MD Please call [phone] with study related questions CLASS I-II ANGINA [...] as of this encounter (statuses as of 11/17/2018) Immunizations Name Administration Dates Next Due Pneumococcal [...] Comments:quit 30 yrs ago, wh ile in [employer] for 4 years Alcohol Use Drinks/Week oz/Week Comments Yes a beer per nigh t Sex Assigned at Date Recorded Not on file Job Start Date Occupation Industry Not on file Not on file Not on file Travel History Travel Start Travel End documented as of this encounter Miscellaneous Notes * Telephone Encounter - Kalli Rojas MD - 11/17/2018 3:41 PM EDT Signed Prescriptions: Disp Refills nitroglycerin (NITROSTAT) 0.4 MG SUBL 25 Tab 1 Sig: DISSOLVE 1 TABLET UNDER THE TONGUE EVERY 5 MINUTES FOR CHEST PAIN. UP TO 3 DOSES IN 15 MINUTES. Authorizing Provider: KALLI ROJAS * Telephone Encounter - Isadora Hanna OSA - 11/17/2018 2:42 PM EDT Pending Prescriptions: Disp Refills nitroglycerin (NITROSTAT) 0.4 MG SUBL 25 Tab 1 Sig: DISSOLVE 1 TABLET UNDER THE TONGUE EVERY 5 MINUTES FOR CHEST PAIN. UP TO 3 DOSES IN 15 MINUTES. Last Office Visit: 03/20/2018 Next Office Visit: 12/17/2018 Scheduled Provider(s): Kalli Rojas MD If no future appointments scheduled, and last appointment is greater than a year ago, please schedule patient for a follow-up appointment Last date the medication was ordered: 05-01-17 Patient Phone Numbers Labs: Lab Results Component [...] Team Description 12/17/2018 Office Visit Family Medicine Kalli Rojas MD [address] [place] [address] [phone] 01/28/2019 Office Visit Cardiology Azael Lozano MD [address] [address] [phone] Health Maintenance Due Date Last Done Comments *DEPRESSION SCREENING, ANNUAL FOR PTS 18 AND OVER 2014 Yearly B-12 05/01/2018 05/01/2017 CKD GFR USE SMARTSET 74564 09/17/201803/20, 04/07/2017, 10/24/2016, Additional history exists DIABETES-HGBA1C EVERY 6 MONTHS 09/17/2018 03/20/2018, 05/01/2017, 10/24/2016, Additional history exists Influenza Vaccine (FLU shot) (#1) 2018 03/01/2018, 03/02/2017, 02/16/2013, Additional history exists CKD HGB USE SMARTSET 72313 03/20/201903/20, 04/07/2017, 01/01/2017, Additional history exists CKD PHOS USE SMARTSET 99959 03/20/2019 03/20/2018 DIABETES-FOOT EXAM 03/20/2019 03/20/2018, 0 [...] Coronary atherosclerosis of unspecified type of vessel, [place] or graft documented in this encounter Advance Directives Documents on File Type Date Recorded Patient Marine Cargo Specialist Expl anation Advanced Directive 11/15/2008 12:00 [...] the patient have Health Care Power of Senior Instructional Designer? Yes, not currently available Full Code 09/15/2009 [...]
--- OUTSIDE RECORDS SUMMARY | 2023-02-21 02:51 | External Medical Summary | Summary of Care ---
Author Name Unknown Organization [place] [address] Care Team Providers Care Offc Spec Name Role Phone Sylvia Rojas MD Primary Care Provider [phone] Reason for Visit * Reason Comments Advice Encounter Details Date Type Department Care Team Description 01/05/2019 Telephone Cardiology, [facility] [address] [place] [address] Azael Lozano MD [address] [place] [address] Advice Allergies No Known Allergiesdocumented as of [...] Tab 1 01/26/2018 Active RANEXA 1000 MG [id number]:Chest pain,Unstable angina (HCC) TAKE 1 TABLET TWICE [...] metoprolol succinate XL (TOPROL XL) 25 MG HO55Mbuoqztrrvm:Chroni c coronary artery disease,Aortocoronary bypass status,HTN, goal [...] cm 4.29.2009 echo at [facility]. Dyslipidemia, goal LDL below 70 [...] # PI: Francoise Tomlin MD Please call [phone] with study related questions INTERFACED RESULT 11/17/2008 10/17/2011 GENOMICS CARDIO RESEARCH OTHER*[id number] 200806/25/2016 Overview: Renamed Per Clinical Trials Billing Project. Study Titile: Genomic Markers for Patients with Cardiovascular Disease Project # PI: Francoise Tomlin MD Please call [phone] with study related questions CLASS I-II ANGINA [...] Comments:quit 30 yrs ago, wh ile in [employer] for 4 years Alcohol Use Drinks/Week oz/Week Comments Yes a beer per nigh t Sex Assigned at Date Recorded Not on file Job Start Date Occupation Industry Not on file Not on file Not on file Travel History Travel Start Travel End documented as of this encounter Miscellaneous Notes * Telephone Encounter - Dayana Gracia RN [...] please order * Telephone Encounter - Kim Rnadall OSA - 01/05/2019 1:09 PM EDT Pt [...] Azael Lozano MD [address] [place] [address] [phone] Health Maintenance Due Date Last Done Comments *DEPRESSION SCREENING,ANNUAL FOR PTS 12 AND OVER 2014 Yearly B-12 05/01/2018 05/01/2017 CKD GFR USE SMARTSET 32182 09/17/201803/20, 04/07/2017, 10/24/2016, Additional history exists DIABETES-HGBA1C EVERY 6 MONTHS 09/17/2018 03/20/2018, 05/01/2017, 10/24/2016, Additional history exists Influenza Vaccine (FLU shot) (#1) 2019 03/01/2018, 03/02/2017, 02/16/2013, Additional history exists CKD HGB USE SMARTSET 59562 03/20/201903/20, 04/07/2017, 01/01/2017, Additional history exists CKD PHOS USE SMARTSET 19616 03/20/2019 03/20/2018 DIABETES-FOOT EXAM 03/20/2019 03/20/2018, 0 [...] Documents on File Type Date Recorded Patient Mail Order Biller Expl anation Advanced Directive 11/15/2008 12:00 AM [...] the patient have Health Care Power of Monkey Breeder? Yes, not currently available Full Code 09/15/2009 [...]
--- OUTSIDE RECORDS SUMMARY | 2023-02-21 02:51 | External Medical Summary ---
Author Name Unknown Address [facility] [address] [place] [id number] Phone Organization K01:[place] [address] [place] [id number] Laboratory Report Ordering Provider Test Date Status ARI MAHAN 01/12/2019 14:01:00 Final Observation Date Value Abnormality Reference Status HbA1C 01/12/2019 21:50 6.5 Above high normal 4.0-5 .6 Final Performing Location [place] [address] [address] [facility] [address]
--- OUTSIDE RECORDS SUMMARY | 2023-02-21 02:51 | External Medical Summary | Summary of Care ---
Author Name Unknown Organization [place] [address] Care Team Providers Care Aircraft Refueller Name Role Phone Sylvia Rojas MD Primary Care Provider [phone] Reason for Visit * Reason Comments Advice Encounter Details Date Type Department Care Team Description 01/05/2019 Telephone Cardiology, [facility] [address] [place] [address] Azael Lozano MD [address] [facility] [place] [address] Advice Allergies No Known Allergiesdocumented as of this encounter (statuses as of 01/06/2019) Medications Medication Sig Dispensed Refills Start Date [...] Tab 1 01/26/2018 Active RANEXA 1000 MG PV96Jthywyhykuh:Chest pain,Unstable angina (HCC) TAKE 1 TABLET TWICE [...] metoprolol succinate XL (TOPROL XL) 25 MG SN98Thqvwlclshi:Chroni c coronary artery disease,Aortocoronary bypass status,HTN, goal [...] as of this encounter (statuses as of 01/06/2019) Active Problems Problem Noted Date Hypertensive kidney disease with chronic kidney disease stage III 12/10/2018 History of colon polyps 09/08/2018 Diabetes mellitus with stage 3 chronic k idney disease 08/26/2017 Overview: Per CKD protocol #1 HTN, goal below 140/90 07/24/2015 Overview: Per HTN Protocol #27. Enlarged aorta 09/15/2009 Overview: Aortic root 4.4 cm 4.29.2009 echo at [facility]. Dyslipidemia, goal LDL below 70 [...] as of this encounter (statuses as of 01/06/2019) Resolved Problems Problem Noted Date Resolved Date [...] # PI: Francoise Tomlin MD Please call [phone] with study related questions INTERFACED RESULT 11/17/2008 10/17/2011 GENOMICS CARDIO RESEARCH OTHER*[id number] 200806/25/2016 Overview: Renamed Per Clinical Trials Billing Project. Study Titile: Genomic Markers for Patients with Cardiovascular Disease Project # PI: Francoise Tomlin MD Please call [phone] with study related questions CLASS I-II ANGINA [...] as of this encounter (statuses as of 01/06/2019) Immunizations Name Administration Dates Next Due Pneumococcal [...] Comments:quit 30 yrs ago, wh ile in [employer] for 4 years Alcohol Use Drinks/Week oz/Week Comments Yes a beer per nigh t Sex Assigned at Date Recorded Not on file Job Start Date Occupation Industry Not on file Not on file Not on file Travel History Travel Start Travel End documented as of this encounter Miscellaneous Notes * Telephone Encounter - Azael Lozano MD [...] Office Visit Cardiology Azael Lozano MD [address] [facility] [place] [address] [phone] Health Maintenance Due Date Last Done Comments *DEPRESSION SCREENING,ANNUAL FOR PTS 12 AND OVER 2014 Yearly B-12 05/01/2018 05/01/2017 CKD GFR USE SMARTSET 10460 09/17/201803/20, 04/07/2017, 10/24/2016, Additional history exists DIABETES-HGBA1C EVERY 6 MONTHS 09/17/2018 03/20/2018, 05/01/2017, 10/24/2016, Additional history exists Influenza Vaccine (FLU shot) (#1) 2019 03/01/2018, 03/02/2017, 02/16/2013, Additional history exists CKD HGB USE SMARTSET 37256 03/20/201903/20, 04/07/2017, 01/01/2017, Additional history exists CKD PHOS USE SMARTSET 66658 03/20/2019 03/20/2018 DIABETES-FOOT EXAM 03/20/2019 03/20/2018, 0 [...] on File Type Date Recorded Patient Field Hauler Expl anation Advanced Directive 11/15/2008 12:00 AM [...] patient have Health Care Power of Oil Field Tester? Yes, not currently available Full Code [...]
--- OUTSIDE RECORDS SUMMARY | 2023-02-21 02:51 | External Medical Summary | Summary of Care ---
Author Name Unknown Organization [place] [address] Care Team Providers Care Oracle Fusion Developer Name Role Phone Kalli Rojas MD Primary Care Provider [phone] Reason for Visit * Reason Comments Medication Refill Encounter Details Date Type Department Care Team Description 01/15/2019 Refill Family Practice [facility] [address] [facility] [place] [id number] Kalli Rojas MD [address] [facility] [place] [address] [phone] Aortocoronary bypass status; Acute coronary syndrome (HCC); Chronic coronary artery disease; Enlarged aorta (HCC) Allergies No Known Allergiesdocumented as of this encounter (statuses as of 01/16/2019) Medications Medication Sig Dispensed Refills Start Date [...] Tab 1 01/26/2018 Active RANEXA 1000 MG ME14Zcpkbdpdzfq:Ch est pain,Unstable angina (HCC) TAKE 1 TABLET TWICE A DAY 180 Tab 3 06/16/2018 Active rosuvastatin (CRESTOR) 20 MG TabletIndications: Dyslipidemia, goal LDL below 70,Dyslipidemia, goal LDL below 160,Mixed dyslipidemia TAKE 1 TABLET DAILY AT 5 P.M. IN THE AFTERNOON 90 Tab 1 09/04/2018 Active metoprolol succinate XL (TOPROL XL) 25 MG CC35Bvypibhkqnb:Ch ronic coronary artery disease,Aortocoron jovanna bypass status,HTN, [...] mouth daily. 100 Tab 1 01/15/2019 Active clopidogrel (PLAVIX) 75 MG TabletIndications: Aortocoronary bypass status,Acute coronary syndrome (HCC),Chronic coronary artery disease,Enlarged aorta (HCC) Take 1 Tab by mouth daily. 100 Tab 1 07/17/2018 01/15/2019 Discontinued documented as of this encounter (statuses as of 01/16/2019) Active Problems Problem Noted Date Hypertensive kidney disease with chronic kidney disease stage III 12/10/2018 History of colon polyps 09/08/2018 Diabetes mellitus with stage 3 chronic k idney disease 08/26/2017 Overview: Per CKD protocol #1 HTN, goal below 140/90 07/24/2015 Overview: Per HTN Protocol #27. Enlarged aorta 09/15/2009 Overview: Aortic root 4.4 cm 4.29.2009 echo at [facility]. Dyslipidemia, goal LDL below 70 [...] as of this encounter (statuses as of 01/16/2019) Resolved Problems Problem Noted Date Resolved Date [...] Markers for Patients with Cardiovascular Disease Project #[id number] PI: Francoise Tomlin MD Please call [phone] with study related questions INTERFACED RESULT 11/17/2008 10/17/2011 GENOMICS CARDIO RESEARCH OTHER*[id number] 200806/25/2016 Overview: Renamed Per Clinical Trials Billing Project. Study Titile: Genomic Markers for Patients with Cardiovascular Disease Project #[id number] PI: Francoise Tomlin MD Please call [phone] with study related questions CLASS I-II ANGINA [...] as of this encounter (statuses as of 01/16/2019) Immunizations Name Administration Dates Next Due Pneumococcal [...] Comments:quit 30 yrs ago, wh ile in [email or web address] for 4 years Alcohol Use Drinks/Week oz/Week Comments Yes a beer per nigh t Sex Assigned at Date Recorded Not on file Job Start Date Occupation Industry Not on file Not on file Not on file Travel History Travel Start Travel End documented as of this encounter Miscellaneous Notes * Telephone Encounter - Kalli Rojas MD - 01/15/2019 5:02 PM EDT Signed Prescriptions: Disp Refills clopidogrel (PLAVIX) 75 MG Tablet 100 Tab1 Sig: Take 1 Tab by mouth daily. Authorizing Provider: KALLI ROJAS * Telephone Encounter - Isadora Hanna OSA - 01/15/2019 4:12 PM EDT Pending Prescriptions: Disp Refills clopidogrel (PLAVIX) 75 MG Tablet 100 Tab1 Sig: Take 1 Tab by mouth daily. Last Office Visit: 03/20/2018 Next Office Visit: No Future Appointments If no future appointments scheduled, and last appointment is greater than a year ago, please schedule patient for a follow-up appointment Last date the medication was ordered: 07-17-2018 Pharmacy: [facility] [id number] [place] Is this request for a [...] AM HGBA1C 6.5 (H) 01/12/2019 02:01 PM 22 documented in this encounter Plan of Treatment Upcoming Encounters Date Type Specialty Care Team Description 01/22/2019 Cardiac Studies Cardiac Studies , Cuff Setter 2 [address] [facility] [place] [address] [phone] 01/22/2019 Imaging Radiology 01/28/2019 Office Visit Cardiology Azael Lozano MD [address] [place] [address] [phone] Health Maintenance Due Date Last Done Comments *DEPRESSION SCREENING,ANNUAL FOR PTS 12 AND OVER 2014 Yearly B-12 05/01/2018 05/01/2017 CKD GFR USE SMARTSET 34770 09/17/201803/20, 04/07/2017, 10/24/2016, Additional history exists Influenza Vaccine (FLU shot) (#1) 2019 03/01/2018, 03/02/2017, 02/16/2013, Additional history exists CKD HGB USE SMARTSET 62481 03/20/201903/20, 04/07/2017, 01/01/2017, Additional history exists CKD PHOS USE SMARTSET 46697 03/20/2019 03/20/2018 DIABETES-FOOT EXAM 03/20/2019 03/20/2018, 0 [...] Coronary atherosclerosis of unspecified type of vessel, [place] or graft Enlarged aorta (HCC) Other specified disorders of arteries and arterioles documented in this encounter Advance Directives Documents on File Type Date Recorded Patient Practice Billing Associate Expl anation Advanced Directive 11/15/2008 12:00 [...] the patient have Health Care Power of Burnt Lime Drawer? Yes, not currently available Full Code 09/15/2009 [...]
--- OUTSIDE RECORDS SUMMARY | 2023-02-21 02:51 | External Medical Summary | Summary of Care ---
Author Name Unknown Organization [facility] [address] Care Team Providers Care Personnel Associate Name Role Phone Sylvia Rojas MD Primary Care Provider [phone] Reason for Visit * Reason Comments Advice Encounter Details Date Type Department Care Team Description 01/05/2019 Telephone Cardiology, [facility] [address] [place] [address] Azael Lozano MD 132 [place] [address] Advice Allergies No Known Allergiesdocumented as of this encounter (statuses as of 01/05/2019) Medications Medication Sig Dispensed Refills Start Date [...] Tab 1 01/26/2018 Active RANEXA 1000 MG [id number]:Chest pain,Unstable angina (HCC) TAKE 1 TABLET TWICE [...] metoprolol succinate XL (TOPROL XL) 25 MG [id number]:Chroni c coronary artery disease,Aortocoronary bypass status,HTN, goal [...] as of this encounter (statuses as of 01/05/2019) Active Problems Problem Noted Date Hypertensive kidney disease with chronic kidney disease stage III 12/10/2018 History of colon polyps 09/08/2018 Diabetes mellitus with stage 3 chronic k idney disease 08/26/2017 Overview: Per CKD protocol #1 HTN, goal below 140/90 07/24/2015 Overview: Per HTN Protocol #27. Enlarged aorta 09/15/2009 Overview: Aortic root 4.4 cm 4.29.2009 echo at [facility]. Dyslipidemia, goal LDL below 70 05/01/20 [...] as of this encounter (statuses as of 01/05/2019) Resolved Problems Problem Noted Date Resolved Date [...] # PI: Francoise Tomlin MD Please call [phone] with study related questions INTERFACED RESULT 11/17/2008 10/17/2011 GENOMICS CARDIO RESEARCH OTHER*[id number] 200806/25/2016 Overview: Renamed Per Clinical Trials Billing Project. Study Titile: Genomic Markers for Patients with Cardiovascular Disease Project # PI: Francoise Tomlin MD Please call [phone] with study related questions CLASS I-II ANGINA [...] as of this encounter (statuses as of 01/05/2019) Immunizations Name Administration Dates Next Due Pneumococcal [...] Comments:quit 30 yrs ago, wh ile in [employer] for 4 years Alcohol Use Drinks/Week oz/Week Comments Yes a beer per nigh t Sex Assigned at Date Recorded Not on file Job Start Date Occupation Industry Not on file Not on file Not on file Travel History Travel Start Travel End documented as of this encounter Miscellaneous Notes * Telephone Encounter - Kim Randall OSA [...] B-12 05/01/2018 05/01/2017 CKD GFR USE SMARTSET 29588 09/17/201803/20, 04/07/2017, 10/24/2016, Additional history exists DIABETES-HGBA1C EVERY 6 MONTHS 09/17/2018 03/20/2018, 05/01/2017, 10/24/2016, Additional history exists Influenza Vaccine (FLU shot) (#1) 2019 03/01/2018, 03/02/2017, 02/16/2013, Additional history exists CKD HGB USE SMARTSET 98248 03/20/201903/20, 04/07/2017, 01/01/2017, Additional history exists CKD PHOS USE SMARTSET 55409 03/20/2019 03/20/2018 DIABETES-FOOT EXAM 03/20/2019 03/20/2018, 0 [...] Documents on File Type Date Recorded Patient Care Nurse Rn Expl anation Advanced Directive 11/15/2008 12:00 [...] the patient have Health Care Power of Light Industrial? Yes, not currently available Full Code 09/15/2009 [...]
--- OUTSIDE RECORDS SUMMARY | 2023-02-21 02:51 | External Medical Summary | Summary of Care ---
Author Name Unknown Organization [place] [address] Care Team Providers Care Multifold Operator Name Role Phone Kalli Rojas MD Primary Care Provider [phone] Reason for Visit * Reason Comments Follow Up Encounter Details Date Type Department Care Team Description 01/28/2019 Office Visit Cardiology, [facility] [place] [address] [facility] [place] [address] Azael Lozano MD [address] [place] [address] [phone] Coronary artery disease involving [place] coronary artery of [place] heart with angina pectoris (HCC)*; Nonrheumatic aortic valve stenosis; Aortocoronary bypass status Allergies No Known Allergiesdocumented as of this [...] Tab 5 01/20/2018 Active RANEXA 1000 MG [id number]:Chest pain,Unstable angina (HCC) TAKE 1 TABLET TWICE A DAY 180 Tab 3 06/16/2018 Active rosuvastatin (CRESTOR) 20 MG TabletIndications:Dysl ipidemia, goal LDL below 70,Dyslipidemia, goal LDL below 160,Mixed dyslipidemia TAKE 1 TABLET DAILY AT 5 P.M. IN THE AFTERNOON 90 Tab 1 09/04/2018 Active metoprolol succinate XL (TOPROL XL) 25 MG [id number]:Chroni c coronary artery disease,Aortocoronary bypass status,HTN, goal [...] Aortic root 4.4 cm 4.29.2009 echo at [facility]. Dyslipidemia, goal LDL below 70 05/01/20 [...] Markers for Patients with Cardiovascular Disease Project #[id number] PI: Francoise Tomlin MD Please call [phone] with study related questions INTERFACED RESULT 11/17/2008 10/17/2011 GENOMICS CARDIO RESEARCH OTHER*[id number] 200806/25/2016 Overview: Renamed Per Clinical Trials Billing Project. Study Titile: Genomic Markers for Patients with Cardiovascular Disease Project #[id number] PI: Francoise Tomlin MD Please call [phone] with study related questions CLASS I-II ANGINA [...] Comments:quit 30 yrs ago, wh ile in [employer] for 4 years Alcohol Use Drinks/Week oz/Week Comments Yes a beer per nigh t Sex Assigned at Date Recorded Not on file Job Start Date Occupation Industry Not on file Not on file Not on file Travel History Travel Start Travel End documented as of this encounter Last Filed Vital Signs Vital Sign Reading Time Taken Comments Blood Pressure 118/58 01/28/2019 10:24 AM EDT Pulse 64 01/28/2019 10:24 AM EDT Temperature - - Respiratory Rate 16 01/28/2019 10:24 AM EDT Oxygen Saturation - - Inhaled Oxygen Concentration - - Weight 71.5 kg (157 lb 9.6 oz) 01/28/2019 10:24 AM EDT Height - - Body Mass Index 21.98 03/20/2018 7:46 AM EDT documented in this encounter Progress Notes * Azael Lozano MD - 01/28/2019 10:31 AM EDT 06/17/2018 Cardiology Follow Up Referring Provider: [place]: [place] [address] Chief Complaint: Routine followup coronary artery disease SUBJECTIVE: Dirk Garcia is a 83 year old year old male with cardiac [...] aortic valve stenosis 8. Right bundle-branch block Patient presents today in routine followup. Has been doing well with low level activities to preference. Uses an occasional sublingual nitroglycerin for anginal symptoms with prompt relief. Notes no syncope or near syncope. Notes no tachypalpitations, orthopnea, peripheral edema. Appetite and weight have been stable. No bleeding difficulties. No unexplained fevers or infections A Complete Review of 10 Systems is as stated above or negative. 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 In the morning. 90 Tab 1 clopidogrel (PLAVIX) 75 MG Tablet Take 1 Tab by mouth daily. 100 Tab 1 Losartan Potassium-HCTZ 100-12.5 MG per tablet Take 1 Tab by mouth daily. 90 Tab 3 JANUVIA 100 MG Tablet TAKE 1 TABLET DAILY 90 Tab 0 glimepiride (AMARYL) 4 MG Tablet TAKE 2 [...] DOSES IN 15 MINUTES. 25 Tab 1 amLODIPine (NORVASC) 5 MG Tablet Take 1 Tab by mouth daily. 90 Tab 1 metoprolol succinate XL (TOPROL XL) 25 MG TB24 TAKE 2 TABLETS BY MOUTH EVERY DAY 180 Tab 1 rosuvastatin (CRESTOR) 20 MG Tablet TAKE 1 TABLET DAILY AT 5 P.M. IN THE AFTERNOON 90 Tab 1 RANEXA 1000 MG TB12 TAKE [...] test daily 1 box 11 OBJECTIVE/PHYSICAL EXAMINATION: BP 118/58 | Pulse 64 | Resp 16 | Wt 157 lbs 9.6 oz (71.487kg) | BMI 21.98 kg/m | BSA 1.89 m General: no acute distress and stated age [...] left Neuro: grossly normal exam Data: EKG January 28, 2019 Sinus bradycardia at 57 beats per minute with right bundle branch block. Echocardiogram January 22, 2019: The LV wall [...] of December 2014 and July 2016 ASSESSMENT: 83 year old year old male History of remote coronary bypass grafting, November 2008 with chronic class 2 3 angina pectoris, stable. Echocardiogram demonstrates newly noted mild aortic stenosis. Stress nuclear imaging consistent with known coronary anatomy and chronic right coronary occlusion with mild stress-induced ischemia. Patient did experience typical angina with Lexiscan stress exertion relieved on rest PLAN: Patient is on appropriate medical therapy with stable cardiac history. 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 Information will be forwarded to testing physician DISPOSITION: Follow-up 6 months with patient report symptoms or complaints in the interim Azael Lozano MD [facility] Cardiology, [address] [place] [address] Copy to be forwarded to [employer] [address] [place] [address] documented in this encounter Nursing Notes * Niya Pineda RN - 01/28/2019 10:23 AM EDT Examination Room: 14 Name: Dirk Garcia Date of : (1935). Reason for Visit: follow up Interim Hospitalization(s): no Problems/Concerns: Pt denies any complaints. Chest Pain/SOB: denies My [facility] is a way you can talk to your provider online through e-mail. Would you like to sign up? I can activate it for you? DECLINES documented in this encounter Plan of Treatment Upcoming Encounters Date Type Specialty Care Team Description 09/17/2019 Office Visit Cardiology Azael Lozano MD 132 [facility] [place] [address] [phone] Health Maintenance Due Date Last Done Comments *DEPRESSION SCREENING,ANNUAL FOR PTS 12 AND OVER 2014 Yearly B-12 05/01/2018 05/01/2017 CKD GFR USE SMARTSET 92587 09/17/201803/20, 04/07/2017, 10/24/2016, Additional history exists Influenza Vaccine (FLU shot) (#1) 2019 03/01/2018, 03/02/2017, 02/16/2013, Additional history exists CKD HGB USE SMARTSET 24234 03/20/201903/20, 04/07/2017, 01/01/2017, Additional history exists CKD PHOS USE SMARTSET 40030 03/20/2019 03/20/2018 DIABETES-FOOT EXAM 03/20/2019 03/20/2018, 0 [...] as of this encounter Visit Diagnoses Diagnosis Coronary artery disease involving [place] coronary artery of [place] heart with angina pectoris (HCC)- Primary Nonrheumatic aortic valve stenosis Aortic valve disorders Aortocoronary bypass status Postsurgical aortocoronary bypass status documented in this encounter Advance Directives Documents on File Type Date Recorded Patient Metal Dresser Expl anation Advanced Directive 11/15/2008 12:00 [...] the patient have Health Care Power of Mechanic Chief? Yes, not currently available Full Code 09/15/2009 [...]
--- OUTSIDE RECORDS SUMMARY | 2023-02-21 02:51 | External Medical Summary | Summary of Care ---
Author Name Unknown Organization [place] [address] Care Team Providers Care Firer Locomotive Crane Name Role Phone Sylvia Rojas MD Primary Care Provider [phone] Reason for Referral * Precert (Routine) Status Reason Specialty Diagnoses / Procedures Referred By Contact Referred To Contact Pending Review Precert Radiology Diagnoses Chronic coronary artery disease S/P angioplasty with stent Acute coronary syndrome (HCC) Procedures NM MYOCARDIAL PERFUSION IMAGING SPECT MULTIPLE STUDIES WITH PHARMACOLOGIC INTERVENTION Azael Lozano MD [address] [place] [address] * Precert (Routine) Status Reason Specialty Diagnoses / Procedures Referred By Contact Referred To Contact Pending Review Precert Cardiac Studies Diagnoses Chronic coronary artery disease S/P angioplasty with stent Acute coronary syndrome (HCC) Procedures ECHO, COMPLETE (2D), TRANS-THORACIC Azael Lozano MD [address] [place] [address] Reason for Visit * Reason Comments Advice Encounter Details Date Type Department Care Team Description 01/05/2019 Telephone Cardiology, [facility] [address] [place] [address] Azael Lozano MD [address] [place] [address] [phone] Advice Allergies No Known Allergiesdocumented as of [...] Tab 1 01/26/2018 Active RANEXA 1000 MG [id number]:Chest pain,Unstable angina (HCC) TAKE 1 TABLET TWICE [...] metoprolol succinate XL (TOPROL XL) 25 MG IM62Hcqkiqctoqe:Chroni c coronary artery disease,Aortocoronary bypass status,HTN, goal [...] 4.29.2009 echo at [facility]. Dyslipidemia, goal LDL below 70 [...] Markers for Patients with Cardiovascular Disease Project #[id number] PI: Francoise Tomlin MD Please call [phone] with study related questions INTERFACED RESULT 11/17/2008 10/17/2011 GENOMICS CARDIO RESEARCH OTHER*[id number] 200806/25/2016 Overview: Renamed Per Clinical Trials Billing Project. Study Titile: Genomic Markers for Patients with Cardiovascular Disease Project #[id number] PI: rFancoise Tomlin MD Please call [phone] with study related questions CLASS I-II ANGINA [...] encounter Miscellaneous Notes * Telephone Encounter - Elise Ordoñez OSA - 01/07/2019 4:10 PM EDT Spoke with pt's . Pt is scheduled for both echo and nuc 01/22/19 @ 1230. Pt's given instructions and will give all information to pt. * Addendum Note - Dayana Gracia RN [...] Description 01/22/2019 Cardiac Studies Cardiac Studies [facility], [facility] [address] [place] [address] [phone] 01/22/2019 Imaging Radiology 01/28/2019 Office Visit Cardiology Azael Lozano MD [address] [place] [address] [phone] Scheduled Orders Name Type Priority Associated Diagnoses [...] B-12 05/01/2018 05/01/2017 CKD GFR USE SMARTSET 44126 09/17/201803/20, 04/07/2017, 10/24/2016, Additional history exists DIABETES-HGBA1C EVERY 6 MONTHS 09/17/2018 03/20/2018, 05/01/2017, 10/24/2016, Additional history exists Influenza Vaccine (FLU shot) (#1) 2019 03/01/2018, 03/02/2017, 02/16/2013, Additional history exists CKD HGB USE SMARTSET 12720 03/20/201903/20, 04/07/2017, 01/01/2017, Additional history exists CKD PHOS USE SMARTSET 98915 03/20/2019 03/20/2018 DIABETES-FOOT EXAM 03/20/2019 03/20/2018, 0 [...] Coronary atherosclerosis of unspecified type of vessel, koi or graft S/P angioplasty with stent Postsurgical percutaneous transluminal coronary angioplasty status Acute coronary syndrome (HCC) Intermediate coronary syndrome documented in this encounter Advance Directives Documents on File Type Date Recorded Patient Decker Operator Expl anation Advanced Directive 11/15/2008 12:00 [...] the patient have Health Care Power of Wine And Spirits Clerk? Yes, not currently available Full Code [...]
--- OUTSIDE RECORDS SUMMARY | 2023-02-21 02:51 | External Medical Summary | Summary of Care ---
Author Name Unknown Organization [place] [address] Care Team Providers Care Oracle Soa Architect Name Role Phone Kalli Rojas MD Primary Care Provider [phone] Reason for Visit * Reason Comments eRx-Medication Refill Encounter Details Date Type Department Care Team Description 01/04/2019 Refill Family Practice [facility] [address] [place] [address] Kalli Rojas MD [address] [place] [address] [phone] Diabetes mellitus with stage 3 chronic kidney [...] Tab 1 01/26/2018 Active RANEXA 1000 MG KY03Phehzcoiyzu:Ch est pain,Unstable angina (HCC) TAKE 1 TABLET [...] metoprolol succinate XL (TOPROL XL) 25 MG ER79Rgqyqzrkvpr:Ch ronic coronary artery disease,Aortocoron jovanna bypass status,HTN, [...] TABLET DAILY 90 Tab 0 01/05/2019 Active JANUVIA 100 MG TabletIndications: 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) TAKE 1 TABLET DAILY 90 Tab 3 01/06/2018 01/04/2019 Discontinued documented as of this encounter (statuses [...] Markers for Patients with Cardiovascular Disease Project #[id number] PI: Francoise Tomlin MD Please call [phone] with study related questions INTERFACED RESULT 11/17/2008 10/17/2011 GENOMICS CARDIO RESEARCH OTHER*[id number] 200806/25/2016 Overview: Renamed Per Clinical Trials Billing Project. Study Titile: Genomic Markers for Patients with Cardiovascular Disease Project #[id number] PI: Francoise Tomlin MD Please call [phone] with study related questions CLASS I-II ANGINA [...] Comments:quit 30 yrs ago, wh ile in [employer] for 4 years Alcohol Use Drinks/Week oz/Week Comments Yes a beer per nigh t Sex Assigned at Date Recorded Not on file Job Start Date Occupation Industry Not on file Not on file Not on file Travel History Travel Start Travel End documented as of this encounter Miscellaneous Notes * Telephone Encounter - Cain Matute, [facility] - 01/05/2019 10:26 AM EDT Signed Prescriptions: Disp Refills JANUVIA 100 MG Tablet 90 Tab 0 Sig: TAKE 1 TABLET DAILYAuthorizing Provider: KALLI ROJAS User: CAIN MATUTE * Telephone Encounter - Cain Matute RP - 01/05/2019 10:24 AM EDT Pending Prescriptions: Disp Refills JANUVIA 100 MG Tablet [Pharmacy Med Name:*90 Tab 4 Sig: TAKE 1 TABLET DAILY Last Office Visit: 03/20/2018 Next Office Visit: No Future Appointments If no future appointments scheduled, and last appointment is greater than a year ago, please schedule patient for a follow-up appointment Last date the medication was ordered: 01/06/19 Patient Phone Numbers Labs: Lab Results Component [...] Azael Lozano MD [address] [place] [address] [phone] Health Maintenance Due Date Last Done Comments *DEPRESSION SCREENING,ANNUAL FOR PTS 12 AND OVER 2014 Yearly B-12 05/01/2018 05/01/2017 CKD GFR USE SMARTSET 06954 09/17/201803/20, 04/07/2017, 10/24/2016, Additional history exists DIABETES-HGBA1C EVERY 6 MONTHS 09/17/2018 03/20/2018, 05/01/2017, 10/24/2016, Additional history exists Influenza Vaccine (FLU shot) (#1) 2019 03/01/2018, 03/02/2017, 02/16/2013, Additional history exists CKD HGB USE SMARTSET 39803 03/20/201903/20, 04/07/2017, 01/01/2017, Additional history exists CKD PHOS USE SMARTSET 55415 03/20/2019 03/20/2018 DIABETES-FOOT EXAM 03/20/2019 03/20/2018, 0 [...] Documents on File Type Date Recorded Patient Application Packaging Specialist Expl anation Advanced Directive 11/15/2008 12:00 [...] the patient have Health Care Power of Chair And Couch Maker? Yes, not currently available Full Code [...]
--- OUTSIDE RECORDS SUMMARY | 2023-02-21 02:52 | External Medical Summary | Summary of Care ---
Author Name Unknown Organization [place] [address] Care Team Providers Care Composite Mechanic Name Role Phone Sylvia Rojas MD Primary Care Provider [phone] Reason for Visit * Reason Comments Skin Check Patient here today f or full body skin check -Hx Melanoma 09/02 back with MOHS sx; 08/02 trunk, 12/30 MOHS. Hx SK. Patient reports random moles to back and shoulders. * Evaluate & Treat - Unlimited Visits (Within 10 days (routine)) Status Reason Specialty Diagnoses / Procedures Referred By Contact Referred To Contact Pending Review Specialty Services Required Dermatology Diagnoses History of melanoma in situ Sylvia Rojas MD [address] [place] [address] Encounter Details Date Type Department Care Team Description 05/01/2018 Office Visit Dermatology [facility] [address] [place] [address] Christel Cavanaugh MD [address] [place], [place] [id number] Skin tumor* Allergies No Known Allergiesas of this encounter Medications Medication Sig Dispensed Refills Start Date End Date Status ONE TOUCH ULTRA DEVIIndications:DM type 2, not at goal (HCC) check daily 1 0 12/11/2005 Active ONE TOUCH ULTRA CONTROL SOLNIndications:DM type 2, not at goal ([facility]) check daily 1 11 12/11/2005 Active ONE TOUCH ULTRA TEST STRPIndications:DM type 2, not at goal ([facility]) test daily 1 box 11 12/11/2005 Active ONE TOUCH ULTRASOFT LANCETS MISCIndications:DM type 2, not at goal (HCC) test daily 1 box 11 12/11/2005 Active nitroglycerin (NITROSTAT) 0.4 MG SUBLIndications:Chroni c coronary artery disease DISSOLVE 1 TABLET UNDER THE TONGUE EVERY 5 MINUTES FOR CHEST PAIN. UP TO 3 DOSES IN 15 MINUTES. 25 Tab 1 05/01/2017 Active RANEXA 1000 MG [id number]:Chest pain,Unstable angina (HCC) TAKE 1 TABLET TWICE A DAY 180 Tab 3 06/17/2017 Active aspirin 81 MG chewable tablet Take 1 Tab by mouth daily. 34 Tab 11 10/28/2017 Active amLODIPine (NORVASC) 5 MG TabletIndications:HTN, goal below 130/80 Take 1 Tab by mouth daily. 90 Tab 1 11/04/2017 Active Losartan Potassium-HCTZ 100-12.5 MG per tabletIndications:HTN, goal below 140/90 TAKE 1 TABLET BY MOUTH EVERY DAY 90 Tab 3 12/25/2017 Active metFORMIN (GLUCOPHAGE) 850 MG TabletIndications:DM type 2, goal A1C to be determined ([facility]) Take 1 Tab by mouth 3 times a day. 90 Tab 5 12/30/2017 Active glimepiride (AMARYL) 4 MG Tablet TAKE 2 TABLETS BY MOUTH DAILY WITH THE FIRST MEAL OF THE DAY FOR DIABETES 180 Tab 1 01/02/2018 Active JANUVIA 100 MG TabletIndications:Diab etes mellitus with stage 3 chronic kidney disease (HCC) TAKE 1 TABLET DAILY 90 Tab 3 01/06/2018 Active rosuvastatin (CRESTOR) 20 MG TabletIndications:Dysl ipidemia, goal LDL below 70,Dyslipidemia, goal LDL below 160,Mixed dyslipidemia TAKE 1 TABLET DAILY AT 5 P.M. IN THE AFTERNOON 90 Tab 1 01/15/2018 Active isosorbide dinitrate (ISORDIL) 20 MG Tablet Take 1 Tab by mouth 3 times a day. at 8am, 12 noon and 4pm. 90 Tab 5 01/20/2018 Active clopidogrel (PLAVIX) 75 MG TabletIndications:Aort ocoronary bypass status,Acute coronary syndrome (HCC),Chronic coronary artery disease,Enlarged aorta (HCC) TAKE 1 TABLET BY MOUTH EVERY DAY 100 Tab 1 01/23/2018 Active Isosorbide Mononitrate ER 120 MG TB24 Take 1 Tab by mouth daily. In the morning. 90 Tab 1 01/26/2018 Active metoprolol succinate XL (TOPROL XL) 25 MG [id number]:Chroni c coronary artery disease,Aortocoronary bypass status,Dyslipidemia, goal LDL below 70 2 daily 180 Tab 1 04/24/2018 Active as of this encounter Active Problems Problem Noted Date Diabetes mellitus with stage 3 chronic k idney disease 08/26/2017 Overview: Per CKD protocol #1 HTN, goal below 140/90 07/24/2015 Overview: Per HTN Protocol #27. Enlarged aorta 09/15/2009 Overview: Aortic root 4.4 cm 4.29.2009 echo at [facility]. Dyslipidemia, goal LDL below 70 05/01/20 09 Overview: Per Lipid Taxonomy. 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 at prior visit BENIGN NEOPLASM LG BOWEL 01/17/2002 S/P angioplasty with stent Overview: drug eluting 09/15/09 Plavix x 12m DM type 2, goal A1C to be determined as of this encounter Resolved Problems Problem Noted Date Resolved Date [...] Markers for Patients with Cardiovascular Disease Project #[id number] PI: Francoise Tomlin MD Please call [phone] with study related questions INTERFACED RESULT 11/17/2008 10/17/2011 GENOMICS CARDIO RESEARCH OTHER*[id number] 200806/25/2016 Overview: Renamed Per Clinical Trials Billing Project. Study Titile: Genomic Markers for Patients with Cardiovascular Disease Project #[id number] PI: Francoise Tomlin MD Please call [phone] with study related questions CLASS I-II ANGINA PECTORIS, STABLE 04/26/2002 09/15/2009 Mixed dyslipidemia 04/26/2002 05/01/2009 Overview: Per Lipid Taxonomy. HTN, goal below 140/90 08/23/1998 0 Overview: Per HTN Taxonomy. DM type 2, not at goal 08/23/1998 9 Overview: Modified per Diabetes protocol #14. THREE VESSEL ATHEROSCLEROTIC CORONARY DISEASE 09/15/2009 Dyslipidemia, goal LDL below 160 07/13/2013 as of this encounter Immunizations Name Dates Previously Given Next Due Pneumococcal Conjugate Vacc, 13 Valent (Prevnar) 01/18/2016 Pneumococcal Polysaccharide PPV23 (Pneumovax) 11/20/2004 Seasonal Influenza, Quadriva lent, No Preserve, 6 Mons & Above, IM 03/01/2018 Seasonal Influenza, Quadriva lent, No Preserve, IM 03/02/2017 Seasonal Influenza, Trivalen t, with Preserve, 3yr & Above, Split 02/16/2013,03/09/2012,01/30/2011,,03/24/2008,05/21/2004 TDAP (age 10 and older)(Boostrix) 07/10/2012 as of this encounter Social History Tobacco Use Types Packs/Day Years Used Date Former Smoker Cigarettes 0.5 5 Quit: 05/19 Smokeless Tobacco: Never Used Comments:quit 30 yrs ago, wh ile in [place] [employer] [email or web address] for 4 years Alcohol Use Drinks/Week oz/Week Comments Yes a beer per nigh t Sex Assigned at Date Recorded Not on file Job Start Date Occupation Industry Not on file Not on file Not on file Travel History Travel Start Travel End as of this encounter Patient Instructions * Patient Instructions* Christel Cavanaugh MD - 05/01/2018 8:50 AM EST Skin Surgery Wound Care Instructions CHANGE DRESSING ONCE DAILY 1. Wash hands and remove the original dressing(s) in 12-24 hours. 2. Gently clean wound(s) with soap and water. Rinse with water and pat the wound dry. 3. Apply a thin layer of Vaseline ointment with a Q-tip. 4. Cover with a bandage if area(s) is not on the face or scalp. A dressing is not required on the face or scalp. Use non-adherent dressing and paper tape if you are sensitive to band-aid adhesive sensitive. WHAT TO EXPECT AFTER SURGERY: 1. Swelling and redness may occur around the wound for several days. If the procedure(s) was around the eye, skin around the eyes is often quite swollen and discolored for several days. 2. Shave biopsy sites will have a yellow center and thin red rim surrounding it. 3. Drainage is to be expected. The drainage may be yellow-green and have a slight odor. As long as the wound itself is healing, you do not have to be concerned about the drainage. 4. If bleeding occurs, apply FIRM CONSTANT PRESSURE to the dressing with fingertips and a dry, clean wash cloth for 20 - 30 minutes. No peeking to see if bleeding has stopped. 5. If you have any concerns about the healing wound, please call at: [place] office or [facility] office in this encounter Progress Notes * Christel Cavanaugh MD - 05/01/2018 8:00 AM EST CC: skin cancer screen Chief Complaint Patient presents with Skin Check Patient here today for full body skin check -Hx Melanoma 09/02 back with MOHS sx; 08/02 trunk, 12/30 MOHS. Hx SK. Patient reports random moles to back and shoulders. Referring: Sylvia Rojas MD HPI: 82 year old male presents for a skin screening. History of Skin Cancer: MMis left upper back 2017 History of precancer or atypical nevus: none Current lesions of concern: moles on back that he can't see. The patient has not noticed any other new or changing moles or lesions. ROS: Other skin concerns: none Constitutional symptoms: none Past Medical History: Diagnosis Date Aortocoronary bypass status 12/06/2008 Benign neoplasm of colon 01/18 Chronic coronary artery disease 11/17/2008 Coronary atherosclerosis of [place] coronary artery DM type 2, goal A1c below 7 DM type 2, goal A1C to be determined (HCC) Dyslipidemia, goal LDL below 160 Dyslipidemia, goal LDL below 70 05/01/2009 Per Lipid Taxonomy. Enlarged aorta (HCC) 09/15/2009 Aortic root 4.4 cm 4.29.2009 echo at [facility]. HTN, goal below 130/80 06/14/2009 Per HTN Taxonomy. HTN, goal below 140/90 S/P angioplasty with stent drug eluting 09/15/09 Plavix x 12m Current Outpatient Medications Medication Sig Dispense Refill metoprolol succinate XL (TOPROL XL) 25 MG TB24 2 daily 180 Tab 1 Isosorbide Mononitrate ER 120 MG TB24 Take 1 Tab by mouth daily. In the morning. 90 Tab 1 clopidogrel (PLAVIX) 75 MG Tablet TAKE 1 TABLET BY MOUTH EVERY DAY 100 Tab 1 isosorbide dinitrate (ISORDIL) 20 MG Tablet Take 1 Tab by mouth 3 times a day. at 8am, 12 noon and 4pm. 90 Tab 5 rosuvastatin (CRESTOR) 20 MG Tablet TAKE 1 TABLET DAILY AT 5 P.M. IN THE AFTERNOON 90 Tab 1 JANUVIA 100 MG Tablet TAKE 1 TABLET DAILY 90 Tab 3 glimepiride (AMARYL) 4 MG Tablet TAKE 2 TABLETS BY MOUTH DAILY WITH THE FIRST MEAL OF THE DAY FOR DIABETES 180 Tab 1 metFORMIN (GLUCOPHAGE) 850 MG Tablet Take 1 Tab by mouth 3 times a day. 90 Tab 5 Losartan Potassium-HCTZ 100-12.5 MG per tablet TAKE 1 TABLET BY MOUTH EVERY DAY 90 Tab 3 amLODIPine (NORVASC) 5 MG Tablet Take 1 Tab by mouth daily. 90 Tab 1 aspirin 81 MG chewable tablet Take 1 Tab by mouth daily. 34 Tab 11 RANEXA 1000 MG TB12 TAKE 1 TABLET TWICE A DAY 180 Tab 3 nitroglycerin (NITROSTAT) 0.4 MG SUBL DISSOLVE 1 TABLET UNDER THE TONGUE EVERY 5 MINUTES FOR CHEST PAIN. UP TO 3 DOSES IN 15 MINUTES. 25 Tab 1 ONE TOUCH ULTRA CONTROL SOLN check daily 1 11 ONE TOUCH ULTRA DICK check daily 1 0 ONE TOUCH ULTRA TEST STRP test daily 1 box 11 ONE TOUCH ULTRASOFT LANCETS MISC test daily 1 box 11 Review of patient's allergies indicates: No Known Allergies Social Hx: sunscreen use? In summer, but otherwise no exposure Exam: Well appearing patient in NAD. Ruddy Type 2 Full exam including the head and neck, face, conjuctivae, eyelids, lips, chest, abdomen, back, upper and lower extremities, hands, feet, palms and soles. Lesions noted: right chest x3 Translucent/inflamed papule/plaque with overlying telangiectasias anderosion. A. Right chest superior 10 mm, B right chest (inferior to specimen A) 7 mm, right preaxillary fold 6 mm Scattered benign appearing lesions over examined skin including scattered benign and relatively monomorphic appearing melanocytic nevi, waxy flesh-colored, greyish brown benign and non-inflamed appearing stuck-on papules and plaques, benign and uniform appearing brown macules and patches in sun exposed areas and solar elastosis and evident photodamage of sunexposed skin. No other lesions of concern on examined skin. Impression/Plan: 1. Neoplasm of uncertain behavior of skin x3 Procedure Note Shave Biopsy: Discussed the risks, benefits and alternatives of biopsy and verbal informed consent was obtained. Questions were answered. Risks including infection, bleeding, scar and expected care were outlined. Patient understands that further treatment may be recommended for malignant or concerning pathology. The lesion in question was identified with skin marking pen and photographed. The site was prepped with alcohol and anesthetized with <1 mL 1% lidocaine with epi. A dermablade was used to remove partial visible lesion for intended diagnostic test and pathologic interpretation. Specimen in formalin to dermatopathology. Aluminum chloride used for hemostatis, dressing applied and wound instructions given. We will correspond regarding results and further treatment recommendations as appropriate. A. Right chest superior 10 mm, B. right chest (inferior to specimen A) 7 mm, C. right preaxillary fold 6 mm 2. Actinic damage (sun damaged skin) - screening today without other concerning lesions for cancer.Suggested routine SPF 50+sun protection, vitamin D supplementation and yearly exam. Appropriate discussion of chronic actinic damage as it specifically related to this patient was undertaken and not limited to: -ABCDEs of melanoma and signs/symptoms of NMSC -Importance of frequent self skin checks -Importance of sun protection/avoidance -Skin cancer handout including information on differences between benign and malignant lesions -Patient encouraged to call clinic if they develop any new or changing moles or lesions to have these re-evaluated 3. History of melanoma in situ Return to Clinic:1 year in this encounter Nursing Notes * Alyce Lal RN - 05/01/2018 7:59 AM EST Chief Complaint Patient presents with Skin Check Patient here today for full body skin check -Hx Melanoma 09/02 back with MOHS sx; 08/02 trunk, 12/30 MOHS. Hx SK. Patient reports random moles to back and shoulders. Do you have any concerns about pain management for today's visit? No Living Will or Advance Directive for Health Care as noted on problem list. [facility] is a way you can talk to your provider on line through e-mail. Would you like to sign up? I can activate it for you? DECLINES in this encounter Plan of Treatment Upcoming Encounters Date Type Specialty Care Team Description 06/17/2018 Office Visit Cardiology Azael Lozano MD [address] [place] [place] [address] [phone] 09/17/2018 Office Visit Family Medicine Sylvia Rojas MD [address] [place] [address] [phone] Scheduled Tests Name Priority Associated Diagnoses Order S chedule SURGICAL PATHOLOGY Routine Skin tumor Ordered: 05/01/2018 Health Maintenance Due Date Last Done Comments *DEPRESSION SCREENING, EDMUNDO [place] FOR PTS 18 AND OVER 2014 Yearly B-12 05/01/2018 05/01/2017 CKD GFR USE SMARTSET 39215 09/17/201803/20, 04/07/2017, 10/24/2016, Additional history exists DIABETES-HGBA1C EVERY 6 MONTHS 09/17/2018 1 05/20/2017, 05/01/2017, 10/24/2016, Additional history exists CKD HGB USE SMARTSET 69841 03/20/201903/20, 04/07/2017, 01/01/2017, Additional history exists CKD PHOS USE SMARTSET 96353 03/20/2019 03/20/2018 DIABETES-FOOT EXAM 03/20/2019 03/20/2018, 0 10/24/2016, 01/18/2016, Additional history exists COLONOSCOPY-EVERY 5 YRS AGES 18-100 03/20/2021 03/20/2016, 04/30/2010, 02/05/2002 DTaP,Tdap,and Td Vaccines (2 - Td) 07/10/20222012 PNEUMOCOCCAL ADULT 65 YRS AND OVER Completed 2015, 11/20/2004 Influenza Vaccine (FLU shot) Completed , 03/02/2017, 02/16/2013, Additional history exists as of this encounter Implants Not on fileas of this encounter Visit Diagnoses Diagnosis Skin tumor- Primary Neoplasm of uncertain behavior of skin in this encounter Advance Directives Patient has advance care planning documents, and code status on file. For more information, please contact: [place] [phone] Latest Code Status on File Code Status Date Activated Date Inactivated Comments Full Code 11/22/2011 11:38 PM 11/25/2011 9:22 PM This o rder reflects the patients wishes and were consensually agreed upon. Discussion of Advance Directives occurred with: Patient/Family Does the patient have a Living Will? Yes, not cu rrently available Does the patient have Health Care Power of Product Promoter Sales Person? Yes, not currently available Full Code 09/15/2009 [...]
--- OUTSIDE RECORDS SUMMARY | 2023-02-21 02:52 | External Medical Summary | Summary of Care ---
Author Name Unknown Organization [place] [address] Care Team Providers Care Animal Attendants And Trainers Name Role Phone Kalli Rojas MD Primary Care Provider [phone] Reason for Visit * Reason Comments Medication Refill Encounter Details Date Type Department Care Team Description 07/03/2018 Refill Family Practice [facility] [address] [facility] [address] [address] Kalli Rojas MD [address] [place] [address] [phone] Allergies No Known Allergiesdocumented as of this encounter (statuses as of 07/03/2018) Medications Medication Sig Dispensed Refills Start Date [...] 11 12/11/2005 Active nitroglycerin (NITROSTAT) 0.4 MG SUBLIndications:Ch ronic [...] 3 01/06/2018 Active rosuvastatin (CRESTOR) 20 MG TabletIndications: Dyslipidemia, goal LDL below 70,Dyslipidemia, goal LDL below 160,Mixed dyslipidemia TAKE 1 TABLET DAILY AT 5 P.M. IN THE AFTERNOON 90 Tab 1 01/15/2018 Active isosorbide dinitrate (ISORDIL) 20 MG Tablet Take 1 Tab by mouth 3 times a day. at 8am, 12 noon and 4pm. 90 Tab 5 01/20/2018 Active clopidogrel (PLAVIX) 75 MG TabletIndications: Aortocoronary bypass status,Acute coronary syndrome (HCC),Chronic coronary artery disease,Enlarged aorta (HCC) TAKE 1 TABLET BY MOUTH EVERY DAY 100 Tab 1 01/23/2018 Active Isosorbide Mononitrate ER 120 MG TB24 Take 1 Tab by mouth daily. In the morning. 90 Tab 1 01/26/2018 Active metoprolol succinate XL (TOPROL XL) 25 MG [id number]:Ch ronic coronary artery disease,Aortocoron jovanna bypass status,Dyslipidemi a, goal LDL below 70 2 daily 180 Tab 1 04/24/2018 Active amLODIPine (NORVASC) 5 MG TabletIndications: HTN, goal below 130/80 Take 1 Tab by mouth daily. 90 Tab 1 05/12/2018 Active RANEXA 1000 MG [id number]:Ch est pain,Unstable angina (HCC) TAKE 1 TABLET TWICE A DAY 180 Tab 3 06/16/2018 Active glimepiride (AMARYL) 4 MG Tablet TAKE 2 TABLETS BY MOUTH DAILY WITH THE FIRST MEAL OF THE DAY FOR DIABETES 180 Tab 1 07/03/2018 Active glimepiride (AMARYL) 4 MG Tablet TAKE 2 TABLETS BY MOUTH DAILY WITH THE FIRST MEAL OF THE DAY FOR DIABETES 180 Tab 1 01/02/2018 07/03/2018 Discontinued documented as of this encounter (statuses as of 07/03/2018) Active Problems Problem Noted Date Diabetes mellitus with stage 3 chronic k idney disease 08/26/2017 Overview: Per CKD protocol #1 HTN, goal below 140/90 07/24/2015 Overview: Per HTN Protocol #27. Enlarged aorta 09/15/2009 Overview: Aortic root 4.4 cm 4.29.2009 echo at [facility]. Dyslipidemia, goal LDL below 70 [...] as of this encounter (statuses as of 07/03/2018) Resolved Problems Problem Noted Date Resolved Date [...] Markers for Patients with Cardiovascular Disease Project #[id number] PI: Francoise Tomlin MD Please call [phone] with study related questions INTERFACED RESULT 11/17/2008 10/17/2011 [employer] CARDIO RESEARCH OTHER*[id number] 200806/25/2016 Overview: Renamed Per Clinical Trials Billing Project. Study Titile: Genomic Markers for Patients with Cardiovascular Disease Project #[phone] PI: Francoise Tomlin MD Please call [phone] with study related questions CLASS I-II ANGINA PECTORIS, STABLE 04/26/2002 09/15/2009 Mixed dyslipidemia 04/26/2002 05/01/2009 Overview: Per Lipid Taxonomy. HTN, goal below 140/90 08/23/1998 0 Overview: Per HTN Taxonomy. DM type 2, not at goal 08/23/1998 9 Overview: Modified per Diabetes protocol #14. THREE VESSEL ATHEROSCLEROTIC CORONARY DISEASE 09/15/2009 Dyslipidemia, goal LDL below 160 07/13/2013 documented as of this encounter (statuses as of 07/03/2018) Immunizations Name Dates Previously Given Next Due Pneumococcal Conjugate Vacc, 13 Valent (Prevnar) 01/18/2016 Pneumococcal Polysaccharide PPV23 (Pneumovax) 11/20/2004 Seasonal Influenza, Quadriva lent, No Preserve, 6 Mons & Above, IM 03/01/2018 Seasonal Influenza, Quadriva lent, No Preserve, IM 03/02/2017 Seasonal Influenza, Trivalen t, with Preserve, 3yr & Above, Split 02/16/2013,03/09/2012,01/30/2011,,03/24/2008,05/21/2004 TDAP (age 10 and older)(Boostrix) 07/10/2012 documented as of this encounter Social History Tobacco Use Types Packs/Day Years Used Date Former Smoker Cigarettes 0.5 5 Quit: 05/19 Smokeless Tobacco: Never Used Comments:quit 30 yrs ago, wh ile in [employer] for 4 years Alcohol Use Drinks/Week oz/Week Comments Yes a beer per nigh t Sex Assigned at Date Recorded Not on file Job Start Date Occupation Industry Not on file Not on file Not on file Travel History Travel Start Travel End documented as of this encounter Miscellaneous Notes * Telephone Encounter - Kalli Rojas MD - 07/03/2018 2:09 PM EST Signed Prescriptions: Disp Refills glimepiride (AMARYL) 4 MG Tablet 180 Tab1 Sig: TAKE 2 TABLETS BY MOUTH DAILY WITH THE FIRST MEAL OF THE DAY FOR DIABETES Authorizing Provider: KALLI ROJAS * Telephone Encounter - Isadora Hanna OSA - 07/03/2018 1:31 PM EST No prescriptions requested or ordered in this encounter Last Office Visit: 03/20/2018 Next Office Visit: 09/17/2018 Scheduled Provider(s): Kalli Rojas MD If no future appointments scheduled, and last appointment is greater than a year ago, please schedule patient for a follow-up appointment Last date the medication was ordered: 01-02-18 Patient Phone Numbers Labs: Lab Results Component Value Date/Time CREAT 1.3 (H) 03/20/2018 09:15 AM POTASSIUM 4.6 03/20/2018 09:15 AM TSH 2.81 01/01/2017 01:44 PM LDLCALC 20 11/23/2011 05:00 AM LDLDIRECT 50 10/24/2016 11:50 AM ALT 18 10/24/2016 11:50 AM HGBA1C 7.0 (H) 03/20/2018 09:15 AM documented in this encounter Plan of Treatment Upcoming Encounters Date Type Specialty Care Team Description 09/17/2018 Office Visit Family Medicine Kalli Rojas MD [address] [place] [address] [phone] 01/28/2019 Office Visit Cardiology Azael Lozano MD [address] [place] [address] [phone] Health Maintenance Due Date Last Done Comments *DEPRESSION SCREENING, ANNUAL FOR PTS 18 AND OVER 2014 Yearly B-12 05/01/2018 05/01/2017 CKD GFR USE SMARTSET 04806 09/17/201803/20, 04/07/2017, 10/24/2016, Additional history exists DIABETES-HGBA1C EVERY 6 MONTHS 09/17/2018 03/20/2018, 05/01/2017, 10/24/2016, Additional history exists CKD HGB USE SMARTSET 08846 03/20/201903/20, 04/07/2017, 01/01/2017, Additional history exists CKD PHOS USE SMARTSET 24409 03/20/2019 03/20/2018 DIABETES-FOOT EXAM 03/20/2019 03/20/2018, 0 [...] filedocumented as of this encounter Advance Directives Patient has advance care planning documents, and code status on file. For more information, please contact: [place] [phone] Latest Code Status on File Code Status Date Activated Date Inactivated Comments Full Code 11/22/2011 11:38 PM 11/25/2011 9:22 PM This o rder reflects the patients wishes and were consensually agreed upon. Discussion of Advance Directives occurred with: Patient/Family Does the patient have a Living Will? Yes, not cu rrently available Does the patient have Health Care Power of R And D Lab Technician? Yes, not currently available Full Code [...]
--- OUTSIDE RECORDS SUMMARY | 2023-02-21 02:52 | External Medical Summary | Summary of Care ---
Author Name Unknown Organization [place] [address] Care Team Providers Care Supervisor Engine Repair Name Role Phone Kalli Rojas MD Primary Care Provider [phone] Reason for Visit * Reason Comments eRx-Medication Refill Encounter Details Date Type Department Care Team Description 09/04/2018 Refill Family Practice [facility] [address] [facility] [place] [address] Kalli Rojas MD [address] [place] [address] [phone] Dyslipidemia, goal LDL below 70; Dyslipidemia, goal LDL below 160; Mixed dyslipidemia Allergies No Known Allergiesdocumented as of this encounter (statuses as of 09/04/2018) Medications Medication Sig Dispensed Refills Start Date [...] metoprolol succinate XL (TOPROL XL) 25 MG [id number]:Ch ronic coronary artery disease,Aortocoron jovanna bypass status,Dyslipidemi a, goal LDL below 70 2 daily 180 Tab 1 04/24/2018 Active amLODIPine (NORVASC) 5 MG TabletIndications: HTN, goal below 130/80 Take 1 Tab by mouth daily. 90 Tab 1 05/12/2018 Active RANEXA 1000 MG [id number]:Ch est pain,Unstable angina (HCC) TAKE 1 TABLET [...] THE AFTERNOON 90 Tab 1 09/04/2018 Active rosuvastatin (CRESTOR) 20 MG TabletIndications: Dyslipidemia, goal LDL below 70,Dyslipidemia, goal LDL below 160,Mixed dyslipidemia TAKE 1 TABLET DAILY AT 5 P.M. IN THE AFTERNOON 90 Tab 1 01/15/2018 09/04/2018 Discontinued documented as of this encounter (statuses as of 09/04/2018) Active Problems Problem Noted Date Diabetes mellitus with stage 3 chronic k idney disease 08/26/2017 Overview: Per CKD protocol #1 HTN, goal below 140/90 07/24/2015 Overview: Per HTN Protocol #27. Enlarged aorta 09/15/2009 Overview: Aortic root 4.4 cm 4.29.2009 echo at [facility]. Dyslipidemia, goal LDL below 70 05/01/20 [...] as of this encounter (statuses as of 09/04/2018) Resolved Problems Problem Noted Date Resolved Date [...] Markers for Patients with Cardiovascular Disease Project #[id number] PI: Francoise Tomlin MD Please call [phone] with study related questions INTERFACED RESULT 11/17/2008 10/17/2011 GENOMICS CARDIO RESEARCH OTHER*[id number] 200806/25/2016 Overview: Renamed Per Clinical Trials Billing Project. Study Titile: Genomic Markers for Patients with Cardiovascular Disease Project #[id number] PI: Francoise Tomlin MD Please call [phone] with study related questions CLASS I-II ANGINA PECTORIS, STABLE 04/26/2002 09/15/2009 Mixed dyslipidemia 04/26/2002 05/01/2009 Overview: Per Lipid Taxonomy. HTN, goal below 140/90 08/23/1998 0 Overview: Per HTN Taxonomy. DM type 2, not at goal 08/23/1998 9 Overview: Modified per Diabetes protocol #14. THREE VESSEL ATHEROSCLEROTIC CORONARY DISEASE 09/15/2009 Dyslipidemia, goal LDL below 160 07/13/2013 documented as of this encounter (statuses as of 09/04/2018) Immunizations Name Dates Previously Given Next Due [...] Comments:quit 30 yrs ago, wh ile in [employer] for 4 years Alcohol Use Drinks/Week oz/Week Comments Yes a beer per nigh t Sex Assigned at Date Recorded Not on file Job Start Date Occupation Industry Not on file Not on file Not on file Travel History Travel Start Travel End documented as of this encounter Miscellaneous Notes * Telephone Encounter - Kalli Rojas MD - 09/04/2018 12:34 PM EDT Signed Prescriptions: Disp Refills rosuvastatin (CRESTOR) 20 MG Tablet 90 Tab 1 Sig: TAKE 1 TABLET DAILY AT 5 P.M. IN THE AFTERNOON Authorizing Provider: KALLI ROJAS * Telephone Encounter - Elise Ruelas LPN - 09/04/2018 9:32 AM EDT Pending Prescriptions: Disp Refills rosuvastatin (CRESTOR) 20 MG Tablet [Phar*90 Tab 1 Sig: TAKE 1 TABLET DAILY AT 5 P.M. IN THE AFTERNOON * Telephone Encounter - Elise Ruelas LPN - 09/04/2018 9:31 AM EDT Pending Prescriptions: Disp Refills rosuvastatin (CRESTOR) 20 MG Tablet [Phar*90 Tab 1 Sig: TAKE 1 TABLET DAILY AT 5 P.M. IN THE AFTERNOON Last Office Visit: 03/20/2018 Next Office Visit: 09/17/2018 Scheduled Provider(s): Kalli Rojas MD Last date the medication was ordered: 01/15/18 Patient Active Problem List Diagnosis Code ADVANCE DIRECTIVE INFORMATION BENIGN NEOPLASM LG BOWEL D12.6 Chronic coronary artery disease I25.10 OP CABG X 3 Z09 Aortocoronary bypass status Z95.1 Dyslipidemia, goal LDL below 70 E78.5 Enlarged aorta (HCC) I77.89 S/P angioplasty with stent Z95.820 DM type 2, goal A1C to be determined ([facility]) E11.9 HTN, goal below 140/90 I10 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) E11.22, N18.3 Labs: CREATININE(mg/dL) Frida Dt/Tm Resulted Value [...] HEMOGLOBIN, A1C(%) Frida Dt/Tm Resulted Value Status 03/20/18 9:15A 03/20/18 7.0* FINAL 05/01/17 2:43P 05/01/17 7.4* FINAL 10/24/16 11:50A 10/24/16 6.5* FINAL documented in this encounter Plan of Treatment Upcoming Encounters Date Type Specialty Care Team Description 09/17/2018 Office Visit Family Medicine Kalli Rojas MD [address] [place] [address] [phone] 01/28/2019 Office Visit Cardiology Azael Lozano MD [address] [place] [address] [phone] Health Maintenance Due Date Last Done Comments *DEPRESSION SCREENING, ANNUAL FOR PTS 18 AND OVER 2014 Yearly B-12 05/01/2018 05/01/2017 CKD GFR USE SMARTSET 52167 09/17/201803/20, 04/07/2017, 10/24/2016, Additional history exists DIABETES-HGBA1C EVERY 6 MONTHS 09/17/2018 03/20/2018, 05/01/2017, 10/24/2016, Additional history exists CKD HGB USE SMARTSET 42485 03/20/201903/20, 04/07/2017, 01/01/2017, Additional history exists CKD PHOS USE SMARTSET 80549 03/20/2019 03/20/2018 DIABETES-FOOT EXAM 03/20/2019 03/20/2018, 0 [...] hyperlipidemia documented in this encounter Advance Directives Patient has advance care planning documents, and code status on file. For more information, please contact: [place] [phone] Latest Code Status on File Code Status Date Activated Date Inactivated Comments Full Code 11/22/2011 11:38 PM 11/25/2011 9:22 PM This o rder reflects the patients wishes and were consensually agreed upon. Discussion of Advance Directives occurred with: Patient/Family Does the patient have a Living Will? Yes, not cu rrently available Does the patient have Health Care Power of Shipping Processor? Yes, not currently available Full Code 09/15/2009 [...]
--- OUTSIDE RECORDS SUMMARY | 2023-02-21 02:52 | External Medical Summary | Summary of Care ---
Author Name Unknown Organization [place] [address] Care Team Providers Care Snack Stewardess Name Role Phone Sylvia Rojas MD Primary Care Provider [phone] Reason for Visit * Reason Comments eRx-Medication Refill Encounter Details Date Type Department Care Team Description 06/15/2018 Refill Cardiology, [facility] [address] [facility] [place] [address] Sushila Lozano MD [address] [facility] [place] [address] [phone] Chest pain; Unstable angina (HCC) Allergies No Known Allergiesdocumented as of this encounter (statuses as of 06/16/2018) Medications Medication Sig Dispensed Refills Start Date End Date Status ONE TOUCH ULTRA DEVIIndications:DM type 2, not at goal ([facility]) check daily 1 0 12/11/2005 Active ONE TOUCH ULTRA CONTROL SOLNIndications:DM type 2, not at goal (HCC) check daily 1 11 12/11/2005 Active ONE TOUCH ULTRA TEST STRPIndications:DM type 2, not at goal ([facility] [...] Tab 1 01/02/2018 Active JANUVIA 100 MG TabletIndications: Diabetes mellitus [...] metoprolol succinate XL (TOPROL XL) 25 MG [id number]:Ch ronic coronary artery disease,Aortocoron jovanna bypass status,Dyslipidemi a, goal LDL below 70 2 daily 180 Tab 1 04/24/2018 Active amLODIPine (NORVASC) 5 MG TabletIndications: HTN, goal below 130/80 Take 1 Tab by mouth daily. 90 Tab 1 05/12/2018 Active RANEXA 1000 MG SZ42Txzxbeqotyf:Ch est pain,Unstable angina (HCC) TAKE 1 TABLET TWICE A DAY 180 Tab 3 06/16/2018 Active RANEXA 1000 MG LT17Jjxgmtviint:Ch est pain,Unstable angina (HCC) TAKE 1 TABLET TWICE A DAY 180 Tab 3 06/17/2017 06/15/2018 Discontinued documented as of this encounter (statuses as of 06/16/2018) Active Problems Problem Noted Date Diabetes mellitus with stage 3 chronic k idney disease 08/26/2017 Overview: Per CKD protocol #1 HTN, goal below 140/90 07/24/2015 Overview: Per HTN Protocol #27. Enlarged aorta 09/15/2009 Overview: Aortic root 4.4 cm 4.29.2009 echo at [facility]. Dyslipidemia, goal LDL below [...] as of this encounter (statuses as of 06/16/2018) Resolved Problems Problem Noted Date Resolved Date [...] Markers for Patients with Cardiovascular Disease Project #[id number] PI: Francoise Tomlin MD Please call [phone] with study related questions INTERFACED RESULT 11/17/2008 10/17/2011 GENOMICS CARDIO RESEARCH OTHER*[id number] 200806/25/2016 Overview: Renamed Per Clinical Trials Billing Project. Study Titile: Genomic Markers for Patients with Cardiovascular Disease Project #[id number] PI: Francoise Tomlin MD Please call [phone] with study related questions CLASS I-II ANGINA PECTORIS, STABLE 04/26/2002 09/15/2009 Mixed dyslipidemia 04/26/2002 05/01/2009 Overview: Per Lipid Taxonomy. HTN, goal below 140/90 08/23/1998 0 Overview: Per HTN Taxonomy. DM type 2, not at goal 08/23/1998 9 Overview: Modified per Diabetes protocol #14. THREE VESSEL ATHEROSCLEROTIC CORONARY DISEASE 09/15/2009 Dyslipidemia, goal LDL below 160 07/13/2013 documented as of this encounter (statuses as of 06/16/2018) Immunizations Name Dates Previously Given Next Due [...] Comments:quit 30 yrs ago, wh ile in [employer] for 4 years Alcohol Use Drinks/Week oz/Week Comments Yes a beer per nigh t Sex Assigned at Date Recorded Not on file Job Start Date Occupation Industry Not on file Not on file Not on file Travel History Travel Start Travel End documented as of this encounter Miscellaneous Notes * Telephone Encounter - Sushila Lozano MD - 06/16/2018 5:06 PM EST Signed Prescriptions: Disp Refills RANEXA 1000 MG TB12 180 Tab3 Sig: TAKE 1 TABLET TWICE A DAY Authorizing Provider: SUSHILA LOZANO * Telephone Encounter - Silvia Beaulieu RN - 06/16/2018 3:01 PM EST Pending Prescriptions: Disp Refills RANEXA 1000 MG TB12 [Pharmacy Med Name: R*180 Tab3 Sig: TAKE 1 TABLET TWICE A DAY * Telephone Encounter - Elise Ruelas LPN - 06/16/2018 2:50 PM EST Pending Prescriptions: Disp Refills RANEXA 1000 MG TB12 [Pharmacy Med Name: R*180 Tab3 Sig: TAKE 1 TABLET TWICE A DAY * Telephone Encounter - Elise Ruelas LPN - 06/16/2018 2:50 PM EST Pending Prescriptions: Disp Refills RANEXA 1000 MG TB12 [Pharmacy Med Name: R*180 Tab3 Sig: TAKE 1 TABLET TWICE A DAY Last Office Visit: 10/28/2017 Next Office Visit: 06/17/2018 Scheduled Provider(s): Sushila Lozano MD Last date the medication was ordered: 06/17/17 Patient Active Problem List Diagnosis Code ADVANCE DIRECTIVE INFORMATION BENIGN NEOPLASM LG BOWEL D12.6 Chronic coronary artery disease I25.10 OP CABG X 3 Z09 Aortocoronary bypass status Z95.1 Dyslipidemia, goal LDL below 70 E78.5 Enlarged aorta ([facility]) I77.89 S/P angioplasty with stent Z95.9 DM type 2, goal A1C to be determined ([facility]) E11.9 HTN, goal below 140/90 I10 Diabetes mellitus with stage 3 chronic kidney disease ([facility]) E11.22, N18.3 Labs: CREATININE(mg/dL) Frida Dt/Tm Resulted Value Status 03/20/18 9:15A 03/20/18 1.3* FINAL POTASSIUM(mmol/L) Frida Dt/Tm Resulted Value Status 03/20/18 9:15A 03/20/18 4.6 FINAL TSH(uIU/mL) Frida Dt/Tm Resulted Value Status 01/01/17 1:44P 01/01/17 2.81 FINAL LDL (DIRECT MEASURE)(mg/dL) Frida Dt/Tm Resulted Value Status 10/24/16 11:50A 10/24/16 50 FINAL 02/20/15 3:38P 02/21/15 48 FINAL ALT(U/L) Frida Dt/Tm Resulted Value Status 10/24/16 11:50A 6/8/17 18 FINAL Hemoglobin AIC Results: HEMOGLOBIN, A1C(%) Frida Dt/Tm Resulted Value Status 03/20/18 9:15A 03/20/18 7.0* FINAL 05/01/17 2:43P 05/01/17 7.4* FINAL 10/24/16 11:50A 10/24/16 6.5* FINAL documented in this encounter Plan of Treatment Upcoming Encounters Date Type Specialty Care Team Description 06/17/2018 Office Visit Cardiology Sushila Lozano MD [address] [place] [address] [phone] 09/17/2018 Office Visit Family Medicine Sylvia Rojas MD [address] [place] [address] [phone] Health Maintenance Due Date Last Done Comments *DEPRESSION SCREENING, ANNUAL FOR PTS 18 AND OVER 2014 Yearly B-12 05/01/2018 05/01/2017 CKD GFR USE SMARTSET 49216 09/17/201803/20, 04/07/2017, 10/24/2016, Additional history exists DIABETES-HGBA1C EVERY 6 MONTHS 09/17/2018 03/20/2018, 05/01/2017, 10/24/2016, Additional history exists CKD HGB USE SMARTSET 73752 03/20/201903/20, 04/07/2017, 01/01/2017, Additional history exists CKD PHOS USE SMARTSET 79964 03/20/2019 03/20/2018 DIABETES-FOOT EXAM 03/20/2019 03/20/2018, 0 [...] syndrome documented in this encounter Advance Directives Patient has advance care planning documents, and code status on file. For more information, please contact: [place] [phone] Latest Code Status on File Code Status Date Activated Date Inactivated Comments Full Code 11/22/2011 11:38 PM 11/25/2011 9:22 PM This o rder reflects the patients wishes and were consensually agreed upon. Discussion of Advance Directives occurred with: Patient/Family Does the patient have a Living Will? Yes, not cu rrently available Does the patient have Health Care Power of Casualty Claim Adjuster? Yes, not currently available Full Code 09/15/2009 [...]
--- OUTSIDE RECORDS SUMMARY | 2023-02-21 02:52 | External Medical Summary | Summary of Care ---
Author Name Unknown Organization [facility] [address] Care Team Providers Care Masking Machine Operator Name Role Phone Sylvia Rojas MD Primary Care Provider [phone] Reason for Visit * Reason Comments eRx-Medication Refill Encounter Details Date Type Department Care Team Description 10/08/2018 Refill Cardiology, [facility] [address] [place] [address] Azael Lozano MD [address] [place] [address] [phone] Chronic coronary artery disease*; Aortocoronary bypass status; Dyslipidemia, goal LDL below 70; HTN, goal below 140/90 Allergies No Known Allergiesdocumented as of this encounter (statuses as of 10/08/2018) Medications Medication Sig Dispensed Refills Start Date [...] the morning. 90 Tab 1 01/26/2018 Active amLODIPine (NORVASC) 5 MG TabletIndications: HTN, goal below 130/80 Take 1 Tab by mouth daily. 90 Tab 1 05/12/2018 Active RANEXA 1000 MG GI16Zhjazsqills:Ch est pain,Unstable angina (HCC) TAKE 1 TABLET [...] metoprolol succinate XL (TOPROL XL) 25 MG MS03Xxwxpumbejm:Ch ronic coronary artery disease,Aortocoron jovanna bypass status,HTN, goal below 140/90 TAKE 2 TABLETS BY MOUTH EVERY DAY 180 Tab 1 10/08/2018 Active metoprolol succinate XL (TOPROL XL) 25 MG MK87Vlkqqofxksc:[place]ent[place] ronic coronary artery disease,Aortocoron jovanna bypass status,Dyslipidemi a, goal LDL below 70 2 daily 180 Tab 1 04/24/2018 10/08/2018 Discontinued documented as of this encounter (statuses as of 10/08/2018) Active Problems Problem Noted Date History of colon polyps 09/08/2018 Diabetes mellitus with stage 3 chronic k idney disease 08/26/2017 Overview: Per CKD protocol #1 HTN, goal below 140/90 07/24/2015 Overview: Per HTN Protocol #27. Enlarged aorta 09/15/2009 Overview: Aortic root 4.4 cm 4.29.2009 echo at [facility]. Dyslipidemia, goal LDL below 70 05/01/20 [...] as of this encounter (statuses as of 10/08/2018) Resolved Problems Problem Noted Date Resolved Date [...] Markers for Patients with Cardiovascular Disease Project #[id number] PI: Francoise Tomlin MD Please call [phone] with study related questions INTERFACED RESULT 11/17/2008 10/17/2011 GENOMICS CARDIO RESEARCH OTHER*[id number] 200806/25/2016 Overview: Renamed Per Clinical Trials Billing Project. Study Titile: Genomic Markers for Patients with Cardiovascular Disease Project #[id number] PI: Francoise Tomlin MD Please call [phone] with study related questions CLASS I-II ANGINA [...] as of this encounter (statuses as of 10/08/2018) Immunizations Name Administration Dates Next Due Pneumococcal [...] Comments:quit 30 yrs ago, wh ile in [employer] for 4 years Alcohol Use Drinks/Week oz/Week Comments Yes a beer per nigh t Sex Assigned at Date Recorded Not on file Job Start Date Occupation Industry Not on file Not on file Not on file Travel History Travel Start Travel End documented as of this encounter Miscellaneous Notes * Telephone Encounter - Leandro Heath DO - 10/08/2018 10:47 AM EDT Signed Prescriptions: Disp Refills metoprolol succinate XL (TOPROL XL) 25 MG *180 Tab1 Sig: TAKE 2 TABLETS BY MOUTH EVERY DAY Authorizing Provider: LEANDRO HEATH * Telephone Encounter - Ravi Salinas LPN - 10/08/2018 10:11 AM EDT Pending Prescriptions: Disp Refills metoprolol succinate XL (TOPROL XL) 25 MG*180 Tab1 Sig: TAKE 2 TABLETS BY MOUTH EVERY DAY * Telephone Encounter - Elise Ruelas LPN - 10/08/2018 10:09 AM EDT Pending Prescriptions: Disp Refills metoprolol succinate XL (TOPROL XL) 25 MG*180 Tab1 Sig: TAKE 2 TABLETS BY MOUTH EVERY DAY * Telephone Encounter - Elise Ruelas LPN - 10/08/2018 10:09 AM EDT Pending Prescriptions: Disp Refills metoprolol succinate XL (TOPROL XL) 25 MG*180 Tab1 Sig: TAKE 2 TABLETS BY MOUTH EVERY DAY Last Office Visit: 06/17/2018 Next Office Visit: 01/28/2019 Scheduled Provider(s): Azael Lozano MD Last date the medication was ordered: 04/24/18 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 Dyslipidemia, goal LDL below 70 E78.5 Enlarged aorta ([facility]) I77.89 S/P angioplasty with stent Z95.820 DM type 2, goal A1C to be determined ([facility]) E11.9 HTN, goal below 140/90 I10 Diabetes mellitus with stage 3 chronic kidney disease ([facility]) E11.22, N18.3 History of colon polyps Z86.010 Labs: CREATININE(mg/dL) Frida Dt/Tm Resulted Value Status [...] Encounters Date Type Specialty Care Team Description 11/10/2018 Office Visit Family Medicine Sylvia Rojas MD [address] [place] [address] [phone] 01/28/2019 Office Visit Cardiology Azael Lozano MD [address] [place] [address] [phone] Health Maintenance Due Date Last Done Comments *DEPRESSION SCREENING, ANNUAL FOR PTS 18 AND OVER 2014 Yearly B-12 05/01/2018 05/01/2017 CKD GFR USE SMARTSET 62782 09/17/201803/20, 04/07/2017, 10/24/2016, Additional history exists DIABETES-HGBA1C EVERY 6 MONTHS 09/17/2018 03/20/2018, 05/01/2017, 10/24/2016, Additional history exists CKD HGB USE SMARTSET 27905 03/20/201903/20, 04/07/2017, 01/01/2017, Additional history exists CKD PHOS USE SMARTSET 43888 03/20/2019 03/20/2018 DIABETES-FOOT EXAM 03/20/2019 03/20/2018, 0 [...] Coronary atherosclerosis of unspecified type of vessel, iroquois or graft Aortocoronary bypass status Postsurgical aortocoronary bypass status Dyslipidemia, goal LDL below 70 Other and unspecified hyperlipidemia HTN, goal below 140/90 Unspecified essential hypertension documented in this encounter Advance Directives Documents on File Type Date Recorded Patient Bag Liner Expl anation Advanced Directive 11/15/2008 12:00 AM [...] the patient have Health Care Power of Home Visitor? Yes, not currently available Full Code 09/15/2009 [...]
--- OUTSIDE RECORDS SUMMARY | 2023-02-21 02:52 | External Medical Summary | Summary of Care ---
Author Name Unknown Organization [place] [address] Care Team Providers Care Rivet Tapping Machine Operator Name Role Phone Kalli Rojas MD Primary Care Provider [phone] Reason for Visit * Reason Comments Follow Up Encounter Details Date Type Department Care Team Description 06/17/2018 Office Visit Cardiology, [facility] [address] [facility] [place] [address] Azael Lozano MD [address] [facility] [place] [address] [phone] Chronic coronary artery disease*; Dyslipidemia, goal LDL below 70 Allergies No Known Allergiesdocumented as of this encounter (statuses as of 06/17/2018) Medications Medication Sig Dispensed Refills Start Date End Date Status ONE TOUCH ULTRA DEVIIndications:DM type 2, not at goal (HCC) check daily 1 0 12/11/2005 Active ONE TOUCH ULTRA CONTROL SOLNIndications:DM type 2, not at goal (HCC) check daily 1 11 12/11/2005 Active ONE TOUCH ULTRA TEST STRPIndications:DM type 2, not at goal ([facility]) test daily 1 box 11 12/11/2005 Active ONE TOUCH ULTRASOFT LANCETS MISCIndications:DM type 2, not at goal ([facility]) test daily 1 box 11 12/11/2005 Active [...] metoprolol succinate XL (TOPROL XL) 25 MG [id number]:Chroni c coronary artery disease,Aortocoronary bypass status,Dyslipidemia, goal LDL below 70 2 daily 180 Tab 1 04/24/2018 Active amLODIPine (NORVASC) 5 MG TabletIndications:HTN, goal below 130/80 Take 1 Tab by mouth daily. 90 Tab 1 05/12/2018 Active RANEXA 1000 MG [id number]:Chest pain,Unstable angina (HCC) TAKE 1 TABLET TWICE A DAY 180 Tab 3 06/16/2018 Active documented as of this encounter (statuses as of 06/17/2018) Active Problems Problem Noted Date Diabetes mellitus with stage 3 chronic k idney disease 08/26/2017 Overview: Per CKD protocol #1 HTN, goal below 140/90 07/24/2015 Overview: Per HTN Protocol #27. Enlarged aorta 09/15/2009 Overview: Aortic root 4.4 cm 4.29.2009 echo at [facility]. Dyslipidemia, goal LDL below 70 05/01/20 [...] as of this encounter (statuses as of 06/17/2018) Resolved Problems Problem Noted Date Resolved Date [...] Markers for Patients with Cardiovascular Disease Project #[id number] PI: Francoise Tomlin MD Please call [phone] with study related questions INTERFACED RESULT 11/17/2008 10/17/2011 GENOMICS CARDIO RESEARCH OTHER*[id number] 200806/25/2016 Overview: Renamed Per Clinical Trials Billing Project. Study Titile: Genomic Markers for Patients with Cardiovascular Disease Project # PI: Francoise Tomlin MD Please call [phone] with study related questions CLASS I-II ANGINA PECTORIS, STABLE 04/26/2002 09/15/2009 Mixed dyslipidemia 04/26/2002 05/01/2009 Overview: Per Lipid Taxonomy. HTN, goal below 140/90 08/23/1998 0 Overview: Per HTN Taxonomy. DM type 2, not at goal 08/23/1998 9 Overview: Modified per Diabetes protocol #14. THREE VESSEL ATHEROSCLEROTIC CORONARY DISEASE 09/15/2009 Dyslipidemia, goal LDL below 160 07/13/2013 documented as of this encounter (statuses as of 06/17/2018) Immunizations Name Dates Previously Given Next Due [...] Comments:quit 30 yrs ago, wh ile in [employer] for 4 years Alcohol Use Drinks/Week oz/Week Comments Yes a beer per nigh t Sex Assigned at Date Recorded Not on file Job Start Date Occupation Industry Not on file Not on file Not on file Travel History Travel Start Travel End documented as of this encounter Last Filed Vital Signs Vital Sign Reading Time Taken Blood Pressure 126/64 06/17/2018 12:56 PM EST Pulse 68 06/17/2018 12:56 PM EST Temperature - - Respiratory Rate 16 06/17/2018 12:5 6 PM EST Oxygen Saturation - - Inhaled Oxygen Concentration - - Weight 72.1 kg (159 lb) 06/17/2018 12:5 6 PM EST Height - - Body Mass Index 22.18 06/17/2018 12:56 PM EST documented in this encounter Progress Notes * Azael Lozano MD - 06/17/2018 2:09 PM EST 06/17/2018 Cardiology Follow Up Referring Provider: PCP: [place] [address] Chief Complaint: Routine followup coronary artery disease SUBJECTIVE: Dirk Garcia is a 82 year old year old male with cardiac [...] and right coronary artery with patent REYES graft. 3. Cardiac catheterization 2011 without progression of disease. 4. Stable class 2 angina pectoris. 5. Hypertension. 6. Hyperlipidemia. 7. Moderate aortic valve sclerosis Patient presents today in routine followup. Has been doing well. Noted no significant change in anginal pattern with rare chest discomfort no sublingual nitroglycerin use. Avoids cold weather if possible. Still remains physically active. Notes no dizziness light syncope near syncope. Notes no tachyp alpitations orthopnea PND or peripheral edema. Blood pressures been well controlled. Did receive a flu shot A Complete Review of 10 Systems is as stated above or negative. Patient Active Problem List Diagnosis Code ADVANCE DIRECTIVE INFORMATION BENIGN NEOPLASM LG BOWEL D12.6 Chronic coronary artery disease I25.10 OP CABG X 3 Z09 Aortocoronary bypass status Z95.1 Dyslipidemia, goal LDL below 70 E78.5 Enlarged aorta ([facility]) I77.89 S/P angioplasty with stent Z95.9 DM type 2, goal A1C to be determined ([facility]) E11.9 HTN, goal below 140/90 I10 Diabetes mellitus with stage 3 chronic kidney disease ([facility]) E11.22, N18.3 Review of patient's allergies indicates: No Known Allergies Current Outpatient Medications Medication Sig Dispense Refill RANEXA 1000 MG TB12 TAKE 1 TABLET TWICE A DAY 180 Tab 3 amLODIPine (NORVASC) 5 MG Tablet [...] daily 1 box 11 OBJECTIVE/PHYSICAL EXAMINATION: BP 126/64 | Pulse 68 | Resp 16 | Wt 159 lbs (72.122kg) | BMI 22.18 kg/m | BSA 1.9 m General: no acute distress and stated [...] no abdominal bruit, no femoral bruit Musculoskeletal: no gait disturbance, no joint inflammation, no deforming arthritis Extremities: no edema, no cyanosis, pulses intact 1+/4 Neuro: grossly normal exam ASSESSMENT: 82 year old year old male History of remote coronary bypass grafting, November 2008 with stable class 1 2 angina pectoris, preserved LV systolic function. Patient is on appropriate medical therapies without change in exercise capacity or tolerance PLAN: Continue all current medications as prescribed Lab work to be ordered with next lab draw occluding lipid panel TSH and metabolic panel, CBC DISPOSITION: Follow-up 6 months with patient report symptoms or complaints in the interim Azael Lozano MD [facility], [facility] [address] [place] [address] documented in this encounter Nursing Notes * Winsome Oliveros LPN - 06/17/2018 12:56 PM EST Examination Room: 14 Name: Dirk Garcia Date of : (1935). Reason for Visit: follow up Interim Hospitalization(s): denies Problems/Concerns: denies Chest Pain/SOB: denies [facility] is a way you can talk to your provider online through e-mail. Would you like to sign up? I can activate it for you? NO documented in this encounter Plan of Treatment Upcoming Encounters Date Type Specialty Care Team Description 09/17/2018 Office Visit Family Medicine Kalli Rojas MD [address] [place] [address] [phone] 01/28/2019 Office Visit Cardiology Azael Lozano MD [address] [place] [address] [phone] Scheduled Tests Name Priority Associated Diagnoses Order S chedule LIPID PANEL Routine Chronic coronary artery disease Dyslipidemia, goal LDL below 70 Expected: 10/15/2018, Expires: 07/17/2019 TSH Routine Chronic coronary artery disease Dyslipidemia, goal LDL below 70 Expected: 10/15/2018, Expires: 07/17/2019 CBC/DIFF Routine Chronic coronary artery disease Dyslipidemia, goal LDL below 70 Expected: 10/15/2018, Expires: 07/17/2019 Health Maintenance Due Date Last Done Comments *DEPRESSION SCREENING, ANNUAL FOR PTS 18 AND OVER 2014 Yearly B-12 05/01/2018 05/01/2017 CKD GFR USE SMARTSET 41702 09/17/201803/20, 04/07/2017, 10/24/2016, Additional history exists DIABETES-HGBA1C EVERY 6 MONTHS 09/17/2018 03/20/2018, 05/01/2017, 10/24/2016, Additional history exists CKD HGB USE SMARTSET 09267 03/20/201903/20, 04/07/2017, 01/01/2017, Additional history exists CKD PHOS USE SMARTSET 99282 03/20/2019 03/20/2018 DIABETES-FOOT EXAM 03/20/2019 03/20/2018, 0 [...] Coronary atherosclerosis of unspecified type of vessel, chemehuevi or graft Dyslipidemia, goal LDL below 70 Other and unspecified hyperlipidemia documented in this encounter Advance Directives Patient has advance care planning documents, and code status on file. For more information, please contact: [place] [address] Latest Code Status on File Code Status Date Activated Date Inactivated Comments Full Code 11/22/2011 11:38 PM 11/25/2011 9:22 PM This o rder reflects the patients wishes and were consensually agreed upon. Discussion of Advance Directives occurred with: Patient/Family Does the patient have a Living Will? Yes, not cu rrently available Does the patient have Health Care Power of Presser Automatic? Yes, not currently available Full Code 09/15/2009 [...]
--- OUTSIDE RECORDS SUMMARY | 2023-02-21 02:52 | External Medical Summary | Summary of Care ---
Author Name Unknown Organization [place] [address] Care Team Providers Care Night Guard Name Role Phone Sylvia Rojas MD Primary Care Provider [phone] Reason for Visit * Reason Comments Medication Refill Encounter Details Date Type Department Care Team Description 05/11/2018 Refill Cardiology, [facility] [address] [facility] [place] [id number] Sushila Lozano MD 132 [facility] [place] [address] [phone] HTN, goal below 130/80 Allergies No Known Allergiesas of this encounter Medications Medication Sig Dispensed Refills Start Date End Date Status ONE TOUCH ULTRA DEVIIndications:DM type 2, not at goal (HCC) check daily 1 0 12/11/2005 Active ONE TOUCH ULTRA CONTROL SOLNIndications:DM type 2, not at goal ([facility]) check daily 1 11 12/11/2005 Active ONE TOUCH ULTRA TEST STRPIndications:DM type 2, not at goal ([facility]) test daily 1 box 11 12/11/2005 Active ONE TOUCH ULTRASOFT LANCETS MISCIndications:DM type 2, not at goal ([facility]) test daily 1 box 11 12/11/2005 Active nitroglycerin (NITROSTAT) 0.4 MG SUBLIndications:Ch ronic coronary artery disease DISSOLVE 1 TABLET UNDER THE TONGUE EVERY 5 MINUTES FOR CHEST PAIN. UP TO 3 DOSES IN 15 MINUTES. 25 Tab 1 05/01/2017 Active RANEXA 1000 MG [id number]:Ch est pain,Unstable angina (HCC) TAKE 1 TABLET [...] metoprolol succinate XL (TOPROL XL) 25 MG KY39Qihqylrtzet:Ch ronic coronary artery disease,Aortocoron jovanna bypass status,Dyslipidemi a, goal LDL below 70 2 daily 180 Tab 1 04/24/2018 Active amLODIPine (NORVASC) 5 MG TabletIndications: HTN, goal below 130/80 Take 1 Tab by mouth daily. 90 Tab 1 05/12/2018 Active amLODIPine (NORVASC) 5 MG TabletIndications: HTN, goal below 130/80 Take 1 Tab by mouth daily. 90 Tab 1 11/04/2017 05/11/2018 Discontinued as of this encounter Active Problems Problem [...] Markers for Patients with Cardiovascular Disease Project #[id number] PI: Francoise Tomlin MD Please call [phone] with study related questions INTERFACED RESULT 11/17/2008 10/17/2011 GENOMICS CARDIO RESEARCH OTHER*[id number] 200806/25/2016 Overview: Renamed Per Clinical Trials Billing Project. Study Titile: Genomic Markers for Patients with Cardiovascular Disease Project #[id number] PI: Francoise Tomlin MD Please call [phone] with study related questions CLASS I-II ANGINA [...] Comments:quit 30 yrs ago, wh ile in [employer] for 4 years Alcohol Use Drinks/Week oz/Week Comments Yes a beer per nigh t Sex Assigned at Date Recorded Not on file Job Start Date Occupation Industry Not on file Not on file Not on file Travel History Travel Start Travel End as of this encounter Miscellaneous Notes * Telephone Encounter - Sushila Lozano MD - 05/12/2018 10:01 AM EST Signed Prescriptions: Disp Refills amLODIPine (NORVASC) 5 MG Tablet 90 Tab 1 Sig: Take 1 Tab by mouth daily. Authorizing Provider: SUSHILA LOZANO * Telephone Encounter - Arlin, Winsome M, ARMATURE STRAIGHTENER - 05/11/2018 1:40 PM EST Pending Prescriptions: Disp Refills amLODIPine (NORVASC) 5 MG Tablet 90 Tab 1 Sig: Take 1 Tab by mouth daily. Last Office Visit: 10/28/2017 Next Office Visit: 06/17/2018 Scheduled Provider(s): Sushila Lozano MD Last medication order date: 10/2017 Patient Active Problem List Diagnosis Code ADVANCE DIRECTIVE INFORMATION BENIGN NEOPLASM LG BOWEL D12.6 Chronic coronary artery disease I25.10 OP CABG X 3 Z09 Aortocoronary bypass status Z95.1 Dyslipidemia, goal LDL below 70 E78.5 Enlarged aorta ([facility]) I77.89 S/P angioplasty with stent Z95.9 DM type 2, goal A1C to be determined ([facility]) E11.9 HTN, goal below 140/90 I10 Diabetes mellitus with stage 3 chronic kidney disease ([facility]) E11.22, N18.3 Labs: CREATININE(mg/dL) Frida Dt/Tm Resulted [...] 7.4* FINAL 10/24/16 11:50A 10/24/16 6.5* FINAL in this encounter Plan of Treatment Upcoming Encounters Date Type Specialty Care Team Description 06/17/2018 Office Visit Cardiology Sushila Lozano MD [address] [place] [address] [phone] 09/17/2018 Office Visit Family Medicine Sylvia Rojas MD [address] [place] [address] [phone] Health Maintenance Due Date Last Done Comments *DEPRESSION SCREENING, EDMUNDO [place] FOR PTS 18 AND OVER 2014 Yearly B-12 05/01/2018 05/01/2017 CKD GFR USE SMARTSET 58166 09/17/201803/20, 04/07/2017, 10/24/2016, Additional history exists DIABETES-HGBA1C EVERY 6 MONTHS 09/17/2018 1 05/20/2017, 05/01/2017, 10/24/2016, Additional history exists CKD HGB USE SMARTSET 22509 03/20/201903/20, 04/07/2017, 01/01/2017, Additional history exists CKD PHOS USE SMARTSET 95525 03/20/2019 03/20/2018 DIABETES-FOOT EXAM 03/20/2019 03/20/2018, 0 10/24/2016, 01/18/2016, Additional history exists COLONOSCOPY-EVERY 5 YRS AGES 18-100 03/20/2021 03/20/2016, 04/30/2010, 02/05/2002 DTaP,Tdap,and Td Vaccines (2 - Td) 07/10/20222012 PNEUMOCOCCAL ADULT 65 YRS AND OVER Completed 2015, 11/20/2004 Influenza Vaccine (FLU shot) Completed , 03/02/2017, 02/16/2013, Additional history exists as of this encounter Implants Not on fileas of this encounter Visit Diagnoses Diagnosis HTN, goal below 130/80 Unspecified essential hypertension in this encounter Advance Directives Patient has advance care planning documents, and code status on file. For more information, please contact: [place] [address] Latest Code Status on File Code Status Date Activated Date Inactivated Comments Full Code 11/22/2011 11:38 PM 11/25/2011 9:22 PM This o rder reflects the patients wishes and were consensually agreed upon. Discussion of Advance Directives occurred with: Patient/Family Does the patient have a Living Will? Yes, not cu rrently available Does the patient have Health Care Power of Behavior Management Specialist? Yes, not currently available Full Code [...]
--- OUTSIDE RECORDS SUMMARY | 2023-02-21 02:52 | External Medical Summary | Summary of Care ---
Author Name Unknown Organization [place] [address] Care Team Providers Care Online Merchandising Coordinator Name Role Phone Sylvia Rojas MD Primary Care Provider Reason for Visit * Reason Comments Medication Refill Encounter Details Date Type Department Care Team Description 11/02/2018 Refill Cardiology, [facility] [address] [facility] [place] [address] Sushila Lozano MD [address] [facility] [place] [address] [phone] HTN, goal below 130/80 Allergies No Known Allergiesdocumented as of this encounter (statuses as of 11/02/2018) Medications Medication Sig Dispensed Refills Start Date [...] Tab 1 01/26/2018 Active RANEXA 1000 MG PN60Nszgqnajdkp:Ch est pain,Unstable angina (HCC) TAKE 1 TABLET [...] metoprolol succinate XL (TOPROL XL) 25 MG IE90Zygsfztsfjg:Ch ronic coronary artery disease,Aortocoron jovanna bypass status,HTN, goal below 140/90 TAKE 2 TABLETS BY MOUTH EVERY DAY 180 Tab 1 10/08/2018 Active amLODIPine (NORVASC) 5 MG TabletIndications: HTN, goal below 130/80 Take 1 Tab by mouth daily. 90 Tab 1 11/02/2018 Active amLODIPine (NORVASC) 5 MG TabletIndications: HTN, goal below 130/80 Take 1 Tab by mouth daily. 90 Tab 1 05/12/2018 11/02/2018 Discontinued documented as of this encounter (statuses as of 11/02/2018) Active Problems Problem Noted Date History of colon polyps 09/08/2018 Diabetes mellitus with stage 3 chronic k idney disease 08/26/2017 Overview: Per CKD protocol #1 HTN, goal below 140/90 07/24/2015 Overview: Per HTN Protocol #27. Enlarged aorta 09/15/2009 Overview: Aortic root 4.4 cm 4.29.2009 echo [facility]. Dyslipidemia, goal LDL below 70 05/01/20 09 [...] as of this encounter (statuses as of 11/02/2018) Resolved Problems Problem Noted Date Resolved Date [...] Markers for Patients with Cardiovascular Disease Project #[id number] PI: Francoise Tomlin MD Please call [phone] with study related questions INTERFACED RESULT 11/17/2008 10/17/2011 GENOMICS CARDIO RESEARCH OTHER*[id number] 200806/25/2016 Overview: Renamed Per Clinical Trials Billing Project. Study Titile: Genomic Markers for Patients with Cardiovascular Disease Project #[id number] PI: Francoise Tomlin MD Please call [phone] with study related questions CLASS I-II ANGINA [...] as of this encounter (statuses as of 11/02/2018) Immunizations Name Administration Dates Next Due Pneumococcal [...] Comments:quit 30 yrs ago, wh ile in [employer] for 4 years Alcohol Use Drinks/Week oz/Week Comments Yes a beer per nigh t Sex Assigned at Date Recorded Not on file Job Start Date Occupation Industry Not on file Not on file Not on file Travel History Travel Start Travel End documented as of this encounter Miscellaneous Notes * Telephone Encounter - Sushila Lozano MD - 11/02/2018 2:43 PM EDT Signed Prescriptions: Disp Refills amLODIPine (NORVASC) 5 MG Tablet 90 Tab 1 Sig: Take 1 Tab by mouth daily. Authorizing Provider: SUSHILA LOZANO * Telephone Encounter - Winsome Oliveros LPN - 11/02/2018 2:31 PM EDT Pending Prescriptions: Disp Refills amLODIPine (NORVASC) 5 MG Tablet 90 Tab 1 Sig: Take 1 Tab by mouth daily. Last Office Visit: 06/17/2018 Next Office Visit: 01/28/2019 Scheduled Provider(s): Sushila Lozano MD Last medication order date: 05/12/2018 Have you choosen a preferred pharm?? 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 Dyslipidemia, goal LDL below 70 E78.5 Enlarged aorta ([facility]) I77.89 S/P angioplasty with stent Z95.820 DM type 2, goal A1C to be determined ([facility]) E11.9 HTN, goal below 140/90 I10 Diabetes mellitus with stage 3 chronic kidney disease ([facility]) E11.22, N18.3 History of colon polyps Z86.010 [...] Medicine Sylvia Rojas MD [address] [place] [address] [phone] 01/28/2019 Office Visit Cardiology Sushila Lozano MD [address] [place] [address] [phone] Health Maintenance Due Date Last Done Comments *DEPRESSION SCREENING, ANNUAL FOR PTS 18 AND OVER 2014 Yearly B-12 05/01/2018 05/01/2017 CKD GFR USE SMARTSET 97827 09/17/201803/20, 04/07/2017, 10/24/2016, Additional history exists DIABETES-HGBA1C EVERY 6 MONTHS 09/17/2018 03/20/2018, 05/01/2017, 10/24/2016, Additional history exists CKD HGB USE SMARTSET 53639 03/20/201903/20, 04/07/2017, 01/01/2017, Additional history exists CKD PHOS USE SMARTSET 99174 03/20/2019 03/20/2018 DIABETES-FOOT EXAM 03/20/2019 03/20/2018, 0 [...] on File Type Date Recorded Patient Filter Bed Placer Expl anation Advanced Directive 11/15/2008 12:00 AM [...] the patient have Health Care Power of Nuclear Medicine Pet Ct Technologist? Yes, not currently available Full Code 09/15/2009 [...]
--- OUTSIDE RECORDS SUMMARY | 2023-02-21 02:53 | External Medical Summary | Summary of Care ---
Author Name Unknown Organization [place] [address] Phone Care Team Providers Care Debone Supervisor Name Role Phone Sylvia Rojas MD Primary Care Provider [phone] Reason for Visit * Reason Comments MEDICATION REFILL FYI Encounter Details Date Type Department Care Team Description 01/20/2018 Telephone Family Practice [facility] [address] [facility] [place] [address] Sylvia Rojas MD [address] [facility] [place] [address] [phone] MEDICATION REFILL; FYI Allergies No Known Allergiesas of this encounter Medications Prescription Sig. Disp. Refills Start Date End Date Status ONE [...] Tab 1 05/01/2017 Active RANEXA 1000 MG [id number]:Ch est pain,Unstable angina (HCC) TAKE 1 TABLET TWICE A DAY 180 Tab 3 06/17/2017 Active aspirin 81 MG chewable tablet Take 1 Tab by mouth daily. 34 Tab 11 10/28/2017 Active metoprolol succinate XL (TOPROL XL) 25 MG [id number]:Ch ronic coronary artery disease,Aortocoron jovanna bypass status,Dyslipidemi a, goal LDL below 70 2 daily 180 Tab 1 10/28/2017 Active amLODIPine (NORVASC) 5 MG TabletIndications: HTN, goal below 130/80 Take 1 Tab by mouth daily. 90 Tab 1 11/04/2017 Active Losartan Potassium-HCTZ 100-12.5 MG per tabletIndications: HTN, goal below 140/90 TAKE 1 TABLET BY MOUTH EVERY DAY 90 Tab 3 12/25/2017 Active metFORMIN (GLUCOPHAGE) 850 MG TabletIndications: DM type 2, goal A1C to be determined ([facility]) Take 1 Tab by mouth 3 times [...] THE AFTERNOON 90 Tab 1 01/15/2018 Active Isosorbide Mononitrate ER 120 MG TB24 Take 1 Tab by mouth daily. In the morning. 30 Tab 5 01/16/2018 Active isosorbide dinitrate (ISORDIL) 20 MG Tablet Take 1 Tab by mouth 3 times a day. at 8am, 12 noon and 4pm. 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 Enlarged aorta ([facility]) 09/15/2009 Overview: Aortic root 4.4 cm 4.29.2009 echo at [facility]. Dyslipidemia, goal LDL below 70 05/01/20 09 Overview: Per Lipid Taxonomy. 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 at prior visit BENIGN NEOPLASM LG BOWEL 01/17/2002 S/P angioplasty with stent Overview: drug eluting 09/15/09 Plavix x 12m DM type 2, goal A1C to be determined ([facility]) as of this encounter Resolved Problems Problem Noted Date Resolved Date HTN, GOAL BELOW 140/80 01/06/2012 6 Overview: Per HTN Protocol #27. Unstable angina ([facility]) 11/23/2011 10/24/2016 Chest pain 11/22/2011 10/24/2016 NSTEMI (non-ST elevated myocardial infarction) ( [facility]) 11/22/2011 12/30/2016 Acute coronary syndrome ([facility]) 09/15/2009 HTN, goal below 130/80 06/14/2009 2 Overview: Per HTN Taxonomy. Type 2 diabetes mellitus wit h hemoglobin A1c goal of less than 7.0% ([facility]) 03/02/2009 03/27/2011 Overview: Modified per Diabetes protocol #14. ICD-10 update of inactive term EXAMINATION OF PARTICIPANT IN CLINICAL TRIAL-gen omics 11/17/2008 09/01/2009 Overview: Renamed Per Clinical Trials Billing Project. Study Titile: Genomic Markers for Patients with Cardiovascular Disease Project #[id number] PI: Francoise Tomlin MD Please call [phone] with study related questions INTERFACED RESULT 11/17/2008 10/17/2011 GENOMICS CARDIO RESEARCH OTHER*[id number] 200806/25/2016 Overview: Renamed Per Clinical Trials Billing Project. Study Titile: Genomic Markers for Patients with Cardiovascular Disease Project #[id number] PI: Francoise Tomlin MD Please call [phone] with study related questions CLASS I-II ANGINA PECTORIS, STABLE 04/26/2002 09/15/2009 Mixed dyslipidemia 04/26/2002 05/01/2009 Overview: Per Lipid Taxonomy. HTN, goal below 140/90 08/23/1998 0 Overview: Per HTN Taxonomy. DM type 2, not at goal (HCC) 08/23/1998 Overview: Modified per Diabetes protocol #14. THREE VESSEL ATHEROSCLEROTIC CORONARY DISEASE 09/15/2009 Dyslipidemia, goal LDL below 160 07/13/2013 as of this encounter Immunizations Name Dates Previously Given Next Due Pneumococcal Conjugate Vacc, 13 Valent (Prevnar) 01/18/2016 Pneumococcal Polyvalent Vacc (Pneumovax) 11/20/2004 Seasonal Influenza, Quadriva lent, No Preserve, IM 03/02/2017 Seasonal Influenza, Trivalen t, with Preserve, 3yr & Above, Split 02/16/2013,03/09/2012,01/30/2011,01/18,03/24/2008,05/21/2004 TDAP (age 10 and older)(Boostrix) 07/10/2012 as of this encounter Social History Tobacco Use Types Packs/Day Years Used Date Former Smoker Cigarettes 0.5 5 Quit: 05/19 Smokeless Tobacco: Never Used Comments:quit 30 yrs ago, wh ile in [employer] for 4 years Alcohol Use Drinks/Week oz/Week Comments Yes a beer per nigh t Sex Assigned at Date Recorded Not on file as of this encounter Miscellaneous Notes * Telephone Encounter - Sanjana Patel OSA - 01/26/2018 2:55 PM EDT Pt's calling regarding the isosorbide refill. Warm transfer to Gissell (pharmacist). Thanks, Corinne Patel [employer] Mechan[employer] Apprentice Pharmacy Refill Call Center 01/26/2018,2:56 PM * Telephone Encounter - Dahlia Reese LPN - 01/21/2018 10:46 AM EDT Pt aware * Telephone Encounter - Rosie Cohen RN - 01/20/2018 5:59 PM EDT Attempted to call patient/parent. Message left on answering machine to return call. * Telephone Encounter - Sylvia Rojas MD - 01/20/2018 5:22 PM EDT pls notify him once a day ohn short supply so changed to similar med but unfortunately needs to be taken tid * Telephone Encounter - Elise Gonzalez Jacobo, MASTER BLACK [employer]T - 01/20/2018 1:44 PM EDT Fax from [employer] on pt's Isosorbide [place] [facility]. Short supply from manufacturing. Please try toreorder and see what alternative could be given instead. in this encounter Plan of Treatment Upcoming Encounters Date Type Specialty Care Team Description 03/20/2018 Office Visit Family Medicine Sylvia Rojas MD [address] [place] [address] 06/17/2018 Office Visit Cardiology Azael Lozano MD [address] [place] [address] Health Maintenance Due Date Last Done Comments CKD PHOS USE SMARTSET 43049 1953 Zoster Vaccines HMT (1 of 2) 1986 *DEPRESSION SCREENING, EDMUNDO Crawford FOR PTS 18 AND OVER 2014 CKD GFR USE SMARTSET 88337 10/05/201704/07, 10/24/2016, 01/18/2016, Additional history exists DIABETES-FOOT EXAM 10/24/2017 10/24/2016, 0 01/18/2016, 02/20/2015, Additional history exists DIABETES-HGBA1C EVERY 6 MONTHS 10/30/2017 1 07/02/2016, 10/24/2016, 01/18/2016, Additional history exists Influenza Vaccine (FLU shot) (#1) 2017 03/02/2017, 02/16/2013, 03/09/2012, Additional history exists CKD HGB USE SMARTSET 31519 04/07/201804/07, 01/01/2017, 01/18/2016, Additional history exists Yearly B-12 05/01/2018 05/01/2017 COLONOSCOPY-EVERY 5 YRS AGES 18-100 03/20/2021 03/20/2016, 04/30/2010, 02/05/2002 DTaP,Tdap,and Td Vaccines (2 - Td) 07/10/20222012 PNEUMOCOCCAL ADULT 65 YRS AND OVER Completed 2015, 11/20/2004 as of this encounter Implants Not on fileas of this encounter
--- OUTSIDE RECORDS SUMMARY | 2023-02-21 02:53 | External Medical Summary ---
Author Name Unknown Address [address] [place] [address] Phone Organization K01:[place] [id number] Laboratory Report Ordering Provider Test Date Status SAMPLE,MYCODE 03/20/2018 09:15:00 Final Observation Date Value Abnormality Reference Status MYCODE SUBSEQUENT 03/20/2018 17:06 SPECIMEN OBTAINED Final Performing Location [place] [id number]
--- OUTSIDE RECORDS SUMMARY | 2023-02-21 02:53 | External Medical Summary | Summary of Care ---
Author Name Unknown Organization [place] [address] Phone Care Team Providers Care Cra Name Role Phone Sylvia Rojas MD Primary Care Provider [phone] Reason for Visit * Reason Comments MEDICATION REFILL FYI Encounter Details Date Type Department Care Team Description 01/20/2018 Telephone Family Practice [facility] [address] [facility] [place] [address] Sylvia Rojas MD [address] [facility] [place] [address] [phone] MEDICATION REFILL; FYI Allergies No Known Allergiesas of this encounter Medications Prescription Sig. Disp. Refills Start Date End Date Status ONE TOUCH ULTRA DEVIIndications:DM type 2, not at goal ([facility]) check daily 1 0 12/11/2005 Active ONE TOUCH ULTRA CONTROL SOLNIndications:DM type 2, not at goal ([facility]) check daily 1 11 [...] Tab 1 05/01/2017 Active RANEXA 1000 MG [id number]:Ch est pain,Unstable angina (HCC) TAKE 1 TABLET TWICE A DAY 180 Tab 3 06/17/2017 Active aspirin 81 MG chewable tablet Take 1 Tab by mouth daily. 34 Tab 11 10/28/2017 Active metoprolol succinate XL (TOPROL XL) 25 MG [id number]:Ch ronic coronary artery disease,Aortocoron jovanna bypass status,Dyslipidemi [...] the morning. 90 Tab 1 01/26/2018 Active clopidogrel (PLAVIX) 75 MG TabletIndications: Aortocoronary bypass status,Acute coronary syndrome (HCC),Chronic coronary artery disease,Enlarged aorta (HCC) TAKE 1 TABLET BY MOUTH EVERY DAY 100 Tab 1 07/30/2017 01/23/2018 Discontinued Isosorbide Mononitrate ER 120 MG TB24 Take 1 Tab by mouth daily. In the morning. 30 Tab 5 01/16/2018 01/26/2018 Discontinued as of this encounter Active Problems Problem Noted Date Diabetes mellitus with stage 3 chronic k idney disease ([facility]) 08/26/2017 Overview: Per CKD protocol #1 HTN, goal below 140/90 07/24/2015 Overview: Per HTN Protocol #27. Enlarged aorta ([facility]) 09/15/2009 Overview: Aortic root 4.4 cm 4.29.2009 [...] Overview: Per HTN Protocol #27. Unstable angina ([facility]) 11/23/2011 10/24/2016 Chest pain 11/22/2011 10/24/2016 NSTEMI (non-ST elevated myocardial infarction) ( [facility]) 11/22/2011 12/30/2016 Acute coronary syndrome ([facility]) 09/15/2009 HTN, goal below 130/80 06/14/2009 2 Overview: Per HTN Taxonomy. Type 2 diabetes mellitus wit h hemoglobin A1c goal of less than 7.0% ([facility]) 03/02/2009 03/27/2011 Overview: Modified per Diabetes protocol #14. ICD-10 update of inactive term EXAMINATION OF PARTICIPANT IN CLINICAL TRIAL-gen omics 11/17/2008 09/01/2009 Overview: Renamed Per Clinical Trials Billing Project. Study Titile: Genomic Markers for Patients with Cardiovascular Disease Project #[id number] PI: Francoise Tomlin MD Please call [phone] with study related questions INTERFACED RESULT 11/17/2008 10/17/2011 GENOMICS CARDIO RESEARCH OTHER*[id number] 200806/25/2016 Overview: Renamed Per Clinical Trials Billing Project. Study Titile: Genomic Markers for Patients with Cardiovascular Disease Project #[id number] PI: Francoise Tomlin MD Please call [phone] with study related questions CLASS I-II ANGINA [...] Comments:quit 30 yrs ago, wh ile in [email or web address] for 4 years Alcohol Use Drinks/Week oz/Week Comments Yes a beer per nigh t Sex Assigned at Date Recorded Not on file as of this encounter Miscellaneous Notes * Addendum Note - Gissell Fuller [facility] - 01/26/2018 3:03 PM EDT Addended by: GISSELL FULLER on: 01/26/2018 03:03 PM Modules accepted: Orders * Telephone Encounter - Gissell Fuller [facility] - 01/26/2018 2:59 PM EDT Spoke with and she would like 90 day supply of isosorbide ER sent to [facility] since it is less expensive this way for them. Resent #90 with 1 refill as requested. Thanks, Gissell Fuller [facility] Staff Pharmacist Refill Call Center [phone] 01/26/2018, 3:01 PM * Telephone Encounter - Sanjana Patel, NERIS - 01/26/2018 2:55 PM EDT Pt's calling regarding the isosorbide refill. Warm transfer to Gissell (pharmacist). Thanks, Corinne Patel [employer] Mixer Helper Pharmacy Refill Call Center 01/26/2018,2:56 PM * [...] tid * Telephone Encounter - Elise Gonzalez LPN - 01/20/2018 1:44 PM EDT Fax from [employer] on pt's Isosorbide [place] [facility]. Short supply from manufacturing. Please try toreorder and see what alternative could be given instead. in this encounter Plan of Treatment Upcoming Encounters Date Type Specialty Care Team Description 03/20/2018 Office Visit Family Medicine Sylvia Rojas MD [address] [place] [address] [phone] 06/17/2018 Office Visit Cardiology Azael Lozano MD [address] [place] [address] [phone] Health Maintenance Due Date Last Done Comments CKD PHOS USE SMARTSET 54170 1953 Zoster Vaccines HMT (1 of 2) 1986 *DEPRESSION SCREENING, EDMUNDO Crawford FOR PTS 18 AND OVER 2014 CKD GFR USE SMARTSET 05533 10/05/201704/07, 10/24/2016, 01/18/2016, Additional history exists DIABETES-FOOT EXAM 10/24/2017 10/24/2016, 0 01/18/2016, 02/20/2015, Additional history exists DIABETES-HGBA1C EVERY 6 MONTHS 10/30/2017 1 07/02/2016, 10/24/2016, 01/18/2016, Additional history exists Influenza Vaccine (FLU shot) (#1) 2017 03/02/2017, 02/16/2013, 03/09/2012, Additional history exists CKD HGB USE SMARTSET 29238 04/07/201804/07, 01/01/2017, 01/18/2016, Additional history exists Yearly B-12 05/01/2018 05/01/2017 COLONOSCOPY-EVERY 5 YRS AGES 18-100 03/20/2021 03/20/2016, 04/30/2010, 02/05/2002 DTaP,Tdap,and Td Vaccines (2 - Td) 07/10/20222012 PNEUMOCOCCAL ADULT 65 YRS AND OVER Completed 2015, 11/20/2004 as of this encounter Implants Not on fileas of this encounter
--- OUTSIDE RECORDS SUMMARY | 2023-02-21 02:53 | External Medical Summary | Summary of Care ---
Author Name Unknown Organization [place] [address] Phone Care Team Providers Care Cap Maker Name Role Phone Sylvia Rojas MD Primary Care Provider [phone] Reason for Visit * Reason Comments eRx-Medication Refill Encounter Details Date Type Department Care Team Description 01/23/2018 Refill Cardiology, [facility] [address] [facility] [place] [address] Cesar Elias PA-C [address] [place] [address] [phone] Aortocoronary bypass status;Acute coronary syndrome (HCC);Chronic coronary artery disease;Enlarged aorta (HCC) Allergies No Known Allergiesas of this encounter Medications Prescription Sig. Disp. Refills Start Date End Date Status ONE TOUCH ULTRA DEVIIndications:DM type 2, not at goal (HCC) check daily 1 0 12/11/2005 Active ONE TOUCH ULTRA CONTROL SOLNIndications:DM type 2, not at goal ([facility]) check daily 1 11 12/11/2005 Active ONE TOUCH ULTRA TEST STRPIndications:DM type 2, not at goal ([facility]) test daily 1 box 11 12/11/2005 Active ONE TOUCH ULTRASOFT LANCETS MISCIndications:DM type 2, not at goal ([facility]) test daily 1 box 11 12/11/2005 Active nitroglycerin (NITROSTAT) 0.4 MG SUBLIndications:Ch ronic coronary artery disease DISSOLVE 1 TABLET UNDER THE TONGUE EVERY 5 MINUTES FOR CHEST PAIN. UP TO 3 DOSES IN 15 MINUTES. 25 Tab 1 05/01/2017 Active RANEXA 1000 MG EX69Prcqxokmhug:Ch est pain,Unstable angina (HCC) TAKE 1 TABLET TWICE A DAY 180 Tab 3 06/17/2017 Active aspirin 81 MG chewable tablet Take 1 Tab by mouth daily. 34 Tab 11 10/28/2017 Active metoprolol succinate XL (TOPROL XL) 25 MG KN88Tkdpzlromzt:Ch ronic coronary artery disease,Aortocoron jovanna bypass status,Dyslipidemi [...] EVERY DAY 100 Tab 1 01/23/2018 Active clopidogrel (PLAVIX) 75 MG TabletIndications: Aortocoronary bypass status,Acute coronary syndrome ([facility]),Chronic coronary artery disease,Enlarged aorta ([facility]) TAKE 1 TABLET BY MOUTH EVERY DAY 100 Tab 1 07/30/2017 01/23/2018 Discontinued as of this encounter Active Problems Problem Noted Date Diabetes mellitus with stage 3 chronic k idney disease ([facility]) 08/26/2017 Overview: Per CKD protocol #1 HTN, goal below 140/90 07/24/2015 Overview: Per HTN Protocol #27. Enlarged aorta ([facility]) 09/15/2009 Overview: Aortic root 4.4 cm 4.29.2009 echo at [facility]. Dyslipidemia, goal LDL below 70 05/01/20 Overview: [...] Overview: Per HTN Protocol #27. Unstable angina ([facility]) 11/23/2011 10/24/2016 Chest pain 11/22/2011 10/24/2016 NSTEMI (non-ST elevated myocardial infarction) ( [facility]) 11/22/2011 12/30/2016 Acute coronary syndrome ([facility]) 09/15/2009 HTN, goal below 130/80 06/14/2009 2 Overview: Per HTN Taxonomy. Type 2 diabetes mellitus wit h hemoglobin A1c goal of less than 7.0% ([facility]) 03/02/2009 03/27/2011 Overview: Modified per Diabetes protocol #14. ICD-10 update of inactive term EXAMINATION OF PARTICIPANT IN CLINICAL TRIAL-gen omics 11/17/2008 09/01/2009 Overview: Renamed Per Clinical Trials Billing Project. Study Titile: Genomic Markers for Patients with Cardiovascular Disease Project #[id number] PI: Francoise Tomlin MD Please call [phone] with study related questions INTERFACED RESULT 11/17/2008 10/17/2011 GENOMICS CARDIO RESEARCH OTHER*[id number] 200806/25/2016 Overview: Renamed Per Clinical Trials Billing Project. Study Titile: Genomic Markers for Patients with Cardiovascular Disease Project #[id number] PI: Francoise Tomlin MD Please call [phone] with study related questions CLASS I-II ANGINA [...] Comments:quit 30 yrs ago, wh ile in [employer] for 4 years Alcohol Use Drinks/Week oz/Week Comments Yes a beer per nigh t Sex Assigned at Date Recorded Not on file as of this encounter Miscellaneous Notes * Telephone Encounter - Sushila Lozano MD - 01/23/2018 10:29 AM EDT Signed Prescriptions: Disp Refills clopidogrel (PLAVIX) 75 MG Tablet 100 Tab1 Sig: TAKE 1 TABLET BY MOUTH EVERY DAY Authorizing Provider: SUSHILA LOZANO * Telephone Encounter - Silvia Beaulieu RN - 01/23/2018 9:56 AM EDT Pending Prescriptions: Disp Refills clopidogrel (PLAVIX) 75 MG Tablet [Pharma*100 Tab1 Sig: TAKE 1 TABLET BY MOUTH EVERY DAY * Telephone Encounter - Elise Ruelas LPN - 01/23/2018 9:39 AM EDT Pending Prescriptions: Disp Refills clopidogrel (PLAVIX) 75 MG Tablet [Pharma*100 Tab1 Sig: TAKE 1 TABLET BY MOUTH EVERY DAY * Telephone Encounter - Elise Ruelas LPN - 01/23/2018 9:38 AM EDT Formatting of this note may be different from the original. Pending Prescriptions: Disp Refills clopidogrel (PLAVIX) 75 MG Tablet [Pharma*100 Tab1 Sig: TAKE 1 TABLET BY MOUTH EVERY DAY Last Office Visit: 10/28/2017 Next Office Visit: 06/17/2018 Scheduled Provider(s): Sushila Lozano MD Last date the medication was ordered: 07/30/17 Patient Active Problem List Diagnosis Code ADVANCE DIRECTIVE INFORMATION BENIGN NEOPLASM LG BOWEL D12.6 Chronic coronary artery disease I25.10 OP CABG X 3 Z09 Aortocoronary bypass status Z95.1 Dyslipidemia, goal LDL below 70 E78.5 Enlarged aorta (HCC) I77.89 S/P angioplasty with stent Z95.9 DM type 2, goal A1C to be determined ([facility]) E11.9 HTN, goal below 140/90 I10 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) E11.22, N18.3 Labs: CREATININE(mg/dL) [facility] Dt/Tm Resulted Value Status 04/07/17 9:52A 04/07/17 1.2 FINAL POTASSIUM(mmol/L) [facility] Dt/Tm Resulted Value Status 04/07/17 9:52A 04/07/17 5.0 FINAL TSH(uIU/mL) [facility] Dt/Tm Resulted Value Status 01/01/17 1:44P 01/01/17 2.81 FINAL LDL (DIRECT MEASURE)(mg/dL) [facility] Dt/Tm Resulted Value Status 10/24/16 11:50A 10/24/16 50 FINAL 02/20/15 3:38P 02/21/15 48 FINAL ALT(U/L) [facility] Dt/Tm Resulted Value Status 10/24/16 11:50A 10/24/16 18 FINAL Hemoglobin AIC Results: HEMOGLOBIN, A1C(%) [facility] Dt/Tm Resulted Value Status 05/01/17 2:43P 05/01/17 7.4* FINAL 10/24/16 11:50A 10/24/16 6.5* FINAL 01/18/16 11:30A 01/18/16 7.0* FINAL in this encounter Plan of Treatment Upcoming Encounters Date Type Specialty Care Team Description 03/20/2018 Office Visit Family Medicine Sylvia Rojas MD [address] [place] [address] [phone] 06/17/2018 Office Visit Cardiology Sushila Lozano MD [address] [place] [address] [phone] Health Maintenance Due Date Last Done Comments CKD PHOS USE SMARTSET 84791 1953 Zoster Vaccines HMT (1 of 2) 1986 *DEPRESSION SCREENING, EDMUNDO Crawford FOR PTS 18 AND OVER 2014 CKD GFR USE SMARTSET 23875 10/05/201704/07, 10/24/2016, 01/18/2016, Additional history exists DIABETES-FOOT EXAM 10/24/2017 10/24/2016, 0 01/18/2016, 02/20/2015, Additional history exists DIABETES-HGBA1C EVERY 6 MONTHS 10/30/2017 1 07/02/2016, 10/24/2016, 01/18/2016, Additional history exists Influenza Vaccine (FLU shot) (#1) 2017 03/02/2017, 02/16/2013, 03/09/2012, Additional history exists CKD HGB USE SMARTSET 64378 04/07/201804/07, 01/01/2017, 01/18/2016, Additional history exists Yearly B-12 05/01/2018 05/01/2017 COLONOSCOPY-EVERY 5 YRS AGES 18-100 03/20/2021 03/20/2016, 04/30/2010, 02/05/2002 DTaP,Tdap,and Td Vaccines (2 - Td) 07/10/20222012 PNEUMOCOCCAL ADULT 65 YRS AND OVER Completed 2015, 11/20/2004 as of this encounter Implants Not on fileas of this encounter Visit Diagnoses Diagnosis Aortocoronary bypass status Postsurgical aortocoronary bypass status Acute coronary syndrome (HCC ) Intermediate coronary syndrome Chronic coronary artery dise ase Coronary atherosclerosis of unspecified type of vessel, [place] or graft Enlarged aorta (HCC) Other specified disorders of arteries and arterioles in this encounter
--- OUTSIDE RECORDS SUMMARY | 2023-02-21 02:53 | External Medical Summary ---
Author Name Unknown Address [address] [place] [address] Phone Organization [id number]:[facility] [place] [address] Laboratory Report Ordering Provider Test Date Status ARI MAHAN 03/20/2018 09:15:00 Final Observation Date Value Abnormality Reference Status Phosphate 03/20/2018 10:04 3.4 2.5-4.8 Fin al Performing Location [place] [id number]
--- OUTSIDE RECORDS SUMMARY | 2023-02-21 02:53 | External Medical Summary | Summary of Care ---
Author Name Unknown Organization [place] [address] Care Team Providers Care Mortgage Loan Specialist Name Role Phone Sylvia Rojas MD Primary Care Provider [phone] Reason for Visit * Reason Comments Medication Refill Encounter Details Date Type Department Care Team Description 04/24/2018 Refill Cardiology, [facility] [address] [facility] [place] [address] Sushila Lozano MD [address] [place] [address] [phone] Chronic coronary artery disease; Aortocoronary bypass status; Dyslipidemia, goal LDL below 70 Allergies No Known Allergiesas of this encounter Medications Medication Sig Dispensed Refills Start Date End Date Status ONE TOUCH ULTRA DEVIIndications:DM type 2, not at goal ([facility]) check daily 1 0 12/11/2005 Active ONE TOUCH ULTRA CONTROL SOLNIndications:DM type 2, not at goal (HCC) check daily 1 11 12/11/2005 Active ONE TOUCH ULTRA TEST STRPIndications:DM type 2, not at goal ([facility]) test daily 1 box 11 12/11/2005 Active ONE TOUCH ULTRASOFT LANCETS MISCIndications:DM type 2, not at goal ([facility]) test daily 1 box 11 12/11/2005 Active nitroglycerin (NITROSTAT) 0.4 MG SUBLIndications:Ch ronic coronary artery disease DISSOLVE 1 TABLET UNDER THE TONGUE EVERY 5 MINUTES FOR CHEST PAIN. UP TO 3 DOSES IN 15 MINUTES. 25 Tab 1 05/01/2017 Active RANEXA 1000 MG [id number]:Ch est pain,Unstable angina (HCC) TAKE 1 TABLET TWICE A DAY 180 Tab 3 06/17/2017 Active aspirin 81 MG chewable tablet Take 1 Tab by mouth daily. 34 Tab 11 10/28/2017 Active amLODIPine (NORVASC) 5 MG TabletIndications: HTN, goal below 130/80 Take 1 Tab by mouth daily. 90 Tab 1 11/04/2017 Active Losartan Potassium-HCTZ 100-12.5 MG per tabletIndications: HTN, goal below 140/90 TAKE 1 TABLET BY MOUTH EVERY DAY 90 Tab 3 12/25/2017 Active metFORMIN (GLUCOPHAGE) 850 MG TabletIndications: DM type 2, goal A1C to be determined ([facility]) Take 1 Tab by mouth 3 times [...] metoprolol succinate XL (TOPROL XL) 25 MG [id number]:Ch ronic coronary artery disease,Aortocoron jovanna bypass status,Dyslipidemi a, goal LDL below 70 2 daily 180 Tab 1 04/24/2018 Active metoprolol succinate XL (TOPROL XL) 25 MG FV83Ksfhyywdiwq:Ch ronic coronary artery disease,Aortocoron jovanna bypass status,Dyslipidemi a, goal LDL below 70 2 daily 180 Tab 1 10/28/2017 04/24/2018 Discontinued as of this encounter Active Problems Problem Noted Date Diabetes mellitus with stage 3 chronic k idney disease 08/26/2017 Overview: Per CKD protocol #1 HTN, goal below 140/90 07/24/2015 Overview: Per HTN Protocol #27. Enlarged aorta 09/15/2009 Overview: Aortic root 4.4 cm 4.29.2009 echo at [facility]. Dyslipidemia, goal LDL below 70 [...] Markers for Patients with Cardiovascular Disease Project #[id number] PI: Francoise Tomlin MD Please call [phone] with study related questions INTERFACED RESULT 11/17/2008 10/17/2011 [employer] CARDIO RESEARCH OTHER*[id number] 200806/25/2016 Overview: Renamed Per Clinical Trials Billing Project. Study Titile: Genomic Markers for Patients with Cardiovascular Disease Project #[id number] PI: Francoise Tomlin MD Please call [phone] with study related questions CLASS I-II ANGINA [...] Comments:quit 30 yrs ago, wh ile in [employer] for 4 years Alcohol Use Drinks/Week oz/Week Comments Yes a beer per nigh t Sex Assigned at Date Recorded Not on file Job Start Date Occupation Industry Not on file Not on file Not on file Travel History Travel Start Travel End as of this encounter Miscellaneous Notes * Telephone Encounter - Sushila Lozano MD - 04/24/2018 10:29 AM EST Signed Prescriptions: Disp Refills metoprolol succinate XL (TOPROL XL) 25 MG *180 Tab1 Si daily Authorizing Provider: SUSHILA LOZANO * Telephone Encounter - Winsome Oliveros LPN - 04/24/2018 10:28 AM EST Pending Prescriptions: Disp Refills metoprolol succinate XL (TOPROL XL) 25 MG*180 Tab1 Si daily Last Office Visit: 10/28/2017 Next Office Visit: [...] goal A1C to be determined ([facility]) E11.9 HTN, goal below 140/90 I10 Diabetes mellitus with stage 3 chronic kidney disease ([facility]) E11.22, N18.3 Labs: CREATININE(mg/dL) Frida Dt/Tm Resulted [...] Encounters Date Type Specialty Care Team Description 05/01/2018 Office Visit Dermatology Christel Cavanaugh MD [address] [place] [address] [phone] 06/17/2018 Office Visit Cardiology Sushila Lozano MD [address] [place] [address] [phone] 09/17/2018 Office Visit Family Medicine Sylvia Rojas MD [address] [place] [address] [phone] Health Maintenance Due Date Last Done Comments *DEPRESSION SCREENING, EDMUNDO Crawford FOR PTS 18 AND OVER 2014 Yearly B-12 05/01/2018 05/01/2017 CKD GFR USE SMARTSET 84017 09/17/201803/20, 04/07/2017, 10/24/2016, Additional history exists DIABETES-HGBA1C EVERY 6 MONTHS 09/17/2018 1 05/20/2017, 05/01/2017, 10/24/2016, Additional history exists CKD HGB USE SMARTSET 28523 03/20/201903/20, 04/07/2017, 01/01/2017, Additional history exists CKD PHOS USE SMARTSET 52712 03/20/2019 03/20/2018 DIABETES-FOOT EXAM 03/20/2019 03/20/2018, 0 10/24/2016, 01/18/2016, Additional history exists COLONOSCOPY-EVERY 5 YRS AGES 18-100 03/20/2021 03/20/2016, 04/30/2010, 02/05/2002 DTaP,Tdap,and Td Vaccines (2 - Td) 07/10/20222012 PNEUMOCOCCAL ADULT 65 YRS AND OVER Completed 2015, 11/20/2004 Influenza Vaccine (FLU shot) Completed , 03/02/2017, 02/16/2013, Additional history exists as of this encounter Implants Not on fileas of this encounter Visit Diagnoses Diagnosis Chronic coronary artery disease Coronary atherosclerosis of unspecified type of vessel, north fork or graft Aortocoronary bypass status Postsurgical aortocoronary bypass status Dyslipidemia, goal LDL below 70 Other and unspecified hyperlipidemia in this encounter Advance Directives Patient has advance care planning documents, and code status on file. For more information, please contact: [place] [address] Latest Code Status on File Code Status Date Activated Date Inactivated Comments Full Code 11/22/2011 11:38 PM 11/25/2011 9:22 PM This o rder reflects the patients wishes and were consensually agreed upon. Discussion of Advance Directives occurred with: Patient/Family Does the patient have a Living Will? Yes, not cu rrently available Does the patient have Health Care Power of Final Operations Technician? Yes, not currently available Full Code [...]
--- OUTSIDE RECORDS SUMMARY | 2023-02-21 02:53 | External Medical Summary ---
Author Name Unknown Address [address] [facility] [place] [address] Phone Organization [id number]:[facility] [address] [facility] [place] [address] Laboratory Report Ordering Provider Test Date Status ARI MAHAN 03/20/2018 09:15:00 Final Observation Date Value Abnormality Reference Status BUN 03/20/2018 10:04 28 Above high normal 6-20 Final Creatinine 03/20/2018 10:04 1.3 Above high normal 0.6- 1.2 Final Performing Location [facility] Stephanie Najera [address] [place] [address]
--- OUTSIDE RECORDS SUMMARY | 2023-02-21 02:53 | External Medical Summary | Summary of Care ---
Author Name Unknown Organization [place] [address] Care Team Providers Care Timber Skidder Name Role Phone Sylvia Rojas MD Primary Care Provider [phone] Reason for Visit * Reason Comments Skin [...] melanoma in situ Sylvia Rojas MD [address] [place] [address] Encounter Details Date Type Department Care Team Description 05/01/2018 Office Visit Dermatology [facility] [address] [place] [address] Christel Cavanaugh MD [address] [place], [place] [id number] Skin tumor* Allergies No Known Allergiesas of this encounter Medications Medication Sig Dispensed Refills Start Date End Date Status ONE TOUCH ULTRA DEVIIndications:DM type 2, not at goal (HCC) check daily 1 0 12/11/2005 Active ONE TOUCH ULTRA CONTROL SOLNIndications:DM type 2, not at goal ([facility]) check daily 1 11 12/11/2005 Active ONE TOUCH ULTRA TEST STRPIndications:DM type 2, not at goal ([facility]) test daily 1 box 11 12/11/2005 Active ONE TOUCH ULTRASOFT LANCETS MISCIndications:DM type 2, not at goal (HCC) test daily 1 box 11 12/11/2005 Active nitroglycerin (NITROSTAT) 0.4 MG SUBLIndications:Chroni c coronary artery disease DISSOLVE 1 TABLET UNDER THE TONGUE EVERY 5 MINUTES FOR CHEST PAIN. UP TO 3 DOSES IN 15 MINUTES. 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 Enlarged aorta 09/15/2009 Overview: Aortic root 4.4 cm 4.29.2009 echo [facility]. Dyslipidemia, goal LDL below 70 05/01/20 09 [...] Markers for Patients with Cardiovascular Disease Project #[id number] PI: Francoise Tomlin MD Please call [phone] with study related questions INTERFACED RESULT 11/17/2008 10/17/2011 [employer] CARDIO RESEARCH OTHER*[id number] 200806/25/2016 Overview: Renamed Per Clinical Trials Billing Project. Study Titile: [employer] Markers for Patients with Cardiovascular Disease Project #[id number] PI: Francoise Tomlin MD Please call [phone] with study related questions CLASS I-II ANGINA [...] Comments:quit 30 yrs ago, wh ile in [employer] for 4 years Alcohol Use Drinks/Week oz/Week [...] about the healing wound, please call at: [place] office or [facility] office in this encounter Progress Notes * [...] coronary artery disease 11/17/2008 Coronary atherosclerosis of cheesh-na coronary artery DM type 2, goal A1c below 7 DM type 2, goal A1C to be determined (HCC) Dyslipidemia, goal LDL below 160 Dyslipidemia, goal LDL below 70 05/01/2009 Per Lipid Taxonomy. Enlarged aorta (HCC) 09/15/2009 Aortic root 4.4 cm 4.29.2009 echo at [facility]. HTN, goal below 130/80 06/14/2009 Per HTN [...] Cardiology Azael Lozano MD [address] [place] [address] [phone] 09/17/2018 Office Visit Family Medicine Sylvia Rojas MD [address] [place] [address] [phone] Scheduled Tests Name Priority Associated Diagnoses Order S chedule SURGICAL PATHOLOGY Routine Skin tumor Ordered: 05/01/2018 Health Maintenance Due Date Last Done Comments *DEPRESSION SCREENING, EDMUNDO [place] FOR PTS 18 AND OVER 2014 Yearly B-12 05/01/2018 05/01/2017 CKD GFR USE SMARTSET 48150 09/17/201803/20, 04/07/2017, 10/24/2016, Additional history exists DIABETES-HGBA1C EVERY 6 MONTHS 09/17/2018 1 05/20/2017, 05/01/2017, 10/24/2016, Additional history exists CKD HGB USE SMARTSET 50305 03/20/201903/20, 04/07/2017, 01/01/2017, Additional history exists CKD PHOS USE SMARTSET 61953 03/20/2019 03/20/2018 DIABETES-FOOT EXAM 03/20/2019 03/20/2018, 0 [...] For more information, please contact: [place] [address] Latest Code Status on File Code Status Date Activated Date Inactivated Comments Full Code 11/22/2011 11:38 PM 11/25/2011 9:22 PM This o rder reflects the patients wishes and were consensually agreed upon. Discussion of Advance Directives occurred with: Patient/Family Does the patient have a Living Will? Yes, not cu rrently available Does the patient have Health Care Power of Product Support Technician? Yes, not currently available Full Code [...]
--- OUTSIDE RECORDS SUMMARY | 2023-02-21 02:53 | External Medical Summary ---
Author Name Unknown Address [facility] [address] [place] [id number] Phone Organization K01:[facility] [address] [place] [id number] Laboratory Report Ordering Provider Test Date Status ARI MAHAN 03/20/2018 09:15:00 Final Observation Date Value Abnormality Reference Status HbA1C 03/20/2018 12:50 7.0 Above high normal 4.0-5 .6 Final Performing Location [place] [address] [address] [facility] [address]
--- OUTSIDE RECORDS SUMMARY | 2023-02-21 02:53 | External Medical Summary | Summary of Care ---
Author Name Unknown Organization [place] [address] Phone Care Team Providers Care Aviation Safety Inspector Name Role Phone Sylvia Rojas MD Primary Care Provider [phone] Reason for Referral * Evaluate & Treat - Unlimited Visits (Within 10 days (routine)) Status Reason Specialty Diagnoses / Procedures Referred By Contact Referred To Contact Pending Review Specialty Services Required Dermatology Diagnoses History of melanoma in situ Sylvia Rojas MD [address] [facility] [address] [place] [address] Reason for Visit * Reason Comments PHYSICAL-EXAM Encounter Details Date Type Department Care Team Description 03/20/2018 Office Visit Family [facility] [address] [address] Sylvia Rojas MD [address] [address] [phone] Preventative health care*;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 Disp. Refills Start Date End Date Status ONE TOUCH ULTRA DEVIIndications:DM type 2, not at goal ([facility]) check daily 1 0 12/11/2005 [...] Tab 1 05/01/2017 Active RANEXA 1000 MG [id number]:Chest pain,Unstable angina (HCC) TAKE 1 TABLET TWICE A DAY 180 Tab 3 06/17/2017 Active aspirin 81 MG chewable tablet Take 1 Tab by mouth daily. 34 Tab 11 10/28/2017 Active metoprolol succinate XL (TOPROL XL) 25 MG [id number]:Chroni c coronary artery disease,Aortocoronary bypass status,Dyslipidemia, goal LDL below 70 2 daily 180 Tab 1 10/28/2017 Active amLODIPine (NORVASC) 5 MG TabletIndications:HTN, goal below 130/80 Take 1 Tab by mouth daily. 90 Tab 1 11/04/2017 Active Losartan Potassium-HCTZ 100-12.5 MG per tabletIndications:HTN, goal below 140/90 TAKE 1 TABLET BY MOUTH EVERY DAY 90 Tab 3 12/25/2017 Active metFORMIN (GLUCOPHAGE) 850 MG TabletIndications:DM type 2, goal A1C to be determined ([facility]) Take 1 Tab by mouth [...] coronary syndrome (HCC),Chronic coronary artery disease,Enlarged aorta ([facility]) TAKE 1 TABLET BY MOUTH EVERY DAY 100 Tab 1 01/23/2018 Active Isosorbide Mononitrate ER 120 MG TB24 Take 1 Tab by mouth daily. In the morning. 90 Tab 1 01/26/2018 Active as of this encounter Active Problems Problem Noted Date Diabetes mellitus with stage 3 chronic k idney disease ([facility]) 08/26/2017 Overview: Per CKD protocol #1 HTN, goal below 140/90 07/24/2015 Overview: Per HTN Protocol #27. Enlarged aorta ([facility]) 09/15/2009 Overview: Aortic root 4.4 cm 4.29.2009 [address] at [facility]. Dyslipidemia, goal LDL below 70 [...] Overview: Per HTN Protocol #27. Unstable angina ([facility]) 11/23/2011 10/24/2016 Chest pain 11/22/2011 10/24/2016 NSTEMI (non-ST elevated myocardial infarction) ( [facility]) 11/22/2011 12/30/2016 Acute coronary syndrome ([facility]) 09/15/2009 HTN, goal below 130/80 06/14/2009 2 Overview: Per HTN Taxonomy. Type 2 diabetes mellitus wit h hemoglobin A1c goal of less than 7.0% ([facility]) 03/02/2009 03/27/2011 Overview: Modified per Diabetes protocol #14. ICD-10 update of inactive term EXAMINATION OF PARTICIPANT IN CLINICAL TRIAL-gen omics 11/17/2008 09/01/2009 Overview: Renamed Per Clinical Trials Billing Project. Study Titile: Genomic Markers for Patients with Cardiovascular Disease Project #[id number] PI: Ricardo Yang MD Please call [phone] with study related questions INTERFACED RESULT 11/17/2008 10/17/2011 GENOMICS CARDIO RESEARCH OTHER*[id number] 200806/25/2016 Overview: Renamed Per Clinical Trials Billing Project. Study Titile: Genomic Markers for Patients with Cardiovascular Disease Project #[id number] PI: Ricardo Yang MD Please call [phone] with study related questions CLASS I-II ANGINA [...] Comments:quit 30 yrs ago, wh ile in [employer] for 4 years Alcohol Use Drinks/Week oz/Week Comments Yes a beer per nigh t Sex Assigned at Date Recorded Not on file as of this encounter Last Filed Vital Signs Vital Sign Reading Time Taken Blood Pressure 136/62 03/20/2018 7:46 AM EDT Pulse 72 03/20/2018 7:46 AM EDT Temperature - - Respiratory Rate - - Oxygen Saturation - - Inhaled Oxygen Concentration - - Weight 70.5 kg (155 lb 7 oz) 03/20/2018 7:46 AM EDT Height 180.3 cm (5' 11") 03/20/2018 7:4 6 AM EDT Body Mass Index 21.68 03/20/2018 7:46 AM EDT in this encounter Instructions * Patient Instructions - Elise Gonzalez LPN - 03/20/2018 7:49 AM EDT Diabetes: Keeping Feet Healthy Inspect your feet [...] calluses yourself. Talk to your doctor or expanded function dental assistant (a doctor who specializes in foot care) [...] the area doesnt appear to be healing. [id number] [employer], [address] [place] [address], [place] [address]. All rights reserved. This information is not intended as a substitute for professional medical care. Always follow your healthcare professional's instructions. in this encounter Progress Notes * Sylvia Rojas MD - 03/20/2018 8:24 AM EDT Formatting of this note may be different from the original. Subjective: Dirk Garcia is a 82 year old male. Chief Complaint Patient presents with PHYSICAL-EXAM HPI: Here for PE PMH: Patient Active Problem List Diagnosis Code ADVANCE DIRECTIVE INFORMATION BENIGN NEOPLASM LG BOWEL D12.6 Chronic coronary artery disease I25.10 OP CABG X 3 Z09 Aortocoronary bypass status Z95.1 Dyslipidemia, goal LDL below 70 E78.5 Enlarged aorta (HCC) I77.89 S/P angioplasty with stent Z95.9 DM type 2, goal A1C to be determined ([facility]) E11.9 HTN, goal below 140/90 I10 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) E11.22, N18.3 Current Outpatient Prescriptions Medication Sig Dispense Refill Isosorbide Mononitrate ER 120 MG TB24 Take 1 Tab by mouth daily. In the morning. 90 Tab 1 clopidogrel (PLAVIX) 75 MG Tablet TAKE 1 TABLET BY MOUTH EVERY DAY 100 Tab 1 isosorbide dinitrate (ISORDIL) 20 MG Tablet Take 1 Tab by mouth 3 times a day. at 8am, 12 noon and 4pm. 90 Tab 5 JANUVIA 100 MG Tablet TAKE 1 TABLET [...] Tab by mouth daily. 34 Tab 11 metoprolol succinate XL (TOPROL XL) 25 MG TB24 2 daily 180 Tab 1 RANEXA 1000 MG TB12 TAKE [...] LANCETS MISC test daily 1 box 11 rosuvastatin (CRESTOR) 20 MG Tablet TAKE 1 TABLET DAILY AT 5 P.M. IN THE AFTERNOON 90 Tab 1 Past Medical History: Diagnosis Date [...] root 4.4 cm 4.29.2009 echo at [facility]. HTN, goal below 130/80 06/14/2009 Per HTN Taxonomy. HTN, goal below 140/90 S/P angioplasty with stent drug eluting 09/15/09 Plavix x 12m Past Surgical History: Procedure Laterality Date CABG, ARTERIAL, SINGLE 11/25/08 CORONARY ARTERY BYPASS GRAFT USING ARTERY 1 GRAFT performed by MAXIMILIANO CASILLAS at [facility] CABG, ARTERY-VEIN, TWO 11/25/08 CORONARY ARTERY BYPASS GRAFT ARTERIAL AND VENOUS 2 GRAFTS performed by MAXIMILIANO CASILLAS at [facility] CATHETERIZE LEFT HEART THRU SKIN Cardiac Catheterization, Left Heart CATHETERIZE LEFT HEART THRU SKIN 11/17/08 LEFT HEART CATH, PERCUTANEOUS performed by DRAKE MALONE at [facility] [place]TER[place] LEFT HEART THRU SKIN 09/15/09 LEFT HEART CATH, PERCUTANEOUS performed by RICARDO YANG at [facility] COLONOSCOPY, W/BIOPSY jan 2002 adenomatous and hyperplastic polyps, next in jan 2005 CORONARY ANGIOGRAPHY W/LEFT HEART CATH 11/25/2011 CORONARY ANGIOGRAPHY W/LEFT HEART CATH performed by Jermaine Leary DO at [facility] DESTRUCTION PREMALIGNANT LESION 1ST about 2001 facial lesion. ENDO,VIDEO ASSIST HARVEST WALE 11/25/08 ENDOSCOPY VIDEO ASSISTED HARVEST VEIN performed by MAXIMILIANO CASILLAS at [facility] REMOVAL OF APPENDIX age 21 Review of patient's allergies indicates: No Known Allergies Family History Problem Relation Age of Onset Stroke Mother age 45, Heart Disorder Father old age, age 83 Neurological Disorder Father Alzheimer Family Status Relation Status Mother at age 38 cva Father at age 81 alzheimer's, [place] Daughter Alive healthy Son Alive healthy Brother at child Social History Substance Use Topics Smoking status: Former Smoker Packs/day: 0.50 Years: 5.00 Types: Cigarettes Quit date: 05/19/1984 Smokeless tobacco: Never Used Comment: quit 30 yrs ago, while in [employer] for 4 years Alcohol use Yes Comment: a beer per night Review of Systems: General: No change in weight, No weakness, No fatigue and No fevers, sweats, or chills Neck: No complaint of lumps in neck, No swollen glands, No recent swelling in thyroid area and No significant pain in neck Respiratory: No cough, sputum, or hemoptysis, No wheezing, No shortness of breath and No recent change in breathing Cardiac: No orthopnea, No paroxysmal nocturnal dyspnea, No edema, No palpitations, No syncope, + chest pain stable with use of ntg about 1/4m, + shortness of breath stable and + dyspnea on exertion stable Gastrointestinal: No dysphagia, No significant heartburn, No significant change in appetite, No nausea, vomiting, diarrhea, or constipation, No hematemesis, No blood in stools or black tarry stools, No abdominal bloating or early satiety and No abdominal pain Urinary: No dysuria, No hematuria, No urinary urgency, No polyuria, No incontinence, No hesitancy, No sensation of incomplete voiding, + urinary frequency and + nocturia about 3 Musculoskeletal: No joint pain or stiffness, No arthritis, No backache, No muscle pains or cramps and No joint swelling Hematologic: No anemia, No easy bruising or abnormal bleeding and No history of transfusion Neurologic: No fainting or blackouts, No seizures, No paralysis or focal weakness, No numbness or tingling, No tremors and No significant problems with memory Skin: No edema, No rash and No itching Psychiatric: No depression, No anxiety and No psychosis Objective: BP 136/62 | Pulse 72 | Ht 5' 11" (1.803m) | Wt 155 lbs 7 oz (70.506kg) | BMI 21.68 kg/m | BSA 1.88 m Physical Exam: General: alert, healthy and no distress Neck: supple, no adenopathy, no bruits, thyroid normal size, non-tender, without nodularity Lymph: no palpable lymphadenopathy Heart: regular rate & rhythm, no murmurs and no gallops Lungs: chest symmetric with normal AP diameter, no chest deformities noted, no chest wall tenderness, lungs clear to auscultation Pulses: radial=2/4, carotid=2/4 w/o bruits, posterior tibial=2/4 Abdomen: abdomen soft, non-tender, normal bowel sounds and no masses or organomegaly Back: No CVA tenderness, no tenderness to percussion or palpation Extremities: no joint deformities, effusion, or inflammation, no edema, no clubbing, no cyanosis Neuro Exam: alert & oriented x 3 with fluent speech, no focal motor/sensory deficits, gait normal, reflexes normal and symmetric Skin: skin color, texture, turgor are normal, no rashes but numerous SK some very atypical in appearance ASSESSMENT/PLAN: E11.9 Dm type 2 nursing care encounter (hcc) (primary encounter diagnosis) Plan: Diabetes foot exam This patient was examined according to current recommendations and standard of care related to preventative examination. Health maintenance indicators were reviewed. Risky behavior exposure was assessed none. Smoking, alcohol, and drug use were evaluated. For patients over 65 risk of falls assessedand prevention of same discussed, per standards of care. Z00.00 Preventative health care (primary encounter diagnosis) E11.9 Dm type 2 nursing care encounter ([facility]) Plan: Diabetes foot exam I25.10 Chronic coronary artery disease E11.22, N18.3 Diabetes mellitus with stage 3 chronic kidney disease ([facility]) E78.5 Dyslipidemia, goal ldl below 70 Plan: Phosphorus Cbc Basic metab panel, bmp Phosphorus Cbc Basic metab panel, bmp Z95.9 S/p angioplasty with stent E11.9 Dm type 2, goal a1c to be determined ([facility]) Plan: Hemoglobin a1c Hemoglobin a1c I10 Htn, goal below 140/90 Z86.008 History of melanoma in situ Plan: Dermatology referral op [id number] Mycode research other*[id number] Plan: Mycode subsequent adult Follow up: Return in about 6 months (around 09/17/2018). Follow up: Return in about 6 months (around 09/17/2018). Syvlia Rojas MD * Elise Gonzalez LPN - 03/20/2018 7:49 AM EDT DM Foot Exam completed today. Provider aware. Elise Gonzalez LPN Socks and Shoes Removed for Annual Diabetic Foot Screening RIGHT FOOT: No Reddened, Cracking, Or Open Areas Noted. RIGHT Dorsalis Pedis Pulse: Palpable RIGHT Posterior Tibial Pulse: Palpable RIGHT Monofilament:Patient reports feeling monofilament pressure on plantar surface of foot LEFT FOOT: No Reddened, Cracking or Open Areas Noted. LEFT Dorsalis Pedis Pulse: Palpable LEFT Posterior Tibial Pulse: Palpable LEFT Monofilament: Patient reports feeling monofilament pressure on plantar surface of foot in this encounter Plan of Treatment Upcoming Encounters Date Type Specialty Care Team Description 05/01/2018 Office Visit Dermatology Christel Cavanaugh MD [address] [place] [address] [phone] 06/17/2018 Office Visit Cardiology Azael Lozano MD [address] [place] [address] [phone] 09/17/2018 Office Visit Family Medicine Sylvia Rojas MD [address] [place] [address] [phone] Pending Results Name Priority Associated Diagnoses Date/Ti me MYCODE SUBSEQUENT ADULT Routine MyCode Research Other*[id number] 03/20/2018 9:15 AM EDT Scheduled Referrals Name Priority Associated Diagnoses Order S chedule DERMATOLOGY REFERRAL OP Within 10 days (routine) History of melanoma in situ Ordered: 03/20/2018 Health Maintenance Due Date Last Done Comments CKD PHOS USE SMARTSET 03453 1954 *DEPRESSION SCREENINGEDMUNDO FOR PTS 18 AND OVER 2014 CKD GFR USE SMARTSET 88488 10/05/201704/07, 10/24/2016, 01/18/2016, Additional history exists DIABETES-FOOT EXAM 10/24/2017 10/24/2016, 0 01/18/2016, 02/20/2015, Additional history exists DIABETES-HGBA1C EVERY 6 MONTHS 10/30/2017 1 07/02/2016, 10/24/2016, 01/18/2016, Additional history exists Influenza Vaccine (FLU shot) (#1) 2017 03/02/2017, 02/16/2013, 03/09/2012, Additional history exists CKD HGB USE SMARTSET 90994 04/07/201804/07, 01/01/2017, 01/18/2016, Additional history exists Yearly B-12 05/01/2018 05/01/2017 COLONOSCOPY-EVERY 5 YRS AGES 18-100 03/20/2021 03/20/2016, 04/30/2010, 02/05/2002 DTaP,Tdap,and Td Vaccines (2 - Td) 07/10/20222012 PNEUMOCOCCAL ADULT 65 YRS AND OVER Completed 2015, 11/20/2004 as of this encounter Implants Not on fileas of this encounter Results * BASIC METAB PANEL, BMP (03/20/2018 9:15 AM) Component Value Ref Range BUN 28(H) 6 - 20 mg/dL CREATININE 1.3(H) Comment: GFR should be used to assess renal function.Plasma/Serum creatinine may not be able to properly reflect renal function in some cases. 0.6 - 1.2 mg/dL E GLOM FILT RATE 49.8(L)Comment:If breezy gurrola is , multiply estimated GFR by 1.159. >60 SODIUM 137 135 - 146 mmol/L POTASSIUM 4.6 3.5 - 5.1 mmol/L CHLORIDE 99 98 - 107 mmol/L CO2 24 22 - 32 mmol/L ANION GAP 14 7 - 15 mmol/L GLUCOSE 260(H) 70 - 120 mg/dL CALCIUM 10.3(H) 8.4 - 10.2 mg/dL Specimen Performing Laborator y [facility] LAB PROCESSING Differential Lab Processing [address] [place] [address] * CBC (03/20/2018 9:15 AM) Component Value Ref Range WBC 6.13 4.00 - 10.80 K/u L RBC 3.61(L) 4.50 - 5.25 M/uL HGB 12.2(L) 14.0 - 16.8 g/dL HCT 35.0(L) 40.0 - 48.4 % MCV 97.0 82.0 - 99.5 fL MCH 33.8 27.0 - 34.0 pg MCHC 34.9 32.0 - 36.0 g/dL RDW 13.0 11.5 - 15.5 % PLATELET COUNT 148 140 - 400 K/uL MPV 9.3 6.6 - 11.1 fL Specimen Performing Laborator y DL WOOD LT PHLEB ROOM [facility] Lt Phleb Room [address] [facility] [place] [address] * PHOSPHORUS (03/20/2018 9:15 AM) Component Value Ref Range PHOSPHORUS 3.4 2.5 - 4.8 mg/dL Specimen Performing Laborator y [facility] LAB PROCESSING [facility] Lab Processing [address] [facility] [place] [address] * HEMOGLOBIN A1C (03/20/2018 9:15 AM) Component Value Ref Range HEMOGLOBIN, A1C 7.0(H) Comment: The use of HbA1c to monitor glycemic status is based on normal hemoglobin and HbA composition. This test should not be used in patients with abnormal hemoglobin that affects the half life of the red blood cell or the in vivo glycation rates. 4.0 - 5.6 % EST AVG GLUCOSE 154(H) <126 Specimen Performing Laborator y [facility] [address] [facility] [address] in this encounter Visit Diagnoses Diagnosis Preventative health care - P rimary Routine general medical examination at a health care facility DM type 2 nursing care encou nter (HCC) Type II or unspecified type diabetes mellitus without mention of complication, not stated as uncontrolled Chronic coronary artery dise ase Coronary atherosclerosis of unspecified type of vessel, wales or graft 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) Type II or unspecified type diabetes mellitus with renal manifestations, not stated as uncontrolled Dyslipidemia, goal LDL below 70 Other and unspecified hyperlipidemia S/P angioplasty with stent Postsurgical percutaneous transluminal coronary angioplasty status DM type 2, goal A1C to be de termined (HCC) Type II or unspecified type diabetes mellitus without mention of complication, not stated as uncontrolled HTN, goal below 140/90 Unspecified essential hypertension History of melanoma in situ Personal history of malignant melanoma of skin MYCODE RESEARCH OTHER*[id number] in this encounter
--- OUTSIDE RECORDS SUMMARY | 2023-02-21 02:53 | External Medical Summary ---
Author Name Unknown Address [address] [facility] [place] [address] Phone Organization K0G:[facility] [address] [facility] [place] [place] [address] Laboratory Report Ordering Provider Test Date Status ARI MAHAN 03/20/2018 09:15:00 Final Observation Date Value Abnormality Reference Status WBC, Total 03/20/2018 09:31 6.13 4.00-10.80 F inal RBC 03/20/2018 09:31 3.61 Below low normal 4.50-5 .25 Final Hemoglobin 03/20/2018 09:31 12.2 Below low normal 14.0- 16.8 Final HCT 03/20/2018 09:31 35.0 Below low normal 40.0-4 8.4 Final MCV 03/20/2018 09:31 97.0 82.0-99.5 Fin al MCH 03/20/2018 09:31 33.8 27.0-34.0 Fin al MCHC 03/20/2018 09:31 34.9 32.0-36.0 Fin al RDW 03/20/2018 09:31 13.0 11.5-15.5 Fin al Platelets 03/20/2018 09:31 148 140-400 Fin al MPV 03/20/2018 09:31 9.3 6.6-11.1 Fin al Performing Location [facility] [address] [facility] [place] [address]
--- OUTSIDE RECORDS SUMMARY | 2023-02-21 02:54 | External Medical Summary | Summary of Care ---
Author Name Unknown Organization [place] [address] Phone Care Team Providers Care Pipeline Controller Name Role Phone Kalli Rojas MD Primary Care Provider Reason for Visit * Reason Comments MEDICATION REFILL Encounter Details Date Type Department Care Team Description 01/02/2018 Refill Family Practice [facility] 132 [facility] [place] [address] Kalli Rojas MD 132 [place] [address] [phone] Allergies No Known Allergiesas of this encounter Medications Prescription Sig. Disp. Refills Start Date End Date Status ONE TOUCH ULTRA DEVIIndications:DM type 2, not at goal ([facility]) check daily 1 0 12/11/2005 Active ONE TOUCH ULTRA CONTROL SOLNIndications:DM type 2, not at goal ([facility]) check daily 1 11 12/11/2005 Active ONE TOUCH ULTRA TEST STRPIndications:DM type 2, not at goal ([facility]) test daily 1 box 11 12/11/2005 Active ONE TOUCH ULTRASOFT LANCETS MISCIndications:DM type 2, not at goal ([facility]) test daily 1 box 11 12/11/2005 Active nitroglycerin (NITROSTAT) 0.4 MG SUBLIndications:Ch ronic coronary artery disease DISSOLVE 1 TABLET UNDER THE TONGUE EVERY 5 MINUTES FOR CHEST PAIN. UP TO 3 DOSES IN 15 MINUTES. 25 Tab 1 05/01/2017 Active RANEXA 1000 MG [id number]:Ch est pain,Unstable angina (HCC) TAKE 1 TABLET TWICE A DAY 180 Tab 3 06/17/2017 Active JANUVIA 100 MG Tablet TAKE 1 TABLET DAILY 90 Tab 1 07/07/2017 Active Isosorbide Mononitrate ER 120 MG TB24 Take 1 Tab by mouth daily. In the morning. 30 Tab 5 07/18/2017 Active clopidogrel (PLAVIX) 75 MG TabletIndications: Aortocoronary bypass status,Acute coronary syndrome (HCC),Chronic coronary artery disease,Enlarged aorta (HCC) TAKE 1 TABLET BY MOUTH EVERY DAY 100 Tab 1 07/30/2017 Active rosuvastatin (CRESTOR) 20 MG TabletIndications: Dyslipidemia, goal LDL below 70,Dyslipidemia, goal LDL below 160,Mixed dyslipidemia TAKE 1 TABLET DAILY AT 5 P.M. IN THE AFTERNOON 90 Tab 1 10/08/2017 Active aspirin 81 MG chewable tablet Take 1 Tab by mouth daily. 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 Enlarged aorta (HCC) 09/15/2009 Overview: Aortic root 4.4 cm 4.29.2009 echo at [facility]. Dyslipidemia, goal LDL below 70 05/01/20 [...] Overview: Per HTN Protocol #27. Unstable angina ([facility]) 11/23/2011 10/24/2016 Chest pain 11/22/2011 10/24/2016 NSTEMI (non-ST elevated myocardial infarction) ( [facility]) 11/22/2011 12/30/2016 Acute coronary syndrome ([facility]) 09/15/2009 HTN, goal below 130/80 06/14/2009 2 Overview: Per HTN Taxonomy. Type 2 diabetes mellitus wit h hemoglobin A1c goal of less than 7.0% ([facility]) 03/02/2009 03/27/2011 Overview: Modified per Diabetes protocol #14. ICD-10 update of inactive term EXAMINATION OF PARTICIPANT IN CLINICAL TRIAL-gen omics 11/17/2008 09/01/2009 Overview: Renamed Per Clinical Trials Billing Project. Study Titile: Genomic Markers for Patients with Cardiovascular Disease Project #[id number] PI: Francoise Tomlin MD Please call [phone] with study related questions INTERFACED RESULT 11/17/2008 10/17/2011 GENOMICS CARDIO RESEARCH OTHER*[id number] 200806/25/2016 Overview: Renamed Per Clinical Trials Billing Project. Study Titile: Genomic Markers for Patients with Cardiovascular Disease Project #[id number] PI: Francoise Tomlin MD Please call [phone] with study related questions CLASS I-II ANGINA [...] Comments:quit 30 yrs ago, wh ile in [employer] for 4 years Alcohol Use Drinks/Week oz/Week Comments [facility] Sex Assigned at Date Recorded Not on file as of this encounter Miscellaneous Notes * Telephone Encounter - Kalli Rojas MD - 01/02/2018 3:09 PM EDT Signed Prescriptions: Disp Refills glimepiride (AMARYL) 4 MG Tablet 180 Tab1 Sig: TAKE 2 TABLETS BY MOUTH DAILY WITH THE FIRST MEAL OF THE DAY FOR DIABETES Authorizing Provider: KALLI ROJAS * Telephone Encounter - Leonila Viera OSA - 01/02/2018 3:07 PM EDT Formatting of this note may be different from the original. Pending Prescriptions: Disp Refills glimepiride (AMARYL) 4 MG Tablet 180 Tab1 Sig: TAKE 2 TABLETS BY MOUTH DAILY WITH THE FIRST MEAL OF THE DAY FOR DIABETES Last Office Visit: 05/01/2017 Next Office Visit: 03/20/2018 Scheduled Provider(s): Kalli Rojas MD If no future appointments scheduled, and last appointment is greater than a year ago, please schedule patient for a follow-up appointment Last date the medication was ordered: 07/18/17 Patient Phone Numbers Labs: Lab Results Component Value Date/Time CREAT 1.2 04/07/2017 09:52 AM POTASSIUM 5.0 04/07/2017 09:52 AM TSH 2.81 01/01/2017 01:44 PM LDLCALC 20 11/23/2011 05:00 AM LDLDIRECT 50 10/24/2016 11:50 AM ALT 18 10/24/2016 11:50 AM HGBA1C 7.4 (H) 05/01/2017 02:43 PM in this encounter Plan of Treatment Upcoming Encounters Date Type Specialty Care Team Description 03/20/2018 Office Visit Family Medicine Kalli Rojas MD [address] [place] [address] [phone] 06/17/2018 Office Visit Cardiology Azael Lozano MD [address] [place] [address] [phone] Health Maintenance Due Date Last Done Comments CKD PHOS USE SMARTSET 20728 1953 *DEPRESSION SCREENING, PAIGEUA Ty FOR PTS 18 AND OVER 2014 CKD GFR USE SMARTSET 77348 10/05/201704/07, 10/24/2016, 01/18/2016, Additional history exists DIABETES-FOOT EXAM 10/24/2017 10/24/2016, 0 01/18/2016, 02/20/2015, Additional history exists DIABETES-LDL EVERY 12 MONTHS 10/24/201712/2016, 02/20/2015, 07/13/2013, Additional history exists DIABETES-HGBA1C EVERY 6 MONTHS 10/30/2017 1 07/02/2016, 10/24/2016, 01/18/2016, Additional history exists Influenza Vaccine (FLU shot) (#1) 2018 03/02/2017, 02/16/2013, 03/09/2012, Additional history exists CKD HGB USE SMARTSET 73935 04/07/201804/07, 01/01/2017, 01/18/2016, Additional history exists Yearly B-12 05/01/2018 05/01/2017 COLONOSCOPY-EVERY 5 YRS AGES 18-100 03/20/2021 03/20/2016, 04/30/2010, 02/05/2002 DTaP,Tdap,and Td Vaccines (2 - Td) 07/10/20222012 PNEUMOCOCCAL ADULT 65 YRS AND OVER Completed 2015, 11/20/2004 as of this encounter Implants Not on fileas of this encounter
--- OUTSIDE RECORDS SUMMARY | 2023-02-21 02:54 | External Medical Summary | Summary of Care ---
Author Name Unknown Organization [place] [address] Phone Care Team Providers Care Geotechnical Laboratory Technician Name Role Phone Caterina Rojas MD Primary Care Provider [phone] Reason for Visit * Reason Comments eRx-Medication Refill Encounter Details Date Type Department Care Team Description 12/25/2017 Refill Cardiology, [facility] 132 [facility] [place] [address] Cesar Elias PA-Adrian [address] [facility] [address] [phone] HTN, goal below 140/90* Allergies No Known Allergiesas of this encounter [...] Tab 1 05/01/2017 Active RANEXA 1000 MG [id number]:Ch est pain,Unstable angina (HCC) TAKE 1 TABLET TWICE A DAY 180 Tab 3 06/17/2017 Active metFORMIN (GLUCOPHAGE) 850 MG TabletIndications: DM type 2, goal A1C to be determined ([facility]) Take 1 Tab by mouth 3 times a day. 90 Tab 5 07/04/2017 Active JANUVIA 100 MG Tablet TAKE 1 TABLET DAILY 90 Tab 1 07/07/2017 Active Isosorbide Mononitrate ER 120 MG TB24 Take 1 Tab by mouth daily. In the morning. 30 Tab 5 07/18/2017 Active glimepiride (AMARYL) 4 MG Tablet TAKE 2 TABLETS BY MOUTH DAILY WITH THE FIRST MEAL OF THE DAY FOR DIABETES 180 Tab 1 07/18/2017 Active clopidogrel (PLAVIX) 75 MG TabletIndications: [...] metoprolol succinate XL (TOPROL XL) 25 MG ZZ45Dojyrthfbgk:Ch ronic coronary artery disease,Aortocoron jovanna bypass status,Dyslipidemi a, goal LDL below 70 2 daily 180 Tab 1 10/28/2017 Active amLODIPine (NORVASC) 5 MG TabletIndications: HTN, goal below 130/80 Take 1 Tab by mouth daily. 90 Tab 1 11/04/2017 Active Losartan Potassium-HCTZ 100-12.5 MG per tabletIndications: HTN, goal below 140/90 TAKE 1 TABLET BY MOUTH EVERY DAY 90 Tab 3 12/25/2017 Active Losartan Potassium-HCTZ (HYZAAR) 100-12.5 MG per tablet Take 1 Tab by mouth daily. 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 Enlarged aorta ([facility]) 09/15/2009 Overview: Aortic root 4.4 cm 4.29.2009 echo at [facility]. Dyslipidemia, goal LDL below 70 05/01/20 [...] HTN Protocol #27. Unstable angina ([facility]) 11/23/2011 10/24/2016 Chest pain 11/22/2011 10/24/2016 NSTEMI (non-ST elevated myocardial infarction) ( [facility]) 11/22/2011 12/30/2016 Acute coronary syndrome ([facility]) 09/15/2009 HTN, goal below 130/80 06/14/2009 2 Overview: Per HTN Taxonomy. Type 2 diabetes mellitus wit h hemoglobin A1c goal of less than 7.0% ([facility]) 03/02/2009 03/27/2011 Overview: Modified per Diabetes protocol #14. ICD-10 update of inactive term EXAMINATION OF PARTICIPANT IN CLINICAL TRIAL-gen omics 11/17/2008 09/01/2009 Overview: Renamed Per Clinical Trials Billing Project. Study Titile: Genomic Markers for Patients with Cardiovascular Disease Project #[id number] PI: Francoise Tomlin MD Please call [phone] with study related questions INTERFACED RESULT 11/17/2008 10/17/2011 GENOMICS CARDIO RESEARCH OTHER*[id number] 200806/25/2016 Overview: Renamed Per Clinical Trials Billing Project. Study Titile: Genomic Markers for Patients with Cardiovascular Disease Project #[id number] PI: Francoise Tomlin MD Please call [phone] with study related questions CLASS I-II ANGINA [...] Comments:quit 30 yrs ago, wh ile in [employer] for 4 years Alcohol Use Drinks/Week oz/Week Comments Yes a beer per [facility] t Sex Assigned at Date Recorded Not on file as of this encounter Miscellaneous Notes * Telephone Encounter - Kota Rowell DO - 12/25/2017 1:02 PM EDT Signed Prescriptions: Disp Refills Losartan Potassium-HCTZ 100-12.5 MG per ta*90 Tab 3 Sig: TAKE 1 TABLET BY MOUTH EVERY DAY Authorizing Provider: KOTA ROWELL * Telephone Encounter - Dayana Gracia RN - 12/25/2017 9:55 AM EDT Pending Prescriptions: Disp Refills Losartan Potassium-HCTZ 100-12.5 MG per t*90 Tab 3 Sig: TAKE 1 TABLET BY MOUTH EVERY DAY * Telephone Encounter - Dayana Gracia RN - 12/25/2017 9:54 AM EDT Formatting of this note may be different from the original. Pending Prescriptions: Disp Refills Losartan Potassium-HCTZ 100-12.5 MG per t*90 Tab 3 Sig: TAKE 1 TABLET BY MOUTH EVERY DAY Last Office Visit: 10/28/2017 Next Office Visit: 06/17/2018 Scheduled Provider(s): Azael Lozano MD Last medication order date: 01/01/17 Have you choosen a preferred pharm?? [facility] Patient Active Problem List Diagnosis Code ADVANCE DIRECTIVE INFORMATION BENIGN NEOPLASM LG BOWEL D12.6 Chronic coronary artery disease I25.10 OP CABG X 3 Z09 Aortocoronary bypass status Z95.1 Dyslipidemia, goal LDL below 70 E78.5 Enlarged aorta ([facility]) I77.89 S/P angioplasty with stent Z95.9 DM type 2, goal A1C to be determined ([facility]) E11.9 HTN, goal below 140/90 I10 Diabetes mellitus with stage 3 chronic kidney disease ([facility]) E11.22, N18.3 Labs: CREATININE(mg/dL) Frida Dt/Tm Resulted Value Status 04/07/17 9:52A 04/07/17 1.2 FINAL POTASSIUM(mmol/L) Frida Dt/Tm Resulted Value Status 04/07/17 9:52A 04/07/17 5.0 FINAL TSH(uIU/mL) Frida Dt/Tm Resulted Value Status 01/01/17 1:44P 01/01/17 2.81 FINAL LDL (DIRECT MEASURE)(mg/dL) Frida Dt/Tm Resulted Value Status 10/24/16 11:50A 10/24/16 50 FINAL 02/20/15 3:38P 02/21/15 48 FINAL ALT(U/L) Frida Dt/Tm Resulted Value Status 10/24/16 11:50A 10/24/16 18 FINAL Hemoglobin AIC Results: HEMOGLOBIN, A1C(%) [facility] Dt/Tm Resulted Value Status 05/01/17 2:43P 05/01/17 7.4* FINAL 10/24/16 11:50A 10/24/16 6.5* FINAL 01/18/16 11:30A 01/18/16 7.0* FINAL * Telephone Encounter - Dahlia Reese LPN - 12/25/2017 7:57 AM EDT Pending Prescriptions: Disp Refills Losartan Potassium-HCTZ 100-12.5 MG per t*90 Tab 3 Sig: TAKE 1 TABLET BY MOUTH EVERY DAY * Telephone Encounter - Dahlia Reese LPN - 12/25/2017 7:56 AM EDT Pending Prescriptions: Disp Refills Losartan Potassium-HCTZ 100-12.5 MG per t*90 Tab 3 Sig: TAKE 1 TABLET BY MOUTH EVERY DAY Last Office Visit: 10/28/2017 Next Office Visit: 06/17/2018 Scheduled Provider(s): Azael Lozano MD Lr 8-16 in this encounter Plan of Treatment Upcoming Encounters Date Type Specialty Care Team Description 03/20/2018 Office Visit Family Medicine Caterina Rojas MD [address] [place] [address] [phone] 06/17/2018 Office Visit Cardiology Azael Lozano MD [address] [place] [address] [phone] Health Maintenance Due Date Last Done Comments CKD PHOS USE SMARTSET 49699 1953 *DEPRESSION SCREENING, EDMUNDO Crawford FOR PTS 18 AND OVER 2014 CKD GFR USE SMARTSET 26586 10/05/201704/07, 10/24/2016, 01/18/2016, Additional history exists DIABETES-FOOT EXAM 10/24/2017 10/24/2016, 0 01/18/2016, 02/20/2015, Additional history exists DIABETES-LDL EVERY 12 MONTHS 10/24/201712/2016, 02/20/2015, 07/13/2013, Additional history exists DIABETES-HGBA1C EVERY 6 MONTHS 10/30/2017 1 07/02/2016, 10/24/2016, 01/18/2016, Additional history exists Influenza Vaccine (FLU shot) (#1) 2018 03/02/2017, 02/16/2013, 03/09/2012, Additional history exists CKD HGB USE SMARTSET 32173 04/07/201804/07, 01/01/2017, 01/18/2016, Additional history exists Yearly B-12 05/01/2018 05/01/2017 COLONOSCOPY-EVERY 5 YRS AGES 18-100 03/20/2021 03/20/2016, 04/30/2010, 02/05/2002 DTaP,Tdap,and Td Vaccines (2 - Td) 07/10/20222012 PNEUMOCOCCAL ADULT 65 YRS AND OVER Completed 2015, 11/20/2004 as of this encounter Implants Not on fileas of this encounter Visit Diagnoses Diagnosis HTN, goal below 140/90 - Maryellen caterina Unspecified essential hypertension in this encounter
--- OUTSIDE RECORDS SUMMARY | 2023-02-21 02:54 | External Medical Summary | Summary of Care ---
Author Name Unknown Organization [place] [address] Phone Care Team Providers Care Market Research Interviewer Name Role Phone Kalli Rojas MD Primary Care Provider [phone] Reason for Visit * Reason Comments MEDICATION REFILL Encounter Details Date Type Department Care Team Description 07/18/2017 Refill Family Practice [facility] [address] [place] [address] Kalli Rojas MD 132 [facility] [place] [address] [phone] Allergies No Known Allergiesas of this encounter Medications Prescription Sig. Disp. Refills Start Date End Date Status ONE TOUCH ULTRA DEVIIndications:DM type 2, not at goal ([facility]) check daily 1 0 12/11/2005 Active ONE TOUCH ULTRA CONTROL SOLNIndications:DM type 2, not at goal ([facility]) check daily 1 11 12/11/2005 Active ONE TOUCH ULTRA TEST STRPIndications:DM type 2, not at goal ([facility]) test daily 1 box 11 12/11/2005 Active ONE TOUCH ULTRASOFT LANCETS MISCIndications:DM type 2, not at goal ([facility]) test daily 1 box 11 12/11/2005 Active Losartan Potassium-HCTZ (HYZAAR) 100-12.5 MG per tablet Take 1 Tab by mouth daily. 90 Tab 3 01/01/2017 Active clopidogrel (PLAVIX) 75 MG TabletIndications: Benign neoplasm of colon,Aortocoronar y bypass status,Acute coronary syndrome ([facility]),Chronic coronary artery disease,Enlarged aorta (HCC),HTN, goal below 130/80,Dyslipidemi a, goal LDL below 70 TAKE 1 TABLET BY MOUTH EVERY DAY 100 Tab 1 01/31/2017 Active rosuvastatin (CRESTOR) 20 MG TabletIndications: Dyslipidemia, goal LDL below 70,Dyslipidemia, goal LDL below 160,Mixed dyslipidemia TAKE 1 TABLET DAILY AT 5 P.M. IN THE AFTERNOON 90 Tab 1 04/09/2017 Active metoprolol succinate XL (TOPROL XL) 25 MG HW82Zmmfsiyvkqg:Ch ronic coronary artery disease,Aortocoron jovanna bypass status,Dyslipidemi a, goal LDL below 70 2 daily 180 Tab 1 04/24/2017 Active nitroglycerin (NITROSTAT) 0.4 MG SUBLIndications:Ch ronic coronary artery disease DISSOLVE 1 TABLET UNDER THE TONGUE EVERY 5 MINUTES FOR CHEST PAIN. UP TO 3 DOSES IN 15 MINUTES. 25 Tab 1 05/01/2017 Active amLODIPine (NORVASC) 5 MG TabletIndications: HTN, goal below 130/80 TAKE 1 TABLET BY MOUTH EVERY DAY 90 Tab 1 05/16/2017 Active RANEXA 1000 MG EQ86Wczasqgkhlt:Ch est pain,Unstable angina (HCC) TAKE 1 TABLET [...] FOR DIABETES 180 Tab 1 07/18/2017 Active glimepiride (AMARYL) 4 MG Tablet TAKE 2 TABLETS BY MOUTH DAILY WITH THE FIRST MEAL OF THE DAY FOR DIABETES 180 Tab 1 01/13/2017 07/18/2017 Discontinued Isosorbide Mononitrate ER 120 MG TB24 TAKE 1 TABLET BY MOUTH EVERY MORNING 30 Tab 5 01/21/2017 07/18/2017 Discontinued as of this encounter Active Problems Problem Noted Date HTN, goal below 140/90 07/24/2015 Overview: Per HTN Protocol #27. Enlarged aorta (HCC) 09/15/2009 Overview: Aortic root 4.4 cm 4.29.2009 echo at [facility]. Dyslipidemia, goal LDL below 70 05/01/20 [...] Overview: Per HTN Protocol #27. Unstable angina ([facility]) 11/23/2011 10/24/2016 Chest pain 11/22/2011 10/24/2016 NSTEMI (non-ST elevated myocardial infarction) ( [facility]) 11/22/2011 12/30/2016 Acute coronary syndrome ([facility]) 09/15/2009 HTN, goal below 130/80 06/14/2009 2 Overview: Per HTN Taxonomy. Type 2 diabetes mellitus wit h hemoglobin A1c goal of less than 7.0% ([facility]) 03/02/2009 03/27/2011 Overview: Modified per Diabetes protocol #14. ICD-10 update of inactive term EXAMINATION OF PARTICIPANT IN CLINICAL TRIAL-gen omics 11/17/2008 09/01/2009 Overview: Renamed Per Clinical Trials Billing Project. Study Titile: Genomic Markers for Patients with Cardiovascular Disease Project #[id number] PI: Francoise Tomlin MD Please call [phone] with study related questions INTERFACED RESULT 11/17/2008 10/17/2011 GENOMICS CARDIO RESEARCH OTHER*[id number] 200806/25/2016 Overview: Renamed Per Clinical Trials Billing Project. Study Titile: Genomic Markers for Patients with Cardiovascular Disease Project #[id number] PI: Francoise Tomlin MD Please call [phone] with study related questions CLASS I-II ANGINA [...] Comments:quit 30 yrs ago, wh ile in [employer] for 4 years Alcohol Use Drinks/Week oz/Week Comments Yes a beer per nigh t Sex Assigned at Date Recorded Not on file as of this encounter Miscellaneous Notes * Telephone Encounter - Kalli Rojas MD - 07/18/2017 1:53 PM EST Signed Prescriptions: Disp Refills Isosorbide Mononitrate ER 120 MG TB24 30 Tab 5 Sig: Take 1 Tab by mouth daily. In the morning. Authorizing Provider: KALLI ROJAS glimepiride (AMARYL) 4 MG Tablet 180 Tab1 Sig: TAKE 2 TABLETS BY MOUTH DAILY WITH THE FIRST MEAL OF THE DAY FOR DIABETES Authorizing Provider: KALLI ROJAS * Telephone Encounter - Anjali Awad, matrix inspector - 07/18/2017 1:29 PM EST Pending Prescriptions: Disp Refills Isosorbide Mononitrate ER 120 MG TB24 30 Tab 5 Sig: Take 1 Tab by mouth daily. In the morning. glimepiride (AMARYL) 4 MG Tablet 180 Tab1 Sig: TAKE 2 TABLETS BY MOUTH DAILY WITH THE FIRST MEAL OF THE DAY FOR DIABETES Last Office Visit: 05/01/2017 Next Office Visit: 10/30/2017 Scheduled Provider(s): Kalli Rojas MD If no future appointments scheduled, and last appointment is greater than a year ago, please schedule patient for a follow-up appointment Last date the medication was ordered:01/21/17, 01/13/17 Phone number(s): [phone] (home) [phone] (work) Labs: CREATININE(mg/dL) Frida Dt/Tm Resulted Value Status 04/07/17 9:52A 04/07/17 1.2 FINAL POTASSIUM(mmol/L) Frida Dt/Tm Resulted Value Status 04/07/17 9:52A 04/07/17 5.0 FINAL TSH(uIU/mL) Frida Dt/Tm Resulted Value Status 01/01/17 1:44P 01/01/17 2.81 FINAL ALT(U/L) Frida Dt/Tm Resulted Value Status 10/24/16 11:50A 10/24/16 18 FINAL LDL (DIRECT MEASURE)(mg/dL) Frida Dt/Tm Resulted Value Status 10/24/16 11:50A 10/24/16 50 FINAL Hemoglobin AIC Results: HEMOGLOBIN, A1C(%) Frida Dt/Tm Resulted Value Status 05/01/17 2:43P 05/01/17 7.4* FINAL 10/24/16 11:50A 10/24/16 6.5* FINAL 01/18/16 11:30A 01/18/16 7.0* FINAL in this encounter Plan of Treatment Upcoming Encounters Date Type Specialty Care Team Description 10/28/2017 Office Visit Cardiology Azael Lozano MD [address] [place] [address] [phone] 10/30/2017 Office Visit Family Practice Kalli Rojas MD [address] [place] [address] [phone] Health Maintenance Due Date Last Done Comments *ADVANCE DIRECTIVE NOT ON FILE 06/09/2014 *DEPRESSION SCREENING, EDMUNDO [place] FOR PTS 18 AND OVER 2014 DIABETES-FOOT EXAM 10/24/2017 10/24/2016, 0 01/18/2016, 02/20/2015, Additional history exists DIABETES-LDL EVERY 12 MONTHS 10/24/201712/2016, 02/20/2015, 07/13/2013, Additional history exists DIABETES-URINE MICROALBUMIN EVERY 12 MONTHS 10/24/2017 10/24/2016, 06/21/2016, 02/20/2015, Additional history exists DIABETES-HGBA1C EVERY 6 MONTHS 10/30/2017 1 07/02/2016, 10/24/2016, 01/18/2016, Additional history exists Yearly B-12 05/01/2018 05/01/2017 COLONOSCOPY-EVERY 5 YRS AGES 18-100 03/20/2021 03/20/2016, 04/30/2010, 02/05/2002 DTaP,Tdap,and Td Vaccines (2 - Td) 07/10/20222012 PNEUMOCOCCAL ADULT 65 YRS AND OVER Completed 2015, 11/20/2004 Influenza Vaccine (FLU shot) Completed , 02/16/2013, 03/09/2012, Additional history exists as of this encounter Implants Not on fileas of this encounter Insurance Payer Benefit Plan / Group Subscriber ID Type Phone Address [employer] VANESSA SANTOYO [id number] 1 as of this encounter
--- OUTSIDE RECORDS SUMMARY | 2023-02-21 02:54 | External Medical Summary | Summary of Care ---
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 Enlarged aorta ([facility]) 09/15/2009 Overview: Aortic root 4.4 cm 4.29.2009 echo at [facility]. Dyslipidemia, goal LDL below 70 05/01/20 [...] Overview: Per HTN Protocol #27. Unstable angina ([facility]) 11/23/2011 10/24/2016 Chest pain 11/22/2011 10/24/2016 NSTEMI (non-ST elevated myocardial infarction) ( [facility]) 11/22/2011 12/30/2016 Acute coronary syndrome ([facility]) 09/15/2009 HTN, goal below 130/80 06/14/2009 2 Overview: Per HTN Taxonomy. Type 2 diabetes mellitus wit h hemoglobin A1c goal of less than 7.0% ([facility]) 03/02/2009 03/27/2011 Overview: Modified per Diabetes protocol #14. ICD-10 update of inactive term EXAMINATION OF PARTICIPANT IN CLINICAL TRIAL-gen omics 11/17/2008 09/01/2009 Overview: Renamed Per Clinical Trials Billing Project. Study Titile: Genomic Markers for Patients with Cardiovascular Disease Project #[id number] PI: Francoise Tomlin MD Please call [phone] with study related questions INTERFACED RESULT 11/17/2008 10/17/2011 GENOMICS CARDIO RESEARCH OTHER*[id number] 200806/25/2016 Overview: Renamed Per Clinical Trials Billing Project. Study Titile: Genomic Markers for Patients with Cardiovascular Disease Project #[id number] PI: Francoise Tomlin MD Please call [phone] with study related questions CLASS I-II ANGINA [...] Comments:quit 30 yrs ago, wh ile in [employer] for 4 years Alcohol Use Drinks/Week oz/Week Comments Yes a beer per contreras alonzo Sex Assigned at Date Recorded Not on file as of this encounter Miscellaneous Notes * Telephone Encounter - Kalli Rojas MD - 01/06/2018 12:50 PM EDT Signed Prescriptions: Disp Refills JANUVIA 100 MG Tablet 90 Tab 3 Sig: TAKE 1 TABLET DAILY Authorizing Provider: KALLI ROJAS * Telephone Encounter - Constance Maier LPN - 01/06/2018 10:51 AM EDT Pending Prescriptions: Disp Refills JANUVIA 100 MG Tablet [Pharmacy Med Name:*90 Tab 3 Sig: TAKE 1 TABLET DAILY * Telephone Encounter - Lilibeth Gary LPN - 01/06/2018 10:49 AM EDT Pending Prescriptions: Disp Refills JANUVIA 100 MG Tablet [Pharmacy Med Name:*90 Tab 3 Sig: TAKE 1 TABLET DAILY * Telephone Encounter - Lilibeth Gary LPN - 01/06/2018 10:48 AM EDT Formatting of this note may be different from the original. 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[facility]) I77.89 S/P angioplasty with stent Z95.9 DM type 2, goal A1C to be determined ([facility]) E11.9 HTN, goal below 140/90 I10 Diabetes mellitus with stage 3 chronic kidney disease ([facility]) E11.22, N18.3 Labs: CREATININE(mg/dL) Frida Dt/Tm [...] Medicine Kalli Rojas MD [address] [place] [address] [phone] 06/17/2018 Office Visit Cardiology Azael Lozano MD [address] [place] [address] [phone] Health Maintenance Due Date Last Done Comments CKD PHOS USE SMARTSET 23365 1954 *DEPRESSION SCREENING, EDMUNDO Crawford FOR PTS 18 AND OVER 2014 CKD GFR USE SMARTSET 21941 10/05/201704/07, 10/24/2016, 01/18/2016, Additional history exists DIABETES-FOOT EXAM 10/24/2017 10/24/2016, 0 01/18/2016, 02/20/2015, Additional history exists DIABETES-LDL EVERY 12 MONTHS 10/24/201712/2016, 02/20/2015, 07/13/2013, Additional history exists DIABETES-HGBA1C EVERY 6 MONTHS 10/30/2017 1 07/02/2016, 10/24/2016, 01/18/2016, Additional history exists Influenza Vaccine (FLU shot) (#1) 2018 03/02/2017, 02/16/2013, 03/09/2012, Additional history exists CKD HGB USE SMARTSET 06866 04/07/201804/07, 01/01/2017, 01/18/2016, Additional history exists Yearly B-12 05/01/2018 05/01/2017 COLONOSCOPY-EVERY 5 YRS AGES 18-100 03/20/2021 03/20/2016, 04/30/2010, 02/05/2002 DTaP,Tdap,and Td Vaccines (2 - Td) 07/10/20222012 PNEUMOCOCCAL ADULT 65 YRS AND OVER Completed 2015, 11/20/2004 as of this encounter Implants Not on fileas of this encounter Visit Diagnoses Diagnosis 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
--- OUTSIDE RECORDS SUMMARY | 2023-02-21 02:54 | External Medical Summary | Summary of Care ---
Author Name Unknown Organization [place] [address] Phone Care Team Providers Care Bone Drier Name Role Phone Sylvia Rojas MD Primary Care Provider Reason for Visit * Reason Comments MEDICATION REFILL Encounter Details Date Type Department Care Team Description 01/20/2018 Telephone Family Practice [facility] [address] [facility] [place] [address] Sylvia Rojas MD [address] [facility] [place] [address] [phone] MEDICATION REFILL Allergies No Known Allergiesas of this encounter Medications Prescription Sig. Disp. Refills Start Date End Date Status ONE TOUCH ULTRA DEVIIndications:DM type 2, not at goal ([facility]) check daily 1 0 12/11/2005 Active [...] Tab 1 05/01/2017 Active RANEXA 1000 MG [id number]:Chest pain,Unstable angina (HCC) TAKE 1 TABLET TWICE A DAY 180 Tab 3 06/17/2017 Active clopidogrel (PLAVIX) 75 MG TabletIndications:Aort ocoronary bypass status,Acute coronary syndrome (HCC),Chronic coronary artery disease,Enlarged aorta (HCC) TAKE 1 TABLET BY MOUTH EVERY DAY 100 Tab 1 07/30/2017 Active aspirin 81 MG chewable tablet Take 1 Tab by mouth daily. 34 Tab 11 10/28/2017 Active metoprolol succinate XL (TOPROL XL) 25 MG [id number]:Chroni c coronary artery disease,Aortocoronary bypass status,Dyslipidemia, goal [...] and 4pm. 90 Tab 5 01/20/2018 Active as of this encounter Active Problems Problem Noted Date 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 Enlarged aorta ([facility]) 09/15/2009 Overview: Aortic root 4.4 cm 4.29.2009 echo at [facility]. Dyslipidemia, goal LDL below 70 05/01/20 09 [...] Overview: Per HTN Protocol #27. Unstable angina ([facility]) 11/23/2011 10/24/2016 Chest pain 11/22/2011 10/24/2016 NSTEMI (non-ST elevated myocardial infarction) ( [facility]) 11/22/2011 12/30/2016 Acute coronary syndrome ([facility]) 09/15/2009 HTN, goal below 130/80 06/14/2009 2 Overview: Per HTN Taxonomy. Type 2 diabetes mellitus wit h hemoglobin A1c goal of less than 7.0% ([facility]) 03/02/2009 03/27/2011 Overview: Modified per Diabetes protocol #14. ICD-10 update of inactive term EXAMINATION OF PARTICIPANT IN CLINICAL TRIAL-gen omics 11/17/2008 09/01/2009 Overview: Renamed Per Clinical Trials Billing Project. Study Titile: Genomic Markers for Patients with Cardiovascular Disease Project #[id number] PI: Francoise Tomlin MD Please call [phone] with study related questions INTERFACED RESULT 11/17/2008 10/17/2011 GENOMICS CARDIO RESEARCH OTHER*[id number] 200806/25/2016 Overview: Renamed Per Clinical Trials Billing Project. Study Titile: Genomic Markers for Patients with Cardiovascular Disease Project #[id number] PI: Francoise Tomlin MD Please call [phone] with study related questions CLASS I-II ANGINA [...] Comments:quit 30 yrs ago, wh ile in [employer] for 4 years Alcohol Use Drinks/Week oz/Week [...] - 01/20/2018 1:44 PM EDT Fax from [employer] on pt's Isosorbide [place] [facility]. Short supply from manufacturing. Please try toreorder and see what alternative could be given instead. in this encounter Plan of Treatment Upcoming Encounters Date Type Specialty Care Team Description 03/20/2018 Office Visit Family Medicine Sylvia Rojas MD [address] [facility] [place] [address] [phone] 06/17/2018 Office Visit Cardiology Azael Lozano MD [address] [place] [address] [phone] Health Maintenance Due Date Last Done Comments CKD PHOS USE SMARTSET 98158 1953 Zoster Vaccines HMT (1 of 2) 1986 *DEPRESSION SCREENING, EDMUNDO Crawford FOR PTS 18 AND OVER 2014 CKD GFR USE SMARTSET 84846 10/05/201704/07, 10/24/2016, 01/18/2016, Additional history exists DIABETES-FOOT EXAM 10/24/2017 10/24/2016, 0 01/18/2016, 02/20/2015, Additional history exists DIABETES-HGBA1C EVERY 6 MONTHS 10/30/2017 1 07/02/2016, 10/24/2016, 01/18/2016, Additional history exists Influenza Vaccine (FLU shot) (#1) 2017 03/02/2017, 02/16/2013, 03/09/2012, Additional history exists CKD HGB USE SMARTSET 59480 04/07/201804/07, 01/01/2017, 01/18/2016, Additional history exists Yearly B-12 05/01/2018 05/01/2017 COLONOSCOPY-EVERY 5 YRS AGES 18-100 03/20/2021 03/20/2016, 04/30/2010, 02/05/2002 DTaP,Tdap,and Td Vaccines (2 - Td) 07/10/20222012 PNEUMOCOCCAL ADULT 65 YRS AND OVER Completed 2015, 11/20/2004 as of this encounter Implants Not on fileas of this encounter
--- OUTSIDE RECORDS SUMMARY | 2023-02-21 02:54 | External Medical Summary | Summary of Care ---
Author Name Unknown Organization [place] [address] Phone Care Team Providers Care Forgeman Helper Name Role Phone Kalli Rojas MD Primary Care Provider [phone] Reason for Visit * Reason Comments MEDICATION REFILL Encounter Details Date Type Department Care Team Description 01/14/[address] [facility] [address] [facility] [place] [address] Kalli Rojas MD [address] [facility] [place] [address] [phone] Dyslipidemia, goal LDL below 70;Dyslipidemia, goal LDL below 160;Mixed dyslipidemia Allergies No Known Allergiesas of this encounter [...] Tab 1 05/01/2017 Active RANEXA 1000 MG [id number]:Chest pain,Unstable angina (HCC) TAKE 1 TABLET TWICE [...] metoprolol succinate XL (TOPROL XL) 25 MG [id number]:Chroni c coronary artery disease,Aortocoronary bypass status,Dyslipidemia, goal [...] be determined ([facility]) Take 1 Tab by mouth 3 times a day. 90 Tab 5 12/30/2017 Active glimepiride (AMARYL) 4 MG Tablet TAKE 2 TABLETS BY MOUTH DAILY WITH THE FIRST MEAL OF THE DAY FOR DIABETES 180 Tab 1 01/02/2018 Active JANUVIA 100 MG TabletIndications:Diab etes mellitus with stage 3 chronic kidney disease (HCC) TAKE 1 TABLET DAILY 90 Tab 3 01/06/2018 Active Isosorbide Mononitrate ER 120 MG TB24 Take 1 Tab by mouth daily. In the morning. 30 Tab 5 01/12/2018 Active rosuvastatin (CRESTOR) 20 MG TabletIndications:Dysl ipidemia, goal LDL below 70,Dyslipidemia, goal LDL below 160,Mixed dyslipidemia TAKE 1 TABLET DAILY AT 5 P.M. IN THE AFTERNOON 90 Tab 1 01/15/2018 Active as of this encounter Active Problems Problem Noted Date 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 Enlarged aorta (HCC) 09/15/2009 Overview: Aortic root 4.4 cm 4.29.2009 echo at [facility]. Dyslipidemia, goal LDL below 70 05/01/20 09 [...] Per HTN Protocol #27. Unstable angina ([facility]) 11/23/2011 10/24/2016 Chest pain 11/22/2011 10/24/2016 NSTEMI (non-ST elevated myocardial infarction) ( [facility]) 11/22/2011 12/30/2016 Acute coronary syndrome ([facility]) 09/15/2009 HTN, goal below 130/80 06/14/2009 2 Overview: Per HTN Taxonomy. Type 2 diabetes mellitus wit h hemoglobin A1c goal of less than 7.0% ([facility]) 03/02/2009 03/27/2011 Overview: Modified per Diabetes protocol #14. ICD-10 update of inactive term EXAMINATION OF PARTICIPANT IN CLINICAL TRIAL-gen omics 11/17/2008 09/01/2009 Overview: Renamed Per Clinical Trials Billing Project. Study Titile: Genomic Markers for Patients with Cardiovascular Disease Project #[id number] PI: Francoise Tomlin MD Please call [phone] with study related questions INTERFACED RESULT 11/17/2008 10/17/2011 GENOMICS CARDIO RESEARCH OTHER*[id number] 200806/25/2016 Overview: Renamed Per Clinical Trials Billing Project. Study Titile: Genomic Markers for Patients with Cardiovascular Disease Project #[id number] PI: Francoise Tomlin MD Please call [phone] with study related questions CLASS I-II ANGINA [...] Comments:quit 30 yrs ago, wh ile in [employer] for 4 years Alcohol Use Drinks/Week oz/Week Comments Yes a beer per nigh t Sex Assigned at Date Recorded Not on file as of this encounter Miscellaneous Notes * Telephone Encounter - Kalli Rojas MD - 01/15/2018 8:53 AM EDT Signed Prescriptions: Disp Refills rosuvastatin (CRESTOR) 20 MG Tablet 90 Tab 1 Sig: TAKE 1 TABLET DAILY AT 5 P.M. IN THE AFTERNOON Authorizing Provider: KALLI ROJAS * Telephone Encounter - Wilbur Moralez [facility] - 01/14/2018 6:58 PM EDT Pending Prescriptions: Disp Refills rosuvastatin (CRESTOR) 20 MG Tablet 90 Tab 1 Sig: TAKE 1 TABLET DAILY AT 5 P.M. IN THE AFTERNOON * Telephone Encounter - Ema Arellano, cooler servicer - 01/14/2018 10:54 AM EDT Formatting of this note may be different from the original. Pending Prescriptions: Disp Refills rosuvastatin (CRESTOR) 20 MG Tablet 90 Tab 1 Sig: TAKE 1 TABLET DAILY AT 5 P.M. IN THE AFTERNOON Last Office Visit: 05/01/2017 Next Office Visit: 03/20/2018 Scheduled Provider(s): Kalli Rojas MD If no future appointments scheduled, and last appointment is greater than a year ago, please schedule patient for a follow-up appointment Last date the medication was ordered: 10/08/17 Patient Phone Numbers Labs: Lab Results Component [...] Medicine Kalli Rojas MD [address] [place] [address] [phone] 06/17/2018 Office Visit Cardiology Azael Lozano MD [address] [place] [address] [phone] Health Maintenance Due Date Last Done Comments CKD PHOS USE SMARTSET 83633 1953 Zoster Vaccines HMT (1 of 2) 1986 *DEPRESSION SCREENINGEDMUNDO FOR PTS 18 AND OVER 2014 CKD GFR USE SMARTSET 97685 10/05/201704/07, 10/24/2016, 01/18/2016, Additional history exists DIABETES-FOOT EXAM 10/24/2017 10/24/2016, 0 01/18/2016, 02/20/2015, Additional history exists DIABETES-LDL EVERY 12 MONTHS 10/24/201712/2016, 02/20/2015, 07/13/2013, Additional history exists DIABETES-HGBA1C EVERY 6 MONTHS 10/30/2017 1 07/02/2016, 10/24/2016, 01/18/2016, Additional history exists *LDL AFTER STARTING A STATIN 01/10/2018 Influenza Vaccine (FLU shot) (#1) 2018 03/02/2017, 02/16/2013, 03/09/2012, Additional history exists CKD HGB USE SMARTSET 32291 04/07/201804/07, 01/01/2017, 01/18/2016, Additional history exists Yearly B-12 05/01/2018 05/01/2017 COLONOSCOPY-EVERY 5 YRS AGES 18-100 03/20/2021 03/20/2016, 04/30/2010, 02/05/2002 DTaP,Tdap,and Td Vaccines (2 - Td) 07/10/20222012 PNEUMOCOCCAL ADULT 65 YRS AND OVER Completed 2015, 11/20/2004 as of this encounter Implants Not on fileas of this encounter Visit Diagnoses Diagnosis Dyslipidemia, goal LDL below 70 Other and unspecified hyperlipidemia Dyslipidemia, goal LDL below 160 Other and unspecified hyperlipidemia Mixed dyslipidemia Mixed hyperlipidemia in this encounter
--- OUTSIDE RECORDS SUMMARY | 2023-02-21 02:54 | External Medical Summary | Summary of Care ---
Author Name Unknown Organization [place] [address] Phone Care Team Providers Care Sewing Trimmer Name Role Phone Kalli Rojas MD Primary Care Provider [phone] Reason for Visit * Reason Comments eRx-Medication Refill Encounter Details Date Type Department Care Team Description 07/07/2017 Refill Family Practice [facility] [address] [place] [address] Kalli Rojas MD [address] [facility] [place] [address] [phone] Allergies No Known Allergiesas of this encounter [...] MISCIndications:DM type 2, not at goal ([facility]) test daily 1 box 11 12/11/2005 Active Losartan Potassium-HCTZ (HYZAAR) 100-12.5 MG per tablet Take 1 Tab by mouth daily. 90 Tab 3 01/01/2017 Active glimepiride (AMARYL) 4 MG Tablet TAKE 2 TABLETS BY MOUTH DAILY WITH THE FIRST MEAL OF THE DAY FOR DIABETES 180 Tab 1 01/13/2017 Active Isosorbide Mononitrate ER 120 MG TB24 TAKE 1 TABLET BY MOUTH EVERY MORNING 30 Tab 5 01/21/2017 Active clopidogrel (PLAVIX) 75 MG TabletIndications: Benign neoplasm of colon,Aortocoronar y bypass status,Acute coronary syndrome (HCC),Chronic coronary artery disease,Enlarged aorta (HCC),HTN, goal below 130/80,Dyslipidemi a, goal LDL below 70 TAKE 1 TABLET BY MOUTH EVERY DAY 100 Tab 1 01/31/2017 Active rosuvastatin (CRESTOR) 20 MG TabletIndications: Dyslipidemia, goal LDL below 70,Dyslipidemia, goal LDL below 160,Mixed dyslipidemia TAKE 1 TABLET DAILY AT 5 P.M. IN THE AFTERNOON 90 Tab 1 04/09/2017 Active metoprolol succinate XL (TOPROL XL) 25 MG [id number]:Ch ronic coronary artery disease,Aortocoron jovanna bypass status,Dyslipidemi [...] Tab 1 05/16/2017 Active RANEXA 1000 MG [id number]:Ch est pain,Unstable angina (HCC) TAKE 1 TABLET TWICE A DAY 180 Tab 3 06/17/2017 Active metFORMIN (GLUCOPHAGE) 850 MG TabletIndications: DM type 2, goal A1C to be determined (HCC) Take 1 Tab by mouth 3 times a day. 90 Tab 5 07/04/2017 Active JANUVIA 100 MG Tablet TAKE 1 TABLET DAILY 90 Tab 1 07/07/2017 Active JANUVIA 100 MG Tablet TAKE 1 TABLET DAILY 90 Tab 3 07/12/2016 07/07/2017 Discontinued as of this encounter Active Problems Problem Noted Date HTN, goal below 140/90 07/24/2015 Overview: Per HTN Protocol #27. Enlarged aorta (HCC) 09/15/2009 Overview: Aortic root 4.4 cm 4.29.2009 echo at [facility]. Dyslipidemia, goal LDL below 70 05/01/20 Overview: [...] Per HTN Protocol #27. Unstable angina ([facility]) 11/23/2011 10/24/2016 Chest pain 11/22/2011 10/24/2016 NSTEMI (non-ST elevated myocardial infarction) ( [facility]) 11/22/2011 12/30/2016 Acute coronary syndrome ([facility]) 09/15/2009 HTN, goal below 130/80 06/14/2009 2 Overview: Per HTN Taxonomy. Type 2 diabetes mellitus wit h hemoglobin A1c goal of less than 7.0% ([facility]) 03/02/2009 03/27/2011 Overview: Modified per Diabetes protocol #14. ICD-10 update of inactive term EXAMINATION OF PARTICIPANT IN CLINICAL TRIAL-gen omics 11/17/2008 09/01/2009 Overview: Renamed Per Clinical Trials Billing Project. Study Titile: Genomic Markers for Patients with Cardiovascular Disease Project #[id number] PI: Francoise Tomlin MD Please call [phone] with study related questions INTERFACED RESULT 11/17/2008 10/17/2011 GENOMICS CARDIO RESEARCH OTHER*[id number] 200806/25/2016 Overview: Renamed Per Clinical Trials Billing Project. Study Titile: Genomic Markers for Patients with Cardiovascular Disease Project #[id number] PI: Francoise Tomlin MD Please call [phone] with study related questions CLASS I-II ANGINA PECTORIS, STABLE 04/26/2002 09/15/2009 Mixed dyslipidemia 04/26/2002 05/01/2009 Overview: Per Lipid Taxonomy. HTN, goal below 140/90 08/23/1998 0 Overview: Per HTN Taxonomy. DM type 2, not at goal ([facility]) 08/23/1998 Overview: Modified per Diabetes protocol #14. [...] Comments:quit 30 yrs ago, wh ile in [employer] for 4 years Alcohol Use Drinks/Week oz/Week Comments Yes a beer per contreras alonzo Sex Assigned at Date Recorded Not on file as of this encounter Miscellaneous Notes * Telephone Encounter - Kalli Rojas MD - 07/07/2017 4:45 PM EST Signed Prescriptions: Disp Refills JANUVIA 100 MG Tablet 90 Tab 1 Sig: TAKE 1 TABLET DAILY Authorizing Provider: KALLI ROJAS * Telephone Encounter - Emma Santana LPN - 07/07/2017 1:55 PM EST Pending Prescriptions: Disp Refills JANUVIA 100 MG Tablet [Pharmacy Med Name:*90 Tab 1 Sig: TAKE 1 TABLET DAILY * Telephone Encounter - Dahlia Reese LPN - 07/07/2017 1:52 PM EST Pending Prescriptions: Disp Refills JANUVIA 100 MG Tablet [Pharmacy Med Name:*90 Tab 1 Sig: TAKE 1 TABLET DAILY * Telephone Encounter - Dahlia ReeseMENA - 07/07/2017 1:52 PM EST Pending Prescriptions: Disp Refills JANUVIA 100 MG Tablet [Pharmacy Med Name:*90 Tab 1 Sig: TAKE 1 TABLET DAILY Last Office Visit: 05/01/2017 Next Office Visit: 10/30/2017 Scheduled Provider(s): Kalli Rojas MD Lr 2-24-17 in this encounter Plan of Treatment Upcoming Encounters Date Type Specialty Care Team Description 10/28/2017 Office Visit Cardiology Azael Lozano MD [address] [place] [address] [phone] 10/30/2017 Office Visit Family Practice Kalli Rojas MD [address] [place] [address] [phone] Health Maintenance Due Date Last Done Comments DTaP,Tdap,and Td Vaccines (2 - Td) 08/07/20122012 *ADVANCE DIRECTIVE NOT ON FILE 06/09/2014 *DEPRESSION [...] YRS AGES 18-100 03/20/2021 03/20/2016, 04/30/2010, 02/05/2002 PNEUMOCOCCAL ADULT 65 YRS AND OVER Completed 2015, 11/20/2004 Influenza Vaccine (FLU shot) Completed , 02/16/2013, 03/09/2012, Additional history exists as of this encounter Implants Not on fileas of this encounter Insurance Payer Benefit Plan / Group Subscriber ID Type Phone Address Raiing VANESSA SANTOYO [id number] 1 as of this encounter
--- OUTSIDE RECORDS SUMMARY | 2023-02-21 02:54 | External Medical Summary | Summary of Care ---
Author Name Unknown Organization [place] [address] Phone Care Team Providers Care Human Resources Leader Name Role Phone Sylvia Rojas MD Primary Care Provider [phone] Reason for Visit * Reason Comments FOLLOW UP Encounter Details Date Type Department Care Team Description 10/28/2017 Office Visit Cardiology, [facility] [address] [facility] [place] [address] Azael Lozano MD 132 [facility] [place] [address] [phone] Chronic coronary artery disease*;Aortocoronary bypass status;Dyslipidemia, goal LDL below 70 Allergies No Known [...] mouth daily. 90 Tab 3 01/01/2017 Active nitroglycerin (NITROSTAT) 0.4 MG SUBLIndications:Ch ronic coronary artery disease DISSOLVE 1 TABLET UNDER THE TONGUE EVERY 5 MINUTES FOR CHEST PAIN. UP TO 3 DOSES IN 15 MINUTES. 25 Tab 1 05/01/2017 Active amLODIPine (NORVASC) 5 MG TabletIndications: HTN, goal below 130/80 TAKE 1 TABLET BY MOUTH EVERY DAY 90 Tab 1 05/16/2017 Active RANEXA 1000 MG MN15Elmtcqphooe:Ch est pain,Unstable angina (HCC) TAKE 1 TABLET [...] metoprolol succinate XL (TOPROL XL) 25 MG UL62Zkizzktmenm:Ch ronic coronary artery disease,Aortocoron jovanna bypass status,Dyslipidemi a, goal LDL below 70 2 daily 180 Tab 1 10/28/2017 Active metoprolol succinate XL (TOPROL XL) 25 MG XR79Erzwrqccvhq:Ch ronic coronary artery disease,Aortocoron jovanna bypass status,Dyslipidemi a, goal LDL below 70 2 daily 180 Tab 1 04/24/2017 10/28/2017 Discontinued as of this encounter Active Problems Problem Noted Date 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 Enlarged aorta ([facility]) 09/15/2009 Overview: Aortic root 4.4 cm 4.29.2009 [...] Overview: Per HTN Protocol #27. Unstable angina ([facility]) 11/23/2011 10/24/2016 Chest pain 11/22/2011 10/24/2016 NSTEMI (non-ST elevated myocardial infarction) ( [facility]) 11/22/2011 12/30/2016 Acute coronary syndrome ([facility]) 09/15/2009 HTN, goal below 130/80 06/14/2009 2 Overview: Per HTN Taxonomy. Type 2 diabetes mellitus wit h hemoglobin A1c goal of less than 7.0% ([facility]) 03/02/2009 03/27/2011 Overview: Modified per Diabetes protocol #14. ICD-10 update of inactive term EXAMINATION OF PARTICIPANT IN CLINICAL TRIAL-gen omics 11/17/2008 09/01/2009 Overview: Renamed Per Clinical Trials Billing Project. Study Titile: Genomic Markers for Patients with Cardiovascular Disease Project #[id number] PI: Francoise Tomlin MD Please call [phone] with study related questions INTERFACED RESULT 11/17/2008 10/17/2011 GENOMICS CARDIO RESEARCH OTHER*[id number] 200806/25/2016 Overview: Renamed Per Clinical Trials Billing Project. Study Titile: Genomic Markers for Patients with Cardiovascular Disease Project #[id number] PI: Francoise Tomlin MD Please call [phone] with study related questions CLASS I-II ANGINA [...] 5 Quit: 05/19 Smokeless Tobacco: Never Used Tobacco Cessation:Counseling Given: Yes Comments:quit 30 yrs ago, while in [employer] for 4 years Alcohol Use Drinks/Week oz/Week Comments Yes a beer per nigh t Sex Assigned at Date Recorded Not on file as of this encounter Last Filed Vital Signs Vital Sign Reading Time Taken Blood Pressure 126/66 10/28/2017 10:26 AM EDT Pulse 60 10/28/2017 10:26 AM EDT Temperature - - Respiratory Rate 16 10/28/2017 10:2 6 AM EDT Oxygen Saturation - - Inhaled Oxygen Concentration - - Weight 70.8 kg (156 lb) 10/28/2017 10:2 6 AM EDT Height - - Body Mass Index 21.76 10/28/2017 10:26 AM EDT in this encounter Progress Notes * Azael Lozano MD - 10/28/2017 10:54 AM EDT See dictated note on 10/28/2017 Azael Lozano MD in this encounter Nursing Notes * Winsome Oliveros LPN - 10/28/2017 10:26 AM EDT Examination Room: 17 Name: Dirk Garcia Date of : (1935). Reason for Visit: follow up Interim Hospitalization(s): denies Problems/Concerns: denies cardiac complaints Chest Pain/SOB: denies My [facility] is a way you can talk to your provider online through e-mail. Would you like to sign up? I can activate it for you? NO in this encounter Plan of Treatment Upcoming Encounters Date Type Specialty Care Team Description 10/30/2017 Office Visit Family Medicine Sylvia Rojas MD [address] [place] [address] 06/17/2018 Office Visit Cardiology Azael Lozano MD [address] [place] [address] [phone] Health Maintenance Due Date Last Done Comments CKD PHOS USE SMARTSET 84577 1953 *DEPRESSION SCREENING, EDMUNDO Crawford FOR PTS 18 AND OVER 2014 CKD GFR USE SMARTSET 98589 10/05/201704/07, 10/24/2016, 01/18/2016, Additional history exists DIABETES-FOOT EXAM 10/24/2017 10/24/2016, 0 01/18/2016, 02/20/2015, Additional history exists DIABETES-LDL EVERY 12 MONTHS 10/24/201712/2016, 02/20/2015, 07/13/2013, Additional history exists DIABETES-URINE MICROALBUMIN EVERY 12 MONTHS 10/24/2017 10/24/2016, 06/21/2016, 02/20/2015, Additional history exists DIABETES-HGBA1C EVERY 6 MONTHS 10/30/2017 1 07/02/2016, 10/24/2016, 01/18/2016, Additional history exists CKD HGB USE SMARTSET 11993 04/07/201804/07, 01/01/2017, 01/18/2016, Additional history exists Yearly B-12 05/01/2018 05/01/2017 COLONOSCOPY-EVERY 5 YRS AGES 18-100 03/20/2021 03/20/2016, 04/30/2010, 02/05/2002 DTaP,Tdap,and Td Vaccines (2 - Td) 07/10/20222012 PNEUMOCOCCAL ADULT 65 YRS AND OVER Completed 2015, 11/20/2004 Influenza Vaccine (FLU shot) Completed , 02/16/2013, 03/09/2012, Additional history exists as of this encounter Implants Not on fileas of this encounter Visit Diagnoses Diagnosis Chronic coronary artery dise ase - Primary Coronary atherosclerosis of unspecified type of vessel, alturas or graft Aortocoronary bypass status Postsurgical aortocoronary bypass status Dyslipidemia, goal LDL below 70 Other and unspecified hyperlipidemia in this encounter
--- OUTSIDE RECORDS SUMMARY | 2023-02-21 02:54 | External Medical Summary | Summary of Care ---
Author Name Unknown Organization [place] [address] Phone Care Team Providers Care Outsole Cementer Machine Name Role Phone Kalli Rojas MD Primary Care Provider [phone] Reason for Visit * Reason Comments MEDICATION REFILL Encounter Details Date Type Department Care Team Description 12/26/2017 Refill Family Practice [facility] 132 [facility] [place] [address] Kalli Rojas MD 132 [facility] [place] [address] [phone] DM type 2, goal A1C to be determined (HCC) Allergies No Known Allergiesas of this [...] Tab 1 05/01/2017 Active RANEXA 1000 MG KV34Oyswlvifchg:Ch est pain,Unstable angina (HCC) TAKE 1 TABLET [...] metoprolol succinate XL (TOPROL XL) 25 MG ZL11Uluvuiwjkpg:Ch ronic coronary artery disease,Aortocoron jovanna bypass status,Dyslipidemi [...] 3 times a day. 90 Tab 5 12/26/2017 Active metFORMIN (GLUCOPHAGE) 850 MG TabletIndications: DM type 2, goal A1C to be determined (HCC) Take 1 Tab by mouth 3 times a day. 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 Enlarged aorta ([facility]) 09/15/2009 Overview: Aortic root 4.4 cm [...] Per HTN Protocol #27. Unstable angina ([facility]) 11/23/2011 10/24/2016 Chest pain 11/22/2011 10/24/2016 NSTEMI (non-ST elevated myocardial infarction) ( [facility]) 11/22/2011 12/30/2016 Acute coronary syndrome ([facility]) 09/15/2009 HTN, goal below 130/80 06/14/2009 2 Overview: Per HTN Taxonomy. Type 2 diabetes mellitus wit h hemoglobin A1c goal of less than 7.0% ([facility]) 03/02/2009 03/27/2011 Overview: Modified per Diabetes protocol #14. ICD-10 update of inactive term EXAMINATION OF PARTICIPANT IN CLINICAL TRIAL-gen omics 11/17/2008 09/01/2009 Overview: Renamed Per Clinical Trials Billing Project. Study Titile: Genomic Markers for Patients with Cardiovascular Disease Project #[id number] PI: Francoise Tomlin MD Please call [phone] with study related questions INTERFACED RESULT 11/17/2008 10/17/2011 GENOMICS CARDIO RESEARCH OTHER*[id number] 200806/25/2016 Overview: Renamed Per Clinical Trials Billing Project. Study Titile: Genomic Markers for Patients with Cardiovascular Disease Project #[id number] PI: Francoise Tomlin MD Please call [phone] with study related questions CLASS I-II ANGINA [...] Comments:quit 30 yrs ago, wh ile in [employer] for 4 years Alcohol Use Drinks/Week oz/Week Comments Yes a beer per contreras t Sex Assigned at Date Recorded Not on file as of this encounter Miscellaneous Notes * Telephone Encounter - Kalli Rojas MD - 12/26/2017 2:38 PM EDT Signed Prescriptions: Disp Refills metFORMIN (GLUCOPHAGE) 850 MG Tablet 90 Tab 5 Sig: Take 1 Tab by mouth 3 times a day. Authorizing Provider: KALLI ROJAS * Telephone Encounter - Leonila Viera OSA - 12/26/2017 1:22 PM EDT Formatting of this note may be different from the original. Pending Prescriptions: Disp Refills metFORMIN (GLUCOPHAGE) 850 MG Tablet 90 Tab 5 Sig: Take 1 Tab by mouth 3 times a day. Last Office Visit: 05/01/2017 Next Office Visit: 03/20/2018 Scheduled Provider(s): Kalli Rojas MD If no future appointments scheduled, and last appointment is greater than a year ago, please schedule patient for a follow-up appointment Last date the medication was ordered: 07/04/17 Patient Phone Numbers Labs: Lab Results Component [...] Medicine Kalli Rojas MD [address] [place] [address] [phone] 06/17/2018 Office Visit Cardiology Azael Lozano MD [address] [place] [address] [phone] Health Maintenance Due Date Last Done Comments CKD PHOS USE SMARTSET 88159 1953 *DEPRESSION SCREENING, PAIGEUA Ty FOR PTS 18 AND OVER 2014 CKD GFR USE SMARTSET 92950 10/05/201704/07, 10/24/2016, 01/18/2016, Additional history exists DIABETES-FOOT EXAM 10/24/2017 10/24/2016, 0 01/18/2016, 02/20/2015, Additional history exists DIABETES-LDL EVERY 12 MONTHS 10/24/201712/2016, 02/20/2015, 07/13/2013, Additional history exists DIABETES-HGBA1C EVERY 6 MONTHS 10/30/2017 1 07/02/2016, 10/24/2016, 01/18/2016, Additional history exists Influenza Vaccine (FLU shot) (#1) 2018 03/02/2017, 02/16/2013, 03/09/2012, Additional history exists CKD HGB USE SMARTSET 52491 04/07/201804/07, 01/01/2017, 01/18/2016, Additional history exists Yearly B-12 05/01/2018 05/01/2017 COLONOSCOPY-EVERY 5 YRS AGES 18-100 03/20/2021 03/20/2016, 04/30/2010, 02/05/2002 DTaP,Tdap,and Td Vaccines (2 - Td) 07/10/20222012 PNEUMOCOCCAL ADULT 65 YRS AND OVER Completed 2015, 11/20/2004 as of this encounter Implants Not on fileas of this encounter Visit Diagnoses Diagnosis DM type 2, goal A1C to be de termined (HCC) Type II or unspecified type diabetes mellitus without mention of complication, not stated as uncontrolled in this encounter
--- OUTSIDE RECORDS SUMMARY | 2023-02-21 02:54 | External Medical Summary | Summary of Care ---
Author Name Unknown Organization [place] [address] Phone Care Team Providers Care Estate Tax Examiner Name Role Phone Kalli Rojas MD Primary Care Provider [phone] Reason for Visit * Reason Comments MEDICATION REFILL Encounter Details Date Type Department Care Team Description 01/12/2018 Refill Family Practice [facility] 132 [facility] [place] [address] Kalli Rojas MD [address] [place] [address] [phone] Allergies No Known Allergiesas of this encounter Medications Prescription Sig. Disp. Refills Start Date End Date Status ONE TOUCH ULTRA DEVIIndications:DM type 2, not at goal ([facility]) check daily 1 0 12/11/2005 Active ONE TOUCH ULTRA CONTROL SOLNIndications:DM type 2, not at goal ([facility]) check daily 1 11 12/11/2005 Active ONE TOUCH ULTRA TEST STRPIndications:DM type 2, not at goal ([facility]) test daily 1 box 11 12/11/2005 Active ONE TOUCH ULTRASOFT LANCETS MISCIndications:DM type 2, not at goal ([facility]) test daily 1 box 11 12/11/2005 Active nitroglycerin (NITROSTAT) 0.4 MG SUBLIndications:Ch ronic coronary artery disease DISSOLVE 1 TABLET UNDER THE TONGUE EVERY 5 MINUTES FOR CHEST PAIN. UP TO 3 DOSES IN 15 MINUTES. 25 Tab 1 05/01/2017 Active RANEXA 1000 MG NY08Ibhzhrrfhug:Ch est pain,Unstable angina (HCC) TAKE 1 TABLET TWICE A DAY 180 Tab 3 06/17/2017 Active clopidogrel (PLAVIX) 75 MG TabletIndications: Aortocoronary bypass status,Acute coronary syndrome (HCC),Chronic coronary artery disease,Enlarged aorta (HCC) TAKE 1 TABLET BY MOUTH EVERY DAY 100 Tab 1 07/30/2017 Active aspirin 81 MG chewable tablet Take 1 Tab by mouth daily. 34 Tab 11 10/28/2017 Active metoprolol succinate XL (TOPROL XL) 25 MG CT71Azabhwojrfn:Ch ronic coronary artery disease,Aortocoron jovanna bypass status,Dyslipidemi [...] A1C to be determined ([facility]) Take 1 Tab by mouth [...] the morning. 30 Tab 5 01/12/2018 Active Isosorbide Mononitrate ER 120 MG TB24 Take 1 Tab by mouth daily. In the morning. 30 Tab 5 07/18/2017 01/12/2018 Discontinued rosuvastatin (CRESTOR) 20 MG TabletIndications: Dyslipidemia, goal LDL below 70,Dyslipidemia, goal LDL below 160,Mixed dyslipidemia TAKE 1 TABLET DAILY AT 5 P.M. 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 Enlarged aorta ([facility]) 09/15/2009 Overview: Aortic root 4.4 cm 4.29.2009 echo at [facility]. Dyslipidemia, goal LDL below 70 [...] Overview: Per HTN Protocol #27. Unstable angina ([facility]) 11/23/2011 10/24/2016 Chest pain 11/22/2011 10/24/2016 NSTEMI (non-ST elevated myocardial infarction) ( [facility]) 11/22/2011 12/30/2016 Acute coronary syndrome ([facility]) 09/15/2009 HTN, goal below 130/80 06/14/2009 2 Overview: Per HTN Taxonomy. Type 2 diabetes mellitus wit h hemoglobin A1c goal of less than 7.0% ([facility]) 03/02/2009 03/27/2011 Overview: Modified per Diabetes protocol #14. ICD-10 update of inactive term EXAMINATION OF PARTICIPANT IN CLINICAL TRIAL-gen omics 11/17/2008 09/01/2009 Overview: Renamed Per Clinical Trials Billing Project. Study Titile: Genomic Markers for Patients with Cardiovascular Disease Project #[id number] PI: Francoise Tomlin MD Please call [phone] with study related questions INTERFACED RESULT 11/17/2008 10/17/2011 GENOMICS CARDIO RESEARCH OTHER*[id number] 200806/25/2016 Overview: Renamed Per Clinical Trials Billing Project. Study Titile: Genomic Markers for Patients with Cardiovascular Disease Project #[id number] PI: Francoise Tolmin MD Please call [phone] with study related questions CLASS I-II ANGINA [...] Comments:quit 30 yrs ago, wh ile in [employer] for 4 years Alcohol Use Drinks/Week oz/Week Comments Yes a beer per nigh t Sex Assigned at Date Recorded Not on file as of this encounter Miscellaneous Notes * Telephone Encounter - Kalli Rojas MD - 01/12/2018 5:00 PM EDT Signed Prescriptions: Disp Refills Isosorbide Mononitrate ER 120 MG TB24 30 Tab 5 Sig: Take 1 Tab by mouth daily. In the morning. Authorizing Provider: KALLI ROJAS * Telephone Encounter - Leonila Viera OSA - 01/12/2018 4:25 PM EDT Formatting of this note may be different from the original. Pending Prescriptions: Disp Refills Isosorbide Mononitrate ER 120 MG TB24 30 Tab 5 Sig: Take 1 Tab by mouth daily. In the morning. Last Office Visit: 05/01/2017 Next Office Visit: [...] Medicine Kalli Rojas MD [address] [place] [address] [phone] 06/17/2018 Office Visit Cardiology Azael Lozano MD [address] [place] [address] [phone] Health Maintenance Due Date Last Done Comments CKD PHOS USE SMARTSET 02654 1953 Zoster Vaccines HMT (1 of 2) 1986 *DEPRESSION SCREENINGEDMUNDO FOR PTS 18 AND OVER 2014 CKD GFR USE SMARTSET 99110 10/05/201704/07, 10/24/2016, 01/18/2016, Additional history exists DIABETES-FOOT EXAM 10/24/2017 10/24/2016, 0 01/18/2016, 02/20/2015, Additional history exists DIABETES-LDL EVERY 12 MONTHS 10/24/201712/2016, 02/20/2015, 07/13/2013, Additional history exists DIABETES-HGBA1C EVERY 6 MONTHS 10/30/2017 1 07/02/2016, 10/24/2016, 01/18/2016, Additional history exists *LDL AFTER STARTING A STATIN 01/10/2018 Influenza Vaccine (FLU shot) (#1) 2018 03/02/2017, 02/16/2013, 03/09/2012, Additional history exists CKD HGB USE SMARTSET 38187 04/07/201804/07, 01/01/2017, 01/18/2016, Additional history exists Yearly B-12 05/01/2018 05/01/2017 COLONOSCOPY-EVERY 5 YRS AGES 18-100 03/20/2021 03/20/2016, 04/30/2010, 02/05/2002 DTaP,Tdap,and Td Vaccines (2 - Td) 07/10/20222012 PNEUMOCOCCAL ADULT 65 YRS AND OVER Completed 2015, 11/20/2004 as of this encounter Implants Not on fileas of this encounter
--- OUTSIDE RECORDS SUMMARY | 2023-02-21 02:54 | External Medical Summary | Summary of Care ---
Author Name Unknown Organization [place] [address] Phone Care Team Providers Care Electrical Assemblies Supervisor Name Role Phone Sylvia Rojas MD Primary Care Provider [phone] Reason for Visit * Reason Comments MEDICATION REFILL Encounter Details Date Type Department Care Team Description 10/08/2017 Refill Cardiology, [facility] [address] [facility] [place] [address] Azael Lozano MD [address] [place] [address] [phone] Dyslipidemia, goal LDL below 70;Dyslipidemia, goal LDL [...] mouth daily. 90 Tab 3 01/01/2017 Active metoprolol succinate XL (TOPROL XL) 25 MG KF50Mzdmbnxaumd:Ch ronic coronary artery disease,Aortocoron jovanna bypass status,Dyslipidemi [...] Tab 1 05/16/2017 Active RANEXA 1000 MG AC26Hareiarpyzz:Ch est pain,Unstable angina (HCC) TAKE 1 TABLET [...] THE AFTERNOON 90 Tab 1 10/08/2017 Active rosuvastatin (CRESTOR) 20 MG TabletIndications: Dyslipidemia, goal LDL below 70,Dyslipidemia, goal LDL below 160,Mixed dyslipidemia TAKE 1 TABLET DAILY AT 5 P.M. IN THE AFTERNOON 90 Tab 1 04/09/2017 10/08/2017 Discontinued as of this encounter Active Problems Problem Noted Date 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 Enlarged aorta (HCC) 09/15/2009 Overview: Aortic root 4.4 cm 4.29.2009 echo at [facility]. Dyslipidemia, goal LDL below 70 05/01/20 [...] HTN Protocol #27. Unstable angina ([facility]) 11/23/2011 10/24/2016 Chest pain 11/22/2011 10/24/2016 NSTEMI (non-ST elevated myocardial infarction) ( [facility]) 11/22/2011 12/30/2016 Acute coronary syndrome ([facility]) 09/15/2009 HTN, goal below 130/80 06/14/2009 2 Overview: Per HTN Taxonomy. Type 2 diabetes mellitus wit h hemoglobin A1c goal of less than 7.0% ([facility]) 03/02/2009 03/27/2011 Overview: Modified per Diabetes protocol #14. ICD-10 update of inactive term EXAMINATION OF PARTICIPANT IN CLINICAL TRIAL-gen omics 11/17/2008 09/01/2009 Overview: Renamed Per Clinical Trials Billing Project. Study Titile: Genomic Markers for Patients with Cardiovascular Disease Project #[id number] PI: Francoise Tomlin MD Please call [phone] with study related questions INTERFACED RESULT 11/17/2008 10/17/2011 GENOMICS CARDIO RESEARCH OTHER*[id number] 200806/25/2016 Overview: Renamed Per Clinical Trials Billing Project. Study Titile: Genomic Markers for Patients with Cardiovascular Disease Project #[id number] PI: Francoise Tomlin MD Please call [phone] with study related questions CLASS I-II ANGINA [...] Comments:quit 30 yrs ago, wh ile in [employer] for 4 years Alcohol Use Drinks/Week oz/Week Comments Yes a beer per contreras alonzo Sex Assigned at Date Recorded Not on file as of this encounter Miscellaneous Notes * Telephone Encounter - Montse Elias PA-C - 10/08/2017 4:26 PM EDT Signed Prescriptions: Disp Refills rosuvastatin (CRESTOR) 20 MG Tablet 90 Tab 1 Sig: TAKE 1 TABLET DAILY AT 5 P.M. IN THE AFTERNOON Authorizing Provider: MONTSE ELIAS * Telephone Encounter - Winsome Oliveros LPN - 10/08/2017 3:39 PM EDT Formatting of this note may be different from the original. Pending Prescriptions: Disp Refills rosuvastatin (CRESTOR) 20 MG Tablet 90 Tab 1 Last Office Visit: 04/07/2017 Next Office Visit: 10/28/2017 Scheduled Provider(s): Azael Lozano MD Last medication order date: 04/09/2017 Patient Active Problem List Diagnosis Code ADVANCE DIRECTIVE INFORMATION BENIGN NEOPLASM LG BOWEL D12.6 Chronic coronary artery disease I25.10 OP CABG X 3 Z09 Aortocoronary bypass status Z95.1 Dyslipidemia, goal LDL below 70 E78.5 Enlarged aorta ([facility]) I77.89 S/P angioplasty with stent Z95.9 DM type 2, goal A1C to be determined ([facility]) E11.9 HTN, goal below 140/90 I10 Diabetes mellitus with stage 3 chronic kidney disease ([facility]) E11.22, N18.3 Labs: CREATININE(mg/dL) Frida [...] Cardiology Azael Lozano MD [address] [place] [address] [phone] 10/30/2017 Office Visit Family Medicine Sylvia Rojas MD [address] [place] [address] [phone] Health Maintenance Due Date Last Done Comments [...]
--- OUTSIDE RECORDS SUMMARY | 2023-02-21 02:54 | External Medical Summary | Summary of Care ---
Author Name Unknown Organization [place] [address] Phone Care Team Providers Care Home Health Cna Name Role Phone Sylvia Rojas MD Primary Care Provider [phone] Reason for Visit * Reason Comments MEDICATION REFILL Encounter Details Date Type Department Care Team Description 11/04/2017 Refill Cardiology, [facility] [address] [facility] [place] [address] Sushila Lozano MD 132 [place] [address] [phone] HTN, goal below 130/80 Allergies No Known [...] Tab 1 05/01/2017 Active RANEXA 1000 MG [id number]:Ch est pain,Unstable angina (HCC) TAKE 1 TABLET [...] metoprolol succinate XL (TOPROL XL) 25 MG KU75Jrvglzpzlag:Ch ronic coronary artery disease,Aortocoron jovanna bypass status,Dyslipidemi a, goal LDL below 70 2 daily 180 Tab 1 10/28/2017 Active amLODIPine (NORVASC) 5 MG TabletIndications: HTN, goal below 130/80 Take 1 Tab by mouth daily. 90 Tab 1 11/04/2017 Active amLODIPine (NORVASC) 5 MG TabletIndications: HTN, goal below 130/80 TAKE 1 TABLET BY MOUTH EVERY DAY 90 Tab 1 05/16/2017 11/04/2017 Discontinued as of this encounter Active Problems [...] Per HTN Protocol #27. Unstable angina ([facility]) 11/23/2011 10/24/2016 Chest pain 11/22/2011 10/24/2016 NSTEMI (non-ST elevated myocardial infarction) ( [facility]) 11/22/2011 12/30/2016 Acute coronary syndrome ([facility]) 09/15/2009 HTN, goal below 130/80 06/14/2009 2 Overview: Per HTN Taxonomy. Type 2 diabetes mellitus wit h hemoglobin A1c goal of less than 7.0% ([facility]) 03/02/2009 03/27/2011 Overview: Modified per Diabetes protocol #14. ICD-10 update of inactive term EXAMINATION OF PARTICIPANT IN CLINICAL TRIAL-gen omics 11/17/2008 09/01/2009 Overview: Renamed Per Clinical Trials Billing Project. Study Titile: Genomic Markers for Patients with Cardiovascular Disease Project #[id number] PI: Francoise Tomlin MD Please call [phone] with study related questions INTERFACED RESULT 11/17/2008 10/17/2011 GENOMICS CARDIO RESEARCH OTHER*[id number] 200806/25/2016 Overview: Renamed Per Clinical Trials Billing Project. Study Titile: Genomic Markers for Patients with Cardiovascular Disease Project #[id number] PI: Francoise Tomlin MD Please call [phone] with study related questions CLASS I-II ANGINA [...] 30 yrs ago, wh ile in [employer] for 4 years Alcohol Use Drinks/Week oz/Week Comments Yes a beer per [facility] t Sex Assigned at Date Recorded Not on file as of this encounter Miscellaneous Notes * Telephone Encounter - Sushila Lozano MD - 11/04/2017 1:31 PM EDT Signed Prescriptions: Disp Refills amLODIPine (NORVASC) 5 MG Tablet 90 Tab 1 Sig: Take 1 Tab by mouth daily. Authorizing Provider: SUSHILA LOZANO * Telephone Encounter - Winsome Oliveros LPN - 11/04/2017 1:25 PM EDT Formatting of this note may be different from the original. Pending Prescriptions: Disp Refills amLODIPine (NORVASC) 5 MG Tablet 90 Tab 1 Sig: Take 1 Tab by mouth daily. 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 S/P angioplasty with stent Z95.9 DM type 2, goal A1C to be determined ([facility]) E11.9 HTN, goal below 140/90 I10 Diabetes mellitus with stage 3 chronic kidney disease ([facility]) E11.22, N18.3 Labs: CREATININE(mg/dL) Frida [...] Encounters Date Type Specialty Care Team Description 12/26/2017 Office Visit Family Medicine Sylvia Rojas MD [address] [place] [address] [phone] 06/17/2018 Office Visit Cardiology Sushila Lozano MD [address] [place] [address] [phone] Health Maintenance Due Date Last Done Comments CKD PHOS USE SMARTSET 42497 1954 *DEPRESSION SCREENING, EDMUNDO Crawford FOR PTS 18 AND OVER 2014 CKD GFR USE SMARTSET 25237 10/05/201704/07, 10/24/2016, 01/18/2016, Additional history exists DIABETES-FOOT EXAM 10/24/2017 10/24/2016, 0 01/18/2016, 02/20/2015, Additional history exists DIABETES-LDL EVERY 12 MONTHS 10/24/201712/2016, 02/20/2015, 07/13/2013, Additional history exists DIABETES-URINE MICROALBUMIN EVERY 12 MONTHS 10/24/2017 10/24/2016, 06/21/2016, 02/20/2015, Additional history exists DIABETES-HGBA1C EVERY 6 MONTHS 10/30/2017 1 07/02/2016, 10/24/2016, 01/18/2016, Additional history exists CKD HGB USE SMARTSET 88995 04/07/201804/07, 01/01/2017, 01/18/2016, Additional history exists Yearly [...]
--- OUTSIDE RECORDS SUMMARY | 2023-02-21 02:54 | External Medical Summary | Summary of Care ---
Author Name Unknown Organization [place] [address] Phone Care Team Providers Care Scale Assembly Set Up Worker Name Role Phone Kalli Rojas MD Primary Care Provider [phone] Reason for Visit * Reason Comments MEDICATION REFILL Encounter Details Date Type Department Care Team Description 01/16/2018 Refill Family Practice [facility] [address] [facility] [place] [address] Kalli Rojas MD 132 [facility] [place] [address] [phone] Allergies No Known Allergiesas of this encounter Medications Prescription Sig. Disp. Refills Start Date End Date Status ONE TOUCH ULTRA DEVIIndications:DM type 2, not at goal ([facility]) check daily 1 0 12/11/2005 Active ONE TOUCH ULTRA CONTROL SOLNIndications:DM type 2, not at goal ([facility]) check daily 1 11 12/11/2005 Active ONE TOUCH ULTRA TEST STRPIndications:DM type 2, not at goal ([facility]) test daily 1 box 11 12/11/2005 Active ONE TOUCH ULTRASOFT LANCETS MISCIndications:DM type 2, not at goal ([facility]) test daily 1 box 11 12/11/2005 Active nitroglycerin (NITROSTAT) 0.4 MG SUBLIndications:Ch ronic coronary artery disease DISSOLVE 1 TABLET UNDER THE TONGUE EVERY 5 MINUTES FOR CHEST PAIN. UP TO 3 DOSES IN 15 MINUTES. 25 Tab 1 05/01/2017 Active RANEXA 1000 MG SS69Djtlesxujtl:Ch est pain,Unstable angina (HCC) TAKE 1 TABLET [...] metoprolol succinate XL (TOPROL XL) 25 MG IY38Ppkhvwjpfmj:Ch ronic coronary artery disease,Aortocoron jovanna bypass status,Dyslipidemi [...] goal A1C to be determined ([facility]) Take 1 Tab by mouth 3 [...] the morning. 30 Tab 5 01/16/2018 Active Isosorbide Mononitrate ER 120 MG TB24 Take 1 Tab by mouth daily. In the morning. 30 Tab 5 01/12/2018 01/16/2018 Discontinued as of this encounter Active Problems Problem Noted Date 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 Enlarged aorta ([facility]) 09/15/2009 Overview: Aortic root 4.4 cm 4.29.2009 echo at [facility]. Dyslipidemia, goal LDL below 70 05/01/20 [...] Overview: Per HTN Protocol #27. Unstable angina ([facility]) 11/23/2011 10/24/2016 Chest pain 11/22/2011 10/24/2016 NSTEMI (non-ST elevated myocardial infarction) ( [facility]) 11/22/2011 12/30/2016 Acute coronary syndrome ([facility]) 09/15/2009 HTN, goal below 130/80 06/14/2009 2 Overview: Per HTN Taxonomy. Type 2 diabetes mellitus wit h hemoglobin A1c goal of less than 7.0% ([facility]) 03/02/2009 03/27/2011 Overview: Modified per Diabetes protocol #14. ICD-10 update of inactive term EXAMINATION OF PARTICIPANT IN CLINICAL TRIAL-gen omics 11/17/2008 09/01/2009 Overview: Renamed Per Clinical Trials Billing Project. Study Titile: Genomic Markers for Patients with Cardiovascular Disease Project #[id number] PI: Francoise Tomlin MD Please call [phone] with study related questions INTERFACED RESULT 11/17/2008 10/17/2011 GENOMICS CARDIO RESEARCH OTHER*[id number] 200806/25/2016 Overview: Renamed Per Clinical Trials Billing Project. Study Titile: Genomic Markers for Patients with Cardiovascular Disease Project #[id number] PI: Francoise Tomlin MD Please call [phone] with study related questions CLASS I-II ANGINA [...] Comments:quit 30 yrs ago, wh ile in [employer] for 4 years Alcohol Use Drinks/Week oz/Week Comments Yes a beer per [facility] t Sex Assigned at Date Recorded Not on file as of this encounter Miscellaneous Notes * Telephone Encounter - Kalli Rojas MD - 01/16/2018 4:20 PM EDT Signed Prescriptions: Disp Refills Isosorbide Mononitrate ER 120 MG TB24 30 Tab 5 Sig: Take 1 Tab by mouth daily. In the morning. Authorizing Provider: KALLI ROJAS * Telephone Encounter - Leny Estrada, correction officer reformatory - 01/16/2018 3:31 PM EDT Pt called to state [facility] Advised [facility] , that message was initiated through the office. Pt verbalized understanding. Thank You, Leny Estrada [facility] Sales Department Manager Refill Call Center 01/16/2018, 3:32 PM * Telephone Encounter - Leonila Viera Jacobo, NERIS - 01/16/2018 2:35 PM EDT Formatting of this note may be different from the original. Needs sent to sylvia Pending Prescriptions: Disp Refills Isosorbide Mononitrate ER 120 MG TB24 30 Tab 5 Sig: Take 1 Tab by mouth daily. In the morning. Last Office Visit: 05/01/2017 Next Office Visit: 03/20/2018 Scheduled Provider(s): Kalli Rojas MD If no future appointments scheduled, and last appointment is greater than a year ago, please schedule patient for a follow-up appointment Last date the medication was ordered: 01/12/18 Patient Phone Numbers Labs: Lab Results Component [...] Medicine Kalli Rojas MD [address] [place] [address] [phone] 06/17/2018 Office Visit Cardiology Azael Lozano MD [address] [place] [address] [phone] Health Maintenance Due Date Last Done Comments CKD PHOS USE SMARTSET 54440 1953 Zoster Vaccines HMT (1 of 2) 1986 *DEPRESSION SCREENINGEDMUNDO FOR PTS 18 AND OVER 2014 CKD GFR USE SMARTSET 13584 10/05/201704/07, 10/24/2016, 01/18/2016, Additional history exists DIABETES-FOOT EXAM 10/24/2017 10/24/2016, 0 01/18/2016, 02/20/2015, Additional history exists DIABETES-LDL EVERY 12 MONTHS 10/24/201712/2016, 02/20/2015, 07/13/2013, Additional history exists DIABETES-HGBA1C EVERY 6 MONTHS 10/30/2017 1 07/02/2016, 10/24/2016, 01/18/2016, Additional history exists *LDL AFTER STARTING A STATIN 01/10/2018 Influenza Vaccine (FLU shot) (#1) 2018 03/02/2017, 02/16/2013, 03/09/2012, Additional history exists CKD HGB USE SMARTSET 57502 04/07/201804/07, 01/01/2017, 01/18/2016, Additional history exists Yearly B-12 05/01/2018 05/01/2017 COLONOSCOPY-EVERY 5 YRS AGES 18-100 03/20/2021 03/20/2016, 04/30/2010, 02/05/2002 DTaP,Tdap,and Td Vaccines (2 - Td) 07/10/20222012 PNEUMOCOCCAL ADULT 65 YRS AND OVER Completed 2015, 11/20/2004 as of this encounter Implants Not on fileas of this encounter
--- OUTSIDE RECORDS SUMMARY | 2023-02-21 02:54 | External Medical Summary | Summary of Care ---
Author Name Unknown Organization [place] [address] Phone Care Team Providers Care Snagger Name Role Phone Sylvia Rojas MD Primary Care Provider [phone] Encounter Details Date Type Department Care Team Description 01/23/2018 Orders Only Outcomes Research Department [address] [place] [address] Cesar Elias PA-Adrian 132 [place] [address] [employer] Other*[id number] Allergies No Known Allergiesas of this encounter Medications Prescription Sig. Disp. Refills Start Date End Date Status ONE TOUCH ULTRA DEVIIndications:DM type 2, not at goal ([facility]) check daily 1 0 12/11/2005 Active ONE TOUCH ULTRA CONTROL SOLNIndications:DM type 2, not at goal ([facility]) check daily 1 11 12/11/2005 Active ONE TOUCH ULTRA TEST STRPIndications:DM type 2, not at goal ([facility]) test daily 1 box 11 12/11/2005 Active ONE TOUCH ULTRASOFT LANCETS MISCIndications:DM type 2, not at goal ([facility]) test daily 1 box 11 12/11/2005 Active nitroglycerin (NITROSTAT) 0.4 MG SUBLIndications:Chroni c coronary artery disease DISSOLVE 1 TABLET UNDER THE TONGUE EVERY 5 MINUTES FOR CHEST PAIN. UP TO 3 DOSES IN 15 MINUTES. 25 Tab 1 05/01/2017 Active RANEXA 1000 MG GE12Mcfckwbwhgm:Chest pain,Unstable angina (HCC) TAKE 1 TABLET TWICE [...] metoprolol succinate XL (TOPROL XL) 25 MG JA80Zjmrkdwbrub:Chroni c coronary artery disease,Aortocoronary bypass status,Dyslipidemia, goal [...] goal A1C to be determined ([facility]) Take 1 Tab by mouth 3 times [...] HTN Protocol #27. Enlarged aorta ([facility]) 09/15/2009 Overview: Aortic root 4.4 cm 4.29.[address] [facility]. Dyslipidemia, goal LDL below [...] HTN Protocol #27. Unstable angina ([facility]) 11/23/2011 10/24/2016 Chest pain 11/22/2011 10/24/2016 NSTEMI (non-ST elevated myocardial infarction) ( [facility]) 11/22/2011 12/30/2016 Acute coronary syndrome ([facility]) 09/15/2009 HTN, goal below 130/80 06/14/2009 2 Overview: Per HTN Taxonomy. Type 2 diabetes mellitus wit h hemoglobin A1c goal of less than 7.0% ([facility]) 03/02/2009 03/27/2011 Overview: Modified per Diabetes protocol #14. ICD-10 update of inactive term EXAMINATION OF PARTICIPANT IN CLINICAL TRIAL-gen omics 11/17/2008 09/01/2009 Overview: Renamed Per Clinical Trials Billing Project. Study Titile: Genomic Markers for Patients with Cardiovascular Disease Project #[id number] PI: Francoise Tomlin MD Please call [phone] with study related questions INTERFACED RESULT 11/17/2008 10/17/2011 GENOMICS CARDIO RESEARCH OTHER*[id number] 200806/25/2016 Overview: Renamed Per Clinical Trials Billing Project. Study Titile: Genomic Markers for Patients with Cardiovascular Disease Project #[id number] PI: Francoise Tomlin MD Please call [phone] with study related questions CLASS I-II ANGINA [...] Not on file as of this encounter Plan of Treatment Upcoming Encounters Date Type Specialty Care Team Description 03/20/2018 Office Visit Family Medicine Sylvia Rojas MD [address] [place] [address] [phone] 06/17/2018 Office Visit Cardiology Azael Lozano MD [address] [address] [phone] Scheduled Tests Name Priority Associated Diagnoses Order S chedule MYCODE SUBSEQUENT ADULT Routine MyCode Research Other*[id number] Every 6 Months for 2 Occurrences starting 01/23/2018 until 02/12/2019 Health Maintenance Due Date Last Done Comments CKD PHOS USE SMARTSET 41628 1953 Zoster Vaccines HMT (1 of 2) 1986 *DEPRESSION SCREENING, PAIGEUA Ty FOR PTS 18 AND OVER 2014 CKD GFR USE SMARTSET 91968 10/05/2017 11/20 /2017, 10/24/2016, 01/18/2016, Additional history exists DIABETES-FOOT EXAM 10/24/2017 10/24/2016, 0 01/18/2016, 02/20/2015, Additional history exists DIABETES-HGBA1C EVERY 6 MONTHS 10/30/2017 1 07/02/2016, 10/24/2016, 01/18/2016, Additional history exists Influenza Vaccine (FLU shot) (#1) 2017 03/02/2017, 02/16/2013, 03/09/2012, Additional history exists CKD HGB USE SMARTSET 07707 04/07/201804/07, 01/01/2017, 01/18/2016, Additional history exists Yearly B-12 05/01/2018 05/01/2017 COLONOSCOPY-EVERY 5 YRS AGES 18-100 03/20/2021 03/20/2016, 04/30/2010, 02/05/2002 DTaP,Tdap,and Td Vaccines (2 - Td) 07/10/20222012 PNEUMOCOCCAL ADULT 65 YRS AND OVER Completed 2015, 11/20/2004 as of this encounter Implants Not on fileas of this encounter Visit Diagnoses Diagnosis MYCODE RESEARCH OTHER*[id number] in this encounter
--- OUTSIDE RECORDS SUMMARY | 2023-02-21 02:54 | External Medical Summary | Summary of Care ---
Author Name Unknown Organization [place] [address] Phone Care Team Providers Care Caseworker Name Role Phone Kalli Rojas MD Primary Care Provider [phone] Reason for Visit * Reason Comments MEDICATION REFILL Encounter Details Date Type Department Care Team Description 12/29/2017 Refill Family Practice [facility] [address] [facility] [place] [address] Kalli Rojas MD [address] [facility] [place] [address] [phone] DM type 2, goal A1C to be [...] Tab 1 05/01/2017 Active RANEXA 1000 MG VR47Lauamaxmdxs:Chest pain,Unstable angina (HCC) TAKE 1 TABLET TWICE [...] 1 07/18/2017 Active clopidogrel (PLAVIX) 75 MG TabletIndications:Aort ocoronary bypass status,Acute coronary syndrome (HCC),Chronic coronary artery disease,Enlarged aorta (HCC) TAKE 1 TABLET BY MOUTH EVERY DAY 100 Tab 1 07/30/2017 Active rosuvastatin (CRESTOR) 20 MG TabletIndications:Dysl ipidemia, goal LDL below 70,Dyslipidemia, goal LDL below 160,Mixed dyslipidemia TAKE 1 TABLET DAILY AT 5 P.M. IN THE AFTERNOON 90 Tab 1 10/08/2017 Active aspirin 81 MG chewable tablet Take 1 Tab by mouth daily. 34 Tab 11 10/28/2017 Active metoprolol succinate XL (TOPROL XL) 25 MG YD61Axovfzczspw:Chroni c coronary artery disease,Aortocoronary bypass status,Dyslipidemia, goal [...] a day. 90 Tab 5 12/30/2017 Active as of this encounter Active Problems Problem Noted Date 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 Enlarged aorta (HCC) 09/15/2009 Overview: Aortic root 4.4 cm 4.29.2009 echo at [facility]. Dyslipidemia, goal LDL below 70 05/01/20 [...] Markers for Patients with Cardiovascular Disease Project #[id number] PI: Francoise Tomlin MD Please call [phone] with study related questions INTERFACED RESULT 11/17/2008 10/17/2011 GENOMICS CARDIO RESEARCH OTHER*[id number] 200806/25/2016 Overview: Renamed Per Clinical Trials Billing Project. Study Titile: Genomic Markers for Patients with Cardiovascular Disease Project #[id number] PI: Francoise Tomlin MD Please call [phone] with study related questions CLASS I-II ANGINA PECTORIS, STABLE 04/26/2002 09/15/2009 Mixed dyslipidemia 04/26/2002 05/01/2009 Overview: Per Lipid Taxonomy. HTN, goal below 140/90 08/23/1998 0 Overview: Per HTN Taxonomy. DM type 2, not at goal ([facility]) 08/23/1998 Overview: Modified per Diabetes protocol #14. [...] Comments:quit 30 yrs ago, wh ile in [employer] for 4 years Alcohol Use Drinks/Week oz/Week Comments Yes a beer per nigh t Sex Assigned at Date Recorded Not on file as of this encounter Miscellaneous Notes * Telephone Encounter - Emma Santana LPN - 12/30/2017 10:22 AM EDT Routed back in [place] [facility] * Telephone Encounter - Kalli Rojas MD - 12/30/2017 10:16 AM EDT Signed Prescriptions: Disp Refills metFORMIN (GLUCOPHAGE) 850 MG Tablet 90 Tab 5 Sig: Take 1 Tab by mouth 3 times a day. Authorizing Provider: KALLI ROJAS * Telephone Encounter - Leonila Viera OSA - 12/29/2017 3:59 PM EDT Formatting of this note may [...] appointment Last date the medication was ordered: 12/26/17 Patient Phone Numbers Labs: Lab Results Component [...] Medicine Kalli Rojas MD [address] [place] [address] [phone] 06/17/2018 Office Visit Cardiology Azael Lozano MD [address] [place] [address] [phone] Health Maintenance Due Date Last Done Comments CKD PHOS USE SMARTSET 76343 1953 *DEPRESSION SCREENING, EDMUNDO Crawford FOR PTS 18 AND OVER 2014 CKD GFR USE SMARTSET 51198 10/05/201704/07, 10/24/2016, 01/18/2016, Additional history exists DIABETES-FOOT EXAM 10/24/2017 10/24/2016, 0 01/18/2016, 02/20/2015, Additional history exists DIABETES-LDL EVERY 12 MONTHS 10/24/201712/2016, 02/20/2015, 07/13/2013, Additional history exists DIABETES-HGBA1C EVERY 6 MONTHS 10/30/2017 1 07/02/2016, 10/24/2016, 01/18/2016, Additional history exists Influenza Vaccine (FLU shot) (#1) 2018 03/02/2017, 02/16/2013, 03/09/2012, Additional history exists CKD HGB USE SMARTSET 14189 04/07/201804/07, 01/01/2017, 01/18/2016, Additional history exists Yearly [...]
--- OUTSIDE RECORDS SUMMARY | 2023-02-21 02:54 | External Medical Summary | Summary of Care ---
Author Name Unknown Organization [place] [address] Phone Care Team Providers Care Utility Gelatin Maker Name Role Phone Sylvia Rojas MD Primary Care Provider [phone] Reason for Visit * Reason Comments MEDICATION REFILL Encounter Details Date Type Department Care Team Description 01/20/2018 Telephone Family Practice [facility] [address] [facility] [place] [address] Sylvia Rojas MD [address] [facility] [place] [address] [phone] MEDICATION REFILL Allergies No Known Allergiesas of this encounter Medications Prescription Sig. Disp. Refills Start Date End Date Status ONE TOUCH ULTRA DEVIIndications:DM type 2, not at goal ([facility]) check daily 1 0 12/11/2005 Active ONE TOUCH ULTRA CONTROL SOLNIndications:DM type 2, not at goal ([facility]) check daily 1 11 12/11/2005 Active [...] Tab 1 05/01/2017 Active RANEXA 1000 MG RL86Smrarjikuds:Chest pain,Unstable angina (HCC) TAKE 1 TABLET TWICE [...] metoprolol succinate XL (TOPROL XL) 25 MG YR50Sjsettyrdtr:Chroni c coronary artery disease,Aortocoronary bypass status,Dyslipidemia, goal [...] echo at [facility]. Dyslipidemia, goal LDL below 70 05/01/20 [...] Markers for Patients with Cardiovascular Disease Project #[id number] PI: Francoise Tomlin MD Please call [phone] with study related questions INTERFACED RESULT 11/17/2008 10/17/2011 GENOMICS CARDIO RESEARCH OTHER*[id number] 200806/25/2016 Overview: Renamed Per Clinical Trials Billing Project. Study Titile: Genomic Markers for Patients with Cardiovascular Disease Project #[id number] PI: Francoise Tomlin MD Please call [phone] with study related questions CLASS I-II ANGINA [...] Comments:quit 30 yrs ago, wh ile in [employer] for 4 years Alcohol Use Drinks/Week oz/Week Comments Yes a beer per nigh t Sex Assigned at Date Recorded Not on file as of this encounter Miscellaneous Notes * Telephone Encounter - Dahlia Reese LPN [...] - 01/20/2018 1:44 PM EDT Fax from [facility] on pt's Isosorbide [place] [facility]. Short supply from manufacturing. Please try toreorder and see what alternative could be given instead. in this encounter Plan of Treatment Upcoming Encounters Date Type Specialty Care Team Description 03/20/2018 Office Visit Family Medicine Sylvia Rojas MD [address] [place] [address] [phone] 06/17/2018 Office Visit Cardiology Azael Lozano MD [address] [place] [address] [phone] Health Maintenance Due Date Last Done Comments CKD PHOS USE SMARTSET 34729 1953 Zoster Vaccines HMT (1 of 2) 1986 *DEPRESSION SCREENING, EDMUNDO Crawford FOR PTS 18 AND OVER 2014 CKD GFR USE SMARTSET 89742 10/05/201704/07, 10/24/2016, 01/18/2016, Additional history exists DIABETES-FOOT EXAM 10/24/2017 10/24/2016, 0 01/18/2016, 02/20/2015, Additional history exists DIABETES-HGBA1C EVERY 6 MONTHS 10/30/2017 1 07/02/2016, 10/24/2016, 01/18/2016, Additional history exists Influenza Vaccine (FLU shot) (#1) 2017 03/02/2017, 02/16/2013, 03/09/2012, Additional history exists CKD HGB USE SMARTSET 18939 04/07/201804/07, 01/01/2017, 01/18/2016, Additional history exists Yearly B-12 05/01/2018 05/01/2017 COLONOSCOPY-EVERY 5 YRS AGES 18-100 03/20/2021 03/20/2016, 04/30/2010, 02/05/2002 DTaP,Tdap,and Td Vaccines (2 - Td) 07/10/20222012 PNEUMOCOCCAL ADULT 65 YRS AND OVER Completed 2015, 11/20/2004 as of this encounter Implants Not on fileas of this encounter
--- OUTSIDE RECORDS SUMMARY | 2023-02-21 02:54 | External Medical Summary | Summary of Care ---
Author Name Unknown Organization [place] [address] Phone Care Team Providers Care Radiology Therapist Name Role Phone Sylvia Rojas MD Primary Care Provider [phone] Reason for Visit * Reason Comments MEDICATION REFILL Encounter Details Date Type Department Care Team Description 01/20/2018 Telephone Family Practice [facility] [address] [facility] [place] [address] Sylvia Rojas MD [address] [place] [address] [phone] MEDICATION REFILL Allergies No Known Allergiesas of [...] Tab 1 05/01/2017 Active RANEXA 1000 MG [id number]:Chest pain,Unstable angina (HCC) TAKE 1 TABLET TWICE [...] metoprolol succinate XL (TOPROL XL) 25 MG [id number]:Chroni c coronary artery disease,Aortocoronary bypass status,Dyslipidemia, goal [...] determined ([facility]) Take 1 Tab by mouth [...] Overview: Per HTN Protocol #27. Enlarged aorta ([facility]) 09/15/2009 Overview: Aortic root 4.4 cm 4.29.2009 echo at [facility]. Dyslipidemia, goal LDL below [...] Overview: Per HTN Protocol #27. Unstable angina ([facility]) 11/23/2011 10/24/2016 Chest pain 11/22/2011 10/24/2016 NSTEMI (non-ST elevated myocardial infarction) ( [facility]) 11/22/2011 12/30/2016 Acute coronary syndrome ([facility]) 09/15/2009 HTN, goal below 130/80 06/14/2009 2 Overview: Per HTN Taxonomy. Type 2 diabetes mellitus wit h hemoglobin A1c goal of less than 7.0% ([facility]) 03/02/2009 03/27/2011 Overview: Modified per Diabetes protocol #14. ICD-10 update of inactive term EXAMINATION OF PARTICIPANT IN CLINICAL TRIAL-gen omics 11/17/2008 09/01/2009 Overview: Renamed Per Clinical Trials Billing Project. Study Titile: Genomic Markers for Patients with Cardiovascular Disease Project #[id number] PI: Francoise Tomlin MD Please call [phone] with study related questions INTERFACED RESULT 11/17/2008 10/17/2011 GENOMICS CARDIO RESEARCH OTHER*[id number] 200806/25/2016 Overview: Renamed Per Clinical Trials Billing Project. Study Titile: Genomic Markers for Patients with Cardiovascular Disease Project #[id number] PI: Francoise Tomlin MD Please call [phone] with study related questions CLASS I-II ANGINA [...] Comments:quit 30 yrs ago, wh ile in [employer] for 4 years Alcohol Use Drinks/Week oz/Week Comments Yes a beer per nigh t Sex Assigned at Date Recorded Not on file as of this encounter Miscellaneous Notes * Telephone Encounter - Sylvia Rojas MD - 01/20/2018 5:22 PM EDT pls notify him once a day ohn short supply so changed to similar med but unfortunately needs to be taken tid * Telephone Encounter - Elise Gonzalez LPN - 01/20/2018 1:44 PM EDT Fax from [facility] on pt's [facility] [place] [facility]. Short supply from manufacturing. Please try toreorder and see what alternative could be given instead. in this encounter Plan of Treatment Upcoming Encounters Date Type Specialty Care Team Description 03/20/2018 Office Visit Family Medicine Sylvia Rojas MD [address] [place] [address] [phone] 06/17/2018 Office Visit Cardiology Azael Lozano MD [address] [place] [address] [phone] Health Maintenance Due Date Last Done Comments CKD PHOS USE SMARTSET 45103 1954 Zoster Vaccines HMT (1 of 2) 1986 *DEPRESSION SCREENING, EDMUNDO [place] FOR PTS 18 AND OVER 2014 CKD GFR USE SMARTSET 73785 10/05/201704/07, 10/24/2016, 01/18/2016, Additional history exists DIABETES-FOOT EXAM 10/24/2017 10/24/2016, 0 01/18/2016, 02/20/2015, Additional history exists DIABETES-HGBA1C EVERY 6 MONTHS 10/30/2017 1 07/02/2016, 10/24/2016, 01/18/2016, Additional history exists Influenza Vaccine (FLU shot) (#1) 2017 03/02/2017, 02/16/2013, 03/09/2012, Additional history exists CKD HGB USE SMARTSET 36490 04/07/201804/07, 01/01/2017, 01/18/2016, Additional history exists Yearly B-12 05/01/2018 05/01/2017 COLONOSCOPY-EVERY 5 YRS AGES 18-100 03/20/2021 03/20/2016, 04/30/2010, 02/05/2002 DTaP,Tdap,and Td Vaccines (2 - Td) 07/10/20222012 PNEUMOCOCCAL ADULT 65 YRS AND OVER Completed 2015, 11/20/2004 as of this encounter Implants Not on fileas of this encounter
--- OUTSIDE RECORDS SUMMARY | 2023-02-21 02:55 | External Medical Summary | Summary of Care ---
Author Name Unknown Organization [place] [address] Phone Care Team Providers Care Cube Machine Tender Name Role Phone Sylvia Rojas MD Primary Care Provider [phone] Reason for Visit * Reason Comments eRx-Medication Refill Encounter Details Date Type Department Care Team Description 05/16/2017 Refill Cardiology, [facility] [address] [place] [address] Sushila Lozano MD [address] [place] [address] [phone] HTN, goal below 130/80 Allergies No Known Allergiesas of this encounter Medications Prescription Sig. Disp. Refills Start Date End Date Status ONE TOUCH ULTRA DEVIIndications:DM type 2, not at goal ([facility]) check daily 1 0 12/11/2005 Active ONE TOUCH ULTRA CONTROL SOLNIndications:DM type 2, not at goal ([facility]) check daily 1 11 12/11/2005 Active ONE TOUCH ULTRA TEST STRPIndications:DM type 2, not at goal (HCC) test daily 1 box 11 12/11/2005 Active ONE TOUCH ULTRASOFT LANCETS MISCIndications:DM type 2, not at goal ([facility]) test daily 1 box 11 12/11/2005 Active Ranolazine ER (RANEXA) 1000 MG [id number]:Ch est pain,Unstable angina (HCC) Take 1 Tab by mouth 2 times a day. 180 Tab 3 07/08/2016 Active JANUVIA 100 MG Tablet TAKE 1 TABLET DAILY 90 Tab 3 07/12/2016 Active Losartan Potassium-HCTZ (HYZAAR) 100-12.5 MG per tablet Take 1 Tab by mouth daily. 90 Tab 3 01/01/2017 Active metFORMIN (GLUCOPHAGE) 850 MG TabletIndications: DM type 2, goal A1C to be determined (HCC) Take 1 Tab by mouth 3 times a day. 90 Tab 5 01/02/2017 Active glimepiride (AMARYL) 4 MG Tablet TAKE [...] metoprolol succinate XL (TOPROL XL) 25 MG OS93Ubiwqfspvit:Ch ronic coronary artery disease,Aortocoron jovanna bypass status,Dyslipidemi [...] EVERY DAY 90 Tab 1 05/16/2017 Active amLODIPine (NORVASC) 5 MG TabletIndications: HTN, goal below 130/80 TAKE 1 TABLET BY MOUTH EVERY DAY 90 Tab 1 11/18/2016 05/16/2017 Discontinued as of this encounter Active Problems Problem Noted Date HTN, goal below 140/90 07/24/2015 Overview: Per HTN Protocol #27. Enlarged aorta (HCC) 09/15/2009 Overview: Aortic root 4.4 cm 4..[facility]. Dyslipidemia, goal LDL below 70 [...] Per HTN Protocol #27. Unstable angina ([facility]) 11/23/2011 10/24/2016 Chest pain 11/22/2011 10/24/2016 NSTEMI (non-ST elevated myocardial infarction) ( [facility]) 11/22/2011 12/30/2016 Acute coronary syndrome ([facility]) 09/15/2009 HTN, goal below 130/80 06/14/2009 2 Overview: Per HTN Taxonomy. Type 2 diabetes mellitus wit h hemoglobin A1c goal of less than 7.0% ([facility]) 03/02/2009 03/27/2011 Overview: Modified per Diabetes protocol #14. ICD-10 update of inactive term EXAMINATION OF PARTICIPANT IN CLINICAL TRIAL-gen omics 11/17/2008 09/01/2009 Overview: Renamed Per Clinical Trials Billing Project. Study Titile: Genomic Markers for Patients with Cardiovascular Disease Project #[id number] PI: Francoise Tomlin MD Please call [phone] with study related questions INTERFACED RESULT 11/17/2008 10/17/2011 GENOMICS CARDIO RESEARCH OTHER*[id number] 200806/25/2016 Overview: Renamed Per Clinical Trials Billing Project. Study Titile: Genomic Markers for Patients with Cardiovascular Disease Project #[id number] PI: Francoise Tomlin MD Please call [phone] with study related questions CLASS I-II ANGINA [...] Comments:quit 30 yrs ago, wh ile in [employer] for 4 years Alcohol Use Drinks/Week oz/Week Comments Yes a beer per nigh t Sex Assigned at Date Recorded Not on file as of this encounter Miscellaneous Notes * Telephone Encounter - Sushila Lozano MD - 05/16/2017 9:34 AM EST Signed Prescriptions: Disp Refills amLODIPine (NORVASC) 5 MG Tablet 90 Tab 1 Sig: TAKE 1 TABLET BY MOUTH EVERY DAY Authorizing Provider: SUSHILA LOZANO * Telephone Encounter - Silvia Beaulieu RN - 05/16/2017 8:45 AM EST Pending Prescriptions: Disp Refills amLODIPine (NORVASC) 5 MG Tablet [Pharmac*90 Tab 1 Sig: TAKE 1 TABLET BY MOUTH EVERY DAY * Telephone Encounter - Silvia Beaulieu RN - 05/16/2017 8:45 AM EST Formatting of this note may be different from the original. Pending Prescriptions: Disp Refills amLODIPine (NORVASC) 5 MG Tablet [Pharmac*90 Tab 1 Sig: TAKE 1 TABLET BY MOUTH EVERY DAY Last Office Visit: 04/07/2017 Next Office Visit: 10/28/2017 Scheduled Provider(s): Sushila Lozano MD Last medication order date: Have you choosen a preferred pharm?? Patient Active Problem List Diagnosis Code ADVANCE DIRECTIVE INFORMATION BENIGN NEOPLASM LG BOWEL D12.6 Chronic coronary artery disease I25.10 OP CABG X 3 Z09 Aortocoronary bypass status Z95.1 Dyslipidemia, goal LDL below 70 E78.5 Enlarged aorta ([facility]) I77.89 S/P angioplasty with stent Z95.9 DM type 2, goal A1C to be determined ([facility]) E11.9 HTN, goal below 140/90 I10 Labs: CREATININE(mg/dL) Frida Dt/Tm Resulted Value Status [...] Telephone Encounter - Dahlia Reese LPN - 05/16/2017 7:57 AM EST Pending Prescriptions: Disp Refills amLODIPine (NORVASC) 5 MG Tablet [Pharmac*90 Tab 1 Sig: TAKE 1 TABLET BY MOUTH EVERY DAY * Telephone Encounter - Dahlia Reese LPN - 05/16/2017 7:56 AM EST Pending Prescriptions: Disp Refills amLODIPine (NORVASC) 5 MG Tablet [Pharmac*90 Tab 1 Sig: TAKE 1 TABLET BY MOUTH EVERY DAY Last Office Visit: 04/07/2017 Next Office Visit: 10/28/2017 Scheduled Provider(s): Sushila Lozano MD Lr 7-3-17 in this encounter Plan of Treatment Upcoming Encounters Date Type Specialty Care Team Description 06/04/2017 Office Visit Dermatology Rusty Worley MD [address] [place] [address] [phone] 10/28/2017 Office Visit Cardiology Sushila Lozano MD [address] [place] [address] [phone] 10/30/2017 Office Visit Family Practice Sylvia Rojas MD [address] [place] [address] [phone] Health Maintenance Due Date Last Done Comments *ADVANCE DIRECTIVE NOT ON FILE 06/09/2014 *DEPRESSION SCREENING, [place]IG[place] FOR PTS 18 AND OVER 2014 DIABETES-FOOT EXAM 10/24/2017 10/24/2016, 0 01/18/2016, 02/20/2015, Additional history exists DIABETES-LDL EVERY 12 MONTHS 10/24/201712/2016, 02/20/2015, 07/13/2013, Additional history exists DIABETES-URINE MICROALBUMIN EVERY 12 MONTHS 10/24/2017 10/24/2016, 06/21/2016, 02/20/2015, Additional history exists DIABETES-HGBA1C EVERY 6 MONTHS 10/30/2017 1 07/02/2016, 10/24/2016, 01/18/2016, Additional history exists Yearly B-12 05/01/2018 05/01/2017 COLONOSCOPY-EVERY 5 YRS AGES 18-100 03/20/2021 03/20/2016, 04/30/2010, 02/05/2002 TETANUS EVERY 10 YEARS-TDAP (BOOSTRIX OR ADACEL) SUGGESTED IF NOT RECEIVED IN THE PAST. 07/10/2022 07/10/2012 PNEUMOCOCCAL ADULT 65 YRS AND OVER Completed 2015, 11/20/2004 Influenza Vaccine (FLU shot) Completed , 02/16/2013, 03/09/2012, Additional history exists as of this encounter Implants Not on fileas of this encounter Visit Diagnoses Diagnosis HTN, goal below 130/80 Unspecified essential hypertension in this encounter Insurance Payer Benefit Plan / Group Subscriber ID Type Phone Address [employer] VANESSA SANTOYO [id number] 1 as of this encounter
--- OUTSIDE RECORDS SUMMARY | 2023-02-21 02:55 | External Medical Summary | Summary of Care ---
Author Name Unknown Organization [place] [address] Phone Care Team Providers Care Restoration Officer Name Role Phone Sylvia Rojas MD Primary Care Provider [phone] Reason for Visit * Reason Comments RECHECK 6 month recheck. Encounter Details Date Type Department Care Team Description 05/01/2017 Office Visit Family Practice [facility] [address] [address] Sylvia Rojas MD [address] [facility] [address] [address] [phone] Risk and functional assessment*;Chronic coronary artery disease;Screening for osteoporosis;Abnormal laboratory test;DM type 2, goal A1C to be determined ([facility]);HTN, goal below 140/90;S/P angioplasty with stent;Encounter for long-term (current) use of medications Allergies No Known Allergiesas of this encounter Medications Prescription Sig. Disp. Refills Start Date End Date Status ONE TOUCH ULTRA DEVIIndications:DM type 2, not at goal (HCC) check daily 1 0 12/11/2005 Active ONE TOUCH ULTRA CONTROL SOLNIndications:DM type 2, not at goal ([facility]) check daily 1 12/11/2005 Active ONE TOUCH ULTRA TEST STRPIndications:DM type 2, not at goal (HCC) test daily 1 box 11 12/11/2005 Active ONE TOUCH ULTRASOFT LANCETS MISCIndications:DM type 2, not at goal ([facility]) test daily 1 box 11 12/11/2005 Active Ranolazine ER (RANEXA) 1000 MG [id number]:Ch est pain,Unstable angina (HCC) Take 1 Tab by mouth 2 times a day. 180 Tab 3 07/08/2016 Active JANUVIA 100 MG Tablet TAKE 1 TABLET DAILY 90 Tab 3 07/12/2016 Active amLODIPine (NORVASC) 5 MG TabletIndications: HTN, goal below 130/80 TAKE 1 TABLET BY MOUTH EVERY DAY 90 Tab 1 11/18/2016 Active Losartan Potassium-HCTZ (HYZAAR) 100-12.5 MG per [...] metoprolol succinate XL (TOPROL XL) 25 MG [id number]:Ch ronic coronary artery disease,Aortocoron jovanna bypass status,Dyslipidemi a, goal LDL below 70 2 daily 180 Tab 1 04/24/2017 Active nitroglycerin (NITROSTAT) 0.4 MG SUBLIndications:Ch ronic coronary artery disease DISSOLVE 1 TABLET UNDER THE TONGUE EVERY 5 MINUTES FOR CHEST PAIN. UP TO 3 DOSES IN 15 MINUTES. 25 Tab 1 05/01/2017 Active nitroglycerin (NITROSTAT) 0.4 MG SUBLIndications:Ch ronic coronary artery disease DISSOLVE 1 TABLET UNDER THE TONGUE EVERY 5 MINUTES FOR CHEST PAIN. UP TO 3 DOSES IN 15 MINUTES. 25 Tab 1 01/14/2017 05/01/2017 Discontinued as of this encounter Active Problems Problem Noted Date HTN, goal below 140/90 07/24/2015 Overview: Per HTN Protocol #27. Enlarged aorta ([facility]) 09/15/2009 Overview: Aortic root 4.4 cm 4.29.2009 echo at [facility]. Dyslipidemia, goal LDL below 70 05/01/20 [...] Protocol #27. Unstable angina ([facility]) 11/23/2011 10/24/2016 Chest pain 11/22/2011 10/24/2016 NSTEMI (non-ST elevated myocardial infarction) ( [facility]) 11/22/2011 12/30/2016 Acute coronary syndrome ([facility]) 09/15/2009 HTN, goal below 130/80 06/14/2009 2 Overview: Per HTN Taxonomy. Type 2 diabetes mellitus wit h hemoglobin A1c goal of less than 7.0% ([facility]) 03/02/2009 03/27/2011 Overview: Modified per Diabetes protocol #14. ICD-10 update of inactive term EXAMINATION OF PARTICIPANT IN CLINICAL TRIAL-gen omics 11/17/2008 09/01/2009 Overview: Renamed Per Clinical Trials Billing Project. Study Titile: Genomic Markers for Patients with Cardiovascular Disease Project #[id number] PI: Ricardo Yang MD Please call [phone] with study related questions INTERFACED RESULT 11/17/2008 10/17/2011 GENOMICS CARDIO RESEARCH OTHER*[id number] 200806/25/2016 Overview: Renamed Per Clinical Trials Billing Project. Study Titile: Genomic Markers for Patients with Cardiovascular Disease Project #[id number] PI: Ricardo Yang MD Please call [phone] with study related questions CLASS I-II ANGINA [...] Comments:quit 30 yrs ago, wh ile in [place] for 4 years Alcohol Use Drinks/Week oz/Week Comments Yes a beer per nigh t Sex Assigned at Date Recorded Not on file as of this encounter Last Filed Vital Signs Vital Sign Reading Time Taken Blood Pressure 130/68 05/01/2017 2:03 PM EST Pulse 68 05/01/2017 2:03 PM EST Temperature 36.1 C (97 F) 05/01/2017 2:0 3 PM EST Respiratory Rate 16 05/01/2017 2:03 PM EST Oxygen Saturation - - Inhaled Oxygen Concentration - - Weight 72.1 kg (159 lb) 05/01/2017 2:03 PM EST Height - - Body Mass Index 22.18 05/01/2017 2:03 PM EST in this encounter Instructions * Patient Instructions - Dahlia Garcia LPN - 05/01/2017 2:01 PM EST Patient Instructions - Fall Prevention Remember to take your current medications as prescribed. In order to prevent falls, you are encouraged to: Exercise Utilize assistive/adaptive devices Avoid multifocal lenses when walking Avoid hazards in home Maintain a regular toileting schedule Any questions please contact our office. Preventing Falls in the Home As you get older, falls are more [...] Improve Balance, Flexibility, Strength, and Staying Power Certain types of exercises may help make [...] Moving Safely Using a Cane or Walker Keep the cane away from your feet [...] that mean climbing, even on a stepstool. [employer] Patient Education Copyright 2008 - 2010 [employer] except where otherwise noted. Treating Urinary Incontinence in Men You can't always control the release of [...] prostate surgery can result in permanent incontinence. in this encounter Progress Notes * Sylvia Rojas MD - 05/01/2017 2:00 PM EST Formatting of this note may be different from the original. Subjective: Dirk Garcia is a 81 year old male. Chief Complaint Patient presents with RECHECK 6 month recheck. HPI: Here for routine f/u of DM, CAD ROS: GEn no change wt, no fatigue, night sweats Cardiac: No CP, palps, edema REsp: No cough, SOB, CT PHM: Patient Active Problem List Diagnosis Code ADVANCE DIRECTIVE INFORMATION BENIGN NEOPLASM LG BOWEL D12.6 Chronic coronary artery disease I25.10 OP CABG X 3 Z09 Aortocoronary bypass status Z95.1 Dyslipidemia, goal LDL below 70 E78.5 Enlarged aorta ([facility]) I77.89 S/P angioplasty with stent Z95.9 DM type 2, goal A1C to be determined ([facility]) E11.9 HTN, goal below 140/90 I10 Current Outpatient Prescriptions Medication Sig Dispense Refill metoprolol succinate XL (TOPROL XL) 25 MG TB24 2 daily 180 Tab 1 rosuvastatin (CRESTOR) 20 MG Tablet TAKE 1 TABLET DAILY AT 5 P.M. IN THE AFTERNOON 90 Tab 1 clopidogrel (PLAVIX) 75 MG Tablet TAKE 1 TABLET BY MOUTH EVERY DAY 100 Tab 1 Isosorbide Mononitrate ER 120 MG TB24 TAKE 1 TABLET BY MOUTH EVERY MORNING 30 Tab 5 nitroglycerin (NITROSTAT) 0.4 MG SUBL DISSOLVE 1 TABLET UNDER THE TONGUE EVERY 5 MINUTES FOR CHEST PAIN. UP TO 3 DOSES IN 15 MINUTES. 25 Tab 1 glimepiride (AMARYL) 4 MG Tablet TAKE 2 TABLETS BY MOUTH DAILY WITH THE FIRST MEAL OF THE DAY FOR DIABETES 180 Tab 1 metFORMIN (GLUCOPHAGE) 850 MG Tablet Take 1 Tab by mouth 3 times a day. 90 Tab 5 Losartan Potassium-HCTZ (HYZAAR) 100-12.5 MG per tablet Take 1 Tab by mouth daily. 90 Tab 3 amLODIPine (NORVASC) 5 MG Tablet TAKE 1 TABLET BY MOUTH EVERY DAY 90 Tab 1 JANUVIA 100 MG Tablet TAKE 1 TABLET DAILY 90 Tab 3 Ranolazine ER (RANEXA) 1000 MG TB12 Take 1 Tab by mouth 2 times a day. 180 Tab 3 ONE TOUCH ULTRA DICK check daily 1 0 ONE TOUCH ULTRA CONTROL SOLN check daily 1 11 ONE TOUCH ULTRA TEST STRP test daily 1 box 11 ONE TOUCH ULTRASOFT LANCETS MISC test daily 1 box 11 Past Medical History: Diagnosis Date Aortocoronary bypass status 12/06/2008 Benign neoplasm of colon 01/18 Chronic coronary artery disease 11/17/2008 Coronary atherosclerosis of [place] coronary artery DM type 2, goal A1c below 7 DM type 2, goal A1C to be determined (HCC) Dyslipidemia, goal LDL below 160 Dyslipidemia, goal LDL below 70 05/01/2009 Per Lipid Taxonomy. Enlarged aorta (HCC) 09/15/2009 Aortic root 4.4 cm 4.29.2010 echo at [facility]. HTN, goal below 130/80 06/14/2009 Per HTN Taxonomy. HTN, goal below 140/90 S/P angioplasty with stent drug eluting 09/15/09 Plavix x 12m Past Surgical History: Procedure Laterality Date CABG, ARTERIAL, SINGLE 11/25/08 CORONARY ARTERY BYPASS GRAFT USING ARTERY 1 GRAFT performed by MAXIMILIANO CASILLAS at OR [facility] CABG, ARTERY-VEIN, TWO 11/25/08 CORONARY ARTERY BYPASS GRAFT ARTERIAL AND VENOUS 2 GRAFTS performed by MAXIMILIANO CASILLAS at OR [facility] CATHETERIZE LEFT HEART THRU SKIN Cardiac Catheterization, Left Heart CATHETERIZE LEFT HEART THRU SKIN 11/17/08 LEFT HEART CATH, PERCUTANEOUS performed by DRAKE MALONE at [facility]ARD[facility]S [facility] CATHETERIZE LEFT HEART THRU SKIN 09/15/09 LEFT HEART CATH, PERCUTANEOUS performed by RICARDO YAGN at [facility] COLONOSCOPY, W/BIOPSY jan 2002 adenomatous and hyperplastic polyps, next in jan 2005 CORONARY ANGIOGRAPHY W/LEFT HEART CATH 11/25/2011 CORONARY ANGIOGRAPHY W/LEFT HEART CATH performed by Jermaine Leary DO at [facility] ENDO,VIDEO ASSIST HARVEST WALE 11/25/08 ENDOSCOPY VIDEO ASSISTED HARVEST VEIN performed by MAXIMILIANO CASILLAS at OR [facility] REMOVAL OF APPENDIX age 21 SKIN LESION DESTRUC,PREMALIGNANT,1ST LESION about 2001 facial lesion. Review of patient's allergies indicates: No Known Allergies Objective: BP 130/68 | Pulse 68 | Temp (Src) 97 (Tympanic) | Resp 16 | Wt 159 lbs (72.122kg) | BMI 22.18 kg/m | BSA 1.9 m Physical Exam: General: alert, healthy, no distress, well nourished and well developed Neck: supple, no adenopathy, no bruits, thyroid normal size, non-tender, without nodularity Heart: regular rate & rhythm, no murmurs and no gallops Lungs: chest symmetric with normal AP diameter, no chest deformities noted, no chest wall tenderness, lungs clear to auscultation Skin: skin color, texture, turgor are normal, no rashes or significant lesions, numerous SK on back ASSESSMENT/PLAN: Z13.9 Risk and functional assessment (primary encounter diagnosis) Plan: Pat scrn for fall risk Pres or abs of urin incont as Z13.9 Risk and functional assessment (primary encounter diagnosis) Plan: Pat scrn for fall risk Pres or abs of urin incont as I25.10 Chronic coronary artery disease Plan: Nitroglycerin 0.4 mg sl subl Sig:Dissolve 1 tablet under the tongue every 5 minutes for chest pain.up to 3 doses in 15 minutes. Z13.820 Screening for osteoporosis Plan: Dexa scan/bone mineral axial R89.9 Abnormal laboratory test Plan: Vitamin b12 Calcium Vitamin b12 Calcium E11.9 Dm type 2, goal a1c to be determined [facility] Plan: Hemoglobin a1c Hemoglobin a1c I10 Htn, goal below 140/90 Z95.9 S/p angioplasty with stent Z79.899 Encounter for long-term (current) use of medications Plan: Folic acid Folic acid Sylvia Rojas MD in this encounter Plan of Treatment Upcoming Encounters Date Type Specialty Care Team Description 05/26/2017 Office Visit Ancillary Density/Dexa, Bone [address] [place] [address] [phone] 06/04/2017 Office Visit Dermatology Rusty Worley MD [address] [place] [address] [place] [address] [phone] 10/28/2017 Office Visit Cardiology Azael Lozano MD [address] [address] [phone] 10/30/2017 Office Visit Family Practice Sylvia Rojas MD [address] [address] [phone] Pending Results Name Priority Associated Diagnoses Date/Ti me VITAMIN B12 Routine Abnormal laboratory test 05/01/2017 2:43 PM EST HEMOGLOBIN A1C Routine DM type 2, goal A1C to be determined (HCC) 05/01/2017 2:43 PM EST FOLIC ACID Routine Encounter for long-term (current) use of medications 05/01/2017 2:43 PM EST Scheduled Tests Name Priority Associated Diagnoses Order S chedule DEXA SCAN/BONE MINERAL AXIAL Routine Screening for osteoporosis Ordered: 05/01/2017 VITAMIN B12 Routine Abnormal laboratory test Expected: 05/01/2017 (Approximate), Expires: 05/01/2018 HEMOGLOBIN A1C Routine DM type 2, goal A1C to be determined (HCC) Expected: 05/01/2017 (Approximate), Expires: 05/01/2018 FOLIC ACID Routine Encounter for long-term (current) use of medications Expected: 05/01/2017 (Approximate), Expires: 05/01/2018 Health Maintenance Due Date Last Done Comments Yearly B-12 1936 *ADVANCE DIRECTIVE NOT ON FILE 06/09/2014 *DEPRESSION SCREENING, EDMUNDO Crawford FOR PTS 18 AND OVER 2014 Influenza Vaccine (FLU shot) (#1) 2016 02/16/2013, 03/09/2012, 01/30/2011, Additional history exists DIABETES-HGBA1C EVERY 6 MONTHS 04/25/2017 0 10/24/2016, 01/18/2016, 02/20/2015, Additional history exists DIABETES-FOOT EXAM 10/24/2017 10/24/2016, 0 01/18/2016, 02/20/2015, Additional history exists DIABETES-LDL EVERY 12 MONTHS 10/24/201712/2016, 02/20/2015, 07/13/2013, Additional history exists DIABETES-URINE MICROALBUMIN EVERY 12 MONTHS 10/24/2017 10/24/2016, 06/21/2016, 02/20/2015, Additional history exists COLONOSCOPY-EVERY 5 YRS AGES 18-100 03/20/2021 03/20/2016, 04/30/2010, 02/05/2002 TETANUS EVERY 10 YEARS-TDAP (BOOSTRIX OR ADACEL) SUGGESTED IF NOT RECEIVED IN THE PAST. 07/10/2022 07/10/2012 PNEUMOCOCCAL ADULT 65 YRS AND OVER Completed 2015, 11/20/2004 as of this encounter Implants Not on fileas of this encounter Results * CALCIUM (05/01/2017 2:43 PM) Component Value Ref Range CALCIUM 9.9 8.4 - 10.2 mg/dL Specimen [facility]forming [facility] [employer] [facility] [address] [facility] [address] [address] in this encounter Visit Diagnoses Diagnosis Risk and functional assessme nt - Primary Screening for unspecified condition Chronic coronary artery dise ase Coronary atherosclerosis of unspecified type of vessel, [place] or graft Screening for osteoporosis Special screening for osteoporosis Abnormal laboratory test Other abnormal clinical finding DM type 2, goal A1C to be de termined (HCC) Type II or unspecified type diabetes mellitus without mention of complication, not stated as uncontrolled HTN, goal below 140/90 Unspecified essential hypertension S/P angioplasty with stent Postsurgical percutaneous transluminal coronary angioplasty status Encounter for long-term (cur rent) use of medications Encounter for long-term (current) use of other medications in this encounter Insurance Payer Benefit Plan / Group Subscriber ID Type Phone Address [employer] VANESSA SANTOYO [id number] 1 as of this encounter"
--- OUTSIDE RECORDS SUMMARY | 2023-02-21 02:55 | External Medical Summary | Summary of Care ---
Author Name Unknown Organization [place] [address] Phone Care Team Providers Care Tumbling Machine Operator Name Role Phone Sylvia Rojas MD Primary Care Provider [phone] Reason for Visit * Reason Comments APPOINTMENT Encounter Details Date Type Department Care Team Description 06/12/2017 Telephone Dermatology [facility] [address] [place] [address] Rusty Worley MD APPOINTMENT Allergies No Known Allergiesas of this encounter [...] test daily 1 box 11 12/11/2005 Active JANUVIA 100 MG Tablet TAKE 1 TABLET DAILY 90 Tab 3 07/12/2016 Active Losartan Potassium-HCTZ (HYZAAR) 100-12.5 MG per tablet Take 1 Tab by mouth daily. 90 Tab 3 01/01/2017 Active metFORMIN (GLUCOPHAGE) 850 MG TabletIndications:DM type 2, goal A1C to be determined ([facility]) Take 1 Tab by mouth 3 times a day. 90 Tab 5 01/02/2017 Active glimepiride (AMARYL) 4 MG Tablet TAKE 2 TABLETS BY MOUTH DAILY WITH THE FIRST MEAL OF THE DAY FOR DIABETES 180 Tab 1 01/13/2017 Active Isosorbide Mononitrate ER 120 MG TB24 TAKE 1 TABLET BY MOUTH EVERY MORNING 30 Tab 5 01/21/2017 Active clopidogrel (PLAVIX) 75 MG TabletIndications:Murray gn neoplasm of colon,Aortocoronary bypass status,Acute coronary syndrome (HCC),Chronic coronary artery disease,Enlarged aorta (HCC),HTN, goal below 130/80,Dyslipidemia, goal LDL below 70 TAKE 1 TABLET BY MOUTH EVERY DAY 100 Tab 1 01/31/2017 Active rosuvastatin (CRESTOR) 20 MG TabletIndications:Dysl ipidemia, goal LDL below 70,Dyslipidemia, goal LDL below 160,Mixed dyslipidemia TAKE 1 TABLET DAILY AT 5 P.M. IN THE AFTERNOON 90 Tab 1 04/09/2017 Active metoprolol succinate XL (TOPROL XL) 25 MG IN43Mhgiurccfrg:Chroni c coronary artery disease,Aortocoronary bypass status,Dyslipidemia, goal LDL below 70 2 daily 180 Tab 1 04/24/2017 Active nitroglycerin (NITROSTAT) 0.4 MG SUBLIndications:Chroni c coronary artery disease DISSOLVE 1 TABLET UNDER THE TONGUE EVERY 5 MINUTES FOR CHEST PAIN. UP TO 3 DOSES IN 15 MINUTES. 25 Tab 1 05/01/2017 Active amLODIPine (NORVASC) 5 MG TabletIndications:HTN, goal below 130/80 TAKE 1 TABLET BY MOUTH EVERY DAY 90 Tab 1 05/16/2017 Active as of this encounter Active Problems Problem Noted Date HTN, goal below 140/90 07/24/2015 Overview: Per HTN Protocol #27. Enlarged aorta (HCC) 09/15/2009 Overview: Aortic root 4.4 cm 4.29.2009 echo at [facility]. Dyslipidemia, goal LDL below 70 [...] Overview: Per HTN Protocol #27. Unstable angina ([facility]) 11/23/2011 10/24/2016 Chest pain 11/22/2011 10/24/2016 NSTEMI (non-ST elevated myocardial infarction) ( [facility]) 11/22/2011 12/30/2016 Acute coronary syndrome ([facility]) 09/15/2009 HTN, goal below 130/80 06/14/2009 2 Overview: Per HTN Taxonomy. Type 2 diabetes mellitus wit h hemoglobin A1c goal of less than 7.0% ([facility]) 03/02/2009 03/27/2011 Overview: Modified per Diabetes protocol #14. ICD-10 update of inactive term EXAMINATION OF PARTICIPANT IN CLINICAL TRIAL-gen omics 11/17/2008 09/01/2009 Overview: Renamed Per Clinical Trials Billing Project. Study Titile: Genomic Markers for Patients with Cardiovascular Disease Project #[id number] PI: Francoise Tomlin MD Please call [phone] with study related questions INTERFACED RESULT 11/17/2008 10/17/2011 GENOMICS CARDIO RESEARCH OTHER*[id number] 200806/25/2016 Overview: Renamed Per Clinical Trials Billing Project. Study Titile: Genomic Markers for Patients with Cardiovascular Disease Project #[id number] PI: Francoise Tomlin MD Please call [phone] with study related questions CLASS I-II ANGINA PECTORIS, STABLE 04/26/2002 09/15/2009 Mixed dyslipidemia 04/26/2002 05/01/2009 Overview: Per Lipid Taxonomy. HTN, goal below 140/90 08/23/1998 0 Overview: Per HTN Taxonomy. DM type 2, not at goal ([facility]) 08/23/1998 Overview: Modified per Diabetes [...] Comments:quit 30 yrs ago, wh [place] in [place] for 4 years Alcohol Use Drinks/Week oz/Week Comments Yes a beer per nigh t Sex Assigned at Date Recorded Not on file as of this encounter Miscellaneous Notes * Telephone Encounter - China Migeul, NERIS - 06/12/2017 10:17 AM EST Pt had missed his Melanoma follow up with Dr. Worley on 06/04/2017 due to being out of town. Spoke with pt and does not want to reschedule at this time, would like to call back at a later date when it suits him. in this encounter Plan of Treatment Upcoming Encounters Date Type Specialty Care Team Description 10/28/2017 Office Visit Cardiology Azael Lozano MD [address] [address] [phone] 10/30/2017 Office Visit Family Practice Sylvia Rojas MD [address] [address] [phone] Health Maintenance Due Date Last Done Comments [...] / Group Subscriber ID Type Phone Address [employer] VANESSA SANTOYO [id number] 1 as of this encounter
--- OUTSIDE RECORDS SUMMARY | 2023-02-21 02:55 | External Medical Summary | Summary of Care ---
Author Name Unknown Organization [place] [address] Phone Care Team Providers Care Office Engineer Name Role Phone Sylvia Rojas MD Primary Care Provider [phone] Reason for Visit * Reason Comments FOLLOW UP 3 month return Encounter Details Date Type Department Care Team Description 04/07/2017 Office Visit Cardiology, [facility] [address] [place] [address] Cesar Elias PA-C [address] [facility] [place] [address] [phone] Studies, Nurse Arrival Cardiac, RN [address] [place] [address] [phone] Chronic coronary artery disease*;Decreased hemoglobin;Hypercalcem ia;Renal dysfunction;Aortocoron jovanna bypass status;Dyslipidemia, goal LDL below 70;HTN, goal below 140/90;S/P angioplasty with stent Allergies No Known Allergiesas of this encounter [...] 12/11/2005 Active Ranolazine ER (RANEXA) 1000 MG [id number]:Chest pain,Unstable angina (HCC) Take 1 Tab by mouth 2 times a day. 180 Tab 3 07/08/2016 Active JANUVIA 100 MG Tablet TAKE 1 TABLET DAILY 90 Tab 3 07/12/2016 Active rosuvastatin (CRESTOR) 20 MG TabletIndications:Dysl ipidemia, goal LDL below 70,Dyslipidemia, goal LDL below 160,Mixed dyslipidemia TAKE 1 TABLET DAILY AT 5 P.M. IN THE AFTERNOON 90 Tab 1 10/10/2016 Active metoprolol succinate XL (TOPROL XL) 25 MG [id number]:Chroni c coronary artery disease,Aortocoronary bypass status,Dyslipidemia, goal LDL below 70 2 daily 180 Tab 1 10/22/2016 Active amLODIPine (NORVASC) 5 MG TabletIndications:HTN, goal [...] FOR DIABETES 180 Tab 1 01/13/2017 Active nitroglycerin (NITROSTAT) 0.4 MG SUBLIndications:Chroni c coronary artery disease DISSOLVE 1 TABLET UNDER THE TONGUE EVERY 5 MINUTES FOR CHEST PAIN. UP TO 3 DOSES IN 15 MINUTES. 25 Tab 1 01/14/2017 Active Isosorbide Mononitrate ER 120 MG TB24 TAKE 1 TABLET BY MOUTH EVERY MORNING 30 Tab 5 01/21/2017 Active clopidogrel (PLAVIX) 75 MG TabletIndications:Murray gn neoplasm of colon,Aortocoronary bypass status,Acute coronary syndrome (HCC),Chronic coronary artery disease,Enlarged aorta (HCC),HTN, goal below 130/80,Dyslipidemia, goal LDL below 70 TAKE 1 TABLET BY MOUTH EVERY DAY 100 Tab 1 01/31/2017 Active as of this encounter Active Problems Problem Noted Date HTN, goal below 140/90 07/24/2015 Overview: Per HTN Protocol #27. Enlarged aorta ([facility]) 09/15/2009 Overview: Aortic root 4.4 cm 4.29.2009 echo at [facility]. Dyslipidemia, goal LDL below 70 [...] Markers for Patients with Cardiovascular Disease Project #[id number] PI: Ricardo Yang MD Please call [phone] with study related questions INTERFACED RESULT 11/17/2008 10/17/2011 GENOMICS CARDIO RESEARCH OTHER*[id number] 200806/25/2016 Overview: Renamed Per Clinical Trials Billing Project. Study Titile: Genomic Markers for Patients with Cardiovascular Disease Project #[id number] PI: Ricardo Yang MD Please call [phone] with study related questions CLASS I-II ANGINA [...] Pneumococcal Polyvalent Vacc (Pneumovax) 11/20/2004 Seasonal Influenza, Trivalen t, with Preserve, 3yr & Above, Split 02/16/2013,03/09/2012,01/30/2011,01/18,03/24/2008,05/21/2004 TDAP (age 10 and older)(Boostrix) 07/10/2012 as of this encounter Social History Tobacco Use Types Packs/Day Years Used Date Former Smoker Cigarettes 0.5 5 Quit: 05/19 Smokeless Tobacco: Never Used Comments:quit 30 yrs ago, wh ile in [employer] for 4 years Alcohol Use Drinks/Week oz/Week Comments Yes a beer per nigh t Sex Assigned at Date Recorded Not on file as of this encounter Last Filed Vital Signs Vital Sign Reading Time Taken Blood Pressure 136/76 04/07/2017 9:14 AM EST Pulse 64 04/07/2017 9:14 AM EST Temperature - - Respiratory Rate 16 04/07/2017 9:14 AM EST Oxygen Saturation - - Inhaled Oxygen Concentration - - Weight 71.1 kg (156 lb 12.8 oz) 017 9:14 AM EST Height 180.3 cm (5' 11") 04/07/2017 9:1 4 AM EST Body Mass Index 21.87 04/07/2017 9:14 AM EST in this encounter Progress Notes * Cesar Elias PA-C - 04/07/2017 9:15 AM EST Formatting of this note may be different from the original. SUBJECTIVE: Dirk Garcia is an 81 year old male here today for routine cardiology follow-up. His angina pattern has been relatively stable, utilizing about 2 per week at most. No new or worsening chest pain. No increased nitroglycerin use. No increased shortness of breath unless performing activities such as loading/unloading luggage above his norm. No palpitations. No lightheadedness or dizziness. No near syncope or syncope. No cough, scrotal/penile edema, orthopnea, PND, or edema. No epistaxis, hemoptysis, melena, hematochezia, or hematuria. Problem List: 1. Atherosclerotic coronary disease s/p coronary bypass grafting November 2008, receiving a REYES graft to LAD, saphenous vein graft to left circumflex, saphenous vein graft to posterior descending artery 2. Recurrent angina, August 2009, with subsequent catheterization demonstrating a patent REYES graft with both vein grafts noted to be occluded. Patient status post drug-eluting stent implantation to the LCA OM and RCA. 3. Repeat cardiac catheterization in November 2011 without acute progression in disease though chronic diffuse coronary atherosclerosis 4. Hypertension 5. Hyperlipidemia Patient Active Problem List Diagnosis Code ADVANCE DIRECTIVE INFORMATION BENIGN NEOPLASM LG BOWEL D12.6 Chronic coronary artery disease I25.10 OP CABG X 3 Z09 Aortocoronary bypass status Z95.1 Dyslipidemia, goal LDL below 70 E78.5 Enlarged aorta (HCC) I77.89 S/P angioplasty with stent Z95.9 DM type 2, goal A1C to be determined (HCC) E11.9 HTN, goal below 140/90 I10 Past Medical History: Diagnosis Date Aortocoronary bypass status 12/06/2008 Benign neoplasm of colon 01/18 Chronic coronary artery disease 11/17/2008 Coronary atherosclerosis of mohegan coronary artery DM type 2, goal A1c [...] GRAFT performed by MAXIMILIANO CASILLAS at OR [facility] CABG, ARTERY-VEIN, TWO 11/25/08 CORONARY ARTERY BYPASS GRAFT ARTERIAL AND VENOUS 2 GRAFTS performed by MAXIMILIANO CASILLAS at OR [facility] CATHETERIZE LEFT HEART THRU SKIN Cardiac Catheterization, Left Heart CATHETERIZE LEFT HEART THRU SKIN 11/17/08 LEFT HEART CATH, PERCUTANEOUS performed by DRAKE MALONE at [facility]ARD[facility] CATHETERIZE LEFT HEART THRU SKIN 09/15/09 LEFT HEART CATH, PERCUTANEOUS performed by RICARDO YANG at [facility] COLONOSCOPY, W/BIOPSY jan 2002 adenomatous and hyperplastic polyps, next in jan 2005 CORONARY ANGIOGRAPHY W/LEFT HEART CATH 11/25/2011 CORONARY ANGIOGRAPHY W/LEFT HEART CATH performed by Jermaine Leary DO at [facility] ENDO,VIDEO ASSIST HARVEST WALE 11/25/08 ENDOSCOPY VIDEO ASSISTED HARVEST VEIN performed by MAXIMILIANO CASILLAS at [facility] REMOVAL OF APPENDIX age 21 SKIN LESION DESTRUC,PREMALIGNANT,1ST LESION about 2001 facial lesion. Family History: Mother with a CVA at 38. Father with an ME at 81 and also had Alzheimer'sdementia. Social History: Nonsmoker. Did smoke while in the [employer] for 4 years. No significant alcohol consumption. Denies illegal drug use. . Two grown children. 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 Review of patient's allergies indicates: No Known Allergies Current Outpatient Prescriptions Medication Sig Dispense Refill clopidogrel (PLAVIX) 75 MG Tablet TAKE 1 TABLET BY MOUTH EVERY DAY 100 Tab 1 Isosorbide Mononitrate ER 120 MG TB24 TAKE 1 TABLET BY MOUTH EVERY MORNING 30 Tab 5 glimepiride (AMARYL) 4 MG Tablet TAKE 2 [...] 2 times a day. 180 Tab 3 nitroglycerin (NITROSTAT) 0.4 MG SUBL DISSOLVE 1 TABLET UNDER THE TONGUE EVERY 5 MINUTES FOR CHEST PAIN. UP TO 3 DOSES IN 15 MINUTES. 25 Tab 1 ONE TOUCH ULTRA DICK check daily 1 0 ONE TOUCH ULTRA CONTROL SOLN check daily 1 11 ONE TOUCH ULTRA TEST STRP test daily 1 box 11 ONE TOUCH ULTRASOFT LANCETS MISC test daily 1 box 11 OBJECTIVE/PHYSICAL EXAMINATION: BP 136/76 | Pulse 64 | Resp 16 | Ht 5' 11" (1.803m) | Wt 156 lbs 12.8 oz (71.124kg) | BMI 21.87 kg/m | BSA 1.89 m BP on my examination was 122/60, equal in both arms General: A&Ox3. NAD. Stated age HEENT: Conjunctiva are pink and non-injected, sclera clear. No JVD. No carotid bruits Chest: Normal shape and normal respiratory effort Lungs: Clear to auscultation Cardiac Exam: - RRR, 64 bpm. Abdomen: +BS. Soft. Nontender. Musculoskeletal: No gait disturbance, no weakness Extremities: No clubbing, cyanosis, or edema on the right. There is significant, what appears to behealing ecchymosis involving the entire left lower extremity from upper thigh to the dorsal aspect of the foot. There is a 1 to 2 cm lesion in the mid iglesias with mild surrounding erythema. No overt cellulitis. There is mild peripheral edema on the right. Neuro: Grossly normal exam Psych: Appropriate affect and insight. Data: Resting echocardiography performed at [facility], interpreted by Dr. Escalante, on June 22, 2016 revealed no significant change compared to the previously available study of August. There was mild to moderate hypokinesis of the basal inferoseptal/inferior sawant, otherwise, normal wall motion. Normal LV chamber size with moderate concentric LVH. Normal systolic function, EF55 to 60%. July 17, 2016 Lexiscan Interpretation Summary (as per Dr. 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 Gated analysis reveals hypokinesis of the inferior and inferior basilar myocardium with the estimated left ventricular ejection fraction to be around 70%. The findings are similar to the previous study of 2014. ASSESSMENT: Relatively stable cardiac signs and symptoms. RECOMMENDATIONS/PLAN: 1. Follow-up CBC and PRP today. 2. Continue current therapies as prescribed. 3. Cardiology follow-up with Dr. Lozano in 6 months time or as needed with the undersigned in the interim. 4. ER with emergencies. Cesar Elias PA-C Department of Cardiology in this encounter Plan of Treatment Upcoming Encounters Date Type Specialty Care Team Description 04/25/2017 Office Visit Family Practice Sylvia Rojas MD [address] [facility] [place] [address] [phone] 06/04/2017 Office Visit Dermatology Rusty Worley MD [address] [place] [address] [phone] 10/28/2017 Office Visit Cardiology Azael Lozano MD [address] [place] [address] [phone] [phone] Results Name Priority Associated Diagnoses Date/Ti me BASIC METAB PANEL, BMP Routine Hypercalcemia Renal dysfunction 04/07/2017 9:52 AM EST Scheduled Tests Name Priority Associated Diagnoses Order S chedule BASIC METAB PANEL, BMP Routine Hypercalcemia Renal dysfunction Expected: 04/07/2017 (Approximate), Expires: 07/08/2017 Health Maintenance Due Date Last Done Comments [...] on fileas of this encounter Results * CBC (04/07/2017 9:52 AM) Component Value Ref Range WBC 7.52 4.00 - 10.80 K/u L RBC 4.05(L) 4.50 - 5.25 M/uL HGB 13.1(L) 14.0 - 16.8 g/dL HCT 38.8(L) 40.0 - 48.4 % MCV 95.8 82.0 - 99.5 fL MCH 32.3 27.0 - 34.0 pg MCHC 33.8 32.0 - 36.0 g/dL RDW 12.8 11.5 - 15.5 % PLATELET COUNT 169 140 - 400 K/uL MPV 9.5 6.6 - 11.1 fL Specimen Performing Laborator y [facility] PHLEB ROOM [facility] Phleb Room [address] [facility] [place] [address] in this encounter Visit Diagnoses Diagnosis Chronic coronary artery dise ase - Primary Coronary atherosclerosis of unspecified type of vessel, mohegan or graft Decreased hemoglobin Anemia, unspecified Hypercalcemia Renal dysfunction Unspecified disorder of kidney and ureter Aortocoronary bypass status Postsurgical aortocoronary bypass status Dyslipidemia, goal LDL below 70 Other and unspecified hyperlipidemia HTN, goal below 140/90 Unspecified essential hypertension S/P angioplasty with stent Postsurgical percutaneous transluminal coronary angioplasty status in this encounter Insurance Payer Benefit Plan / Group Subscriber ID Type Phone Address [employer] VANESSA SANTOYO [id number] 1 as of this encounter
--- OUTSIDE RECORDS SUMMARY | 2023-02-21 02:55 | External Medical Summary | Summary of Care ---
Author Name Unknown Organization [place] [address] Phone Care Team Providers Care Hat And Cap Opener Name Role Phone Sylvia Rojas MD Primary Care Provider [phone] Reason for Visit * Reason Comments eRx-Medication Refill Encounter Details Date Type Department Care Team Description 04/08/2017 Refill Cardiology, [facility] [address] [facility] [place] [address] Azael Lozano MD [address] [place] [address] [phone] Dyslipidemia, goal LDL below 70;Dyslipidemia, goal LDL below 160;Mixed dyslipidemia Allergies No Known Allergiesas of this encounter Medications Prescription Sig. Disp. Refills Start Date End Date Status ONE TOUCH ULTRA DEVIIndications:DM type 2, not at goal ([facility]) check daily 1 0 12/11/2005 Active ONE TOUCH ULTRA CONTROL SOLNIndications:DM type 2, not at goal ([facility]) check daily 1 12/11/2005 Active ONE TOUCH ULTRA TEST STRPIndications:DM type 2, not at goal ([facility]) test daily 1 box 11 12/11/2005 Active ONE TOUCH ULTRASOFT LANCETS MISCIndications:DM type 2, not at goal ([facility]) test daily 1 box 11 12/11/2005 Active Ranolazine ER (RANEXA) 1000 MG [id number]:Ch est pain,Unstable angina (HCC) Take 1 Tab by mouth 2 times a day. 180 Tab 3 07/08/2016 Active JANUVIA 100 MG Tablet TAKE 1 TABLET DAILY 90 Tab 3 07/12/2016 Active metoprolol succinate XL (TOPROL XL) 25 MG [id number]:Ch ronic coronary artery disease,Aortocoron jovanna bypass status,Dyslipidemi a, goal LDL below 70 2 daily 180 Tab 1 10/22/2016 Active amLODIPine (NORVASC) 5 MG TabletIndications: HTN, [...] 1 01/13/2017 Active nitroglycerin (NITROSTAT) 0.4 MG SUBLIndications:Ch ronic [...] THE AFTERNOON 90 Tab 1 04/09/2017 Active rosuvastatin (CRESTOR) 20 MG TabletIndications: Dyslipidemia, goal LDL below 70,Dyslipidemia, goal LDL below 160,Mixed dyslipidemia TAKE 1 TABLET DAILY AT 5 P.M. IN THE AFTERNOON 90 Tab 1 10/10/2016 04/08/2017 Discontinued as of this encounter Active Problems Problem Noted Date HTN, goal below 140/90 07/24/2015 Overview: Per HTN Protocol #27. Enlarged aorta ([facility]) 09/15/2009 Overview: Aortic root 4.4 [...] Markers for Patients with Cardiovascular Disease Project #[id number] PI: Francoise Tomlin MD Please call [phone] with study related questions INTERFACED RESULT 11/17/2008 10/17/2011 GENOMICS CARDIO RESEARCH OTHER*[id number] 200806/25/2016 Overview: Renamed Per Clinical Trials Billing Project. Study Titile: Genomic Markers for Patients with Cardiovascular Disease Project #[id number] PI: Francoise Tomlin MD Please call [phone] with study related questions CLASS I-II ANGINA [...] Comments:quit 30 yrs ago, wh ile in [place] for 4 years Alcohol Use Drinks/Week oz/Week Comments Yes a beer per nigh t Sex Assigned at Date Recorded Not on file as of this encounter Plan of Treatment Upcoming Encounters Date Type Specialty Care Team Description 04/25/2017 Office Visit Family Practice Sylvia Rojas MD [address] [place] [address] [phone] 06/04/2017 Office Visit Dermatology Rusty Worley MD [address] [place] [address], [place] [address] [phone] 10/28/2017 Office Visit Cardiology Azael Lozano MD [address] [place] [address] [phone] Health Maintenance Due Date Last Done Comments [...] Mixed dyslipidemia Mixed hyperlipidemia in this encounter Insurance Payer Benefit Plan / Group Subscriber ID Type Phone Address [employer] VANESSA SANTOYO [id number] 1 as of this encounter
--- OUTSIDE RECORDS SUMMARY | 2023-02-21 02:55 | External Medical Summary | Summary of Care ---
Author Name Unknown Organization [place] [address] Phone Care Team Providers Care Wired Music Operator Name Role Phone Kalli Rojas MD Primary Care Provider [phone] Reason for Visit * Reason Comments MEDICATION REFILL Encounter Details Date Type Department Care Team Description 04/24/2017 Refill Family Practice [facility] [address] [address] Kalli Rojas MD [address] [facility] [place] [address] [phone] Chronic coronary artery disease;Aortocoronary bypass status;Dyslipidemia, goal LDL below 70 Allergies No Known Allergiesas of this encounter Medications Prescription Sig. Disp. Refills Start Date End Date Status ONE TOUCH ULTRA DEVIIndications:DM type 2, not at goal ([facility]) check daily 1 0 12/11/2005 Active ONE TOUCH ULTRA CONTROL SOLNIndications:DM type 2, not at goal ([facility]) check daily 1 11 12/11/2005 Active ONE TOUCH ULTRA TEST STRPIndications:DM type 2, not at goal ([facility]) test daily 1 box 11 12/11/2005 Active ONE TOUCH ULTRASOFT LANCETS MISCIndications:DM type 2, not at goal ([facility]) test daily 1 box 11 12/11/2005 Active Ranolazine ER (RANEXA) 1000 MG [id number]:Ch est pain,Unstable angina (HCC) Take 1 Tab [...] metoprolol succinate XL (TOPROL XL) 25 MG [id number]:Ch ronic coronary artery disease,Aortocoron jovanna bypass status,Dyslipidemi a, goal LDL below 70 2 daily 180 Tab 1 04/24/2017 Active metoprolol succinate XL (TOPROL XL) 25 MG [id number]:Ch ronic coronary artery disease,Aortocoron jovanna bypass status,Dyslipidemi a, goal LDL below 70 2 daily 180 Tab 1 10/22/2016 04/24/2017 Discontinued as of this encounter Active Problems Problem Noted Date HTN, goal below 140/90 07/24/2015 Overview: Per HTN Protocol #27. Enlarged aorta ([facility]) 09/15/2009 Overview: Aortic root 4.4 cm 4.29.2009 echo at [facility]. Dyslipidemia, goal LDL below 70 05/01/20 [...] Markers for Patients with Cardiovascular Disease Project #[id number] PI: Francoise Tomlin MD Please call [phone] with study related questions INTERFACED RESULT 11/17/2008 10/17/2011 GENOMICS CARDIO RESEARCH OTHER*[id number] 200806/25/2016 Overview: Renamed Per Clinical Trials Billing Project. Study Titile: Genomic Markers for Patients with Cardiovascular Disease Project #[id number] PI: Francoise Tomlin MD Please call [phone] with study related questions CLASS I-II ANGINA [...] Comments:quit 30 yrs ago, wh ile in [employer] for 4 years Alcohol Use Drinks/Week oz/Week Comments Yes a beer per nigh t Sex Assigned at Date Recorded Not on file as of this encounter Miscellaneous Notes * Telephone Encounter - Kalli Rojas MD - 04/24/2017 9:16 AM EST Signed Prescriptions: Disp Refills metoprolol succinate XL (TOPROL XL) 25 MG *180 Tab1 Si daily Authorizing Provider: KALLI ROJAS * Telephone Encounter - Maile Franco LPN - 04/24/2017 8:31 AM EST Pending Prescriptions: Disp Refills metoprolol succinate XL (TOPROL XL) 25 MG*180 Tab1 Si daily * Telephone Encounter - Elise Ruelas LPN - 04/24/2017 8:09 AM EST Pending Prescriptions: Disp Refills metoprolol succinate XL (TOPROL XL) 25 MG*180 Tab1 Si daily Last Office Visit: 12/30/2016 Next Office Visit: 05/01/2017 Scheduled Provider(s): Kalli Rojas MD If no future appointments scheduled, and last appointment is greater than a year ago, please schedule patient for a follow-up appointment Last date the medication was ordered: 10/22/16 Phone number(s): [phone] (home) [phone] (work) Labs: CREATININE(mg/dL) Frida Dt/Tm Resulted Value [...] HEMOGLOBIN, A1C(%) Frida Dt/Tm Resulted Value Status 10/24/16 11:50A 10/24/16 6.5* FINAL 01/18/16 11:30A 01/18/16 7.0* FINAL 02/20/15 3:38P 02/20/15 7.0* FINAL in this encounter Plan of Treatment Upcoming Encounters Date Type Specialty Care Team Description 05/01/2017 Office Visit Family Practice Kalli Rojas MD [address] [place] [address] [phone] 06/04/2017 Office Visit Dermatology Rusty Worley MD [address] [place] [address], [place] [address] [phone] 10/28/2017 Office Visit Cardiology Azael Lozano MD [address] [place] [address] [phone] Health Maintenance Due Date Last Done Comments [...] Diagnoses Diagnosis Chronic coronary artery dise ase Coronary atherosclerosis of unspecified type of vessel, ewiiaapaayp or graft Aortocoronary bypass status Postsurgical aortocoronary bypass status Dyslipidemia, goal LDL below 70 Other and unspecified hyperlipidemia in this encounter Insurance Payer Benefit Plan / Group Subscriber ID Type Phone Address [employer] VANESSA SANTOYO [id number] 1 as of this encounter
--- OUTSIDE RECORDS SUMMARY | 2023-02-21 02:55 | External Medical Summary | Summary of Care ---
Author Name Unknown Organization [place] [address] Phone Care Team Providers Care Supervisor Riveting Name Role Phone Sylvia Rojas MD Primary Care Provider [phone] Reason for Visit * Reason Comments TEST RESULTS Encounter Details Date Type Department Care Team Description 04/07/2017 Telephone Cardiology, [facility] [place] [address] Cesar Elias PA-Adrian [address] [facility] [place] [address] [phone] TEST RESULTS Allergies No Known Allergiesas of this encounter Medications Prescription Sig. Disp. Refills Start Date End Date Status ONE TOUCH ULTRA DEVIIndications:DM type 2, not at goal ([facility]) check daily 1 0 12/11/2005 Active ONE TOUCH ULTRA CONTROL SOLNIndications:DM type 2, not at goal ([facility]) check daily 1 11 12/11/2005 Active ONE TOUCH ULTRA TEST STRPIndications:DM type 2, not at goal (HCC) test daily 1 box 11 12/11/2005 Active ONE TOUCH ULTRASOFT LANCETS MISCIndications:DM type 2, not at goal ([facility]) test daily 1 box 11 12/11/2005 Active Ranolazine ER (RANEXA) 1000 MG [id number]:Chest pain,Unstable angina (HCC) Take 1 Tab by [...] metoprolol succinate XL (TOPROL XL) 25 MG BQ66Kslcnzfhwdq:Chroni c coronary artery disease,Aortocoronary bypass status,Dyslipidemia, goal [...] Aortic root 4.4 cm 4.29.2009 echo at [facility]. Dyslipidemia, goal LDL below 70 05/01/20 [...] HTN Protocol #27. Unstable angina ([facility]) 11/23/2011 10/24/2016 Chest pain 11/22/2011 10/24/2016 NSTEMI (non-ST elevated myocardial infarction) ( [facility]) 11/22/2011 12/30/2016 Acute coronary syndrome ([facility]) 09/15/2009 HTN, goal below 130/80 06/14/2009 2 Overview: Per HTN Taxonomy. Type 2 diabetes mellitus wit h hemoglobin A1c goal of less than 7.0% ([facility]) 03/02/2009 03/27/2011 Overview: Modified per Diabetes protocol #14. ICD-10 update of inactive term EXAMINATION OF PARTICIPANT IN CLINICAL TRIAL-gen omics 11/17/2008 09/01/2009 Overview: Renamed Per Clinical Trials Billing Project. Study Titile: Genomic Markers for Patients with Cardiovascular Disease Project #[id number] PI: Francoise Tomlin MD Please call [phone] with study related questions INTERFACED RESULT 11/17/2008 10/17/2011 GENOMICS CARDIO RESEARCH OTHER*[id number] 200806/25/2016 Overview: Renamed Per Clinical Trials Billing Project. Study Titile: Genomic Markers for Patients with Cardiovascular Disease Project #[id number] PI: Francoise Tomlin MD Please call [phone] with study related questions CLASS I-II ANGINA PECTORIS, STABLE 04/26/2002 09/15/2009 Mixed dyslipidemia 04/26/2002 05/01/2009 Overview: Per Lipid Taxonomy. HTN, goal below 140/90 08/23/1998 0 Overview: Per HTN Taxonomy. DM type 2, not at goal ([facility]) 08/23/1998 Overview: Modified per Diabetes [...] Comments:quit 30 yrs ago, wh ile in [place] for 4 years Alcohol Use Drinks/Week oz/Week Comments Yes a beer per nigh t Sex Assigned at Date Recorded Not on file as of this encounter Plan of Treatment Upcoming Encounters Date Type Specialty Care Team Description 04/25/2017 Office Visit Family Practice Sylvia Rojas MD 132 [place] [address] [phone] 06/04/2017 Office Visit Dermatology Rusty Worley MD [address] [place] [address] [phone] 10/28/2017 Office Visit Cardiology Azael [facility] [address] [facility] [address] [phone] Scheduled Tests Name Priority Associated Diagnoses Order S chedule BASIC METAB PANEL, BMP Routine Chronic coronary artery disease Expected: 04/25/2017 (Approximate), Expires: 05/07/2018 Health Maintenance Due Date Last Done Comments [...] Coronary atherosclerosis of unspecified type of vessel, absentee-shawnee or graft in this encounter Insurance Payer Benefit Plan / Group Subscriber ID Type Phone Address [email or web address] VANESSA SANTOYO [id number] 1 as of this encounter
--- OUTSIDE RECORDS SUMMARY | 2023-02-21 02:55 | External Medical Summary | Summary of Care ---
Author Name Unknown Organization [place] [address] Phone Care Team Providers Care Reversing Mill Roller Name Role Phone Sylvia Rojas MD Primary Care Provider [phone] Reason for Visit * Reason Comments eRx-Medication Refill Encounter Details Date Type Department Care Team Description 06/15/2017 Refill Cardiology, [facility] 132 [facility] [place] [place] [address] Sushila Lozano MD 132 [facility] [place] [address] [phone] Chest pain;Unstable angina (HCC) Allergies No Known Allergiesas of this [...] metoprolol succinate XL (TOPROL XL) 25 MG [id number]:Ch ronic coronary artery disease,Aortocoron jovanna bypass status,Dyslipidemi [...] Tab 1 05/16/2017 Active RANEXA 1000 MG YY30Dndqwwhcuek:Ch est pain,Unstable angina (HCC) TAKE 1 TABLET TWICE A DAY 180 Tab 3 06/17/2017 Active Ranolazine ER (RANEXA) 1000 MG NJ25Xmynyulcbui:Ch est pain,Unstable angina (HCC) Take 1 Tab by mouth 2 times a day. 180 Tab 3 07/08/2016 06/15/2017 Discontinued as of this encounter Active Problems Problem Noted Date HTN, goal below 140/90 07/24/2015 Overview: Per HTN Protocol #27. Enlarged aorta (HCC) 09/15/2009 Overview: Aortic root 4.4 cm 4.29.2009 echo at [facility]. Dyslipidemia, goal LDL below 70 05/01/20 09 [...] Overview: Per HTN Protocol #27. Unstable angina ([facility]) 11/23/2011 10/24/2016 Chest pain 11/22/2011 10/24/2016 NSTEMI (non-ST elevated myocardial infarction) ( [facility]) 11/22/2011 12/30/2016 Acute coronary syndrome ([facility]) 09/15/2009 HTN, goal below 130/80 06/14/2009 2 Overview: Per HTN Taxonomy. Type 2 diabetes mellitus wit h hemoglobin A1c goal of less than 7.0% ([facility]) 03/02/2009 03/27/2011 Overview: Modified per Diabetes protocol #14. ICD-10 update of inactive term EXAMINATION OF PARTICIPANT IN CLINICAL TRIAL-gen omics 11/17/2008 09/01/2009 Overview: Renamed Per Clinical Trials Billing Project. Study Titile: Genomic Markers for Patients with Cardiovascular Disease Project #[id number] PI: Francoise Tomlin MD Please call [phone] with study related questions INTERFACED RESULT 11/17/2008 10/17/2011 GENOMICS CARDIO RESEARCH OTHER*[id number] 200806/25/2016 Overview: Renamed Per Clinical Trials Billing Project. Study Titile: Genomic Markers for Patients with Cardiovascular Disease Project #[id number] PI: Francoise Tomlin MD Please call [phone] with study related questions CLASS I-II ANGINA PECTORIS, STABLE 04/26/2002 09/15/2009 Mixed dyslipidemia 04/26/2002 05/01/2009 Overview: Per Lipid Taxonomy. HTN, goal below 140/90 08/23/199806/14/201 0 Overview: [...] Comments:quit 30 yrs ago, wh ile in [employer] for 4 years Alcohol Use Drinks/Week oz/Week Comments Yes a beer per nigh t Sex Assigned at Date Recorded Not on file as of this encounter Miscellaneous Notes * Telephone Encounter - Sushila Lozano MD - 06/17/2017 10:35 AM EST Signed Prescriptions: Disp Refills RANEXA 1000 MG TB12 180 Tab3 Sig: TAKE 1 TABLET TWICE A DAY Authorizing Provider: SUSHILA LOZANO * Telephone Encounter - Kristian Nava LPN - 06/17/2017 10:31 AM EST Pending Prescriptions: Disp Refills RANEXA 1000 MG TB12 [Pharmacy Med Name: R*180 Tab3 Sig: TAKE 1 TABLET TWICE A DAY * Telephone Encounter - Eliane Payan LPN - 06/17/2017 10:04 AM EST Pending Prescriptions: Disp Refills RANEXA 1000 MG TB12 [Pharmacy Med Name: R*180 Tab3 Sig: TAKE 1 TABLET TWICE A DAY * Telephone Encounter - Eliane Payan LPN - 06/17/2017 10:04 AM EST Pending Prescriptions: Disp Refills RANEXA 1000 MG TB12 [Pharmacy Med Name: R*180 Tab3 Sig: TAKE 1 TABLET TWICE A DAY Last Office Visit: 04/07/2017 Next Office Visit: 10/28/2017 Scheduled Provider(s): Sushila Lozano MD If no future appointments scheduled, and last appointment is greater than a year ago, please schedule patient for a follow-up appointment Last date the medication was ordered: 07/08/16 Phone number(s): [phone] (home) [phone] (work) Labs: CREATININE(mg/dL) Frida Dt/Tm Resulted Value [...] Care Team Description 10/28/2017 Office Visit Cardiology Sushila Lozano MD [address] [place] [address] [phone] 10/30/2017 Office Visit Family Practice Sylvia Rojas MD [address] [place] [address] [phone] Health Maintenance Due Date Last Done Comments [...] fileas of this encounter Visit Diagnoses Diagnosis Chest pain Chest pain, unspecified Unstable angina (HCC) Intermediate coronary syndrome in this encounter Insurance Payer Benefit Plan / Group Subscriber ID Type Phone Address [employer] VANESSA SANTOYO [id number] 1 as of this encounter
--- OUTSIDE RECORDS SUMMARY | 2023-02-21 02:55 | External Medical Summary ---
Author Name Unknown Address [facility] [place] [address] Phone Organization K01:[facility] [address] [id number] Laboratory Report Ordering Provider Test Date Status ARI MAHAN 05/01/2017 14:43:00 Final Observation Date Value Abnormality Reference Status HbA1C 05/01/2017 23:53 7.4 Above high normal 4.0-6 .4 Final Performing Location [facility] [address] [facility] [address]
--- OUTSIDE RECORDS SUMMARY | 2023-02-21 02:55 | External Medical Summary ---
Author Name Unknown Address [address] [phone] Phone Organization K01:[facility] [address] [id number] Laboratory Report Ordering Provider Test Date Status ARI MAHAN 05/01/2017 14:43:00 Final Observation Date Value Abnormality Reference Status Folic Acid 05/02/2017 00:18 12.0 >4.5 Fi nal Performing Location [facility] [address] [facility] [address]
--- OUTSIDE RECORDS SUMMARY | 2023-02-21 02:55 | External Medical Summary ---
Author Name Unknown Address [address] [place] [address] [phone] Phone Organization K01:[facility] [address] [id number] Laboratory Report Ordering Provider Test Date Status ARI MAHAN 05/01/2017 14:43:00 Final Observation Date Value Abnormality Reference Status Vitamin B12 05/02/2017 00:18 [phone] F inal Performing Location [facility] [address] [facility] [address]
--- OUTSIDE RECORDS SUMMARY | 2023-02-21 02:55 | External Medical Summary ---
Author Name Unknown Address [address] [place] [address] Phone Organization K0G:[facility] Stephanie [facility] 132 [facility] [place] [address] Laboratory Report Ordering Provider Test Date Status ARI MAHAN 01/01/2017 13:44:00 Final Observation Date Value Abnormality Reference Status WBC, Total 01/01/2017 14:31 8.61 4.00-10.80 F inal RBC 01/01/2017 14:31 2.87 Below low normal 4.50-5 .25 Final Hemoglobin 01/01/2017 14:31 9.8 Below low normal 14.0- 16.8 Final HCT 01/01/2017 14:31 28.6 Below low normal 40.0-4 8.4 Final MCV 01/01/2017 14:31 99.7 Above high normal 82.0- 99.5 Final MCH 01/01/2017 14:31 34.1 Above high normal 27.0- 34.0 Final MCHC 01/01/2017 14:31 34.3 32.0-36.0 Fin al RDW 01/01/2017 14:31 13.2 11.5-15.5 Fin al Platelets 01/01/2017 14:31 282 140-400 Fin al MPV 01/01/2017 14:31 8.8 6.6-11.1 Fin al Segs 01/01/2017 14:31 67.9 40-75 Fin al Lymphs % 01/01/2017 14:31 20.8 18-42 Fin al Monos 01/01/2017 14:31 10.7 1-11 Fin al Eosinophils 01/01/2017 14:31 0.5 0-6 F inal Basos 01/01/2017 14:31 0.1 0-2 Fin al Absolute Segs 01/01/2017 14:31 5.85 1.8-7.7 Final Lymphs, absolute 01/01/2017 14:31 1.79 1.0-4. 8 Final Monos, Abs 01/01/2017 14:31 0.92 0.0-1.1 Fi nal Eos, Abs 01/01/2017 14:31 0.04 0.0-0.7 Fin al Basos, Abs 01/01/2017 14:31 0.01 0.0-0.2 Fi nal Performing Location [address] [address]
--- OUTSIDE RECORDS SUMMARY | 2023-02-21 02:55 | External Medical Summary ---
Author Name Unknown Address [address] [facility] [place] [address] Phone Organization K0G:[facility] 132 [facility] [place] [address] Laboratory Report Ordering Provider Test Date Status NATE WILLARD 04/07/2017 09:52:00 Final Observation Date Value Abnormality Reference Status WBC, Total 04/07/2017 10:12 7.52 4.00-10.80 F inal RBC 04/07/2017 10:12 4.05 Below low normal 4.50-5 .25 Final Hemoglobin 04/07/2017 10:12 13.1 Below low normal 14.0- 16.8 Final HCT 04/07/2017 10:12 38.8 Below low normal 40.0-4 8.4 Final MCV 04/07/2017 10:12 95.8 82.0-99.5 Fin al MCH 04/07/2017 10:12 32.3 27.0-34.0 Fin al MCHC 04/07/2017 10:12 33.8 32.0-36.0 Fin al RDW 04/07/2017 10:12 12.8 11.5-15.5 Fin al Platelets 04/07/2017 10:12 169 140-400 Fin al MPV 04/07/2017 10:12 9.5 6.6-11.1 Fin al Performing Location [facility] Stephanie [facility] 132 [facility] [place] [address]
--- OUTSIDE RECORDS SUMMARY | 2023-02-21 02:55 | External Medical Summary | Summary of Care ---
Author Name Unknown Organization [place] [address] Phone Care Team Providers Care Telecommunicator Supervisor Name Role Phone Sylvia Rojas MD Primary Care Provider [phone] Reason for Visit * Reason Comments Information Encounter Details Date Type Department Care Team Description 07/04/2017 Telephone Family Practice [facility] 132 [facility] [place] [address] Sylvia Rojas MD 132 [place] [address] [phone] Information Allergies No Known Allergiesas of this encounter [...] MISCIndications:DM type 2, not at goal ([facility]) test daily 1 box 11 [...] metoprolol succinate XL (TOPROL XL) 25 MG HH19Rjqxtgattaf:Ch ronic coronary artery disease,Aortocoron jovanna bypass status,Dyslipidemi [...] Tab 1 05/16/2017 Active RANEXA 1000 MG DY74Ebtfqtlnenm:Ch est pain,Unstable angina (HCC) TAKE 1 TABLET TWICE A DAY 180 Tab 3 06/17/2017 Active metFORMIN (GLUCOPHAGE) 850 MG TabletIndications: DM type 2, goal A1C to be determined (HCC) Take 1 Tab by mouth 3 times a day. 90 Tab 5 07/04/2017 Active JANUVIA 100 MG Tablet TAKE 1 TABLET DAILY 90 Tab 3 07/12/2016 07/07/2017 Discontinued metFORMIN (GLUCOPHAGE) 850 MG TabletIndications: DM type 2, goal A1C to be determined (HCC) Take 1 Tab by mouth 3 times a day. 90 Tab 5 01/02/2017 07/04/2017 Discontinued as of this encounter Active Problems Problem Noted Date HTN, goal below 140/90 07/24/2015 Overview: Per HTN Protocol #27. Enlarged aorta (HCC) 09/15/2009 Overview: Aortic root 4.4 cm 4.29.[facility] Dyslipidemia, goal LDL below 70 05/01/20 09 [...] Per HTN Protocol #27. Unstable angina ([facility]) 11/23/2011 10/24/2016 Chest pain 11/22/2011 10/24/2016 NSTEMI (non-ST elevated myocardial infarction) ( [facility]) 11/22/2011 12/30/2016 Acute coronary syndrome ([facility]) 09/15/2009 HTN, goal below 130/80 06/14/2009 2 Overview: Per HTN Taxonomy. Type 2 diabetes mellitus wit h hemoglobin A1c goal of less than 7.0% ([facility]) 03/02/2009 03/27/2011 Overview: Modified per Diabetes protocol #14. ICD-10 update of inactive term EXAMINATION OF PARTICIPANT IN CLINICAL TRIAL-gen omics 11/17/2008 09/01/2009 Overview: Renamed Per Clinical Trials Billing Project. Study Titile: Genomic Markers for Patients with Cardiovascular Disease Project #[id number] PI: Francoise Tomlin MD Please call [phone] with study related questions INTERFACED RESULT 11/17/2008 10/17/2011 GENOMICS CARDIO RESEARCH OTHER*[id number] 200806/25/2016 Overview: Renamed Per Clinical Trials Billing Project. Study Titile: Genomic Markers for Patients with Cardiovascular Disease Project #[id number] PI: Francoise Tomlin MD Please call [phone] with study related questions CLASS I-II ANGINA PECTORIS, STABLE 04/26/2002 09/15/2009 Mixed dyslipidemia 04/26/2002 05/01/2009 Overview: Per Lipid Taxonomy. HTN, goal below 140/90 08/23/1998 01/27/201 0 [...] Comments:quit 30 yrs ago, wh ile in [employer] for 4 years Alcohol Use Drinks/Week oz/Week Comments Yes a beer per contreras alonzo Sex Assigned at Date Recorded Not on file as of this encounter Plan of Treatment Upcoming Encounters Date Type Specialty Care Team Description 10/28/2017 Office Visit Cardiology Azael Lozano MD [address] [place] [address] [phone] 10/30/2017 Office Visit Family Practice Sylvia Rojas MD [address] [place] [address] [phone] Health Maintenance Due Date Last Done Comments [...] not stated as uncontrolled in this encounter Insurance Payer Benefit Plan / Group Subscriber ID Type Phone Address [employer] VANESSA SANTOYO [id number] 1 as of this encounter
--- OUTSIDE RECORDS SUMMARY | 2023-02-21 02:55 | External Medical Summary ---
Author Name Unknown Address 132 [facility] [place] [address] Phone Organization K0G:[facility] [address] [place] [address] [place] [address] Laboratory Report Ordering Provider Test Date Status ARI MAHAN 05/01/2017 14:43:00 Final Observation Date Value Abnormality Reference Status Calcium 05/01/2017 15:28 9.9 8.4-10.2 Fin al Performing Location [facility] Stephanie [place] [address]
--- OUTSIDE RECORDS SUMMARY | 2023-02-21 02:56 | External Medical Summary ---
Author Name Unknown Address [facility] [address] [place] [address] [phone] Phone Organization K01:[place] [address] [address] [place] [id number] Laboratory Report Ordering Provider Test Date Status ARI MAHAN 10/24/2016 11:53:00 Final Observation Date Value Abnormality Reference Status Albumin, Urine 10/24/2016 22:01 4.82 Final Creatinine [Moles/volume] in Urine 10/24/2016 22:01 185 Final Microalbumin / Creatinine Ratio 10/24/2016 22:01 26 <30 Final Performing Location [facility] [address] [facility] [address]
--- OUTSIDE RECORDS SUMMARY | 2023-02-21 02:56 | External Medical Summary ---
Author Name Unknown Address [address] [place] [address] Phone Organization K0G:[facility] Stephanie Najera [address] [place] [address] Laboratory Report Ordering Provider Test Date Status ARI MAHAN MD 01/18/2016 11:30:00 Final Obs # Observation Date Value Abnormality Reference Status Performing Location 0 BUN 01/18/2016 12:31 22 Above high normal 6-20 Final [facility] [place] [address] 1 Creatinine 01/18/2016 12:31 1.1 0.6-1.2 Final
--- OUTSIDE RECORDS SUMMARY | 2023-02-21 02:56 | External Medical Summary ---
Author Name Unknown Address 132 [facility] [place] [address] Phone Organization K0G:[facility] [address] [place] [address] [place] [address] Laboratory Report Ordering Provider Test Date Status ARI MAHAN 10/24/2016 11:50:00 Final Observation Date Value Abnormality Reference Status BUN 10/24/2016 13:58 32 Above high normal 6-20 Final Creatinine 10/24/2016 13:58 1.3 Above high normal 0.6- 1.2 Final Performing Location [facility] Stephanie Najera [address] [place] [address]
--- OUTSIDE RECORDS SUMMARY | 2023-02-21 02:56 | External Medical Summary ---
Author Name Unknown Address [address] [place] [address] Phone Organization K0G:[facility] Stephanie Najera [address] [place] [address] Laboratory Report Ordering Provider Test Date Status ARI MAHAN MD 01/18/2016 11:30:00 Final Obs # Observation Date Value Abnormality Reference Status Performing Location 0 WBC, Total 01/18/2016 11:43 7.65 4.00-10.80 Final [facility] Stephanie Najera [address] [place] [address] 1 RBC 01/18/2016 11:43 4.25 Below low normal 4.50-5.25 Final 2 Hemoglobin 01/18/2016 11:43 14.2 14.0-16.8 Final 3 HCT 01/18/2016 11:43 39.2 Below low normal 40.0-48.4 Final 4 MCV 01/18/2016 11:43 92.2 82.0-99.5 Final 5 MCH 01/18/2016 11:43 33.4 27.0-34.0 Final 6 MCHC 01/18/2016 11:43 36.2 Above high normal 32.0-36.0 Final 7 RDW 01/18/2016 11:43 12.4 11.5-15.5 Final 8 Platelets 01/18/2016 11:43 161 140-400 Final 9 MPV 01/18/2016 11:43 9.0 6.6-11.1 Final
--- OUTSIDE RECORDS SUMMARY | 2023-02-21 02:56 | External Medical Summary ---
Author Name Unknown Address [facility] [address] [place] [phone] Phone Organization K01:[facility] [address] [place] [id number] Laboratory Report Ordering Provider Test Date Status NATE WILLARD 01/01/2017 13:44:00 Final Observation Date Value Abnormality Reference Status TSH 01/01/2017 23:22 2.81 0.27-4.2 Fin al Performing Location [address] [address]
--- OUTSIDE RECORDS SUMMARY | 2023-02-21 02:56 | External Medical Summary ---
Author Name Unknown Address [facility] [place] [address] Phone Organization K01:[place] [address] [address] [place] [phone] Laboratory Report Ordering Provider Test Date Status ARI MAHAN 10/24/2016 11:50:00 Final Observation Date Value Abnormality Reference Status HbA1C 10/24/2016 17:01 6.5 Above high normal 4.0-6 .4 Final Performing Location [place] [address] [address] [facility] [address]
--- OUTSIDE RECORDS SUMMARY | 2023-02-21 02:56 | External Medical Summary ---
Author Name Unknown Address [facility] [address] [place] [phone] Phone Organization K01:[place] [address] [address] [facility] [address] Laboratory Report Ordering Provider Test Date Status ARI MAHAN MD 01/18/2016 11:30:00 Final Obs # Observation Date Value Abnormality Reference Status Performing Location 0 HbA1C 01/18/2016 19:16 7.0 Above high normal 4.0-6.4 Final [facility] [address] [facility] [address]
--- OUTSIDE RECORDS SUMMARY | 2023-02-21 02:56 | External Medical Summary ---
Author Name Unknown Address [address] [phone] Phone Organization K01:[facility] [address] [id number] Laboratory Report Ordering Provider Test Date Status ARI MAHAN 10/24/2016 11:50:00 Final Observation Date Value Abnormality Reference Status LDL, (direct) 10/24/2016 16:58 50 0-129 Final Performing Location [facility] [address] [facility] [address]
--- OUTSIDE RECORDS SUMMARY | 2023-02-21 02:56 | External Medical Summary ---
Author Name Unknown Address [address] [place] [address] Phone Organization K01:[facility] [address] [phone] Laboratory Report Ordering Provider Test Date Status ARI MAHAN 01/01/2017 13:44:00 Final Observation Date Value Abnormality Reference Status Iron 01/01/2017 23:11 64 45-176 Fin al Iron-binding capacity 01/01/2017 23:11 286 2 50-425 Final Transferrin Sat % 01/01/2017 23:11 22 15-55 Final Performing Location [facility] [address] [facility] [address]
--- OUTSIDE RECORDS SUMMARY | 2023-02-21 02:57 | External Medical Summary ---
Author Name Unknown Organization K09:[facility] [place] [address] [facility] [address] Laboratory Report Ordering Provider Test Date Status KALLI CHAPMAN MD 07/13/2013 12:24:00-0500 Final Obs # Observation Date Value ABNL Reference Status Pe rforming Location 1 BUN 07/13/2013 15:32-0500 19 6-20 mg/dL Final 2 Creatinine 07/13/2013 15:32-0500 1.1 0.7-1.3 mg/dL Final GFR should be used to assess renal function. Plasma/Serum creatinine may not be able to properly reflect renal function in some cases.
--- OUTSIDE RECORDS SUMMARY | 2023-02-21 02:57 | External Medical Summary ---
Author Name Unknown Organization K01:[facility], [address] [address] Laboratory Report Ordering Provider Test Date Status KALLI CHAPMAN MD 01/11/2014 09:59:00-0400 Final Obs # Observation Date Value ABNL Reference Status Pe rforming Location 1 HbA1C 01/11/2014 21:10-0400 6.6 H 4.0-6.4 % Final 2 Glucose, estimated average 01/11/2014 21:10-0400 143 H <126 MG/DL Final
--- OUTSIDE RECORDS SUMMARY | 2023-02-21 02:57 | External Medical Summary ---
Author Name Unknown Organization K01:[facility], [address] [address] Laboratory Report Ordering Provider Test Date Status KALLI CHAPMAN MD 07/13/2013 14:33:00-0500 Final Obs # Observation Date Value ABNL Reference Status Pe rforming Location 1 Albumin, Urine 07/14/2013 02:51-0500 5.20 H 0-2 mg/dL Final 2 Creatinine, Random Urine 07/14/2013 02:51-0500 32 mg/dL Final 3 Microalbumin / Creatinine Ratio 07/14/2013 02:51-0500 163 H <31 mg/g creat Final Normal: 0- 29 mg/g creatinine High: 30-300 mg/g creatinine Very High and Nephrotic: >300 mg/g creatinine
--- OUTSIDE RECORDS SUMMARY | 2023-02-21 02:57 | External Medical Summary ---
Author Name Unknown Organization K01:[facility], [address] [address] Laboratory Report Ordering Provider Test Date Status KALLI CHAPMAN MD 07/13/2013 12:24:00-0500 Final Obs # Observation Date Value ABNL Reference Status Pe rforming Location 1 LDL, (direct) 07/14/2013 02:38-0500 41 0-129 mg/dL Final LDL CHOLESTEROL REFERENCE RANGES(mg/dL) <100 OPTIMAL GOAL FOR HIGH RISK PATIENTS 100-129 NEAR OR ABOVE NORMAL 130-159 BORDERLINE HIGH 160-189 HIGH >189 VERY HIGH
--- OUTSIDE RECORDS SUMMARY | 2023-02-21 02:57 | External Medical Summary ---
Author Name Unknown Organization K01:[facility], [address] [address] Laboratory Report Ordering Provider Test Date Status KALLI CHAPMAN MD 07/13/2013 12:24:00-0500 Final Obs # Observation Date Value ABNL Reference Status Pe rforming Location 1 HbA1C 07/13/2013 20:29-0500 7.8 H 3.4-6.4 % Final 2 Glucose, estimated average 07/13/2013 20:29-0500 177 H <126 MG/DL Final
--- OUTSIDE RECORDS SUMMARY | 2023-02-21 02:57 | External Medical Summary ---
Author Name Unknown Organization K01:[facility], [address] [address] Laboratory Report Ordering Provider Test Date Status KALLI CHAPMAN MD 01/13/2013 13:26:00-0400 Final Obs # Observation Date Value ABNL Reference Status Pe rforming Location 1 LDL, (direct) 01/13/2013 22:45-0400 40 0-129 mg/dL Final LDL CHOLESTEROL REFERENCE RANGES(mg/dL) <100 OPTIMAL GOAL FOR HIGH RISK PATIENTS 100-129 NEAR OR ABOVE NORMAL 130-159 BORDERLINE HIGH 160-189 HIGH >189 VERY HIGH
--- OUTSIDE RECORDS SUMMARY | 2023-02-21 02:57 | External Medical Summary ---
Author Name Unknown Organization K01:[facility], [address] [address] Laboratory Report Ordering Provider Test Date Status KALLI CHAPMAN MD 01/13/2013 13:26:00-0400 Final Obs # Observation Date Value ABNL Reference Status Pe rforming Location 1 BUN 01/13/2013 22:45-0400 21 H 6-20 mg/dL Final 2 Creatinine 01/13/2013 22:45-0400 1.1 0.7-1.3 mg/dL Final GFR should be used to assess renal function. Plasma/Serum creatinine may not be able to properly reflect renal function in some cases.
--- OUTSIDE RECORDS SUMMARY | 2023-02-21 02:57 | External Medical Summary ---
Author Name Unknown Address [address] [id number] Phone Organization K01:[facility] [address] [facility] [address] Laboratory Report Ordering Provider Test Date Status ARI MAHAN MD [id number] Final Obs # Observation Date Value Abnormality Reference Status Performing Location 0 HbA1C [id number] 7.0 Above high normal 4.0-6.4 Final [facility] [address] [facility] [address]
--- OUTSIDE RECORDS SUMMARY | 2023-02-21 02:57 | External Medical Summary ---
Author Name Unknown Address [address] [place] [address] Phone Organization K01:[facility] [address] [address] Laboratory Report Ordering Provider Test Date Status ARI MAHAN MD [id number] Final Obs # Observation Date Value Abnormality Reference Status Performing Location 0 LDL, (direct) [id number] 48 0-129 Final [facility] [address] [facility] [address]
--- OUTSIDE RECORDS SUMMARY | 2023-02-21 02:57 | External Medical Summary ---
Author Name Unknown Organization K09:[facility], [address], [place] [address] Laboratory Report Ordering Provider Test Date Status KALLI CHAPMAN MD 07/13/2013 12:24:00-0500 Final Obs # Observation Date Value ABNL Reference Status Pe rforming Location 1 WBC 07/13/2013 14:56-0500 7.05 4.00-10.80 K/uL Final 2 RBC 07/13/2013 14:56-0500 4.86 4.50-5.25 M/uL Final 3 HGB 07/13/2013 14:56-0500 15.7 14.0-16.5 g/dL Final 4 HCT 07/13/2013 14:56-0500 44.9 40.0-47.0 % Final 5 MCV 07/13/2013 14:56-0500 92.4 82.0-99.5 fL Final 6 MCH 07/13/2013 14:56-0500 32.3 27.0-34.0 pg Final 7 MCHC 07/13/2013 14:56-0500 35.0 32.0-36.0 g/dL Final 8 RDW 07/13/2013 14:56-0500 12.7 11.5-15.5 % Final 9 PLT 07/13/2013 14:56-0500 184 140-400 K/uL Final 10 MPV 07/13/2013 14:56-0500 9.9 6.6-11.1 fL Final
--- OUTSIDE RECORDS SUMMARY | 2023-02-21 02:57 | External Medical Summary ---
Author Name Unknown Address [address] [id number] Phone Organization K01:[facility] [address] [address] Laboratory Report Ordering Provider Test Date Status ARI MAHAN MD [id number] Final Obs # Observation Date Value Abnormality Reference Status Performing Location 0 Albumin, Urine [id number] 6.03 [facility] [address] [facility] [address] 1 Creatinine, Urine [id number] 75 Final [facility] [address] [facility] [address] 2 Microalbumin / Creatinine Ratio [id number] 80 Above high normal <30 Final [facility] [address] [facility] [address]
--- OUTSIDE RECORDS SUMMARY | 2023-02-21 02:57 | External Medical Summary ---
Author Name Unknown Address [address] [place] [address] Phone Organization K0G:[facility] [address] [place] [address] Laboratory Report Ordering Provider Test Date Status ARI MAHAN MD [id number] Final Obs # Observation Date Value Abnormality Reference Status Performing Location 0 BUN [id number] 29 Above high normal 6-20 Final [facility] [address] [place] [address] 1 Creatinine [id number] 1.2 0.7-1.3 Final [facility] [address] [place] [address]
--- OUTSIDE RECORDS SUMMARY | 2023-02-21 02:57 | External Medical Summary ---
Author Name Unknown Organization K01:[facility], [address] [address] Laboratory Report Ordering Provider Test Date Status KALLI CHAPMAN MD 01/13/2013 13:26:00-0400 Final Obs # Observation Date Value ABNL Reference Status Pe rforming Location 1 HbA1C 01/13/2013 22:37-0400 6.9 H 3.4-6.4 % Final 2 Glucose, estimated average 01/13/2013 22:37-0400 151 H <126 MG/DL Final
--- OUTSIDE RECORDS SUMMARY | 2023-02-21 02:59 | External Medical Summary ---
Author Name ARI MICHAEL Organization K01:[facility], [address] [address] Support Name Relationship Address Phone ARI MICHAEL, KALLI DE LEON Unknown Unavailabl e Laboratory Report Ordering Provider Test Date Status KALLI CHAPMAN MD 07/10/2012 09:46:00-0500 Final Obs # Observation Date Value ABNL Reference Status Pe rforming Location 1 LDL, (direct) 07/10/2012 18:03-0500 41 0-129 mg/dL Final LDL CHOLESTEROL REFERENCE RANGES(mg/dL) <100 OPTIMAL GOAL FOR HIGH RISK PATIENTS 100-129 NEAR OR ABOVE NORMAL 130-159 BORDERLINE HIGH 160-189 HIGH >189 VERY HIGH
--- OUTSIDE RECORDS SUMMARY | 2023-02-21 02:59 | External Medical Summary ---
Author Name KALLI CHAPMAN MD Organization K0G:[facility], [address] [place] [address] Support Name Relationship Address Phone KALLI CHAPMAN MD PROV Unknown Unavailab le Laboratory Report Ordering Provider Test Date Status KALLI CHAPMAN MD 03/27/2011 11:0500 Final Obs # Observation Date Value ABNL Reference Status Pe rforming Location 1 HOURS FASTING 03/27/20 11 11:02-05 00 12 hours Final 2 TRIGLYCERIDES 03/27/20 11 18:36-05 00 144 <200 mg/dL Final 3 TRIGLYCERIDES 03/27/20 11 18:36-05 00 Final 4 TRIGLYCERIDES 03/27/20 11 18:36-05 00 TRIGLYCERIDE REFERENCE RANGES (mg/dL) Final 5 TRIGLYCERIDES 03/27/20 11 18:36-05 00 Final 6 TRIGLYCERIDES 03/27/20 11 18:36-05 00 <150 NORMAL Final 7 TRIGLYCERIDES 03/27/20 11 18:36-05 00 150-199 BORDERLINE HIGH Final 8 TRIGLYCERIDES 03/27/20 11 18:36-05 00 200-499 HIGH Final 9 TRIGLYCERIDES 03/27/20 11 18:36-05 00 >499 VERY HIGH Final 10 Cholesterol 03/27/20 11 18:36-05 00 117 <200 mg/dL Final 11 HDL 03/27/20 11 18:36-05 00 38 L 40-59 mg/dL Final 12 CHOL/HDL RATIO 03/27/20 11 18:36-05 00 3.1 Final 13 LDL (CALCULATED) 03/27/20 11 18:36-05 00 50 0-129 mg/dL Final 14 LDL (CALCULATED) 03/27/20 11 18:36-05 00 Final 15 LDL (CALCULATED) 03/27/20 11 18:36-05 00 LIPID PANEL REFERENCE RANGES (mg/dL) Final 16 LDL (CALCULATED) 03/27/20 11 18:36-05 00 Final 17 LDL (CALCULATED) 03/27/20 11 18:36-05 00 LDL CHOLESTEROL Final 18 LDL (CALCULATED) 03/27/20 11 18:36-05 00 <100 OPTIMAL GOAL FOR HIGH RISK PATIENTS Final 19 LDL (CALCULATED) 03/27/20 11 18:36-05 00 100-129 NEAR OR ABOVE NORMAL Final 20 LDL (CALCULATED) 03/27/20 11 18:36-05 00 130-159 BORDERLINE HIGH Final 21 LDL (CALCULATED) 03/27/20 11 18:36-05 00 160-189 HIGH Final 22 LDL (CALCULATED) 03/27/20 11 18:36-05 00 >189 VERY HIGH Final 23 LDL (CALCULATED) 03/27/20 11 18:36-05 00 Final 24 LDL (CALCULATED) 03/27/20 11 18:36-05 00 TOTAL CHOLESTEROL Final 25 LDL (CALCULATED) 03/27/20 11 18:36-05 00 <200 DESIRABLE Final 26 LDL (CALCULATED) 03/27/20 11 18:36-05 00 200-239 BORDERLINE HIGH Final 27 LDL (CALCULATED) 03/27/20 11 18:36-05 00 >239 HIGH Final 28 LDL (CALCULATED) 03/27/20 11 18:36-05 00 Final 29 LDL (CALCULATED) 03/27/20 11 18:36-05 00 HDL [id number] Final 30 LDL (CALCULATED) 03/27/20 11 18:36-05 00 <40 LOW Final 31 LDL (CALCULATED) 03/27/20 11 18:36-05 00 40-59 NORMAL Final 32 LDL (CALCULATED) 03/27/20 11 18:36-05 00 >59 HIGH Final
--- OUTSIDE RECORDS SUMMARY | 2023-02-21 02:59 | External Medical Summary ---
Author Name CHAPMAN MDKALLI Organization K09:[facility], [address] , [place] [address] Support Name Relationship Address Phone ARI MICHAELKALLI PROV Unknown Unavailab le Laboratory Report Ordering Provider Test Date Status ARI MICHAELKALLI Dilma 03/27/2011 11:01-0500 Final Obs # Observation Date Value ABNL Reference Status Pe rforming Location 1 BUN 1 15:05-050 0 20 6-20 mg/dL Final 2 Creatinine 1 15:05-050 0 1.1 0.7-1.3 mg/dL Final 3 Creatinine 1 15:05-050 0 GFR should be used to assess renal function. Plasma/Serum creatinine may not be able to properly reflect renal function in some cases. Final 4 SODIUM 1 15:05-050 0 133 L 135-146 mmol/L Final 5 POTASSIUM 1 15:05-050 0 4.9 3.5-5.1 mmol/L Final 6 Cl 1 15:05-050 0 95 L 98-111 mmol/L Final 7 CO2 1 15:05-050 0 29 22-32 mmol/L Final 8 GLUCOSE 1 15:05-050 0 188 H 70-120 mg/dL Final 9 Albumin 1 15:05-050 0 4.5 3.8-5.0 g/dL Final 10 AST (Aspartate aminotransferase ) 1 15:05-050 0 35 10-50 U/L Final 11 Alk Phos 1 15:05-050 0 47 0-153 U/L Final 12 Bilirubin, Total 1 15:05-050 0 0.8 0.3-1.3 mg/dL Final 13 Calcium 1 15:05-050 0 10.4 8.3-10.5 mg/dL Final 14 PROTEIN 1 15:05-050 0 7.6 6.0-8.3 g/dL Final 15 ALT (Alanine aminotransferase ) 1 15:05-050 0 34 10-50 U/L Final 16 Anion gap 1 15:05-050 0 9 7-15 mmol/L Final 17 GFR ESTIMATED 1 15:05-050 0 >60.0 >60 mL/min Final
--- OUTSIDE RECORDS SUMMARY | 2023-02-21 02:59 | External Medical Summary ---
Author Name Unknown Organization K01:[facility], [address] [address] Support Name Relationship Address Phone KALLI CHAPMAN MD PROV Unknown Unavailab le Laboratory Report Ordering Provider Test Date Status KALLI CHAPMAN MD 09/24/2010 11:53-0400 Final Obs # Observation Date Value ABNL Reference Status Pe rforming Location 1 HbA1C 09/24/2010 18:19-0400 9.3 H 3.4-6.4 % Final 2 Glucose, estimated average 09/24/2010 18:19-0400 220 H <126 MG/DL Final
--- OUTSIDE RECORDS SUMMARY | 2023-02-21 02:59 | External Medical Summary ---
Author Name Unknown Organization K01:[facility], [address] [address] Support Name Relationship Address Phone KALLI CHAPMAN MD PROV Unknown Unavailab le Laboratory Report Ordering Provider Test Date Status KALLI CHAPMAN MD 09/24/2010 13:40-0400 Final Obs # Observation Date Value ABNL Reference Status Pe rforming Location 1 Albumin, Urine 09/24/2010 20:15-0400 1.80 0-2 mg/dL Final 2 Creatinine, Random Urine 09/24/2010 20:15-0400 55 mg/dL Final 3 Microalbumin Ratio 09/24/2010 20:15-0400 33 H <31 mg/g creat Final
--- OUTSIDE RECORDS SUMMARY | 2023-02-21 02:59 | External Medical Summary ---
Author Name ARI MICHAEL Organization K01:[facility], [address] [address] Support Name Relationship Address Phone KALLI CHAPMAN MD [facility] Unknown Unavailabl e Laboratory Report Ordering Provider Test Date Status KALLI CHAPMAN MD 07/10/2012 10:53:00-0500 Final Obs # Observation Date Value ABNL Reference Status Pe rforming Location 1 Albumin, Urine 07/10/2012 20:48-0500 3.60 H 0-2 mg/dL Final 2 Creatinine, Random Urine 07/10/2012 20:48-0500 68 mg/dL Final 3 Microalbumin / Creatinine Ratio 07/10/2012 20:48-0500 53 H <31 mg/g creat Final Normal: 0- 29 mg/g creatinine High: 30-300 mg/g creatinine Very High and Nephrotic: >300 mg/g creatinine
--- OUTSIDE RECORDS SUMMARY | 2023-02-21 02:59 | External Medical Summary ---
Author Name ARI MICHAELKALLI Dilma Organization K09:[facility], [address] [facility] [place] [facility] [address] Support Name Relationship Address Phone ARI MICHAELKALLI Dilma PROV Unknown Unavailab le Laboratory Report Ordering Provider Test Date Status KALLI CHAPMAN MD 03/27/2011 11:050 Final Obs # Observation Date Value ABNL Reference Status Pe rforming Location 1 WBC 03/27/2011 14:55-0500 6.50 4.00-10.80 K/uL Final 2 RBC 03/27/2011 14:55-0500 4.75 4.50-5.25 M/uL Final 3 HGB 03/27/2011 14:55-0500 15.3 14.0-16.5 g/dL Final 4 HCT 03/27/2011 14:55-0500 42.4 40.0-47.0 % Final 5 MCV 03/27/2011 14:55-0500 89.3 82.0-99.5 fL Final 6 MCH 03/27/2011 14:55-0500 32.2 27.0-34.0 pg Final 7 MCHC 03/27/2011 14:55-0500 36.1 H 32.0-36.0 g/dL Final 8 RDW 03/27/2011 14:55-0500 12.9 11.5-15.5 % Final 9 PLATELET COUNT 03/27/2011 14:55-0500 146 140-400 K/uL Final 10 MPV 03/27/2011 14:55-0500 8.6 6.6-11.1 fL Final 11 diff type 03/27/2011 14:55-0500 AUTO Final 12 SEGS 03/27/2011 14:56-0500 56 40-75 % Final 13 LYMPHS 03/27/2011 14:56-0500 36 18-42 % Final 14 MONOS 03/27/2011 14:56-0500 8 1-11 % Final 15 ABS. SEGS 03/27/2011 14:56-0500 3.64 1.8-7.7 K/uL Final 16 ABS. LYMPHS 03/27/2011 14:56-0500 2.34 1.0-4.8 K/uL Final 17 ABS. MONOS 03/27/2011 14:56-0500 0.52 0.0-1.1 K/uL Final
--- OUTSIDE RECORDS SUMMARY | 2023-02-21 02:59 | External Medical Summary ---
Author Name ARI MICHAEL Organization K01:[facility], [address] [address] Support Name Relationship Address Phone KALLI CHAPMAN MD Unknown Unavailabl e Laboratory Report Ordering Provider Test Date Status KALLI CHAPMAN MD 07/10/2012 09:46:00-0500 Final Obs # Observation Date Value ABNL Reference Status Pe rforming Location 1 HDL 07/10/2012 18:03-0500 40 >39 mg/dL Final HDL CHOLESTEROL REFERENCE RANGES(mg/dL) <40 LOW(UNDESIRABLE) >59 HIGH(DESIRABLE)
--- OUTSIDE RECORDS SUMMARY | 2023-02-21 02:59 | External Medical Summary ---
Author Name ARI MICHAEL Organization K01:[facility], [address] [address] Support Name Relationship Address Phone ARI MICHAEL, KALLI DE LEON Unknown Unavailabl e Laboratory Report Ordering Provider Test Date Status KALLI CHAPMAN MD 07/10/2012 09:46:00-0500 Final Obs # Observation Date Value ABNL Reference Status Pe rforming Location 1 Cholesterol 07/10/2012 18:03-0500 95 <200 mg/dL Final TOTAL CHOLESTEROL REFERENCE RANGES(mg/dL) <200 DESIRABLE 200-239 BORDERLINE HIGH >239 HIGH
--- OUTSIDE RECORDS SUMMARY | 2023-02-21 02:59 | External Medical Summary ---
Author Name Unknown Organization [employer] [facility] tem Support Name Relationship Address Phone KALLI CHAPMAN MD PROV Unknown Unavailab le Laboratory Report Ordering Provider Test Date Status KALLI CHAPMAN MD 03/26/2010 11:42-0500 F Obs # Observation Date Value ABNL Reference Status Pe rforming Location 1 Hgb A1c Fr Bld 03/26/2010 19:49-0500 8.0 H 3.4-6.4 % Final 2 Mean Glucose Bld gHb Est-mCnc 03/26/2010 19:49-0500 183 H <126 MG/DL Final
--- OUTSIDE RECORDS SUMMARY | 2023-02-21 02:59 | External Medical Summary ---
Author Name Unknown Organization K09:[facility], [address], [place] [address] Support Name Relationship Address Phone ARI KALLI PROV Unknown Unavailab le Laboratory Report Ordering Provider Test Date Status CHAPMAN KALLI 09/24/2010 11:53-0400 Final Obs # Observation Date Value ABNL Reference Status Pe rforming Location 1 BUN 09/24/2010 16:08-0400 23 H 6-20 mg/dL Final 2 Creatinine 09/24/2010 16:08-0400 1.1 0.7-1.5 mg/dL Final 3 Sodium 09/24/2010 16:08-0400 135 135-146 mmol/L Final 4 Potassium 09/24/2010 16:08-0400 4.8 3.5-5.1 mmol/L Final 5 Cl 09/24/2010 16:08-0400 96 L 98-111 mmol/L Final 6 CO2 09/24/2010 16:08-0400 29 22-32 mmol/L Final 7 Glucose 09/24/2010 16:08-0400 244 H 70-120 mg/dL Final 8 Albumin, Serum 09/24/2010 16:08-0400 4.6 3.8-5.0 g/dL Final 9 AST (Aspartate aminotransferase) 09/24/2010 16:08-0400 31 10-50 U/L Final 10 Alk Phos 09/24/2010 16:08-0400 47 25-125 U/L Final 11 Bilirubin, Total 09/24/2010 16:08-0400 0.6 0.3-1.3 mg/dL Final 12 Calcium 09/24/2010 16:08-0400 10.6 H 8.3-10.5 mg/dL Final 13 Protein 09/24/2010 16:08-0400 7.2 6.0-8.3 g/dL Final 14 ALT (Alanine aminotransferase) 09/24/2010 16:08-0400 31 10-50 U/L Final 15 Anion gap 09/24/2010 16:08-0400 10 7-15 mmol/L Final 16 GFR / 1.73 sq M.predicted 09/24/2010 16:08-0400 >60.0 >60 mL/min Final
--- OUTSIDE RECORDS SUMMARY | 2023-02-21 02:59 | External Medical Summary ---
Author Name ARI MICHAEL Organization K01:[facility], [address] [address] Support Name Relationship Address Phone KALLI CHAPMAN MD PROV Unknown Unavailabl e Laboratory Report Ordering Provider Test Date Status KALLI CHAPMAN MD 07/10/2012 09:46:00-0500 Final Obs # Observation Date Value ABNL Reference Status Pe rforming Location 1 HbA1C 07/10/2012 19:42-0500 6.8 H 3.4-6.4 % Final 2 Glucose, estimated average 07/10/2012 19:42-0500 148 H <126 MG/DL Final
--- OUTSIDE RECORDS SUMMARY | 2023-02-21 02:59 | External Medical Summary ---
Author Name Unknown Organization K01:[facility], [address] [address] Support Name Relationship Address Phone KALLI CHAPMAN MD PROV Unknown Unavailab le Laboratory Report Ordering Provider Test Date Status KALLI CHAPMAN MD 09/24/2010 11:53-0400 Final Obs # Observation Date Value ABNL Reference Status Pe rforming Location 1 LDL, Direct Measure 09/24/2010 18:38-0400 40 0-129 mg/dL Final
--- OUTSIDE RECORDS SUMMARY | 2023-02-21 02:59 | External Medical Summary ---
Author Name KALLI CHAPMAN MD Organization K01:[facility], [address] [facility] [place] [address] Support Name Relationship Address Phone KALLI CHAPMAN MD PROV Unknown Unavailab le Laboratory Report Ordering Provider Test Date Status KALLI CHAPMAN MD 03/27/2011 11:01-0500 Final Obs # Observation Date Value ABNL Reference Status Pe rforming Location 1 HEMOGLOBIN, A1C 03/27/2011 20:51-0500 7.9 H 3.4-6.4 % Final 2 EST AVG GLUCOSE 03/27/2011 20:51-0500 180 H <126 MG/DL Final
--- OUTSIDE RECORDS SUMMARY | 2023-02-21 02:59 | External Medical Summary ---
Author Name ARI MICHAEL Organization K01:[facility], [address] [address] Support Name Relationship Address Phone KALLI CHAPMAN MD MOISES Unknown Unavailabl e Laboratory Report Ordering Provider Test Date Status KALLI CHAPMAN MD 07/10/2012 09:46:00-0500 Final Obs # Observation Date Value ABNL Reference Status Pe rforming Location 1 BUN 07/10/2012 18:03-0500 21 H 6-20 mg/dL Final 2 Creatinine 07/10/2012 18:03-0500 1.1 0.7-1.3 mg/dL Final GFR should be used to assess renal function. Plasma/Serum creatinine may not be able to properly reflect renal function in some cases.
--- OUTSIDE RECORDS SUMMARY | 2023-02-21 03:00 | External Medical Summary ---
Author Name Unknown Organization [employer] s tem Support Name Relationship Address Phone ARI MICHAELKALLI PROV Unknown Unavailab le Laboratory Report Ordering Provider Test Date Status ARI MICHAELKALLI Dilma 03/26/2010 11:42-0500 F Obs # Observation Date Value ABNL Reference Status Pe rforming Location 1 BUN [facility]Pl-[facility] 03/26/2010 15:33-0500 25 H 6-20 mg/dL Final 2 Creat [facility]Pl-[facility] 03/26/2010 15:33-0500 1.1 0.7-1.5 mg/dL Final 3 Sodium SerPl-[facility] 03/26/2010 15:33-0500 135 135-146 mmol/L Final 4 Potassium [facility] 03/26/2010 15:33-0500 4.1 3.5-5.1 mmol/L Final 5 Chloride [facility] 03/26/2010 15:33-0500 97 L 98-111 mmol/L Final 6 CO2 [facility]Pl-[facility] 03/26/2010 15:33-0500 31 22-32 mmol/L Final 7 Glucose [facility]Pl-[facility] 03/26/2010 15:33-0500 112 70-120 mg/dL Final 8 Albumin [facility] 03/26/2010 15:33-0500 4.5 3.8-5.0 g/dL Final 9 AST [facility]Pl-[facility] 03/26/2010 15:33-0500 32 10-50 U/L Final 10 ALP [facility]Pl-[facility] 03/26/2010 15:33-0500 49 25-125 U/L Final 11 Bilirub [facility]Pl-[facility] 03/26/2010 15:33-0500 0.7 0.3-1.3 mg/dL Final 12 Calcium [facility] 03/26/2010 15:33-0500 10.6 H 8.3-10.5 mg/dL Final 13 Prot [facility] 03/26/2010 15:33-0500 7.3 6.0-8.3 g/dL Final 14 ALT SerPl-cCnc 03/26/2010 15:33-0500 28 10-50 U/L Final 15 Anion Gap SerPl-sCnc 03/26/2010 15:33-0500 7 7-15 mEq/L Final 16 Pred GFR SerPl MDRD-vRate 03/26/2010 15:33-0500 >60.0 >60 mL/min Final
--- OUTSIDE RECORDS SUMMARY | 2023-02-21 03:00 | External Medical Summary ---
Author Name Unknown Organization [facility] tem Support Name Relationship Address Phone KALLI CHAPMAN MD PROV Unknown Unavailab le Laboratory Report Ordering Provider Test Date Status KALLI CHAPMAN MD 03/26/2010 11:42-0500 F Obs # Observation Date Value ABNL Reference Status Pe rforming Location 1 LDLc SerPl Direct Assay-[facility] 03/26/2010 18:24-0500 49 0-129 mg/dL Final 2 LDLc SerPl Direct Assay-[facility] 03/26/2010 18:24-0500 Final RESULTS RECHECKED
== END 2023-02-14 16:46 | DRG 74 ==
LOC: ED 11:56 → EDINP 14:37 → SUATTDRO 14:37 → 2N 17:29

== ENCOUNTER 2023-03-29 21:00 | Inpatient (IN) ==
[2023-03-29] MEDS ORDERED: SODIUM CHLORIDE 0.9% 1,000 ML IV SCH (21:15)
[2023-03-29 21:48] LABS: Basophils # (auto) 0.03 K/uL (0.00-0.20); Basophils % (auto) 0.4 %; Eosinophils # (auto) 0.09 K/uL (0.00-0.50); Eosinophils % (auto) 1.1 %; Hematocrit (blood only) 28.1 % (42.0-52.0); Hemoglobin 9.8 g/dl (14.0-18.0); Immature Granulocytes # (auto) 0.03 K/uL (0.01-0.20); Immature Granulocytes % (auto) 0.4 %; Lymphocytes # (auto) 1.25 K/uL (1.20-3.40); Lymphocytes % (auto) 15.5 %; Mean Corpuscular Hemoglobin 33.6 pg (25.0-34.0); Mean Corpuscular Hgb Conc 34.9 g/dL (32.0-36.0); Mean Corpuscular Volume 96.2 fL (80.0-100.0); Mean Platelet Volume 9.7 fL (9.4-12.4); Monocytes # (auto) 0.69 K/uL (0.11-0.59); Monocytes % (auto) 8.6 %; Neutrophils # (auto) 5.95 K/uL (1.40-6.50); Platelet Count 177 K/uL (130-400); RDW Coefficient of Variation 13.7 % (11.5-14.5); RDW Standard Deviation 48.5 fL (36.4-46.3); Red Blood Count 2.92 M/uL (4.70-6.10); White Blood Count 8.04 K/ul (4.8-10.8)
[2023-03-29 22:03] LABS: Albumin Globulin Ratio 1.1 (0.9-2); Albumin Level 3.6 gm/dl (3.4-5.0); BUN Creatinine Ratio 24.1 (10-20); Bilirubin,Total 0.8 mg/dl (0.2-1.0); Calcium 9.5 mg/dl (8.6-10.3); Creatinine Clr Calc Pharmacy 30.2 ml/min; Est GFR (African American) 41.4 ml/min; Est GFR (Non-African American) 35.7 ml/min; Globulin 3.2 gm/dl (2.5-4.0); Magnesium 1.7 mg/dl (1.7-2.4); Potassium 4.4 mmol/L (3.5-5.1); Total Protein 6.8 gm/dl (6.0-8.3)
[2023-03-29 22:09] LABS: Troponin I High Sensitivity 12.4 pg/ml (0-20)
[2023-03-29 22:18] LABS: Thyroid Stimulating Hormone 4.656 uIu/ml (0.300-4.500)
--- NOTE | 2023-03-29 22:28 | Emergency Department Note ---
Impression & Plan Hematoma of left flank, Multiple falls, Contusion of foot, right, Anemia, Dehydration, Multiple fractures of ribs ED Provider Note NAME: JENNA ROJAS AGE: 87 SEX: Male INFORMANT: Patient and ED PROVIDER(S): Murtaza Marin MD CHIEF COMPLAINT: Fall PLAN: Disposition: Admitted Outpatient prescription management: none Referral: None MEDICAL DECISION MAKING: Patient presented after having multiple falls. His physical examination revealed a flank hematoma on the left side. The patient was without any complaints of any pain. He had stable vital signs. Chest x-ray was concerning for multiple left-sided rib fractures. No pneumothorax. Patient had mild anemia on CBC. Chemistry panel revealed some mild KIKI and dehydration. Patient underwent trauma scanning including head, cervical spine, chest, abdomen and pelvis. These were done without contrast secondary to the patient's elevated creatinine. He was found to have multiple left-sided rib fractures and a small hemothorax. This appears to be from the fall 4 days ago. He is tolerating it remarkably well. Given his age, multiple falls and the multiple rib fractures further management in the hospital was deemed appropriate. No intra-abdominal pathology was noted on CT imaging. Discussed with patient's and patient. They were in agreement. Consultation [facility] with the [facility]. Case was discussed and diagnostics were reviewed with Joshua. Patient was evaluated in ER admitted for further management.. Care/management discussed with: Discussed with mental health program manager Level of care consideration(s): After review of the information above and other included data, I feel the patient requires escalation of care for admission. Triage Nursing notes: reviewed and agree them. Vital Signs: reviewed and remarkable for no significant abnormalities Additional History obtained from: Patient's regarding his multiple falls and outpatient evaluation. Chronic Medical/Social Conditions affecting care: none Prior/ Outside/ External records reviewed: none Differential Diagnosis: Trauma, Infection, dehydration, metabolic abnormality, hypo/hyperglycemia, electrolyte disturbance, anemia, hypoxia, cardiac sources, intracerebral event, toxicologic, neurologic, as well as other pathologies. Diagnostics, independently interpreted by me: ECG: Twelve-lead ECG reveals normal sinus rhythm 65 bpm. Bundle-branch block. No ST elevation or depression. No PACs or PVCs. Cardiac Monitoring: Cardiac monitoring ordered by me: The patient was placed on continuous cardiac monitoring and observed. It revealed a normal sinus rhythm at 70 beats per minute without ectopy or evidence of dysrhythmia. Medical decision rules: none Imaging studies: Chest x-ray and CT trauma imaging as above. Multiple left- sided rib fractures. I refer you to the EMR for further details. HPI: 87 year old Male arrives for evaluation of multiple falls. Patient's is present helps with history. Patient is residing in a [facility] due to multiple falls and weakness issues. Patient has had increasing falls over the last 2 days. He was found to have bruising on the left side of his flank and also on the right foot. Patient denies any pain. Denies any head injury. Patient is on Plavix. Patient is also on aspirin. Patient denies any flulike symptoms. Pt denies LOC, headache, fevers, chills, diaphoresis, visual changes, neck pain, chest pain, breathing difficulties, nausea, vomiting, abdominal pain, back pain, melena, hematochezia, urinary symptoms, numbness, lymphadenopathy, rash, or other complaints. PAST MEDICAL HISTORY: See Below, CAD, diabetes, A-fib PAST SURGICAL HISTORY: See Below, CABG SOCIAL HISTORY: See Below, retired HOME MEDICATIONS: See Below ALLERGIES: See Below VITALS: See Below PHYSICAL EXAMINATION: GENERAL: Awake, alert, mya-[id number]-gblsefuhi, in no distress HENT: Normocephalic, atraumatic. Oropharynx unremarkable. EYES: Normal conjunctiva. Sclera non-icteric. NECK: Inspection normal. Non-tender. Supple. No nuchal rigidity. FROM. No masses. RESPIRATORY: Clear to auscultation. No wheezes. No rales. Normal respiratory effort. CARDIAC: Normal rate. Normal rhythm. No murmurs. No rubs. Extremities warm and well perfused. Pulses equal. No JVD. GI: Soft, non-distended. No tenderness to palpation. No rebound or guarding. No masses. RECTAL: Deferred. MUSCULOSKELETAL: Upper extremities are essentially atraumatic. Left lower extremity is atraumatic. Right lower extremity reveals normal hip, knee and iglesias. There is some swelling and bruising noted around the right ankle with no associated tenderness. There is some bruising of the lateral right foot with some tenderness around the second and third distal metatarsals. No fifth metatarsal tenderness. Some abrasions noted on the toes. Chest examination reveals minimal left flank tenderness with associated hematoma extending inferiorly into the left lateral abdomen. The back is symmetrical on inspection without obvious abnormality. There is no CVA tenderness to palpation. No joint edema. LOWER EXTREMITIES: Calves are equal size bilaterally and non-tender. No edema. No discoloration. NEURO: Normal sensorium. No sensory or motor deficits noted. SKIN: No rash or jaundice noted. PROCEDURES: none CRITICAL CARE: none OBSERVATION NOTE: none Past Med/Surg History Medical History (Updated 03/30/23 @ 17:31 by Murtaza Marin MD) Pleural effusion, left Left rib fracture Paroxysmal atrial fibrillation Acute hyponatremia Falls Diabetes mellitus CAD (coronary artery disease) Dyslipidemia Surgical History History of appendectomy S/P CABG x 3 "s/p CABG [facility] [place] REYES-LAD, SVG-left circ, SVG-post desc art " Family History Other Dementia Heart disease Stroke Social History Smoking Status: Former smoker Tobacco Type: Cigarettes Second Hand Exposure: No; Do You Dip or Chew Tobacco: No; Hx Alcohol Use: No Hx Substance Use: No Preferred Language: Czech Communication Ability: Effective Dumpman Required: No Beliefs That Will Affect Care: None Current Living Situation: Spouse Current Living Situation Comment: Lives w/ at home current occupational status: retired 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85 Feels Safe at Home: Yes Assistive Devices: Walker Allergies Allergies Allergy/AdvReac Type Severity Reaction Status Date / Time No Known Allergies Allergy Verified 03/29/23 21:44 Home Meds Home Medications Medication Instructions Recorded Confirmed insulin glargine 100 unit/mL (3 25 unit subcut QAM 09/23/22 03/29/23 mL) subcutaneous pen (Lantus Solostar U-100 Insulin) metformin 500 mg tablet,extended See Rx Instructions .Route .COMPLEX 09/23/22 03/29/23 release 24 hr amiodarone 200 mg tablet 200 mg PO QAM 11/27/22 03/29/23 aspirin 81 mg tablet,delayed 81 mg PO DAILY 11/27/22 03/29/23 release clopidogrel 75 mg tablet 75 mg PO DAILY 11/27/22 03/29/23 rosuvastatin 20 mg tablet 20 mg PO DAILY 11/27/22 03/29/23 cholecalciferol (vitamin D3) 50 50 mcg PO QAM 02/10/23 03/29/23 mcg (2,000 unit) tablet (Vitamin D3) bisacodyl 10 mg rectal suppository 10 mg IL DAILY PRN Constipation 03/29/23 03/29/23 docusate sodium 100 mg capsule 100 mg PO BID 03/29/23 03/29/23 magnesium hydroxide 400 mg/5 mL 30 ml PO DAILY PRN Constipation 03/29/23 03/29/23 oral suspension (Milk of Magnesia) ondansetron 4 mg disintegrating 4 mg PO Q4H PRN NAUSEA/VOMITING 03/29/23 03/29/23 tablet polyethylene glycol 3350 17 17 g PO QDL PRN Constipation 03/29/23 03/29/23 gram/dose oral powder (Miralax) ranolazine 500 mg tablet,extended 500 mg PO BID 03/29/23 03/29/23 release,12 hr sodium phosphates 19 gram-7 118 ml IL DAILY PRN Constipation 03/29/23 03/29/23 gram/118 mL enema (Fleet Enema) zinc oxide 12 % topical cream 1 applic topical TID PRN Skin 03/29/23 03/29/23 ([place] Protect (zinc oxide)) Irritation Results & Data (ED) Vital Signs Vital Signs - 24 hr 03/29/23 21:07 03/29/23 22:12 03/29/23 22:49 Temperature 37 C Temperature Source Oral Pulse Rate 67 58 L 64 Pulse Rate from SpO2 Sensor Respiratory Rate 16 20 Respiratory Effort / Characteristics Non-Labored Spontaneous Respiratory Depth Normal Respiratory Pattern Regular Blood Pressure 150/81 H 176/90 H Blood Pressure Mean 104 118 Pulse Oximetry 98 96 Oxygen Delivery Method Room Air Sepsis Recent Fever Within 48 Hours No Sepsis New/Unexplained Change in Mental Status No Sepsis Action Taken by Nursing No Action Required 03/29/23 23:00 03/29/23 23:30 03/30/23 00:00 Temperature Temperature Source Pulse Rate 57 L 56 L 56 L Pulse Rate from SpO2 Sensor Respiratory Rate 14 16 12 Respiratory Effort / Characteristics Respiratory Depth Respiratory Pattern Blood Pressure 163/81 H 157/75 H 150/81 H Blood Pressure Mean 108 102 104 Pulse Oximetry 95 94 94 Oxygen Delivery Method Sepsis Recent Fever Within 48 Hours Sepsis New/Unexplained Change in Mental Status Sepsis Action Taken by Nursing 03/30/23 00:30 03/30/23 01:00 03/30/23 02:00 Temperature Temperature Source Pulse Rate 56 L 57 L 57 L Pulse Rate from SpO2 Sensor Respiratory Rate 14 14 22 Respiratory Effort / Characteristics Respiratory Depth Respiratory Pattern Blood Pressure 147/89 H 145/76 H 150/102 H Blood Pressure Mean 108 99 118 Pulse Oximetry 93 96 92 Oxygen Delivery Method Sepsis Recent Fever Within 48 Hours Sepsis New/Unexplained Change in Mental Status Sepsis Action Taken by Nursing 03/30/23 02:10 03/30/23 02:30 03/30/23 02:50 Temperature Temperature Source Pulse Rate 62 58 L 58 L Pulse Rate from SpO2 Sensor 58 L Respiratory Rate 15 20 Respiratory Effort / Characteristics Respiratory Depth Respiratory Pattern Blood Pressure 156/85 H Blood Pressure Mean 110 Pulse Oximetry 95 93 Oxygen Delivery Method Room Air Sepsis Recent Fever Within 48 Hours Sepsis New/Unexplained Change in Mental Status Sepsis Action Taken by Nursing 03/30/23 03:00 03/30/23 03:00 03/30/23 03:10 Temperature Temperature Source Pulse Rate 72 59 L Pulse Rate from SpO2 Sensor 72 58 L Respiratory Rate 23 16 Respiratory Effort / Characteristics Respiratory Depth Respiratory Pattern Blood Pressure 155/94 H Blood Pressure Mean 103 Pulse Oximetry 91 97 Oxygen Delivery Method Sepsis Recent Fever Within 48 Hours Sepsis New/Unexplained Change in Mental Status Sepsis Action Taken by Nursing 03/30/23 03:20 03/30/23 03:30 03/30/23 03:31 Temperature Temperature Source Pulse Rate 61 Pulse Rate from SpO2 Sensor 61 Respiratory Rate 16 16 Respiratory Effort / Characteristics Respiratory Depth Respiratory Pattern Blood Pressure 156/73 H Blood Pressure Mean 109 Pulse Oximetry 97 Oxygen Delivery Method Sepsis Recent Fever Within 48 Hours Sepsis New/Unexplained Change in Mental Status Sepsis Action Taken by Nursing 03/30/23 03:31 03/30/23 03:40 03/30/23 03:50 Temperature Temperature Source Pulse Rate 60 60 Pulse Rate from SpO2 Sensor Respiratory Rate 12 14 15 Respiratory Effort / Characteristics Respiratory Depth Respiratory Pattern Blood Pressure Blood Pressure Mean Pulse Oximetry Oxygen Delivery Method Sepsis Recent Fever Within 48 Hours Sepsis New/Unexplained Change in Mental Status Sepsis Action Taken by Nursing Laboratory Data 03/30/23 07:49 03/30/23 07:49 Lab Results 03/29/23 03/30/23 Range/Units 21:25 01:30 WBC 8.04 (4.8-10.8) K/ul RBC 2.92 L (4.70-6.10) M/uL Hgb 9.8 L (14.0-18.0) g/dl Hct 28.1 L (42.0-52.0) % MCV 96.2 (80.0-100.0) fL MCH 33.6 (25.0-34.0) pg MCHC 34.9 (32.0-36.0) g/dL RDW Std Deviation 48.5 H (36.4-46.3) fL RDW Coeff of Venancio 13.7 (11.5-14.5) % Plt Count 177 (130-400) K/uL MPV 9.7 (9.4-12.4) fL Immature Gran % (Auto) 0.4 % Neut % (Auto) 74.0 % Lymph % (Auto) 15.5 % [place] % (Auto) 8.6 % Eos % (Auto) 1.1 % Baso % (Auto) 0.4 % Neut # (Auto) 5.95 (1.40-6.50) K/uL Lymph # (Auto) 1.25 (1.20-3.40) K/uL [place] # (Auto) 0.69 H (0.11-0.59) K/uL Eos # (Auto) 0.09 (0.00-0.50) K/uL Baso # (Auto) 0.03 (0.00-0.20) K/uL Immature Gran # (Auto) 0.03 (0.01-0.20) K/uL Sodium 132 L (136-145) mmol/L Potassium 4.4 (3.5-5.1) mmol/L Chloride 97 L (98-107) mmol/L Carbon Dioxide 25 (21-32) mmol/L Anion Gap 10 (3-11) BUN 41 H (6-23) mg/dl Creatinine 1.70 H (0.6-1.4) mg/dl Est Cr Clr Drug Dosing 30.2 ml/min Est GFR ( Amer) 41.4 ml/min Est GFR (Non-Af Amer) 35.7 ml/min BUN/Creatinine Ratio 24.1 H (10-20) Glucose 292 H (70-99(Fasting)) mg/dl Calcium 9.5 (8.6-10.3) mg/dl Magnesium 1.7 (1.7-2.4) mg/dl Total Bilirubin 0.8 (0.2-1.0) mg/dl AST 31 (13-39) U/L ALT 22 (7-52) U/L Alkaline Phosphatase 52 (34-104) U/L Total Creatine Kinase 178 (30-223) U/L Troponin I High Sens 12.4 (0-20) pg/ml Total Protein 6.8 (6.0-8.3) gm/dl Albumin 3.6 (3.4-5.0) gm/dl Globulin 3.2 (2.5-4.0) gm/dl Albumin/Globulin Ratio 1.1 (0.9-2) TSH 4.656 H (0.300-4.500) uIu/ml Free T4 1.03 (0.61-1.60) ng/dl Urine Color Dark Yellow Urine Appearance Cloudy A (Clear) Urine pH 5.0 (4.5-7.5) Ur Specific Hye 1.020 (1.000-1.030) Urine Protein 2+ H (Negative) Urine Glucose (UA) 2+ H (Negative) Urine Ketones Negative (Negative) Urine Blood 1+ H (Negative) Urine Nitrite Negative (Negative) Urine Bilirubin Negative (Negative) Urine Urobilinogen Negative (Negative) Ur Leukocyte Esterase 1+ H (Negative) Urine WBC (Auto) >30 H (0-5) /hpf Urine RBC (Auto) 0-4 (0-4) /hpf U Hyaline Cast (Auto) 10-30 H (0-5) /lpf U Epithel Cells (Auto) >30 H (0-5) /lpf Urine Bacteria (Auto) Negative (Negative) Ur Renal Epithelial Cell 10-20 H (0-5) /lpf Granular Casts 5-10 H (0) /lpf Other Casts Mixed Cell Cast A (0) /lpf Urine Yeast Not Reportable Adenovirus (PCR) Not Detected (NotDetected) B. pertussis DNA (PCR) Not Detected (NotDetected) B.parapertussis DNA PCR Not Detected (NotDetected) C. pneumoniae DNA (PCR) Not Detected (NotDetected) Coronavirus OC43 (PCR) Not Detected (NotDetected) Coronavirus HKU1 (PCR) Not Detected (NotDetected) Coronavirus 229E (PCR) Not Detected (NotDetected) SARS-CoV-2 (PCR) Not Detected (NotDetected) Coronavirus NL63 (PCR) Not Detected (NotDetected) Human Metapneumovir PCR Not Detected (NotDetected) Influenza Type A (PCR) Not Detected (NotDetected) Influenza Type B (PCR) Not Detected (NotDetected) M. pneumoniae (PCR) Not Detected (NotDetected) Parainfluenza 1 (PCR) Not Detected (NotDetected) Parainfluenza 2 (PCR) Not Detected (NotDetected) Parainfluenza 3 (PCR) Not Detected (NotDetected) Parainfluenza 4 (PCR) Not Detected (NotDetected) RSV (PCR) Not Detected (NotDetected) Entero/Rhino (PCR) Not Detected (NotDetected) Administered Medications Amiodarone HCl (Amiodarone 200 Mg Tab) 200 mg PO QAM [facility] Stop: 04/29/23 08:59 Last Admin: 03/30/23 08:40 Dose: 200 mg Documented By: DANISH Aspirin (Aspirin 81 Mg Ectab) 81 mg PO DAILY [facility] Stop: 04/29/23 08:59 Last Admin: 03/30/23 08:40 Dose: 81 mg Documented By: DANISH Clopidogrel Bisulfate (Clopidogrel Bisulfate 75 Mg Tab) 75 mg PO DAILY AMY Stop: 04/29/23 08:59 Last Admin: 03/30/23 08:39 Dose: 75 mg Documented By: DANISH Docusate Sodium (Docusate Sodium 100 Mg Cap) 100 mg PO BID AMY Stop: 04/29/23 08:59 Last Admin: 03/30/23 08:38 Dose: 100 mg Documented By: DANISH Sodium Chloride (Nss) 1,000 mls @ 100 mls/hr IV .Q10H [facility] Stop: 04/29/23 06:41 Last Infusion: 03/30/23 17:25 Dose: Infused Documented By: Admin: 03/30/23 08:34 Dose: 100 mls/hr Documented By: DANISH Ceftriaxone Sodium 1,000 mg/ (Dextrose) 50 mls @ 100 mls/hr IV Q24H [facility]; Protocol Stop: 04/09/23 06:41 Last Infusion: 03/30/23 10:29 Dose: Infused Documented By: Admin: 03/30/23 08:34 Dose: 100 mls/hr Documented By: DANISH Insulin Aspart (Insulin Aspart Per Unit Charge) 0 units SC ACHS [facility] Stop: 04/29/23 07:29 Last Admin: 03/30/23 13:45 Dose: 5 units Documented By: DANISH Co-signed By: SIERRA Admin: 03/30/23 10:21 Dose: 2 units Documented By: DANISH Co-signed By: SIERRA Insulin Glargine (Lantus Per Unit Charge) 25 units SQ QAM [facility] Stop: 04/29/23 08:59 Last Admin: 03/30/23 10:21 Dose: 25 units Documented By: DANISH Co-signed By: SIERRA Ranolazine (Ranolazine 500 Mg Er Tab) 500 mg PO BID AMY Stop: 04/29/23 08:59 Last Admin: 03/30/23 08:37 Dose: 500 mg Documented By: DANISH Rosuvastatin Calcium (Rosuvastatin Calcium 20 Mg Tab) 20 mg PO DAILY [facility] Stop: 04/29/23 08:59 Last Admin: 03/30/23 08:41 Dose: 20 mg Documented By: DANISH Vitamin D (Cholecalciferol 1,000 Units 25 Mcg Tab) 2,000 units PO QAM [facility] Stop: 04/29/23 08:59 Last Admin: 03/30/23 08:40 Dose: 2,000 units Documented By: DANISH Discontinued Medications Sodium Chloride (Nss) 1,000 mls @ 125 mls/hr IV .Q8H [facility] Stop: 03/30/23 05:14 Last Infusion: 03/30/23 05:43 Dose: Infused Documented By: Admin: 03/29/23 21:43 Dose: 125 mls/hr Documented By: KATINA Discharge Plan Visit Data Chief Complaint: Fall Stated Complaint: MULTIPLE FALLS ED Provider: Murtaza Marin Discharge Problem: Hematoma of left flank, Multiple falls, Contusion of foot, right, Anemia, Dehydration, Multiple fractures of ribs Patient Disposition: Admitted As Inpatient Discharge Instructions Interventions: ED Discharge Assessment Last Done: 03/30/23 16:54 Discharge Problem: Hematoma of left flank Qualifiers: Encounter type: initial encounter Qualified Code(s): S30.1XXA - Contusion of abdominal wall, initial encounter
[2023-03-29 22:37] LABS: Adenovirus PCR Not Detected (NotDetected); Bordetella parapertussis PCR Not Detected (NotDetected); Bordetella pertussis PCR Not Detected (NotDetected); Chlamydia pneumoniae PCR Not Detected (NotDetected); Coronavirus 229E PCR Not Detected (NotDetected); Coronavirus CoV-2 (COVID19)PCR Not Detected (NotDetected); Coronavirus HKU1 PCR Not Detected (NotDetected); Coronavirus NL63 PCR Not Detected (NotDetected); Coronavirus OC43PCR Not Detected (NotDetected); Human Metapneumovirus PCR Not Detected (NotDetected); Influenza A PCR Not Detected (NotDetected); Influenza B PCR Not Detected (NotDetected); Mycoplasma pneumoniae PCR Not Detected (NotDetected); Parainfluenza Virus 1 PCR Not Detected (NotDetected); Parainfluenza Virus 2 PCR Not Detected (NotDetected); Parainfluenza Virus 3 PCR Not Detected (NotDetected); Parainfluenza Virus 4 PCR Not Detected (NotDetected); Respiratory Syncytial VirusPCR Not Detected (NotDetected); Rhinovirus/Enterovirus PCR Not Detected (NotDetected)
--- NOTE | 2023-03-29 22:51 | XRay Report ---
XR chest 1V portable HISTORY: weakness COMPARISON: Chest 02/10/2023. FINDINGS: The cardiac silhouette remains mildly enlarged. There are poststernotomy changes again note d. There is no evidence for pulmonary edema. Mild interstitial thickening at the lung bases. This is likely chronic. There are multiple left-sided rib fractures. Mild left pleural thickening is likely d ue to the rib fractures. Trace left pleural effusion. No definite pneumothorax. IMPRESSION: Multiple acute left-sided rib fractures and a trace left pleural effusion. No definite pneumothorax. ACT 112: Negative or not required by law. Electronically signed by: Reinaldo Nunez M.D. 03/29/2023 10:49 PM
[2023-03-29 22:53] LABS: T4 Free Thyroxine 1.03 ng/dl (0.61-1.60)
--- NOTE | 2023-03-29 23:03 | XRay Report ---
XR ankle RT min 3V routine, XR foot RT min 3V routine CLINICAL HISTORY: fall. Right ankle and foot pain. COMPARISON STUDY: None. FINDINGS: Soft tissue swelling within the right ankle. Vascular calcifications are noted. There is a plantar heel spur. No acute fracture or dislocation within the right ankle or right foot. The bones a re osteopenic. The Lisfranc joint is intact. Mild degenerative changes within the interphalangeal wilmar nts and first MTP joint. IMPRESSION: No fractures within the right ankle or right foot. ACT 112: Negative or not required by law. Electronically signed by: Reinaldo Nunez M.D. 03/29/2023 11:01 PM
--- NOTE | 2023-03-29 23:39 | CT Scan Report ---
Exam(s): CT C SPINE EXAM: CT Cervical Spine Without Intravenous Contrast CLINICAL HISTORY: Trauma. TECHNIQUE: Axial computed tomography images of the cervical spine without intravenous contrast. CTDI is 21.4 mGy and DLP is 441.72 mGy-cm. Automated exposure control was utilized for the study. A dose lowering technique was utilized adhering to the principles of ALARA. COMPARISON: CT cervical spine 02/10/2023 FINDINGS: Vertebrae: The vertebral bodies are intact without acute osseous traumatic injury. Chronic anterior wedging is noted at C3 level, stable. Mild reversal of the normal cervical lordosis centered at C3. No anterolisthesis or retrolisthesis is identified. The facet joints are well aligned without subluxation or dislocation. The pedicles, transverse processes and spinous processes are intact. Discs/spinal canal/neural foramina: Moderately severe multilevel disc spondylosis with narrowing and marginal hypertrophic changes from C3-C4 through C6-C7. Multilevel bilateral chronic osseous neural foraminal encroachment. Soft tissues: Unremarkable. Lung apices: The included lung apices demonstrate no evidence for acute traumatic injury. IMPRESSION: No acute osseous traumatic injury involving the cervical spine. No appreciable alteration from the prior examination with chronic underlying degenerative changes noted. Electronically signed by: Shmuel Cage MD 03/29/23 23:38 PM
--- NOTE | 2023-03-29 23:40 | CT Scan Report ---
Exam(s): CT HEAD Without Contrast EXAM: CT Head Without Intravenous Contrast CLINICAL HISTORY: Trauma. TECHNIQUE: Axial computed tomography images of the head/brain without intravenous contrast. CTDI is 38.43 mGy and DLP is 546.36 mGy-cm. Automated exposure control was utilized for the study. A dose lowering technique was utilized adhering to the principles of ALARA. COMPARISON: CT head without contrast dated 02/10/2023 FINDINGS: Brain: There are a few areas of decreased attenuation in the deep cerebral white matter consistent with mild small vessel ischemic/degenerative changes. The cerebral and cerebellar sulci are mildly prominent consistent with mild brain atrophy. No hemorrhage. Ventricles: Unremarkable. No ventriculomegaly. Bones/joints: Unremarkable. No acute fracture. Soft tissues: Unremarkable. Vasculature: Atherosclerotic disease involving the cavernous internal carotid arteries and distal vertebral arteries, stable. Sinuses: Unremarkable as visualized. No acute sinusitis. Mastoid air cells: Unremarkable as visualized. No mastoid effusion. IMPRESSION: No acute intracranial process or significant alteration from the previous examination with chronic underlying findings, as noted above. Electronically signed by: Shmuel Cage MD 03/29/23 23:39 PM
--- NOTE | 2023-03-29 23:45 | CT Scan Report ---
Exam(s): CT ABDOMEN + PELVIS Without Contrast EXAM: CT Abdomen and Pelvis Without Intravenous Contrast CLINICAL HISTORY: fall, left flank hematoma. TECHNIQUE: Axial computed tomography images of the abdomen and pelvis without intravenous contrast. CTDI is 19.48 mGy and DLP is 940.89 mGy-cm. Automated exposure control was utilized for the study. A dose lowering technique was utilized adhering to the principles of ALARA. COMPARISON: No relevant prior studies available. FINDINGS: Lung bases: Findings regarding the lung bases, please see the CT report of the chest performed concurrently. ABDOMEN: Liver: Enhanced liver is intact without evidence for acute traumatic injury. Gallbladder and bile ducts: Unremarkable. No calcified stones. No ductal dilation. Pancreas: Unremarkable. No ductal dilation. Spleen: The spleen is grossly intact, accounting for limitations with lack of IV contrast. No perisplenic fluid. Adrenals: Unremarkable. No mass. Kidneys and ureters: The kidneys are intact without evidence for acute traumatic injury. No hydronephrosis. No perinephric retroperitoneal injury. Stomach and bowel: No evidence for traumatic bowel injury. No bowel obstruction. PELVIS: Appendix: No findings to suggest acute appendicitis. Bladder: There is an abnormal rounded mass extending from the posterior wall of the bladder, measuring 2.3 x 2.7 x 2.1 cm. This appears to be adjacent distinct from the prostate gland. No stones. Reproductive: The prostate gland is somewhat enlarged with internal calcifications. ABDOMEN and PELVIS: Intraperitoneal space: Unremarkable. No free air. No significant fluid collection. Retroperitoneal space: No retroperitoneal hematoma. Bones/joints: Mildly displaced left lateral sixth through eighth rib fractures noted. Subacute fracture involving the posterior costovertebral margin of the left 12th rib. Straightening of the normal lumbar lordosis. Multilevel disc spondylosis with narrowing and marginal hypertrophic changes. Soft tissues: Superficial subcutaneous fat stranding noted involving the left posterior lateral subcostal and abdominal soft tissues. No well- defined hematoma. There are less prominent changes along the lateral left hip. No subcutaneous emphysema or radiopaque foreign body. Vasculature: Atherosclerotic calcification of the abdominal aorta. No abdominal aortic aneurysm. Lymph nodes: Unremarkable. No enlarged lymph nodes. IMPRESSION: 1. Superficial subcutaneous fat stranding noted involving the left posterior lateral subcostal and abdominal soft tissues. No well-defined hematoma. There are less prominent changes along the lateral left hip. No subcutaneous emphysema or radiopaque foreign body. 2. Displaced left lateral rib fractures noted inferiorly. For full details, please see the CT report of the chest. 3. There is an abnormal presumed incidental rounded mass extending from the posterior wall of the bladder, measuring 2.3 x 2.7 x 2.1 cm. This appears to be adjacent distinct from the prostate gland. The differential considerations include a bladder neoplasm versus atypical pedunculated extension of tissue from the prostate gland. Recommend dedicated contrast imaging, when appropriate. Electronically signed by: Shmuel Cage MD 03/29/23 23:45 PM
--- NOTE | 2023-03-29 23:49 | CT Scan Report ---
Exam(s): CT CHEST Without Contrast EXAM: CT Chest Without Intravenous Contrast CLINICAL HISTORY: fall, left flank hematoma. TECHNIQUE: Axial computed tomography images of the chest without intravenous contrast. CTDI is 19.42 mGy and DLP is 666.06 mGy-cm. Automated exposure control was utilized for the study. A dose lowering technique was utilized adhering to the principles of ALARA. COMPARISON: No relevant prior studies available. FINDINGS: Lungs: Curvilinear changes noted involving the posterior left lung. Less prominent dependent changes noted posteriorly on the right. No pulmonary contusive injury. Pleural space: Small volume left hemothorax with intermediate density fluid layering posteriorly on the left measuring up to 1.5 cm. No loculation. No pneumothorax. Heart: Surgical changes consistent with prior CABG. Cardiomegaly with extensive coronary artery calcification. No pericardial effusion. Mediastinum: No mediastinal traumatic injury. Bones/joints: Displaced left lateral fourth through seventh rib fractures. Nondisplaced left lateral eighth rib fracture. Remote left posterior medial 11th and 12th rib fractures. The thoracic vertebral bodies are intact. The sternum is intact with sternotomy wires. No displaced right rib fracture. No dislocation. Soft tissues: Unremarkable. Vasculature: The ascending aorta is borderline ectatic. The aortic arch and descending aorta are normal in caliber. Extensive atherosclerotic calcification. No thoracic aortic aneurysm. Lymph nodes: Unremarkable. No enlarged lymph nodes. IMPRESSION: 1. Displaced left lateral fourth through seventh rib fractures. Nondisplaced left lateral eighth rib fracture. 2. Small volume left hemothorax with intermediate density fluid layering posteriorly on the left measuring up to 1.5 cm. No loculation. No pneumothorax. 3. Curvilinear changes noted involving the posterior left lung, most consistent with compressive atelectasis. Less prominent dependent atelectatic changes noted posteriorly on the right. No pulmonary contusive injury. Electronically signed by: Shmuel Cage MD 03/29/23 23:48 PM
[2023-03-30 02:00] LABS: Appearance Urine Cloudy (Clear); Bacteria Urine Automated Negative (Negative); Bilirubin Urine Negative (Negative); Blood Urine 1+ (Negative); Color Urine Dark Yellow; Epithelial Cell Urine Auto >30 /lpf (0-5); Glucose Urine UA 2+ (Negative); Ketones Urine Negative (Negative); Leukocyte Esterase Urine 1+ (Negative); Nitrite Urine Negative (Negative); Protein Urine 2+ (Negative); RBC Urine Automated 0-4 /hpf (0-4); Urobilinogen Urine Negative (Negative); WBC Urine Automated >30 /hpf (0-5)
--- NOTE | 2023-03-30 05:05 | History & Physical Report ---
Date of Service March 30, 2023 Assessment & Plan (1) Multiple falls: Plan: 87-year-old male currently living at [facility] and with past medical history significant for frequent falls, type 2 diabetes, CKD stage III, hyperlipidemia, chronic angina, CAD s/p stenting s/p CABG, paroxysmal atrial fibrillation, hypertension, enlarged aorta, neuropathy, comes because of fall and found to left rib fractures and small left hemothorax and also questionable bladder mass. 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 No pneumothorax Pain control We will follow repeat chest x-ray Pulmonary consult in a.m. PT OT when stable Questionable bladder mass On CT abdomen pelvis We will consult urology for further recommendation. CAD s/p stent and s/p CABG On aspirin Plavix and statin Chronic angina On ranolazine dose was decreased recently for hypotension KIKI on CKD stage III Presented with creatinine 1.7 Baseline creatinine seems to be around 1.5 Getting fluids Avoid nephrotoxic agents Follow repeat labs Possible UTI Rocephin follow cultures. Anemia Hemoglobin 9.8 Lower than recent past Check stool for Hemoccult Diabetes Hold metformin Insulin sliding scale we will monitor the blood sugars Paroxysmal atrial fibrillation On amiodarone Not on anticoagulation because of risk of anticoagulation greater than benefit as per cardio notes Hypertension Currently not on medications because of falls and hypotension DVT prophylaxis SCDs Disposition med/telemetry CODE STATUS DNR/DNI as per discussion with the History of Present Illness Chief Complaint: frequent falls Primary Care Provider: Carola Arrington MD 87-year-old male currently living at [facility] and with past medical history significant for frequent falls, type 2 diabetes, CKD stage III, hyperlipidemia, chronic angina, CAD s/p stenting s/p CABG, paroxysmal atrial fibrillation, hypertension, enlarged aorta, neuropathy, comes because of fall and found to left rib fractures and small left hemothorax and also questionable bladder mass. Since July patient been falling frequently. Ambulates with walker. As per he was brought into the hospital today as per snf rule to be seen by doctor after fall. Patient complains of pain in the left rib fracture site. Has some pain while taking deep breath. States he did not hit his head and no loss of consciousness when he fell. thinks that the rib fractures are from the fall from earlier in the week. Denies any headache. No blurred visions. No runny nose or sore throat. No cough. Appetite is okay. Afebrile. Currently no shortness of breath. No nausea. No abdominal pain. Normal bowel and bladder movements. Saw PCP on March 26 for fall and at that time was found to have low blood pressure. [facility] PCP notified cardiology about hypotension and ranolazine dose was reduced to 500 mg twice daily and was advised compresses stockings to keep in a.m. and remove in p.m. Past medical history. As mentioned above. Past surgical history. CABG. Left heart catheterization. Colonoscopy. Appendectomy. Social history. . Quit smoking 1984. Smoked half pack a day for 5 years. Alcohol rare. No drug use. Family history. Father had heart disorder. Alzheimer's. Mother had stroke. Allergies Allergy/AdvReac Type Severity Reaction Status Date / Time No Known Allergies Allergy Verified 03/29/23 21:44 Home Medications Medication Instructions Recorded Confirmed Type insulin glargine 100 unit/mL (3 25 unit subcut QAM 09/23/22 03/29/23 History mL) subcutaneous pen (Lantus Solostar U-100 Insulin) metformin 500 mg tablet,extended See Rx Instructions .Route .COMPLEX 09/23/22 03/29/23 History release 24 hr amiodarone 200 mg tablet 200 mg PO QAM 11/27/22 03/29/23 History aspirin 81 mg tablet,delayed 81 mg PO DAILY 11/27/22 03/29/23 History release clopidogrel 75 mg tablet 75 mg PO DAILY 11/27/22 03/29/23 History rosuvastatin 20 mg tablet 20 mg PO DAILY 11/27/22 03/29/23 History cholecalciferol (vitamin D3) 50 50 mcg PO QAM 02/10/23 03/29/23 History mcg (2,000 unit) tablet (Vitamin D3) bisacodyl 10 mg rectal suppository 10 mg HI DAILY PRN Constipation 03/29/23 03/29/23 History docusate sodium 100 mg capsule 100 mg PO BID 03/29/23 03/29/23 History magnesium hydroxide 400 mg/5 mL 30 ml PO DAILY PRN Constipation 03/29/23 03/29/23 History oral suspension (Milk of Magnesia) ondansetron 4 mg disintegrating 4 mg PO Q4H PRN NAUSEA/VOMITING 03/29/23 03/29/23 History tablet polyethylene glycol 3350 17 17 g PO QDL PRN Constipation 03/29/23 03/29/23 History gram/dose oral powder (Miralax) ranolazine 500 mg tablet,extended 500 mg PO BID 03/29/23 03/29/23 History release,12 hr sodium phosphates 19 gram-7 118 ml HI DAILY PRN Constipation 03/29/23 03/29/23 History gram/118 mL enema (Fleet Enema) zinc oxide 12 % topical cream 1 applic topical TID PRN Skin 03/29/23 03/29/23 History ([place] Protect (zinc oxide)) Irritation Past Med/Surg History Medical History Acute hyponatremia CAD (coronary artery disease) Diabetes mellitus Dyslipidemia Falls Paroxysmal atrial fibrillation Surgical History History of appendectomy S/P CABG x 3 [place] [facility] [place], SVG-left circ, SVG-post desc art " Family History Other Dementia Heart disease Stroke Social History Smoking Status: Former smoker Tobacco Type: Cigarettes Second Hand Exposure: No; Do You Dip or Chew Tobacco: No; Tobacco Cessation Education Requested by Patient: No Hx Alcohol Use: No Hx Substance Use: No Preferred Language: Serbian Communication Ability: Effective Game Author Required: No Beliefs That Will Affect Care: None Current Living Situation: Spouse Current Living Situation Comment: Lives w/ at home current occupational status: 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 ENT- oropharynx clear Neck- supple, no JVD. Lungs- clear to auscultation , no wheezing or crackles. Heart- regular rhythm; no murmur, no gallop. Abdomen- normal bowel sounds, soft, nontender, no distension. Extremities- no pretibial edema, no erythema seen. Neuro- alert, oriented ; PERRL, no facial palsy; no dysarthria; moves extremities. Skin- warm & dry Results & Data Results & Data Vital Signs (Past 12 Hours) Vital Signs Temp Pulse Resp BP Pulse Ox O2 Del Method 03/30/23 02:30 58 L 15 156/85 H 95 Room Air 03/30/23 02:10 62 03/30/23 02:00 57 L 22 150/102 H 92 03/30/23 01:00 57 L 14 145/76 H 96 03/30/23 00:30 56 L 14 147/89 H 93 03/30/23 00:00 56 L 12 150/81 H 94 03/29/23 23:30 56 L 16 157/75 H 94 03/29/23 23:00 57 L 14 163/81 H 95 03/29/23 22:49 64 20 176/90 H 96 03/29/23 22:12 58 L 03/29/23 21:07 37 C 67 16 150/81 H 98 Room Air Diagnostic Findings Laboratory Results WBC 8.04 K/ul (4.8-10.8) 03/29/23 21:25 RBC 2.92 M/uL (4.70-6.10) L 03/29/23 21:25 Hgb 9.8 g/dl (14.0-18.0) L 03/29/23 21:25 Hct 28.1 % (42.0-52.0) L 03/29/23 21:25 MCV 96.2 fL (80.0-100.0) 03/29/23 21:25 MCH 33.6 pg (25.0-34.0) 03/29/23 21:25 MCHC 34.9 g/dL (32.0-36.0) 03/29/23 21:25 RDW Std Deviation 48.5 fL (36.4-46.3) H 03/29/23 21:25 RDW Coeff of Venancio 13.7 % (11.5-14.5) 03/29/23 21:25 Plt Count 177 K/uL (130-400) 03/29/23 21:25 MPV 9.7 fL (9.4-12.4) 03/29/23 21:25 Immature Gran % (Auto) 0.4 % 03/29/23 21:25 Neut % (Auto) 74.0 % 03/29/23 21:25 Lymph % (Auto) 15.5 % 03/29/23 21:25 [place] % (Auto) 8.6 % 03/29/23 21:25 Eos % (Auto) 1.1 % 03/29/23 21:25 Baso % (Auto) 0.4 % 03/29/23:25 Neut # (Auto) 5.95 K/uL (1.40-6.50) 03/29/23 21:25 Lymph # (Auto) 1.25 K/uL (1.20-3.40) 03/29/23 21:25 [place] # (Auto) 0.69 K/uL (0.11-0.59) H 03/29/23 21:25 Eos # (Auto) 0.09 K/uL (0.00-0.50) 03/29/23 21:25 Baso # (Auto) 0.03 K/uL (0.00-0.20) 03/29/23 21:25 Immature Gran # (Auto) 0.03 K/uL (0.01-0.20) 03/29/23 21:25 Sodium 132 mmol/L (136-145) L 03/29/23 21:25 Potassium 4.4 mmol/L (3.5-5.1) 03/29/23 21:25 Chloride 97 mmol/L (98-107) L 03/29/23 21:25 Carbon Dioxide 25 mmol/L (21-32) 03/29/23 21:25 Anion Gap 10 (3-11) 03/29/23 21:25 BUN 41 mg/dl (6-23) H 03/29/23 21:25 Creatinine 1.70 mg/dl (0.6-1.4) H 03/29/23 21:25 Est Cr Clr Drug Dosing 30.2 ml/min 03/29/23 21:25 Est GFR ( Amer) 41.4 ml/min 03/29/23 21:25 Est GFR (Non-Af Amer) 35.7 ml/min 03/29/23 21:25 BUN/Creatinine Ratio 24.1 (10-20) H 03/29/23 21:25 Glucose 292 mg/dl (70-99(Fasting)) H 03/29/23 21:25 Calcium 9.5 mg/dl (8.6-10.3) 03/29/23 21:25 Magnesium 1.7 mg/dl (1.7-2.4) 03/29/23 21:25 Total Bilirubin 0.8 mg/dl (0.2-1.0) 03/29/23 21:25 AST 31 U/L (13-39) 03/29/23 21:25 ALT 22 U/L (7-52) 03/29/23 21:25 Alkaline Phosphatase 52 U/L (34-104) 03/29/23 21:25 Total Creatine Kinase 178 U/L (30-223) 03/29/23 21:25 Troponin I High Sens 12.4 pg/ml (0-20) 03/29/23 21:25 Total Protein 6.8 gm/dl (6.0-8.3) 03/29/23 21:25 Albumin 3.6 gm/dl (3.4-5.0) 03/29/23 21:25 Globulin 3.2 gm/dl (2.5-4.0) 03/29/23 21:25 Albumin/Globulin Ratio 1.1 (0.9-2) 03/29/23 21:25 TSH 4.656 uIu/ml (0.300-4.500) H 03/29/23 21:25 Free T4 1.03 ng/dl (0.61-1.60) 03/29/23 21:25 Urine Color Dark Yellow 03/30/23 01:30 Urine Appearance Cloudy (Clear) A 03/30/23 01:30 Urine pH 5.0 (4.5-7.5) 03/30/23 01:30 Ur Specific [place] 1.020 (1.000-1.030) 03/30/23 01:30 Urine Protein 2+ (Negative) H 03/30/23 01:30 Urine Glucose (UA) 2+ (Negative) H 03/30/23 01:30 Urine Ketones Negative (Negative) 03/30/23 01:30 Urine Blood 1+ (Negative) H 03/30/23 01:30 Urine Nitrite Negative (Negative) 03/30/23 01:30 Urine Bilirubin Negative (Negative) 03/30/23 01:30 Urine Urobilinogen Negative (Negative) 03/30/23 01:30 Ur Leukocyte Esterase 1+ (Negative) H 03/30/23 01:30 Urine WBC (Auto) >30 /hpf (0-5) H 03/30/23 01:30 Urine RBC (Auto) 0-4 /hpf (0-4) 03/30/23 01:30 U Hyaline Cast (Auto) 10-30 /lpf (0-5) H 03/30/23 01:30 U Epithel Cells (Auto) >30 /lpf (0-5) H 03/30/23 01:30 Urine Bacteria (Auto) Negative (Negative) 03/30/23 01:30 Ur Renal Epithelial Cell 10-20 /lpf (0-5) H 03/30/23 01:30 Granular Casts 5-10 /lpf (0) H 03/30/23 01:30 Other Casts Mixed Cell Cast /lpf (0) A 03/30/23 01:30 Urine Yeast Not Reportable 03/30/23 01:30 Adenovirus (PCR) Not Detected (NotDetected) 03/29/23 21:25 B. pertussis DNA (PCR) Not Detected (NotDetected) 03/29/23 21:25 B.parapertussis DNA PCR Not Detected (NotDetected) 03/29/23 21:25 C. pneumoniae DNA (PCR) Not Detected (NotDetected) 03/29/23 21:25 Coronavirus OC43 (PCR) Not Detected (NotDetected) 03/29/23 21:25 Coronavirus HKU1 (PCR) Not Detected (NotDetected) 03/29/23 21:25 Coronavirus 229E (PCR) Not Detected (NotDetected) 03/29/23 21:25 SARS-CoV-2 (PCR) Not Detected (NotDetected) 03/29/23 21:25 Coronavirus NL63 (PCR) Not Detected (NotDetected) 03/29/23 21:25 Human Metapneumovir PCR Not Detected (NotDetected) 03/29/23 21:25 Influenza Type A (PCR) Not Detected (NotDetected) 03/29/23 21:25 Influenza Type B (PCR) Not Detected (NotDetected) 03/29/23 21:25 M. pneumoniae (PCR) Not Detected (NotDetected) 03/29/23 21:25 Parainfluenza 1 (PCR) Not Detected (NotDetected) 03/29/23 21:25 Parainfluenza 2 (PCR) Not Detected (NotDetected) 03/29/23 21:25 Parainfluenza 3 (PCR) Not Detected (NotDetected) 03/29/23 21:25 Parainfluenza 4 (PCR) Not Detected (NotDetected) 03/29/23 21:25 RSV (PCR) Not Detected (NotDetected) 03/29/23 21:25 Entero/Rhino (PCR) Not Detected (NotDetected) 03/29/23 21:25 Impressions Chest X-Ray 03/29/23 21:12 XR chest 1V portable HISTORY: weakness COMPARISON: Chest 02/10/2023. FINDINGS: The cardiac silhouette remains mildly enlarged. There are poststernotomy changes again noted. There is no evidence for pulmonary edema. Mild interstitial thickening at the lung bases. This is likely chronic. There are multiple left-sided rib fractures. Mild left pleural thickening is likely due to the rib fractures. Trace left pleural effusion. No definite pneumothorax. IMPRESSION: Multiple acute left-sided rib fractures and a trace left pleural effusion. No definite pneumothorax. ACT 112: Negative or not required by law. Electronically signed by: Reinaldo Nunez M.D. 03/29/2023 10:49 PM Ankle X-Ray 03/29/23 21:57 XR ankle RT min 3V routine, XR foot RT min 3V routine CLINICAL HISTORY: fall. Right ankle and foot pain. COMPARISON STUDY: None. FINDINGS: Soft tissue swelling within the right ankle. Vascular calcifications are noted. There is a plantar heel spur. No acute fracture or dislocation within the right ankle or right foot. The bones are osteopenic. The Lisfranc joint is intact. Mild degenerative changes within the interphalangeal joints and first MTP joint. IMPRESSION: No fractures within the right ankle or right foot. ACT 112: Negative or not required by law. Electronically signed by: Reinaldo Nunez M.D. 03/29/2023 11:01 PM Foot X-Ray 03/29/23 21:57 XR ankle RT min 3V routine, XR foot RT min 3V routine CLINICAL HISTORY: fall. Right ankle and foot pain. COMPARISON STUDY: None. FINDINGS: Soft tissue swelling within the right ankle. Vascular calcifications are noted. There is a plantar heel spur. No acute fracture or dislocation within the right ankle or right foot. The bones are osteopenic. The Lisfranc joint is intact. Mild degenerative changes within the interphalangeal joints and first MTP joint. IMPRESSION: No fractures within the right ankle or right foot. ACT 112: Negative or not required by law. Electronically signed by: Reinaldo Nunez M.D. 03/29/2023 11:[address] 03/29/23 21:58 Exam(s): CT C SPINE EXAM: CT Cervical Spine Without Intravenous Contrast CLINICAL HISTORY: Trauma. TECHNIQUE: Axial computed tomography images of the cervical spine without intravenous contrast. CTDI is 21.4 mGy and DLP is 441.72 mGy-cm. Automated exposure control was utilized for the study. A dose lowering technique was utilized adhering to the principles of ALARA. COMPARISON: CT cervical spine 02/10/2023 FINDINGS: Vertebrae: The vertebral bodies are intact without acute osseous traumatic injury. Chronic anterior wedging is noted at C3 level, stable. Mild reversal of the normal cervical lordosis centered at C3. No anterolisthesis or retrolisthesis is identified. The facet joints are well aligned without subluxation or dislocation. The pedicles, transverse processes and spinous processes are intact. Discs/spinal canal/neural foramina: Moderately severe multilevel disc spondylosis with narrowing and marginal hypertrophic changes from C3-C4 through C6-C7. Multilevel bilateral chronic osseous neural foraminal encroachment. Soft tissues: Unremarkable. Lung apices: The included lung apices demonstrate no evidence for acute traumatic injury. IMPRESSION: No acute osseous traumatic injury involving the cervical spine. No appreciable alteration from the prior examination with chronic underlying degenerative changes noted. Electronically signed by: Shmuel Cage MD 03/29/23 23:[address] 03/29/23 21:58 Exam(s): CT HEAD Without Contrast EXAM: CT Head Without Intravenous Contrast CLINICAL HISTORY: Trauma. TECHNIQUE: Axial computed tomography images of the head/brain without intravenous contrast. CTDI is 38.43 mGy and DLP is 546.36 mGy-cm. Automated exposure control was utilized for the study. A dose lowering technique was utilized adhering to the principles of ALARA. COMPARISON: CT head without contrast dated 02/10/2023 FINDINGS: Brain: There are a few areas of decreased attenuation in the deep cerebral white matter consistent with mild small vessel ischemic/degenerative changes. The cerebral and cerebellar sulci are mildly prominent consistent with mild brain atrophy. No hemorrhage. Ventricles: Unremarkable. No ventriculomegaly. Bones/joints: Unremarkable. No acute fracture. Soft tissues: Unremarkable. Vasculature: Atherosclerotic disease involving the cavernous internal carotid arteries and distal vertebral arteries, stable. Sinuses: Unremarkable as visualized. No acute sinusitis. Mastoid air cells: Unremarkable as visualized. No mastoid effusion. IMPRESSION: No acute intracranial process or significant alteration from the previous examination with chronic underlying findings, as noted above. Electronically signed by: Shmuel Cage MD 03/29/23 23:39 PM Abdomen/Pelvis CT 03/29/23 22:20 Exam(s): CT ABDOMEN + PELVIS Without Contrast EXAM: CT Abdomen and Pelvis Without Intravenous Contrast CLINICAL HISTORY: fall, left flank hematoma. TECHNIQUE: Axial computed tomography images of the abdomen and pelvis without intravenous contrast. CTDI is 19.48 mGy and DLP is 940.89 mGy-cm. Automated exposure control was utilized for the study. A dose lowering technique was utilized adhering to the principles of ALARA. COMPARISON: No relevant prior studies available. FINDINGS: Lung bases: Findings regarding the lung bases, please see the CT report of the chest performed concurrently. ABDOMEN: Liver: Enhanced liver is intact without evidence for acute traumatic injury. Gallbladder and bile ducts: Unremarkable. No calcified stones. No ductal dilation. Pancreas: Unremarkable. No ductal dilation. Spleen: The spleen is grossly intact, accounting for limitations with lack of IV contrast. No perisplenic fluid. Adrenals: Unremarkable. No mass. Kidneys and ureters: The kidneys are intact without evidence for acute traumatic injury. No hydronephrosis. No perinephric retroperitoneal injury. Stomach and bowel: No evidence for traumatic bowel injury. No bowel obstruction. PELVIS: Appendix: No findings to suggest acute appendicitis. Bladder: There is an abnormal rounded mass extending from the posterior wall of the bladder, measuring 2.3 x 2.7 x 2.1 cm. This appears to be adjacent distinct from the prostate gland. No stones. Reproductive: The prostate gland is somewhat enlarged with internal calcifications. ABDOMEN and PELVIS: Intraperitoneal space: Unremarkable. No free air. No significant fluid collection. Retroperitoneal space: No retroperitoneal hematoma. Bones/joints: Mildly displaced left lateral sixth through eighth rib fractures noted. Subacute fracture involving the posterior costovertebral margin of the left 12th rib. Straightening of the normal lumbar lordosis. Multilevel disc spondylosis with narrowing and marginal hypertrophic changes. Soft tissues: Superficial subcutaneous fat stranding noted involving the left posterior lateral subcostal and abdominal soft tissues. No well- defined hematoma. There are less prominent changes along the lateral left hip. No subcutaneous emphysema or radiopaque foreign body. Vasculature: Atherosclerotic calcification of the abdominal aorta. No abdominal aortic aneurysm. Lymph nodes: Unremarkable. No enlarged lymph nodes. IMPRESSION: 1. Superficial subcutaneous fat stranding noted involving the left posterior lateral subcostal and abdominal soft tissues. No well-defined hematoma. There are less prominent changes along the lateral left hip. No subcutaneous emphysema or radiopaque foreign body. 2. Displaced left lateral rib fractures noted inferiorly. For full details, please see the CT report of the chest. 3. There is an abnormal presumed incidental rounded mass extending from the posterior wall of the bladder, measuring 2.3 x 2.7 x 2.1 cm. This appears to be adjacent distinct from the prostate gland. The differential considerations include a bladder neoplasm versus atypical pedunculated extension of tissue from the prostate gland. Recommend dedicated contrast imaging, when appropriate. Electronically signed by: Shmuel Cage MD 03/29/23 23:[address] 03/29/23 22:20 Exam(s): CT CHEST Without Contrast EXAM: CT Chest Without Intravenous Contrast CLINICAL HISTORY: fall, left flank hematoma. TECHNIQUE: Axial computed tomography images of the chest without intravenous contrast. CTDI is 19.42 mGy and DLP is 666.06 mGy-cm. Automated exposure control was utilized for the study. A dose lowering technique was utilized adhering to the principles of ALARA. COMPARISON: No relevant prior studies available. FINDINGS: Lungs: Curvilinear changes noted involving the posterior left lung. Less prominent dependent changes noted posteriorly on the right. No pulmonary contusive injury. Pleural space: Small volume left hemothorax with intermediate density fluid layering posteriorly on the left measuring up to 1.5 cm. No loculation. No pneumothorax. Heart: Surgical changes consistent with prior CABG. Cardiomegaly with extensive coronary artery calcification. No pericardial effusion. Mediastinum: No mediastinal traumatic injury. Bones/joints: Displaced left lateral fourth through seventh rib fractures. Nondisplaced left lateral eighth rib fracture. Remote left posterior medial 11th and 12th rib fractures. The thoracic vertebral bodies are intact. The sternum is intact with sternotomy wires. No displaced right rib fracture. No dislocation. Soft tissues: Unremarkable. Vasculature: The ascending aorta is borderline ectatic. The aortic arch and descending aorta are normal in caliber. Extensive atherosclerotic calcification. No thoracic aortic aneurysm. Lymph nodes: Unremarkable. No enlarged lymph nodes. IMPRESSION: 1. Displaced left lateral fourth through seventh rib fractures. Nondisplaced left lateral eighth rib fracture. 2. Small volume left hemothorax with intermediate density fluid layering posteriorly on the left measuring up to 1.5 cm. No loculation. No pneumothorax. 3. Curvilinear changes noted involving the posterior left lung, most consistent with compressive atelectasis. Less prominent dependent atelectatic changes noted posteriorly on the right. No pulmonary contusive injury. Electronically signed by: Shmuel Cage MD 03/29/23 23:48 PM Code Status & VTE Plan VTE Prophylaxis Plan VTE Prophylaxis will be ordered: Yes
[2023-03-30] MEDS ORDERED: POLYETHYLENE (MIRALAX) 17 GM PACK PO PRN ×2 (06:42)
[2023-03-30] MEDS ORDERED: DEXTROSE 50% 50 ML SYRINGE IV PRN (06:42)
[2023-03-30] MEDS ORDERED: CARBOHYDRATES FOR HYPOGLYCEMIA PO PRN (06:42)
[2023-03-30] MEDS ORDERED: GLUCOSE 10 TAB/TUBE PO PRN (06:42)
[2023-03-30] MEDS ORDERED: GLUCAGON FOR INJ 1 MG VIAL SQ PRN (06:42)
[2023-03-30] MEDS ORDERED: GLUCOSE 40% GEL 15 GM TUBE PO PRN (06:42)
[2023-03-30] MEDS ORDERED: bisacodyL 10 MG SUPP PR PRN (06:42)
[2023-03-30] MEDS ORDERED: NITROGLYCERIN SL 0.4 MG/TAB TAB SL PRN (06:42)
[2023-03-30] MEDS ORDERED: BUTT PASTE (ZINC OXIDE 16%) 171 APPLN/57 GM JAR TOP PRN (06:55)
[2023-03-30 08:06] LABS: Basophils # (auto) 0.01 K/uL (0.00-0.20); Basophils % (auto) 0.2 %; Eosinophils # (auto) 0.07 K/uL (0.00-0.50); Eosinophils % (auto) 1.1 %; Hematocrit (blood only) 29.7 % (42.0-52.0); Hemoglobin 9.9 g/dl (14.0-18.0); Immature Granulocytes # (auto) 0.02 K/uL (0.01-0.20); Immature Granulocytes % (auto) 0.3 %; Lymphocytes # (auto) 1.17 K/uL (1.20-3.40); Lymphocytes % (auto) 18.1 %; Mean Corpuscular Hemoglobin 32.5 pg (25.0-34.0); Mean Corpuscular Hgb Conc 33.3 g/dL (32.0-36.0); Mean Corpuscular Volume 97.4 fL (80.0-100.0); Mean Platelet Volume 9.3 fL (9.4-12.4); Monocytes # (auto) 0.59 K/uL (0.11-0.59); Monocytes % (auto) 9.1 %; Neutrophils # (auto) 4.59 K/uL (1.40-6.50); Neutrophils % (auto) 71.2 %; Platelet Count 158 K/uL (130-400); RDW Coefficient of Variation 13.6 % (11.5-14.5); RDW Standard Deviation 48.5 fL (36.4-46.3); Red Blood Count 3.05 M/uL (4.70-6.10); White Blood Count 6.45 K/ul (4.8-10.8)
[2023-03-30 08:32] LABS: Calcium 9.2 mg/dl (8.6-10.3); Magnesium 1.7 mg/dl (1.7-2.4); Potassium 3.7 mmol/L (3.5-5.1)
--- NOTE | 2023-03-30 08:32 | XRay Report ---
XR chest 1V portable HISTORY: left hemothorax COMPARISON: Chest CT 03/29/2023. FINDINGS: Multiple left-sided rib fractures are again noted. No pneumothorax. A trace left pleural ef fusion persists. The right lung remains clear. The heart is borderline enlarged. Poststernotomy peralta es are again noted. There are degenerative changes within the shoulders. IMPRESSION: Multiple left rib fractures and a trace left pleural effusion again noted. No pneumothorax. ACT 112: Negative or not required by law. Electronically signed by: Reinaldo Nunez M.D. 03/30/2023 8:31 AM
[2023-03-30] MEDS: SODIUM CHLORIDE 0.9% 1,000 ML IV SCH ×2 (08:34→17:30)
[2023-03-30] MEDS: cefTRIAXone SODIUM 1,000 MG in DEXTROSE 5 % MINI-B 50 ML IV SCH (08:34)
[2023-03-30] MEDS: RANOLAZINE 500 MG ER TAB PO SCH ×2 (08:37→20:59)
[2023-03-30 08:38] LABS: BUN Creatinine Ratio 21.9 (10-20); Creatinine Clr Calc Pharmacy 35.2 ml/min; Est GFR (African American) 49.8 ml/min; Est GFR (Non-African American) 42.9 ml/min
[2023-03-30] MEDS: DOCUSATE SODIUM 100 MG CAP PO SCH ×2 (08:38→20:59)
[2023-03-30] MEDS: CHOLECALCIFEROL 1,000 UNITS 25 MCG TAB PO SCH (08:40)
[2023-03-30] MEDS: AMIODARONE 200 MG TAB PO SCH (08:40)
[2023-03-30] MEDS: ROSUVASTATIN CALCIUM 20 MG TAB PO SCH (08:41)
[2023-03-30] MEDS ORDERED: LANTUS PER UNIT CHARGE SQ SCH (09:00)
[2023-03-30] MEDS ORDERED: CLOPIDOGREL BISULFATE 75 MG TAB PO SCH (09:00)
[2023-03-30] MEDS ORDERED: ASPIRIN 81 MG ECTAB PO SCH (09:00)
[2023-03-30] MEDS: INSULIN ASPART PER UNIT CHARGE SC SCH ×4 (10:21→20:59)
[2023-03-30] MEDS: LANTUS PER UNIT CHARGE SQ SCH (10:21)
--- NOTE | 2023-03-30 10:41 | Pulmonary Consultation ---
Date of Consultation March 30, 2023 Assessment & Plan (1) Pleural effusion, left: (2) Left rib fracture: Encounter type: initial encounter Rib fracture type: multiple ribs Fracture type: closed Qualified Code(s): S22.42XA - Multiple fractures of ribs, left side, initial encounter for closed fracture (3) Hematoma of left flank: Encounter type: initial encounter Qualified Code(s): S30.1XXA - Contusion of abdominal wall, initial encounter Plan 87-year-old male with a history of atrial fibrillation, coronary artery disease on dual antiplatelet therapy, hypertension and frequent falls who presented to the hospital due [facility] a [facility]. CT chest with evidence of likely small hemothorax with displaced left lateral fourth through seventh rib fractures and nondisplaced left lateral eighth rib fractures. Patient is currently comfortable on room air and hemodynamics are stable. I have placed his dual antiplatelet therapy on hold given his anemia and evidence of a small hemothorax on CT chest. Repeat x-ray this morning does not show any increasing effusion. The effusion is too small for drainage at this time. Recommend repeating chest x-ray in 2 to 3 days which can be done as an outpatient as long as he stays stable over the next 24 hours. If x-ray remained stable on follow-up in 2 to 3 days, can likely restart aspirin and Plavix. Recommend pulmonary toilet with incentive spirometry. Supplemental oxygen as needed and multimodal pain control for rib fractures. No further recommendations at this time. Thank you for the consult. Please call with questions. History of Present Illness Reason for Consultation: Rib fractures and possible hemothorax Attending Physician: Bisi Peck MD History of Present Illness 87-year-old male who currently lives in a retirement facility with frequent falls, type 2 diabetes mellitus, CKD stage IV, hyperlipidemia and chronic coronary artery disease status post stenting, CABG, paroxysmal atrial fibrillation, hypertension and neuropathy who presented with fall and left rib fractures. Patient denies any significant shortness of breath. He endorses some mild pleurisy on the left. CT chest was personally reviewed and obtained 03/29/2023. Displaced left lateral fourth through seventh rib fractures noted and nondisplaced left lateral eighth rib fractures. Small volume left hemothorax with intermediate density fluid layering noted measuring about 1.5 cm. Follow-up chest x-ray 03/30/2023 noted multiple left rib fractures with a trace pleural effusion. Patient on Plavix. He has had a drop in his hemoglobin from 12.4-9.8. Last hemoglobin check prior to this admission was 02/13/2023. INR and PTT unremarkable on admission. Allergies Allergy/AdvReac Type Severity Reaction Status Date / Time No Known Allergies Allergy Verified 03/29/23 21:44 Home Medications Medication Instructions Recorded Confirmed Type insulin glargine 100 unit/mL (3 25 unit subcut QAM 09/23/22 03/29/23 History mL) subcutaneous pen (Lantus Solostar U-100 Insulin) metformin 500 mg tablet,extended See Rx Instructions .Route .COMPLEX 09/23/22 03/29/23 History release 24 hr amiodarone 200 mg tablet 200 mg PO QAM 11/27/22 03/29/23 History aspirin 81 mg tablet,delayed 81 mg PO DAILY 11/27/22 03/29/23 History release clopidogrel 75 mg tablet 75 mg PO DAILY 11/27/22 03/29/23 History rosuvastatin 20 mg tablet 20 mg PO DAILY 11/27/22 03/29/23 History cholecalciferol (vitamin D3) 50 50 mcg PO QAM 02/10/23 03/29/23 History mcg (2,000 unit) tablet (Vitamin D3) bisacodyl 10 mg rectal suppository 10 mg WA DAILY PRN Constipation 03/29/23 03/29/23 History docusate sodium 100 mg capsule 100 mg PO BID 03/29/23 03/29/23 History magnesium hydroxide 400 mg/5 mL 30 ml PO DAILY PRN Constipation 03/29/23 03/29/23 History oral suspension (Milk of Magnesia) ondansetron 4 mg disintegrating 4 mg PO Q4H PRN NAUSEA/VOMITING 03/29/23 03/29/23 History tablet polyethylene glycol 3350 17 17 g PO QDL PRN Constipation 03/29/23 03/29/23 History gram/dose oral powder (Miralax) ranolazine 500 mg tablet,extended 500 mg PO BID 03/29/23 03/29/23 History release,12 hr sodium phosphates 19 gram-7 118 ml WA DAILY PRN Constipation 03/29/23 03/29/23 History gram/118 mL enema (Fleet Enema) zinc oxide 12 % topical cream 1 applic topical TID PRN Skin 03/29/23 03/29/23 History (Delonte Protect (zinc oxide)) Irritation Patient History Medical History (Updated 03/30/23 @ 11:53 by Omero Melton MD) Pleural effusion, left Left rib fracture Paroxysmal atrial fibrillation Acute hyponatremia Falls Diabetes mellitus CAD (coronary artery disease) Dyslipidemia Surgical History History of appendectomy S/P CABG x 3 "s/[place] [facility] [place], SVG-left circ, SVG-post desc art " Family History Other Dementia Heart disease Stroke Social History Smoking Status: Former smoker Tobacco Type: Cigarettes Second Hand Exposure: No; Do You Dip or Chew Tobacco: No; Tobacco Cessation Education Requested by Patient: No Hx Alcohol Use: No Hx Substance Use: No Preferred Language: Vietnamese Communication Ability: Effective Cage Clerk Required: No Beliefs That Will Affect Care: None Current Living Situation: Spouse Current Living Situation Comment: Lives w/ at home current occupational status: 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 Patient is in no apparent distress. Patient is well-developed. Eyes: Pupils are equal round and reactive to light. Conjunctivae are normal. Anicteric sclera. Ears nose, mouth and throat: Mallampati class 2. Normal posterior oropharynx. Uvula is midline. Neck: Trachea is midline. Visual inspection is normal. Respiratory: Clear to auscultation bilaterally. No use of accessory muscles. No significant clubbing noted. Cardiovascular: Regular rate and rhythm. No murmurs. No edema. Gastrointestinal: Normal bowel sounds, soft, nontender and nondistended. No hepatosplenomegaly noted. Musculoskeletal: No cyanosis. Patient is able to move all extremities. S trength is 5 out of 5 in the upper and lower extremities. Point rib tenderness noted in the left lower lobe region. Skin: No rashes, warm dry and intact. Large left flank hematoma noted. Neurologic: No obvious focal neurological deficits seen. Psychiatric: Alert and oriented x3 with a euthymic affect. Results & Data Results & Data Vital Signs (Past 12 Hours) Vital Signs Pulse Pulse Resp BP BP Pulse Ox O2 Del Method 03/30/23 07:53 61 20 146/67 H 97 Room Air 03/30/23 05:30 15 03/30/23 05:20 20 03/30/23 05:10 63 13 93 03/30/23 05:01 58 L 22 03/30/23 05:01 149/102 H 03/30/23 05:00 64 15 03/30/23 04:50 57 L 17 96 03/30/23 04:40 66 16 99 03/30/23 04:30 65 14 99 03/30/23 04:30 187/97 H 03/30/23 04:29 68 20 98 03/30/23 04:29 192/123 H 03/30/23 04:20 21 03/30/23 04:10 63 24 03/30/23 04:00 133/92 03/30/23 04:00 66 17 03/30/23 03:50 60 15 03/30/23 03:40 60 14 03/30/23 03:31 12 03/30/23 03:31 156/73 H 03/30/23 03:30 16 03/30/23 03:20 61 16 97 03/30/23 03:10 59 L 16 97 03/30/23 03:00 155/94 H 03/30/23 03:00 72 23 91 03/30/23 02:50 58 L 20 93 03/30/23 02:30 58 L 15 156/85 H 95 Room Air 03/30/23 02:10 62 03/30/23 02:00 57 L 22 150/102 H 92 03/30/23 01:00 57 L 14 145/76 H 96 03/30/23 00:30 56 L 14 147/89 H 93 03/30/23 00:00 56 L 12 150/81 H 94 03/29/23 23:30 56 L 16 157/75 H 94 03/29/23 23:00 57 L 14 163/81 H 95 03/29/23 22:49 64 20 176/90 H 96 PG Care Time/CCT Total # of Minutes Spent Total Time Spent with Patient: Total time spent is greater than 50% in coordination of care (as documented) at patient's floor/unit and/or counseling patient: Coding Level of Care Code 40258 INT INP/OBS CARE 2/55MIN Diagnoses Pleural effusion, left J90 Closed fracture of multiple ribs of left side, initial encounter S22.42XA Encounter type: initial encounter Rib fracture type: multiple ribs Fracture type: closed Hematoma of left flank, initial encounter S30.1XXA Encounter type: initial encounter
--- NOTE | 2023-03-30 10:46 | Urology Consultation ---
Date of Consultation March 30, 2023 Assessment & Plan (1) Bladder mass: We reviewed the finding of the bladder mass on his CT scan. Based on the scan, I cannot definitively tell him whether this is bladder cancer or just related to extension of his prostate gland. Although there is no family history of malignancy, he does have a history of smoking which would put him at risk for bladder cancer. For further evaluation, I would recommend that we perform cystoscopy; this can be done as an outpatient since he is currently emptying his bladder well and not having any hematuria. Urology will coordinate outpatient follow-up with cystoscopy and further management of bladder mass We will sign off for now, please call with any questions or concerns History of Present Illness Reason for Consultation: Bladder mass Attending Physician: Bisi Peck MD History of Present Illness This is an 87-year-old male who presented to the emergency department on 03/29/2023 after sustaining a fall at his care home. Work-up was notable for a CT scan which demonstrated possible bladder mass. Urology was consulted regarding this mass. At the bedside, the patient describes some pain from his rib fractures. He denies any history of hematuria. He has no known urologic history. He is not on any medications for his bladder or prostate. There is no known family history of malignancy. Labs reviewed: 03/30/2023: WBC 6.45, hemoglobin 9.9, creatinine 1.46 03/30/2023: Urinalysis with 1+ blood, 1+ leukocyte esterase, negative bacteria, negative nitrites I independently reviewed his CT scan from 03/29/2023. Both kidneys are in normal position with no hydronephrosis and no obvious masses or stones on either side. His bladder is notable for a 2.6 cm hyperdense area which seems to be separate from his prostate -this raises concern for possible bladder cancer. The prostate itself is moderately enlarged. Allergies Allergy/AdvReac Type Severity Reaction Status Date / Time No Known Allergies Allergy Verified 03/29/23 21:44 Home Medications Medication Instructions Recorded Confirmed Type insulin glargine 100 unit/mL (3 25 unit subcut QAM 09/23/22 03/29/23 History mL) subcutaneous pen (Lantus Solostar U-100 Insulin) metformin 500 mg tablet,extended See Rx Instructions .Route .COMPLEX 09/23/22 03/29/23 History release 24 hr amiodarone 200 mg tablet 200 mg PO QAM 11/27/22 03/29/23 History aspirin 81 mg tablet,delayed 81 mg PO DAILY 11/27/22 03/29/23 History release clopidogrel 75 mg tablet 75 mg PO DAILY 11/27/22 03/29/23 History rosuvastatin 20 mg tablet 20 mg PO DAILY 11/27/22 03/29/23 History cholecalciferol (vitamin D3) 50 50 mcg PO QAM 02/10/23 03/29/23 History mcg (2,000 unit) tablet (Vitamin D3) bisacodyl 10 mg rectal suppository 10 mg AK DAILY PRN Constipation 03/29/23 03/29/23 History docusate sodium 100 mg capsule 100 mg PO BID 03/29/23 03/29/23 History magnesium hydroxide 400 mg/5 mL 30 ml PO DAILY PRN Constipation 03/29/23 03/29/23 History oral suspension (Milk of Magnesia) ondansetron 4 mg disintegrating 4 mg PO Q4H PRN NAUSEA/VOMITING 03/29/23 03/29/23 History tablet polyethylene glycol 3350 17 17 g PO QDL PRN Constipation 03/29/23 03/29/23 History gram/dose oral powder (Miralax) ranolazine 500 mg tablet,extended 500 mg PO BID 03/29/23 03/29/23 History release,12 hr sodium phosphates 19 gram-7 118 ml AK DAILY PRN Constipation 03/29/23 03/29/23 History gram/118 mL enema (Fleet Enema) zinc oxide 12 % topical cream 1 applic topical TID PRN Skin 03/29/23 03/29/23 History (Delonte Protect (zinc oxide)) Irritation Patient History Medical History Acute hyponatremia CAD (coronary artery disease) Diabetes mellitus Dyslipidemia Falls Paroxysmal atrial fibrillation Surgical History History of [place]ectomy S[place]P CABG x 3 [place] [facility] [place], SVG-left circ, SVG-post desc art " Family History Other Dementia Heart disease Stroke Social History Smoking Status: Former smoker Tobacco Type: Cigarettes Second Hand Exposure: No; Do You Dip or Chew Tobacco: No; Tobacco Cessation Education Requested by Patient: No Hx Alcohol Use: No Hx Substance Use: No Preferred Language: Bengali Communication Ability: Effective Stone Sandblaster Required: No Beliefs That Will Affect Care: None Current Living Situation: Spouse Current Living Situation Comment: Lives w/ at home current occupational status: 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 Physical Exam Constitutional: well developed and well nourished; no acute distress Eyes: + anicteric sclerae; pupils not irregula r Respiratory: normal respiratory effort; no respiratory distress, does not use accessory muscles and no cough Cardiovascular: well perfused Gastrointestinal (Abdomen): Inspection/Auscultation: abdomen normal to inspection; abdomen not distended Musculoskeletal: Extremities: extremities normal to inspection Skin: normal turgor; no rashes and no lesions Neurologic: moves all extremities and awake Psychiatric: Orientation: alert and oriented x 3 Results & Data Vital Signs (Past 12 Hours) Vital Signs Pulse Pulse Resp BP BP Pulse Ox O2 Del Method 03/30/23 07:53 61 20 146/67 H 97 Room Air 03/30/23 05:30 15 03/30/23 05:20 20 03/30/23 05:10 63 13 93 03/30/23 05:01 58 L 22 03/30/23 05:01 149/102 H 03/30/23 05:00 64 15 03/30/23 04:50 57 L 17 96 03/30/23 04:40 66 16 99 03/30/23 04:30 65 14 99 03/30/23 04:30 187/97 H 03/30/23 04:29 68 20 98 03/30/23 04:29 192/123 H 03/30/23 04:20 21 03/30/23 04:10 63 24 03/30/23 04:00 133/92 03/30/23 04:00 66 17 03/30/23 03:50 60 15 03/30/23 03:40 60 14 11/12/23 03:31 12 03/30/23 03:31 156/73 H 03/30/23 03:30 16 03/30/23 03:20 61 16 97 03/30/23 03:10 59 L 16 97 03/30/23 03:00 155/94 H 03/30/23 03:00 72 23 91 03/30/23 02:50 58 L 20 93 03/30/23 02:30 58 L 15 156/85 H 95 Room Air 03/30/23 02:10 62 03/30/23 02:00 57 L 22 150/102 H 92 03/30/23 01:00 57 L 14 145/76 H 96 03/30/23 00:30 56 L 14 147/89 H 93 03/30/23 00:00 56 L 12 150/81 H 94 03/29/23 23:30 56 L 16 157/75 H 94 03/29/23 23:00 57 L 14 163/81 H 95 03/29/23 22:49 64 20 176/90 H 96 PG Care Time/CCT Total # of Minutes Spent Total Time Spent with Patient: Total time spent is greater than 50% in coordination of care (as documented) at patient's floor/unit and/or counseling patient: Coding Level of Care Code 04981 INT INP/OBS CARE 2/55MIN Diagnoses Bladder mass N32.89
--- NOTE | 2023-03-30 16:47 | Communication Note ---
Date of Service: March 30, 2023 The patient was seen and examined in emergency room. 87 years old male with significant past medical history as mentioned below and with a history of fr equent falls and was brought in with another fall with pain and unsteadiness. Noted to have multiple rib fractures with hemothorax and also possible bladder mass. Has been seen by can intake worker and also the urologist. Remains medically stable during my examination. He will left for progress note tomorrow. Dr Smitha Peck
[2023-03-30] MEDS ORDERED: hydrALAZINE HCL 20 MG/ML VIAL IV STA (20:06)
[2023-03-30] MEDS ORDERED: LORazepam 0.25 MG in SYRINGE 0.125 ML IV STA (20:07)
[2023-03-31] MEDS: SODIUM CHLORIDE 0.9% 1,000 ML IV SCH ×2 (05:08→15:50)
[2023-03-31] MEDS: cefTRIAXone SODIUM 1,000 MG in DEXTROSE 5 % MINI-B 50 ML IV SCH (05:48)
--- NOTE | 2023-03-31 05:57 | Electrocardiogram Report ---
Test Reason : Blood Pressure : / mmHG Vent. Rate : 065 BPM Atrial Rate : 065 BPM P-R Int : 176 ms QRS Dur : 162 ms QT Int : 488 ms P-R-T Axes : 004 041 055 degrees QTc Int : 507 ms Normal sinus rhythm Right bundle branch block Abnormal ECG When compared with ECG of 10-FEB-2023 12:17, MT interval has decreased Criteria for Inferior infarct are no longer Present Confirmed by Shahbaz Humphrey ([id number]) on 03/31/2023 5:57:32 AM Referred By: REFERRED SELF Confirmed By:Shahbaz Humphrey
[2023-03-31] MEDS: INSULIN ASPART PER UNIT CHARGE SC SCH ×4 (08:46→20:58)
[2023-03-31] MEDS: LANTUS PER UNIT CHARGE SQ SCH (08:47)
[2023-03-31] MEDS: CHOLECALCIFEROL 1,000 UNITS 25 MCG TAB PO SCH (08:48)
[2023-03-31] MEDS: DOCUSATE SODIUM 100 MG CAP PO SCH ×2 (08:48→20:57)
[2023-03-31] MEDS: RANOLAZINE 500 MG ER TAB PO SCH ×2 (08:49→20:57)
[2023-03-31] MEDS: AMIODARONE 200 MG TAB PO SCH (08:49)
[2023-03-31] MEDS: ROSUVASTATIN CALCIUM 20 MG TAB PO SCH (08:49)
[2023-03-31 08:50] LABS: Estimated Average Glucose 192 mg/dl; Hemoglobin A1C 8.3 % (4.5-5.6)
[2023-03-31] MEDS: METOPROLOL TARTRATE 25 MG TAB PO SCH ×2 (09:01→20:58)
[2023-03-31 10:05] LABS: Basophils # (auto) 0.02 K/uL (0.00-0.20); Basophils % (auto) 0.3 %; Eosinophils # (auto) 0.03 K/uL (0.00-0.50); Eosinophils % (auto) 0.4 %; Hematocrit (blood only) 28.4 % (42.0-52.0); Immature Granulocytes # (auto) 0.02 K/uL (0.01-0.20); Immature Granulocytes % (auto) 0.3 %; Lymphocytes # (auto) 0.88 K/uL (1.20-3.40); Lymphocytes % (auto) 11.6 %; Mean Corpuscular Hemoglobin 33.4 pg (25.0-34.0); Mean Corpuscular Hgb Conc 35.2 g/dL (32.0-36.0); Mean Platelet Volume 9.3 fL (9.4-12.4); Monocytes # (auto) 0.68 K/uL (0.11-0.59); Monocytes % (auto) 8.9 %; Neutrophils # (auto) 5.98 K/uL (1.40-6.50); Neutrophils % (auto) 78.5 %; Platelet Count 173 K/uL (130-400); RDW Coefficient of Variation 13.8 % (11.5-14.5); RDW Standard Deviation 47.4 fL (36.4-46.3); Red Blood Count 2.99 M/uL (4.70-6.10); White Blood Count 7.61 K/ul (4.8-10.8)
[2023-03-31 10:07] LABS: Albumin Globulin Ratio 1.2 (0.9-2); Albumin Level 3.3 gm/dl (3.4-5.0); BUN Creatinine Ratio 16.4 (10-20); Bilirubin,Total 0.7 mg/dl (0.2-1.0); Calcium 8.3 mg/dl (8.6-10.3); Creatinine Clr Calc Pharmacy 37.3 ml/min; Est GFR (African American) 55.2 ml/min; Est GFR (Non-African American) 47.6 ml/min; Globulin 2.8 gm/dl (2.5-4.0); Magnesium 1.6 mg/dl (1.7-2.4); Phosphorus 2.8 mg/dl (2.5-4.9); Potassium 3.7 mmol/L (3.5-5.1); Total Protein 6.1 gm/dl (6.0-8.3)
[2023-03-31] MEDS ORDERED: LORazepam 0.25 MG in SYRINGE 0.125 ML IV STA (11:45)
[2023-03-31] MEDS ORDERED: hydrALAZINE HCL 20 MG/ML VIAL IV STA (11:45)
--- NOTE | 2023-03-31 16:33 | Hospitalist Progress Note ---
Date of Service March 31, 2023 Assessment & Plan (1) Multiple falls: Plan: 87-year-old male currently living at [facility] and with past medical history significant for frequent falls, type 2 diabetes, CKD stage III, hyperlipidemia, chronic angina, CAD s/p stenting s/p CABG, paroxysmal atrial fibrillation, hypertension, enlarged aorta, neuropathy, comes because of fall and found to left rib fractures and small left hemothorax and also questionable bladder mass. 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 No pneumothorax Appreciate pulmonary input and recommendation No further intervention We will repeat chest x-ray tomorrow to document the hemothorax Urinary bladder mass Noted to have a posterior bladder wall mass measuring 2.3 x 2.7 x 2.1 cm adjacent to prostate gland but distinct from it He has been passing urine normally Appreciate urology consult and recommendation for outpatient cystoscopy and evaluation of the mass This was discussed with the CAD s/p stent and s/p CABG On aspirin Plavix and statin Chronic angina On ranolazine dose was decreased recently for hypotension KIKI on CKD stage III Presented with creatinine 1.7 Baseline creatinine seems to be around 1.5 Getting fluids Avoid nephrotoxic agents Creatinine became normalized with intravenous fluid Advised to drink more fluid and IV fluid was stopped Possible UTI Rocephin follow cultures. Anemia Hemoglobin 9.8 Lower than recent past Check stool for Hemoccult Diabetes Hold metformin Insulin sliding scale we will monitor the blood sugars Paroxysmal atrial fibrillation On amiodarone Not on anticoagulation because of risk of anticoagulation greater than benefit as per cardio notes Hypertension Currently not on medications because of falls and hypotension DVT prophylaxis SCDs Disposition med/telemetry CODE STATUS DNR/DNI as per discussion with the Case was discussed with the Admission and Anticipated Discharge Date Admission Date: March 30, 2023 Subjective 03/31/2023 The patient was seen and examined in medical telemetry unit in presence of the He has been feeling much better today and complains to have some pain at the left lower chest wall and abdomen area Denies any other symptoms Remains confused occasionally and is agitated at times as per the nurse Review of Systems Review of Systems: Unobtainable due to cognitive status Physical Exam Physical Exam: Lying in bed comfortably Constitutional: + ill appearing and average body habitus Eyes: PERRL, conjunctivae normal, anicteric sclerae ENMT: external ear and nose normal, oropharynx normal Neck: trachea midline, no thyromegaly Respiratory: no respiratory distress Auscultation: + diminished lung sounds and + crackles (Minimal crackles bibasally) Cardiovascular: Rate/Rhythm: regular rate and regular rhythm; not tachycardic Heart Sounds: normal S1, normal S2 and + murmur Extremities: no edema Gastrointestinal (Abdomen): Inspection/Auscultation: normal bowel sounds; abdomen not distended Percussion/Palpation: + abdomen tender (Hypogastrium) and abdomen soft Musculoskeletal: No acute arthritis involving any joint Skin: Bruising involving the left lateral wall of abdomen and lower part of the chest wall Neurologic: normal touch/pain/proprioception and moves all extremities; no focal motor deficits Lymphatic: no cervical or axillary lymphadenopathy Results & Data Results & Data Vital Signs (Past 12 Hours) Vital Signs Temp Pulse Pulse Resp BP Pulse Ox O2 Del Method 03/31/23 15:52 36.6 C 70 16 174/76 H 97 Room Air 03/31/23 14:58 74 03/31/23 14:41 134/59 L 03/31/23 11:45 36.8 C 71 16 206/92 H 95 Room Air 03/31/23 07:58 36.0 C L 95 H 16 189/97 H 95 Room Air 03/31/23 07:24 60 Laboratory Results Short CBC 03/31/23 Range/Units 09:31 WBC 7.61 (4.8-10.8) K/ul Hgb 10.0 L (14.0-18.0) g/dl Hct 28.4 L (42.0-52.0) % Plt Count 173 (130-400) K/uL BMP 03/31/23 09:31 Sodium 134 L Potassium 3.7 Chloride 102 Carbon Dioxide 26 BUN 22 Creatinine 1.34 Glucose 173 H Calcium 8.3 L Liver Function 03/31/23 Range/Units 09:31 Total Bilirubin 0.7 (0.2-1.0) mg/dl AST 26 (13-39) U/L ALT 18 (7-52) U/L Alkaline Phosphatase 45 (34-104) U/L Albumin 3.3 L (3.4-5.0) gm/dl Medications Administered Current Inpatient Medications Acetaminophen (Acetaminophen 325 Mg Tab) 650 mg PO Q4H PRN PRN Reason: Pain or Fever Stop: 04/29/23 06:41 Amiodarone HCl (Amiodarone 200 Mg Tab) 200 mg PO QAM AMY Stop: 04/29/23 08:59 Last Admin: 03/31/23 08:49 Dose: 200 mg Aspirin (Aspirin 81 Mg Ectab) 81 mg PO DAILY AMY Stop: 04/29/23 08:59 Last Admin: 03/30/23 08:40 Dose: 81 mg Bisacodyl (Bisacodyl 10 Mg Supp) 10 mg NM DAILY PRN PRN Reason: Constipation Stop: 04/29/23 06:41 Clopidogrel Bisulfate (Clopidogrel Bisulfate 75 Mg Tab) 75 mg PO DAILY AMY Stop: 04/29/23 08:59 Last Admin: 03/30/23 08:39 Dose: 75 mg Dextrose (Dextrose 50% 50 Ml Syringe) 25 - 50 ml IV UD PRN; Protocol PRN Reason: Hypoglycemia Protocol Stop: 04/29/23 06:41 Docusate Sodium (Docusate Sodium 100 Mg Cap) 100 mg PO BID AMY Stop: 04/29/23 08:59 Last Admin: 03/31/23 08:48 Dose: 100 mg Glucagon (Glucagon For Inj 1 Mg Vial) 1 mg SQ UD PRN; Protocol PRN Reason: Hypoglycemia Protocol Stop: 04/29/23 06:41 Glucose (Glucose 10 Tab/Tube) 4 - 8 tab PO UD PRN; Protocol PRN Reason: Hypoglycemia Treatment Stop: 04/29/23 06:41 Glucose (Glucose 40% Gel 15 Gm Tube) 15 - 30 gm PO UD PRN; Protocol PRN Reason: Hypoglycemia Protocol Stop: 04/29/23 06:41 Sodium Chloride (Nss) 1,000 mls @ 100 mls/hr IV .Q10H AMY Stop: 04/29/23 06:41 Last Admin: 03/31/23 15:50 Dose: 100 mls/hr Ceftriaxone Sodium 1,000 mg/ (Dextrose) 50 mls @ 100 mls/hr IV Q24H AMY; Protocol Stop: 04/09/23 06:41 Last Infusion: 03/31/23 06:35 Dose: Infused Insulin Aspart (Insulin Aspart Per Unit Charge) 0 units SC ACHS [facility] Stop: 04/29/23 07:29 Last Admin: 03/31/23 12:58 Dose: 2 units Insulin Glargine (Lantus Per Unit Charge) 25 units SQ QAM AMY Stop: 04/29/23 08:59 Last Admin: 03/31/23 08:47 Dose: 25 units Metoprolol Tartrate (Metoprolol Tartrate 25 Mg Tab) 25 mg PO BID AMY Stop: 04/30/23 08:59 Last Admin: 03/31/23 09:01 Dose: 25 mg Miscellaneous (Carbohydrates For Hypoglycemia ) 15 - 30 gm PO UD PRN PRN Reason: Hypoglycemia Protocol Stop: 04/29/23 06:41 Last Admin: 03/30/23 17:15 Dose: 15 gm Nitroglycerin (Nitroglycerin Sl 0.4 Mg/Tab Tab) 0.4 mg SL Q5M PRN PRN Reason: Chest Pain Stop: 04/29/23 06:41 Petrolatum (Butt Paste (Zinc Oxide 16%) 171 Appln/57 Gm Jar) 1 appln TOP TID PRN PRN Reason: Skin Irritation Stop: 04/29/23 06:54 Polyethylene Glycol (Polyethylene (Miralax) 17 Gm Pack) 17 gm PO DAILY PRN PRN Reason: Constipation Stop: 04/29/23 06:41 Ranolazine (Ranolazine 500 Mg Er Tab) 500 mg PO BID [facility] Stop: 04/29/23 08:59 Last Admin: 03/31/23 08:49 Dose: 500 mg Rosuvastatin Calcium (Rosuvastatin Calcium 20 Mg Tab) 20 mg PO DAILY [facility] Stop: 04/29/23 08:59 Last Admin: 03/31/23 08:49 Dose: 20 mg Vitamin D (Cholecalciferol 1,000 Units 25 Mcg Tab) 2,000 units PO QAM [facility] Stop: 04/29/23 08:59 Last Admin: 03/31/23 08:48 Dose: 2,000 units
[2023-03-31] MEDS ORDERED: LORazepam 0.25 MG in SYRINGE 0.125 ML IV PRN (19:41)
[2023-03-31] MEDS ORDERED: hydrALAZINE HCL 20 MG/ML VIAL IV ONE (20:43)
[2023-03-31] MEDS: ACETAMINOPHEN 325 MG TAB PO PRN (20:57)
[2023-04-01] MEDS: SODIUM CHLORIDE 0.9% 1,000 ML IV SCH ×2 (04:20→14:25)
[2023-04-01] MEDS: cefTRIAXone SODIUM 1,000 MG in DEXTROSE 5 % MINI-B 50 ML IV SCH (06:08)
[2023-04-01 08:07] LABS: Basophils # (auto) 0.03 K/uL (0.00-0.20); Basophils % (auto) 0.4 %; Eosinophils # (auto) 0.14 K/uL (0.00-0.50); Eosinophils % (auto) 1.7 %; Hematocrit (blood only) 32.4 % (42.0-52.0); Hemoglobin 11.4 g/dl (14.0-18.0); Immature Granulocytes # (auto) 0.03 K/uL (0.01-0.20); Immature Granulocytes % (auto) 0.4 %; Lymphocytes # (auto) 1.45 K/uL (1.20-3.40); Lymphocytes % (auto) 17.2 %; Mean Corpuscular Hemoglobin 33.1 pg (25.0-34.0); Mean Corpuscular Hgb Conc 35.2 g/dL (32.0-36.0); Mean Corpuscular Volume 94.2 fL (80.0-100.0); Mean Platelet Volume 9.1 fL (9.4-12.4); Monocytes # (auto) 0.71 K/uL (0.11-0.59); Monocytes % (auto) 8.4 %; Neutrophils # (auto) 6.06 K/uL (1.40-6.50); Neutrophils % (auto) 71.9 %; Platelet Count 190 K/uL (130-400); RDW Coefficient of Variation 13.7 % (11.5-14.5); RDW Standard Deviation 47.3 fL (36.4-46.3); Red Blood Count 3.44 M/uL (4.70-6.10); White Blood Count 8.42 K/ul (4.8-10.8)
[2023-04-01 08:18] LABS: BUN Creatinine Ratio 14.3 (10-20); Calcium 8.9 mg/dl (8.6-10.3); Creatinine Clr Calc Pharmacy 40.5 ml/min; Est GFR (African American) 63.7 ml/min; Potassium 3.2 mmol/L (3.5-5.1)
[2023-04-01] MEDS: ACETAMINOPHEN 325 MG TAB PO PRN (08:35)
[2023-04-01] MEDS: AMIODARONE 200 MG TAB PO SCH (08:36)
[2023-04-01] MEDS: CHOLECALCIFEROL 1,000 UNITS 25 MCG TAB PO SCH (08:36)
[2023-04-01] MEDS: ROSUVASTATIN CALCIUM 20 MG TAB PO SCH (08:37)
[2023-04-01] MEDS: DOCUSATE SODIUM 100 MG CAP PO SCH ×2 (08:37→21:00)
[2023-04-01] MEDS: RANOLAZINE 500 MG ER TAB PO SCH ×2 (08:37→20:59)
[2023-04-01] MEDS: METOPROLOL TARTRATE 25 MG TAB PO SCH ×2 (08:37→20:08)
[2023-04-01] MEDS: INSULIN ASPART PER UNIT CHARGE SC SCH ×4 (08:47→22:15)
[2023-04-01] MEDS: LANTUS PER UNIT CHARGE SQ SCH (08:48)
--- NOTE | 2023-04-01 10:24 | Electrocardiogram Report ---
Test Reason : Blood Pressure : / mmHG Vent. Rate : 058 BPM Atrial Rate : 058 BPM P-R Int : 170 ms QRS Dur : 152 ms QT Int : 552 ms P-R-T Axes : 064 057 094 degrees QTc Int : 541 ms Sinus bradycardia Left atrial enlargement Right bundle branch block T-wave inversion in Anterior leads , consider ischemia Abnormal ECG When compared with ECG of 29-MAR-2023 21:05, T wave inversion now evident in Inferior leads Confirmed by Tre Peña ([id number]) on 04/01/2023 10:24:17 AM Referred By: REFERRED SELF Confirmed By:Tre Peña
--- NOTE | 2023-04-01 12:34 | Urology Progress Note ---
Date of Service April 01, 2023 Assessment & Plan (1) Bladder mass: (2) Hematuria: Plan 87-year-old male who presented to the emergency department on 03/29/2023 after sustaining a fall at his [facility]. Work-up was notable for a CT scan which demonstrated possible bladder mass. Urology was initially consulted regarding this mass and outpatient cystoscopy was recommended. Urology asked to reevaluate patient today due to hematuria. Afebrile and hemodynamically stable. Labs reviewed -WBC 8.42, hemoglobin 11.4, creatinine 1.19. Urine culture 03/30/23 was negative. Charles catheter was placed yesterday due to urinary retention. Overnight, the patient was found to have pulled the catheter out. Nursing staff replaced the Charles catheter and it has been draining with hematuria since then. Patient examined at bedside this afternoon. Upon arrival, Charles catheter was draining with minimal hematuria. Attempted to irrigate catheter, however was unable to aspirate irrigation easily. Suspect that the catheter was in the prostate not the bladder. Discussed with patient/ recommendation to exchange Charles catheter, they were agreeable. Using sterile technique, a 20Fr coud catheter was placed at bedside without difficulty. The catheter was flushed multiple times without difficulty. No clots noted with irrigation. Patient tolerated well. Charles catheter intact, draining pink urine. Continue to monitor. Okay to hand irrigate as needed for clots, retention, suprapubic pain. Urology will coordinate outpatient follow-up with cystoscopy and further management of bladder mass. Urology will follow. Admission and Anticipated Discharge Date Admission Date: March 30, 2023 Subjective Urology asked to reevaluate patient due to hematuria. Patient examined at bedside this afternoon. Awake, resting in bed on arrival. No acute distress. at bedside. Charles intact, draining with minimal hematuria in bag. Urine output for today 125 mL. Chart reviewed Patient noted to be in urinary retention yesterday. Was bladder scanned for 553 and a Charles catheter was placed by nursing staff. Patient was then found overnight to have pulled the Charles catheter out. The catheter was replaced by nursing staff and has noted to be draining with hematuria since then. Aspirin and Plavix on hold per primary. Review of Systems Constitutional: as per Subjective / HPI Genitourinary: + as per Subjective / HPI Physical Exam Constitutional: no acute distress Respiratory: no respiratory distress and no labored breathing Skin: No visible rashes or lesions to exposed skin areas Neurologic: awake Psychiatric: Orientation: alert and cooperative Genitourinary: Charles intact, draining w/hematuria Results & Data Vital Signs (Past 12 Hours) Vital Signs Temp Pulse Pulse Resp BP BP Pulse Ox 04/01/23 11:00 36.4 C L 67 18 118/65 100 04/01/23 07:40 36.4 C L 63 14 199/93 H 98 04/01/23 07:27 55 L O2 Del Method 04/01/23 11:00 Room Air 04/01/23 07:40 Room Air 04/01/23 07:27 PG Care Time/CCT Total # of Minutes Spent Total Time Spent with Patient: Total time spent is greater than 50% in coordination of care (as documented) at patient's floor/unit and/or counseling patient: Coding Level of Care Code 14536 SUB INP/OBS CARE 2/35MIN Diagnoses Bladder mass N32.89 Hematuria R31.9
[2023-04-01] MEDS ORDERED: POTASSIUM CHLORIDE CRTAB 20 MEQ TABCR PO STA (14:15)
--- NOTE | 2023-04-01 14:15 | Hospitalist Progress Note ---
Date of Service April 01, 2023 Assessment & Plan (1) Multiple falls: Plan: 87-year-old male currently living at [facility] and with past medical history significant for frequent falls, type 2 diabetes, CKD stage III, hyperlipidemia, chronic angina, CAD s/p stenting s/p CABG, paroxysmal atrial fibrillation, hypertension, enlarged aorta, neuropathy, comes because of fall and found to left rib fractures and small left hemothorax and also questionable bladder mass. 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 No pneumothorax Appreciate pulmonary input and recommendation No further intervention We will repeat chest x-ray tomorrow to document the hemothorax Chest x-ray will be done on 04/02/2023 Urinary bladder mass Noted to have a posterior bladder wall mass measuring 2.3 x 2.7 x 2.1 cm adjacent to prostate gland but distinct from it He has been passing urine normally Appreciate urology consult and recommendation for outpatient cystoscopy and evaluation of the mass This was discussed with the Has had urinary retention last night 03/31/2023 and required Charles insertion Will be reevaluated by the urologist CAD s/p stent and s/p CABG On aspirin Plavix and statin Chronic angina On ranolazine dose was decreased recently for hypotension KIKI on CKD stage III Presented with creatinine 1.7 Baseline creatinine seems to be around 1.5 Getting fluids Avoid nephrotoxic agents Creatinine became normalized with intravenous fluid Advised to drink more fluid and IV fluid was stopped Potassium was supplemented and kidney function has been normalized Possible UTI Rocephin follow cultures. Urine is not infected and we will discontinue antibiotic after 3 days course Anemia Hemoglobin 9.8 Lower than recent past Check stool for Hemoccult Diabetes Hold metformin Insulin sliding scale we will monitor the blood sugars Paroxysmal atrial fibrillation On amiodarone Not on anticoagulation because of risk of anticoagulation greater than benefit as per cardio notes Can restart aspirin Plavix if the x-ray is not showing any increase in hemothorax Hypertension Currently not on medications because of falls and hypotension DVT prophylaxis SCDs Disposition med/telemetry CODE STATUS DNR/DNI as per discussion with the Case was discussed with the Admission and Anticipated Discharge Date Admission Date: March 30, 2023 Subjective 03/31/2023 The patient was seen and examined in medical telemetry unit in presence of the He has been feeling much better today and complains to have some pain at the left lower chest wall and abdomen area Denies any other symptoms Remains confused occasionally and is agitated at times as per the nurse 04/01/2023 The patient was seen and examined in medical telemetry unit in presence of the He was a little agitated this morning and has been requiring mittens Has been having hematuria and also has had urinary retention last night and required catheterization Denies any other significant symptoms Review of Systems Review of Systems: All systems reviewed and are unremarkable except as noted below Physical Exam Physical Exam: Lying in bed comfortably Constitutional: + ill appearing and average body habitus Eyes: PERRL, conjunctivae normal, anicteric sclerae ENMT: external ear and nose normal, oropharynx normal Neck: trachea midline, no thyromegaly Respiratory: no respiratory distress Auscultation: + diminished lung sounds and + crackles (Minimal crackles bibasally) Cardiovascular: Rate/Rhythm: regular rate and regular rhythm; not tachycardic Heart Sounds: normal S1, normal S2 and + murmur Extremities: no edema Gastrointestinal (Abdomen): Inspection/Auscultation: normal bowel sounds; abdomen not distended Percussion/Palpation: + abdomen tender (Hypogastrium) and abdomen soft Musculoskeletal: No acute arthritis involving any of the joint Neurologic: normal touch/pain/proprioception, moves all extremities and + confused (Pleasantly confused); no focal motor deficits Lymphatic: no cervical or axillary lymphadenopathy Results & Data Results & Data Vital Signs (Past 12 Hours) Vital Signs Temp Pulse Pulse Resp BP BP Pulse Ox 04/01/23 11:00 36.4 C L 67 18 118/65 100 04/01/23 07:40 36.4 C L 63 14 199/93 H 98 04/01/23 07:27 55 L O2 Del Method 04/01/23 11:00 Room Air 04/01/23 07:40 Room Air 04/01/23 07:27 Laboratory Results Short CBC 04/01/23 Range/Units 07:17 WBC 8.42 (4.8-10.8) K/ul Hgb 11.4 L (14.0-18.0) g/dl Hct 32.4 L (42.0-52.0) % Plt Count 190 (130-400) K/uL BMP 04/01/23 07:17 Sodium 139 Potassium 3.2 L Chloride 105 Carbon Dioxide 26 BUN 17 Creatinine 1.19 Glucose 103 H Calcium 8.9 Medications Administered Current Inpatient Medications Acetaminophen (Acetaminophen 325 Mg Tab) 650 mg PO Q4H PRN PRN Reason: Pain or Fever Stop: 04/29/23 06:41 Last Admin: 04/01/23 08:35 Dose: 650 mg Amiodarone HCl (Amiodarone 200 Mg Tab) 200 mg PO QAM [facility] Stop: 04/29/23 08:59 Last Admin: 04/01/23 08:36 Dose: 200 mg Aspirin (Aspirin 81 Mg Ectab) 81 mg PO DAILY AMY Stop: 04/29/23 08:59 Last Admin: 03/30/23 08:40 Dose: 81 mg Bisacodyl (Bisacodyl 10 Mg Supp) 10 mg AK DAILY PRN PRN Reason: Constipation Stop: 04/29/23 06:41 Clopidogrel Bisulfate (Clopidogrel Bisulfate 75 Mg Tab) 75 mg PO DAILY [facility] Stop: 04/29/23 08:59 Last Admin: 03/30/23 08:39 Dose: 75 mg Dextrose (Dextrose 50% 50 Ml Syringe) 25 - 50 ml IV UD PRN; Protocol PRN Reason: Hypoglycemia Protocol Stop: 04/29/23 06:41 Last Admin: 03/31/23 17:08 Dose: 50 ml Docusate Sodium (Docusate Sodium 100 Mg Cap) 100 mg PO BID AMY Stop: 04/29/23 08:59 Last Admin: 04/01/23 08:37 Dose: 100 mg Glucagon (Glucagon For Inj 1 Mg Vial) 1 mg SQ UD PRN; Protocol PRN Reason: Hypoglycemia Protocol Stop: 04/29/23 06:41 Glucose (Glucose 10 Tab/Tube) 4 - 8 tab PO UD PRN; Protocol PRN Reason: Hypoglycemia Treatment Stop: 04/29/23 06:41 Glucose (Glucose 40% Gel 15 Gm Tube) 15 - 30 gm PO UD PRN; Protocol PRN Reason: Hypoglycemia Protocol Stop: 04/29/23 06:41 Sodium Chloride (Nss) 1,000 mls @ 100 mls/hr IV .Q10H [facility] Stop: 04/29/23 06:41 Last Admin: 04/01/23 04:20 Dose: 100 mls/hr Ceftriaxone Sodium 1,000 mg/ (Dextrose) 50 mls @ 100 mls/hr IV Q24H [facility]; Protocol Stop: 04/09/23 06:41 Last Infusion: 04/01/23 07:58 Dose: Infused Lorazepam 0.25 mg/ Syringe 0.25 mls @ 2 mls/min IV DAILY PRN PRN Reason: Anxiety/Agitation Stop: 04/30/23 19:40 Last Admin: 03/31/23 20:58 Dose: 2 mls/min Insulin Aspart (Insulin Aspart Per Unit Charge) 0 units SC ACHS [facility] Stop: 04/29/23 07:29 Last Admin: 04/01/23 13:43 Dose: 9 units Insulin Glargine (Lantus Per Unit Charge) 25 units SQ QAM [facility] Stop: 04/29/23 08:59 Last Admin: 04/01/23 08:48 Dose: 25 units Metoprolol Tartrate (Metoprolol Tartrate 25 Mg Tab) 25 mg PO BID [facility] Stop: 04/30/23 08:59 Last Admin: 04/01/23 08:37 Dose: 25 mg Miscellaneous (Carbohydrates For Hypoglycemia ) 15 - 30 gm PO UD PRN PRN Reason: Hypoglycemia Protocol Stop: 04/29/23 06:41 Last Admin: 03/30/23 17:15 Dose: 15 gm Nitroglycerin (Nitroglycerin Sl 0.4 Mg/Tab Tab) 0.4 mg SL Q5M PRN PRN Reason: Chest Pain Stop: 04/29/23 06:41 Petrolatum (Butt Paste (Zinc Oxide 16%) 171 Appln/57 Gm Jar) 1 appln TOP TID PRN PRN Reason: Skin Irritation Stop: 04/29/23 06:54 Polyethylene Glycol (Polyethylene (Miralax) 17 Gm Pack) 17 gm PO DAILY PRN PRN Reason: Constipation Stop: 04/29/23 06:41 Ranolazine (Ranolazine 500 Mg Er Tab) 500 mg PO BID [facility] Stop: 04/29/23 08:59 Last Admin: 04/01/23 08:37 Dose: 500 mg Rosuvastatin Calcium (Rosuvastatin Calcium 20 Mg Tab) 20 mg PO DAILY AMY Stop: 04/29/23 08:59 Last Admin: 04/01/23 08:37 Dose: 20 mg Vitamin D (Cholecalciferol 1,000 Units 25 Mcg Tab) 2,000 units PO QAM [facility] Stop: 04/29/23 08:59 Last Admin: 04/01/23 08:36 Dose: 2,000 units
--- OUTSIDE RECORDS SUMMARY | 2023-04-01 21:37 | External Medical Summary | Summary of Care ---
Author Name Unknown Organization [facility] Address [address] [place] [address] Phone [phone] Care Team Providers Care Health Information Administrator Name Role Phone Carola Arrington MD Primary Care Provider Encounter Details Date Type Department Care Team (Late st Contact Info) Description 03/12/2023 Result Scan Unspecified Department <No scans attached> Allergies No known active allergiesdocumented as of this encounter (statuses as of 03/28/2023) Medications Medication Sig Dispensed Refills Start Date End Date Status aspirin 81 MG chewable tablet Take 1 Tablet by mouth in the morning. 34 Tab 11 10/28/2017 Active nitroglycerin (NITROSTAT) 0.4 MG SUBLIndications:Chr onic coronary artery disease DISSOLVE 1 TABLET UNDER THE TONGUE EVERY 5 MINUTES FOR CHEST PAIN. UP TO 3 DOSES IN 15 MINUTES. 25 Tab 1 11/17/2018 Active Clopidogrel Bisulfate 75 MG Oral Tablet (pLAVix)Indications :Aortocoronary bypass status,Acute coronary syndrome (HCC),Chronic coronary artery disease,Enlarged aorta (HCC) TAKE 1 TABLET BY MOUTH EVERY DAY 100 Tablet 1 07/24/2022 Active Amiodarone HCl 200 MG Oral Tablet (Cordarone)Indicati ons:Paroxysmal A-fib (HCC) Take 1 Tablet by mouth daily. 30 Tablet 5 12/06/2022 Active Rosuvastatin Calcium 20 MG Oral Tablet [...] disease, without long-term current use of insulin ([facility]) Inject 25 Units under the skin every evening. 15 mL 3 12/30/2022 Active metFORMIN HCl ER 500 MG Oral Tablet Extended Release 24 Hour (Glucophage XR)Indications:DM type 2, goal A1C to be determined ([facility]) TAKE 2 TABLET BY MOUTH IN THE MORNING AND 1 TABLETS IN THE EVENING WITH FOOD 270 Tablet 1 12/30/2022 Active BD Pen Needle Emperatriz 2nd Gen 32G X 4 MM (Insulin Pen Needle)Indications: Type 2 diabetes mellitus with stage 3b chronic kidney disease, without long-term current use of insulin ([facility]),DM type 2, goal A1C to be determined ([facility]) USE WITH INSULIN PEN DAILY 100 Each 1 01/06/2023 Active Docusate Sodium 100 MG Oral Capsule (Colace) Take 1 Capsule by mouth in the morning and 1 Capsule before bedtime. 0 Active Vitamin D3 50 MCG (2000 UT) Oral Tablet Chewable Take by mouth. 0 Activ e Bisacodyl 10 MG Rectal Suppository (Dulcolax) Administer 1 Suppository into the rectum in the morning. 0 Active Fleet Enema Rectal Enema Administer into the rectum. 0 Active Magnesium Hydroxide 400 MG/5ML Oral Suspension (Milk of Magnesia) Take by mouth daily as needed for Constipation. 0 Active Ondansetron 4 MG Oral Film (Zuplenz) Take by mouth. 0 A ctive Polyethylene Glycol 3350 17 GM Oral Packet (MiraLax) Take 1 Packet by mouth in the morning. 0 Active Sennosides-Docusate Sodium 8.6-50 MG Oral Tablet (Senexon-S) Take 1 Tablet by mouth in the morning. 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 Paroxysmal A-fib 12/06/2022 Unstable angina 10/25/2022 Type 2 diabetes mellitus wit h stage 3b chronic kidney disease, with long-term current use of insulin 08/09/2022 Enlarged aorta 08/09/2022 Hx of melanoma of skin 07/19/2021 Overview: Location: L upper back Year: 2016 Depth: MIS Treatment: WLE (positive margins on initial excision, then re-excised again with wider margins) Staging: Stage 0 - [id number] - Melanoma in situ Type 2 diabetes mellitus wit h stage 3b chronic kidney disease 09/26/2020 Overview: Per CKD protocol Chronic kidney disease, stage 3b 09/26/2020 Overview: Per CKD protocol Hypertensive kidney disease with stage 3b chronic kidney disease 03/27/2020 Overview: Per CKD protocol Stable angina 10/27/2019 History of colon polyps 09/08/2018 HTN, goal below 140/90 07/24/2015 Overview: Per HTN Protocol #27. Dyslipidemia, goal LDL below 70 05/01/2009 Overview: Per Lipid Taxonomy. Aortocoronary bypass status 12/06/2008 OP CABG X 3 11/25/2008 Chronic coronary artery disease 11/17/2008 ADVANCE DIRECTIVE INFORMATION 11/09/2004 Overview: No, Advance Directive brochure offered , patient declined. at prior visit S/P angioplasty with stent Overview: drug eluting 09/15/09 Plavix x 12m DM type 2, goal A1C to be determined documented as of this encounter (statuses as of 03/28/2023) Resolved Problems Problem Noted Date Diagnosed Date Resolved Date Stage 3a chronic kidney disease 08/09/2022 08/29/2022 Hypertensive kidney disease with chronic kidney disease stage III 12/10/2018 03/30/2020 Overview: Per CKD protocol Diabetes mellitus with stage 3 chronic kidney disease 08/26/2017 09/28/2020 Overview: Per CKD protocol #1 HTN, GOAL BELOW 140/80 01/06/201208/23 Overview: Per HTN Protocol #27. Unstable angina 11/23/2011 10/24/2016 Chest pain 11/22/2011 10/24/2016 NSTEMI (non-ST elevated myoc ardial infarction) 11/22/2011 12/30/2016 Acute coronary syndrome 09/15/2009 0612/2016 Enlarged aorta 09/15/2009 04/27/2019 Overview: Aortic root 4.4 cm 4.29.2009 echo at [facility]. HTN, goal below 130/80 06/14/200901/08 Overview: Per HTN Taxonomy. Type 2 diabetes mellitus wit h hemoglobin A1c goal of less than 7.0% 03/02/2009 03/27/2011 Overview: Modified per Diabetes protocol #14. ICD-10 update of inactive term EXAMINATION OF PARTICIPANT I N CLINICAL TRIAL-genomics 11/17/2008 09/01/2009 Overview: Renamed Per Clinical Trials Billing Project. Study Titile: Genomic Markers for Patients with Cardiovascular Disease Project #[id number] PI: Francoise Tomlin MD Please call [phone] with study related questions INTERFACED RESULT 11/17/2008 10/17/2011 GENOMICS CARDIO RESEARCH OTHER*[id number] 11/17/2008 06/25/2016 Overview: Renamed Per Clinical Trials Billing Project. Study Titile: Genomic Markers for Patients with Cardiovascular Disease Project #[id number] PI: Francoise Tomlin MD Please call [phone] with study related questions CLASS I-II ANGINA PECTORIS, STABLE 04/26/2002 09/15/2009 Mixed dyslipidemia 04/26/2002 9 Overview: Per Lipid Taxonomy. BENIGN NEOPLASM LG BOWEL 01/17/2002 HTN, goal below 140/90 08/23/199806/14 Overview: Per HTN Taxonomy. DM type 2, not at goal 08/23/199803/02 Overview: Modified per Diabetes protocol #14. THREE VESSEL ATHEROSCLEROTIC CORONARY DISEASE 09/15/2009 Dyslipidemia, goal LDL below 160 07/13/2013 documented as of this encounter (statuses as of 03/28/2023) Immunizations Name Administration Dates Next Due Pneumococcal Conjugate Vacc, 13 Valent (Prevnar) 01/18/2016 SEASONAL INFLUENZA, PF, 6 M & Above, IM , (FLULAVAL or FLUZONE) 03/01/2018 Seasonal Influenza, Quadriva lent Hd (Fluzone Hd) 03/05/2023 Seasonal Influenza, Quadrivalent, ID 02/21/2020 Seasonal Influenza, [...] Comments:quit 30 yrs ago, wh ile in [employer] for 4 years Alcohol Use Standard Drinks/Week Comments Yes 0 (1 standard drink = 0.6 oz pur e alcohol) socially/rare PHQ-2 Answer Date Recorded PHQ Adult Total Score 0 10/26/2020 Hunger Vital Sign Answer Date Recorded Worried About Running Out of Food in the Last Ye ar Never true 09/20/2019 Ran Out of Food in the Last Year Never true 09/20/2019 Sex and Gender Information Value Date Recorded Sex Assigned at Male 10/27/2019 8:32 AM EDT Gender Identity Male 10/27/2019 8:32 AM EDT Sexual Orientation Straight 09/20/2019 3: 04 PM EDT Job Start Date Occupation Industry Not on file Not on file Not on file documented as of this encounter Plan of Treatment Upcoming Encounters Date Type Department Care Team (Late st Contact Info) Description 06/05/2023 9:40 AM EST Office Visit Family [facility] [address] [place] [address] Carola Arrington MD [address] [place] [address] 08/14/2023 10:15 AM EDT Office Visit Dermatology [facility] [address] [facility] [facility] [place] [address] Lyssa Gar MD [address] [facility] [facility] [place] [address] 09/22/2023 9:30 AM EDT Office Visit Cardiology, [facility] [address] [place] [address] Cesar Elias PA-C [address] [place] [address] Health Maintenance Due Date Last Done Comments DXA Scan 1936 Zoster Vaccines (1 of 2) 1986 Hepatitis B (1 of 3 - Risk 3-dose series) 1996 COLONOSCOPY-EVERY 5 YRS AGES 18-100 03/20/2021 03/20/2016, 04/30/2010, 02/05/2002 Depression Screening 10/26/2021 10/26/2020 DTaP,Tdap,and Td Vaccines (2 - Td or Tdap) 07/10/2022 07/10/2012 Diabetic Foot Exam 08/08/2022 08/08/2021, 1 06/28/2019, 04/27/2019, Additional history exists COVID-19 Vaccine (3 - season) 2023 07/26/2020, 07/05/2020 Diabetic Eye Exam 02/08/2023 02/08/2022, , 04/28/2013, Additional history exists Albumin/Creatinine Ratio 07/10/2023 023, 08/08/2021, 10/24/2016, Additional history exists HbA1c 08/12/2023 02/11/2023, 11/16, 07/10/2022, Additional history exists B-12 11/26/2023 11/25/2022, 06/20, 04/27/2021, Additional history exists CKD PHOS USE SMARTSET 56723 02/15/202401/18, 02/12/2023, 12/02/2022, Additional history exists CKD HGB USE SMARTSET 76358 02/23/202402/22, 02/15/2023, 02/13/2023, Additional history exists Pneumococcal Vaccine: 65+ Years Completed 01/18/2016, 11/20/2004 Influenza Vaccine (FLU shot) Completed , 02/21/2020, 03/02/2019, Additional history exists GARDASIL-HPV IMMUNIZATION SERIES Aged Out No longer eligible based on patient's age to complete this topic MENINGOCOCCAL (MENACTRA/MENVEO) Aged Out No longer eligible based on patient's age to complete this topic documented as of this encounter Medical Devices Not on filedocumented as of this encounter Procedures Procedure Name Priority Date/Time Associated Diagnosis Comments PROCEDURE SCANNED RESULT 03/12/2023 documented in this encounter Results * PROCEDURE SCANNED RESULT (03/12/2023) 03/12/2023 No Physician Data Unknown SURGERY documented in this encounter Advance Directives Latest [...] the patient have Health Care Power of Underwriting Support Specialist? Yes, not currently available Code Status History Code Status Date Activated Date Inactivated Comments Full Code 09/15/2009 2:06 PM 09/16/2009 8:49 PM This o rder reflects the patients wishes and were consensually agreed upon. Question Answer Comments Discussion of Advance Directives occurred with: Patient/Family Does the patient have a Living Will? No Does the patient have Health Care Power of Underwriting Support Specialist? No Full Code 11/25/2008 1:50 PM 11/29/2008 9:11 PM This order reflects the patients wishes and were consensually agreed upon. Question Answer Comments Discussion of Advance Directives occurred with: Patient Care Teams Health Information Administrator Relationship Specialty Start Date End Date Carola Arrington MD [address] [place] [address] PCP - General Internal Medicine 12/19/20 documented as of this encounter
--- OUTSIDE RECORDS SUMMARY | 2023-04-01 21:37 | External Medical Summary | Summary of Care ---
Author Name Unknown Organization [facility] Address [address] [place] [address] Phone [phone] Care Team Providers Care Single Resource Boss Name Role Phone Gerry Arrington MD Primary Care Provider Reason for Visit * Reason Onset Date Comments Referral 03/26/2023 Encounter Details Date Type Department Care Team ([facility] Contact Info) Description 03/26/2023 Telephone Family Practice [facility] [address] [facility] [address] Milton Christensen MD [address] [facility] [place] [address] Referral Allergies No known active allergiesdocumented as of [...] TABLET DAILY 90 Tablet 3 12/23/2022 Active Insulin Glargine Solostar 100 UNIT/ML Subcutaneous Solution Pen-injector (Lantus SoloStar)Indicati ons:DM type 2, goal A1C to be determined ([facility]),Type 2 diabetes mellitus with stage 3b chronic kidney disease, without long-term current use of insulin (HCC) Inject 25 Units under the skin every evening. 15 mL 3 12/30/2022 Active metFORMIN HCl ER 500 MG Oral Tablet Extended Release 24 Hour (Glucophage XR)Indications:DM type 2, goal A1C to be determined ([facility]) TAKE 2 TABLET BY MOUTH IN THE MORNING AND 1 TABLETS IN THE EVENING WITH FOOD 270 Tablet 1 12/30/2022 Active BD Pen Needle Emperatriz 2nd Gen 32G X 4 MM (Insulin Pen Needle)Indication s:Type 2 diabetes mellitus with stage 3b chronic kidney disease, without long-term current use of insulin (HCC),DM type 2, goal A1C to be determined ([facility]) USE WITH INSULIN PEN DAILY 100 Each [...] Oral Film (Zuplenz) Take by mouth. 0 Active Polyethylene Glycol 3350 17 GM Oral Packet (MiraLax) Take 1 Packet by mouth in the morning. 0 Active Sennosides-Docusa te Sodium 8.6-50 MG Oral Tablet (Senexon-S) Take 1 Tablet by mouth in the morning. 0 Active OneTouch Ultra In Vitro Strip (Glucose Blood)Indications :Type 2 diabetes mellitus with stage 3b chronic kidney disease, with long-term current use of insulin (HCC) Use to check blood sugar up to four times a day. 100 Strip 11 03/19/2023 Active OneTouch Ultra 2 w/Device KitIndications:Ty pe 2 diabetes mellitus with stage 3b chronic kidney disease, with long-term current use of insulin (HCC) Use to direct blood sugars up to four times a day. 1 Each 0 03/19/2023 Active OneTouch UltraSoft LancetsIndication s:Type 2 diabetes mellitus with stage 3b chronic kidney disease, with long-term current use of insulin (HCC) Use to check blood sugars up to four times a day. 100 Each 11 03/19/2023 Active Alcohol Prep PadIndications:Ty pe 2 diabetes mellitus with stage 3b chronic kidney disease, with long-term current use of insulin (HCC) Used to clean skin prior to fingerstick glucose check. Up to 4 times a day. 1 Each 11 03/19/2023 Active Ranolazine ER 500 MG Oral Packet Take 500 mg by mouth 2 times a day. 60 Each 5 03/28/2023 Active Ranolazine ER 1000 MG Oral Tablet Extended Release 12 Hour Take 1 Tablet by mouth in the morning and 1 Tablet before bedtime. 180 Tablet 3 12/23/2022 03/28/20 23 Discontinued documented as of this encounter [...] with wider margins) Staging: Stage 0 - [id number] - Melanoma in situ Type 2 diabetes [...] ardial infarction) 11/22/2011 12/30/2016 Acute coronary syndrome 09/15/200912/2016 Enlarged aorta 09/15/2009 04/27/2019 Overview: Aortic root 4.4 cm 4.29.2009 echo at [facility]. HTN, goal below 130/80 06/14/200901/08 Overview: Per HTN Taxonomy. Type 2 diabetes mellitus wit h hemoglobin A1c goal of less than 7.0% 03/02/2009 03/27/2011 Overview: Modified per Diabetes protocol #14. ICD-10 update of inactive term EXAMINATION OF PARTICIPANT I N CLINICAL TRIAL-genomics 11/17/2008 09/01/2009 Overview: Renamed Per Clinical Trials Billing Project. Study Titile: Genomic Markers for Patients with Cardiovascular Disease Project #[id number] PI: Francoise Tomlin MD Please call [phone] with study related questions INTERFACED RESULT 11/17/2008 10/17/2011 GENOMICS CARDIO RESEARCH OTHER*[id number] 11/17/2008 06/25/2016 Overview: Renamed Per Clinical Trials Billing Project. Study Titile: Genomic Markers for Patients with Cardiovascular Disease Project #[id number] PI: Francoise Tomlin MD Please call [phone] with study related questions CLASS I-II ANGINA [...] (Prevnar) 01/18/2016 Pneumococcal Polysaccharide PPV23 (Pneumovax) 11/20/2004 SEASONAL INFLUENZA, PF, 6 M & Above, [...] Comments:quit 30 yrs ago, wh ile in [employer] for 4 years Alcohol Use Standard Drinks/Week [...] encounter Miscellaneous Notes * Addendum Note - Gerry Arrington MD - 03/28/2023 5:06 PM ESTAddended by: GERRY ARRINGTON on: 03/28/2023 05:06 PM Modules accepted: Orders * Telephone Encounter - Gerry Arrington MD - 03/28/2023 5:05 PM EST Please call patient's daughter alcides, let her know about medication change, [facility] * Telephone Encounter - Winsome Oliveros LPN - 03/28/2023 1:53 PM EST LMOM for pt to return call to [phone] for information in note. * Telephone Encounter - Cesar Elias PA-C - 03/26/2023 4:59 PM EST Blood pressures at [facility] in January 2023 were labile, ranging from 113/72 up to 215/96 Hypotension and orthostatic hypotension are possible adverse reactions with Ranolazine (Ranexa), asis ataxia Decrease Ranolazine to 500 mg twice a day Ensure proper hydration Utilize knee high compression stockings, on in the AM and off in the evening. Cesar Bhardwaj * Telephone Encounter - Crystal Morgan RP - 03/26/2023 2:04 PM EST Noted, Dr. Christensen will place new referral. Crystal Morgan, Pharm D, BCACP Clinical Pharmacist 03/26/2023, 2:04 PM * Telephone Encounter - Milton Christensen MD - 03/26/2023 2:00 PM EST Crystal--pt would like to restart with you for MTM DM. Per pt's EMG 03/12/23 showed "neuropathy"--requesting results/Dr Biggs's notes. Consider A1c goal in 7s as a result. * Telephone Encounter - Milton Christensen MD - 03/26/2023 1:27 PM EST Alejandro Guerrero & Azael, I met Mr. Jose today--his BP has been quite low over the last month--I got 96/46 today, had a fall yesterday after standing. He's not on any BP meds that I can tell. Please advise on next steps. HR is regular on amiodarone. Thank you. Cc: pcp documented in this encounter Plan of Treatment Upcoming Encounters Date Type Department Care Team (Late st Contact Info) Description 06/05/2023 9:40 AM EST Office Visit Family Practice [facility] [address] [place] [address] Gerry Arrington MD [address] [place] [address] 08/14/2023 10:15 AM EDT Office Visit Dermatology [facility] [address] [place] [address] Lyssa Gar MD [address] [facility] [address] 09/22/2023 9:30 AM EDT Office Visit Cardiology, [facility] [address] [place] [address] Cesar Elias PA-C [address] [place] [address] Health Maintenance Due Date Last Done Comments DXA Scan 1935 Zoster Vaccines (1 of 2) 1986 Hepatitis B (1 of 3 - Risk 3-dose series) 1996 COLONOSCOPY-EVERY 5 YRS AGES 18-100 03/20/2021 03/20/2016, 04/30/2010, 02/05/2002 Depression Screening 10/26/2021 10/26/2020 DTaP,Tdap,and Td Vaccines (2 - Td or Tdap) 07/10/2022 07/10/2012 Diabetic Foot Exam 08/08/2022 08/08/2021, 1 06/28/2019, 04/27/2019, Additional history exists COVID-19 Vaccine ( season) 2023 07/26/2020, 07/05/2020 Diabetic Eye Exam 02/08/2023 02/08/2022, , 04/28/2013, Additional history exists Albumin/Creatinine Ratio 07/10/2023 023, 08/08/2021, 10/24/2016, Additional history exists HbA1c 08/12/2023 02/11/2023, 11/16, 07/10/2022, Additional history exists B-12 11/26/2023 11/25/2022, 06/20, 04/27/2021, Additional history exists CKD PHOS USE SMARTSET 91126 02/15/202401/18, 02/12/2023, 12/02/2022, Additional history exists CKD HGB USE SMARTSET 52431 02/23/202402/22, 02/15/2023, 02/13/2023, Additional history exists Pneumococcal [...] as of this encounter Visit Diagnoses Diagnosis Hypotension, unspecified hypotension type- Primary Fall, initial encounter Neuromyopathy (HCC) Myoneural disorders, unspecified documented in this encounter Advance Directives Latest [...] the patient have Health Care Power of Can Runner? Yes, not currently available Code Status History Code Status Date Activated Date Inactivated Comments Full Code 09/15/2009 2:06 PM 09/16/2009 8:49 PM This o rder reflects the patients wishes and were consensually agreed upon. Question Answer Comments Discussion of Advance Directives occurred with: Patient/Family Does the patient have a Living Will? No Does the patient have Health Care Power of Can Runner? No Full Code 11/25/2008 1:50 PM 11/29/2008 9:11 PM This order reflects the patients wishes and were consensually agreed upon. Question Answer Comments Discussion of Advance Directives occurred with: Patient Care Teams Single Resource Boss Relationship Specialty Start Date End Date Gerry Arrington MD [address] [place] [address] PCP - General Internal Medicine 12/19/20 documented as of this encounter
--- OUTSIDE RECORDS SUMMARY | 2023-04-01 21:37 | External Medical Summary | Summary of Care ---
Author Name Unknown Organization [facility] Address [address] [place] [address] Phone [phone] Care Team Providers Care Grey Goods Examiner Name Role Phone Carola Arrington MD Primary Care Provider Reason for Visit * Reason Onset Date Comments Referral 03/26/2023 Encounter Details Date Type Department Care Team ([facility] Contact Info) Description 03/26/2023 Telephone Family Practice [facility] [address] [facility] [address] Milton Christensen MD [address] [address] Referral Allergies No known active allergiesdocumented as [...] A1C to be determined ([facility]),Type 2 diabetes mellitus with stage 3b chronic kidney disease, without long-term current use of insulin ([facility]) Inject 25 Units under the skin every evening. 15 mL 3 12/30/2022 Active metFORMIN HCl ER 500 MG Oral Tablet Extended Release 24 Hour (Glucophage XR)Indications:DM type 2, goal A1C to be determined ([facility]) TAKE 2 TABLET BY MOUTH IN THE MORNING AND 1 TABLETS IN THE EVENING WITH FOOD 270 Tablet 1 12/30/2022 Active BD Pen Needle Emperatriz 2nd Gen 32G X 4 MM (Insulin Pen Needle)Indications: Type 2 diabetes mellitus with stage 3b chronic kidney disease, without long-term current use of insulin ([facility]),DM type 2, goal A1C to be determined ([facility]) USE WITH INSULIN PEN DAILY 100 Each 1 01/06/2023 Active Docusate Sodium 100 MG Oral Capsule (Colace) Take 1 Capsule by mouth in the morning and 1 Capsule before bedtime. 0 Active Vitamin D3 50 MCG (1999 [place]) Oral Tablet Chewable Take by mouth. [...] by mouth in the morning. 0 Active EverpayTouch Ultra In Vitro Strip (Glucose Blood)Indications:T ype 2 diabetes mellitus with stage 3b chronic kidney disease, with long-term current use of insulin (HCC) Use to check blood sugar up to four times a day. 100 Strip 11 03/19/2023 Active OneTouch Ultra 2 w/Device KitIndications:Type 2 diabetes mellitus with stage 3b chronic kidney disease, with long-term current use of insulin (HCC) Use to direct blood sugars up to four times a day. 1 Each 0 03/19/2023 Active OneTouch UltraSoft LancetsIndications: Type 2 diabetes mellitus with stage 3b chronic kidney disease, with long-term current use of insulin (HCC) Use to check blood sugars up to four times a day. 100 Each 11 03/19/2023 Active Alcohol Prep PadIndications:Type 2 diabetes mellitus with stage 3b chronic kidney disease, with long-term current use of insulin (HCC) Used to clean skin prior to fingerstick glucose check. Up to 4 times a day. 1 Each 03/19/2023 Active documented as of this encounter (statuses [...] with wider margins) Staging: Stage 0 - AcyQ3K1 - Melanoma in situ Type 2 diabetes [...] infarction) 11/22/2011 12/30/2016 Acute coronary syndrome 09/15/2009 06/0 12/2016 Enlarged aorta 09/15/2009 04/27/2019 Overview: Aortic root 4.4 cm 4.29.2009 echo at [facility]. HTN, goal below 130/80 06/14/200901/08 Overview: Per HTN Taxonomy. Type 2 diabetes mellitus wit h hemoglobin A1c goal of less than 7.0% 03/02/2009 03/27/2011 Overview: Modified per Diabetes protocol #14. ICD-10 update of inactive term EXAMINATION OF PARTICIPANT I N CLINICAL TRIAL-genomics 11/17/2008 09/01/2009 Overview: Renamed Per Clinical Trials Billing Project. Study Titile: Genomic Markers for Patients with Cardiovascular Disease Project #[id number] PI: Francoise Tomlin MD Please call [phone] with study related questions INTERFACED RESULT 11/17/2008 10/17/2011 GENOMICS CARDIO RESEARCH OTHER*[id number] 11/17/2008 06/25/2016 Overview: Renamed Per Clinical Trials Billing Project. Study Titile: Genomic Markers for Patients with Cardiovascular Disease Project #[id number] PI: Francoise Tomlin MD Please call [phone] with study related questions CLASS I-II ANGINA [...] Comments:quit 30 yrs ago, wh ile in [place] for 4 years Alcohol Use Standard Drinks/Week [...] encounter Miscellaneous Notes * Telephone Encounter - Winsome Oliveros LPN - 03/28/2023 1:53 PM EST LMOM for pt to return call to [phone] for information in note. * Telephone Encounter - Cesar Elias PA-C - 03/26/2023 4:59 PM EST Blood pressures at [facility] in January 2023 were labile, ranging from 113/72 up to 215/96 Hypotension and orthostatic hypotension are possible adverse reactions with Ranolazine (Ranexa), asis ataxia Decrease Ranolazine to 500 mg twice a day Ensure proper hydration Utilize knee high compression stockings, on in the AM and off in the evening. Cesar Bhardwaj * Telephone Encounter - Crystal Morgan [facility] - 03/26/2023 2:04 PM EST Noted, Dr. Christensen will place new referral. Crystal Morgan, Pharm D, [facility] Clinical Pharmac[facility] 03/26/2023, 2:04 PM * Telephone Encounter - Milton Christensen MD - 03/26/2023 2:00 PM EST Crystal--pt would like to restart with you for MTM DM. Per pt's EMG 03/12/23 showed "neuropathy"--requesting results/Dr Biggs's notes. Consider A1c goal in 7s as a result. * Telephone Encounter - Milton Christensen MD - 03/26/2023 1:27 PM EST Hi Cesar & Azael, I met Mr. Garcia today--his BP has been quite low over [...] 9:40 AM EST Office Visit Family Practice [facility] [address] [place] [address] Carola Arrington MD [address] [place] [address] 08/14/2023 10:15 AM EDT Office Visit Dermatology [facility] [address] [place] [address] Lyssa Gar MD [address] [place] [address] 09/22/2023 9:30 AM EDT Office Visit Cardiology, [facility] [address] [place] [address] Cesar Elias PA-C [address] [place] [address] Health Maintenance Due Date Last Done Comments DXA Scan 1935 Zoster Vaccines (1 of 2) 1986 Hepatitis B (1 of 3 - Risk 3-dose series) 1996 COLONOSCOPY-EVERY 5 YRS AGES 18-100 03/20/2021 03/20/2016, 04/30/2010, 02/05/2002 Depression Screening 10/26/2021 10/26/2020 DTaP,Tdap,and Td Vaccines (2 - Td or Tdap) 07/10/2022 07/10/2012 Diabetic Foot Exam 08/08/2022 08/08/2021, 1 06/28/2019, 04/27/2019, Additional history exists COVID-19 Vaccine ( - season) 2023 07/26/2020, 07/05/2020 Diabetic Eye Exam 02/08/2023 02/08/2022, , 04/28/2013, Additional history exists Albumin/Creatinine Ratio 07/10/2023 023, 08/08/2021, 10/24/2016, Additional history exists HbA1c 08/12/2023 02/11/2023, 11/16, 07/10/2022, Additional history exists B-12 11/26/2023 11/25/2022, 06/20, 04/27/2021, Additional history exists CKD PHOS USE SMARTSET 18411 02/15/202401/18, 02/12/2023, 12/02/2022, Additional history exists CKD HGB USE SMARTSET 72225 02/23/202402/22, 02/15/2023, 02/13/2023, Additional history exists Pneumococcal [...] the patient have Health Care Power of Interactive Media Specialist? Yes, not currently available Code Status History Code Status Date Activated Date Inactivated Comments Full Code 09/15/2009 2:06 PM 09/16/2009 8:49 PM This o rder reflects the patients wishes and were consensually agreed upon. Question Answer Comments Discussion of Advance Directives occurred with: Patient/Family Does the patient have a Living Will? No Does the patient have Health Care Power of Interactive Media Specialist? No Full Code 11/25/2008 1:50 PM 11/29/2008 9:11 PM This order reflects the patients wishes and were consensually agreed upon. Question Answer Comments Discussion of Advance Directives occurred with: Patient Care Teams Grey Goods Examiner Relationship Specialty Start Date End Date Carola Arrington MD [address] [facility] [place] [address] PCP - General Internal Medicine 12/19/20 documented as of this encounter
--- OUTSIDE RECORDS SUMMARY | 2023-04-01 21:37 | External Medical Summary | Summary of Care ---
Author Name Unknown Organization [facility] Address [address] [place] [address] Phone [phone] Care Team Providers Care Hoop Punch And Coiler Operator Helper Name Role Phone Gerry Arrington MD Primary Care Provider Reason for Visit * Reason Onset Date Comments Referral 03/26/2023 Encounter Details Date Type Department Care Team ([facility] Contact Info) Description 03/26/2023 Telephone Family Practice [facility] [address] [facility] [address] Milton Christensen MD [address] [facility] [place] [address] Referral Allergies No known active allergiesdocumented as [...] A1C to be determined ([facility]),Type 2 diabetes mellitus with stage 3b chronic kidney disease, without long-term current use of insulin (HCC) Inject 25 Units under the skin every evening. 15 mL 3 12/30/2022 Active metFORMIN HCl ER 500 MG Oral Tablet Extended Release 24 Hour (Glucophage XR)Indications:DM type 2, goal A1C to be determined ([facility]) TAKE 2 TABLET BY MOUTH [...] to be determined ([facility]) USE WITH INSULIN PEN DAILY [...] 03/19/2023 Active Ranolazine ER 500 MG Oral Tablet Extended Release 12 Hour (Ranexa) Take 1 Tablet by mouth in the morning and 1 Tablet before bedtime. 60 Tablet 5 03/28/2023 Active Ranolazine ER 1000 MG Oral Tablet Extended Release 12 Hour Take 1 Tablet by mouth in the morning and 1 Tablet before bedtime. 180 Tablet 3 12/23/2022 03/28/20 23 Discontinued Ranolazine ER 500 MG Oral Packet Take 500 mg by mouth 2 times a day. 60 Each 5 03/28/2023 03/28/20 23 Discontinued documented as of this [...] with wider margins) Staging: Stage 0 - [id number] - Melanoma in situ Type 2 diabetes [...] infarction) 11/22/2011 12/30/2016 Acute coronary syndrome 09/15/2009 06/12/2016 Enlarged aorta 09/15/2009 04/27/2019 Overview: Aortic root 4.4 cm 4.29.2009 echo at [facility]. HTN, goal below 130/80 06/14/200901/08 Overview: Per HTN Taxonomy. Type 2 diabetes mellitus wit h hemoglobin A1c goal of less than 7.0% 03/02/2009 03/27/2011 Overview: Modified per Diabetes protocol #14. ICD-10 update of inactive term EXAMINATION OF PARTICIPANT I N CLINICAL TRIAL-genomics 11/17/2008 09/01/2009 Overview: Renamed Per Clinical Trials Billing Project. Study Titile: Genomic Markers for Patients with Cardiovascular Disease Project #[id number] PI: Francoise Tomlin MD Please call [phone] with study related questions INTERFACED RESULT 11/17/2008 10/17/2011 GENOMICS CARDIO RESEARCH OTHER*[id number] 11/17/2008 06/25/2016 Overview: Renamed Per Clinical Trials Billing Project. Study Titile: Genomic Markers for Patients with Cardiovascular Disease Project #[id number] PI: Francoise Tomlin MD Please call [phone] with study related questions CLASS I-II ANGINA PECTORIS, STABLE 04/26/2002 09/15/2009 Mixed dyslipidemia 04/26/2002 12//200 9 Overview: Per Lipid Taxonomy. BENIGN NEOPLASM [...] Comments:quit 30 yrs ago, wh ile in [place] for 4 years Alcohol Use Standard Drinks/Week [...] Note - Gerry Arrington MD - 03/28/2023 5:23 PM ESTAddended by: GERRY ARRINGTON on: 03/28/2023 05:23 PM Modules accepted: Orders * Addendum Note - Gerry Arrington MD - 03/28/2023 5:06 PM ESTAddended by: GERRY ARRINGTON on: 03/28/2023 05:06 PM Modules accepted: Orders * Telephone Encounter - Gerry Arrington MD - 03/28/2023 5:05 PM EST Please call patient's daughter alcides, let her know about medication change, I sent a prescription to [facility]. * Telephone Encounter - Winsome Oliveros LPN - 03/28/2023 1:53 PM EST LMOM for pt to return call to [phone] for information in note. * Telephone Encounter - Cesar Elias PA-C - 03/26/2023 4:59 PM EST Blood pressures at [facility] in January 2023 were labile, ranging from 113/72 up to 215/96 Hypotension and orthostatic hypotension are possible adverse reactions with Ranolazine (Ranexa), asis ataxia Decrease Ranolazine to 500 mg twice a day Ensure proper hydration Utilize knee high compression stockings, on in the AM and off in the evening. Lashae, Cesar * Telephone Encounter - Crystal Morgan RPh - 03/26/2023 2:04 PM EST Noted, Dr. [...] Alejandro Guerrero & Azael, I met Mr. Garcia today--his [...] 9:40 AM EST Office Visit Family Practice [facility] [address] [place] [address] Gerry Arrington MD [address] [place] [address] 08/14/2023 10:15 AM EDT Office Visit Dermatology [facility] [address] [facility] [place] [address] Lyssa Gar MD [address] [facility] [place] [address] 09/22/2023 9:30 AM EDT Office Visit Cardiology, [facility] [address] [place] [address] Cesar Elias PA-C [address] [place] [address] Health Maintenance Due Date Last Done Comments [...] Additional history exists CKD PHOS USE SMARTSET 92073 02/15/202401/18, 02/12/2023, 12/02/2022, Additional history exists CKD HGB USE SMARTSET 44451 02/23/202402/22, 02/15/2023, 02/13/2023, Additional history exists Pneumococcal [...] the patient have Health Care Power of Sterile Instrument Technician? Yes, not currently available Code Status History Code Status Date Activated Date Inactivated Comments Full Code 09/15/2009 2:06 PM 09/16/2009 8:49 PM This o rder reflects the patients wishes and were consensually agreed upon. Question Answer Comments Discussion of Advance Directives occurred with: Patient/Family Does the patient have a Living Will? No Does the patient have Health Care Power of Sterile Instrument Technician? No Full Code 11/25/2008 1:50 PM 11/29/2008 9:11 PM This order reflects the patients wishes and were consensually agreed upon. Question Answer Comments Discussion of Advance Directives occurred with: Patient Care Teams Hoop Punch And Coiler Operator Helper Relationship Specialty Start Date End Date Gerry Arrington MD [address] [facility] [place] [address] PCP - General Internal Medicine 12/19/20 documented as of this encounter
--- OUTSIDE RECORDS SUMMARY | 2023-04-01 21:37 | External Medical Summary | Summary of Care ---
Author Name Unknown Organization [facility] Address [address] [place] [address] Phone [phone] Care Team Providers Care Ammunition Officer Name Role Phone Carola Arrington MD Primary Care Provider Reason for Visit * Reason Onset Date Comments Referral 03/26/2023 Encounter Details Date Type Department Care Team ([facility] Contact Info) Description 03/26/[address] [facility] [address] [facility] [address] Milton Christensen MD [address] [facility] [address] Referral Allergies No known active allergiesdocumented as of this encounter (statuses as of 03/27/2023) Medications Medication Sig Dispensed Refills Start Date [...] to be determined ([facility]),Type 2 diabetes mellitus with stage 3b chronic kidney disease, without long-term current use of insulin ([facility]) Inject 25 Units under the skin every evening. 15 mL 3 12/30/2022 Active metFORMIN HCl ER 500 MG Oral Tablet Extended Release 24 Hour (Glucophage XR)Indications:DM type 2, goal A1C to be determined ([facility]) TAKE 2 TABLET BY MOUTH IN [...] [facility]) USE WITH INSULIN PEN DAILY 100 [...] by mouth in the morning. 0 Active RosumTouch Ultra In Vitro Strip (Glucose Blood)Indications:T ype [...] a day. 1 Each 0 03/19/2023 Active RosumTouch UltraSoft LancetsIndications: Type 2 diabetes mellitus with [...] a day. 1 Each 11 03/19/2023 Active documented as of this encounter (statuses as of 03/27/2023) Active Problems Problem Noted Date Diagnosed Date [...] with wider margins) Staging: Stage 0 - [id number] - Melanoma in situ Type 2 diabetes [...] as of this encounter (statuses as of 03/27/2023) Resolved Problems Problem Noted Date Diagnosed Date [...] [facility]. HTN, goal below 130/80 06/14/200901/08 Overview: Per HTN Taxonomy. Type 2 diabetes mellitus wit h hemoglobin A1c goal of less than 7.0% 03/02/2009 03/27/2011 Overview: Modified per Diabetes protocol #14. ICD-10 update of inactive term EXAMINATION OF PARTICIPANT I N CLINICAL TRIAL-genomics 11/17/2008 09/01/2009 Overview: Renamed Per Clinical Trials Billing Project. Study Titile: Genomic Markers for Patients with Cardiovascular Disease Project #[id number] PI: Francoise Tomlin MD Please call [phone] with study related questions INTERFACED RESULT 11/17/2008 10/17/2011 GENOMICS CARDIO RESEARCH OTHER*[id number] 11/17/2008 06/25/2016 Overview: Renamed Per Clinical Trials Billing Project. Study Titile: Genomic Markers for Patients with Cardiovascular Disease Project #[id number] PI: Francoise Tomlin MD Please call [phone] with study related questions CLASS I-II ANGINA [...] as of this encounter (statuses as of 03/27/2023) Immunizations Name Administration Dates Next Due Pneumococcal [...] Comments:quit 30 yrs ago, wh ile in [place] for 4 years Alcohol Use Standard Drinks/Week [...] encounter Miscellaneous Notes * Telephone Encounter - Cesar Elias PA-C - 03/26/2023 4:59 PM EST Blood pressures at [facility] in January 2023 were labile, ranging from 113/72 up to 215/96 Hypotension and orthostatic hypotension are possible adverse reactions with Ranolazine (Ranexa), asis ataxia Decrease Ranolazine to 500 mg twice a day Ensure proper hydration Utilize knee high compression stockings, on in the AM and off in the evening. Thanks, Cesar * Telephone Encounter - Crystal Morgan, [facility] - 03/26/2023 2:04 PM EST Noted, Dr. [...] MD - 03/26/2023 1:27 PM EST Alejandro Roth, I met Mr. Garcia today--his BP has [...] 9:40 AM EST Office Visit Family Practice [facility] [address] [facility] [place] [address] Carola Arrington MD 132 [facility] [place] [address] 08/14/2023 10:15 AM EDT Office Visit Dermatology [facility] [place] [address] [place] [address] Lyssa Gar MD [address] [place] [address] 09/22/2023 9:30 AM EDT Office Visit Cardiology, [facility] 132 [facility] [place] [address] Cesar Elias PA-C [address] [place] [address] Health Maintenance Due Date Last Done Comments [...] Additional history exists CKD PHOS USE SMARTSET 15802 02/15/202401/18, 02/12/2023, 12/02/2022, Additional history exists CKD HGB USE SMARTSET 27622 02/23/202402/22, 02/15/2023, 02/13/2023, Additional history exists Pneumococcal [...] the patient have Health Care Power of Cash Register Balancer? Yes, not currently available Code Status History Code Status Date Activated Date Inactivated Comments Full Code 09/15/2009 2:06 PM 09/16/2009 8:49 PM This o rder reflects the patients wishes and were consensually agreed upon. Question Answer Comments Discussion of Advance Directives occurred with: Patient/Family Does the patient have a Living Will? No Does the patient have Health Care Power of Cash Register Balancer? No Full Code 11/25/2008 1:50 PM 11/29/2008 9:11 PM This order reflects the patients wishes and were consensually agreed upon. Question Answer Comments Discussion of Advance Directives occurred with: Patient Care Teams Ammunition Officer Relationship Specialty Start Date End Date Carola Arrington MD [address] [place] [address] [place] [address] PCP - General Internal Medicine 12/19/20 documented as of this encounter
--- OUTSIDE RECORDS SUMMARY | 2023-04-01 21:37 | External Medical Summary | Summary of Care ---
Author Name Unknown Organization [facility] Address [address] [place] [address] Phone [phone] Care Team Providers Care Office Services Clerk Name Role Phone Carola Arrington MD Primary Care Provider Reason for Visit * Reason Onset Date Comments Appointment 03/26/2023 cardiology Encounter Details Date Type Department Care Team ([facility] Contact Info) Description 03/26/2023 Telephone Family Practice [facility] [address] [facility] [place] [address] Milton Christensen MD [address] [employer] [facility] [place] [address] Appointment (cardiology) Allergies No known active allergiesdocumented as of [...] ([facility]),Type 2 diabetes mellitus with stage 3b chronic kidney disease, without long-term current use of insulin ([facility]) Inject 25 Units under the skin every evening. 15 mL 3 12/30/2022 Active metFORMIN HCl ER 500 MG Oral Tablet Extended Release 24 Hour (Glucophage XR)Indications:DM type 2, goal A1C to be determined ([facility]) TAKE 2 TABLET BY MOUTH IN THE [...] [facility]) USE WITH INSULIN PEN DAILY 100 Each [...] a day. 100 Strip 11 03/19/2023 Active CINEPASSTouch Ultra 2 w/Device KitIndications:Ty pe 2 diabetes [...] 1 Each 11 03/19/2023 Active Ranolazine ER 1000 MG Oral Tablet [...] with wider margins) Staging: Stage 0 - [id number] - Melanoma in situ Type 2 diabetes [...] Aortic root 4.4 cm 4.29.2009 echo at [facility]. HTN, goal below 130/80 06/14/200901/08 Overview: Per HTN Taxonomy. Type 2 diabetes mellitus wit h hemoglobin A1c goal of less than 7.0% 03/02/2009 03/27/2011 Overview: Modified per Diabetes protocol #14. ICD-10 update of inactive term EXAMINATION OF PARTICIPANT I N CLINICAL TRIAL-genomics 11/17/2008 09/01/2009 Overview: Renamed Per Clinical Trials Billing Project. Study Titile: Genomic Markers for Patients with Cardiovascular Disease Project #[id number] PI: Francoise Tomlin MD Please call [phone] with study related questions INTERFACED RESULT 11/17/2008 10/17/2011 GENOMICS CARDIO RESEARCH OTHER*[id number] 11/17/2008 06/25/2016 Overview: Renamed Per Clinical Trials Billing Project. Study Titile: Genomic Markers for Patients with Cardiovascular Disease Project #[id number] PI: Franocise Tomlin MD Please call [phone] with study related questions CLASS I-II ANGINA PECTORIS, STABLE 04/26/2002 09/15/2009 Mixed dyslipidemia 04/26/200205/01/200 9 Overview: Per Lipid Taxonomy. BENIGN NEOPLASM [...] Comments:quit 30 yrs ago, wh ile in [employer] for 4 years Alcohol Use Standard [...] encounter Miscellaneous Notes * Telephone Encounter - Jami Euceda OSA - 03/26/2023 1:45 PM EST [facility]'s first opening is September 2023. Will have to schedule and add to wait list for sooner appointment. Cesar's note from last appointment on 12/23/22 was to f/u in 6 months (06/2023). * Telephone Encounter - Niya Lemus - 03/26/2023 1:39 PM EST Pt states he was to have a f/u with Cesar VivasCurt and though it was scheduled but I dont see anything for it, nothing open till spring time, please call to schedule documented in this encounter Plan of Treatment Upcoming Encounters Date Type Department Care Team (Late st Contact Info) Description 06/05/2023 9:40 AM EST Office Visit Family Practice [facility] [address] [place] [address] Carola Arrington MD [address] [place] [address] 08/14/2023 10:15 AM EDT Office Visit [facility] [address] [facility] [address] Lyssa Gar [facility] [address] [facility] [address] 09/22/2023 9:30 AM EDT Office Visit Cardiology, [facility] [address] [place] [address] Cesar Elias PAShikhaC [address] [place] [address] Health Maintenance Due Date Last Done Comments [...] Additional history exists COVID-19 Vaccine (3 - 2022- season) 2023 07/26/2020, 07/05/2020 Diabetic Eye Exam 02/08/2023 02/08/2022, , 04/28/2013, Additional history exists Albumin/Creatinine Ratio 07/10/2023 023, 08/08/2021, 10/24/2016, Additional history exists HbA1c 08/12/2023 02/11/2023, 11/16, 07/10/2022, Additional history exists B-12 11/26/2023 11/25/2022, 06/20, 04/27/2021, Additional history exists CKD PHOS USE SMARTSET 38679 02/15/202401/18, 02/12/2023, 12/02/2022, Additional history exists CKD HGB USE SMARTSET 46326 02/23/202402/22, 02/15/2023, 02/13/2023, Additional history exists Pneumococcal [...] the patient have Health Care Power of Steak Sauce Maker? Yes, not currently available Code Status History Code Status Date Activated Date Inactivated Comments Full Code 09/15/2009 2:06 PM 09/16/2009 8:49 PM This o rder reflects the patients wishes and were consensually agreed upon. Question Answer Comments Discussion of Advance Directives occurred with: Patient/Family Does the patient have a Living Will? No Does the patient have Health Care Power of Steak Sauce Maker? No Full Code 11/25/2008 1:50 PM 11/29/2008 9:11 PM This order reflects the patients wishes and were consensually agreed upon. Question Answer Comments Discussion of Advance Directives occurred with: Patient Care Teams Office Services Clerk Relationship Specialty Start Date End Date Carola Arrington MD [address] [place] [address] PCP - General Internal Medicine 12/19/20 documented as of this encounter
--- OUTSIDE RECORDS SUMMARY | 2023-04-01 21:37 | External Medical Summary | Summary of Care ---
Author Name Unknown Organization [facility] Address [address] [place] [address] Phone [phone] Care Team Providers Care Deck Worker Name Role Phone Gerry Arrington MD Primary Care Provider Reason for Visit * Reason Onset Date Comments Referral 03/26/2023 Encounter Details Date Type Department Care Team ([facility] Contact Info) Description 03/26/2023 Telephone Family Practice [facility] [address] [facility] [address] Milton Christensen MD [address] [facility] [address] Referral Allergies No known active allergiesdocumented as [...] to be determined ([facility]),Type 2 diabetes mellitus with stage 3b chronic kidney disease, without long-term current use of insulin (HCC) Inject 25 Units under the skin every evening. 15 mL 3 12/30/2022 Active metFORMIN HCl ER 500 MG Oral Tablet Extended Release 24 Hour (Glucophage XR)Indications:DM type 2, goal A1C to be determined ([facility]) TAKE 2 TABLET BY MOUTH [...] [facility]) USE WITH INSULIN PEN DAILY [...] with wider margins) Staging: Stage 0 - [id number] - Melanoma in situ Type 2 diabetes [...] echo at [facility]. HTN, goal below 130/80 06/14/200901/08 Overview: Per HTN Taxonomy. Type 2 diabetes mellitus wit h hemoglobin A1c goal of less than 7.0% 03/02/2009 03/27/2011 Overview: Modified per Diabetes protocol #14. ICD-10 update of inactive term EXAMINATION OF PARTICIPANT I N CLINICAL TRIAL-genomics 11/17/2008 09/01/2009 Overview: Renamed Per Clinical Trials Billing Project. Study Titile: Genomic Markers for Patients with Cardiovascular Disease Project #[id number] PI: Francoise Tomlin MD Please call [phone] with study related questions INTERFACED RESULT 11/17/2008 10/17/2011 GENOMICS CARDIO RESEARCH OTHER*[id number] 11/17/2008 06/25/2016 Overview: Renamed Per Clinical Trials Billing Project. Study Titile: Genomic Markers for Patients with Cardiovascular Disease Project #[id number] PI: Francoise Tomlin MD Please call [phone] with study related questions CLASS I-II ANGINA [...] Comments:quit 30 yrs ago, wh ile in [place] for 4 years Alcohol Use Standard Drinks/Week [...] Telephone Encounter - Leny Buckner LPN - 03/28/2023 5:30 PM EST Faxed new prescription order to [facility] @[phone]. Called and spoke with [employer] and faxed order to discontinue 1000mg dose and start decreaseddose as directed. Called and spoke with pts as daughters number was not in service and she is out of town * Addendum Note - Gerry Arrington MD [...] LMOM for pt to return call to [phone] for information in note. * Telephone Encounter - Cesar Elias PA-C - 03/26/2023 4:59 PM EST Blood pressures at [facility] in January 2023 were labile, ranging from 113/72 up to 215/96 Hypotension and orthostatic hypotension are possible adverse reactions with Ranolazine (Ranexa), asis ataxia Decrease Ranolazine to 500 mg twice a day Ensure proper hydration Utilize knee high compression stockings, on in the AM and off in the evening. Cesar Bhardwaj * Telephone Encounter - Crystal Morgan [facility] - 03/26/2023 2:04 PM EST Noted, Dr. Christensen will place new referral. Crystal Morgan, Pharm D, [facility] Clinical Pharmacist 03/26/2023, 2:04 PM * Telephone [...] 06/05/2023 9:40 AM EST Office Visit Family [facility] [address] [place] [address] Gerry Arrington MD [address] [place] [address] 08/14/2023 10:15 AM EDT Office Visit Dermatology [facility] [address] [facility] [place] [address] Lyssa Gar MD [address] [place] [address] 09/22/2023 9:30 AM EDT Office Visit Cardiology, [facility] [place] [address] [place] [address] Cesar Elias PA-C [address] [place] [address] Health Maintenance Due Date Last Done Comments [...] Additional history exists CKD PHOS USE SMARTSET 76024 02/15/202401/18, 02/12/2023, 12/02/2022, Additional history exists CKD HGB USE SMARTSET 92262 02/23/202402/22, 02/15/2023, 02/13/2023, Additional history exists Pneumococcal [...] patient have Health Care Power of Supervisor Coating? Yes, not currently available Code Status History Code Status Date Activated Date Inactivated Comments Full Code 09/15/2009 2:06 PM 09/16/2009 8:49 PM This o rder reflects the patients wishes and were consensually agreed upon. Question Answer Comments Discussion of Advance Directives occurred with: Patient/Family Does the patient have a Living Will? No Does the patient have Health Care Power of Supervisor Coating? No Full Code 11/25/2008 1:50 PM 11/29/2008 9:11 PM This order reflects the patients wishes and were consensually agreed upon. Question Answer Comments Discussion of Advance Directives occurred with: Patient Care Teams Deck Worker Relationship Specialty Start Date End Date Gerry Arrington MD [address] [place] [address] PCP - General Internal Medicine 12/19/20 documented as of this encounter
--- OUTSIDE RECORDS SUMMARY | 2023-04-01 21:37 | External Medical Summary | Summary of Care ---
Author Name Unknown Organization [facility] Address [address] [place] [address] Phone [phone] Care Team Providers Care Assembler [employer] Name Role Phone Gerry Arrington MD Primary Care Provider Reason for Visit * Reason Onset Date Comments Referral 03/26/2023 Encounter Details Date Type Department Care Team ([facility] Contact Info) Description 03/26/2023 Telephone Family Practice [facility] [address] [facility] [address] Milton Christensen MD [address] [facility] [place] [address] Referral Allergies No known active allergiesdocumented as [...] to be determined ([facility]),Type 2 diabetes mellitus with stage 3b chronic kidney disease, without long-term current use of insulin (HCC) Inject 25 Units under the skin every evening. 15 mL 3 12/30/2022 Active metFORMIN HCl ER 500 MG Oral Tablet Extended Release 24 Hour (Glucophage XR)Indications:DM type 2, goal A1C to be determined ([facility]) TAKE 2 TABLET BY MOUTH IN [...] be determined ([facility]) USE WITH INSULIN PEN DAILY 100 [...] with wider margins) Staging: Stage 0 - [id number] - Melanoma in situ Type 2 diabetes [...] Aortic root 4.4 cm 4.29.2009 echo at [facility]. HTN, goal below 130/80 06/14/200901/08 Overview: Per HTN Taxonomy. Type 2 diabetes mellitus wit h hemoglobin A1c goal of less than 7.0% 03/02/2009 03/27/2011 Overview: Modified per Diabetes protocol #14. ICD-10 update of inactive term EXAMINATION OF PARTICIPANT I N CLINICAL TRIAL-genomics 11/17/2008 09/01/2009 Overview: Renamed Per Clinical Trials Billing Project. Study Titile: Genomic Markers for Patients with Cardiovascular Disease Project #[id number] PI: Francoise Tomlin MD Please call [phone] with study related questions INTERFACED RESULT 11/17/2008 10/17/2011 GENOMICS CARDIO RESEARCH OTHER*[id number] 11/17/2008 06/25/2016 Overview: Renamed Per Clinical Trials Billing Project. Study Titile: Genomic Markers for Patients with Cardiovascular Disease Project #[id number] PI: Francoise Tomlin MD Please call [phone] with study related questions CLASS I-II ANGINA [...] Comments:quit 30 yrs ago, wh ile in [employer] for 4 years Alcohol Use Standard Drinks/Week [...] medication change, [facility] a [facility] * Telephone Encounter - Winsome Oliveros LPN - 03/28/2023 1:53 PM EST LMOM for pt to return call to [phone] for information in note. * Telephone Encounter - Cesar Elias PA-C - 03/26/2023 4:59 PM EST Blood pressures at [facility] in January 2023 were labile, ranging [...] 9:40 AM EST Office Visit Family Practice [facility] [address] [place] [address] Gerry Arrington MD [address] [place] [address] 08/14/2023 10:15 AM EDT Office Visit Dermatology [facility] [address] [facility] [place] [address] Lyssa Gar MD [address] [facility] [address] 09/22/2023 9:30 AM EDT Office Visit Cardiology, [facility] [address] [place] [address] Cesar Elias PA-C [address] [place] [address] Health Maintenance Due Date Last Done Comments [...] Additional history exists CKD PHOS USE SMARTSET 88315 02/15/202401/18, 02/12/2023, 12/02/2022, Additional history exists CKD HGB USE SMARTSET 41403 02/23/202402/22, 02/15/2023, 02/13/2023, Additional history exists Pneumococcal [...] the patient have Health Care Power of Store Receiver? Yes, not currently available Code Status History Code Status Date Activated Date Inactivated Comments Full Code 09/15/2009 2:06 PM 09/16/2009 8:49 PM This o rder reflects the patients wishes and were consensually agreed upon. Question Answer Comments Discussion of Advance Directives occurred with: Patient/Family Does the patient have a Living Will? No Does the patient have Health Care Power of Store Receiver? No Full Code 11/25/2008 1:50 PM 11/29/2008 9:11 PM This order reflects the patients wishes and were consensually agreed upon. Question Answer Comments Discussion of Advance Directives occurred with: Patient Care Teams Assembler [employer] Relationship Specialty Start Date End Date Gerry Arrington MD [address] [place] [address] PCP - General Internal Medicine 12/19/20 documented as of this encounter
--- OUTSIDE RECORDS SUMMARY | 2023-04-01 21:37 | External Medical Summary | Summary of Care ---
Author Name Unknown Organization [facility] Address [address] [place] [address] Phone [phone] Care Team Providers Care Implementation Analyst Name Role Phone Gerry Arrington MD Primary Care Provider Reason for Visit * Reason Onset Date Comments Referral 03/26/2023 Encounter Details Date Type Department Care Team ([facility] Contact Info) Description 03/26/2023 Telephone Family Practice [facility] [address] [facility] [address] Milton Christensen MD [address] [facility] [place] [address] Referral Allergies No known active allergiesdocumented as [...] determined ([facility]) TAKE 2 TABLET BY MOUTH IN THE [...] [facility]) USE WITH INSULIN PEN DAILY 100 Each [...] with wider margins) Staging: Stage 0 - [id number] - Melanoma in situ Type 2 diabetes [...] [facility]. HTN, goal below 130/80 06/14/200901/08 Overview: Per HTN Taxonomy. Type 2 diabetes mellitus wit h hemoglobin A1c goal of less than 7.0% 03/02/2009 03/27/2011 Overview: Modified per Diabetes protocol #14. ICD-10 update of inactive term EXAMINATION OF PARTICIPANT I N CLINICAL TRIAL-genomics 11/17/2008 09/01/2009 Overview: Renamed Per Clinical Trials Billing Project. Study Titile: Genomic Markers for Patients with Cardiovascular Disease Project #[id number] PI: Francoise Tomlin MD Please call [phone] with study related questions INTERFACED RESULT 11/17/2008 10/17/2011 GENOMICS CARDIO RESEARCH OTHER*[id number] 11/17/2008 06/25/2016 Overview: Renamed Per Clinical Trials Billing Project. Study Titile: Genomic Markers for Patients with Cardiovascular Disease Project #[id number] PI: Francoise Tomlin MD Please call [phone] with study related questions CLASS I-II ANGINA [...] Comments:quit 30 yrs ago, wh ile in [place] for 4 years Alcohol Use Standard Drinks/Week [...] medication change, [facility] a [facility] * Telephone Encounter - Winsome Oliveros LPN - 03/28/2023 1:53 PM EST LMOM for pt to return call to [phone] for information in note. * Telephone Encounter - Cesar Elias PA-C - 03/26/2023 4:59 PM EST Blood pressures at [facility] in January 2023 were labile, [...] 9:40 AM EST Office Visit Family Practice [facility] [address] [place] [address] Gerry Arrington MD [address] [place] [address] 08/14/2023 10:15 AM EDT Office Visit Dermatology [facility] [address] [facility] [place] [address] Lyssa Gar MD [address] [facility] [address] 09/22/2023 9:30 AM EDT Office Visit Cardiology, [facility] [address] [place] [address] Cesar Elias PA-C [address] [place] [address] Health Maintenance Due Date Last Done Comments [...] Additional history exists CKD PHOS USE SMARTSET 83424 02/15/202401/18, 02/12/2023, 12/02/2022, Additional history exists CKD HGB USE SMARTSET 25511 02/23/202402/22, 02/15/2023, 02/13/2023, Additional history exists Pneumococcal [...] the patient have Health Care Power of Conference Planner? Yes, not currently available Code Status History Code Status Date Activated Date Inactivated Comments Full Code 09/15/2009 2:06 PM 09/16/2009 8:49 PM This o rder reflects the patients wishes and were consensually agreed upon. Question Answer Comments Discussion of Advance Directives occurred with: Patient/Family Does the patient have a Living Will? No Does the patient have Health Care Power of Conference Planner? No Full Code 11/25/2008 1:50 PM 11/29/2008 9:11 PM This order reflects the patients wishes and were consensually agreed upon. Question Answer Comments Discussion of Advance Directives occurred with: Patient Care Teams Implementation Analyst Relationship Specialty Start Date End Date Gerry Arrington MD [address] [place] [address] PCP - General Internal Medicine 12/19/20 documented as of this encounter
--- OUTSIDE RECORDS SUMMARY | 2023-04-01 21:37 | External Medical Summary | Summary of Care ---
Author Name Unknown Organization [facility] Address [address] [place] [address] Phone [phone] Care Team Providers Care Monotype Operator Name Role Phone Gerry Arrington MD Primary Care Provider Reason for Visit * Reason Onset Date Comments Referral 03/26/2023 Encounter Details Date Type Department Care Team ([facility] Contact Info) Description 03/26/2023 Telephone Family Practice [facility] [address] [facility] [address] Milton Christensen MD [address] [facility] [place] [address] Referral Allergies No known active allergiesdocumented as [...] be determined ([facility]) TAKE 2 TABLET BY MOUTH IN THE [...] [facility]) USE WITH INSULIN PEN DAILY 100 Each [...] with wider margins) Staging: Stage 0 - [id number] - Melanoma in situ Type 2 diabetes [...] at [facility]. HTN, goal below 130/80 06/14/200901/08 Overview: Per HTN Taxonomy. Type 2 diabetes mellitus wit h hemoglobin A1c goal of less than 7.0% 03/02/2009 03/27/2011 Overview: Modified per Diabetes protocol #14. ICD-10 update of inactive term EXAMINATION OF PARTICIPANT I N CLINICAL TRIAL-genomics 11/17/2008 09/01/2009 Overview: Renamed Per Clinical Trials Billing Project. Study Titile: Genomic Markers for Patients with Cardiovascular Disease Project #[id number] PI: Francoise Tomlin MD Please call [phone] with study related questions INTERFACED RESULT 11/17/2008 10/17/2011 GENOMICS CARDIO RESEARCH OTHER*[id number] 11/17/2008 06/25/2016 Overview: Renamed Per Clinical Trials Billing Project. Study Titile: Genomic Markers for Patients with Cardiovascular Disease Project #[id number] PI: Francoise Tomlin MD Please call [phone] with study related questions CLASS I-II ANGINA [...] Comments:quit 30 yrs ago, wh ile in [place] for 4 years Alcohol Use Standard Drinks/Week [...] LMOM for pt to return call to [phone] for information in note. * Telephone Encounter - Cesar Elias PA-C - 03/26/2023 4:59 PM EST Blood pressures at [facility] in January 2023 were labile, ranging [...] 9:40 AM EST Office Visit Family Practice [facility] [address] [place] [address] Gerry Arrington MD [address] [place] [address] 08/14/2023 10:15 AM EDT Office Visit Dermatology [facility] [address] [facility] [place] [address] Lyssa Gar MD [address] [facility] [place] [address] 09/22/2023 9:30 AM EDT Office Visit Cardiology, [facility] [address] [place] [address] Cesar Elias PA-C [address] [place] [address] Health Maintenance Due Date Last Done Comments [...] Additional history exists CKD PHOS USE SMARTSET 40047 02/15/202401/18, 02/12/2023, 12/02/2022, Additional history exists CKD HGB USE SMARTSET 29256 02/23/202402/22, 02/15/2023, 02/13/2023, Additional history exists Pneumococcal [...] the patient have Health Care Power of Sponsorship Manager? Yes, not currently available Code Status History Code Status Date Activated Date Inactivated Comments Full Code 09/15/2009 2:06 PM 09/16/2009 8:49 PM This o rder reflects the patients wishes and were consensually agreed upon. Question Answer Comments Discussion of Advance Directives occurred with: Patient/Family Does the patient have a Living Will? No Does the patient have Health Care Power of Sponsorship Manager? No Full Code 11/25/2008 1:50 PM 11/29/2008 9:11 PM This order reflects the patients wishes and were consensually agreed upon. Question Answer Comments Discussion of Advance Directives occurred with: Patient Care Teams Monotype Operator Relationship Specialty Start Date End Date Gerry Arrington MD [address] [facility] [place] [address] PCP - General Internal Medicine 12/19/20 documented as of this encounter
--- OUTSIDE RECORDS SUMMARY | 2023-04-01 21:38 | External Medical Summary | Summary of Care ---
Author Name Unknown Organization [facility] Address [address] [place] [address] Phone [phone] Care Team Providers Care [employer] Officer Name Role Phone Carola Arrington MD Primary Care Provider Reason for Visit * Reason Onset Date Comments Appointment 03/26/2023 cardiology Encounter Details Date Type Department Care Team ([facility] Contact Info) Description 03/26/2023 Telephone Family Practice [facility] [address] [facility] [place] [address] Milton Christensen MD [address] [facility] [place] [address] Appointment (cardiology) Allergies No known active allergiesdocumented as of this encounter (statuses as of 03/26/2023) Medications Medication Sig Dispensed Refills Start Date [...] long-term current use of insulin ([facility]) Inject 25 Units under the skin every evening. 15 mL 3 12/30/2022 Active metFORMIN HCl ER 500 MG Oral Tablet Extended Release 24 Hour (Glucophage XR)Indications:DM type 2, goal A1C to be determined ([facility]) TAKE 2 TABLET BY MOUTH IN [...] be determined ([facility]) USE WITH INSULIN PEN DAILY 100 [...] Active OneTouch Ultra In Vitro Strip (Glucose Blood)Indications:T ype [...] as of this encounter (statuses as of 03/26/2023) Active Problems Problem Noted Date Diagnosed Date [...] with wider margins) Staging: Stage 0 - [id number] - Melanoma in situ Type 2 diabetes [...] as of this encounter (statuses as of 03/26/2023) Resolved Problems Problem Noted Date Diagnosed Date [...] echo at [facility]. HTN, goal below 130/80 06/14/200901/08 Overview: Per HTN Taxonomy. Type 2 diabetes mellitus wit h hemoglobin A1c goal of less than 7.0% 03/02/2009 03/27/2011 Overview: Modified per Diabetes protocol #14. ICD-10 update of inactive term EXAMINATION OF PARTICIPANT I N CLINICAL TRIAL-genomics 11/17/2008 09/01/2009 Overview: Renamed Per Clinical Trials Billing Project. Study Titile: Genomic Markers for Patients with Cardiovascular Disease Project #[id number] PI: Francoise Tomlin MD Please call [phone] with study related questions INTERFACED RESULT 11/17/2008 10/17/2011 GENOMICS CARDIO RESEARCH OTHER*[id number] 11/17/2008 06/25/2016 Overview: Renamed Per Clinical Trials Billing Project. Study Titile: Genomic Markers for Patients with Cardiovascular Disease Project #[id number] PI: Francoise Tomlin MD Please call [phone] with study related questions CLASS I-II ANGINA [...] as of this encounter (statuses as of 03/26/2023) Immunizations Name Administration Dates Next Due Pneumococcal [...] Comments:quit 30 yrs ago, wh ile in [place] for 4 years Alcohol Use Standard Drinks/Week [...] [facility] - 03/26/2023 1:45 PM EST Cesar's first opening is September 2023. Will have [...] 9:40 AM EST Office Visit Family Practice [facility] [address] [place] [address] Carola Arrington MD [address] [place] [address] 08/14/2023 10:15 AM EDT Office Visit Dermatology [facility] [address] [facility] [place] [address] Lyssa Gar MD [address] [facility] [place] [address] Health Maintenance Due Date Last Done Comments [...] 11/26/2023 11/25/2022, 06/20, 04/27/2021, Additional history exists TSH 02/11/2024 02/10/2023, 12/18, 12/23/2022, Additional history exists CKD PHOS USE SMARTSET 94175 02/15/202401/18, 02/12/2023, 12/02/2022, Additional history exists CKD HGB USE SMARTSET 45188 02/23/202402/22, 02/15/2023, 02/13/2023, Additional history exists Pneumococcal [...] the patient have Health Care Power of Buffing Wheel Raker? Yes, not currently available Code Status History Code Status Date Activated Date Inactivated Comments Full Code 09/15/2009 2:06 PM 09/16/2009 8:49 PM This o rder reflects the patients wishes and were consensually agreed upon. Question Answer Comments Discussion of Advance Directives occurred with: Patient/Family Does the patient have a Living Will? No Does the patient have Health Care Power of Buffing Wheel Raker? No Full Code 11/25/2008 1:50 PM 11/29/2008 9:11 PM This order reflects the patients wishes and were consensually agreed upon. Question Answer Comments Discussion of Advance Directives occurred with: Patient Care Teams Sal[employer] Officer Relationship Specialty Start Date End Date Carola Arrington MD [address] [place] [address] PCP - General Internal Medicine 12/19/20 documented as of this encounter
--- OUTSIDE RECORDS SUMMARY | 2023-04-01 21:38 | External Medical Summary | Summary of Care ---
Author Name Unknown Organization [facility] Address [address] [place] [address] Phone [phone] Care Team Providers Care Head Athletic Trainer/Strength Coach Name Role Phone Carola Arrington MD Primary Care Provider Reason for Visit * Reason Onset Date Comments Appointment 03/26/2023 cardiology Encounter Details Date Type Department Care Team ([facility] Contact Info) Description 03/26/2023 Telephone Family Practice [facility] [address] [facility] [place] [address] Milton Christensen MD [address] [facility] [place] [address] Appointment (cardiology) Allergies No known active allergiesdocumented [...] current use of insulin ([facility]) Inject 25 Units under the skin every evening. 15 mL 3 12/30/2022 Active metFORMIN HCl ER 500 MG Oral Tablet Extended Release 24 Hour (Glucophage XR)Indications:DM type 2, goal A1C to be determined ([facility]) TAKE 2 TABLET BY MOUTH [...] ([facility]) USE WITH INSULIN PEN DAILY [...] with wider margins) Staging: Stage 0 - [id number] - Melanoma in situ Type 2 diabetes [...] root 4.4 cm 4.29.2009 echo at [facility]. HTN, goal below 130/80 06/14/200901/08 Overview: Per HTN Taxonomy. Type 2 diabetes mellitus wit h hemoglobin A1c goal of less than 7.0% 03/02/2009 03/27/2011 Overview: Modified per Diabetes protocol #14. ICD-10 update of inactive term EXAMINATION OF PARTICIPANT I N CLINICAL TRIAL-genomics 11/17/2008 09/01/2009 Overview: Renamed Per Clinical Trials Billing Project. Study Titile: Genomic Markers for Patients with Cardiovascular Disease Project #[id number] PI: Francoise Tomlin MD Please call [phone] with study related questions INTERFACED RESULT 11/17/2008 10/17/2011 GENOMICS CARDIO RESEARCH OTHER*[id number] 11/17/2008 06/25/2016 Overview: Renamed Per Clinical Trials Billing Project. Study Titile: Genomic Markers for Patients with Cardiovascular Disease Project #[id number] PI: Francoise Tomlin MD Please call [phone] with study related questions CLASS I-II ANGINA [...] Comments:quit 30 yrs ago, wh ile in [employer] for 4 years Alcohol Use Standard Drinks/Week [...] 9:40 AM EST Office Visit Family Practice [facility] [address] [place] [address] Carola Arrington MD [address] [place] [address] 08/14/2023 10:15 AM EDT Office Visit Dermatology [facility] [address] [place] [address] Lyssa Gar MD [address] [facility] [address] 09/22/2023 9:30 AM EDT Office Visit Cardiology, [facility] [address] [place] [address] Cesar Elias PA-C [address] [place] [address] Health Maintenance Due Date Last Done Comments [...] Additional history exists CKD PHOS USE SMARTSET 02713 02/15/202401/18, 02/12/2023, 12/02/2022, Additional history exists CKD HGB USE SMARTSET 09505 02/23/202402/22, 02/15/2023, 02/13/2023, Additional history exists Pneumococcal [...] the patient have Health Care Power of Mysql Dba? Yes, not currently available Code Status History Code Status Date Activated Date Inactivated Comments Full Code 09/15/2009 2:06 PM 09/16/2009 8:49 PM This o rder reflects the patients wishes and were consensually agreed upon. Question Answer Comments Discussion of Advance Directives occurred with: Patient/Family Does the patient have a Living Will? No Does the patient have Health Care Power of Mysql Dba? No Full Code 11/25/2008 1:50 PM 11/29/2008 9:11 PM This order reflects the patients wishes and were consensually agreed upon. Question Answer Comments Discussion of Advance Directives occurred with: Patient Care Teams Head Athletic Trainer/Strength Coach Relationship Specialty Start Date End Date Carola Arrington MD [address] [place] [address] PCP - General Internal Medicine 12/19/20 documented as of this encounter
--- OUTSIDE RECORDS SUMMARY | 2023-04-01 21:38 | External Medical Summary | Summary of Care ---
Author Name Unknown Organization [facility] Address [address] [place] [address] Phone [phone] Care Team Providers Care Slate Splitting Supervisor Name Role Phone Carola Arrington MD Primary Care Provider Reason for Visit * Reason Onset Date Comments Referral 03/26/2023 Encounter Details Date Type Department Care Team ([facility] Contact Info) Description 03/26/2023 Telephone Family Practice [facility] [address] [facility] [address] Milton Christensen MD [address] [facility] [address] Referral Allergies No known active allergiesdocumented as [...] be determined ([facility]),Type 2 diabetes mellitus with stage 3b chronic kidney disease, without long-term current use of insulin ([facility]) Inject 25 Units under the skin every evening. 15 mL 3 12/30/2022 Active metFORMIN HCl ER 500 MG Oral Tablet Extended Release 24 Hour (Glucophage XR)Indications:DM type 2, goal A1C to be determined ([facility]) TAKE 2 TABLET BY MOUTH [...] determined ([facility]) USE WITH INSULIN PEN DAILY [...] by mouth in the morning. 0 Active Flats&HousesTouch Ultra In Vitro Strip (Glucose Blood)Indications:T ype [...] with wider margins) Staging: Stage 0 - [id number] - Melanoma in situ Type 2 diabetes [...] Aortic root 4.4 cm 4.29.2009 echo at [facility]. HTN, goal below 130/80 06/14/200901/08 Overview: Per HTN Taxonomy. Type 2 diabetes mellitus wit h hemoglobin A1c goal of less than 7.0% 03/02/2009 03/27/2011 Overview: Modified per Diabetes protocol #14. ICD-10 update of inactive term EXAMINATION OF PARTICIPANT I N CLINICAL TRIAL-genomics 11/17/2008 09/01/2009 Overview: Renamed Per Clinical Trials Billing Project. Study Titile: Genomic Markers for Patients with Cardiovascular Disease Project #[id number] PI: Francoise Tomlin MD Please call [phone] with study related questions INTERFACED RESULT 11/17/2008 10/17/2011 GENOMICS CARDIO RESEARCH OTHER*[id number] 11/17/2008 06/25/2016 Overview: Renamed Per Clinical Trials Billing Project. Study Titile: Genomic Markers for Patients with Cardiovascular Disease Project #[id number] PI: Francoise Tomlin MD Please call [phone] with study related questions CLASS I-II ANGINA [...] Comments:quit 30 yrs ago, wh ile in [employer] for 4 years Alcohol Use Standard Drinks/Week [...] 03/26/2023 4:59 PM EST Blood pressures at [facility] in January 2023 were labile, ranging from 113/72 up to 215/96 Hypotension and orthostatic hypotension are possible adverse reactions with Ranolazine (Ranexa), asis ataxia Decrease Ranolazine to 500 mg twice a day Ensure proper hydration Utilize knee high compression stockings, on in the AM and off in the evening. Thanks, Cesar * Telephone Encounter - Crystal Morgan, [facility] - 03/26/2023 2:04 PM [...] 9:40 AM EST Office Visit Family Practice [facility] [address] [facility] [place] [address] Carola Arrington MD [address] [facility] [place] [address] 08/14/2023 10:15 AM EDT Office Visit Dermatology [facility] [place] [address] [place] [address] Lyssa Gar MD [address] [facility] [place] [address] 09/22/2023 9:30 AM EDT Office Visit Cardiology, [facility] [address] [facility] [place] [address] Cesar Elias PA-C [address] [place] [address] Health Maintenance Due Date Last Done Comments [...] Additional history exists CKD PHOS USE SMARTSET 70548 02/15/202401/18, 02/12/2023, 12/02/2022, Additional history exists CKD HGB USE SMARTSET 30421 02/23/202402/22, 02/15/2023, 02/13/2023, Additional history exists Pneumococcal [...] the patient have Health Care Power of Retail Pharmacist? Yes, not currently available Code Status History Code Status Date Activated Date Inactivated Comments Full Code 09/15/2009 2:06 PM 09/16/2009 8:49 PM This o rder reflects the patients wishes and were consensually agreed upon. Question Answer Comments Discussion of Advance Directives occurred with: Patient/Family Does the patient have a Living Will? No Does the patient have Health Care Power of Retail Pharmacist? No Full Code 11/25/2008 1:50 PM 11/29/2008 9:11 PM This order reflects the patients wishes and were consensually agreed upon. Question Answer Comments Discussion of Advance Directives occurred with: Patient Care Teams Slate Splitting Supervisor Relationship Specialty Start Date End Date Carola Arrington MD [address] [place] [address] [place] [address] PCP - General Internal Medicine 12/19/20 documented as of this encounter
--- OUTSIDE RECORDS SUMMARY | 2023-04-01 21:38 | External Medical Summary | Summary of Care ---
Author Name Unknown Organization [facility] Address [address] [place] [address] Phone [phone] Care Team Providers Care Manager Location Name Role Phone Carola Arrington MD Primary Care Provider Reason for Visit * Reason Onset Date Comments Referral 03/26/2023 Encounter Details Date Type Department Care Team ([facility] Contact Info) Description 03/26/2023 Telephone Family Practice [facility] [address] [facility] [address] Milton Christensen MD [address] [facility] [address] Referral Allergies No known active allergiesdocumented as [...] by mouth in the morning. 0 Active Satori BrandsTouch Ultra In Vitro Strip (Glucose Blood)Indications:T ype [...] with wider margins) Staging: Stage 0 - [id number] - Melanoma in situ Type 2 diabetes [...] 4.4 cm 4.29.2009 echo at [facility]. HTN, goal below 130/80 06/14/200901/08 Overview: Per HTN Taxonomy. Type 2 diabetes mellitus wit h hemoglobin A1c goal of less than 7.0% 03/02/2009 03/27/2011 Overview: Modified per Diabetes protocol #14. ICD-10 update of inactive term EXAMINATION OF PARTICIPANT I N CLINICAL TRIAL-genomics 11/17/2008 09/01/2009 Overview: Renamed Per Clinical Trials Billing Project. Study Titile: Genomic Markers for Patients with Cardiovascular Disease Project #[id number] PI: Francoise Tomlin MD Please call [phone] with study related questions INTERFACED RESULT 11/17/2008 10/17/2011 GENOMICS CARDIO RESEARCH OTHER*[id number] 11/17/2008 06/25/2016 Overview: Renamed Per Clinical Trials Billing Project. Study Titile: Genomic Markers for Patients with Cardiovascular Disease Project #[id number] PI: Francoise Tomlin MD Please call [phone] with study related questions CLASS I-II ANGINA [...] Comments:quit 30 yrs ago, wh ile in [place] for 4 years Alcohol Use Standard Drinks/Week [...] Notes * Telephone Encounter - Crystal Morgan RPh [...] 9:40 AM EST Office Visit Family Practice [facility] [address] [place] [address] Carola Arrington MD [address] [place] [address] 08/14/2023 10:15 AM EDT Office Visit Dermatology [facility] [address] [place] [address] Lyssa Gar [facility] [address] [facility] [address] 09/22/2023 9:30 AM EDT Office Visit Cardiology, [facility] [address] [place] [address] Cesar Elias PA-C [address] [place] [address] Health Maintenance Due Date Last Done Comments [...] Additional history exists CKD PHOS USE SMARTSET 60341 02/15/202401/18, 02/12/2023, 12/02/2022, Additional history exists CKD HGB USE SMARTSET 51187 02/23/202402/22, 02/15/2023, 02/13/2023, Additional history exists Pneumococcal [...] the patient have Health Care Power of Glass Science Engineer? Yes, not currently available Code Status History Code Status Date Activated Date Inactivated Comments Full Code 09/15/2009 2:06 PM 09/16/2009 8:49 PM This o rder reflects the patients wishes and were consensually agreed upon. Question Answer Comments Discussion of Advance Directives occurred with: Patient/Family Does the patient have a Living Will? No Does the patient have Health Care Power of Glass Science Engineer? No Full Code 11/25/2008 1:50 PM 11/29/2008 9:11 PM This order reflects the patients wishes and were consensually agreed upon. Question Answer Comments Discussion of Advance Directives occurred with: Patient Care Teams Manager Location Relationship Specialty Start Date End Date Carola Arrington MD [address] [facility] [place] [address] PCP - General Internal Medicine 12/19/20 documented as of this encounter
--- OUTSIDE RECORDS SUMMARY | 2023-04-01 21:38 | External Medical Summary | Summary of Care ---
Author Name Unknown Organization [facility] Address [address] [place] [address] Phone [phone] Care Team Providers Care Machine Taper Name Role Phone Carola Arrington MD Primary Care Provider Reason for Referral * Evaluate & Treat - Unlimited Visits (Within 30 days (routine)) - Authorized Specialty Diagnoses / Procedures Referred By Contharjinder alonzo Referred To Contact Pharmacist / Pharmacy Diagnoses DM type 2, goal A1C to be determined ([facility]) Milton Christensen MD [address] [place] [address] Referral ID Status Reason Start Date Expiration Date Visits Requested Visits Authorized [id number] Authorized Specialty Services Required 03/26/2023 99 99 Question Answer Referral Priority Within 30 days (routine) Where should this appointment be scheduled? [facility] Department: Primary Care Reason for Referral: DM Target A1c: < 8 Comments Re-enrolling. "Neuropathy" as questionable cause of general weakness, falls, 03/12/23 EMG done, requesting results from [facility]. Consider A1c 7-8 as goal. Pharmacist Medication Therapy Management: Minimum frequency patient should be seen in person for medication management: as appropriate per clinical condition and patient status By my signature, I understand that my patient Dirk Garcia will have his medication therapy managed by the [facility] Medication [facility] ([facility]) per established policies, procedures, and protocols. I also certify that this referral may serve as an initiation of service for the management of drug therapy in the above noted patient. [facility] providers will be responsible for scheduling patient visits, obtaining appropriate laboratory studies, and adjusting medication management therapy per patient's need, in addition to those roles spelled out in the clinic policy, procedures, and drug management protocols. I understand that the service provided by the [facility] is voluntary and have informed patient that they can refuse the service at their discretion. I am aware that the [facility] will provide me with a copy of the patient encounter via my [employer]. I authorize the [facility] to carry out these activities on my behalf. I consider this program to be a necessary part of the patient's medical care. Milton Christensen MD Reason for Visit * Reason Comments Acute Leg weakness and inc reased falls over the last 6 months. Currently living at [facility] for assistance. Encounter Details Date Type Department Care Team (Latest Contact Info) Description 03/26/2023 12:40 PM EST [facility] [place] [address] Milton Christensen MD [address] [place] [address] Neuromyopathy (HCC)*; Hypothyroidism, unspecified type; Hypotension, unspecified hypotension type; Recurrent falls; DM type 2, goal A1C to be determined ([facility]) Allergies No known active allergiesdocumented as of [...] A1C to be determined ([facility]),Type 2 diabetes mellitus with stage 3b chronic kidney disease, without long-term current use of insulin ([facility]) Inject 25 Units under the skin every evening. 15 mL 3 12/30/2022 Active metFORMIN HCl ER 500 MG Oral Tablet Extended Release 24 Hour (Glucophage XR)Indications:DM type 2, goal A1C to be determined ([facility]) TAKE 2 TABLET BY MOUTH IN THE [...] to be determined ([facility]) USE WITH INSULIN PEN DAILY 100 Each [...] a day. 1 Each 11 03/19/2023 Active Levothyroxine Sodium 25 MCG Oral Tablet (Levoxyl)Indication s:Acquired hypothyroidism Take 1 Tablet by mouth in the morning. (at least 30 min prior to breakfast or other meds). 30 Tablet 11 01/08/2023 3 Discontinu ed(Medicat ion List Clean Up) documented [...] with wider margins) Staging: Stage 0 - [id number] - Melanoma in situ Type 2 diabetes [...] cm 4.29.2009 echo at [facility]. HTN, goal below 130/80 06/14/200901/08 Overview: Per HTN Taxonomy. Type 2 diabetes mellitus wit h hemoglobin A1c goal of less than 7.0% 03/02/2009 03/27/2011 Overview: Modified per Diabetes protocol #14. ICD-10 update of inactive term EXAMINATION OF PARTICIPANT I N CLINICAL TRIAL-genomics 11/17/2008 09/01/2009 Overview: Renamed Per Clinical Trials Billing Project. Study Titile: Genomic Markers for Patients with Cardiovascular Disease Project #[id number] PI: Ricardo Yang MD Please call [phone] with study related questions INTERFACED RESULT 11/17/2008 10/17/2011 GENOMICS CARDIO RESEARCH OTHER*[id number] 11/17/2008 06/25/2016 Overview: Renamed Per Clinical Trials Billing Project. Study Titile: Genomic Markers for Patients with Cardiovascular Disease Project #[id number] PI: Ricardo Yang MD Please call [phone] with study related questions CLASS I-II ANGINA [...] Answered Comments:quit 30 yrs ago, while in [employer] for 4 years Alcohol Use Standard Drinks/Week [...] Sign Reading Time Taken Comments Blood Pressure 96/52 03/26/2023 1:04 PM EST Pulse 64 03/26/2023 1:04 PM EST Temperature 35.8 C (96.5 F) 03/26/2023 1:04 PM ES T Respiratory Rate 18 03/26/2023 1:04 PM EST Oxygen Saturation 97% 03/26/2023 1:04 PM EST Inhaled Oxygen Concentration - - Weight - - Height - - Body Mass Index - - documented in this encounter Progress Notes * Milton Christensen MD - 03/26/2023 1:54 PM EST SUBJECTIVE: Dirk Garcia is a 87 year old male here for Acute (Leg weakness and increased falls over the last 6 months. Currently living at [facility] for assistance. ) . Here for f/u with . Pt with complicated hx over the last year. Had fall yesterday in his [place] [facility]. Patient states he stood up felt lightheaded and went down. Uses a rolling walker typically. He, per , had been doing well until September when he started having multiple falls and weak legs and difficulty eating and tremors. He had several hospitalizations include including his extended visit in January. Was [facility] and then to [facility]. Some things have improved including his eating. However his gait remains wobbly. Was seen in the office 2-3 weeks ago and had hypotension at that point. Imdur was listed on his med list at that point but otherwise was no on any blood pressure medicines. Updated med list from today does not include it. He is on levothyroxine 25 mcg but it looks like the highest his TSH at was ever is around 5. and patient would prefer to stop it if he does not have to be on it. From his fall yesterday he has some soreness in his left rib side but is breathing okay and is walking and changing positionsu okay without significant distress. He did have EMG 03/12/23 per to r/o ALS, etc. I do not have the report from Dr. Biggs, but states that he told them he has neuropathy. Unclearwhat the causes. He has had chronic diabetes his last A1c was 8.2 on 02/11/23 Hemoglobin AIC Results: Lab Results Component Value Date/Time HEMOGLOBIN A1C - [facility] 8.1 (H) 11/25/2022 02:28 PM HEMOGLOBIN A1C - [facility] 9.4 (H) 07/10/2022 09:00 AM HEMOGLOBIN A1C - [facility] 8.0 (H) 12/04/2021 11:51 AM HEMOGLOBIN A1C - [facility] 9.7 (H) 04/18/2020 08:29 AM HEMOGLOBIN A1C - [facility] 6.4 (H) 10/27/2019 09:03 AM HEMOGLOBIN A1C - [facility] 6.5 (H) 01/12/2019 02:01 PM Would like to re-enroll with [facility]. ROS: Negative except above. Past Medical History: Diagnosis Date Aortocoronary bypass status 12/06/2008 Benign neoplasm of colon 01/18 Chronic coronary artery disease 11/17/2008 Coronary atherosclerosis of [place] coronary artery DM type 2, goal A1c below 7 DM type 2, goal A1C to be determined (HCC) Dyslipidemia, goal LDL below 160 Dyslipidemia, goal LDL below 70 05/01/2009 Per Lipid Taxonomy. Enlarged aorta (HCC) 09/15/2009 Aortic root 4.4 cm 4.29.2010 echo at [facility]. HTN, goal below 130/80 06/14/2009 Per HTN Taxonomy. HTN, goal below 140/90 S/P angioplasty with stent drug eluting 09/15/09 Plavix x 12m Past Surgical History: Procedure Laterality Date CABG, ARTERIAL, SINGLE 11/25/08 CORONARY ARTERY BYPASS GRAFT USING ARTERY 1 GRAFT performed by MAXIMILIANO CASILLAS at [facility] CABG, ARTERY-VEIN, TWO 11/25/08 CORONARY ARTERY BYPASS GRAFT ARTERIAL AND VENOUS 2 GRAFTS performed by MAXIMILIANO CASILLAS at [facility] CATHETERIZE LEFT HEART THRU SKIN Cardiac Catheterization, Left Heart CATHETERIZE LEFT HEART THRU SKIN 11/17/08 LEFT HEART CATH, PERCUTANEOUS performed by DRAKE MALONE at [facility] CATHETERIZE LEFT HEART THRU SKIN 09/15/09 LEFT HEART CATH, PERCUTANEOUS performed by RICARDO YANG at [facility] COLONOSCOPY THRU STOMA, W/BIOPSY jan 2002 adenomatous and hyperplastic polyps, next in jan 2005 CORONARY ANGIOGRAPHY W/LEFT HEART CATH 11/25/2011 CORONARY ANGIOGRAPHY W/LEFT HEART CATH performed by Jermaine Leary DO at [facility] DESTRUCTION PREMALIGNANT LESION 1ST about 2001 facial lesion. 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 Comment: [employer] Tobacco Use Smoking status: Former Packs/day: 0.50 Years: 5.00 Additional pack years: 0.00 Total pack years: 2.50 Types: Cigarettes Quit date: 05/19/1984 Years since quittin.8 Smokeless tobacco: Never Tobacco comments: quit 30 yrs ago, while in [employer] for 4 years Vaping Use Vaping Use: Never used Substance and Sexual Activity Alcohol use: Yes Comment: socially/rare Drug use: No Comment: up to 2-3 cups of coffee per day Sexual activity: Yes Partners: Female Other Topics Concern Not on file Social History Narrative Not on file Social Determinants of Health Financial Resource Strain: Not on file Food Insecurity: No Food Insecurity (09/20/2019) Hunger Vital Sign Worried About Running Out of Food in the Last Year: Never true Ran Out of Food in the Last Year: Never true Transportation Needs: Not on file Physical Activity: Not on file Stress: Not on file Social Connections: Not on file Intimate Partner Violence: Not on file Housing Stability: Not on file Family History Problem Relation Age of Onset Stroke Mother age 45, Heart Disorder Father old age, age 83 Neurological Disorder Father Alzheimer Current Outpatient Medications Medication Sig Dispense Refill aspirin 81 MG chewable tablet Take 1 Tablet by mouth in the morning. 34 Tab 11 nitroglycerin (NITROSTAT) 0.4 MG SUBL DISSOLVE 1 TABLET UNDER THE TONGUE EVERY 5 MINUTES FOR CHEST PAIN. UP TO 3 DOSES IN 15 MINUTES. 25 Tab 1 Clopidogrel Bisulfate 75 MG Oral Tablet (pLAVix) TAKE 1 TABLET BY MOUTH EVERY DAY 100 Tablet 1 Amiodarone HCl 200 MG Oral Tablet (Cordarone) Take 1 Tablet by mouth daily. 30 Tablet 5 Rosuvastatin Calcium 20 MG Oral Tablet (Crestor) [...] WITH INSULIN PEN DAILY 100 Each 1 Docusate Sodium 100 MG Oral Capsule (Colace) Take 1 Capsule by mouth in the morning and 1 Capsule before bedtime. Vitamin D3 50 MCG (1999 UT) Oral Tablet Chewable Take by mouth. Bisacodyl 10 MG Rectal Suppository (Dulcolax) Administer 1 Suppository into the rectum in the morning. Fleet Enema Rectal Enema Administer into the rectum. Magnesium Hydroxide 400 MG/5ML Oral Suspension (Milk of Magnesia) Take by mouth daily as needed forConstipation. Ondansetron 4 MG Oral Film (Zuplenz) Take by mouth. Polyethylene Glycol 3350 17 GM Oral Packet (MiraLax) Take 1 Packet by mouth in the morning. Sennosides-Docusate Sodium 8.6-50 MG Oral Tablet (Senexon-S) Take 1 Tablet by mouth in the morning. OneTouch Ultra In Vitro Strip (Glucose Blood) Use to check blood sugar up to four times a day. 100 Strip 11 OneTouch Ultra 2 w/Device Kit Use to direct blood sugars up to four times a day. 1 Each 0 OneTouch UltraSoft Lancets Use to check blood sugars up to four times a day. 100 Each 11 Alcohol Prep Pad Used to clean skin prior to fingerstick glucose check. Up to 4 times a day. 1 Each11 No current facility-administered medications for this visit. Physical: BP 96/52 | Pulse 64 | Temp 35.8 C (96.5 F) (Tympanic) | Resp 18 | SpO2 97% General-No apparent Distress. Head, Eyes, Ears, Nose, Throat--Normocephalic, atraumatic Neck-Supple Lymph-no lymphadenopathy Lungs-Clear to Auscultation bilaterally Cardiovascular--Regular rate & Rhythm, +s1, s2, no murmur Abdomen-soft, nontender, nondistended + bowel sounds Extremities--no edema Neuro-alert & oriented x3 brace right foot/ankle +rolling walker. Difficulty getting out of chair. Mskel +tender left lateral ribs with bruising. No head trauma--pt denies hitting head/syncope (G70.9) Neuromyopathy (HCC) (primary encounter diagnosis) Plan: request EMG report/neuro notes. Labs reviewed. (E03.9) Hypothyroidism, unspecified type Plan: RETURN TO WORK OR SCHOOL Ok to d/c levothyroxine 25mcg. (I95.9) Hypotension, unspecified hypotension type Plan: message sent to cardiology for further eval of this. (R29.6) Recurrent falls Plan: fall precautions reviewed--is high risk for future falls due to weakness, hypotension. Cc: PCP Dr Lozano/Nicko Biggs I spent a total of 40-54 minutes (exact time 48 mins) on the date of service in preparation, delivery, and documentation of the care provided to Dirk Garcia excluding any time spent in theperformance of separately billed services. (This note was completed using the dictation program Fluency Direct. As such, there may be misspellings, word substitutions, or other variations that should not change the essence of the clinical content of this encounter note.If there is need for further clarification, please direct questions to the provider listed above.) Milton Christensen MD documented in this encounter Nursing Notes * Lilo Rodriguez LPN - 03/26/2023 1:04 PM EST The patient has been properly identified by confirmation of name and date of . Chief Complaint Patient presents with Acute Leg weakness and increased falls over the last 6 months. Currently living at [facility] for assistance. documented in this encounter Plan of Treatment Upcoming Encounters Date Type Department Care Team (Late st Contact Info) Description 06/05/2023 9:40 AM EST Office Visit Family Practice [facility] [address] [facility] [place] [address] Carola Arrington MD [address] [facility] [place] [address] 08/14/2023 10:15 AM EDT [facility] [place] [place] [address] [place] [address] Lyssa Gar MD [address] [facility] [place] [address] 09/22/2023 9:30 AM EDT Office Visit Cardiology, [facility] [address] [facility] [place] [address] Cesar Elias PA-C [address] [place] [address] Scheduled Referrals Name Type Priority Associated Diagnoses Orde r Schedule PHARMACIST MEDS THERAPY MGMT REFERRAL OP Referral Within 30 days (routine) DM type 2, goal A1C to be determined (HCC) Ordered: 03/26/2023 Health Maintenance Due Date Last Done Comments [...] Additional history exists CKD PHOS USE SMARTSET 17367 02/15/202401/18, 02/12/2023, 12/02/2022, Additional history exists CKD HGB USE SMARTSET 51906 02/23/202402/22, 02/15/2023, 02/13/2023, Additional history exists Pneumococcal [...] as of this encounter Visit Diagnoses Diagnosis Neuromyopathy (HCC)- Primary Myoneural disorders, unspecified Hypothyroidism, unspecified type Hypotension, unspecified hypotension type Recurrent falls Personal history of fall DM type 2, goal A1C to be [...] the patient have Health Care Power of Dowel Maker? Yes, not currently available Code Status History Code Status Date Activated Date Inactivated Comments Full Code 09/15/2009 2:06 PM 09/16/2009 8:49 PM This o rder reflects the patients wishes and were consensually agreed upon. Question Answer Comments Discussion of Advance Directives occurred with: Patient/Family Does the patient have a Living Will? No Does the patient have Health Care Power of Dowel Maker? No Full Code 11/25/2008 1:50 PM 11/29/2008 9:11 PM This order reflects the patients wishes and were consensually agreed upon. Question Answer Comments Discussion of Advance Directives occurred with: Patient Care Teams Machine Taper Relationship Specialty Start Date End Date Carola Arrington MD [address] [place] [address] PCP - General Internal Medicine 12/19/20 documented as of this encounter
--- OUTSIDE RECORDS SUMMARY | 2023-04-01 21:38 | External Medical Summary | Summary of Care ---
Author Name Unknown Organization [facility] Address [address] [place] [address] Phone [phone] Care Team Providers Care Content Development Specialist Name Role Phone Carola Arrington MD Primary Care Provider Reason for Visit * Reason Onset Date Comments Advice 03/25/2023 Encounter Details Date Type Department Care Team ([facility] Contact Info) Description 03/25/2023 Telephone Family Practice [facility] [address] [facility] [place] [address] Carola Arrington MD [address] [place] [address] Advice Allergies No known active allergiesdocumented as of this encounter (statuses as of 03/25/2023) Medications Medication Sig Dispensed Refills Start Date End Date Status aspirin 81 MG chewable tablet Take 1 Tablet by mouth in the morning. 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 UP TO 3 DOSES IN 15 MINUTES. 25 Tab 1 11/17/2018 Active Clopidogrel Bisulfate 75 MG Oral Tablet (pLAVix)Indications: [...] A1C to be determined ([facility]),Type 2 diabetes mellitus with stage 3b chronic kidney disease, without long-term current use of insulin ([facility]) Inject 25 Units under the skin every evening. 15 mL 3 12/30/2022 Active metFORMIN HCl ER 500 MG Oral Tablet Extended Release 24 Hour (Glucophage XR)Indications:DM type 2, goal A1C to be determined ([facility]) TAKE 2 TABLET BY MOUTH [...] to be determined ([facility]) USE WITH INSULIN PEN DAILY 100 Each 1 01/06/2023 Active Levothyroxine Sodium 25 MCG Oral Tablet (Levoxyl)Indications :Acquired hypothyroidism Take 1 Tablet by mouth in the morning. (at least 30 min prior to breakfast or other meds). 30 Tablet 11 01/08/2023 Active Docusate Sodium 100 MG Oral Capsule [...] Active OneTouch Ultra In Vitro Strip (Glucose Blood)Indications:Ty pe 2 diabetes mellitus with stage 3b [...] 1 Each 0 03/19/2023 Active OneTouch UltraSoft LancetsIndications:T ype 2 diabetes mellitus with stage 3b [...] as of this encounter (statuses as of 03/25/2023) Active Problems Problem Noted Date Diagnosed Date [...] with wider margins) Staging: Stage 0 - [id number] - Melanoma in situ Type 2 diabetes [...] as of this encounter (statuses as of 03/25/2023) Resolved Problems Problem Noted Date Diagnosed Date [...] root 4.4 cm 4.29.2009 echo at [facility]. HTN, goal below 130/80 06/14/200901/08 Overview: Per HTN Taxonomy. Type 2 diabetes mellitus wit h hemoglobin A1c goal of less than 7.0% 03/02/2009 03/27/2011 Overview: Modified per Diabetes protocol #14. ICD-10 update of inactive term EXAMINATION OF PARTICIPANT I N CLINICAL TRIAL-genomics 11/17/2008 09/01/2009 Overview: Renamed Per Clinical Trials Billing Project. Study Titile: Genomic Markers for Patients with Cardiovascular Disease Project #[id number] PI: Francoise Tomlin MD Please call [phone] with study related questions INTERFACED RESULT 11/17/2008 10/17/2011 GENOMICS CARDIO RESEARCH OTHER*[id number] 11/17/2008 06/25/2016 Overview: Renamed Per Clinical Trials Billing Project. Study Titile: Genomic Markers for Patients with Cardiovascular Disease Project #[id number] PI: Francoise Tomlin MD Please call [phone] with study related questions CLASS I-II ANGINA [...] as of this encounter (statuses as of 03/25/2023) Immunizations Name Administration Dates Next Due Pneumococcal [...] Comments:quit 30 yrs ago, wh ile in [place] for 4 years Alcohol Use Standard Drinks/Week [...] encounter Miscellaneous Notes * Telephone Encounter - Rachel Mejia LPN - 03/25/2023 10:27 AM EST Pt's is calling to report that the pt has fallen the last couple of days and does not seem to be himself. Reports that the pt has a hx of falling and weakness. Is asking to schedule the pt an appt. Appt was scheduled for tomorrow. Called [facility], spoke with Alix and made her aware about the appt tomorrow. Will also send a BSG report with the pt. * Telephone Encounter - Lilo Monique OSA - 03/25/2023 9:00 AM EST Alix with [facility] calling to report that this patient is now a resident there. She states in the last two days he's had two falls. No injury falls. Patient reports with generalized weakness in his legs. Still ambulating with a walker. Fasting blood sugar this am was 245. Unknown if this is affecting something. Looking for advice. Does provider wish for him to come in for an apt to be evaluated? Just monitor? Please call [phone] ask for Alix. documented in this encounter Plan of Treatment Upcoming Encounters Date Type Department Care Team (Late st Contact Info) Description 03/26/2023 12:40 PM EST Office Visit [facility] [address] [place] [address] Milton [facility]ensen [facility] [place] [address] 06/05/2023 9:40 AM EST Office Visit [facility] [address] [place] [address] [facility] [place] [address] 08/14/2023 10:15 AM EDT Office Visit Dermatology [facility] [address] [facility] [place] [address] Lyssa Gar MD [address] [facility] [place] [address] Health Maintenance Due Date Last Done Comments [...] Additional history exists CKD PHOS USE SMARTSET 98853 02/15/202401/18, 02/12/2023, 12/02/2022, Additional history exists CKD HGB USE SMARTSET 86072 02/23/202402/22, 02/15/2023, 02/13/2023, Additional history exists Pneumococcal [...] the patient have Health Care Power of Transit Mixer Operator? Yes, not currently available Code Status History Code Status Date Activated Date Inactivated Comments Full Code 09/15/2009 2:06 PM 09/16/2009 8:49 PM This o rder reflects the patients wishes and were consensually agreed upon. Question Answer Comments Discussion of Advance Directives occurred with: Patient/Family Does the patient have a Living Will? No Does the patient have Health Care Power of Transit Mixer Operator? No Full Code 11/25/2008 1:50 PM 11/29/2008 9:11 PM This order reflects the patients wishes and were consensually agreed upon. Question Answer Comments Discussion of Advance Directives occurred with: Patient Care Teams Content Development Specialist Relationship Specialty Start Date End Date Carola Arrington MD [address] [facility] [place] [address] PCP - General Internal Medicine 12/19/20 documented as of this encounter
--- OUTSIDE RECORDS SUMMARY | 2023-04-01 21:38 | External Medical Summary | Summary of Care ---
Author Name Unknown Organization [facility] Address [address] [place] [address] Phone [phone] Care Team Providers Care Hybrid Powertrain Development Engineer Name Role Phone Carola Arrington MD Primary Care Provider Reason for Visit * Reason Onset Date Comments Advice 03/25/2023 Encounter Details Date Type Department Care Team ([facility] Contact Info) Description 03/25/2023 Telephone Family Practice [facility] [address] [facility] [place] [address] Carola Arrington MD [address] [facility] [place] [address] Advice Allergies No known active allergiesdocumented as of this encounter (statuses as of 03/25/2023) Medications Medication Sig Dispensed Refills Start Date End Date Status aspirin 81 MG chewable tablet Take 1 Tablet by mouth in the morning. 34 Tab 11 10/28/2017 Active nitroglycerin (NITROSTAT) 0.4 MG SUBLIndications:Senior Software Project Manager shanique coronary artery disease DISSOLVE 1 TABLET [...] insulin ([facility]) Inject 25 Units under the skin every evening. 15 mL 3 12/30/2022 Active metFORMIN HCl ER 500 MG Oral Tablet Extended Release 24 Hour (Glucophage XR)Indications:DM type 2, goal A1C to be determined (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) USE WITH INSULIN PEN DAILY 100 [...] with wider margins) Staging: Stage 0 - [id number] - Melanoma in situ Type 2 diabetes [...] Aortic root 4.4 cm 4.29.2009 echo at [facility]. HTN, goal below 130/80 06/14/200901/08 Overview: Per HTN Taxonomy. Type 2 diabetes mellitus wit h hemoglobin A1c goal of less than 7.0% 03/02/2009 03/27/2011 Overview: Modified per Diabetes protocol #14. ICD-10 update of inactive term EXAMINATION OF PARTICIPANT I N CLINICAL TRIAL-genomics 11/17/2008 09/01/2009 Overview: Renamed Per Clinical Trials Billing Project. Study Titile: Genomic Markers for Patients with Cardiovascular Disease Project #[id number] PI: Francoise Tomlin MD Please call [phone] with study related questions INTERFACED RESULT 11/17/2008 10/17/2011 GENOMICS CARDIO RESEARCH OTHER*[id number] 11/17/2008 06/25/2016 Overview: Renamed Per Clinical Trials Billing Project. Study Titile: Genomic Markers for Patients with Cardiovascular Disease Project #[id number] PI: Francoise Tomlin MD Please call [phone] with study related questions CLASS I-II ANGINA [...] Comments:quit 30 yrs ago, wh ile in [place] for 4 years Alcohol Use Standard Drinks/Week [...] appt. Appt was scheduled for tomorrow. Called [facility], spoke with Alix and made her aware about the appt tomorrow. Will also send a BSG report with the pt. * Telephone Encounter - Lilo Monique OSA - 03/25/2023 9:00 AM EST Alix with [facility] calling to report that this patient [...] to be evaluated? Just monitor? Please call [phone] ask for Alix. documented in this encounter Plan of Treatment Upcoming Encounters Date Type Department Care Team (Late st Contact Info) Description 03/26/2023 12:40 PM EST Office Visit [facility] [address] [place] [address] Milton Christensen [facility] [place] [address] 06/05/2023 9:40 AM EST Office Visit [facility] [address] [place] [address] [facility] [place] [address] 08/14/2023 10:15 AM EDT Office Visit Dermatology [facility] [address] [place] [place] [address] Lyssa Gar MD [address] [place] [place] [address] Health Maintenance Due Date Last Done Comments [...] Additional history exists CKD PHOS USE SMARTSET 57635 02/15/202401/18, 02/12/2023, 12/02/2022, Additional history exists CKD HGB USE SMARTSET 10721 02/23/202402/22, 02/15/2023, 02/13/2023, Additional history exists Pneumococcal [...] the patient have Health Care Power of Jailkeeper? Yes, not currently available Code Status History Code Status Date Activated Date Inactivated Comments Full Code 09/15/2009 2:06 PM 09/16/2009 8:49 PM This o rder reflects the patients wishes and were consensually agreed upon. Question Answer Comments Discussion of Advance Directives occurred with: Patient/Family Does the patient have a Living Will? No Does the patient have Health Care Power of Jailkeeper? No Full Code 11/25/2008 1:50 PM 11/29/2008 9:11 PM This order reflects the patients wishes and were consensually agreed upon. Question Answer Comments Discussion of Advance Directives occurred with: Patient Care Teams Hybrid Powertrain Development Engineer Relationship Specialty Start Date End Date Carola Arrington MD [address] [facility] [place] [address] PCP - General Internal Medicine 12/19/20 documented as of this encounter
--- OUTSIDE RECORDS SUMMARY | 2023-04-01 21:39 | External Medical Summary | Summary of Care ---
Author Name Unknown Organization [facility] Address [address] [place] [address] Phone [phone] Care Team Providers Care Supervisor Assembly Stock Name Role Phone Carola Arrington MD Primary Care Provider Reason for Visit * Reason Onset Date Comments Follow Up 02/24/2023 Information 02/24/2023 Encounter Details Date Type Department Care Team Description 02/24/2023 Telephone Family Practice [facility] [place] [address] Carola Arrington MD [address] [facility] [place] [address] Follow Up; Information Allergies No known active allergiesdocumented as of this encounter (statuses as of 02/27/2023) Medications Medication Sig Dispensed Refills Start Date End Date Status aspirin 81 MG chewable tablet Take 1 Tablet by mouth in the morning. 34 Tab 11 10/28/2017 Active nitroglycerin (NITROSTAT) 0.4 MG SUBLIndications:Water Softener Service Supervisor shanique coronary artery disease DISSOLVE 1 TABLET [...] goal A1C to be determined ([facility]),Type 2 diabetes mellitus with stage 3b chronic kidney disease, without long-term current use of insulin ([facility]) Inject 25 Units under the skin every evening. 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 (at least 30 min prior to breakfast or other meds). 30 Tablet 11 01/08/2023 Active documented as of this encounter (statuses as of 02/27/2023) Active Problems Problem Noted Date Paroxysmal A-fib [...] with wider margins) Staging: Stage 0 - [id number] - Melanoma in situ Type 2 diabetes [...] as of this encounter (statuses as of 02/27/2023) Resolved Problems Problem Noted Date Resolved Date [...] Aortic root 4.4 cm 4.29.2009 echo at [facility]. HTN, goal below 130/80 06/14/2009 2 Overview: Per HTN Taxonomy. Type 2 diabetes mellitus wit h hemoglobin A1c goal of less than 7.0% 03/02/2009 03/27/2011 Overview: Modified per Diabetes protocol #14. ICD-10 update of inactive term EXAMINATION OF PARTICIPANT IN CLINICAL TRIAL-gen omics 11/17/2008 09/01/2009 Overview: Renamed Per Clinical Trials Billing Project. Study Titile: Genomic Markers for Patients with Cardiovascular Disease Project #[id number] PI: Francoise Tomlin MD Please call [phone] with study related questions INTERFACED RESULT 11/17/2008 10/17/2011 GENOMICS CARDIO RESEARCH OTHER*[id number] 200806/25/2016 Overview: Renamed Per Clinical Trials Billing Project. Study Titile: Genomic Markers for Patients with Cardiovascular Disease Project #[id number] PI: Francoise Tomlin MD Please call [phone] with study related questions CLASS I-II ANGINA [...] as of this encounter (statuses as of 02/27/2023) Immunizations Name Administration Dates Next Due Pneumococcal Conjugate Vacc, 13 Valent (Prevnar) 01/18/2016 SEASONAL INFLUENZA, PF, 6 M & Above, IM , (FLULAVAL or FLUZONE) 03/01/2018 Seasonal Influenza, Quadrivalent, ID 02/21/2020 Seasonal [...] Comments:quit 30 yrs ago, wh ile in [email or web address] for 4 years Alcohol Use Standard Drinks/Week [...] Telephone Encounter - Carola Arrington MD - 02/26/2023 7:56 AM EDT Thank you, records reviewed, update appreciated. * Telephone Encounter - Hipolito Montoya RN - 02/25/2023 7:17 PM EDT Called and spoke with patient's spouse Beatrice. She said the patient is now at [facility]. She said he has been there for 10 days. She said tomorrow he is going [facility]. She said he is still David, but he has changed a lot. She said his color is good, but has lost a lot of muscle weight. She said he is not shaking like he was. She said he is seeing Dr. Biggs a neurologist in the hospital. She said he is to have a neurology test they want to do that couldn't do it in the hospital. She said they thought he possibly has neuropathy, Usha Gehrig's or Parkinson's but they are not sure. Beatrice states they either took him off or reduced the amount of a blood pressure medication, but not sure which medication. She said he does get up and he tries, but he is very unsteady. Beatrice says he wants to get well and is very receptive going to the new facility. She said his blood sugar is all over the place. She said they have been giving him insulin at [facility]. She said he never checked hisblood sugar at home, and does not want to do that. She said she is unsure about his blood pressure.Beatrice said he does know where he is at and what is going on. She was appreciative of the call. Discharge summary from [facility], all consultation notes, imaging reports, and lab results printed and placed on Dr. Arrington' desk for review. * Telephone Encounter - Carola Arrington MD - 02/24/2023 7:49 PM EDT Received emergency department note from 02/10/2023. Patient having falls with symptomatic tachy-miah syndrome, was admitted to [facility]. I do not appear to have any further documentation. He has not had follow-up visit with us or Cardiology. Please check to see how patient is doing and get further documentation from [facility] documented in this encounter Plan of Treatment Upcoming Encounters Date Type Specialty Care Team Description 03/05/2023 Office Visit Family Medicine Carola Arrington MD [address] [place] [address] 03/17/2023 Office Visit Pharmacy [facility] [address] [place] [address] 08/14/2023 Office Visit Dermatology Lyssa Gar MD [address] [place] [address] Health Maintenance Due Date Last Done Comments DXA Scan 1936 Zoster Vaccines (1 of 2) 1986 COLONOSCOPY-EVERY 5 YRS AGES 18-100 03/20/2021 03/20/2016, 04/30/2010, 02/05/2002 Depression Screening 10/26/2021 10/26/2020 DTaP,Tdap,and Td Vaccines (2 - Td or Tdap) 07/10/2022 07/10/2012 Diabetic Foot Exam 08/08/2022 08/08/2021, 1 06/28/2019, 04/27/2019, Additional history exists COVID-19 Vaccine (3 - 2022- season) 2023 07/26/2020, 07/05/2020 Influenza Vaccine (FLU shot) (#1) 2023 02/21/2020, 03/02/2019, 03/01/2018, Additional history exists DIABETES-EYE EXAM 02/08/2023 02/08/2022, , 04/28/2013, Additional history exists HbA1c 05/28/2023 11/25/2022, 06/20, 12/04/2021, Additional history exists Albumin/Creatinine Ratio 07/10/2023 023, 08/08/2021, 10/24/2016, Additional history exists B-12 11/26/2023 11/25/2022, 06/20, 04/27/2021, Additional history exists CKD PHOS USE SMARTSET 01736 12/03/202311/16, 09/15/2020, 04/18/2020, Additional history exists TSH 01/08/2024 01/07/2023, 08/0 11/2022, 09/23/2022, Additional history exists CKD HGB USE SMARTSET 98808 02/23/202402/22, 02/15/2023, 01/07/2023, Additional history exists Pneumococcal Vaccine: 65+ Years [...] the patient have Health Care Power of Box Bender? Yes, not currently available Code Status History Code Status Date Activated Date Inactivated Comments Full Code 09/15/2009 2:06 PM 09/16/2009 8:49 PM This o rder reflects the patients wishes and were consensually agreed upon. Question Answer Comments Discussion of Advance Directives occurred with: Patient/Family Does the patient have a Living Will? No Does the patient have Health Care Power of Box Bender? No Full Code 11/25/2008 1:50 PM 11/29/2008 9:11 PM This order reflects the patients wishes and were consensually agreed upon. Question Answer Comments Discussion of Advance Directives occurred with: Patient Care Teams Supervisor Assembly Stock Relationship Specialty Start Date End Date Carola Arrington MD [address] [place] [address] PCP - General Internal Medicine 12/19/20 documented as of this encounter
--- OUTSIDE RECORDS SUMMARY | 2023-04-01 21:39 | External Medical Summary | Summary of Care ---
Author Name Unknown Organization [facility] Address [address] [place] [address] Phone [phone] Care Team Providers Care Econometrician Name Role Phone Carola Arrington MD Primary Care Provider Reason for Visit * Reason Onset Date Comments Order Request 03/17/2023 cream Encounter Details Date Type Department Care Team ([facility] Contact Info) Description 03/17/2023 Telephone Family Practice [facility] [address] [facility] [place] [address] Carola Arrington MD [address] [place] [address] Order Request (cream) Allergies No known active allergiesdocumented as of this encounter (statuses as of 03/19/2023) Medications Medication Sig Dispensed Refills Start Date End Date Status aspirin 81 MG chewable tablet Take 1 Tablet by mouth in the morning. 34 Tab 11 10/28/2017 Active nitroglycerin (NITROSTAT) 0.4 MG SUBLIndications:Compliance Review Specialist shanique coronary artery disease DISSOLVE 1 TABLET [...] current use of insulin ([facility]) Inject 25 Units under the skin every evening. 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 Paroxysmal A-fib 12/06/2022 Unstable angina 10/25/2022 Type 2 diabetes mellitus wit h stage 3b chronic kidney disease, with long-term current use of insulin 08/09/2022 Enlarged aorta 08/09/2022 Hx of melanoma of skin 07/19/2021 Overview: Location: upper back Year: 2016 Depth: MIS Treatment: WLE (positive margins on initial excision, then re-excised again with wider margins) Staging: Stage 0 - [id number] - Melanoma in situ Type 2 diabetes [...] as of this encounter (statuses as of 03/19/2023) Resolved Problems Problem Noted Date Diagnosed Date [...] Aortic root 4.4 cm 4.29.2009 echo at [facility]. HTN, goal below 130/80 06/14/200901/08 Overview: Per HTN Taxonomy. Type 2 diabetes mellitus wit h hemoglobin A1c goal of less than 7.0% 03/02/2009 03/27/2011 Overview: Modified per Diabetes protocol #14. ICD-10 update of inactive term EXAMINATION OF PARTICIPANT I N CLINICAL TRIAL-genomics 11/17/2008 09/01/2009 Overview: Renamed Per Clinical Trials Billing Project. Study Titile: Genomic Markers for Patients with Cardiovascular Disease Project #[id number] PI: Francoise Tomlin MD Please call [phone] with study related questions INTERFACED RESULT 11/17/2008 10/17/2011 GENOMICS CARDIO RESEARCH OTHER*[id number] 11/17/2008 06/25/2016 Overview: Renamed Per Clinical Trials Billing Project. Study Titile: Genomic Markers for Patients with Cardiovascular Disease Project #[id number] PI: Francoise Tomlin MD Please call [phone] with study related questions CLASS I-II ANGINA [...] as of this encounter (statuses as of 03/19/2023) Immunizations Name Administration Dates Next Due Pneumococcal [...] Comments:quit 30 yrs ago, wh ile in [place] for 4 years Alcohol Use Standard Drinks/Week [...] encounter Miscellaneous Notes * Telephone Encounter - Marlen Riley MED ASSIST - 03/19/2023 10:27 AM EDT Unable to take verbal order but note was faxed. * Telephone Encounter - Carola Arrington MD - 03/18/2023 11:13 AM EDT Please provide verbal order for Barrier Cream 3 times a day as needed for skin irritation in buttock and genital area. * Telephone Encounter - Spring Clemente OSA - 03/17/2023 3:16 PM EDT An order was requested for this patient. Name of Requesting Provider: Maya Order Requested: Burrier cream Diagnosis/Reason for Request: pt skin on the buttock area is red If order request is for Mammogram: Is the patient having any breast symptoms? No Is there a chance of ? No Has the patient had any breast problems in the past? No What location AND department does the patient wish to have their order completed at? Send to main campus medical center Fax Number, if applicable: [phone] Call Back Number: [phone] If the caller is not a current patient, please advise the patient to call their current PCP to havethe order's prior to being seen in our office. The patient was informed that our providers would not order anything (medication, labs, etc.) prior to being seen. documented in this encounter Plan of Treatment Upcoming Encounters Date Type Department Care Team (Late st Contact Info) Description 06/05/2023 9:40 AM EST Office Visit [facility] [address] [place] [address] Carola Arrington MD [address] [place] [address] 08/14/2023 10:15 AM EDT Office Visit Dermatology [facility] [address] [facility] [place] [address] Lyssa Gar MD [address] [facility] [place] [address] Health Maintenance Due Date Last Done Comments [...] 10/24/2016, Additional history exists HbA1c 08/12/2023 02/11/2023, 07, 07/10/2022, Additional history exists B-12 11/26/2023 11/25/2022, 06/20, 04/27/2021, Additional history exists TSH 02/11/2024 02/10/2023, 12/18, 12/23/2022, Additional history exists CKD PHOS USE SMARTSET 05486 02/15/202401/18, 02/12/2023, 12/02/2022, Additional history exists CKD HGB USE SMARTSET 61486 02/23/202402/22, 02/15/2023, 02/13/2023, Additional history exists Pneumococcal [...] the patient have Health Care Power of User Experience Manager? Yes, not currently available Code Status History Code Status Date Activated Date Inactivated Comments Full Code 09/15/2009 2:06 PM 09/16/2009 8:49 PM This o rder reflects the patients wishes and were consensually agreed upon. Question Answer Comments Discussion of Advance Directives occurred with: Patient/Family Does the patient have a Living Will? No Does the patient have Health Care Power of User Experience Manager? No Full Code 11/25/2008 1:50 PM 11/29/2008 9:11 PM This order reflects the patients wishes and were consensually agreed upon. Question Answer Comments Discussion of Advance Directives occurred with: Patient Care Teams Econometrician Relationship Specialty Start Date End Date Carola Arrington MD [address] [place] [address] PCP - General Internal Medicine 12/19/20 documented as of this encounter
--- OUTSIDE RECORDS SUMMARY | 2023-04-01 21:39 | External Medical Summary ---
Author Name Unknown Address Unknown Organization K0G:[facility] [address] [place] [address] Laboratory Report Ordering Provider Test Date Status JOSE HODGES 02/22/2023 06:00:34 Final Observation Date Value Abnormality Reference (Units ) Status WBC, Total 02/22/2023 06:00:34 6.54 4.00-10.8 0 (K/uL) Final RBC 02/22/2023 06:00:34 3.44 4.50-5.25 (M/uL) Final Hemoglobin 02/22/2023 06:00:34 11.4 Below low normal 14 .0-16.8 (g/dL) Final HCT 02/22/2023 06:00:34 33.2 Below low normal 40. 0-48.4 (%) Final MCV 02/22/2023 06:00:34 96.5 82.0-99.5 (fL) Final MCH 02/22/2023 06:00:34 33.1 27.0-34.0 (pg) Final MCHC 02/22/2023 06:00:34 34.3 32.0-36.0 (g/dL) Final RDW 02/22/2023 06:00:34 15.7 11.5-15.5 (%) Final Platelets 02/22/2023 06:00:34 142 140-400 (K /uL) Final MPV 02/22/2023 06:00:34 9.6 6.6-11.1 ( fL) Final Performing Location [facility] [address] [place] [address]
--- OUTSIDE RECORDS SUMMARY | 2023-04-01 21:39 | External Medical Summary | Summary of Care ---
Author Name Unknown Organization [facility] Address [address] [place] [address] Phone [phone] Care Team Providers Care Utility System Repairer Name Role Phone Carola Arrington MD Primary Care Provider Encounter Details Date Type Department Care Team (Late st Contact Info) Description 12/23/2022 Telephone Cardiology, [facility] [address] [facility] [place] [address] Cesar Elias PA-C [address] [facility] [place] [address] Allergies No known active allergiesdocumented as of this encounter (statuses as of 03/24/2023) Medications Medication Sig Dispensed Refills Start Date End Date Status aspirin 81 MG chewable tablet Take 1 Tablet by mouth in the morning. 34 Tab 11 8 Active nitroglycerin (NITROSTAT) 0.4 MG SUBLIndications: Chronic coronary artery disease DISSOLVE 1 TABLET UNDER THE TONGUE EVERY 5 MINUTES FOR CHEST PAIN. UP TO 3 DOSES IN 15 MINUTES. 25 Tab 1 9 Active Clopidogrel Bisulfate 75 MG Oral Tablet (pLAVix)Indicati ons:Aortocoronar y bypass status,Acute coronary syndrome (HCC),Chronic coronary artery disease,Enlarged aorta (HCC) TAKE 1 TABLET BY MOUTH EVERY DAY 100 Tablet 1 3 Active Amiodarone HCl 200 MG Oral Tablet (Cordarone)Indic ations:Paroxysma l A-fib (HCC) Take 1 Tablet by mouth daily. 30 Tablet 5 3 Active Rosuvastatin Calcium 20 MG Oral Tablet (Crestor)Indicat ions:Dyslipidemi a, goal LDL below 70 TAKE 1 TABLET DAILY 90 Tablet 3 3 Active Ranolazine ER 1000 MG Oral Tablet Extended Release 12 Hour Take 1 Tablet by mouth in the morning and 1 Tablet before bedtime. 180 Tablet 3 3 Active Lantus SoloStar 100 UNIT/ML Subcutaneous Solution Pen-injector (Insulin Glargine Solostar)Indicat ions:DM type 2, goal A1C to be determined ([facility]),Type 2 diabetes mellitus with stage 3b chronic kidney disease, without long-term current use of insulin (HCC) INJECT 22 UNITS SUBCUTANEOUSLY (UNDER THE SKIN) IN THE MORNING OR DIRECTED 15 mL 3 2 12/31/19 23 Discontinued metFORMIN HCl ER 500 MG Oral Tablet Extended Release 24 Hour (Glucophage XR)Indications:D M type 2, goal A1C to be determined ([facility]) TAKE 3 TABLETS BY MOUTH EVERY DAY WITH FOOD 270 Tablet 1 3 12/31/19 23 Discontinued BD Pen Needle Emperatriz 2nd Gen 32G X 4 MM (Insulin Pen Needle)Indicatio ns:Type 2 diabetes mellitus with stage 3b chronic kidney disease, without long-term current use of insulin (HCC),DM type 2, goal A1C to be determined (HCC) USE WITH INSULIN PEN EVERY DAY 100 Each 1 3 01/07/20 23 Discontinued Isosorbide Mononitrate ER 120 MG Oral Tablet Extended Release 24 Hour (Imdur) TAKE 1 TABLET BY MOUTH EVERY MORNING 90 Tablet 1 3 03/05/20 23 Discontinued documented as of this encounter (statuses as of 03/24/2023) Active Problems Problem Noted Date Diagnosed Date [...] with wider margins) Staging: Stage 0 - [id number] - Melanoma in situ Type 2 diabetes [...] as of this encounter (statuses as of 03/24/2023) Resolved Problems Problem Noted Date Diagnosed Date [facility] HTN, goal below 130/80 06/14/200901/08 Overview: Per HTN Taxonomy. Type 2 diabetes mellitus wit h hemoglobin A1c goal of less than 7.0% 03/02/2009 03/27/2011 Overview: Modified per Diabetes protocol #14. ICD-10 update of inactive term EXAMINATION OF PARTICIPANT I N CLINICAL TRIAL-genomics 11/17/2008 09/01/2009 Overview: Renamed Per Clinical Trials Billing Project. Study Titile: Genomic Markers for Patients with Cardiovascular Disease Project #[id number] PI: Francoise Tomlin MD Please call [phone] with study related questions INTERFACED RESULT 11/17/2008 10/17/2011 GENOMICS CARDIO RESEARCH OTHER*[id number] 11/17/2008 06/25/2016 Overview: Renamed Per Clinical Trials Billing Project. Study Titile: Genomic Markers for Patients with Cardiovascular Disease Project #[id number] PI: Francoise Tomlin MD Please call [phone] with study related questions CLASS I-II ANGINA PECTORIS, STABLE 04/26/2002 09/15/2009 Mixed dyslipidemia 04/26/2002 12/200 9 Overview: Per Lipid Taxonomy. BENIGN NEOPLASM LG BOWEL 01/17/2002 HTN, goal below 140/90 08/23/199806/14 Overview: Per HTN Taxonomy. DM type 2, not at goal 08/23/199803/02 Overview: Modified per Diabetes protocol #14. THREE VESSEL ATHEROSCLEROTIC CORONARY DISEASE 09/15/2009 Dyslipidemia, goal LDL below 160 07/13/2013 documented as of this encounter (statuses as of 03/24/2023) Immunizations Name Administration Dates Next Due Pneumococcal [...] Comments:quit 30 yrs ago, wh ile in [employer] for 4 years Alcohol Use Standard Drinks/Week Comments Yes 0 (1 standard drink = 0.6 oz pur e alcohol) socially PHQ-2 Answer Date Recorded PHQ Adult Total [...] Telephone Encounter - Elise Ordoñez OSA - 12/24/2022 7:59 AM EDT Placed on recall list as Dr Lozano's schedule is not yet released for 2023. * Telephone Encounter - Bianca Ramírez - 12/23/2022 3:49 PM EDT Please call patient to schedule 6 month f/u with Dr Lozano, unable to find any available appts. documented in this encounter Plan of Treatment Upcoming Encounters Date Type Department Care Team (Late st Contact Info) Description 06/05/2023 9:40 AM EST Office Visit Family [facility] [address] [place] [address] Carola Arrington MD [address] [place] [address] 08/14/2023 10:15 AM EDT Office Visit Dermatology [facility] [address] [facility] [place] [address] Lyssa Gar MD [address] [facility] [place] [address] Health Maintenance Due Date Last Done Comments [...] Additional history exists CKD PHOS USE SMARTSET 33172 02/15/202401/18, 02/12/2023, 12/02/2022, Additional history exists CKD HGB USE SMARTSET 69924 02/23/202402/22, 02/15/2023, 02/13/2023, Additional history exists Pneumococcal [...] patient have Health Care Power of Supervisor Paste Plant? Yes, not currently available Code Status History Code Status Date Activated Date Inactivated Comments Full Code 09/15/2009 2:06 PM 09/16/2009 8:49 PM This o rder reflects the patients wishes and were consensually agreed upon. Question Answer Comments Discussion of Advance Directives occurred with: Patient/Family Does the patient have a Living Will? No Does the patient have Health Care Power of Supervisor Paste Plant? No Full Code 11/25/2008 1:50 PM 11/29/2008 9:11 PM This order reflects the patients wishes and were consensually agreed upon. Question Answer Comments Discussion of Advance Directives occurred with: Patient Care Teams Utility System Repairer Relationship Specialty Start Date End Date Carola Arrington MD [address] [place] [address] PCP - General Internal Medicine 12/19/20 documented as of this encounter
--- OUTSIDE RECORDS SUMMARY | 2023-04-01 21:39 | External Medical Summary | Summary of Care ---
Author Name Unknown Organization [facility] Address [address] [place] [address] Phone [phone] Care Team Providers Care Grinder Set Up Operator Thread Tool Name Role Phone Carola Arrington MD Primary Care Provider Encounter Details Date Type Department Care Team Description 03/05/2023 Telephone Family Practice [facility] [address] [place] [address] Carola Arrington MD [address] [place] [address] Allergies No known active allergiesdocumented as of this encounter (statuses as of 03/05/2023) Medications Medication Sig Dispensed Refills Start Date End Date Status aspirin 81 MG chewable tablet Take 1 Tablet by mouth in the morning. 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 15 mL 3 12/30/2022 Active metFORMIN HCl ER 500 MG Oral Tablet Extended Release 24 Hour (Glucophage XR)Indications:DM type 2, goal A1C to be determined ([facility]) TAKE 2 TABLET BY MOUTH IN THE [...] ([facility]) USE WITH INSULIN PEN DAILY 100 Each [...] as of this encounter (statuses as of 03/05/2023) Active Problems Problem Noted Date Paroxysmal A-fib [...] with wider margins) Staging: Stage 0 - [id number] - Melanoma in situ Type 2 diabetes [...] as of this encounter (statuses as of 03/05/2023) Resolved Problems Problem Noted Date Resolved Date [...] Aortic root 4.4 cm 4.29.2009 echo at [facility]. HTN, goal below 130/80 06/14/2009 2 Overview: Per HTN Taxonomy. Type 2 diabetes mellitus wit h hemoglobin A1c goal of less than 7.0% 03/02/2009 03/27/2011 Overview: Modified per Diabetes protocol #14. ICD-10 update of inactive term EXAMINATION OF PARTICIPANT IN CLINICAL TRIAL-gen omics 11/17/2008 09/01/2009 Overview: Renamed Per Clinical Trials Billing Project. Study Titile: Genomic Markers for Patients with Cardiovascular Disease Project #[id number] PI: Francoies Tomlin MD Please call [phone] with study related questions INTERFACED RESULT 11/17/2008 10/17/2011 GENOMICS CARDIO RESEARCH OTHER*[id number] 200806/25/2016 Overview: Renamed Per Clinical Trials Billing Project. Study Titile: Genomic Markers for Patients with Cardiovascular Disease Project #[id number] PI: Francoise Tomlin MD Please call [phone] with study related questions CLASS I-II ANGINA [...] as of this encounter (statuses as of 03/05/2023) Immunizations Name Administration Dates Next Due Pneumococcal [...] Comments:quit 30 yrs ago, wh ile in [employer] for 4 years Alcohol Use Standard Drinks/Week Comments Yes 0 (1 standard drink = 0.6 oz pur e alcohol) socially/rare Food Insecurity Answer Date Recorded Within the [...] * Telephone Encounter - REGGIE Recinos - 03/05/2023 2:00 PM EDT Called [facility] [phone] and spoke with nurse, Malou . Order for d/c was faxed to them. * Telephone Encounter - Carola Arrington MD - 03/05/2023 1:30 PM EDT Please call [facility] to make sure they are aware that we discontinued his isosorbide 60mgdue to low blood pressure. ( in clinic) Patient has been instructed to alert nursing if he hasany chest sx. Isosorbide had been discontinued at instruction of cardiology while inpatient. It was restarted at [facility], family not sure why or under whose order. documented in this encounter Plan of Treatment Upcoming Encounters Date Type Specialty Care Team Description 03/17/2023 Office Visit Pharmacy [facility] [address] [place] [address] 06/05/2023 Office Visit Family Medicine Carola Arrington MD [address] [place] [address] 08/14/2023 Office Visit Dermatology Lyssa Gar MD [address] [place] [address], [place] [address] Health Maintenance Due Date Last Done Comments DXA Scan 1936 Zoster Vaccines (1 of 2) 1986 COLONOSCOPY-EVERY 5 YRS AGES 18-100 03/20/2021 03/20/2016, 04/30/2010, 02/05/2002 Depression Screening 10/26/2021 10/26/2020 DTaP,Tdap,and Td Vaccines (2 - Td or Tdap) 07/10/2022 07/10/2012 Diabetic Foot Exam 08/08/2022 08/08/2021, 1 06/28/2019, 04/27/2019, Additional history exists COVID-19 Vaccine ( - season) 2023 07/26/2020, 07/05/2020 DIABETES-EYE EXAM 02/08/2023 02/08/2022, , 04/28/2013, Additional history exists HbA1c 05/28/2023 11/25/2022, 06/20, 12/04/2021, Additional history exists Albumin/Creatinine Ratio 07/10/2023 023, 08/08/2021, 10/24/2016, Additional history exists B-12 11/26/2023 11/25/2022, 06/20, 04/27/2021, Additional history exists CKD PHOS USE SMARTSET 31061 12/03/202311/16, 09/15/2020, 04/18/2020, Additional history exists TSH 01/08/2024 01/07/2023, 08/11/2022, 09/23/2022, Additional history exists CKD HGB USE SMARTSET 67583 02/23/202402/22, 02/15/2023, 01/07/2023, Additional history exists Pneumococcal [...] patient have Health Care Power of Senior Project Accountant? Yes, not currently available Code Status History Code Status Date Activated Date Inactivated Comments Full Code 09/15/2009 2:06 PM 09/16/2009 8:49 PM This o rder reflects the patients wishes and were consensually agreed upon. Question Answer Comments Discussion of Advance Directives occurred with: Patient/Family Does the patient have a Living Will? No Does the patient have Health Care Power of Senior Project Accountant? No Full Code 11/25/2008 1:50 PM 11/29/2008 9:11 PM This order reflects the patients wishes and were consensually agreed upon. Question Answer Comments Discussion of Advance Directives occurred with: Patient Care Teams Grinder Set Up Operator Thread Tool Relationship Specialty Start Date End Date Carola Arrington MD [address] [place] [address] PCP - General Internal Medicine 12/19/20 documented as of this encounter
--- OUTSIDE RECORDS SUMMARY | 2023-04-01 21:39 | External Medical Summary | Summary of Care ---
Author Name Unknown Organization [facility] Address [address] [place] [address] Phone [phone] Care Team Providers Care Unmanned Aircraft Systems Roboticist Name Role Phone Carola Arrington MD Primary Care Provider Reason for Visit * Reason Onset Date Comments Advice 03/07/2023 Dm 03/07/2023 Encounter Details Date Type Department Care Team Description 03/07/2023 Telephone Pharmacy, [facility] [address] [place] [address] [facility] [address] [place] [address] Advice; Dm Allergies No known active allergiesdocumented as of this encounter (statuses as of 03/07/2023) Medications Medication Sig Dispensed Refills Start Date End Date Status aspirin 81 MG chewable tablet Take 1 Tablet by mouth in the morning. 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 15 mL 3 12/30/2022 Active metFORMIN HCl ER 500 MG Oral Tablet Extended Release 24 Hour (Glucophage XR)Indications:DM type 2, goal A1C to be determined ([facility]) TAKE 2 TABLET BY MOUTH IN THE [...] [facility] [place]) USE WITH INSULIN PEN DAILY 100 Each [...] as of this encounter (statuses as of 03/07/2023) Active Problems Problem Noted Date Paroxysmal A-fib [...] with wider margins) Staging: Stage 0 - [id number] - Melanoma in situ Type 2 diabetes [...] as of this encounter (statuses as of 03/07/2023) Resolved Problems Problem Noted Date Resolved Date [...] Aortic root 4.4 cm 4.29.2009 echo at [facility]. HTN, goal below 130/80 06/14/2009 2 [...] Patients with Cardiovascular Disease Project # PI: Franciose Tomlin MD Please call [phone] with study related questions INTERFACED RESULT 11/17/2008 10/17/2011 GENOMICS CARDIO RESEARCH OTHER*[id number] 200806/25/2016 Overview: Renamed Per Clinical Trials Billing Project. Study Titile: Genomic Markers for Patients with Cardiovascular Disease Project # PI: Francoise Tomlin MD Please call [phone] with study related questions CLASS I-II ANGINA [...] as of this encounter (statuses as of 03/07/2023) Immunizations Name Administration Dates Next Due Pneumococcal [...] Comments:quit 30 yrs ago, wh ile in [place] for 4 years Alcohol Use Standard Drinks/Week [...] Telephone Encounter - Crystal Morgan RPh - 03/07/2023 11:36 AM EDT Patient Phone Numbers Left message for patient's , cancelled appointments and discharged to [facility] for management. Crystal Morgan, Pharm D, BCACP Clinical Pharmacist 03/07/2023, 11:37 AM * Telephone Encounter - Elise Ponce CPhT - 03/07/2023 10:05 AM EDT Caller's name: pts Beatrice Preferred call back number(OFFICE NUMBER FOR ): [phone] Reason for call: Calling asking to speak with Crystal. She states that her is now in assisted living at [facility]. She is asking if he still needs to be followed by [facility] for DM appts. She states that they are monitoring his DM in assisted living now. Please call her. Thank you, Elise Villegas CPhT [facility] ([facility]) (Formerly Telepharmacy) 03/07/2023,10:05 AM documented in this encounter Plan of Treatment Upcoming Encounters Date Type Specialty Care Team Description 06/05/2023 Office Visit Family Medicine Carola Arrington MD [address] [place] [address] 08/14/2023 Office Visit [facility]at[facility] [address] [facility] [address] Health Maintenance Due Date Last Done Comments DXA Scan 1935 Zoster Vaccines (1 of 2) 1986 COLONOSCOPY-EVERY 5 YRS AGES 18-100 03/20/2021 03/20/2016, 04/30/2010, 02/05/2002 Depression Screening 10/26/2021 10/26/2020 DTaP,Tdap,and Td Vaccines (2 - Td or Tdap) 07/10/2022 07/10/2012 Diabetic Foot Exam 08/08/2022 08/08/2021, 1 06/28/2019, 04/27/2019, Additional history exists COVID-19 Vaccine ( season) 2023 07/26/2020, 07/05/2020 DIABETES-EYE EXAM 02/08/2023 02/08/2022, , 04/28/2013, Additional history exists Albumin/Creatinine Ratio 07/10/2023 023, 08/08/2021, 10/24/2016, Additional history exists HbA1c 08/12/2023 02/11/2023, 11/16, 07/10/2022, Additional history exists B-12 11/26/2023 11/25/2022, 06/20, 04/27/2021, Additional history exists TSH 02/11/2024 02/10/2023, 12/18, 12/23/2022, Additional history exists CKD PHOS USE SMARTSET 97826 02/15/202401/18, 02/12/2023, 12/02/2022, Additional history exists CKD HGB USE SMARTSET 46347 02/23/202402/22, 02/15/2023, 02/13/2023, Additional history exists Pneumococcal [...] the patient have Health Care Power of Correspondence Analyst? Yes, not currently available Code Status History Code Status Date Activated Date Inactivated Comments Full Code 09/15/2009 2:06 PM 09/16/2009 8:49 PM This o rder reflects the patients wishes and were consensually agreed upon. Question Answer Comments Discussion of Advance Directives occurred with: Patient/Family Does the patient have a Living Will? No Does the patient have Health Care Power of Correspondence Analyst? No Full Code 11/25/2008 1:50 PM 11/29/2008 9:11 PM This order reflects the patients wishes and were consensually agreed upon. Question Answer Comments Discussion of Advance Directives occurred with: Patient Care Teams Unmanned Aircraft Systems Roboticist Relationship Specialty Start Date End Date Carola Arrington MD [address] [place] [address] PCP - General Internal Medicine 12/19/20 documented as of this encounter
--- OUTSIDE RECORDS SUMMARY | 2023-04-01 21:39 | External Medical Summary ---
Author Name Unknown Address Unknown Organization [id number] [address] [place] [address] Laboratory Report Ordering Provider Test Date Status JOSE HODGES 02/22/2023 06:00:34 Final Observation Date Value Abnormality Reference (Units ) Status BUN 02/22/2023 06:00:34 40 Above high normal 6-20 (mg/dL) Final Creatinine 02/22/2023 06:00:34 1.6 Above high normal 0.6-1.2 (mg/dL) Final Glomerular filtration rate/1.73 sq M.predicted [Volume Rate/Area] in Serum, Plasma or Blood by Creatinine-based formula (CKD-EPI) 02/22/2023 06:00:34 40 Below low normal >=60 (mL/min) Final eGFR is calculated based on the CKD-EPI 2020 equation SODIUM 02/22/2023 06:00:34 137 135-146 (m mol/L) Final Potassium 02/22/2023 06:00:34 4.1 3.5-5.1 (m mol/L) Final Cl 02/22/2023 06:00:34 99 98-107 (mm ol/L) Final CO2 02/22/2023 06:00:34 27 22-32 (mmo l/L) Final Anion gap 02/22/2023 06:00:34 11 7-15 (mmol /L) Final Glucose 02/22/2023 06:00:34 71 70-120 (mg /dL) Final Calcium 02/22/2023 06:00:34 9.3 8.4-10.2 ( mg/dL) Final Performing Location [facility] [address] [place] [address]
--- OUTSIDE RECORDS SUMMARY | 2023-04-01 21:39 | External Medical Summary | Summary of Care ---
Author Name Unknown Organization [facility] Address [address] [place] [address] Phone [phone] Care Team Providers Care Edger Machine Helper Name Role Phone Carola Arrington MD Primary Care Provider Encounter Details Date Type Department Care Team Description 03/07/2023 Orders Only Family Practice [facility] [address] [place] [address] Carola Arrington MD [address] [place] [address] Allergies No known active allergiesdocumented as of this encounter (statuses as of 03/07/2023) Medications Medication Sig Dispensed Refills Start Date End Date Status aspirin 81 MG chewable tablet Take 1 Tablet by mouth in the morning. 34 Tab 11 10/28/2017 Active nitroglycerin (NITROSTAT) 0.4 MG SUBLIndications:Chain Testing Machine Operator shanique coronary artery disease DISSOLVE 1 TABLET [...] [facility]) USE WITH INSULIN PEN DAILY 100 Each [...] with wider margins) Staging: Stage 0 - [id number] - Melanoma in situ Type 2 diabetes [...] Markers for Patients with Cardiovascular Disease Project #[id number] PI: Francoise Tomlin MD Please call [phone] with study related questions INTERFACED RESULT 11/17/2008 10/17/2011 GENOMICS CARDIO RESEARCH OTHER*[id number] 200806/25/2016 Overview: Renamed Per Clinical Trials Billing Project. Study Titile: Genomic Markers for Patients with Cardiovascular Disease Project #[id number] PI: Francoise Tomlin MD Please call [phone] with study related questions CLASS I-II ANGINA [...] Comments:quit 30 yrs ago, wh ile in [place] for 4 years Alcohol Use Standard Drinks/Week [...] Care Team Description 03/17/2023 Office Visit Pharmacy [facility], [facility] [address] [place] [address] 06/05/2023 Office Visit Family Medicine Carola Arrington MD [address] [place] [address] 08/14/2023 Office Visit Dermatology Lyssa Gar MD [address] [place] [address] Health Maintenance Due Date Last Done Comments DXA Scan 1935 Zoster Vaccines (1 of 2) 1986 COLONOSCOPY-EVERY 5 YRS AGES 18-100 03/20/2021 03/20/2016, 04/30/2010, 02/05/2002 Depression Screening 10/26/2021 10/26/2020 DTaP,Tdap,and Td Vaccines (2 - Td or Tdap) 07/10/2022 07/10/2012 Diabetic Foot Exam 08/08/2022 08/08/2021, 1 06/28/2019, 04/27/2019, Additional history exists COVID-19 Vaccine (3 - season) 2023 07/26/2020, 07/05/2020 DIABETES-EYE EXAM 02/08/2023 02/08/2022, , 04/28/2013, Additional history exists HbA1c 05/28/2023 02/11/2023, 07, 07/10/2022, Additional history exists Albumin/Creatinine Ratio 07/10/2023 023, 08/08/2021, 10/24/2016, Additional history exists B-12 11/26/2023 11/25/2022, 06/20, 04/27/2021, Additional history exists TSH 01/08/2024 02/10/2023, 12/18, 12/23/2022, Additional history exists CKD PHOS USE SMARTSET 05257 02/15/202401/18, 02/12/2023, 12/02/2022, Additional history exists CKD HGB USE SMARTSET 30481 02/23/202402/22, 02/15/2023, 02/13/2023, Additional history exists Pneumococcal [...] Priority Date/Time Associated Diagnosis Comments CHEMISTRY-OUTSIDE Routine 02/14/2023 CHEMISTRY-OUTSIDE Routine 02/13/2023 CHEMISTRY-OUTSIDE Routine 02/12/2023 CHEMISTRY-OUTSIDE Routine 02/11/2023 XR CHEST 1 VIEW Routine 02/10/2023 CHEMISTRY-OUTSIDE Routine 02/10/2023 TSH Routine 02/10/2023 documented in this encounter Results * (ABNORMAL) CHEMISTRY-OUTSIDE (02/14/2023) Not all results display below - see scan for full detail OUTSIDE LAB (SEE SCANNED REPORT) Comment:SEE SCAN - BMP,PHOS, MG CREATININE-OUTSID E LAB 1.58(A) 0.6 - 1.4 MG/DL OUTSIDE LAB (SEE SCANNED REPORT) EGFR-OUTSIDE LAB 39.0 ML/MIN OUT SIDE LAB (SEE SCANNED REPORT) POTASSIUM-OUTSIDE LAB 4.7 3.5 - 5.1 MMOL/L OUTSIDE LAB (SEE SCANNED REPORT) GLUCOSE-OUTSIDE LAB 121(A) 70 - 99 MG/DL OUTSIDE LAB (SEE [...] LAB OUTSIDE LAB (SEE SCANNED REPORT) HEMOGLOBIN, [id number] LAB OUTSIDE LAB (SEE SCANNED REPORT) PHOSPHORUS-OUTSID E LAB 3.5 2.5 - 4.9 MG/DL OUTSIDE LAB (SEE SCANNED REPORT) PTH-OUTSIDE LAB OUTS MONIE LAB (SEE SCANNED REPORT) MICROALBUMIN RATIO-OUTSIDE LAB OUTSIDE LA B (SEE SCANNED REPORT) PROTEIN, UA-OUTSIDE LAB OUTSIDE LAB (SEE SCANNED REPORT) HEMOGLOBIN-OUTSID E LAB OUTSIDE LAB (SEE SCANNED REPORT) 02/14/2023 Alvarado Martin MD LABORATORY OUTSIDE LAB (SEE SCANNED REPORT) * (ABNORMAL) CHEMISTRY-OUTSIDE (02/13/2023) Not all results display below - see scan for full detail OUTSIDE LAB (SEE SCANNED REPORT) Comment:SEE SCAN - CBC CREATININE-OUTSID E LAB OUTSIDE LAB (SEE SCANNED REPORT) EGFR-OUTSIDE LAB OUT SIDE LAB (SEE SCANNED REPORT) POTASSIUM-OUTSIDE LAB OUTSIDE LAB (SEE SCANNED REPORT) GLUCOSE-OUTSIDE LAB OUTSIDE LAB (SEE SCANNED REPORT) HOURS FASTING [...] LAB OUTSIDE LAB (SEE SCANNED REPORT) HEMOGLOBIN, [id number] LAB OUTSIDE LAB (SEE SCANNED REPORT) PHOSPHORUS-OUTSID E LAB OUTSIDE LAB (SEE SCANNED REPORT) PTH-OUTSIDE LAB OUTS MONIE LAB (SEE SCANNED REPORT) MICROALBUMIN RATIO-OUTSIDE LAB OUTSIDE LA B (SEE SCANNED REPORT) PROTEIN, UA-OUTSIDE LAB OUTSIDE LAB (SEE SCANNED REPORT) HEMOGLOBIN-OUTSID E LAB 12.4(A) 14.0 - 18.0 G/DL OUTSIDE LAB (SEE SCANNED REPORT) 02/13/2023 Alvarado Martin MD LABORATORY OUTSIDE LAB (SEE SCANNED REPORT) * (ABNORMAL) CHEMISTRY-OUTSIDE (02/12/2023) Not all results display below - see scan for full detail OUTSIDE LAB (SEE SCANNED REPORT) Comment:SEE SCAN - SED RATE, CBC,ERNIE,ALDOLASE,B12,BMP,PHOS,MG,CK,CRP,LYME CREATININE-OUTSID E LAB 1.24 0.6 - 1.4 MG/DL OUTSIDE LAB (SEE SCANNED REPORT) EGFR-OUTSIDE LAB 52.3 ML/MIN OUT SIDE LAB (SEE SCANNED REPORT) POTASSIUM-OUTSIDE LAB 3.9 3.5 - 5.1 MMOL/L OUTSIDE LAB (SEE SCANNED REPORT) GLUCOSE-OUTSIDE LAB 92 70 - 99 MG/DL OUTSIDE LAB (SEE [...] LAB OUTSIDE LAB (SEE SCANNED REPORT) HEMOGLOBIN, [id number] LAB OUTSIDE LAB (SEE SCANNED REPORT) PHOSPHORUS-OUTSID E LAB 3.0 2.5 - 4.9 MG/DL OUTSIDE LAB (SEE SCANNED REPORT) PTH-OUTSIDE LAB OUTS MONIE LAB (SEE SCANNED REPORT) MICROALBUMIN RATIO-OUTSIDE LAB OUTSIDE LA B (SEE SCANNED REPORT) PROTEIN, UA-OUTSIDE LAB OUTSIDE LAB (SEE SCANNED REPORT) HEMOGLOBIN-OUTSID E LAB 12.2(A) 14.0 - 18.0 G/DL OUTSIDE LAB (SEE SCANNED REPORT) 02/12/2023 Davion Correia MD LABORATORY OUTSIDE LAB (SEE SCANNED REPORT) * (ABNORMAL) CHEMISTRY-OUTSIDE (02/11/2023) Not all results display below - see scan for full detail OUTSIDE LAB (SEE SCANNED REPORT) Comment:SEE SCAN - A1C,BMP,M G,LIPID CREATININE-OUTSID E LAB 1.38 0.6 - 1.4 MG/DL OUTSIDE LAB (SEE SCANNED REPORT) EGFR-OUTSIDE LAB 46.0 ML/MIN OUT SIDE LAB (SEE SCANNED REPORT) POTASSIUM-OUTSIDE LAB 4.1 3.5 - 5.1 MMOL/L OUTSIDE LAB (SEE SCANNED REPORT) GLUCOSE-OUTSIDE LAB 111(A) 70 - 99 MG/DL OUTSIDE LAB (SEE SCANNED REPORT) HOURS FASTING OUTSID E LAB (SEE SCANNED REPORT) TRIGLYCERIDES-OUT SIDE LAB 90 0 - 150 MG/DL OUTSIDE LAB (SEE SCANNED REPORT) CHOLESTEROL-OUTSI DE LAB 96 0 - 200 MG/DL OUTSIDE LAB (SEE SCANNED REPORT) HDL-OUTSIDE LAB 40 40 - 60 MG/DL OUTSIDE LAB (SEE SCANNED REPORT) CHOL/HDL RATIO-OUTSIDE LAB 2.4 0 - 5 OUTSIDE LA B (SEE SCANNED REPORT) LDL (CALCULATED)-OUTS MONIE LAB 38 <100 MG/DL OUTSIDE LAB (SEE SCANNED REPORT) LDL (DIRECT MEASURE)-OUTSIDE LAB OUTSIDE LAB (SEE SCANNED REPORT) HEMOGLOBIN, [id number] LAB 8.2(A) 4.5 - 5.6 % OUTSIDE LAB (SEE SCANNED REPORT) PHOSPHORUS-OUTSID E LAB OUTSIDE LAB (SEE SCANNED REPORT) PTH-OUTSIDE LAB OUTS MONIE LAB (SEE SCANNED REPORT) MICROALBUMIN RATIO-OUTSIDE LAB OUTSIDE LA B (SEE SCANNED REPORT) PROTEIN, UA-OUTSIDE LAB OUTSIDE LAB (SEE SCANNED REPORT) HEMOGLOBIN-OUTSID E LAB OUTSIDE LAB (SEE SCANNED REPORT) 02/11/2023 Sofy THIBODEAUX OUTSIDE LAB (SEE SCANNED REPORT) * TSH (02/10/2023) TSH - OUTSIDE LAB 3.951 0.300 - 4.500 UIU/ML OUTSIDE LAB (SEE SCANNED REPORT) Blood Venous blood specimen / Unknown 02/10/2023 Calin Pizarro DO LAB BLOOD ORDERA BLES OUTSIDE LAB (SEE SCANNED REPORT) * (ABNORMAL) CHEMISTRY-OUTSIDE (02/10/2023) Not all results display below - see scan for full detail OUTSIDE LAB (SEE SCANNED REPORT) Comment:SEE SCAN - CMP,MG,CK ,TROP,TSH,URINALYSIS CREATININE-OUTSI DE LAB 1.82(A) 0.6 - 1.4 MG/DL OUTSIDE LAB (SEE SCANNED REPORT) EGFR-OUTSIDE LAB 32.9 ML/MIN OUT SIDE LAB (SEE SCANNED REPORT) POTASSIUM-OUTSID E LAB 4.9 3.5 - 5.1 MMOL/L OUTSIDE LAB (SEE SCANNED REPORT) GLUCOSE-OUTSIDE LAB 286(A) 70 - 99 MG/DL OUTSIDE LAB (SEE SCANNED REPORT) HOURS FASTING OUTSID E LAB (SEE SCANNED REPORT) TRIGLYCERIDES-OU TSIDE LAB OUTSIDE LAB (SEE SCANNED REPORT) CHOLESTEROL-OUTS MONIE LAB OUTSIDE LAB (SEE SCANNED REPORT) HDL-OUTSIDE LAB OUTS MONIE LAB (SEE SCANNED REPORT) CHOL/HDL RATIO-OUTSIDE LAB OUTSIDE LAB (SEE SCANNED REPORT) LDL (CALCULATED)-OUT SIDE LAB OUTSIDE LAB (SEE SCANNED REPORT) LDL (DIRECT MEASURE)-OUTSIDE LAB OUTSIDE LAB (SEE SCANNED REPORT) HEMOGLOBIN, [id number] LAB OUTSIDE LAB (SEE SCANNED REPORT) PHOSPHORUS-OUTSI DE LAB OUTSIDE LAB (SEE SCANNED REPORT) PTH-OUTSIDE LAB OUTS MONIE LAB (SEE SCANNED REPORT) MICROALBUMIN RATIO-OUTSIDE LAB OUTSIDE LAB (SEE SCANNED REPORT) PROTEIN, UA-OUTSIDE LAB 1+ NEGATIVE OUTSIDE LAB (SEE SCANNED REPORT) HEMOGLOBIN-OUTSI DE LAB OUTSIDE LAB (SEE SCANNED REPORT) 02/10/2023 Calin Pizarro DO LABORATORY OUTSIDE LAB (SEE SCANNED REPORT) * XR CHEST 1 VIEW (02/10/2023) Anatomical Region Laterality Modality Chest Other 02/10/2023 Calin Pizarro DO RADIOLOGY (RAD G ENERAL) documented in this encounter Advance Directives Latest [...] patient have Health Care Power of Log Driver? Yes, not currently available Code Status History Code Status Date Activated Date Inactivated Comments Full Code 09/15/2009 2:06 PM 09/16/2009 8:49 PM This o rder reflects the patients wishes and were consensually agreed upon. Question Answer Comments Discussion of Advance Directives occurred with: Patient/Family Does the patient have a Living Will? No Does the patient have Health Care Power of Log Driver? No Full Code 11/25/2008 1:50 PM 11/29/2008 9:11 PM This order reflects the patients wishes and were consensually agreed upon. Question Answer Comments Discussion of Advance Directives occurred with: Patient Care Teams Edger Machine Helper Relationship Specialty Start Date End Date Carola Arrington MD [address] [place] [address] PCP - General Internal Medicine 12/19/20 documented as of this encounter
--- OUTSIDE RECORDS SUMMARY | 2023-04-01 21:39 | External Medical Summary | Summary of Care ---
Author Name Unknown Organization [facility] Address [address] [place] [address] Phone [phone] Care Team Providers Care Echo Tech Name Role Phone Carola Arrington MD Primary Care Provider Reason for Visit * Reason Onset Date [facility] Hospital Follow-Up [facility] 02/10/23- for uncontrolled shaking/Afib, weakness, [address] [place] [address] , now in assisted living, did well over summer Hospital Follow-Up 03/05/2023 Medication Administration 03/05/2023 Flu an d/or Pneumo Inj Encounter Details Date Type Department Care Team Description 03/05/2023 Office Visit [facility] [address] [facility] [place] [address] Carola Arrington MD [address] [facility] [place] [address] Hospital discharge follow-up*; Recurrent falls; Type 2 diabetes mellitus with stage 3b chronic kidney disease, without long-term current use of insulin (HCC); Paroxysmal A-fib (HCC); Foot drop, right; Need for prophylactic vaccination and inoculation against influenza Allergies No known active allergiesdocumented as of this encounter (statuses as of 03/05/2023) Medications Medication Sig Dispensed Refills Start Date End Date Status aspirin 81 MG chewable tablet Take 1 Tablet by mouth in the morning. 34 Tab 11 8 Active nitroglycerin (NITROSTAT) 0.4 MG SUBLIndications:Chr onic [...] A1C to be determined ([facility]),Type 2 diabetes mellitus with stage 3b chronic kidney disease, without long-term current use of insulin ([facility]) Inject 25 Units under the skin every evening. 15 mL 3 3 Active metFORMIN HCl ER 500 MG Oral Tablet Extended Release 24 Hour (Glucophage XR)Indications:DM type 2, goal A1C to be determined ([facility]) TAKE 2 TABLET BY MOUTH IN THE MORNING AND 1 TABLETS IN THE EVENING WITH FOOD 270 Tablet 1 3 Active BD Pen Needle Emperatriz 2nd Gen 32G X 4 MM (Insulin Pen Needle)Indications: Type 2 diabetes mellitus with stage 3b chronic kidney disease, without long-term current use of insulin ([facility]),DM type 2, goal A1C to be determined ([facility]) USE WITH INSULIN PEN DAILY 100 Each 1 3 Active Levothyroxine Sodium 25 MCG Oral Tablet (Levoxyl)Indication s:Acquired hypothyroidism Take 1 Tablet by mouth in the morning. (at least 30 min prior to breakfast or other meds). 30 Tablet 11 3 Active Docusate Sodium 100 MG Oral Capsule [...] by mouth in the morning. 0 Active Isosorbide Mononitrate ER 120 MG Oral Tablet Extended Release 24 Hour (Imdur) TAKE 1 TABLET BY MOUTH EVERY MORNING 90 Tablet 1 3 03/05/20 23 Discontinued Isosorbide Mononitrate ER 60 MG Oral Tablet Extended Release 24 Hour (Imdur) Take 1 Tablet by mouth in the morning. 0 03/05/20 23 Discontinued documented as of this [...] with wider margins) Staging: Stage 0 - [id number] - Melanoma in situ Type 2 diabetes [...] root 4.4 cm 4.29.2009 echo at [facility]. HTN, goal below 130/80 [...] Markers for Patients with Cardiovascular Disease Project #[id number] PI: Francoise Tomlin MD Please call [phone] with study related questions INTERFACED RESULT 11/17/2008 10/17/2011 GENOMICS CARDIO RESEARCH OTHER*[id number] 200806/25/2016 Overview: Renamed Per Clinical Trials Billing Project. Study Titile: Genomic Markers for Patients with Cardiovascular Disease Project #[id number] PI: Francoise Tomlin MD Please call [phone] with study related questions CLASS I-II ANGINA [...] Answered Comments:quit 30 yrs ago, while in [employer] for 4 years Alcohol Use Standard [...] Sign Reading Time Taken Comments Blood Pressure 96/48 03/05/2023 11:14 AM EDT Pulse 68 03/05/2023 11:14 AM EDT Temperature 36.2 C (97.2 F) 03/05/2023 11:14 AM E DT Respiratory Rate 16 03/05/2023 11:14 AM EDT Oxygen Saturation - - Inhaled Oxygen Concentration - - Weight 66.2 kg (146 lb) 03/05/2023 11:14 AM EDT Height - - Body Mass Index 20.36 01/07/2023 10:55 AM EDT documented in this encounter Patient Instructions * Patient Instructions* Carola Arrington MD - 03/05/2023 12:04 PM EDT Next Steps: -- STOP isosorbide. We will call [facility] to confirm. -- YOU call Dr Biggs to make sure you are set up for EMG and follow-up appointments are set -- TELL your nurses if you have any chest symptoms documented in this encounter Progress Notes * Carolyne Verde RN - 03/05/2023 11:51 AM EDT PRE - ADMINISTRATION DOCUMENTATION Are you experiencing any cold symptoms or fever? No Have you had Guillain-Portal Syndrome (an illness that causes paralysis) within the last 6 weeks? No Have you had the flu shot in the past? YES Have you ever had a reaction to the flu shot? No Carolyne Verde RN, 03/05/2023 11:51 AM Immunization Administration Documentation Time Out Procedure Performed: Yes Patient Identified (Ask Name/Date of ): Yes Does the patient have a fever greater than 101 degrees today? No Patient allergic to latex? No VFC Stock: No Immunization(s) verified: Yes, Immunization Name: Flu , VIS Sheet(s) given: Yes Verified Side and Site: Yes Verified Shot(s) with Parent(s)/Patient: Yes * Carola Arrington MD - 03/05/2023 11:35 AM EDT SUBJECTIVE: Dirk Garcia is a 87 year old male. Chief Complaint Patient presents with Hospital Follow-Up [facility] 02/10/23-for uncontrolled shaking/Afib, weakness, [facility] , now in assisted living, did well over summer Hospital Follow-Up Medication Administration Flu and/or Pneumo Inj Here with and daughter Letitia Recent Admission: Patient was recently admitted to [facility] 02/10/23. The date of discharge was 02/14/23. Discharge report received and reviewed. 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 Echo updated. Recommended holding isosorbide, continue amiodarone. No pauses on telemetry. TSH 5.8, free T4 1.1 Neurology consulted (Dr Biggs) - signs of peripheral neuropathy and myopathy. Needs EMG as outpatient. Ortho spine consulted - did not feel foraminal stenoses line up with weakness and balance issues. Agreed with EMG as outpatient, PT/OT. Vitamin B12 (383), ESR 28, CK 124 Creatinine 1.8, above baseline of 1.3-1.4. Back to 1.5 last week. Sodium 132, runs 133-136, large quantities of free water. Up to 137 last week. A1c 8.1% Spent time at [facility]. Now at [facility] assisted living for a week, doing much better overall. 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 Dyslipidemia, goal LDL below 70 E78.5 S/P angioplasty with stent Z95.820 DM type 2, goal A1C to be determined ([facility]) E11.9 HTN, goal below 140/90 I10 History of colon polyps Z86.010 Stable angina I20.89 Hypertensive kidney disease with stage 3b chronic kidney disease I12.9, N18.32 Type 2 diabetes mellitus with stage 3b chronic kidney disease ([facility]) E11.22, N18.32 Chronic kidney disease, stage 3b ([facility]) N18.32 Hx of melanoma of skin Z85.820 Type 2 diabetes mellitus with stage 3b chronic kidney disease, with long-term current use of insulin ([facility]) E11.22, N18.32, Z79.4 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 (at least 30 min prior to breakfast or other meds). 30 Tablet 11 Docusate Sodium 100 MG Oral Capsule (Colace) Take 1 Capsule by mouth in the morning and 1 Capsule before bedtime. Vitamin D3 50 MCG (2000 UT) Oral [...] 1 Tablet by mouth in the morning. BD Pen Needle Emperatriz 2nd Gen 32G X 4 MM (Insulin Pen Needle) USE WITH INSULIN PEN DAILY 100 Each 1 No current facility-administered medications for this visit. Current and discharge medications have been reconciled. Review of patient's allergies indicates: No Known Allergies OBJECTIVE: BP 96/48 (BP Site: Left Arm, BP Position: Sitting, BP Cuff Size: Regular) | Pulse 68 | Temp 36.2 C (97.2 F) (Tympanic) | Resp 16 | Wt 66.2 kg (146 lb) | BMI 20.36 kg/m | BSA 1.82 m REVIEW OF SYSTEMS: Review of Systems Constitutional: Negative for fever. HENT: Negative for trouble swallowing. Eyes: Negative for visual disturbance. Respiratory: Negative for shortness of breath. Cardiovascular: Negative for chest pain and leg swelling. Gastrointestinal: Negative for constipation and diarrhea. Endocrine: Negative for polyuria. Genitourinary: Negative for difficulty urinating. Musculoskeletal: Negative for joint swelling. Skin: Bruises very easily Neurological: Positive for tremors and weakness. Hematological: Bruises/bleeds easily. Psychiatric/Behavioral: Having some trouble with memory PHYSICAL EXAM: BP 96/48 (BP Site: Left Arm, BP Position: Sitting, BP Cuff Size: Regular) | Pulse 68 | Temp 36.2 C (97.2 F) (Tympanic) | Resp 16 | Wt 66.2 kg (146 lb) | BMI 20.36 kg/m | BSA 1.82 m Physical Exam Vitals and nursing note reviewed. Constitutional: Appearance: Normal appearance. He is not ill-appearing. HENT: Mouth/Throat: Mouth: Mucous membranes are dry. Eyes: General: No scleral icterus. Pupils: Pupils are equal, round, and reactive to light. Cardiovascular: Rate and Rhythm: Normal rate and regular rhythm. Heart sounds: Murmur heard. Pulmonary: Effort: Pulmonary effort is normal. Breath sounds: Normal breath sounds. Abdominal: General: Bowel sounds are normal. There is no distension. Palpations: Abdomen is soft. Tenderness: There is no abdominal tenderness. There is no guarding or rebound. Hernia: No hernia is present. Musculoskeletal: Right lower leg: No edema. Left lower leg: No edema. Skin: Findings: Bruising present. Neurological: Mental Status: He is alert. Psychiatric: Mood and Affect: Mood normal. Behavior: Behavior normal. ASSESSMENT: Hospital discharge follow-up (Primary) - DISCH MED RECON CUR MED LIS Recurrent falls Type 2 diabetes mellitus with stage 3b chronic kidney disease, without long-term current use of insulin (HCC) Paroxysmal A-fib (HCC) Foot drop, right Need for prophylactic vaccination and inoculation against influenza - INFLUENZA VACC, QUAD, HIGH DOSE ([facility]) Unclear why isosorbide was restarted at rehab. Patient and family do not recall him having chest symptoms. With a blood pressure of 96/48 we will discontinue that today. See separate encounter calling assisted living to inform them. Patient Instructions Next Steps: -- STOP isosorbide. We will call [facility] to confirm. -- YOU call Dr Biggs to make sure you are set up for EMG and follow-up appointments are set -- TELL your nurses if you have any chest symptoms Follow Up: Return in about 3 months (around 06/05/2023) for Return with [facility]. | For: Return with [facility] | Check-out note: Add daughter Letitia Negrete to list of people we can talk to I have advised the patient to call our office in case of any worsening or new symptoms. The above was discussed and understanding was expressed. I spent a total of 35 minutes on the date of service in preparation, delivery and documentation of the care provided to Dirk Garcia excluding any time spent in the performance of any procedure or separately billable services. Carola Arrington MD [facility] Medicine documented in this encounter Plan of Treatment Upcoming Encounters Date Type Specialty Care Team Description 03/17/2023 Office Visit [facility] [address] [place] [address] 06/05/2023 Office Visit Family Medicine Carola Arrington MD [address] [place] [address] 08/14/2023 Office Visit Dermatology Lyssa Gar MD [address] [place] [address] Health Maintenance Due Date Last Done Comments DXA Scan 1936 Zoster Vaccines (1 of 2) 1986 COLONOSCOPY-EVERY 5 YRS AGES 18-100 03/20/2021 03/20/2016, 04/30/2010, 02/05/2002 Depression Screening 10/26/2021 10/26/2020 DTaP,Tdap,and Td Vaccines (2 - Td or Tdap) 07/10/2022 07/10/2012 Diabetic Foot Exam 08/08/2022 08/08/2021, 1 06/28/2019, 04/27/2019, Additional history exists COVID-19 Vaccine (3 - 2022- season) 2023 07/26/2020, 07/05/2020 DIABETES-EYE EXAM 02/08/2023 02/08/2022, , 04/28/2013, Additional history exists HbA1c 05/28/2023 11/25/2022, 0206/2022, 12/04/2021, Additional history exists Albumin/Creatinine Ratio 07/10/2023 023, 08/08/2021, 10/24/2016, Additional history exists B-12 11/26/2023 11/25/2022, 06/20, 04/27/2021, Additional history exists CKD PHOS USE SMARTSET 51433 12/03/202311/16, 09/15/2020, 04/18/2020, Additional history exists TSH 01/08/2024 01/07/2023, 08/0 11/2022, 09/23/2022, Additional history exists CKD HGB USE SMARTSET 91689 02/23/202402/22, 02/15/2023, 01/07/2023, Additional history exists Pneumococcal [...] Hospital discharge follow-up- Primary Other follow-up examination Recurrent falls Personal history of fall Type 2 diabetes mellitus with stage 3b chronic kidney disease, without long-term current use of insulin (HCC) Paroxysmal A-fib (HCC) Atrial fibrillation Foot drop, right Other acquired deformity of ankle and foot Need for prophylactic vaccination and inoculation against influenza documented in this encounter Advance Directives Latest [...] patient have Health Care Power of Senior Coldfusion Developer? Yes, not currently available Code Status History Code Status Date Activated Date Inactivated Comments Full Code 09/15/2009 2:06 PM 09/16/2009 8:49 PM This o rder reflects the patients wishes and were consensually agreed upon. Question Answer Comments Discussion of Advance Directives occurred with: Patient/Family Does the patient have a Living Will? No Does the patient have Health Care Power of Senior Coldfusion Developer? No Full Code 11/25/2008 1:50 PM 11/29/2008 9:11 PM This order reflects the patients wishes and were consensually agreed upon. Question Answer Comments Discussion of Advance Directives occurred with: Patient Care Teams Echo Tech Relationship Specialty Start Date End Date Carola Arrington MD [address] [place] [address] PCP - General Internal Medicine 12/19/20 documented as of this encounter"
--- OUTSIDE RECORDS SUMMARY | 2023-04-01 21:39 | External Medical Summary | Summary of Care ---
Author Name Unknown Organization [facility] Address [address] [place] [address] Phone [phone] Care Team Providers Care Ordnance Technician Name Role Phone Carola Arrington MD Primary Care Provider Encounter Details Date Type Department Care Team Description 02/10/2023 Result Scan Unspecified Department Carola Arrington MD [address] [place] [address] <No scans attached> Allergies No known active [...] Active Amiodarone HCl 200 MG Oral Tablet (Cordarone)Indication s:Paroxysmal A-fib (HCC) Take 1 Tablet by mouth daily. 30 Tablet 5 12/06/2022 Active Rosuvastatin Calcium 20 MG Oral Tablet (Crestor)Indications: Dyslipidemia, goal LDL below 70 TAKE 1 TABLET DAILY 90 Tablet 3 12/23/2022 Active Ranolazine ER 1000 MG Oral Tablet Extended Release 12 Hour Take 1 Tablet by mouth in the morning and 1 Tablet before bedtime. 180 Tablet 3 12/23/2022 Active Insulin Glargine Solostar 100 UNIT/ML Subcutaneous Solution Pen-injector (Lantus SoloStar)Indications: DM type 2, goal A1C to be [...] Gen 32G X 4 MM (Insulin Pen Needle)Indications:Ty pe 2 diabetes mellitus with stage 3b chronic kidney disease, without long-term current use of insulin (HCC),DM type 2, goal A1C to be determined ([facility]) USE WITH INSULIN PEN DAILY 100 Each 1 01/06/2023 Active Levothyroxine Sodium 25 MCG Oral Tablet (Levoxyl)Indications: Acquired hypothyroidism Take 1 Tablet by mouth in [...] with wider margins) Staging: Stage 0 - [id number] - Melanoma in situ Type 2 diabetes [...] Aortic root 4.4 cm 4.29.2009 echo at [facility]. HTN, goal below 130/80 06/14/2009 [...] Markers for Patients with Cardiovascular Disease Project #[id number] PI: Francoise Tomlin MD Please call [phone] with study related questions INTERFACED RESULT 11/17/2008 10/17/2011 GENOMICS CARDIO RESEARCH OTHER*[id number] 200806/25/2016 Overview: Renamed Per Clinical Trials Billing Project. Study Titile: Genomic Markers for Patients with Cardiovascular Disease Project #[id number] PI: Francoise Tomlin MD Please call [phone] with study related questions CLASS I-II ANGINA [...] Comments:quit 30 yrs ago, wh ile in [employer] for 4 years Alcohol Use Standard [...] Care Team Description 03/17/2023 Office Visit Pharmacy [facility] [address] [address] 06/05/2023 Office Visit Family Medicine Carola Arrington MD [address] [place] [address] 08/14/2023 Office Visit Dermatology Lyssa Gar MD [address] [place] [address], [place] [address] Health Maintenance Due Date Last Done Comments [...] 04/28/2013, Additional history exists HbA1c 05/28/2023 02/11/2023, 11/16, 07/10/2022, Additional history exists Albumin/Creatinine Ratio 07/10/2023 023, 08/08/2021, 10/24/2016, Additional history exists B-12 11/26/2023 11/25/2022, 06/20, 04/27/2021, Additional history exists TSH 01/08/2024 02/10/2023, 12/18, 12/23/2022, Additional history exists CKD PHOS USE SMARTSET 91840 02/15/202401/18, 02/12/2023, 12/02/2022, Additional history exists CKD HGB USE SMARTSET 57222 02/23/202402/22, 02/15/2023, 02/13/2023, Additional history exists Pneumococcal [...] Procedure Name Priority Date/Time Associated Diagnosis Comments OUTSIDE LAB RESULTS 02/10/2023 documented in this encounter Results * OUTSIDE LAB RESULTS (02/10/2023) 02/10/2023 Carola Arrington MD LABORATORY documented in this encounter Advance Directives Latest [...] the patient have Health Care Power of Brick Washer? Yes, not currently available Code Status History Code Status Date Activated Date Inactivated Comments Full Code 09/15/2009 2:06 PM 09/16/2009 8:49 PM This o rder reflects the patients wishes and were consensually agreed upon. Question Answer Comments Discussion of Advance Directives occurred with: Patient/Family Does the patient have a Living Will? No Does the patient have Health Care Power of Brick Washer? No Full Code 11/25/2008 1:50 PM 11/29/2008 9:11 PM This order reflects the patients wishes and were consensually agreed upon. Question Answer Comments Discussion of Advance Directives occurred with: Patient Care Teams Ordnance Technician Relationship Specialty Start Date End Date Carola Arrington MD [address] [place] [address] PCP - General Internal Medicine 12/19/20 documented as of this encounter
--- OUTSIDE RECORDS SUMMARY | 2023-04-01 21:39 | External Medical Summary | Summary of Care ---
Author Name Unknown Organization [facility] Address [address] [place] [address] Phone [phone] Care Team Providers Care Data Administrator Name Role Phone Carola Arrington MD Primary Care Provider Encounter Details Date Type Department Care Team Description 02/11/2023 Result Scan Unspecified Department Davion Correia MD [address] [place] [address] <No scans attached> Allergies No known active [...] be determined ([facility]) USE WITH INSULIN PEN DAILY [...] with wider margins) Staging: Stage 0 - [id number] - Melanoma in situ Type 2 diabetes [...] Markers for Patients with Cardiovascular Disease Project #[id number] PI: Francoise Tomlin MD Please call [phone] with study related questions INTERFACED RESULT 11/17/2008 10/17/2011 GENOMICS CARDIO RESEARCH OTHER*[id number] 200806/25/2016 Overview: Renamed Per Clinical Trials Billing Project. Study Titile: Genomic Markers for Patients with Cardiovascular Disease Project #[id number] PI: Francoise Tomlin MD Please call [phone] with study related questions CLASS I-II ANGINA [...] Comments:quit 30 yrs ago, wh ile in [employer] for 4 years Alcohol Use Standard [...] Care Team Description 03/17/2023 Office Visit Pharmacy [facility] [address] [address] 06/05/2023 Office Visit Family Medicine Carola Arrington MD [address] [place] [address] 08/14/2023 Office Visit Dermatology Lyssa Gar MD [address] [place], [place] [address] [address] Health Maintenance Due Date Last Done Comments [...] 06/20, 04/27/2021, Additional history exists TSH 01/08/2024 01/07/2023, 08/0 11/2022, 09/23/2022, Additional history exists CKD PHOS USE SMARTSET 66890 02/15/202401/18, 02/12/2023, 12/02/2022, Additional history exists CKD HGB USE SMARTSET 26457 02/23/202402/22, 02/15/2023, 02/13/2023, Additional history exists Pneumococcal [...] Procedure Name Priority Date/Time Associated Diagnosis Comments RADIOLOGY SCANNED RESULT 02/11/2023 documented in this encounter Results * RADIOLOGY SCANNED RESULT (02/11/2023) 02/11/2023 Davion Correia MD DIAGNOSTIC RADI OLOGY SERVICES documented in this encounter Advance Directives Latest [...] the patient have Health Care Power of Cutting Machine Tender Helper? Yes, not currently available Code Status History Code Status Date Activated Date Inactivated Comments Full Code 09/15/2009 2:06 PM 09/16/2009 8:49 PM This o rder reflects the patients wishes and were consensually agreed upon. Question Answer Comments Discussion of Advance Directives occurred with: Patient/Family Does the patient have a Living Will? No Does the patient have Health Care Power of Cutting Machine Tender Helper? No Full Code 11/25/2008 1:50 PM 11/29/2008 9:11 PM This order reflects the patients wishes and were consensually agreed upon. Question Answer Comments Discussion of Advance Directives occurred with: Patient Care Teams Data Administrator Relationship Specialty Start Date End Date Carola Arrington MD [address] [place] [address] PCP - General Internal Medicine 12/19/20 documented as of this encounter
--- OUTSIDE RECORDS SUMMARY | 2023-04-01 21:39 | External Medical Summary | Summary of Care ---
Author Name Unknown Organization [facility] Address [address] [place] [address] Phone [phone] Care Team Providers Care Hydrology Teacher Name Role Phone Carola Arrington MD Primary Care Provider Reason for Visit * Reason Onset Date Comments Encounter Created in Error 03/07/2023 Encounter Details Date Type Department Care Team Description 03/07/2023 Telephone Pharmacy, [facility] [address] [place] [address] [facility] [address] [place] [address] Encounter Created in Error Allergies No known active allergiesdocumented as of this encounter (statuses as of 03/07/2023) Medications Medication Sig Dispensed Refills Start Date End Date Status aspirin 81 MG chewable tablet Take 1 Tablet by mouth in the morning. 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 15 mL 3 12/30/2022 Active metFORMIN HCl ER 500 MG Oral Tablet Extended Release 24 Hour (Glucophage XR)Indications:DM type 2, goal A1C to be determined ([facility]) TAKE 2 TABLET BY MOUTH IN THE MORNING AND 1 TABLETS IN THE EVENING WITH FOOD 270 Tablet 1 12/30/2022 Active BD Pen Needle Emperatriz 2nd Gen 32G X 4 MM (Insulin Pen Needle)Indications:T ype 2 diabetes mellitus with stage 3b chronic kidney disease, without long-term current use of insulin ([facility]),DM type 2, goal A1C to be determined ([facility]) USE WITH INSULIN PEN DAILY 100 Each [...] with wider margins) Staging: Stage 0 - [id number] - Melanoma in situ Type 2 diabetes [...] # PI: Francoise Tomlin MD Please call [phone] with study related questions INTERFACED RESULT 11/17/2008 10/17/2011 GENOMICS CARDIO RESEARCH OTHER*[id number] 200806/25/2016 Overview: Renamed Per Clinical Trials Billing Project. Study Titile: Genomic Markers for Patients with Cardiovascular Disease Project # PI: Francoise Tomlin MD Please call [phone] with study related questions CLASS I-II ANGINA [...] Comments:quit 30 yrs ago, wh ile in [employer] for 4 years Alcohol Use Standard Drinks/Week [...] Miscellaneous Notes * Telephone Encounter - Elise Ponce CPhT - 03/07/2023 10:09 AM EDT error documented in this encounter Plan of Treatment Upcoming Encounters Date Type Specialty Care Team Description 04/02/2023 Office Visit Pharmacy [place], [facility] [address] [place] [address] 06/05/2023 Office Visit Family Medicine Carola Arrington MD [address] [place] [address] 08/14/2023 Office Visit Dermatology Lyssa Gar MD [address] [place] [address] Health Maintenance Due Date Last Done Comments [...] Additional history exists CKD PHOS USE SMARTSET 57622 02/15/202401/18, 02/12/2023, 12/02/2022, Additional history exists CKD HGB USE SMARTSET 80510 02/23/202402/22, 02/15/2023, 02/13/2023, Additional history exists Pneumococcal [...] the patient have Health Care Power of Quality System Manager? Yes, not currently available Code Status History Code Status Date Activated Date Inactivated Comments Full Code 09/15/2009 2:06 PM 09/16/2009 8:49 PM This o rder reflects the patients wishes and were consensually agreed upon. Question Answer Comments Discussion of Advance Directives occurred with: Patient/Family Does the patient have a Living Will? No Does the patient have Health Care Power of Quality System Manager? No Full Code 11/25/2008 1:50 PM 11/29/2008 9:11 PM This order reflects the patients wishes and were consensually agreed upon. Question Answer Comments Discussion of Advance Directives occurred with: Patient Care Teams Hydrology Teacher Relationship Specialty Start Date End Date Carola Arrington MD [address] [place] [address] PCP - General Internal Medicine 12/19/20 documented as of this encounter
--- OUTSIDE RECORDS SUMMARY | 2023-04-01 21:39 | External Medical Summary | Summary of Care ---
Author Name Unknown Organization [facility] Address [address] [place] [address] Phone [phone] Care Team Providers Care Slipman Name Role Phone Carola Arrington MD Primary Care Provider Reason for Visit * Reason Onset Date Comments Encounter Created in Error 03/07/2023 Encounter Details Date Type Department Care Team Description 03/07/2023 Telephone Pharmacy, [facility] [address] [place] [address] [facility] [address] [place] [address] Encounter Created in Error Allergies No known active allergiesdocumented as of this encounter (statuses as of 03/07/2023) Medications Medication Sig Dispensed Refills Start Date End Date Status aspirin 81 MG chewable tablet Take 1 Tablet by mouth in the morning. 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 15 mL 3 12/30/2022 Active metFORMIN HCl ER 500 MG Oral Tablet Extended Release 24 Hour (Glucophage XR)Indications:DM type 2, goal A1C to be determined ([facility]) TAKE 2 TABLET BY [...] be determined ([facility]) USE WITH INSULIN PEN [...] with wider margins) Staging: Stage 0 - [id number] - Melanoma in situ Type 2 diabetes [...] cm 4.29.2009 echo at [facility]. HTN, goal below 130/80 06/14/2009 2 [...] # PI: Francoise Tomlin MD Please call [phone] with study related questions INTERFACED RESULT 11/17/2008 10/17/2011 GENOMICS CARDIO RESEARCH OTHER*[id number] 200806/25/2016 Overview: Renamed Per Clinical Trials Billing Project. Study Titile: Genomic Markers for Patients with Cardiovascular Disease Project # PI: Francoise Tomlin MD Please call [phone] with study related questions CLASS I-II ANGINA [...] Comments:quit 30 yrs ago, wh ile in [employer] for 4 years Alcohol Use Standard Drinks/Week [...] Care Team Description 04/02/2023 Office Visit Pharmacy [place], [facility] [address] [place] [address] 06/05/2023 Office Visit Family Medicine Carola Arrington MD [address] [place] [address] 08/14/2023 Office Visit Dermatology Lyssa Gar MD [address] [place] [address] Health Maintenance Due Date Last Done Comments [...] Additional history exists CKD PHOS USE SMARTSET 32643 02/15/202401/18, 02/12/2023, 12/02/2022, Additional history exists CKD HGB USE SMARTSET 83230 02/23/202402/22, 02/15/2023, 02/13/2023, Additional history exists Pneumococcal [...] the patient have Health Care Power of Agricultural Chemicals Inspector? Yes, not currently available Code Status History Code Status Date Activated Date Inactivated Comments Full Code 09/15/2009 2:06 PM 09/16/2009 8:49 PM This o rder reflects the patients wishes and were consensually agreed upon. Question Answer Comments Discussion of Advance Directives occurred with: Patient/Family Does the patient have a Living Will? No Does the patient have Health Care Power of Agricultural Chemicals Inspector? No Full Code 11/25/2008 1:50 PM 11/29/2008 9:11 PM This order reflects the patients wishes and were consensually agreed upon. Question Answer Comments Discussion of Advance Directives occurred with: Patient Care Teams Slipman Relationship Specialty Start Date End Date Carola Arrington MD [address] [place] [address] PCP - General Internal Medicine 12/19/20 documented as of this encounter
--- OUTSIDE RECORDS SUMMARY | 2023-04-01 21:39 | External Medical Summary | Summary of Care ---
Author Name Unknown Organization [facility] Address [address] [place] [address] Phone [phone] Care Team Providers Care Retail Project Merchandiser Name Role Phone Carola Arrington MD Primary Care Provider Reason for Visit * Reason Onset Date Comments Order Request 03/17/2023 Glucometer and s upplies Encounter Details Date Type Department Care Team ([facility] Contact Info) Description 03/17/2023 Telephone Family Practice [facility] [address] [place] [address] Carola Arrington MD [address] [place] [address] Order Request (Glucometer and supplies) Allergies No known active allergiesdocumented as of this encounter (statuses as of 03/19/2023) Medications Medication Sig Dispensed Refills Start Date End Date Status aspirin 81 MG chewable tablet Take 1 Tablet by mouth in the morning. 34 Tab 11 10/28/2017 Active nitroglycerin (NITROSTAT) 0.4 MG SUBLIndications:Follow Up Rep shanique coronary artery disease DISSOLVE 1 TABLET [...] goal A1C to be determined ([facility]),Type 2 diabetes mellitus with stage 3b chronic kidney disease, without long-term current use of insulin ([facility]) Inject 25 Units under the skin every evening. 15 mL 3 12/30/2022 Active metFORMIN HCl ER 500 MG Oral Tablet Extended Release 24 Hour (Glucophage XR)Indications:DM type 2, goal A1C to be determined ([facility]) TAKE 2 TABLET BY MOUTH IN THE MORNING AND 1 TABLETS IN THE EVENING WITH FOOD 270 Tablet 1 12/30/2022 Active BD Pen Needle Emperatriz 2nd Gen 32G X 4 MM (Insulin Pen Needle)Indications:T ype 2 diabetes mellitus with stage 3b chronic kidney disease, without long-term current use of insulin ([facility]),DM type 2, goal A1C to be determined ([facility]) USE WITH INSULIN PEN DAILY [...] a day. 1 Each 0 03/19/2023 Active [place] [employer] DairyTouch UltraSoft LancetsIndications:T ype 2 diabetes mellitus with [...] with wider margins) Staging: Stage 0 - [id number] - Melanoma in situ Type 2 diabetes [...] Markers for Patients with Cardiovascular Disease Project #[id number] PI: Francoise Tomlin MD Please call [phone] with study related questions INTERFACED RESULT 11/17/2008 10/17/2011 GENOMICS CARDIO RESEARCH OTHER*[id number] 11/17/2008 06/25/2016 Overview: Renamed Per Clinical Trials Billing Project. Study Titile: Genomic Markers for Patients with Cardiovascular Disease Project #[id number] PI: Francoise Tomlin MD Please call [phone] with study related questions CLASS I-II ANGINA [...] Comments:quit 30 yrs ago, wh ile in [employer] for 4 years Alcohol Use Standard Drinks/Week [...] 8:32 AM EDT Sexual Orientation Straight 09/20/2019 3 :04 PM EDT Job Start Date Occupation Industry Not on file Not on file Not on file documented as of this encounter Miscellaneous Notes * Telephone Encounter - Marlen Riley MED LEXIE - 03/19/2023 3:46 PM EDT Faxed. * Telephone Encounter - Carola Arrington MD - 03/19/2023 3:12 PM EDT Lancet and supplies ordered. Including alcohol swabs Please let facility know * Telephone Encounter - Riley, MarlenREGGIE sams - 03/19/2023 10:25 AM EDT Patient needs new order and supplies including alcohol pads. He came to facility without it. * Telephone Encounter - Carola Arrington MD - 03/18/2023 6:58 PM EDT Please clarify - does patient need a new glucometer and supplies? Or do they need an order to be able to use his or theirs? * Telephone Encounter - Crystal Morgan RPh - 03/18/2023 8:10 AM EDT Patient no longer following with [facility] per patient's request. Request this order fulfilled by pcp. Crystal Morgan, Pharm D[facility] 03/18/2023, 8:10 AM * Telephone Encounter - Spring Clemente OSA - 03/17/2023 3:10 PM EDT An order was requested for this patient. Name of Requesting Provider: Mathew Cisneros Order Requested: Glucometer and supplies Diagnosis/Reason for Request: pt has diabetes If order request is for Mammogram: Is the patient having any breast symptoms? No Is there a chance of ? No Has the patient had any breast problems in the past? No What location AND department does the patient wish to have their order completed at? [facility] Fax Number, if applicable: [phone] Call Back Number: [phone] Please do sperate orders for lancets test strips and achole wipes If the caller is not a current [...] Description 06/05/2023 9:40 AM EST Office Visit [facility] [address] [place] [address] Carola Arrington MD [address] [place] [address] 08/14/2023 10:15 AM EDT Office Visit Dermatology [facility] [address] [facility] [place] [address] Lyssa Gar MD [address] [facility] [place] [address] Health Maintenance Due Date Last Done Comments [...] 10/24/2016, Additional history exists HbA1c 08/12/2023 02/11/2023, 07/, 07/10/2022, Additional history exists B-12 11/26/2023 11/25/2022, 06/20, 04/27/2021, Additional history exists TSH 02/11/2024 02/10/2023, 12/18, 12/23/2022, Additional history exists CKD PHOS USE SMARTSET 01032 02/15/202401/18, 02/12/2023, 12/02/2022, Additional history exists CKD HGB USE SMARTSET 18527 02/23/202402/22, 02/15/2023, 02/13/2023, Additional history exists Pneumococcal [...] the patient have Health Care Power of Machine Feeder? Yes, not currently available Code Status History Code Status Date Activated Date Inactivated Comments Full Code 09/15/2009 2:06 PM 09/16/2009 8:49 PM This o rder reflects the patients wishes and were consensually agreed upon. Question Answer Comments Discussion of Advance Directives occurred with: Patient/Family Does the patient have a Living Will? No Does the patient have Health Care Power of Machine Feeder? No Full Code 11/25/2008 1:50 PM 11/29/2008 9:11 PM This order reflects the patients wishes and were consensually agreed upon. Question Answer Comments Discussion of Advance Directives occurred with: Patient Care Teams Retail Project Merchandiser Relationship Specialty Start Date End Date Carola Arrington MD [address] [place] [address] PCP - General Internal Medicine 12/19/20 documented as of this encounter
--- OUTSIDE RECORDS SUMMARY | 2023-04-01 21:39 | External Medical Summary | Summary of Care ---
Author Name Unknown Organization [facility] Address [address] [place] [address] Phone [phone] Care Team Providers Care Machine Repairer Maintenance Name Role Phone Carola Arrington MD Primary Care Provider Encounter Details Date Type Department Care Team Description 02/10/2023 Result Scan Unspecified Department <No scans attached> [...] with wider margins) Staging: Stage 0 - [id number] - Melanoma in situ Type 2 diabetes [...] Markers for Patients with Cardiovascular Disease Project #[id number] PI: Francoise Tomlin MD Please call [phone] with study related questions INTERFACED RESULT 11/17/2008 10/17/2011 GENOMICS CARDIO RESEARCH OTHER*[id number] 200806/25/2016 Overview: Renamed Per Clinical Trials Billing Project. Study Titile: Genomic Markers for Patients with Cardiovascular Disease Project #[id number] PI: Francoise Tomlin MD Please call [phone] with study related questions CLASS I-II ANGINA [...] Comments:quit 30 yrs ago, wh ile in [employer] for 4 years Alcohol Use Standard Drinks/Week [...] Care Team Description 03/17/2023 Office Visit [facility] [address] [place] [address] 06/05/2023 Office Visit Family Medicine Carola Arrington MD [address] [place] [address] 08/14/2023 Office Visit Dermatology Lyssa Gar MD [address] [facility] [place] [address] Health Maintenance Due Date Last Done Comments [...] Additional history exists CKD PHOS USE SMARTSET 03566 02/15/202401/18, 02/12/2023, 12/02/2022, Additional history exists CKD HGB USE SMARTSET 97914 02/23/202402/22, 02/15/2023, 02/13/2023, Additional history exists Pneumococcal [...] Procedure Name Priority Date/Time Associated Diagnosis Comments EKG SCANNED RESULT 02/10/2023 RADIOLOGY SCANNED RESULT 02/10/2023 RADIOLOGY SCANNED RESULT 02/10/2023 RADIOLOGY SCANNED RESULT 02/10/2023 documented in this encounter Results * RADIOLOGY SCANNED RESULT (02/10/2023) 02/10/2023 No Physician Data Unknown DIAGNOSTIC RAD IOLOGY SERVICES * RADIOLOGY SCANNED RESULT (02/10/2023) 02/10/2023 No Physician Data Unknown DIAGNOSTIC RAD IOLOGY SERVICES * RADIOLOGY SCANNED RESULT (02/10/2023) 02/10/2023 No Physician Data Unknown DIAGNOSTIC RAD IOLOGY SERVICES * EKG SCANNED RESULT (02/10/2023) 02/10/2023 No Physician Data Unknown EKG documented in this encounter Advance Directives Latest [...] the patient have Health Care Power of Dog Hair Clipper? Yes, not currently available Code Status History Code Status Date Activated Date Inactivated Comments Full Code 09/15/2009 2:06 PM 09/16/2009 8:49 PM This o rder reflects the patients wishes and were consensually agreed upon. Question Answer Comments Discussion of Advance Directives occurred with: Patient/Family Does the patient have a Living Will? No Does the patient have Health Care Power of Dog Hair Clipper? No Full Code 11/25/2008 1:50 PM 11/29/2008 9:11 PM This order reflects the patients wishes and were consensually agreed upon. Question Answer Comments Discussion of Advance Directives occurred with: Patient Care Teams Machine Repairer Maintenance Relationship Specialty Start Date End Date Carola Arrington MD [address] [facility] [place] [address] PCP - General Internal Medicine 12/19/20 documented as of this encounter
--- OUTSIDE RECORDS SUMMARY | 2023-04-01 21:39 | External Medical Summary | Summary of Care ---
Author Name Unknown Organization [facility] Address [address] [place] [address] Phone [phone] Care Team Providers Care Communication Specialist Name Role Phone Carola Arrington MD Primary Care Provider Encounter Details Date Type Department Care Team ([facility] st Contact Info) Description 03/07/2023 Telephone Family Practice [facility] [address] [place] [address] Carola Arrington MD [address] [place] [address] Allergies No known active allergiesdocumented as of this encounter (statuses as of 03/10/2023) Medications Medication Sig Dispensed Refills Start Date End Date Status aspirin 81 MG chewable tablet Take 1 Tablet by mouth in the morning. 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 15 mL 3 12/30/2022 Active metFORMIN HCl ER 500 MG Oral Tablet Extended Release 24 Hour (Glucophage XR)Indications:DM type 2, goal A1C to be determined ([facility]) TAKE 2 TABLET BY MOUTH IN THE MORNING AND 1 TABLETS IN THE EVENING WITH FOOD 270 Tablet 1 12/30/2022 Active BD Pen Needle Emperatriz 2nd Gen 32G X 4 MM (Insulin Pen Needle)Indications:T ype 2 diabetes mellitus with stage 3b chronic kidney disease, without long-term current use of insulin ([facility]),DM type 2, goal A1C to be determined ([facility]) USE WITH INSULIN PEN DAILY 100 [...] as of this encounter (statuses as of 03/10/2023) Active Problems Problem Noted Date Diagnosed Date [...] with wider margins) Staging: 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 HTN, goal below 130/80 06/14/200901/08 Overview: Per HTN Taxonomy. Type 2 diabetes mellitus wit h hemoglobin A1c goal of less than 7.0% 03/02/2009 03/27/2011 Overview: Modified per Diabetes protocol #14. ICD-10 update of inactive term EXAMINATION OF PARTICIPANT I N CLINICAL TRIAL-genomics 11/17/2008 09/01/2009 Overview: Renamed Per Clinical Trials Billing Project. Study Titile: Genomic Markers for Patients with Cardiovascular Disease Project #[id number] PI: Francoise Tomlin MD Please call [phone] with study related questions INTERFACED RESULT 11/17/2008 10/17/2011 GENOMICS CARDIO RESEARCH OTHER*[id number] 11/17/2008 06/25/2016 Overview: Renamed Per Clinical Trials Billing Project. Study Titile: Genomic Markers for Patients with Cardiovascular Disease Project # PI: Francoise Tomlin MD Please call [phone] with study related questions CLASS I-II ANGINA [...] as of this encounter (statuses as of 03/10/2023) Immunizations Name Administration Dates Next Due Pneumococcal [...] Comments:quit 30 yrs ago, wh ile in [employer] for 4 years Alcohol Use Standard Drinks/Week [...] * Telephone Encounter - REGGIE Recinos - 03/10/2023 4:13 PM EDT Daughter informed to hand picker at check-in desk outside radiology. Copy placed in scanning. * Telephone Encounter - Carola Arrington MD - 03/10/2023 1:43 PM EDT Form completed, put in Arrington folder. Please let daughter know so she can pick it up. * Telephone Encounter - REGGIE Recinos - 03/10/2023 1:13 PM EDT Will await form. * Telephone Encounter - Martha Fowler LPN - 03/10/2023 10:47 AM EDT Alcides calling in to check on the status of the form she dropped off. Made aware that there is a page 2 and 3, she stated that page 3 is nothing but she will drop off page 2 (today or tomorrow) to have Carola Arrington MD review and fill out. * Telephone Encounter - Carola Arrington MD - 03/07/2023 5:41 PM EDT Please call daughter alcides [email or web address]. She brought form for long-term care to his visit on Friday. It indicates that there are 3 pages,however she only brought page 1. Page 1 has been completed. If she would like us to complete the other pages please provide them in whatever form is most convenient. documented in this encounter Plan of Treatment Upcoming Encounters Date Type Department Care Team (Late st Contact Info) Description 06/05/2023 9:40 AM EST Office Visit Family [facility] [address] [place] [address] Carola Arrington MD [address] [place] [address] 08/14/2023 10:15 AM EDT Office Visit Dermatology [facility] [address] [facility] [place] [address] Lyssa Gar MD [address] [place] [address] Health Maintenance Due Date Last Done Comments [...] Additional history exists CKD PHOS USE SMARTSET 12959 02/15/202401/18, 02/12/2023, 12/02/2022, Additional history exists CKD HGB USE SMARTSET 13702 02/23/202402/22, 02/15/2023, 02/13/2023, Additional history exists Pneumococcal [...] the patient have Health Care Power of Pharmacy Data Analyst? Yes, not currently available Code Status History Code Status Date Activated Date Inactivated Comments Full Code 09/15/2009 2:06 PM 09/16/2009 8:49 PM This o rder reflects the patients wishes and were consensually agreed upon. Question Answer Comments Discussion of Advance Directives occurred with: Patient/Family Does the patient have a Living Will? No Does the patient have Health Care Power of Pharmacy Data Analyst? No Full Code 11/25/2008 1:50 PM 11/29/2008 9:11 PM This order reflects the patients wishes and were consensually agreed upon. Question Answer Comments Discussion of Advance Directives occurred with: Patient Care Teams Communication Specialist Relationship Specialty Start Date End Date Carola Arrington MD [address] [place] [address] PCP - General Internal Medicine 12/19/20 documented as of this encounter
--- OUTSIDE RECORDS SUMMARY | 2023-04-01 21:40 | External Medical Summary | Summary of Care ---
Author Name Unknown Organization [facility] Address [address] [place] [address] Phone [phone] Care Team Providers Care Alarm Adjuster Name Role Phone Carola Arrington MD Primary Care Provider Reason for Visit * Reason Onset Date Comments Test Results 01/08/2023 Encounter Details Date Type Department Care Team Description 01/08/2023 Telephone Family Practice [facility] [address] [place] [address] Nathan Cardenas DO [address] [place] [address] Test Results (/) Allergies No known active allergiesdocumented as of this encounter (statuses as of 01/08/2023) Medications Medication Sig Dispensed Refills Start Date End Date Status aspirin 81 MG chewable tablet Take 1 Tablet by mouth in the morning. 34 Tab 11 10/28/2017 Active nitroglycerin (NITROSTAT) 0.4 MG SUBLIndications:Candy Roller shanique coronary artery disease DISSOLVE 1 TABLET [...] without long-term current use of insulin ([facility]) Inject 25 Units under the skin every [...] with wider margins) Staging: Stage 0 - RpiN3M6 - Melanoma in situ Type 2 diabetes [...] root 4.4 cm 4.29.2009 echo at [facility]. HTN, goal below 130/80 [...] Markers for Patients with Cardiovascular Disease Project #[id number] PI: Francoise Tomlin MD Please call [phone] with study related questions INTERFACED RESULT 11/17/2008 10/17/2011 GENOMICS CARDIO RESEARCH OTHER*[id number] 200806/25/2016 Overview: Renamed Per Clinical Trials Billing Project. Study Titile: Genomic Markers for Patients with Cardiovascular Disease Project #[id number] PI: Francoise Tomlin MD Please call [phone] with study related questions CLASS I-II ANGINA [...] Comments:quit 30 yrs ago, wh ile in [place] for 4 years Alcohol Use Standard Drinks/Week [...] Telephone Encounter - Columba Bridges LPN - 01/08/2023 2:21 PM EDT Patient returned call. Informed of message. Verbalized understanding. * Telephone Encounter - MarlenREGGIE Barclay - 01/08/2023 2:04 PM EDT message left [...] Medicine Carola Arrington MD [address] [place] [address] 03/17/2023 Office Visit [facility] Stephanie [address] [place] [address] 08/14/2023 Office Visit Dermatology Lyssa Gar MD [address] [facility], [place] [address] Scheduled Orders Name Type Priority Associated Diagnoses [...] Additional history exists CKD PHOS USE SMARTSET 82817 12/03/202311/16, 09/15/2020, 04/18/2020, Additional history exists CKD HGB USE SMARTSET 81299 01/08/202401/07, 01/07/2023, 12/02/2022, Additional history exists Pneumococcal [...] Cardenas DO LAB BLOOD ORDERABLE S LABORATORY [facility] [address] [place] [address] documented in this encounter Visit Diagnoses Diagnosis [...] the patient have Health Care Power of Joint Setter? Yes, not currently available Code Status History Code Status Date Activated Date Inactivated Comments Full Code 09/15/2009 2:06 PM 09/16/2009 8:49 PM This o rder reflects the patients wishes and were consensually agreed upon. Question Answer Comments Discussion of Advance Directives occurred with: Patient/Family Does the patient have a Living Will? No Does the patient have Health Care Power of Joint Setter? No Full Code 11/25/2008 1:50 PM 11/29/2008 9:11 PM This order reflects the patients wishes and were consensually agreed upon. Question Answer Comments Discussion of Advance Directives occurred with: Patient Care Teams Alarm Adjuster Relationship Specialty Start Date End Date Carola Arrington MD [address] [place] [address] PCP - General Internal Medicine 12/19/20 documented as of this encounter
--- OUTSIDE RECORDS SUMMARY | 2023-04-01 21:40 | External Medical Summary ---
Author Name Unknown Address Unknown Organization [id number]:LABORATORY [facility] [address] [place] [address] Laboratory Report Ordering Provider Test Date Status JOSE HODGES 02/15/2023 08:53:22 Final Observation Date Value Abnormality Reference (Units ) Status WBC, Total 02/15/2023 08:53:22 6.72 4.00-10.8 0 (K/uL) Final RBC 02/15/2023 08:53:22 3.85 4.50-5.25 (M/uL) Final Hemoglobin 02/15/2023 08:53:22 12.7 Below low normal 14 .0-16.8 (g/dL) Final HCT 02/15/2023 08:53:22 36.7 Below low normal 40. 0-48.4 (%) Final MCV 02/15/2023 08:53:22 95.3 82.0-99.5 (fL) Final MCH 02/15/2023 08:53:22 33.0 27.0-34.0 (pg) Final MCHC 02/15/2023 08:53:22 34.6 32.0-36.0 (g/dL) Final RDW 02/15/2023 08:53:22 15.9 11.5-15.5 (%) Final Platelets 02/15/2023 08:53:22 144 140-400 (K /uL) Final MPV 02/15/2023 08:53:22 9.8 6.6-11.1 ( fL) Final Performing Location LABORATORY [facility] [address] [place] [address]
--- OUTSIDE RECORDS SUMMARY | 2023-04-01 21:40 | External Medical Summary ---
Author Name Unknown Address Unknown Organization K01:[facility] [address] [facility] [address] Laboratory Report Ordering Provider Test Date Status JIN JUAN 02/17/2023 20:30:00 Final Observation Date Value Abnormality Reference (Units ) Status Color of Urine by Auto 02/17/2023 20:30:00 Yellow Colorless, Light Yellow, Yellow, Dark Yellow Final Clarity, Urine 02/17/2023 20:30:00 Clear Clear Final Glucose [Mass/volume] in Urine by Automated test strip 02/17/2023 20:30:00 50 Abnormal Negative (mg/dL) Final Bilirubin.total [Presence] in Urine by Automated test strip 02/17/2023 20:30:00 Negative Negative Final Ketones [Mass/volume] in Urine by Automated test strip 02/17/2023 20:30:00 Negative Negative (mg/dL) Final Specific gravity, Urine 02/17/2023 20:30:00 1.026 1.003-1.030 Final Hemoglobin [Presence] in Urine by Automated test strip 02/17/2023 20:30:00 Trace Abnormal Negative Final pH, Urine 02/17/2023 20:30:00 5.5 5.0-7.5 (Units) Final Protein [Mass/volume] in Urine by Automated test strip 02/17/2023 20:30:00 30 Abnormal Negative (mg/dL) Final Urobilinogen [Mass/volume] in Urine by Automated test strip 02/17/2023 20:30:00 Normal Normal (mg/dL) Final Nitrite [Presence] in Urine by Automated test strip 02/17/2023 20:30:00 Negative Negative Final Leukocyte esterase [Presence] in Urine by Automated test strip 02/17/2023 20:30:00 Moderate Abnormal Negative Final RBC, Urine 02/17/2023 20:30:00 6-9 Abnormal 0-2 (/HPF) Final WBC, Urine 02/17/2023 20:30:00 10-19 Abnormal 0-2 (/HPF) Final Bacteria [#/area] in Urine sediment by Microscopy high power field 02/17/2023 20:30:00 26-50 Abnormal 0-25 (/HPF) Final Hyaline casts, Urine 02/17/2023 20:30:00 20-29 Abnormal None (/LPF) Final Crystals.amorphous [#/area] in Urine sediment by Microscopy high power field 02/17/2023 20:30:00 Many Abnormal None (/HPF) Final Performing Location LAB[facility]ORY [facility] - [address] [facility] [address]
--- OUTSIDE RECORDS SUMMARY | 2023-04-01 21:40 | External Medical Summary ---
Author Name Unknown Address Unknown Organization K0G:[facility]ORY [facility] [address] [place] [address] Laboratory Report Ordering Provider Test Date Status JOSE HODGES 02/15/2023 08:53:22 Final Observation Date Value Abnormality Reference (Units ) Status BUN 02/15/2023 08:53:22 43 Above high normal 6-20 (mg/dL) Final Creatinine 02/15/2023 08:53:22 1.5 Above high normal 0.6-1.2 (mg/dL) Final Glomerular filtration rate/1.73 sq M.predicted [Volume Rate/Area] in Serum, Plasma or Blood by Creatinine-based formula (CKD-EPI) 02/15/2023 08:53:22 44 Below low normal >=60 (mL/min) Final eGFR is calculated based on the CKD-EPI 2020 equation SODIUM 02/15/2023 08:53:22 136 135-146 (m mol/L) Final Potassium 02/15/2023 08:53:22 4.6 3.5-5.1 (m mol/L) Final Cl 02/15/2023 08:53:22 100 98-107 (mm ol/L) Final CO2 02/15/2023 08:53:22 26 22-32 (mmo l/L) Final Anion gap 02/15/2023 08:53:22 10 7-15 (mmol /L) Final Glucose 02/15/2023 08:53:22 133 Above high normal 70 -120 (mg/dL) Final Calcium 02/15/2023 08:53:22 9.4 8.4-10.2 ( mg/dL) Final Performing Location LABORATORY [facility] [address] [place] [address]
[2023-04-02] MEDS: SODIUM CHLORIDE 0.9% 1,000 ML IV SCH ×3 (00:34→16:52)
[2023-04-02] MEDS: cefTRIAXone SODIUM 1,000 MG in DEXTROSE 5 % MINI-B 50 ML IV SCH (06:25)
--- NOTE | 2023-04-02 07:20 | XRay Report ---
XR chest 1V portable HISTORY: 87 years-old Male Hemothorax follow-up study in a patient with reported left-sided hemothor ax COMPARISON: 03/30/2023 TECHNIQUE: AP view of the chest FINDINGS: Cardiac silhouette is enlarged. Sternotomy with CABG. No pneumothorax. The right lung is clear. Small left pleural effusion with mild left basilar opacities. Numerous acute and displaced left-sided rib fractures redemonstrated. IMPRESSION: 1. Numerous acute and mildly displaced left-sided rib fractures are redemonstrated. No pneumothorax i dentified. 2. Increased size of a small left pleural effusion with progressive left basilar opacities suggestive of atelectasis. ACT 112: Negative or not required by law. The above report was generated using voice recognition software. It may contain grammatical, syntax o r spelling errors. Electronically signed by: Cain Kidd M.D. 04/02/2023 7:19 AM
[2023-04-02] MEDS: ACETAMINOPHEN 325 MG TAB PO PRN (07:34)
[2023-04-02] MEDS: CHOLECALCIFEROL 1,000 UNITS 25 MCG TAB PO SCH (07:37)
[2023-04-02] MEDS: DOCUSATE SODIUM 100 MG CAP PO SCH ×2 (07:37→20:48)
[2023-04-02] MEDS: ROSUVASTATIN CALCIUM 20 MG TAB PO SCH (07:37)
[2023-04-02] MEDS: METOPROLOL TARTRATE 25 MG TAB PO SCH (07:37)
[2023-04-02] MEDS: RANOLAZINE 500 MG ER TAB PO SCH ×2 (07:37→20:45)
[2023-04-02] MEDS: AMIODARONE 200 MG TAB PO SCH (07:37)
[2023-04-02 07:50] LABS: Basophils # (auto) 0.01 K/uL (0.00-0.20); Basophils % (auto) 0.1 %; Eosinophils # (auto) 0.08 K/uL (0.00-0.50); Eosinophils % (auto) 0.8 %; Hematocrit (blood only) 30.4 % (42.0-52.0); Hemoglobin 10.4 g/dl (14.0-18.0); Immature Granulocytes # (auto) 0.03 K/uL (0.01-0.20); Immature Granulocytes % (auto) 0.3 %; Lymphocytes # (auto) 1.56 K/uL (1.20-3.40); Lymphocytes % (auto) 15.2 %; Mean Corpuscular Hemoglobin 33.4 pg (25.0-34.0); Mean Corpuscular Hgb Conc 34.2 g/dL (32.0-36.0); Mean Corpuscular Volume 97.7 fL (80.0-100.0); Mean Platelet Volume 8.9 fL (9.4-12.4); Monocytes # (auto) 0.91 K/uL (0.11-0.59); Monocytes % (auto) 8.9 %; Neutrophils # (auto) 7.64 K/uL (1.40-6.50); Neutrophils % (auto) 74.7 %; Platelet Count 179 K/uL (130-400); RDW Coefficient of Variation 14.2 % (11.5-14.5); RDW Standard Deviation 50.1 fL (36.4-46.3); Red Blood Count 3.11 M/uL (4.70-6.10); White Blood Count 10.23 K/ul (4.8-10.8)
--- NOTE | 2023-04-02 08:08 | Urology Progress Note ---
Date of Service April 02, 2023 Assessment & Plan (1) Bladder mass: (2) Hematuria: Plan 87-year-old male who presented to the emergency department on 03/29/2023 after sustaining a fall at his snf. Work-up was notable for a CT scan which demonstrated possible bladder mass. Urology was initially consulted regarding this mass and outpatient cystoscopy was recommended. Charles catheter is draining dark red blood and was irrigated with some improvement. Opted to swap this out for a 22 Romansh three-way catheter for better irrigation and use of possible CBI. Patient was prepped and draped in a sterile fashion. Catheter was advanced without issue. 20 to 30 cc of old blood clot was aspirated out. Catheter was then irrigated with 500 cc of sterile water with removal of another 10 to 15 cc of clot. Urine was light pink. He was then placed on CBI. Wean CBI as needed. Okay for patient to have a diet today. Do not think he will need OR unless he is unable to be cleared via CBI. Patient will still need outpatient hematuria work-up. Urology to follow Admission and Anticipated Discharge Date Admission Date: March 30, 2023 Subjective Urine was dark red on examination today. Catheter was still draining. Review of Systems Constitutional: as per Subjective / HPI Gastrointestinal: as per Subjective / HPI Genitourinary: + as per Subjective / HPI Physical Exam Constitutional: no acute distress Respiratory: no respiratory distress and no labored breathing Neurologic: awake Psychiatric: Orientation: alert and cooperative Results & Data Vital Signs (Past 12 Hours) Vital Signs Temp Pulse Pulse Resp BP Pulse Ox O2 Del Method 04/02/23 07:32 36.7 C 66 18 194/83 H 98 Room Air 04/02/23 07:09 62 04/02/23 03:02 36.8 C 69 18 159/87 H 97 Room Air 04/01/23 23:39 54 L 04/01/23 23:12 36.8 C 71 18 199/91 H 99 Room Air PG Care Time/CCT Total # of Minutes Spent Total Time Spent with Patient: Total time spent is greater than 50% in coordination of care (as documented) at patient's floor/unit and/or counseling patient: Coding Level of Care Code 90518 SUB INP/OBS CARE 2/35MIN Diagnoses Bladder mass N32.89 Hematuria R31.9
[2023-04-02 08:58] LABS: BUN Creatinine Ratio 17.3 (10-20); Calcium 8.9 mg/dl (8.6-10.3); Creatinine Clr Calc Pharmacy 36.1 ml/min; Est GFR (African American) 55.7 ml/min; Est GFR (Non-African American) 48.1 ml/min; Potassium 3.6 mmol/L (3.5-5.1)
[2023-04-02] MEDS: LANTUS PER UNIT CHARGE SQ SCH (10:40)
[2023-04-02] MEDS: INSULIN ASPART PER UNIT CHARGE SC SCH ×4 (10:40→20:48)
--- NOTE | 2023-04-02 17:35 | Hospitalist Progress Note ---
Date of Service April 02, 2023 Assessment & Plan (1) Multiple falls: Plan: 87-year-old male currently living at [facility] and with past medical history significant for frequent falls, type 2 diabetes, CKD stage III, hyperlipidemia, chronic angina, CAD s/p stenting s/p CABG, paroxysmal atrial fibrillation, hypertension, enlarged aorta, neuropathy, comes because of fall and found to left rib fractures and small left hemothorax and also questionable bladder mass. 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 No pneumothorax Appreciate pulmonary input and recommendation No further intervention We will repeat chest x-ray tomorrow to document the hemothorax Chest x-ray will be done on 04/02/202304/02 repeat CXR: 1. Numerous acute and mildly displaced left-sided rib fractures are redemonstrated. No pneumothorax identified. 2. Increased size of a small left pleural effusion with progressive left basilar opacities suggestive of atelectasis. on room air chest wall pain improving Hg stable continue Incentive Spirometry Urinary bladder mass Noted to have a posterior bladder wall mass measuring 2.3 x 2.7 x 2.1 cm adjacent to prostate gland but distinct from it He has been passing urine normally Appreciate urology consult and recommendation for outpatient cystoscopy and evaluation of the mass This was discussed with the Has had urinary retention last night 03/31/2023 and required Charles insertion Will be reevaluated by the urologist 04/02 re-evaluated by Urologist, irrigation done placed on CBI outpatient Cystococopy CAD s/p stent and s/p CABG HOLD aspirin Plavix statin Chronic angina On ranolazine dose was decreased recently for hypotension KIKI on CKD stage III Presented with creatinine 1.7 Baseline creatinine seems to be around 1.5 Getting fluids Avoid nephrotoxic agents Creatinine became normalized with intravenous fluid Advised to drink more fluid and IV fluid was stopped Potassium was supplemented and kidney function has been normalized UTI ruled out Rocephin follow cultures. Urine is not infected and we will discontinue antibiotic after 3 days course Anemia Hemoglobin 9.8 Lower than recent past Check stool for Hemoccult Diabetes Hold metformin Insulin sliding scale we will monitor the blood sugars Paroxysmal atrial fibrillation On amiodarone Not on anticoagulation because of risk of anticoagulation greater than benefit as per cardio notes Can restart aspirin Plavix if the x-ray is not showing any increase in hemothorax -- resume ASA and Plavix once hematuria resolves Hypertension Currently not on medications because of falls and hypotension DVT prophylaxis SCDs Disposition med/telemetry CODE STATUS DNR/DNI as per discussion with the Case was discussed with the Admission and Anticipated Discharge Date Admission Date: March 30, 2023 Subjective ff up for fall, L rib fractures, etc seen resting in bed, sitting up comfortable Beatrice at bedside oriented x 3, poor recall of events leading up to admission states he feels fine overall today less L chest wall pain no shortness of breath, cough, sputum , fever/chills no abdominal pain, nausea no other new symptoms Review of Systems Review of Systems: all noted and negative except for above Physical Exam Physical Exam: General- oriented x 3, not in distress, speaks in sentences with no effort or accessory muscle use Eyes- anicteric Neck- no JVD Lungs- clear breath sounds bilaterally, no rales/wheezes (+) hematoma L lateral chest wall, mild tenderness Heart- normal rate, regular rhythm; no murmurs Abdomen- normal bowel sounds, nondistended, soft, nontender Extremities- no pretibial edema, no calf tenderness Neuro- alert, oriented x 3; no gross focal neurologic deficits Skin- warm & dry Results & Data Results & Data Vital Signs (Past 12 Hours) Vital Signs Temp Pulse Pulse Resp BP Pulse Ox O2 Del Method 04/02/23 15:34 58 L 04/02/23 14:45 36.6 C 60 18 159/72 H 97 Room Air 04/02/23 11:25 36.7 C 54 L 16 115/63 97 Room Air 04/02/23 07:32 36.7 C 66 18 194/83 H 98 Room Air 04/02/23 07:09 62 all noted and reviewed including below
[2023-04-03] MEDS: cefTRIAXone SODIUM 1,000 MG in DEXTROSE 5 % MINI-B 50 ML IV SCH (07:26)
--- NOTE | 2023-04-03 08:09 | Urology Progress Note ---
Date of Service April 03, 2023 Assessment & Plan (1) Bladder mass: (2) Hematuria: Plan 87-year-old male who presented to the emergency department on 03/29/2023 after sustaining a fall at his long term. Work-up was notable for a CT scan which demonstrated possible bladder mass. Urology was initially consulted regarding this mass and outpatient cystoscopy was recommended. Urology asked to reevaluate patient due to hematuria. A 22 Angolan three-way Charles catheter was placed yesterday and CBI was initiated due to gross hematuria. The catheter is currently intact and draining pink-tinged urine with CBI on slow rate. Maintain Charles catheter. Continue to wean CBI as able. Patient will still need outpatient hematuria work-up and cystoscopy. Urology to follow. Admission and Anticipated Discharge Date Admission Date: March 30, 2023 Subjective Patient examined at bedside this AM. Awake, resting in bed on arrival. No acute distress. Afebrile and hemodynamically stable. Charles catheter intact, draining pink-tinged urine with CBI on slow rate. Denies abdominal or suprapubic pain. Review of Systems Constitutional: as per Subjective / HPI Gastrointestinal: as per Subjective / HPI Genitourinary: + as per Subjective / HPI Physical Exam Constitutional: no acute distress Respiratory: no respiratory distress and no labored breathing Gastrointestinal (Abdomen): Percussion/Palpation: abdomen soft; abdomen nontender Neurologic: awake Psychiatric: Orientation: alert and cooperative Genitourinary: Charles catheter intact, draining pink-tinged urine with CBI on slow rate Results & Data Vital Signs (Past 12 Hours) Vital Signs Temp Pulse Pulse Resp BP Pulse Ox O2 Del Method 04/03/23 03:36 36.7 C 63 18 173/81 H 98 Room Air 04/02/23 23:03 36.6 C 62 18 188/78 H 97 Room Air 04/02/23 22:01 59 L PG Care Time/CCT Total # of Minutes Spent Total Time Spent with Patient: Total time spent is greater than 50% in coordination of care (as documented) at patient's floor/unit and/or counseling patient: Coding Level of Care Code 14550 SUB INP/OBS CARE 2/35MIN Diagnoses Bladder mass N32.89 Hematuria R31.9
[2023-04-03] MEDS: LANTUS PER UNIT CHARGE SQ SCH (08:56)
[2023-04-03] MEDS: INSULIN ASPART PER UNIT CHARGE SC SCH ×4 (08:56→22:03)
[2023-04-03] MEDS: CHOLECALCIFEROL 1,000 UNITS 25 MCG TAB PO SCH (08:59)
[2023-04-03] MEDS: AMIODARONE 200 MG TAB PO SCH (08:59)
[2023-04-03] MEDS: RANOLAZINE 500 MG ER TAB PO SCH ×2 (08:59→22:02)
[2023-04-03] MEDS: ROSUVASTATIN CALCIUM 20 MG TAB PO SCH (08:59)
[2023-04-03] MEDS: DOCUSATE SODIUM 100 MG CAP PO SCH ×2 (09:02→22:03)
[2023-04-03] MEDS: ACETAMINOPHEN 325 MG TAB PO PRN (22:06)
[2023-04-03] MEDS ORDERED: PHENAZOPYRIDINE HCL 100 MG TAB PO PRN (22:55)
[2023-04-03] MEDS ORDERED: traMADol HCL 50 MG TABLET PO PRN (22:56)
[2023-04-04] MEDS: amLODIPine BESYLATE 5 MG TAB PO SCH ×2 (00:02→23:13)
[2023-04-04] MEDS: cefTRIAXone SODIUM 1,000 MG in DEXTROSE 5 % MINI-B 50 ML IV SCH (06:15)
--- NOTE | 2023-04-04 08:11 | Urology Progress Note ---
Date of Service April 04, 2023 Assessment & Plan (1) Bladder mass: (2) Hematuria: Plan 87-year-old male who presented to the emergency department on 03/29/2023 after sustaining a fall [facility] his [facility]. Work-up was notable for a CT scan which demonstrated possible bladder mass. Urology was initially consulted regarding this mass and outpatient cystoscopy was recommended. Urology asked to reevaluate patient due to hematuria. A 22 Barbadian three-way Charles catheter was placed 04/02 and CBI was initiated due to gross hematuria. Attempted to stop the CBI this morning however his urine quickly returned to a light red color. Will plan to maintain Charles catheter and continue CBI slow rate for now. Can titrate CBI as needed. Okay to manually irrigate as needed for clots, retention, suprapubic pain. Suspect he may continue to have some hematuria due to the possible underlying bladder mass. Will make NPO at midnight and reassess in the morning. Urology to follow. Admission and Anticipated Discharge Date Admission Date: March 30, 2023 Subjective Patient examined at bedside this AM. Awake, sitting on bedside chair on arrival. No acute distress. Afebrile and hemodynamically stable. Charles catheter intact, draining pink-tinged urine with CBI on slow rate. Charles catheter required manual irrigation overnight due to clot retention by nursing staff. Denies abdominal or suprapubic pain. Review of Systems Constitutional: as per Subjective / HPI Gastrointestinal: as per Subjective / HPI Genitourinary: + as per Subjective / HPI Physical Exam 2 Constitutional: no acute distress Respiratory: no respiratory distress and no labored breathing Gastrointestinal (Abdomen): Percussion/Palpation: abdomen soft; abdomen nontender Neurologic: awake Psychiatric: Orientation: alert and cooperative Genitourinary: Charles intact Results & Data Vital Signs (Past 12 Hours) Vital Signs Temp Pulse Pulse Pulse Resp BP Pulse Ox 04/04/23 07:44 36.3 C L 68 14 138/82 98 04/04/23 07:39 66 04/04/23 02:44 36.3 C L 71 18 153/74 H 99 04/04/23 02:24 04/04/23 00:44 74 04/04/23 00:00 67 137/63 92 04/03/23 22:46 36.7 C 77 18 190/82 H 98 O2 Del Method 04/04/23 07:44 Room Air 04/04/23 07:39 04/04/23 02:44 Room Air 04/04/23 02:24 Room Air 04/04/23 00:44 04/04/23 00:00 Room Air 04/03/23 22:46 Room Air PG Care Time/CCT Total # of Minutes Spent Total Time Spent with Patient: Total time spent is greater than 50% in coordination of care (as documented) at patient's floor/unit and/or counseling patient: Coding Level of Care Code 20146 SUB INP/OBS CARE 2/35MIN Diagnoses Bladder mass N32.89 Hematuria R31.9
[2023-04-04] MEDS: ROSUVASTATIN CALCIUM 20 MG TAB PO SCH (08:51)
[2023-04-04] MEDS: AMIODARONE 200 MG TAB PO SCH (08:52)
[2023-04-04] MEDS: CHOLECALCIFEROL 1,000 UNITS 25 MCG TAB PO SCH (08:52)
[2023-04-04] MEDS: RANOLAZINE 500 MG ER TAB PO SCH ×2 (08:52→23:13)
[2023-04-04] MEDS: INSULIN ASPART PER UNIT CHARGE SC SCH ×4 (09:04→23:15)
[2023-04-04] MEDS: DOCUSATE SODIUM 100 MG CAP PO SCH ×2 (09:04→23:17)
[2023-04-04] MEDS: LANTUS PER UNIT CHARGE SQ SCH (09:05)
--- NOTE | 2023-04-04 17:53 | Hospitalist Progress Note ---
Date of Service April 04, 2023 Assessment & Plan (1) Multiple falls: Plan: 87-year-old male currently living at [facility] and with past medical history significant for frequent falls, type 2 diabetes, CKD stage III, hyperlipidemia, chronic angina, CAD s/p stenting s/p CABG, paroxysmal atrial fibrillation, hypertension, enlarged aorta, neuropathy, comes because of fall and found to left rib fractures and small left hemothorax and also questionable bladder mass. 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 No pneumothorax Appreciate pulmonary input and recommendation No further intervention We will repeat chest x-ray tomorrow to document the hemothorax Chest x-ray will be done on 04/02/202304/02 repeat CXR: 1. Numerous acute and mildly displaced left-sided rib fractures are redemonstrated. No pneumothorax identified. 2. Increased size of a small left pleural effusion with progressive left basilar opacities suggestive of atelectasis. on room air chest wall pain improving Hg stable continue Incentive Spirometry 04/04 stable overall continue PT/OT Urinary bladder mass Noted to have a posterior bladder wall mass measuring 2.3 x 2.7 x 2.1 cm adjacent to prostate gland but distinct from it He has been passing urine normally Appreciate urology consult and recommendation for outpatient cystoscopy and evaluation of the mass This was discussed with the Has had urinary retention last night 03/31/2023 and required Charles insertion Will be reevaluated by the urologist 04/02 re-evaluated by Urologist, irrigation done placed on CBI outpatient Cystococopy 04/04 continue bladder irrigation discussed with Urology CAD s/p stent and s/p CABG HOLD aspirin Plavix statin Chronic angina On ranolazine dose was decreased recently for hypotension KIKI on CKD stage III Presented with creatinine 1.7 Baseline creatinine seems to be around 1.5 Getting fluids Avoid nephrotoxic agents Creatinine became normalized with intravenous fluid Advised to drink more fluid and IV fluid was stopped Potassium was supplemented and kidney function has been normalized UTI ruled out Rocephin follow cultures. Urine is not infected and we will discontinue antibiotic after 3 days course Anemia Hemoglobin 10.4 Diabetes Hold metformin Insulin sliding scale we will monitor the blood sugars Paroxysmal atrial fibrillation On amiodarone Not on anticoagulation because of risk of anticoagulation greater than benefit as per cardio notes Can restart aspirin Plavix if the x-ray is not showing any increase in hemothorax -- resume ASA and Plavix once hematuria resolves Hypertension Currently not on medications because of falls and hypotension DVT prophylaxis SCDs Disposition med/telemetry CODE STATUS DNR/DNI as per discussion with the Case was discussed with the Admission and Anticipated Discharge Date Admission Date: March 30, 2023 Subjective ff up for fall, left rib fx, etc seen resting in chair, comfortable Beatrice at bedside in good spirits states he continues to feel improved no chest pain no abdominal pain strength seems to be improving (+) clot in the Charles cath last night Review of Systems Review of Systems: all noted and negative except for above Physical Exam Physical Exam: General- oriented x 3, not in distress, speaks in sentences with no effort or accessory muscle use Eyes- anicteric Neck- no JVD Lungs- clear breath sounds bilaterally, no rales/wheezes Heart- normal rate, regular rhythm; no murmurs Abdomen- normal bowel sounds, nondistended, soft, nontender Extremities- no pretibial edema, no calf tenderness Charles cath- pink tinged urine Neuro- alert, oriented x 3; no gross focal neurologic deficits Skin- warm & dry Results & Data Results & Data Vital Signs (Past 12 Hours) Vital Signs Temp Pulse Pulse Resp BP Pulse Ox O2 Del Method 04/04/23 15:52 69 04/04/23 13:09 36.9 C 64 16 136/98 93 Room Air 04/04/23 12:26 Room Air 04/04/23 07:44 36.3 C L 68 14 138/82 98 Room Air 04/04/23 07:39 66 all noted and reviewed including below
[2023-04-05 05:49] LABS: Basophils # (auto) 0.03 K/uL (0.00-0.20); Basophils % (auto) 0.3 %; Eosinophils # (auto) 0.08 K/uL (0.00-0.50); Eosinophils % (auto) 0.9 %; Hemoglobin 9.7 g/dl (14.0-18.0); Immature Granulocytes # (auto) 0.06 K/uL (0.01-0.20); Immature Granulocytes % (auto) 0.7 %; Mean Corpuscular Hemoglobin 33.6 pg (25.0-34.0); Mean Corpuscular Hgb Conc 34.6 g/dL (32.0-36.0); Mean Corpuscular Volume 96.9 fL (80.0-100.0); Mean Platelet Volume 8.7 fL (9.4-12.4); Monocytes # (auto) 0.83 K/uL (0.11-0.59); Monocytes % (auto) 9.3 %; Neutrophils # (auto) 6.26 K/uL (1.40-6.50); Neutrophils % (auto) 69.8 %; Platelet Count 189 K/uL (130-400); RDW Coefficient of Variation 14.2 % (11.5-14.5); RDW Standard Deviation 49.3 fL (36.4-46.3); Red Blood Count 2.89 M/uL (4.70-6.10); White Blood Count 8.96 K/ul (4.8-10.8)
[2023-04-05 06:47] LABS: Calcium 9.1 mg/dl (8.6-10.3); Potassium 4.1 mmol/L (3.5-5.1)
[2023-04-05 06:53] LABS: BUN Creatinine Ratio 20.5 (10-20); Est GFR (African American) 49.8 ml/min; Est GFR (Non-African American) 42.9 ml/min
[2023-04-05] MEDS: AMIODARONE 200 MG TAB PO SCH (07:46)
[2023-04-05] MEDS: CHOLECALCIFEROL 1,000 UNITS 25 MCG TAB PO SCH (07:46)
[2023-04-05] MEDS: ROSUVASTATIN CALCIUM 20 MG TAB PO SCH (07:46)
[2023-04-05] MEDS: RANOLAZINE 500 MG ER TAB PO SCH ×2 (07:46→19:41)
[2023-04-05] MEDS: DOCUSATE SODIUM 100 MG CAP PO SCH ×2 (07:48→19:40)
[2023-04-05] MEDS: INSULIN ASPART PER UNIT CHARGE SC SCH ×4 (09:13→20:56)
[2023-04-05] MEDS: LANTUS PER UNIT CHARGE SQ SCH (09:14)
--- NOTE | 2023-04-05 10:11 | Urology Progress Note ---
Date of Service April 05, 2023 Assessment & Plan (1) Hematuria: Plan: Hematuria likely from bladder mass plus or minus anticoagulation/antiplatelet therapy Urine now clear We will feed him now If possible, would still prefer to do outpatient surgery but we will continue to monitor closely From a urology standpoint, if stable for discharge home, it is reasonable to offer a voiding trial and discharge homewe will defer the timing of this to the medical team Admission and Anticipated Discharge Date Admission Date: March 30, 2023 Subjective Patient feeling well this morning Denies any subjective complaints aside from hunger CBI running at a extremely slow rate and urine is clear through the tubing Physical Exam Physical Exam: CBI at a very slow rate with very clear urine throughout the tubing, some dark- colored urine within the bag but no active bleeding perceived Abdomen soft, nontender, no suprapubic tenderness Results & Data Vital Signs (Past 12 Hours) Vital Signs Temp Pulse Pulse Resp BP BP Pulse Ox 04/05/23 08:37 04/05/23 07:25 75 04/05/23 07:15 36.7 C 75 17 194/84 H 96 04/05/23 03:31 36.4 C L 73 18 158/77 H 97 04/05/23 02:50 04/04/23 23:25 37.0 C 83 20 184/85 H 97 O2 Del Method 04/05/23 08:37 Room Air 04/05/23 07:25 04/05/23 07:15 Room Air 04/05/23 03:31 Room Air 04/05/23 02:50 Room Air 04/04/23 23:25 Room Air PG Care Time/CCT Total # of Minutes Spent Total Time Spent with Patient: Total time spent is greater than 50% in coordination of care (as documented) at patient's floor/unit and/or counseling patient: Coding Level of Care Code 36399 SUB INP/OBS CARE 2/35MIN Diagnoses Hematuria R31.9
--- NOTE | 2023-04-05 11:30 | XRay Report ---
SINGLE VIEW CHEST CLINICAL HISTORY: Follow-up hemothorax. FINDINGS: An AP, portable, upright chest radiograph is compared to study dated 04/02/2023 and correla mark with chest CT dated 03/29/2023. The patient is status post midline sternotomy. The heart is enlar ged noting atherosclerotic calcification of the thoracic aorta. The pulmonary vasculature is nonconge sted. Chronic interstitial thickening is similar to previous. Left pleural fluid with left basilar co nsolidation is similar to previous. This likely corresponds to hemothorax when correlated with the pr ior chest CT. Scarring/atelectasis is noted at the right lung base. No pneumothorax is seen. The skel etal structures are osteopenic. Displaced left-sided rib fractures are again noted. Arthritic change is noted in the humeral heads. Superior subluxation of both humeral heads suggests chronic rotator cu ff injuries. IMPRESSION: 1. Left-sided hemothorax with associated left basilar consolidation is similar to previous. 2. Acute displaced left-sided rib fractures are again noted. 3. The right lung appears clear. 4. Cardiomegaly without radiographic evidence of congestive failure. ACT 112: Negative or not required by law. Electronically signed by: Luc Johnson M.D. 04/05/2023 11:27 AM
[2023-04-05] MEDS ORDERED: PHARMACY GLYCEMIC MGMT CONSULT PRN (11:49)
[2023-04-05] MEDS ORDERED: LANTUS PER UNIT CHARGE SQ SCH (12:30)
--- NOTE | 2023-04-05 15:01 | Pharmacy Report ---
Pharmacy Glycemic Short Note 2 - Date of Service April 05, 2023 - Glycemic Short BSG Results (Last 24 hours): 04/04/23 04/04/23 04/05/23 17:23 20:28 05:29 Glucose 177 H POC Glucose 176 H 128 H 04/05/23 04/05/23 08:32 12:31 Glucose POC Glucose 192 H 271 H OUTPATIENT ANTIDIABETIC REGIMEN: * Lantus 25 units SC AM * Metformin 1 g PO AM + 500 mg PO PM * HbA1c: 8.3% (03/30/23) ASSESSMENT: * 87 yo M admitted on 03/30/23 secondary to hemothorax. Pharmacy has been consulted to assist with inpatient glycemic management. Patient is a Type 2 diabetic as an outpatient. Please refer to outpatient regimen and most recent HbA1c above. * BSGs have been elevated over last 48 hours prompting consult today: [phone] mg/dL. * Fasting BSG was 192 mg/dL this AM and lunchtime was 291 mg/dL. Patient was NPO this AM for possible procedure but now ordered and tolerating a T2DM diet. * Will increase basal by 25% and give dose now. Tightening bolus regimen as well. Will tighten goal range. PLAN FOR INPATIENT GLYCEMIC CONTROL: * Hold outpatient oral diabetes medications * Basal insulin * Lantus 30 units SC daily * Bolus insulin * NovoLog per scale ACHS or Q6hrs while NPO * Goal Range: Low 110 mg/dL - High 140 mg/dL * Correction Factor: 20 mg/dL/unit * Nutritional / Prandial insulin per carb ratio of 1 unit per 7 grams CHO consumed
--- NOTE | 2023-04-05 18:58 | Hospitalist Progress Note ---
Date of Service April 05, 2023 Assessment & Plan (1) Multiple falls: Plan: 87-year-old male currently living at [facility] and with past medical history significant for frequent falls, type 2 diabetes, CKD stage III, hyperlipidemia, chronic angina, CAD s/p stenting s/p CABG, paroxysmal atrial fibrillation, hypertension, enlarged aorta, neuropathy, comes because of fall and found to left rib fractures and small left hemothorax and also questionable bladder mass. 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 Denies any significant symptoms at rest We will get PT and OT evaluation and will need placement Remains pleasantly confused and occasionally agitated and requiring mittens as he is trying to take medical lines out Otherwise not aggressive Multiple left ribs fracture with small hemothorax Imaging studies showed displaced left lateral fourth through seventh rib fractures and not displaced left eighth rib fracture And also small left hemothorax. No pneumothorax Appreciate pulmonary input and recommendation No further intervention We will repeat chest x-ray tomorrow to document the hemothorax Chest x-ray will be done on 04/02/202304/02 repeat CXR: 1. Numerous acute and mildly displaced left-sided rib fractures are redemonstrated. No pneumothorax identified. 2. Increased size of a small left pleural effusion with progressive left basilar opacities suggestive of atelectasis. on room air chest wall pain improving Hg stable continue Incentive Spirometry 04/04 stable overall continue PT/OT 04/05 Stable Denies left rib pain Chest x-ray stable Continue PT and OT Urinary bladder mass Noted to have a posterior bladder wall mass measuring 2.3 x 2.7 x 2.1 cm adjacent to prostate gland but distinct from it He has been passing urine normally Appreciate urology consult and recommendation for outpatient cystoscopy and evaluation of the mass This was discussed with the Has had urinary retention last night 03/31/2023 and required Charles insertion Will be reevaluated by the urologist 04/02 re-evaluated by Urologist, irrigation done placed on CBI outpatient Cystococopy 04/04 continue bladder irrigation discussed with Urology 04/05 Hematuria resolved Charles catheter removed Trial of voiding CAD s/p stent and s/p CABG HOLD aspirin Plavix x1 to 2 days statin Chronic angina On ranolazine dose was decreased recently for hypotension KIKI on CKD stage III Presented with creatinine 1.7 Baseline creatinine seems to be around 1.5 Getting fluids Avoid nephrotoxic agents Creatinine became normalized with intravenous fluid Advised to drink more fluid and IV fluid was stopped Potassium was supplemented and kidney function has been normalized UTI ruled out Rocephin follow cultures. Urine is not infected and we will discontinue antibiotic after 3 days course Anemia Hemoglobin 10.4 Diabetes Hold metformin Insulin sliding scale Pharmacy glycemic control consult placed Paroxysmal atrial fibrillation On amiodarone Not on anticoagulation because of risk of anticoagulation greater than benefit as per cardio notes Can restart aspirin Plavix if the x-ray is not showing any increase in hemothorax -- resume ASA and Plavix once hematuria resolves likely 1 to 2 days Hypertension Currently not on medications because of falls and hypotension DVT prophylaxis SCDs Disposition pending Possible return [facility] Friday when medically stable CODE STATUS DNR/DNI as per discussion with the Case was discussed with the Admission and Anticipated Discharge Date Admission Date: March 30, 2023 Subjective Follow-up for fall, left rib fractures, etc. Seen resting in chair, comfortable, not in distress Denies left rib pain, no problems with breathing No abdominal pain, fevers or chills No other new symptom Review of Systems Review of Systems: all noted and negative except for above Physical Exam Physical Exam: General- oriented x 3, not in distress, speaks in sentences with no effort or accessory muscle use Eyes- anicteric Neck- no JVD Lungs- clear breath sounds bilaterally, no rales/wheezes Heart- normal rate, regular rhythm; no murmurs Abdomen- normal bowel sounds, nondistended, soft, nontender Extremities- no pretibial edema, no calf tenderness Charles catheter in place: Draining yellow urine Neuro- alert, oriented x 3; no gross focal neurologic deficits Skin- warm & dry Results & Data Results & Data Vital Signs (Past 12 Hours) Vital Signs Temp Pulse Pulse Resp BP BP Pulse Ox 04/05/23 15:28 36.3 C L 63 14 147/74 H 96 04/05/23 15:22 67 04/05/23 11:25 36.3 C L 70 16 112/69 98 04/05/23 08:37 04/05/23 07:25 75 04/05/23 07:15 36.7 C 75 17 194/84 H 96 O2 Del Method 04/05/23 15:28 Room Air 04/05/23 15:22 04/05/23 11:25 Room Air 04/05/23 08:37 Room Air 04/05/23 07:25 04/05/23 07:15 Room Air all noted and reviewed including below
[2023-04-05] MEDS: amLODIPine BESYLATE 5 MG TAB PO SCH (19:41)
[2023-04-06] MEDS: AMIODARONE 200 MG TAB PO SCH (08:00)
[2023-04-06] MEDS: RANOLAZINE 500 MG ER TAB PO SCH ×2 (08:00→19:05)
[2023-04-06] MEDS: CHOLECALCIFEROL 1,000 UNITS 25 MCG TAB PO SCH (08:01)
[2023-04-06] MEDS: ROSUVASTATIN CALCIUM 20 MG TAB PO SCH (08:01)
[2023-04-06] MEDS: DOCUSATE SODIUM 100 MG CAP PO SCH ×2 (08:03→19:05)
[2023-04-06] MEDS: INSULIN ASPART PER UNIT CHARGE SC SCH ×4 (08:54→21:48)
[2023-04-06] MEDS ORDERED: LANTUS PER UNIT CHARGE SQ SCH (09:00)
--- NOTE | 2023-04-06 09:52 | Urology Progress Note ---
Date of Service April 06, 2023 Assessment & Plan (1) Hematuria: (2) Bladder mass: Plan Bladder masssuspected TCC Intermittent hematuria He is now catheter free which I think is actually best for him Stable from a standpoint for discharge home, deferred discharge planning, however, to the primary team He does absolutely require outpatient follow-up to discuss surgical intervention for his tumor Admission and Anticipated Discharge Date Admission Date: March 30, 2023 Subjective Catheter removed yesterday Voiding via a condom catheter but has had a substantial amount of urine output and it is predominantly clear with some small old clot Overall seems to be doing relatively well and is seems anxious to go home although I think he is still somewhat confused Vitals are stable Denies any subjective complaints to me today Physical Exam Physical Exam: Urine draining through the condom catheter is relatively clear with some small old clot Constitutional: well developed and well nourished Respiratory: no respiratory distress Cardiovascular: Extremities: no pedal edema Gastrointestinal (Abdomen): Inspection/Auscultation: abdomen normal to inspection Results & Data Vital Signs (Past 12 Hours) Vital Signs Temp Pulse Pulse Resp BP Pulse Ox O2 Del Method 04/06/23 07:30 36.4 C L 63 20 139/68 98 Room Air 04/06/23 07:16 Room Air 04/06/23 06:59 70 04/06/23 04:15 Room Air 04/06/23 02:59 37 C 64 18 171/89 H 96 Room Air 04/05/23 23:19 36.9 C 70 20 200/87 H 96 Room Air 04/05/23 22:31 65 PG Care Time/CCT Total # of Minutes Spent Total Time Spent with Patient: Total time spent is greater than 50% in coordination of care (as documented) at patient's floor/unit and/or counseling patient: Coding Level of Care Code 38939 SUB INP/OBS CARE 2/35MIN Diagnoses Hematuria R31.9 Bladder mass N32.89
--- NOTE | 2023-04-06 10:26 | Pharmacy Report ---
Pharmacy Glycemic Short Note 2 - Date of Service April 06, 2023 - Glycemic Short BSG Results (Last 24 hours): 04/05/23 04/05/23 04/05/23 12:31 17:22 20:09 POC Glucose 271 H 281 H 218 H 04/06/23 08:16 POC Glucose 151 H OUTPATIENT ANTIDIABETIC REGIMEN: * Lantus 25 units SC AM * Metformin 1 g PO AM + 500 mg PO PM * HbA1c: 8.3% (03/30/23) ASSESSMENT: 04/06: * Patient received 52 units of insulin yesterday, 25 basal + 27 bolus. BSGs were: [phone] mg/dL. * Fasting BSG continues to improve, down to 151 mg/dL. Will reduce basal to home dose today. * Despite tightening bolus parameters yesterday, BSGs were still well above goal range. Therefore, will tighten bolus regimen further today. 04/05: * 87 yo M admitted on 03/30/23 secondary to hemothorax. Pharmacy has been consulted to assist with inpatient glycemic management. Patient is a Type 2 diabetic as an outpatient. Please refer to outpatient regimen and most recent HbA1c above. * BSGs have been elevated over last 48 hours prompting consult today: [phone] mg/dL. * Fasting BSG was 192 mg/dL this AM and lunchtime was 291 mg/dL. Patient was NPO this AM for possible procedure but now ordered and tolerating a T2DM diet. * Will increase basal by 25% and give dose now. Tightening bolus regimen as well. Will tighten goal range. PLAN FOR INPATIENT GLYCEMIC CONTROL: * Hold outpatient oral diabetes medications * Basal insulin * Lantus 25 units SC daily * Bolus insulin * NovoLog per scale ACHS or Q6hrs while NPO * Goal Range: Low 110 mg/dL - High 140 mg/dL * Correction Factor: 15 mg/dL/unit * Nutritional / Prandial insulin per carb ratio of 1 unit per 5 grams CHO consumed
--- NOTE | 2023-04-06 16:46 | Hospitalist Progress Note ---
Date of Service April 06, 2023 Assessment & Plan (1) Multiple falls: Plan: 87-year-old male currently living at [facility] and with past medical history significant for frequent falls, type 2 diabetes, CKD stage III, hyperlipidemia, chronic angina, CAD s/p stenting s/p CABG, paroxysmal atrial fibrillation, hypertension, enlarged aorta, neuropathy, comes because of fall and found to left rib fractures and small left hemothorax and also questionable bladder mass. 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 No pneumothorax Appreciate pulmonary input and recommendation No further intervention We will repeat chest x-ray tomorrow to document the hemothorax Chest x-ray will be done on 04/02/202304/02 repeat CXR: 1. Numerous acute and mildly displaced left-sided rib fractures are redemonstrated. No pneumothorax identified. 2. Increased size of a small left pleural effusion with progressive left basilar opacities suggestive of atelectasis. 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 but distinct from it He has been passing urine normally Appreciate urology consult and recommendation for outpatient cystoscopy and evaluation of the mass This was discussed with the Has had urinary retention last night 03/31/2023 and required Charles insertion Will be reevaluated by the urologist 04/02 re-evaluated by Urologist, irrigation done placed on CBI outpatient Cystococopy 04/04 continue bladder irrigation discussed with Urology 04/05 Hematuria resolved Charles catheter removed Trial of voiding 04/06 voiding well remove condom cath tomorrow CAD s/p stent and s/p CABG HOLD aspirin Plavix x1 to 2 days statin Chronic angina On ranolazine dose was decreased recently for hypotension KIKI on CKD stage III Presented with creatinine 1.7 Baseline creatinine seems to be around 1.5 Getting fluids Avoid nephrotoxic agents Creatinine became normalized with intravenous fluid Advised to drink more fluid and IV fluid was stopped Potassium was supplemented and kidney function has been normalized UTI ruled out Rocephin follow cultures. Urine is not infected and we will discontinue antibiotic after 3 days course Anemia Hemoglobin 10.4 Diabetes Hold metformin Insulin sliding scale Pharmacy glycemic control consult placed Paroxysmal atrial fibrillation On amiodarone Not on anticoagulation because of risk of anticoagulation greater than benefit as per cardio notes Can restart aspirin Plavix if the x-ray is not showing any increase in hemothorax -- resume ASA and Plavix tomorrow if urine remains clear Hypertension Currently not on medications because of falls and hypotension DVT prophylaxis SCDs Disposition pending Possible return to [facility] on Friday when medically stable CODE STATUS DNR/DNI as per discussion with the Case was discussed with the Admission and Anticipated Discharge Date Admission Date: March 30, 2023 Subjective ff up for fall, L rib fractures, etc seen resting in bed, sleeping but easily awakened states he feels fine overall denies rib pain voiding with no problems no hematuria no other new symptoms Review of Systems Review of Systems: all noted and negative except for above Physical Exam Physical Exam: General- oriented x 3, not in distress, speaks in sentences with no effort or accessory muscle use Eyes- anicteric Neck- no JVD Lungs- clear breath sounds bilaterally Heart- normal rate, regular rhythm; no murmurs Abdomen- normal bowel sounds, nondistended, soft, nontender Extremities- no pretibial edema, no calf tenderness Neuro- alert, oriented x 3; no gross focal neurologic deficits Skin- warm & dry Results & Data Results & Data Vital Signs (Past 12 Hours) Vital Signs Temp Pulse Pulse Resp BP Pulse Ox O2 Del Method 04/06/23 12:00 36.4 C L 68 20 102/61 99 Room Air 04/06/23 07:30 36.4 C L 63 20 139/68 98 Room Air 04/06/23 07:16 Room Air 04/06/23 06:59 70 all noted and reviewed including below
[2023-04-06] MEDS: amLODIPine BESYLATE 5 MG TAB PO SCH (19:05)
[2023-04-07] MEDS: ROSUVASTATIN CALCIUM 20 MG TAB PO SCH (08:01)
[2023-04-07] MEDS: RANOLAZINE 500 MG ER TAB PO SCH (08:01)
[2023-04-07] MEDS: CHOLECALCIFEROL 1,000 UNITS 25 MCG TAB PO SCH (08:01)
[2023-04-07] MEDS: AMIODARONE 200 MG TAB PO SCH (08:01)
[2023-04-07] MEDS: DOCUSATE SODIUM 100 MG CAP PO SCH (08:03)
[2023-04-07] MEDS: INSULIN ASPART PER UNIT CHARGE SC SCH ×2 (08:35→12:35)
[2023-04-07] MEDS ORDERED: LANTUS PER UNIT CHARGE SQ SCH (09:00)
--- NOTE | 2023-04-07 14:38 | Pharmacy Report ---
Pharmacy Glycemic Short Note 2 - Date of Service April 07, 2023 - Glycemic Short BSG Results (Last 24 hours): 04/06/23 04/06/23 04/07/23 17:17 21:25 08:06 POC Glucose 116 H 125 H 87 04/07/23 12:13 POC Glucose 120 H OUTPATIENT ANTIDIABETIC REGIMEN: * Lantus 25 units SC AM * Metformin 1 g PO AM + 500 mg PO PM * HbA1c: 8.3% (03/30/23) ASSESSMENT: 04/07: * Patient received total of 68 units of insulin yesterday, of which 25 units were basal insulin * Fasting BSG trending down to 87 mg/dL - therefore, will scale back slightly on basal insulin * No change to CF/CR * Discussed with provider and considering adding novolog SSI insulin to regimen on discharge to help improve blood sugars 04/06: * Patient received 52 units of insulin yesterday, 25 basal + 27 bolus. BSGs were: [phone] mg/dL. * Fasting BSG continues to improve, down to 151 mg/dL. Will reduce basal to home dose today. * Despite tightening bolus parameters yesterday, BSGs were still well above goal range. Therefore, will tighten bolus regimen further today. 04/05: * 87 yo M admitted on 03/30/23 secondary to hemothorax. Pharmacy has been consulted to assist with inpatient glycemic management. Patient is a Type 2 diabetic as an outpatient. Please refer to outpatient regimen and most recent HbA1c above. * BSGs have been elevated over last 48 hours prompting consult today: [phone] mg/dL. * Fasting BSG was 192 mg/dL this AM and lunchtime was 291 mg/dL. Patient was NPO this AM for possible procedure but now ordered and tolerating a T2DM diet. * Will increase basal by 25% and give dose now. Tightening bolus regimen as well. Will tighten goal range. PLAN FOR INPATIENT GLYCEMIC CONTROL: * Hold outpatient oral diabetes medications * Basal insulin * Lantus 18 units SC daily * Bolus insulin * NovoLog per scale ACHS or Q6hrs while NPO * Goal Range: Low 110 mg/dL - High 140 mg/dL * Correction Factor: 15 mg/dL/unit * Nutritional / Prandial insulin per carb ratio of 1 unit per 5 grams CHO consumed
--- NOTE | 2023-04-07 15:05 | Hospitalist Progress Note ---
Date of Service April 07, 2023 Assessment & Plan (1) Multiple falls: Plan: 87-year-old male currently living at [facility] and with past medical history significant for frequent falls, type 2 diabetes, CKD stage III, hyperlipidemia, chronic angina, CAD s/p stenting s/p CABG, paroxysmal atrial fibrillation, hypertension, enlarged aorta, neuropathy, comes because of fall and found to left rib fractures and small left hemothorax and also questionable bladder mass. 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 Cal Doherty for further work-up of bladder mass Resume aspirin and Plavix tomorrow Monitor closely for hematuria CAD S/P STENT AND S/P CABG No cardiac symptoms, continue aspirin, Plavix, statin Chronic angina On ranolazine dose was decreased recently for hypotension KIKI on CKD stage III Presented with creatinine 1.7 Baseline creatinine seems to be around 1.5 Resolved Anemia Hemoglobin 10.4 Diabetes Continue Lantus and metformin Regarding hyperglycemia which leads to falls, patient will need insulin sliding scale before meals as follows * NovoLog per scale AC * Goal Range: Low 140 mg/dL - High 180 mg/dL * Correction Factor: 25 mg/dL/unit * Nutritional / Prandial insulin per carb ratio : None * Paroxysmal atrial fibrillation On amiodarone Not on anticoagulation because of risk of anticoagulation greater than benefit as per cardio notes Resume aspirin and Plavix Hypertension Currently not on medications because of falls and hypotension DVT prophylaxis SCDs Disposition return to [facility] Follow-up with PCP in 1 week CODE STATUS DNR/DNI as per discussion with the plan of care discussed with patient, his at the bedside, and his daughter Letitia over the phone in detail and at length all questions answered They are understanding, agreeable, comfortable with the plan of care Admission and Anticipated Discharge Date Admission Date: March 30, 2023 Subjective Follow-up for left-sided rib fractures, etc. Seen resting in bed, comfortable, not in distress States he feels fine overall Denies left-sided chest wall, rib pain No problems with breathing No cough, fevers or chills Also voiding with no problems, clear urine, no hematuria No abdominal pain, nausea vomiting No other new symptoms Review of Systems Review of Systems: all noted and negative except for above Physical Exam Physical Exam: General- oriented x 3, not in distress, speaks in sentences with no effort or accessory muscle use Eyes- anicteric Neck- no JVD Lungs- clear breath sounds bilaterally, no rales/wheezes Heart- normal rate, regular rhythm; no murmurs Abdomen- normal bowel sounds, nondistended, soft, nontender Extremities- no pretibial edema, no calf tenderness Neuro- alert, oriented x 3; no gross focal neurologic deficits Skin- warm & dry Results & Data Results & Data Vital Signs (Past 12 Hours) Vital Signs Temp Pulse Resp BP Pulse Ox O2 Del Method 04/07/23 11:29 36.4 C L 63 20 131/68 96 Room Air 04/07/23 07:35 36.6 C 81 20 161/74 H 94 Room Air 04/07/23 07:24 Room Air 04/07/23 04:39 36.6 C 60 18 143/71 H 97 Room Air 04/07/23 04:29 Room Air all noted and reviewed including below
--- NOTE | 2023-04-07 15:12 | Discharge Summary ---
Discharge Summary Date of Service April 07, 2023 Notes For Next Care Provider Medication Changes From Visit Regarding hyperglycemia which leads to falls, patient will need insulin sliding scale before meals as follows * NovoLog per scale AC * Goal Range: Low 140 mg/dL - High 180 mg/dL * Correction Factor: 25 mg/dL/unit * Nutritional / Prandial insulin per carb ratio : None Amlodipine 2.5 mg at bedtime for blood pressure control Admission HPI Per Admitting Provider 87-year-old male currently living at [facility] and with past medical history significant for frequent falls, type 2 diabetes, CKD stage III, hyperlipidemia, chronic angina, CAD s/p stenting s/p CABG, paroxysmal atrial fibrillation, hypertension, enlarged aorta, neuropathy, comes because of fall and found to left rib fractures and small left hemothorax and also questionable bladder mass. Since July patient been falling frequently. Ambulates with walker. As per he was brought into the hospital today as per snf rule to be seen by doctor after fall. Patient complains of pain in the left rib fracture site. Has some pain while taking deep breath. States he did not hit his head and no loss of consciousness when he fell. thinks that the rib fractures are from the fall from earlier in the week. Denies any headache. No blurred visions. No runny nose or sore throat. No cough. Appetite is okay. Afebrile. Currently no shortness of breath. No n ausea. No abdominal pain. Normal bowel and bladder movements. Saw PCP on March 26 for fall and at that time was found to have low blood pressure. Seems PCP notified cardiology about hypotension and ranolazine dose was reduced to 500 mg twice daily and was advised compresses stockings to keep in a.m. and remove in p.m. Past medical history. As mentioned above. Past surgical history. CABG. Left heart catheterization. Colonoscopy. Appendectomy. Social history. . Quit smoking 1984. Smoked half pack a day for 5 years. Alcohol rare. No drug use. Family history. Father had heart disorder. Alzheimer's. Mother had stroke. Admission Exam Per Admitting Provider General- Not in distress Head- atraumatic Eyes- PERRL. ENT- oropharynx clear Neck- supple, no JVD. Lungs- clear to auscultation , no wheezing or crackles. Heart- regular rhythm; no murmur, no gallop. Abdomen- normal bowel sounds, soft, nontender, no distension. Extremities- no pretibial edema, no erythema seen. Neuro- alert, oriented ; PERRL, no facial palsy; no dysarthria; moves extremities. Skin- warm & dry Principal Dx & Hospital Course #1 = Principal Diagnosis (1) Multiple falls: 87-year-old male currently living at [facility] and with past medical history significant for frequent falls, type 2 diabetes, CKD stage III, hyperlipidemia, chronic angina, CAD s/p stenting s/p CABG, paroxysmal atrial fibrillation, hypertension, enlarged aorta, neuropathy, comes because of fall and found to left rib fractures and small left hemothorax and also questionable bladder mass. 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 Cal Doherty for further work-up of bladder mass Resume aspirin and Plavix tomorrow Monitor closely for hematuria CAD S/P STENT AND S/P CABG No cardiac symptoms, continue aspirin, Plavix, statin Chronic angina On ranolazine dose was decreased recently for hypotension KIKI on CKD stage III Presented with creatinine 1.7 Baseline creatinine seems to be around 1.5 Resolved Anemia Hemoglobin 10.4 Diabetes Continue Lantus and metformin Regarding hyperglycemia which leads to falls, patient will need insulin sliding scale before meals as follows * NovoLog per scale AC * Goal Range: Low 140 mg/dL - High 180 mg/dL * Correction Factor: 25 mg/dL/unit * Nutritional / Prandial insulin per carb ratio : None * Paroxysmal atrial fibrillation On amiodarone Not on anticoagulation because of risk of anticoagulation greater than benefit as per cardio notes Resume aspirin and Plavix Hypertension Amlodipine 2.5 mg p.o. at at bedtime for blood pressure control Monitor closely DVT prophylaxis SCDs Disposition return to [facility] Follow-up with PCP in 1 week CODE STATUS DNR/DNI as per discussion with the plan of care discussed with patient, his at the bedside, and his daughter Letitia over the phone in detail and at length all questions answered They are understanding, agreeable, comfortable with the plan of care Discharge Exam General- oriented x 3, not in distress, speaks in sentences with no effort or accessory muscle use Eyes- anicteric Neck- no JVD Lungs- clear breath sounds bilaterally, no rales/wheezes Heart- normal rate, regular rhythm; no murmurs Abdomen- normal bowel sounds, nondistended, soft, nontender Extremities- no pretibial edema, no calf tenderness Neuro- alert, oriented x 3; no gross focal neurologic deficits Skin- warm & dry Updated Medication List Medication Instructions Recorded Confirmed Type insulin glargine 100 unit/mL (3 25 unit subcut QAM 09/23/22 03/29/23 History mL) subcutaneous pen (Lantus Solostar U-100 Insulin) metformin 500 mg tablet,extended See Rx Instructions .Route .COMPLEX 09/23/22 03/29/23 History release 24 hr amiodarone 200 mg tablet 200 mg PO QAM 11/27/22 03/29/23 History aspirin 81 mg tablet,delayed 81 mg PO DAILY 11/27/22 03/29/23 History release clopidogrel 75 mg tablet 75 mg PO DAILY 11/27/22 03/29/23 History rosuvastatin 20 mg tablet 20 mg PO DAILY 11/27/22 03/29/23 History cholecalciferol (vitamin D3) 50 50 mcg PO QAM 02/10/23 03/29/23 History mcg (2,000 unit) tablet (Vitamin D3) bisacodyl 10 mg rectal suppository 10 mg AL DAILY PRN Constipation 03/29/23 03/29/23 History docusate sodium 100 mg capsule 100 mg PO BID 03/29/23 03/29/23 History magnesium hydroxide 400 mg/5 mL 30 ml PO DAILY PRN Constipation 03/29/23 03/29/23 History oral suspension (Milk of Magnesia) ondansetron 4 mg disintegrating 4 mg PO Q4H PRN NAUSEA/VOMITING 03/29/23 03/29/23 History tablet polyethylene glycol 3350 17 17 g PO QDL PRN Constipation 03/29/23 03/29/23 History gram/dose oral powder (Miralax) ranolazine 500 mg tablet,extended 500 mg PO BID 03/29/23 03/29/23 History release,12 hr sodium phosphates 19 gram-7 118 ml AL DAILY PRN Constipation 03/29/23 03/29/23 History gram/118 mL enema (Fleet Enema) zinc oxide 12 % topical cream 1 applic topical TID PRN Skin 03/29/23 03/29/23 History ([place] Protect (zinc oxide)) Irritation amlodipine 5 mg tablet (Norvasc) 2.5 mg (1/2 x 5 mg) PO HS 30 days 04/07/23 Rx #15 tabs insulin aspart U-100 100 unit/mL 1 unit (0.01 mL) SC AC #10 mL 04/07/23 Rx subcutaneous solution (Novolog U-100 Insulin aspart) Hospital Stay Data Consultations 03/30/23 00:07 ED Decision to Admit Stat 03/30/23 08:00 Consult Pulmonology Routine Consult Urology Routine Diagnostic Imagining Performed Laboratory Results WBC 8.96 K/ul (4.8-10.8) 04/05/23 05:29 RBC 2.89 M/uL (4.70-6.10) L 04/05/23 05:29 Hgb 9.7 g/dl (14.0-18.0) L 04/05/23 05:29 Hct 28.0 % (42.0-52.0) L 04/05/23 05:29 MCV 96.9 fL (80.0-100.0) 04/05/23 05:29 MCH 33.6 pg (25.0-34.0) 04/05/23 05: MCHC 34.6 g/dL (32.0-36.0) 04/05/23 05:29 RDW Std Deviation 49.3 fL (36.4-46.3) H 04/05/23 05:29 RDW Coeff of Venancio 14.2 % (11.5-14.5) 04/05/23 05:29 Plt Count 189 K/uL (130-400) 04/05/23 05:29 MPV 8.7 fL (9.4-12.4) L 04/05/23 05:29 Immature Gran % (Auto) 0.7 % 04/05/23 05:29 Neut % (Auto) 69.8 % 04/05/23 05:29 Lymph % (Auto) 19.0 % 04/05/23 05:29 Morrison % (Auto) 9.3 % 04/05/23 05:29 Eos % (Auto) 0.9 % 04/05/23 05:29 Baso % (Auto) 0.3 % 04/05/23 05:29 Neut # (Auto) 6.26 K/uL (1.40-6.50) 04/05/23 05:29 Lymph # (Auto) 1.70 K/uL (1.20-3.40) 04/05/23 05:29 Morrison # (Auto) 0.83 K/uL (0.11-0.59) H 04/05/23 05:29 Eos # (Auto) 0.08 K/uL (0.00-0.50) 04/05/23 05:29 Baso # (Auto) 0.03 K/uL (0.00-0.20) 04/05/23 05:29 Immature Gran # (Auto) 0.06 K/uL (0.01-0.20) 04/05/23 05:29 Sodium 135 mmol/L (136-145) L 04/05/23 05:29 Potassium 4.1 mmol/L (3.5-5.1) 04/05/23 05:29 Chloride 101 mmol/L (98-107) 04/05/23 05:29 Carbon Dioxide 27 mmol/L (21-32) 04/05/23 05:29 Anion Gap 7 (3-11) 04/05/23 05:29 BUN 30 mg/dl (6-23) H 04/05/23 05:29 Creatinine 1.46 mg/dl (0.6-1.4) H 04/05/23 05:29 Est Cr Clr Drug Dosing 34.0 ml/min 04/05/23 05:29 Est GFR ( Amer) 49.8 ml/min 04/05/23 05:29 Est GFR (Non-Af Amer) 42.9 ml/min 04/05/23 05:29 BUN/Creatinine Ratio 20.5 (10-20) H 04/05/23 05:29 Glucose 177 mg/dl (70-99(Fasting)) H 04/05/23 05:29 POC Glucose 120 mg/dl (70-99) H 04/07/23 12:13 Estimat Average Glucose 192 mg/dl 03/30/23 07:49 Hemoglobin A1c 8.3 % (4.5-5.6) H 03/30/23 07:49 Calcium 9.1 mg/dl (8.6-10.3) 04/05/23 05:29 Phosphorus 2.8 mg/dl (2.5-4.9) 03/31/23 09:31 Magnesium 1.6 mg/dl (1.7-2.4) L 03/31/23 09:31 Total Bilirubin 0.7 mg/dl (0.2-1.0) 03/31/23 09:31 AST 26 U/L (13-39) 03/31/23 09:31 ALT 18 U/L (7-52) 03/31/23 09:31 Alkaline Phosphatase 45 U/L (34-104) 03/31/23 09:31 Total Creatine Kinase 178 U/L (30-223) 03/29/23 21:25 Troponin I High Sens 12.4 pg/ml (0-20) 03/29/23 21:25 Total Protein 6.1 gm/dl (6.0-8.3) 03/31/23 09:31 Albumin 3.3 gm/dl (3.4-5.0) L 03/31/23 09:31 Globulin 2.8 gm/dl (2.5-4.0) 03/31/23 09:31 Albumin/Globulin Ratio 1.2 (0.9-2) 03/31/23 09:31 TSH 4.656 uIu/ml (0.300-4.500) H 03/29/23 21:25 Free T4 1.03 ng/dl (0.61-1.60) 03/29/23 21:25 Urine Color Dark Yellow 03/30/23 01:30 Urine Appearance Cloudy (Clear) A 03/30/23 01:30 Urine pH 5.0 (4.5-7.5) 03/30/23 01:30 Ur Specific [place] 1.020 (1.000-1.030) 03/30/23 01:30 Urine Protein 2+ (Negative) H 03/30/23 01:30 Urine Glucose (UA) 2+ (Negative) H 03/30/23 01:30 Urine Ketones Negative (Negative) 03/30/23 01:30 Urine Blood 1+ (Negative) H 03/30/23 01:30 Urine Nitrite Negative (Negative) 03/30/23 01:30 Urine Bilirubin Negative (Negative) 03/30/23 01:30 Urine Urobilinogen Negative (Negative) 03/30/23 01:30 Ur Leukocyte Esterase 1+ (Negative) H 03/30/23 01:30 Urine WBC (Auto) >30 /hpf (0-5) H 03/30/23 01:30 Urine RBC (Auto) 0-4 /hpf (0-4) 03/30/23 01:30 U Hyaline Cast (Auto) 10-30 /lpf (0-5) H 03/30/23 01:30 U Epithel Cells (Auto) >30 /lpf (0-5) H 03/30/23 01:30 Urine Bacteria (Auto) Negative (Negative) 03/30/23 01:30 Ur Renal Epithelial Cell 10-20 /lpf (0-5) H 03/30/23 01:30 Granular Casts 5-10 /lpf (0) H 03/30/23 01:30 Other Casts Mixed Cell Cast /lpf (0) A 03/30/23 01:30 Urine Yeast Not Reportable 03/30/23 01:30 Nasal Screen MRSA (PCR) Negative (Negative) 04/02/23 Unknown Adenovirus (PCR) Not Detected (NotDetected) 03/29/23 21:25 B. pertussis DNA (PCR) Not Detected (NotDetected) 03/29/23 21:25 B.parapertussis DNA PCR Not Detected (NotDetected) 03/29/23 21:25 C. pneumoniae DNA (PCR) Not Detected (NotDetected) 03/29/23 21:25 Coronavirus OC43 (PCR) Not Detected (NotDetected) 03/29/23 21:25 Coronavirus HKU1 (PCR) Not Detected (NotDetected) 03/29/23 21:25 Coronavirus 229E (PCR) Not Detected (NotDetected) 03/29/23 21:25 SARS-CoV-2 (PCR) Not Detected (NotDetected) 03/29/23 21:25 Coronavirus NL63 (PCR) Not Detected (NotDetected) 03/29/23 21:25 Human Metapneumovir PCR Not Detected (NotDetected) 03/29/23 21:25 Influenza Type A (PCR) Not Detected (NotDetected) 03/29/23 21:25 Influenza Type B (PCR) Not Detected (NotDetected) 03/29/23 21:25 M. pneumoniae (PCR) Not Detected (NotDetected) 03/29/23 21:25 Parainfluenza 1 (PCR) Not Detected (NotDetected) 03/29/23 21:25 Parainfluenza 2 (PCR) Not Detected (NotDetected) 03/29/23 21:25 Parainfluenza 3 (PCR) Not Detected (NotDetected) 03/29/23 21:25 Parainfluenza 4 (PCR) Not Detected (NotDetected) 03/29/23 21:25 RSV (PCR) Not Detected (NotDetected) 03/29/23 21:25 Entero/Rhino (PCR) Not Detected (NotDetected) 03/29/23 21:25 Impressions Ankle X-Ray 03/29/23 21:57 XR ankle RT min 3V routine, XR foot RT min 3V routine CLINICAL HISTORY: fall. Right ankle and foot pain. COMPARISON STUDY: None. FINDINGS: Soft tissue swelling within the right ankle. Vascular calcifications are noted. There is a plantar heel spur. No acute fracture or dislocation within the right ankle or right foot. The bones are osteopenic. The Lisfranc joint is intact. Mild degenerative changes within the interphalangeal joints and first MTP joint. IMPRESSION: No fractures within the right ankle or right foot. ACT 112: Negative or not required by law. Electronically signed by: Reinaldo Nunez M.D. 03/29/2023 11:01 PM Foot X-Ray 03/29/23 21:57 XR ankle RT min 3V routine, XR foot RT min 3V routine CLINICAL HISTORY: fall. Right ankle and foot pain. COMPARISON STUDY: None. FINDINGS: Soft tissue swelling within the right ankle. Vascular calcifications are noted. There is a plantar heel spur. No acute fracture or dislocation within the right ankle or right foot. The bones are osteopenic. The Lisfranc joint is intact. Mild degenerative changes within the interphalangeal joints and first MTP joint. IMPRESSION: No fractures within the right ankle or right foot. ACT 112: Negative or not required by law. Electronically signed by: Reinaldo Nunez M.D. 03/29/2023 11:[address] 03/29/23 21:58 Exam(s): CT C SPINE EXAM: CT Cervical Spine Without Intravenous Contrast CLINICAL HISTORY: Trauma. TECHNIQUE: Axial computed tomography images of the cervical spine without intravenous contrast. CTDI is 21.4 mGy and DLP is 441.72 mGy-cm. Automated exposure control was utilized for the study. A dose lowering technique was utilized adhering to the principles of ALARA. COMPARISON: CT cervical spine 02/10/2023 FINDINGS: Vertebrae: The vertebral bodies are intact without acute osseous traumatic injury. Chronic anterior wedging is noted at C3 level, stable. Mild reversal of the normal cervical lordosis centered at C3. No anterolisthesis or retrolisthesis is identified. The facet joints are well aligned without subluxation or dislocation. The pedicles, transverse processes and spinous processes are intact. Discs/spinal canal/neural foramina: Moderately severe multilevel disc spondylosis with narrowing and marginal hypertrophic changes from C3-C4 through C6-C7. Multilevel bilateral chronic osseous neural foraminal encroachment. Soft tissues: Unremarkable. Lung apices: The included lung apices demonstrate no evidence for acute traumatic injury. IMPRESSION: No acute osseous traumatic injury involving the cervical spine. No appreciable alteration from the prior examination with chronic underlying degenerative changes noted. Electronically signed by: Shmuel Cage MD 03/29/23 23:[address] 03/29/23 21:58 Exam(s): CT HEAD Without Contrast EXAM: CT Head Without Intravenous Contrast CLINICAL HISTORY: Trauma. TECHNIQUE: Axial computed tomography images of the head/brain without intravenous contrast. CTDI is 38.43 mGy and DLP is 546.36 mGy-cm. Automated exposure control was utilized for the study. A dose lowering technique was utilized adhering to the principles of ALARA. COMPARISON: CT head without contrast dated 02/10/2023 FINDINGS: Brain: There are a few areas of decreased attenuation in the deep cerebral white matter consistent with mild small vessel ischemic/degenerative changes. The cerebral and cerebellar sulci are mildly prominent consistent with mild brain atrophy. No hemorrhage. Ventricles: Unremarkable. No ventriculomegaly. Bones/joints: Unremarkable. No acute fracture. Soft tissues: Unremarkable. Vasculature: Atherosclerotic disease involving the cavernous internal carotid arteries and distal vertebral arteries, stable. Sinuses: Unremarkable as visualized. No acute sinusitis. Mastoid air cells: Unremarkable as visualized. No mastoid effusion. IMPRESSION: No acute intracranial process or significant alteration from the previous examination with chronic underlying findings, as noted above. Electronically signed by: Shmuel Cage MD 03/29/23 23:39 PM Abdomen/Pelvis CT 03/29/23 22:20 Exam(s): CT ABDOMEN + PELVIS Without Contrast EXAM: CT Abdomen and Pelvis Without Intravenous Contrast CLINICAL HISTORY: fall, left flank hematoma. TECHNIQUE: Axial computed tomography images of the abdomen and pelvis without intravenous contrast. CTDI is 19.48 mGy and DLP is 940.89 mGy-cm. Automated exposure control was utilized for the study. A dose lowering technique was utilized adhering to the principles of ALARA. COMPARISON: No relevant prior studies available. FINDINGS: Lung bases: Findings regarding the lung bases, please see the CT report of the chest performed concurrently. ABDOMEN: Liver: Enhanced liver is intact without evidence for acute traumatic injury. Gallbladder and bile ducts: Unremarkable. No calcified stones. No ductal dilation. Pancreas: Unremarkable. No ductal dilation. Spleen: The spleen is grossly intact, accounting for limitations with lack of IV contrast. No perisplenic fluid. Adrenals: Unremarkable. No mass. Kidneys and ureters: The kidneys are intact without evidence for acute traumatic injury. No hydronephrosis. No perinephric retroperitoneal injury. Stomach and bowel: No evidence for traumatic bowel injury. No bowel obstruction. PELVIS: Appendix: No findings to suggest acute appendicitis. Bladder: There is an abnormal rounded mass extending from the posterior wall of the bladder, measuring 2.3 x 2.7 x 2.1 cm. This appears to be adjacent distinct from the prostate gland. No stones. Reproductive: The prostate gland is somewhat enlarged with internal calcifications. ABDOMEN and PELVIS: Intraperitoneal space: Unremarkable. No free air. No significant fluid collection. Retroperitoneal space: No retroperitoneal hematoma. Bones/joints: Mildly displaced left lateral sixth through eighth rib fractures noted. Subacute fracture involving the posterior costovertebral margin of the left 12th rib. Straightening of the normal lumbar lordosis. Multilevel disc spondylosis with narrowing and marginal hypertrophic changes. Soft tissues: Superficial subcutaneous fat stranding noted involving the left posterior lateral subcostal and abdominal soft tissues. No well- defined hematoma. There are less prominent changes along the lateral left hip. No subcutaneous emphysema or radiopaque foreign body. Vasculature: Atherosclerotic calcification of the abdominal aorta. No abdominal aortic aneurysm. Lymph nodes: Unremarkable. No enlarged lymph nodes. IMPRESSION: 1. Superficial subcutaneous fat stranding noted involving the left posterior lateral subcostal and abdominal soft tissues. No well-defined hematoma. There are less prominent changes along the lateral left hip. No subcutaneous emphysema or radiopaque foreign body. 2. Displaced left lateral rib fractures noted inferiorly. For full details, please see the CT report of the chest. 3. There is an abnormal presumed incidental rounded mass extending from the posterior wall of the bladder, measuring 2.3 x 2.7 x 2.1 cm. This appears to be adjacent distinct from the prostate gland. The differential considerations include a bladder neoplasm versus atypical pedunculated extension of tissue from the prostate gland. Recommend dedicated contrast imaging, when appropriate. Electronically signed by: Shmuel Cage MD 03/29/23 23:[address] 03/29/23 22:20 Exam(s): CT CHEST Without Contrast EXAM: CT Chest Without Intravenous Contrast CLINICAL HISTORY: fall, left flank hematoma. TECHNIQUE: Axial computed tomography images of the chest without intravenous contrast. CTDI is 19.42 mGy and DLP is 666.06 mGy-cm. Automated exposure control was utilized for the study. A dose lowering technique was utilized adhering to the principles of ALARA. COMPARISON: No relevant prior studies available. FINDINGS: Lungs: Curvilinear changes noted involving the posterior left lung. Less prominent dependent changes noted posteriorly on the right. No pulmonary contusive injury. Pleural space: Small volume left hemothorax with intermediate density fluid layering posteriorly on the left measuring up to 1.5 cm. No loculation. No pneumothorax. Heart: Surgical changes consistent with prior CABG. Cardiomegaly with extensive coronary artery calcification. No pericardial effusion. Mediastinum: No mediastinal traumatic injury. Bones/joints: Displaced left lateral fourth through seventh rib fractures. Nondisplaced left lateral eighth rib fracture. Remote left posterior medial 11th and 12th rib fractures. The thoracic vertebral bodies are intact. The sternum is intact with sternotomy wires. No displaced right rib fracture. No dislocation. Soft tissues: Unremarkable. Vasculature: The ascending aorta is borderline ectatic. The aortic arch and descending aorta are normal in caliber. Extensive atherosclerotic calcification. No thoracic aortic aneurysm. Lymph nodes: Unremarkable. No enlarged lymph nodes. IMPRESSION: 1. Displaced left lateral fourth through seventh rib fractures. Nondisplaced left lateral eighth rib fracture. 2. Small volume left hemothorax with intermediate density fluid layering posteriorly on the left measuring up to 1.5 cm. No loculation. No pneumothorax. 3. Curvilinear changes noted involving the posterior left lung, most consistent with compressive atelectasis. Less prominent dependent atelectatic changes noted posteriorly on the right. No pulmonary contusive injury. Electronically signed by: Shmuel Cage MD 03/29/23 23:48 PM Chest X-Ray 04/05/23 09:39 SINGLE VIEW CHEST CLINICAL HISTORY: Follow-up hemothorax. FINDINGS: An AP, portable, upright chest radiograph is compared to study dated 04/02/2023 and correlated with chest CT dated 03/29/2023. The patient is status post midline sternotomy. The heart is enlarged noting atherosclerotic calcification of the thoracic aorta. The pulmonary vasculature is noncongested. Chronic interstitial thickening is similar to previous. Left pleural fluid with left basilar consolidation is similar to previous. This likely corresponds to hemothorax when correlated with the prior chest CT. Scarring/atelectasis is noted at the right lung base. No pneumothorax is seen. The skeletal structures are osteopenic. Displaced left-sided rib fractures are again noted. Arthritic change is noted in the humeral heads. Superior subluxation of both humeral heads suggests chronic rotator cuff injuries. IMPRESSION: 1. Left-sided hemothorax with associated left basilar consolidation is similar to previous. 2. Acute displaced left-sided rib fractures are again noted. 3. The right lung appears clear. 4. Cardiomegaly without radiographic evidence of congestive failure. ACT 112: Negative or not required by law. Electronically signed by: Luc Johnson M.D. 04/05/2023 11:27 AM 03/29/23 21:58 CT cervical spine wo con Stat CT head/brain wo con Stat 03/29/23 22:20 CT Abd and Pelvis [CT abd pelvis wo con] Stat CT chest diagnostic wo con Stat Pending Results Patient Have Any Pending Studies at Discharge: Yes Discharge Instructions Given to Patient (Per Discharging Provider) Regarding hyperglycemia which leads to falls, patient will need insulin sliding scale before meals as follows * NovoLog per scale AC * Goal Range: Low 140 mg/dL - High 180 mg/dL * Correction Factor: 25 mg/dL/unit * Nutritional / Prandial insulin per carb ratio : None Please inform physician immediately if blood sugar is above 250. Always encouraged to use incentive spirometry at least every 4 hours. Please refer to accompanying hospital discharge summary for further details. Total Time Total Time Spent Total Time Spent (In Minutes): >30 minutes
== END 2023-04-07 15:40 | disposition home health service (06) | DRG 184 ==
LOC: ED 21:00 → SUATTDRO 03-30 03:57 → EDINP 03-30 03:57 → 2N 03-30 16:54